=== PATIENT | male | born 1985 | race African-American/Black ===

== ENCOUNTER 2017-07-29 12:14 | Emergency (ER) | payer MEDICAID, SELFPAY ==
[2017-07-29 12:15] VITALS: BP 160/108; PULSE 73; RESP 16; TEMP 36.7; O2SAT 100; BMI 34.2
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
[2017-07-29] MEDS: Ondansetron 4 MG/2 ML Vial IV (13:17)
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
== END 2017-07-29 15:58 | disposition home or self-care (01) ==
PROVIDERS: Emergency Provider Emergency Medicine; Family Provider Student in an Organized Health Care Education/Training Program; PCP Student in an Organized Health Care Education/Training Program
DX: M25.562 Pain in left knee (principal); M25.572 Pain in left ankle and joints of left foot; M25.571 Pain in right ankle and joints of right foot; M54.9 Dorsalgia, unspecified; V13.4XXA Pedal cycle driver injured in collision with car, pick-up truck or van in traffic accident, initial encounter; Y93.9 Activity, unspecified; Y92.9 Unspecified place or not applicable
CPT/HCPCS: 70450; 72072; 72100; 72125; 73564; 73610; 96374; 96375; 99285; A4216; J2405

== ENCOUNTER 2017-07-30 16:57 | Emergency (ER) | payer MEDICAID, SELFPAY ==
[2017-07-30 16:58] VITALS: BP 157/84; PULSE 75; RESP 16; TEMP 36.2; O2SAT 100; BMI 34.2
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
[2017-07-30 18:11] VITALS: PULSE 102; RESP 18; O2SAT 99
== END 2017-07-30 18:12 | disposition home or self-care (01) ==
PROVIDERS: Emergency Provider Emergency Medicine; Family Provider Student in an Organized Health Care Education/Training Program; PCP Student in an Organized Health Care Education/Training Program
DX: R51 Headache (principal); M21.42 Flat foot [pes planus] (acquired), left foot; V13.4XXA Pedal cycle driver injured in collision with car, pick-up truck or van in traffic accident, initial encounter; Y93.9 Activity, unspecified; Y92.9 Unspecified place or not applicable
CPT/HCPCS: 99282

== ENCOUNTER 2017-08-11 08:48 | Outpatient (RCR) | payer MEDICAID, SELFPAY ==
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
== END 2017-08-11 19:00 | disposition home or self-care (01) ==
LOC: OT 08:48
PROVIDERS: Family Provider Student in an Organized Health Care Education/Training Program; PCP Student in an Organized Health Care Education/Training Program; Visit Provider Student in an Organized Health Care Education/Training Program
DX: M54.41 Lumbago with sciatica, right side (principal); M54.42 Lumbago with sciatica, left side; G89.29 Other chronic pain; M79.1 Myalgia
CPT/HCPCS: 97750

== ENCOUNTER 2017-09-04 12:04 | Emergency (ER) | payer MEDICAID, SELFPAY ==
[2017-09-04 12:05] VITALS: BP 157/95; PULSE 70; RESP 28; TEMP 36.6; O2SAT 100; BMI 34.7
[2017-09-04 12:15] LABS: Bedside Glucose 62 mg/dL (70-110)
[2017-09-04 13:15] VITALS: BP 131/76; PULSE 60; RESP 20
[2017-09-04 13:46] LABS: Bedside Glucose 115 mg/dL (70-110)
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
--- NOTE | 2017-09-04 13:55 | ED.DEP ---
ED Disposition - Plan for ED Patient: Chief Complaint: Hypoglycemia Instructions: ED Diabetes Hypoglycemia Insulin React Referrals: Ranjit Azar DO [Primary Care Provider] - 3-5 Days
[2017-09-04 14:04] VITALS: BP 131/85; PULSE 71; RESP 18
== END 2017-09-04 14:08 | disposition home or self-care (01) ==
PROVIDERS: Emergency Provider Emergency Medicine; Family Provider Student in an Organized Health Care Education/Training Program; PCP Student in an Organized Health Care Education/Training Program
DX: E11.649 Type 2 diabetes mellitus with hypoglycemia without coma (principal); T38.3X5A Adverse effect of insulin and oral hypoglycemic [antidiabetic] drugs, initial encounter; Y92.9 Unspecified place or not applicable; G40.909 Epilepsy, unspecified, not intractable, without status epilepticus; Z79.84 Long term (current) use of oral hypoglycemic drugs; Z79.4 Long term (current) use of insulin; Z79.899 Other long term (current) drug therapy
CPT/HCPCS: 82962; 99283

== ENCOUNTER 2017-09-09 20:04 | Emergency (ER) | payer MEDICAID, SELFPAY ==
[2017-09-09 20:05] VITALS: BP 162/99; PULSE 89; RESP 18; TEMP 36.4; O2SAT 99; BMI 34.0
--- NOTE | 2017-09-09 20:32 | EKG12_ITS ---
Test Reason : MENTAL CLEARANCE Blood Pressure : / mmHG Vent. Rate : 076 BPM Atrial Rate : 076 BPM P-R Int : 150 ms QRS Dur : 088 ms QT Int : 362 ms P-R-T Axes : 061 040 032 degrees QTc Int : 407 ms Normal sinus rhythm Normal ECG Confirmed by AVTAR JOSEPH, TRINIDAD ([id number]), general expeditor [employer] ([id number]) on 09/12/2017 8:47:34 AM Referred By: WARD Confirmed By:TRINIDAD NOVA MD
--- NOTE | 2017-09-09 20:56 | ED.VISSUMM ---
- ER Visit Summary Date of Service: 09/09/17 Chief Complaint: Suicidal/homicidal History of Present Illness: The patient is a 32 M who states that he is feeling homicidal towards his and now having thoughts that he can no longer handle his life. The patient states that his is heavily involved in drug use he himself does not do drugs. He feels he is at his breaking point. He states that he has been trying to get her help but she is not willing to help her self. He has been working with a counselor. He states he was hospitalized years ago following a mental breakdown. He states that he feels close to that. He called the police who brought him to the hospital. Physical Examination: Afebrile vital signs are stable Gen: Well-nourished well-developed Head: Normocephalic atraumatic Eyes: Perrl EOMI ENT: TMs clear no rhinorrhea moist mucous membranes Neck: Supple no lymphadenopathy no JVD nontender CVS: Regular rate rhythm no murmurs normal S1-S2 Respiratory: No distress clear to auscultation bilaterally chest nontender Abdomen: Soft nontender nondistended normal bowel sounds no masses Back: Nontender Extremity: Nontender no edema Skin: Normal color no rash Neuro: alert orientated ?3 CN II-XII intact normal strength sensation reflexes gait cerebellar Psych: Patient appears depressed. The patient expresses suicidal and homicidal ideation Test Results: CBC CMP TSH tox negative EKG sinus rhythm. Emergency Department Course and Treatment: Patient was cleared for crisis evaluation. They are here to assess the patient Impression: 1. Suicidal ideation 2. Homicidal ideation 3. Depression This note was generated with [employer] dictation software. It may contain incorrect words, spelling, and punctuation that were not noted in review of the chart prior to signing <Todd Taylor - Last Filed: 09/10/17 00:15> - ER Visit Summary Date of Service: 09/10/17 Chief Complaint: [] History of Present Illness: The patient is a 32 M [] Physical Examination: [] Test Results: [] Emergency Department Course and Treatment: Patient signed out to me [place] [facility] [place] [facility] patient is safe to go home. Safety contract was made. He does have an appointment with his counselor on , in addition he will follow-up with [facility]. He will return if any worsening symptoms. All questions were answered. Treatment Plan: [] Disposition: [] Impression: [] This note was generated with [employer] dictation software. It may contain incorrect words, spelling, and punctuation that were not noted in review of the chart prior to signing <Russ Frances - Last Filed: 09/10/17 03:42> ED Disposition <Todd Taylor - Last Filed: 09/10/17 00:15> <Russ Frances - Last Filed: 09/10/17 03:42> - Plan for ED Patient: Disposition: Home or Assisted Living Chief Complaint: Suicidal Diagnosis: Mental health evaluation Instructions: ED Contract, No Harm Referrals: Ranjit Azar DO [Primary Care Provider] - Additional Instructions: Follow-up as discussed with mental health counselor. Return if any worsening symptoms.
[2017-09-09 21:04] VITALS: RESP 16
[2017-09-09 21:06] LABS: Bedside Glucose 76 mg/dL (70-110)
[2017-09-09 21:30] LABS: AST(SGOT) 36 U/L (15-37); Alanine Aminotransfer ALT/SGPT 22 U/L (16-61); Albumin, Serum 3.8 g/dL (3.2-5.0); Alkaline Phosphatase 60 U/L (45-117); Anion Gap 9 (5-15); BUN 16 mg/dL (7-18); BUN/Creat Ratio 18.1 RATIO (10-20); Bilirubin, Direct 0.11 mg/dL (0.00-0.30); Calcium,Total 8.9 mg/dL (8.5-10.1); Chloride 111 mmol/L (98-107); Creatinine, Serum 0.88 mg/dL (0.70-1.30); EST Glomerular Filtration Rate 105 mL/min (>60); Est Glom Filt Rate - Afr Amer 127 mL/min (>60); Estimated Creatinine Clearance 102.89 ml/min; Globulin 4.4 g/dL (2.2-4.2); Glucose 76 mg/dL (74-106); Potassium 3.7 mmol/L (3.5-5.1); Protein, Total 8.2 g/dL (6.4-8.2); Sodium Level 146 mmol/L (136-145); Thyroid Stim Hormone (TSH) 0.86 uIU/mL (0.358-3.74)
[2017-09-09 21:33] LABS: Absolute Lymphocyte Count 1.79 X10^3/ul (0.83-4.51); Absolute Neutrophil Count 4.9 X10^3/uL (2.0-7.7); Basophil# 0.02 X10^3/uL; Basophil% 0.3 % (0-1); Eosinophil# 0.04 X10^3/uL; Eosinophils% 0.6 % (0-5); Hematocrit 40.9 % (40-54); Lymphocyte # 1.79 X10^3/ul (4.0); Lymphocyte % 25.4 % (19-41); Mean Corp Hgb Conc 31.8 g/gl (32-36); Mean Corpuscular Hgb 26.3 pg (27.0-32.0); Mean Corpuscular Volume 82.8 fL (80-94); Mean Platelet Vol. 9.9 fl (6.2-12.0); Monocyte# 0.31 X10^3/uL; Monocyte% 4.4 % (0-10); Neutrophil # 4.88 X10^3/uL (2.7-7.7); Neutrophil % 69.2 % (47-70); Platelet Count 232 K/mm3 (150-450); RBC Distribution Width CV 13.5 % (11.6-14.6); RBC Distribution Width SD 40.8 fl (35.1-43.9); Red Blood Count 4.94 M/mm3 (4.6-6.2); White Blood Count 7.1 K/mm3 (4.4-11.0)
[2017-09-09 21:35] LABS: POSITIVE COUNT NO; POSITIVE DIFFERENTIAL NO; POSITIVE MORPHOLOGY NO
[2017-09-09 22:00] VITALS: RESP 18
[2017-09-09 23:00] VITALS: RESP 16
[2017-09-10] VITALS: RESP 16
[2017-09-10 00:14] LABS: Amphetamine Urine VISTA NEGATIVE (<1000 ng/mL); Barbiturate Urine VISTA NEGATIVE (< 200 ng/mL); Benzodiazepine Urine VISTA NEGATIVE (< 200 ng/mL); Cocaine Urine VISTA NEGATIVE (< 300 ng/mL); Ecstacy Urine VISTA NEGATIVE (< 500 ng/mL); Methadone Urine VISTA NEGATIVE (< 300 ng/mL); PCP Urine VISTA NEGATIVE (< 25 ng/mL); THC Urine VISTA NEGATIVE (< 50 ng/mL); Vista UDS pH Range 6
[2017-09-10 01:00] VITALS: RESP 14
[2017-09-10 02:00] VITALS: RESP 14
[2017-09-10 02:41] VITALS: BP 147/104; PULSE 71; RESP 14; O2SAT 98
[2017-09-10 03:52] VITALS: RESP 18
== END 2017-09-10 03:53 | disposition home or self-care (01) ==
PROVIDERS: Emergency Provider Emergency Medicine; Family Provider Student in an Organized Health Care Education/Training Program; PCP Student in an Organized Health Care Education/Training Program
DX: R45.851 Suicidal ideations (principal); R45.850 Homicidal ideations; F32.9 Major depressive disorder, single episode, unspecified; J45.909 Unspecified asthma, uncomplicated; E11.9 Type 2 diabetes mellitus without complications; G43.909 Migraine, unspecified, not intractable, without status migrainosus; Z79.4 Long term (current) use of insulin; Z79.84 Long term (current) use of oral hypoglycemic drugs; Z79.899 Other long term (current) drug therapy
CPT/HCPCS: 36415; 80048; 80076; 80307; 80320; 82962; 84443; 85025; 93005; 99283; G0480

== ENCOUNTER 2017-09-26 08:54 | Emergency (ER) | payer MEDICAID, SELFPAY ==
[2017-09-26 08:55] VITALS: BP 137/108; PULSE 75; RESP 16; TEMP 36.4; O2SAT 100; BMI 31.7
[2017-09-26] MEDS: DiphenhydrAMINE 50 MG/ML Syringe 25 MG IV (09:40)
[2017-09-26] MEDS: proCHLORPERazine 10 MG/2 ML Vial IV (09:41)
--- NOTE | 2017-09-26 10:01 | ED.DCSUM_ITS ---
- ER Visit Summary Date of Service: 09/26/17 Chief Complaint: Headache History of Present Illness: The patient is a 32 M presenting with headache which started gradually yesterday. Patient has history of migraine headaches and states this feels similar. He has nausea and vomiting. Denies fever. He has photophobia. Denies recent injury. He is also concerned about possibility of STDs. He states his recently cheated on him. He has no symptoms of penile discharge, rash, or other complaints. Physical Examination: Vitals are stable. Patient is afebrile. Alert no acute distress. HEENT exam is unremarkable. Neck is supple, no meningismus Lungs are clear and equal bilaterally. Heart is regular rate and rhythm. Abdomen is soft nontender nondistended. Extremities are unremarkable. Skin is warm and dry. No focal neurologic deficit. Remainder of exam is unremarkable. Emergency Department Course and Treatment: Patient was given Compazine, Benadryl with improvement. Gonorrhea and chlamydia are negative. HIV is pending. These results will not return until tomorrow. On reevaluation, patient is resting comfortably. Advised to follow-up with primary care physician. Advised return to ED for worsening complaints. Disposition: Discharge home Impression: Headache This note was generated with [employer] dictation software. It may contain incorrect words, spelling, and punctuation that were not noted in review of the chart prior to signing ED Disposition - Plan for ED Patient: Chief Complaint: Headache Referrals: Ranjit Azar DO [Primary Care Provider] -
[2017-09-26 11:42] LABS: Chlamydia Trachomatis by PCR Negative (Negative); Neisserai gonorrhoeae by PCR Negative (Negative); Probe Check PASS; Sample Adequacy Control PASS; Specimen Processing Control PASS
[2017-09-26 11:52] VITALS: BP 127/107; PULSE 75; RESP 12; O2SAT 99
[2017-09-26 12:02] VITALS: BP 127/107; PULSE 75; RESP 12; O2SAT 99
--- NOTE | 2017-09-26 12:05 | ED.DEP ---
ED Disposition - Plan for ED Patient: Chief Complaint: Headache Instructions: ED Headache Migraine Referrals: Ranjit Azar DO [Primary Care Provider] -
[2017-09-27 10:25] LABS: HIV - WCH Non-Reactive (Nonreactive)
== END 2017-09-26 12:11 | disposition home or self-care (01) ==
PROVIDERS: Emergency Provider Emergency Medicine; Family Provider Student in an Organized Health Care Education/Training Program; PCP Student in an Organized Health Care Education/Training Program
DX: R51 Headache (principal); R11.2 Nausea with vomiting, unspecified; H53.149 Visual discomfort, unspecified; J45.909 Unspecified asthma, uncomplicated; E11.9 Type 2 diabetes mellitus without complications; G43.909 Migraine, unspecified, not intractable, without status migrainosus; G47.30 Sleep apnea, unspecified; G40.909 Epilepsy, unspecified, not intractable, without status epilepticus; Z79.84 Long term (current) use of oral hypoglycemic drugs; Z79.4 Long term (current) use of insulin; Z79.899 Other long term (current) drug therapy
CPT/HCPCS: 86703; 87491; 87591; 96374; 96375; 99285; J7030

== ENCOUNTER 2017-10-07 01:32 | Emergency (ER) | payer MEDICAID, SELFPAY ==
[2017-10-07] VITALS (7 sets, daily range): BP systolic 127–150; BP diastolic 59–106; PULSE 66–83; RESP 15–20; TEMP 36.7; O2SAT 98–99; BMI 35.6
--- NOTE | 2017-10-07 01:55 | ED.RN ---
THIS NURSE ALLOWED PT TO KEEP HIS LEFT SHOE WITH HIS BRACE AND CELL PHONE. ALL OTHER BELONGINGS REMOVED FROM ROOM
--- NOTE | 2017-10-07 02:05 | ED.RN ---
CALLED [facility]SEL[facility]. NASCAR DRIVER SAID SHE WILL NOTIFY
--- NOTE | 2017-10-07 02:24 | ED.RN ---
ELIZABETH FROM CRISIS CALLED. SHE STATED SHE JUST GOT TO [facility] TO START ON ANOTHER PATIENT. SHE WILL CALL WHEN SHE IS LEAVING THERE IF SHE CAN MAKE IT BEFORE HER SHIFT IS OVER TODAY.
--- NOTE | 2017-10-07 02:30 | ED.VIS.GEN ---
History of Present Illness Chief Complaint: Suicidal Informant: Patient Onset: Today Associated Symptoms: vomiting off and on when stressed and pissed off Narrative: Patient states he called crisis because he was having suicidal thoughts, but he will not elaborate on anything else. He states he was not happy with the conversation that he had with general house worker over the phone, and tells me I do not like talking to people who talk in circles. So he tells me that he hung up on her. She apparently called the police, who [place] slipped him to the ER. He denies any physical illness recently. - Past Medical History (1) Depression Status: Chronic (2) Seizure Status: Chronic (3) Asthma Status: Chronic Comment: With severe insulin resistance (4) HTN (hypertension) Status: Chronic Past Medical History - Allergies and Home Meds Allergies/Adverse Reactions: Allergies hydrocodone bitartrate [From Vicodin] Allergy (Verified 10/07/17 01:33) Hives strawberry Allergy (Verified 10/07/17 01:33) Hives acetaminophen Adverse Reaction (Verified 10/07/17 01:33) Nausea/hives baclofen Adverse Reaction (Verified 10/07/17 01:33) IT MAKES HIM LIGHTHEADED AND SICK lactose Adverse Reaction (Verified 10/07/17 01:33) Nausea Penicillins Adverse Reaction (Verified 10/07/17 01:33) Nausea COCONUT Allergy (Uncoded 10/07/17 01:33) Hives Home Medications: Home Medications Medication Instructions Recorded Albuterol IH (ProAir) [Proair Hfa] 2 puff INHALATION Q6H PRN PRN 10/22/14 Cholecalciferol (VIT D3) [Vitamin 50,000 unit PO QWEEK 10/22/14 D3] Divalproex Sodium [Depakote] 500 mg PO TID 10/22/14 Metformin HCl [Glucophage] 1,000 mg PO BIDCM 10/22/14 Lisinopril [Zestril] 20 mg PO DAILY 03/06/15 Insulin Aspart [Novolog Flexpen] 50 units SC TIDCM 11/12/15 Duloxetine Hcl [Cymbalta] 30 mg PO DAILY 02/29/16 Omeprazole [Prilosec] 20 mg PO BID 02/29/16 Pregabalin [Lyrica] 75 mg PO BID 02/29/16 Triamcinolone 0.025% Cream 1 applic TOPICAL TID 02/29/16 [Kenalog] Indomethacin [Indocin] 25 mg PO TIDCM 09/10/17 Insulin Degludec [Tresiba 150 unit SQ DAILY 09/10/17 Flextouch U-200] Liraglutide [Victoza 2-Zhao] 0.6 mg SQ DAILY 09/10/17 Nadolol 40 mg PO DAILY 09/10/17 Verapamil [Calan] 40 mg PO TID 09/10/17 Primary Care Physician: Ranjit Azar DO [Primary Care Provider] - Surgical History: tonsillectomy, - Smoking Status: Unknown if ever smoked Drugs: None - Family History Paternal Family History: Reports: Unknown Maternal Family History: Reports: Unknown Review of Systems All systems negative except as indicated Gastrointestinal: Reports: Vomiting Psych: Reports: Depression, Suicidal thoughts Physical Exam Vital Signs/Narrative: Vital Signs Temp Pulse Resp BP Pulse Ox 10/07/17 01:34 98.1 F 83 17 150/106 H 98 Inital Vital Signs reviewed: Yes General: Well nourished, Well developed, Obese - mildly Head: Normocephalic, Atraumatic Eyes: Perrl, EOMI ENT: Moist mucous membranes, No rhinorrhea Neck: Supple, Nontender Cardiovascular: Regular rate, Regular rhythm, No murmurs Respiratory: No distress, CTA bilaterally, Chest nontender Abdomen: Soft, Nontender, Nondistended, Normal bowel sounds Back: Nontender, Normal Inspection Extremities: Nontender, No edema Skin: Normal color, No rash. Negative for: Trauma Neurological: Alert, Oriented x3, Cranial nerves II-XII grossly intact, Normal Strength, Normal Sensation Psychological: - - flat affect. poor eye contact. paucity of speech. Diagnostic/Tx/Re-eval Laboratory Results 10/07/17 10/07/17 10/07/17 Range/Units 02:20 02:20 02:20 WBC 7.6 (4.4-11.0) K/mm3 RBC 4.96 (4.6-6.2) M/mm3 Hgb 13.3 (13.0-16.5) g/dl Hct 40.5 (40-54) % MCV 81.7 (80-94) fL MCH 26.8 L (27.0-32.0) pg MCHC 32.8 (32-36) g/gl RDW 13.2 (11.6-14.6) % RDW Differential 39.4 (35.1-43.9) fl Plt Count 227 (150-450) K/mm3 MPV 10.5 (6.2-12.0) fl Immature Gran % (Auto) 0.100 (0.0-0.9) % Neut % (Auto) 68.4 (47-70) % Lymph % (Auto) 23.6 (19-41) % Mcmullen % (Auto) 7.1 (0-10) % Eos % (Auto) 0.4 (0-5) % Baso % (Auto) 0.4 (0-1) % Absolute Neuts (auto) 5.2 (2.0-7.7) X10^3/uL Absolute Lymphs (auto) 1.79 (0.83-4.51) X10^3/ul Total Counted Not Reportable Sodium Cancelled Potassium Cancelled Chloride Cancelled Carbon Dioxide Cancelled Anion Gap Cancelled BUN Cancelled Creatinine Cancelled Estim Creat Clear Calc Cancelled Est GFR (MDRD) Af Amer Cancelled Est GFR (MDRD) Non-Af Cancelled BUN/Creatinine Ratio Cancelled Glucose Cancelled Calcium Cancelled Total Bilirubin Cancelled AST Cancelled ALT Cancelled Alkaline Phosphatase Cancelled Total Protein Cancelled Albumin Cancelled Globulin Cancelled Albumin/Globulin Ratio Cancelled Urine Opiates Screen (< 300 ng/mL) Urine Methadone Screen (< 300 ng/mL) Ur Barbiturates Screen (< 200 ng/mL) Ur Phencyclidine Scrn (< 25 ng/mL) Ur Amphetamines Screen (<1000 ng/mL) U Methamphetamin-MDMA (< 500 ng/mL) U Benzodiazepines Scrn (< 200 ng/mL) Urine Cocaine Screen (< 300 ng/mL) U Cannabinoids Screen (< 50 ng/mL) Ur Drug Screen Comment Ethyl Alcohol Cancelled 10/07/17 10/07/17 10/07/17 Range/Units 02:40 02:40 04:07 WBC (4.4-11.0) K/mm3 RBC (4.6-6.2) M/mm3 Hgb (13.0-16.5) g/dl Hct (40-54) % MCV (80-94) fL MCH (27.0-32.0) pg MCHC (32-36) g/gl RDW (11.6-14.6) % RDW Differential (35.1-43.9) fl Plt Count (150-450) K/mm3 MPV (6.2-12.0) fl Immature Gran % (Auto) (0.0-0.9) % Neut % (Auto) (47-70) % Lymph % (Auto) (19-41) % Mcmullen % (Auto) (0-10) % Eos % (Auto) (0-5) % Baso % (Auto) (0-1) % Absolute Neuts (auto) (2.0-7.7) X10^3/uL Absolute Lymphs (auto) (0.83-4.51) X10^3/ul Total Counted Sodium 140 Potassium 3.6 Chloride 106 Carbon Dioxide 27.0 Anion Gap 7 BUN 11 Creatinine 0.83 Estim Creat Clear Calc 109.09 Est GFR (MDRD) Af Amer 137 Est GFR (MDRD) Non-Af 113 BUN/Creatinine Ratio 13.3 Glucose 94 Calcium 8.6 Total Bilirubin 0.20 AST 45 H ALT 22 Alkaline Phosphatase 67 Total Protein 8.4 H Albumin 3.6 Globulin 4.8 H Albumin/Globulin Ratio 0.8 L Urine Opiates Screen NEGATIVE (< 300 ng/mL) Urine Methadone Screen NEGATIVE (< 300 ng/mL) Ur Barbiturates Screen NEGATIVE (< 200 ng/mL) Ur Phencyclidine Scrn NEGATIVE (< 25 ng/mL) Ur Amphetamines Screen NEGATIVE (<1000 ng/mL) U Methamphetamin-MDMA NEGATIVE (< 500 ng/mL) U Benzodiazepines Scrn NEGATIVE (< 200 ng/mL) Urine Cocaine Screen NEGATIVE (< 300 ng/mL) U Cannabinoids Screen NEGATIVE (< 50 ng/mL) Ur Drug Screen Comment Ethyl Alcohol 7.0 - Medical Decision Making Patient become somewhat agitated because he wanted to leave and was not allowed to. He was redirectable and did not require physical or chemical intervention. He is medically cleared for crisis evaluation. Crisis evaluated him and determine that given his threats of suicide and wanting to that he told both general house worker over the phone in the police, he is denying this now, however he is not reacting healthfully to the situation he is in, which is that his is a drug addict and brings other drug addicts into the house, and he does not want to leave her. She thinks that he needs to be pink slip to a psychiatric hospital, which is against the patient wishes because he does not think that is going to help the situation. I agree that this will help him, although it may not help his social situation. He is accepted to [place] by Dr. Pimentel, however under the pretense that we get a medically unnecessary acute valproic acid level. ED Disposition - Plan for ED Patient: Disposition: [facility] Chief Complaint: Suicidal Diagnosis: Suicidal ideation Referrals: Ranjit Azar DO [Primary Care Provider] -
[2017-10-07 02:31] LABS: Absolute Lymphocyte Count 1.79 X10^3/ul (0.83-4.51); Absolute Neutrophil Count 5.2 X10^3/uL (2.0-7.7); Basophil# 0.03 X10^3/uL; Basophil% 0.4 % (0-1); Eosinophil# 0.03 X10^3/uL; Eosinophils% 0.4 % (0-5); Hematocrit 40.5 % (40-54); Hemoglobin 13.3 g/dl (13.0-16.5); Lymphocyte # 1.79 X10^3/ul (4.0); Lymphocyte % 23.6 % (19-41); Mean Corp Hgb Conc 32.8 g/gl (32-36); Mean Corpuscular Hgb 26.8 pg (27.0-32.0); Mean Corpuscular Volume 81.7 fL (80-94); Mean Platelet Vol. 10.5 fl (6.2-12.0); Monocyte# 0.54 X10^3/uL; Monocyte% 7.1 % (0-10); Neutrophil # 5.18 X10^3/uL (2.7-7.7); Neutrophil % 68.4 % (47-70); Platelet Count 227 K/mm3 (150-450); RBC Distribution Width CV 13.2 % (11.6-14.6); RBC Distribution Width SD 39.4 fl (35.1-43.9); Red Blood Count 4.96 M/mm3 (4.6-6.2); White Blood Count 7.6 K/mm3 (4.4-11.0)
[2017-10-07 02:32] LABS: POSITIVE COUNT NO; POSITIVE DIFFERENTIAL NO; POSITIVE MORPHOLOGY NO
[2017-10-07 03:56] LABS: ALB/GLOB Ratio 0.8 RATIO (0.9-2.4); AST(SGOT) 45 U/L (15-37); Alanine Aminotransfer ALT/SGPT 22 U/L (16-61); Albumin, Serum 3.6 g/dL (3.2-5.0); Alkaline Phosphatase 67 U/L (45-117); Anion Gap 7 (5-15); BUN 11 mg/dL (7-18); BUN/Creat Ratio 13.3 RATIO (10-20); Calcium,Total 8.6 mg/dL (8.5-10.1); Chloride 106 mmol/L (98-107); Creatinine, Serum 0.83 mg/dL (0.70-1.30); EST Glomerular Filtration Rate 113 mL/min (>60); Est Glom Filt Rate - Afr Amer 137 mL/min (>60); Estimated Creatinine Clearance 109.09 ml/min; Globulin 4.8 g/dL (2.2-4.2); Glucose 94 mg/dL (74-106); Potassium 3.6 mmol/L (3.5-5.1); Protein, Total 8.4 g/dL (6.4-8.2); Sodium Level 140 mmol/L (136-145)
--- NOTE | 2017-10-07 04:29 | ED.RN ---
ELIZABETH FROM CRISIS CALLED. SHE STATED SHE IS LEAVING [facility] NOW TO COME SEE PT.
[2017-10-07 04:35] LABS: Amphetamine Urine VISTA NEGATIVE (<1000 ng/mL); Barbiturate Urine VISTA NEGATIVE (< 200 ng/mL); Benzodiazepine Urine VISTA NEGATIVE (< 200 ng/mL); Cocaine Urine VISTA NEGATIVE (< 300 ng/mL); Ecstacy Urine VISTA NEGATIVE (< 500 ng/mL); Methadone Urine VISTA NEGATIVE (< 300 ng/mL); PCP Urine VISTA NEGATIVE (< 25 ng/mL); THC Urine VISTA NEGATIVE (< 50 ng/mL); Vista UDS pH Range 7
--- NOTE | 2017-10-07 05:05 | ED.RN ---
ELIZABETH IS HERE TO SEE PTSabino
[2017-10-07 07:38] LABS: Valproic Acid (Depakene) Level 9 ug/mL (50-100)
--- NOTE | 2017-10-07 08:14 | ED.DEP ---
ED Disposition - Plan for ED Patient: Disposition: Home or Assisted Living Chief Complaint: Suicidal Diagnosis: Suicidal thoughts, Reaction, situational, acute, to stress Instructions: ED Contract, No Harm, ED Depression Referrals: Counseling,Center [GROUP OF PHYSICIANS] - As soon as possible
== END 2017-10-07 08:36 | disposition home or self-care (01) ==
PROVIDERS: Emergency Provider Emergency Medicine; Family Provider Student in an Organized Health Care Education/Training Program; PCP Student in an Organized Health Care Education/Training Program
DX: R45.851 Suicidal ideations (principal); R11.10 Vomiting, unspecified; F32.9 Major depressive disorder, single episode, unspecified; G40.909 Epilepsy, unspecified, not intractable, without status epilepticus; J45.909 Unspecified asthma, uncomplicated; I10 Essential (primary) hypertension; E66.9 Obesity, unspecified; Z79.84 Long term (current) use of oral hypoglycemic drugs; Z79.4 Long term (current) use of insulin; Z79.899 Other long term (current) drug therapy
CPT/HCPCS: 36415; 80053; 80164; 80307; 80320; 85025; 99285; G0480

== ENCOUNTER 2017-11-20 17:50 | Emergency (ER) | payer MEDICAID, SELFPAY ==
[2017-11-20 17:51] VITALS: BP 148/95; PULSE 111; RESP 16; TEMP 36.3; O2SAT 97; BMI 34.9
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
[2017-11-20 21:44] VITALS: BP 167/78; PULSE 74; RESP 16; O2SAT 97
== END 2017-11-20 21:47 | disposition home or self-care (01) ==
PROVIDERS: Emergency Provider Emergency Medicine; Family Provider Student in an Organized Health Care Education/Training Program; PCP Student in an Organized Health Care Education/Training Program
DX: S00.03XA Contusion of scalp, initial encounter (principal); R11.0 Nausea; R42 Dizziness and giddiness; R40.2410 Glasgow coma scale score 13-15, unspecified time; W22.8XXA Striking against or struck by other objects, initial encounter; Y93.9 Activity, unspecified; Y92.009 Unspecified place in unspecified non-institutional (private) residence as the place of occurrence of the external cause; J45.909 Unspecified asthma, uncomplicated; G40.909 Epilepsy, unspecified, not intractable, without status epilepticus; G43.909 Migraine, unspecified, not intractable, without status migrainosus; G47.33 Obstructive sleep apnea (adult) (pediatric); Z79.4 Long term (current) use of insulin; Z79.84 Long term (current) use of oral hypoglycemic drugs; Z79.899 Other long term (current) drug therapy
CPT/HCPCS: 70450; 99283

== ENCOUNTER 2017-12-03 18:11 | Emergency (ER) | payer MEDICAID, SELFPAY ==
[2017-12-03 18:13] VITALS: BP 158/103; PULSE 95; RESP 16; TEMP 36.8; O2SAT 100; BMI 34.2
[2017-12-03 18:26] LABS: Bedside Glucose 115 mg/dL (70-110)
--- NOTE | 2017-12-03 18:43 | ED.DCSUM_ITS ---
- ER Visit Summary Date of Service: 12/03/17 Chief Complaint: Wants blood sugar checks. History of Present Illness: The patient is a 32 M presenting wanting his blood sugar checked. Patient states he woke up this morning feeling dizzy, like his blood sugar was low. He was unable to find his glucometer. He went back to sleep. When he woke up he was still feeling dizzy. He took his metformin but did not take his insulin. He states he did not have a chance to eat today. Denies other complaints. Physical Examination: Vitals are stable. Patient is afebrile. Alert no acute distress. HEENT exam is unremarkable. Neck is supple. Lungs are clear and equal bilaterally. Heart is regular rate and rhythm. Abdomen is soft nontender nondistended. Extremities are unremarkable. Skin is warm and dry. No focal neurologic deficit. Remainder of exam is unremarkable. Emergency Department Course and Treatment: BGT 115. Patient is given IV fluids. He was given food in the emergency department. His repeat blood sugar was 122. He is feeling improved and is requesting to go home. Advised to follow-up with his primary care physician. Advised return to ED if worsening complaints. Disposition: Discharge home Impression: Dizziness, improved This note was generated with [employer] dictation software. It may contain incorrect words, spelling, and punctuation that were not noted in review of the chart prior to signing ED Disposition - Plan for ED Patient: Chief Complaint: General Illness Instructions: Hypoglycemia (Low Blood Sugar) Referrals: Ranjit Azar DO [Primary Care Provider] -
[2017-12-03 19:39] LABS: Anion Gap 6 (5-15); BUN 9 mg/dL (7-18); Calcium,Total 9.2 mg/dL (8.5-10.1); Chloride 106 mmol/L (98-107); EST Glomerular Filtration Rate 103 mL/min (>60); Est Glom Filt Rate - Afr Amer 124 mL/min (>60); Glucose 107 mg/dL (74-106); Potassium 3.7 mmol/L (3.5-5.1); Sodium Level 137 mmol/L (136-145)
--- NOTE | 2017-12-03 19:41 | ED.RN ---
pt reports intermittent dizziness at home, and reports falling at home from standing position. denies loc. reports intermittent dizziness. i think it is my blood sugar.
--- NOTE | 2017-12-03 19:55 | ED.DEP ---
ED Disposition - Plan for ED Patient: Chief Complaint: General Illness Instructions: Hypoglycemia (Low Blood Sugar) Referrals: Ranjit Azar DO [Primary Care Provider] -
[2017-12-03 20:29] VITALS: BP 147/99; PULSE 80; RESP 14; O2SAT 99
[2017-12-03 20:36] LABS: Bedside Glucose 122 mg/dL (70-110)
[2017-12-03 20:55] VITALS: BP 147/99; PULSE 78; RESP 17; O2SAT 99
== END 2017-12-03 20:56 | disposition home or self-care (01) ==
PROVIDERS: Emergency Provider Emergency Medicine; Family Provider Student in an Organized Health Care Education/Training Program; PCP Student in an Organized Health Care Education/Training Program
DX: R42 Dizziness and giddiness (principal); J45.909 Unspecified asthma, uncomplicated; K21.9 Gastro-esophageal reflux disease without esophagitis; E11.9 Type 2 diabetes mellitus without complications; I10 Essential (primary) hypertension; F32.9 Major depressive disorder, single episode, unspecified; G40.909 Epilepsy, unspecified, not intractable, without status epilepticus; Z79.84 Long term (current) use of oral hypoglycemic drugs; Z79.4 Long term (current) use of insulin; Z79.899 Other long term (current) drug therapy
CPT/HCPCS: 80048; 82962; 99283; J7030; J7040; A4216

== ENCOUNTER 2017-12-25 10:14 | Emergency (ER) | payer MEDICAID, SELFPAY ==
[2017-12-25 10:15] VITALS: BP 136/93; PULSE 105; RESP 18; TEMP 36.8; O2SAT 99; BMI 34.5
[2017-12-25] MEDS: Ketorolac 60 MG/2 ML Vial IM (11:13)
[2017-12-25 11:15] LABS: Bedside Glucose 110 mg/dL (70-110)
[2017-12-25 11:26] LABS: Anion Gap 6 (5-15); BUN 10 mg/dL (7-18); BUN/Creat Ratio 11.2 RATIO (10-20); Calcium,Total 9.6 mg/dL (8.5-10.1); Chloride 108 mmol/L (98-107); Creatinine, Serum 0.89 mg/dL (0.70-1.30); EST Glomerular Filtration Rate 104 mL/min (>60); Est Glom Filt Rate - Afr Amer 125 mL/min (>60); Estimated Creatinine Clearance 101.73 ml/min; Glucose 109 mg/dL (74-106); Sodium Level 138 mmol/L (136-145)
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
[2017-12-25 13:00] LABS: Valproic Acid (Depakene) Level 7 ug/mL (50-100)
--- NOTE | 2017-12-25 13:41 | CM.ED ---
Social Work Note Referral from physician and RN for concern with living situation. Introduced self and role to pt. Pt report to live in a privately owned home with his , and then two of their friends. Actively listened to pt vent for over an hour regarding his marriage, work, and health. Engaged pt in Strengths Perspective to identify positive attributes for confidence building. Pt is established with a counselor at the counseling center and has an appointment this afternoon at 1730 with Libia Rodriguez. Pt reports that he used to have a correctional counselor/case manager, but does not any longer. Expresses concern with transportation needs and educate to correctional counselor/case managermanager drug through [facility] as well as the voucher program at [place]. Pt denies SI or HI or any active plan. Support provided. No further needs. Placed call to [facility] and requested that case management be established for assistance. Jennifer Batres, BIOMEDICAL SPECIALIST, [employer]ER
[2017-12-25 14:01] VITALS: BP 147/94
== END 2017-12-25 14:02 | disposition home or self-care (01) ==
PROVIDERS: Emergency Provider Emergency Medicine; Family Provider Student in an Organized Health Care Education/Training Program; PCP Student in an Organized Health Care Education/Training Program
DX: R51 Headache (principal); F32.9 Major depressive disorder, single episode, unspecified; F41.9 Anxiety disorder, unspecified; E11.9 Type 2 diabetes mellitus without complications; I10 Essential (primary) hypertension; G40.909 Epilepsy, unspecified, not intractable, without status epilepticus; Z79.4 Long term (current) use of insulin; Z79.84 Long term (current) use of oral hypoglycemic drugs; Z79.899 Other long term (current) drug therapy; Z72.0 Tobacco use
CPT/HCPCS: 36415; 80048; 80164; 82962; 96372; 99283

== ENCOUNTER 2018-01-03 09:12 | Emergency (ER) | payer MEDICAID, SELFPAY ==
[2018-01-03 09:13] VITALS: BP 157/94; PULSE 101; RESP 15; TEMP 36.6; O2SAT 100; BMI 37.0
--- NOTE | 2018-01-03 09:50 | RAD_ITS ---
STUDY: X-RAY CHEST REASON FOR EXAM: Male, 32 years old. Syncopal episode. TECHNIQUE: AP and lateral views of the chest. COMPARISON: Comparison is made with prior study dated February 23, 2016. FINDINGS: EKG electrodes are seen. The lungs are clear and expanded. There is no demonstrated pleural abnormality. Normal size heart. Normal mediastinum and alanis. Normal visualized pulmonary arteries. Normal visualized aortic arch and descending thoracic aorta. There are mild degenerative changes of the visualized thoracic spine. Normal visualized ribs, clavicles, and shoulders. There is no demonstrated abnormality of the visualized soft tissue structures of the upper abdomen. RAD/Chest PA and Lateral IMPRESSION: Normal x-ray examination of the chest. Electronically Signed: Florentin Quan MD at 11:22 EDT Tel [phone], Service support ,
--- NOTE | 2018-01-03 09:50 | EKG12_ITS ---
Test Reason : GEN ILLNESS Blood Pressure : / mmHG Vent. Rate : 077 BPM Atrial Rate : 077 BPM P-R Int : 148 ms QRS Dur : 096 ms QT Int : 374 ms P-R-T Axes : 051 039 032 degrees QTc Int : 423 ms Sinus rhythm with marked sinus arrhythmia Otherwise normal ECG Confirmed by SHUBHAM JOSEPH, DAO ([id number]), greeting card editor [employer] ([id number]) on 01/08/2018 1:42:44 PM Referred By: KEVEN Confirmed By:DAO JALLOH MD
[2018-01-03 10:41] LABS: Bacteria 0 SEEN /hpf (None Seen); Mucous, Urine 0 SEEN /hpf (<or=2+); Red Blood Cells-Urine 0 SEEN /hpf (0-5); Squamous Epithelial Cells - UA 0 SEEN /hpf (0-5); White Blood Cells 0 SEEN /hpf (0-5)
[2018-01-03 10:44] LABS: Color, Urine Yellow (Yellow); Glucose, Dipstick 1000 mg/dl (Normal); Ketone-Dipstick 15 mg/dl (Negative); Leukocyte Esterase-Dipstick Negative /ul (Negative); Nitrite-Dipstick Negative (Negative); Occult Blood-Urine Negative /ul (Negative); Protein-Dipstick 30 mg/dl (Negative); Urine Bilirubin Dipstick Negative (Negative); Urine Clarity Clear (Clear); Urine Urobilinogen Normal (Normal)
[2018-01-03] MEDS: Ondansetron 4 MG/2 ML Vial IV (10:52)
[2018-01-03] MEDS: 0.9% Normal Saline 1,000 ML 1000 ML IV (10:52)
[2018-01-03 10:57] LABS: Absolute Lymphocyte Count 1.39 X10^3/ul (0.83-4.51); Absolute Neutrophil Count 6.9 X10^3/uL (2.0-7.7); Basophil# 0.02 X10^3/uL; Basophil% 0.2 % (0-1); Hemoglobin 12.2 g/dl (13.0-16.5); Lymphocyte # 1.39 X10^3/ul (4.0); Lymphocyte % 16.3 % (19-41); Mean Corp Hgb Conc 32.1 g/gl (32-36); Mean Corpuscular Hgb 26.9 pg (27.0-32.0); Mean Corpuscular Volume 83.9 fL (80-94); Monocyte# 0.29 X10^3/uL; Monocyte% 3.4 % (0-10); Neutrophil # 6.85 X10^3/uL (2.7-7.7); Neutrophil % 80.1 % (47-70); POSITIVE COUNT NO; POSITIVE DIFFERENTIAL NO; POSITIVE MORPHOLOGY NO; Platelet Count 201 K/mm3 (150-450); RBC Distribution Width SD 39.6 fl (35.1-43.9); Red Blood Count 4.53 M/mm3 (4.6-6.2); White Blood Count 8.6 K/mm3 (4.4-11.0)
[2018-01-03 11:16] LABS: Anion Gap 8 (5-15); BUN 10 mg/dL (7-18); BUN/Creat Ratio 10.5 RATIO (10-20); Chloride 105 mmol/L (98-107); Creatinine, Serum 0.95 mg/dL (0.70-1.30); EST Glomerular Filtration Rate 96 mL/min (>60); Est Glom Filt Rate - Afr Amer 116 mL/min (>60); Estimated Creatinine Clearance 95.31 ml/min; Glucose 151 mg/dL (74-106); Potassium 4.1 mmol/L (3.5-5.1); Sodium Level 142 mmol/L (136-145)
[2018-01-03 11:22] VITALS: BP 137/86; PULSE 75; RESP 30; O2SAT 98
--- NOTE | 2018-01-03 11:28 | ED.VISSUMM ---
- ER Visit Summary Date of Service: 01/03/18 Chief Complaint: Multiple complaints History of Present Illness: The patient is a 32 M who presents with chief complaint of I am falling apart. It is difficult to ascertain what exactly brought him in today. He complains of chronic back pain. He complains of bilateral feet tingling for many months. He states he did feel short of breath earlier this morning but that this improved with an inhaler. He had some nausea and vomiting this morning as well. He denies fevers or chest pain. He denies recent illness. He was at work today and states that he just could not continue to work so they advised him to go get checked out. Physical Examination: Afebrile initial heart rate 1 1 vitals otherwise normal Heart regular slightly tachycardic Lungs are clear Abdomen soft Alert Test Results: EKG shows sinus rhythm at a rate of 77. Chest x-ray normal. Labs notable for hemoglobin 12.2, glucose 151, anion gap is normal. Urinalysis shows glucose otherwise normal. Emergency Department Course and Treatment: Patient was treated with IV fluids. On reevaluation he is resting comfortably. He presents with multiple chronic problems. His larger concern is the tingling in his feet. I advised that given that this been going on for many months and he is diabetic I suspect it is related to peripheral neuropathy. He states he has not seen his primary care physician for this. I advised that he follow-up with his primary care physician as soon as possible. He understands return for new or worsening symptoms. He was discharged. Treatment Plan: [] Disposition: Discharge Impression: Peripheral neuropathy Vomiting Shortness of breath This note was generated with [employer] dictation software. It may contain incorrect words, spelling, and punctuation that were not noted in review of the chart prior to signing ED Disposition - Plan for ED Patient: Chief Complaint: General Illness Referrals: Ranjit Azar DO [Primary Care Provider] -
--- NOTE | 2018-01-03 11:30 | ED.DEP ---
ED Disposition - Plan for ED Patient: Chief Complaint: General Illness Instructions: ED Neuropathy Peripheral, ED Nausea Vomiting Referrals: Ranjit Azar DO [Primary Care Provider] -
[2018-01-03 11:41] VITALS: BP 137/86; PULSE 64; RESP 18; O2SAT 99
== END 2018-01-03 11:41 | disposition home or self-care (01) ==
PROVIDERS: Emergency Provider Emergency Medicine; Family Provider Student in an Organized Health Care Education/Training Program; PCP Student in an Organized Health Care Education/Training Program
DX: E11.42 Type 2 diabetes mellitus with diabetic polyneuropathy (principal); R11.2 Nausea with vomiting, unspecified; R06.00 Dyspnea, unspecified; M54.9 Dorsalgia, unspecified; G89.29 Other chronic pain; I10 Essential (primary) hypertension; G40.909 Epilepsy, unspecified, not intractable, without status epilepticus; Z79.4 Long term (current) use of insulin; Z79.84 Long term (current) use of oral hypoglycemic drugs; Z79.899 Other long term (current) drug therapy
CPT/HCPCS: 71046; 80048; 81001; 85025; 93005; 96361; 96374; 99285; J7030; J2405

== ENCOUNTER 2018-01-11 11:15 | Emergency (ER) | payer MEDICAID, SELFPAY ==
[2018-01-11 11:16] VITALS: BP 143/101; PULSE 85; RESP 16; TEMP 36.6; O2SAT 100; BMI 34.2
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
[2018-01-11 12:02] LABS: Absolute Lymphocyte Count 1.73 X10^3/ul (0.83-4.51); Absolute Neutrophil Count 3.1 X10^3/uL (2.0-7.7); Basophil# 0.02 X10^3/uL; Basophil% 0.4 % (0-1); Eosinophil# 0.02 X10^3/uL; Eosinophils% 0.4 % (0-5); Hematocrit 36.5 % (40-54); Hemoglobin 11.8 g/dl (13.0-16.5); Lymphocyte # 1.73 X10^3/ul (4.0); Lymphocyte % 33.5 % (19-41); Mean Corp Hgb Conc 32.3 g/gl (32-36); Mean Corpuscular Hgb 26.9 pg (27.0-32.0); Mean Corpuscular Volume 83.1 fL (80-94); Mean Platelet Vol. 10.7 fl (6.2-12.0); Monocyte# 0.27 X10^3/uL; Monocyte% 5.2 % (0-10); Neutrophil # 3.13 X10^3/uL (2.7-7.7); Neutrophil % 60.5 % (47-70); Platelet Count 225 K/mm3 (150-450); RBC Distribution Width CV 13.1 % (11.6-14.6); Red Blood Count 4.39 M/mm3 (4.6-6.2); White Blood Count 5.2 K/mm3 (4.4-11.0)
[2018-01-11 12:08] LABS: POSITIVE COUNT NO; POSITIVE DIFFERENTIAL NO; POSITIVE MORPHOLOGY NO
[2018-01-11 12:13] LABS: Anion Gap 11 (5-15); BUN 10 mg/dL (7-18); BUN/Creat Ratio 11.2 RATIO (10-20); Calcium,Total 8.8 mg/dL (8.5-10.1); Chloride 107 mmol/L (98-107); Creatinine, Serum 0.89 mg/dL (0.70-1.30); EST Glomerular Filtration Rate 104 mL/min (>60); Est Glom Filt Rate - Afr Amer 126 mL/min (>60); Estimated Creatinine Clearance 101.73 ml/min; Glucose 101 mg/dL (74-106); Potassium 3.5 mmol/L (3.5-5.1); Sodium Level 142 mmol/L (136-145)
[2018-01-11 12:28] LABS: Alcohol, Blood (Medical)-Serum < 3.0 mg/dL
[2018-01-11 12:29] LABS: Amphetamine Urine VISTA NEGATIVE (<1000 ng/mL); Barbiturate Urine VISTA NEGATIVE (< 200 ng/mL); Benzodiazepine Urine VISTA NEGATIVE (< 200 ng/mL); Cocaine Urine VISTA NEGATIVE (< 300 ng/mL); Ecstacy Urine VISTA NEGATIVE (< 500 ng/mL); Methadone Urine VISTA NEGATIVE (< 300 ng/mL); PCP Urine VISTA NEGATIVE (< 25 ng/mL); THC Urine VISTA NEGATIVE (< 50 ng/mL); Vista UDS pH Range 7
[2018-01-11 14:17] VITALS: BP 166/97; PULSE 62; RESP 16; O2SAT 100
[2018-01-11 17:26] VITALS: BP 148/95; PULSE 65; RESP 18; O2SAT 100
== END 2018-01-11 20:05 ==
PROVIDERS: Emergency Provider Emergency Medicine; Family Provider Student in an Organized Health Care Education/Training Program; PCP Student in an Organized Health Care Education/Training Program
DX: R45.851 Suicidal ideations (principal); G40.909 Epilepsy, unspecified, not intractable, without status epilepticus; F41.9 Anxiety disorder, unspecified; F32.9 Major depressive disorder, single episode, unspecified; S80.811A Abrasion, right lower leg, initial encounter; X58.XXXA Exposure to other specified factors, initial encounter; Y93.9 Activity, unspecified; Y92.9 Unspecified place or not applicable; Z79.899 Other long term (current) drug therapy
CPT/HCPCS: 36415; 80048; 80307; 80320; 85025; 99283; G0480

== ENCOUNTER 2018-01-25 23:59 | Emergency (ER) | payer MEDICAID, SELFPAY ==
[2018-01-26 00:01] VITALS: BP 158/114; PULSE 100; RESP 16; TEMP 36.3; O2SAT 100; BMI 36.7
[2018-01-26] MEDS: 0.9% Normal Saline 1,000 ML 150 ML IV (01:08)
[2018-01-26] MEDS: Ondansetron 4 MG/2 ML Vial IV (01:08)
[2018-01-26] MEDS: Cefazolin 1 GM/50 ML BAG IV (01:10)
[2018-01-26] MEDS: Morphine 4 MG/ML Syringe IV (01:11)
[2018-01-26 01:12] LABS: Absolute Lymphocyte Count 1.93 X10^3/ul (0.83-4.51); Absolute Neutrophil Count 5.7 X10^3/uL (2.0-7.7); Basophil# 0.05 X10^3/uL; Basophil% 0.6 % (0-1); Eosinophil# 0.08 X10^3/uL; Hematocrit 39.3 % (40-54); Hemoglobin 13.2 g/dl (13.0-16.5); Lymphocyte # 1.93 X10^3/ul (4.0); Lymphocyte % 23.1 % (19-41); Mean Corp Hgb Conc 33.6 g/gl (32-36); Mean Corpuscular Hgb 27.7 pg (27.0-32.0); Mean Corpuscular Volume 82.6 fL (80-94); Mean Platelet Vol. 10.6 fl (6.2-12.0); Monocyte# 0.65 X10^3/uL; Monocyte% 7.8 % (0-10); Neutrophil # 5.65 X10^3/uL (2.7-7.7); Neutrophil % 67.4 % (47-70); Platelet Count 238 K/mm3 (150-450); RBC Distribution Width CV 12.6 % (11.6-14.6); RBC Distribution Width SD 37.9 fl (35.1-43.9); Red Blood Count 4.76 M/mm3 (4.6-6.2); White Blood Count 8.4 K/mm3 (4.4-11.0)
[2018-01-26 01:13] LABS: POSITIVE COUNT NO; POSITIVE DIFFERENTIAL NO; POSITIVE MORPHOLOGY NO
[2018-01-26 01:22] LABS: Anion Gap 9 (5-15); BUN 13 mg/dL (7-18); BUN/Creat Ratio 12.4 RATIO (10-20); Calcium,Total 9.1 mg/dL (8.5-10.1); Chloride 107 mmol/L (98-107); Creatinine, Serum 1.05 mg/dL (0.70-1.30); EST Glomerular Filtration Rate 86 mL/min (>60); Est Glom Filt Rate - Afr Amer 104 mL/min (>60); Estimated Creatinine Clearance 86.23 ml/min; Glucose 129 mg/dL (74-106); Sodium Level 141 mmol/L (136-145)
[2018-01-26 02:02] VITALS: BP 171/108; PULSE 88; RESP 16; TEMP 36.3; O2SAT 98
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
[2018-01-26 02:19] VITALS: RESP 16
== END 2018-01-26 03:02 | disposition short-term general hospital (02) ==
LOC: ED 01-26 00:41
PROVIDERS: Emergency Provider Emergency Medicine; Family Provider Student in an Organized Health Care Education/Training Program; PCP Student in an Organized Health Care Education/Training Program
DX: S02.609A Fracture of mandible, unspecified, initial encounter for closed fracture (principal); S02.5XXA Fracture of tooth (traumatic), initial encounter for closed fracture; Y04.2XXA Assault by strike against or bumped into by another person, initial encounter; Y93.9 Activity, unspecified; Y92.9 Unspecified place or not applicable; E11.9 Type 2 diabetes mellitus without complications; I10 Essential (primary) hypertension; Z79.4 Long term (current) use of insulin; Z79.84 Long term (current) use of oral hypoglycemic drugs; Z79.899 Other long term (current) drug therapy
CPT/HCPCS: 70486; 80048; 85025; 96361; 96365; 96375; 99285; J7030; J2405

== ENCOUNTER 2018-02-05 15:08 | Emergency (ER) | payer MEDICAID, SELFPAY ==
[2018-02-05 15:10] VITALS: BP 150/91; PULSE 100; RESP 18; TEMP 36.6; O2SAT 97; BMI 33.7
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
--- NOTE | 2018-02-05 15:59 | ED.DEP ---
ED Disposition - Plan for ED Patient: Disposition: Home or Assisted Living Chief Complaint: Dental Instructions: ED Fx Mandible Prescriptions: Oxycodone Soln [Oxyfast] 5 mg PO Q6H PRN PRN #5 ml PRN Reason: Pain Referrals: Ranjit Azar DO [Primary Care Provider] -
== END 2018-02-05 16:24 | disposition home or self-care (01) ==
PROVIDERS: Emergency Provider Emergency Medicine; Family Provider Student in an Organized Health Care Education/Training Program; PCP Student in an Organized Health Care Education/Training Program
DX: K13.79 Other lesions of oral mucosa (principal); Z98.890 Other specified postprocedural states; J45.909 Unspecified asthma, uncomplicated; G43.909 Migraine, unspecified, not intractable, without status migrainosus; G47.33 Obstructive sleep apnea (adult) (pediatric); G40.909 Epilepsy, unspecified, not intractable, without status epilepticus; Z86.2 Personal history of diseases of the blood and blood-forming organs and certain disorders involving the immune mechanism; Z79.899 Other long term (current) drug therapy
CPT/HCPCS: 99282

== ENCOUNTER 2018-02-17 16:26 | Emergency (ER) | payer MEDICAID, SELFPAY ==
[2018-02-17 16:26] VITALS: BP 160/96; PULSE 99; RESP 14; TEMP 37.2; O2SAT 98; BMI 34.9
--- NOTE | 2018-02-17 17:15 | CT_ITS ---
STUDY: CT SOFT TISSUE NECK WITH CONTRAST REASON FOR EXAM: Male, 32 years old. Right jaw abscess status post surgery. RADIATION DOSAGE (If Supplied By Facility): CTDIvol = ( 18.95 ) mGy, DLP = ( 548.92 ) mGycm TECHNIQUE: The patient was scanned in a multi-detector CT scanner. High resolution transaxial imaging was performed following intravenous administration of 100 ml of Isovue 300 contrast material. Sagittal and coronal images were reconstructed. Individualized dose optimization techniques were used for this CT. COMPARISON: None. FINDINGS: There is moderate subcutaneous edema about the mandible bilaterally and in the submandibular region. Findings are consistent with recent surgery and/or cellulitis. There is no organized collection. The patient is status post internal fixation of the mandible. Fracture lines are identified. Alignment is anatomic. Normal bilateral parotid glands. Normal bilateral parapharyngeal spaces. Normal bilateral carotid spaces. Normal visualized nasopharynx. Normal retropharyngeal space. Normal perivertebral space. Normal visualized bilateral faucial tonsils. The visualized tongue, tongue base and oropharynx are normal. The visualized cervical lymph nodes (levels I-) are within normal size limits, and maintain normal morphology. There is no demonstrated solid or cystic mass lesion. There is no abnormal contrast enhancement. Normal epiglottis, bilateral vallecula and hypopharynx. The pre-epiglottic and paraglottic adipose spaces are normal. Normal visualized bilateral piriform sinuses, aryepiglottic folds, vocal cords, and arytenoid-cricoid articulations. Normal subglottic trachea. Normal bilateral lobes of the thyroid gland. Normal visualized pulmonary apices. Normal visualized paranasal sinuses. Normal visualized cervical spine. CT/Soft Tissue Neck WITH Contrast IMPRESSION: 1. Moderate subcutaneous soft tissue swelling about the mandible and in the submandibular region consistent with recent surgery. No drainable abscess. Electronically Signed: Mariam Rowe MD at 19:44 EDT Tel , Service support ,
[2018-02-17 17:35] LABS: Absolute Lymphocyte Count 1.94 X10^3/ul (0.83-4.51); Absolute Neutrophil Count 3.8 X10^3/uL (2.0-7.7); Basophil# 0.04 X10^3/uL; Basophil% 0.6 % (0-1); Eosinophil# 0.08 X10^3/uL; Eosinophils% 1.3 % (0-5); Hematocrit 34.6 % (40-54); Hemoglobin 11.2 g/dl (13.0-16.5); Lymphocyte # 1.94 X10^3/ul (4.0); Lymphocyte % 30.8 % (19-41); Mean Corp Hgb Conc 32.4 g/gl (32-36); Mean Corpuscular Hgb 26.6 pg (27.0-32.0); Mean Corpuscular Volume 82.2 fL (80-94); Monocyte# 0.46 X10^3/uL; Monocyte% 7.3 % (0-10); Neutrophil # 3.78 X10^3/uL (2.7-7.7); Platelet Count 248 K/mm3 (150-450); RBC Distribution Width CV 13.2 % (11.6-14.6); RBC Distribution Width SD 40.1 fl (35.1-43.9); Red Blood Count 4.21 M/mm3 (4.6-6.2); White Blood Count 6.3 K/mm3 (4.4-11.0)
[2018-02-17 17:38] LABS: Differential Indicated SCAN CRITERIA MET; POSITIVE COUNT NO; POSITIVE DIFFERENTIAL NO; POSITIVE MORPHOLOGY YES
[2018-02-17 17:44] LABS: Anion Gap 8 (5-15); BUN 8 mg/dL (7-18); BUN/Creat Ratio 9.5 RATIO (10-20); Calcium,Total 8.8 mg/dL (8.5-10.1); Chloride 104 mmol/L (98-107); Creatinine, Serum 0.84 mg/dL (0.70-1.30); EST Glomerular Filtration Rate 110 mL/min (>60); Est Glom Filt Rate - Afr Amer 134 mL/min (>60); Estimated Creatinine Clearance 107.79 ml/min; Glucose 110 mg/dL (74-106); Potassium 3.7 mmol/L (3.5-5.1); Sodium Level 139 mmol/L (136-145)
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
[2018-02-17 18:00] LABS: Differential Comment SCANNED
[2018-02-17 21:19] VITALS: BP 166/108; PULSE 73; RESP 17; O2SAT 100
[2018-02-17 21:26] LABS: Valproic Acid (Depakene) Level 74 ug/mL (50-100)
--- NOTE | 2018-02-17 23:14 | ED.DEP ---
ED Disposition - Plan for ED Patient: Chief Complaint: Dental Instructions: ED Cellulitis Facial Prescriptions: Clindamycin [Cleocin] 300 mg PO 4X/DAY #80 capsule Referrals: Ranjit Azar DO [Primary Care Provider] - Gama Ludwig MD [NON-STAFF] -
--- NOTE | 2018-02-17 23:30 | ED.RN ---
DC INSTRUCTIONS NOW AVAILABLE.
== END 2018-02-17 23:42 | disposition home or self-care (01) ==
LOC: ED 16:56
PROVIDERS: Emergency Provider Emergency Medicine; Family Provider Student in an Organized Health Care Education/Training Program; PCP Student in an Organized Health Care Education/Training Program
DX: L03.211 Cellulitis of face (principal); Z98.890 Other specified postprocedural states; J45.909 Unspecified asthma, uncomplicated; G40.909 Epilepsy, unspecified, not intractable, without status epilepticus; Z79.4 Long term (current) use of insulin; Z79.84 Long term (current) use of oral hypoglycemic drugs; Z79.899 Other long term (current) drug therapy
CPT/HCPCS: 70491; 80048; 80164; 85025; 96365; 99284; J7030; Q9967; A4216

== ENCOUNTER 2018-02-23 13:31 | Emergency (ER) | payer MEDICAID, SELFPAY ==
[2018-02-23 13:32] VITALS: BP 158/94; PULSE 127; RESP 15; TEMP 37; BMI 34.9
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
[2018-02-23] MEDS: oxyCODONE 5 MG Tablet PO (14:15)
[2018-02-23 14:17] VITALS: BP 136/91; PULSE 99; RESP 18; O2SAT 96
== END 2018-02-23 14:19 | disposition home or self-care (01) ==
LOC: ED 14:01
PROVIDERS: Emergency Provider Emergency Medicine; Family Provider Student in an Organized Health Care Education/Training Program; PCP Student in an Organized Health Care Education/Training Program
DX: R51 Headache (principal); Z98.890 Other specified postprocedural states; J45.909 Unspecified asthma, uncomplicated; G40.909 Epilepsy, unspecified, not intractable, without status epilepticus; G43.909 Migraine, unspecified, not intractable, without status migrainosus; Z79.899 Other long term (current) drug therapy; Z72.0 Tobacco use
CPT/HCPCS: 99282

== ENCOUNTER 2018-02-24 11:41 | Emergency (ER) | payer MEDICAID, SELFPAY ==
[2018-02-24 11:43] VITALS: BP 128/109; PULSE 101; RESP 18; TEMP 36.6; O2SAT 98; BMI 34.2
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
--- NOTE | 2018-02-24 15:23 | NURSING ---
FAXED FACESHEET TO [id number]
--- NOTE | 2018-02-24 15:23 | NURSING ---
CALLED [facility], THEY HAVE PAGED SURGEON
[2018-02-24 15:33] VITALS: BP 128/89; PULSE 79; RESP 18; O2SAT 97
--- NOTE | 2018-02-24 16:01 | ED.VISSUMM ---
- ER Visit Summary Date of Service: 02/24/18 Chief Complaint: Facial swelling History of Present Illness: The patient is a 32 M who presents with facial swelling. He had surgery for jaw fracture at [facility] on January 28. He has had multiple recent ER visits. He was diagnosed with facial cellulitis. He saw his surgeon on February 22. He was scheduled to have the wires removed but had no one to pick him up so the surgery was delayed. He states that his swelling markedly worsened today. He states it is difficult to talk. Physical Examination: Afebrile vitals are stable Patient does have some trismus and left submandibular and submental swelling and induration he has purulent drainage from a wound on the right side of the neck. Heart is regular rate and rhythm Lungs are clear Abdomen soft Alert Test Results: CT of the soft tissue the neck shows moderate swelling no discrete abscess Emergency Department Course and Treatment: Multiple attempts were made at IV access and we were unsuccessful. I myself attempted ultrasound-guided IV placement but could not even see any vessels that I could attempt. I also attempted a single radial stick just for blood draw but this was unsuccessful. At this time given that the patient is hemodynamically stable and protecting his airway I do not believe he needs a central line. Patient was discussed with the [facility] transfer line who is able to speak to plastics sanitation worker hosing machinery who asked that the patient be admitted under the hospitalist service. Treatment Plan: [] Disposition: Transfer Impression: Facial cellulitis Postoperative wound infection This note was generated with [employer] dictation software. It may contain incorrect words, spelling, and punctuation that were not noted in review of the chart prior to signing ED Disposition - Plan for ED Patient: Chief Complaint: Wound Check Referrals: Ranjit Azar DO [Primary Care Provider] -
--- NOTE | 2018-02-24 16:05 | ED.DCSUM_ITS ---
- ER Visit Summary Date of Service: 02/24/18 Chief Complaint: Facial swelling History of Present Illness: The patient is a 32 M who presents with facial swelling. He had surgery for jaw fracture at [facility] on January 28. He has had multiple recent ER visits. He was diagnosed with facial cellulitis. He saw his surgeon on February 22. He was scheduled to have the wires removed but had no one to pick him up so the surgery was delayed. He states that his swelling markedly worsened today. He states it is difficult to talk. Physical Examination: Afebrile vitals are stable Patient does have some trismus and left submandibular and submental swelling and induration he has purulent drainage from a wound on the right side of the neck. Heart is regular rate and rhythm Lungs are clear Abdomen soft Alert Test Results: CT of the soft tissue the neck shows moderate swelling no discrete abscess Emergency Department Course and Treatment: Multiple attempts were made at IV access and we were unsuccessful. I myself attempted ultrasound-guided IV placement but could not even see any vessels that I could attempt. I also attempted a single radial stick just for blood draw but this was unsuccessful. At this time given that the patient is hemodynamically stable and protecting his airway I do not believe he needs a central line. Patient was discussed with the [facility] transfer line who is able to speak to plastics oncology registrar who asked that the patient be admitted under the hospitalist service. Treatment Plan: [] Disposition: Transfer Impression: Facial cellulitis Postoperative wound infection This note was generated with [employer] dictation software. It may contain incorrect words, spelling, and punctuation that were not noted in review of the chart prior to signing ED Disposition - Plan for ED Patient: Chief Complaint: Wound Check Referrals: Ranjit Azar DO [Primary Care Provider] -
[2018-02-24 16:06] VITALS: BP 169/106; PULSE 80; RESP 18; TEMP 36.9; O2SAT 98
--- NOTE | 2018-02-24 16:35 | NURSING ---
[id number] NURSE TO NURSE [phone]
== END 2018-02-24 17:00 | disposition short-term general hospital (02) ==
PROVIDERS: Emergency Provider Emergency Medicine; Family Provider Student in an Organized Health Care Education/Training Program; PCP Student in an Organized Health Care Education/Training Program
DX: T81.4XXA Infection following a procedure, initial encounter (principal); L03.211 Cellulitis of face; E11.9 Type 2 diabetes mellitus without complications; I10 Essential (primary) hypertension; F32.9 Major depressive disorder, single episode, unspecified; Z79.4 Long term (current) use of insulin; Z79.84 Long term (current) use of oral hypoglycemic drugs; Z79.899 Other long term (current) drug therapy
CPT/HCPCS: 70490; 99283; J2185

== ENCOUNTER 2018-05-14 22:30 | Emergency (ER) | payer MEDICAID, SELFPAY ==
[2018-05-14 22:32] VITALS: BP 157/88; PULSE 101; RESP 20; TEMP 36.4; O2SAT 100; BMI 34.0
--- NOTE | 2018-05-14 22:41 | EKG12_ITS ---
Test Reason : PAIN Blood Pressure : / mmHG Vent. Rate : 084 BPM Atrial Rate : 084 BPM P-R Int : 144 ms QRS Dur : 090 ms QT Int : 360 ms P-R-T Axes : 060 047 041 degrees QTc Int : 425 ms Normal sinus rhythm Nonspecific ST and T wave abnormality Abnormal ECG Confirmed by AVTAR JOSEPH, TRINIDAD ([id number]), content editor [employer] ([id number]) on 05/18/2018 10:45:12 AM Referred By: Confirmed By:TRINIDAD NOVA MD
--- NOTE | 2018-05-14 22:45 | RAD_ITS ---
STUDY: X-RAY CHEST REASON FOR EXAM: Male, 32 years old. Aches and pains TECHNIQUE: AP portable COMPARISON: January 03, 2018 FINDINGS: Diminished inspiratory effort is seen however the lungs are clear. There is no demonstrated pleural abnormality. Normal size heart. Normal mediastinum and alanis. Normal visualized pulmonary arteries. Normal visualized aortic arch and descending thoracic aorta. Dorsal spine demonstrates spondylosis.. Normal visualized ribs, clavicles, and shoulders. There is no demonstrated abnormality of the visualized soft tissue structures of the upper abdomen. RAD/Chest 1 View (Portable) IMPRESSION: Diminished inspiratory effort. No acute disease Electronically Signed: Chavez Quinones MD at 23:10 EST , Service support ,
--- NOTE | 2018-05-14 22:50 | ED.VISSUMM ---
- ER Visit Summary Date of Service: 05/14/18 Chief Complaint: Body aches History of Present Illness: The patient is a 32 M presenting with body aches. Patient states this has been constant for the past week. He states he has pain all over. He complains of chest pain. He states this has been constant for the past week. He has had vomiting for the past several days. He denies fever. He did not receive a flu shot this year. He has a history of diabetes and seizure disorder. He had a jaw fracture with repair in February. He had his hardware removed at the beginning of May. Denies other complaints. Physical Examination: Vitals are stable. Patient is afebrile. Alert no acute distress. HEENT exam is unremarkable. No jaw swelling. No sublingual edema. No intraoral fluctuance. Neck is supple. Lungs are clear and equal bilaterally. Heart is regular and tachycardic Abdomen is soft nontender nondistended. Extremities are unremarkable. Skin is warm and dry. No focal neurologic deficit. Remainder of exam is unremarkable. Emergency Department Course and Treatment: Patient given IV fluids, Zofran. EKG is sinus rate of 84 with no acute ischemic changes. CBC normal except hemoglobin 11.9. Chemistries show potassium 3.2, glucose 156. Influenza negative. Troponin is negative. D-dimer is 0.78. CTA chest was obtained and is negative. No PE or acute disease identified. Valproic acid level 32. Patient is resting comfortably on reevaluation. Patient is advised to follow-up with his primary care physician. Advised return to ED for worsening complaints. Disposition: Discharge home Impression: Myalgias This note was generated with [employer] dictation software. It may contain incorrect words, spelling, and punctuation that were not noted in review of the chart prior to signing ED Disposition - Plan for ED Patient: Chief Complaint: General Illness Instructions: ED Nausea Vomiting Prescriptions: Ondansetron [Zofran Odt] 4 mg PO Q8H PRN PRN #10 tablet PRN Reason: Nausea Referrals: Ranjit Azar DO [Primary Care Provider] -
[2018-05-14] MEDS: 0.9% Normal Saline 1,000 ML 1000 ML IV ×2 (23:01→23:16)
[2018-05-14] MEDS: Ondansetron 4 MG/2 ML Vial IV (23:02)
[2018-05-14 23:19] LABS: Absolute Lymphocyte Count 2.18 X10^3/ul (0.83-4.51); Absolute Neutrophil Count 4.7 X10^3/uL (2.0-7.7); Basophil# 0.05 X10^3/uL; Basophil% 0.7 % (0-1); Eosinophil# 0.07 X10^3/uL; Eosinophils% 0.9 % (0-5); Hematocrit 36.2 % (40-54); Hemoglobin 11.9 g/dl (13.0-16.5); Lymphocyte # 2.18 X10^3/ul (4.0); Lymphocyte % 29.2 % (19-41); Mean Corp Hgb Conc 32.9 g/gl (32-36); Mean Corpuscular Hgb 26.9 pg (27.0-32.0); Mean Corpuscular Volume 81.7 fL (80-94); Mean Platelet Vol. 10.4 fl (6.2-12.0); Monocyte# 0.49 X10^3/uL; Monocyte% 6.6 % (0-10); Neutrophil # 4.68 X10^3/uL (2.7-7.7); Neutrophil % 62.6 % (47-70); POSITIVE COUNT NO; POSITIVE DIFFERENTIAL NO; POSITIVE MORPHOLOGY NO; Platelet Count 236 K/mm3 (150-450); RBC Distribution Width CV 13.4 % (11.6-14.6); RBC Distribution Width SD 40.3 fl (35.1-43.9); Red Blood Count 4.43 M/mm3 (4.6-6.2); White Blood Count 7.5 K/mm3 (4.4-11.0)
[2018-05-14 23:37] LABS: D-Dimer Quantitative (DVT/PE) 0.78 FEU/ug/m (0.27-0.49)
--- NOTE | 2018-05-14 23:38 | ED.RN ---
lab called with critical lab results. D dimer 0.78. Dr. Goff made aware. orders to be placed
[2018-05-14 23:39] LABS: Valproic Acid (Depakene) Level 32 ug/mL (50-100)
[2018-05-14 23:40] LABS: Anion Gap 7 (5-15); BUN 8 mg/dL (7-18); BUN/Creat Ratio 8.6 RATIO (10-20); Calcium,Total 9.2 mg/dL (8.5-10.1); Chloride 107 mmol/L (98-107); Creatinine, Serum 0.93 mg/dL (0.70-1.30); EST Glomerular Filtration Rate 99 mL/min (>60); Est Glom Filt Rate - Afr Amer 120 mL/min (>60); Estimated Creatinine Clearance 97.36 ml/min; Glucose 156 mg/dL (74-106); Potassium 3.2 mmol/L (3.5-5.1); Sodium Level 141 mmol/L (136-145)
--- NOTE | 2018-05-14 23:44 | CT_ITS ---
HISTORY: ELEVATED DDIMER TECHNIQUE: Helically acquired images were obtained of the chest following IV contrast as per pulmonary angiogram protocol with 3D reconstructions. A radiation dose optimization technique was used for this scan. IV Contrast dosage and agent: 100 cc Isovue 370 contrast COMPARISON: None FINDINGS: UPPER ABDOMEN: Unremarkable. PULMONARY ARTERIES: High density contrast within his peer vena cava with secondary element of reconstruction artifact. No central or major PE. No PE identified. AORTA AND GREAT VESSELS: Normal in caliber. No evidence of dissection. HEART AND PERICARDIUM: Heart size is normal. There is no pericardial effusion. No signs of right heart strain. MEDIASTINUM AND NATALEE: There is no mediastinal or hilar adenopathy. Esophagus is unremarkable. There is no hiatal hernia. SOFT TISSUES: Included thyroid gland is unremarkable. There is no axillary, supraclavicular or lower cervical adenopathy. LUNGS AND LARGE AIRWAYS: Mild elevation of the right hemidiaphragm compatible with chronic change. No pulmonary infiltrate. PLEURA: Unremarkable. No pleural effusion or thickening. BONES: No suspicious lytic or blastic abnormality observed. CT/CTA Chest W/WO Contrast IMPRESSION: 1. Negative CTA Chest. No PE or acute disease identified. Individualized dose optimization techniques were used for this CT. at 0110 Reported and signed by: Ray Alston MD Electronically Signed: Ray Alston, at 1:08 EST Tel , Service support ,
[2018-05-15 00:53] VITALS: PULSE 86; RESP 16; O2SAT 96
--- NOTE | 2018-05-15 01:20 | ED.DEP ---
ED Disposition - Plan for ED Patient: Chief Complaint: General Illness Instructions: ED Nausea Vomiting Prescriptions: Ondansetron [Zofran Odt] 4 mg PO Q8H PRN PRN #10 tablet PRN Reason: Nausea Referrals: Ranjit Azar DO [Primary Care Provider] -
[2018-05-15 01:46] VITALS: BP 152/93; PULSE 87; RESP 17; O2SAT 97
--- OUTSIDE RECORDS SUMMARY | 2018-07-01 03:46 | XMS RPT_ITS ---
:1985 Author Organization [employer] Address [address] [place] [address] Phone Care Team Providers Name Role Phone Gama Ludwig MD Unavailable Reason for Visit Reason For Visit Description Start Date Postop - 1st visit Preliminary reason for visit data, not yet signed by the author as of . post 1. Removal of arch bars. 2. Drain bilateral jaw abscesses. on 03/15/2018 Preliminary reason for visit data, not yet signed by the author as of Chief Complaint Chief Complaint Description Start Date . post 1. Removal of arch bars. 2. Drain bilateral jaw abscesses. on 03/15/2018 Preliminary chief complaint data, not yet signed by the author as of Instructions Instruction Description Start Date CompletedPlease follow-up with Primary Care Physician or Boom Man for treatment or adjustment of medication regarding elevated blood pressure.Patient advised to follow-up with Primary Care Physician for BMI management. Plan of Care Type Date Detail Appointment 09:15 AM Gama Ludwig MD, [address] [facility], [place], [address], Patient education \cps-[email or web address]\CPS_PtEducation\htn. pdf Medications No information available. Conditions or Problems Problem Problem Onset Status Entry Provider Comment Standard Annotate Name Code Date Date Description Bilateral [id number] Active Gama Cain Fracture of fracture of (SNOMED CT) / Oziel mandible mandible Allergies, Adverse Reactions, Alerts Allergy Name Reaction Start Date Severity Status Provider Description COCONUT Critical Active Gama Ludwig MD LACTOSE Critical Active Gama Ludwig MD STRAWBERRY Critical Active Gama Ludwig MD VICODIN Critical Active Gama Cain (HYDROCODONE-KEVIN Oziel JOSEPH TAMINOPHEN TABS) BACLOFEN Critical Active Gama Ludwig MD PENICILLIN Critical Active Gama Ludwig MD Social History No information available. Vital Signs Date Name Value Unit Description BMI (Body Mass 35.07 kg/m2 Body Mass Index Index) [Ratio] Preliminary vital sign data, not yet signed by the author as of BP Diastolic 116 mm[Hg] blood pressure, diastolic Preliminary vital sign data, not yet signed by the author as of BP Diastolic 116 mm[Hg] blood pressure, diastolic, second observation Preliminary vital sign data, not yet signed by the author as of BP Systolic 155 mm[Hg] blood pressure, systolic Preliminary vital sign data, not yet signed by the author as of BP Systolic 152 mm[Hg] blood pressure, systolic, second observation Preliminary vital sign data, not yet signed by the author as of Heart Rate 89 /min pulse rate E&M Preliminary vital sign data, not yet signed by the author as of Height 65 [in_us] height E&M Preliminary vital sign data, not yet signed by the author as of Height 165 cm height in centimeters E&M Preliminary vital sign data, not yet signed by the author as of Weight Measured 210 [lb_av] weight E&M Preliminary vital sign data, not yet signed by the author as of Weight Measured 95 kg weight in kilograms E&M Preliminary vital sign data, not yet signed by the author as of Results Date Name Value Unit Range Flag Description Office Visit: Postop - 1st visit, Rm: 2 MEDS REVIEW Done Documentation of current medications (procedure) Preliminary observation data, not yet signed by the author as of Preliminary observation data, not yet signed by the author as of Clinical Summary: HMSPatientID POP account number Procedures Code Procedure Name Date Entry Date CPT-85313 XR MANDIBLE 4+ VWS G8731 Pain assessment documented as negative - follow-up not required G8427 Current medications documented 1036F Tobacco screening was negative - non user G8417 BMI documented as above normal parameters - follow-up documented G8950 Blood pressure outside of normal parameters - follow-up documented [facility]-[id number] Patient Encounter Medications Administered No information available. Immunizations No information available. Advance Directives There may be information available, but it has not been provided by the sender. Assessments There may be information available, but it has not been provided by the sender. Review of Systems There may be information available, but it has not been provided by the sender. Family History There may be information available, but it has not been provided by the sender. History of Past Illness There may be information available, but it has not been provided by the sender. History of Present Illness There may be information available, but it has not been provided by the sender.
--- OUTSIDE RECORDS SUMMARY | 2018-07-01 03:46 | XMS RPT_ITS ---
:1985 Author Organization [employer] Address [address] [place] [address] Phone Care Team Providers Name Role Phone Gama Ludwig MD Reason for Visit Reason For Visit Description Start Date Postop - subsequent visit Preliminary reason for visit data, not yet signed by the author as of ; post 1. Removal of arch bars. 2. Drain bilateral jaw abscesses. on 03/15/2018 Preliminary reason for visit data, not yet signed by the author as of Chief Complaint Chief Complaint Description Start Date ; post 1. Removal of arch bars. 2. Drain bilateral jaw abscesses. on 03/15/2018 Preliminary chief complaint data, not yet signed by the author as of Instructions Instruction Description Start Date CompletedPatient advised to follow-up with Primary Care Physician for BMI management. Plan of Care Type Date Detail Appointment 11:15 AM Gama Ludwig MD, [address] [facility], [facility], [place], [address], Medications No information available. Conditions or Problems Problem Problem Onset Status Entry Provider Comment Standard Annotate Name Code Date Date Description Bilateral S02.609A Active Gama Cain Fracture of fracture of (ICD-10-C / Oziel mandible, mandible M) unspecified, initial encounter for closed fracture Allergies, Adverse Reactions, Alerts Allergy Name Reaction [...] by the author as of BP Diastolic 85 mm[Hg] blood pressure, diastolic Preliminary vital sign data, not yet signed by the author as of BP Systolic 119 mm[Hg] blood pressure, systolic Preliminary vital sign data, not yet signed by the author as of Heart Rate 59 /min pulse rate E&M Preliminary vital sign [...] Range Flag Description Office Visit: Postop - subsequent visit, Rm: 2 MEDS REVIEW Done Documentation of current medications (procedure) Preliminary observation data, not yet signed by the author as of Preliminary observation data, not yet signed by the author as of Clinical Summary: HMSPatientID POP account number Procedures Code Procedure Name Date Entry Date G8731 Pain assessment documented as negative - follow-up not required G8427 Current medications documented 1036F Tobacco screening was negative - non user G8417 BMI documented as above normal parameters - follow-up documented G8783 Blood pressure within normal parameters - no follow-up required [facility]-[id number] Patient Encounter Medications Administered No information available. [...]
--- OUTSIDE RECORDS SUMMARY | 2018-07-01 03:46 | XMS RPT_ITS ---
:1985 Author Organization [employer] Address [address] [place] [address] Phone Care Team Providers Name Role Phone Gama Ludwig MD Unavailable Reason for Visit Reason For Visit Description Start Date Postop - subsequent visit Preliminary reason for visit data, not yet signed by the author as of ; post removal of wires and arch bars on 05/10/2018 Preliminary reason for visit data, not yet signed by the author as of Chief Complaint Chief Complaint Description Start Date ; post removal of wires and arch bars on 05/10/2018 Preliminary chief complaint data, not yet signed by the author as of Instructions Instruction Description Start Date CompletedPlease follow-up with Primary Care Physician or Acid Dumper for treatment or adjustment of medication regarding elevated blood pressure.Patient advised to follow-up with Primary Care Physician for BMI management. Plan of Care Type Date Detail Appointment 09:00 AM Gama Ludwig MD, [address] [facility], [facility], [place], [address], Patient education \cps-[email or web address]\CPS_PtEducation\htn. pdf Medications No information [...] by the author as of BP Diastolic 95 mm[Hg] blood pressure, diastolic Preliminary vital sign data, not yet signed by the author as of BP Diastolic 97 mm[Hg] blood pressure, diastolic, second observation Preliminary vital sign data, not yet signed by the author as of BP Systolic 151 mm[Hg] blood pressure, systolic Preliminary vital sign data, not yet signed by the author as of BP Systolic 151 mm[Hg] blood pressure, systolic, second observation Preliminary vital sign data, not yet signed by the author as of Heart Rate 62 /min pulse rate E&M Preliminary vital sign [...] outside of normal parameters - follow-up documented [facility]-[id number] Patient Encounter Medications Administered No information available. [...]
--- OUTSIDE RECORDS SUMMARY | 2018-07-01 03:48 | XMS RPT_ITS ---
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 diet 2. Liquid/crushed capsules for home medications. Prescription for seizure med elixir given.medications 3. Peridex mouthwash QID 4. Discharge instructions provided 5. Follow-up instructions provided. Advised to follow-up with Dr. Ludwig. Call office to schedule Plan of care discussed w/ patient and family who understood and agreed with the plan. At this time they have no additional questions. We discussed that if the patient develops any increased pain, redness, swelling, fevers or any other symptoms that are concerning to the patient or family they should immediately return to the emergency department or contact the office of Dr. Ludwig. Levon Morris MD 04/03/18 6:15 PM GLUCOSE,BEDSIDE Collected: 04/03/2018 Status: F Source: App in the Air 11:30 AM SYSTEM REPOSITORY TYPE CODE TESTS RESULT OUT OF RANGE REFERENCE UNITS LAB BGLU 70-100 mg/dL High 113 Glucose,Beds kyle Result Comment: Test performed by glucose meter. Results may be 10%-15% lower than serum/plasma values. (CLIA ID [id number]) Performed By: #### BGLU #### [facility] [address] [place] [phone] GLUCOSE,BEDSIDE Collected: 04/03/2018 Status: F Source: App in the Air 8:34 AM SYSTEM REPOSITORY TYPE CODE TESTS RESULT OUT OF RANGE REFERENCE UNITS LAB BGLU 70-100 mg/dL Normal 95 Glucose,Beds kyle Result Comment: Test performed by glucose meter. Results may be 10%-15% lower than serum/plasma values. (CLIA ID [id number]) Performed By: #### BGLU #### [facility] [address] [place] [phone] GLUCOSE,BEDSIDE Collected: 04/02/2018 Status: F Source: App in the Air 8:10 PM SYSTEM REPOSITORY TYPE CODE TESTS RESULT OUT OF RANGE REFERENCE UNITS LAB BGLU 70-100 mg/dL High 132 Glucose,Beds kyle Result Comment: Test performed by glucose meter. Results may be 10%-15% lower than serum/plasma values. (CLIA ID [id number]) Performed By: #### BGLU #### [facility] [address] [place] [address] GLUCOSE,BEDSIDE Collected: 04/02/2018 Status: F Source: App in the Air 6:31 PM SYSTEM REPOSITORY TYPE CODE TESTS RESULT OUT OF RANGE REFERENCE UNITS LAB BGLU 70-100 mg/dL High 148 Glucose,Beds kyle Result Comment: Test performed by glucose meter. Results may be 10%-15% lower than serum/plasma values. (CLIA ID [id number]) Performed By: #### BGLU #### [facility] [place] [address] GLUCOSE,BEDSIDE Collected: 04/02/2018 Status: F Source: App in the Air 1:07 PM SYSTEM REPOSITORY TYPE CODE TESTS RESULT OUT OF RANGE REFERENCE UNITS LAB BGLU 70-100 mg/dL High 126 Glucose,Beds kyle Result Comment: Test performed by glucose meter. Results may be 10%-15% lower than serum/plasma values. (CLIA ID [id number]) Performed By: #### BGLU #### [facility] [place] [address] GLUCOSE,BEDSIDE Collected: 04/02/2018 Status: F Source: App in the Air 12:48 PM SYSTEM REPOSITORY TYPE CODE TESTS RESULT OUT OF RANGE REFERENCE UNITS LAB BGLU 70-100 mg/dL Low 62 Glucose,Beds kyle Result Comment: Test performed by glucose meter. Results may be 10%-15% lower than serum/plasma values. (CLIA ID [id number]) Performed By: #### BGLU #### [facility] [place] [address] URINALYSIS,MACRO Collected: 04/02/2018 Status: F Source: App in the Air 8:12 AM SYSTEM REPOSITORY TYPE CODE TESTS RESULT OUT OF REFERENCE UNITS RANGE LAB APPUR Clear NA Appearance Clear LAB COLUR Lt. Yellow NA Color Yellow LAB USG 1.005-1.030 NA Low Specific [place],Urine 1.000 LAB UPH 5.0-8.0 NA pH,Urine Normal 7.0 LAB ULUK Negative NA Leukocytes NEG LAB UNIT Negative NA Nitrites NEG LAB UPRO Negative mg/dL Total Protein,Urine NEG LAB UGLU Negative mg/dL Glucose,Urine NORM LAB UKET Negative mg/dL Ketone,Urine NEG LAB UURO 0-1 mg/dL Urobilinogen NORM LAB UBIL Negative NA Bilirubin,Ur NEG LAB UBLD Negative {RBC}/uL Occult Blood,Ur NEG Performed By: #### UAMAC, DRGA4 #### [facility] [address] [place] [phone] DRUGS OF ABUSE Collected: 04/02/2018 Status: F Source: App in the Air 8:12 AM SYSTEM REPOSITORY TYPE CODE TESTS RESULT OUT OF REFERENCE UNITS RANGE LAB AMP3 NA Amphetamines, Ur Negative LAB BARB3 NA Barbiturates, Ur Negative LAB BENZ3 NA Benzodiazepines, Negative Ur LAB COC3 NA Cocaine, Ur Negative LAB METH3 NA Methadone, Ur Negative LAB OPI3 NA Opiates, Ur Negative LAB OXY3 NA Oxycodone/Oxymorph Positive ine,Ur LAB PCP3 NA Phencyclidine (PCP), Ur Negative Result Comment: The expected value for all of the drugs listed above is Negative. The following drugs or drug groups have been screened for by Immunoassay at the following thresholds: Amphetamine class (1000 ng/mL), Barbiturates (200 ng/mL), Benzodiazepines (200 ng/mL), Cocaine (300 ng/mL), Methadone (300 ng/mL), Opiates (300 ng/mL), Oxycodone (100 ng/mL), and PCP (25 ng/mL). NOTE: These results are for medical treatment only. Analysis performed using non-forensic procedures. POSITIVE results are NOT confirmed by a more specific alternative method unless requested. If confirmation is needed, request confirmation under separate order. Performed By: #### MELISSAMAC, DRGA4 #### [facility] [address] [address] HEMOGRAM W/ AUTODIFF Collected: 04/02/2018 Status: F Source: App in the Air 8:11 AM SYSTEM REPOSITORY TYPE CODE TESTS RESULT OUT OF REFERENCE UNITS RANGE LAB IWBC 3.6-10.7 10*3/uL WBC Normal 5.4 LAB RBC 4.40-5.90 10*6/uL Low RBC 3.89 LAB HGB 13.0-18.0 g/dL Low Hemoglobin 10.5 LAB HCT 40.0-52.0 % Low Hematocrit 32.3 LAB MCV 80.0-98.0 fL MCV Normal 83.0 LAB MCH 26.0-34.0 pg MCH Normal 27.0 LAB MCHC 32.0-36.0 % MCHC Normal 32.5 LAB RDW 11.5-14.5 % RDW High 14.8 LAB PLT 140-440 10*3/uL Platelet Normal 256 LAB MPV 7.4-10.4 fL MPV Normal 8.2 LAB GRAN% 40.0-80.0 % Granulocytes Normal 62.9 LAB LYMP% 20.0-40.0 % Lymphocytes Normal 23.1 LAB MONO% 2.0-10.0 % Monocytes High 10.6 LAB EOS% 1.0-6.0 % Eosinophils Normal 2.7 LAB BAS% 0.0-2.0 % Basophils Normal 0.7 LAB ANC 1.8-7.0 10*3/uL Abs Normal Neutrophile Cnt 3.4 LAB ALC 1.0-4.3 10*3/uL Abs Lymph Cnt Normal 1.2 LAB AMC 0.0-0.8 10*3/uL Abs Monocyte Normal Cnt 0.6 LAB AEC 0.0-0.5 10*3/uL Abs Eosin Cnt Normal 0.1 LAB ABC 0.0-0.2 10*3/uL Abs Baso Cnt Normal 0.0 Performed By: #### HEMDF, LACT3, CMP3M #### [facility] [address] [place] [phone] LACTIC ACID Collected: 04/02/2018 Status: F Source: App in the Air 8:11 AM SYSTEM REPOSITORY TYPE CODE TESTS RESULT OUT OF RANGE REFERENCE UNITS LAB LACT3 0.7-2.0 mmol/L Normal Lactic Acid 1.9 Performed By: #### HEMDF, LACT3, CMP3M #### [facility] [address] [phone] COMP PANEL WITH MG Collected: 04/02/2018 Status: F Source: App in the Air REFLEX 8:11 AM SYSTEM REPOSITORY TYPE CODE TESTS RESULT OUT OF RANGE REFERENCE UNITS LAB NA3 137-145 mmol/L Sodium Normal 139 LAB K3 3.5-5.1 mmol/L Normal Potassium 4.3 LAB CL3 98-107 mmol/L Chloride Normal 104 LAB CO23 22-30 mmol/L Carbon Normal Dioxide 29 LAB ANIN3 NA Anion Gap 6 LAB GLUC3 70-100 mg/dL High Glucose 110 LAB BUN3 7-20 mg/dL Low Urea Nitrogen 2 LAB CRET3 0.52-1.25 mg/dL Normal Creatinine 0.74 LAB GF3BR >60 mL/min eGFR > 60.0 LAB GF3WR >60 mL/min eGFR OTHER > 60.0 Result Comment: Source- MDRD equation with creatinine calibration to IDMS(NKDEP) eGFR not recommended for drug dose adjustment LAB CA3 8.4-10.4 mg/dL Calcium Normal 9.0 LAB ALB3 3.5-5.0 g/dL Low Albumin, Serum 3.4 LAB TP3 6.3-8.2 g/dL Total Protein Normal 6.6 LAB BILT3 0.2-1.3 mg/dL Normal Bilirubin,Total 0.4 LAB ALKP3 38-126 U/L Alkaline Normal Phosphatase 55 LAB ALT3 13-69 U/L ALT (SGPT) Normal 18 LAB AST3 15-46 U/L AST (SGOT) Normal 25 Performed By: #### HEMDF, LACT3, CMP3M #### [facility] [address] [place] [address] GLUCOSE,BEDSIDE Collected: 04/02/2018 Status: F Source: App in the Air 8:00 AM SYSTEM REPOSITORY TYPE CODE TESTS RESULT OUT OF RANGE REFERENCE UNITS LAB BGLU 70-100 mg/dL High 105 Glucose,Beds kyle Result Comment: Test performed by glucose meter. Results may be 10%-15% lower than serum/plasma values. (CLIA ID [id number]) Performed By: #### BGLU #### [facility] [address] [place] [address] GLUCOSE,BEDSIDE Collected: 04/02/2018 Status: F Source: App in the Air 5:47 AM SYSTEM REPOSITORY TYPE CODE TESTS RESULT OUT OF RANGE REFERENCE UNITS LAB BGLU 70-100 mg/dL Normal 92 Glucose,Beds kyle Result Comment: Test performed by glucose meter. Results may be 10%-15% lower than serum/plasma values. (CLIA ID [id number]) Performed By: #### BGLU #### [facility] [address] [place] [phone] ED PROVIDER NOTE Observed: 04/02/2018 Status: F Source: App in the Air 1:24 AM SYSTEM REPOSITORY I independently performed a history and physical on Victor Hugo Asif. All diagnostic, treatment, and disposition decisions were made by myself in conjunction with the advanced practice provider/resident. Brief History of Present Illness: Patient presents after being found by security wandering the hospital. The patient had been discharged upstairs to have a ride at 10:30 in the evening. Apparently the had dropped the patient off in the lobby but did not actually wait for him to get into a car. Patient states that he has been waiting for ride. Indicated that he was trying to call a [employer] company. Nursing converter supervisor stated that they thought he was waiting for family members. Patient states that he is very tired and just wants to go to sleep. He denies adamantly that he did no drugs or alcohol. He states that he is just been waiting. Patient was admitted to the hospital for a jaw fracture and infection. He has a PICC line in his RIGHT arm. Focused Physical Examination: Triage vitals signs indicate no hypotension, tachycardia, tachypnea, hypoxia, or fever. Regular rate and rythm without murmur. Lungs clear to auscultation bilaterally without increased work of breathing. bilateral jaws swollen. It required shunt. Patient is sleepy appearing but arousable to voice. Able to answer his name, place, and year. PICC line RIGHT arm. Emergency Department Course and Medical Decision Making: The patient ended up in the emergency department after being discharged upstairs without ensuring that he had an actual ride back to his place of residence in [place]. The patient was thought to be altered initially and metabolic workup and CT scan was ordered. However after further evaluation the patient stated that he is just sleepy and refused all testing. He was adamant that he did not do any drugs or illicit materials. The patient if he did have a ride to obtain drugs or illicit materials he would not have stayed in the hospital. It is unlikely that a drug dealer came to the lobby and gave him drugs. I do not suspect that he is intoxicated at this time. Therefore I asked nursing converter supervisor to arrange that the patient be placed in his previous bed as this is a failure in discharge planning. For further details of Victor Hugo Asif's emergency department encounter, please see documentation by advanced practice provider/resident Bell Soni CNP Comment: Please note this report has been produced using speech recognition software and may contain errors related to that system including errors in grammar, punctuation, and spelling, as well as words and phrases that may be inappropriate. If there are any questions or concerns please feel free to contact the dictating provider for clarification. Armando Crawley MD 04/02/18357 Armando Crawley MD 04/02/18357 ED PROVIDER NOTE Observed: 04/02/2018 Status: F Source: App in the Air 1:24 AM SYSTEM [facility] Patient: Victor Hugo Asif : 1985 Date of Evaluation: 04/02/2018 ED YOUSIF Provider: CHEL VIERA CNP EDcare was supervised by Dr. Crawley who independently examined and evaluated the patient. Please see their attestation note for further details. Chief Complaint Chief Complaint Patient presents with ? Other pt was found in ED RM 18 and states had left [facility] and [facility] Transportation brought him here. no one @ bedside to give report. pt was PICC line RUE. pt has mouth wired shut [place] Victor Hugo Asif is a 32 y.o. male whopresents to the emergency department Because he was brought in by security. Patient states he was discharged from the hospital earlier and did not have a ride home. States he called for a ride in transportation told him they could not take him. He was found wandering in the halls of the hospital so they brought him to the ED. Patient does not think there is anything wrong with him and does not want any blood work or testing today. He is alert and oriented. States he was trying to get a ride home and was unable to do so so he was just waiting around in the hospital. He has a PICC line in place and is supposed to get home infusions of antibiotics. ROS: Review of Systems Constitutional: Negative. HENT: Negative. Eyes: Negative. Respiratory: Negative. Cardiovascular: Negative. Gastrointestinal: Negative. Genitourinary: Negative. Musculoskeletal: Negative. Skin: Negative. Neurological: Negative. Hematological: Negative. Psychiatric/Behavioral: Negative. Past History Past Medical History: Diagnosis Date ? Asthma ? Diabetes mellitus (HCC) type 2 ? 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 ? PILAR (obstructive sleep apnea) ? Seizures (HCC) last seizure 2008 Past Surgical History: Procedure Laterality Date ? CIRCUMCISION ? DEBRIDEMENT Left 03/29/2018 Mandible ? MOUTH SURGERY Social History Social History ? Marital status: Spouse name: N/A ? Number of children: N/A ? Years of education: N/A Social History Main Topics ? Smoking status: Former Smoker Packs/day: 0.50 Years: 0.50 Types: Cigarettes Quit date: 2006 ? Smokeless tobacco: Never Used ? Alcohol use No ? Drug use: No ? Sexual activity: Not on file Other Topics Concern ? Not on file Social History Narrative ? No narrative on file Medications/Allergies Previous Medications CHLORHEXIDINE (PERIDEX) 0.12 % SOLUTION Take 15 mLs by mouth 4 times daily (after meals and at bedtime) for 14 days CHOLECALCIFEROL (VITAMIN D3) 65664 UNITS CAPS Take 1 capsule by mouth daily DICLOFENAC SODIUM 1 % GEL Apply 2 g topically 2 times daily DOXEPIN (SINEQUAN) 25 MG CAPSULE Take 25 mg by mouth nightly DULOXETINE (CYMBALTA) 30 MG EXTENDED RELEASE CAPSULE Take 30 mg by mouth daily FLUOXETINE (PROZAC) 40 MG CAPSULE Take 40 mg by mouth daily INDOMETHACIN (INDOCIN) 25 MG CAPSULE Take 25 mg by mouth 3 times daily (with meals) INSULIN ASPART (NOVOLOG) 100 UNIT/ML INJECTION VIAL Inject 6 Units into the skin 3 times daily (before meals) INSULIN DEGLUDEC 200 UNIT/ML SOPN Inject 25 Units into the skin every morning (before breakfast) LISINOPRIL (PRINIVIL;ZESTRIL) 20 MG TABLET Take 20 mg by mouth daily METFORMIN (GLUCOPHAGE) 500 MG TABLET Take 0.5 tablets by mouth 2 times daily (with meals) MOMETASONE-FORMOTEROL (DULERA) 200-5 MCG/ACT INHALER Inhale 2 puffs into the lungs every 12 hours NADOLOL (CORGARD) 20 MG TABLET Take 20 mg by mouth daily OMEPRAZOLE (PRILOSEC) 20 MG DELAYED RELEASE CAPSULE Take 20 mg by mouth daily OXYCODONE-ACETAMINOPHEN (PERCOCET) 5-325 MG PER TABLET Take 1 tablet by mouth every 6 hours as needed for Pain for up to 7 days.. Earliest Fill Date: 03/30/18 PREGABALIN (LYRICA) 75 MG CAPSULE Take 75 mg by mouth 2 times daily.. PROCHLORPERAZINE (COMPAZINE) 10 MG TABLET Take 10 mg by mouth every 8 hours as needed RISPERIDONE (RISPERDAL) 1 MG TABLET Take 1 mg by mouth 2 times daily SUMATRIPTAN (IMITREX) 100 MG TABLET Take 100 mg by mouth once as needed for Migraine TIZANIDINE (ZANAFLEX) 4 MG TABLET Take 4 mg by mouth 2 times daily as needed TRIAMCINOLONE (KENALOG) 0.025 % LOTN LOTION Apply 1 applicator topically 2 times daily VALPROATE (DEPAKENE) 250 MG/5ML SOLUTION Take 10 mLs by mouth every 12 hours VERAPAMIL (CALAN) 40 MG TABLET Take 40 mg by mouth 3 times daily Allergies Allergen Reactions ? Baclofen Hives ? Pcn [Penicillins] Hives ? Tylenol [Acetaminophen] Hives ? Vicodin [Hydrocodone-Acetaminophen] Hives Physical Exam ED Triage Vitals [04/02/18 0244] BP Temp Temp Source Pulse Resp SpO2 Height Weight 109/69 97.7 ?F (36.5 ?C) Axillary 78 20 97 % 5' 5 (1.651 m) 210 lb (95.3 kg) Physical Exam Constitutional: He is oriented to person, place, and time. He appears well-developed and well-nourished. HENT: Mouth wired shut Slight facial edema- no facial erythema or cellulitis Eyes: Pupils are equal, round, and reactive to light. Conjunctivae and EOM are normal. Neck: Normal range of motion. Neck supple. Cardiovascular: Normal rate, regular rhythm, normal heart sounds and intact distal pulses. Pulmonary/Chest: Effort normal and breath sounds normal. Musculoskeletal: Normal range of motion. PICC line in right arm Neurological: He is alert and oriented to person, place, and time. He has normal strength. He displays a negative Romberg sign. GCS eye subscore is 4. GCS verbal subscore is 5. GCS motor subscore is 6. Patient is sleeping on initial assessment but is arousable to voice. Answers questions appropriately Skin: Skin is warm and dry. Capillary refill takes less than 2 seconds. Psychiatric: He has a normal mood and affect. Diagnostics Labs: No results found for this visit on 04/02/18. Radiographs: No results found. EKG: All EKG's areinterpreted by the Emergency Department Physician in the absence of a chip mixer.?Please see their note for interpretation of EKG. ED Course and MDM In brief, Victor Hugo Asif elmer 32 y.o. male who presented to the emergency department By security because he was wandering the halls of the hospital. Patient states he was unable to get a ride home and was discharged from the hospital at 10:30 last night. Patient has no acute neuro deficits. Patient does not want any testing done today. Nursing converter supervisor involved and plan to cancel discharge and place patient in his old room until appropriate ride can be found for hospital discharge. ED Medication Orders None Final Impression 1. Fatigue, unspecified type DISPOSITION (Please note that portions of this note may have been completed with a voice recognition program. Efforts were made to edit the dictations but occasionally words aremis-transcribed.) BELL SONI APRN - CHR[facility] [employer] Bell Soni APRN - CHRIS 04/02/18 0402 GLUCOSE,BEDSIDE Collected: 04/01/2018 Status: F Source: App in the Air 8:36 PM SYSTEM REPOSITORY TYPE CODE TESTS RESULT OUT OF RANGE REFERENCE UNITS LAB BGLU 70-100 mg/dL High 182 Glucose,Beds kyle Result Comment: Test performed by glucose meter. Results may be 10%-15% lower than serum/plasma values. (CLIA ID [id number]) Performed By: #### BGLU #### [facility] [address] [place] [phone] GLUCOSE,BEDSIDE Collected: 04/01/2018 Status: F Source: App in the Air 4:13 PM SYSTEM REPOSITORY TYPE CODE TESTS RESULT OUT OF RANGE REFERENCE UNITS LAB BGLU 70-100 mg/dL High 184 Glucose,Beds kyle Result Comment: Test performed by glucose meter. Results may be 10%-15% lower than serum/plasma values. (CLIA ID [id number]) Performed By: #### BGLU #### [facility] [address] [place] [address] GLUCOSE,BEDSIDE Collected: 04/01/2018 Status: F Source: App in the Air 11:50 AM SYSTEM REPOSITORY TYPE CODE TESTS RESULT OUT OF RANGE REFERENCE UNITS LAB BGLU 70-100 mg/dL High 170 Glucose,Beds kyle Result Comment: Test performed by glucose meter. Results may be 10%-15% lower than serum/plasma values. (CLIA ID [id number]) Performed By: #### BGLU #### [facility] [address] [place] [address] GLUCOSE,BEDSIDE Collected: 04/01/2018 Status: F Source: App in the Air 8:02 AM SYSTEM REPOSITORY TYPE CODE TESTS RESULT OUT OF RANGE REFERENCE UNITS LAB BGLU 70-100 mg/dL High 101 Glucose,Beds kyle Result Comment: Test performed by glucose meter. Results may be 10%-15% lower than serum/plasma values. (CLIA ID [id number]) Performed By: #### BGLU #### [facility] [address] [place] [address] GLUCOSE,BEDSIDE Collected: 03/31/2018 Status: F Source: App in the Air 8:11 PM SYSTEM REPOSITORY TYPE CODE TESTS RESULT OUT OF RANGE REFERENCE UNITS LAB BGLU 70-100 mg/dL High 126 Glucose,Beds kyle Result Comment: Test performed by glucose meter. Results may be 10%-15% lower than serum/plasma values. (CLIA ID [id number]) Performed By: #### BGLU #### [facility] [address] [place] [address] GLUCOSE,BEDSIDE Collected: 03/31/2018 Status: F Source: App in the Air 4:18 PM SYSTEM REPOSITORY TYPE CODE TESTS RESULT OUT OF RANGE REFERENCE UNITS LAB BGLU 70-100 mg/dL Normal 91 Glucose,Beds kyle Result Comment: Test performed by glucose meter. Results may be 10%-15% lower than serum/plasma values. (CLIA ID [id number]) Performed By: #### BGLU #### [facility] [address] [place] [address] GLUCOSE,BEDSIDE Collected: 03/31/2018 Status: F Source: App in the Air 12:50 PM SYSTEM REPOSITORY TYPE CODE TESTS RESULT OUT OF RANGE REFERENCE UNITS LAB BGLU 70-100 mg/dL High 222 Glucose,Beds kyle Result Comment: Test performed by glucose meter. Results may be 10%-15% lower than serum/plasma values. (CLIA ID [id number]) Performed By: #### BGLU #### [facility] [address] [place] [address] GLUCOSE,BEDSIDE Collected: 03/31/2018 Status: F Source: App in the Air 9:01 AM SYSTEM REPOSITORY TYPE CODE TESTS RESULT OUT OF RANGE REFERENCE UNITS LAB BGLU 70-100 mg/dL Normal 100 Glucose,Beds kyle Result Comment: Test performed by glucose meter. Results may be 10%-15% lower than serum/plasma values. (CLIA ID [id number]) Performed By: #### BGLU #### [facility] [address] [place] [address] GLUCOSE,BEDSIDE Collected: 03/30/2018 Status: F Source: App in the Air 9:48 PM SYSTEM REPOSITORY TYPE CODE TESTS RESULT OUT OF RANGE REFERENCE UNITS LAB BGLU 70-100 mg/dL Normal 92 Glucose,Beds kyle Result Comment: Test performed by glucose meter. Results may be 10%-15% lower than serum/plasma values. (CLIA ID [id number]) Performed By: #### BGLU #### [facility] [address] [place] [address] GLUCOSE,BEDSIDE Collected: 03/30/2018 Status: F Source: App in the Air 5:08 PM SYSTEM REPOSITORY TYPE CODE TESTS RESULT OUT OF RANGE REFERENCE UNITS LAB BGLU 70-100 mg/dL High 111 Glucose,Beds kyle Result Comment: Test performed by glucose meter. Results may be 10%-15% lower than serum/plasma values. (CLIA ID [id number]) Performed By: #### BGLU #### [facility] [address] [place] [address] CR CHEST PORTABLE Observed: 03/30/2018 Status: F Source: App in the Air 4:07 PM SYSTEM REPOSITORY Patient Name: VICTOR HUGO ASIF Diagnostic Radiology Exam Date/Time 03/30/2018 15:44:18 EDT Exam CR Chest Portable Ordering Physician DO FREEDMAN KATHRYN C Accession Number [id number] CPT4 Codes 46214 () Reason For Exam line placement Report CLINICAL INFORMATION: Line placement. Obesity. Portable view of the chest at 1520 hours is provided. There are no comparison studies. FINDINGS: A PICC line is noted via the right arm. The distal tip is in the superior vena cava. The cardiac silhouette and mediastinum are otherwise unremarkable. The lungs are clear. IMPRESSION: 1. Right-sided PICC line as described. The distal tip is in the SVC. 2. No focal infiltrates. Report Dictated on Final Dictated: 03/30/2018 4:07 pm Dictating Physician: MD LOCKETT JEFFREY Signed Date and Time: 03/30/2018 4:08 pm Signed by: MD LOCKETT JEFFREY Transcribed Date and Time: 03/30/2018 4:07 GLUCOSE,BEDSIDE Collected: 03/30/2018 Status: F Source: [facility] 12:41 PM SYSTEM REPOSITORY TYPE CODE TESTS RESULT OUT OF RANGE REFERENCE UNITS LAB BGLU 70-100 mg/dL Normal 98 Glucose,Beds kyle Result Comment: Test performed by glucose meter. Results may be 10%-15% lower than serum/plasma values. (CLIA ID [id number]) Performed By: #### BGLU #### [facility] [address] [place] [id number] GLUCOSE,BEDSIDE Collected: 03/30/2018 Status: F Source: [facility] [employer] [facility] 8:38 AM SYSTEM REPOSITORY TYPE CODE TESTS RESULT OUT OF RANGE REFERENCE UNITS LAB BGLU 70-100 mg/dL High 236 Glucose,Beds kyle Result Comment: Test performed by glucose meter. Results may be 10%-15% lower than serum/plasma values. (CLIA ID [id number]) Performed By: #### BGLU #### [facility] [address] [place] [address] HEMOGLOBIN A1C Collected: 03/30/2018 Status: F Source: [facility] [employer] [facility] 5:52 AM SYSTEM REPOSITORY TYPE CODE TESTS RESULT OUT OF REFERENCE UNITS RANGE LAB A1C2 4.0-5.7 % High Hemoglobin A1C 6.8 Result Comment: --HgbA1C levels may not be accurate in patients who have renal disease, received recent blood transfusions, are anemic, or who have dyshemoglobinemia. LAB EAG2 mg/dL Estimated Avg Glucose 148 Performed By: #### HA1C2 #### [facility] [address] [place] [address] GLUCOSE,BEDSIDE Collected: 03/29/2018 Status: F Source: [facility] [employer] 7:27 PM SYSTEM REPOSITORY TYPE CODE TESTS RESULT OUT OF RANGE REFERENCE UNITS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 current use of insulin ([facility]) !! blood sugar diagnostic (FREESTYLE LITE STRIPS) test strip Test blood sugar(s) 4-6 times daily. Dx: E11.65. Insulin: Yes Qty: 600 Strip Refills: 3 insulin needles (DISPOSABLE) 1 Each 1 Each as directed. TO BE USED DIRECTED. USE ONE NEEDLE FOR EACH DOSE Qty: 500 Each Refills: 3 mometasone-formoterol (DULERA) 2 Puffs Inhale 2 Puffs as instructed twice daily. Qty: 3 Inhaler Refills: 3 Comments: Med-sync patient. omeprazole (PriLOSEC) 20 mg Take 20 mg by mouth twice daily. Qty: 180 capsule Refills: 3 Comments: Med-sync patient. nystatin (MYCOSTATIN) 1 application Apply 1 application to affected area four times daily. Qty: 1 Bottle Refills: 0 Associated Diagnoses:Intertrigo doxepin capsule 25 mg take 1 to 2 capsules as needed for sleep Refills: 2 FLUoxetine HCl (PROzac) 40 mg Take 40 mg by mouth every morning. Refills: 2 risperiDONE (RISPERDAL) 1 mg tablet take 1 tablet every morning and 2 tablets at bedtime Refills: 2 !! COMPOUNDED PRESCRIPTION Medical Bracelet Dx: E11.65 Qty: 1 Each Refills: 0 !! Lancing Device (LANCING DEVICE WITH LANCETS) misc Use 4x daily Qty: 100 Each Refills: 3 Associated Diagnoses:Uncontrolled type 2 diabetes mellitus without complication, without long-term current use of insulin ([facility]) !! Blood-Glucose Meter (FREESTYLE LITE METER) monitoring kit Freestyle LITE Meter Kit - Dx: Type 2 DM - Uncontrolled E11.65 Insulin: yes Use 4-6 times daily as instructed Qty: 1 Each Refills: 0 !! Lancing Device misc use as directed for checking blood sugars - dx e11.9 Qty: 1 Each Refills: 0 CPAP Mask (per patient preference) optional chin strap (if indicated) , filters, tubing, humidifier and lifetime supplies. Qty: 1 Device Refills: 0 TENS unit and electrodes cmpk Use as instructed. He is intolerant to many meds due to Lactose intolerance. Based on muscle spasm and deconditiong, TENS is a good option Qty: 1 Device Refills: 0 pregabalin (LYRICA) 75 mg Take 75 mg by mouth twice daily. Qty: 60 capsule Refills: 0 Associated Diagnoses:Chronic left-sided low back pain with left-sided sciatica !! COMPOUNDED PRESCRIPTION BLOOD PRESSURE CUFF FOR HOME USE. DX: LABILE BLOOD PRESSURE Qty: 1 Device Refills: 0 Associated Diagnoses:Essential hypertension !! - Potential duplicate medications found. Please discuss with provider. At the day of discharge, patient was seen and examined. Vitals were reviewed and were stable. Swelling and pain significantly improved. No other complaints. Plastic surgery has been seeing pt daily and said to follow up with [facility] (no notes in chart for unclear reason). I talked to one yesterday and Dr Sorenson saw pt again today and talked to RN. Discharge planning discussed with patient and RN. Discussed with Dr Mcclelland about insulin regimen. Physical examination showed Gen: Alert, oriented, no distress, cooperative HENT: mild swelling of L face (almost resolved) Eyes: non-icteric CV: RRR, normal S1,S2, no murmur Resp: non-labored GI: soft, ND, NT Neuo: no focal deficit MS: no LE edema, no deformity The patient's risk for 30-day readmission is determined using the following contributing factors: Pt variables contributing to increased readmission risk: 35 Active Medication Orders 11 Most Recent BUN Result 9.2 First Resulted Calcium During Admission 1 Previous ED Visit (6 mos.)? 1 Number of Previous ED Visits (6 mos.) 1 Insurance - Medicaid 1 Discharge Disposition - Home 1 History of Anemia 1 Active Anticoagulant 1 Number of Hospitalizations (12 mos.) TIME OF CARE: Discharge Management: I personally spent greater than 30 minutes involved in the discharge management of this patient. SIGNATURE: Shante Byrnes MD PAGER/CONTACT #: DATE: February 27, 2018 TIME: 1:47 PM NURSING PROG Observed: 02/27/2018 Status: COMPLETED Source: [facility] 1:34 PM CLINIC OTHER CAMPUS REPOSITORY [facility] ID: [id number] Author: Christelle (Rn) ALISA Omalley Service: Nursing Author Type: Registered Nurse Type: Nursing Progress Note Filed: 02/27/2018 1:36 PM Note Text: RN spoke with Dr. Dinh Sorenson of plastic surgery. MD saw pt. today. stated they will not due surgery on pt. while he is here in the hospital d/t infection. Pt. is to go home with PO antibiotics and follow up with Dr. Hi. PLAN OF CARE Observed: 02/27/2018 Status: COMPLETED Source: [facility] 1:11 PM CLINIC OTHER CAMPUS REPOSITORY [facility] ID: [id number] Author: Ella Trotter (Cooler Deliverer) Service: (none) Author Type: (none) Type: Plan of Care Filed: 02/27/2018 1:41 PM Note Text: Attestation signed by Thom Lemus (Labor Economics Teacher) at 02/27/2018 1:55 PM Agree with student note below. Working with Endocrinology team to revise patient's insulin requirements. THOM LEMUS, COMPUTER GRAPHIC ARTIST MEDICATION HISTORY Patient Name:Sandhya Asif : 1985 Source of history:Pharmacy records: [facility] Medication Nonadherence Identified: FILLED FOR 30 DAY SUPPLY ON 12/30/2017. The above information represents the best possible medication history: Yes Additional comments: VERIFIED INSULIN DOSES WITH [facility] AT [facility]. MENTIONED THAT PATIENT IS ON HIGH DOSES OF INSULIN POSSIBLY DUE TO NON-COMPLIANCE AND A HIGH HbA1c (12.7%). HbA1c DROPPED FROM 12.7% IN APR 2017 TO 5.5% IN FEB 2018 POSSIBLY DUE TO PATIENT BECOMING COMPLIANT WITH MEDICATIONS. PATIENT REPORTS ADMINISTERING INSULIN ASPART THREE TIMES A DAY WITH MEALS AND TRESIBA 150 UNITS ONLY WHEN THE BLOOD GLUCOSE IS >130MG/DL. [facility] IS NOT ABLE TO REACH PATIENT TO SET UP APPOINTMENT. Allergies: ALLERGIES Allergen Reactions - [place] Anaphylaxis - Baclofen Other: See Comments Migraines and lightheadedness - Lactose Diarrhea - Penicillins GI Upset, Shortness of Breath - [place] Hives - Vicodin [Hydrocodon* Hives Preferred Pharmacy: [facility] Current [facility]IN[facility] Medications: Prior to Admission medications as of 02/27/18 1310 Medication Sig Last Dose Taking alcohol swabs (BD SINGLE USE SWABS REGULAR) padm Apply 1 application to affected area as needed. Yes DULoxetine (CYMBALTA) 30 mg capsule TAKE 1 CAPSULE EVERY DAY tiZANidine (ZANAFLEX) 4 mg tablet TAKE 1 TABLET TWICE DAILY NEEDED verapamil (CALAN, ISOPTIN) 40 mg tablet TAKE 1 TABLET BY MOUTH THREE TIMES DAILY TRESIBA FLEXTOUCH U-200 200 unit/mL (3 mL) injection Inject 150 Units subcutaneously every morning. SUMAtriptan (IMITREX) 100 mg tablet TAKE 1 TABLET at time of FOR MIGRAINE. Repeat once in 2 (TWO) hours if needed. Do not use on more than 2 (TWO) days per given week. cholecalciferol, Vitamin D3, (VITAMIN D3) 50,000 unit cap capsule Take 1 capsule by mouth once each week. diclofenac sodium (VOLTAREN) 1 % topical gel Apply 2 g to affected area four times daily. Blood-Glucose Meter monitoring kit Glucose Meter of Choice - Kit - Dx: Type 2 DM - Uncontrolled E11.65 blood sugar diagnostic (BLOOD GLUCOSE TEST) test strip Test blood sugar(s) 4-6 times daily. Dx: Type 2 DM - Uncontrolled E11.65 Insulin: Yes insulin aspart U-100 (NOVOLOG FLEXPEN U-100 INSULIN) 100 unit/mL inpn Inject 50 Units subcutaneously three times daily. metFORMIN ER (GLUCOPHAGE XR) 500 mg 24 hr tablet Take 2 tablets by mouth in the morning and 2 tablets in the evening. LACTOSE FREE MAPAP 325 mg tablet TAKE 2 TABLETS BY MOUTH EVERY 6 HOURS NEEDED FOR HEADACHE albuterol HFA (PROAIR HFA) 90 mcg/actuation inhaler Inhale 2 Puffs as instructed every 6 hours as needed. triamcinolone (KENALOG) 0.025 % lotn Apply 1 application to affected area three times daily. indomethacin (INDOCIN) 25 mg capsule Take 1 capsule by mouth three times daily with meals. divalproex DR (DEPAKOTE) 500 mg EC tablet Take 1 tablet by mouth three times daily. nadolol (CORGARD) 20 mg tablet Take 2 tablets by mouth once daily. nortriptyline (PAMELOR) 10 mg capsule Take 1 capsule by mouth daily at bedtime. prochlorperazine (COMPAZINE) 10 mg tablet Take 1 tablet by mouth every 8 hours as needed. lancets (FREESTYLE LANCETS) 28 gauge misc Test blood sugar(s) 4-6 x times daily. Dx: 250.02. Insulin: Yes lisinopril (PRINIVIL) 20 mg tablet Take 1 tablet by mouth once daily. LACTOSE FREE ONLY blood sugar diagnostic (FREESTYLE LITE STRIPS) test strip Test blood sugar(s) 4-6 times daily. Dx: E11.65. Insulin: Yes insulin needles, DISPOSABLE, (BD INSULIN PEN NEEDLE UF) 31 gauge x 5/16 ndle 1 Each as directed. TO BE USED DIRECTED. USE ONE NEEDLE FOR EACH DOSE mometasone-formoterol (DULERA) 200-5 mcg/actuation inhaler Inhale 2 Puffs as instructed twice daily. omeprazole (PRILOSEC) 20 mg capsule Take 1 capsule by mouth twice daily. nystatin (MYCOSTATIN) powder Apply 1 application to affected area four times daily. doxepin capsule 25 mg take 1 to 2 capsules as needed for sleep FLUoxetine HCl (PROZAC) 40 mg capsule Take 40 mg by mouth every morning. risperiDONE (RISPERDAL) 1 mg tablet take 1 tablet every morning and 2 tablets at bedtime COMPOUNDED PRESCRIPTION Medical Bracelet Dx: E11.65 Lancing Device (LANCING DEVICE WITH LANCETS) [facility] Use 4x daily Blood-Glucose Meter (FREESTYLE LITE METER) monitoring kit Freestyle LITE Meter Kit - Dx: Type 2 DM - Uncontrolled E11.65 Insulin: yes Use 4-6 times daily as instructed Lancing Device [facility] use as directed for checking blood sugars - dx e11.9 CPAP Mask (per patient preference) optional chin strap (if indicated) , filters, tubing, humidifier and lifetime supplies. TENS unit and electrodes [facility] Use as instructed. He is intolerant to many meds due to Lactose intolerance. Based on muscle spasm and deconditiong, TENS is a good option pregabalin (LYRICA) 75 mg capsule Take 1 capsule by mouth twice daily. COMPOUNDED PRESCRIPTION BLOOD PRESSURE CUFF FOR HOME USE. DX: LABILE BLOOD PRESSURE Elal Trotter (Cooler Deliverer) February 27, 2018 1:13 PM CONSULT PROG Observed: 02/27/2018 Status: COMPLETED Source: [facility] 11:45 AM CLINIC OTHER CAMPUS REPOSITORY [facility] ID: [id number] Author: Shelbi Mcclelland Service: Endocrinology Author Type: Physician Type: Consult Progress Note Filed: 02/27/2018 2:02 PM Note Text: ENDOCRINOLOGY CONSULT PROGRESS NOTE SERVICE DATE: 02/27/2018 SERVICE TIME: 11:45am Subjective INTERVAL HPI: pt followed for diabetes mellitus, insulin requiring; doing well on glargine 25 units daily, humalog for correction and metformin; better po intake; will need prandial insulin especially while on steroids; DIET FOOD CONSISTENCY CONTROLLED Recent Labs 02/27/18 1129 02/27/18 0654 02/27/18 0508 02/26/18 2200 02/26/18 0700 02/24/182019 GLUC -- -- 194* -- -- 146* -- 77 GLUCOSEMETER 202* 196* -- 273* < > -- < > -- < > = values in this interval not displayed. Current hospital medications: levoFLOXacin 750 mg in D5W 150 mL (LEVAQUIN) 750 mg INTRAVENOUS DAILY metroNIDAZOLE 500 mg PREMIX piggyback (FLAGYL) 500 mg INTRAVENOUS q 8 H insulin lispro 6 Units pen (rapid acting) (HumaLOG KWIKPEN) 6 Units SUBCUTANEOUS w MEALS insulin glargine 25 Units pen (long acting) (LANTUS SOLOSTAR, BASAGLAR KWIKPEN) 25 Units SUBCUTANEOUS DAILY (8 AM) metFORMIN 1,000 mg tab(s) (GLUCOPHAGE) 1,000 mg ORAL BID w MEALS dexamethasone 4 mg tab(s) (DECADRON) 4 mg ORAL TID w MEALS [START ON 02/28/2018] dexamethasone 4 mg tab(s) (DECADRON) 4 mg ORAL BID w MEALS insulin lispro pen (rapid acting) (HumaLOG KWIKPEN) SUBCUTANEOUS w MEALS albuterol HFA 90 mcg/actuation 2 Puff (PROVENTIL HFA, VENTOLIN HFA) 2 Puff INHALATION q 6 H PRN ergocalciferol (vitamin D2) 50,000 Units cap(s) (DRISDOL) 50,000 Units ORAL q [address] 500 mg tab(s) (DEPAKOTE) 500 mg ORAL TID doxepin 25 mg cap(s) (SINEquan) 25 mg ORAL HS PRN DULoxetine 30 mg cap(s) (CYMBALTA) 30 mg ORAL DAILY lisinopril 20 mg tab(s) (ZESTRIL, PRINIVIL) 20 mg ORAL DAILY nadolol 40 mg tab(s) (CORGARD) 40 mg ORAL DAILY acetaminophen 325 mg tab(s) (TYLENOL) 325 mg ORAL q 4 H PRN nortriptyline 10 mg cap(s) (PAMELOR) 10 mg ORAL AT BEDTIME prochlorperazine 10 mg tab(s) (COMPAZINE) 10 mg ORAL q 8 H PRN risperiDONE 1 mg tab(s) (RisperDAL) 1 mg ORAL DAILY verapamil 40 mg tab(s) (CALAN, ISOPTIN) 40 mg ORAL TID triamcinolone 0.025 % 1 application (KENALOG) 1 application TOPICAL TID heparin 5,000 Units injection 5,000 Units SUBCUTANEOUS q 12 H ondansetron 4 mg tab(s) (ZOFRAN) 4 mg ORAL q 6 H PRN ondansetron (PF) 4 mg injection (ZOFRAN) 4 mg INTRAVENOUS q 6 H PRN magnesium hydroxide 400 mg/5 mL 30 mL (MOM) 30 mL ORAL DAILY PRN docusate sodium 100 mg cap(s) (COLACE) 100 mg ORAL BID PRN bisacodyl 10 mg suppository (DULCOLAX) 10 mg RECTAL DAILY PRN acetaminophen 650 mg tab(s) (TYLENOL) 650 mg ORAL q 6 H PRN morphine 1-2 mg injection 1-2 mg INTRAVENOUS q 4 H PRN dextrose 40 % 15 g 15 g ORAL PRN glucagon 1 mg injection (GLUCAGEN) 1 mg INTRAMUSCULAR PRN dextrose 50% in water 25 mL syringe 12.5 g INTRAVENOUS PRN risperiDONE 2 mg tab(s) (RisperDAL) 2 mg ORAL AT BEDTIME fluticasone-vilanterol 200-25 mcg/dose 1 Inhalation (BREO ELLIPTA) 1 Inhalation INHALATION DAILY pantoprazole DR 40 mg tab(s) (PROTONIX) 40 mg ORAL DAILY (6 AM) Objective PHYSICAL EXAM: BP 136/79 Pulse 67 Temp (Src) 97.7 (Oral) Resp 18 Ht 5' 5 (1.65m) Wt 215 lb 3.2 oz (97.6kg) SpO2 100% BMI 35.81 kg/(m2). General: Well appearing, alert, in no acute distress, well- hydrated, well nourished. and Obese Skin: skin color, texture, turgor normal, no rashes or lesions. Head: normocephalic, no masses, lesions, tenderness or abnormalities. Eyes: PATRICIA Oropharynx: moist Neck: Supple, no adenopathy; thyroid symmetric, normal size, no bruits Heart: RRR without murmur, gallop, or rubs. No ectopy Abdomen: soft, non-tender, positive bowel sounds Extremities: no edema, no calluses or ulcers present. Peripheral Pulses: posterior tibial and doralis pedis pulses 2+ and symmetrical DATA: Diagnostic tests reviewed for today's visit: Most recent labs and imaging results. Assessment/Plan Diabetes mellitus, insulin requiring, currently on decadron; at home on high doses of insulin however questionable compliance; BS 200's,currently on lantus at 25 units qam, metformin and humalog for correction only; would program humalog 6 units qac tid; For home regimen would recommend Tresiba (U200) to take 25 units daily (instead of lantus); continue Novolog 6 units qac tid (instead of Humalog), metformin. ? Facial cellulitis on antibiotics per ID. ? SIGNATURE: Shelbi Mcclelland MD PATIENT NAME: Victor Hugo Asif DATE: February 27, 2018 TIME: 2:02 PM PAGER: [phone] GLUCOSE METER Collected: 02/27/2018 Status: F Source: [facility] 11:29 AM HEALTH SYSTEM REPOSITORY TYPE CODE TESTS RESULT OUT OF REFERENCE UNITS RANGE LAB GLUBL(LOINC 70-99 mg/dL ) High Glucose Meter 202 Result Comment: RN NOTIFIED Performed By: #### GLMET #### [place] [address] CASE MANAGEM Observed: 02/27/2018 Status: COMPLETED Source: [facility] 9:48 AM CLINIC OTHER CAMPUS REPOSITORY [facility] ID: [id number] Author: Edilberto Morgan (Sw) Service: Care Management Author Type: Swatch Folder Type: Care Mgt Progress Note Filed: 02/27/2018 9:53 AM Note Text: Reason for Admission: Facial cellulitis [L03.211] Infection [B99.9] Reason for Social Work Contact: Advance Directives Time Spent (minutes): 60 Information Obtained From: Patient Patient Granted Permission to Speak to Others in the Room: Not Applicable SOCIAL HISTORY Marital Status: In a Relationship. Relationship described as amicable Children (Including Quality of Relationship): Unknown Sexual Orientation: Heterosexual Gender Identity: Male Abuse History: Unknown Education History: Unknown Support System: Family: Status (Including History of Combat Experience): Unknown Legal History:Unknown Scientologist/Spirituality: Unknown Do Special Considerations/Accommodations Need to be Made? No Are There Practices or Beliefs That May Affect or Influence Care? No, Patient/Machined Parts Quality Inspector Denies Patient Strengths/Protective Factors: Able to Communicate Needs PSYCHIATRIC HISTORY: Family Psychiatric History Unknown Homicide/Suicide Risk None Substance Use and Treatment History: Unknown Offered Patient Resources: No DISCHARGE RECOMMENDATIONS: Food resruces Patient/Machined Parts Quality Inspector Agreeable With Discharge Recommendations At This Time? Yes OBSTACLES TO TREATMENT/POST-DISCHARGECHALLENGES: Food insecurity SW was consulted to assist pt with food resources, and to complete a HCPOA. Pt reported that he would like to complete a HCPOA naming his sister as his primary agent, and hi as his first alterate. JALEN provided pt with a copy of the documents and the original, placed a copy in pts chart, and had another sent to admitting. Pt reported that he may get food assistance but reported he often struggles to pay for his food. JALEN provided pt with a list of food pantries in [place]. Pt reported having no other needs at this time PROGRESS Observed: 02/27/2018 Status: COMPLETED Source: [facility] 9:14 AM CLINIC OTHER CAMPUS REPOSITORY O ID: [id number] Author: Jose Luis Becker Service: Infectious Disease Author Type: Physician Type: Progress Notes Filed: 02/27/2018 9:20 AM Note Text: INFECTIOUS DISEASE CONSULT PROGRESS NOTE SERVICE DATE: 02/27/2018 SERVICE TIME: 9:15 AM Subjective INTERVAL HISTORY: Sitting up in chair, says pain in L face is 8 out of 10. PERTINENT ROS: Denies fever or chills. Current Facility-Administered Medications: insulin glargine 25 Units pen (long acting) (LANTUS SOLOSTAR, BASAGLAR KWIKPEN) 25 Units SUBCUTANEOUS DAILY (8 AM) metFORMIN 1,000 mg tab(s) (GLUCOPHAGE) 1,000 mg ORAL BID w MEALS dexamethasone 4 mg tab(s) (DECADRON) 4 mg ORAL TID w MEALS cefepime 2 g in D5W 100 mL MB+ (MAXIPIME) 2 g INTRAVENOUS q 12 HR vancomycin 1.5 g in D5W 250 mL (VANCOCIN) 0.015 g/kg/dose INTRAVENOUS q 12 HR insulin lispro pen (rapid acting) (HumaLOG KWIKPEN) SUBCUTANEOUS w MEALS metroNIDAZOLE 500 mg PREMIX piggyback (FLAGYL) 500 mg INTRAVENOUS q 8 H albuterol HFA 90 mcg/actuation 2 Puff (PROVENTIL HFA, VENTOLIN HFA) 2 Puff INHALATION q 6 H PRN ergocalciferol (vitamin D2) 50,000 Units cap(s) (DRISDOL) 50,000 Units ORAL q [address] 500 mg tab(s) (DEPAKOTE) 500 mg ORAL TID doxepin 25 mg cap(s) (SINEquan) 25 mg ORAL HS PRN DULoxetine 30 mg cap(s) (CYMBALTA) 30 mg ORAL DAILY lisinopril 20 mg tab(s) (ZESTRIL, PRINIVIL) 20 mg ORAL DAILY nadolol 40 mg tab(s) (CORGARD) 40 mg ORAL DAILY acetaminophen 325 mg tab(s) (TYLENOL) 325 mg ORAL q 4 H PRN nortriptyline 10 mg cap(s) (PAMELOR) 10 mg ORAL AT BEDTIME prochlorperazine 10 mg tab(s) (COMPAZINE) 10 mg ORAL q 8 H PRN risperiDONE 1 mg tab(s) (RisperDAL) 1 mg ORAL DAILY tiZANidine 4 mg tab(s) (ZANAFLEX) 4 mg ORAL BID PRN verapamil 40 mg tab(s) (CALAN, ISOPTIN) 40 mg ORAL TID triamcinolone 0.025 % 1 application (KENALOG) 1 application TOPICAL TID heparin 5,000 Units injection 5,000 Units SUBCUTANEOUS q 12 H ondansetron 4 mg tab(s) (ZOFRAN) 4 mg ORAL q 6 H PRN Or ondansetron (PF) 4 mg injection (ZOFRAN) 4 mg INTRAVENOUS q 6 H PRN magnesium hydroxide 400 mg/5 mL 30 mL (MOM) 30 mL ORAL DAILY PRN docusate sodium 100 mg cap(s) (COLACE) 100 mg ORAL BID PRN bisacodyl 10 mg suppository (DULCOLAX) 10 mg RECTAL DAILY PRN acetaminophen 650 mg tab(s) (TYLENOL) 650 mg ORAL q 6 H PRN morphine 1-2 mg injection 1-2 mg INTRAVENOUS q 4 H PRN dextrose 40 % 15 g 15 g ORAL PRN Or glucagon 1 mg injection (GLUCAGEN) 1 mg INTRAMUSCULAR PRN Or dextrose 50% in water 25 mL syringe 12.5 g INTRAVENOUS PRN risperiDONE 2 mg tab(s) (RisperDAL) 2 mg ORAL AT BEDTIME fluticasone-vilanterol 200-25 mcg/dose 1 Inhalation (BREO ELLIPTA) 1 Inhalation INHALATION DAILY pantoprazole DR 40 mg tab(s) (PROTONIX) 40 mg ORAL DAILY (6 AM) Objective PHYSICAL EXAM: Vital Signs: BP 136/79 Pulse 67 Temp 36.5 ?C (97.7 ?F) (Oral) Resp 18 Ht 165.1 cm (5' 5) Wt 97.6 kg (215 lb 3.2 oz) SpO2 100% BMI 35.81 kg/m? HEENT tenderness, induration and edema over L face/jaw Lungs CTA anteriorly Heart RRR Abdomen soft, NT Extremities no C/C/E DATA: Diagnostic Tests Reviewed for Today's Visit: 02/25 culture with mixed skin olga lidia, creatinine 0.8, WBC 15, vanco trough 11 Impression/Recommendations Active Problems: Facial cellulitis POA: Yes Assessment AND Plan: No MRSA isolated so DC vancomycin. Failed clindamycin as outpatient and pencillin allergic so limited PO options. CT from 02/17 did not show any abscess or evidence of osteomyelitis. Change to levaquin and flagyl now. When ready for DC send out with avelox 400 mg PO x2 weeks and follow up in my office then. ID sign off. SIGNATURE: Jose Luis Becker MD, MS, FACP, FIDSA PATIENT NAME: Victor Hugo Asif DATE: February 27, 2018 TIME: 9:14 AM PAGER/CONTACT #: [phone] [id number] Collected: 02/27/2018 Status: F Source: [facility] 5:08 AM HEALTH SYSTEM REPOSITORY TYPE CODE TESTS RESULT OUT OF RANGE REFERENCE UNITS LAB GFRFN(LOINC >60mL/min/1.73m ) 2 eGFR >60 Result Comment: If the patient is , multiply the result by 1.210. Performed By: #### GFR #### [facility] [address] [place] [address] HEMOGRAM/DIFF Collected: 02/27/2018 Status: F Source: [facility] 5:08 AM HEALTH SYSTEM REPOSITORY TYPE CODE TESTS RESULT OUT OF REFERENCE UNITS RANGE LAB WBC(LOINC) 4.23-9.07 thou/cmm WBC High 15.70 LAB RBC(LOINC) 4.63-6.08 mil/cmm Low RBC 4.24 LAB HGB(LOINC) 13.7-17.5 g/dL Low Hgb 11.3 LAB HCT(LOINC) 40.1-51.0 % Low Hct 34.8 LAB MCV(LOINC) 83.2-95.6 fl Low MCV 82.1 LAB MCH(LOINC) 25.7-32.2 pg MCH 26.7 LAB MCHC(LOINC 32.3-36.5 % ) MCHC 32.5 LAB RDW(LOINC) 11.6-14.4 % RDW 13.1 LAB RDWSD(LOIN 36.1-45.8 fl C) RDW SD 39.1 LAB PLT(LOINC) 141-365 thou/cmm Platelet 269 LAB MPV(LOINC) 8.7-12.0 fl MPV 10.8 LAB SEG(LOINC) % Seg Neutrophil 92.2 LAB IGRE(LOINC % ) Immature Grans 0.90 LAB LYMPH(LOIN % C) Lymphocyte 4.8 LAB MNO(LOINC) % Monocyte 2.0 LAB EOSIN(LOIN % C) Eosinophil 0.0 LAB BASO(LOINC % ) Basophil 0.1 LAB SEGN(LOINC 1.78-5.38 thou/cmm ) Abs. High Neut (ANC) 14.48 LAB IGAB(LOINC 0.00-0.05 thou/cmm ) Abs High Immature Grans 0.14 LAB LYMN(LOINC 0.84-2.85 thou/cmm ) Low Abs. Lymph 0.75 LAB MONON(LOIN 0.30-0.82 thou/cmm C) Abs. Crane 0.31 LAB EOSN(LOINC 0.04-0.54 thou/cmm ) Low Abs. Eosin 0.00 LAB BASON(LOIN 0.01-0.08 thou/cmm C) Abs. Baso 0.02 Result Comment: Smear scanned; tech agrees with automated differential Performed By: #### CBCD1 #### [place] [address] BASIC PANEL Collected: 02/27/2018 Status: F Source: [facility] 5:08 AM HEALTH SYSTEM REPOSITORY TYPE CODE TESTS RESULT OUT OF REFERENCE UNITS RANGE LAB NA(LOINC) 136-145 mEq/L Sodium Blood 136 LAB K(LOINC) 3.5-5.1 mEq/L Potassium Blood 4.5 LAB CL(LOINC) 98-107 mEq/L Chloride Blood 101 LAB CO2(LOINC) 21-32 mEq/L CO2 Blood 27 LAB GLU(LOINC) 70-99 mg/dL Glucose High Blood 194 LAB BUN(LOINC) 7-18 mg/dL BUN Blood 11 LAB CREA(LOINC 0.67-1.17 mg/dL ) Creatinine Blood 0.81 LAB CA(LOINC) 8.5-10.1 mg/dL Calcium Blood 9.3 LAB ANGAP(LOIN 8-16 C) Anion Gap 13 Performed By: #### P8 #### [place] [address] VANCOMYCIN,TROUGH Collected: Status: F Source: [facility] 02/26/2018 9:45 PM [facility] REPOSITORY TYPE CODE TESTS RESULT OUT OF RANGE REFERENCE UNITS LAB VANCT(LOINC 10.0-20.0 mg/L ) 11.0 Vancomycin,T rough Performed By: #### VANCT #### [place] [address] CASE MANAGEM Observed: 02/26/2018 Status: COMPLETED Source: [facility] 3:19 PM CLINIC OTHER CAMPUS REPOSITORY HNO ID: [id number] Author: Rhona WadeRn) ALISA Massey Service: Care Management Author Type: Registered Nurse Type: Care Mgt Progress Note Filed: 02/26/2018 3:21 PM Note Text: CARE MANAGEMENT PROGRESS NOTE SERVICE DATE: 02/26/2018 SERVICE TIME: 3:20 PM LOS: 2 days Disposition plan: Home with FREEDOM OF CHOICE EXPLAINED: N/A POTENTIAL TRANSITION PLANS Transportation home at discharge Functional Status: Resides with in two story house. Fall within last 3 mth, fell down stair 2/2 feet gave out DME: Glucometer, BS check TID. Cane, walker, CPAP, bialt hearing aid, AFO left Transportation: [employer] Food: Difficulty maintaining food throughout month, run out of food towards end of the month. Pt gets food stamps AD: Ref SW to complete ER Contact: Taina Asif spouse [phone]. [id number] Charla Mcgarry [phone] Referral to SW to complete AD, assist with food dasilva, transportation home Goal for this visit: Get better and be able to successfully eat all foods Barriers to med adherence: Limited support system (foster mother lives in [place]), financial, difficulty maintaining food in house throughout the month Met with pt at bedside. Plan to return home with at discharge. SIGNATURE: Rhona Massey RN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 evaluation by mental health services Impression: [] Reported suicidal ideation, reported some type of threat to injure and her male friend This note was generated with TOPSEC dictation software. It may contain incorrect words, spelling, and punctuation that were not noted in review of the chart prior to signing ED Disposition - Plan for ED Patient: Chief Complaint: Mental Status Change Referrals: Ranjit Azar DO [Primary Care Provider] - What to do if you have Problems For any increased pain, shortness of breath, bleeding, nausea or vomiting, chest pain, or any unexpected problems, contact your Primary Care Provider. Call [facility] ([phone]) or report to the closest Emergency Room. Call 911 if necessary. 01/11/18 1534 <Electronically signed by Steph Mc MD> Date Steph Mc MD Cosigner Signature (If Indicated): Date CC: Ranjit Anguiano DO URINE DRUG SCREEN Collected: 01/11/2018 Status: F Source: PARMJIT (VISTA) 11:55 AM [facility] REPOSITORY TYPE CODE TESTS RESULT OUT OF RANGE REFERENCE UNITS LAB L505.0075 TO BE Normal CONFIRMED Result Comment: CONFIRMATORY TESTING FOR ALL POSITIVE URINE DRUG SCREEN RESULTS WILL ONLY BE SENT OUT UPON PHYSICIAN ORDER. VISTA Urine Drug Screen methods provide only preliminary analytical test results. A more specific alternate chemical method must be used in order to obtain a confirmed analytical result. Gas chromatography/mass spectrometery (GC/MS) is the preferred confirmatory method. Clinical consideration and professional judgement should be applied to any drug of abuse test result, particularly when preliminary positive results are used. URINE TCA TESTING MUST BE ORDERED SEPARATELY. USE TEST MNEMONIC: [facility] LAB L505.5005 VISTA UDS PH 7 Normal LAB L505.5015 <1000 ng/mL AMPHETAMINES Normal NEGATIVE LAB L505.5025 < 200 ng/mL BARBITIURATES Normal NEGATIVE LAB L505.5035 < 200 ng/mL BENZODIAZIPINE Normal NEGATIVE LAB L505.5045 < 300 ng/mL COCAINE Normal NEGATIVE LAB L505.5055 < 500 ng/mL ECSTACY Normal NEGATIVE LAB L505.5065 < 300 ng/mL METHADONE Normal NEGATIVE LAB L505.5075 < 300 ng/mL OPIATES Normal NEGATIVE LAB L505.5085 < 25 ng/mL PCP Normal NEGATIVE LAB L505.5095 < 50 ng/mL THC Normal NEGATIVE Performed By: #### L505.5000 #### [facility] [address] [place], [place], [address] CBC W/DIFF, AUTOMATED Collected: 01/11/2018 Status: F Source: [place] 11:47 AM [facility] REPOSITORY TYPE CODE TESTS RESULT OUT OF RANGE REFERENCE UNITS LAB L100.1000 4.4-11.0 K/mm3 Normal WBC 5.2 LAB L100.1200 4.6-6.2 M/mm3 Low RBC 4.39 LAB L100.1300 13.0-16.5 g/dl Low HGB 11.8 LAB L100.1400 40-54 % Low HCT 36.5 LAB L100.1500 80-94 fL Normal MCV 83.1 LAB L100.1600 27.0-32.0 pg Low MCH 26.9 LAB L100.1700 32-36 g/gl Normal MCHC 32.3 LAB L100.1810 11.6-14.6 % Normal RDW CV 13.1 LAB L100.1820 35.1-43.9 fl Normal RDW SD 40.0 LAB L100.1900 150-450 K/mm3 Normal PLT 225 LAB L100.2000 6.2-12.0 fl Normal MPV 10.7 LAB L100.2100 47-70 % Normal NEUT% 60.5 LAB L100.2200 19-41 % Normal LY% 33.5 LAB L100.2300 0-10 % Normal MONO% 5.2 LAB L100.2400 0-5 % Normal EO% 0.4 LAB L100.2500 0-1 % Normal BASO% 0.4 LAB L100.2550 0.0-0.9 % Normal IM GRAN % 0.000 Result Comment: IG% - Immature Granulocytes (promyelocytes, myelocytes and metamyelocytes) > 1% indicates that a LEFT SHIFT is Present. LAB L100.2620 2.0-7.7 X10 3/uL Normal Absolute Neut 3.1 LAB L100.2720 0.83-4.51 X10 3/ul Normal Absolute Lymph 1.73 Performed By: #### L100.0100 #### [facility] [address] [facility] [place], [place], [address] BASIC METABOLIC Collected: 01/11/2018 Status: F Source: [place] PROFILE (BMP) 11:47 AM [facility] REPOSITORY TYPE CODE TESTS RESULT OUT OF RANGE REFERENCE UNITS LAB L501.0100 74-106 mg/dL Normal GLU 101 Result Comment: Fasting Glucose result from 100 to 125 mg/dL suggests IMPAIRED HOMEOSTASIS per A.D.A. criteria. Please note revised GLUCOSE reference range effective 2017. LAB L501.1000 7-18 mg/dL Normal BUN 10 LAB L501.1100 0.70-1.30 mg/dL Normal CREAT,SERUM 0.89 Result Comment: The validity of the calculated GFR AND GFRAA in patients over 70 years has not been determined. Clinical correlation is essential. LAB L501.1110 >60 mL/min Normal EST GFR 104 Result Comment: Non- GFR Calc LAB L501.1115 >60 mL/min Normal EST GFR - AA 126 Result Comment: GFR Calc LAB L501.1255 ml/min Normal Estimated CRCL 101.73 LAB L501.1300 10-20 RATIO BUN/CRE Normal 11.2 LAB L501.2200 8.5-10 mg/dL .1 CA Normal 8.8 LAB L501.5300 136-14 mmol/L 5 NA Normal 142 LAB L501.5600 3.5-5. mmol/L 1 K Normal 3.5 LAB L501.5900 98-107 mmol/L CL Normal 107 LAB L501.6100 21.0-3 mmol/L 2.0 CO2 Normal 24.0 LAB L501.6200 5-15 GAP Normal 11 Performed By: #### L500.2500 #### [facility] [address] [facility] [place], [place], [address] ALCOHOL, BLOOD Collected: 01/11/2018 Status: F Source: PARMJIT (MEDICAL)-SERUM 11:47 AM [facility] REPOSITORY TYPE CODE TESTS RESULT OUT OF RANGE REFERENCE UNITS LAB L501.9100 mg/dL Normal SERUM < 3.0 ETOH Result Comment: The serum:whole blood ethanol ratio is approximately 1.14 and varies slightly with hematocrit. Medical Alcohol reference interval and critical value in non-tolerant individuals; 50 - 100 Impairment 100 Intoxication 100 - 250 Severe Poisoning 250 - 400 Deep/possible fatal coma Performed By: #### L501.9100 #### [facility] [address] [facility] [place], [address] 12 LEAD ELECTROCARDIOGRAM Observed: 01/08/2018 Status: F Source: [place] 1:43 PM [facility] REPOSITORY [facility] Cardiovascular Services [address] [place] [id number] 12 Lead EKG 01/03/18 0954 MR#: [id number] Acct: [id number] Name: VICTOR HUGO ASIF Rep #: [id number] : 1985 32 From: Shakir Ochoa MD Attending Dr: Status: DEP ER Ordering Dr: Reggie Lay MD Date: 01/03/18 Location: ED Sex: M AA Admitted: Test Reason : GEN ILLNESS Blood Pressure : / mmHG Vent. Rate : 077 BPM Atrial Rate : 077 BPM P-R Int : 148 ms QRS Dur : 096 ms QT Int : 374 ms P-R-T Axes : 051 039 032 degrees QTc Int : 423 ms Sinus rhythm with marked sinus arrhythmia Otherwise normal ECG Confirmed by SHUBHAM JOSEPH, HSAKIR ([id number]), electronic news gathering editor CHARLA CLEANING ([id number]) on 01/08/2018 1:42:44 PM Referred By: KEVEN Confirmed By:SHAKIR OCHOA MD 01/08/18 1342 Date Shakir Ochoa MD CC: Ranjit Anguiano DO; Reggie Lay MD Signed DISCHARGE INSTRUCTION Observed: 01/03/2018 Status: F Source: PARMJIT 11:31 AM [facility] Medical Records Department [address] [place] [address] Discharge Instruction 01/03/18 1130 MR#: [id number] Acct: [id number] Name: VICTOR HUGO ASIF Aydee Rep #: [id number] : 1985 32 From: Reggie Lay MD PCP: Ranjit Anguiano DO Status: REG ER ED Disposition - Plan for ED Patient: Chief Complaint: General Illness Instructions: ED Neuropathy Peripheral, ED Nausea Vomiting Referrals: Ranjit Azar DO [Primary Care Provider] - What to do if you have Problems For any increased pain, shortness of breath, bleeding, nausea or vomiting, chest pain, or any unexpected problems, contact your Primary Care Provider. Call [facility] ([phone]) or report to the closest Emergency Room. Call 911 if necessary. 01/03/18 1131 <Electronically signed by Reggie Lay MD> Date Reggie Lay MD Cosigner Signature (If Indicated): Date CC: Ranjit Anguiano DO EMERGENCY DEPARTMENT Observed: 01/03/2018 Status: F Source: [place] SUMMARY 11:30 AM [facility] Medical Records Department [address] [place] [address] Emergency Department Summary 01/03/18 1128 MR#: [id number] Acct: [id number] Name: VICTOR HUGO ASIF Aydee Rep #: [id number] : 1985 32 From: Reggie Lay MD PCP: Ranjit Anguiano DO Status: REG ER - ER Visit Summary Date of Service: 01/03/18 Chief Complaint: Multiple complaints History of Present Illness: The patient is a 32 M who presents with chief complaint of I am falling apart. It is difficult to ascertain what exactly brought him in today. He complains of chronic back pain. He complains of bilateral feet tingling for many months. He states he did feel short of breath earlier this morning but that this improved with an inhaler. He had some nausea and vomiting this morning as well. He denies fevers or chest pain. He denies recent illness. He was at work today and states that he just could not continue to work so they advised him to go get checked out. Physical Examination: Afebrile initial heart rate 1 1 vitals otherwise normal Heart regular slightly tachycardic Lungs are clear Abdomen soft Alert Test Results: EKG shows sinus rhythm at a rate of 77. Chest x-ray normal. Labs notable for hemoglobin 12.2, glucose 151, anion gap is normal. Urinalysis shows glucose otherwise normal. Emergency Department Course and Treatment: Patient was treated with IV fluids. On reevaluation he is resting comfortably. He presents with multiple chronic problems. His larger concern is the tingling in his feet. I advised that given that this been going on for many months and he is diabetic I suspect it is related to peripheral neuropathy. He states he has not seen his primary care physician for this. I advised that he follow- up with his primary care physician as soon as possible. He understands return for new or worsening symptoms. He was discharged. Treatment Plan: [] Disposition: Discharge Impression: Peripheral neuropathy Vomiting Shortness of breath This note was generated with TOPSEC dictation software. It may contain incorrect words, spelling, and punctuation that were not noted in review of the chart prior to signing ED Disposition - Plan for ED Patient: Chief Complaint: General Illness Referrals: Ranjit Azar, DO [Primary Care Provider] - What to do if you have Problems For any increased pain, shortness of breath, bleeding, nausea or vomiting, chest pain, or any unexpected problems, contact your Primary Care Provider. Call [facility] ([phone]) or report to the closest Emergency Room. Call 911 if necessary. 01/03/18 1130 <Electronically signed by Reggie Lay MD> Date Reggie Lay MD Cosigner Signature (If Indicated): Date CC: Ranjit Anguiano DO CBC W/DIFF, AUTOMATED Collected: 01/03/2018 Status: F Source: [place] 10:47 AM [facility] REPOSITORY TYPE CODE TESTS RESULT OUT OF RANGE REFERENCE UNITS LAB L100.1000 4.4-11.0 K/mm3 Normal WBC 8.6 LAB L100.1200 4.6-6.2 M/mm3 Low RBC 4.53 LAB L100.1300 13.0-16.5 g/dl Low HGB 12.2 LAB L100.1400 40-54 % Low HCT 38.0 LAB L100.1500 80-94 fL Normal MCV 83.9 LAB L100.1600 27.0-32.0 pg Low MCH 26.9 LAB L100.1700 32-36 g/gl Normal MCHC 32.1 LAB L100.1810 11.6-14.6 % Normal RDW CV 13.0 LAB L100.1820 35.1-43.9 fl Normal RDW SD 39.6 LAB L100.1900 150-450 K/mm3 Normal PLT 201 LAB L100.2000 6.2-12.0 fl Normal MPV 10.0 LAB L100.2100 47-70 % High NEUT% 80.1 LAB L100.2200 19-41 % Low LY% 16.3 LAB L100.2300 0-10 % Normal MONO% 3.4 LAB L100.2400 0-5 % Normal EO% 0.0 LAB L100.2500 0-1 % Normal BASO% 0.2 LAB L100.2550 0.0-0.9 % Normal IM GRAN % 0.000 Result Comment: IG% - Immature Granulocytes (promyelocytes, myelocytes and metamyelocytes) > 1% indicates that a LEFT SHIFT is Present. LAB L100.2620 2.0-7.7 X10 3/uL Normal Absolute Neut 6.9 LAB L100.2720 0.83-4.51 X10 3/ul Normal Absolute Lymph 1.39 Performed By: #### L100.0100 #### [facility] [address] [place], [address] BASIC METABOLIC Collected: 01/03/2018 Status: F Source: [place]IT PROFILE ([facility]) 10:47 AM [facility] REPOSITORY TYPE CODE TESTS RESULT OUT OF RANGE REFERENCE UNITS LAB L501.0100 74-106 mg/dL High GLU 151 Result Comment: Fasting Glucose result greater than or equal to 126 mg/dL suggests DIABETES MELLITUS per A.D.A. criteria. Please note revised GLUCOSE reference range effective 2017. LAB L501.1000 7-18 mg/dL Normal BUN 10 LAB L501.1100 0.70-1.30 mg/dL Normal CREAT,SERUM 0.95 Result Comment: The validity of the calculated GFR AND GFRAA in patients over 70 years has not been determined. Clinical correlation is essential. LAB L501.1110 >60 mL/min Normal EST GFR 96 Result Comment: Non- GFR Calc LAB L501.1115 >60 mL/min Normal EST GFR - AA 116 Result Comment: GFR Calc LAB L501.1255 ml/min Normal Estimated CRCL 95.31 LAB L501.1300 10-20 RATIO Normal BUN/CRE 10.5 LAB L501.2200 8.5-10 mg/dL Normal .1 CA 9.0 LAB L501.5300 136-14 mmol/L Normal 5 NA 142 LAB L501.5600 3.5-5. mmol/L Normal 1 K 4.1 LAB L501.5900 98-107 mmol/L Normal CL 105 LAB L501.6100 21.0-3 mmol/L Normal 2.0 CO2 29.0 LAB L501.6200 5-15 Normal GAP 8 Performed By: #### L500.2500 #### [facility] [address] [place], [address] URINALYSIS, COMPLETE Collected: 01/03/2018 Status: F Source: [place]IT 10:36 AM [facility] REPOSITORY Order Comment: How was Urine Obtained? CLEAN CATCH TYPE CODE TESTS RESULT OUT OF RANGE REFERENCE UNITS LAB L400.3000 Yellow COLOR Normal Yellow LAB L400.3050 Clear Normal CLARITY Clear LAB L400.3200 Normal mg/dl High GLUCOSE, UR 1000 LAB L400.3300 Negative mg/dL Normal BILIRUBIN URINE Negative LAB L400.3400 Negative mg/dl High 15 KETONE UR LAB L400.3465 1.002-1.030 Normal SP.GR. DIPSTX 1.010 LAB L400.3550 5.0 - 8.0 pH UR Normal 5.0 LAB L400.3600 Negative mg/dl High PROT 30 DIPSTX LAB L400.3700 Normal mg/dl Normal UROBILI Normal LAB L400.3750 Negative Normal NITRITE UR Negative LAB L400.3780 Negative /ul Normal OCCULT BLOOD-UR Negative LAB L400.3800 Negative /ul LEUK Normal ESTERASE Negative LAB L400.4050 0-5 /hpf WBC 0 Normal SEEN LAB L400.4100 0-5 /hpf 0 Normal RBC-UA SEEN LAB L400.4150 0-5 /hpf SQUAM 0 Normal EPI SEEN LAB L400.4300 None Seen /hpf 0 Normal BACTERIA SEEN LAB L400.4350 <or=2+ /hpf 0 Normal MUCUS, URINE SEEN Performed By: #### L400.0001 #### [facility] [address] [facility] [place], [address] CHEST PA AND LATERAL Observed: 01/03/2018 Status: F Source: [place] 9:51 AM [facility] REPOSITORY [facility] Imaging Services [address] [place] [address] Chest PA and Lateral MR#: [id number] Acct: [id number] Name: VICTOR HUGO ASIF Rep #: [id number] : 1985 M 32 From: Florentin Quan MD PCP: Ranjit Anguiano DO Status: REG ER Study: Chest PA and Lateral Date of Exam: 01/03/18 Exam# [id number] Ordering Dr: Reggie Lay MD STUDY: X-RAY CHEST REASON FOR EXAM: Male, 32 years old. Syncopal episode. TECHNIQUE: AP and lateral views of the chest. COMPARISON: Comparison is made with prior study dated February 23, 2016. FINDINGS: EKG electrodes are seen. The lungs are clear and expanded. There is no demonstrated pleural abnormality. Normal size heart. Normal mediastinum and alanis. Normal visualized pulmonary arteries. Normal visualized aortic arch and descending thoracic aorta. There are mild degenerative changes of the visualized thoracic spine. Normal visualized ribs, clavicles, and shoulders. There is no demonstrated abnormality of the visualized soft tissue structures of the upper abdomen. RAD/Chest PA and Lateral IMPRESSION: Normal x-ray examination of the chest. Electronically Signed: Florentin Quan MD at 11:22 EDT Tel [phone], Service support , CC: Ranjit Anguiano DO; Reggie Lay MD Small Order Cutter: Signed EMERGENCY DEPARTMENT Observed: 01/01/2018 Status: F Source: [place] SUMMARY 12:25 AM [facility] Medical Records Department [address] [place] [address] Emergency Department Summary 12/25/17 1150 MR#: [id number] Acct: [id number] Name: VICTOR HUGO ASIF Rep #: [id number] : 1985 32 From: Todd Taylor DO PCP: Ranjit Anguiano DO Status: DEP ER - ER Visit Summary Date of Service: 12/25/17 Chief Complaint: Multiple complaints History of Present Illness: The patient is a 32 M who is well- known to the emergency department for his frequent use. Patient has a history of diabetes hypertension seizures anxiety depression. Patient states I am going through issues last night and today. He states that he tried to go to work but between his tingling in his legs (which is not new) and his migraine today he is not sure he can work. He states that he called the nurses line and they highly recommend he come to the emergency department because he states that he took a razor blade to his leg and he just could not feel it. Patient also states that he was trying to check his reflexes at home and he does not have any reflexes. Patient states that when I blink I do not feel like I am in the place where I am. I do not think I can work like this. I am taking 2 medications and I feel like a zombie and I want to stop taking some of my medicines but do not know who to talk to. Headache is generalized. There is no photophobia. It is throbbing in nature. Physical Examination: Afebrile vital signs stable Gen: Well-nourished well-developed Head: Normocephalic atraumatic Eyes: Perrl EOMI ENT: TMs clear no rhinorrhea moist mucous membranes Neck: Supple no lymphadenopathy no JVD nontender CVS: Regular rate rhythm no murmurs normal S1-S2 Respiratory: No distress clear to auscultation bilaterally chest nontender Abdomen: Soft nontender nondistended normal bowel sounds no masses Back: Nontender Extremity: Nontender no edema Skin: Normal color no rash Neuro: alert orientated 3 CN II-XII intact normal strength gait cerebellar Psych: Tearful at times suicidal Test Results: BMP and Depakote levels were obtained. Emergency Department Course and Treatment: I think that the patient most likely has a diabetic neuropathy. I think because of his mental illness he is exacerbating many of his symptoms and this is compounded by the stress he is experiencing last night today. I think counseling would do him good as well as visiting with his primary care doctor. I gave him a dose of Toradol here in the department. Patient has an appointment today with the counseling center. I believe most of the patient's issues here today are related to his coping skills. Headache is improved Impression: 1. Headache 2. Depression and anxiety This note was generated with TOPSEC dictation software. It may contain incorrect words, spelling, and punctuation that were not noted in review of the chart prior to signing ED Disposition - Plan for ED Patient: Disposition: Home or Assisted Living Chief Complaint: Headache Instructions: ED Cephalgia Unspecified Referrals: Ranjit Azar DO [Primary Care Provider] - 3-5 Days Counseling,Center [GROUP OF PHYSICIANS] - Keep William appointment What to do if you have Problems For any increased pain, shortness of breath, bleeding, nausea or vomiting, chest pain, or any unexpected problems, contact your Primary Care Provider. Call [facility] ([phone]) or report to the closest Emergency Room. Call 911 if necessary. 01/01/18 0025 <Electronically signed by Todd Taylor DO> Date Todd Taylor DO Timothyigndennis Signature (If Indicated): Date CC: Ranjit Anguiano, DO VALPROIC ACID Collected: 12/25/2017 Status: F Source: PARMJIT (DEPAKENE) LEVEL 12:29 PM [facility] REPOSITORY TYPE CODE TESTS RESULT OUT OF REFERENCE UNITS RANGE LAB L501.8100 50-100 ug/mL Low VALPROIC ACID 7 Performed By: #### L501.8100 #### [facility] [address] [place], [place], [address] BEDSIDE GLUCOSE Collected: 12/25/2017 Status: F Source: PARMJIT 11:10 AM [facility] REPOSITORY TYPE CODE TESTS RESULT OUT OF RANGE REFERENCE UNITS LAB L501.080 70-110 mg/dL Normal BEDSIDE GLU 110 Result Comment: MANAGEMENT OF PATIENT CARE PER NURSING PROTOCOL Performed By: #### L501.080 #### [facility] Point of Care [address] [place] [address]. [place], [place] [id number] BASIC METABOLIC Collected: 12/25/2017 Status: F Source: PARMJIT PROFILE (BMP) 11:07 AM [facility] REPOSITORY TYPE CODE TESTS RESULT OUT OF RANGE REFERENCE UNITS LAB L501.0100 74-106 mg/dL High GLU 109 Result Comment: Fasting Glucose result from 100 to 125 mg/dL suggests IMPAIRED HOMEOSTASIS per A.D.A. criteria. Please note revised GLUCOSE reference range effective 2017. LAB L501.1000 7-18 mg/dL Normal BUN 10 LAB L501.1100 0.70-1.30 mg/dL Normal CREAT,SERUM 0.89 Result Comment: The validity of the calculated GFR AND GFRAA in patients over 70 years has not been determined. Clinical correlation is essential. LAB L501.1110 >60 mL/min Normal EST GFR 104 Result Comment: Non- GFR Calc LAB L501.1115 >60 mL/min Normal EST GFR - AA 125 Result Comment: GFR Calc LAB L501.1255 ml/min Normal Estimated CRCL 101.73 LAB L501.1300 10-20 RATIO BUN/CRE Normal 11.2 LAB L501.2200 8.5-10 mg/dL .1 CA Normal 9.6 LAB L501.5300 136-14 mmol/L 5 NA Normal 138 LAB L501.5600 3.5-5. mmol/L 1 K Normal 4.0 LAB L501.5900 98-107 mmol/L High CL 108 LAB L501.6100 21.0-3 mmol/L 2.0 CO2 Normal 24.0 LAB L501.6200 5-15 GAP Normal 6 Performed By: #### L500.2500 #### [facility] [address] [place], [address] PROGRESS Observed: 12/19/2017 Status: COMPLETED Source: [place]ALLACE 3:[address] [facility] REPOSITORY HNO ID: [id number] Author: Annika Romero (Contracting Manager) Jennifer Service: (none) Author Type: Nurse Practitioner Type: Progress Notes Filed: 12/19/2017 3:16 PM Note Text: HPI/CC: Victor Hugo Asif is a 32 year old male who presents for F/U 3 Month (form for social security). Overall doing well. Checking BG levels 3-4 times a day. States AM fasting is high but has had low blood glucoses. Patient uses candy to increase his blood glucose levels. Requesting Disability forms completed. ROS as above, otherwise non-contributory. Reviewed PMHx, PSHx, social Hx, medications and allergies. PHYSICAL EXAMINATION: BP 139/88 (BP Site: Left Arm, BP Position: Sitting, BP Cuff Size: Large Adult) Pulse 79 Temp 36.6 ?C (97.8 ?F) (Temporal Artery) Resp 16 Wt 96.6 kg (213 lb 0.6 oz) SpO2 100% BMI 35.45 kg/m? General appearance: Well appearing, alert, in no acute distress, well-hydrated, well nourished. Skin: Skin color, texture, turgor normal, no suspicious rashes or lesions ASSESSMENT/PLAN: 1. Uncontrolled type 2 diabetes mellitus without complication, without long-term current use of insulin (HCC) - ICD9: 250.02, ICD10: E11.65 Controlled. improved control - Continue current medications - Follow up with PharmD as prescribed Recommend patient complete the required paperwork for disability and request MR as indicated on the form. Annika Dash APRN.CNP CNOV Observed: 12/19/2017 Status: COMPLETED Source: [place] 2:[address] [facility] REPOSITORY Office Visit (FAMPWS) VICTOR HUGO ASIF ([id number]) 1985 M Date Time Provider Department 12/19/17 2:20 PM ANNIKA DASH (CHRIS) FAMWS During your visit today, we recorded the following information about you: Temperature Pulse Respiration Blood pressure 97.8 degrees 79/minute 16/minute 139/88 Weight 96.6 kg Annika Dash APRN.CNP 12/19/2017 3:16 PM Signed HPI/CC: Victor Hugoaidan Asif is a 32 year old male who presents for F/U 3 Month (form for social security). Overall doing well. Checking BG levels 3-4 times a day. States AM fasting is high but has had low blood glucoses. Patient uses candy to increase his blood glucose levels. Requesting Disability forms completed. ROS as above, otherwise non-contributory. Reviewed PMHx, PSHx, social Hx, medications and allergies. PHYSICAL EXAMINATION: BP 139/88 (BP Site: Left Arm, BP Position: Sitting, BP Cuff Size: Large Adult) Pulse 79 Temp 36.6 ?C (97.8 ?F) (Temporal Artery) Resp 16 Wt 96.6 kg (213 lb 0.6 oz) SpO2 100% BMI 35.45 kg/m? General appearance: Well appearing, alert, in no acute distress, well-hydrated, well nourished. Skin: Skin color, texture, turgor normal, no suspicious rashes or lesions ASSESSMENT/PLAN: 1. Uncontrolled type 2 diabetes mellitus without complication, without long-term current use of insulin ([facility]) - ICD9: 250.02, ICD10: E11.65 Controlled. improved control - Continue current medications - Follow up with PharmD as prescribed Recommend patient complete the required paperwork for disability and request MR as indicated on the form. MAX Kenney Cma 12/21/2017 3:30 PM Signed Addended by: LESLIE SALGADO CMA on: 12/21/2017 03:30 PM Modules accepted: Orders Annika Dash APRN.CNP 12/22/2017 8:34 AM Signed Addended by: ANNIKA DASH CNP on: 12/22/2017 08:34 AM Modules accepted: Orders Referring Provider: RANJIT AZAR [[id number]] Allergies As of Date: 12/19/2017 Noted Allergy Reaction COCONUT 12/23/2009 10 - Anaphylaxis BACLOFEN 11/25/2015 14 - Other: See Comments Comments: Migraines and lightheadedness LACTOSE 12/23/2009 Comments: Diarrhea PENICILLINS 08/06/2008 8 - GI Upset 12 - Shortness of Breath STRAWBERRY 12/23/2009 Comments: Hives VICODIN (HYDROCODONE-ACETAMINOPHE*06/17/2014 4 - Hives Date Reviewed: 12/19/2017 Reviewed by: Leslie Salgado Cma - Fully Assessed Reason for Visit: F/U 3 Month [443] Cmt: form for social security Reason For Visit History Recorded Primary Visit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 weeks of PT per insurance 5) RTC 6 months The above plan and management options were discussed at length with patient. Patient is in agreement with the above and verbalized understanding. Teresa Olivares APRN, LABOR RELATIONS CONSULTANT November 01, 2017 Referring Provider: SELF [200] Allergies As of Date: 11/01/2017 Noted Allergy Reaction COCONUT 12/23/2009 10 - Anaphylaxis BACLOFEN 11/25/2015 14 - Other: See Comments Comments: Migraines and lightheadedness LACTOSE 12/23/2009 Comments: Diarrhea PENICILLINS 08/06/2008 8 - GI Upset 12 - Shortness of Breath STRAWBERRY 12/23/2009 Comments: Hives VICODIN (HYDROCODONE-ACETAMINOPHE*06/17/2014 4 - Hives Date Reviewed: 11/01/2017 Reviewed by: Nesha Senior Ma - Fully Assessed Reason for Visit: Low Back Pain [126] Neck Pain [135] Right Leg Pain [Other] Primary Visit Diagnosis:Displacement of lumbar intervertebral disc without myelopathy [M51.26] Other Visit Diagnosis:Muscle spasm of back [M62.830] Order(s):diclofenac sodium (VOLTAREN) 1 % topical gelApply 2 g to affected area four times daily.Disp: 1 TubeRfl: 3 XR LUMBAR PARS DEFECT 4V AP/LAT/BOTH OBL [[id number]] Order #: [id number] FUTURE tiZANidine (ZANAFLEX) 4 mg tabletTake 1 tablet by mouth twice daily as needed.Disp: 60 tabletRfl: 1 Prescriptions as of 11/01/2017 Sig: DICLOFENAC 1 % TOPICAL GEL Apply 2 g to affected area fo* BLOOD-GLUCOSE METER KIT Glucose Meter of Choice - Kit* BLOOD SUGAR DIAGNOSTIC STRIPS Test blood sugar(s) 4- 6 times* VERAPAMIL 40 MG TABLET Take 1 tablet by mouth three * DULOXETINE 30 MG CAPSULE,PAUL* TAKE 1 CAPSULE EVERY DAY INSULIN DEGLUDEC (U-200) 200 * Inject 150 Units subcutaneous* INSULIN ASPART U-100 100 UNI* Inject 50 Units subcutaneousl* METFORMIN ER 500 MG TABLET,EX* Take 2 tablets by mouth in * MAPAP (ACETAMINOPHEN) 325 MG * TAKE 2 TABLETS BY MOUTH EVERY* OXYCODONE-ACETAMINOPHEN 5 MG-* ALBUTEROL SULFATE HFA 90 MCG/* Inhale 2 Puffs as instructed * TRIAMCINOLONE ACETONIDE 0.025* Apply 1 application to affect* INDOMETHACIN 25 MG CAPSULE Take 1 capsule by mouth three* DIVALPROEX 500 MG TABLET,PAUL* Take 1 tablet by mouth three * SUMATRIPTAN 100 MG TABLET Take 1 po at time of migraine* NADOLOL 20 MG TABLET Take 2 tablets by mouth once * NORTRIPTYLINE 10 MG CAPSULE Take 1 capsule by mouth daily* PROCHLORPERAZINE MALEATE 10 M* Take 1 tablet by mouth every * LANCETS 28 GAUGE Test blood sugar(s) 4- 6 x zarina* LISINOPRIL 20 MG TABLET Take 1 tablet by mouth once d* BLOOD SUGAR DIAGNOSTIC STRIPS Test blood sugar(s) 4- 6 times* CHOLECALCIFEROL (VITAMIN D3) * Take 1 capsule by mouth once * PEN NEEDLE, DIABETIC 31 GAUGE* 1 Each as directed. TO BE USE* MOMETASONE-FORMOTEROL HFA 200* Inhale 2 Puffs as instructed * OMEPRAZOLE 20 MG CAPSULE,PAUL* Take 1 capsule by mouth twice* NYSTATIN 100,000 UNIT/GRAM TO* Apply 1 application to affect* ALCOHOL SWABS Apply 1 application to affect* DOXEPIN 25 MG CAPSULE take 1 to 2 capsules as neede* FLUOXETINE 40 MG CAPSULE Take 40 mg by mouth every mor* RISPERIDONE 1 MG TABLET take 1 tablet every morning a* COMPOUNDED PRESCRIPTION Medical Bracelet Dx: E11.65 LANCING DEVICE Use 4x daily BLOOD-GLUCOSE METER KIT Freestyle LITE Meter Kit - Dx* LANCING DEVICE use as directed for checking * CPAP Mask (per patient preference)* TENS UNIT AND ELECTRODES COMB* Use as instructed. 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 Tendon tear [T14.8XXA] INVALID FOR* Candidal balanitis [B37.42] INVALID FOR* Phimosis [N47.1] INVALID FOR* IDDM (insulin dependent diabetes mellitus) (HCC*INVALID FOR*04/14/2016 PILAR (obstructive sleep apnea) [G47.33] INVALID FOR* HTN (hypertension) [I10] INVALID FOR*04/14/2016 Schizophrenia (HCC) [F20.9] INVALID FOR* Seizure disorder (HCC) [G40.909] INVALID FOR* Essential hypertension [I10] INVALID FOR* Unspecified vitamin D deficiency [E55.9] INVALID FOR* Midline low back pain without sciatica [M54.5] INVALID FOR*04/14/2016 Thoracic or lumbosacral neuritis or radiculitis*INVALID FOR*04/14/2016 Displacement of lumbar intervertebral disc with*INVALID FOR* Diffuse myofascial pain syndrome [M79.1] INVALID FOR* Chronic back pain greater than 3 months duratio*INVALID FOR*04/14/2016 Muscle spasm of back [M62.830] INVALID FOR* Chronic midline low back pain with sciatica [M5*INVALID FOR* Uncontrolled type 2 diabetes mellitus without c*INVALID FOR* Mixed hyperlipidemia [E78.2] INVALID FOR* Microalbuminuria [R80.9] INVALID FOR* Headache [R51] INVALID FOR* Falls frequently [R29.6] INVALID FOR* Bilateral chronic knee pain [M25.561, M25.562, *INVALID FOR* Chronic midline low back pain without sciatica *INVALID FOR* Prescriptions ordered this encounter Disp Refills Start End DICLOFENAC 1 % TOPICAL GEL 1 Tu* 3 11/01/2017 12/01/2017 Route: TOPICAL Sig: Apply 2 g to affected area four times daily. TIZANIDINE 4 MG TABLET 60 t* 1 11/01/2017 12/01/2017 Route: ORAL Sig: Take 1 tablet by mouth twice daily as needed. Medications Discontinued During This Encounter diclofenac sodium (VOLTAREN) 1 % top* 1 * 3 04/24/2017 11/01/2017 Route: TOPICAL Sig: Apply 2 g to affected area four times daily. Disc: Reason for discontinue is not on file. Encounter Status:Closed by TERESA OLIVARES on 11/01/17 PROGRESS Observed: 10/31/2017 Status: COMPLETED Source: [place] 2:[address] [facility] REPOSITORY HNO ID: [id number] Author: Annika Romero (Contracting Manager) [facility] Service: (none) Author Type: Nurse Practitioner Type: Progress Notes Filed: 10/31/2017 2:33 PM Note Text: HPI/CC: Victor Hugo Asif is a 32 year old male who presents for Headache becoming more frequent; medication not working. Reports having at least 10 headaches a day, lasting approximately 10 minutes, headaches move around his head ( no single loaction) Associated lightheadedness and photophobia. Symptoms increase while at work. Denies N/V, New numbness or tingling, syncope Taking MAPAP several times a day without resolve. Not taking Imitrex as prescribed. No recent visit with headache clinic or neurology. Hx of sz ROS as above, otherwise non-contributory. Reviewed PMHx, PSHx, social Hx, medications and allergies. PHYSICAL EXAMINATION: BP 132/92 Pulse 88 Resp 16 Wt 96.2 kg (212 lb) BMI 36.11 kg/m? General appearance: Well appearing, alert, in no acute distress, well-hydrated, well nourished. Skin: Skin color, texture, turgor normal, no suspicious rashes or lesions Head: Normocephalic, no masses, lesions, tenderness or abnormalities Eyes: Anicteric sclera. Pupils are equally round and reactive to light. Extraocular movements are intact. Oropharynx: Lips, mucosa, and tongue normal, teeth and gums normal, oropharynx normal Neck: Supple, no adenopathy; thyroid symmetric, normal size, no bruits Lungs: Lungs clear to auscultation. No wheezing, rhonchi, rales Heart: RRR without murmur, gallop, or rubs. No ectopy Musculoskeletal: No joint swelling Neuro: Gait normal. Reflexes normal and symmetric. Sensation grossly intact. ASSESSMENT/PLAN: 1. Chronic daily headache - ICD9: 784.0, ICD10: R51 - continue current regimen- patient currently on BB, nortriptyline, - f/u with [facility] - CONSULT TO HEADACHE CLINIC MAX [place] Observed: 10/31/2017 Status: COMPLETED Source: [place] 2:[address] [facility] REPOSITORY Office Visit (FAMPWS) VICTOR HUGO ASIF ([id number]) 1985 M Date Time Provider Department 10/31/17 2:00 PM ANNIKA DASH ([facility]) FAMPWS During your visit today, we recorded the following information about you: Pulse Respiration Blood pressure Weight 88/minute 16/minute 132/92 96.2 kg Annika Dash APRN.CHRIS 10/31/2017 2:33 PM Signed HPI/CC: Victor Hugo Asif is a 32 year old male who presents for Headache becoming more frequent; medication not working. Reports having at least 10 headaches a day, lasting approximately 10 minutes, headaches move around his head ( no single loaction) Associated lightheadedness and photophobia. Symptoms increase while at work. Denies N/V, New numbness or tingling, syncope Taking MAPAP several times a day without resolve. Not taking Imitrex as prescribed. No recent visit with headache clinic or neurology. Hx of sz ROS as above, otherwise non-contributory. Reviewed PMHx, PSHx, social Hx, medications and allergies. PHYSICAL EXAMINATION: BP 132/92 Pulse 88 Resp 16 Wt 96.2 kg (212 lb) BMI 36.11 kg/m? General appearance: Well appearing, alert, in no acute distress, well-hydrated, well nourished. Skin: Skin color, texture, turgor normal, no suspicious rashes or lesions Head: Normocephalic, no masses, lesions, tenderness or abnormalities Eyes: Anicteric sclera. Pupils are equally round and reactive to light. Extraocular movements are intact. Oropharynx: Lips, mucosa, and tongue normal, teeth and gums normal, oropharynx normal Neck: Supple, no adenopathy; thyroid symmetric, normal size, no bruits Lungs: Lungs clear to auscultation. No wheezing, rhonchi, rales Heart: RRR without murmur, gallop, or rubs. No ectopy Musculoskeletal: No joint swelling Neuro: Gait normal. Reflexes normal and symmetric. Sensation grossly intact. ASSESSMENT/PLAN: 1. Chronic daily headache - ICD9: 784.0, ICD10: R51 - continue current regimen- patient currently on BB, nortriptyline, - f/u with [facility] - CONSULT TO [facility]ACHE CLINIC Annika Dash APRN.LABOR RELATIONS CONSULTANT Referring Provider: SELF [200] Allergies As of Date: 10/31/2017 Noted Allergy Reaction COCONUT 12/23/2009 10 - Anaphylaxis BACLOFEN 11/25/2015 14 - Other: See Comments Comments: Migraines and lightheadedness LACTOSE 12/23/2009 Comments: Diarrhea PENICILLINS 08/06/2008 8 - GI Upset 12 - Shortness of Breath STRAWBERRY 12/23/2009 Comments: Hives VICODIN (HYDROCODONE-ACETAMINOPHE*06/17/2014 4 - Hives Date Reviewed: 10/31/2017 Reviewed by: Jarret Hogue LPN - Fully Assessed Reason for Visit: Headache [52] Cmt: becoming more frequent; medication not working; lightheaded Primary Visit Diagnosis:Chronic daily headache [R51] Order(s):CONSULT TO HEADACHE CLINIC [[id number]] Order #: [id number]: 1 Prescriptions as of 10/31/2017 Sig: BLOOD-GLUCOSE METER KIT Glucose Meter of Choice - Kit* BLOOD SUGAR DIAGNOSTIC STRIPS Test blood sugar(s) 4- 6 times* VERAPAMIL 40 MG TABLET Take 1 tablet by mouth three * DULOXETINE 30 MG CAPSULE,PAUL* TAKE 1 CAPSULE EVERY DAY INSULIN DEGLUDEC (U-200) 200 * Inject 150 Units subcutaneous* INSULIN ASPART U-100 100 UNI* Inject 50 Units subcutaneousl* METFORMIN ER 500 MG TABLET,EX* Take 2 tablets by mouth in * MAPAP (ACETAMINOPHEN) 325 MG * TAKE 2 TABLETS BY MOUTH EVERY* OXYCODONE-ACETAMINOPHEN 5 MG-* ALBUTEROL SULFATE HFA 90 MCG/* Inhale 2 Puffs as instructed * TRIAMCINOLONE ACETONIDE 0.025* Apply 1 application to affect* INDOMETHACIN 25 MG CAPSULE Take 1 capsule by mouth three* DIVALPROEX 500 MG TABLET,PAUL* Take 1 tablet by mouth three * DICLOFENAC 1 % TOPICAL GEL Apply 2 g to affected area fo* SUMATRIPTAN 100 MG TABLET Take 1 po at time of migraine* NADOLOL 20 MG TABLET Take 2 tablets by mouth once * NORTRIPTYLINE 10 MG CAPSULE Take 1 capsule by mouth daily* PROCHLORPERAZINE MALEATE 10 M* Take 1 tablet by mouth every * LANCETS 28 GAUGE Test blood sugar(s) 4- 6 x zarina* LISINOPRIL 20 MG TABLET Take 1 tablet by mouth once d* BLOOD SUGAR DIAGNOSTIC STRIPS Test blood sugar(s) 4- 6 times* CHOLECALCIFEROL (VITAMIN D3) * Take 1 capsule by mouth once * PEN NEEDLE, DIABETIC 31 GAUGE* 1 Each as directed. TO BE USE* MOMETASONE-FORMOTEROL HFA 200* Inhale 2 Puffs as instructed * OMEPRAZOLE 20 MG CAPSULE,PAUL* Take 1 capsule by mouth twice* NYSTATIN 100,000 UNIT/GRAM TO* Apply 1 application to affect* ALCOHOL SWABS Apply 1 application to affect* DOXEPIN 25 MG CAPSULE take 1 to 2 capsules as neede* FLUOXETINE 40 MG CAPSULE Take 40 mg by mouth every mor* RISPERIDONE 1 MG TABLET take 1 tablet every morning a* COMPOUNDED PRESCRIPTION Medical Bracelet Dx: E11.65 LANCING DEVICE Use 4x daily BLOOD-GLUCOSE METER KIT Freestyle LITE Meter Kit - Dx* LANCING DEVICE use as directed for checking * CPAP Mask (per patient preference)* TENS UNIT AND ELECTRODES COMB* Use as instructed. 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 Tendon tear [T14.8XXA] INVALID FOR* Candidal balanitis [B37.42] INVALID FOR* Phimosis [N47.1] INVALID FOR* IDDM (insulin dependent diabetes mellitus) (HCC*INVALID FOR*04/14/2016 PILAR (obstructive sleep apnea) [G47.33] INVALID FOR* HTN (hypertension) [I10] INVALID FOR*04/14/2016 Schizophrenia (HCC) [F20.9] INVALID FOR* Seizure disorder (HCC) [G40.909] INVALID FOR* Essential hypertension [I10] INVALID FOR* Unspecified vitamin D deficiency [E55.9] INVALID FOR* Midline low back pain without sciatica [M54.5] INVALID FOR*04/14/2016 Thoracic or lumbosacral neuritis or radiculitis*INVALID FOR*04/14/2016 Displacement of lumbar intervertebral disc with*INVALID FOR* Diffuse myofascial pain syndrome [M79.1] INVALID FOR* Chronic back pain greater than 3 months duratio*INVALID FOR*04/14/2016 Muscle spasm of back [M62.830] INVALID FOR* Chronic midline low back pain with sciatica [M5*INVALID FOR* Uncontrolled type 2 diabetes mellitus without c*INVALID FOR* Mixed hyperlipidemia [E78.2] INVALID FOR* Microalbuminuria [R80.9] INVALID FOR* Headache [R51] INVALID FOR* Falls frequently [R29.6] INVALID FOR* Bilateral chronic knee pain [M25.561, M25.562, *INVALID FOR* Chronic midline low back pain without sciatica *INVALID FOR* Encounter Status:Closed by ANNIKA DASH CNP on 10/31/17 PROGRESS Observed: 10/27/2017 Status: COMPLETED Source: [place] 2:[address] [facility] REPOSITORY HNO ID: [id number] Author: Marco Kuo Service: (none) Author Type: Physical Therapist Type: Progress Notes Filed: 10/27/2017 2:10 PM Note Text: [facility] PHYSICAL THERAPY DISCONTINUANCE OF CARE Plan of Care Period: Start of Care Date: 08/14/17 Last Visit Date: 09/04/2017 Therapy Program: The following is a summary of the interventions provided for this episode of care; Therapeutic exercise, Neuromuscular re-education, Manual therapy, Self-senior living management and Patient/Family/Caregiver Education Assessment: Based on most recent visit, patient was progressing slower than expected toward functional goals based on pain levels. Unable to formally assess goal achievement due to non-compliance with therapy plan of care. Reason for Discontinuation of Care: Patient has not returned to therapy or scheduled additional follow-up appointments. AMAYA Hurt Observed: 10/12/2017 Status: COMPLETED Source: [place] 12:[address] [facility] REPOSITORY Telephone (FAMPWS) VICTOR HUGO ASIF ([id number]) 1985 M Date Time Provider Department 10/12/17 RANJIT AZARWS During your visit today, we recorded the following information about you: Chloe Gardiner MORRO 10/12/2017 12:57 PM Signed Patient calling has just gotten off work and having back and leg pain can not hardly do his 4 hours that he has to work. Having transportation issues can not get to [place] appt to see pain management has appt next week, sending note to family service worker Lana to see what she can do for him, has [employer] insurance. Advised patient needs to contact his insurance to see what other pain management could see in [place]. Patient also complaining of migraine, advised to use his sumatriptan rx or may need to go to ER, urgent care will not see him. Patient said transportation issue again would have to walk home from ER. Can not do with back and leg pain. Advised PCP is out of office and front end architect Dr would not give any pain medication rx. Ranjit Azar DO 10/16/2017 6:55 AM Signed He needs to see pain mgmt DO Ines Arambula LPN 10/16/2017 9:16 AM Signed Pt's phone rings fast busy. Message sent via [employer] with provider response below. ZAY Darby 10/17/2017 3:51 PM Signed Sw spoke with patient and will mail out community transportation assistance listing of agencies of services they offer. Jalen will also mail out [employer] service resource listing. Allergies As of Date: 10/12/2017 Noted Allergy Reaction COCONUT 12/23/2009 10 - Anaphylaxis BACLOFEN 11/25/2015 14 - Other: See Comments Comments: Migraines and lightheadedness LACTOSE 12/23/2009 Comments: Diarrhea PENICILLINS 08/06/2008 8 - GI Upset 12 - Shortness of Breath STRAWBERRY 12/23/2009 Comments: Hives VICODIN (HYDROCODONE-ACETAMINOPHE*06/17/2014 4 - Hives Date Reviewed: 08/04/2017 Reviewed by: Darlin Domingo LPN - Fully Assessed Reason for Visit: Pain [78] Prescriptions as of 10/12/2017 Sig: BLOOD-GLUCOSE METER KIT Glucose Meter of Choice - Kit* BLOOD SUGAR DIAGNOSTIC STRIPS Test blood sugar(s) 4- 6 times* VERAPAMIL 40 MG TABLET Take 1 tablet by mouth three * DULOXETINE 30 MG CAPSULE,PAUL* TAKE 1 CAPSULE EVERY DAY INSULIN DEGLUDEC (U-200) 200 * Inject 150 Units subcutaneous* INSULIN ASPART U-100 100 UNI* Inject 50 Units subcutaneousl* METFORMIN ER 500 MG TABLET,EX* Take 2 tablets by mouth in th* MAPAP (ACETAMINOPHEN) 325 MG * TAKE 2 TABLETS BY MOUTH EVERY* OXYCODONE-ACETAMINOPHEN 5 MG-* ALBUTEROL SULFATE HFA 90 MCG/* Inhale 2 Puffs as instructed * TRIAMCINOLONE ACETONIDE 0.025* Apply 1 application to affect* INDOMETHACIN 25 MG CAPSULE Take 1 capsule by mouth three* DIVALPROEX 500 MG TABLET,PAUL* Take 1 tablet by mouth three * DICLOFENAC 1 % TOPICAL GEL Apply 2 g to affected area fo* SUMATRIPTAN 100 MG TABLET Take 1 po at time of migraine* NADOLOL 20 MG TABLET Take 2 tablets by mouth once * NORTRIPTYLINE 10 MG CAPSULE Take 1 capsule by mouth daily* PROCHLORPERAZINE MALEATE 10 M* Take 1 tablet by mouth every * LANCETS 28 GAUGE Test blood sugar(s) 4- 6 x zarina* LISINOPRIL 20 MG TABLET Take 1 tablet by mouth once d* BLOOD SUGAR DIAGNOSTIC STRIPS Test blood sugar(s) 4- 6 times* CHOLECALCIFEROL (VITAMIN D3) * Take 1 capsule by mouth once * PEN NEEDLE, DIABETIC 31 GAUGE* 1 Each as directed. TO BE USE* MOMETASONE-FORMOTEROL HFA 200* Inhale 2 Puffs as instructed * OMEPRAZOLE 20 MG CAPSULE,PAUL* Take 1 capsule by mouth twice* NYSTATIN 100,000 UNIT/GRAM TO* Apply 1 application to affect* ALCOHOL SWABS Apply 1 application to affect* DOXEPIN 25 MG CAPSULE take 1 to 2 capsules as neede* FLUOXETINE 40 MG CAPSULE Take 40 mg by mouth every mor* RISPERIDONE 1 MG TABLET take 1 tablet every morning a* COMPOUNDED PRESCRIPTION Medical Bracelet Dx: E11.65 LANCING DEVICE Use 4x daily BLOOD-GLUCOSE METER KIT Freestyle LITE Meter Kit - Dx* LANCING DEVICE use as directed for checking * CPAP Mask (per patient preference)* TENS UNIT AND ELECTRODES COMB* Use as instructed. 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 Tendon tear [T14.8XXA] INVALID FOR* Candidal balanitis [B37.42] INVALID FOR* Phimosis [N47.1] INVALID FOR* IDDM (insulin dependent diabetes mellitus) (HCC*INVALID FOR*04/14/2016 PILAR (obstructive sleep apnea) [G47.33] INVALID FOR* HTN (hypertension) [I10] INVALID FOR*04/14/2016 Schizophrenia (HCC) [F20.9] INVALID FOR* Seizure disorder (HCC) [G40.909] INVALID FOR* Essential hypertension [I10] INVALID FOR* Unspecified vitamin D deficiency [E55.9] INVALID FOR* Midline low back pain without sciatica [M54.5] INVALID FOR*04/14/2016 Thoracic or lumbosacral neuritis or radiculitis*INVALID FOR*04/14/2016 Displacement of lumbar intervertebral disc with*INVALID FOR* Diffuse myofascial pain syndrome [M79.1] INVALID FOR* Chronic back pain greater than 3 months duratio*INVALID FOR*04/14/2016 Muscle spasm of back [M62.830] INVALID FOR* Chronic midline low back pain with sciatica [M5*INVALID FOR* Uncontrolled type 2 diabetes mellitus without c*INVALID FOR* Mixed hyperlipidemia [E78.2] INVALID FOR* Microalbuminuria [R80.9] INVALID FOR* Headache [R51] INVALID FOR* Falls frequently [R29.6] INVALID FOR* Bilateral chronic knee pain [M25.561, M25.562, *INVALID FOR* Chronic midline low back pain without sciatica *INVALID FOR* Encounter Status:Closed by INES BARNEY LPN on 10/16/17 DISCHARGE INSTRUCTION Observed: 10/07/2017 Status: F Source: PARMJIT 8:15 AM [facility] REPOSITORY [facility] Medical Records Department [address] [place] [address] Discharge Instruction 10/07/17 0814 MR#: [id number] Acct: [id number] Name: VICTOR HUGO ASIF Rep #: [id number] : 1985 32 From: Francisco Minor MD PCP: Ranjit Anguiano DO Status: REG ER ED Disposition - Plan for ED Patient: Disposition: Home or Assisted Living Chief Complaint: Suicidal Diagnosis: Suicidal thoughts, Reaction, situational, acute, to stress Instructions: ED Contract, No Harm, ED Depression Referrals: Counseling,Center [GROUP OF PHYSICIANS] - As soon as possible What to do if you have Problems For any increased pain, shortness of breath, bleeding, nausea or vomiting, chest pain, or any unexpected problems, contact your Primary Care Provider. Call [facility] ([phone]) or report to the closest Emergency Room. Call 911 if necessary. 10/07/17814 <Electronically signed by Francisco Minor MD> Date Francisco Minor MD Cosigner Signature (If Indicated): Date CC: Ranjit Anguiano DO EMERGENCY DEPARTMENT Observed: 10/07/2017 Status: F Source: PARMJIT SUMMARY 8:09 AM [facility] REPOSITORY [facility] Medical Records Department [address] [place] [address] Emergency Department Summary 10/07/17 0230 MR#: [id number] Acct: [id number] Name: VICTOR HUGO ASIF Rep #: [id number] : 1985 32 From: Francisco Minor MD PCP: Ranjit Anguiano DO Status: REG ER ADDENDUM by FRANCISCO MINOR MD on 10/07/17 at 0809 Correction: Patient discharged home. Impression: Suicidal thoughts without intent; situational reaction spool worker was leaning toward having him involuntarily admitted. Patient states he does not feel he needs that, he was having thoughts of dying but not of harming himself and he has no intent on doing that. He has a counseling appointment in 4 days, and states that at the end of the weekend, he plans to touch base with the counseling center every day, he has other friends that he has been in contact with who have been helping him, as he has been waiting here in the ER. On my reevaluation he is much more reasonable. He has had no plan for self-harm, he contracts for safety, he agrees to discuss with nursing home social worker today when they will call him and recheck on him, and to attempt to have a new counseling appointment on Monday, in addition to his already established appointment on Monday, although he admits that he may have transportation issues on Monday. If he can work that out, he certainly would be happy to go. He is acting very reasonable, and I will decline the pink slip at this time. Date Francisco Minor MD cc: Ranjit Anguiano DO * Signed History of Present Illness Chief Complaint: Suicidal Informant: Patient Onset: Today Associated Symptoms: vomiting off and on when stressed and pissed off Narrative: Patient states he called crisis because he was having suicidal thoughts, but he will not elaborate on anything else. He states he was not happy with the conversation that he had with nursing home social worker over the phone, and tells me I do not like talking to people who talk in circles. So he tells me that he hung up on her. She apparently called the police, who [place] slipped him to the ER. He denies any physical illness recently. - Past Medical History (1) Depression Status: Chronic (2) Seizure Status: Chronic (3) Asthma Status: Chronic Comment: With severe insulin resistance (4) HTN (hypertension) Status: Chronic Past Medical History - Allergies and Home Meds Allergies/Adverse Reactions: Allergies hydrocodone bitartrate [From Vicodin] Allergy (Verified 10/07/17 01:33) Hives strawberry Allergy (Verified 10/07/17 01:33) Hives acetaminophen Adverse Reaction (Verified 10/07/17 01:33) Nausea/hives baclofen Adverse Reaction (Verified 10/07/17 01:33) IT MAKES HIM LIGHTHEADED AND SICK lactose Adverse Reaction (Verified 10/07/17 01:33) Nausea Penicillins Adverse Reaction (Verified 10/07/17 01:33) Nausea COCONUT Allergy (Uncoded 10/07/17 01:33) Hives Home Medications: Home Medications Medication Instructions Recorded Albuterol IH (ProAir) [Proair Hfa] 2 puff INHALATION Q6H PRN PRN 10/22/14 Primary Care Physician: Ranjit Azar DO [Primary Care Provider] - Surgical History: tonsillectomy, - Smoking Status: Unknown if ever smoked Drugs: None - Family History Paternal Family History: Reports: Unknown Maternal Family History: Reports: Unknown Review of Systems All systems negative except as indicated Gastrointestinal: Reports: Vomiting Psych: Reports: Depression, Suicidal thoughts Physical Exam Vital Signs/Narrative: Vital Signs 10/07/17 01:34 98.1 F 83 17 150/106 H 98 Inital Vital Signs reviewed: Yes General: Well nourished, Well developed, Obese - mildly Head: Normocephalic, Atraumatic Eyes: Perrl, EOMI ENT: Moist mucous membranes, No rhinorrhea Neck: Supple, Nontender Cardiovascular: Regular rate, Regular rhythm, No murmurs Respiratory: No distress, CTA bilaterally, Chest nontender Abdomen: Soft, Nontender, Nondistended, Normal bowel sounds Back: Nontender, Normal Inspection Extremities: Nontender, No edema Skin: Normal color, No rash. Negative for: Trauma Neurological: Alert, Oriented x3, Cranial nerves II-XII grossly intact, Normal Strength, Normal Sensation Psychological: - - flat affect. poor eye contact. paucity of speech. Diagnostic/Tx/Re-eval Laboratory Results WBC 7.6 (4.4-11.0) K/mm3 WBC (4.4-11.0) K/mm3 RBC (4.6-6.2) M/mm3 - Medical Decision Making Patient become somewhat agitated because he wanted to leave and was not allowed to. He was redirectable and did not require physical or chemical intervention. He is medically cleared for crisis evaluation. Crisis evaluated him and determine that given his threats of suicide and wanting to that he told both nursing home social worker over the phone in the police, he is denying this now, however he is not reacting healthfully to the situation he is in, which is that his is a drug addict and brings other drug addicts into the house, and he does not want to leave her. She thinks that he needs to be pink slip to a psychiatric hospital, which is against the patient wishes because he does not think that is going to help the situation. I agree that this will help him, although it may not help his social situation. He is accepted to [facility] by Dr. Pimentel, however under the pretense that we get a medically unnecessary acute valproic acid level. ED Disposition - Plan for ED Patient: Disposition: [facility] Chief Complaint: Suicidal Diagnosis: Suicidal ideation Referrals: Ranjit Azar DO [Primary Care Provider] - What to do if you have Problems For any increased pain, shortness of breath, bleeding, nausea or vomiting, chest pain, or any unexpected problems, contact your Primary Care Provider. Call [facility] ([phone]) or report to the closest Emergency Room. Call 911 if necessary. 10/07/17 0703 <Electronically signed by Francisco Minor MD> Date Francisco Minor MD Cosigner Signature (If Indicated): Date CC: Ranjit Anguiano DO URINE DRUG SCREEN Collected: 10/07/2017 Status: F Source: PARMJIT (VISTA) 4:07 AM [facility] REPOSITORY TYPE CODE TESTS RESULT OUT OF RANGE REFERENCE UNITS LAB L505.0075 TO BE Normal CONFIRMED Result Comment: CONFIRMATORY TESTING FOR ALL POSITIVE URINE DRUG SCREEN RESULTS WILL ONLY BE SENT OUT UPON PHYSICIAN ORDER. VISTA Urine Drug Screen methods provide only preliminary analytical test results. A more specific alternate chemical method must be used in order to obtain a confirmed analytical result. Gas chromatography/mass spectrometery (GC/MS) is the preferred confirmatory method. Clinical consideration and professional judgement should be applied to any drug of abuse test result, particularly when preliminary positive results are used. URINE TCA TESTING MUST BE ORDERED SEPARATELY. USE TEST MNEMONIC: [facility] LAB L505.5005 VISTA UDS PH 7 Normal LAB L505.5015 <1000 ng/mL AMPHETAMINES Normal NEGATIVE LAB L505.5025 < 200 ng/mL BARBITIURATES Normal NEGATIVE LAB L505.5035 < 200 ng/mL BENZODIAZIPINE Normal NEGATIVE LAB L505.5045 < 300 ng/mL COCAINE Normal NEGATIVE LAB L505.5055 < 500 ng/mL ECSTACY Normal NEGATIVE LAB L505.5065 < 300 ng/mL METHADONE Normal NEGATIVE LAB L505.5075 < 300 ng/mL OPIATES Normal NEGATIVE LAB L505.5085 < 25 ng/mL PCP Normal NEGATIVE LAB L505.5095 < 50 ng/mL THC Normal NEGATIVE Performed By: #### L505.5000 #### [facility] [address] [place], [place], [address] ALCOHOL, BLOOD Collected: 10/07/2017 Status: F Source: WELDON (MEDICAL)-SERUM 2:40 AM [facility] REPOSITORY TYPE CODE TESTS RESULT OUT OF RANGE REFERENCE UNITS LAB L501.9100 mg/dL Normal SERUM 7.0 ETOH Result Comment: The serum:whole blood ethanol ratio is approximately 1.14 and varies slightly with hematocrit. Medical Alcohol reference interval and critical value in non-tolerant individuals; 50 - 100 Impairment 100 Intoxication 100 - 250 Severe Poisoning 250 - 400 Deep/possible fatal coma Performed By: #### L501.9100 #### [facility] [address] [place], [address] COMPREHENSIVE METABOLIC Collected: 10/07/2017 Status: F Source: [place] PROFIL 2:40 AM [facility] REPOSITORY TYPE CODE TESTS RESULT OUT OF RANGE REFERENCE UNITS LAB L501.0100 74-106 mg/dL Normal GLU 94 Result Comment: Please note revised GLUCOSE reference range effective 2017. LAB L501.1000 7-18 mg/dL Normal BUN 11 LAB L501.1100 0.70-1.30 mg/dL Normal CREAT,SERUM 0.83 Result Comment: The validity of the calculated GFR AND GFRAA in patients over 70 years has not been determined. Clinical correlation is essential. LAB L501.1110 >60 mL/min Normal EST GFR 113 Result Comment: Non- GFR Calc LAB L501.1115 >60 mL/min Normal EST GFR - AA 137 Result Comment: GFR Calc LAB L501.1255 ml/min Normal Estimated CRCL 109.09 LAB L501.1300 10-20 RATIO BUN/CRE Normal 13.3 LAB L501.1500 6.4-8. g/dL High 2 T PROT 8.4 LAB L501.1800 3.2-5. g/dL 0 ALB Normal 3.6 LAB L501.1950 2.2-4. g/dL High 2 GLOB 4.8 LAB L501.2000 0.9-2. RATIO Low 4 A/G 0.8 LAB L501.2200 8.5-10 mg/dL .1 CA Normal 8.6 LAB L501.4100 15-37 U/L High AST 45 LAB L501.4305 45-117 U/L ALK P Normal 67 LAB L501.4405 16-61 U/L ALT Normal 22 LAB L501.4600 0.20-1 mg/dL .00 T BILI Normal 0.20 LAB L501.5300 136-14 mmol/L 5 NA Normal 140 LAB L501.5600 3.5-5. mmol/L 1 K Normal 3.6 LAB L501.5900 98-107 mmol/L CL Normal 106 LAB L501.6100 21.0-3 mmol/L 2.0 CO2 Normal 27.0 LAB L501.6200 5-15 GAP Normal 7 Performed By: #### L500.4050 #### [facility] [address] [place], [place], [address] VALPROIC ACID Collected: 10/07/2017 Status: F Source: WELDON (DEPAKENE) LEVEL 2:40 AM [facility] REPOSITORY TYPE CODE TESTS RESULT OUT OF REFERENCE UNITS RANGE LAB L501.8100 50-100 ug/mL Low VALPROIC ACID 9 Performed By: #### L501.8100 #### [facility] [address] [place], [place], [address] CBC W/DIFF, AUTOMATED Collected: 10/07/2017 Status: F Source: PARMJIT 2:20 AM [facility] REPOSITORY TYPE CODE TESTS RESULT OUT OF RANGE REFERENCE UNITS LAB L100.1000 4.4-11.0 K/mm3 Normal WBC 7.6 LAB L100.1200 4.6-6.2 M/mm3 Normal RBC 4.96 LAB L100.1300 13.0-16.5 g/dl Normal HGB 13.3 LAB L100.1400 40-54 % Normal HCT 40.5 LAB L100.1500 80-94 fL Normal MCV 81.7 LAB L100.1600 27.0-32.0 pg Low MCH 26.8 LAB L100.1700 32-36 g/gl Normal MCHC 32.8 LAB L100.1810 11.6-14.6 % Normal RDW CV 13.2 LAB L100.1820 35.1-43.9 fl Normal RDW SD 39.4 LAB L100.1900 150-450 K/mm3 Normal PLT 227 LAB L100.2000 6.2-12.0 fl Normal MPV 10.5 LAB L100.2100 47-70 % Normal NEUT% 68.4 LAB L100.2200 19-41 % Normal LY% 23.6 LAB L100.2300 0-10 % Normal MONO% 7.1 LAB L100.2400 0-5 % Normal EO% 0.4 LAB L100.2500 0-1 % Normal BASO% 0.4 LAB L100.2550 0.0-0.9 % Normal IM GRAN % 0.100 Result Comment: IG% - Immature Granulocytes (promyelocytes, myelocytes and metamyelocytes) > 1% indicates that a LEFT SHIFT is Present. LAB L100.2620 2.0-7.7 X10 3/uL Normal Absolute Neut 5.2 LAB L100.2720 0.83-4.51 X10 3/ul Normal Absolute Lymph 1.79 Performed By: #### L100.0100 #### [facility] [address], [address] DISCHARGE INSTRUCTION Observed: 09/26/2017 Status: F Source: PARJMIT 12:06 PM [facility] REPOSITORY [facility] Medical Records Department [address] [place] [place] [address] Discharge Instruction 09/26/17 1205 MR#: [id number] Acct: [id number] Name: VICTOR HUGO ASIF Rep #: [id number] : 1985 32 From: Barbara Goff MD PCP: Ranjit Anguiano DO Status: REG ER ED Disposition - Plan for ED Patient: Chief Complaint: Headache Instructions: ED Headache Migraine Referrals: Ranjit Azar DO [Primary Care Provider] - What to do if you have Problems For any increased pain, shortness of breath, bleeding, nausea or vomiting, chest pain, or any unexpected problems, contact your Primary Care Provider. Call [facility] ([phone]) or report to the closest Emergency Room. Call 911 if necessary. 09/26/17 1206 <Electronically signed by Barbara Goff MD> Date Barbara Goff MD Cosigner Signature (If Indicated): Date CC: Ranjit Anguiano DO EMERGENCY DEPARTMENT Observed: 09/26/2017 Status: F Source: [place] SUMMARY 12:05 PM [facility] REPOSITORY [facility] Medical Records Department [address] [place] [address] Emergency Department Summary 09/26/17 1000 MR#: [id number] Acct: [id number] Name: VICTOR HUGO ASIF Rep #: [id number] : 1985 32 From: Barbara Goff MD PCP: Ranjit Anguiano DO Status: REG ER - ER Visit Summary Date of Service: 09/26/17 Chief Complaint: Headache History of Present Illness: The patient is a 32 M presenting with headache which started gradually yesterday. Patient has history of migraine headaches and states this feels similar. He has nausea and vomiting. Denies fever. He has photophobia. Denies recent injury. He is also concerned about possibility of STDs. He states his recently cheated on him. He has no symptoms of penile discharge, rash, or other complaints. Physical Examination: Vitals are stable. Patient is afebrile. Alert no acute distress. HEENT exam is unremarkable. Neck is supple, no meningismus Lungs are clear and equal bilaterally. Heart is regular rate and rhythm. Abdomen is soft nontender nondistended. Extremities are unremarkable. Skin is warm and dry. No focal neurologic deficit. Remainder of exam is unremarkable. Emergency Department Course and Treatment: Patient was given Compazine, Benadryl with improvement. Gonorrhea and chlamydia are negative. HIV is pending. These results will not return until tomorrow. On reevaluation, patient is resting comfortably. Advised to follow-up with primary care physician. Advised return to ED for worsening complaints. Disposition: Discharge home Impression: Headache This note was generated with [employer] dictation software. It may contain incorrect words, spelling, and punctuation that were not noted in review of the chart prior to signing ED Disposition - Plan for ED Patient: Chief Complaint: Headache Referrals: Ranjit Azar DO [Primary Care Provider] - What to do if you have Problems For any increased pain, shortness of breath, bleeding, nausea or vomiting, chest pain, or any unexpected problems, contact your Primary Care Provider. Call [facility] ([phone]) or report to the closest Emergency Room. Call 911 if necessary. 09/26/17 1205 <Electronically signed by Barbara Goff MD> Date Barbara Goff MD Cosigner Signature (If Indicated): Date CC: Ranjit Anguiano DO CHLAMYDIA PCR ([facility]) Collected: 09/26/2017 Status: F Source: PARMJIT 9:46 AM [facility] REPOSITORY Order Comment: Order Date: 09/26/17 TYPE CODE TESTS RESULT OUT OF RANGE REFERENCE UNITS LAB L8200.2100 Negative Normal Chlam Negative Trac PCR Performed By: #### L8200 #### [facility] [address] [place], [address] N GONORRHOEAE PCR ([facility]) Collected: 09/26/2017 Status: F Source: WELDON 9:46 AM [facility] REPOSITORY Order Comment: Order Date: 09/26/17 TYPE CODE TESTS RESULT OUT OF RANGE REFERENCE UNITS LAB L8200.2200 Negative Normal NG by Negative PCR Performed By: #### L8200.2030 #### [facility] [address], [address] HIV - [facility] Collected: 09/26/2017 Status: F Source: WELDON 9:46 AM [facility] REPOSITORY Order Comment: PER ESPRINGER IN ER PATIENT IS NOT AN EXPOSURE. WILL NOT BE RUN UNTIL 09/27. TYPE CODE TESTS RESULT OUT OF RANGE REFERENCE UNITS LAB L3890.6005 Nonreactive Normal HIV - [facility] Non-Reactive Performed By: #### L3890.6005 #### [facility] [address] [facility], [address] 12 LEAD ELECTROCARDIOGRAM Observed: 09/12/2017 Status: F Source: WELDON 8:47 AM [facility] REPOSITORY [facility] Cardiovascular Services [address] [place] [address] 12 Lead EKG 09/09/172052 MR#: [id number] Acct: [id number] Name: VICTOR HUGO ASIF Rep #: [id number] : 1985 32 From: Emanuel Capps MD Attending Dr: Status: DEP ER Ordering Dr: Todd Taylor DO Date: 09/09/17 Location: ED Sex: M AA Admitted: Test Reason : MENTAL CLEARANCE Blood Pressure : / mmHG Vent. Rate : 076 BPM Atrial Rate : 076 BPM P-R Int : 150 ms QRS Dur : 088 ms QT Int : 362 ms P-R-T Axes : 061 040 032 degrees QTc Int : 407 ms Normal sinus rhythm Normal ECG Confirmed by EMANUEL CAPPS MD ([id number]), electronic news gathering editor CHARLA CLEANING ([id number]) on 09/12/2017 8:47:34 AM Referred By: WARD Confirmed By:EMANUEL CAPPS MD 09/12/17 0847 Date Emanuel Capps MD CC: Todd Taylor DO; Ranjit Anguiano DO Signed EMERGENCY DEPARTMENT Observed: 09/10/2017 Status: F Source: WELDON SUMMARY 3:38 PM [facility] REPOSITORY [facility] Medical Records Department [address] [place] [address] Emergency Department Summary 09/09/172055 MR#: [id number] Acct: [id number] Name: VICTOR HUGO ASIF Rep #: [id number] : 1985 32 From: Todd Taylor DO PCP: Ranjit Anguiano DO Status: DEP ER - ER Visit Summary Date of Service: 09/09/17 Chief Complaint: Suicidal/homicidal History of Present Illness: The patient is a 32 M who states that he is feeling homicidal towards his and now having thoughts that he can no longer handle his life. The patient states that his is heavily involved in drug use he himself does not do drugs. He feels he is at his breaking point. He states that he has been trying to get her help but she is not willing to help her self. He has been working with a counselor. He states he was hospitalized years ago following a mental breakdown. He states that he feels close to that. He called the police who brought him to the hospital. Physical Examination: Afebrile vital signs are stable Gen: Well-nourished well-developed Head: Normocephalic atraumatic Eyes: Perrl EOMI ENT: TMs clear no rhinorrhea moist mucous membranes Neck: Supple no lymphadenopathy no JVD nontender CVS: Regular rate rhythm no murmurs normal S1-S2 Respiratory: No distress clear to auscultation bilaterally chest nontender Abdomen: Soft nontender nondistended normal bowel sounds no masses Back: Nontender Extremity: Nontender no edema Skin: Normal color no rash Neuro: alert orientated 3 CN II-XII intact normal strength sensation reflexes gait cerebellar Psych: Patient appears depressed. The patient expresses suicidal and homicidal ideation Test Results: CBC CMP TSH tox negative EKG sinus rhythm. Emergency Department Course and Treatment: Patient was cleared for crisis evaluation. They are here to assess the patient Impression: 1. Suicidal ideation 2. Homicidal ideation 3. Depression This note was generated with [employer] software. It may contain incorrect words, spelling, and punctuation that were not noted in review of the chart prior to signing <WardTodd - Last Filed: 09/10/17 00:15> - ER Visit Summary Date of Service: 09/10/17 Chief Complaint: [] History of Present Illness: The patient is a 32 M [] Physical Examination: [] Test Results: [] Emergency Department Course and Treatment: Patient signed out to [place] [facility] evaluation. Per [facility], patient is safe to go home. Safety contract was made. He does have an appointment with his counselor on , in addition he will follow- up with [facility]. He will return if any worsening symptoms. All questions were answered. Treatment Plan: [] Disposition: [] Impression: [] This note was generated with [employer] dictation software. It may contain incorrect words, spelling, and punctuation that were not noted in review of the chart prior to signing <Russ Frances - Last Filed: 09/10/17 03:42> ED Disposition <Todd Taylor - Last Filed: 09/10/17 00:15> <Russ Frances - Last Filed: 09/10/17 03:42> - Plan for ED Patient: Disposition: Home or Assisted Living Chief Complaint: Suicidal Diagnosis: Mental health evaluation Instructions: ED Contract, No Harm Referrals: Ranjit Azar DO [Primary Care Provider] - Additional Instructions: Follow-up as discussed with mental health counselor. Return if any worsening symptoms. What to do if you have Problems For any increased pain, shortness of breath, bleeding, nausea or vomiting, chest pain, or any unexpected problems, contact your Primary Care Provider. Call [facility] ([phone]) or report to the closest Emergency Room. Call 911 if necessary. 09/10/17 1538 <Electronically signed by Todd Taylor DO> Date Todd Taylor DO 09/10/17 0342<Electronically signed by Russ Orr> Cosigner Signature (If Indicated): Date Russ Frances DO CC: Ranjit Anguiano DO URINE DRUG SCREEN Collected: 09/09/2017 Status: F Source: [place] (VISTA) 11:30 PM [facility] REPOSITORY TYPE CODE TESTS RESULT OUT OF RANGE REFERENCE UNITS LAB L505.0075 TO BE Normal CONFIRMED Result Comment: CONFIRMATORY TESTING FOR ALL POSITIVE URINE DRUG SCREEN RESULTS WILL ONLY BE SENT OUT UPON PHYSICIAN ORDER. VISTA Urine Drug Screen methods provide only preliminary analytical test results. A more specific alternate chemical method must be used in order to obtain a confirmed analytical result. Gas chromatography/mass spectrometery (GC/MS) is the preferred confirmatory method. Clinical consideration and professional judgement should be applied to any drug of abuse test result, particularly when preliminary positive results are used. URINE TCA TESTING MUST BE ORDERED SEPARATELY. USE TEST MNEMONIC: [facility] LAB L505.5005 VISTA UDS PH 6 Normal LAB L505.5015 <1000 ng/mL AMPHETAMINES Normal NEGATIVE LAB L505.5025 < 200 ng/mL BARBITIURATES Normal NEGATIVE LAB L505.5035 < 200 ng/mL BENZODIAZIPINE Normal NEGATIVE LAB L505.5045 < 300 ng/mL COCAINE Normal NEGATIVE LAB L505.5055 < 500 ng/mL ECSTACY Normal NEGATIVE LAB L505.5065 < 300 ng/mL METHADONE Normal NEGATIVE LAB L505.5075 < 300 ng/mL OPIATES Normal NEGATIVE LAB L505.5085 < 25 ng/mL PCP Normal NEGATIVE LAB L505.5095 < 50 ng/mL THC Normal NEGATIVE Performed By: #### L505.5000 #### [facility] [place], [address] CBC W/DIFF, AUTOMATED Collected: 09/09/2017 Status: F Source: PARMJIT 9:22 PM [facility] REPOSITORY TYPE CODE TESTS RESULT OUT OF RANGE REFERENCE UNITS LAB L100.1000 4.4-11.0 K/mm3 Normal WBC 7.1 LAB L100.1200 4.6-6.2 M/mm3 Normal RBC 4.94 LAB L100.1300 13.0-16.5 g/dl Normal HGB 13.0 LAB L100.1400 40-54 % Normal HCT 40.9 LAB L100.1500 80-94 fL Normal MCV 82.8 LAB L100.1600 27.0-32.0 pg Low MCH 26.3 LAB L100.1700 32-36 g/gl Low MCHC 31.8 LAB L100.1810 11.6-14.6 % Normal RDW CV 13.5 LAB L100.1820 35.1-43.9 fl Normal RDW SD 40.8 LAB L100.1900 150-450 K/mm3 Normal PLT 232 LAB L100.2000 6.2-12.0 fl Normal MPV 9.9 LAB L100.2100 47-70 % Normal NEUT% 69.2 LAB L100.2200 19-41 % Normal LY% 25.4 LAB L100.2300 0-10 % Normal MONO% 4.4 LAB L100.2400 0-5 % Normal EO% 0.6 LAB L100.2500 0-1 % Normal BASO% 0.3 LAB L100.2550 0.0-0.9 % Normal IM GRAN % 0.100 Result Comment: IG% - Immature Granulocytes (promyelocytes, myelocytes and metamyelocytes) > 1% indicates that a LEFT SHIFT is Present. LAB L100.2620 2.0-7.7 X10 3/uL Normal Absolute Neut 4.9 LAB L100.2720 0.83-4.51 X10 3/ul Normal Absolute Lymph 1.79 Performed By: #### L100.0100 #### [facility] [address] [facility] [place], [place], [address] BEDSIDE GLUCOSE Collected: 09/09/2017 Status: F Source: [place] 9:00 PM [facility] REPOSITORY TYPE CODE TESTS RESULT OUT OF RANGE REFERENCE UNITS LAB L501.080 70-110 mg/dL Normal BEDSIDE GLU 76 Result Comment: MANAGEMENT OF PATIENT CARE PER NURSING PROTOCOL Performed By: #### L501.080 #### [facility] Point of Care [address] [facility] [place], [place] [address] BASIC METABOLIC Collected: 09/09/2017 Status: F Source: PARMJIT PROFILE (BMP) 8:55 PM [facility] REPOSITORY TYPE CODE TESTS RESULT OUT OF RANGE REFERENCE UNITS LAB L501.0100 74-106 mg/dL Normal GLU 76 Result Comment: Please note revised GLUCOSE reference range effective 2017. LAB L501.1000 7-18 mg/dL Normal BUN 16 LAB L501.1100 0.70-1.30 mg/dL Normal CREAT,SERUM 0.88 Result Comment: The validity of the calculated GFR AND GFRAA in patients over 70 years has not been determined. Clinical correlation is essential. LAB L501.1110 >60 mL/min Normal EST GFR 105 Result Comment: Non- GFR Calc LAB L501.1115 >60 mL/min Normal EST GFR - AA 127 Result Comment: GFR Calc LAB L501.1255 ml/min Normal Estimated CRCL 102.89 LAB L501.1300 10-20 RATIO BUN/CRE Normal 18.1 LAB L501.2200 8.5-10 mg/dL .1 CA Normal 8.9 LAB L501.5300 136-14 mmol/L High 5 NA 146 LAB L501.5600 3.5-5. mmol/L 1 K Normal 3.7 LAB L501.5900 98-107 mmol/L High CL 111 LAB L501.6100 21.0-3 mmol/L 2.0 CO2 Normal 26.0 LAB L501.6200 5-15 GAP Normal 9 Performed By: #### L500.2500, L500.3400, L501.9520 #### [facility] [address] [place], [place], [address] LIVER PROFILE Collected: 09/09/2017 Status: F Source: PARMJIT 8:55 PM [facility] REPOSITORY TYPE CODE TESTS RESULT OUT OF RANGE REFERENCE UNITS LAB L501.1500 6.4-8.2 g/dL Normal T PROT 8.2 LAB L501.1800 3.2-5.0 g/dL Normal ALB 3.8 LAB L501.1950 2.2-4.2 g/dL High GLOB 4.4 LAB L501.4100 15-37 U/L Normal AST 36 LAB L501.4305 45-117 U/L Normal ALK P 60 LAB L501.4405 16-61 U/L Normal ALT 22 Result Comment: Please note revised ALT reference range effective 2017. LAB L501.4600 0.20-1.00 mg/dL Normal T BILI 0.40 LAB L501.4700 0.00-0.30 mg/dL Normal D BILI 0.11 Performed By: #### L500.2500, L500.3400, L501.9520 #### [facility] [address] [place], [address] THYROID STIM HORMONE Collected: 09/09/2017 Status: F Source: [place] (TSH) 8:55 PM [facility] REPOSITORY TYPE CODE TESTS RESULT OUT OF RANGE REFERENCE UNITS LAB L501.9520 0.358-3.74 uIU/mL Normal TSH 0.86 Performed By: #### L500.2500, L500.3400, L501.9520 #### [facility] [address] [place], [place], [address] ALCOHOL, BLOOD Collected: 09/09/2017 Status: F Source: WELDON (MEDICAL)-SERUM 8:55 PM [facility] REPOSITORY TYPE CODE TESTS RESULT OUT OF RANGE REFERENCE UNITS LAB L501.9100 mg/dL Normal SERUM 5.0 ETOH Result Comment: The serum:whole blood ethanol ratio is approximately 1.14 and varies slightly with hematocrit. Medical Alcohol reference interval and critical value in non-tolerant individuals; 50 - 100 Impairment 100 Intoxication 100 - 250 Severe Poisoning 250 - 400 Deep/possible fatal coma Performed By: #### L501.9100 #### [facility] [address] [place], [place], [address] COMP METABOLIC PANEL Collected: 09/07/2017 Status: F Source: [place] 11:[address] [facility] REPOSITORY TYPE CODE TESTS RESULT OUT OF REFERENCE UNITS RANGE LAB TP 6.3-8.0 g/dL Protein, High Total 8.2 LAB ALB 3.9-4.9 g/dL Albumin 4.4 LAB CA 8.5-10.2 mg/dL Calcium, Total 9.5 LAB TBIL 0.2-1.3 mg/dL Bilirubin, Total 0.4 LAB ALKP 36-108 U/L Alkaline Phosphatase 54 LAB AST 14-40 U/L AST 36 LAB GLU 74-99 mg/dL Glucose 90 Result Comment: The [place] Diabetes Association (ADA) provides guidance for cutoff values for fasting glucose and random glucose. The ADA defines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 check (12.7% on 04/08/17). However most recent BGs significantly lower than last A1c. Due for repeat A1c today. Patient compliant with and tolerating current regimen. Concern for hypoglycemic events. Will transition patient from detemir to a once daily basal insulin and reduce the dose, will also reduce dose of prandial insulin; in hopes of avoiding hypoglycemia. Metformin is not at goal, will increase that dose today. Will follow with patient closely to ensure changes are having positive effect. Potential candidate for GLP-1 to reduce insulin requirements, but will follow-up at future visits. Will send glucose tablets next visit if still having hypoglycemic episodes. Renal fxn and LFTs WNL and appropriate for continued therapy ? START insulin degludec 150 units QAM ? INCREASE metformin ER to 500mg - take 2 tablets QAM and 2 tablets QPM ? DECREASE insulin aspart to 50 units TID meals ? STOP insulin detemir ? Instructed patient to continue checking BGs and bring glucometer to next PharmD visit ? A1c, CMP today 2. Essential hypertension - ICD9: 401.9, ICD10: I10 BP goal ANDlt; 140/90, pt is at goal on current therapy. Patient compliant with and tolerating current regimen. Will continue. Rrenal fxn, K+ WNL and appropriate for continued therapy. ? CONTINUE lisinopril 20mg, nadolol 20mg take 2 tablets once daily, verapamil 40mg TID 3. Mixed hyperlipidemia - ICD9: 272.2, ICD10: E78.2 Pt is not currently prescribed statin therapy. Not indicated d/t age ANDlt; 40 and LDL ANDlt; 190. Will continue to monitor lipids. Health Maintenance issues addressed: DILATED RETINAL EXAM due on 10/12/2016 URINE ALBUMIN CREATININE RATIO due on 09/29/2017 HBA1C due on 10/06/2017 Patient is scheduled to see PCP 11/07/17. Patient to return to clinic for PharmD f/u on 09/26. Patient verbalized understanding of instructions. Priscila Mancilla, PharmD, BCPS PRISCILA MANCILLA, PHARMACIST 09/07/2017 11:01 AM Signed Bloodwork today Referring Provider: RANJIT AZAR [[id number]] Allergies As of Date: 09/07/2017 Noted Allergy Reaction COCONUT 12/23/2009 10 - Anaphylaxis BACLOFEN 11/25/2015 14 - Other: See Comments Comments: Migraines and lightheadedness LACTOSE 12/23/2009 Comments: Diarrhea PENICILLINS 08/06/2008 8 - GI Upset 12 - Shortness of Breath STRAWBERRY 12/23/2009 Comments: Hives VICODIN (HYDROCODONE-ACETAMINOPHE*06/17/2014 4 - Hives Date Reviewed: 08/04/2017 Reviewed by: Darlin Domingo LPN - Fully Assessed Reason for Visit: Allied Health Visit [5] Cmt: DM initial Primary Visit Diagnosis:Uncontrolled type 2 diabetes mellitus without complication, without long-term current use of insulin (HCC) [E11.65] Other Visit Diagnoses:Essential hypertension [I10] Mixed hyperlipidemia [E78.2] Order(s):insulin degludec (TRESIBA) 200 unit/mL (3 mL) injectionInject 150 Units subcutaneously every morning.Disp: 9 PenRfl: 3 insulin aspart U-100 (NOVOLOG FLEXPEN U-100 INSULIN) 100 unit/mL inpnInject 50 Units subcutaneously three times daily.Disp: 15 PenRfl: 11 metFORMIN ER (GLUCOPHAGE XR) 500 mg 24 hr tabletTake 2 tablets by mouth in the morning and 2 tablets in the evening. LACTOSE FREEDisp: 120 tabletRfl: 5 Prescriptions as of 09/07/2017 Sig: INSULIN ASPART U-100 100 UNI* Inject 50 Units subcutaneousl* METFORMIN ER 500 MG TABLET,EX* Take 2 tablets by mouth in th* VERAPAMIL 40 MG TABLET Take 1 tablet by mouth three * DULOXETINE 30 MG CAPSULE,PAUL* Take 1 capsule by mouth once * DIVALPROEX 500 MG TABLET,PAUL* Take 1 tablet by mouth three * SUMATRIPTAN 100 MG TABLET Take 1 po at time of migraine* NADOLOL 20 MG TABLET Take 2 tablets by mouth once * NORTRIPTYLINE 10 MG CAPSULE Take 1 capsule by mouth daily* PROCHLORPERAZINE MALEATE 10 M* Take 1 tablet by mouth every * LISINOPRIL 20 MG TABLET Take 1 tablet by mouth once d* CHOLECALCIFEROL (VITAMIN D3) * Take 1 capsule by mouth once * MOMETASONE-FORMOTEROL HFA 200* Inhale 2 Puffs as instructed * OMEPRAZOLE 20 MG CAPSULE,PAUL* Take 1 capsule by mouth twice* DOXEPIN 25 MG CAPSULE take 1 to 2 capsules as neede* FLUOXETINE 40 MG CAPSULE Take 40 mg by mouth every mor* RISPERIDONE 1 MG TABLET take 1 tablet every morning a* PREGABALIN 75 MG CAPSULE Take 1 capsule by mouth twice* INSULIN DEGLUDEC (U-200) 200 * Inject 150 Units subcutaneous* MAPAP (ACETAMINOPHEN) 325 MG * TAKE 2 TABLETS BY MOUTH EVERY* OXYCODONE-ACETAMINOPHEN 5 MG-* ALBUTEROL SULFATE HFA 90 MCG/* Inhale 2 Puffs as instructed * TRIAMCINOLONE ACETONIDE 0.025* Apply 1 application to affect* INDOMETHACIN 25 MG CAPSULE Take 1 capsule by mouth three* DICLOFENAC 1 % TOPICAL GEL Apply 2 g to affected area fo* LANCETS 28 GAUGE Test blood sugar(s) 4- 6 x zarina* BLOOD SUGAR DIAGNOSTIC STRIPS Test blood sugar(s) 4- 6 times* PEN NEEDLE, DIABETIC 31 GAUGE* 1 Each as directed. TO BE USE* NYSTATIN 100,000 UNIT/GRAM TO* Apply 1 application to affect* ALCOHOL SWABS Apply 1 application to affect* COMPOUNDED PRESCRIPTION Medical Bracelet Dx: E11.65 LANCING DEVICE Use 4x daily BLOOD-GLUCOSE METER KIT Freestyle LITE Meter Kit - Dx* LANCING DEVICE use as directed for checking * CPAP Mask (per patient preference)* TENS UNIT AND ELECTRODES COMB* Use as instructed. He is int* COMPOUNDED PRESCRIPTION BLOOD PRESSURE CUFF FOR HOME * Medication notes this encounter MAPAP (ACETAMINOPHEN) 325 MG TABLET >> ZA CHONG 09/07/2017 2:14 PM >> CHARO (PHARMACIST)PRISCILA Mary Jo Sep 07, 2017 2:14 PM Received from: External Pharmacy OXYCODONE-ACETAMINOPHEN 5 MG-325 MG TABLET >> ZA CHONG 09/07/2017 2:14 PM >> CHARO (PHARMACIST)PRISCILA Mary Jo Sep 07, 2017 2:14 PM Received from: External Pharmacy Problem List As Of Date 09/07/2017 Noted Resolved Lumbago [M54.5] INVALID FOR*04/14/2016 Anemia [D64.9] INVALID FOR* Vitamin D deficiency [E55.9] INVALID FOR* Ankle pain, chronic [M25.579, G89.29] INVALID FOR* Obesity [E66.9] INVALID FOR* Asthma [J45.909] INVALID FOR* Diabetes mellitus type 2, uncontrolled, without*INVALID FOR*04/14/2016 Pes planus [M21.40] INVALID FOR* 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 Tendon tear [T14.8XXA] INVALID FOR* Candidal balanitis [B37.42] INVALID FOR* Phimosis [N47.1] INVALID FOR* IDDM (insulin dependent diabetes mellitus) (HCC*INVALID FOR*04/14/2016 PILAR (obstructive sleep apnea) [G47.33] INVALID FOR* HTN (hypertension) [I10] INVALID FOR*04/14/2016 Schizophrenia (HCC) [F20.9] INVALID FOR* Seizure disorder (HCC) [G40.909] INVALID FOR* Essential hypertension [I10] INVALID FOR* Unspecified vitamin D deficiency [E55.9] INVALID FOR* Midline low back pain without sciatica [M54.5] INVALID FOR*04/14/2016 Thoracic or lumbosacral neuritis or radiculitis*INVALID FOR*04/14/2016 Displacement of lumbar intervertebral disc with*INVALID FOR* Diffuse myofascial pain syndrome [M79.1] INVALID FOR* Chronic back pain greater than 3 months duratio*INVALID FOR*04/14/2016 Muscle spasm of back [M62.830] INVALID FOR* Chronic midline low back pain with sciatica [M5*INVALID FOR* Uncontrolled type 2 diabetes mellitus without c*INVALID FOR* Mixed hyperlipidemia [E78.2] INVALID FOR* Microalbuminuria [R80.9] INVALID FOR* Headache [R51] INVALID FOR* Falls frequently [R29.6] INVALID FOR* Bilateral chronic knee pain [M25.561, M25.562, *INVALID FOR* Chronic midline low back pain without sciatica *INVALID FOR* Other instructions from your clinician: Bloodwork today Prescriptions ordered this encounter Disp Refills Start End INSULIN DEGLUDEC (U-200) 200 UNIT/ML* 9 Pen 3 09/07/2017 Cmt: This replaces the Levemir Route: SUBCUTANEOUS Sig: Inject 150 Units subcutaneously every morning. INSULIN ASPART U-100 100 UNIT/ML WOODS* 15 P* 11 09/07/2017 Route: SUBCUTANEOUS Sig: Inject 50 Units subcutaneously three times daily. METFORMIN ER 500 MG TABLET,EXTENDED * 120 * 5 09/07/2017 Sig: Take 2 tablets by mouth in the morning and 2 tablets in the evening. LACTOSE FREE Medications Discontinued During This Encounter insulin detemir (LEVEMIR FLEXTOUCH) * 55 P* 0 04/24/2017 09/07/2017 Cmt: 55 syringes = 11 packages = 90 day supply Sig: Inject 85 units subcutaneously in the morning and 90 units in the evening Disc: Reason for discontinue is not on file. insulin aspart (NOVOLOG FLEXPEN) 100* 45 mL 5 10/06/2016 09/07/2017 Class: Med Update Route: SUBCUTANEOUS Sig: Inject 60 Units subcutaneously three times daily. Adding dosage from sliding scale. Disc: Reason for discontinue is not on file. insulin aspart (NOVOLOG FLEXPEN) 100* 60 mL 11 04/24/2017 09/07/2017 Cmt: Med-sync patient. Route: SUBCUTANEOUS Sig: Inject 60 Units subcutaneously three times daily. Adding dosage from sliding scale. Disc: Reason for discontinue is not on file. metFORMIN ER (GLUCOPHAGE XR) 500 mg * 360 * 3 10/19/2016 09/07/2017 Cmt: Med-syn patient. Route: ORAL Sig: Take 2 tablets by mouth twice daily with meals. LACTOSE FREE Disc: Reason for discontinue is not on file. Encounter Status:Closed by CHARO (PHARMACIST)PRISCILA on 09/07/17 PROGRESS Observed: 09/05/2017 Status: COMPLETED Source: [place] 6:[address] [facility] REPOSITORY [facility] ID: [id number] Author: Marco Kuo Service: (none) Author Type: Physical Therapist Type: Progress Notes Filed: 09/05/2017 8:51 AM Note Text: Episode Visit Count: 3 Therapist That Will Oversee The Plan Of Care: Marco Kuo Start of Care Date: 08/14/17 Onset Date: 07/29/17 Plan of Care Certification Date: 08/14/17 [facility] PHYSICAL THERAPY TREATMENT NOTE ASSESSMENT: Victor Hugo Asif demonstrated no improvements so far with treatment. Patient remains very focussed on pain. Education on Neuroscience of pain today and patient listened closely to this education. Trial of IASTM which was poorly tolerated initially. The patient will continue to benefit from continued skilled physical therapy for plan of care update and continuation of Neuroscience of pain. PLAN FOR NEXT VISIT: Monitor response to manual treatment. POC update next visit. Possibly add additional education on neuroscience of pain. SUBJECTIVE: Patient reports very temporary relief with therapy. Patient reports pain returns soon after doing ex.Patient reports he checked his blood sugar this morning and it was low ,38 and he took Algoodrachelle jaimes for this. He reports he has not rechecked his sugar since. Pain Score: 9/10 Pain Location: Ankle - Right;Ankle - Left Description: Aching;Pulsating;Sharp;Throbbing Frequency: Continuous Post Treatment Pain Score: 7/10 OBJECTIVE MEASURES WITH LEVEL OF FUNCTION: Patient very sensitive to touch B calf region. TREATMENT: Manual Therapy: 1: IASTM using [employer] mix mill tender tools B calf and achilles region x 10 minutes total with gentle push to patient tolerance with patient expressing sensistivity to touch with this treatment. Skilled Intervention: Manual skills to improve joint mobility, ROM, and decrease pain. Utilized anatomy knowledge of the therapist, and assessment of patient's response to intervention. Neuromuscular Re-Education: 1: Neuroscience of pain cards. Pain Intro: Patient introduced to the topic of pain neuroscience education and that improving knowledge of how pain works promotes improved recovery and rehabilitation. Current knowledge and understanding of patient on pain related topics was explored to create baseline. Sensitive Nerves: Patient educated on the concept of the nervous system as the bodies alarm system, and the role of nociception to warn the body of danger. Peripheral nerve sensitization, hyperalgesia and allodynia were explained using metaphors to promote deep learning. Billing: [facility]: Manual Therapy (62486): 1:1 time: 10 minutes (1 unit: 8-22 mins) Neuromuscular Re-education (62666): 1:1 time:30 minutes (2 units: 23-37 mins) Total time: 40 minutes CHIOMA Flores PT EMERGENCY DEPARTMENT Observed: 09/04/2017 Status: F Source: [place] SUMMARY 1:55 PM [facility] REPOSITORY [facility] Medical Records Department [address] [place] [address] Emergency Department Summary 09/04/17 1353 MR#: [id number] Acct: [id number] Name: VICTOR HUGO ASIF Rep #: [id number] : 1985 32 From: Meryl Dasilva DO PCP: Ranjit Anguiano DO Status: REG ER - ER Visit Summary Date of Service: 09/04/17 Chief Complaint: [Hypoglycemia] History of Present Illness: The patient is a 32 M [presents to the emergency department with a low blood sugar episode today. Patient states that this morning he woke up and checked his blood sugar and it was 48 but could not find a whole lot to eat so he just ate a Algood rancher and gave himself 60 units of Levemir. Patient then had to go to physical rehab and did not feel well so he sat down started feeling shaky and breathing fast. EMS was called for the patient who then brought him to the ER. Patient denies any recent illness. Patient states normally his blood sugar is very high.] Physical Examination: [HEENT-PERRLA, EOMI. Cranial nerves II through XII grossly intact. TMs clear. Mucous membranes moist. No adenopathy. Cardiovascular-regular rate and rhythm without murmur or ectopy Lungs-clear to auscultation, chest wall stable without crepitus or subcu emphysema Abdomen-normoactive bowel sounds, soft, nontender, no rebound or rigidity, no peritoneal signs. Extremities-intact 4, normal range of motion, normal pulses, atraumatic] Test Results: [Initial blood sugar on arrival was 62.] Emergency Department Course and Treatment: [Patient was given a meal tray and patient was observed in the emergency department for approximately 2 hours. An hour after eating patient's blood sugar was repeated and was 115.] Treatment Plan: [Patient advised to monitor his blood sugars carefully. 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 It may contain incorrect words, spelling, and punctuation that were not noted in review of the chart prior to signing ED Disposition - Plan for ED Patient: Chief Complaint: Hypoglycemia Referrals: Ranjit Azar DO [Primary Care Provider] - What to do if you have Problems For any increased pain, shortness of breath, bleeding, nausea or vomiting, chest pain, or any unexpected problems, contact your Primary Care Provider. Call [facility] ([phone]) or report to the closest Emergency Room. Call 911 if necessary. 09/04/17 9097 <Electronically signed by Meryl Dasilva DO> Date Meryl Dasilva DO Cosigner Signature (If Indicated): Date CC: Ranjit Anguiano DO DISCHARGE INSTRUCTION Observed: 09/04/2017 Status: F Source: [place] 1:55 PM [facility] REPOSITORY [facility] Medical Records Department [address] [place] [address] Discharge Instruction 09/04/17 1355 MR#: [id number] Acct: [id number] Name: VICTOR HUGO ASIF Aydee Rep #: [id number] : 1985 32 From: Meryl Dasilva DO PCP: Ranjit Anguiano DO Status: REG ER ED Disposition - Plan for ED Patient: Chief Complaint: Hypoglycemia Instructions: ED Diabetes Hypoglycemia Insulin React Referrals: Ranjit Azar DO [Primary Care Provider] - 3-5 Days What to do if you have Problems For any increased pain, shortness of breath, bleeding, nausea or vomiting, chest pain, or any unexpected problems, contact your Primary Care Provider. Call [facility] ([phone]) or report to the closest Emergency Room. Call 911 if necessary. 09/04/17 1355 <Electronically signed by Meryl Dasilva DO> Date Meryl Dasilva DO Cosigner Signature (If Indicated): Date CC: Ranjit Anguiano DO BEDSIDE GLUCOSE Collected: 09/04/2017 Status: F Source: [place] 1:39 PM [facility] REPOSITORY TYPE CODE TESTS RESULT OUT OF REFERENCE UNITS RANGE LAB L501.080 70-110 mg/dL High BEDSIDE GLU 115 Result Comment: MANAGEMENT OF PATIENT CARE PER NURSING PROTOCOL Performed By: #### L501.080 #### [facility] Laboratory Point of Care [address] [place] [address] BEDSIDE GLUCOSE Collected: 09/04/2017 Status: F Source: [place] 12:08 PM [facility] REPOSITORY TYPE CODE TESTS RESULT OUT OF REFERENCE UNITS RANGE LAB L501.080 70-110 mg/dL Low BEDSIDE GLU 62 Result Comment: MANAGEMENT OF PATIENT CARE PER NURSING PROTOCOL Performed By: #### L501.080 #### [facility] Point of Care [address] [place] [address] CNTHERAPY Observed: 09/04/2017 Status: COMPLETED Source: [place] 10:[address] [facility] REPOSITORY OT/PT/Speech Visit (PTWS) VICTOR HUGO ASIF ([id number]) 1985 M Date Time Provider Department 09/04/17 10:00 AM GAB ANDRES (TRAINMAN) PTWS Date Time Provider Department Center 09/04/2017 10:00 AM [id number], NANCY (TRAINMAN) PTWS [facility] Reason for Visit: Physical Therapy [503] PT Discharge [752] Reason For Visit History Recorded Primary Visit Diagnosis:Falls frequently [R29.6] Other Visit Diagnoses:Chronic midline low back pain without sciatica [M54.5, G89.29] Bilateral chronic knee pain [M25.561, M25.562, G89.29] Allergies As of Date: 09/04/2017 Noted Allergy Reaction COCONUT 12/23/2009 10 - Anaphylaxis BACLOFEN 11/25/2015 14 - Other: See Comments Comments: Migraines and lightheadedness LACTOSE 12/23/2009 Comments: Diarrhea PENICILLINS 08/06/2008 8 - GI Upset 12 - Shortness of Breath STRAWBERRY 12/23/2009 Comments: Hives VICODIN (HYDROCODONE-ACETAMINOPHE*06/17/2014 4 - Hives Date Reviewed: 08/04/2017 Reviewed by: Darlin Domingo LPN - Fully Assessed Prescriptions as of 09/04/2017 Sig: ALBUTEROL SULFATE HFA 90 MCG/* Inhale 2 Puffs as instructed * TRIAMCINOLONE ACETONIDE 0.025* Apply 1 application to affect* X VERAPAMIL 40 MG TABLET Take 1 tablet by mouth three * X DULOXETINE 30 MG CAPSULE,PAUL* Take 1 capsule by mouth once * INDOMETHACIN 25 MG CAPSULE Take 1 capsule by mouth three* DIVALPROEX 500 MG TABLET,PAUL* Take 1 tablet by mouth three * DICLOFENAC 1 % TOPICAL GEL Apply 2 g to affected area fo* SUMATRIPTAN 100 MG TABLET Take 1 po at time of migraine* NADOLOL 20 MG TABLET Take 2 tablets by mouth once * NORTRIPTYLINE 10 MG CAPSULE Take 1 capsule by mouth daily* PROCHLORPERAZINE MALEATE 10 M* Take 1 tablet by mouth every * LANCETS 28 GAUGE Test blood sugar(s) 4- 6 x zarina* LISINOPRIL 20 MG TABLET Take 1 tablet by mouth once d* BLOOD SUGAR DIAGNOSTIC STRIPS Test blood sugar(s) 4- 6 times* CHOLECALCIFEROL (VITAMIN D3) * Take 1 capsule by mouth once * PEN NEEDLE, DIABETIC 31 GAUGE* 1 Each as directed. TO BE USE* MOMETASONE-FORMOTEROL HFA 200* Inhale 2 Puffs as instructed * OMEPRAZOLE 20 MG CAPSULE,PAUL* Take 1 capsule by mouth twice* NYSTATIN 100,000 UNIT/GRAM TO* Apply 1 application to affect* ALCOHOL SWABS Apply 1 application to affect* X INSULIN DETEMIR (U-100) 100 U* Inject 85 units subcutaneousl* X INSULIN ASPART U-100 100 UNI* Inject 60 Units subcutaneousl* DOXEPIN 25 MG CAPSULE take 1 to 2 capsules as neede* FLUOXETINE 40 MG CAPSULE Take 40 mg by mouth every mor* RISPERIDONE 1 MG TABLET take 1 tablet every morning a* X METFORMIN ER 500 MG TABLET,EX* Take 2 tablets by mouth twice* COMPOUNDED PRESCRIPTION Medical Bracelet Dx: E11.65 X INSULIN ASPART U-100 100 UNI* Inject 60 Units subcutaneousl* LANCING DEVICE Use 4x daily BLOOD-GLUCOSE METER KIT Freestyle LITE Meter Kit - Dx* LANCING DEVICE use as directed for checking * CPAP Mask (per patient preference)* TENS UNIT AND ELECTRODES COMB* Use as instructed. He is int* PREGABALIN 75 MG CAPSULE Take 1 capsule by mouth twice* COMPOUNDED PRESCRIPTION BLOOD PRESSURE CUFF FOR HOME * Progress Notes: Marco Kuo, PT 09/05/2017 8:51 AM Signed Episode Visit Count: 3 Therapist That Will Oversee The Plan Of Care: Marco Kuo Start of Care Date: 08/14/17 Onset Date: 07/29/17 Plan of Care Certification Date: 08/14/17 REHABILITATION AND SPORTS THERAPY PHYSICAL THERAPY TREATMENT NOTE ASSESSMENT: Victor Hugo Asif demonstrated no improvements so far with treatment. Patient remains very focussed on pain. Education on Neuroscience of pain today and patient listened closely to this education. Trial of IASTM which was poorly tolerated initially. The patient will continue to benefit from continued skilled physical therapy for plan of care update and continuation of Neuroscience of pain. PLAN FOR NEXT VISIT: Monitor response to manual treatment. POC update next visit. Possibly add additional education on neuroscience of pain. SUBJECTIVE: Patient reports very temporary relief with therapy. Patient reports pain returns soon after doing ex.Patient reports he checked his blood sugar this morning and it was low ,38 and he took [employer] for this. He reports he has not rechecked his sugar since. Pain Score: 9/10 Pain Location: Ankle - Right;Ankle - Left Description: Aching;Pulsating;Sharp;Throbbing Frequency: Continuous Post Treatment Pain Score: 7/10 OBJECTIVE MEASURES WITH LEVEL OF FUNCTION: Patient very sensitive to touch B calf region. TREATMENT: Manual Therapy: 1: IASTM using [employer] mill tender tools B calf and achilles region x 10 minutes total with gentle push to patient tolerance with patient expressing sensistivity to touch with this treatment. Skilled Intervention: Manual skills to improve joint mobility, ROM, and decrease pain. Utilized anatomy knowledge of the therapist, and assessment of patient's response to intervention. Neuromuscular Re-Education: 1: Neuroscience of pain cards. Pain Intro: Patient introduced to the topic of pain neuroscience education and that improving knowledge of how pain works promotes improved recovery and rehabilitation. Current knowledge and understanding of patient on pain related topics was explored to create baseline. Sensitive Nerves: Patient educated on the concept of the nervous system as the bodies alarm system, and the role of nociception to warn the body of danger. Peripheral nerve sensitization, hyperalgesia and allodynia were explained using metaphors to promote deep learning. Billing: [facility]: Manual Therapy (98829): 1:1 time: 10 minutes (1 unit: 8-22 mins) Neuromuscular Re-education (20082): 1:1 time:30 minutes (2 units: 23-37 mins) Total time: 40 minutes CHIOMA Flores PT Previous Version Marco Kuo PT 10/27/2017 2:10 PM Signed [facility] REHABILITATION AND SPORTS THERAPY PHYSICAL THERAPY DISCONTINUANCE OF CARE Plan of Care Period: Start of Care Date: 08/14/17 Last Visit Date: 09/04/2017 Therapy Program: The following is a summary of the interventions provided for this episode of care; Therapeutic exercise, Neuromuscular re-education, Manual therapy, Self-senior living management and Patient/Family/Caregiver Education Assessment: Based on most recent visit, patient was progressing slower than expected toward functional goals based on pain levels. Unable to formally assess goal achievement due to non-compliance with therapy plan of care. Reason for Discontinuation of Care: Patient has not returned to therapy or scheduled additional follow-up appointments. Marco Kuo PT Follow-up and Disposition History Recorded Letter Text Rehabilitation and Sports Therapy Physical Therapy Date: 09/04/2017 To Whom It May Concern: Victor Hugo Aydee Asif was seen for Physical Therapy today from 10:00AM to 10:45AM. Please excuse him from work. Thank you, Gab Andres, PT-A [facility] - [address] [place] [address] Rd. - [phone] PROGRESS Observed: 08/29/2017 Status: COMPLETED Source: [place] 11:[address] [facility] [place] REPOSITORY HNO ID: [id number] Author: Marco Kuo Service: (none) Author Type: Physical Therapist Type: Progress Notes Filed: 08/29/2017 1:05 PM Note Text: Episode Visit Count: 2 Therapist That Will Oversee The Plan Of Care: Marco Kuo Start of Care Date: 08/14/17 Onset Date: 07/29/17 Plan of Care Certification Date: 08/14/17 Patient Identified by Name and Date of : Yes REHABILITATION AND SPORTS THERAPY PHYSICAL THERAPY TREATMENT NOTE ASSESSMENT: Victor Hugo Asif demonstrated difficulty with all ankle exercise and was unable to do BAPS at all with either leg in seated PWB position. 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 Patient with increase pain B ankles after exercise today. The patient will continue to benefit from continued skilled physical therapy for trial of manual techniques for pain control and exercise per patient tolerance. PLAN FOR NEXT VISIT: Add manual techniques for pain control with IASTM .Possibly education on neuroscience of pain cards next visit. SUBJECTIVE: Patient reports in the past month he feels like he is getting weaker. Pain Score: 8/10 Pain Location: Ankle - Right;Ankle -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 PAYERS ENCOUNTER GUARANTOR PAYER SUBSCRIBER SOURCE 05/14/2018 VICTOR HUGO LANDEROS Primary VICTOR HUGO FOSTER Insurance:[facility] SMITHDOB: [place] Number: [id number] Hospital [address]Xip: [phone] [id number] Repository [phone] (HP) Date:2018-05-14[address]ATTN: [place] [address]PW: 05/14/2018 Secondary NOT GIVENUNK [place] Insurance:SELF PAY [facility] Number: Effective Repository Date:2018-05-14 04/02/2018 Victor Hugo AsifDOB: Primary Victor Hugo SmithDOB: [facility] [id number] Number: [place] Effective Date: [address]Aeq: (HP) 03/29/2018 Victor Hugo AsifDOB: Primary Victor Hugoaidan AsifDOB: [facility] Insurance:[facility] [id number] [facility] Number: [place]ository [place] Effective Date: [address]Bhn: (HP) 03/27/2018 Victor Hugo SmithDOB: Primary Victor Hugo AsifDOB: [facility] Insurance:[facility] [id number] Regional Medical Center Number: [facility] [place] Effective Date: [address]Jcx: (HP) 02/24/2018 VICTOR HUGO Bajwa Primary VICTOR HUGO [facility] SMITHDOB: Insurance:CARESOURCE SMITHDOB: [facility] W MEDICAIDPolicy [id number], Number[facility] [place] [address]Gyo: [id number] Date: (HP) 02/24/2018 VICTOR HUGO LANDEROS Primary VICTOR HUGO [place] [facility] Insurance:CARESOURCEP SM[facility]DOB[facility] Number: [id number] Hospital [address]Qrr: [phone] [id number] Repository [phone] (HP) Date:2018-02-24 [address]ATTN: CLAIMS [facility] [place] [address]CA: 02/24/2018 Secondary NOT GIVENUNK [facility] Insurance:SELF PAY [facility] Number: Effective Repository Date:2018-02-24 02/23/2018 Victor Hugo Landeros Primary Victor Hugo [address] [place] Insurance:CARESOURCEP SmithDOB: [facility] Number: [id number] Hospital [address]Qtn: [phone] [id number] Repository [phone] () Date:2018-02-23 [address]ATTN: [place] [address]BC: 02/23/2018 Secondary NOT GIVENUNK [place] Insurance:SELF PAY [facility] Number: Effective Repository Date:2018-02-23 02/17/2018 Victor Hugo Landeros Primary Victor Hugo Bajwa Parmjit [address] [place] Insurance:CARESOURCEP SmithDOB: [facility] Number: [id number] Hospital [address]Ptn: [phone] [id number] Repository [phone] () Date:2018-02-17 [address]ATTN: [place] [address]LX: 02/17/2018 Secondary NOT GIVENUNK [place] Insurance:SELF PAY [facility] Number: Effective Repository Date:2018-02-17 02/05/2018 Victor Hugo Landeros Primary Victor Hugo Bajwa [place] [address] [place] Insurance:CARESOURCEP SmithDOB: [facility] Number: [id number] Hospital [address]Ucl: [phone] [id number] Repository [phone] () Date:2018-02-05[address]ATTN: [place] [address]FN: 02/05/2018 Secondary NOT GIVENUNK [place] Insurance:SELF PAY [facility] Number: Effective Repository Date:2018-02-05 01/26/2018 VICTOR HUGO Bajwa Primary VICTOR HUGO ASIFDOB: Insurance:[employer]OURCE SMITHDOB: [facility] W MEDICAIDPolicy [id number] Repository [facility], Number: [place] [address]Quv: [id number] Date: () 01/25/2018 Victor Hugo Landeros Primary Victor Hugo [address] [place] Insurance:CARESOURCEP SmithDOB: [facility] Number: [id number] Hospital [address]Kdq: [phone] [id number] Repository [phone] (HP) Date:2018-01-25[address]ATTN: [place] [address]GQ: 01/25/2018 Secondary NOT GIVENUNK Parmjit Insurance:SELF PAY [facility] Number: Effective Repository Date:2018-01-25 01/11/2018 Victor Hugo Landeros Primary Victor Hugo [address] [place] Insurance:CARESOURCEP SmithDOB: [facility] Number: [id number] Hospital [address]Lka: [phone] [id number] Repository [phone] (HP) Date:2018-01-11[address]ATTN: [place] [address]DU: 01/11/2018 Secondary NOT GIVENUNK Parmjit Insurance:SELF PAY [facility] Number: Effective Repository Date:2018-01-11 01/03/2018 Victor Hugo Landeros Primary Victor Hugo [address] [place] Insurance:CARESOURCEP SmithDOB: [facility] Number: [id number] Hospital [address]Txc: [phone] [id number] Repository [phone] (HP) Date:2018-01-03[address]ATTN: [place] [address]UN: 01/03/2018 Secondary NOT GIVENUNK [place] Insurance:SELF PAY [facility] Number: Effective Repository Date:2018-01-03 12/25/2017 Victor Hugo Landeros Primary Victor Hugo Bajwa [place] [address] [place] Insurance:CARESOURCEP SmithDOB: [facility] Number: [id number] Hospital [address]Isy: [phone] [id number] Repository [phone] () Date:2017-12-25[address]ATTN: [place] [address]KA: 12/25/2017 Secondary NOT GIVENUNK [place] Insurance:SELF PAY [facility] Number: Effective Repository Date:2017-12-25 12/03/2017 Victor Hugo Landeros Primary Victor Hugo Bajwa [place] [address] Insurance:CARESOURCEP SmithDOB: [facility] Number: [id number] Hospital [address]Drn: [phone] [id number] Repository [phone] (HP) Date:2017-12-03[address]ATTN: [place] [address]OL: 12/03/2017 Secondary NOT GIVENUNK [place] Insurance:SELF PAY [facility] Number: Effective Repository Date:2017-12-03 11/20/2017 Victor Hugo Landeros Primary Victor Hugo [address] [place] Insurance:CARESOURCEP SmithDOB: [facility] Number: [id number] Hospital [address]Vxv: [phone] [id number] Repository [phone] (HP) Date:2017-11-20[address]ATTN: [place] [address]LT: 11/20/2017 Secondary NOT GIVENUNK Parmjit Insurance:SELF PAY [facility] Number: Effective Repository Date:2017-11-20 10/07/2017 Victor Hugo Landeros Primary Victor Hugo [address] [place] Insurance:CARESOURCEP SmithDOB: [facility] Number: [id number] Hospital [address]Jde: [phone] [id number] Repository [phone] (HP) Date:2017-10-07[address]ATTN: [place] [address]LN: 10/07/2017 Secondary NOT GIVENUNK [place] Insurance:SELF PAY [facility] Number: Effective Repository Date:2017-10-07 09/26/2017 Victor Hugo Asif151 Primary Victor Hugo FOSTER Insurance:CARESOURCEP SmithDOB: [facility] Number: [id number] Hospital [address]Zqo: [phone] [id number] Repository [phone] (HP) Date:2017-09-26[address]ATTN: [place] [address]VR: 09/26/2017 Secondary NOT GIVENUNK [place] Insurance:SELF PAY [facility] Number: Effective Repository Date:2017-09-26 09/09/2017 Victor Hugo Lanedros Primary Victor Hugo [address] [place] Insurance:CARESOURCEP SmithDOB: [facility] Number: [id number] Hospital [address]Psk: [phone] [id number] Repository [phone] (HP) Date:2017-09-09[address]ATTN: [place] [address]PW: 09/09/2017 Secondary NOT GIVENUNK [place] Insurance:SELF PAY [facility] Number: Effective Repository Date:2017-09-09 09/04/2017 Victor Hugo Landeros Primary Victor Hugo [address] [place] Insurance:CARESOURCEP SmithDOB: [facility] Number: [id number] Hospital [address]Wdb: [phone] [id number] Repository [phone] (HP) Date:2017-09-04[address]ATTN: [place] [address]UV: 09/04/2017 Secondary NOT GIVENUNK Parmjit Insurance:SELF PAY [facility] Number: Effective Repository Date:2017-09-04 08/11/2017 Victor Hugo Landeros Primary Victor Hugo Bajwa [place] [address] Insurance:CARESOURCEP SmithDOB: [facility] Number: [id number] Hospital [address]Eav: [phone] [id number] Repository [phone] () Date:2016-10-03[address]ATTN: [place] [address]PM: 08/11/2017 Secondary NOT GIVENUNK [place] Insurance:SELF PAY [facility] Number: Effective Repository Date:2017-08-04 07/30/2017 Victor Hugo Landeros Primary Victor Hugo Bajwa [place] [address] Insurance:CARESOURCEP SmithDOB: [facility] Number: [id number] Hospital [address]Hik: [phone] [id number] Repository [phone] () Date:2017-07-30[address]ATTN: [place] [address]PX: 07/30/2017 Secondary NOT GIVENUNK Parmjit Insurance:SELF PAY [facility] Number: Effective Repository Date:2017-07-30 07/29/2017 Victor Hugo Landeros Primary Victor Hugo [address] [place] Insurance:CARESOURCEP YefriDOB: [facility] Number: [id number] Hospital [address]Txb: [phone] [id number] Repository [phone] () Date:2017-07-29[address]ATTN: [place] [address]VB: 07/29/2017 Secondary NOT GIVENUNK [place] Insurance:SELF PAY [facility] Number: Effective Repository Date:2017-07-29
== END 2018-05-15 01:49 | disposition home or self-care (01) ==
PROVIDERS: Emergency Provider Emergency Medicine; Family Provider Student in an Organized Health Care Education/Training Program; PCP Student in an Organized Health Care Education/Training Program
DX: M79.10 Myalgia, unspecified site (principal); R11.2 Nausea with vomiting, unspecified; R07.9 Chest pain, unspecified; R06.00 Dyspnea, unspecified; E11.9 Type 2 diabetes mellitus without complications; G40.909 Epilepsy, unspecified, not intractable, without status epilepticus; Z79.4 Long term (current) use of insulin; Z79.84 Long term (current) use of oral hypoglycemic drugs; Z79.899 Other long term (current) drug therapy
CPT/HCPCS: 71045; 71275; 80048; 80164; 84484; 85025; 85379; 87804; 93005; 96361; 96374; 99285; J7030; Q9967; A4216; J2405

== ENCOUNTER 2018-07-17 19:42 | Emergency (ER) | payer MEDICAID, SELFPAY ==
[2018-07-17 19:46] VITALS: BP 124/77; PULSE 72; RESP 14; TEMP 36.6; O2SAT 98; BMI 36.4
[2018-07-17 19:51] VITALS: BP 115/74; PULSE 70; RESP 20; O2SAT 97
--- NOTE | 2018-07-17 20:02 | CT_ITS ---
STUDY: CT BRAIN WITHOUT CONTRAST REASON FOR EXAM: Male, 32 years old. Slow to respond. Arousable to voice commands. Dizzy. History of epilepsy asthma and hypertension. RADIATION DOSAGE (If Supplied By Facility): CTDIvol = ( 44.99 ) mGy, DLP = ( 779.24 ) mGycm TECHNIQUE: Transaxial CT imaging of the brain was performed without administration of intravenous contrast material. Individualized dose optimization techniques were used for this CT. COMPARISON: November 20, 2017 and April 28, 2015. FINDINGS: Normal soft tissue structures. Normal calvarium. There is dilatation of the lateral ventricles, particularly the occipital horns greater than expected for the patient's age. This is been a stable finding since April 28, 2015. Normal white matter tracts of the cerebral hemispheres. Normal basal ganglia and thalami. Normal brainstem. Normal cerebellum. There is no intracranial hemorrhage. There are no findings of an acute ischemic infarction. Normal visualized paranasal sinuses. CT/Brain/Head without Contrast IMPRESSION: Stable dilatation of the lateral ventricles. There is no acute intracranial or calvarial abnormality or interval change. Electronically Signed: Devin Christensen DO at 20:47 EST Tel [phone], Service support ,
[2018-07-17] MEDS: 0.9% Normal Saline 1,000 ML 150 ML IV (20:17)
[2018-07-17 20:31] LABS: Anion Gap 8 (5-15); BUN 10 mg/dL (7-18); BUN/Creat Ratio 9.9 RATIO (10-20); Calcium,Total 8.6 mg/dL (8.5-10.1); Chloride 105 mmol/L (98-107); Creatinine, Serum 1.01 mg/dL (0.70-1.30); EST Glomerular Filtration Rate 89 mL/min (>60); Est Glom Filt Rate - Afr Amer 108 mL/min (>60); Estimated Creatinine Clearance 89.65 ml/min; Glucose 167 mg/dL (74-106); Sodium Level 139 mmol/L (136-145)
[2018-07-17 20:36] LABS: Absolute Lymphocyte Count 2.07 X10^3/ul (0.83-4.51); Absolute Neutrophil Count 3.8 X10^3/uL (2.0-7.7); Basophil# 0.03 X10^3/uL; Basophil% 0.4 % (0-1); Eosinophil# 0.05 X10^3/uL; Eosinophils% 0.7 % (0-5); Hematocrit 38.6 % (40-54); Hemoglobin 12.1 g/dl (13.0-16.5); Lymphocyte # 2.07 X10^3/ul (4.0); Lymphocyte % 30.5 % (19-41); Mean Corp Hgb Conc 31.3 g/gl (32-36); Mean Corpuscular Hgb 25.9 pg (27.0-32.0); Mean Corpuscular Volume 82.5 fL (80-94); Mean Platelet Vol. 10.9 fl (6.2-12.0); Monocyte# 0.84 X10^3/uL; Monocyte% 12.4 % (0-10); Neutrophil # 3.78 X10^3/uL (2.7-7.7); Neutrophil % 55.9 % (47-70); Platelet Count 201 K/mm3 (150-450); RBC Distribution Width CV 13.8 % (11.6-14.6); RBC Distribution Width SD 41.9 fl (35.1-43.9); Red Blood Count 4.68 M/mm3 (4.6-6.2); White Blood Count 6.8 K/mm3 (4.4-11.0)
[2018-07-17 20:41] LABS: POSITIVE COUNT NO; POSITIVE DIFFERENTIAL NO; POSITIVE MORPHOLOGY NO
[2018-07-17 20:48] VITALS: BP 116/68; PULSE 70; RESP 22; O2SAT 94
[2018-07-17 20:51] LABS: Valproic Acid (Depakene) Level 136 ug/mL (50-100)
[2018-07-17 21:08] VITALS: BP 104/72; BP 117/72; BP 121/77; PULSE 70; PULSE 74; PULSE 81; RESP 20; O2SAT 98
[2018-07-17 21:22] LABS: Amphetamine Urine VISTA NEGATIVE (<1000 ng/mL); Barbiturate Urine VISTA NEGATIVE (< 200 ng/mL); Benzodiazepine Urine VISTA NEGATIVE (< 200 ng/mL); Cocaine Urine VISTA NEGATIVE (< 300 ng/mL); Ecstacy Urine VISTA NEGATIVE (< 500 ng/mL); Methadone Urine VISTA NEGATIVE (< 300 ng/mL); PCP Urine VISTA NEGATIVE (< 25 ng/mL); THC Urine VISTA NEGATIVE (< 50 ng/mL); Vista UDS pH Range 7
--- NOTE | 2018-07-17 21:36 | ED.VISSUMM ---
- ER Visit Summary Date of Service: 07/17/18 Chief Complaint: [Dizziness and mental status change] History of Present Illness: The patient is a 32 M [presents to the emergency department complaint of dizziness. Per EMS they were initially called to an unresponsive male however when they arrived there he was able to jump right up and walk to the cot. Patient states that he has been feeling dizzy throughout the day. Patient feeling increased stress to the fact that his is currently in rehab and has been worried about her. Patient complains of a headache and seeing the color purple in his vision. He denies any falls or head injuries. Patient does have a history of diabetes as well as seizure disorder and history of migraines. Patient has been compliant with his medications and does currently take Depakote more as a psychiatric medication. Patient denies feeling suicidal or homicidal. Patient denies taking too much medication.] Physical Examination: [HEENT-PERRLA, EOMI. Cranial nerves II through XII grossly intact. TMs clear. Mucous membranes moist. No adenopathy. Patient somewhat somnolent and does open eyes easily however falls asleep easily. Cardiovascular-regular rate and rhythm without murmur or ectopy Lungs-clear to auscultation, chest wall stable without crepitus or subcu emphysema Abdomen-normoactive bowel sounds, soft, nontender, no rebound or rigidity, no peritoneal signs. Neuro xnmz-noanso-mrnx and heel rod testing within normal limits, negative Romberg, negative pronator drift, fundi benign Extremities-intact ?4, normal range of motion, normal pulses, atraumatic] Test Results: [CBC with differential is normal. Chemistries were normal. Glucose was 167. Alcohol was negative. Toxicology screen was negative. Depakote level was 136.] Emergency Department Course and Treatment: Patient received normal saline in the department. I recommended admitting the patient due to his Depakote toxicity. Patient is absolutely refusing admission and states that he just wants to go home and sleep. I did advise him not to take anymore Depakote until he follows up with his primary care physician in a obtain another level. Patient understands this. Patient is awake alert and oriented at this time and understands my concerns regarding potentially continued dizziness and risk of falls and potential for encephalopathy as well as possibly . [] Treatment Plan: [Follow-up with primary care physician within next 1-2 days.] Disposition: [Discharged AGAINST MEDICAL ADVICE] Impression: [Apical toxicity Dizziness Patient signed out AGAINST MEDICAL ADVICE] This note was generated with [employer] dictation software. It may contain incorrect words, spelling, and punctuation that were not noted in review of the chart prior to signing ED Disposition - Plan for ED Patient: Referrals: Ranjit Azar DO [Primary Care Provider] -
--- NOTE | 2018-07-17 21:44 | ED.DEP ---
ED Disposition - Plan for ED Patient: Instructions: ED Confusion Referrals: Ranjit Azar DO [Primary Care Provider] - 1-2 Days if not improving Additional Instructions: Do not take Depakote until you have another level checked
[2018-07-17 22:12] VITALS: BP 108/66; PULSE 68; RESP 15; O2SAT 100
== END 2018-07-17 22:13 | disposition home or self-care (01) ==
LOC: ED 20:13
PROVIDERS: Emergency Provider Emergency Medicine; Family Provider Student in an Organized Health Care Education/Training Program; PCP Student in an Organized Health Care Education/Training Program
DX: R42 Dizziness and giddiness (principal); T42.6X5A Adverse effect of other antiepileptic and sedative-hypnotic drugs, initial encounter; Y92.9 Unspecified place or not applicable; Z53.21 Procedure and treatment not carried out due to patient leaving prior to being seen by health care provider; E11.9 Type 2 diabetes mellitus without complications; G40.909 Epilepsy, unspecified, not intractable, without status epilepticus; G43.909 Migraine, unspecified, not intractable, without status migrainosus; Z79.4 Long term (current) use of insulin; Z79.84 Long term (current) use of oral hypoglycemic drugs; Z79.899 Other long term (current) drug therapy
CPT/HCPCS: 70450; 80048; 80164; 80307; 80320; 85025; 96360; 96361; 99285; J7030; A4216; G0480

== ENCOUNTER 2018-08-03 07:03 | Emergency (ER) | payer MEDICAID, SELFPAY ==
[2018-08-03 07:05] VITALS: BP 145/97; PULSE 95; RESP 14; TEMP 37.2; O2SAT 99; BMI 33.9
--- NOTE | 2018-08-03 07:19 | ED.VISSUMM ---
- ER Visit Summary Date of Service: 08/03/18 Chief Complaint: Weakness History of Present Illness: Patient is well-known to the emergency department staff and EMS. The patient is a 32 M who states that 2 days ago he had some diarrhea. That resolved yesterday he had some vomiting no on further. He states that last night his blood sugar was 12 at midnight. He states that this morning it was elevated. He went to work but was concerned he might fall out. He continues to feel weak and slow. He notes some blurry vision. Physical Examination: Afebrile vital signs are stable Gen: Well-nourished well-developed Head: Normocephalic atraumatic Eyes: Perrl EOMI ENT: TMs clear no rhinorrhea moist mucous membranes Neck: Supple no lymphadenopathy no JVD nontender CVS: Regular rate rhythm no murmurs normal S1-S2 Respiratory: No distress clear to auscultation bilaterally chest nontender Abdomen: Soft nontender nondistended normal bowel sounds no masses Back: Nontender Extremity: Nontender no edema Skin: Normal color no rash Neuro: alert orientated ?3 CN II-XII intact normal strength sensation reflexes gait cerebellar Psych: Normal affect normal mood Test Results: Depakote was slightly elevated at 103. CBC BMP showed a glucose of 159. Emergency Department Course and Treatment: Patient received IV fluids. He has been watched on the monitor is a normal sinus rhythm. He has had no diarrhea. He appears stable. He will be discharged home. Impression: 1. Gastroenteritis 2. Near syncope This note was generated with [employer] dictation software. It may contain incorrect words, spelling, and punctuation that were not noted in review of the chart prior to signing ED Disposition - Plan for ED Patient: Disposition: Home or Assisted Living Instructions: ED Near Syncope Unkn Referrals: Ranjit Azar DO [Primary Care Provider] - As Needed
[2018-08-03 07:21] LABS: Bedside Glucose 163 mg/dL (70-110)
[2018-08-03] MEDS: 0.9% Normal Saline 1,000 ML 1000 ML IV (07:34)
[2018-08-03 07:55] LABS: Anion Gap 7 (5-15); BUN 10 mg/dL (7-18); BUN/Creat Ratio 10.6 RATIO (10-20); Calcium,Total 8.4 mg/dL (8.5-10.1); Chloride 110 mmol/L (98-107); Creatinine, Serum 0.94 mg/dL (0.70-1.30); EST Glomerular Filtration Rate 97 mL/min (>60); Est Glom Filt Rate - Afr Amer 117 mL/min (>60); Estimated Creatinine Clearance 96.32 ml/min; Glucose 159 mg/dL (74-106); Sodium Level 143 mmol/L (136-145)
[2018-08-03 07:59] LABS: Absolute Neutrophil Count 4.6 X10^3/uL (2.0-7.7); Basophil# 0.03 X10^3/uL; Basophil% 0.4 % (0-1); Eosinophil# 0.03 X10^3/uL; Eosinophils% 0.4 % (0-5); Hematocrit 37.9 % (40-54); Hemoglobin 11.8 g/dl (13.0-16.5); Lymphocyte % 26.9 % (19-41); Mean Corp Hgb Conc 31.1 g/gl (32-36); Mean Corpuscular Hgb 26.3 pg (27.0-32.0); Mean Corpuscular Volume 84.4 fL (80-94); Mean Platelet Vol. 10.9 fl (6.2-12.0); Monocyte# 0.48 X10^3/uL; Monocyte% 6.8 % (0-10); Neutrophil # 4.61 X10^3/uL (2.7-7.7); Neutrophil % 65.4 % (47-70); Platelet Count 209 K/mm3 (150-450); RBC Distribution Width CV 13.9 % (11.6-14.6); RBC Distribution Width SD 42.9 fl (35.1-43.9); Red Blood Count 4.49 M/mm3 (4.6-6.2); White Blood Count 7.1 K/mm3 (4.4-11.0)
[2018-08-03 08:00] LABS: Differential Indicated SCAN CRITERIA MET; POSITIVE COUNT NO; POSITIVE DIFFERENTIAL NO; POSITIVE MORPHOLOGY YES
[2018-08-03 08:34] LABS: Valproic Acid (Depakene) Level 103 ug/mL (50-100)
[2018-08-03 09:08] LABS: Atypical Lymphocyte 1+ %; Reactive Lymphocyte 1+
[2018-08-03 09:16] VITALS: BP 168/84; PULSE 80; RESP 16; O2SAT 100
[2018-08-03 13:21] LABS: Pathologist Review Reviewed
== END 2018-08-03 09:17 | disposition home or self-care (01) ==
PROVIDERS: Emergency Provider Emergency Medicine; Family Provider Student in an Organized Health Care Education/Training Program; PCP Student in an Organized Health Care Education/Training Program
DX: K52.9 Noninfective gastroenteritis and colitis, unspecified (principal); R55 Syncope and collapse; H53.8 Other visual disturbances; E11.9 Type 2 diabetes mellitus without complications; I10 Essential (primary) hypertension; Z79.899 Other long term (current) drug therapy; Z79.4 Long term (current) use of insulin
CPT/HCPCS: 80048; 80164; 82962; 85025; 96360; 99285; J7030

== ENCOUNTER 2018-10-30 19:14 | Emergency (ER) | payer MEDICAID, SELFPAY ==
[2018-10-30 19:16] VITALS: BP 136/93; PULSE 88; RESP 17; TEMP 36.8; O2SAT 98; O2SAT 99; BMI 36.1
[2018-10-30 19:59] VITALS: O2SAT 99
--- NOTE | 2018-10-30 20:55 | EKG12_ITS ---
Test Reason : Blood Pressure : / mmHG Vent. Rate : 058 BPM Atrial Rate : 058 BPM P-R Int : 152 ms QRS Dur : 096 ms QT Int : 412 ms P-R-T Axes : 064 072 060 degrees QTc Int : 404 ms Sinus bradycardia Early repolarization Otherwise normal ECG Confirmed by NAS KUMAR ([id number]), index editor COLT LEY ([id number]) on 11/01/2018 8:33:18 AM Referred By: Confirmed By:NAS KUMAR
--- NOTE | 2018-10-30 21:00 | ED.DCSUM_ITS ---
- ER Visit Summary Date of Service: 10/30/18 Chief Complaint: Lightheaded. History of Present Illness: The patient is a 33 M history of insulin-dependent diabetes, hypertension, asthma and anemia. Also history of seizures. Patient states that he had nausea vomiting earlier today and felt lightheaded around 4 PM. He still did go to work. He denies any headache, chest pain or abdominal pain. He denies any diarrhea or melena. Denies any fever. Physical Examination: Well-appearing young male. Vital signs are stable afebrile. Pulse ox 9 9% room air no signs of hypoxia. No distress. He does not look septic or toxic. He does not look significantly dehydrated. H EENT exam pupils round reactive light extra motions are intact. No facial droop. Normal speech. His left lower jaw at the molar there is irregularity along the gumline he has had a prior jaw fracture. Neck nontender no lymphadenopathy. Lungs clear to auscultation bilaterally. Heart regular rhythm no murmur. Rate about 90. Abdomen soft nontender normal bowel sounds no peritoneal signs. Patient moving all 4 extremities. He has a left ankle and foot brace. That is chronic. Otherwise his extremities are neurovascular intact with normal motor strength and sensation. Back nontender. Neurologically is awake and alert. Moving all 4 extremities. Test Results: CBC White count of 5. Hemoglobin 12.8. No bands. Chemistries normal creatinine 0.9 gap of 5 glucose of 90. EKG sinus bradycardia rate of 58 with no acute change from prior EKG from last year. Chest x-ray one-view portable no acute abnormality normal cardiac silhouette mediastinum read both by myself and the radiologist. Patient was Emergency Department Course and Treatment: Treated with 1 L normal saline. IV Zofran. Multiple repeat exams patient is doing well. Last exam was 2357 is doing well. With normal vital signs. He is comfortable being discharged home. I went over all test results with him. Treatment Plan: Follow-up with his primary care physician. Disposition: Discharge Impression: Acute nausea and vomiting secondary to viral syndrome Dyspnea uncertain etiology resolved History of diabetes This note was generated with [employer] dictation software. It may contain incorrect words, spelling, and punctuation that were not noted in review of the chart prior to signing ED Disposition - Plan for ED Patient: Referrals: Ranjit Azar DO [Primary Care Provider] -
[2018-10-30] MEDS: Ondansetron 4 MG/2 ML Vial IV (21:11)
[2018-10-30] MEDS: 0.9% Normal Saline 1,000 ML 1000 ML IV (21:11)
[2018-10-30 21:20] LABS: Absolute Lymphocyte Count 2.31 X10^3/ul (0.83-4.51); Absolute Neutrophil Count 2.9 X10^3/uL (2.0-7.7); Basophil# 0.05 X10^3/uL; Basophil% 0.9 % (0-1); Eosinophil# 0.15 X10^3/uL; Eosinophils% 2.6 % (0-5); Hemoglobin 12.8 g/dl (13.0-16.5); Lymphocyte # 2.31 X10^3/ul (4.0); Mean Corp Hgb Conc 33.7 g/gl (32-36); Mean Corpuscular Hgb 27.1 pg (27.0-32.0); Mean Corpuscular Volume 80.5 fL (80-94); Mean Platelet Vol. 10.3 fl (6.2-12.0); Monocyte# 0.39 X10^3/uL; Monocyte% 6.8 % (0-10); Neutrophil # 2.87 X10^3/uL (2.7-7.7); Neutrophil % 49.7 % (47-70); Platelet Count 243 K/mm3 (150-450); RBC Distribution Width CV 13.2 % (11.6-14.6); RBC Distribution Width SD 38.8 fl (35.1-43.9); Red Blood Count 4.72 M/mm3 (4.6-6.2); White Blood Count 5.8 K/mm3 (4.4-11.0)
[2018-10-30 21:26] LABS: POSITIVE COUNT NO; POSITIVE DIFFERENTIAL NO; POSITIVE MORPHOLOGY NO
[2018-10-30 21:36] LABS: Anion Gap 5 (5-15); BUN 8 mg/dL (7-18); BUN/Creat Ratio 8.9 RATIO (10-20); Chloride 107 mmol/L (98-107); EST Glomerular Filtration Rate 103 mL/min (>60); Est Glom Filt Rate - Afr Amer 124 mL/min (>60); Estimated Creatinine Clearance 99.65 ml/min; Glucose 90 mg/dL (74-106); Potassium 3.8 mmol/L (3.5-5.1); Sodium Level 141 mmol/L (136-145)
--- NOTE | 2018-10-30 21:49 | RAD_ITS ---
STUDY: X-RAY CHEST REASON FOR EXAM: Male, 33 years old. Dizziness. TECHNIQUE: Single frontal view of the chest. COMPARISON: February 12, 2018 FINDINGS: The lungs are clear and expanded. There is no demonstrated pleural abnormality. Normal size heart. Normal mediastinum and alanis. Normal visualized pulmonary arteries. Normal visualized aortic arch and descending thoracic aorta. Normal visualized thoracic spine. Normal visualized ribs, clavicles, and shoulders. There is no demonstrated abnormality of the visualized soft tissue structures of the upper abdomen. RAD/Chest 1 View (Portable) IMPRESSION: No acute cardiopulmonary process. Electronically Signed: Shantelle Tian MD at 22:29 EDT Tel , Service support ,
[2018-10-30 21:50] VITALS: BP 146/99; PULSE 59; RESP 16; O2SAT 100
[2018-10-30 23:57] VITALS: BP 142/102; PULSE 63; RESP 16; O2SAT 100
--- NOTE | 2018-10-30 23:59 | ED.DEP ---
ED Disposition - Plan for ED Patient: Disposition: Home or Assisted Living Instructions: ED Viral Syndrome, ED Dyspnea Shortness of Breath Referrals: Ranjit Azar DO [Primary Care Provider] - 3-5 Days if not improving Additional Instructions: Zofran as needed for nausea. Plenty of fluids and rest. Watch her blood sugars closely. Your labs are unremarkable tonight follow-up with your doctor in the next several days to make sure you are improving.
[2018-10-31] MEDS: Ondansetron ODT 4 MG Tablet 16 MG PO (00:07)
[2018-10-31 00:08] VITALS: BP 142/102; PULSE 63; RESP 16; O2SAT 100
== END 2018-10-31 00:13 | disposition home or self-care (01) ==
PROVIDERS: Emergency Provider Emergency Medicine; Family Provider Student in an Organized Health Care Education/Training Program; PCP Student in an Organized Health Care Education/Training Program
DX: R11.2 Nausea with vomiting, unspecified (principal); B34.9 Viral infection, unspecified; R06.00 Dyspnea, unspecified; E11.9 Type 2 diabetes mellitus without complications; J45.909 Unspecified asthma, uncomplicated; I10 Essential (primary) hypertension; D64.9 Anemia, unspecified; G40.909 Epilepsy, unspecified, not intractable, without status epilepticus; Z79.84 Long term (current) use of oral hypoglycemic drugs; Z79.4 Long term (current) use of insulin; Z79.899 Other long term (current) drug therapy
CPT/HCPCS: 71045; 80048; 85025; 93005; 96361; 96374; 99283; J7030; A4216; J2405

== ENCOUNTER 2018-11-27 19:45 | Emergency (ER) | payer MEDICAID, SELFPAY ==
[2018-11-27 19:49] VITALS: BP 147/91; PULSE 84; RESP 18; TEMP 36.7; O2SAT 97; BMI 36.8
--- NOTE | 2018-11-27 20:20 | US_ITS ---
STUDY: VENOUS DOPPLER ULTRASOUND - BILATERAL LOWER EXTREMITIES REASON FOR EXAM: Male, 33 years old. Pain both legs TECHNIQUE: Ultrasound evaluation of the deep vein system to include martinez-scale imaging and compression was performed. Martinez-scale imaging and Doppler sonographic evaluation, including duplex spectral analysis and qualitative color flow sonography, was performed. COMPARISON: None. FINDINGS: RIGHT LEG Common Femoral Vein: Normal compression, spontaneity and augmentation. Normal color Doppler. Common Femoral Vein/Greater Saphenous Junction: Normal compression. Present color Doppler. Femoral Proximal: Normal compression. Present color Doppler. Femoral Middle: Normal compression. Present color Doppler. Femoral Distal: Normal compression, spontaneity and augmentation. Normal color Doppler. Popliteal Vein: Normal compression. Present color Doppler. Posterior Tibial Vein: Normal spontaneity and augmentation. Normal color Doppler. LEFT LEG Common Femoral Vein: Normal compression, spontaneity and augmentation. Normal color Doppler. Common Femoral Vein/Greater Saphenous Junction: Normal compression. Present color Doppler. Femoral Proximal: Normal compression. Present color Doppler. Femoral Middle: Normal compression. Present color Doppler. Femoral Distal: Normal compression, spontaneity and augmentation. Normal color Doppler. Popliteal Vein: Normal compression. Present color Doppler. Posterior Tibial Vein: Normal spontaneity and augmentation. Normal color Doppler. US/Venous Duplex Imag/Pito Extrem IMPRESSION: Normal venous Doppler ultrasound of the bilateral lower extremities on submitted images. Electronically Signed: Lou Goss MD at 23:28 EDT , Service support ,
--- NOTE | 2018-11-27 20:50 | ED.VISSUMM ---
- ER Visit Summary Date of Service: 11/27/18 Chief Complaint: Bilateral lower extremity tingling History of Present Illness: The patient is a 33 M presenting with bilateral lower extremity tingling. He states this has been ongoing for the past several years. He states he has never mentioned this to his primary care physician. He states it was previously intermittent and has been more constant over the past 2 weeks. He states he was at work tonight. He felt a pinch in his left calf. He then had trouble walking on his leg secondary to a cramp in his left calf. He has been able to ambulate since. He denies fever. Denies chest pain or shortness of breath. Denies other complaints. Physical Examination: Vitals are stable. Patient is afebrile. Alert no acute distress. HEENT exam is unremarkable. Neck is supple. Lungs are clear and equal bilaterally. Heart is regular rate and rhythm. Abdomen is soft nontender nondistended. Extremities are unremarkable. Bilateral lower extremity paresthesia. Normal strength. Normal distal pulses. No erythema or warmth. Skin is warm and dry. No focal neurologic deficit. Remainder of exam is unremarkable. Emergency Department Course and Treatment: Basic metabolic panel normal except for glucose 132. Venous Doppler bilateral lower extremity shows no evidence of DVT. Patient states his symptoms have been ongoing for several months/years. He is given a prescription for Neurontin and advised to follow-up with his primary care physician. Advised this will likely need to be increased. Advised to return to the ED for worsening complaints. Disposition: Discharge home Impression: Peripheral neuropathy This note was generated with [employer] dictation software. It may contain incorrect words, spelling, and punctuation that were not noted in review of the chart prior to signing ED Disposition - Plan for ED Patient: Instructions: NEUROPATHY, Peripheral Prescriptions: Gabapentin [Neurontin] 100 mg PO TID #42 cap Prescription Printed Referrals: Ranjit Azar DO [Primary Care Provider] -
[2018-11-27 20:53] LABS: Anion Gap 4 (5-15); BUN 14 mg/dL (7-18); BUN/Creat Ratio 16.4 RATIO (10-20); Calcium,Total 8.9 mg/dL (8.5-10.1); Chloride 107 mmol/L (98-107); Creatinine, Serum 0.86 mg/dL (0.70-1.30); EST Glomerular Filtration Rate 108 mL/min (>60); Est Glom Filt Rate - Afr Amer 131 mL/min (>60); Estimated Creatinine Clearance 104.29 ml/min; Glucose 132 mg/dL (74-106); Potassium 3.9 mmol/L (3.5-5.1); Sodium Level 140 mmol/L (136-145)
[2018-11-27 21:45] VITALS: BP 130/111; PULSE 74; RESP 16; O2SAT 100
--- NOTE | 2018-11-27 22:11 | ED.DEP ---
ED Disposition - Plan for ED Patient: Instructions: NEUROPATHY, Peripheral Prescriptions: Gabapentin [Neurontin] 100 mg PO TID #42 capsule Referrals: Ranjit Azar DO [Primary Care Provider] -
[2018-11-27 22:26] VITALS: BP 141/92; PULSE 68; RESP 16; O2SAT 100
== END 2018-11-27 23:11 | disposition home or self-care (01) ==
PROVIDERS: Emergency Provider Emergency Medicine; Family Provider Student in an Organized Health Care Education/Training Program; PCP Student in an Organized Health Care Education/Training Program
DX: E11.42 Type 2 diabetes mellitus with diabetic polyneuropathy (principal); Z79.4 Long term (current) use of insulin; Z79.84 Long term (current) use of oral hypoglycemic drugs; Z79.899 Other long term (current) drug therapy
CPT/HCPCS: 80048; 93970; 99283

== ENCOUNTER 2019-03-11 08:27 | Emergency (ER) | payer MEDICAID, SELFPAY ==
[2019-03-11 08:28] VITALS: BP 178/103; PULSE 96; RESP 16; TEMP 36.2; O2SAT 98; BMI 33.9
--- NOTE | 2019-03-11 08:39 | ED.DCSUM_ITS ---
- ER Visit Summary Date of Service: 03/11/19 Chief Complaint: Cough and vomiting History of Present Illness: The patient is a 33 M who presents the emergency department with 2 days of vomiting as well as cough. He has a history of asthma and states he is been wheezing. No fevers. He notes runny nose. No diarrhea. Patient states he is missing work so he does not expose other people to this illness. He denies posttussive emesis. Physical Examination: Afebrile vital signs are stable Gen: Well-nourished well-developed Head: Normocephalic atraumatic Eyes: Perrl EOMI ENT: TMs clear + rhinorrhea moist mucous membranes Neck: Supple no lymphadenopathy no JVD nontender CVS: Regular rate rhythm no murmurs normal S1-S2 Respiratory: No distress diminished breath sounds bilaterally with expiratory wheeze chest nontender Abdomen: Soft nontender nondistended normal bowel sounds no masses Back: Nontender Extremity: Nontender no edema Skin: Normal color no rash Neuro: alert orientated ?3 CN II-XII intact normal strength Psych: Normal affect normal mood Emergency Department Course and Treatment: Accu-Chek was 143. Patient received breathing treatments. Repeat auscultation shows his lungs to be clear. I am going to write for burst prednisone as well as Zofran. I will write him a work note. Follow-up with his primary care physician Impression: 1. Acute asthma exacerbation 2. Vomiting This note was generated with [employer] dictation software. It may contain incorrect words, spelling, and punctuation that were not noted in review of the chart prior to signing ED Disposition - Plan for ED Patient: Disposition: Home or Assisted Living Instructions: VOMITING (6y-Adult), ASTHMA, Acute (Adult) Prescriptions: RX: Prednisone [Deltasone] 40 mg PO DAILY #10 tab Prescription Printed Ondansetron [Zofran Odt] 4 mg PO Q6H PRN PRN #10 tab PRN Reason: Nausea Prescription Printed Referrals: Ranjit Azar DO [Primary Care Provider] - 3-5 Days if not improving
[2019-03-11] MEDS: predniSONE 20 MG Tablet 40 MG PO (09:14)
[2019-03-11 09:23] VITALS: PULSE 85; RESP 16
[2019-03-11] MEDS: Ipratropium/Albuterol Sulfate 3 ML AMPUL.NEB INHALATION (09:23)
[2019-03-11] MEDS: Albuterol 2.5 MG/3 ML VIAL.NEB. INHALATION (09:23)
[2019-03-11 09:26] LABS: Bedside Glucose 143 mg/dL (70-110)
== END 2019-03-11 10:03 | disposition home or self-care (01) ==
PROVIDERS: Emergency Provider Emergency Medicine; Family Provider Student in an Organized Health Care Education/Training Program; PCP Student in an Organized Health Care Education/Training Program
DX: J45.901 Unspecified asthma with (acute) exacerbation (principal); R11.2 Nausea with vomiting, unspecified; E11.9 Type 2 diabetes mellitus without complications; I10 Essential (primary) hypertension; G40.909 Epilepsy, unspecified, not intractable, without status epilepticus; F32.9 Major depressive disorder, single episode, unspecified; Z79.4 Long term (current) use of insulin; Z79.84 Long term (current) use of oral hypoglycemic drugs; Z79.899 Other long term (current) drug therapy; Z87.891 Personal history of nicotine dependence
CPT/HCPCS: 82962; 94640; 99282

== ENCOUNTER 2019-04-18 03:43 | Emergency (ER) | payer MEDICAID, SELFPAY ==
[2019-04-18 03:44] VITALS: BP 165/93; PULSE 84; RESP 16; TEMP 36.1; O2SAT 99; BMI 38.2
--- NOTE | 2019-04-18 03:55 | ED.VIS.GEN ---
History of Present Illness Chief Complaint: Nausea/Vomiting Informant: Patient Narrative: Stated evening he developed acute onset of vomiting 3 times. Does not think is related to food. No sick contacts. Denies any diarrhea. He has diffuse abdominal cramping. No home treatment. No fevers or chills. He felt fine before the vomiting started. - Past Medical History (1) SOB (shortness of breath) Status: Acute (2) Asthma Status: Chronic Comment: With severe insulin resistance (3) Depression Status: Chronic (4) HTN (hypertension) Status: Chronic (5) Seizure Status: Chronic (6) Super-super obese Status: Chronic Past Medical History - Allergies and Home Meds Allergies/Adverse Reactions: Allergies hydrocodone bitartrate [From Vicodin] Allergy (Verified 04/18/19 03:50) Hives strawberry Allergy (Verified 04/18/19 03:50) Hives acetaminophen Adverse Reaction (Verified 04/18/19 03:50) Nausea/hives baclofen Adverse Reaction (Verified 04/18/19 03:50) IT MAKES HIM LIGHTHEADED AND SICK lactose Adverse Reaction (Verified 04/18/19 03:50) Nausea Penicillins Adverse Reaction (Verified 04/18/19 03:50) Nausea COCONUT Allergy (Uncoded 04/18/19 03:50) Hives Primary Care Physician: Ranjit Azar DO [Primary Care Provider] - Prior records reviewed: Yes Past Medical History: - - See problem list Surgical History: tonsillectomy, - Lives: With Family Smoking Status: Never smoker Alcohol: None Drugs: None - Family History Paternal Family History: Reports: Unknown Maternal Family History: Reports: Unknown Review of Systems General: Denies: Chills, Fever, Sweats Eyes: Denies: Visual changes - bilaterally, Diplopia ENT: Denies: Rhinorrhea, Sore throat Cardiovascular: Denies: Chest pain, Palpitations Respiratory: Denies: Dyspnea, Cough, Dyspnea on exertion Gastrointestinal: Reports: Abdominal pain, Nausea, Vomiting. Denies: Diarrhea, Melena, Hematochezia Genitourinary: Denies: Dysuria, Hematuria, Frequency Musculoskeletal: Denies: Back pain, Extremity Pain Skin: Denies: Rash, Wounds Neurological: Denies: Headache, Weakness, Numbness Physical Exam Vital Signs/Narrative: Vital Signs Temp Pulse Resp BP Pulse Ox 04/18/19 03:44 96.9 F L 84 16 165/93 H 99 General: Well nourished, Well developed, No Acute Distress Head: Normocephalic, Atraumatic Eyes: Perrl, EOMI ENT: Moist mucous membranes, No rhinorrhea Neck: Supple, Nontender Cardiovascular: Regular rate, Regular rhythm, No murmurs Respiratory: No distress, CTA bilaterally, Chest nontender Abdomen: Soft, Nondistended, Normal bowel sounds, Tender - Mild diffuse tenderness. Negative for: Nontender, Guarding, Rebound tenderness Back: Nontender, Normal Inspection Extremities: Nontender, No edema Skin: Normal color, No rash Neurological: Alert, Oriented x3, Cranial nerves II-XII grossly intact, Normal Strength, Normal Sensation Psychological: Normal affect, Normal Mood Diagnostic/Tx/Re-eval Laboratory Results 04/18/19 04/18/19 04:05 04:05 WBC 6.6 RBC 4.50 L Hgb 11.8 L Hct 36.6 L MCV 81.3 MCH 26.2 L MCHC 32.2 RDW Std Deviation 38.5 RDW Coeff of Ferny 13.1 Plt Count 248 MPV 10.5 Immature Gran % (Auto) 0.200 Neut % (Auto) 59.2 Lymph % (Auto) 27.9 Petroleum % (Auto) 10.7 H Eos % (Auto) 1.2 Baso % (Auto) 0.8 Absolute Neuts (auto) 3.9 Absolute Lymphs (auto) 1.83 Nucleated RBC % 0 Sodium 138 Potassium 3.2 L Chloride 104 Carbon Dioxide 25.0 Anion Gap 9 BUN 9 Creatinine 1.03 Estim Creat Clear Calc 87.08 Est GFR (MDRD) Af Amer 105 Est GFR (MDRD) Non-Af 87 BUN/Creatinine Ratio 8.7 L Glucose 212 H Calcium 8.7 Total Bilirubin 0.30 AST 40 H ALT 24 Alkaline Phosphatase 77 Total Protein 7.8 Albumin 3.4 Globulin 4.4 H Albumin/Globulin Ratio 0.8 L Lipase 280 - Medical Decision Making IV fluids Toradol Zofran. Lab work obtained. Lab work shows a mildly low hemoglobin 11. This is unchanged from prior. Electrolytes show a mildly low potassium at 3.2. Patient's BUN and creatinine are normal. Patient's liver function tests show slightly elevated AST which is down from previous. Lipase negative. Patient felt better after treatment with fluids Toradol and Zofran. At this time I feel he has an uncomplicated nausea and vomiting with abdominal cramping. He will be discharged with Zofran and Phenergan. ED Disposition - Plan for ED Patient: Disposition: Home or Assisted Living Diagnosis: Nausea and vomiting Instructions: VOMITING (6y-Adult) Prescriptions: Dicyclomine HCl [Bentyl] 20 mg PO TIDAC #20 cap Prescription Printed proMETHazine tablet [Phenergan] 25 mg PO Q6H PRN PRN #10 tab PRN Reason: Nausea Prescription Printed Ondansetron [Zofran Odt] 4 mg PO Q8H PRN PRN #10 tab PRN Reason: Nausea Prescription Printed Referrals: Ranjit Azar DO [Primary Care Provider] -
[2019-04-18] MEDS: Ketorolac 30 MG/ML Syringe IV (04:00)
[2019-04-18] MEDS: 0.9% Normal Saline 1,000 ML 1000 ML IV (04:00)
[2019-04-18] MEDS: Ondansetron 4 MG/2 ML Vial IV ×2 (04:00→05:11)
[2019-04-18 04:16] LABS: Absolute Lymphocyte Count 1.83 X10^3/uL (0.83-4.51); Absolute Neutrophil Count 3.9 X10^3/uL (2.0-7.7); Basophil# 0.05 X10^3/uL; Basophil% 0.8 % (0-1); Eosinophil# 0.08 X10^3/uL; Eosinophils% 1.2 % (0-5); Hematocrit 36.6 % (40-54); Hemoglobin 11.8 g/dL (13.0-16.5); Lymphocyte # 1.83 X10^3/ul (4.0); Lymphocyte % 27.9 % (19-41); Mean Corp Hgb Conc 32.2 g/dL (32-36); Mean Corpuscular Hgb 26.2 pg (27.0-32.0); Mean Corpuscular Volume 81.3 fL (80-94); Mean Platelet Vol. 10.5 fl (6.2-12.0); Monocyte% 10.7 % (0-10); NRBC Flagged by Analyzer 0 % (0-5); Neutrophil # 3.88 X10^3/uL (2.7-7.7); Neutrophil % 59.2 % (47-70); Platelet Count 248 K/mm3 (150-450); RBC Distribution Width CV 13.1 % (11.6-14.6); RBC Distribution Width SD 38.5 fl (35.1-43.9); White Blood Count 6.6 K/mm3 (4.4-11.0)
[2019-04-18 04:29] LABS: ALB/GLOB Ratio 0.8 RATIO (0.9-2.4); AST(SGOT) 40 U/L (15-37); Alanine Aminotransfer ALT/SGPT 24 U/L (16-61); Albumin, Serum 3.4 g/dL (3.2-5.0); Alkaline Phosphatase 77 U/L (45-117); Anion Gap 9 (5-15); BUN 9 mg/dL (7-18); BUN/Creat Ratio 8.7 RATIO (10-20); Calcium,Total 8.7 mg/dL (8.5-10.1); Chloride 104 mmol/L (98-107); Creatinine, Serum 1.03 mg/dL (0.70-1.30); EST Glomerular Filtration Rate 87 mL/min (>60); Est Glom Filt Rate - Afr Amer 105 mL/min (>60); Estimated Creatinine Clearance 87.08 ml/min; Globulin 4.4 g/dL (2.2-4.2); Glucose 212 mg/dL (74-106); Lipase 280 U/L (73-393); Potassium 3.2 mmol/L (3.5-5.1); Protein, Total 7.8 g/dL (6.4-8.2); Sodium Level 138 mmol/L (136-145)
[2019-04-18 05:47] VITALS: RESP 18
[2019-04-23 09:46] LABS: Bedside Glucose 153 mg/dL (70-110)
== END 2019-04-18 05:47 | disposition home or self-care (01) ==
PROVIDERS: Emergency Provider Emergency Medicine; Family Provider Student in an Organized Health Care Education/Training Program; PCP Student in an Organized Health Care Education/Training Program
DX: R11.2 Nausea with vomiting, unspecified (principal); D64.9 Anemia, unspecified; R10.84 Generalized abdominal pain; J45.909 Unspecified asthma, uncomplicated; F32.9 Major depressive disorder, single episode, unspecified; I10 Essential (primary) hypertension; G40.909 Epilepsy, unspecified, not intractable, without status epilepticus; E66.9 Obesity, unspecified; Z79.899 Other long term (current) drug therapy
CPT/HCPCS: 36415; 80053; 82962; 83690; 85025; 96361; 96374; 96375; 96376; 99285; J7030; J2405

== ENCOUNTER 2019-04-19 17:06 | Inpatient (IN) | payer MEDICAID, SELFPAY ==
[2019-04-18 03:44] VITALS: BMI 38.2
[2019-04-19 17:07] VITALS: BP 162/92; PULSE 90; RESP 15; TEMP 36; O2SAT 100; BMI 36.6
--- NOTE | 2019-04-19 17:37 | CT_ITS ---
STUDY: CT ABDOMEN AND PELVIS WITHOUT CONTRAST REASON FOR EXAM: Male, 33 years old. DIFFUSE ABD PAIN AND NAUSEA X 2 DAYS, ELEVATED WBC RADIATION DOSAGE (If Supplied By Facility): CTDIvol = ( 20.4 ) mGy, DLP = ( 1310.07 ) mGycm TECHNIQUE: Transaxial images were obtained from the dome of the diaphragm to the symphysis pubis without oral contrast, and without intravenous contrast. Sagittal and coronal images were reconstructed. Individualized dose optimization techniques were used for this CT. COMPARISON: CT of abdomen and pelvis dated May 15, 2018 FINDINGS: The gallbladder wall is moderately thickened and edematous and mild to moderate pericholecystic inflammatory stranding is present compatible with acute cystitis. No visualized radiopaque stones of the gallbladder or the CBD on this study. Minor linear atelectasis is present in the right lung base. Normal liver. No intrahepatic biliary duct dilatation or liver mass. Normal spleen. Normal pancreas. Normal bilateral adrenal glands. Normal right kidney. Normal left kidney. No hydronephrosis or renal masses. No large stones. Normal visualized stomach. Normal small intestine. A few diverticula of the descending colon are present. The remaining colonic loops are unremarkable. No bowel dilatation or obstruction. No free air or free fluid. The appendix is visualized and appears normal. Normal abdominal aorta. Normal inferior vena cava. Normal retroperitoneum. Normal urinary bladder. Normal abdominal wall. Normal osseous structures. CT/Abdomen/Pelvis W IV Cont ONLY IMPRESSION: 1. Acute cholecystitis. The patient is currently being evaluated in the emergency room. 2. Colonic diverticulosis. Electronically Signed: Torito Matute MD at 19:09 EST , Service support ,
[2019-04-19] MEDS: 0.9% Normal Saline 1,000 ML 1000 ML IV (17:57)
[2019-04-19] MEDS: Ondansetron 4 MG/2 ML Vial IV (17:57)
[2019-04-19] MEDS: Morphine 4 MG/ML Syringe IV ×2 (17:57→19:33)
[2019-04-19 18:21] LABS: Bacteria 0 SEEN /hpf (None Seen); Color, Urine Amber (Yellow); Glucose, Dipstick 50 mg/dl (Normal); Ketone-Dipstick 5 mg/dl (Negative); Leukocyte Esterase-Dipstick 25 /ul (Negative); Nitrite-Dipstick Negative (Negative); Occult Blood-Urine Negative /ul (Negative); Protein-Dipstick 100 mg/dl (Negative); Red Blood Cells-Urine 0 SEEN /hpf (0-5); Specific Gravity, Urine 1.025 (1.002-1.030); Urine Clarity Clear (Clear); Urine Urobilinogen 4 mg/dl (Normal)
[2019-04-19 18:24] LABS: Urine Bilirubin Dipstick 1 mg/dL (Negative)
[2019-04-19 18:28] LABS: Absolute Lymphocyte Count 0.81 X10^3/uL (0.83-4.51); Absolute Neutrophil Count 18.8 X10^3/uL (2.0-7.7); Basophil# 0.03 X10^3/uL; Basophil% 0.1 % (0-1); Eosinophil# 0.01 X10^3/uL; Hematocrit 43.9 % (40-54); Hemoglobin 14.1 g/dL (13.0-16.5); Lymphocyte # 0.81 X10^3/ul (4.0); Lymphocyte % 3.8 % (19-41); Mean Corp Hgb Conc 32.1 g/dL (32-36); Mean Corpuscular Hgb 26.3 pg (27.0-32.0); Mean Corpuscular Volume 81.9 fL (80-94); Mean Platelet Vol. 10.9 fl (6.2-12.0); Monocyte# 1.42 X10^3/uL; Monocyte% 6.7 % (0-10); NRBC Flagged by Analyzer 0 % (0-5); Neutrophil # 18.76 X10^3/uL (2.7-7.7); Neutrophil % 88.6 % (47-70); POSITIVE MORPHOLOGY YES; Platelet Count 257 K/mm3 (150-450); RBC Distribution Width CV 13.6 % (11.6-14.6); RBC Distribution Width SD 40.1 fl (35.1-43.9); Red Blood Count 5.36 M/mm3 (4.6-6.2); White Blood Count 21.2 K/mm3 (4.4-11.0)
[2019-04-19 18:29] LABS: ALB/GLOB Ratio 0.6 RATIO (0.9-2.4); AST(SGOT) 31 U/L (15-37); Alanine Aminotransfer ALT/SGPT 21 U/L (16-61); Albumin, Serum 3.4 g/dL (3.2-5.0); Alkaline Phosphatase 87 U/L (45-117); Anion Gap 6 (5-15); BUN 10 mg/dL (7-18); BUN/Creat Ratio 10.6 RATIO (10-20); Calcium,Total 9.4 mg/dL (8.5-10.1); Chloride 101 mmol/L (98-107); Creatinine, Serum 0.94 mg/dL (0.70-1.30); EST Glomerular Filtration Rate 96 mL/min (>60); Est Glom Filt Rate - Afr Amer 117 mL/min (>60); Estimated Creatinine Clearance 95.41 ml/min; Globulin 5.3 g/dL (2.2-4.2); Glucose 156 mg/dL (74-106); Lipase 90 U/L (73-393); Potassium 3.7 mmol/L (3.5-5.1); Protein, Total 8.7 g/dL (6.4-8.2); Sodium Level 133 mmol/L (136-145)
[2019-04-19 18:33] LABS: Mucous, Urine 2+ /hpf (<or=2+); White Blood Cells 0-5 SEEN /hpf (0-5)
[2019-04-19 18:34] LABS: Hyaline Cast 0-5 SEEN /lpf (0-5); Squamous Epithelial Cells - UA 0-5 SEEN /hpf (0-5)
[2019-04-19 18:37] LABS: Differential Indicated SCAN CRITERIA MET
[2019-04-19 18:59] VITALS: BP 189/104; PULSE 89; RESP 18; TEMP 37.2; O2SAT 100
[2019-04-19 19:04] LABS: Anisocytosis RARE; Platelet Estimate ADEQUATE (ADEQ); Red Cell Morphology N CHROM NORMAL (NORM C&C)
[2019-04-19] MEDS: Ciprofloxacin 400 MG/200 ML BAG 200 MG IV (19:33)
--- NOTE | 2019-04-19 19:43 | ED.DCSUM_ITS ---
- ER Visit Summary Date of Service: 04/19/19 Chief Complaint: Abdominal pain History of Present Illness: The patient is a 33 M with upper abdominal pain for 2 days. Associate with nausea vomiting. He never had this before. Patient has a history of schizophrenia. His history is limited as he speaks in short sentences, so much of his history was obtained from prior records and from his PCP. He was seen in the ED yesterday. Diagnosed with nausea and vomiting. He was treated with antiemetics and Bentyl. His pain was worse. He saw his PCP today and was referred to the ED for continued symptoms. He denies fevers, jaundice. Denies any history of abdominal surgery. He has a history of coronary disease, but cannot provide any further details. His records indicate a history of asthma, hypertension, diabetes, chronic kidney disease, sleep apnea, schizophrenia, seizures. He had history of dental surgery and jaw surgery. He does not take blood thinners. Physical Examination: Afebrile and vital signs are unremarkable. Alert and oriented. No acute distress. Abdomen is diffusely tender to palpation. No guarding or rebound. Skin is unremarkable. Test Results: White count 21.2, elevated since yesterday. CMP and lipase unremarkable. Urinalysis unremarkable. CT shows changes associated with acute cholecystitis. I reviewed the imaging independently and agree with the radiologist. Emergency Department Course and Treatment: Patient was treated with fluids, morphine, and Zofran. He has an allergy to hydrocodone, but says that morphine is okay. His lab work indicated a leukocytosis, but he does not meet sepsis criteria. CT showed cholecystitis. He was treated with Cipro and Flagyl as he has an allergy to penicillin. He does not have a general surgeon, so I discussed him with Dr. Hubbard who is on-call. He will evaluate the patient in the ED. The patient has multiple medical issues and he asked for medicine admission. I paged the hospitalist for further care. Treatment Plan: As above Disposition: Admission Impression: 1. Acute cholecystitis This note was generated with [employer] dictation software. It may contain incorrect words, spelling, and punctuation that were not noted in review of the chart prior to signing ED Disposition - Plan for ED Patient: Referrals: Ranjit Azar DO [Primary Care Provider] -
--- NOTE | 2019-04-19 19:49 | EKG12_ITS ---
Test Reason : PRE-OP Blood Pressure : / mmHG Vent. Rate : 095 BPM Atrial Rate : 095 BPM P-R Int : 138 ms QRS Dur : 080 ms QT Int : 340 ms P-R-T Axes : 059 046 033 degrees QTc Int : 427 ms Normal sinus rhythm Normal ECG Confirmed by AVTAR JOSEPH, TRINIDAD ([id number]), senior editor [employer] ([id number]) on 04/23/2019 11:14:19 AM Referred By: Tito Degroot Confirmed By:TRINIDAD NOVA MD
--- NOTE | 2019-04-19 19:55 | RAD_ITS ---
STUDY: X-RAY CHEST REASON FOR EXAM: Male, 33 years old. abdominal pain, preoperative evaluation TECHNIQUE: Single AP portable view of the chest. COMPARISON: October 30, 2018 FINDINGS: The lungs are clear and expanded. There is no demonstrated pleural abnormality. Normal size heart. Normal mediastinum and alanis. Normal visualized pulmonary arteries. Stable visualized osseous structures. RAD/Chest 1 View (Portable) IMPRESSION: Normal x-ray examination of the chest. Electronically Signed: Torito Matute MD at 20:11 EST , Service support ,
--- NOTE | 2019-04-19 19:56 | ED.RN ---
CALLED PHARMACY ABOUT FLAGYL ORDER NOT RECEIVED.
[2019-04-19] MEDS: metroNIDAZOLE 500 MG/100 ML BAG 100 MG IV (20:07)
--- NOTE | 2019-04-19 20:21 | HP.PCM_ITS ---
Problem List (1) Cholecystitis Status: Acute History of Present Illness Date of Admission: 04/19/19 Chief Complaint: abdominal pain The patient is a 33 year old M who was in his normal state of health up until a few days ago where he started experiencing diffuse abdominal pain. Presented to the emergency room on the and was sent home Bentyl Phenergan and Zofran. Patient got worse and presented back to the emergency room. Underwent a CT of his abdomen that showed acute cholecystitis. Dr. Hubbard, general surgery was contacted and given the patient's medical and psychiatric history deferred admission to the hospital service to which we were involved. Patient is never had a known history of a cholecystitis. His report of a coronary artery disease on paperwork but patient denies ever having a heart cath or open heart surgery. Patient states that he is active does chores around his house but also works out every morning with doing push-ups and sit ups. He does his workouts and housework and chores without any chest pain or shortness of breath. [] Past Medical History Past Medical History (Chronic Problems): Chronic Problems Depression (Chronic) Asthma (Chronic) With severe insulin resistance HTN (hypertension) (Chronic) Super-super obese (Chronic) Seizure (Chronic) Medical History: Medical History (Last Updated 04/19/19 @ 20:24 by Tito Degroot DO) DM2 (diabetes mellitus, type 2) E11.9 Schizoaffective disorder F25.9 HTN (hypertension) I10 Allergies hydrocodone bitartrate [From Vicodin] Allergy (Verified 04/19/19 17:06) Hives strawberry Allergy (Verified 04/19/19 17:06) Hives acetaminophen Adverse Reaction (Verified 04/19/19 17:06) Nausea/hives baclofen Adverse Reaction (Verified 04/19/19 17:06) IT MAKES HIM LIGHTHEADED AND SICK lactose Adverse Reaction (Verified 04/19/19 17:06) Nausea Penicillins Adverse Reaction (Verified 04/19/19 17:06) Nausea COCONUT Allergy (Uncoded 04/19/19 17:06) Hives Home Medications: Ambulatory Orders Medication Instructions Recorded Albuterol IH (ProAir) [Proair Hfa] 2 puff INHALATION Q6H PRN PRN 10/22/14 Cholecalciferol (VIT D3) [Vitamin 50,000 unit PO WE 10/22/14 D3] Divalproex Sodium [Depakote] 500 mg PO QHS 10/22/14 metFORMIN HCl [Glucophage] 1,000 mg PO BIDCM 10/22/14 Lisinopril [Zestril] 20 mg PO DAILY 03/06/15 Insulin Aspart [Novolog Flexpen] 50 units SC TIDCM 11/12/15 Duloxetine Hcl [Cymbalta] 30 mg PO DAILY 02/29/16 Triamcinolone 0.025% Cream 1 applic TOPICAL TID 02/29/16 [Kenalog] Insulin Degludec [Tresiba 150 unit SQ DAILY 09/10/17 Flextouch U-200] Nadolol 40 mg PO DAILY 09/10/17 Diclofenac Sodium [Voltaren] 1 applic TP 4X/DAY 01/11/18 Doxepin HCl [Sinequan] 25 - 50 mg PO PRN PRN 01/11/18 Fluoxetine [Prozac] 40 mg PO DAILY 01/11/18 Nortriptyline HCl 10 mg PO QHS 01/11/18 Nystatin [Mycostatin] 1 applic TOPICAL 4X/DAY 01/11/18 Prochlorperazine Maleate 10 mg PO Q8H PRN PRN 01/11/18 [Compazine] Risperidone [Risperdal] 1 mg PO BREAKFAST 01/11/18 Risperidone [Risperdal] 2 mg PO QHS 01/11/18 Tizanidine HCl [Zanaflex] 4 mg PO 4X/DAY 01/11/18 Mometasone/Formoterol [Dulera 200 2 puff IH BID 02/17/18 Mcg/5 Mcg Inhaler] Verapamil HCl 40 mg PO DAILY 02/24/18 Gabapentin [Neurontin] 100 mg PO TID #42 cap 11/27/18 Ondansetron [Zofran Odt] 4 mg PO Q6H PRN PRN #10 tab 03/11/19 Prednisone [Deltasone] 40 mg PO DAILY #10 tab 03/11/19 Dicyclomine HCl [Bentyl] 20 mg PO TIDAC #20 cap 04/18/19 proMETHazine tablet [Phenergan] 25 mg PO Q6H PRN PRN #10 tab 04/18/19 Surgical History: tonsillectomy, - Smoking Status: Former smoker Alcohol: None - *Family History Paternal History Items: Unknown Maternal History Items: Unknown Review of Systems Constitutional: Reports: Malaise. Denies: Anorexia, Chills, Fever Eyes: Denies: Blurred vision, Double vision HEENT: Denies: Head Aches, Sinus Congestion, Sinus Drainage Cardiovascular: Denies: Chest Pain, Palpitations Respiratory: Denies: Cough, Shortness of breath at rest, Sputum production Gastrointestinal: Reports: Abdominal Pain. Denies: Diarrhea, Vomiting Genitourinary: Denies: Dysuria Musculoskeletal: Reports: - - diffuse myalgias. Denies: Joint Pain, Joint Tenderness Skin: Denies: Dryness, Jaundice Neurological: Denies: Numbness, Tingling, Focal weakness Hematologic/ Lymphatic: Denies: Easy Bruising, Easy Bleeding, Hx of blood clot Comment: All review systems are otherwise negative except for as mentioned above and in the HPI. VTE Information - Inpt Only VTE Present on Admission: No VTE Mechan Device Prophylaxis: None VTE Pharm Prophylaxis ordered?: Yes Patient Problems: Active and Suspected Problems Cholecystitis (Acute) - Physical Exam Vitals/I&O's: Vital Signs Temp Pulse Resp BP Pulse Ox 37.2 C 89 18 189/104 H 100 04/19/19 18:59 04/19/19 18:59 04/19/19 18:59 04/19/19 18:59 04/19/19 18:59 Oxygen Delivery Method Room Air Weight: 99.79 kg Body Mass Index (BMI) 36.6 Finger Stick Blood Glucose 143 Intake and Output for Last 24 Hours 04/17/19 04/18/19 04/19/19 23:59 23:59 23:59 Intake Total 1000 / 1000 Balance 1000 / 1000 General: Alert, - - Uncomfortable. Afebrile. HEENT: Atraumatic, Normocephalic Oral: Moist Mucosa, No Gingival or Mucosal Lesions/ Ulcerations Neck: No Nodes, Trachea Midline Lungs: Clear to auscultation, Normal air movement, No rhonchi, No wheeze Cardiovascular: Regular rate, Regular Rhythm, Normal S1, Normal S2, No murmurs Abdomen: Bowel Sounds Present, Soft, Guarding, Tender - Used to tender especially in the right upper quadrant Extremities: No edema, No Calf Tenderness Skin: No rashes, No breakdown Musculoskeletal: No Tenderness to Palpation of Joints or Extremities, No Muscle Wasting Neurological: Deep Tendon Reflexes 2+/4 and Symmetrical, - - No clonus Psych/Mental Status: Appropriate, Anxious Laboratory Results 04/19/19 17:51: Sodium 133 L, Potassium 3.7, Chloride 101, Carbon Dioxide 26.0, Anion Gap 6, BUN 10, Creatinine 0.94, Estim Creat Clear Calc 95.41, Est GFR (MDRD) Af Amer 117, Est GFR (MDRD) Non-Af 96, BUN/Creatinine Ratio 10.6, Glucose 156 H, Calcium 9.4, Total Bilirubin 1.00, AST 31, ALT 21, Alkaline Phosphatase 87, Total Protein 8.7 H, Albumin 3.4, Globulin 5.3 H, Albumin/Globulin Ratio 0.6 L, Lipase 90 04/19/19 17:59: Urine Color [place], Urine Clarity Clear, Urine pH 5.0, Ur Specific [place] 1.025, Urine Protein 100 H, Urine Glucose (UA) 50 H, Urine Ketones 5 H, Urine Occult Blood Negative, Urine Nitrite Negative, Urine Bilirubin 1 H, Urine Urobilinogen 4 H, Ur Leukocyte Esterase 25 H, Urine RBC 0 SEEN, Urine WBC 0-5 SEEN, Ur Squamous Epith Cells 0-5 SEEN, Urine Bacteria 0 SEEN, Hyaline Casts 0-5 SEEN, Urine Mucus 2+ 04/19/19 18:15: WBC 21.2 H, RBC 5.36, Hgb 14.1, Hct 43.9, MCV 81.9, MCH 26.3 L, MCHC 32.1, RDW Std Deviation 40.1, RDW Coeff of Ferny 13.6, Plt Count 257, MPV 10.9, Immature Gran % (Auto) 0.800, Neut % (Auto) 88.6 H, Lymph % (Auto) 3.8 L, [place] % (Auto) 6.7, Eos % (Auto) 0.0, Baso % (Auto) 0.1, Absolute Neuts (auto) 18.8 H, Absolute Lymphs (auto) 0.81 L, Nucleated RBC % 0, Platelet Estimate ADEQUATE, RBC Morphology N CHROM, Anisocytosis RARE Clinical Impression(s) from Imaging Studies Abdomen/Pelvis CT 04/19/19 17:37 IMPRESSION: 1. Acute cholecystitis. The patient is currently being evaluated in the emergency room. 2. Colonic diverticulosis. Electronically Signed: Torito Matute MD at 19:09 EST , Service support , Chest X-Ray 04/19/19 19:55 IMPRESSION: Normal x-ray examination of the chest. Electronically Signed: Torito Matute MD at 20:11 EST , Service support , Assessment/Plan All Active Problems Cholecystitis (Acute) SOB (shortness of breath) (Acute) 1. Acute cholecystitis * Patient able to engage in greater than 4 METS of activity. Patient is medically cleared to proceed with surgery. * Will continue with analgesia as well as antiemetics. * Will be n.p.o. * Continue with ciprofloxacin and metronidazole for now. Consider discontinuation after surgery unless other indications to continue the antibiotics. * Dr. Hubbard aware and currently evaluating the patient. 2. Diabetes mellitus type 2 * Large doses of basal and prandial insulin * Since he is going to be n.p.o., will hold off on his prandial insulin and cut back his basal from 1 50-50. His blood sugars not terribly elevated at this time number concern for hypoglycemia if we give him just even a half dose of what he normally takes. * He will be on a sliding scale for now 3. Schizoaffective disorder * Patient is on numerous psychiatric medications. Plan is to continue with all those. * Currently, the patient is not manic and is very appropriate at this time. 4. 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 * Accelerated currently likely component of his abdominal pain and distress * Continue with his home medications and monitor. 5. VTE prophylaxis: Moderate risk. We will initiate enoxaparin on the , if patient is still here. Code Visit Inpatient E&M: 68952 Init Hosp L3
--- NOTE | 2019-04-19 20:25 | CON.PCM_ITS ---
Reason for Consult Date of Consultation: 04/19/19 History of Present Illness: he patient is a 33 M with upper abdominal pain for 2 days. Associate with nausea vomiting. He never had this before. Patient has a history of schizophrenia. His history is limited as he speaks in short sentences, so much of his history was obtained from prior records and from his PCP. He was seen in the ED yesterday. Diagnosed with nausea and vomiting. He was treated with antiemetics and Bentyl. His pain was worse. He saw his PCP today and was referred to the ED for continued symptoms. He denies fevers, jaundice. Denies any history of abdominal surgery. He has a history of coronary disease, but cannot provide any further details. His records indicate a history of asthma, hypertension, diabetes, chronic kidney disease, sleep apnea, schizophrenia, seizures. He had history of dental surgery and jaw surgery. He does not take blood thinners. CT scan of the abdomen was read as: The gallbladder wall is moderately thickened and edematous and mild to moderate pericholecystic inflammatory stranding is present compatible with acute cystitis. No visualized radiopaque stones of the gallbladder or the CBD on this study. Past Medical History Past Medical History (Chronic Problems): Chronic Problems (Last Updated 04/19/19 @ 20:24 by Tito Degroot DO) Super-super obese (Chronic) HTN (hypertension) (Chronic) Asthma (Chronic) With severe insulin resistance Seizure (Chronic) Depression (Chronic) Medical History: Medical History (Last Reviewed 04/19/19 @ 20:27 by Todd Hubbard MD) DM2 (diabetes mellitus, type 2) E11.9 Schizoaffective disorder F25.9 HTN (hypertension) I10 Allergies hydrocodone bitartrate [From Vicodin] Allergy (Verified 04/19/19 17:06) Hives strawberry Allergy (Verified 04/19/19 17:06) Hives acetaminophen Adverse Reaction (Verified 04/19/19 17:06) Nausea/hives baclofen Adverse Reaction (Verified 04/19/19 17:06) IT MAKES HIM LIGHTHEADED AND SICK lactose Adverse Reaction (Verified 04/19/19 17:06) Nausea Penicillins Adverse Reaction (Verified 04/19/19 17:06) Nausea COCONUT Allergy (Uncoded 04/19/19 17:06) Hives Home Medications: Ambulatory Orders Medication Instructions Recorded Albuterol IH (ProAir) [Proair Hfa] 2 puff INHALATION Q6H PRN PRN 10/22/14 Cholecalciferol (VIT D3) [Vitamin 50,000 unit PO WE 10/22/14 D3] Divalproex Sodium [Depakote] 500 mg PO QHS 10/22/14 metFORMIN HCl [Glucophage] 1,000 mg PO BIDCM 10/22/14 Lisinopril [Zestril] 20 mg PO DAILY 03/06/15 Insulin Aspart [Novolog Flexpen] 50 units SC TIDCM 11/12/15 Duloxetine Hcl [Cymbalta] 30 mg PO DAILY 02/29/16 Triamcinolone 0.025% Cream 1 applic TOPICAL TID 02/29/16 [Kenalog] Insulin Degludec [Tresiba 150 unit SQ DAILY 09/10/17 Flextouch U-200] Nadolol 40 mg PO DAILY 09/10/17 Diclofenac Sodium [Voltaren] 1 applic TP 4X/DAY 01/11/18 Doxepin HCl [Sinequan] 25 - 50 mg PO PRN PRN 01/11/18 Fluoxetine [Prozac] 40 mg PO DAILY 01/11/18 Nortriptyline HCl 10 mg PO QHS 01/11/18 Nystatin [Mycostatin] 1 applic TOPICAL 4X/DAY 01/11/18 Prochlorperazine Maleate 10 mg PO Q8H PRN PRN 01/11/18 [Compazine] Risperidone [Risperdal] 1 mg PO BREAKFAST 01/11/18 Risperidone [Risperdal] 2 mg PO QHS 01/11/18 Tizanidine HCl [Zanaflex] 4 mg PO 4X/DAY 01/11/18 Mometasone/Formoterol [Dulera 200 2 puff IH BID 02/17/18 Mcg/5 Mcg Inhaler] Verapamil HCl 40 mg PO DAILY 02/24/18 Gabapentin [Neurontin] 100 mg PO TID #42 cap 11/27/18 Ondansetron [Zofran Odt] 4 mg PO Q6H PRN PRN #10 tab 03/11/19 Prednisone [Deltasone] 40 mg PO DAILY #10 tab 03/11/19 Dicyclomine HCl [Bentyl] 20 mg PO TIDAC #20 cap 04/18/19 proMETHazine tablet [Phenergan] 25 mg PO Q6H PRN PRN #10 tab 04/18/19 Surgical History: tonsillectomy, - Smoking Status: Former smoker Alcohol: None - *Family History Paternal History Items: Unknown Maternal History Items: Unknown Review of Systems Constitutional: Reports: Anorexia. Denies: Chills, Fever Cardiovascular: Denies: Chest Pain, Chest Pressure, Chest Tightness, Palpitations Respiratory: Denies: Cough, Hemoptysis, Shortness of breath at rest, Shortness of breath upon exertion, Wheezing Gastrointestinal: Reports: Abdominal Pain, Nausea, Vomiting. Denies: Constipation, Diarrhea, Melena Genitourinary: Denies: Dysuria, Frequency, Hematuria, Urgency Musculoskeletal: Denies: Joint Pain Patient Problems: Active and Suspected Problems (Last Updated 04/19/19 @ 20:24 by Tito Degroot DO) Cholecystitis (Acute) - Physical Exam Vitals/I&O's: Vital Signs Temp Pulse Resp BP Pulse Ox 99.0 F 89 18 189/104 H 100 04/19/19 18:59 04/19/19 18:59 04/19/19 18:59 04/19/19 18:59 04/19/19 18:59 Oxygen Delivery Method Room Air Weight: 220 lb Body Mass Index (BMI) 36.6 Finger Stick Blood Glucose 143 Intake and Output for Last 24 Hours 04/17/19 04/18/19 04/19/19 23:59 23:59 23:59 Intake Total 1000 / 1000 Balance 1000 / 1000 General: Alert, Oriented x3, Cooperative HEENT: Atraumatic, PERRLA, EOMI, Normocephalic Oral: Moist Mucosa Neck: Supple, No JVD Lungs: Clear to auscultation Cardiovascular: Regular rate, Regular Rhythm, No murmurs Abdomen: Soft, Obese, Guarding, Tender - His tenderness is most severe in the right upper quadrant. Extremities: No clubbing, No cyanosis, No edema Laboratory Results 04/19/19 17:51: Sodium 133 L, Potassium 3.7, Chloride 101, Carbon Dioxide 26.0, Anion Gap 6, BUN 10, Creatinine 0.94, Estim Creat Clear Calc 95.41, Est GFR (MDRD) Af Amer 117, Est GFR (MDRD) Non-Af 96, BUN/Creatinine Ratio 10.6, Glucose 156 H, Calcium 9.4, Total Bilirubin 1.00, AST 31, ALT 21, Alkaline Phosphatase 87, Total Protein 8.7 H, Albumin 3.4, Globulin 5.3 H, Albumin/Globulin Ratio 0.6 L, Lipase 90 04/19/19 17:59: Urine Color Michelle, Urine Clarity Clear, Urine pH 5.0, Ur Specific [place] 1.025, Urine Protein 100 H, Urine Glucose (UA) 50 H, Urine Ketones 5 H, Urine Occult Blood Negative, Urine Nitrite Negative, Urine Bilirubin 1 H, Urine Urobilinogen 4 H, Ur Leukocyte Esterase 25 H, Urine RBC 0 SEEN, Urine WBC 0-5 SEEN, Ur Squamous Epith Cells 0-5 SEEN, Urine Bacteria 0 SEEN, Hyaline Casts 0-5 SEEN, Urine Mucus 2+ 04/19/19 18:15: WBC 21.2 H, RBC 5.36, Hgb 14.1, Hct 43.9, MCV 81.9, MCH 26.3 L, MCHC 32.1, RDW Std Deviation 40.1, RDW Coeff of Ferny 13.6, Plt Count 257, MPV 10.9, Immature Gran % (Auto) 0.800, Neut % (Auto) 88.6 H, Lymph % (Auto) 3.8 L, [place] % (Auto) 6.7, Eos % (Auto) 0.0, Baso % (Auto) 0.1, Absolute Neuts (auto) 18.8 H, Absolute Lymphs (auto) 0.81 L, Nucleated RBC % 0, Platelet Estimate ADEQUATE, RBC Morphology N CHROM, Anisocytosis RARE Assessment/Plan All Active Problems (Last Updated 04/19/19 @ 20:24 by Tito Degroot DO) SOB (shortness of breath) (Acute) Cholecystitis (Acute) My plan is to take him to surgery tomorrow perform a laparoscopic cholecystectomy on him. He has been evaluated by medicine who has cleared him for surgery. He had a reported history of [place] but nothing is ever been documented in our chart here and he really does not have any history himself of having an [place] nevertheless medicine will make sure that this is good for his surgery. Risk benefits to include bleeding infection and possible need to do this case in an open fashion. He also understands that there might be a drain placed he understands injury to surrounding structures possibly the common bile duct or other structures in the area is a possibility. I explained the surgery to him in very simple terms all of his questions asked were answered and he is willing to proceed.
[2019-04-19 20:30] VITALS: BMI 36.7
[2019-04-19 20:40] VITALS: BMI 36.8
[2019-04-19 21:05] VITALS: BP 170/99; PULSE 102; RESP 16; TEMP 37.9; O2SAT 96
[2019-04-19] MEDS: 0.9% Normal Saline 1,000 ML 125 ML IV (21:34)
[2019-04-19] MEDS: Lisinopril 20 MG Tablet PO (22:43)
[2019-04-19] MEDS: Nortriptyline 10 MG Capsule PO (22:46)
[2019-04-19] MEDS: Divalproex Sodium 250 MG Tablet 500 MG PO (22:47)
[2019-04-19] MEDS: Gabapentin 100 MG Capsule PO (22:47)
[2019-04-19] MEDS: RisperiDONE 2 MG Tablet PO (22:48)
[2019-04-19] MEDS: tiZANidine HCl 2 MG Tablet 4 MG PO (22:57)
[2019-04-20] VITALS (17 sets, daily range): BP systolic 105–163; BP diastolic 61–88; PULSE 73–116; RESP 12–35; TEMP 36.8–38.1; O2SAT 92–116; BMI 36.7
--- NOTE | 2019-04-20 | GALL_PTH ---
PATIENT: CHRISTINE HART LOC: MS3 U#:[id number] AGE/SX: 33/M ROOM: MS313 RE04/19/[address]: Dr. Magan Oviedo MD : [id number] BED: 1 DIS: 04/22/2019 SPEC #: [id number] RECD: 04/22/19 07:45 STATUS: KANA REQ #: [id number] BENJAMÍN: 04/20/19 00:[address]: Todd Hubbard DEPT: SURGICAL PATHOLOGY RECD BY: Rufino Daley ENTERED: 04/22/19 10:02 SP TYPE: SUBHA SPAIN DR: MD Dr. Tito Amaya, DO Dr. Ranjit Azar, Tissues: Gallbladder, NOS Procedures: Surgery Specimen Level III HEADER OPERATION: Laparoscopic, cholecystectomy PRE-OP DIAGNOSIS: Acute cholecystitis TISSUE SUBMITTED: Gallbladder MICROSCOPIC DIAGNOSIS Gallbladder, cholecystectomy: Acute and chronic cholecystitis with denudation of mucosa. Cholelithiasis. AM:denice 04/23/19 MICROSCOPIC DESCRIPTION Slides are reviewed. GROSS DESCRIPTION Received is one container labeled with the patient's name and designated gallbladder. The specimen consists of a gallbladder measuring 9 cm in length and 4 cm in diameter. The external surface is pink-canales, smooth and glistening for the most part. Focally it is granular, hemorrhagic and contains cautery artifact. The gallbladder contains green-yellow mucoid bile and multiple black and brown stones measuring in aggregate 2.5 x 2 x 1 cm and 0.1 in greatest dimension. The mucosa is bile-stained and without any mass lesions. The gallbladder wall measures up to 0.3 cm in thickness. Physician Non Invasive Cardiologist sections from the gallbladder and the cystic duct are submitted in one cassette. / SJ:denice 04/22/19 TC:2 CPT: 88526
[2019-04-20 00:06] LABS: Bedside Glucose 128 mg/dL (70-110)
[2019-04-20] MEDS: 0.9% Normal Saline 1,000 ML 125 ML IV (04:18)
[2019-04-20] MEDS: metroNIDAZOLE 500 MG/100 ML BAG 100 MG IV ×2 (06:03→14:24)
[2019-04-20] MEDS: Gabapentin 100 MG Capsule PO ×2 (06:10→22:09)
[2019-04-20 06:20] LABS: Bedside Glucose 125 mg/dL (70-110)
[2019-04-20 06:55] LABS: Absolute Lymphocyte Count 1.24 X10^3/uL (0.83-4.51); Absolute Neutrophil Count 15.2 X10^3/uL (2.0-7.7); Basophil# 0.02 X10^3/uL; Basophil% 0.1 % (0-1); Hematocrit 35.5 % (40-54); Hemoglobin 11.3 g/dL (13.0-16.5); Lymphocyte # 1.24 X10^3/ul (4.0); Lymphocyte % 6.9 % (19-41); Mean Corp Hgb Conc 31.8 g/dL (32-36); Mean Corpuscular Volume 81.8 fL (80-94); Mean Platelet Vol. 11.2 fl (6.2-12.0); Monocyte% 7.8 % (0-10); NRBC Flagged by Analyzer 0 % (0-5); Neutrophil # 15.15 X10^3/uL (2.7-7.7); Neutrophil % 84.5 % (47-70); POSITIVE MORPHOLOGY YES; Platelet Count 211 K/mm3 (150-450); RBC Distribution Width CV 13.5 % (11.6-14.6); RBC Distribution Width SD 40.1 fl (35.1-43.9); Red Blood Count 4.34 M/mm3 (4.6-6.2); White Blood Count 17.9 K/mm3 (4.4-11.0)
[2019-04-20 07:03] LABS: Differential Indicated SCAN CRITERIA MET
[2019-04-20 07:20] LABS: ALB/GLOB Ratio 0.6 RATIO (0.9-2.4); AST(SGOT) 91 U/L (15-37); Alanine Aminotransfer ALT/SGPT 77 U/L (16-61); Albumin, Serum 2.7 g/dL (3.2-5.0); Alkaline Phosphatase 109 U/L (45-117); Anion Gap 7 (5-15); BUN 10 mg/dL (7-18); BUN/Creat Ratio 10.3 RATIO (10-20); Calcium,Total 8.8 mg/dL (8.5-10.1); Chloride 107 mmol/L (98-107); Creatinine, Serum 0.97 mg/dL (0.70-1.30); EST Glomerular Filtration Rate 94 mL/min (>60); Est Glom Filt Rate - Afr Amer 113 mL/min (>60); Estimated Creatinine Clearance 92.46 ml/min; Globulin 4.7 g/dL (2.2-4.2); Glucose 116 mg/dL (74-106); Potassium 4.3 mmol/L (3.5-5.1); Protein, Total 7.4 g/dL (6.4-8.2); Sodium Level 138 mmol/L (136-145)
[2019-04-20] MEDS: RisperiDONE 1 MG Tablet PO (09:11)
--- NOTE | 2019-04-20 09:25 | PCM.PN.HOSP ---
Patient Problems: Active and Suspected Problems (Last Reviewed 04/19/19 @ 20:27 by Todd Hubbard MD) Cholecystitis (Acute) Subjective: Still with pain, plan for surgery this morning. Vitals/I&O's: Vital Signs Temp Pulse Resp BP Pulse Ox 99.9 F H 100 18 126/72 H 98 04/20/19 09:21 04/20/19 09:21 04/20/19 09:21 04/20/19 09:21 04/20/19 09:21 Oxygen Delivery Method Room Air Weight: 220 lb 14.4 oz Body Mass Index (BMI) 36.7 Finger Stick Blood Glucose 143 Intake and Output for Last 24 Hours 04/18/19 04/19/19 04/20/19 23:59 23:59 23:59 Intake Total 1300 / 1300 1162.50 / 1162.50 Output Total 150 / 150 375 / 375 Balance 1150 / 1150 787.50 / 787.50 General: Alert, Cooperative, - - Uncomfortable HEENT: Atraumatic, PERRLA, EOMI, Normocephalic Oral: Moist Mucosa Neck: Supple, No JVD Lungs: Clear to auscultation, Normal air movement, No rhonchi, No wheeze, No rales Cardiovascular: Regular rate, Regular Rhythm, Normal S1, Normal S2, No murmurs Abdomen: Soft, Non-Distended, No Hepato-splenomegaly, Tender - Right upper quadrant Extremities: No edema, Capillary Refill Less than 3 Seconds Skin: No rashes, No breakdown Neurological: Neuro grossly intact, Sensory exam intact to light touch and pain Psych/Mental Status: Flat Affect Laboratory Results 04/19/19 17:51: Sodium 133 L, Potassium 3.7, Chloride 101, Carbon Dioxide 26.0, Anion Gap 6, BUN 10, Creatinine 0.94, Estim Creat Clear Calc 95.41, Est GFR (MDRD) Af Amer 117, Est GFR (MDRD) Non-Af 96, BUN/Creatinine Ratio 10.6, Glucose 156 H, Calcium 9.4, Total Bilirubin 1.00, AST 31, ALT 21, Alkaline Phosphatase 87, Total Protein 8.7 H, Albumin 3.4, Globulin 5.3 H, Albumin/Globulin Ratio 0.6 L, Lipase 90 04/19/19 17:59: Urine Color Michelle, Urine Clarity Clear, Urine pH 5.0, Ur Specific [place] 1.025, Urine Protein 100 H, Urine Glucose (UA) 50 H, Urine Ketones 5 H, Urine Occult Blood Negative, Urine Nitrite Negative, Urine Bilirubin 1 H, Urine Urobilinogen 4 H, Ur Leukocyte Esterase 25 H, Urine RBC 0 SEEN, Urine WBC 0-5 SEEN, Ur Squamous Epith Cells 0-5 SEEN, Urine Bacteria 0 SEEN, Hyaline Casts 0-5 SEEN, Urine Mucus 2+ 04/19/19 18:15: WBC 21.2 H, RBC 5.36, Hgb 14.1, Hct 43.9, MCV 81.9, MCH 26.3 L, MCHC 32.1, RDW Std Deviation 40.1, RDW Coeff of Ferny 13.6, Plt Count 257, MPV 10.9, Immature Gran % (Auto) 0.800, Neut % (Auto) 88.6 H, Lymph % (Auto) 3.8 L, [place] % (Auto) 6.7, Eos % (Auto) 0.0, Baso % (Auto) 0.1, Absolute Neuts (auto) 18.8 H, Absolute Lymphs (auto) 0.81 L, Nucleated RBC % 0, Platelet Estimate ADEQUATE, RBC Morphology N CHROM, Anisocytosis RARE 04/19/19 23:59: POC Glucose 128 H 04/20/19 05:00: WBC 17.9 H, RBC 4.34 L, Hgb 11.3 L, Hct 35.5 L, MCV 81.8, MCH 26.0 L, MCHC 31.8 L, RDW Std Deviation 40.1, RDW Coeff of Ferny 13.5, Plt Count 211, MPV 11.2, Immature Gran % (Auto) 0.700, Neut % (Auto) 84.5 H, Lymph % (Auto) 6.9 L, [place] % (Auto) 7.8, Eos % (Auto) 0.0, Baso % (Auto) 0.1, Absolute Neuts (auto) 15.2 H, Absolute Lymphs (auto) 1.24, Nucleated RBC % 0 04/20/19 05:00: Sodium 138, Potassium 4.3, Chloride 107, Carbon Dioxide 24.0, Anion Gap 7, BUN 10, Creatinine 0.97, Estim Creat Clear Calc 92.46, Est GFR (MDRD) Af Amer 113, Est GFR (MDRD) Non-Af 94, BUN/Creatinine Ratio 10.3, Glucose 116 H, Calcium 8.8, Total Bilirubin 1.30 H, AST 91 H, ALT 77 H, Alkaline Phosphatase 109, Total Protein 7.4, Albumin 2.7 L, Globulin 4.7 H, Albumin/Globulin Ratio 0.6 L 04/20/19 05:00: Hemoglobin A1c 6.0 04/20/19 05:00: APTT 32.0 04/20/19 06:09: POC Glucose 125 H Current Medications Albuterol Sulfate (Ventolin Aerosols) 2.5 mg INHALATION Q4H PRN PRN PRN Reason: SOB &/OR WHEEZING Albuterol Sulfate (Ventolin Aerosols) 2.5 mg INHALATION Q6HWA.RT VAN Budesonide (Pulmicort Aerosol) 0.5 mg INHALATION Q12H.RT VAN Dextrose (D50w Syringe) 0 gm IV X1 PRN; Protocol PRN Reason: Hypoglycemia Diclofenac Sodium (Voltaren) 1 applic TP 4X/DAY PRN PRN Divalproex Sodium (Depakote) 500 mg PO QHS [facility] Last Admin: 04/19/19 22:47 Dose: 500 mg Documented by: Doxepin HCl (Sinequan) 25 mg PO QHS PRN PRN PRN Reason: INSOMNIA Duloxetine HCl (Cymbalta) 30 mg PO DAILY VAN Enoxaparin Sodium (Lovenox) 40 mg SC DAILY@1000 VAN Fluoxetine HCl (Prozac) 40 mg PO DAILY [facility] Gabapentin (Neurontin) 100 mg PO TID [facility] Last Admin: 04/20/19 06:10 Dose: 100 mg Documented by: Glucagon () 1 mg IM .X1 PRN PRN Reason: Hypoglycemia Sodium Chloride () 250 mls @ 15 mls/hr IV .[id number] PRN PRN Reason: Saline Flush Sodium Chloride () 1,000 mls @ 125 mls/hr IV .Q8H [facility] Last Infusion: 04/20/19 07:03 Dose: 125 mls/hr Documented by: Ciprofloxacin (Cipro) 400 mg in 200 mls @ 200 mls/hr IV Q12 VAN Metronidazole (Flagyl) 500 mg in 100 mls @ 100 mls/hr IV Q8 [facility] Last Infusion: 04/20/19 07:03 Dose: Infused Documented by: Insulin Glargine (Lantus (Bkc)) 50 units SC DAILY [facility] Insulin Human Lispro (Humalog Kwikpen (Bkc)) 0 unit SC TIDAC [facility]; Protocol Last Admin: 04/20/19 06:11 Dose: Not Given Documented by: Lisinopril (Zestril) 20 mg PO DAILY [facility] Last Admin: 04/19/19 22:43 Dose: 20 mg Documented by: Melatonin (Melatonin) 3 mg PO QHS PRN PRN PRN Reason: INSOMNIA Morphine Sulfate () 4 mg IV Q3H PRN PRN PRN Reason: Pain Score 6-10/10 Nadolol (Corgard) 40 mg PO DAILY [facility] Nortriptyline HCl (Pamelor) 10 mg PO QHS [facility] Last Admin: 04/19/19 22:46 Dose: 10 mg Documented by: Ondansetron HCl (Zofran) 4 mg IV Q8H PRN PRN PRN Reason: NAUSEA/VOMITING Prochlorperazine Edisylate (Compazine Iv) 5 mg IV Q4H PRN PRN PRN Reason: Breakthrough nausea/vomiting Risperidone (Risperdal) 1 mg PO BREAKFAST [facility] Last Admin: 04/20/19 09:11 Dose: 1 mg Documented by: Risperidone (Risperdal) 2 mg PO QHS [facility] Last Admin: 04/19/19 22:48 Dose: 2 mg Documented by: Sodium Chloride () 10 - 40 ml IV UD PRN PRN Reason: SALINE FLUSH Tizanidine HCl (Zanaflex) 4 mg PO 4X/DAY [facility] Last Admin: 04/19/19 22:57 Dose: 4 mg Documented by: Verapamil HCl (Calan) 40 mg PO DAILY [facility] STROKE Vital Signs/Narrative: Vital Signs Temp Pulse Resp BP Pulse Ox 04/20/19 09:21 99.9 F H 100 18 126/72 H 98 04/20/19 09:14 99.9 F H 100 18 126/72 H 98 Medical Necessity - Tobacco Use Smoking Status: Former smoker Assessment/Plan All Active Problems (Last Reviewed 04/19/19 @ 20:27 by Todd Hubbard MD) SOB (shortness of breath) (Acute) Cholecystitis (Acute) 1. Acute cholecystitis -Continue with IV fluids as well as antibiotics, can likely discontinue after surgery -Plan for lap kenn this morning -N.p.o. 2. DM 2 -Once he starts eating again will resume his home insulin regimen otherwise we will continue with Accu-Cheks -Continue with sliding scale insulin, he is on Tresiba 150 units daily will decrease him to Lantus 50 3. HTN -We will continue with his home medications and monitor -His elevated blood pressures here are likely secondary to abdominal pain 4. Schizoaffective disorder -Appears to be stable -We will continue with his home psych meds DVT: Lovenox Code Visit Inpatient E&M: 86937 Subs Hosp L2
[2019-04-20] MEDS: Ciprofloxacin 400 MG/200 ML BAG 200 MG IV (09:38)
[2019-04-20] MEDS: 0.9% Saline Lock 10 ML Syringe IV ×2 (10:03→10:31)
--- NOTE | 2019-04-20 10:31 | NURSING ---
THIS NURSE ATTEMPTED TO RE-START IV, ATTEMPTED X2 AND UNSUCCESSFUL. SAHIL BATRESPRODUCT SAFETY TECHNICAL ASSISTANT MADE AWARE.
--- NOTE | 2019-04-20 10:49 | CM.UR ---
ALISA LÓPEZ assessment: Face to Face with patient and for initial transition planning/care coordination assessment. ALISA LÓPEZ introduced self and role at [facility], pt voices understanding and consents to assessment at this time. Pt is lying in bed and RN is trying to place IV so answers most of questions. Care providers, pharmacy, and demographics verified at this time. PCP: Doe Specialists: None Preferred Pharmacy: [facility] Insurance: [employer] Prescription Benefit: [employer]. No copays for medications. Living Will/HPOA: States has one but haven't brought it in. States Taina Asif, is HPOA. Instructed to bring in copy. LNOK: , Taina. Living Arrangements: 2 story home with and daughter. ADLs: Independent with all ADLs. Transportation: Pt states drives self and states no transportation concerns at this time. DME: Walker and CPAP. Prefers [facility] HHC: Had in past when had PICC line at home. Thinks they came from [facility]. SNF: None. Patient Goal: Home Plan: Home, no needs identified. Yvette Jordan RN, CCM.
[2019-04-20] MEDS: Albuterol 2.5 MG/3 ML VIAL.NEB. INHALATION ×2 (11:47→19:05)
[2019-04-20 11:50] LABS: Bedside Glucose 127 mg/dL (70-110)
[2019-04-20] MEDS: Nadolol 40 MG Tablet PO (12:42)
--- NOTE | 2019-04-20 12:59 | NURSING ---
report called to surgery
--- NOTE | 2019-04-20 14:18 | OP.PCM_ITS ---
Problem List (1) Acute cholecystitis Status: Acute (2) Acute gangrenous cholecystitis Status: Acute Report of Operation Date of Procedure: 04/20/19 Pre-Operative Diagnosis: Acute cholecystitis with cholelithiasis Post-Operative Diagnosis: Acute gangrenous cholecystitis Surgery/Procedure Performed:: Laparoscopic cholecystectomy Type of Anesthesia:: General Anesthesiologist: Shamir Bella Specimen's removed: Gallbladder Drains: #15 Round Ayaan-Mcdaniels Estimated Blood Loss (mL): <25 cc Fluids Replaced: 1 L lr Description of Procedure: Patient was brought into the operating room placed in the supine position under excellent general trach intubation the abdomen was sterilely prepped and draped in the usual fashion. Local was injected supraumbilically curvilinear incision was made dissection was carried down to the fascia the fascia grasped with [place] varies needle was placed inside the abdomen the abdomen was insufflated to 15 torr. A 10/12 trocar was placed without difficulty. Patient was placed in the head up and rotated to the left. Subxiphoid #5 trochars placed inferior to this another #5 trocar was placed laterally a #5 trocar was placed. All these were placed under direct visualization without injury to underlying structures. Patient was placed in the head up and rotated to the left position. I aspirated out the gallbladder I sent the fluid for culture and sensitivity. Grabbed the fundus of the gallbladder and retracted in a cephalad direction and took a significant amount of adhesions off of the gallbladder wall. I was able to dissect down to the cystic duct and cystic artery but at this point I made a decision that it was best that I do a dome down approach to identify both the cystic duct and cystic artery. The gallbladder was so that there was very little bleeding from the liver bed at all. As it came down to the cystic artery placed hemoclips proximally distally and ligated the artery. Identified the cystic duct placed hemoclips proximally distally and ligated the duct. Gallbladder was placed in a specimen bag delivered through the umbilical port without difficulty. I reinspected the liver bed good hemostasis was noted I irrigated and placed a 15 round Ayaan-Mcdaniels drain through the lateral 5 trocar site. I sutured the drain in with a 3-0 nylon. I remove the trochars under direct visualization good hemostasis was noted to close the fascia the umbilical port with a [id number] stitch of 0 Vicryl skin incisions were closed with some particular stitches of 4-0 Monocryl Steri-Strips were applied sterile dressings were applied the patient tolerated the procedure well - Admit VTE Documentation VTE Present on Admission: No VTE Mechan Device Prophylaxis: SCD's VTE Pharm Prophylaxis ordered?: No Reason prophylaxis not ordered:: Treatment Not Indicated
[2019-04-20] MEDS: Lactated Ringers 1,000 ML 100 ML IV (15:20)
[2019-04-20] MEDS: Bupivacaine Mpf 0.5% 30 ML VIAL (15:25)
[2019-04-20 16:06] LABS: Bedside Glucose 120 mg/dL (70-110)
--- NOTE | 2019-04-20 16:28 | NURSING ---
Back from OR. Sleepy. Continous spo2 applied at this time.
--- NOTE | 2019-04-20 16:40 | NURSING ---
two IVF orders and this nurse called Dr. Hubbard. Dr. Hubbard wanted LR at 100ml/hr.
[2019-04-20] MEDS: 0.9% Normal Saline 1,000 ML 100 ML IV (17:57)
[2019-04-20] MEDS: Budesonide Respules 0.5 MG/2 ML AMPUL.NEB. INHALATION (19:05)
[2019-04-20 21:15] LABS: Bedside Glucose 112 mg/dL (70-110)
--- NOTE | 2019-04-20 21:45 | CPS ---
pt unable to tolerate BiPAP, pt placed on 2 lpm O2 via nasal cannula.
[2019-04-20] MEDS: Nortriptyline 10 MG Capsule PO (22:08)
[2019-04-20] MEDS: Divalproex Sodium 250 MG Tablet 500 MG PO (22:09)
[2019-04-20] MEDS: RisperiDONE 2 MG Tablet PO (22:09)
[2019-04-21] VITALS (10 sets, daily range): BP systolic 131–168; BP diastolic 79–99; PULSE 61–88; RESP 15–20; TEMP 36.6–37; O2SAT 2–99
[2019-04-21] MEDS: 0.9% Normal Saline 1,000 ML 100 ML IV ×3 (03:07→23:01)
[2019-04-21] MEDS: Gabapentin 100 MG Capsule PO ×3 (06:23→21:50)
[2019-04-21 06:31] LABS: Absolute Lymphocyte Count 1.34 X10^3/uL (0.83-4.51); Absolute Neutrophil Count 10.4 X10^3/uL (2.0-7.7); Basophil# 0.02 X10^3/uL; Basophil% 0.2 % (0-1); Hematocrit 34.2 % (40-54); Hemoglobin 10.8 g/dL (13.0-16.5); Lymphocyte # 1.34 X10^3/ul (4.0); Lymphocyte % 10.4 % (19-41); Mean Corp Hgb Conc 31.6 g/dL (32-36); Mean Corpuscular Volume 82.4 fL (80-94); Monocyte# 1.04 X10^3/uL; Monocyte% 8.1 % (0-10); NRBC Flagged by Analyzer 0 % (0-5); Neutrophil # 10.43 X10^3/uL (2.7-7.7); Neutrophil % 80.9 % (47-70); Platelet Count 202 K/mm3 (150-450); RBC Distribution Width CV 13.5 % (11.6-14.6); RBC Distribution Width SD 40.5 fl (35.1-43.9); Red Blood Count 4.15 M/mm3 (4.6-6.2); White Blood Count 12.9 K/mm3 (4.4-11.0)
[2019-04-21] MEDS: Budesonide Respules 0.5 MG/2 ML AMPUL.NEB. INHALATION ×2 (06:40→18:56)
[2019-04-21] MEDS: Albuterol 2.5 MG/3 ML VIAL.NEB. INHALATION ×3 (06:40→18:56)
[2019-04-21 06:55] LABS: Bedside Glucose 107 mg/dL (70-110)
[2019-04-21 06:57] LABS: ALB/GLOB Ratio 0.5 RATIO (0.9-2.4); AST(SGOT) 48 U/L (15-37); Alanine Aminotransfer ALT/SGPT 52 U/L (16-61); Albumin, Serum 2.3 g/dL (3.2-5.0); Alkaline Phosphatase 98 U/L (45-117); Anion Gap 6 (5-15); BUN 10 mg/dL (7-18); BUN/Creat Ratio 13.8 RATIO (10-20); Calcium,Total 8.1 mg/dL (8.5-10.1); Chloride 109 mmol/L (98-107); Creatinine, Serum 0.73 mg/dL (0.70-1.30); EST Glomerular Filtration Rate 130 mL/min (>60); Est Glom Filt Rate - Afr Amer 158 mL/min (>60); Estimated Creatinine Clearance 122.86 ml/min; Globulin 4.5 g/dL (2.2-4.2); Glucose 109 mg/dL (74-106); Potassium 3.5 mmol/L (3.5-5.1); Protein, Total 6.8 g/dL (6.4-8.2); Sodium Level 141 mmol/L (136-145)
[2019-04-21] MEDS: RisperiDONE 1 MG Tablet PO (08:39)
[2019-04-21] MEDS: Nadolol 40 MG Tablet PO (08:52)
[2019-04-21] MEDS: Lisinopril 20 MG Tablet PO (08:52)
[2019-04-21] MEDS: DULoxetine Hcl 30 MG Capsule PO (08:57)
--- NOTE | 2019-04-21 10:03 | PN_ITS ---
Patient Problems: Active and Suspected Problems (Last Reviewed 04/19/19 @ 20:27 by Todd Hubbard MD) Cholecystitis (Acute) Acute cholecystitis (Acute) Acute gangrenous cholecystitis (Acute) Subjective: Feeling better after surgery though he still has some abdominal pain around surgical sites. No flatus Vitals/I&O's: Vital Signs Temp Pulse Resp BP Pulse Ox 98.1 F 88 18 168/99 H 99 04/21/19 08:47 04/21/19 08:47 04/21/19 08:47 04/21/19 08:47 04/21/19 08:47 Oxygen Flow Rate (L/min) 2 Oxygen Delivery Method Room Air Weight: 220 lb 14.4 oz Body Mass Index (BMI) 36.7 Finger Stick Blood Glucose 120 Intake and Output for Last 24 Hours 04/19/19 04/20/19 04/21/19 23:59 23:59 23:59 Intake Total 1300 / 1300 2810.00 / 3010.00 1466.67 / 1466.67 Output Total 150 / 150 555 / 855 640 / 640 Balance 1150 / 1150 2255.00 / 2155.00 826.67 / 826.67 General: Alert, Cooperative, - - Uncomfortable HEENT: Atraumatic, PERRLA, EOMI, Normocephalic Oral: Moist Mucosa Neck: Supple, No JVD Lungs: Clear to auscultation, Normal air movement, No rhonchi, No wheeze, No rales Cardiovascular: Regular rate, Regular Rhythm, Normal S1, Normal S2, No murmurs Abdomen: Soft, Non-Distended, No Hepato-splenomegaly, Tender - Right upper quadrant Extremities: No edema, Capillary Refill Less than 3 Seconds Skin: No rashes, No breakdown, incisions are clean dry and intact Neurological: Neuro grossly intact, Sensory exam intact to light touch and pain Psych/Mental Status: Flat Affect Microbiology Past 72 Hours 04/20/19 15:37 Aspirate - Other Wound Culture - Preliminary No growth-Final to follow Laboratory Results 04/20/19 11:37: POC Glucose 127 H 04/20/19 16:00: POC Glucose 120 H 04/20/19 21:05: POC Glucose 112 H 04/21/19 05:40: WBC 12.9 H, RBC 4.15 L, Hgb 10.8 L, Hct 34.2 L, MCV 82.4, MCH 26.0 L, MCHC 31.6 L, RDW Std Deviation 40.5, RDW Coeff of Ferny 13.5, Plt Count 202, MPV 11.0, Immature Gran % (Auto) 0.400, Neut % (Auto) 80.9 H, Lymph % (Auto) 10.4 L, [place] % (Auto) 8.1, Eos % (Auto) 0.0, Baso % (Auto) 0.2, Absolute Neuts (auto) 10.4 H, Absolute Lymphs (auto) 1.34, Nucleated RBC % 0 04/21/19 05:40: Sodium 141, Potassium 3.5, Chloride 109 H, Carbon Dioxide 26.0, Anion Gap 6, BUN 10, Creatinine 0.73, Estim Creat Clear Calc 122.86, Est GFR (MDRD) Af Amer 158, Est GFR (MDRD) Non-Af 130, BUN/Creatinine Ratio 13.8, Glucose 109 H, Calcium 8.1 L, Total Bilirubin 0.90, AST 48 H, ALT 52, Alkaline Phosphatase 98, Total Protein 6.8, Albumin 2.3 L, Globulin 4.5 H, Albumin/Globu rubin Ratio 0.5 L 04/21/19 06:26: POC Glucose 107 Current Medications Albuterol Sulfate (Ventolin Aerosols) 2.5 mg INHALATION Q4H PRN PRN PRN Reason: SOB &/OR WHEEZING Albuterol Sulfate (Ventolin Aerosols) 2.5 mg INHALATION Q6HWA.RT [facility] Last Admin: 04/21/19 06:40 Dose: 2.5 mg Documented by: Budesonide (Pulmicort Aerosol) 0.5 mg INHALATION Q12H.RT [facility] Last Admin: 04/21/19 06:40 Dose: 0.5 mg Documented by: Dextrose (D50w Syringe) 0 gm IV X1 PRN; Protocol PRN Reason: Hypoglycemia Diclofenac Sodium (Voltaren) 1 applic TP 4X/DAY PRN PRN Divalproex Sodium (Depakote) 500 mg PO QHS [facility] Last Admin: 04/20/19 22:09 Dose: 500 mg Documented by: Doxepin HCl (Sinequan) 25 mg PO QHS PRN PRN PRN Reason: INSOMNIA Duloxetine HCl (Cymbalta) 30 mg PO DAILY [facility] Last Admin: 04/21/19 08:57 Dose: 30 mg Documented by: Enoxaparin Sodium (Lovenox) 40 mg SC DAILY@1000 VAN Fluoxetine HCl (Prozac) 40 mg PO DAILY [facility] Last Admin: 04/20/19 11:38 Dose: Not Given Documented by: Gabapentin (Neurontin) 100 mg PO TID [facility] Last Admin: 04/21/19 06:23 Dose: 100 mg Documented by: Glucagon () 1 mg IM .X1 PRN PRN Reason: Hypoglycemia Sodium Chloride () 250 mls @ 15 mls/hr IV .[id number] PRN PRN Reason: Saline Flush Meropenem 1 gm/ Sodium (Chloride) 120 mls @ 33 mls/hr IV Q8 [facility] Last Admin: 04/21/19 06:21 Dose: 33 mls/hr Documented by: Sodium Chloride () 1,000 mls @ 100 mls/hr IV .Q10H [facility] Last Admin: 04/21/19 03:07 Dose: 100 mls/hr Documented by: Insulin Glargine (Lantus (Bkc)) 50 units SC DAILY [facility] Last Admin: 04/20/19 10:43 Dose: Not Given Documented by: Insulin Human Lispro (Humalog Kwikpen (Bk)) 0 unit SC TIDAC [facility]; Protocol Last Admin: 04/21/19 06:28 Dose: Not Given Documented by: Lisinopril (Zestril) 20 mg PO DAILY [facility] Last Admin: 04/21/19 08:52 Dose: 20 mg Documented by: Melatonin (Melatonin) 3 mg PO QHS PRN PRN PRN Reason: INSOMNIA Morphine Sulfate () 4 mg IV Q3H PRN PRN PRN Reason: Pain Score 6-10/10 Nadolol (Corgard) 40 mg PO DAILY [facility] Last Admin: 04/21/19 08:52 Dose: 40 mg Documented by: Nortriptyline HCl (Pamelor) 10 mg PO QHS [facility] Last Admin: 04/20/19 22:08 Dose: 10 mg Documented by: Ondansetron HCl (Zofran) 4 mg IV Q8H PRN PRN PRN Reason: NAUSEA/VOMITING Prochlorperazine Edisylate (Compazine Iv) 5 mg IV Q4H PRN PRN PRN Reason: Breakthrough nausea/vomiting Risperidone (Risperdal) 1 mg PO BREAKFAST [facility] Last Admin: 04/21/19 08:39 Dose: 1 mg Documented by: Risperidone (Risperdal) 2 mg PO QHS [facility] Last Admin: 04/20/19 22:09 Dose: 2 mg Documented by: Sodium Chloride () 10 - 40 ml IV UD PRN PRN Reason: SALINE FLUSH Last Admin: 04/20/19 10:31 Dose: 10 ml Documented by: Tizanidine HCl (Zanaflex) 4 mg PO 4X/DAY [facility] Last Admin: 04/20/19 22:11 Dose: Not Given Documented by: Verapamil HCl (Calan) 40 mg PO DAILY [facility] Last Admin: 04/20/19 09:43 Dose: 40 mg Documented by: STROKE Vital Signs/Narrative: Vital Signs Temp Pulse Resp BP Pulse Ox 04/21/19 08:47 98.1 F 88 18 168/99 H 99 04/21/19 06:40 80 16 98 Medical Necessity - Tobacco Use Smoking Status: Former smoker Assessment/Plan All Active Problems (Last Reviewed 04/19/19 @ 20:27 by Todd Hubbard MD) SOB (shortness of breath) (Acute) Cholecystitis (Acute) Acute cholecystitis (Acute) Acute gangrenous cholecystitis (Acute) 1. Acute cholecystitis -Continue with IV fluids as well as antibiotics, can likely discontinue after surgery -Lap kenn 04/20/2019, extremely gangrenous and necrotic -Continue with meropenem, can likely DC tomorrow -Continue with clears 2. DM 2 -Once he starts eating again will resume his home insulin regimen otherwise we will continue with Accu-Cheks -Continue with sliding scale insulin, he is on Tresiba 150 units daily will decrease him to Lantus 50 3. HTN -We will continue with his home medications and monitor -His elevated blood pressures here are likely secondary to abdominal pain 4. Schizoaffective disorder -Appears to be stable -We will continue with his home psych meds DVT: Lovenox Code Visit Inpatient E&M: 77958 Subs Hosp L2
[2019-04-21] MEDS: tiZANidine HCl 2 MG Tablet 4 MG PO ×3 (10:24→21:49)
[2019-04-21] MEDS: Enoxaparin 40 MG/0.4 ML Syringe SC (10:24)
[2019-04-21] MEDS: FLUoxetine 20 MG Capsule 40 MG PO (10:25)
--- NOTE | 2019-04-21 10:49 | PCM.PN.SRG ---
Patient Problems: Active and Suspected Problems (Last Reviewed 04/19/19 @ 20:27 by Todd Hubbard MD) Cholecystitis (Acute) Acute cholecystitis (Acute) Acute gangrenous cholecystitis (Acute) Subjective: Patient does feel much better today. Incisional pain abdominal pain has improved Objective: Abdomen is soft dressings are dry - Physical Exam Vitals/I&O's: Vital Signs Temp Pulse Resp BP Pulse Ox 98.1 F 86 20 H 158/87 H 95 04/21/19 08:47 04/21/19 10:31 04/21/19 10:31 04/21/19 10:31 04/21/19 10:31 Oxygen Flow Rate (L/min) 2 Oxygen Delivery Method Room Air Weight: 220 lb 14.4 oz Body Mass Index (BMI) 36.7 Finger Stick Blood Glucose 120 Intake and Output for Last 24 Hours 04/19/19 04/20/19 04/21/19 23:59 23:59 23:59 Intake Total 1300 / 1300 2810.00 / 3010.00 1466.67 / 1466.67 Output Total 150 / 150 555 / 855 640 / 640 Balance 1150 / 1150 2255.00 / 2155.00 826.67 / 826.67 Microbiology Past 72 Hours 04/20/19 15:37 Aspirate - Other Gram Stain - Final 04/20/19 15:37 Aspirate - Other Wound Culture - Preliminary No growth-Final to follow Laboratory Results 04/20/19 11:37: POC Glucose 127 H 04/20/19 16:00: POC Glucose 120 H 04/20/19 21:05: POC Glucose 112 H 04/21/19 05:40: WBC 12.9 H, RBC 4.15 L, Hgb 10.8 L, Hct 34.2 L, MCV 82.4, MCH 26.0 L, MCHC 31.6 L, RDW Std Deviation 40.5, RDW Coeff of Ferny 13.5, Plt Count 202, MPV 11.0, Immature Gran % (Auto) 0.400, Neut % (Auto) 80.9 H, Lymph % (Auto) 10.4 L, [place] % (Auto) 8.1, Eos % (Auto) 0.0, Baso % (Auto) 0.2, Absolute Neuts (auto) 10.4 H, Absolute Lymphs (auto) 1.34, Nucleated RBC % 0 04/21/19 05:40: Sodium 141, Potassium 3.5, Chloride 109 H, Carbon Dioxide 26.0, Anion Gap 6, BUN 10, Creatinine 0.73, Estim Creat Clear Calc 122.86, Est GFR (MDRD) Af Amer 158, Est GFR (MDRD) Non-Af 130, BUN/Creatinine Ratio 13.8, Glucose 109 H, Calcium 8.1 L, Total Bilirubin 0.90, AST 48 H, ALT 52, Alkaline Phosphatase 98, Total Protein 6.8, Albumin 2.3 L, Globulin 4.5 H, Albumin/Globulin Ratio 0.5 L 04/21/19 06:26: POC Glucose 107 Current Medications Albuterol Sulfate (Ventolin Aerosols) 2.5 mg INHALATION Q4H PRN PRN PRN Reason: SOB &/OR WHEEZING Albuterol Sulfate (Ventolin Aerosols) 2.5 mg INHALATION Q6HWA.RT [facility] Last Admin: 04/21/19 06:40 Dose: 2.5 mg Documented by: Budesonide (Pulmicort Aerosol) 0.5 mg INHALATION Q12H.RT [facility] Last Admin: 04/21/19 06:40 Dose: 0.5 mg Documented by: Dextrose (D50w Syringe) 0 gm IV X1 PRN; Protocol PRN Reason: Hypoglycemia Diclofenac Sodium (Voltaren) 1 applic TP 4X/DAY PRN PRN Divalproex Sodium (Depakote) 500 mg PO QHS [facility] Last Admin: 04/20/19 22:09 Dose: 500 mg Documented by: Doxepin HCl (Sinequan) 25 mg PO QHS PRN PRN PRN Reason: INSOMNIA Duloxetine HCl (Cymbalta) 30 mg PO DAILY [facility] Last Admin: 04/21/19 08:57 Dose: 30 mg Documented by: Enoxaparin Sodium (Lovenox) 40 mg SC DAILY@1000 [facility] Last Admin: 04/21/19 10:24 Dose: 40 mg Documented by: Fluoxetine HCl (Prozac) 40 mg PO DAILY [facility] Last Admin: 04/21/19 10:25 Dose: 40 mg Documented by: Gabapentin (Neurontin) 100 mg PO TID [facility] Last Admin: 04/21/19 06:23 Dose: 100 mg Documented by: Glucagon () 1 mg IM .X1 PRN PRN Reason: Hypoglycemia Sodium Chloride () 250 mls @ 15 mls/hr IV .[id number] PRN PRN Reason: Saline Flush Meropenem 1 gm/ Sodium (Chloride) 120 mls @ 33 mls/hr IV Q8 [facility] Last Admin: 04/21/19 06:21 Dose: 33 mls/hr Documented by: Sodium Chloride () 1,000 mls @ 100 mls/hr IV .Q10H [facility] Last Admin: 04/21/19 03:07 Dose: 100 mls/hr Documented by: Insulin Glargine (Lantus ([facility])) 50 units SC DAILY [facility] Last Admin: 04/21/19 10:23 Dose: Not Given Documented by: Insulin Human Lispro (Humalog Kwikpen ([facility])) 0 unit SC TIDAC [facility]; Protocol Last Admin: 04/21/19 06:28 Dose: Not Given Documented by: Lisinopril (Zestril) 20 mg PO DAILY [facility] Last Admin: 04/21/19 08:52 Dose: 20 mg Documented by: Melatonin (Melatonin) 3 mg PO QHS PRN PRN PRN Reason: INSOMNIA Morphine Sulfate () 4 mg IV Q3H PRN PRN PRN Reason: Pain Score 6-10/10 Nadolol (Corgard) 40 mg PO DAILY [facility] Last Admin: 04/21/19 08:52 Dose: 40 mg Documented by: Nortriptyline HCl (Pamelor) 10 mg PO QHS [facility] Last Admin: 04/20/19 22:08 Dose: 10 mg Documented by: Ondansetron HCl (Zofran) 4 mg IV Q8H PRN PRN PRN Reason: NAUSEA/VOMITING Prochlorperazine Edisylate (Compazine Iv) 5 mg IV Q4H PRN PRN PRN Reason: Breakthrough nausea/vomiting Risperidone (Risperdal) 1 mg PO BREAKFAST [facility] Last Admin: 04/21/19 08:39 Dose: 1 mg Documented by: Risperidone (Risperdal) 2 mg PO QHS [facility] Last Admin: 04/20/19 22:09 Dose: 2 mg Documented by: Sodium Chloride () 10 - 40 ml IV UD PRN PRN Reason: SALINE FLUSH Last Admin: 04/20/19 10:31 Dose: 10 ml Documented by: Tizanidine HCl (Zanaflex) 4 mg PO 4X/DAY [facility] Last Admin: 04/21/19 10:24 Dose: 4 mg Documented by: Verapamil HCl (Calan) 40 mg PO DAILY [facility] Last Admin: 04/21/19 10:22 Dose: 40 mg Documented by: Medical Necessity - Tobacco Use Smoking Status: Former smoker Assessment/Plan All Active Problems (Last Reviewed 04/19/19 @ 20:27 by Todd Hubbard MD) SOB (shortness of breath) (Acute) Cholecystitis (Acute) Acute cholecystitis (Acute) Acute gangrenous cholecystitis (Acute) Postoperative day 1. Anticipate that he should be ready to be discharged tomorrow hopefully will noticed a precipitous drop in his white count today.
[2019-04-21 12:26] LABS: Bedside Glucose 102 mg/dL (70-110)
[2019-04-21 17:00] LABS: Bedside Glucose 128 mg/dL (70-110)
[2019-04-21] MEDS: RisperiDONE 2 MG Tablet PO (21:49)
[2019-04-21] MEDS: Nortriptyline 10 MG Capsule PO (21:50)
[2019-04-21] MEDS: Divalproex Sodium 250 MG Tablet 500 MG PO (21:50)
[2019-04-21] MEDS: Morphine 4 MG/ML Syringe 2 MG IV (23:11)
[2019-04-21] MEDS: 0.9% Saline Lock 10 ML Syringe IV (23:11)
[2019-04-21 23:41] LABS: Bedside Glucose 146 mg/dL (70-110)
[2019-04-22 05:45] VITALS: BP 154/108; PULSE 77; RESP 20; TEMP 36.7; O2SAT 100
[2019-04-22] MEDS: Gabapentin 100 MG Capsule PO ×2 (05:54→14:36)
[2019-04-22 06:10] LABS: Bedside Glucose 120 mg/dL (70-110)
[2019-04-22 06:44] VITALS: PULSE 79; RESP 18; O2SAT 96
[2019-04-22] MEDS: Albuterol 2.5 MG/3 ML VIAL.NEB. INHALATION (06:44)
[2019-04-22] MEDS: Budesonide Respules 0.5 MG/2 ML AMPUL.NEB. INHALATION (06:44)
--- NOTE | 2019-04-22 08:47 | DCINST_ITS ---
- Discharge Diagnoses Current Active Problems: Current Active and Chronic Problems (Last Reviewed 04/19/19 @ 20:27 by Todd Hubbard MD) Cholecystitis (Acute) Acute cholecystitis (Acute) Acute gangrenous cholecystitis (Acute) You will use the following diet at home:: Regular, Calorie/Carbohydrate Controlled (specify 1200, 1400, etc) - 1800 Your food should be the consistency of: Regular Your liquids should be the consistency of: Regular/Thin Discharge Activity: Return to Normal Activity Call your doctor if you observe: Fever of 101 or Higher, Uncontrolled pain Allergies/Adverse Reactions: Allergies hydrocodone bitartrate [From Vicodin] Allergy (Verified 04/19/19 17:06) Hives strawberry Allergy (Verified 04/19/19 17:06) Hives acetaminophen Adverse Reaction (Verified 04/19/19 17:06) Nausea/hives baclofen Adverse Reaction (Verified 04/19/19 17:06) IT MAKES HIM LIGHTHEADED AND SICK lactose Adverse Reaction (Verified 04/19/19 17:06) Nausea Penicillins Adverse Reaction (Verified 04/19/19 17:06) Nausea COCONUT Allergy (Uncoded 04/19/19 17:06) Hives Medications to take at Discharge Albuterol IH (ProAir) [Proair Hfa] 2 puff INHALATION Q6H PRN PRN 10/22/14 Cholecalciferol (VIT D3) [Vitamin D3] 50,000 unit PO WEFR 10/22/14 Divalproex Sodium [Depakote] 500 mg PO QHS 10/22/14 metFORMIN HCl [Glucophage] 1,000 mg PO BIDCM 10/22/14 Lisinopril [Zestril] 20 mg PO DAILY 03/06/15 Insulin Aspart [Novolog Flexpen] 50 units SC TIDCM 11/12/15 Duloxetine Hcl [Cymbalta] 30 mg PO DAILY 02/29/16 Triamcinolone 0.025% Cream [Kenalog] 1 applic TOPICAL TID PRN PRN 02/29/16 Insulin Degludec [Tresiba Flextouch U-200] 150 unit SQ DAILY 09/10/17 Nadolol 40 mg PO DAILY 09/10/17 Diclofenac Sodium [Voltaren] 1 applic TP 4X/DAY PRN 01/11/18 Doxepin HCl [Sinequan] 25 - 50 mg PO QHS PRN PRN 01/11/18 Fluoxetine [Prozac] 40 mg PO DAILY 01/11/18 Nortriptyline HCl 10 mg PO QHS 01/11/18 Nystatin [Mycostatin] 1 applic TOPICAL 4X/DAY PRN 01/11/18 Prochlorperazine Maleate [Compazine] 10 mg PO Q8H PRN PRN 01/11/18 Risperidone [Risperdal] 1 mg PO BREAKFAST 01/11/18 Risperidone [Risperdal] 2 mg PO QHS 01/11/18 Mometasone/Formoterol [Dulera 200 Mcg/5 Mcg Inhaler] 2 puff IH BID 02/17/18 Verapamil HCl 40 mg PO DAILY 02/24/18 Gabapentin [Neurontin] 100 mg PO TID #42 cap 11/27/18 Ondansetron [Zofran Odt] 4 mg PO Q6H PRN PRN #10 tab 03/11/19 Dicyclomine HCl [Bentyl] 20 mg PO TIDAC #20 cap 04/18/19 proMETHazine tablet [Phenergan tablet] 25 mg PO Q6H PRN PRN #10 tab 04/18/19 Tizanidine HCl [Zanaflex] 4 mg PO BID PRN PRN 04/19/19 Primary Care Physician: Ranjit Azar DO [Primary Care Provider] - Please follow up with your Primary Care Physician in: in 5-7 days Test Results: Test results from this visit will be discussed in further detail at your follow- up appointment, if applicable. Please Follow Up With: Todd Hubbard MD When: in 3-5 days
--- NOTE | 2019-04-22 08:52 | PCM.DC.SUM ---
Discharge Date and Diagnosis - Problem List Patient Problems: Active and Suspected Problems (Last Reviewed 04/19/19 @ 20:27 by Todd Hubbard MD) Cholecystitis (Acute) Acute cholecystitis (Acute) Acute gangrenous cholecystitis (Acute) Date of Admission: 04/19/19 Date of Discharge: 04/22/19 - Primary Discharge Diagnosis Active and Suspected Problems (Last Reviewed 04/19/19 @ 20:27 by Todd Hubbard MD) Cholecystitis (Acute) Acute cholecystitis (Acute) Acute gangrenous cholecystitis (Acute) - Secondary Discharge Diagnosis Chronic Problems (Last Reviewed 04/19/19 @ 20:27 by Todd Hubbard MD) Super-super obese (Chronic) HTN (hypertension) (Chronic) Asthma (Chronic) With severe insulin resistance Seizure (Chronic) Depression (Chronic) Hospital Course and Treatment Imaging Results: Clinical Impression(s) from Imaging Studies Abdomen/Pelvis CT 04/19/19 17:37 IMPRESSION: 1. Acute cholecystitis. The patient is currently being evaluated in the emergency room. 2. Colonic diverticulosis. Electronically Signed: Torito Matute MD at 19:09 EST , Service support , Chest X-Ray 04/19/19 19:55 IMPRESSION: Normal x-ray examination of the chest. Electronically Signed: Torito Matute MD at 20:11 EST , Service support , Operations: None Summary of Care Provided: The patient is a 33 year old M with abdominal pain and assessment of acute cholecystitis was made 1. Acute cholecystitis patient underwent laparoscopic cholecystectomy on 04/20/2019 with the finding of an extremely gangrenous and necrotic gallbladder. Patient was subsequently managed with meropenem. Was initiated on clear liquids which was advanced as tolerated following the procedure 2. Diabetes mellitus type 2; did continue patient home regimen following his surgery 3. Morbid obesity with BMI of 36.8 weight loss advised 4. 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 ~ blood pressure controlled, home medications continued with dose adjustment as needed 5. Schizoaffective disorder did continue patient psych meds 6. DVT prophylaxis SC Lovenox Patient Problems: Active and Suspected Problems (Last Reviewed 04/19/19 @ 20:27 by Todd Hubbard MD) Cholecystitis (Acute) Acute cholecystitis (Acute) Acute gangrenous cholecystitis (Acute) - Physical Exam Vitals/I&O's: Vital Signs Temp Pulse Resp BP Pulse Ox 98.1 F 79 18 154/108 H 96 04/22/19 05:45 04/22/19 06:44 04/22/19 06:44 04/22/19 05:45 04/22/19 06:44 Oxygen Flow Rate (L/min) 2 Oxygen Delivery Method Room Air Weight: 100.199 kg Body Mass Index (BMI) 36.7 Finger Stick Blood Glucose 120 Intake and Output for Last 24 Hours 04/20/19 04/21/19 04/22/19 23:59 23:59 23:59 Intake Total 2810.00 / 3010.00 5346.67 / 5446.67 536.75 / 536.75 Output Total 555 / 855 1979 / 2029 475 / 475 Balance 2255.00 / 2155.00 3366.67 / 3416.67 61.75 / 61.75 General: Alert HEENT: Atraumatic Lungs: Diminished Cardiovascular: Regular rate, Regular Rhythm Neurological: Neuro grossly intact Psych/Mental Status: Normal Affect Microbiology Past 72 Hours 04/20/19 15:37 Aspirate - Other Gram Stain - Final 04/20/19 15:37 Aspirate - Other Wound Culture - Preliminary No growth-Final to follow Laboratory Results 04/21/19 12:04: POC Glucose 102 04/21/19 16:50: POC Glucose 128 H 04/21/19 23:37: POC Glucose 146 H 04/22/19 06:07: POC Glucose 120 H Current Medications Albuterol Sulfate (Ventolin Aerosols) 2.5 mg INHALATION Q4H PRN PRN PRN Reason: SOB &/OR WHEEZING Albuterol Sulfate (Ventolin Aerosols) 2.5 mg INHALATION Q6HWA.RT [facility] Last Admin: 04/22/19 06:44 Dose: 2.5 mg Documented by: Budesonide (Pulmicort Aerosol) 0.5 mg INHALATION Q12H.RT [facility] Last Admin: 04/22/19 06:44 Dose: 0.5 mg Documented by: Dextrose (D50w Syringe) 0 gm IV X1 PRN; Protocol PRN Reason: Hypoglycemia Diclofenac Sodium (Voltaren) 1 applic TP 4X/DAY PRN PRN Divalproex Sodium (Depakote) 500 mg PO QHS [facility] Last Admin: 04/21/19 21:50 Dose: 500 mg Documented by: Doxepin HCl (Sinequan) 25 mg PO QHS PRN PRN PRN Reason: INSOMNIA Duloxetine HCl (Cymbalta) 30 mg PO DAILY [facility] Last Admin: 04/21/19 08:57 Dose: 30 mg Documented by: Enoxaparin Sodium (Lovenox) 40 mg SC DAILY@1000 [facility] Last Admin: 04/21/19 10:24 Dose: 40 mg Documented by: Fluoxetine HCl (Prozac) 40 mg PO DAILY [facility] Last Admin: 04/21/19 10:25 Dose: 40 mg Documented by: Gabapentin (Neurontin) 100 mg PO TID [facility] Last Admin: 04/22/19 05:54 Dose: 100 mg Documented by: Glucagon () 1 mg IM .X1 PRN PRN Reason: Hypoglycemia Sodium Chloride () 250 mls @ 15 mls/hr IV .[id number] PRN PRN Reason: Saline Flush Last Infusion: 04/22/19 05:56 Dose: 0 mls/hr Documented by: Meropenem 1 gm/ Sodium (Chloride) 120 mls @ 33 mls/hr IV Q8 [facility] Last Admin: 04/22/19 05:51 Dose: 33 mls/hr Documented by: Sodium Chloride () 1,000 mls @ 100 mls/hr IV .Q10H [facility] Last Admin: 04/21/19 23:01 Dose: 100 mls/hr Documented by: Insulin Glargine (Lantus ([facility])) 50 units SC DAILY [facility] Last Admin: 04/21/19 10:23 Dose: Not Given Documented by: Insulin Human Lispro (Humalog Kwikpen ([facility])) 0 unit SC TIDAC [facility]; Protocol Last Admin: 04/22/19 06:07 Dose: Not Given Documented by: Lisinopril (Zestril) 20 mg PO DAILY [facility] Last Admin: 04/21/19 08:52 Dose: 20 mg Documented by: Melatonin (Melatonin) 3 mg PO QHS PRN PRN PRN Reason: INSOMNIA Morphine Sulfate () 2 mg IV Q3H PRN PRN PRN Reason: Pain Score 6-10/10 Last Admin: 04/21/19 23:11 Dose: 2 mg Documented by: Nadolol (Corgard) 40 mg PO DAILY [facility] Last Admin: 04/21/19 08:52 Dose: 40 mg Documented by: Nortriptyline HCl (Pamelor) 10 mg PO QHS [facility] Last Admin: 04/21/19 21:50 Dose: 10 mg Documented by: Ondansetron HCl (Zofran) 4 mg IV Q8H PRN PRN PRN Reason: NAUSEA/VOMITING Prochlorperazine Edisylate (Compazine Iv) 5 mg IV Q4H PRN PRN PRN Reason: Breakthrough nausea/vomiting Risperidone (Risperdal) 1 mg PO BREAKFAST [facility] Last Admin: 04/21/19 08:39 Dose: 1 mg Documented by: Risperidone (Risperdal) 2 mg PO QHS [facility] Last Admin: 04/21/19 21:49 Dose: 2 mg Documented by: Sodium Chloride () 10 - 40 ml IV UD PRN PRN Reason: SALINE FLUSH Last Admin: 04/21/19 23:11 Dose: 10 ml Documented by: Tizanidine HCl (Zanaflex) 4 mg PO 4X/DAY [facility] Last Admin: 04/21/19 21:49 Dose: 4 mg Documented by: Verapamil HCl (Calan) 40 mg PO DAILY [facility] Last Admin: 04/21/19 10:22 Dose: 40 mg Documented by: Discharge Diet: No Restrictions, 1800 Calorie Control Diet Discharge Activity: Return to Normal Activity Call your doctor if you observe: Fever of 101 or Higher, Uncontrolled pain Home Medications: Medications to take at Discharge Albuterol IH (ProAir) [Proair Hfa] 2 puff INHALATION Q6H PRN PRN 10/22/14 Cholecalciferol (VIT D3) [Vitamin D3] 50,000 unit PO WEFR 10/22/14 Divalproex Sodium [Depakote] 500 mg PO QHS 10/22/14 metFORMIN HCl [Glucophage] 1,000 mg PO BIDCM 10/22/14 Lisinopril [Zestril] 20 mg PO DAILY 03/06/15 Insulin Aspart [Novolog Flexpen] 50 units SC TIDCM 11/12/15 Duloxetine Hcl [Cymbalta] 30 mg PO DAILY 02/29/16 Triamcinolone 0.025% Cream [Kenalog] 1 applic TOPICAL TID PRN PRN 02/29/16 Insulin Degludec [Tresiba Flextouch U-200] 150 unit SQ DAILY 09/10/17 Nadolol 40 mg PO DAILY 09/10/17 Diclofenac Sodium [Voltaren] 1 applic TP 4X/DAY PRN 01/11/18 Doxepin HCl [Sinequan] 25 - 50 mg PO QHS PRN PRN 01/11/18 Fluoxetine [Prozac] 40 mg PO DAILY 01/11/18 Nortriptyline HCl 10 mg PO QHS 01/11/18 Nystatin [Mycostatin] 1 applic TOPICAL 4X/DAY PRN 01/11/18 Prochlorperazine Maleate [Compazine] 10 mg PO Q8H PRN PRN 01/11/18 Risperidone [Risperdal] 1 mg PO BREAKFAST 01/11/18 Risperidone [Risperdal] 2 mg PO QHS 01/11/18 Mometasone/Formoterol [Dulera 200 Mcg/5 Mcg Inhaler] 2 puff IH BID 02/17/18 Verapamil HCl 40 mg PO DAILY 02/24/18 Gabapentin [Neurontin] 100 mg PO TID #42 cap 11/27/18 Ondansetron [Zofran Odt] 4 mg PO Q6H PRN PRN #10 tab 03/11/19 Dicyclomine HCl [Bentyl] 20 mg PO TIDAC #20 cap 04/18/19 proMETHazine tablet [Phenergan tablet] 25 mg PO Q6H PRN PRN #10 tab 04/18/19 Tizanidine HCl [Zanaflex] 4 mg PO BID PRN PRN 04/19/19 Primary Care Physician: Ranjit Azar DO [Primary Care Provider] - Please follow up with your Primary Care Physician in: in 5-7 days Please Follow Up With: Todd Hubbard MD When: in 3-5 days Disposition: Home Minutes spent on discharge:: 35 Patient Condition:: Stable Medical Necessity - Tobacco Use Smoking Status: Former smoker Meaningful Use Info Meaningful Use Diagnoses (Choose all that apply): None applicable Code Visit Inpatient E&M: 34353 Disch Hosp
[2019-04-22 09:00] VITALS: BP 163/96; PULSE 79; RESP 18; TEMP 36.9; O2SAT 97
[2019-04-22] MEDS: FLUoxetine 20 MG Capsule 40 MG PO (09:01)
[2019-04-22 09:02] LABS: Absolute Lymphocyte Count 1.38 X10^3/uL (0.83-4.51); Absolute Neutrophil Count 3.9 X10^3/uL (2.0-7.7); Basophil# 0.03 X10^3/uL; Basophil% 0.5 % (0-1); Eosinophil# 0.09 X10^3/uL; Eosinophils% 1.5 % (0-5); Hematocrit 33.5 % (40-54); Hemoglobin 10.6 g/dL (13.0-16.5); Lymphocyte # 1.38 X10^3/ul (4.0); Lymphocyte % 23.8 % (19-41); Mean Corp Hgb Conc 31.6 g/dL (32-36); Mean Corpuscular Hgb 25.9 pg (27.0-32.0); Mean Corpuscular Volume 81.9 fL (80-94); Mean Platelet Vol. 10.9 fl (6.2-12.0); Monocyte% 6.9 % (0-10); NRBC Flagged by Analyzer 0 % (0-5); Neutrophil # 3.89 X10^3/uL (2.7-7.7); Platelet Count 228 K/mm3 (150-450); RBC Distribution Width CV 13.5 % (11.6-14.6); RBC Distribution Width SD 40.5 fl (35.1-43.9); Red Blood Count 4.09 M/mm3 (4.6-6.2); White Blood Count 5.8 K/mm3 (4.4-11.0)
[2019-04-22] MEDS: Nadolol 40 MG Tablet PO (09:02)
[2019-04-22] MEDS: tiZANidine HCl 2 MG Tablet 4 MG PO ×2 (09:02→14:35)
[2019-04-22] MEDS: Lisinopril 20 MG Tablet PO (09:03)
[2019-04-22] MEDS: DULoxetine Hcl 30 MG Capsule PO (09:03)
[2019-04-22] MEDS: RisperiDONE 1 MG Tablet PO (09:04)
[2019-04-22 09:28] LABS: Anion Gap 5 (5-15); BUN 5 mg/dL (7-18); BUN/Creat Ratio 7.8 RATIO (10-20); Calcium,Total 8.6 mg/dL (8.5-10.1); Chloride 108 mmol/L (98-107); Creatinine, Serum 0.64 mg/dL (0.70-1.30); EST Glomerular Filtration Rate 150 mL/min (>60); Est Glom Filt Rate - Afr Amer 182 mL/min (>60); Estimated Creatinine Clearance 140.14 ml/min; Glucose 108 mg/dL (74-106); Magnesium 1.7 mg/dL (1.6-2.6); Potassium 3.4 mmol/L (3.5-5.1); Sodium Level 140 mmol/L (136-145)
[2019-04-22] MEDS: oxyCODONE 5 MG Tablet PO (10:56)
--- NOTE | 2019-04-22 10:57 | PCM.PN.SRG ---
Patient Problems: Active and Suspected Problems (Last Reviewed 04/19/19 @ 20:27 by Todd Hubbard MD) Cholecystitis (Acute) Acute cholecystitis (Acute) Acute gangrenous cholecystitis (Acute) Subjective: Patient evaluated resting comfortably in bed. He denies nausea, vomiting. he is tolerating current diet well. He notes minimal amount of abdominal discomfort. - Physical Exam Vitals/I&O's: Vital Signs Temp Pulse Resp BP Pulse Ox 98.5 F 79 18 163/96 H 97 04/22/19 09:00 04/22/19 09:00 04/22/19 09:00 04/22/19 09:00 04/22/19 09:00 Oxygen Flow Rate (L/min) 2 Oxygen Delivery Method Room Air Weight: 220 lb 14.4 oz Body Mass Index (BMI) 36.7 Finger Stick Blood Glucose 120 Intake and Output for Last 24 Hours 04/20/19 04/21/19 04/22/19 23:59 23:59 23:59 Intake Total 2810.00 / 3010.00 5346.67 / 5446.67 1536.75 / 1536.75 Output Total 555 / 855 1979 / 2029 475 / 475 Balance 2255.00 / 2155.00 3366.67 / 3416.67 1061.75 / 1061.75 General: Alert, Oriented x3, Cooperative Abdomen: Hypoactive Bowel Sounds, Distended, Tender - generalized, - - Incisions c/d/i. No erythema or infection noted. GUSTABO drain was removed entirely with tip intact and no complications. Dressing was applied. Microbiology Past 72 Hours 04/20/19 15:37 Aspirate - Other Gram Stain - Final 04/20/19 15:37 Aspirate - Other Wound Culture - Preliminary No growth-Final to follow 04/20/19 15:37 Aspirate - Other Anaerobic Culture - Preliminary No growth in 48 hours. Laboratory Results 04/21/19 12:04: POC Glucose 102 04/21/19 16:50: POC Glucose 128 H 04/21/19 23:37: POC Glucose 146 H 04/22/19 06:07: POC Glucose 120 H 04/22/19 08:52: WBC 5.8, RBC 4.09 L, Hgb 10.6 L, Hct 33.5 L, MCV 81.9, MCH 25.9 L, MCHC 31.6 L, RDW Std Deviation 40.5, RDW Coeff of Ferny 13.5, Plt Count 228, MPV 10.9, Immature Gran % (Auto) 0.300, Neut % (Auto) 67.0, Lymph % (Auto) 23.8, [place] % (Auto) 6.9, Eos % (Auto) 1.5, Baso % (Auto) 0.5, Absolute Neuts (auto) 3.9, Absolute Lymphs (auto) 1.38, Nucleated RBC % 0 04/22/19 08:52: Sodium 140, Potassium 3.4 L, Chloride 108 H, Carbon Dioxide 27.0, Anion Gap 5, BUN 5 L, Creatinine 0.64 L, Estim Creat Clear Calc 140.14, Est GFR (MDRD) Af Amer 182, Est GFR (MDRD) Non-Af 150, BUN/Creatinine Ratio 7.8 L, Glucose 108 H, Calcium 8.6, Magnesium 1.7 Current Medications Albuterol Sulfate (Ventolin Aerosols) 2.5 mg INHALATION Q4H PRN PRN PRN Reason: SOB &/OR WHEEZING Albuterol Sulfate (Ventolin Aerosols) 2.5 mg INHALATION Q6HWA.RT [facility] Last Admin: 04/22/19 06:44 Dose: 2.5 mg Documented by: Budesonide (Pulmicort Aerosol) 0.5 mg INHALATION Q12H.RT [facility] Last Admin: 04/22/19 06:44 Dose: 0.5 mg Documented by: Dextrose (D50w Syringe) 0 gm IV X1 PRN; Protocol PRN Reason: Hypoglycemia Diclofenac Sodium (Voltaren) 1 applic TP 4X/DAY PRN PRN Divalproex Sodium (Depakote) 500 mg PO QHS [facility] Last Admin: 04/21/19 21:50 Dose: 500 mg Documented by: Doxepin HCl (Sinequan) 25 mg PO QHS PRN PRN PRN Reason: INSOMNIA Duloxetine HCl (Cymbalta) 30 mg PO DAILY [facility] Last Admin: 04/22/19 09:03 Dose: 30 mg Documented by: Enoxaparin Sodium (Lovenox) 40 mg SC DAILY@1000 [facility] Last Admin: 04/22/19 09:20 Dose: Not Given Documented by: Fluoxetine HCl (Prozac) 40 mg PO DAILY [facility] Last Admin: 04/22/19 09:01 Dose: 40 mg Documented by: Gabapentin (Neurontin) 100 mg PO TID [facility] Last Admin: 04/22/19 05:54 Dose: 100 mg Documented by: Glucagon () 1 mg IM .X1 PRN PRN Reason: Hypoglycemia Sodium Chloride () 250 mls @ 15 mls/hr IV .[id number] PRN PRN Reason: Saline Flush Last Infusion: 04/22/19 05:56 Dose: 0 mls/hr Documented by: Meropenem 1 gm/ Sodium (Chloride) 120 mls @ 33 mls/hr IV Q8 [facility] Last Admin: 04/22/19 05:51 Dose: 33 mls/hr Documented by: Sodium Chloride () 1,000 mls @ 100 mls/hr IV .Q10H [facility] Last Infusion: 04/22/19 09:04 Dose: Infused Documented by: Insulin Glargine (Lantus ([facility])) 50 units SC DAILY [facility] Last Admin: 04/22/19 09:16 Dose: Not Given Documented by: Insulin Human Lispro (Humalog Kwikpen ([facility])) 0 unit SC TIDAC [facility]; Protocol Last Admin: 04/22/19 06:07 Dose: Not Given Documented by: Lisinopril (Zestril) 20 mg PO DAILY [facility] Last Admin: 04/22/19 09:03 Dose: 20 mg Documented by: Melatonin (Melatonin) 3 mg PO QHS PRN PRN PRN Reason: INSOMNIA Morphine Sulfate () 2 mg IV Q3H PRN PRN PRN Reason: Pain Score 6-10/10 Nadolol (Corgard) 40 mg PO DAILY [facility] Last Admin: 04/22/19 09:02 Dose: 40 mg Documented by: Nortriptyline HCl (Pamelor) 10 mg PO QHS [facility] Last Admin: 04/21/19 21:50 Dose: 10 mg Documented by: Ondansetron HCl (Zofran) 4 mg IV Q8H PRN PRN PRN Reason: NAUSEA/VOMITING Oxycodone HCl (Oxyir) 5 mg PO Q6H PRN PRN PRN Reason: Pain Score 6-10/10 Last Admin: 04/22/19 10:56 Dose: 5 mg Documented by: Prochlorperazine Edisylate (Compazine Iv) 5 mg IV Q4H PRN PRN PRN Reason: Breakthrough nausea/vomiting Risperidone (Risperdal) 1 mg PO BREAKFAST [facility] Last Admin: 04/22/19 09:04 Dose: 1 mg Documented by: Risperidone (Risperdal) 2 mg PO QHS [facility] Last Admin: 04/21/19 21:49 Dose: 2 mg Documented by: Sodium Chloride () 10 - 40 ml IV UD PRN PRN Reason: SALINE FLUSH Last Admin: 04/21/19 23:11 Dose: 10 ml Documented by: Tizanidine HCl (Zanaflex) 4 mg PO 4X/DAY [facility] Last Admin: 04/22/19 09:02 Dose: 4 mg Documented by: Verapamil HCl (Calan) 40 mg PO DAILY [facility] Last Admin: 04/22/19 09:04 Dose: 40 mg Documented by: Medical Necessity - Tobacco Use Smoking Status: Former smoker Assessment/Plan All Active Problems (Last Reviewed 04/19/19 @ 20:27 by Todd Hubbard MD) SOB (shortness of breath) (Acute) Cholecystitis (Acute) Acute cholecystitis (Acute) Acute gangrenous cholecystitis (Acute) I am following this patient in conjunction with Dr. Hubbard. S/p laparoscopic cholecystectomy Ready for discharge Follow-up with our office in 7-10 days Code Visit Inpatient E&M: 72005 [facility] L1 - No charge
[2019-04-22 11:41] LABS: Bedside Glucose 116 mg/dL (70-110)
[2019-04-22 14:42] VITALS: BP 153/88; PULSE 74; RESP 16; TEMP 37.3; O2SAT 97
--- NOTE | 2019-04-23 12:57 | CASEMGMT ---
ALISA CM Discharge Follow-up Phone Call: ALIZA: Jamarcus Strata: 4 Call Date: 04/23/19 Discharge Date: 04/22/19 Time of Call: 1115, 1145, 125 ? Admitting Diagnosis: acute gangrenous cholecystitis Discharge follow-up call attempted to patient x3. Immediate busy signal obtained on all attempts. Tony John RN
== END 2019-04-22 13:00 | disposition home or self-care (01) | DRG 263 ==
LOC: ED 17:34 → MS3 20:23
PROVIDERS: Anesthesiology; Family Medicine; Surgery; Emergency Provider Emergency Medicine; Family Provider Student in an Organized Health Care Education/Training Program; PCP Student in an Organized Health Care Education/Training Program; Visit Provider Internal Medicine
PROC: 0FT44ZZ Resection of Gallbladder, Percutaneous Endoscopic Approach (ICD-10-PCS; principal; 2019-04-20 14:00)
DX: K81.0 Acute cholecystitis (principal); K82.A1 Gangrene of gallbladder in cholecystitis; F25.9 Schizoaffective disorder, unspecified; E11.9 Type 2 diabetes mellitus without complications; I10 Essential (primary) hypertension; E66.01 Morbid (severe) obesity due to excess calories; Z68.36 Body mass index [BMI] 36.0-36.9, adult; Z87.891 Personal history of nicotine dependence; Z79.4 Long term (current) use of insulin; J45.909 Unspecified asthma, uncomplicated; R56.9 Unspecified convulsions; F32.9 Major depressive disorder, single episode, unspecified; E88.81 Metabolic syndrome and other insulin resistance; D64.9 Anemia, unspecified; Z79.899 Other long term (current) drug therapy
CPT/HCPCS: 36415; 71045; 74177; 80048; 80053; 81001; 82962; 83036; 83690; 83735; 85025; 85730; 87070; 87075; 87205; 88304; 93005; 94002; 94640; 96361; 96374; 96375; 96376; 99251; 99285; J2185; J7030; J7040; J7050; J7120; Q9967; A4216; G0463; J0744; J1610; J2405

== ENCOUNTER → 2019-06-24 14:18 | Outpatient (CLI) | payer MEDICAID, SELFPAY ==
[2019-04-22 14:19] VITALS: BMI 36.7
--- NOTE | 2019-06-24 14:33 | CT_ITS ---
We are attempting to reach an attending provider to discuss findings. An addendum with communication details will be sent when the communication is complete. STUDY: CT FACIAL BONES WITHOUT CONTRAST REASON FOR EXAM: Male, 33 years old. F/U MANDIBLE FX X 1 YEAR AGO RADIATION DOSAGE (If Supplied By Facility): CTDIvol = ( 29.38 ) mGy, DLP = ( 562.15 ) mGycm TECHNIQUE: The patient was scanned in a multi detector CT scanner. Sagittal and coronal images were reconstructed. Individualized dose optimization techniques were used for this CT. COMPARISON: January 26, 2018 CT scan facial bones FINDINGS: Since prior study there is been reduction of the fracture of the left mandible. There is postoperative change of the right mandible. There is a large cystic space below the left side mandibular molars may represent periodontal cyst or potentially infection. There is a wide opening leads to a side plate and cortical screws within the left mandible. There is fragmentation peripheral to this area of bony resorption and possible loosening. There is a right parasymphyseal sideplate. On the right side there is a large dental erosion in the third molar of the mandible. There is a right side mandibular premolar. Dental abscess. Normal orbital de león and orbital contents. Normal nasal bones and anterior nasal spine. Normal facial bones. There is improved sinusitis when compared to prior study. There is visualized enlargement of the ventricles greater than expected for age. CT/Sinus/Facial Bone IMPRESSION: Since prior study January 26, 2018, there is been a open reduction internal fixation of the left mandible. Now, The left side mandibular plate is likely loose. There is an adjacent large gap periodontal abscess through into the soft tissues underlying the 2 remaining posterior molars of the left mandible which are likely loose. Periodontal infection is likely. Osteomyelitis is suspected. Postoperative change of the right-sided parasymphyseal region. There is a right side third molar dental cavity. There is poor dentition. Electronically Signed: Ami Amaya MD at 17:51 EST Tel , Service support ,
== END ==
PROVIDERS: Family Provider Student in an Organized Health Care Education/Training Program; PCP Student in an Organized Health Care Education/Training Program; Referring Provider Orthopaedic Surgery Hand Surgery; Visit Provider Orthopaedic Surgery Hand Surgery
DX: S02.609A Fracture of mandible, unspecified, initial encounter for closed fracture (principal); S02.602K Fracture of unspecified part of body of left mandible, subsequent encounter for fracture with nonunion; X58.XXXA Exposure to other specified factors, initial encounter; Y93.9 Activity, unspecified; Y92.9 Unspecified place or not applicable; Y99.9 Unspecified external cause status
CPT/HCPCS: 70486

== ENCOUNTER → 2019-06-27 12:54 | Outpatient (CLI) | payer MEDICAID, SELFPAY ==
[2019-04-22 14:19] VITALS: BMI 36.7
[2019-06-27 14:01] LABS: Erythrocyte Sedimentation Rate 49 mm/hr (0-15)
== END ==
PROVIDERS: PCP Student in an Organized Health Care Education/Training Program; Referring Provider Registered Nurse; Visit Provider Registered Nurse
DX: K04.7 Periapical abscess without sinus (principal)
CPT/HCPCS: 85652

== ENCOUNTER 2019-06-28 19:01 | Emergency (ER) | payer MEDICAID, SELFPAY ==
[2019-04-22 14:19] VITALS: BMI 36.7
[2019-06-28 19:02] VITALS: BP 143/89; PULSE 130; RESP 18; TEMP 37.2; O2SAT 99; BMI 36.3
[2019-06-28 20:04] VITALS: BP 144/98; PULSE 96; RESP 20; TEMP 37.1; O2SAT 99
--- NOTE | 2019-06-28 20:19 | EKG12_ITS ---
Test Reason : DYSRHYTHMIA Blood Pressure : / mmHG Vent. Rate : 096 BPM Atrial Rate : 096 BPM P-R Int : 142 ms QRS Dur : 086 ms QT Int : 338 ms P-R-T Axes : 063 050 039 degrees QTc Int : 427 ms Normal sinus rhythm Normal ECG Confirmed by AVTAR JOSEPH, TRINIDAD ([id number]), editor magazine KARLO MCKEON ([id number]) on 07/01/2019 12:17:11 PM Referred By: TINO Confirmed By:TRINIDAD NOVA MD
--- NOTE | 2019-06-28 20:21 | ED.DCSUM_ITS ---
History of Present Illness Chief Complaint: Dental Informant: Patient Onset: Month(s) Context: Gradual Onset Timing: Continuous Narrative: Patient is a 33-year-old male with history of mandibular fracture in 2018 with subsequent ORIF presenting with concern for osteomyelitis of the left mandible. Patient had an outpatient CT performed 4 days ago because of persistent mandibular pain. The CT results left side mandibular plate that is loose as well as a periodontal abscess and suspected osteomyelitis. Patient states since he had the surgery with Dr. Ludwig at the [facility] he has had issues. He denies associated fever. He has had intermittent nausea and vomiting. He states he last vomited 2 days ago. He is had normal bowel movements. He notes he is continually had a bad taste in his mouth since the surgery. Patient also has a history of diabetes mellitus type 2, seizure disorder and asthma. Patient states his blood sugars been high in the lowest they have been is 174. Patient denies any other complaints at this time. He notes his doctors been try to get him to come to the hospital for the last week but patient has been busy working. Patient works at [employer]. Past Medical History - Allergies and Home Meds Allergies/Adverse Reactions: Allergies hydrocodone bitartrate [From Vicodin] Allergy (Verified 06/28/19 19:04) Hives strawberry Allergy (Verified 06/28/19 19:04) Hives acetaminophen Adverse Reaction (Verified 06/28/19 19:04) Nausea/hives baclofen Adverse Reaction (Verified 06/28/19 19:04) IT MAKES HIM LIGHTHEADED AND SICK lactose Adverse Reaction (Verified 06/28/19 19:04) Nausea Penicillins Adverse Reaction (Verified 06/28/19 19:04) Nausea COCONUT Allergy (Uncoded 06/28/19 19:04) Hives Primary Care Physician: Ranjit Azar DO [Primary Care Provider] - Past Medical History: - - Diabetes mellitus type 2, asthma, seizure disorder Surgical History: tonsillectomy, - Smoking Status: Former smoker - Family History Paternal Family History: Reports: Unknown Maternal Family History: Reports: Unknown Review of Systems General: Denies: Chills, Fever, Sweats Eyes: Denies: Visual changes - bilaterally, Diplopia ENT: Reports: - - Left lower jaw pain. Denies: Rhinorrhea, Sore throat Cardiovascular: Denies: Chest pain, Palpitations Respiratory: Denies: Dyspnea, Cough, Dyspnea on exertion Gastrointestinal: Reports: Nausea, Vomiting. Denies: Abdominal pain, Diarrhea, Melena, Hematochezia Genitourinary: Denies: Dysuria, Hematuria, Frequency Musculoskeletal: Denies: Back pain, Extremity Pain Skin: Denies: Rash, Wounds Neurological: Denies: Headache, Weakness, Numbness Physical Exam Vital Signs/Narrative: Vital Signs Temp Pulse Resp BP Pulse Ox 06/28/19 19:02 99.0 F 130 H 18 143/89 H 99 Inital Vital Signs reviewed: Yes General: Well nourished, Well developed, No Acute Distress Head: Normocephalic, Atraumatic Eyes: Perrl, EOMI ENT: Moist mucous membranes, No rhinorrhea, TM's clear, - - Slight deformity of the left mandible consistent with prior jaw fracture, tenderness to palpation and looseness of the left lower molars. No obvious abscess appreciated. Widespread dental decay. Sublingual mucosa is soft. Normal phonation. Patient is handling secretions easily. Neck: Supple, Nontender Cardiovascular: Regular rhythm, No murmurs, Tachycardia Respiratory: No distress, CTA bilaterally, Chest nontender Abdomen: Soft, Nontender, Nondistended, Normal bowel sounds Back: Nontender, Normal Inspection Extremities: Nontender, No edema Skin: Normal color, No rash Neurological: Alert, Oriented x3, Cranial nerves II-XII grossly intact, Normal Strength, Normal Sensation Psychological: Normal affect, Normal Mood Diagnostic/Tx/Re-eval Laboratory Data 06/28/19 06/28/19 06/28/19 21:02 21:02 21:02 WBC 7.2 RBC 5.24 Hgb 13.7 Hct 42.6 MCV 81.3 MCH 26.1 L MCHC 32.2 RDW Std Deviation 38.7 RDW Coeff of Ferny 13.2 Plt Count 241 MPV 11.0 ESR 23 H Sodium 139 Potassium 4.1 Chloride 106 Carbon Dioxide 28.0 Anion Gap 5 BUN 20 H Creatinine 1.27 Estim Creat Clear Calc 70.62 Est GFR (MDRD) Af Amer 83 Est GFR (MDRD) Non-Af 68 BUN/Creatinine Ratio 15.7 Glucose 116 H Lactic Acid 1.5 Calcium 9.4 C-React Prot Ext Range 4.81 H - Rhythm Strip Rhythm Strip: Sinus Rhythm Rate: 96 Ectopy: None - EKG Initial EKG Interpretation: Sinus Rhythm, - - Sinus rhythm at a rate of 96 Normal intervals Normal axis Normal ST segments - Medical Decision Making Is evaluated for abnormal outpatient CT. CT showed findings concerning for loosening of mandibular hardware as well as osteomyelitis of the left mandible. Patient is afebrile does not have any acute change in his symptoms. CBC is normal. Patient does have mildly elevated inflammatory markers including ESR and CRP. Case discussed with Dr. Joshi, on-call physician for patient's surgeon. He states that this is an ongoing issue he does not require emergent admission or antibiotics. He would like to defer antibiotics at this time as patient does not have a fever, leukocytosis or other systemic symptoms. He recommends follow-up in the office this week for further management and plan calos. Patient states he actually has an appointment on Monday. He states he has transportation already arranged. He is encouraged to keep this appointment. Patient is given IV fluids in the emergency room. He is given 1 dose of morphine for pain control. Patient's glucose is relatively normal at 116. Patient is counseled on the importance of tight glucose control for healing. Patient is counseled on signs and symptoms requiring return to the emergency room. Patient verbalizes agreement and understand this plan. Patient discharged home in stable and improved condition. ED Disposition - Plan for ED Patient: Disposition: Home or Assisted Living Diagnosis: Osteomyelitis of mandible Referrals: Ranjit Azar DO [Primary Care Provider] - Additional Instructions: Your CT shows signs concerning for infection of the jawbone. This is likely been there for quite some time. After discussion with [facility], they would like to see you for follow-up. He will be given a copy of your CT read. At this time you will not be started on antibiotics. Please make sure you keep your appointment for the . Return the emergency room if you develop fever or more severe symptoms.
[2019-06-28 21:00] VITALS: BP 126/96; PULSE 96; RESP 20; TEMP 37; O2SAT 99
[2019-06-28] MEDS: 0.9% Normal Saline 1,000 ML 1000 ML IV (21:12)
[2019-06-28 21:21] LABS: Hematocrit 42.6 % (40-54); Hemoglobin 13.7 g/dL (13.0-16.5); Mean Corp Hgb Conc 32.2 g/dL (32-36); Mean Corpuscular Hgb 26.1 pg (27.0-32.0); Mean Corpuscular Volume 81.3 fL (80-94); Platelet Count 241 K/mm3 (150-450); RBC Distribution Width CV 13.2 % (11.6-14.6); RBC Distribution Width SD 38.7 fl (35.1-43.9); Red Blood Count 5.24 M/mm3 (4.6-6.2); White Blood Count 7.2 K/mm3 (4.4-11.0)
[2019-06-28 21:29] LABS: Erythrocyte Sedimentation Rate 23 mm/hr (0-15)
[2019-06-28] MEDS: Morphine 4 MG/ML Syringe IV (21:38)
[2019-06-28 21:54] LABS: Lactic Acid 1.5 mmol/L (0.4-1.9)
[2019-06-28 21:59] LABS: Anion Gap 5 (5-15); BUN 20 mg/dL (7-18); BUN/Creat Ratio 15.7 RATIO (10-20); CRP 4.81 mg/L (0.0-3.0); Calcium,Total 9.4 mg/dL (8.5-10.1); Chloride 106 mmol/L (98-107); Creatinine, Serum 1.27 mg/dL (0.70-1.30); EST Glomerular Filtration Rate 68 mL/min (>60); Est Glom Filt Rate - Afr Amer 83 mL/min (>60); Estimated Creatinine Clearance 70.62 ml/min; Glucose 116 mg/dL (74-106); Potassium 4.1 mmol/L (3.5-5.1); Sodium Level 139 mmol/L (136-145)
[2019-06-28 22:00] VITALS: BP 137/94; PULSE 96; RESP 17; TEMP 36.8; O2SAT 99
[2019-06-28 23:33] VITALS: BP 133/93; PULSE 93; RESP 16; O2SAT 100
== END 2019-06-28 23:34 | disposition home or self-care (01) ==
PROVIDERS: Emergency Provider Emergency Medicine; PCP Student in an Organized Health Care Education/Training Program
DX: M27.2 Inflammatory conditions of jaws (principal); R11.2 Nausea with vomiting, unspecified; E11.9 Type 2 diabetes mellitus without complications; G40.909 Epilepsy, unspecified, not intractable, without status epilepticus; J45.909 Unspecified asthma, uncomplicated; Z88.5 Allergy status to narcotic agent; Z88.0 Allergy status to penicillin; Z87.891 Personal history of nicotine dependence; Z79.899 Other long term (current) drug therapy
CPT/HCPCS: 80048; 83605; 85027; 85652; 86140; 87040; 93005; 96361; 96374; 99285; J7030; A4216

== ENCOUNTER 2020-03-09 12:45 | Emergency (ER) | payer MEDICAID, SELFPAY ==
[2020-03-09 12:46] VITALS: BP 177/110; PULSE 107; RESP 18; TEMP 36.3; O2SAT 100; BMI 40.1
--- NOTE | 2020-03-09 13:38 | EKG12_ITS ---
Test Reason : NAUSEA Blood Pressure : / mmHG Vent. Rate : 084 BPM Atrial Rate : 084 BPM P-R Int : 142 ms QRS Dur : 094 ms QT Int : 354 ms P-R-T Axes : 055 049 032 degrees QTc Int : 418 ms Normal sinus rhythm Normal ECG Confirmed by AVTAR JOSEPH, TRINIDAD ([id number]), non linear editor COLT LEY ([id number]) on 03/11/2020 10:12:08 AM Referred By: MR Confirmed By:TRINIDAD NOVA MD
[2020-03-09 14:01] LABS: Absolute Lymphocyte Count 1.65 X10^3/uL (0.83-4.51); Absolute Neutrophil Count 3.1 X10^3/uL (2.0-7.7); Basophil# 0.03 X10^3/uL; Basophil% 0.6 % (0-1); Eosinophil# 0.06 X10^3/uL; Eosinophils% 1.2 % (0-5); Hematocrit 38.2 % (40-54); Hemoglobin 12.7 g/dL (13.0-16.5); Lymphocyte # 1.65 X10^3/ul (4.0); Lymphocyte % 31.9 % (19-41); Mean Corp Hgb Conc 33.2 g/dL (32-36); Mean Corpuscular Hgb 28.6 pg (27.0-32.0); Mean Platelet Vol. 10.7 fl (6.2-12.0); Monocyte# 0.33 X10^3/uL; Monocyte% 6.4 % (0-10); NRBC Flagged by Analyzer 0 % (0-5); Neutrophil # 3.09 X10^3/uL (2.7-7.7); Neutrophil % 59.5 % (47-70); Platelet Count 209 K/mm3 (150-450); RBC Distribution Width CV 14.6 % (11.6-14.6); RBC Distribution Width SD 41.3 fl (35.1-43.9); Red Blood Count 4.44 M/mm3 (4.6-6.2); White Blood Count 5.2 K/mm3 (4.4-11.0)
[2020-03-09] MEDS: Ondansetron 4 MG/2 ML Vial IV (14:32)
--- NOTE | 2020-03-09 14:32 | ED.VIS.GEN ---
History of Present Illness Chief Complaint: Nausea/Vomiting Narrative: Patient presenting secondary to nausea vomiting, near syncopal episode. Patient has an underlying history of hypertension diabetes and obesity. Patient reports that he was at work he had a sudden onset of nausea and vomiting. He then reports that his boss told him that he was falling asleep. Patient denies any preceding chest pain. No shortness of breath. No diarrhea. He does have some crampy abdominal pain associated with this. No headaches. No visual changes numbness or weakness. Review of systems otherwise negative. Past Medical History - Allergies and Home Meds Allergies/Adverse Reactions: Allergies hydrocodone bitartrate [From Vicodin] Allergy (Verified 03/09/20 12:48) Hives strawberry Allergy (Verified 03/09/20 12:48) Hives acetaminophen Adverse Reaction (Verified 03/09/20 12:48) Nausea/hives baclofen Adverse Reaction (Verified 03/09/20 12:48) IT MAKES HIM LIGHTHEADED AND SICK lactose Adverse Reaction (Verified 03/09/20 12:48) Nausea Penicillins Adverse Reaction (Verified 03/09/20 12:48) Nausea COCONUT Allergy (Uncoded 03/09/20 12:48) Hives Primary Care Physician: Ranjit Azar DO [Primary Care Provider] - Prior records reviewed: Yes Past Medical History: - - Diabetes hypertension Surgical History: tonsillectomy, - Smoking Status: Former smoker Alcohol: None Drugs: None - Family History Paternal Family History: Reports: Unknown Maternal Family History: Reports: Unknown Review of Systems All systems negative except as indicated General: Denies: Chills, Fever, Sweats Eyes: Denies: Visual changes - bilaterally, Diplopia ENT: Denies: Rhinorrhea, Sore throat Cardiovascular: Denies: Chest pain, Palpitations Respiratory: Denies: Dyspnea, Cough, Dyspnea on exertion Gastrointestinal: Reports: Nausea, Vomiting Genitourinary: Denies: Dysuria, Hematuria, Frequency Musculoskeletal: Denies: Back pain, Extremity Pain Skin: Denies: Rash, Wounds Neurological: Denies: Headache, Weakness, Numbness Physical Exam Vital Signs/Narrative: Vital Signs Temp Pulse Resp BP Pulse Ox 03/09/20 12:46 97.4 F L 107 H 18 177/110 H 100 Inital Vital Signs reviewed: Yes General: Well nourished, Well developed, No Acute Distress Head: Normocephalic, Atraumatic Eyes: Perrl, EOMI ENT: Moist mucous membranes, No rhinorrhea Neck: Supple, Nontender Cardiovascular: Regular rhythm, No murmurs, Tachycardia Respiratory: No distress, CTA bilaterally, Chest nontender Abdomen: Soft, Nontender, Nondistended, Normal bowel sounds Back: Nontender, Normal Inspection Extremities: Nontender, No edema Skin: Normal color, No rash Neurological: Alert, Oriented x3, Cranial nerves II-XII grossly intact, Normal Strength, Normal Sensation Psychological: Normal affect, Normal Mood Diagnostic/Tx/Re-eval Laboratory Data 03/09/20 03/09/20 03/09/20 13:55 13:55 14:20 WBC 5.2 RBC 4.44 L Hgb 12.7 L Hct 38.2 L MCV 86.0 MCH 28.6 MCHC 33.2 RDW Std Deviation 41.3 RDW Coeff of Ferny 14.6 Plt Count 209 MPV 10.7 Immature Gran % (Auto) 0.400 Neut % (Auto) 59.5 Lymph % (Auto) 31.9 [place] % (Auto) 6.4 Eos % (Auto) 1.2 Baso % (Auto) 0.6 Absolute Neuts (auto) 3.1 Absolute Lymphs (auto) 1.65 Nucleated RBC % 0 Sodium Cancelled Cancelled Potassium Cancelled Cancelled Chloride Cancelled Cancelled Carbon Dioxide Cancelled Cancelled Anion Gap Cancelled Cancelled BUN Cancelled Cancelled Creatinine Cancelled Cancelled Estim Creat Clear Calc Cancelled Cancelled Est GFR (MDRD) Af Amer Cancelled Cancelled Est GFR (MDRD) Non-Af Cancelled Cancelled BUN/Creatinine Ratio Cancelled Cancelled Glucose Cancelled Cancelled Calcium Cancelled Cancelled 03/09/20 14:49 WBC RBC Hgb Hct MCV MCH MCHC RDW Std Deviation RDW Coeff of Ferny Plt Count MPV Immature Gran % (Auto) Neut % (Auto) Lymph % (Auto) [place] % (Auto) Eos % (Auto) Baso % (Auto) Absolute Neuts (auto) Absolute Lymphs (auto) Nucleated RBC % Sodium 141 Potassium 3.9 Chloride 109 H Carbon Dioxide 30.0 Anion Gap 2 L BUN 8 Creatinine 0.87 Estim Creat Clear Calc 102.11 Est GFR (MDRD) Af Amer 128 Est GFR (MDRD) Non-Af 106 BUN/Creatinine Ratio 9.2 L Glucose 103 Calcium 8.9 - EKG Initial EKG Interpretation: - - Sinus rhythm [address] segments normal T waves normal MN and QTc intervals no evidence of acute ischemia or arrhythmia - Medical Decision Making Patient presented with nausea vomiting and near syncopal episode. EKG was found to be unremarkable. CBC and chemistry found to be unremarkable. Patient was given fluids and Zofran and had symptomatic improvement. At this point I do not feel the patient requires admission or further observation. He has negative per the [place] syncope rule. Patient was given reassurance, will be discharged with a course of Zofran, he was discharged in stable condition. ED Disposition - Plan for ED Patient: Disposition: Home or Assisted Living Diagnosis: Nausea and vomiting, Near syncope Instructions: ED Nausea Vomiting Adult Prescriptions: Ondansetron [Zofran Odt] 4 mg PO Q8H PRN PRN #10 tab PRN Reason: Nausea Prescription Printed Referrals: Ranjit Azar DO [Primary Care Provider] -
--- NOTE | 2020-03-09 14:34 | NURSING ---
SPECIMEN HEMOLIZED AGAIN
[2020-03-09] MEDS: 0.9% Normal Saline 1,000 ML 1000 ML IV (14:35)
[2020-03-09 15:11] LABS: Anion Gap 2 (5-15); BUN 8 mg/dL (7-18); BUN/Creat Ratio 9.2 RATIO (10-20); Calcium,Total 8.9 mg/dL (8.5-10.1); Chloride 109 mmol/L (98-107); Creatinine, Serum 0.87 mg/dL (0.70-1.30); EST Glomerular Filtration Rate 106 mL/min (>60); Est Glom Filt Rate - Afr Amer 128 mL/min (>60); Estimated Creatinine Clearance 102.11 ml/min; Glucose 103 mg/dL (74-106); Potassium 3.9 mmol/L (3.5-5.1); Sodium Level 141 mmol/L (136-145)
--- NOTE | 2020-03-09 15:20 | ED.DEP ---
ED Disposition - Plan for ED Patient: Disposition: Home or Assisted Living Diagnosis: Nausea and vomiting, Near syncope Instructions: ED Nausea Vomiting Adult Prescriptions: Ondansetron [Zofran Odt] 4 mg PO Q8H PRN PRN #10 tab PRN Reason: Nausea Prescription Printed Referrals: Ranjit Azar DO [Primary Care Provider] -
[2020-03-09 16:09] VITALS: PULSE 78; RESP 19; RESP 20
== END 2020-03-09 16:34 | disposition home or self-care (01) ==
PROVIDERS: Emergency Provider Emergency Medicine; PCP Student in an Organized Health Care Education/Training Program
DX: R11.2 Nausea with vomiting, unspecified (principal); R55 Syncope and collapse; R10.9 Unspecified abdominal pain; E11.9 Type 2 diabetes mellitus without complications; I10 Essential (primary) hypertension; E66.9 Obesity, unspecified; Z79.4 Long term (current) use of insulin; Z79.899 Other long term (current) drug therapy; Z87.891 Personal history of nicotine dependence
CPT/HCPCS: 36415; 80048; 85025; 93005; 96361; 96374; 99285; J7030; J2405

== ENCOUNTER 2020-04-22 09:57 | Emergency (ER) | payer MEDICAID, SELFPAY ==
[2020-04-22 09:58] VITALS: BP 179/126; PULSE 94; RESP 22; TEMP 36.9; O2SAT 98; BMI 41.1
--- NOTE | 2020-04-22 10:23 | CT_ITS ---
STUDY: CT BRAIN WITHOUT CONTRAST REASON FOR EXAM: Male, 34 years old. LT CP, NUMBNESS RADIATION DOSAGE (If Supplied By Facility): CTDIvol = ( 44.99 ) mGy, DLP = ( 779.24 ) mGycm TECHNIQUE: Transaxial CT imaging of the brain was performed without administration of intravenous contrast material. Individualized dose optimization techniques were used for this CT. COMPARISON: Comparison is made with prior study dated 07/17/2018. FINDINGS: Normal soft tissue structures. Normal calvarium. Once again, there is symmetrical dilatation of the lateral ventricles especially the occipital horns. This is a stable finding. Normal white matter tracts of the cerebral hemispheres. Tiny stable lacunae in the left thalamus. Normal brainstem. Normal cerebellum. There is no intracranial hemorrhage. There are no findings of an acute ischemic infarction. Normal visualized paranasal sinuses. CT/Brain/Head without Contrast IMPRESSION: Stable dilatation of the lateral ventricles more pronounced in the occipital horns. Electronically Signed: Florentin Quan, at 10:48 EST , Service support ,
--- NOTE | 2020-04-22 10:23 | EKG12_ITS ---
Test Reason : CP Blood Pressure : / mmHG Vent. Rate : 080 BPM Atrial Rate : 080 BPM P-R Int : 148 ms QRS Dur : 088 ms QT Int : 354 ms P-R-T Axes : 057 039 024 degrees QTc Int : 408 ms Normal sinus rhythm with sinus arrhythmia ST elevation, consider early repolarization Borderline ECG Confirmed by CHANEL JOSEPH, MILADYS ([id number]), editor greeting card COLT LEY ([id number]) on 04/27/2020 9:31:42 A M Referred By: JACINTA Confirmed By:KEVIN BUCHANAN MD
--- NOTE | 2020-04-22 10:27 | ED.VIS.GEN ---
History of Present Illness Chief Complaint: Chest Pain Informant: Patient Narrative: Patient is a 34-year-old male with a past medical history of diabetes, seizures who presents to the emergency department for left-sided chest pain that started just prior to arrival. After the chest pain started he felt like he was getting numb on the left side of his body. He states he has had a similar episode a few years back that resolved on its own. He denies any history of heart attacks, strokes. No history of DVT/PE. At this time he currently rates the left-sided chest pain is a 6 out of 10. Has not tried taking anything for it. No known aggravating or relieving factors. No shortness of breath. No nausea or vomiting. Denies any headache or vision changes. He denies any leg swelling or calf pain. No recent illnesses including any coughing or fever/chills. Past Medical History - Allergies and Home Meds Allergies/Adverse Reactions: Allergies hydrocodone bitartrate [From Vicodin] Allergy (Verified 04/22/20 10:07) Hives strawberry Allergy (Verified 04/22/20 10:07) Hives acetaminophen Adverse Reaction (Verified 04/22/20 10:07) Nausea/hives baclofen Adverse Reaction (Verified 04/22/20 10:07) IT MAKES HIM LIGHTHEADED AND SICK lactose Adverse Reaction (Verified 04/22/20 10:07) Nausea Penicillins Adverse Reaction (Verified 04/22/20 10:07) Nausea COCONUT Allergy (Uncoded 04/22/20 10:07) Hives Primary Care Physician: Ranjit Azar DO [Primary Care Provider] - 2 Days Prior records reviewed: Yes Surgical History: tonsillectomy, - Smoking Status: Former smoker - Family History Paternal Family History: Reports: Unknown Maternal Family History: Reports: Unknown Review of Systems All systems negative except as indicated General: Denies: Chills, Fever, Sweats Eyes: Denies: Visual changes - bilaterally, Diplopia ENT: Denies: Rhinorrhea, Sore throat Cardiovascular: Reports: Chest pain. Denies: Palpitations Respiratory: Denies: Dyspnea, Cough, Dyspnea on exertion Gastrointestinal: Denies: Abdominal pain, Nausea, Vomiting, Diarrhea, Melena, Hematochezia Genitourinary: Denies: Dysuria, Hematuria, Frequency Musculoskeletal: Denies: Back pain, Extremity Pain Skin: Denies: Rash, Wounds Neurological: Reports: Numbness. Denies: Headache, Weakness Physical Exam Vital Signs/Narrative: Vital Signs Temp Pulse Resp BP Pulse Ox 04/22/20 09:58 98.5 F 94 22 H 179/126 H 98 Inital Vital Signs reviewed: Yes General: Well nourished, Well developed, No Acute Distress Head: Normocephalic, Atraumatic Eyes: Perrl, EOMI ENT: Moist mucous membranes, No rhinorrhea Neck: Supple, Nontender Cardiovascular: Regular rate, Regular rhythm, No murmurs Respiratory: No distress, CTA bilaterally, Chest nontender Abdomen: Soft, Nontender, Nondistended, Normal bowel sounds Back: Nontender, Normal Inspection Extremities: Nontender, No edema Skin: Normal color, No rash Neurological: Alert, Oriented x3, Cranial nerves II-XII grossly intact, Normal Strength, Normal Sensation - Patient able to feel me touch his arms and legs bilaterally. He feels that it is mildly dull compared to the right side. Normal sensation on face.. Negative for: Left side facial droop, Right side facial droop Psychological: Normal affect, Normal Mood Diagnostic/Tx/Re-eval - EKG Initial EKG Interpretation: - - Rate of 80 bpm and normal sinus rhythm normal intervals. Normal axis. There is mild ST elevation diffusely consistent with early repolarization. No T wave abnormalities. - Medical Decision Making Patient presents to the emergency department for left-sided chest pain. After the chest pain started he is developed some numbness on the left side of his body. He has a NIH score of 0. I have low suspicion of stroke symptoms given the pain associated with his symptoms. We will do a chest pain work-up with EKG, chest x-ray basic lab work. We will perform a head CT to evaluate for intracranial hemorrhage. CT scan of his head showed mildly enlarged ventricles but these are stable. Patient stating his whole body feels numb compared to just the unilateral side. His initial troponin is negative. Given the fact that this just occurred I did recommend we do the repeat troponin. Low concern for PE with no risk factors, negative Homans' sign. He is not tachycardic and he is satting well on room air. He otherwise has been stable throughout ED stay. He has a low heart score. I do not feel patient is having a stroke given the fact he is feeling numbness overall just unilateral. Do not have any explanation for this at this time. We will have him follow-up with his PCP as an outpatient. Warning signs and symptoms for which to return to the emergency department are reviewed. He understands and is agreeable this plan. He is discharged home in stable condition. All questions answered. ED Disposition - Plan for ED Patient: Disposition: Home or Assisted Living Diagnosis: Chest pain, Paresthesia Instructions: ED Chest Pain NonCardiac Referrals: Ranjit Azar DO [Primary Care Provider] - 2 Days
--- NOTE | 2020-04-22 10:36 | RAD_ITS ---
STUDY: X-RAY CHEST REASON FOR EXAM: Male, 34 years old. PT C/O LEFT CHEST / SHOULDER PAIN AND UNABLE TO MOVE LEFT ARM TECHNIQUE: Single AP portable view of the chest. COMPARISON: Comparison is made with prior study dated 04/19/2019. FINDINGS: EKG electrodes are seen. The lungs are clear and expanded. There is no demonstrated pleural abnormality. Normal size heart. Normal mediastinum and alanis. Normal visualized pulmonary arteries. Normal visualized aortic arch and descending thoracic aorta. Normal visualized thoracic spine. Normal visualized ribs, clavicles, and shoulders. There is no demonstrated abnormality of the visualized soft tissue structures of the upper abdomen. RAD/Chest 1 View (Portable) IMPRESSION: Normal x-ray examination of the chest. Electronically Signed: Florentin Quan, at 10:53 EST , Service support ,
[2020-04-22 10:50] LABS: Absolute Lymphocyte Count 2.02 X10^3/uL (0.83-4.51); Absolute Neutrophil Count 3.2 X10^3/uL (2.0-7.7); Basophil# 0.03 X10^3/uL; Basophil% 0.5 % (0-1); Eosinophil# 0.08 X10^3/uL; Eosinophils% 1.4 % (0-5); Hematocrit 41.9 % (40-54); Hemoglobin 13.3 g/dL (13.0-16.5); Lymphocyte # 2.02 X10^3/ul (4.0); Lymphocyte % 34.9 % (19-41); Mean Corp Hgb Conc 31.7 g/dL (32-36); Mean Corpuscular Hgb 26.1 pg (27.0-32.0); Mean Corpuscular Volume 82.2 fL (80-94); Mean Platelet Vol. 10.9 fl (6.2-12.0); Monocyte# 0.44 X10^3/uL; Monocyte% 7.6 % (0-10); NRBC Flagged by Analyzer 0 % (0-5); Neutrophil # 3.19 X10^3/uL (2.7-7.7); Neutrophil % 55.3 % (47-70); Platelet Count 234 K/mm3 (150-450); White Blood Count 5.8 K/mm3 (4.4-11.0)
[2020-04-22 11:03] LABS: Anion Gap 5 (5-15); BUN 8 mg/dL (7-18); BUN/Creat Ratio 7.8 RATIO (10-20); Calcium,Total 9.1 mg/dL (8.5-10.1); Chloride 106 mmol/L (98-107); Creatinine, Serum 1.02 mg/dL (0.70-1.30); EST Glomerular Filtration Rate 88 mL/min (>60); Est Glom Filt Rate - Afr Amer 106 mL/min (>60); Estimated Creatinine Clearance 87.09 ml/min; Glucose 223 mg/dL (74-106); Potassium 3.8 mmol/L (3.5-5.1); Sodium Level 138 mmol/L (136-145)
[2020-04-22 12:42] VITALS: BP 159/103; PULSE 79; RESP 21; O2SAT 97
[2020-04-22 15:21] VITALS: BP 168/91; PULSE 78; RESP 16; O2SAT 97
== END 2020-04-22 15:21 | disposition home or self-care (01) ==
PROVIDERS: Emergency Provider Emergency Medicine; PCP Student in an Organized Health Care Education/Training Program
DX: R07.9 Chest pain, unspecified (principal); R20.0 Anesthesia of skin; R20.2 Paresthesia of skin; E11.9 Type 2 diabetes mellitus without complications; R56.9 Unspecified convulsions; R94.31 Abnormal electrocardiogram [ECG] [EKG]; Z79.4 Long term (current) use of insulin; Z79.899 Other long term (current) drug therapy; Z87.891 Personal history of nicotine dependence
CPT/HCPCS: 70450; 71045; 80048; 84484; 85025; 93005; 99285; J7030; A4216

== ENCOUNTER 2021-02-02 10:23 | Emergency (ER) | payer MEDICAID, SELFPAY ==
[2021-02-02 10:23] VITALS: BP 152/116; PULSE 120; RESP 12; TEMP 36.2; O2SAT 100; BMI 36.3
--- NOTE | 2021-02-02 10:37 | EX.ED.DYSGE1 ---
HPI History of Present Illness Chief Complaint: Hyperglycemia Detail of Chief Complaint: Elevated blood sugar this morning Informant: patient Narrative Narrative: Patient is the emergency department complaint of elevated blood sugar this morning. Patient states that he checked his blood sugar and it was 300 and he had not eaten or drank anything today. Patient went to work and was feeling shaky and numb and tingly and presents for evaluation. Patient is a type II diabetic. Patient has been compliant with his medications. Denies recent illness. Prior similar symptoms: Yes PFSH [facility] Medical History (Updated 02/02/21 @ 12:[address] Meryl Dasilva, DO) Acute cholecystitis Acute gangrenous cholecystitis Asthma Cholecystitis Depression DM2 (diabetes mellitus, type 2) HTN (hypertension) HTN (hypertension) Schizoaffective disorder Seizure SOB (shortness of breath) Super-super obese Home Medications albuterol sulfate 2 puff INHALATION Q6H PRN PRN 10/22/14 [History Last Taken 04/19/19 08:00] cholecalciferol (vitamin D3) 50,000 unit PO QWEEK 10/22/14 [History Last Taken 04/19/19] divalproex 1,500 mg PO QHS 10/22/14 [History Last Taken 04/18/19 22:30] metformin 1,000 mg PO BIDCM 10/22/14 [History Last Taken 04/19/19 08:00] lisinopril 30 mg PO DAILY 03/06/15 [History Last Taken 04/18/19] insulin aspart U-100 6 units SUBCUT TIDCM 11/12/15 [History Last Taken 04/19/19 08:00] duloxetine 30 mg PO DAILY 02/29/16 [History Last Taken 04/19/19 08:00] triamcinolone acetonide 1 applic TOPICAL TID PRN PRN 02/29/16 [History Last Taken 02/23/18] insulin degludec 25 unit SQ BREAKFAST 09/10/17 [History Last Taken 04/19/19 08:00] nadolol 40 mg PO DAILY 09/10/17 [History Last Taken 04/19/19 08:00] diclofenac sodium 1 applic TP 4X/DAY PRN 01/11/18 [History Last Taken 04/08/19] doxepin 25 - 50 mg PO QHS PRN PRN 01/11/18 [History Last Taken 04/18/19 22:30] fluoxetine 40 mg PO DAILY 01/11/18 [History Last Taken 04/19/19 08:00] nortriptyline 10 mg PO QHS 01/11/18 [History Last Taken 04/18/19] nystatin 1 applic TOPICAL 4X/DAY PRN 01/11/18 [History Last Taken 02/23/18] prochlorperazine maleate 10 mg PO Q8H PRN PRN 01/11/18 [History Last Taken 02/23/18] risperidone 1 mg PO BREAKFAST 01/11/18 [History Last Taken 04/19/19] risperidone 2 mg PO QHS 01/11/18 [History Last Taken 02/23/18] mometasone-formoterol 2 puff IH BID 02/17/18 [History Last Taken 04/19/19 08:00] verapamil 40 mg PO TID 02/24/18 [History Last Taken 04/19/19] gabapentin 100 mg PO TID #42 cap 11/27/18 [Rx Last Taken 04/19/19 08:00] ondansetron 4 mg PO Q6H PRN PRN #10 tab 03/11/19 [Rx Last Taken 04/19/19 08:00] promethazine 25 mg PO Q6H PRN PRN #10 tab 04/18/19 [Rx Last Taken Unknown] tizanidine 4 mg PO BID PRN PRN 04/19/19 [History Last Taken Unknown] acetaminophen 325 mg PO Q6H PRN PRN 06/28/19 [History Last Taken Unknown] cetirizine 10 mg PO DAILY 06/28/19 [History Last Taken Unknown] dicyclomine 10 mg PO TIDAC 06/28/19 [History Last Taken Unknown] food supplemt, lactose-reduced 237 ml PO BID 06/28/19 [History Last Taken Unknown] indomethacin 25 mg PO TIDCM 06/28/19 [History Last Taken Unknown] meloxicam 15 mg PO DAILY 06/28/19 [History Last Taken Unknown] omeprazole 20 mg PO BID 06/28/19 [History Last Taken Unknown] sumatriptan succinate 100 mg PO BID PRN 06/28/19 [History Last Taken Unknown] ondansetron 4 mg PO Q8H PRN PRN #10 tab 03/09/20 [Rx Last Taken Unknown] Allergy/AdvReac Type Severity Reaction Status Date / Time hydrocodone bitartrate Allergy Hives Verified 02/02/21 10:26 [From Vicodin] strawberry Allergy Hives Verified 02/02/21 10:26 acetaminophen AdvReac Nausea/hive Verified 02/02/21 10:26 s baclofen AdvReac IT MAKES Verified 02/02/21 10:26 HIM LIGHTHEADED AND SICK lactose AdvReac Nausea Verified 02/02/21 10:26 Penicillins AdvReac Nausea Verified 02/02/21 10:26 COCONUT Allergy Hives Uncoded 02/02/21 10:26 Surgical History History of laparoscopic cholecystectomy (~04/20/19) Social History (Updated 05/06/19 @ 14:56 by Annika GONZALEZ, PA-C) Smoking Status: Former smoker ROS ROS ED ROS Narrative Lightheadedness Constitutional Constitutional ED: Reports systems reviewed and no addt'l complaints, except as documented; Denies body ache(s), change in weight or chills Eyes Eyes: Denies acute decrease in peripheral vision, change in vision, double vision or loss of vision ENT ENT ED: Reports none; Denies ear pain, lip swelling, loss taste/smell, neck pain, otalgia or sore throat Cardiovascular Cardiovascular: Reports none; Denies abdominal pain, chest pain with activity, leg edema, lightheadedness, palpitations, rapid heart rate or syncope Respiratory/Chest Respiratory/Chest: Reports none; Denies change in mental status, dry cough, dyspnea, hemoptysis, shortness of breath at rest or shortness of breath with exertion Gastrointestinal Gastrointestinal: Reports none; Denies abdominal pain, change in stool character, diarrhea, hematemesis, hematochezia, melena, rectal bleeding or vomiting Genitourinary Genitourinary ED: Reports none; Denies abdominal discomfort, anuria, dysuria, genital pain or polyuria Musculoskeletal Musculoskeletal: Reports none; Denies arthralgias, back pain, difficulty walking, extremity pain, muscle weakness or myalgias Integumentary Reports none; Denies abscess or rash Neurologic Neurologic: Reports none and paresthesias; Denies abnormal gait, confusion, focal weakness, frequent falls, headache(s), loss of vision, numbness, radicular pain, vertigo or weakness Psychiatric Psychiatric: Reports systems reviewed and no addt'l complaints, except as documented and none; Denies behavioral changes, confusion, difficulty concentrating, hallucinations, suicidal ideation, tactile hallucinations or visual hallucinations Endocrine Endocrinology: Denies none, cold intolerance, excessive sweating, fatigue or heat intolerance Hematologic/Lymphatic Hematologic/Lymphatic: Reports none; Denies anemia, easy bleeding or easy bruising Allergic/Immunologic Allergic/Immunologic ED: Denies as per HPI, none, lip swelling, mouth swelling, throat swelling, tongue swelling or hives EXAM Physical Exam Const Vital Signs: 02/02/21 10:23 Temperature 97.2 F L Temperature Source Temporal Pulse Rate 120 H Respiratory Rate 12 Blood Pressure 152/116 H Blood Pressure Mean 128 Pulse Ox 100 Oxygen Delivery Method Room Air Positive well nourished and well developed General Appearance ED: well developed and NAD HEENT Reports TM's clear and moist mucous membranes normocephalic and atraumatic; Negative for trauma or tenderness Tympanic Membrane ED: Yes TM's clear Eyes PERRL and EOMs intact bilaterally General Eye ED: Negative for pale conjunctiva or scleral icterus Neck no lymphadenopathy, supple and no JVD General: Negative for tenderness Chest Wall inspection of chest normal and palpation of chest normal Chest: Negative for tenderness Resp normal respiratory effort and clear to auscultation bilaterally Effort and Inspection: Negative for respiratory distress or pain with movement Auscultation: Negative for rhonchi, wheezes or diminished lung sounds Cardio regular rate, regular rhythm, S1 normal heart sound, S2 normal heart sound and no murmurs Peripheral Pulses: pulses 2+ throughout GI normal to inspection, nondistended, normoactive bowel sounds, soft to palpation, non-tender, non-distended and no masses Back/Spine no CVA tenderness and no thoracic nor lumbar tenderness Extremity normal to inspection General Extremety ED: Negative for edema General Extremity: Negative for edema Neuro oriented x3, CN's II-XII intact bilaterally, no sensory deficits noted and gait normal Sensorium / Orientation: awake, alert, oriented to person, oriented to place and oriented to time Motor Exam: strength 5/5 throughout and strength abnormal Psych mental status grossly normal Skin no rashes or lesions noted and no wounds MDM MDM MDM Narrative Medical decision making narrative: Patient's hyperglycemia is mild and at this point no evidence of DKA or HH NK. Patient otherwise looks well. I advised that he monitor his blood sugars closely and take his medications regularly. Patient advised to follow-up with his primary care physician 3 to 5 days. Lab Data Attestation: I reviewed the patient's lab results. Labs: Laboratory Results - last 24 hr 02/02/21 02/02/21 02/02/21 10:34 10:54 10:54 WBC 6.6 RBC 5.54 Hgb 14.4 Hct 44.9 MCV 81.0 MCH 26.0 L MCHC 32.1 RDW Std Deviation 39.4 RDW Coeff of Ferny 13.3 Plt Count 267 MPV 10.8 Immature Gran % (Auto) 0.300 Neut % (Auto) 57.9 Lymph % (Auto) 34.6 [place] % (Auto) 6.0 Eos % (Auto) 0.6 Baso % (Auto) 0.6 Absolute Neuts (auto) 3.8 Absolute Lymphs (auto) 2.29 Nucleated RBC % 0 Sodium 134 L Potassium 3.7 Chloride 104 Carbon Dioxide 25.0 Anion Gap 5 BUN 11 Creatinine 0.98 Estim Creat Clear Calc 93.13 Est GFR (MDRD) Af Amer 110 Est GFR (MDRD) Non-Af 91 BUN/Creatinine Ratio 11.2 Glucose 188 H Calcium 9.5 Acetone Level POC Glucose 201 H 02/02/21 10:54 WBC RBC Hgb Hct MCV MCH MCHC RDW Std Deviation RDW Coeff of Ferny Plt Count MPV Immature Gran % (Auto) Neut % (Auto) Lymph % (Auto) [place] % (Auto) Eos % (Auto) Baso % (Auto) Absolute Neuts (auto) Absolute Lymphs (auto) Nucleated RBC % Sodium Potassium Chloride Carbon Dioxide Anion Gap BUN Creatinine Estim Creat Clear Calc Est GFR (MDRD) Af Amer Est GFR (MDRD) Non-Af BUN/Creatinine Ratio Glucose Calcium Acetone Level NEGATIVE POC Glucose Discharge Plan Triage Chief Complaint: Hyperglycemia ED Provider: Meryl Dasilva Dx/Rx/DC Orders Clinical Impression: Acute hyperglycemia Instructions: High Blood Sugar (Hyperglycemia) Prescriptions: No Action divalproex 500 MG tablet,delayed release (DR/EC) 1,500 mg PO QHS RF: 0 metformin 1,000 MG tablet 1,000 mg PO BIDCM RF: 0 albuterol sulfate 1 PUFF inhaler 2 puff inhalation Q6H PRN PRN (Reason: Sob &/Or Wheezing) RF: 0 cholecalciferol (vitamin D3) 1,000 UNIT tablet 50,000 unit PO QWEEK RF: 0 lisinopril 10 MG tablet 30 mg PO DAILY RF: 0 insulin aspart U-100 100 UNITS/ML insulin pen 6 units subcut TIDCM RF: 0 triamcinolone acetonide 1 APPLIC cream 1 applic topical TID PRN PRN (Reason: YEAST INFECTION) RF: 0 duloxetine 30 MG capsule 30 mg PO DAILY RF: 0 nadolol 20 MG tablet 40 mg PO DAILY RF: 0 insulin degludec 200 UNIT/ML insulin pen 25 unit SQ BREAKFAST RF: 0 nystatin 1 APPLIC ointment 1 applic topical 4X/DAY PRN (Reason: GROIN) RF: 0 doxepin 25 MG capsule 25 - 50 mg PO QHS PRN PRN (Reason: Insomnia) RF: 0 prochlorperazine maleate 10 MG tablet 10 mg PO Q8H PRN PRN (Reason: Migraine Symptoms) RF: 0 risperidone 2 MG tablet 2 mg PO QHS RF: 0 nortriptyline 10 MG capsule 10 mg PO QHS RF: 0 fluoxetine 20 MG capsule 40 mg PO DAILY RF: 0 risperidone 1 MG tablet 1 mg PO BREAKFAST RF: 0 diclofenac sodium 100 GM gel 1 applic TP 4X/DAY PRN (Reason: BACK PAIN) RF: 0 mometasone-formoterol 8.8 GM HFA aerosol inhaler 2 puff IH BID RF: 0 verapamil 80 MG tablet 40 mg PO TID RF: 0 gabapentin 100 MG capsule 100 mg PO TID Qty: 42 RF: 0 ondansetron 4 MG tablet 4 mg PO Q6H PRN PRN (Reason: Nausea) Qty: 10 RF: 0 promethazine 25 MG tablet 25 mg PO Q6H PRN PRN (Reason: Nausea) Qty: 10 RF: 0 tizanidine 4 MG tablet 4 mg PO BID PRN PRN (Reason: Spasms) RF: 0 acetaminophen 325 MG tablet 325 mg PO Q6H PRN PRN (Reason: Headache) RF: 0 sumatriptan succinate 100 MG tablet 100 mg PO BID PRN (Reason: Migraine Symptoms) RF: 0 meloxicam 15 MG tablet 15 mg PO DAILY RF: 0 indomethacin 25 MG capsule 25 mg PO TIDCM RF: 0 omeprazole 20 MG capsule,delayed release(DR/EC) 20 mg PO BID RF: 0 cetirizine 10 MG capsule 10 mg PO DAILY RF: 0 food supplemt, lactose-reduced 237 ML liquid 237 ml PO BID RF: 0 dicyclomine 10 MG capsule 10 mg PO TIDAC RF: 0 ondansetron 4 MG tablet 4 mg PO Q8H PRN PRN (Reason: Nausea) Qty: 10 RF: 0 Primary Care Provider: Ranjit Azar Referrals: Ranjit Azar DO [Primary Care Provider] - 3-5 Days Disposition Disposition: Home, Self Care
[2021-02-02 10:41] LABS: Bedside Glucose 201 mg/dL (70-110)
[2021-02-02] MEDS: 0.9% Normal Saline 1,000 ML 1000 ML IV (10:57)
[2021-02-02 11:02] LABS: Absolute Lymphocyte Count 2.29 X10^3/uL (0.83-4.51); Absolute Neutrophil Count 3.8 X10^3/uL (2.0-7.7); Basophil# 0.04 X10^3/uL; Basophil% 0.6 % (0-1); Eosinophil# 0.04 X10^3/uL; Eosinophils% 0.6 % (0-5); Hematocrit 44.9 % (40-54); Hemoglobin 14.4 g/dL (13.0-16.5); Lymphocyte # 2.29 X10^3/ul (0.83-4.51); Lymphocyte % 34.6 % (19-41); Mean Corp Hgb Conc 32.1 g/dL (32-36); Mean Platelet Vol. 10.8 fl (6.2-12.0); NRBC Flagged by Analyzer 0 % (0-5); Neutrophil # 3.83 X10^3/uL (2.7-7.7); Neutrophil % 57.9 % (47-70); Platelet Count 267 K/mm3 (150-450); RBC Distribution Width CV 13.3 % (11.6-14.6); RBC Distribution Width SD 39.4 fl (35.1-43.9); Red Blood Count 5.54 M/mm3 (4.6-6.2); White Blood Count 6.6 K/mm3 (4.4-11.0)
[2021-02-02 11:16] LABS: Anion Gap 5 (5-15); BUN 11 mg/dL (7-18); BUN/Creat Ratio 11.2 RATIO (10-20); Calcium,Total 9.5 mg/dL (8.5-10.1); Chloride 104 mmol/L (98-107); Creatinine, Serum 0.98 mg/dL (0.70-1.30); EST Glomerular Filtration Rate 91 mL/min (>60); Est Glom Filt Rate - Afr Amer 110 mL/min (>60); Estimated Creatinine Clearance 93.13 ml/min; Glucose 188 mg/dL (74-106); Potassium 3.7 mmol/L (3.5-5.1); Sodium Level 134 mmol/L (136-145)
[2021-02-02 12:25] VITALS: PULSE 81; RESP 16; O2SAT 96
== END 2021-02-02 12:26 | disposition home or self-care (01) ==
PROVIDERS: Emergency Provider Emergency Medicine; PCP Student in an Organized Health Care Education/Training Program
DX: E11.65 Type 2 diabetes mellitus with hyperglycemia (principal); Z87.891 Personal history of nicotine dependence
CPT/HCPCS: 80048; 82009; 82962; 85025; 99284; J7030; A4216

== ENCOUNTER 2021-03-10 09:21 | Emergency (ER) | payer MEDICAID, SELFPAY ==
[2021-03-10 09:22] VITALS: BP 166/114; PULSE 101; RESP 18; TEMP 36.3; O2SAT 100; BMI 36.8
--- NOTE | 2021-03-10 09:47 | EKG12_ITS ---
Test Reason : GEN ILLNESS Blood Pressure : / mmHG Vent. Rate : 087 BPM Atrial Rate : 087 BPM P-R Int : 140 ms QRS Dur : 084 ms QT Int : 352 ms P-R-T Axes : 056 032 019 degrees QTc Int : 423 ms Normal sinus rhythm Normal ECG Confirmed by CHANEL JOSEPH, MILADYS ([id number]), frame nailer COLT LEY ([id number]) on 03/15/2021 10:44:52 AM Referred By: CHARLENE Confirmed By:KEVIN BUCHANAN MD
--- NOTE | 2021-03-10 09:47 | EDS_ITS ---
HPI History of Present Illness Chief Complaint: General Illness Informant: patient Onset/Context/Timing Onset: Weeks Context: Gradual Onset Timing: Waxes and wanes Current Severity: Mild Maximum Severity: Moderate Narrative Narrative: Patient presents with a 2-week history of having episodes of lightheadedness and dizziness. He states overall he feels very weak and has intermittent chest pain with racing heart. He states his episodes happen when he goes to work. He does not feel like he is anxious or under a lot of stress at work. He states when he sits down to take a break symptoms seem to improve. He states that his heart rate will go up to 160. He does have intermittent chest pain with this. [facility] Medical History (Updated 03/10/21 @ 12:[address] Shanelle Lennon MD) Acute cholecystitis Acute gangrenous cholecystitis Asthma Cholecystitis Depression DM2 (diabetes mellitus, type 2) HTN (hypertension) Schizoaffective disorder Seizure SOB (shortness of breath) Home Medications albuterol sulfate 2 puff INHALATION Q6H PRN PRN 10/22/14 [History Last Taken 04/19/19 08:00] cholecalciferol (vitamin D3) 50,000 unit PO QWEEK 10/22/14 [History Last Taken 04/19/19] divalproex 1,500 mg PO QHS 10/22/14 [History Last Taken 04/18/19 22:30] metformin 1,000 mg PO BIDCM 10/22/14 [History Last Taken 04/19/19 08:00] lisinopril 30 mg PO DAILY 03/06/15 [History Last Taken 04/18/19] insulin aspart U-100 6 units SUBCUT TIDCM 11/12/15 [History Last Taken 04/19/19 08:00] duloxetine 30 mg PO DAILY 02/29/16 [History Last Taken 04/19/19 08:00] triamcinolone acetonide 1 applic TOPICAL TID PRN PRN 02/29/16 [History Last Taken 02/23/18] insulin degludec 25 unit SQ BREAKFAST 09/10/17 [History Last Taken 04/19/19 08:00] nadolol 40 mg PO DAILY 09/10/17 [History Last Taken 04/19/19 08:00] diclofenac sodium 1 applic TP 4X/DAY PRN 01/11/18 [History Last Taken 04/08/19] doxepin 25 - 50 mg PO QHS PRN PRN 01/11/18 [History Last Taken 04/18/19 22:30] fluoxetine 40 mg PO DAILY 01/11/18 [History Last Taken 04/19/19 08:00] nortriptyline 10 mg PO QHS 01/11/18 [History Last Taken 04/18/19] nystatin 1 applic TOPICAL 4X/DAY PRN 01/11/18 [History Last Taken 02/23/18] prochlorperazine maleate 10 mg PO Q8H PRN PRN 01/11/18 [History Last Taken 02/23/18] risperidone 1 mg PO BREAKFAST 01/11/18 [History Last Taken 04/19/19] risperidone 2 mg PO QHS 01/11/18 [History Last Taken 02/23/18] mometasone-formoterol 2 puff IH BID 02/17/18 [History Last Taken 04/19/19 08:00] verapamil 40 mg PO TID 02/24/18 [History Last Taken 04/19/19] gabapentin 100 mg PO TID #42 cap 11/27/18 [Rx Last Taken 04/19/19 08:00] ondansetron 4 mg PO Q6H PRN PRN #10 tab 03/11/19 [Rx Last Taken 04/19/19 08:00] promethazine 25 mg PO Q6H PRN PRN #10 tab 04/18/19 [Rx Last Taken Unknown] tizanidine 4 mg PO BID PRN PRN 04/19/19 [History Last Taken Unknown] acetaminophen 325 mg PO Q6H PRN PRN 06/28/19 [History Last Taken Unknown] cetirizine 10 mg PO DAILY 06/28/19 [History Last Taken Unknown] dicyclomine 10 mg PO TIDAC 06/28/19 [History Last Taken Unknown] food supplemt, lactose-reduced 237 ml PO BID 06/28/19 [History Last Taken Unknown] indomethacin 25 mg PO TIDCM 06/28/19 [History Last Taken Unknown] meloxicam 15 mg PO DAILY 06/28/19 [History Last Taken Unknown] omeprazole 20 mg PO BID 06/28/19 [History Last Taken Unknown] sumatriptan succinate 100 mg PO BID PRN 06/28/19 [History Last Taken Unknown] ondansetron 4 mg PO Q8H PRN PRN #10 tab 03/09/20 [Rx Last Taken Unknown] Allergy/AdvReac Type Severity Reaction Status Date / Time hydrocodone bitartrate Allergy Hives Verified 03/10/21 09:24 [From Vicodin] strawberry Allergy Hives Verified 03/10/21 09:24 acetaminophen AdvReac Nausea/hive Verified 03/10/21 09:24 s baclofen AdvReac IT MAKES Verified 03/10/21 09:24 HIM LIGHTHEADED AND SICK lactose AdvReac Nausea Verified 03/10/21 09:24 Penicillins AdvReac Nausea Verified 03/10/21 09:24 COCONUT Allergy Hives Uncoded 03/10/21 09:24 Surgical History History of laparoscopic cholecystectomy (~04/20/19) Social History Smoking Status: Former smoker ROS ROS ED Constitutional Constitutional ED: Denies chills or fever(s) Eyes Eyes: Denies change in vision ENT ENT ED: Denies sore throat Cardiovascular Cardiovascular: Reports chest pain, palpitations and racing heartbeat Respiratory/Chest Respiratory/Chest: Denies cough or dyspnea Gastrointestinal Gastrointestinal: Denies abdominal pain, diarrhea, nausea or vomiting Genitourinary Genitourinary ED: Denies dysuria Musculoskeletal Musculoskeletal: Denies back pain Integumentary Denies rash Neurologic Neurologic: Reports other Details: Lightheaded and dizzy ; Denies headache(s) or weakness Psychiatric Psychiatric: Denies anxiety or depression Allergic/Immunologic Allergic/Immunologic ED: Denies urticaria EXAM Physical Exam Const Vital Signs: 03/10/21 09:22 03/10/21 10:11 Temperature 97.3 F L Temperature Source Temporal Pulse Rate 101 H Respiratory Rate 18 Respiratory Effort Normal Blood Pressure 166/114 H Blood Pressure Mean 131 Pulse Ox 100 Oxygen Delivery Method Room Air Positive well nourished and well developed General Appearance ED: well developed HEENT Reports normocephalic and head/scalp atraumatic Eyes PERRL and EOMs intact bilaterally Neck supple Chest Wall inspection of chest normal and palpation of chest normal Resp normal respiratory effort and clear to auscultation bilaterally Cardio regular rate and regular rhythm GI normal to inspection, nondistended, normoactive bowel sounds and non-tender Palpation: soft Extremity normal to inspection Neuro oriented x3 and no sensory deficits noted Sensorium / Orientation: alert Motor Exam: strength 5/5 throughout Psych mental status grossly normal Skin no rashes or lesions noted MDM MDM MDM Narrative Medical decision making narrative: EKG, lab work, chest x-ray obtained. Lab Data Attestation: I reviewed the patient's lab results. Labs: Laboratory Results - last 24 hr 03/10/21 03/10/21 03/10/21 10:20 10:20 10:20 WBC 6.1 RBC 5.35 Hgb 14.1 Hct 44.1 MCV 82.4 MCH 26.4 L MCHC 32.0 RDW Std Deviation 39.0 RDW Coeff of Ferny 13.1 Plt Count 281 MPV 10.5 Immature Gran % (Auto) 0.500 Neut % (Auto) 56.6 Lymph % (Auto) 33.8 [place] % (Auto) 7.0 Eos % (Auto) 1.3 Baso % (Auto) 0.8 Absolute Neuts (auto) 3.5 Absolute Lymphs (auto) 2.07 Nucleated RBC % 0 D-Dimer Quant (PE/DVT) 0.38 Sodium 139 Potassium 4.0 Chloride 105 Carbon Dioxide 28.0 Anion Gap 6 BUN 10 Creatinine 0.95 Estim Creat Clear Calc 96.07 Est GFR (MDRD) Af Amer 115 Est GFR (MDRD) Non-Af 95 BUN/Creatinine Ratio 10.5 Glucose 167 H Calcium 9.5 Troponin I High Sens 7 TSH 1.06 Radiography Diagnostic Testing: Radiology Impression Chest X-Ray 03/10/21 10:34 IMPRESSION: Bibasilar atelectasis versus early infiltrates. Electronically Signed: Gama Penn MD ([place]) at 11:07 EDT , Service support , EKG Initial EKG: Attestation: I personally reviewed and interpreted this EKG as follows: Interpretation: Sinus Rhythm (Sinus 87 with no acute ischemia.) Treatment and Re-Evaluation Comments:: Patient has had no arrhythmias on cardiac catheterization technologist while here. EKG is unremarkable. Portable chest x-ray per my interpretation was chronic changes only. Radiologist interpretation is reviewed. Lab work is unremarkable. I did discuss with the patient the possibility of setting him up for a Holter monitor. He states he believes he just turned something like that in. I spoke with his primary care doctor and she states that they actually did just get a report back from a Holter monitor today. His maximum heart rate was 164 with no arrhy thmias. She advised to ensure the patient is hydrating well and she will make a note to have him follow-up. Patient is discharged with supportive care instructions. Discharge Plan Triage Chief Complaint: General Illness ED Provider: Shanelle Lennon Dx/Rx/DC Orders Clinical Impression: Dizziness Instructions: ED Dizziness, Uncertain Cause Prescriptions: No Action divalproex 500 MG tablet,delayed release (DR/EC) 1,500 mg PO QHS RF: 0 metformin 1,000 MG tablet 1,000 mg PO BIDCM RF: 0 albuterol sulfate 1 PUFF inhaler 2 puff inhalation Q6H PRN PRN (Reason: Sob &/Or Wheezing) RF: 0 cholecalciferol (vitamin D3) 1,000 UNIT tablet 50,000 unit PO QWEEK RF: 0 lisinopril 10 MG tablet 30 mg PO DAILY RF: 0 insulin aspart U-100 100 UNITS/ML insulin pen 6 units subcut TIDCM RF: 0 triamcinolone acetonide 1 APPLIC cream 1 applic topical TID PRN PRN (Reason: YEAST INFECTION) RF: 0 duloxetine 30 MG capsule 30 mg PO DAILY RF: 0 nadolol 20 MG tablet 40 mg PO DAILY RF: 0 insulin degludec 200 UNIT/ML insulin pen 25 unit SQ BREAKFAST RF: 0 nystatin 1 APPLIC ointment 1 applic topical 4X/DAY PRN (Reason: GROIN) RF: 0 doxepin 25 MG capsule 25 - 50 mg PO QHS PRN PRN (Reason: Insomnia) RF: 0 prochlorperazine maleate 10 MG tablet 10 mg PO Q8H PRN PRN (Reason: Migraine Symptoms) RF: 0 risperidone 2 MG tablet 2 mg PO QHS RF: 0 nortriptyline 10 MG capsule 10 mg PO QHS RF: 0 fluoxetine 20 MG capsule 40 mg PO DAILY RF: 0 risperidone 1 MG tablet 1 mg PO BREAKFAST RF: 0 diclofenac sodium 100 GM gel 1 applic TP 4X/DAY PRN (Reason: BACK PAIN) RF: 0 mometasone-formoterol 8.8 GM HFA aerosol inhaler 2 puff IH BID RF: 0 verapamil 80 MG tablet 40 mg PO TID RF: 0 gabapentin 100 MG capsule 100 mg PO TID Qty: 42 RF: 0 ondansetron 4 MG tablet 4 mg PO Q6H PRN PRN (Reason: Nausea) Qty: 10 RF: 0 promethazine 25 MG tablet 25 mg PO Q6H PRN PRN (Reason: Nausea) Qty: 10 RF: 0 tizanidine 4 MG tablet 4 mg PO BID PRN PRN (Reason: Spasms) RF: 0 acetaminophen 325 MG tablet 325 mg PO Q6H PRN PRN (Reason: Headache) RF: 0 sumatriptan succinate 100 MG tablet 100 mg PO BID PRN (Reason: Migraine Symptoms) RF: 0 meloxicam 15 MG tablet 15 mg PO DAILY RF: 0 indomethacin 25 MG capsule 25 mg PO TIDCM RF: 0 omeprazole 20 MG capsule,delayed release(DR/EC) 20 mg PO BID RF: 0 cetirizine 10 MG capsule 10 mg PO DAILY RF: 0 food supplemt, lactose-reduced 237 ML liquid 237 ml PO BID RF: 0 dicyclomine 10 MG capsule 10 mg PO TIDAC RF: 0 ondansetron 4 MG tablet 4 mg PO Q8H PRN PRN (Reason: Nausea) Qty: 10 RF: 0 Primary Care Provider: Ranjit Azar Referrals: Ranjit Azar DO [Primary Care Provider] - 1-2 Weeks Disposition Disposition: Home, Self Care
--- NOTE | 2021-03-10 10:34 | RAD_ITS ---
STUDY: X-RAY CHEST REASON FOR EXAM: Male, 35 years old. cp TECHNIQUE: AP COMPARISON: Prior comparison studies are not available for review at this time. FINDINGS: EKG leads project over the chest. Lungs are underexpanded with mild bronchovascular attenuation in the lung bases, right more than left. There is no demonstrated pleural abnormality. Normal size heart. Normal mediastinum and alanis. Normal visualized pulmonary arteries. Normal visualized aortic arch and descending thoracic aorta. Normal visualized thoracic spine. Normal visualized ribs, clavicles, and shoulders. There is no demonstrated abnormality of the visualized soft tissue structures of the upper abdomen. RAD/Chest 1 View (Portable) IMPRESSION: Bibasilar atelectasis versus early infiltrates. Electronically Signed: Gama Penn MD ([place]) at 11:07 EDT , Service support ,
[2021-03-10 10:41] LABS: Absolute Lymphocyte Count 2.07 X10^3/uL (0.83-4.51); Absolute Neutrophil Count 3.5 X10^3/uL (2.0-7.7); Basophil# 0.05 X10^3/uL; Basophil% 0.8 % (0-1); Eosinophil# 0.08 X10^3/uL; Eosinophils% 1.3 % (0-5); Hematocrit 44.1 % (40-54); Hemoglobin 14.1 g/dL (13.0-16.5); Lymphocyte # 2.07 X10^3/ul (0.83-4.51); Lymphocyte % 33.8 % (19-41); Mean Corpuscular Hgb 26.4 pg (27.0-32.0); Mean Corpuscular Volume 82.4 fL (80-94); Mean Platelet Vol. 10.5 fl (6.2-12.0); Monocyte# 0.43 X10^3/uL; NRBC Flagged by Analyzer 0 % (0-5); Neutrophil # 3.46 X10^3/uL (2.7-7.7); Neutrophil % 56.6 % (47-70); Platelet Count 281 K/mm3 (150-450); RBC Distribution Width CV 13.1 % (11.6-14.6); Red Blood Count 5.35 M/mm3 (4.6-6.2); White Blood Count 6.1 K/mm3 (4.4-11.0)
[2021-03-10 11:00] VITALS: BP 149/105; PULSE 83; RESP 16; O2SAT 100
[2021-03-10 11:07] LABS: Anion Gap 6 (5-15); BUN 10 mg/dL (7-18); BUN/Creat Ratio 10.5 RATIO (10-20); Calcium,Total 9.5 mg/dL (8.5-10.1); Chloride 105 mmol/L (98-107); Creatinine, Serum 0.95 mg/dL (0.70-1.30); EST Glomerular Filtration Rate 95 mL/min (>60); Est Glom Filt Rate - Afr Amer 115 mL/min (>60); Estimated Creatinine Clearance 96.07 ml/min; Glucose 167 mg/dL (74-106); Sodium Level 139 mmol/L (136-145); Thyroid Stim Hormone (TSH) 1.06 uIU/mL (0.358-3.74); Troponin-I HS 7 pg/mL (3.0-78.0)
[2021-03-10 11:14] LABS: D-Dimer Quantitative (DVT/PE) 0.38 FEU/ug/m (0.27-0.49)
--- NOTE | 2021-03-10 11:55 | NURSING ---
DR PARRA ON PAGE THROUGH HER OFFICE
== END 2021-03-10 13:08 | disposition home or self-care (01) ==
PROVIDERS: Emergency Provider Emergency Medicine; PCP Student in an Organized Health Care Education/Training Program
DX: R42 Dizziness and giddiness (principal); R07.9 Chest pain, unspecified; E11.9 Type 2 diabetes mellitus without complications; I10 Essential (primary) hypertension; R56.9 Unspecified convulsions; J45.909 Unspecified asthma, uncomplicated; F25.9 Schizoaffective disorder, unspecified; F32.A Depression, unspecified; Z79.4 Long term (current) use of insulin; Z79.1 Long term (current) use of non-steroidal anti-inflammatories (NSAID); Z79.51 Long term (current) use of inhaled steroids; Z79.899 Other long term (current) drug therapy; Z87.891 Personal history of nicotine dependence
CPT/HCPCS: 71045; 80048; 84443; 84484; 85025; 85379; 93005; 99285; A4216

== ENCOUNTER 2021-04-22 14:39 | Emergency (ER) | payer MEDICAID, SELFPAY ==
[2021-04-22 14:40] VITALS: BP 157/104; PULSE 110; RESP 14; TEMP 36.7; O2SAT 97; BMI 38.6
[2021-04-22 14:50] VITALS: BP 168/109; PULSE 113; RESP 18; O2SAT 100
--- NOTE | 2021-04-22 14:53 | EX.ED.GENINJ ---
HPI History of Present Illness Chief Complaint: Back Detail of Chief Complaint: Fall with injury to back and left ankle Informant: patient Onset/Context/Timing Onset: Today Narrative Narrative: Patient presents to the emergency department after sustaining a fall this morning. Patient states that he fell down the steps in his home. Patient went down about 10 wooden steps. Patient states he fell onto his left side. Patient try to go to work but then was told to come in and get checked out. He has been ambulatory. He denies direct in his head. No loss of consciousness. He denies neck pain, chest pain, or abdomen pain. Most of the pain is located in his low back and states that he already has back issues. [facility] Medical History (Updated 04/22/21 @ 15:[address] Meryl Dasilva DO) Acute cholecystitis Acute gangrenous cholecystitis Asthma Cholecystitis Depression DM2 (diabetes mellitus, type 2) HTN (hypertension) Schizoaffective disorder Seizure SOB (shortness of breath) Home Medications albuterol sulfate 2 puff INHALATION Q6H PRN PRN 10/22/14 [History Last Taken 04/19/19 08:00] cholecalciferol (vitamin D3) 50,000 unit PO QWEEK 10/22/14 [History Last Taken 04/19/19] divalproex 1,500 mg PO QHS 10/22/14 [History Last Taken 04/18/19 22:30] metformin 1,000 mg PO BIDCM 10/22/14 [History Last Taken 04/19/19 08:00] lisinopril 30 mg PO DAILY 03/06/15 [History Last Taken 04/18/19] insulin aspart U-100 6 units SUBCUT TIDCM 11/12/15 [History Last Taken 04/19/19 08:00] duloxetine 30 mg PO DAILY 02/29/16 [History Last Taken 04/19/19 08:00] triamcinolone acetonide 1 applic TOPICAL TID PRN PRN 02/29/16 [History Last Taken 02/23/18] insulin degludec 25 unit SQ BREAKFAST 09/10/17 [History Last Taken 04/19/19 08:00] nadolol 40 mg PO DAILY 09/10/17 [History Last Taken 04/19/19 08:00] diclofenac sodium 1 applic TP 4X/DAY PRN 01/11/18 [History Last Taken 04/08/19] doxepin 25 - 50 mg PO QHS PRN PRN 01/11/18 [History Last Taken 04/18/19 22:30] fluoxetine 40 mg PO DAILY 01/11/18 [History Last Taken 04/19/19 08:00] nortriptyline 10 mg PO QHS 01/11/18 [History Last Taken 04/18/19] nystatin 1 applic TOPICAL 4X/DAY PRN 01/11/18 [History Last Taken 02/23/18] prochlorperazine maleate 10 mg PO Q8H PRN PRN 01/11/18 [History Last Taken 02/23/18] risperidone 1 mg PO BREAKFAST 01/11/18 [History Last Taken 04/19/19] risperidone 2 mg PO QHS 01/11/18 [History Last Taken 02/23/18] mometasone-formoterol 2 puff IH BID 02/17/18 [History Last Taken 04/19/19 08:00] verapamil 40 mg PO TID 02/24/18 [History Last Taken 04/19/19] gabapentin 100 mg PO TID #42 cap 11/27/18 [Rx Last Taken 04/19/19 08:00] ondansetron 4 mg PO Q6H PRN PRN #10 tab 03/11/19 [Rx Last Taken 04/19/19 08:00] promethazine 25 mg PO Q6H PRN PRN #10 tab 04/18/19 [Rx Last Taken Unknown] tizanidine 4 mg PO BID PRN PRN 04/19/19 [History Last Taken Unknown] acetaminophen 325 mg PO Q6H PRN PRN 06/28/19 [History Last Taken Unknown] cetirizine 10 mg PO DAILY 06/28/19 [History Last Taken Unknown] dicyclomine 10 mg PO TIDAC 06/28/19 [History Last Taken Unknown] food supplemt, lactose-reduced 237 ml PO BID 06/28/19 [History Last Taken Unknown] indomethacin 25 mg PO TIDCM 06/28/19 [History Last Taken Unknown] meloxicam 15 mg PO DAILY 06/28/19 [History Last Taken Unknown] omeprazole 20 mg PO BID 06/28/19 [History Last Taken Unknown] sumatriptan succinate 100 mg PO BID PRN 06/28/19 [History Last Taken Unknown] ondansetron 4 mg PO Q8H PRN PRN #10 tab 03/09/20 [Rx Last Taken Unknown] naproxen 500 mg PO BID #14 tab 04/22/21 [Rx Last Taken Unknown] Allergy/AdvReac Type Severity Reaction Status Date / Time hydrocodone bitartrate Allergy Hives Verified 04/22/21 14:40 [From Vicodin] strawberry Allergy Hives Verified 04/22/21 14:40 acetaminophen AdvReac Nausea/hive Verified 04/22/21 14:40 s baclofen AdvReac IT MAKES Verified 04/22/21 14:40 HIM LIGHTHEADED AND SICK lactose AdvReac Nausea Verified 04/22/21 14:40 Penicillins AdvReac Nausea Verified 04/22/21 14:40 COCONUT Allergy Hives Uncoded 04/22/21 14:40 Surgical History History of laparoscopic cholecystectomy (~04/20/19) Social History Smoking Status: Former smoker ROS ROS ED Constitutional Constitutional ED: Reports systems reviewed and no addt'l complaints, except as documented; Denies body ache(s), change in weight or chills Eyes Eyes: Denies acute decrease in peripheral vision, change in vision, double vision or loss of vision ENT ENT ED: Reports none; Denies ear pain, lip swelling, loss taste/smell, neck pain, otalgia or sore throat Cardiovascular Cardiovascular: Reports none; Denies abdominal pain, chest pain with activity, leg edema, lightheadedness, palpitations, rapid heart rate or syncope Respiratory/Chest Respiratory/Chest: Reports none; Denies change in mental status, dry cough, dyspnea, hemoptysis, shortness of breath at rest or shortness of breath with exertion Gastrointestinal Gastrointestinal: Reports none; Denies abdominal pain, change in stool character, diarrhea, hematemesis, hematochezia, melena, rectal bleeding or vomiting Genitourinary Genitourinary ED: Reports none; Denies abdominal discomfort, anuria, dysuria, genital pain or polyuria Musculoskeletal Musculoskeletal: Reports none, back pain and other Details: Ankle pain ; Denies arthralgias, difficulty walking, extremity pain, muscle weakness or myalgias Integumentary Reports none; Denies abscess or rash Neurologic Neurologic: Reports none; Denies abnormal gait, confusion, focal weakness, frequent falls, headache(s), loss of vision, numbness, paresthesias, radicular pain, vertigo or weakness Psychiatric Psychiatric: Reports systems reviewed and no addt'l complaints, except as documented and none; Denies behavioral changes, confusion, difficulty concentrating, hallucinations, suicidal ideation, tactile hallucinations or visual hallucinations Endocrine Endocrinology: Denies none, cold intolerance, excessive sweating, fatigue or heat intolerance Hematologic/Lymphatic Hematologic/Lymphatic: Reports none; Denies anemia, easy bleeding or easy bruising Allergic/Immunologic Allergic/Immunologic ED: Denies as per HPI, none, lip swelling, mouth swelling, throat swelling, tongue swelling or hives EXAM Physical Exam Const Vital Signs: 04/22/21 14:40 04/22/21 14:50 Temperature 98.1 F Temperature Source Temporal Pulse Rate 110 H 113 H Respiratory Rate 14 18 Blood Pressure 157/104 H 168/109 H Blood Pressure Mean 121 128 Pulse Ox 97 100 Oxygen Delivery Method Room Air Room Air Positive well nourished and well developed General Appearance ED: well developed and NAD HEENT Reports TM's clear and moist mucous membranes normocephalic and atraumatic; Negative for trauma or tenderness Tympanic Membrane ED: Yes TM's clear Eyes PERRL and EOMs intact bilaterally General Eye ED: Negative for pale conjunctiva or scleral icterus Neck no lymphadenopathy, supple and no JVD General: Negative for tenderness Chest Wall inspection of chest normal and palpation of chest normal Chest: Negative for tenderness Resp normal respiratory effort and clear to auscultation bilaterally Effort and Inspection: Negative for respiratory distress or pain with movement Auscultation: Negative for rhonchi, wheezes or diminished lung sounds Cardio regular rate, regular rhythm, S1 normal heart sound, S2 normal heart sound and no murmurs Peripheral Pulses: pulses 2+ throughout GI normal to inspection, nondistended, normoactive bowel sounds, soft to palpation, non-tender, non-distended and no masses Back/Spine no CVA tenderness and no thoracic nor lumbar tenderness Back/Spine Narrative: Tenderness palpation over the lumbar spine diffusely. There is no ecchymosis or bruising noted. No external evidence of trauma to the skin. No bony step-offs noted. He has negative straight leg raises. Deep tendon reflexes are plus 2 out of 4 bilaterally at the patella and Achilles. Patient has normal 5 extension to light touch bilaterally. Extremity Extremity Narrative: Evaluation of left ankle reveals some tenderness palpation over the medial malleolus. There is no ecchymosis or bruising. There is no soft tissue swelling noted. He is neurovascular intact. No obvious deformity. Evaluation of the right ankle reveals no significant tenderness on exam. There is no external evidence of trauma. No deformity. General Extremety ED: Negative for edema General Extremity: Negative for edema Neuro oriented x3, CN's II-XII intact bilaterally, no sensory deficits noted and gait normal Sensorium / Orientation: awake, alert, oriented to person, oriented to place and oriented to time Motor Exam: strength 5/5 throughout and strength abnormal Psych mental status grossly normal Skin no rashes or lesions noted and no wounds MDM MDM MDM Narrative Medical decision making narrative: Patient was given an air splint. He will be given a prescription for Naprosyn. Patient is to follow-up with his primary care physician in 5 to 7 days. Patient to return to ER if pain radiating down legs or weakness to the extremities or change in bowel or bladder function or condition should worsen anyway. Radiography Diagnostic Testing: Three-view x-rays left ankle obtained interpreted by myself as no acute fractures or dislocations. Radiology report pending. Three-view x-rays of lumbar spine obtained interpreted by myself as no acute fractures or dislocations. Official report from radiology pending. Discharge Plan Triage Chief Complaint: Back ED Provider: Meryl Dasilva Dx/Rx/DC Orders Clinical Impression: Contusion of back, Left ankle sprain, Fall Prescriptions: New naproxen 500 MG tablet 500 mg PO BID Qty: 14 RF: 0 No Action divalproex 500 MG tablet,delayed release (DR/EC) 1,500 mg PO QHS RF: 0 metformin 1,000 MG tablet 1,000 mg PO BIDCM RF: 0 albuterol sulfate 1 PUFF inhaler 2 puff inhalation Q6H PRN PRN (Reason: Sob &/Or Wheezing) RF: 0 cholecalciferol (vitamin D3) 1,000 UNIT tablet 50,000 unit PO QWEEK RF: 0 lisinopril 10 MG tablet 30 mg PO DAILY RF: 0 insulin aspart U-100 100 UNITS/ML insulin pen 6 units subcut TIDCM RF: 0 triamcinolone acetonide 1 APPLIC cream 1 applic topical TID PRN PRN (Reason: YEAST INFECTION) RF: 0 duloxetine 30 MG capsule 30 mg PO DAILY RF: 0 nadolol 20 MG tablet 40 mg PO DAILY RF: 0 insulin degludec 200 UNIT/ML insulin pen 25 unit SQ BREAKFAST RF: 0 nystatin 1 APPLIC ointment 1 applic topical 4X/DAY PRN (Reason: GROIN) RF: 0 doxepin 25 MG capsule 25 - 50 mg PO QHS PRN PRN (Reason: Insomnia) RF: 0 prochlorperazine maleate 10 MG tablet 10 mg PO Q8H PRN PRN (Reason: Migraine Symptoms) RF: 0 risperidone 2 MG tablet 2 mg PO QHS RF: 0 nortriptyline 10 MG capsule 10 mg PO QHS RF: 0 fluoxetine 20 MG capsule 40 mg PO DAILY RF: 0 risperidone 1 MG tablet 1 mg PO BREAKFAST RF: 0 diclofenac sodium 100 GM gel 1 applic TP 4X/DAY PRN (Reason: BACK PAIN) RF: 0 mometasone-formoterol 8.8 GM HFA aerosol inhaler 2 puff IH BID RF: 0 verapamil 80 MG tablet 40 mg PO TID RF: 0 gabapentin 100 MG capsule 100 mg PO TID Qty: 42 RF: 0 ondansetron 4 MG tablet 4 mg PO Q6H PRN PRN (Reason: Nausea) Qty: 10 RF: 0 promethazine 25 MG tablet 25 mg PO Q6H PRN PRN (Reason: Nausea) Qty: 10 RF: 0 tizanidine 4 MG tablet 4 mg PO BID PRN PRN (Reason: Spasms) RF: 0 acetaminophen 325 MG tablet 325 mg PO Q6H PRN PRN (Reason: Headache) RF: 0 sumatriptan succinate 100 MG tablet 100 mg PO BID PRN (Reason: Migraine Symptoms) RF: 0 meloxicam 15 MG tablet 15 mg PO DAILY RF: 0 indomethacin 25 MG capsule 25 mg PO TIDCM RF: 0 omeprazole 20 MG capsule,delayed release(DR/EC) 20 mg PO BID RF: 0 cetirizine 10 MG capsule 10 mg PO DAILY RF: 0 food supplemt, lactose-reduced 237 ML liquid 237 ml PO BID RF: 0 dicyclomine 10 MG capsule 10 mg PO TIDAC RF: 0 ondansetron 4 MG tablet 4 mg PO Q8H PRN PRN (Reason: Nausea) Qty: 10 RF: 0 Primary Care Provider: Ranjit Azar Referrals: Ranjit Azar DO [Primary Care Provider] - 5-7 Days Disposition Disposition: Home, Self Care
--- NOTE | 2021-04-22 15:15 | RAD_ITS ---
STUDY: X-RAY - LUMBAR SPINE REASON FOR EXAM: Male, 35 years old. injury TECHNIQUE: 3 view(s) of the lumbar spine were obtained. COMPARISON: 07/29/2017 FINDINGS: Normal lumbar lordosis. There is no substantial scoliosis. There is a normal alignment of the vertebrae. Normal vertebral bodies and endplates. Normal disc space heights. The soft tissue structures are unremarkable. RAD/Lumbar Spine 2 or 3 Views IMPRESSION: Normal x-ray examination of the lumbar spine. Electronically Signed: Jose Luis Joiner MD at 15:38 EST Tel , Service support ,
--- NOTE | 2021-04-22 15:15 | RAD_ITS ---
STUDY: X-RAY - LEFT ANKLE REASON FOR EXAM: Male, 35 years old. injury TECHNIQUE: 3 view(s) of the ankle. COMPARISON: None. FINDINGS: Normal visualized distal tibia and fibula. Normal medial and lateral malleoli. Normal tibiotalar articulation and ankle mortise. Normal visualized talus and calcaneus. The visualized subtalar, talonavicular, calcaneocuboid and tarsal articulations are normal. The soft tissue structures are unremarkable. RAD/Ankle min 3 Views IMPRESSION: Normal x-ray examination of the ankle. Electronically Signed: Jose Luis Joiner MD at 15:38 EST Tel , Service support ,
[2021-04-22 15:41] VITALS: BP 147/87; PULSE 88; RESP 18; O2SAT 99
== END 2021-04-22 15:53 | disposition home or self-care (01) ==
PROVIDERS: Emergency Provider Emergency Medicine; PCP Student in an Organized Health Care Education/Training Program
DX: S93.402A Sprain of unspecified ligament of left ankle, initial encounter (principal); S30.0XXA Contusion of lower back and pelvis, initial encounter; W10.9XXA Fall (on) (from) unspecified stairs and steps, initial encounter; Y93.9 Activity, unspecified; Y92.009 Unspecified place in unspecified non-institutional (private) residence as the place of occurrence of the external cause; Y99.9 Unspecified external cause status; J45.909 Unspecified asthma, uncomplicated; E11.9 Type 2 diabetes mellitus without complications; I10 Essential (primary) hypertension; F25.9 Schizoaffective disorder, unspecified; F32.A Depression, unspecified; Z79.4 Long term (current) use of insulin; Z79.51 Long term (current) use of inhaled steroids; Z79.1 Long term (current) use of non-steroidal anti-inflammatories (NSAID); Z79.899 Other long term (current) drug therapy; Z87.891 Personal history of nicotine dependence; Z90.49 Acquired absence of other specified parts of digestive tract
CPT/HCPCS: 72100; 73610; 99283

== ENCOUNTER 2021-07-14 11:20 | Emergency (ER) | payer MEDICAID, SELFPAY ==
[2021-07-14 11:21] VITALS: BP 147/106; PULSE 108; RESP 18; TEMP 36.4; O2SAT 100; BMI 38.2
--- NOTE | 2021-07-14 12:09 | EX.ED.DYSGE1 ---
HPI History of Present Illness Chief Complaint: Back Informant: patient Narrative Narrative: Patient came in for multiple complaints. Triage note mentions back pain at work. But he states he gets that about 3 times a week. The his back will spasm and hurt. He has chronic pain in his back. He has chronic pain in lower extremities. He has chronic numbness in the right foot. He has a chronic foot drop on the left and uses an ankle-foot orthotic. He did not do anything today. But he did get spasm of his back. It is a little bit better now but it still bad. However, patient states because he had multiple of his medical conditions all act up at the same time today is why he came in. He commonly has a couple of them act up but once but not more of them. He had an episode at work where he got short of breath and he had to think his way through it and it is now resolved. He states this was his asthma acting up. He also had a migraine at work although it is getting better now. This was his 2nd medical problem that acted up. He also noted that his blood sugar went from about 240 down to 107 for no reason. This was his diabetes acting up. He then got back spasm and leg pain and it was concerning because this was his 4th medical system that was acting up in a short period of time. All of them are doing a bit better now. He was just concerned because he normally only gets a couple medical systems acting up. He was feeling fine prior to this. He is feeling better now although he still has some of the back spasm. [facility] Medical History Acute cholecystitis Acute gangrenous cholecystitis Asthma Cholecystitis Depression DM2 (diabetes mellitus, type 2) HTN (hypertension) Schizoaffective disorder Seizure SOB (shortness of breath) Home Medications albuterol sulfate 2 puff INHALATION Q6H PRN PRN 10/22/14 [History Last Taken 04/19/19 08:00] cholecalciferol (vitamin D3) 50,000 unit PO QWEEK 10/22/14 [History Last Taken 04/19/19] divalproex 1,500 mg PO QHS 10/22/14 [History Last Taken 04/18/19 22:30] metformin 1,000 mg PO BIDCM 10/22/14 [History Last Taken 04/19/19 08:00] lisinopril 30 mg PO DAILY 03/06/15 [History Last Taken 04/18/19] insulin aspart U-100 6 units SUBCUT TIDCM 11/12/15 [History Last Taken 04/19/19 08:00] duloxetine 30 mg PO DAILY 02/29/16 [History Last Taken 04/19/19 08:00] triamcinolone acetonide 1 applic TOPICAL TID PRN PRN 02/29/16 [History Last Taken 02/23/18] insulin degludec 25 unit SQ BREAKFAST 09/10/17 [History Last Taken 04/19/19 08:00] nadolol 40 mg PO DAILY 09/10/17 [History Last Taken 04/19/19 08:00] diclofenac sodium 1 applic TP 4X/DAY PRN 01/11/18 [History Last Taken 04/08/19] doxepin 25 - 50 mg PO QHS PRN PRN 01/11/18 [History Last Taken 04/18/19 22:30] fluoxetine 40 mg PO DAILY 01/11/18 [History Last Taken 04/19/19 08:00] nortriptyline 10 mg PO QHS 01/11/18 [History Last Taken 04/18/19] nystatin 1 applic TOPICAL 4X/DAY PRN 01/11/18 [History Last Taken 02/23/18] prochlorperazine maleate 10 mg PO Q8H PRN PRN 01/11/18 [History Last Taken 02/23/18] risperidone 1 mg PO BREAKFAST 01/11/18 [History Last Taken 04/19/19] risperidone 2 mg PO QHS 01/11/18 [History Last Taken 02/23/18] mometasone-formoterol 2 puff IH BID 02/17/18 [History Last Taken 04/19/19 08:00] verapamil 40 mg PO TID 02/24/18 [History Last Taken 04/19/19] gabapentin 100 mg PO TID #42 cap 11/27/18 [Rx Last Taken 04/19/19 08:00] ondansetron 4 mg PO Q6H PRN PRN #10 tab 03/11/19 [Rx Last Taken 04/19/19 08:00] promethazine 25 mg PO Q6H PRN PRN #10 tab 04/18/19 [Rx Last Taken Unknown] tizanidine 4 mg PO BID PRN PRN 04/19/19 [History Last Taken Unknown] acetaminophen 325 mg PO Q6H PRN PRN 06/28/19 [History Last Taken Unknown] cetirizine 10 mg PO DAILY 06/28/19 [History Last Taken Unknown] dicyclomine 10 mg PO TIDAC 06/28/19 [History Last Taken Unknown] food supplemt, lactose-reduced 237 ml PO BID 06/28/19 [History Last Taken Unknown] indomethacin 25 mg PO TIDCM 06/28/19 [History Last Taken Unknown] meloxicam 15 mg PO DAILY 06/28/19 [History Last Taken Unknown] omeprazole 20 mg PO BID 06/28/19 [History Last Taken Unknown] sumatriptan succinate 100 mg PO BID PRN 06/28/19 [History Last Taken Unknown] ondansetron 4 mg PO Q8H PRN PRN #10 tab 03/09/20 [Rx Last Taken Unknown] naproxen 500 mg PO BID #14 tab 04/22/21 [Rx Last Taken Unknown] orphenadrine citrate 100 mg PO BID PRN #7 tab 07/14/21 [Rx Last Taken Unknown] Allergy/AdvReac Type Severity Reaction Status Date / Time hydrocodone bitartrate Allergy Hives Verified 07/14/21 11:24 [From Vicodin] strawberry Allergy Hives Verified 07/14/21 11:24 acetaminophen AdvReac Nausea/hive Verified 07/14/21 11:24 s baclofen AdvReac IT MAKES Verified 07/14/21 11:24 HIM LIGHTHEADED AND SICK lactose AdvReac Nausea Verified 07/14/21 11:24 Penicillins AdvReac Nausea Verified 07/14/21 11:24 COCONUT Allergy Hives Uncoded 07/14/21 11:24 Surgical History History of laparoscopic cholecystectomy (~04/20/19) Social History Smoking Status: Former smoker ROS ROS ED Constitutional Constitutional ED: Denies chills or fever(s) Eyes Eyes: Denies blurry vision, change in vision or diplopia ENT ENT ED: Denies rhinorrhea or sore throat Cardiovascular Cardiovascular: Denies chest pain Respiratory/Chest Respiratory/Chest: Reports dyspnea and other Details: Transient asthma/wheezing now resolved. ; Denies cough or sputum Gastrointestinal Gastrointestinal: Denies abdominal pain, diarrhea, nausea or vomiting Genitourinary Genitourinary ED: Denies dysuria Musculoskeletal Musculoskeletal: Reports back pain and other Details: See history of present illness. ; Denies myalgias Integumentary Denies rash Neurologic Neurologic: Reports headache(s) and other Details: Transient migraine now better. ; Denies paresthesias or weakness Endocrine Endocrinology: Denies polydipsia Allergic/Immunologic Allergic/Immunologic ED: Denies mouth swelling or urticaria EXAM Physical Exam Const Vital Signs: 07/14/21 11:21 Temperature 97.5 F L Temperature Source Temporal Pulse Rate 108 H Respiratory Rate 18 Blood Pressure 147/106 H Blood Pressure Mean 119 Pulse Ox 100 Oxygen Delivery Method Room Air Positive well nourished, well developed and obese Constitutional Narrative: Patient looks comfortable in bed. He is very talkative. He is very mobile. When I went in the room he was accidentally holding his left leg up in the air off the bed. He was able to continue holding his left leg and lean his entire back up off the bed so he was essentially pivoting on his buttock with his right leg down. He was able to do this without difficulty. General Appearance ED: well developed and NAD; Negative for cyanotic or diaphoretic Nutritional Appearance: obese HEENT Reports moist mucous membranes HEENT Narrative: No temporal artery tenderness. Negative for trauma or tenderness Eyes PERRL and EOMs intact bilaterally General Eye ED: Negative for pale conjunctiva or scleral icterus Neck supple and no JVD Chest Wall inspection of chest normal Resp normal respiratory effort and clear to auscultation bilaterally Resp Narrative: Patient takes good deep breaths without difficulty. His lungs are clear. There is no wheezing on exam. Effort and Inspection: Negative for pain with movement Auscultation: Negative for rales, rhonchi or wheezes Cardio regular rate, regular rhythm and no murmurs GI normal to inspection, nondistended, normoactive bowel sounds and non-tender Palpation: soft Back/Spine no CVA tenderness Back/Spine Narrative: Patient has no significant tenderness in the back. His range of motion is surprisingly good. Extremity Extremity Narrative: Patient has ankle for orthotic on the left. He has excellent distal pulses. Sensation is still intact. His strength is good. Reflexes are about +1 Achilles and patellar but equal. Neuro oriented x3 Sensorium / Orientation: alert and orientation impaired; Negative for lethargic or stuporous Psych mental status grossly normal Skin no rashes or lesions noted MDM MDM MDM Narrative Medical decision making narrative: Patient looks well now. His symptoms are all better. His back spasm and pain is not completely gone though. I will get him a dose of medicine here. I will write for some Norflex in case he needs this to see if it helps. I recommend he follow-up with his primary physician. His headache and wheezing/dyspnea are gone. He still has some of the back pain and his leg pain is chronic. His back pain is chronic but intermittent. We did discuss reasons to return. He has a continuous glucose monitor on and is doing well. He is comfortable managing this. Note that his creatinine was also normal back in March. Discharge Plan Triage Chief Complaint: Back ED Provider: Papi Pandya Dx/Rx/DC Orders Clinical Impression: Lumbar paraspinal muscle spasm, History of asthma, Chronic leg pain, History of type 2 diabetes mellitus Instructions: ED Muscle Spasm Prescriptions: New orphenadrine citrate 100 mg tablet extended release 100 mg PO BID PRN (Reason: spasm) Qty: 7 RF: 0 No Action divalproex 500 MG tablet,delayed release (DR/EC) 1,500 mg PO QHS RF: 0 metformin 1,000 MG tablet 1,000 mg PO BIDCM RF: 0 albuterol sulfate 1 PUFF inhaler 2 puff inhalation Q6H PRN PRN (Reason: Sob &/Or Wheezing) RF: 0 cholecalciferol (vitamin D3) 1,000 UNIT tablet 50,000 unit PO QWEEK RF: 0 lisinopril 10 MG tablet 30 mg PO DAILY RF: 0 insulin aspart U-100 100 UNITS/ML insulin pen 6 units subcut TIDCM RF: 0 triamcinolone acetonide 1 APPLIC cream 1 applic topical TID PRN PRN (Reason: YEAST INFECTION) RF: 0 duloxetine 30 MG capsule 30 mg PO DAILY RF: 0 nadolol 20 MG tablet 40 mg PO DAILY RF: 0 insulin degludec 200 UNIT/ML insulin pen 25 unit SQ BREAKFAST RF: 0 nystatin 1 APPLIC ointment 1 applic topical 4X/DAY PRN (Reason: GROIN) RF: 0 doxepin 25 MG capsule 25 - 50 mg PO QHS PRN PRN (Reason: Insomnia) RF: 0 prochlorperazine maleate 10 MG tablet 10 mg PO Q8H PRN PRN (Reason: Migraine Symptoms) RF: 0 risperidone 2 MG tablet 2 mg PO QHS RF: 0 nortriptyline 10 MG capsule 10 mg PO QHS RF: 0 fluoxetine 20 MG capsule 40 mg PO DAILY RF: 0 risperidone 1 MG tablet 1 mg PO BREAKFAST RF: 0 diclofenac sodium 100 GM gel 1 applic TP 4X/DAY PRN (Reason: BACK PAIN) RF: 0 mometasone-formoterol 8.8 GM HFA aerosol inhaler 2 puff IH BID RF: 0 verapamil 80 MG tablet 40 mg PO TID RF: 0 gabapentin 100 MG capsule 100 mg PO TID Qty: 42 RF: 0 ondansetron 4 MG tablet 4 mg PO Q6H PRN PRN (Reason: Nausea) Qty: 10 RF: 0 promethazine 25 MG tablet 25 mg PO Q6H PRN PRN (Reason: Nausea) Qty: 10 RF: 0 tizanidine 4 MG tablet 4 mg PO BID PRN PRN (Reason: Spasms) RF: 0 acetaminophen 325 MG tablet 325 mg PO Q6H PRN PRN (Reason: Headache) RF: 0 sumatriptan succinate 100 MG tablet 100 mg PO BID PRN (Reason: Migraine Symptoms) RF: 0 meloxicam 15 MG tablet 15 mg PO DAILY RF: 0 indomethacin 25 MG capsule 25 mg PO TIDCM RF: 0 omeprazole 20 MG capsule,delayed release(DR/EC) 20 mg PO BID RF: 0 cetirizine 10 MG capsule 10 mg PO DAILY RF: 0 food supplemt, lactose-reduced 237 ML liquid 237 ml PO BID RF: 0 dicyclomine 10 MG capsule 10 mg PO TIDAC RF: 0 ondansetron 4 MG tablet 4 mg PO Q8H PRN PRN (Reason: Nausea) Qty: 10 RF: 0 naproxen 500 MG tablet 500 mg PO BID Qty: 14 RF: 0 Primary Care Provider: Ranjit Azar Referrals: Ranjit Azar DO [Primary Care Provider] - 3-5 Days Disposition Disposition: Home, Self Care
[2021-07-14] MEDS: Orphenadrine 60 MG/2 ML Ampul IM (12:32)
[2021-07-14] MEDS: Ketorolac 15 MG/ML Vial IM (12:32)
[2021-07-14 12:38] VITALS: BP 142/77; PULSE 83; RESP 14; O2SAT 99
== END 2021-07-14 12:39 | disposition home or self-care (01) ==
PROVIDERS: Emergency Provider Emergency Medicine; PCP Student in an Organized Health Care Education/Training Program; Visit Provider Emergency Medicine
DX: M62.830 Muscle spasm of back (principal); F25.9 Schizoaffective disorder, unspecified; E11.9 Type 2 diabetes mellitus without complications; Z79.4 Long term (current) use of insulin; M54.9 Dorsalgia, unspecified; Z87.891 Personal history of nicotine dependence; M79.605 Pain in left leg; G89.29 Other chronic pain; M79.604 Pain in right leg; G43.909 Migraine, unspecified, not intractable, without status migrainosus; I10 Essential (primary) hypertension; J45.909 Unspecified asthma, uncomplicated; F32.A Depression, unspecified; Z79.1 Long term (current) use of non-steroidal anti-inflammatories (NSAID); Z79.899 Other long term (current) drug therapy
CPT/HCPCS: 96372; 99284

== ENCOUNTER 2021-12-18 11:32 | Emergency (ER) | payer MEDICAID, SELFPAY ==
[2021-12-18 11:34] VITALS: BP 123/92; PULSE 116; RESP 16; TEMP 36.6; O2SAT 100; BMI 34.6
--- NOTE | 2021-12-18 12:08 | US_ITS ---
STUDY: SCROTUM ULTRASOUND REASON FOR EXAM: Male, 36 years old. Scrotal pain, left testicular pulling sensation TECHNIQUE: Ultrasound evaluation of the scrotum was performed with color Doppler and static riggs-scale imaging. COMPARISON: CT abdomen and pelvis 04/19/2019 FINDINGS: RIGHT TESTICLE INTRATESTICULAR: There is a normal size of the right testicle. The right testicle measures 2.33 x 2.84 x 1.88 cm. There is a homogenous echotexture. There is normal arterial and normal venous vascularity. There is no demonstrated right testicular mass or cyst. EXTRATESTICULAR: The epididymis is normal in size. The epididymis head measures 0.36 x 0.64 x 0.85 cm. There is normal vascularity of the epididymis. There is no demonstrated epididymal cystic structure. There is no demonstrated hydrocele. There is no demonstrated varicocele. There is soft tissue density containing moderate vascularity suggesting mesentery within an inguinal hernia extending into the upper right scrotum. The anterior scrotal wall thickness is 3.5 mm. LEFT TESTICLE INTRATESTICULAR: There is a normal size of the left testicle. The left testicle measures 2.45 x 2.92 x 1.87 cm. There is a homogenous echotexture. There is normal arterial and normal venous vascularity. There is no demonstrated left testicular mass or cyst. EXTRATESTICULAR: The epididymis is normal in size. The epididymis head measures 2.65 x 0.66 x 1.35 cm. There is normal vascularity of the epididymis. There is no demonstrated epididymal cystic structure. There is no demonstrated hydrocele. There is no demonstrated varicocele. The technologist questions a inguinal hernia on the left with Valsalva maneuver, but this is not as clearly demonstrated as on the right. The anterior right scrotal wall thickness is 4.5 mm. US/Testicular with Arterial Flow IMPRESSION: 1. Normal bilateral testicles and epididymides. 2. Right inguinal hernia containing mesentery suggested. This was not evident on CT April 2019, however. Technologist also questions an inguinal hernia on the left, also not present on the 2019 CT, and this is not well demonstrated in the images provided. Electronically Signed: Carroll Palumbo MD at 14:59 EDT Reading Location ID and State: [facility] / [place] , Service support ,
--- NOTE | 2021-12-18 12:19 | EX.ED.GUMALE ---
HPI <CARLOS Davila - Last Filed: 12/18/21 15:21> History of Present Illness Chief Complaint: Male Pain/Injury Narrative Narrative: Patient had mild left scrotal pain yesterday that worsened today and lower back. Scrotum feels like it is being squeezed. He has no frequency, dysuria or hematuria. Denies penile discharge. He is sexually active but has no new partners and denies concern for STI. He has no fever chills, nausea vomiting, abdominal pain. Normal daily bowel movements without pain. PFSH <CARLOS Davila - Last Filed: 12/18/21 15:21> [facility] Medical History Acute cholecystitis Acute gangrenous cholecystitis Asthma Cholecystitis Depression DM2 (diabetes mellitus, type 2) HTN (hypertension) Schizoaffective disorder Seizure SOB (shortness of breath) Home Medications albuterol sulfate 90 mcg/actuation aerosol inhaler 2 puff inhalation Q6H PRN PRN Sob &/Or Wheezing 10/22/14 [History Last Taken 04/19/19 08:00] cholecalciferol (vitamin D3) 25 mcg (1,000 unit) tablet 50,000 unit PO QWEEK replacement 10/22/14 [History Last Taken 04/19/19] divalproex 500 mg tablet,delayed release 1,500 mg PO QHS SEIZURES 10/22/14 [History Last Taken 04/18/19 22:30] metformin 1,000 mg tablet 1,000 mg PO BIDCM DIABETES 10/22/14 [History Last Taken 04/19/19 08:00] lisinopril 10 mg tablet 30 mg PO DAILY BLOOD PRESSURE 03/06/15 [History Last Taken 04/18/19] insulin aspart U-100 100 unit/mL (3 mL) subcutaneous pen 6 units subcut TIDCM DIABETES 11/12/15 [History Last Taken 04/19/19 08:00] duloxetine 30 mg capsule,delayed release 30 mg PO DAILY DEPRESSION 02/29/16 [History Last Taken 04/19/19 08:00] triamcinolone acetonide 0.025 % topical cream 1 applic topical TID PRN PRN YEAST INFECTION 02/29/16 [History Last Taken 02/23/18] insulin degludec 200 unit/mL (3 mL) subcutaneous pen 25 unit SQ BREAKFAST DIABETES 09/10/17 [History Last Taken 04/19/19 08:00] nadolol 20 mg tablet 40 mg PO DAILY BLOOD PRESSURE 09/10/17 [History Last Taken 04/19/19 08:00] diclofenac sodium 1 % topical gel 1 applic TP 4X/DAY PRN BACK PAIN 01/11/18 [History Last Taken 04/08/19] doxepin 25 mg capsule 25 - 50 mg PO QHS PRN PRN Insomnia 01/11/18 [History Last Taken 04/18/19 22:30] fluoxetine 20 mg capsule 40 mg PO DAILY DEPRESSION 01/11/18 [History Last Taken 04/19/19 08:00] nortriptyline 10 mg capsule 10 mg PO QHS SLEEP 01/11/18 [History Last Taken 04/18/19] nystatin 100,000 unit/gram topical ointment 1 applic topical 4X/DAY PRN GROIN 01/11/18 [History Last Taken 02/23/18] prochlorperazine maleate 10 mg tablet 10 mg PO Q8H PRN PRN Migraine Symptoms 01/11/18 [History Last Taken 02/23/18] risperidone 1 mg tablet 1 mg PO BREAKFAST SCHIZOPHRENIA 01/11/18 [History Last Taken 04/19/19] risperidone 2 mg tablet 2 mg PO QHS SHIZOPHRENIA 01/11/18 [History Last Taken 02/23/18] mometasone-formoterol HFA 200 mcg-5 mcg/actuation aerosol inhaler 2 puff IH BID BREATHING 02/17/18 [History Last Taken 04/19/19 08:00] verapamil 80 mg tablet 40 mg PO TID BLOOD PRESSURE 02/24/18 [History Last Taken 04/19/19] gabapentin 100 mg capsule 100 mg PO TID #42 caps 11/27/18 [Rx Last Taken 04/19/19 08:00] ondansetron 4 mg disintegrating tablet 4 mg PO Q6H PRN PRN Nausea #10 tabs 03/11/19 [Rx Last Taken 04/19/19 08:00] promethazine 25 mg tablet 25 mg PO Q6H PRN PRN Nausea #10 tabs 04/18/19 [Rx Last Taken Unknown] tizanidine 4 mg tablet 4 mg PO BID PRN PRN Spasms 04/19/19 [History Last Taken Unknown] acetaminophen 325 mg tablet 325 mg PO Q6H PRN PRN Headache 06/28/19 [History Last Taken Unknown] cetirizine 10 mg capsule 10 mg PO DAILY 06/28/19 [History Last Taken Unknown] dicyclomine 10 mg capsule 10 mg PO TIDAC 06/28/19 [History Last Taken Unknown] food supplemt, lactose-reduced 0.05 gram-1.5 kcal/mL oral liquid 237 ml PO BID 06/28/19 [History Last Taken Unknown] indomethacin 25 mg capsule 25 mg PO TIDCM 06/28/19 [History Last Taken Unknown] meloxicam 15 mg tablet 15 mg PO DAILY 06/28/19 [History Last Taken Unknown] omeprazole 20 mg capsule,delayed release 20 mg PO BID 06/28/19 [History Last Taken Unknown] sumatriptan succinate 100 mg tablet 100 mg PO BID PRN Migraine Symptoms 06/28/19 [History Last Taken Unknown] ondansetron 4 mg disintegrating tablet 4 mg PO Q8H PRN PRN Nausea #10 tabs 03/09/20 [Rx Last Taken Unknown] naproxen 500 mg tablet 500 mg PO BID #14 tabs 04/22/21 [Rx Last Taken Unknown] orphenadrine citrate 100 mg tablet,extended release 100 mg PO BID PRN spasm #7 tabs 07/14/21 [Rx Last Taken Unknown] doxycycline hyclate 100 mg tablet 100 mg PO BID #14 tabs 12/18/21 [Rx Last Taken Unknown] naproxen 500 mg tablet 500 mg PO BID #14 tabs 12/18/21 [Rx Last Taken Unknown] ondansetron 4 mg disintegrating tablet 4 mg PO Q6H PRN nausea and vomiting #14 tabs 12/18/21 [Rx Last Taken Unknown] Allergy/AdvReac Type Severity Reaction Status Date / Time hydrocodone bitartrate Allergy Hives Verified 12/18/21 11:33 [From Vicodin] strawberry Allergy Hives Verified 12/18/21 11:33 acetaminophen AdvReac Nausea/hive Verified 12/18/21 11:33 s baclofen AdvReac IT MAKES Verified 12/18/21 11:33 HIM LIGHTHEADED AND SICK lactose AdvReac Nausea Verified 12/18/21 11:33 Penicillins AdvReac Nausea Verified 12/18/21 11:33 COCONUT Allergy Hives Uncoded 12/18/21 11:33 Surgical History History of laparoscopic cholecystectomy (~04/20/19) Social History Smoking Status: Former smoker ROS <CARLOS Davila - Last Filed: 12/18/21 15:21> ROS ED ROS Narrative Constitutional: Negative for fever, chills, malaise. Eyes: Negative for visual change. ENT: Negative for sore throat, ear pain, rhinorrhea. CVS: Negative for palpitations, chest pain, syncope. Respiratory: Negative for shortness of breath, cough, orthopnea. GI: Negative for abdominal pain, nausea, vomiting, diarrhea, constipation, melena, hematochezia. : Positive for scrotal pain. Negative for dysuria, hematuria or frequency. Neuro: Negative for headache, motor/sensory dysfunction. Skin: Negative for rash, abscess, or wound. Musc: Negative for joint pain, swelling, trauma. Heme: Negative for easy bruising, bleeding, lymphadenopathy. EXAM <CARLOS Davila - Last Filed: 12/18/21 15:21> Physical Exam Narrative Exam Narrative: CONST: Patient sitting in no acute distress. EYES: Normal inspection. NECK: Normal inspection. RESP: No respiratory distress, CTAB. CVS: Regular rate and rhythm, no murmur, no gallop. ABD: Soft and nontender, no guarding or rebound, nondistended : Normal-appearing uncircumcised penis with no discharge, testicles appear symmetric, some tenderness over the left superior pole/epididymis, no swelling or palpable masses. SKIN: Color normal, no rash, warm, dry, intact. EXTREMITIES: Normal appearance, no pedal edema. NEURO: Oriented x4. PSYCH: Normal affect. Const Vital Signs: 12/18/21 11:34 Temperature 97.9 F Temperature Source Temporal Pulse Rate 116 H Respiratory Rate 16 Blood Pressure 123/92 H Blood Pressure Mean 102 Pulse Ox 100 Oxygen Delivery Method Room Air <Dr. Papi Pandya MD - Last Filed: 12/18/21 12:48> Physical Exam Const Vital Signs: 12/18/21 11:34 Temperature 97.9 F Temperature Source Temporal Pulse Rate 116 H Respiratory Rate 16 Blood Pressure 123/92 H Blood Pressure Mean 102 Pulse Ox 100 Oxygen Delivery Method Room Air [facility] <CARLOS Davila - Last Filed: 12/18/21 15:21> [facility] Narrative Medical decision making narrative: Patient presents with 2 days of left scrotal pain. He appears well nontoxic. Heart rate was 116, otherwise normal vital signs. Abdomen is soft and nontender. No palpable hernias. exam only remarkable for some tenderness over the left superior pole of the testicle but no swelling, erythema, or palpable masses. Nothing to suggest [place]'s gangrene. No penile discharge. UA is negative and ultrasound shows normal bilateral testicles and no torsion. Does question bilateral inguinal hernias but its not well demonstrated. Clinically he has no hernia. Examination is most consistent with epididymitis so we will be treated with Rocephin, doxycycline x1 week, and naproxen. He should follow-up with his primary care was discharged in stable condition. 1. Testicular pain 2. Epididymitis Lab Data Attestation: I reviewed the patient's lab results. Labs: Laboratory Results - last 24 hr 12/18/21 12:30 Urine Color Yellow Urine Clarity Sl. Cloudy Urine pH 5.0 Ur Specific Driscoll 1.020 Urine Protein 100 H Urine Glucose (UA) 250 H Urine Ketones 5 H Urine Occult Blood Negative Urine Nitrite Negative Urine Bilirubin Negative Urine Urobilinogen 4 H Ur Leukocyte Esterase 25 H Urine RBC 0 SEEN Urine WBC 0-5 SEEN Ur Squamous Epith Cells 0 SEEN Urine Bacteria 0 SEEN Urine Mucus 0 SEEN Radiography Diagnostic Testing: Clinical Impression(s) from Imaging Studies Testicular Ultrasound 12/18/21 12:08 IMPRESSION: 1. Normal bilateral testicles and epididymides. 2. Right inguinal hernia containing mesentery suggested. This was not evident on CT April 2019, however. Technologist also questions an inguinal hernia on the left, also not present on the [address] CT, and this is not well demonstrated in the images provided. Electronically Signed: Carroll Palumbo MD at 14:59 EDT Reading Location ID and State: [facility] [place] / [place] , Service support , <Dr. Papi Pandya MD - Last Filed: 12/18/21 12:48> [facility] Lab Data Labs: Laboratory Results - last 24 hr 12/18/21 12:30 Urine Color Yellow Urine Clarity Sl. Cloudy Urine pH 5.0 Ur Specific Driscoll 1.020 Urine Protein 100 H Urine Glucose (UA) 250 H Urine Ketones 5 H Urine Occult Blood Negative Urine Nitrite Negative Urine Bilirubin Negative Urine Urobilinogen 4 H Ur Leukocyte Esterase 25 H Urine RBC 0 SEEN Urine WBC 0-5 SEEN Ur Squamous Epith Cells 0 SEEN Urine Bacteria 0 SEEN Urine Mucus 0 SEEN Radiography Diagnostic Testing: Clinical Impression(s) from Imaging Studies Testicular Ultrasound 12/18/21 12:08 IMPRESSION: 1. Normal bilateral testicles and epididymides. 2. Right inguinal hernia containing mesentery suggested. This was not evident on CT April 2019, however. Technologist also questions an inguinal hernia on the left, also not present on the [address] CT, and this is not well demonstrated in the images provided. Electronically Signed: Carroll Palumbo MD at 14:59 EDT Reading Location ID and State: [facility] [place] / [place] , Service support , Treatment and Re-Evaluation Narrative: I have personally performed a face to face assessment of the patient and have reviewed the YOUSIF Note. I performed a substantive portion of the visit including all aspects of the following. My shukla findings include: History is consistent with a left scrotal discomfort. He states he feels like it is being pulled or squeezed. He has no dysuria frequency urgency or discharge. No known contact with sexually transmitted diseases. Single partner. No fevers chills sweats. He has no abdominal pain nausea vomiting or change in bowel habits. Exam is no inguinal hernia. Mild fullness around the superior left scrotum but testicle has a normal lie and position. Medical Decison Making patient will have UA and ultrasound done. These are pending at this moment. Discharge Plan Triage Chief Complaint: Male Pain/Injury ED Midlevel Provider: Deb Jimenez ED Provider: Papi Pandya Dx/Rx/DC Orders Clinical Impression: Epididymitis Instructions: ED Epididymitis Prescriptions: New doxycycline hyclate 100 mg tablet 100 mg PO BID Qty: 14 0RF ondansetron 4 mg tablet,disintegrating 4 mg PO Q6H PRN (Reason: nausea and vomiting) Qty: 14 0RF Rx Instructions: to take as needed if doxy causes nausea which was listed. naproxen 500 mg tablet 500 mg PO BID Qty: 14 0RF No Action divalproex 500 MG tablet,delayed release (DR/EC) 1,500 mg PO QHS Label Comments: seizure metformin 1,000 MG tablet 1,000 mg PO BIDCM Label Comments: diabetic albuterol sulfate 1 PUFF inhaler 2 puff inhalation Q6H PRN PRN (Reason: Sob &/Or Wheezing) Label Comments: breathing cholecalciferol (vitamin D3) 1,000 UNIT tablet 50,000 unit PO QWEEK Label Comments: supplement lisinopril 10 MG tablet 30 mg PO DAILY Label Comments: blood pressure insulin aspart U-100 100 UNITS/ML insulin pen 6 units subcut TIDCM Label Comments: diabetic triamcinolone acetonide 1 APPLIC cream 1 applic topical TID PRN PRN (Reason: YEAST INFECTION) duloxetine 30 MG capsule 30 mg PO DAILY nadolol 20 MG tablet 40 mg PO DAILY insulin degludec 200 UNIT/ML insulin pen 25 unit SQ BREAKFAST nystatin 1 APPLIC ointment 1 applic topical 4X/DAY PRN (Reason: GROIN) doxepin 25 MG capsule 25 - 50 mg PO QHS PRN PRN (Reason: Insomnia) prochlorperazine maleate 10 MG tablet 10 mg PO Q8H PRN PRN (Reason: Migraine Symptoms) risperidone 2 MG tablet 2 mg PO QHS nortriptyline 10 MG capsule 10 mg PO QHS fluoxetine 20 MG capsule 40 mg PO DAILY risperidone 1 MG tablet 1 mg PO BREAKFAST diclofenac sodium 100 GM gel 1 applic TP 4X/DAY PRN (Reason: BACK PAIN) mometasone-formoterol 8.8 GM HFA aerosol inhaler 2 puff IH BID verapamil 80 MG tablet 40 mg PO TID gabapentin 100 MG capsule 100 mg PO TID Qty: 42 0RF Label Comments: NEUROPATHIC PAIN ondansetron 4 MG tablet 4 mg PO Q6H PRN PRN (Reason: Nausea) Qty: 10 0RF promethazine 25 MG tablet 25 mg PO Q6H PRN PRN (Reason: Nausea) Qty: 10 0RF tizanidine 4 MG tablet 4 mg PO BID PRN PRN (Reason: Spasms) acetaminophen 325 MG tablet 325 mg PO Q6H PRN PRN (Reason: Headache) sumatriptan succinate 100 MG tablet 100 mg PO BID PRN (Reason: Migraine Symptoms) meloxicam 15 MG tablet 15 mg PO DAILY indomethacin 25 MG capsule 25 mg PO TIDCM omeprazole 20 MG capsule,delayed release(DR/EC) 20 mg PO BID cetirizine 10 MG capsule 10 mg PO DAILY food supplemt, lactose-reduced 237 ML liquid 237 ml PO BID dicyclomine 10 MG capsule 10 mg PO TIDAC Label Comments: BELLY DISCOMFORT ondansetron 4 MG tablet 4 mg PO Q8H PRN PRN (Reason: Nausea) Qty: 10 0RF naproxen 500 MG tablet 500 mg PO BID Qty: 14 0RF orphenadrine citrate 100 mg tablet extended release 100 mg PO BID PRN (Reason: spasm) Qty: 7 0RF Primary Care Provider: Ranjit Azar Referrals: Ranjit Azar DO [Primary Care Provider] - Activity Restrictions/Additional Instructions: You were given an antibiotic shot here and a prescription for doxycycline to take at home for the next week. I also prescribed naproxen for pain. Please follow-up with your primary care doctor. Disposition Disposition: Home, Self Care
[2021-12-18 12:34] LABS: Bacteria 0 SEEN /hpf (None Seen); Mucous, Urine 0 SEEN /hpf (<or=2+); Red Blood Cells-Urine 0 SEEN /hpf (0-5); Squamous Epithelial Cells - UA 0 SEEN /hpf (0-5)
[2021-12-18 12:38] LABS: Color, Urine Yellow (Yellow); Glucose, Dipstick 250 mg/dl (Normal); Ketone-Dipstick 5 mg/dl (Negative); Leukocyte Esterase-Dipstick 25 /ul (Negative); Nitrite-Dipstick Negative (Negative); Occult Blood-Urine Negative /ul (Negative); Protein-Dipstick 100 mg/dl (Negative); Urine Bilirubin Dipstick Negative (Negative); Urine Clarity Sl. Cloudy (Clear); Urine Urobilinogen 4 mg/dl (Normal)
[2021-12-18] MEDS: Ketorolac 30 MG/ML Syringe IM (12:41)
[2021-12-18 12:44] LABS: White Blood Cells 0-5 SEEN /hpf (0-5)
[2021-12-18] MEDS: Ceftriaxone 500 MG Vial IM (15:32)
== END 2021-12-18 15:42 | disposition home or self-care (01) ==
PROVIDERS: Physician Assistant; Emergency Provider Emergency Medicine; PCP Student in an Organized Health Care Education/Training Program; Visit Provider Emergency Medicine
DX: N45.1 Epididymitis (principal); N50.819 Testicular pain, unspecified; E11.9 Type 2 diabetes mellitus without complications; F25.9 Schizoaffective disorder, unspecified; I10 Essential (primary) hypertension; J45.909 Unspecified asthma, uncomplicated; Z79.4 Long term (current) use of insulin; Z79.1 Long term (current) use of non-steroidal anti-inflammatories (NSAID); Z79.899 Other long term (current) drug therapy; Z87.891 Personal history of nicotine dependence
CPT/HCPCS: 76870; 81001; 93976; 96372; 99283

== ENCOUNTER 2022-01-08 21:04 | Emergency (ER) | payer MEDICAID, SELFPAY ==
[2022-01-08 21:05] VITALS: BP 167/112; PULSE 108; RESP 18; TEMP 37.1; O2SAT 100; BMI 35.9
--- NOTE | 2022-01-08 22:46 | RAD_ITS ---
STUDY: X-RAY - LEFT SHOULDER REASON FOR EXAM: Male, 36 years old. pain TECHNIQUE: 4 view(s) of the shoulder. COMPARISON: None. FINDINGS: Normal glenohumeral articulation. Normal acromioclavicular joint. Normal acromion. Normal humeral head and visualized proximal humerus. The soft tissue structures are unremarkable. Normal visualized pulmonary apex. RAD/Shoulder min 2 Views IMPRESSION: Normal x-ray examination of the shoulder. Electronically Signed: Will Gonzalez DO at 23:29 EDT ,
--- NOTE | 2022-01-08 22:46 | RAD_ITS ---
STUDY: X-RAY - RIGHT WRIST REASON FOR EXAM: Male, 36 years old. pain TECHNIQUE: 3 view(s) of the wrist were obtained. COMPARISON: None. FINDINGS: Normal visualized distal radius and ulna. Normal radiocarpal articulation. Normal distal radioulnar articulation. Normal carpal bones. Normal carpal articulations. Normal carpometacarpal articulation of the thumb. Normal second through fifth carpometacarpal articulations. Normal visualized metacarpal bones. The soft tissue structures are unremarkable. RAD/Wrist min 3 Views IMPRESSION: Normal x-ray examination of the wrist. Electronically Signed: Will Gonzalez DO at 23:30 EDT ,
--- NOTE | 2022-01-08 22:47 | EDS_ITS ---
HPI HPI - Fall History of Present Illness Chief Complaint: Fall Narrative Narrative: 36-year-old male presenting for evaluation of right wrist pain, left shoulder pain, left hip pain. Patient states that he was coming up the stairs from the basement and his cat jumped at him. He thought it was going to go for his face so he blocked it with his hand and his cat scratched and called his right wrist. Patient states that he lost his footing and rolled sideways down the stairs. He did not hit his head or lose consciousness. Patient states that he was able to stand and walk with assistance although he states that his left gluteal region was giving him difficulty walking. His significant other was able to help him ambulate. He has not fallen again. PFSH [facility] Medical History Acute cholecystitis Acute gangrenous cholecystitis Asthma Cholecystitis Depression DM2 (diabetes mellitus, type 2) HTN (hypertension) Schizoaffective disorder Seizure SOB (shortness of breath) Home Medications albuterol sulfate 90 mcg/actuation aerosol inhaler 2 puff inhalation Q6H PRN PRN Sob &/Or Wheezing 10/22/14 [History Last Taken 04/19/19 08:00] cholecalciferol (vitamin D3) 25 mcg (1,000 unit) tablet 50,000 unit PO QWEEK replacement 10/22/14 [History Last Taken 04/19/19] divalproex 500 mg tablet,delayed release 1,500 mg PO QHS SEIZURES 10/22/14 [History Last Taken 04/18/19 22:30] metformin 1,000 mg tablet 1,000 mg PO BIDCM DIABETES 10/22/14 [History Last Taken 04/19/19 08:00] lisinopril 10 mg tablet 30 mg PO DAILY BLOOD PRESSURE 03/06/15 [History Last Taken 04/18/19] insulin aspart U-100 100 unit/mL (3 mL) subcutaneous pen 6 units subcut TIDCM DIABETES 11/12/15 [History Last Taken 04/19/19 08:00] duloxetine 30 mg capsule,delayed release 30 mg PO DAILY DEPRESSION 02/29/16 [History Last Taken 04/19/19 08:00] triamcinolone acetonide 0.025 % topical cream 1 applic topical TID PRN PRN YEAST INFECTION 02/29/16 [History Last Taken 02/23/18] insulin degludec 200 unit/mL (3 mL) subcutaneous pen 25 unit SQ BREAKFAST DIABETES 09/10/17 [History Last Taken 04/19/19 08:00] nadolol 20 mg tablet 40 mg PO DAILY BLOOD PRESSURE 09/10/17 [History Last Taken 04/19/19 08:00] diclofenac sodium 1 % topical gel 1 applic TP 4X/DAY PRN BACK PAIN 01/11/18 [History Last Taken 04/08/19] doxepin 25 mg capsule 25 - 50 mg PO QHS PRN PRN Insomnia 01/11/18 [History Last Taken 04/18/19 22:30] fluoxetine 20 mg capsule 40 mg PO DAILY DEPRESSION 01/11/18 [History Last Taken 04/19/19 08:00] nortriptyline 10 mg capsule 10 mg PO QHS SLEEP 01/11/18 [History Last Taken 04/18/19] nystatin 100,000 unit/gram topical ointment 1 applic topical 4X/DAY PRN GROIN 01/11/18 [History Last Taken 02/23/18] prochlorperazine maleate 10 mg tablet 10 mg PO Q8H PRN PRN Migraine Symptoms 01/11/18 [History Last Taken 02/23/18] risperidone 1 mg tablet 1 mg PO BREAKFAST SCHIZOPHRENIA 01/11/18 [History Last Taken 04/19/19] risperidone 2 mg tablet 2 mg PO QHS SHIZOPHRENIA 01/11/18 [History Last Taken 02/23/18] mometasone-formoterol HFA 200 mcg-5 mcg/actuation aerosol inhaler 2 puff IH BID BREATHING 02/17/18 [History Last Taken 04/19/19 08:00] verapamil 80 mg tablet 40 mg PO TID BLOOD PRESSURE 02/24/18 [History Last Taken 04/19/19] gabapentin 100 mg capsule 100 mg PO TID #42 caps 11/27/18 [Rx Last Taken 9 08:00] ondansetron 4 mg disintegrating tablet 4 mg PO Q6H PRN PRN Nausea #10 tabs 03/11/19 [Rx Last Taken 04/19/19 08:00] promethazine 25 mg tablet 25 mg PO Q6H PRN PRN Nausea #10 tabs 04/18/19 [Rx Last Taken Unknown] tizanidine 4 mg tablet 4 mg PO BID PRN PRN Spasms 04/19/19 [History Last Taken Unknown] acetaminophen 325 mg tablet 325 mg PO Q6H PRN PRN Headache 06/28/19 [History Last Taken Unknown] cetirizine 10 mg capsule 10 mg PO DAILY 06/28/19 [History Last Taken Unknown] dicyclomine 10 mg capsule 10 mg PO TIDAC 06/28/19 [History Last Taken Unknown] food supplemt, lactose-reduced 0.05 gram-1.5 kcal/mL oral liquid 237 ml PO BID 06/28/19 [History Last Taken Unknown] indomethacin 25 mg capsule 25 mg PO TIDCM 06/28/19 [History Last Taken Unknown] meloxicam 15 mg tablet 15 mg PO DAILY 06/28/19 [History Last Taken Unknown] omeprazole 20 mg capsule,delayed release 20 mg PO BID 06/28/19 [History Last Taken Unknown] sumatriptan succinate 100 mg tablet 100 mg PO BID PRN Migraine Symptoms 06/28/19 [History Last Taken Unknown] ondansetron 4 mg disintegrating tablet 4 mg PO Q8H PRN PRN Nausea #10 tabs 03/09/20 [Rx Last Taken Unknown] naproxen 500 mg tablet 500 mg PO BID #14 tabs 04/22/21 [Rx Last Taken Unknown] orphenadrine citrate 100 mg tablet,extended release 100 mg PO BID PRN spasm #7 tabs 07/14/21 [Rx Last Taken Unknown] doxycycline hyclate 100 mg tablet 100 mg PO BID #14 tabs 12/18/21 [Rx Last Taken Unknown] naproxen 500 mg tablet 500 mg PO BID #14 tabs 12/18/21 [Rx Last Taken Unknown] ondansetron 4 mg disintegrating tablet 4 mg PO Q6H PRN nausea and vomiting #14 tabs 12/18/21 [Rx Last Taken Unknown] doxycycline hyclate 100 mg tablet 100 mg PO BID #20 tabs 01/08/22 [Rx Last Taken Unknown] Allergy/AdvReac Type Severity Reaction Status Date / Time hydrocodone bitartrate Allergy Hives Verified 01/08/22 21:07 [From Vicodin] strawberry Allergy Hives Verified 01/08/22 21:07 acetaminophen AdvReac Nausea/hive Verified 01/08/22 21:07 s baclofen AdvReac IT MAKES Verified 01/08/22 21:07 HIM LIGHTHEADED AND SICK lactose AdvReac Nausea Verified 01/08/22 21:07 Penicillins AdvReac Nausea Verified 01/08/22 21:07 COCONUT Allergy Hives Uncoded 01/08/22 21:07 Surgical History History of laparoscopic cholecystectomy (~04/20/19) Social History Smoking Status: Former smoker EXAM Physical Exam Const Vital Signs: 01/08/22 21:05 01/08/22 21:45 Temperature 98.7 F Temperature Source Temporal Pulse Rate 108 H Respiratory Rate 18 Respiratory Effort Normal Non-Labored Respiratory Depth Normal Respiratory Pattern Normal Blood Pressure 167/112 H Blood Pressure Mean 130 Pulse Ox 100 Oxygen Delivery Method Room Air Room Air Positive well nourished General Appearance ED: NAD HEENT Reports normocephalic atraumatic Eyes PERRL and EOMs intact bilaterally Neck full ROM Chest Wall inspection of chest normal Resp normal respiratory effort and no retractions Auscultation: Negative for rales, rhonchi or wheezes Cardio regular rate and regular rhythm GI non-tender Back/Spine Cervical Spine: Negative for cervical spine tenderness Lumbar Spine / Lower Back: Negative for lumbar spinal tenderness Extremity Extremity Narrative: Tenderness palpation in the left posterior thigh. Left hip nontender to palpation. Negative logroll. Left leg is not shortened or externally rotated. Left shoulder tender to palpation over the posterior aspect of the shoulder girdle. He maintains full range of motion of the left shoulder. No bruising or deformity. He is neurovascular intact. Right wrist has multiple scratches and small bites which are superficial on the dorsum and the volar side of the wrist. There is no obvious deformity. Patient able to flex and extend the wrist. No crepitance. Right radial pulses 2+. Right hand neurovascular intact brisk cap refill to all 5 fingers. Neuro oriented x3 and CN's II-XII intact bilaterally Psych mental status grossly normal Skin Skin Narrative: As described above MDM MDM MDM Narrative Medical decision making narrative: Patient with cat scratches and bites to the right wrist. There is no obvious deformity. He does state that he fell on the wrist when he went down the stairs. X-rays of the right wrist Bowie interpretation negative for acute fracture or subluxation. I did obtain imaging of the left hip and left shoulder as well and these are both negative for fractures or other acute findings. Patient declined analgesia in the ER. Patient will be started on doxycycline for his cat bite/scratches as he is penicillin allergic. He is given wound care instructions. Instructed to use ice, Tylenol, ibuprofen. Return precaution discussed. Impression: 1. Fall 2. Right wrist contusion 3. Left shoulder contusion 4. Left hip contusion 5. Cat bite 6. Cat scratch Lab Data Attestation: I reviewed the patient's lab results. Radiography Diagnostic Testing: Clinical Impression(s) from Imaging Studies Shoulder X-Ray 01/08/22 22:46 IMPRESSION: Normal x-ray examination of the shoulder. Electronically Signed: Will Gonzalez DO at 23:29 EDT Reading Location ID and State: [facility] / [place] Tel , Service support , Wrist X-Ray 01/08/22 22:46 IMPRESSION: Normal x-ray examination of the wrist. Electronically Signed: Will Gonzalez DO at 23:30 EDT Reading Location ID and State: [facility] / [place] Tel , Service support , Hip/Pelvis X-Ray 01/08/22 23:04 IMPRESSION: Normal x-ray examination of the pelvis and hip. Electronically Signed: Will Gonzalez DO at 23:30 EDT , Discharge Plan Triage Chief Complaint: Fall ED Provider: Elvin Allen Dx/Rx/DC Orders Instructions: ED Cat Bite, ED Contusion, Upper Extremity, ED Hip Contusion, ED Shoulder Contusion Prescriptions: New doxycycline hyclate 100 mg tablet 100 mg PO BID Qty: 20 0RF No Action divalproex 500 MG tablet,delayed release (DR/EC) 1,500 mg PO QHS Label Comments: seizure metformin 1,000 MG tablet 1,000 mg PO BIDCM Label Comments: diabetic albuterol sulfate 1 PUFF inhaler 2 puff inhalation Q6H PRN PRN (Reason: Sob &/Or Wheezing) Label Comments: breathing cholecalciferol (vitamin D3) 1,000 UNIT tablet 50,000 unit PO QWEEK Label Comments: supplement lisinopril 10 MG tablet 30 mg PO DAILY Label Comments: blood pressure insulin aspart U-100 100 UNITS/ML insulin pen 6 units subcut TIDCM Label Comments: diabetic triamcinolone acetonide 1 APPLIC cream 1 applic topical TID PRN PRN (Reason: YEAST INFECTION) duloxetine 30 MG capsule 30 mg PO DAILY nadolol 20 MG tablet 40 mg PO DAILY insulin degludec 200 UNIT/ML insulin pen 25 unit SQ BREAKFAST nystatin 1 APPLIC ointment 1 applic topical 4X/DAY PRN (Reason: GROIN) doxepin 25 MG capsule 25 - 50 mg PO QHS PRN PRN (Reason: Insomnia) prochlorperazine maleate 10 MG tablet 10 mg PO Q8H PRN PRN (Reason: Migraine Symptoms) risperidone 2 MG tablet 2 mg PO QHS nortriptyline 10 MG capsule 10 mg PO QHS fluoxetine 20 MG capsule 40 mg PO DAILY risperidone 1 MG tablet 1 mg PO BREAKFAST diclofenac sodium 100 GM gel 1 applic TP 4X/DAY PRN (Reason: BACK PAIN) mometasone-formoterol 8.8 GM HFA aerosol inhaler 2 puff IH BID verapamil 80 MG tablet 40 mg PO TID gabapentin 100 MG capsule 100 mg PO TID Qty: 42 0RF Label Comments: NEUROPATHIC PAIN ondansetron 4 MG tablet 4 mg PO Q6H PRN PRN (Reason: Nausea) Qty: 10 0RF promethazine 25 MG tablet 25 mg PO Q6H PRN PRN (Reason: Nausea) Qty: 10 0RF tizanidine 4 MG tablet 4 mg PO BID PRN PRN (Reason: Spasms) acetaminophen 325 MG tablet 325 mg PO Q6H PRN PRN (Reason: Headache) sumatriptan succinate 100 MG tablet 100 mg PO BID PRN (Reason: Migraine Symptoms) meloxicam 15 MG tablet 15 mg PO DAILY indomethacin 25 MG capsule 25 mg PO TIDCM omeprazole 20 MG capsule,delayed release(DR/EC) 20 mg PO BID cetirizine 10 MG capsule 10 mg PO DAILY food supplemt, lactose-reduced 237 ML liquid 237 ml PO BID dicyclomine 10 MG capsule 10 mg PO TIDAC Label Comments: BELLY DISCOMFORT ondansetron 4 MG tablet 4 mg PO Q8H PRN PRN (Reason: Nausea) Qty: 10 0RF naproxen 500 MG tablet 500 mg PO BID Qty: 14 0RF orphenadrine citrate 100 mg tablet extended release 100 mg PO BID PRN (Reason: spasm) Qty: 7 0RF doxycycline hyclate 100 mg tablet 100 mg PO BID Qty: 14 0RF ondansetron 4 mg tablet,disintegrating 4 mg PO Q6H PRN (Reason: nausea and vomiting) Qty: 14 0RF Rx Instructions: to take as needed if doxy causes nausea which was listed. naproxen 500 mg tablet 500 mg PO BID Qty: 14 0RF Primary Care Provider: Ranjit Azar Referrals: Ranjit Azar, [Primary Care Provider] - Disposition Disposition: Home, Self Care
--- NOTE | 2022-01-08 23:04 | RAD_ITS ---
STUDY: X-RAY - PELVIS AND LEFT HIP REASON FOR EXAM: Male, 36 years old. pain TECHNIQUE: 3 views of the pelvis and hip. COMPARISON: None. FINDINGS: There is a non-specific bowel gas pattern. Normal visualized soft tissue structures. Normal bilateral iliac wings, sacroiliac joints and visualized sacrum. Normal bilateral superior and inferior pubic rami. Normal pubic symphysis. Normal bilateral ischial tuberosities. Normal visualized femoral head. Normal acetabulum. Normal hip joint. RAD/HIP, UNI W/ Pelvis 2-3 Views IMPRESSION: Normal x-ray examination of the pelvis and hip. Electronically Signed: Will Gonzalez DO at 23:30 EDT ,
[2022-01-08] MEDS: Doxycycline 100 MG CAPSULE PO (23:19)
== END 2022-01-08 23:45 | disposition home or self-care (01) ==
PROVIDERS: Emergency Provider Student in an Organized Health Care Education/Training Program; PCP Student in an Organized Health Care Education/Training Program; Visit Provider Student in an Organized Health Care Education/Training Program
DX: S60.211A Contusion of right wrist, initial encounter (principal); S40.012A Contusion of left shoulder, initial encounter; S70.02XA Contusion of left hip, initial encounter; W10.9XXA Fall (on) (from) unspecified stairs and steps, initial encounter; E11.9 Type 2 diabetes mellitus without complications; I10 Essential (primary) hypertension; J45.909 Unspecified asthma, uncomplicated; F25.9 Schizoaffective disorder, unspecified; Z79.4 Long term (current) use of insulin; Z79.1 Long term (current) use of non-steroidal anti-inflammatories (NSAID); Z79.899 Other long term (current) drug therapy; Z87.891 Personal history of nicotine dependence; S60.811A Abrasion of right wrist, initial encounter; S61.551A Open bite of right wrist, initial encounter; Z88.0 Allergy status to penicillin
CPT/HCPCS: 73030; 73110; 73502; 99283

== ENCOUNTER 2022-08-16 09:33 | Emergency (ER) | payer MEDICAID, SELFPAY ==
[2022-08-16 09:35] VITALS: BP 128/78; PULSE 76; RESP 16; TEMP 36.6; O2SAT 100; BMI 36.0
--- NOTE | 2022-08-16 09:47 | EDS_ITS ---
HPI History of Present Illness Chief Complaint: Cough Narrative Narrative: Presents with cough congestion, cough is sometimes productive, its been ongoing for the past 2 weeks. No fevers or chills. He has been using his albuterol inhaler more often. He has no back pain or chest pain. No current dyspnea. [facility] Medical History Acute cholecystitis Acute gangrenous cholecystitis Asthma Cholecystitis Depression DM2 (diabetes mellitus, type 2) HTN (hypertension) Schizoaffective disorder Seizure SOB (shortness of breath) Home Medications albuterol sulfate 90 mcg/actuation aerosol inhaler 2 puff inhalation Q6H PRN PRN Sob &/Or Wheezing 10/22/14 [History Last Taken 04/19/19 08:00] cholecalciferol (vitamin D3) 25 mcg (1,000 unit) tablet 50,000 unit PO QWEEK replacement 10/22/14 [History Last Taken 04/19/19] divalproex 500 mg tablet,delayed release 1,500 mg PO QHS SEIZURES 10/22/14 [History Last Taken 04/18/19 22:30] metformin 1,000 mg tablet 1,000 mg PO BIDCM DIABETES 10/22/14 [History Last Taken 04/19/19 08:00] lisinopril 10 mg tablet 30 mg PO DAILY BLOOD PRESSURE 03/06/15 [History Last Ta deyanira 04/18/19] insulin aspart U-100 100 unit/mL (3 mL) subcutaneous pen 6 units subcut TIDCM DIABETES 11/12/15 [History Last Taken 04/19/19 08:00] duloxetine 30 mg capsule,delayed release 30 mg PO DAILY DEPRESSION 02/29/16 [History Last Taken 04/19/19 08:00] triamcinolone acetonide 0.025 % topical cream 1 applic topical TID PRN PRN YEAST INFECTION 02/29/16 [History Last Taken 02/23/18] insulin degludec 200 unit/mL (3 mL) subcutaneous pen 25 unit SQ BREAKFAST DIABETES 09/10/17 [History Last Taken 04/19/19 08:00] nadolol 20 mg tablet 40 mg PO DAILY BLOOD PRESSURE 09/10/17 [History Last Taken 04/19/19 08:00] diclofenac sodium 1 % topical gel 1 applic TP 4X/DAY PRN BACK PAIN 01/11/18 [History Last Taken 04/08/19] doxepin 25 mg capsule 25 - 50 mg PO QHS PRN PRN Insomnia 01/11/18 [History Last Taken 04/18/19 22:30] fluoxetine 20 mg capsule 40 mg PO DAILY DEPRESSION 01/11/18 [History Last Taken 04/19/19 08:00] nortriptyline 10 mg capsule 10 mg PO QHS SLEEP 01/11/18 [History Last Taken 04/18/19] nystatin 100,000 unit/gram topical ointment 1 applic topical 4X/DAY PRN GROIN 01/11/18 [History Last Taken 02/23/18] prochlorperazine maleate 10 mg tablet 10 mg PO Q8H PRN PRN Migraine Symptoms 01/11/18 [History Last Taken 02/23/18] risperidone 1 mg tablet 1 mg PO BREAKFAST SCHIZOPHRENIA 01/11/18 [History Last Taken 04/19/19] risperidone 2 mg tablet 2 mg PO QHS SHIZOPHRENIA 01/11/18 [History Last Taken 02/23/18] mometasone-formoterol HFA 200 mcg-5 mcg/actuation aerosol inhaler 2 puff IH BID BREATHING 02/17/18 [History Last Taken 04/19/19 08:00] verapamil 80 mg tablet 40 mg PO TID BLOOD PRESSURE 02/24/18 [History Last Taken 04/19/19] gabapentin 100 mg capsule 100 mg PO TID #42 caps 11/27/18 [Rx Last Taken 04/19/19 08:00] ondansetron 4 mg disintegrating tablet 4 mg PO Q6H PRN PRN Nausea #10 tabs 03/11/19 [Rx Last Taken 04/19/19 08:00] promethazine 25 mg tablet 25 mg PO Q6H PRN PRN Nausea #10 tabs 04/18/19 [Rx Last Taken Unknown] tizanidine 4 mg tablet 4 mg PO BID PRN PRN Spasms 04/19/19 [History Last Taken Unknown] acetaminophen 325 mg tablet 325 mg PO Q6H PRN PRN Headache 06/28/19 [History Last Taken Unknown] cetirizine 10 mg capsule 10 mg PO DAILY 06/28/19 [History Last Taken Unknown] dicyclomine 10 mg capsule 10 mg PO TIDAC 06/28/19 [History Last Taken Unknown] food supplemt, lactose-reduced 0.05 gram-1.5 kcal/mL oral liquid 237 ml PO BID 06/28/19 [History Last Taken Unknown] indomethacin 25 mg capsule 25 mg PO TIDCM 06/28/19 [History Last Taken Unknown] meloxicam 15 mg tablet 15 mg PO DAILY 06/28/19 [History Last Taken Unknown] omeprazole 20 mg capsule,delayed release 20 mg PO BID 06/28/19 [History Last Taken Unknown] sumatriptan succinate 100 mg tablet 100 mg PO BID PRN Migraine Symptoms 06/28/19 [History Last Taken Unknown] ondansetron 4 mg disintegrating tablet 4 mg PO Q8H PRN PRN Nausea #10 tabs 03/09/20 [Rx Last Taken Unknown] naproxen 500 mg tablet 500 mg PO BID #14 tabs 04/22/21 [Rx Last Taken Unknown] orphenadrine citrate 100 mg tablet,extended release 100 mg PO BID PRN spasm #7 tabs 07/14/21 [Rx Last Taken Unknown] doxycycline hyclate 100 mg tablet 100 mg PO BID #14 tabs 12/18/21 [Rx Last Taken Unknown] naproxen 500 mg tablet 500 mg PO BID #14 tabs 12/18/21 [Rx Last Taken Unknown] ondansetron 4 mg disintegrating tablet 4 mg PO Q6H PRN nausea and vomiting #14 tabs 12/18/21 [Rx Last Taken Unknown] doxycycline hyclate 100 mg tablet 100 mg PO BID #20 tabs 01/08/22 [Rx Last Taken Unknown] doxycycline hyclate 100 mg capsule 100 mg PO BID #20 caps 08/16/22 [Rx Last Taken Unknown] Allergy/AdvReac Type Severity Reaction Status Date / Time coconut Allergy Hives Verified 08/16/22 09:34 hydrocodone bitartrate Allergy Hives Verified 08/16/22 09:34 [From Vicodin] strawberry Allergy Hives Verified 08/16/22 09:34 acetaminophen AdvReac Nausea/hive Verified 08/16/22 09:34 s baclofen AdvReac IT MAKES Verified 08/16/22 09:34 HIM LIGHTHEADED AND SICK lactose AdvReac Nausea Verified 08/16/22 09:34 Penicillins AdvReac Nausea Verified 08/16/22 09:34 Surgical History History of laparoscopic cholecystectomy (~04/20/19) Social History Smoking Status: Former smoker ROS ROS ED ROS Narrative Past medical history: Reviewed Medications: Reviewed Social history: Noncontributory Review of systems: All systems negative except as indicated General: No fever Eyes: No visual changes ENT: No upper airway congestion, normal voice Neck: No neck pain Cardiovascular: No chest pain Respiratory: As in HPI Gastrointestinal: No abdominal pain, nausea vomiting or diarrhea Genitourinary: No dysuria Musculoskeletal: Denies myalgias no difficulty with ambulation Skin: No rash Neurological: No memory loss, confusion or any focal weakness EXAM Physical Exam Narrative Exam Narrative: Physical exam General: Well nourished, Well developed, No Acute Distress Head: Normocephalic, Atraumatic Eyes: Conjunctiva not pale ENT: Moist mucous membranes, no pharyngitis. Neck: Supple, Nontender, No lymphadenopathy Cardiovascular: Regular rate, Regular rhythm Respiratory: No distress, some bronchial breath sounds and some coarse breath sounds. No obvious wheezing. Abdomen: Soft, Nontender, Nondistended Back: Nontender, Normal Inspection. Negative for: CVA tenderness Extremities: Nontender, No edema Skin: Normal color, No rash Const Vital Signs: 08/16/22 09:35 Temperature 97.8 F Temperature Source Temporal Pulse Rate 76 Respiratory Rate 16 Blood Pressure 128/78 H Blood Pressure Mean 94 Pulse Ox 100 Oxygen Delivery Method Room Air MDM MDM MDM Narrative Medical decision making narrative: Patient has bronchitis however at times his cough is productive its been ongoing for 2 weeks, I thought about an x-ray, but his lungs are just coarse and I would likely treat him with antibiotics regardless of whether he has a pneumonia or not. Therefore I believe the x-ray can be deferred for now. He is a diabetic I thought about checking his blood sugars however he seems to have a good handle on his blood sugars in talking to him and I do not believe CBC or PGT is warranted at this time. He appears well and I will discharge in stable condition. Discharge Plan Triage Chief Complaint: Cough ED Provider: hSakir Yates Dx/Rx/DC Orders Clinical Impression: Bronchitis, Cough Instructions: ED Upper Resp Infec Abx Tx Prescriptions: New doxycycline hyclate 100 mg capsule 100 mg PO BID Qty: 20 0RF No Action divalproex 500 MG tablet,delayed release (DR/EC) 1,500 mg PO QHS Label Comments: seizure metformin 1,000 MG tablet 1,000 mg PO BIDCM Label Comments: diabetic albuterol sulfate 1 PUFF inhaler 2 puff inhalation Q6H PRN PRN (Reason: Sob &/Or Wheezing) Label Comments: breathing cholecalciferol (vitamin D3) 1,000 UNIT tablet 50,000 unit PO QWEEK Label Comments: supplement lisinopril 10 MG tablet 30 mg PO DAILY Label Comments: blood pressure insulin aspart U-100 100 UNITS/ML insulin pen 6 units subcut TIDCM Label Comments: diabetic triamcinolone acetonide 1 APPLIC cream 1 applic topical TID PRN PRN (Reason: YEAST INFECTION) duloxetine 30 MG capsule 30 mg PO DAILY nadolol 20 MG tablet 40 mg PO DAILY insulin degludec 200 UNIT/ML insulin pen 25 unit SQ BREAKFAST nystatin 1 APPLIC ointment 1 applic topical 4X/DAY PRN (Reason: GROIN) doxepin 25 MG capsule 25 - 50 mg PO QHS PRN PRN (Reason: Insomnia) prochlorperazine maleate 10 MG tablet 10 mg PO Q8H PRN PRN (Reason: Migraine Symptoms) risperidone 2 MG tablet 2 mg PO QHS nortriptyline 10 MG capsule 10 mg PO QHS fluoxetine 20 MG capsule 40 mg PO DAILY risperidone 1 MG tablet 1 mg PO BREAKFAST diclofenac sodium 100 GM gel 1 applic TP 4X/DAY PRN (Reason: BACK PAIN) mometasone-formoterol 8.8 GM HFA aerosol inhaler 2 puff IH BID verapamil 80 MG tablet 40 mg PO TID gabapentin 100 MG capsule 100 mg PO TID Qty: 42 0RF Label Comments: NEUROPATHIC PAIN ondansetron 4 MG tablet 4 mg PO Q6H PRN PRN (Reason: Nausea) Qty: 10 0RF promethazine 25 MG tablet 25 mg PO Q6H PRN PRN (Reason: Nausea) Qty: 10 0RF tizanidine 4 MG tablet 4 mg PO BID PRN PRN (Reason: Spasms) acetaminophen 325 MG tablet 325 mg PO Q6H PRN PRN (Reason: Headache) sumatriptan succinate 100 MG tablet 100 mg PO BID PRN (Reason: Migraine Symptoms) meloxicam 15 MG tablet 15 mg PO DAILY indomethacin 25 MG capsule 25 mg PO TIDCM omeprazole 20 MG capsule,delayed release(DR/EC) 20 mg PO BID cetirizine 10 MG capsule 10 mg PO DAILY food supplemt, lactose-reduced 237 ML liquid 237 ml PO BID dicyclomine 10 MG capsule 10 mg PO TIDAC Label Comments: BELLY DISCOMFORT ondansetron 4 MG tablet 4 mg PO Q8H PRN PRN (Reason: Nausea) Qty: 10 0RF naproxen 500 MG tablet 500 mg PO BID Qty: 14 0RF orphenadrine citrate 100 mg tablet extended release 100 mg PO BID PRN (Reason: spasm) Qty: 7 0RF doxycycline hyclate 100 mg tablet 100 mg PO BID Qty: 14 0RF ondansetron 4 mg tablet,disintegrating 4 mg PO Q6H PRN (Reason: nausea and vomiting) Qty: 14 0RF Rx Instructions: to take as needed if doxy causes nausea which was listed. naproxen 500 mg tablet 500 mg PO BID Qty: 14 0RF doxycycline hyclate 100 mg tablet 100 mg PO BID Qty: 20 0RF Primary Care Provider: Ranjit Azar Referrals: Ranjit Azar DO [Primary Care Provider] - 3-5 Days Disposition Disposition: Home, Self Care
== END 2022-08-16 10:04 | disposition home or self-care (01) ==
LOC: ED 09:54
PROVIDERS: Emergency Provider Emergency Medicine; PCP Student in an Organized Health Care Education/Training Program; Visit Provider Emergency Medicine
DX: J40 Bronchitis, not specified as acute or chronic (principal); E11.9 Type 2 diabetes mellitus without complications; I10 Essential (primary) hypertension; Z87.891 Personal history of nicotine dependence
CPT/HCPCS: 99282

== ENCOUNTER 2022-12-24 09:58 | Emergency (ER) | payer MEDICAID, SELFPAY ==
[2022-12-24 09:59] VITALS: BP 177/110; PULSE 98; RESP 16; TEMP 36.6; O2SAT 99; BMI 38.1
--- NOTE | 2022-12-24 10:33 | EX.ED.DYSGE1 ---
HPI History of Present Illness Chief Complaint: Abscess Informant: patient Narrative Narrative: 37-year-old type II diabetic presenting with 2 days worth of pain to the radial aspect of the right thumbnail. Does not bite his nails. States he has had these before and needed to get them drained so he came in early this time. Upon arrival it started draining and he states now he is relieved, that is the main reason he came. Denies any fevers or systemic symptoms. [facility] Medical History Acute cholecystitis Acute gangrenous cholecystitis Asthma Cholecystitis Depression DM2 (diabetes mellitus, type 2) HTN (hypertension) Schizoaffective disorder Seizure SOB (shortness of breath) Home Medications albuterol sulfate 90 mcg/actuation aerosol inhaler 2 puff inhalation Q6H PRN PRN Sob &/Or Wheezing 10/22/14 [History Last Taken 04/19/19 08:00] cholecalciferol (vitamin D3) 25 mcg (1,000 unit) tablet 50,000 unit PO QWEEK replacement 10/22/14 [History Last Taken 04/19/19] divalproex 500 mg tablet,delayed release 1,500 mg PO QHS SEIZURES 10/22/14 [History Last Taken 04/18/19 22:30] metformin 1,000 mg tablet 1,000 mg PO BIDCM DIABETES 10/22/14 [History Last Taken 04/19/19 08:00] lisinopril 10 mg tablet 30 mg PO DAILY BLOOD PRESSURE 03/06/15 [History Last Taken 04/18/19] insulin aspart U-100 100 unit/mL (3 mL) subcutaneous pen 6 units subcut TIDCM DIABETES 11/12/15 [History Last Taken 04/19/19 08:00] duloxetine 30 mg capsule,delayed release 30 mg PO DAILY DEPRESSION 02/29/16 [History Last Taken 04/19/19 08:00] triamcinolone acetonide 0.025 % topical cream 1 applic topical TID PRN PRN YEAST INFECTION 02/29/16 [History Last Taken 02/23/18] insulin degludec 200 unit/mL (3 mL) subcutaneous pen 25 unit SQ BREAKFAST DIABETES 09/10/17 [History Last Taken 04/19/19 08:00] nadolol 20 mg tablet 40 mg PO DAILY BLOOD PRESSURE 09/10/17 [History Last Taken 04/19/19 08:00] diclofenac sodium 1 % topical gel 1 applic TP 4X/DAY PRN BACK PAIN 01/11/18 [History Last Taken 04/08/19] doxepin 25 mg capsule 25 - 50 mg PO QHS PRN PRN Insomnia 01/11/18 [History Last Taken 04/18/19 22:30] fluoxetine 20 mg capsule 40 mg PO DAILY DEPRESSION 01/11/18 [History Last Taken 04/19/19 08:00] nortriptyline 10 mg capsule 10 mg PO QHS SLEEP 01/11/18 [History Last Taken 04/18/19] nystatin 100,000 unit/gram topical ointment 1 applic topical 4X/DAY PRN GROIN 01/11/18 [History Last Taken 02/23/18] prochlorperazine maleate 10 mg tablet 10 mg PO Q8H PRN PRN Migraine Symptoms 01/11/18 [History Last Taken 02/23/18] risperidone 1 mg tablet 1 mg PO BREAKFAST SCHIZOPHRENIA 01/11/18 [History Last Taken 04/19/19] risperidone 2 mg tablet 2 mg PO QHS SHIZOPHRENIA 01/11/18 [History Last Taken 02/23/18] mometasone-formoterol HFA 200 mcg-5 mcg/actuation aerosol inhaler 2 puff IH BID BREATHING 02/17/18 [History Last Taken 04/19/19 08:00] verapamil 80 mg tablet 40 mg PO TID BLOOD PRESSURE 02/24/18 [History Last Taken 04/19/19] gabapentin 100 mg capsule 100 mg PO TID #42 caps 11/27/18 [Rx Last Taken 04/19/19 08:00] ondansetron 4 mg disintegrating tablet 4 mg PO Q6H PRN PRN Nausea #10 tabs 03/11/19 [Rx Last Taken 04/19/19 08:00] promethazine 25 mg tablet 25 mg PO Q6H PRN PRN Nausea #10 tabs 04/18/19 [Rx Last Taken Unknown] tizanidine 4 mg tablet 4 mg PO BID PRN PRN Spasms 04/19/19 [History Last Taken Unknown] acetaminophen 325 mg tablet 325 mg PO Q6H PRN PRN Headache 06/28/19 [History Last Taken Unknown] cetirizine 10 mg capsule 10 mg PO DAILY 06/28/19 [History Last Taken Unknown] dicyclomine 10 mg capsule 10 mg PO TIDAC 06/28/19 [History Last Taken Unknown] food supplemt, lactose-reduced 0.05 gram-1.5 kcal/mL oral liquid 237 ml PO BID 06/28/19 [History Last Taken Unknown] indomethacin 25 mg capsule 25 mg PO TIDCM 06/28/19 [History Last Taken Unknown] meloxicam 15 mg tablet 15 mg PO DAILY 06/28/19 [History Last Taken Unknown] omeprazole 20 mg capsule,delayed release 20 mg PO BID 06/28/19 [History Last Taken Unknown] sumatriptan succinate 100 mg tablet 100 mg PO BID PRN Migraine Symptoms 06/28/19 [History Last Taken Unknown] ondansetron 4 mg disintegrating tablet 4 mg PO Q8H PRN PRN Nausea #10 tabs 03/09/20 [Rx Last Taken Unknown] naproxen 500 mg tablet 500 mg PO BID #14 tabs 04/22/21 [Rx Last Taken Unknown] orphenadrine citrate 100 mg tablet,extended release 100 mg PO BID PRN spasm #7 tabs 07/14/21 [Rx Last Taken Unknown] doxycycline hyclate 100 mg tablet 100 mg PO BID #14 tabs 12/18/21 [Rx Last Taken Unknown] naproxen 500 mg tablet 500 mg PO BID #14 tabs 12/18/21 [Rx Last Taken Unknown] ondansetron 4 mg disintegrating tablet 4 mg PO Q6H PRN nausea and vomiting #14 tabs 12/18/21 [Rx Last Taken Unknown] doxycycline hyclate 100 mg tablet 100 mg PO BID #20 tabs 01/08/22 [Rx Last Taken Unknown] doxycycline hyclate 100 mg capsule 100 mg PO BID #20 caps 08/16/22 [Rx Last Taken Unknown] Allergy/AdvReac Type Severity Reaction Status Date / Time hydrocodone bitartrate Allergy Hives Verified 12/24/22 10:02 [From Vicodin] acetaminophen AdvReac Nausea/hive Verified 12/24/22 10:02 s baclofen AdvReac IT MAKES Verified 12/24/22 10:02 HIM LIGHTHEADED AND SICK lactose AdvReac Nausea Verified 12/24/22 10:02 Penicillins AdvReac Nausea Verified 12/24/22 10:02 Surgical History History of laparoscopic cholecystectomy (~04/20/19) Social History Smoking Status: Former smoker ROS ROS ED Constitutional Constitutional ED: Denies chills or fever(s) Musculoskeletal Musculoskeletal: Reports extremity pain; Denies neck pain Integumentary Reports wounds; Denies Abrasions or rash Neurologic Neurologic: Denies paresthesias or weakness EXAM Physical Exam Const Vital Signs: 12/24/22 09:59 Temperature 98 F Temperature Source Temporal Pulse Rate 98 Respiratory Rate 16 Blood Pressure 177/110 H Blood Pressure Mean 132 Pulse Ox 99 Oxygen Delivery Method Room Air Positive well nourished and well developed General Appearance ED: well developed and NAD Neck full ROM and supple Back/Spine normal ROM and normal to inspection Extremity Extremity Narrative: Tenderness to the radial aspect of the nail of the right thumb, slight amount of erythema here not a lot of swelling, small amount of purulent discharge expressible, does not progress to the base of the nail or to the pad of the thumb. Full range of motion. No lymphangitis. Neuro oriented x3, no focal motor deficits and no sensory deficits noted Sensorium / Orientation: alert Psych mental status grossly normal and thought process normal Skin Skin Narrative: Small paronychia radial aspect right thumb expressing small amount of pus. Rashes: no rashes MDM MDM MDM Narrative Medical decision making narrative: Consistent with a mild paronychia that is currently draining. I expressed pus from it and cleaned it. Nurses soaked him in saline and chlorhexidine, followed by bacitracin dressing, I advised him to continue doing this at home I do not think he needs systemic antibiotics right now. Also advised to follow-up for blood pressure recheck. We discussed reasons to return especially if worsening. He is comfortable with that plan. Discharge Plan Triage Chief Complaint: Abscess ED Provider: Francisco Tan Dx/Rx/DC Orders Clinical Impression: Episode of hypertension, Acute paronychia of right thumb Instructions: Controlling High Blood Pressure, ED Paronychia of the Finger or Toe Prescriptions: No Action divalproex 500 MG tablet,delayed release (DR/EC) 1,500 mg PO QHS Patient Comments: seizure metformin 1,000 MG tablet 1,000 mg PO BIDCM Patient Comments: diabetic albuterol sulfate 1 PUFF inhaler 2 puff inhalation Q6H PRN PRN (Reason: Sob &/Or Wheezing) Patient Comments: breathing cholecalciferol (vitamin D3) 1,000 UNIT tablet 50,000 unit PO QWEEK Patient Comments: supplement lisinopril 10 MG tablet 30 mg PO DAILY Patient Comments: blood pressure insulin aspart U-100 100 UNITS/ML insulin pen 6 units subcut TIDCM Patient Comments: diabetic triamcinolone acetonide 1 APPLIC cream 1 applic topical TID PRN PRN (Reason: YEAST INFECTION) duloxetine 30 MG capsule 30 mg PO DAILY nadolol 20 MG tablet 40 mg PO DAILY insulin degludec 200 UNIT/ML insulin pen 25 unit SQ BREAKFAST nystatin 1 APPLIC ointment 1 applic topical 4X/DAY PRN (Reason: GROIN) doxepin 25 MG capsule 25 - 50 mg PO QHS PRN PRN (Reason: Insomnia) prochlorperazine maleate 10 MG tablet 10 mg PO Q8H PRN PRN (Reason: Migraine Symptoms) risperidone 2 MG tablet 2 mg PO QHS nortriptyline 10 MG capsule 10 mg PO QHS fluoxetine 20 MG capsule 40 mg PO DAILY risperidone 1 MG tablet 1 mg PO BREAKFAST diclofenac sodium 100 GM gel 1 applic TP 4X/DAY PRN (Reason: BACK PAIN) mometasone-formoterol 8.8 GM HFA aerosol inhaler 2 puff IH BID verapamil 80 MG tablet 40 mg PO TID gabapentin 100 MG capsule 100 mg PO TID Qty: 42 0RF Patient Comments: NEUROPATHIC PAIN ondansetron 4 MG tablet 4 mg PO Q6H PRN PRN (Reason: Nausea) Qty: 10 0RF promethazine 25 MG tablet 25 mg PO Q6H PRN PRN (Reason: Nausea) Qty: 10 0RF tizanidine 4 MG tablet 4 mg PO BID PRN PRN (Reason: Spasms) acetaminophen 325 MG tablet 325 mg PO Q6H PRN PRN (Reason: Headache) sumatriptan succinate 100 MG tablet 100 mg PO BID PRN (Reason: Migraine Symptoms) meloxicam 15 MG tablet 15 mg PO DAILY indomethacin 25 MG capsule 25 mg PO TIDCM omeprazole 20 MG capsule,delayed release(DR/EC) 20 mg PO BID cetirizine 10 MG capsule 10 mg PO DAILY food supplemt, lactose-reduced 237 ML liquid 237 ml PO BID dicyclomine 10 MG capsule 10 mg PO TIDAC Patient Comments: BE[employer] ondansetron 4 MG tablet 4 mg PO Q8H PRN PRN (Reason: Nausea) Qty: 10 0RF naproxen 500 MG tablet 500 mg PO BID Qty: 14 0RF orphenadrine citrate 100 mg tablet extended release 100 mg PO BID PRN (Reason: spasm) Qty: 7 0RF doxycycline hyclate 100 mg tablet 100 mg PO BID Qty: 14 0RF ondansetron 4 mg tablet,disintegrating 4 mg PO Q6H PRN (Reason: nausea and vomiting) Qty: 14 0RF Rx Instructions: to take as needed if doxy causes nausea which was listed. naproxen 500 mg tablet 500 mg PO BID Qty: 14 0RF doxycycline hyclate 100 mg tablet 100 mg PO BID Qty: 20 0RF doxycycline hyclate 100 mg capsule 100 mg PO BID Qty: 20 0RF Primary Care Provider: Ranjit Azar Referrals: Ranjit Azar DO [Primary Care Provider] - (Follow-up in the office for blood pressure and wound recheck within the next week or 2. If wound infection getting worse despite advised treatment return to the ER.) Activity Restrictions/Additional Instructions: Soak your thumb in warm-hot soapy water twice daily for the next couple days, 15 minutes at a time, followed by applying a new dressing with antibiotic ointment. Disposition Disposition: Home, Self Care
== END 2022-12-24 11:16 | disposition home or self-care (01) ==
LOC: ED 10:46
PROVIDERS: Emergency Provider Emergency Medicine; PCP Student in an Organized Health Care Education/Training Program; Visit Provider Emergency Medicine
DX: L03.011 Cellulitis of right finger (principal); E11.9 Type 2 diabetes mellitus without complications; Z79.4 Long term (current) use of insulin; I10 Essential (primary) hypertension; J45.909 Unspecified asthma, uncomplicated; Z79.84 Long term (current) use of oral hypoglycemic drugs; Z79.899 Other long term (current) drug therapy; Z87.891 Personal history of nicotine dependence
CPT/HCPCS: 99282

== ENCOUNTER 2023-02-08 12:14 | Inpatient (IN) | payer MEDICAID, SELFPAY ==
[2023-02-08] VITALS (8 sets, daily range): BP systolic 131–182; BP diastolic 70–119; PULSE 80–118; RESP 15–32; TEMP 36.4–36.8; O2SAT 94–99; BMI 38.2; BMI 36.6
--- NOTE | 2023-02-08 12:23 | CT_ITS ---
STUDY: CT BRAIN WITHOUT CONTRAST REASON FOR EXAM: Male, 37 years old. Generalized tonic-clonic seizure, pinpoint pupils RADIATION DOSAGE (If Supplied By Facility): CTDIvol = ( 44.99 ) mGy, DLP = ( 796.11 ) mGycm TECHNIQUE: Transaxial CT imaging of the brain was performed without administration of intravenous contrast material. Individualized dose optimization techniques were used for this CT. COMPARISON: Comparison is made with prior study April 22, 2020. FINDINGS: Normal soft tissue structures. Normal calvarium. Stable prominence of the occipital horns of the lateral ventricles. 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 Normal white matter tracts of the cerebral hemispheres. Normal basal ganglia and thalami. Normal brainstem. Normal cerebellum. There is no intracranial hemorrhage. There are no findings of an acute ischemic infarction. Normal visualized paranasal sinuses. CT/Brain/Head without Contrast IMPRESSION: Stable prominence of the occipital horns of the lateral ventricles bilaterally. 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 Electronically Signed: Florentin Quan MD at 13:09 EDT ,
--- NOTE | 2023-02-08 12:25 | EX.ED.DYSGE1 ---
HPI History of Present Illness Chief Complaint: Seizure Detail of Chief Complaint: Generalized tonic-clonic seizure Informant: spouse/S.O. and EMS Onset/Context/Timing Onset: Today (Duration 5 to 10 minutes, patient received 10 mg of Versed) Context: Sudden Onset Timing: Intermittent Quality: Generalized tonic-clonic Location: Patient was at work Current Severity: Patient presently has a GCS of 3 Maximum Severity: Unknown Worsened by: Unable to determine Relieved by: Versed Associated Symptoms Associated Symptoms: Unknown Narrative Narrative: Patient is a 37-year-old male with history of type 2 diabetes supplemented with insulin, seizure disorder and GERD who presents after seizure at work. He received 10 mg of Versed IM. Upon arrival he has a GCS of 3. He has pinpoint pupils. He does not respond to painful or noxious stimuli. Prior similar symptoms: Yes (According to his significant other/ he has not had a seizure in 2 years) Recent Illness/Hospitalization: Yes (For minor complaint) [facility] Medical History Acute cholecystitis Acute gangrenous cholecystitis Asthma Cholecystitis Depression DM2 (diabetes mellitus, type 2) HTN (hypertension) Schizoaffective disorder Seizure SOB (shortness of breath) Home Medications albuterol sulfate 90 mcg/actuation aerosol inhaler 2 puff inhalation Q6H PRN PRN Sob &/Or Wheezing 10/22/14 [History Last Taken 04/19/19 08:00] cholecalciferol (vitamin D3) 25 mcg (1,000 unit) tablet 50,000 unit PO QWEEK replacement 10/22/14 [History Last Taken 04/19/19] divalproex 500 mg tablet,delayed release 1,500 mg PO QHS SEIZURES 10/22/14 [History Last Taken 04/18/19 22:30] metformin 1,000 mg tablet 1,000 mg PO BIDCM DIABETES 10/22/14 [History Last Taken 04/19/19 08:00] lisinopril 10 mg tablet 30 mg PO DAILY BLOOD PRESSURE 03/06/15 [History Last Taken 04/18/19] insulin aspart U-100 100 unit/mL (3 mL) subcutaneous pen 6 units subcut TIDCM DIABETES 11/12/15 [History Last Taken 04/19/19 08:00] duloxetine 30 mg capsule,delayed release 30 mg PO DAILY DEPRESSION 02/29/16 [History Last Taken 04/19/19 08:00] triamcinolone acetonide 0.025 % topical cream 1 applic topical TID PRN PRN YEAST INFECTION 02/29/16 [History Last Taken 02/23/18] insulin degludec 200 unit/mL (3 mL) subcutaneous pen 25 unit SQ BREAKFAST DIABETES 09/10/17 [History Last Taken 04/19/19 08:00] nadolol 20 mg tablet 40 mg PO DAILY BLOOD PRESSURE 09/10/17 [History Last Taken 04/19/19 08:00] diclofenac sodium 1 % topical gel 1 applic TP 4X/DAY PRN BACK PAIN 01/11/18 [History Last Taken 04/08/19] doxepin 25 mg capsule 25 - 50 mg PO QHS PRN PRN Insomnia 01/11/18 [History Last Taken 04/18/19 22:30] fluoxetine 20 mg capsule 40 mg PO DAILY DEPRESSION 01/11/18 [History Last Taken 04/19/19 08:00] nortriptyline 10 mg capsule 10 mg PO QHS SLEEP 01/11/18 [History Last Taken 04/18/19] nystatin 100,000 unit/gram topical ointment 1 applic topical 4X/DAY PRN GROIN 01/11/18 [History Last Taken 02/23/18] prochlorperazine maleate 10 mg tablet 10 mg PO Q8H PRN PRN Migraine Symptoms 01/11/18 [History Last Taken 02/23/18] risperidone 1 mg tablet 1 mg PO BREAKFAST SCHIZOPHRENIA 01/11/18 [History Last Taken 04/19/19] risperidone 2 mg tablet 2 mg PO QHS SHIZOPHRENIA 01/11/18 [History Last Taken 02/23/18] mometasone-formoterol HFA 200 mcg-5 mcg/actuation aerosol inhaler 2 puff IH BID BREATHING 02/17/18 [History Last Taken 04/19/19 08:00] verapamil 80 mg tablet 40 mg PO TID BLOOD PRESSURE 02/24/18 [History Last Taken 04/19/19] gabapentin 100 mg capsule 100 mg PO TID #42 caps 11/27/18 [Rx Last Taken 04/19/19 08:00] ondansetron 4 mg disintegrating tablet 4 mg PO Q6H PRN PRN Nausea #10 tabs 03/11/19 [Rx Last Taken 04/19/19 08:00] promethazine 25 mg tablet 25 mg PO Q6H PRN PRN Nausea #10 tabs 04/18/19 [Rx Last Taken Unknown] tizanidine 4 mg tablet 4 mg PO BID PRN PRN Spasms 04/19/19 [History Last Taken Unknown] acetaminophen 325 mg tablet 325 mg PO Q6H PRN PRN Headache 06/28/19 [History Last Taken Unknown] cetirizine 10 mg capsule 10 mg PO DAILY 06/28/19 [History Last Taken Unknown] dicyclomine 10 mg capsule 10 mg PO TIDAC 06/28/19 [History Last Taken Unknown] food supplemt, lactose-reduced 0.05 gram-1.5 kcal/mL oral liquid 237 ml PO BID 06/28/19 [History Last Taken Unknown] indomethacin 25 mg capsule 25 mg PO TIDCM 06/28/19 [History Last Taken Unknown] meloxicam 15 mg tablet 15 mg PO DAILY 06/28/19 [History Last Taken Unknown] omeprazole 20 mg capsule,delayed release 20 mg PO BID 06/28/19 [History Last Taken Unknown] sumatriptan succinate 100 mg tablet 100 mg PO BID PRN Migraine Symptoms 06/28/19 [History Last Taken Unknown] ondansetron 4 mg disintegrating tablet 4 mg PO Q8H PRN PRN Nausea #10 tabs 03/09/20 [Rx Last Taken Unknown] naproxen 500 mg tablet 500 mg PO BID #14 tabs 04/22/21 [Rx Last Taken Unknown] orphenadrine citrate 100 mg tablet,extended release 100 mg PO BID PRN spasm #7 tabs 07/14/21 [Rx Last Taken Unknown] naproxen 500 mg tablet 500 mg PO BID #14 tabs 12/18/21 [Rx Last Taken Unknown] ondansetron 4 mg disintegrating tablet 4 mg PO Q6H PRN nausea and vomiting #14 tabs 12/18/21 [Rx Last Taken Unknown] Allergy/AdvReac Type Severity Reaction Status Date / Time hydrocodone bitartrate Allergy Hives Verified 12/24/22 10:02 [From Vicodin] acetaminophen AdvReac Nausea/hive Verified 12/24/22 10:02 s baclofen AdvReac IT MAKES Verified 12/24/22 10:02 HIM LIGHTHEADED AND SICK lactose AdvReac Nausea Verified 12/24/22 10:02 Penicillins AdvReac Nausea Verified 12/24/22 10:02 Surgical History History of laparoscopic cholecystectomy (~04/20/19) Social History household members: spouse and family current occupational status: employed Smoking Status: Never smoker ROS ROS ED Review of Systems ROS Unobtainable: due to mental status EXAM Physical Exam Const Vital Signs: 02/08/23 12:16 02/08/23 12:47 Temperature 97.8 F Temperature Source Temporal Pulse Rate 118 H 116 H Respiratory Rate 32 H 24 H Blood Pressure 162/115 H 131/70 H Blood Pressure Mean 130 90 Pulse Ox 94 98 Oxygen Delivery Method Nasal Cannula Nasal Cannula Oxygen Flow Rate (L/min) 2 2 Positive well nourished, well developed and obese Constitutional Narrative: Socks was 82% on room air. Nurse placed him on oxygen. This may be due to the Versed. General Appearance ED: well developed and NAD; Negative for cyanotic or diaphoretic Nutritional Appearance: obese HEENT Reports dry mucous membranes HEENT Narrative: Head is atraumatic normocephalic. Ears normal. TMs normal. Nares patent. Mucosa is dry. Difficult to see posterior pharynx. Mouth ED: Yes dry mucous membranes Mouth: dry mucous membranes Eyes Eyes Narrative: Pupils are pinpoint. Sclera is anicteric. Conjunctive is normal. General Eye ED: Negative for pale conjunctiva or scleral icterus Neck no lymphadenopathy, supple and no JVD Chest Wall inspection of chest normal and palpation of chest normal Resp normal respiratory effort and clear to auscultation bilaterally Cardio regular rhythm, S1 normal heart sound, S2 normal heart sound and no murmurs Rate: tachycardic GI non-tender, non-distended and no masses; Negative for hepatosplenomegaly Auscultation: hypoactive bowel sounds Neuro Neuro Narrative: GCS 3 Psych Psych Narrative: Unable to assess MDM MDM MDM Narrative Medical decision making narrative: Patient presents with seizure. According to spouse he has not had 1 2 years. This either represents a breakthrough seizure or there is something more significant. Patient's present status may be due to the fact that he received 10 mg of Versed. However with him having pinpoint pupils will obtain CT to rule out intracranial process. Appropriate blood work was ordered. Depakote level was obtained. Patient was made NPO. He was placed on the monitor. Monitor reveals a sinus tachycardia rate of 122. History & Record Review Additional record(s) reviewed:: Prior ED visit (There is been no visit for seizures in the past 3 years.) and Prior labs Lab Data Attestation: I reviewed the patient's lab results. Lab results narrative: CBC is unremarkable and unchanged from prior. Basic metabolic panel is marked for an elevated creatinine of 1.49. This is not normal for patient. Glucose is elevated 197 with normal CO2 anion gap. Valproic acid level is therapeutic at 89. Labs: Laboratory Results - last 24 hr 02/08/23 12:05 WBC 6.8 RBC 5.40 Hgb 14.2 Hct 43.8 MCV 81.1 MCH 26.3 L MCHC 32.4 RDW Std Deviation 36.8 RDW Coeff of Ferny 12.4 Plt Count 283 MPV 11.6 Immature Gran % (Auto) 0.400 Neut % (Auto) 54.5 Lymph % (Auto) 38.5 [place] % (Auto) 5.2 Eos % (Auto) 0.7 Baso % (Auto) 0.7 Absolute Neuts (auto) 3.7 Absolute Lymphs (auto) 2.60 Nucleated RBC % 0 Sodium 136 Potassium 3.7 Chloride 104 Carbon Dioxide 23.0 Anion Gap 9 BUN 15 Creatinine 1.49 H Estim Creat Clear Calc 57.90 Est GFR (MDRD) Af Amer 67 Est GFR (MDRD) Non-Af 56 L BUN/Creatinine Ratio 10.1 Glucose 197 H Calcium 9.9 Valproic Acid 89 Radiography Diagnostic Testing: Clinical Impression(s) from Imaging Studies Brain CT 02/08/23 12:23 IMPRESSION: Stable prominence of the occipital horns of the lateral ventricles bilaterally. 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 Electronically Signed: Florentin Quan MD at 13:09 EDT , Rhythm Strip Rhythm Strip: Sinus Tach Rate: 122 Ectopy: None Management Discussion w/another healthcare provider: Hospitalist (Hospitalist made aware of patient's history, physical and work-up. Plan is observation.) Treatment and Re-Evaluation :: Patient was reevaluated at 1350. Patient is still unresponsive. Suspect this is due to Versed since there is no acute abnormality noted on the CAT scan. Discharge Plan Dx/Rx/DC Orders Clinical Impression: Generalized tonic-clonic seizure, HTN (hypertension), Joya coma scale score 3-8, at arrival to emergency department, Breakthrough seizure, Elevated serum creatinine, Sinus tachycardia seen on residential monitor Disposition Disposition: Acute Care Hospital [facility]
[2023-02-08 12:34] LABS: Absolute Neutrophil Count 3.7 X10^3/uL (2.0-7.7); Basophil# 0.05 X10^3/uL; Basophil% 0.7 % (0-1); Eosinophil# 0.05 X10^3/uL; Eosinophils% 0.7 % (0-5); Hematocrit 43.8 % (40-54); Hemoglobin 14.2 g/dL (13.0-16.5); Lymphocyte % 38.5 % (19-41); Mean Corp Hgb Conc 32.4 g/dL (32-36); Mean Corpuscular Hgb 26.3 pg (27.0-32.0); Mean Corpuscular Volume 81.1 fL (80-94); Mean Platelet Vol. 11.6 fl (6.2-12.0); Monocyte# 0.35 X10^3/uL; Monocyte% 5.2 % (0-10); NRBC Flagged by Analyzer 0 % (0-5); Neutrophil # 3.67 X10^3/uL (2.7-7.7); Neutrophil % 54.5 % (47-70); Platelet Count 283 K/mm3 (150-450); RBC Distribution Width CV 12.4 % (11.6-14.6); RBC Distribution Width SD 36.8 fl (35.1-43.9); White Blood Count 6.8 K/mm3 (4.4-11.0)
[2023-02-08 12:48] LABS: Anion Gap 9 (5-15); BUN 15 mg/dL (7-18); BUN/Creat Ratio 10.1 RATIO (10-20); Calcium,Total 9.9 mg/dL (8.5-10.1); Chloride 104 mmol/L (98-107); Creatinine, Serum 1.49 mg/dL (0.70-1.30); EST Glomerular Filtration Rate 56 mL/min (>60); Est Glom Filt Rate - Afr Amer 67 mL/min (>60); Glucose 197 mg/dL (74-106); Potassium 3.7 mmol/L (3.5-5.1); Sodium Level 136 mmol/L (136-145)
[2023-02-08 12:49] LABS: Valproic Acid (Depakene) Level 89 ug/mL (50-100)
--- NOTE | 2023-02-08 13:52 | HP.PCM_ITS ---
HPI - General General Date of Admission: 02/08/23 Date of Service: 02/08/23 Chief Complaint: seizure HPI Narrative CHRISTINE HART, is a 37 M with a PMH as outlined who presents via the ED on 02/08/2023 with a complaint of seizure. He has a PMH of seizure disorder but hasnt had a seizure in about 3 years. He has been compliant with his Keppra. He had a seizure today which lasted about 5-10 mins whilst at work. He was given versed by the EMS, and when he arrived he had pinpoint pupils, and GCS was 3. He was unresponsive. Unable to do review of systems as he was unresponsive. Vitals in the ED were BP of 131/70, TX of 116, RR of 24 and oxygen sats of 98% on 2L of oxygen. CBC showed hb of 14.2, wbc of 6.8 and platelets of 283. Chemistry showed sodium of 136, bicarb of 23, Cr of 1.49. Valproic acid level was 89. 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 He is being admitted to be managed for seizure, likely breakthrough seizure in a patient with known seizure disorder. [facility] Medical History Acute cholecystitis Acute gangrenous cholecystitis Asthma Cholecystitis Depression DM2 (diabetes mellitus, type 2) HTN (hypertension) Schizoaffective disorder Seizure SOB (shortness of breath) Home Medications albuterol sulfate 90 mcg/actuation aerosol inhaler 2 puff inhalation Q6H PRN PRN Sob &/Or Wheezing 10/22/14 [History Last Taken 04/19/19 08:00] cholecalciferol (vitamin D3) 25 mcg (1,000 unit) tablet 50,000 unit PO QWEEK replacement 10/22/14 [History Last Taken 04/19/19] divalproex 500 mg tablet,delayed release 1,500 mg PO QHS SEIZURES 10/22/14 [History Last Taken 04/18/19 22:30] metformin 1,000 mg tablet 1,000 mg PO BIDCM DIABETES 10/22/14 [History Last Taken 04/19/19 08:00] lisinopril 10 mg tablet 30 mg PO DAILY BLOOD PRESSURE 03/06/15 [History Last Taken 04/18/19] insulin aspart U-100 100 unit/mL (3 mL) subcutaneous pen 6 units subcut TIDCM DIABETES 11/12/15 [History Last Taken 04/19/19 08:00] duloxetine 30 mg capsule,delayed release 30 mg PO DAILY DEPRESSION 02/29/16 [History Last Taken 04/19/19 08:00] triamcinolone acetonide 0.025 % topical cream 1 applic topical TID PRN PRN YEAST INFECTION 02/29/16 [History Last Taken 02/23/18] insulin degludec 200 unit/mL (3 mL) subcutaneous pen 39 unit SQ BREAKFAST DIABETES 09/10/17 [History Last Taken 04/19/19 08:00] nadolol 20 mg tablet 40 mg PO DAILY BLOOD PRESSURE 09/10/17 [History Last Taken 04/19/19 08:00] diclofenac sodium 1 % topical gel 1 applic TP 4X/DAY PRN BACK PAIN 01/11/18 [History Last Taken 04/08/19] doxepin 25 mg capsule 25 - 50 mg PO QHS PRN PRN Insomnia 01/11/18 [History Last Taken 04/18/19 22:30] fluoxetine 20 mg capsule 40 mg PO QHS DEPRESSION 01/11/18 [History Last Taken 04/19/19 08:00] nortriptyline 10 mg capsule 10 mg PO QHS SLEEP 01/11/18 [History Last Taken 04/18/19] nystatin 100,000 unit/gram topical ointment 1 applic topical 4X/DAY PRN GROIN 01/11/18 [History Last Taken 02/23/18] prochlorperazine maleate 10 mg tablet 10 mg PO Q8H PRN PRN Migraine Symptoms 01/11/18 [History Last Taken 02/23/18] risperidone 1 mg tablet 1 mg PO BREAKFAST SCHIZOPHRENIA 01/11/18 [History Last Taken 04/19/19] risperidone 2 mg tablet 2 mg PO QHS SHIZOPHRENIA 01/11/18 [History Last Taken 02/23/18] mometasone-formoterol HFA 200 mcg-5 mcg/actuation aerosol inhaler 2 puff IH BID BREATHING 02/17/18 [History Last Taken 04/19/19 08:00] verapamil 80 mg tablet 40 mg PO TID BLOOD PRESSURE 02/24/18 [History Last Taken 04/19/19] gabapentin 100 mg capsule 100 mg PO TID #42 caps 11/27/18 [Rx Last Taken 04/19/19 08:00] tizanidine 4 mg tablet 4 mg PO BID PRN PRN Spasms 04/19/19 [History Last Taken Unknown] acetaminophen 325 mg tablet 325 mg PO Q6H PRN PRN Headache 06/28/19 [History Last Taken Unknown] cetirizine 10 mg capsule 10 mg PO DAILY 06/28/19 [History Last Taken Unknown] dicyclomine 10 mg capsule 10 mg PO TIDAC 06/28/19 [History Last Taken Unknown] indomethacin 25 mg capsule 25 mg PO TIDCM 06/28/19 [History Last Taken Unknown] meloxicam 15 mg tablet 15 mg PO DAILY 06/28/19 [History Last Taken Unknown] omeprazole 20 mg capsule,delayed release 20 mg PO BID 06/28/19 [History Last Taken Unknown] sumatriptan succinate 100 mg tablet 100 mg PO BID PRN Migraine Symptoms 06/28/19 [History Last Taken Unknown] ondansetron 4 mg disintegrating tablet 4 mg PO Q8H PRN PRN Nausea #10 tabs 03/09/20 [Rx Last Taken Unknown] orphenadrine citrate 100 mg tablet,extended release 100 mg PO BID PRN spasm #7 tabs 07/14/21 [Rx Last Taken Unknown] ondansetron 4 mg disintegrating tablet 4 mg PO Q6H PRN nausea and vomiting #14 tabs 12/18/21 [Rx Last Taken Unknown] galcanezumab-gnlm 120 mg/mL subcutaneous syringe (Emgality) 120 mg subcut QMONTH migraines 02/08/23 [History Last Taken Unknown] semaglutide 0.25 mg or 0.5 mg (2 mg/3 mL) subcutaneous pen injector (Ozempic) 0.25 mg subcut QWEEK diabetes 02/08/23 [History Last Taken Unknown] Allergy/AdvReac Type Severity Reaction Status Date / Time hydrocodone bitartrate Allergy Hives Verified 12/24/22 10:02 [From Vicodin] acetaminophen AdvReac Nausea/hive Verified 12/24/22 10:02 s baclofen AdvReac IT MAKES Verified 12/24/22 10:02 HIM LIGHTHEADED AND SICK lactose AdvReac Nausea Verified 12/24/22 10:02 Penicillins AdvReac Nausea Verified 12/24/22 10:02 Family History no significant family his Surgical History History of laparoscopic cholecystectomy (~04/20/19) Social History household members: spouse and family current occupational status: employed Smoking Status: Never smoker ROS ROS Narrative unable to do review of systems due to encephalopathy Review of Systems ROS Unobtainable: due to encephalopathy Vital Signs Vital Signs Vital Signs: 02/08/23 12:16 02/08/23 12:47 Temperature 97.8 F Temperature Source Temporal Pulse Rate 118 H 116 H Respiratory Rate 32 H 24 H Blood Pressure 162/115 H 131/70 H Blood Pressure Mean 130 90 Pulse Ox 94 98 Oxygen Delivery Method Nasal Cannula Nasal Cannula Oxygen Flow Rate (L/min) 2 2 Weight Weight: 230 lb 2.601 oz Body Mass Index (BMI) 38.2 Physical Exam Const Constitutional Narrative: lethargic, obtunded Orientation / Consciousness: lethargic HEENT normocephalic and moist oral mucous membranes Eyes PERRL and EOMs intact bilaterally Neck no lymphadenopathy, supple and no JVD Lymph Lymphatic: no lymphadenopathy noted Resp Resp Narrative: diminished breath sounds bibasally, no wheezes or crackles. On room air. Cardio regular rate, regular rhythm, S1 normal heart sound, S2 normal heart sound and no murmurs GI normal to inspection, nondistended, normoactive bowel sounds, soft to palpation, non-tender and non-distended Extremity normal capillary refill, no clubbing, cyanosis or edema and no calf tenderness Skin General Skin Exam: no breakdown Neuro Neuro Narrative: lethargic, obtunded Results Lab / Micro Data 02/08/23 12:05 02/08/23 12:05 Labs: Laboratory Results - last 24 hr 02/08/23 12:05: WBC 6.8, RBC 5.40, Hgb 14.2, Hct 43.8, MCV 81.1, MCH 26.3 L, MCHC 32.4, RDW Std Deviation 36.8, RDW Coeff of Ferny 12.4, Plt Count 283, MPV 11.6, Immature Gran % (Auto) 0.400, Neut % (Auto) 54.5, Lymph % (Auto) 38.5, [place] % (Auto) 5.2, Eos % (Auto) 0.7, Baso % (Auto) 0.7, Absolute Neuts (auto) 3.7, Absolute Lymphs (auto) 2.60, Nucleated RBC % 0, Sodium 136, Potassium 3.7, Chloride 104, Carbon Dioxide 23.0, Anion Gap 9, BUN 15, Creatinine 1.49 H, Estim Creat Clear Calc 57.90, Est GFR (MDRD) Af Amer 67, Est GFR (MDRD) Non-Af 56 L, BUN/Creatinine Ratio 10.1, Glucose 197 H, Calcium 9.9, Valproic Acid 89 Rhythm Strip Rhythm Strip: Sinus Tach Rate: 122 Ectopy: None Radiology Impression Brain CT 02/08/23 12:23 IMPRESSION: Stable prominence of the occipital horns of the lateral ventricles bilaterally. 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 * * #Type 2 diabetes mellitus * on insulin degludec 25 units qam * ISS. Accuchecks ACHS. * also on metformin. Resume once patient's mentation has improved. * #History of migraines: on sumatriptan prn #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: on nadolol and verapamil DVT prophylaxis: lovenox Charges/Coding Visit Charges Inpatient E&M: 20408 Init Hosp L3
[2023-02-08] MEDS: 0.9% Normal Saline 1,000 ML 125 ML IV (18:18)
[2023-02-08] MEDS: 0.9% Saline Lock 10 ML Syringe IV ×2 (18:18→22:33)
[2023-02-08] MEDS: Insulin Lispro 100 UNIT/ML INSULN.PEN 6 UNIT SC (18:19)
[2023-02-08] MEDS: Albuterol 2.5 MG/3 ML VIAL.NEB. INHALATION (18:45)
[2023-02-08] MEDS: Budesonide Respules 0.5 MG/2 ML AMPUL.NEB. INHALATION (18:45)
[2023-02-08 18:47] LABS: Bedside Glucose 243 mg/dL (74-106)
[2023-02-08 19:31] LABS: AST(SGOT) 32 U/L (15-37); Alanine Aminotransfer ALT/SGPT 27 U/L (16-61); Albumin, Serum 3.7 g/dL (3.2-5.0); Alkaline Phosphatase 73 U/L (45-117); Bilirubin, Direct 0.17 mg/dL (0.00-0.30); Globulin 4.8 g/dL (2.2-4.2); Protein, Total 8.5 g/dL (6.4-8.2)
[2023-02-08 20:01] LABS: Ammonia < 10.0 umol/L (11-32)
[2023-02-08 21:02] LABS: Amphetamine Urine VISTA NEGATIVE (<1000 ng/mL); Barbiturate Urine VISTA NEGATIVE (< 200 ng/mL); Benzodiazepine Urine VISTA POSITIVE (< 200 ng/mL); Cocaine Urine VISTA NEGATIVE (< 300 ng/mL); Ecstacy Urine VISTA NEGATIVE (< 500 ng/mL); Methadone Urine VISTA NEGATIVE (< 300 ng/mL); PCP Urine VISTA NEGATIVE (< 25 ng/mL); THC Urine VISTA NEGATIVE (< 50 ng/mL); Vista UDS pH Range 5
--- NOTE | 2023-02-08 21:22 | NURSING ---
pt's blood sugar is 297 via pt's freestyle
[2023-02-08] MEDS: hydrALAZINE 20 MG/ML Vial 10 MG IV (22:34)
[2023-02-08] MEDS: Insulin Lispro 100 UNIT/ML INSULN.PEN SC (22:38)
--- NOTE | 2023-02-08 22:40 | NURSING ---
pt's blood sugar is 261 via pt's freestyle
[2023-02-08] MEDS: RisperiDONE 2 MG Tablet PO (22:47)
[2023-02-08] MEDS: Divalproex (ER) 500 MG Tablet 1500 MG PO (22:47)
[2023-02-08] MEDS: Pantoprazole Sodium 20 MG Tablet PO (22:47)
[2023-02-09] MEDS: 0.9% Normal Saline 1,000 ML 125 ML IV (01:59)
[2023-02-09 02:01] VITALS: BP 140/93; PULSE 85
[2023-02-09 04:50] VITALS: BP 138/80; PULSE 76; RESP 16; TEMP 36.5; O2SAT 99
[2023-02-09 06:19] LABS: Absolute Lymphocyte Count 2.23 X10^3/uL (0.83-4.51); Absolute Neutrophil Count 2.8 X10^3/uL (2.0-7.7); Basophil# 0.05 X10^3/uL; Basophil% 0.9 % (0-1); Eosinophil# 0.13 X10^3/uL; Eosinophils% 2.3 % (0-5); Hematocrit 40.3 % (40-54); Hemoglobin 12.8 g/dL (13.0-16.5); Lymphocyte # 2.23 X10^3/ul (0.83-4.51); Mean Corp Hgb Conc 31.8 g/dL (32-36); Mean Corpuscular Hgb 26.4 pg (27.0-32.0); Mean Corpuscular Volume 83.3 fL (80-94); Mean Platelet Vol. 11.2 fl (6.2-12.0); Monocyte# 0.45 X10^3/uL; Monocyte% 7.9 % (0-10); NRBC Flagged by Analyzer 0 % (0-5); Neutrophil # 2.84 X10^3/uL (2.7-7.7); Neutrophil % 49.6 % (47-70); Platelet Count 230 K/mm3 (150-450); RBC Distribution Width CV 12.2 % (11.6-14.6); RBC Distribution Width SD 37.2 fl (35.1-43.9); Red Blood Count 4.84 M/mm3 (4.6-6.2); White Blood Count 5.7 K/mm3 (4.4-11.0)
[2023-02-09] MEDS: Dicyclomine 10 MG Capsule PO ×3 (06:26→17:44)
[2023-02-09 06:44] LABS: Anion Gap 4 (5-15); BUN 12 mg/dL (7-18); BUN/Creat Ratio 14.3 RATIO (10-20); Calcium,Total 8.8 mg/dL (8.5-10.1); Chloride 106 mmol/L (98-107); Creatinine, Serum 0.84 mg/dL (0.70-1.30); EST Glomerular Filtration Rate 108 mL/min (>60); Est Glom Filt Rate - Afr Amer 131 mL/min (>60); Glucose 174 mg/dL (74-106); Potassium 3.4 mmol/L (3.5-5.1); Sodium Level 137 mmol/L (136-145)
[2023-02-09 07:15] VITALS: PULSE 73; RESP 16
[2023-02-09] MEDS: Budesonide Respules 0.5 MG/2 ML AMPUL.NEB. INHALATION (07:16)
[2023-02-09] MEDS: Albuterol 2.5 MG/3 ML VIAL.NEB. INHALATION ×2 (07:16→13:43)
--- NOTE | 2023-02-09 08:42 | PCM.PN.HOSP ---
Objective Data Objective Data Vital Signs: Vital Signs Temp Pulse Resp BP Pulse Ox O2 Del Method O2 Flow Rate 97.7 F L 76 16 138/80 H 99 Room Air 2 02/09/23 04:50 02/09/23 04:50 02/09/23 04:50 02/09/23 04:50 02/09/23 04:50 02/09/23 05:45 02/08/23 12:47 Oxygen Flow Rate (L/min) 2 Oxygen Delivery Method Room Air Weight: 220 lb Body Mass Index (BMI) 36.6 Intake & Output: Intake and Output for Last 24 Hours 02/07/23 02/08/23 02/09/23 23:59 23:59 23:59 Intake Total 800 / 800 1160.42 / 1160.42 Output Total 1000 / 1000 450 / 450 Balance -200 / -200 710.42 / 710.42 Lab / Micro Data 02/09/23 05:27 02/09/23 05:27 Labs: Laboratory Results - last 24 hr 02/08/23 12:05: WBC 6.8, RBC 5.40, Hgb 14.2, Hct 43.8, MCV 81.1, MCH 26.3 L, MCHC 32.4, RDW Std Deviation 36.8, RDW Coeff of Ferny 12.4, Plt Count 283, MPV 11.6, Immature Gran % (Auto) 0.400, Neut % (Auto) 54.5, Lymph % (Auto) 38.5, [place] % (Auto) 5.2, Eos % (Auto) 0.7, Baso % (Auto) 0.7, Absolute Neuts (auto) 3.7, Absolute Lymphs (auto) 2.60, Nucleated RBC % 0, Sodium 136, Potassium 3.7, Chloride 104, Carbon Dioxide 23.0, Anion Gap 9, BUN 15, Creatinine 1.49 H, Estim Creat Clear Calc 57.90, Est GFR (MDRD) Af Amer 67, Est GFR (MDRD) Non-Af 56 L, BUN/Creatinine Ratio 10.1, Glucose 197 H, Calcium 9.9, Total Bilirubin 0.60, Direct Bilirubin 0.17, AST 32, ALT 27, Alkaline Phosphatase 73, Total Protein 8.5 H, Albumin 3.7, Globulin 4.8 H, Valproic Acid 89 02/08/23 18:23: POC Glucose 243 H 02/08/23 19:23: Ammonia < 10.0 L 02/08/23 20:15: Urine Opiates Screen NEGATIVE, Urine Methadone Screen NEGATIVE, Ur Barbiturates Screen NEGATIVE, Ur Phencyclidine Scrn NEGATIVE, Ur Amphetamines Screen NEGATIVE, MDMA (Ecstasy) Screen NEGATIVE, U Benzodiazepines Scrn POSITIVE H, Urine Cocaine Screen NEGATIVE, U Cannabinoids Screen NEGATIVE, Ur Drug Screen Comment 02/09/23 05:27: WBC 5.7, RBC 4.84, Hgb 12.8 L, Hct 40.3, MCV 83.3, MCH 26.4 L, MCHC 31.8 L, RDW Std Deviation 37.2, RDW Coeff of Ferny 12.2, Plt Count 230, MPV 11.2, Immature Gran % (Auto) 0.300, Neut % (Auto) 49.6, Lymph % (Auto) 39.0, [place] % (Auto) 7.9, Eos % (Auto) 2.3, Baso % (Auto) 0.9, Absolute Neuts (auto) 2.8, Absolute Lymphs (auto) 2.23, Nucleated RBC % 0, Sodium 137, Potassium 3.4 L, Chloride 106, Carbon Dioxide 27.0, Anion Gap 4 L, BUN 12, Creatinine 0.84, Estim Creat Clear Calc 102.70, Est GFR (MDRD) Af Amer 131, Est GFR (MDRD) Non-Af 108, BUN/Creatinine Ratio 14.3, Glucose 174 H, Calcium 8.8 Radiography Diagnostic Testing: Radiology Impression Brain CT 02/08/23 12:23 IMPRESSION: Stable prominence of the occipital horns of the lateral ventricles bilaterally. 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 Heart rate 150. Glucose 209 pulse ox 98%. He had 10 mg of Versed IM and on arrival to ED he had pinpoint pupil with no response to painful noxious stimulus. GCS 3. Patient did not had seizure in the last 3 years. 1. 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 I reviewed the MAR and do not see administration of Keppra. [facility] neurologist was consulted and patient is Depakote ER 50 mg nightly. IV Ativan as needed for breakthrough seizure. 02/09: Serum potassium 3.4. Ammonia less than 10. Liver chemistry normal range except total protein 8.5. Tox screen positive of benzodiazepines. EEG ordered. Depakote ER 1500 mg nightly. Lorazepam 2 mg IV/IM for seizure more than 2 minutes or [id number] seizures without return to normal. Seizure precaution. Oxygen and suction as needed. No driving as per state law or operating machinery or any activity that puts additional harm to the patient or others. Is done but not reported. #Type 2 diabetes mellitus on insulin degludec 25 units qam ISS. Accuchecks ACHS. also on metformin. Resume once patient's mentation has improved. Humalog insulin dose increased to 10 mg 3 times daily. 02/09: Glucose is elevated about 250. #History of migraines: on sumatriptan prn #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: on nadolol and verapamil Verapamil also migraine prophylactic medications. DVT prophylaxis: lovenox Charges/Coding Visit Charges Inpatient E&M: 02650 Subs Hosp L2
[2023-02-09] MEDS: Insulin Lispro 100 UNIT/ML INSULN.PEN 6 UNIT SC ×2 (08:54→12:03)
[2023-02-09] MEDS: Insulin Lispro 100 UNIT/ML INSULN.PEN SC ×2 (08:54→12:01)
[2023-02-09] MEDS: RisperiDONE 1 MG Tablet PO (08:55)
[2023-02-09] MEDS: Insulin Glargine-YFGN 100 UNIT/ML Pen 25 UNIT SC (08:55)
[2023-02-09] MEDS: metFORMIN HCl 1,000 MG Tablet 1000 MG PO ×2 (08:56→17:45)
[2023-02-09] MEDS: Naproxen 500 MG Tablet PO ×2 (08:56→17:46)
[2023-02-09] MEDS: Ergocalciferol 1.25 MG (50, 000 UNIT) Capsule PO (08:56)
[2023-02-09] MEDS: DULoxetine Hcl 30 MG Capsule PO (08:56)
[2023-02-09] MEDS: Gabapentin 100 MG Capsule PO ×3 (08:56→17:51)
[2023-02-09] MEDS: Pantoprazole Sodium 20 MG Tablet PO (08:56)
[2023-02-09] MEDS: Lisinopril 10 MG Tablet 30 MG PO (08:56)
[2023-02-09] MEDS: Loratadine 10 MG Tablet PO (08:57)
[2023-02-09] MEDS: Nadolol 20 MG Tablet 40 MG PO (08:57)
[2023-02-09 10:05] VITALS: BP 141/82; PULSE 82; RESP 16; TEMP 37; O2SAT 100
--- NOTE | 2023-02-09 10:40 | PCM.DC ---
Discharge Instructions Diet Discharge Diet: 1800 Calorie Control Diet and 2000 mg Sodium Diet Activity Discharge Activity: Return to Normal Activity Weight Bearing Status: Weight bearing as tolerated Dressing / Incision Call your doctor if you observe: Fever of 101 or Higher, Coldness, Increased Pain, Numbness or Tingling, Change in Color, Inability to urinate, Inability to have a bowel movement, Shortness of breath, Dizziness, Fainting spells, Swelling in the ankles, Chest pain, Prolonged hiccupping, Increased palpitations (irregular heartbeat) and Calf discomfort Follow Up Care When: IN 2 WEEKS Test Results: Test results from this visit will be discussed in further detail at your follow-up appointment, if applicable. Discharge Plan Admission Admit Date/Time: 02/08/23 14:15 Primary Reason for Your Visit: SEIZURE Breakthrough Attending Provider: Tyler Faulkner Primary Care Provider: Ranjit Azar Consulting Providers: Hoa Haskins Instructions Additional Instructions / Restrictions: Patient follows [facility] neurologist Dr. Yvette Owens. Patient encouraged to follow-up with neurologist in 1 week. EEG report pending but is not going to make change in the management. Patient wants to go home. Discharge Orders/Prescriptions Prescriptions: Continued divalproex 500 MG tablet,delayed release (DR/EC) 1,500 mg PO QHS Patient Comments: seizure metformin 1,000 MG tablet 1,000 mg PO BIDCM Patient Comments: diabetic albuterol sulfate 1 PUFF inhaler 2 puff inhalation Q6H PRN PRN (Reason: Sob &/Or Wheezing) Patient Comments: breathing cholecalciferol (vitamin D3) 1,000 UNIT tablet 50,000 unit PO QWEEK Patient Comments: supplement, takes on lisinopril 10 MG tablet 30 mg PO DAILY Patient Comments: blood pressure triamcinolone acetonide 1 APPLIC cream 1 applic topical TID PRN PRN (Reason: YEAST INFECTION) duloxetine 30 MG capsule 30 mg PO DAILY nadolol 20 MG tablet 40 mg PO DAILY insulin degludec 200 UNIT/ML insulin pen 39 unit SQ BREAKFAST nystatin 1 APPLIC ointment 1 applic topical 4X/DAY PRN (Reason: GROIN) doxepin 25 MG capsule 25 - 50 mg PO QHS PRN PRN (Reason: Insomnia) prochlorperazine maleate 10 MG tablet 10 mg PO Q8H PRN PRN (Reason: Migraine Symptoms) risperidone 2 MG tablet 2 mg PO QHS nortriptyline 10 MG capsule 10 mg PO QHS fluoxetine 20 MG capsule 40 mg PO QHS risperidone 1 MG tablet 1 mg PO BREAKFAST diclofenac sodium 100 GM gel 1 applic TP 4X/DAY PRN (Reason: BACK PAIN) mometasone-formoterol 8.8 GM HFA aerosol inhaler 2 puff IH BID verapamil 80 MG tablet 40 mg PO TID gabapentin 100 MG capsule 100 mg PO TID Qty: 42 0RF Patient Comments: NEUROPATHIC PAIN tizanidine 4 MG tablet 4 mg PO BID PRN PRN (Reason: Spasms) acetaminophen 325 MG tablet 325 mg PO Q6H PRN PRN (Reason: Headache) sumatriptan succinate 100 MG tablet 100 mg PO BID PRN (Reason: Migraine Symptoms) meloxicam 15 MG tablet 15 mg PO DAILY omeprazole 20 MG capsule,delayed release(DR/EC) 20 mg PO BID dicyclomine 10 MG capsule 10 mg PO TIDAC Patient Comments: BELLY DISCOMFORT ondansetron 4 MG tablet 4 mg PO Q8H PRN PRN (Reason: Nausea) Qty: 10 0RF orphenadrine citrate 100 mg tablet extended release 100 mg PO BID PRN (Reason: spasm) Qty: 7 0RF ondansetron 4 mg tablet,disintegrating 4 mg PO Q6H PRN (Reason: nausea and vomiting) Qty: 14 0RF Rx Instructions: to take as needed if doxy causes nausea which was listed. Ozempic 0.25 mg or 0.5 mg (2 mg/3 mL) pen injector 0.25 mg subcut QWEEK Rx Instructions: for 4 weeks Emgality Syringe 120 mg/mL syringe 120 mg SUBCUT QMONTH Changed insulin aspart U-100 100 UNITS/ML insulin pen 10 unit subcut TIDCM Qty: 15 2RF Patient Comments: diabetic Rx Instructions: Hold if glucose less than 130 mg/dl cetirizine 10 MG capsule 10 mg PO DAILY PRN (Reason: allergy) 30 Days Qty: 0 0RF Held indomethacin 25 MG capsule 25 mg PO TIDCM Hold Instructions: Check with PCP as patient is on 2 NSAIDS Referrals / Follow Up: Ranjit Azar, [Primary Care Provider] - Disposition Disposition (needs filled in before D/C Order can be placed): Home, Self Care
--- NOTE | 2023-02-09 11:13 | CASEMGMT ---
ALISA LÓPEZ Face to Face with patient for initial transition planning/care coordination assessment. RN RENE introduced self and role at [facility]. Patient sitting up in chair at bedside, alert and oriented. Patient willing to participate in assessment and is able to answer all questions appropriately.? Care providers, pharmacy, and demographics verified. Patient wishes to discharge home, denies need for home health at this time.? Patient states he has no further needs or concerns at this time. CM to follow for discharge planning needs that may arise. PCP:Doe Specialists:Renata (Podiatry), Roman (Neurologist, [facility]), Preferred Pharmacy: [facility] in [place] for this admission (normally uses [facility]) Insurance:[employer] Prescription Benefit:?Yes Living Will/HPOA:No, No (informed patient he can talk with a SW here if he would like to establish these) LNOK:, Taina Asif Living Arrangements:Patient lives in two jenna home with his , Taina, and a best friend. 4 steps w/railing to enter, 18 steps w/railing to second floor, 7 steps w/railing to attic, and 9 steps w/railing to basement. Patient reports he leans on the de león to use the steps, but ambulates them at baseline. FFSU except for bedrooms, which are on the second floor. Patient is independent in all ADLs and IADLs. Transportation: Cab company or a friend ( does not drive) DME:Shower chair, cane, walker, CPAP, Glucometer/supplies (Patient has a continuous glucose monitor in [facility]). Patient states he would like to have grab bars in his shower and has been trying to get these through [facility]. [facility] stated he needs a script, and patient was informed he will need to follow-up with his PCP for this. Patient prefers [facility] if needed for DME. HHC: Denies previous SNF. Reports previously that a nurse from [place] came to do home visits. Disposition Plan: Patient to discharge home with family support and follow-up plans in place. Will follow therapy. Ani ROMERO, RN, CM
[2023-02-09] MEDS: Potassium Chloride Oral Tablet 20 MEQ 40 MEQ PO (12:01)
--- NOTE | 2023-02-09 16:59 | DS.PCM_ITS ---
Providers Date of Admission: 02/08/23 Date of Discharge: 02/09/23 Primary Care Physician: Dr. 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 Heart rate 150. Glucose 209 pulse ox 98%. He had 10 mg of Versed IM and on arrival to ED he had pinpoint pupil with no response to painful noxious stimulus. GCS 3. Patient did not had seizure in the last 3 years. 1. 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 I reviewed the MAR and do not see administration of Keppra. SOC neurologist was consulted and patient is Depakote ER 50 mg nightly. IV Ativan as needed for breakthrough seizure. 02/09: Serum potassium 3.4. Ammonia less than 10. Liver chemistry normal range except total protein 8.5. Tox screen positive of benzodiazepines. EEG ordered. Depakote ER 1500 mg nightly. Lorazepam 2 mg IV/IM for seizure more than 2 minutes or upug-is-nlei seizures without return to normal. Seizure precaution. Oxygen and suction as needed. No driving as per state law or operating machinery or any activity that puts additional harm to the patient or others. EEG is done but not reported as per rule it might take 24 hours for it to come out I do not think is going to change the dose of medication or change in management plan. Patient already seen by neurologist and want the patient on continued Depakote ER 1500 mg nightly and follow-up with the neurologist. Patient follows Dr. Pramod Owens in [facility] and advised to follow in 1 week. #Type 2 diabetes mellitus * on insulin degludec 25 units qam * ISS. Accuchecks ACHS. * also on metformin. Resume once patient's mentation has improved. * Humalog insulin dose increased to 10 mg 3 times daily. 02/09: Glucose is elevated about 250. #History of migraines: on sumatriptan prn #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: on nadolol and verapamil Verapamil also migraine prophylactic medications. 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 He wears braces on lower extremities. Patient on 2 NSAID medication, meloxicam and indomethacin. Advised to discontinue indomethacin. Patient also on o rphenadrine for muscle spasm as needed. Follow with PCP in 1 week for meds reconciliation. DVT prophylaxis: lovenox Discharge medication reconciliation done. Discharge follow-up instructions comp leted. Discharge process discussed with the patient and all questions were answered to patient's satisfaction. Total time spent, exact 35 minutes on discharge meds reconciliation, examination, coordination of care with nurses and ancillary staff, review of imaging and blood test and discussion with the patient on follow-up instructions. Medications at Discharge Home Medications albuterol sulfate 90 mcg/actuation aerosol inhaler 2 puff inhalation Q6H PRN PRN Sob &/Or Wheezing 10/22/14 cholecalciferol (vitamin D3) 25 mcg (1,000 unit) tablet 50,000 unit PO QWEEK replacement 10/22/14 divalproex 500 mg tablet,delayed release 1,500 mg PO QHS SEIZURES 10/22/14 metformin 1,000 mg tablet 1,000 mg PO BIDCM DIABETES 10/22/14 lisinopril 10 mg tablet 30 mg PO DAILY BLOOD PRESSURE 03/06/15 duloxetine 30 mg capsule,delayed release 30 mg PO DAILY DEPRESSION 02/29/16 triamcinolone acetonide 0.025 % topical cream 1 applic topical TID PRN PRN YEAST INFECTION 02/29/16 insulin degludec 200 unit/mL (3 mL) subcutaneous pen 39 unit SQ BREAKFAST DIABETES 09/10/17 nadolol 20 mg tablet 40 mg PO DAILY BLOOD PRESSURE 09/10/17 diclofenac sodium 1 % topical gel 1 applic TP 4X/DAY PRN BACK PAIN 01/11/18 doxepin 25 mg capsule 25 - 50 mg PO QHS PRN PRN Insomnia 01/11/18 fluoxetine 20 mg capsule 40 mg PO QHS DEPRESSION 01/11/18 nortriptyline 10 mg capsule 10 mg PO QHS SLEEP 01/11/18 nystatin 100,000 unit/gram topical ointment 1 applic topical 4X/DAY PRN GROIN 01/11/18 prochlorperazine maleate 10 mg tablet 10 mg PO Q8H PRN PRN Migraine Symptoms 01/11/18 risperidone 1 mg tablet 1 mg PO BREAKFAST SCHIZOPHRENIA 01/11/18 risperidone 2 mg tablet 2 mg PO QHS SHIZOPHRENIA 01/11/18 mometasone-formoterol HFA 200 mcg-5 mcg/actuation aerosol inhaler 2 puff IH BID BREATHING 02/17/18 verapamil 80 mg tablet 40 mg PO TID BLOOD PRESSURE 02/24/18 gabapentin 100 mg capsule 100 mg PO TID #42 caps 11/27/18 tizanidine 4 mg tablet 4 mg PO BID PRN PRN Spasms 04/19/19 acetaminophen 325 mg tablet 325 mg PO Q6H PRN PRN Headache 06/28/19 dicyclomine 10 mg capsule 10 mg PO TIDAC 06/28/19 indomethacin 25 mg capsule 25 mg PO TIDCM 06/28/19 meloxicam 15 mg tablet 15 mg PO DAILY 06/28/19 omeprazole 20 mg capsule,delayed release 20 mg PO BID 06/28/19 sumatriptan succinate 100 mg tablet 100 mg PO BID PRN Migraine Symptoms 06/28/19 ondansetron 4 mg disintegrating tablet 4 mg PO Q8H PRN PRN Nausea #10 tabs 03/09/20 orphenadrine citrate 100 mg tablet,extended release 100 mg PO BID PRN spasm #7 tabs 07/14/21 ondansetron 4 mg disintegrating tablet 4 mg PO Q6H PRN nausea and vomiting #14 tabs 12/18/21 galcanezumab-gnlm 120 mg/mL subcutaneous syringe (Emgality) 120 mg subcut QMONTH migraines 02/08/23 semaglutide 0.25 mg or 0.5 mg (2 mg/3 mL) subcutaneous pen injector (Ozempic) 0.25 mg subcut QWEEK diabetes 02/08/23 cetirizine 10 mg capsule 10 mg PO DAILY PRN allergy 30 days #0 caps 02/09/23 insulin aspart U-100 100 unit/mL (3 mL) subcutaneous pen 10 unit (0.1 mL) subcut TIDCM DIABETES #15 mL 02/09/23 Physical Exam Narrative Please see exam finding that was done earlier today. Weight / BMI Weight Weight: 220 lb Body Mass Index (BMI) 36.6 ABG / Lab / Microbiology Data 02/09/23 05:27 02/09/23 05:27 Laboratory: Laboratory Results - last 24 hr 02/08/23 12:05: Total Bilirubin 0.60, Direct Bilirubin 0.17, AST 32, ALT 27, Alkaline Phosphatase 73, Total Protein 8.5 H, Albumin 3.7, Globulin 4.8 H 02/08/23 18:23: POC Glucose 243 H 02/08/23 19:23: Ammonia < 10.0 L 02/08/23 20:15: Urine Opiates Screen NEGATIVE, Urine Methadone Screen NEGATIVE, Ur Barbiturates Screen NEGATIVE, Ur Phencyclidine Scrn NEGATIVE, Ur Amphetamines Screen NEGATIVE, MDMA (Ecstasy) Screen NEGATIVE, U Benzodiazepines Scrn POSITIVE H, Urine Cocaine Screen NEGATIVE, U Cannabinoids Screen NEGATIVE, Ur Drug Screen Comment 02/09/23 05:27: WBC 5.7, RBC 4.84, Hgb 12.8 L, Hct 40.3, MCV 83.3, MCH 26.4 L, MCHC 31.8 L, RDW Std Deviation 37.2, RDW Coeff of Ferny 12.2, Plt Count 230, MPV 11.2, Immature Gran % (Auto) 0.300, Neut % (Auto) 49.6, Lymph % (Auto) 39.0, [place] % (Auto) 7.9, Eos % (Auto) 2.3, Baso % (Auto) 0.9, Absolute Neuts (auto) 2.8, Absolute Lymphs (auto) 2.23, Nucleated RBC % 0, Sodium 137, Potassium 3.4 L , Chloride 106, Carbon Dioxide 27.0, Anion Gap 4 L, BUN 12, Creatinine 0.84, Estim Creat Clear Calc 102.70, Est GFR (MDRD) Af Amer 131, Est GFR (MDRD) Non-Af 108, BUN/Creatinine Ratio 14.3, Glucose 174 H, Calcium 8.8 D/C Instructions Discharge Diet: 1800 Calorie Control Diet and 2000 mg Sodium Diet Weight Bearing Status: Weight bearing as tolerated Call your doctor if you observe: Fever of 101 or Higher, Coldness, Increased Pa in, Numbness or Tingling, Change in Color, Inability to urinate, Inability to have a bowel movement, Shortness of breath, Dizziness, Fainting spells, Swelling in the ankles, Chest pain, Prolonged hiccupping, Increased palpitations (irregular heartbeat) and Calf discomfort When: IN 2 WEEKS Meaningful Use Info Meaningful Use Diagnoses (Choose all that apply): None applicable Discharge Plan Admission Admit Date/Time: 02/08/23 14:15 Primary Reason for Your Visit: SEIZURE Breakthrough Attending Provider: Tyler Faulkner Primary Care Provider: Ranjit Azar Consulting Providers: Hoa Haskins Instructions Additional Instructions / Restrictions: Patient follows [facility] neurologist Dr. Yvette Owens. Patient encouraged to follow-up with neurologist in 1 week. EEG report pending but is not going to make change in the management. Patient wants to go home. Discharge Orders/Prescriptions Prescriptions: Continued divalproex 500 MG tablet,delayed release (DR/EC) 1,500 mg PO QHS Patient Comments: seizure metformin 1,000 MG tablet 1,000 mg PO BIDCM Patient Comments: diabetic albuterol sulfate 1 PUFF inhaler 2 puff inhalation Q6H PRN PRN (Reason: Sob &/Or Wheezing) Patient Comments: breathing cholecalciferol (vitamin D3) 1,000 UNIT tablet 50,000 unit PO QWEEK Patient Comments: supplement, takes on lisinopril 10 MG tablet 30 mg PO DAILY Patient Comments: blood pressure triamcinolone acetonide 1 APPLIC cream 1 applic topical TID PRN PRN (Reason: YEAST INFECTION) duloxetine 30 MG capsule 30 mg PO DAILY nadolol 20 MG tablet 40 mg PO DAILY insulin degludec 200 UNIT/ML insulin pen 39 unit SQ BREAKFAST nystatin 1 APPLIC ointment 1 applic topical 4X/DAY PRN (Reason: GROIN) doxepin 25 MG capsule 25 - 50 mg PO QHS PRN PRN (Reason: Insomnia) prochlorperazine maleate 10 MG tablet 10 mg PO Q8H PRN PRN (Reason: Migraine Symptoms) risperidone 2 MG tablet 2 mg PO QHS nortriptyline 10 MG capsule 10 mg PO QHS fluoxetine 20 MG capsule 40 mg PO QHS risperidone 1 MG tablet 1 mg PO BREAKFAST diclofenac sodium 100 GM gel 1 applic TP 4X/DAY PRN (Reason: BACK PAIN) mometasone-formoterol 8.8 GM HFA aerosol inhaler 2 puff IH BID verapamil 80 MG tablet 40 mg PO TID gabapentin 100 MG capsule 100 mg PO TID Qty: 42 0RF Patient Comments: NEUROPATHIC PAIN tizanidine 4 MG tablet 4 mg PO BID PRN PRN (Reason: Spasms) acetaminophen 325 MG tablet 325 mg PO Q6H PRN PRN (Reason: Headache) sumatriptan succinate 100 MG tablet 100 mg PO BID PRN (Reason: Migraine Symptoms) meloxicam 15 MG tablet 15 mg PO DAILY omeprazole 20 MG capsule,delayed release(DR/EC) 20 mg PO BID dicyclomine 10 MG capsule 10 mg PO TIDAC Patient Comments: BELLY DISCOMFORT ondansetron 4 MG tablet 4 mg PO Q8H PRN PRN (Reason: Nausea) Qty: 10 0RF orphenadrine citrate 100 mg tablet extended release 100 mg PO BID PRN (Reason: spasm) Qty: 7 0RF ondansetron 4 mg tablet,disintegrating 4 mg PO Q6H PRN (Reason: nausea and vomiting) Qty: 14 0RF Rx Instructions: to take as needed if doxy causes nausea which was listed. Ozempic 0.25 mg or 0.5 mg (2 mg/3 mL) pen injector 0.25 mg subcut QWEEK Rx Instructions: for 4 weeks Emgality Syringe 120 mg/mL syringe 120 mg SUBCUT QMONTH Changed insulin aspart U-100 100 UNITS/ML insulin pen 10 unit subcut TIDCM Qty: 15 2RF Patient Comments: diabetic Rx Instructions: Hold if glucose less than 130 mg/dl cetirizine 10 MG capsule 10 mg PO DAILY PRN (Reason: allergy) 30 Days Qty: 0 0RF Held indomethacin 25 MG capsule 25 mg PO TIDCM Hold Instructions: Check with PCP as patient is on 2 NSAIDS Referrals / Follow Up: Ranjit Azar DO [Primary Care Provider] - Disposition Disposition (needs filled in before D/C Order can be placed): Home, Self Care Charges/Coding Visit Charges Inpatient E&M: 06489 Disch Hosp >30min
[2023-02-09] MEDS: Insulin Lispro 100 UNIT/ML INSULN.PEN 10 UNIT SC (17:46)
[2023-02-09 18:00] VITALS: BP 135/76; PULSE 76; RESP 18; TEMP 36.9; O2SAT 100
== END 2023-02-09 19:10 | disposition home or self-care (01) | DRG 53 ==
LOC: ED 13:52 → PCU 14:51
PROVIDERS: Admitting Provider Student in an Organized Health Care Education/Training Program; Emergency Provider Emergency Medicine; PCP Student in an Organized Health Care Education/Training Program; Visit Provider Internal Medicine
DX: G40.409 Other generalized epilepsy and epileptic syndromes, not intractable, without status epilepticus (principal); F25.9 Schizoaffective disorder, unspecified; E11.65 Type 2 diabetes mellitus with hyperglycemia; Z79.4 Long term (current) use of insulin; I10 Essential (primary) hypertension; K21.9 Gastro-esophageal reflux disease without esophagitis; R00.0 Tachycardia, unspecified; Z79.84 Long term (current) use of oral hypoglycemic drugs; Z79.899 Other long term (current) drug therapy; R79.89 Other specified abnormal findings of blood chemistry
CPT/HCPCS: 36415; 70450; 80048; 80076; 80164; 80307; 82140; 82962; 85025; 94640; 95819; 97162; 97165; 99285; J7030; A4216

== ENCOUNTER 2023-05-31 08:47 | Emergency (ER) | payer SELFPAY ==
[2023-05-31 08:48] VITALS: BP 143/93; PULSE 117; RESP 18; TEMP 36.2; O2SAT 97
--- NOTE | 2023-05-31 09:25 | EX.ED.DYSGE1 ---
HPI History of Present Illness Chief Complaint: Lower Extremity Injury Narrative Narrative: Patient is a 37-year-old male Who is presenting to the ER today with chief complaint of left leg cramping. 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 Patient said that he went to work today, and he is having pain and cramping to his left leg. This apparently was severe enough that patient needed to call the ambulance to come into the ER for evaluation. Patient is diabetic. Patient is uncertain if these have low sodium, potassium and calcium levels in the past. Patient has no fever, chills, chest pain, shortness of breath, or any acute complaints. [facility] Medical History Acute cholecystitis Acute gangrenous cholecystitis Asthma Cholecystitis Depression DM2 (diabetes mellitus, type 2) HTN (hypertension) Schizoaffective disorder Seizure SOB (shortness of breath) Home Medications albuterol sulfate 90 mcg/actuation aerosol inhaler 2 puff inhalation Q6H PRN PRN Sob &/Or Wheezing 10/22/14 [History Last Taken 04/19/19 08:00] cholecalciferol (vitamin D3) 25 mcg (1,000 unit) tablet 50,000 unit PO QWEEK replacement 10/22/14 [History Last Taken 04/19/19] divalproex 500 mg tablet,delayed release 1,500 mg PO QHS SEIZURES 10/22/14 [History Last Taken 04/18/19 22:30] metformin 1,000 mg tablet 1,000 mg PO BIDCM DIABETES 10/22/14 [History Last Taken 04/19/19 08:00] lisinopril 10 mg tablet 30 mg PO DAILY BLOOD PRESSURE 03/06/15 [History Last Taken 04/18/19] duloxetine 30 mg capsule,delayed release 30 mg PO DAILY DEPRESSION 02/29/16 [History Last Taken 04/19/19 08:00] triamcinolone acetonide 0.025 % topical cream 1 applic topical TID PRN PRN YEAST INFECTION 02/29/16 [History Last Taken 02/23/18] insulin degludec 200 unit/mL (3 mL) subcutaneous pen 39 unit SQ BREAKFAST DIABETES 09/10/17 [History Last Taken 04/19/19 08:00] nadolol 20 mg tablet 40 mg PO DAILY BLOOD PRESSURE 09/10/17 [History Last Taken 04/19/19 08:00] diclofenac sodium 1 % topical gel 1 applic TP 4X/DAY PRN BACK PAIN 01/11/18 [History Last Taken 04/08/19] doxepin 25 mg capsule 25 - 50 mg PO QHS PRN PRN Insomnia 01/11/18 [History Last Taken 04/18/19 22:30] fluoxetine 20 mg capsule 40 mg PO QHS DEPRESSION 01/11/18 [History Last Taken 04/19/19 08:00] nortriptyline 10 mg capsule 10 mg PO QHS SLEEP 01/11/18 [History Last Taken 04/18/19] nystatin 100,000 unit/gram topical ointment 1 applic topical 4X/DAY PRN GROIN 01/11/18 [History Last Taken 02/23/18] prochlorperazine maleate 10 mg tablet 10 mg PO Q8H PRN PRN Migraine Symptoms 01/11/18 [History Last Taken 02/23/18] risperidone 1 mg tablet 1 mg PO BREAKFAST SCHIZOPHRENIA 01/11/18 [History Last Taken 04/19/19] risperidone 2 mg tablet 2 mg PO QHS SHIZOPHRENIA 01/11/18 [History Last Taken 02/23/18] mometasone-formoterol HFA 200 mcg-5 mcg/actuation aerosol inhaler 2 puff IH BID BREATHING 02/17/18 [History Last Taken 04/19/19 08:00] verapamil 80 mg tablet 40 mg PO TID BLOOD PRESSURE 02/24/18 [History Last Taken 04/19/19] gabapentin 100 mg capsule 100 mg PO TID #42 caps 11/27/18 [Rx Last Taken 04/19/19 08:00] tizanidine 4 mg tablet 4 mg PO BID PRN PRN Spasms 04/19/19 [History Last Taken Unknown] acetaminophen 325 mg tablet 325 mg PO Q6H PRN PRN Headache 06/28/19 [History Last Taken Unknown] dicyclomine 10 mg capsule 10 mg PO TIDAC 06/28/19 [History Last Taken Unknown] indomethacin 25 mg capsule 25 mg PO TIDCM 06/28/19 [History Last Taken Unknown] meloxicam 15 mg tablet 15 mg PO DAILY 06/28/19 [History Last Taken Unknown] omeprazole 20 mg capsule,delayed release 20 mg PO BID 06/28/19 [History Last Taken Unknown] sumatriptan succinate 100 mg tablet 100 mg PO BID PRN Migraine Symptoms 06/28/19 [History Last Taken Unknown] ondansetron 4 mg disintegrating tablet 4 mg PO Q8H PRN PRN Nausea #10 tabs 03/09/20 [Rx Last Taken Unknown] orphenadrine citrate 100 mg tablet,extended release 100 mg PO BID PRN spasm #7 tabs 07/14/21 [Rx Last Taken Unknown] ondansetron 4 mg disintegrating tablet 4 mg PO Q6H PRN nausea and vomiting #14 tabs 12/18/21 [Rx Last Taken Unknown] galcanezumab-gnlm 120 mg/mL subcutaneous syringe (Emgality) 120 mg subcut QMONTH migraines 02/08/23 [History Last Taken Unknown] semaglutide 0.25 mg or 0.5 mg (2 mg/3 mL) subcutaneous pen injector (Ozempic) 0.25 mg subcut QWEEK diabetes 02/08/23 [History Last Taken Unknown] cetirizine 10 mg capsule 10 mg PO DAILY PRN allergy 30 days #0 caps 02/09/23 [Rx Last Taken Unknown] insulin aspart U-100 100 unit/mL (3 mL) subcutaneous pen 10 unit (0.1 mL) subcut TIDCM DIABETES #15 mL 02/09/23 [Rx Last Taken 04/19/19 08:00] Allergy/AdvReac Type Severity Reaction Status Date / Time hydrocodone bitartrate Allergy Hives Verified 05/31/23 08:47 [From Vicodin] acetaminophen AdvReac Nausea/hive Verified 05/31/23 08:47 s baclofen AdvReac IT MAKES Verified 05/31/23 08:47 HIM LIGHTHEADED AND SICK lactose AdvReac Nausea Verified 05/31/23 08:47 Penicillins AdvReac Nausea Verified 05/31/23 08:47 Surgical History History of laparoscopic cholecystectomy (~04/20/19) Social History household members: spouse and family current occupational status: employed Smoking Status: Never smoker ROS ROS ED ROS Narrative REVIEW OF SYSTEMS: Unless otherwise stated in this report the patient's positive and negative responses for review of systems for constitutional, eyes, ENT, cardiovascular, respiratory, gastrointestinal, neurological, , musculoskeletal, and integument systems and related systems to the presenting problem are either stated in the history of present illness or were not pertinent or were negative for the symptoms and/or complaints related to the presenting medical problem. EXAM Physical Exam Narrative Exam Narrative: Vital signs reviewed and patient is not hypoxic. General: The patient appears well and in no apparent distress. Patient is resting comfortably on cart. Not toxic, lethargic, or listless. Skin: Warm, dry, no pallor noted. There is no rash noted. Head: Normocephalic, atraumatic Eye: Normal conjunctiva, no drainage, EOMI. PERRL. Ears, Nose, Mouth, and Throat: oral mucosa is moist. Cardiovascular: Regular Rate and Rhythm, no murmurs, gallops, or rubs Respiratory: Patient is in no distress, no accessory muscle use, lungs are clear to auscultation, no wheezing, rales or rhonchi Back: No left paralumbar soft tissue tenderness palpation, no tenderness palpation to left piriformis muscle. Otherwise Non-tender, no CVA tenderness bilaterally to percussion. NO CTLS midline or paraspinal tenderness to palpation. Negative straight leg raising test bilateral. GI: Soft, no tenderness to palpation, no masses appreciated. No rebound, guarding, or rigidity noted. Musculoskeletal: The patient has full range of motion of all extremities and joints with no difficulty with moderate pain to flexion and extension of the left knee, minimal. No pain with varus or valgus stress. No signs of compartment syndrome. Patient has no motor, no sensory deficits. Patient has no pain to the posterior aspect of bilateral lower extremities to bilateral posterior thighs, popliteal fossa, and calves. Neurological: A&O x4, normal speech, no focal neurological deficits. Psychiatric: Cooperative Const Vital Signs: 05/31/23 08:48 Temperature 97.2 F L Temperature Source Temporal Pulse Rate 117 H Respiratory Rate 18 Blood Pressure 143/93 H Blood Pressure Mean 109 Pulse Ox 97 Oxygen Delivery Method Room Air MDM MDM MDM Narrative Medical decision making narrative: Patient has slight elevation of his CK, in the 700s. Patient's electrolytes are within normal limits. Patient was given 2 L of IV fluid. Patient blood sugar is elevated, he is diabetic. Patient's venous gas shows alkalosis, and CO2 levels are low as well. Uncertain the patient was hyperventilating prior to arrival. Patient will follow up with PCP. Work restrictions aaron. Nvo questions at discharge. Radiography Diagnostic Testing: Clinical Impression(s) from Imaging Studies Knee X-Ray 05/31/23 10:28 IMPRESSION: No acute abnormality. Mild DJD. Electronically Signed: Antonio Singleton MD at 10:48 EST , Discharge Plan Triage Chief Complaint: Lower Extremity Injury ED Provider: Chavez Cameron Dx/Rx/DC Orders Clinical Impression: Acute leg pain, Acute pain of left knee, Rhabdomyolysis, Dehydration, mild Instructions: Knee Pain, ED Myalgias, ED Rhabdomyolysis, ED RICE Prescriptions: No Action divalproex 500 MG tablet,delayed release (DR/EC) 1,500 mg PO QHS Patient Comments: seizure metformin 1,000 MG tablet 1,000 mg PO BIDCM Patient Comments: diabetic albuterol sulfate 1 PUFF inhaler 2 puff inhalation Q6H PRN PRN (Reason: Sob &/Or Wheezing) Patient Comments: breathing cholecalciferol (vitamin D3) 1,000 UNIT tablet 50,000 unit PO QWEEK Patient Comments: supplement, takes on lisinopril 10 MG tablet 30 mg PO DAILY Patient Comments: blood pressure triamcinolone acetonide 1 APPLIC cream 1 applic topical TID PRN PRN (Reason: YEAST INFECTION) duloxetine 30 MG capsule 30 mg PO DAILY nadolol 20 MG tablet 40 mg PO DAILY insulin degludec 200 UNIT/ML insulin pen 39 unit SQ BREAKFAST nystatin 1 APPLIC ointment 1 applic topical 4X/DAY PRN (Reason: GROIN) doxepin 25 MG capsule 25 - 50 mg PO QHS PRN PRN (Reason: Insomnia) prochlorperazine maleate 10 MG tablet 10 mg PO Q8H PRN PRN (Reason: Migraine Symptoms) risperidone 2 MG tablet 2 mg PO QHS nortriptyline 10 MG capsule 10 mg PO QHS fluoxetine 20 MG capsule 40 mg PO QHS risperidone 1 MG tablet 1 mg PO BREAKFAST diclofenac sodium 100 GM gel 1 applic TP 4X/DAY PRN (Reason: BACK PAIN) mometasone-formoterol 8.8 GM HFA aerosol inhaler 2 puff IH BID verapamil 80 MG tablet 40 mg PO TID gabapentin 100 MG capsule 100 mg PO TID Qty: 42 0RF Patient Comments: NEUROPATHIC PAIN tizanidine 4 MG tablet 4 mg PO BID PRN PRN (Reason: Spasms) acetaminophen 325 MG tablet 325 mg PO Q6H PRN PRN (Reason: Headache) sumatriptan succinate 100 MG tablet 100 mg PO BID PRN (Reason: Migraine Symptoms) meloxicam 15 MG tablet 15 mg PO DAILY indomethacin 25 MG capsule 25 mg PO TIDCM Hold Instructions: Check with PCP as patient is on 2 NSAIDS omeprazole 20 MG capsule,delayed release(DR/EC) 20 mg PO BID dicyclomine 10 MG capsule 10 mg PO TIDAC Patient Comments: BELLY DISCOMFORT ondansetron 4 MG tablet 4 mg PO Q8H PRN PRN (Reason: Nausea) Qty: 10 0RF orphenadrine citrate 100 mg tablet extended release 100 mg PO BID PRN (Reason: spasm) Qty: 7 0RF ondansetron 4 mg tablet,disintegrating 4 mg PO Q6H PRN (Reason: nausea and vomiting) Qty: 14 0RF Rx Instructions: to take as needed if doxy causes nausea which was listed. Ozempic 0.25 mg or 0.5 mg (2 mg/3 mL) pen injector 0.25 mg subcut QWEEK Rx Instructions: for 4 weeks Emgality Syringe 120 mg/mL syringe 120 mg SUBCUT QMONTH insulin aspart U-100 100 UNITS/ML insulin pen 10 unit subcut TIDCM Qty: 15 2RF Patient Comments: diabetic Rx Instructions: Hold if glucose less than 130 mg/dl cetirizine 10 MG capsule 10 mg PO DAILY PRN (Reason: allergy) 30 Days Qty: 0 0RF Stand Alone Forms: ED Work / School Excuse, Work / School Excuse Primary Care Provider: Ranjit Azar Referrals: Ranjit Azar, [Primary Care Provider] - Activity Restrictions/Additional Instructions: Continue to increase fluids at home. Increase water or Gatorade 0 Follow-up with PCP as well. Work restrictions given Disposition Disposition: Home, Self Care Discharge Date/Time: 05/31/23 13:47
[2023-05-31] MEDS: 0.9% Normal Saline (500mL Bag) 500 ML 999 ML IV ×2 (10:27→13:12)
--- NOTE | 2023-05-31 10:28 | RAD_ITS ---
EXAM: XR LEFT KNEE, 3 VIEWS CLINICAL INDICATION: Left knee pain TECHNIQUE: Three views of the left knee. COMPARISON: No relevant prior studies available. FINDINGS: BONES/JOINTS: No acute fracture, subluxation or joint effusion. Mild to moderate osteophytosis noted mild narrowing of the medial knee joint compartment. SOFT TISSUES: Normal. No soft tissue swelling or gas. No radiopaque foreign body. RAD/Knee 3 Views IMPRESSION: No acute abnormality. Mild DJD. Electronically Signed: Antonio Singleton MD at 10:48 EST ,
[2023-05-31 10:33] LABS: Blood Gas Specimen Type VEN; O2 Delivery Device Not entered; SITE Not entered; VBG BASE EXCESS 2 mmol/L (-1.0-3.5); VBG Bicarbonate 25 mmol/L (22-26); VBG PO2 34 mmHg (25-40); VBG SO2 72 % (50-70); VBG TCO2 26 mmol/L (23-33); VBG pCO2 32.3 mmHg (41-51)
[2023-05-31 10:51] LABS: Anion Gap 4 (5-15); BUN 15 mg/dL (7-18); BUN/Creat Ratio 10.4 RATIO (10-20); CPK Total, Creatine Kinase 516 U/L (39-308); Calcium,Total 10.6 mg/dL (8.5-10.1); Chloride 102 mmol/L (98-107); Creatinine, Serum 1.44 mg/dL (0.70-1.30); EST Glomerular Filtration Rate 58 mL/min (>60); Est Glom Filt Rate - Afr Amer 70 mL/min (>60); Glucose 213 mg/dL (74-106); Magnesium 2.5 mg/dL (1.6-2.6); Potassium 3.7 mmol/L (3.5-5.1); Sodium Level 135 mmol/L (136-145)
[2023-05-31 12:00] VITALS: BP 130/94; PULSE 70; RESP 16; O2SAT 97
[2023-05-31 13:47] VITALS: BP 158/99; PULSE 54
== END 2023-05-31 13:47 | disposition home or self-care (01) ==
PROVIDERS: Emergency Provider Emergency Medicine; PCP Student in an Organized Health Care Education/Training Program; Visit Provider Emergency Medicine
DX: M25.562 Pain in left knee (principal); E11.65 Type 2 diabetes mellitus with hyperglycemia; Z79.4 Long term (current) use of insulin; M62.82 Rhabdomyolysis; E86.0 Dehydration; I10 Essential (primary) hypertension; Z79.84 Long term (current) use of oral hypoglycemic drugs; Z79.899 Other long term (current) drug therapy
CPT/HCPCS: 73562; 80048; 82550; 82803; 83735; 96360; 96361; 99282; J7030; J7040; A4216

== ENCOUNTER 2023-10-21 09:22 | Emergency (ER) | payer MEDICAID, SELFPAY ==
[2023-10-21 09:23] VITALS: BP 171/110; PULSE 88; RESP 16; TEMP 36.8; O2SAT 99; BMI 35.0
[2023-10-21 09:50] VITALS: BP 177/65; PULSE 84; RESP 16; TEMP 36.7; O2SAT 99
--- NOTE | 2023-10-21 09:51 | EX.ED.DYSGE1 ---
HPI History of Present Illness Chief Complaint: Abscess Detail of Chief Complaint: Pain and swelling to the right middle finger Informant: patient Narrative Narrative: Patient with pain and swelling to the right middle finger that started 2 days ago. Patient states that he has applied warm compresses to it and at 1 point attempted to incise what he thought was an abscess and had some drainage from the wound. Now comes in for continued pain and swelling. Patient is left-hand dominant. 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 He is a type II diabetic. Denies fevers or chills or sweats. He has had similar problems in the past that required incision and drainage. [facility] Medical History Acute cholecystitis Acute gangrenous cholecystitis Asthma Cholecystitis Depression DM2 (diabetes mellitus, type 2) HTN (hypertension) Schizoaffective disorder Seizure SOB (shortness of breath) Home Medications ?Medication ?Instructions ?Recorded ?Last Taken ?Type albuterol sulfate 90 mcg/actuation 2 puff inhalation Q6H PRN PRN Sob 10/22/14 04/19/19 08:00 History aerosol inhaler &/Or Wheezing cholecalciferol (vitamin D3) 25 50,000 unit PO QWEEK replacement 10/22/14 04/19/19 History mcg (1,000 unit) tablet divalproex 500 mg tablet,delayed 1,500 mg PO QHS SEIZURES 10/22/14 04/18/19 22:30 History release metformin 1,000 mg tablet 1,000 mg PO BIDCM DIABETES 10/22/14 04/19/19 08:00 History lisinopril 10 mg tablet 30 mg PO DAILY BLOOD PRESSURE 03/06/15 04/18/19 History duloxetine 30 mg capsule,delayed 30 mg PO DAILY DEPRESSION 02/29/16 04/19/19 08:00 History release triamcinolone acetonide 0.025 % 1 applic topical TID PRN PRN YEAST 02/29/16 02/23/18 History topical cream INFECTION insulin degludec 200 unit/mL (3 39 unit SQ BREAKFAST DIABETES 09/10/17 04/19/19 08:00 History mL) subcutaneous pen nadolol 20 mg tablet 40 mg PO DAILY BLOOD PRESSURE 09/10/17 04/19/19 08:00 History diclofenac sodium 1 % topical gel 1 applic TP 4X/DAY PRN BACK PAIN 01/11/18 04/08/19 History doxepin 25 mg capsule 25 - 50 mg PO QHS PRN PRN Insomnia 01/11/18 04/18/19 22:30 History fluoxetine 20 mg capsule 40 mg PO QHS DEPRESSION 01/11/18 04/19/19 08:00 History nortriptyline 10 mg capsule 10 mg PO QHS SLEEP 01/11/18 04/18/19 History nystatin 100,000 unit/gram topical 1 applic topical 4X/DAY PRN GROIN 01/11/18 02/23/18 History ointment prochlorperazine maleate 10 mg 10 mg PO Q8H PRN PRN Migraine 01/11/18 02/23/18 History tablet Symptoms risperidone 1 mg tablet 1 mg PO BREAKFAST SCHIZOPHRENIA 01/11/18 04/19/19 History risperidone 2 mg tablet 2 mg PO QHS SHIZOPHRENIA 01/11/18 02/23/18 History mometasone-formoterol HFA 200 2 puff IH BID BREATHING 02/17/18 04/19/19 08:00 History mcg-5 mcg/actuation aerosol inhaler verapamil 80 mg tablet 40 mg PO TID BLOOD PRESSURE 02/24/18 04/19/19 History gabapentin 100 mg capsule 100 mg PO TID #42 caps 11/27/18 04/19/19 08:00 Rx tizanidine 4 mg tablet 4 mg PO BID PRN PRN Spasms 04/19/19 Unknown History acetaminophen 325 mg tablet 325 mg PO Q6H PRN PRN Headache 06/28/19 Unknown History dicyclomine 10 mg capsule 10 mg PO TIDAC 06/28/19 Unknown History indomethacin 25 mg capsule 25 mg PO TIDCM 06/28/19 Unknown History meloxicam 15 mg tablet 15 mg PO DAILY 06/28/19 Unknown History omeprazole 20 mg capsule,delayed 20 mg PO BID 06/28/19 Unknown History release sumatriptan succinate 100 mg tablet 100 mg PO BID PRN Migraine Symptoms 06/28/19 Unknown History ondansetron 4 mg disintegrating 4 mg PO Q8H PRN PRN Nausea #10 tabs 03/09/20 Unknown Rx tablet orphenadrine citrate 100 mg 100 mg PO BID PRN spasm #7 tabs 07/14/21 Unknown Rx tablet,extended release ondansetron 4 mg disintegrating 4 mg PO Q6H PRN nausea and 12/18/21 Unknown Rx tablet vomiting #14 tabs galcanezumab-gnlm 120 mg/mL 120 mg subcut QMONTH migraines 02/08/23 Unknown History subcutaneous syringe (Emgality) semaglutide 0.25 mg or 0.5 mg (2 0.25 mg subcut QWEEK diabetes 02/08/23 Unknown History mg/3 mL) subcutaneous pen injector (Ozempic) cetirizine 10 mg capsule 10 mg PO DAILY PRN allergy 30 days 02/09/23 Unknown Rx #0 caps insulin aspart U-100 100 unit/mL 10 unit (0.1 mL) subcut TIDCM 02/09/23 04/19/19 08:00 Rx (3 mL) subcutaneous pen DIABETES #15 mL cephalexin 500 mg capsule 500 mg PO Q6 #40 CAPSULES 10/21/23 Unknown Rx Allergy/AdvReac Type Severity Reaction Status Date / Time hydrocodone bitartrate (From Allergy Hives Verified 10/21/23 09:27 Vicodin) acetaminophen AdvReac Nausea/hive Verified 10/21/23 09:27 s baclofen AdvReac IT MAKES Verified 10/21/23 09:27 HIM LIGHTHEADED AND SICK lactose AdvReac Nausea Verified 10/21/23 09:27 Penicillins AdvReac Nausea Verified 10/21/23 09:27 Surgical History History of laparoscopic cholecystectomy (~04/20/19) Social History household members: spouse and family current occupational status: employed Smoking Status: Former smoker ROS ROS ED Review of Systems ROS Unobtainable: other Constitutional Constitutional ED: Reports lethargy; Denies chills, fever(s), sweats or weight loss Eyes Eyes: Denies blurry vision, change in vision or diplopia ENT ENT ED: Denies rhinorrhea or sore throat Cardiovascular Cardiovascular: Reports chest pain and racing heartbeat; Denies orthopnea Respiratory/Chest Respiratory/Chest: Reports dyspnea and dyspnea on exertion; Denies cough, orthopnea or sputum Gastrointestinal Gastrointestinal: Denies abdominal pain, diarrhea, nausea or vomiting Genitourinary Genitourinary ED: Denies dysuria, hematuria or urinary frequency Musculoskeletal Musculoskeletal: Reports other Details: Pain and swelling to right middle finger ; Denies arthralgias, back pain, myalgias or neck pain Integumentary Denies abscess, Abrasions or rash Neurologic Neurologic: Denies headache(s) or weakness Psychiatric Psychiatric: Denies anxiety, depression or suicidal thoughts Endocrine Endocrinology: Denies polydipsia, polyphagia or polyuria Hematologic/Lymphatic Hematologic/Lymphatic: Denies easy bleeding, easy bruising or lymphadenopathy Allergic/Immunologic Allergic/Immunologic ED: Denies mouth swelling, tongue swelling or urticaria EXAM Physical Exam Const Vital Signs: 10/21/23 09:23 Temperature 98.3 F Temperature Source Oral Pulse Rate 88 Respiratory Rate 16 Blood Pressure 171/110 H Blood Pressure Mean 130 Pulse Ox 99 Oxygen Delivery Method Room Air Positive well nourished and well developed General Appearance ED: well developed and NAD HEENT Reports TM's clear and moist mucous membranes normocephalic and atraumatic; Negative for trauma or tenderness Tympanic Membrane ED: Yes TM's clear Eyes PERRL and EOMs intact bilaterally General Eye ED: Negative for pale conjunctiva or scleral icterus Neck no lymphadenopathy, supple and no JVD General: Negative for tenderness Chest Wall inspection of chest normal and palpation of chest normal Chest: Negative for tenderness Resp normal respiratory effort and clear to auscultation bilaterally Effort and Inspection: Negative for respiratory distress or pain with movement Auscultation: Negative for rhonchi, wheezes or diminished lung sounds Cardio regular rate, regular rhythm, S1 normal heart sound, S2 normal heart sound and no murmurs Peripheral Pulses: pulses 2+ throughout GI normal to inspection, nondistended, normoactive bowel sounds, soft to palpation, non-tender, non-distended and no masses Back/Spine no CVA tenderness and no thoracic nor lumbar tenderness Extremity Extremity Narrative: Right middle finger-patient has pain and swelling medial to the nail of the distal phalanx with slight fluctuance noted. Exam consistent with paronychia. General Extremety ED: Negative for edema General Extremity: Negative for edema Neuro oriented x3, CN's II-XII intact bilaterally, no sensory deficits noted and gait normal Sensorium / Orientation: awake, alert, oriented to person, oriented to place and oriented to time Motor Exam: strength 5/5 throughout and strength abnormal Psych mental status grossly normal Skin no rashes or lesions noted and no wounds MDM MDM MDM Narrative Medical decision making narrative: Patient presents with paronychia to the right middle finger. Finger tender to palpation. Recommended incision and drainage. Patient in agreement. Skin was cleansed with alcohol swab. Using an 18-gauge needle I made a stab incision into the most fluctuant part of the paronychia. Immediately obtained thick whitish-yellow discharge with small amount of blood. I milked to the area until no more purulent debris was expressed. Clean dressing was applied. Patient was given a dose of Keflex. Advised to use warm soaks. Will start on Keflex. Will refer to primary care physician for follow-up within next 3 to 5 days. Advised to return if increasing pain, redness, swelling, purulent drainage, or condition should worsen anyway. Discharge Plan Triage Chief Complaint: Abscess ED Provider: Meryl Dasilva Dx/Rx/DC Orders Clinical Impression: Paronychia, Encounter for incision and drainage procedure Instructions: ED Paronychia of the Finger or Toe Prescriptions: New cephalexin 500 mg capsule 500 mg PO Q6 Qty: 40 0RF No Action divalproex 500 MG tablet,delayed release (DR/EC) 1,500 mg PO QHS Patient Comments: seizure metformin 1,000 MG tablet 1,000 mg PO BIDCM Patient Comments: diabetic albuterol sulfate 1 PUFF inhaler 2 puff inhalation Q6H PRN PRN (Reason: Sob &/Or Wheezing) Patient Comments: breathing cholecalciferol (vitamin D3) 1,000 UNIT tablet 50,000 unit PO QWEEK Patient Comments: supplement, takes on lisinopril 10 MG tablet 30 mg PO DAILY Patient Comments: blood pressure triamcinolone acetonide 1 APPLIC cream 1 applic topical TID PRN PRN (Reason: YEAST INFECTION) duloxetine 30 MG capsule 30 mg PO DAILY nadolol 20 MG tablet 40 mg PO DAILY insulin degludec 200 UNIT/ML insulin pen 39 unit SQ BREAKFAST nystatin 1 APPLIC ointment 1 applic topical 4X/DAY PRN (Reason: GROIN) doxepin 25 MG capsule 25 - 50 mg PO QHS PRN PRN (Reason: Insomnia) prochlorperazine maleate 10 MG tablet 10 mg PO Q8H PRN PRN (Reason: Migraine Symptoms) risperidone 2 MG tablet 2 mg PO QHS nortriptyline 10 MG capsule 10 mg PO QHS fluoxetine 20 MG capsule 40 mg PO QHS risperidone 1 MG tablet 1 mg PO BREAKFAST diclofenac sodium 100 GM gel 1 applic TP 4X/DAY PRN (Reason: BACK PAIN) mometasone-formoterol 8.8 GM HFA aerosol inhaler 2 puff IH BID verapamil 80 MG tablet 40 mg PO TID gabapentin 100 MG capsule 100 mg PO TID Qty: 42 0RF Patient Comments: NEUROPATHIC PAIN tizanidine 4 MG tablet 4 mg PO BID PRN PRN (Reason: Spasms) acetaminophen 325 MG tablet 325 mg PO Q6H PRN PRN (Reason: Headache) sumatriptan succinate 100 MG tablet 100 mg PO BID PRN (Reason: Migraine Symptoms) meloxicam 15 MG tablet 15 mg PO DAILY indomethacin 25 MG capsule 25 mg PO TIDCM omeprazole 20 MG capsule,delayed release(DR/EC) 20 mg PO BID dicyclomine 10 MG capsule 10 mg PO TIDAC Patient Comments: BELLY DISCOMFORT ondansetron 4 MG tablet 4 mg PO Q8H PRN PRN (Reason: Nausea) Qty: 10 0RF orphenadrine citrate 100 mg tablet extended release 100 mg PO BID PRN (Reason: spasm) Qty: 7 0RF ondansetron 4 mg tablet,disintegrating 4 mg PO Q6H PRN (Reason: nausea and vomiting) Qty: 14 0RF Rx Instructions: to take as needed if doxy causes nausea which was listed. Ozempic 0.25 mg or 0.5 mg (2 mg/3 mL) pen injector 0.25 mg subcut QWEEK Rx Instructions: for 4 weeks Emgality Syringe 120 mg/mL syringe 120 mg SUBCUT QMONTH insulin aspart U-100 100 UNITS/ML insulin pen 10 unit subcut TIDCM Qty: 15 2RF Patient Comments: diabetic Rx Instructions: Hold if glucose less than 130 mg/dl cetirizine 10 MG capsule 10 mg PO DAILY PRN (Reason: allergy) 30 Days Qty: 0 0RF Primary Care Provider: Ranjit Azar Referrals: Tito Asif MD [Med Staff - Training And Development Professional] - 3-5 Days Ranjit Azar DO [Primary Care Provider] - Print Language: Sudanese Disposition Disposition: Home, Self Care
[2023-10-21] MEDS: Cephalexin 250 MG Capsule 500 MG PO (09:56)
== END 2023-10-21 10:14 | disposition home or self-care (01) ==
LOC: ED 10:10
PROVIDERS: Emergency Provider Emergency Medicine; Visit Provider Emergency Medicine
DX: L03.011 Cellulitis of right finger (principal); F25.9 Schizoaffective disorder, unspecified; E11.9 Type 2 diabetes mellitus without complications; Z79.4 Long term (current) use of insulin; I10 Essential (primary) hypertension; J45.909 Unspecified asthma, uncomplicated; F32.A Depression, unspecified; Z79.85 Long-term (current) use of injectable non-insulin antidiabetic drugs; Z79.899 Other long term (current) drug therapy; Z87.891 Personal history of nicotine dependence
CPT/HCPCS: 10060; 99282

== ENCOUNTER 2023-10-22 17:00 | Emergency (ER) | payer MEDICAID, SELFPAY ==
[2023-10-22 17:02] VITALS: BP 185/123; PULSE 91; RESP 18; TEMP 36.4; O2SAT 100; BMI 34.3
[2023-10-22] MEDS: Lidocaine/Epi/Tetracaine 50 ML 1 APPLIC TOPICAL (17:19)
--- NOTE | 2023-10-22 17:20 | EX.ED.UPPERE ---
HPI History of Present Illness Chief Complaint: Upper Extremity Injury Informant: patient Narrative Narrative: 38-year-old diabetic male presenting to the emergency room with reported paronychia of the right middle finger. Patient states he was seen yesterday had an incision made to drain pus but it sealed back over. He is taken 2 or 3 doses of Keflex. Patient has had these paronychia in the past. No reported fevers. [facility] Medical History Acute gangrenous cholecystitis Acute cholecystitis DM2 (diabetes mellitus, type 2) Schizoaffective disorder Cholecystitis Depression Seizure SOB (shortness of breath) Asthma HTN (hypertension) Home Medications ?Medication ?Instructions ?Recorded ?Last Taken ?Type albuterol sulfate 90 mcg/actuation 2 puff inhalation Q6H PRN PRN Sob 10/22/14 04/19/19 08:00 History aerosol inhaler &/Or Wheezing cholecalciferol (vitamin D3) 25 50,000 unit PO QWEEK replacement 10/22/14 04/19/19 History mcg (1,000 unit) tablet divalproex 500 mg tablet,delayed 1,500 mg PO QHS SEIZURES 10/22/14 04/18/19 22:30 History release metformin 1,000 mg tablet 1,000 mg PO BIDCM DIABETES 10/22/14 04/19/19 08:00 History lisinopril 10 mg tablet 30 mg PO DAILY BLOOD PRESSURE 03/06/15 04/18/19 History duloxetine 30 mg capsule,delayed 30 mg PO DAILY DEPRESSION 02/29/16 04/19/19 08:00 History release triamcinolone acetonide 0.025 % 1 applic topical TID PRN PRN YEAST 02/29/16 02/23/18 History topical cream INFECTION insulin degludec 200 unit/mL (3 39 unit SQ BREAKFAST DIABETES 09/10/17 04/19/19 08:00 History mL) subcutaneous pen nadolol 20 mg tablet 40 mg PO DAILY BLOOD PRESSURE 09/10/17 04/19/19 08:00 History diclofenac sodium 1 % topical gel 1 applic TP 4X/DAY PRN BACK PAIN 01/11/18 04/08/19 History doxepin 25 mg capsule 25 - 50 mg PO QHS PRN PRN Insomnia 01/11/18 04/18/19 22:30 History fluoxetine 20 mg capsule 40 mg PO QHS DEPRESSION 01/11/18 04/19/19 08:00 History nortriptyline 10 mg capsule 10 mg PO QHS SLEEP 01/11/18 04/18/19 History nystatin 100,000 unit/gram topical 1 applic topical 4X/DAY PRN GROIN 01/11/18 02/23/18 History ointment prochlorperazine maleate 10 mg 10 mg PO Q8H PRN PRN Migraine 01/11/18 02/23/18 History tablet Symptoms risperidone 1 mg tablet 1 mg PO BREAKFAST SCHIZOPHRENIA 01/11/18 04/19/19 History risperidone 2 mg tablet 2 mg PO QHS SHIZOPHRENIA 01/11/18 02/23/18 History mometasone-formoterol HFA 200 2 puff IH BID BREATHING 02/17/18 04/19/19 08:00 History mcg-5 mcg/actuation aerosol inhaler verapamil 80 mg tablet 40 mg PO TID BLOOD PRESSURE 02/24/18 04/19/19 History gabapentin 100 mg capsule 100 mg PO TID #42 caps 11/27/18 04/19/19 08:00 Rx tizanidine 4 mg tablet 4 mg PO BID PRN PRN Spasms 04/19/19 Unknown History acetaminophen 325 mg tablet 325 mg PO Q6H PRN PRN Headache 06/28/19 Unknown History dicyclomine 10 mg capsule 10 mg PO TIDAC 06/28/19 Unknown History indomethacin 25 mg capsule 25 mg PO TIDCM 06/28/19 Unknown History meloxicam 15 mg tablet 15 mg PO DAILY 06/28/19 Unknown History omeprazole 20 mg capsule,delayed 20 mg PO BID 06/28/19 Unknown History release sumatriptan succinate 100 mg tablet 100 mg PO BID PRN Migraine Symptoms 06/28/19 Unknown History ondansetron 4 mg disintegrating 4 mg PO Q8H PRN PRN Nausea #10 tabs 03/09/20 Unknown Rx tablet orphenadrine citrate 100 mg 100 mg PO BID PRN spasm #7 tabs 07/14/21 Unknown Rx tablet,extended release ondansetron 4 mg disintegrating 4 mg PO Q6H PRN nausea and 12/18/21 Unknown Rx tablet vomiting #14 tabs galcanezumab-gnlm 120 mg/mL 120 mg subcut QMONTH migraines 02/08/23 Unknown History subcutaneous syringe (Emgality) semaglutide 0.25 mg or 0.5 mg (2 0.25 mg subcut QWEEK diabetes 02/08/23 Unknown History mg/3 mL) subcutaneous pen injector (Ozempic) cetirizine 10 mg capsule 10 mg PO DAILY PRN allergy 30 days 02/09/23 Unknown Rx #0 caps insulin aspart U-100 100 unit/mL 10 unit (0.1 mL) subcut TIDCM 02/09/23 04/19/19 08:00 Rx (3 mL) subcutaneous pen DIABETES #15 mL cephalexin 500 mg capsule 500 mg PO Q6 #40 CAPSULES 10/21/23 Unknown Rx Allergy/AdvReac Type Severity Reaction Status Date / Time hydrocodone bitartrate (From Allergy Hives Verified 10/22/23 17:01 Vicodin) acetaminophen AdvReac Nausea/hive Verified 10/22/23 17:01 s baclofen AdvReac IT MAKES Verified 10/22/23 17:01 HIM LIGHTHEADED AND SICK lactose AdvReac Nausea Verified 10/22/23 17:01 Penicillins AdvReac Nausea Verified 10/22/23 17:01 Surgical History History of laparoscopic cholecystectomy (~04/20/19) Social History household members: spouse and family current occupational status: employed Smoking Status: Former smoker ROS ROS ED Constitutional Constitutional ED: Denies chills, fever(s) or weight loss Eyes Eyes: Denies change in vision or diplopia ENT ENT ED: Denies ear pain, rhinorrhea or sore throat Cardiovascular Cardiovascular: Denies chest pain, orthopnea, palpitations or racing heartbeat Respiratory/Chest Respiratory/Chest: Denies cough, dyspnea or orthopnea Gastrointestinal Gastrointestinal: Denies abdominal pain, diarrhea, nausea or vomiting Genitourinary Genitourinary ED: Denies dysuria, hematuria or urinary frequency Musculoskeletal Musculoskeletal: Denies arthralgias or myalgias Integumentary Reports other Details: Swollen cuticle with bruising of the right middle finger ; Denies abscess or rash Neurologic Neurologic: Denies headache(s) or weakness Psychiatric Psychiatric: Denies anxiety, depression, suicidal ideation or suicidal thoughts Endocrine Endocrinology: Denies polydipsia, polyphagia or polyuria Allergic/Immunologic Allergic/Immunologic ED: Denies mouth swelling, tongue swelling or urticaria EXAM Physical Exam Const Vital Signs: 10/22/23 17:02 Temperature 97.6 F L Temperature Source Temporal Pulse Rate 91 Respiratory Rate 18 Blood Pressure 185/123 H Blood Pressure Mean 143 Pulse Ox 100 Oxygen Delivery Method Room Air Positive well nourished and well developed General Appearance ED: well developed HEENT Reports normocephalic, head/scalp atraumatic and moist mucous membranes Eyes PERRL and EOMs intact bilaterally Neck no lymphadenopathy, supple and no JVD Resp normal respiratory effort and clear to auscultation bilaterally Cardio regular rate, regular rhythm and no murmurs GI normal to inspection, nondistended, normoactive bowel sounds and non-tender Palpation: soft Back/Spine no CVA tenderness and normal ROM Extremity Extremity Narrative: There is swelling around the cuticle of the right middle finger. There appears to be some ecchymosis/purple discoloration of the skin in the midline. The fat pad of the finger is soft. There is no lymphangitic streaking. General Extremety ED: Negative for edema General Extremity: Negative for edema Neuro oriented x3 and CN's II-XII intact bilaterally Sensorium / Orientation: alert Motor Exam: strength 5/5 throughout Psych mental status grossly normal Mood & Affect: Negative for depressed or tearful Skin no rashes or lesions noted and no wounds MDM MDM MDM Narrative Medical decision making narrative: I do not see evidence of felon. This appears to be a paronychia I. I do not see any lymphangitic streaking to suggest potential systemic or more localized spread of cellulitis. Let was applied to the wound. After adequate time the wound was assessed. Patient asked if he could have his finger numbed. I informed him I certainly could do a digital block explained how I would be performing the digital block. After explaining the technique the patient declined stating lets just get it done. Using an 18-gauge beveled needle I was able to lift the cuticle up off the nailbed starting in the midline extending laterally. This allowed drainage of purulence. I then turned the bevel upwards causing a slit in the cuticle itself. I made a second slit approximately 2 mm lateral to the first. I then used a pair of pickups to lift up that cuticle and snip that section away to allow it not to close over tonight. We talked about continued soaks tonight and continued antibiotics. He notes understanding the plan. Discharge Plan Triage Chief Complaint: Upper Extremity Injury ED Provider: Todd Taylor Dx/Rx/DC Orders Prescriptions: No Action divalproex 500 MG tablet,delayed release (DR/EC) 1,500 mg PO QHS Patient Comments: seizure metformin 1,000 MG tablet 1,000 mg PO BIDCM Patient Comments: diabetic albuterol sulfate 1 PUFF inhaler 2 puff inhalation Q6H PRN PRN (Reason: Sob &/Or Wheezing) Patient Comments: breathing cholecalciferol (vitamin D3) 1,000 UNIT tablet 50,000 unit PO QWEEK Patient Comments: supplement, takes on lisinopril 10 MG tablet 30 mg PO DAILY Patient Comments: blood pressure triamcinolone acetonide 1 APPLIC cream 1 applic topical TID PRN PRN (Reason: YEAST INFECTION) duloxetine 30 MG capsule 30 mg PO DAILY nadolol 20 MG tablet 40 mg PO DAILY insulin degludec 200 UNIT/ML insulin pen 39 unit SQ BREAKFAST nystatin 1 APPLIC ointment 1 applic topical 4X/DAY PRN (Reason: GROIN) doxepin 25 MG capsule 25 - 50 mg PO QHS PRN PRN (Reason: Insomnia) prochlorperazine maleate 10 MG tablet 10 mg PO Q8H PRN PRN (Reason: Migraine Symptoms) risperidone 2 MG tablet 2 mg PO QHS nortriptyline 10 MG capsule 10 mg PO QHS fluoxetine 20 MG capsule 40 mg PO QHS risperidone 1 MG tablet 1 mg PO BREAKFAST diclofenac sodium 100 GM gel 1 applic TP 4X/DAY PRN (Reason: BACK PAIN) mometasone-formoterol 8.8 GM HFA aerosol inhaler 2 puff IH BID verapamil 80 MG tablet 40 mg PO TID gabapentin 100 MG capsule 100 mg PO TID Qty: 42 0RF Patient Comments: NEUROPATHIC PAIN tizanidine 4 MG tablet 4 mg PO BID PRN PRN (Reason: Spasms) acetaminophen 325 MG tablet 325 mg PO Q6H PRN PRN (Reason: Headache) sumatriptan succinate 100 MG tablet 100 mg PO BID PRN (Reason: Migraine Symptoms) meloxicam 15 MG tablet 15 mg PO DAILY indomethacin 25 MG capsule 25 mg PO TIDCM omeprazole 20 MG capsule,delayed release(DR/EC) 20 mg PO BID dicyclomine 10 MG capsule 10 mg PO TIDAC Patient Comments: BELLY DISCOMFORT ondansetron 4 MG tablet 4 mg PO Q8H PRN PRN (Reason: Nausea) Qty: 10 0RF orphenadrine citrate 100 mg tablet extended release 100 mg PO BID PRN (Reason: spasm) Qty: 7 0RF ondansetron 4 mg tablet,disintegrating 4 mg PO Q6H PRN (Reason: nausea and vomiting) Qty: 14 0RF Rx Instructions: to take as needed if doxy causes nausea which was listed. Ozempic 0.25 mg or 0.5 mg (2 mg/3 mL) pen injector 0.25 mg subcut QWEEK Rx Instructions: for 4 weeks Emgality Syringe 120 mg/mL syringe 120 mg SUBCUT QMONTH insulin aspart U-100 100 UNITS/ML insulin pen 10 unit subcut TIDCM Qty: 15 2RF Patient Comments: diabetic Rx Instructions: Hold if glucose less than 130 mg/dl cetirizine 10 MG capsule 10 mg PO DAILY PRN (Reason: allergy) 30 Days Qty: 0 0RF cephalexin 500 mg capsule 500 mg PO Q6 Qty: 40 0RF Primary Care Provider: Care Physician,No Primary Referrals: Care Physician,No Primary [Primary Care Provider] - Print Language: Kazakh Disposition Disposition: Home, Self Care Discharge Date/Time: 10/22/23 18:08
== END 2023-10-22 18:08 | disposition home or self-care (01) ==
LOC: ED 17:10
PROVIDERS: Emergency Provider Emergency Medicine; Visit Provider Emergency Medicine
DX: L03.011 Cellulitis of right finger (principal); E11.9 Type 2 diabetes mellitus without complications; Z79.4 Long term (current) use of insulin; I10 Essential (primary) hypertension; J45.909 Unspecified asthma, uncomplicated; Z79.84 Long term (current) use of oral hypoglycemic drugs; Z87.891 Personal history of nicotine dependence
CPT/HCPCS: 10060; 99282

== ENCOUNTER 2024-03-01 09:16 | Emergency (ER) | payer MEDICAID, SELFPAY ==
[2024-03-01 09:17] VITALS: BP 157/109; PULSE 103; RESP 18; O2SAT 98
[2024-03-01 09:18] VITALS: BP 161/103; PULSE 96; RESP 18; TEMP 36.6; O2SAT 100; BMI 33.7
--- NOTE | 2024-03-01 09:52 | EKG12_ITS ---
Test Reason : CP Blood Pressure : / mmHG Vent. Rate : 087 BPM Atrial Rate : 087 BPM P-R Int : 148 ms QRS Dur : 080 ms QT Int : 348 ms P-R-T Axes : 057 044 039 degrees QTc Int : 418 ms Normal sinus rhythm Normal ECG Confirmed by AVTAR JOSEPH, TRINIDAD ([id number]), editor city [place]INE MAYFIELD ([id number]) on 03/05/2024 2:15:25 PM Referred By: BB Confirmed By:TRINIDAD NOVA MD
--- NOTE | 2024-03-01 09:54 | EDS_ITS ---
HPI History of Present Illness Chief Complaint: Chest Pain Informant: patient Narrative Narrative: 38-year-old male day #3 of continuous chest discomfort that is worse when he moves his torso and his arms and better when he is remaining still. He states he has the pain in between his shoulder blades as well, it also hurts to move. He has noticed activities makes the pain worse, but not necessarily just walking/exertion. He denies any dyspnea or cough or fevers. 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 He felt like this was muscular, but his boss told him to come and have his chest discomfort evaluated. He states it is more on the left. No leg pain or swelling recently. He uses foot braces because of flat feet. [facility] Medical History Acute gangrenous cholecystitis Acute cholecystitis DM2 (diabetes mellitus, type 2) Schizoaffective disorder Cholecystitis Depression Seizure SOB (shortness of breath) Asthma HTN (hypertension) Home Medications ?Medication ?Instructions ?Recorded ?Last Taken ?Type albuterol sulfate 90 mcg/actuation 2 puff inhalation Q6H PRN PRN Sob 10/22/14 04/19/19 08:00 History aerosol inhaler &/Or Wheezing cholecalciferol (vitamin D3) 25 50,000 unit PO QWEEK replacement 10/22/14 04/19/19 History mcg (1,000 unit) tablet divalproex 500 mg tablet,delayed 1,500 mg PO QHS SEIZURES 10/22/14 04/18/19 22: 30 History release metformin 1,000 mg tablet 1,000 mg PO BIDCM DIABETES 10/22/14 04/19/19 08:00 History lisinopril 10 mg tablet 30 mg PO DAILY BLOOD PRESSURE 03/06/15 04/18/19 History duloxetine 30 mg capsule,delayed 30 mg PO DAILY DEPRESSION 02/29/16 04/19/19 08:00 History release triamcinolone acetonide 0.025 % 1 applic topical TID PRN PRN YEAST 02/29/16 02/23/18 History topical cream INFECTION insulin degludec 200 unit/mL (3 39 unit SQ BREAKFAST DIABETES 09/10/17 04/19/19 08:00 History mL) subcutaneous pen nadolol 20 mg tablet 40 mg PO DAILY BLOOD PRESSURE 09/10/17 04/19/19 08:00 History diclofenac sodium 1 % topical gel 1 applic TP 4X/DAY PRN BACK PAIN 01/11/18 04/08/19 History doxepin 25 mg capsule 25 - 50 mg PO QHS PRN PRN Insomnia 01/11/18 04/18/19 22:30 History fluoxetine 20 mg capsule 40 mg PO QHS DEPRESSION 01/11/18 04/19/19 08:00 History nortriptyline 10 mg capsule 10 mg PO QHS SLEEP 01/11/18 04/18/19 History nystatin 100,000 unit/gram topical 1 applic topical 4X/DAY PRN GROIN 01/11/18 02/23/18 History ointment prochlorperazine maleate 10 mg 10 mg PO Q8H PRN PRN Migraine 01/11/18 02/23/18 History tablet Symptoms risperidone 1 mg tablet 1 mg PO BREAKFAST SCHIZOPHRENIA 01/11/18 04/19/19 History risperidone 2 mg tablet 2 mg PO QHS SHIZOPHRENIA 01/11/18 02/23/18 History mometasone-formoterol HFA 200 2 puff IH BID BREATHING 02/17/18 04/19/19 08:00 History mcg-5 mcg/actuation aerosol inhaler verapamil 80 mg tablet 40 mg PO TID BLOOD PRESSURE 02/24/18 04/19/19 History gabapentin 100 mg capsule 100 mg PO TID #42 caps 11/27/18 04/19/19 08:00 Rx tizanidine 4 mg tablet 4 mg PO BID PRN PRN Spasms 04/19/19 Unknown History acetaminophen 325 mg tablet 325 mg PO Q6H PRN PRN Headache 06/28/19 Unknown History dicyclomine 10 mg capsule 10 mg PO TIDAC 06/28/19 Unknown History indomethacin 25 mg capsule 25 mg PO TIDCM 06/28/19 Unknown History meloxicam 15 mg tablet 15 mg PO DAILY 06/28/19 Unknown History omeprazole 20 mg capsule,delayed 20 mg PO BID 06/28/19 Unknown History release sumatriptan succinate 100 mg tablet 100 mg PO BID PRN Migraine Symptoms 06/28/19 Unknown History ondansetron 4 mg disintegrating 4 mg PO Q8H PRN PRN Nausea #10 tabs 03/09/20 Unknown Rx tablet orphenadrine citrate 100 mg 100 mg PO BID PRN spasm #7 tabs 07/14/21 Unknown Rx tablet,extended release ondansetron 4 mg disintegrating 4 mg PO Q6H PRN nausea and 12/18/21 Unknown Rx tablet vomiting #14 tabs galcanezumab-gnlm 120 mg/mL 120 mg subcut QMONTH migraines 02/08/23 Unknown History subcutaneous syringe (Emgality) semaglutide 0.25 mg or 0.5 mg (2 0.25 mg subcut QWEEK diabetes 02/08/23 Unknown History mg/3 mL) subcutaneous pen injector (Ozempic) cetirizine 10 mg capsule 10 mg PO DAILY PRN allergy 30 days 02/09/23 Unknown Rx #0 caps insulin aspart U-100 100 unit/mL 10 unit (0.1 mL) subcut TIDCM 02/09/23 04/19/19 08:00 Rx (3 mL) subcutaneous pen DIABETES #15 mL cephalexin 500 mg capsule 500 mg PO Q6 #40 CAPSULES 10/21/23 Unknown Rx Allergy/AdvReac Type Severity Reaction Status Date / Time hydrocodone bitartrate (From Allergy Hives Verified 03/01/24 09:17 Vicodin) acetaminophen AdvReac Nausea/hive Verified 03/01/24 09:17 s baclofen AdvReac IT MAKES Verified 03/01/24 09:17 HIM LIGHTHEADED AND SICK lactose AdvReac Nausea Verified 03/01/24 09:17 Penicillins AdvReac Nausea Verified 03/01/24 09:17 Surgical History History of laparoscopic cholecystectomy (~04/20/19) Social History household members: spouse and family current occupational status: employed Smoking Status: Former smoker ROS ROS ED Constitutional Constitutional ED: Denies chills or fever(s) Eyes Eyes: Denies change in vision or diplopia ENT ENT ED: Denies rhinorrhea or sore throat Cardiovascular Cardiovascular: Reports as per HPI and chest pain; Denies palpitations Respiratory/Chest Respiratory/Chest: Denies cough or dyspnea Gastrointestinal Gastrointestinal: Denies abdominal pain, diarrhea, nausea or vomiting Genitourinary Genitourinary ED: Denies dysuria or hematuria Musculoskeletal Musculoskeletal: Reports back pain; Denies neck pain Integumentary Denies abscess or rash Neurologic Neurologic: Denies headache(s), paresthesias or weakness Psychiatric Psychiatric: Denies anxiety or suicidal thoughts EXAM Physical Exam Const Vital Signs: 03/01/24 09:17 03/01/24 09:18 03/01/24 09:36 Temperature 98 F Temperature Source Temporal Pulse Rate 103 H 96 Respiratory Rate 18 18 Respiratory Effort Normal Blood Pressure 157/109 H 161/103 H Blood Pressure Mean 125 122 Pulse Ox 98 100 Oxygen Delivery Method Room Air Positive well nourished and well developed General Appearance ED: well developed and NAD HEENT Reports moist mucous membranes normocephalic and atraumatic Eyes PERRL and EOMs intact bilaterally Neck full ROM and supple Chest Wall Chest Narrative: Parasternal chest is tender without crepitance or subcutaneous emphysema. Especially in the upper chest where the patient states that reproduces his pain. Resp normal respiratory effort and clear to auscultation bilaterally Cardio regular rate, regular rhythm and no murmurs GI non-tender and non-distended Auscultation: normoactive bowel sounds Palpation: soft Back/Spine no CVA tenderness Back/Spine Narrative: Pain in the area of the rhomboids bilateral paraspinal thoracic, no bony tenderness or signs of rash. No scapular bony tenderness. General Back: other FROM Extremity normal to inspection General Extremety ED: Negative for edema, pulses abnormal or tenderness General Extremity: Negative for edema or pulses abnormal Neuro oriented x3, CN's II-XII intact bilaterally and no sensory deficits noted Sensorium / Orientation: awake and alert Motor Exam: strength 5/5 throughout Skin no rashes or lesions noted and no wounds Heart Score History: Slightly/Non-Suspicious ECG: Normal Age: </= 45 years Risk Factors: 1 or 2 Risk Factors Troponin: </= Normal Limit Score: 1 MDM MDM MDM Narrative Medical decision making narrative: Exam is consistent with his be musculoskeletal in etiology, but given the location of the discomfort and cardiac workup is reasonable. His EKG is normal. His troponin is in the single digits after having this discomfort for over 48 hours constantly, ruling out acute coronary syndrome. His PERC score is 0 ruling out pulmonary embolus, his blood counts look good no anemia, and his renal function is normal, some giving him a small dose of Toradol to help with the discomfort prior to discharge. 2 view chest x-ray on my interpretation is normal radiology was in agreement. I think reasonable to assume this could be musculoskeletal in etiology, supportive care advised and I am okay with him going back to work which is what he is wanting. Lab Data Attestation: I reviewed the patient's lab results. Labs: Laboratory Results - last 24 hr 03/01/24 09:35 WBC 5.7 RBC 5.04 Hgb 13.2 Hct 41.0 MCV 81.3 MCH 26.2 L MCHC 32.2 RDW Std Deviation 37.9 RDW Coeff of Ferny 12.8 Plt Count 288 MPV 11.4 Immature Gran % (Auto) 0.400 Neut % (Auto) 57.7 Lymph % (Auto) 31.6 [place] % (Auto) 7.4 Eos % (Auto) 1.8 Baso % (Auto) 1.1 H Absolute Neuts (auto) 3.3 Absolute Lymphs (auto) 1.80 Nucleated RBC % 0 Sodium 132 L Potassium 3.8 Chloride 99 Carbon Dioxide 28.0 Anion Gap 5 BUN 13 Creatinine 1.11 Estim Creat Clear Calc 95.35 Est GFR (MDRD) Af Amer 94 Est GFR (MDRD) Non-Af 78 BUN/Creatinine Ratio 11.7 Glucose 369 H Calcium 9.8 Troponin I High Sens 7 Radiography Diagnostic Testing: Clinical Impression(s) from Imaging Studies Chest X-Ray 03/01/24 10:25 IMPRESSION: Normal x-ray examination of the chest. Electronically Signed: Florentin Quan MD at 11:09 EDT , Rhythm Strip Rhythm Strip: Sinus Rhythm Rate: 87 Ectopy: None EKG Initial EKG: Attestation: I personally reviewed and interpreted this EKG as follows: Interpretation: Sinus Rhythm and No Acute Injury Pattern Comments: Normal EKG normal intervals Discharge Plan Triage Chief Complaint: Chest Pain ED Provider: Francisco Tan Dx/Rx/DC Orders Clinical Impression: Musculoskeletal chest pain, Acute thoracic myofascial strain Instructions: ED Strain Chest Wall, ED Thoracic Spine Strain Prescriptions: No Action divalproex 500 MG tablet,delayed release (DR/EC) 1,500 mg PO QHS Patient Comments: seizure metformin 1,000 MG tablet 1,000 mg PO BIDCM Patient Comments: diabetic albuterol sulfate 1 PUFF inhaler 2 puff inhalation Q6H PRN PRN (Reason: Sob &/Or Wheezing) Patient Comments: breathing cholecalciferol (vitamin D3) 1,000 UNIT tablet 50,000 unit PO QWEEK Patient Comments: supplement, takes on lisinopril 10 MG tablet 30 mg PO DAILY Patient Comments: blood pressure triamcinolone acetonide 1 APPLIC cream 1 applic topical TID PRN PRN (Reason: YEAST INFECTION) duloxetine 30 MG capsule 30 mg PO DAILY nadolol 20 MG tablet 40 mg PO DAILY insulin degludec 200 UNIT/ML insulin pen 39 unit SQ BREAKFAST nystatin 1 APPLIC ointment 1 applic topical 4X/DAY PRN (Reason: GROIN) doxepin 25 MG capsule 25 - 50 mg PO QHS PRN PRN (Reason: Insomnia) prochlorperazine maleate 10 MG tablet 10 mg PO Q8H PRN PRN (Reason: Migraine Symptoms) risperidone 2 MG tablet 2 mg PO QHS nortriptyline 10 MG capsule 10 mg PO QHS fluoxetine 20 MG capsule 40 mg PO QHS risperidone 1 MG tablet 1 mg PO BREAKFAST diclofenac sodium 100 GM gel 1 applic TP 4X/DAY PRN (Reason: BACK PAIN) mometasone-formoterol 8.8 GM HFA aerosol inhaler 2 puff IH BID verapamil 80 MG tablet 40 mg PO TID gabapentin 100 MG capsule 100 mg PO TID Qty: 42 0RF Patient Comments: NEUROPATHIC PAIN tizanidine 4 MG tablet 4 mg PO BID PRN PRN (Reason: Spasms) acetaminophen 325 MG tablet 325 mg PO Q6H PRN PRN (Reason: Headache) sumatriptan succinate 100 MG tablet 100 mg PO BID PRN (Reason: Migraine Symptoms) meloxicam 15 MG tablet 15 mg PO DAILY indomethacin 25 MG capsule 25 mg PO TIDCM omeprazole 20 MG capsule,delayed release(DR/EC) 20 mg PO BID dicyclomine 10 MG capsule 10 mg PO TIDAC Patient Comments: BELLY [employer] ondansetron 4 MG tablet 4 mg PO Q8H PRN PRN (Reason: Nausea) Qty: 10 0RF orphenadrine citrate 100 mg tablet extended release 100 mg PO BID PRN (Reason: spasm) Qty: 7 0RF ondansetron 4 mg tablet,disintegrating 4 mg PO Q6H PRN (Reason: nausea and vomiting) Qty: 14 0RF Rx Instructions: to take as needed if doxy causes nausea which was listed. Ozempic 0.25 mg or 0.5 mg (2 mg/3 mL) pen injector 0.25 mg subcut QWEEK Rx Instructions: for 4 weeks Emgality Syringe 120 mg/mL syringe 120 mg SUBCUT QMONTH insulin aspart U-100 100 UNITS/ML insulin pen 10 unit subcut TIDCM Qty: 15 2RF Patient Comments: diabetic Rx Instructions: Hold if glucose less than 130 mg/dl cetirizine 10 MG capsule 10 mg PO DAILY PRN (Reason: allergy) 30 Days Qty: 0 0RF cephalexin 500 mg capsule 500 mg PO Q6 Qty: 40 0RF Stand Alone Forms: Work / School Excuse Primary Care Provider: Care Physician,No Primary Referrals: Doctor,Your [Non-Staff] - 1 Week if not improving Print Language: Salvadorean Disposition Disposition: Home, Self Care
--- NOTE | 2024-03-01 10:25 | RAD_ITS ---
STUDY: X-RAY CHEST REASON FOR EXAM: Male, 38 years old. Chest pain TECHNIQUE: PA and lateral views of the chest. COMPARISON: Comparison is made with prior study March 10, 2021. FINDINGS: EKG electrodes are seen. The lungs are clear and expanded. There is no demonstrated pleural abnormality. Normal size heart. Normal mediastinum and alanis. Normal visualized pulmonary arteries. Normal visualized aortic arch and descending thoracic aorta. Normal visualized thoracic spine. Normal visualized ribs, clavicles, and shoulders. There is no demonstrated abnormality of the visualized soft tissue structures of the upper abdomen. RAD/Chest PA and Lateral IMPRESSION: Normal x-ray examination of the chest. Electronically Signed: Florentin Quan MD at 11:09 EDT ,
[2024-03-01 10:27] LABS: Absolute Neutrophil Count 3.3 X10^3/uL (2.0-7.7); Basophil# 0.06 X10^3/uL; Basophil% 1.1 % (0-1); Eosinophils% 1.8 % (0-5); Hemoglobin 13.2 g/dL (13.0-16.5); Lymphocyte % 31.6 % (19-41); Mean Corp Hgb Conc 32.2 g/dL (32-36); Mean Corpuscular Hgb 26.2 pg (27.0-32.0); Mean Corpuscular Volume 81.3 fL (80-94); Mean Platelet Vol. 11.4 fl (6.2-12.0); Monocyte# 0.42 X10^3/uL; Monocyte% 7.4 % (0-10); NRBC Flagged by Analyzer 0 % (0-5); Neutrophil # 3.29 X10^3/uL (2.7-7.7); Neutrophil % 57.7 % (47-70); Platelet Count 288 K/mm3 (150-450); RBC Distribution Width CV 12.8 % (11.6-14.6); RBC Distribution Width SD 37.9 fl (35.1-43.9); Red Blood Count 5.04 M/mm3 (4.6-6.2); White Blood Count 5.7 K/mm3 (4.4-11.0)
[2024-03-01 10:45] LABS: Anion Gap 5 (5-15); BUN 13 mg/dL (7-18); BUN/Creat Ratio 11.7 RATIO (10-20); Calcium,Total 9.8 mg/dL (8.5-10.1); Chloride 99 mmol/L (98-107); Creatinine, Serum 1.11 mg/dL (0.70-1.30); EST Glomerular Filtration Rate 78 mL/min (>60); Est Glom Filt Rate - Afr Amer 94 mL/min (>60); Estimated Creatinine Clearance 95.35 ml/min; Glucose 369 mg/dL (74-106); Potassium 3.8 mmol/L (3.5-5.1); Sodium Level 132 mmol/L (136-145); Troponin-I HS 7 pg/mL (3.0-78.0)
[2024-03-01 11:21] VITALS: BP 149/85; PULSE 63; RESP 12; TEMP 36.2; O2SAT 97
[2024-03-01] MEDS: Ketorolac 15 MG/ML Vial IV (11:30)
== END 2024-03-01 11:34 | disposition home or self-care (01) ==
PROVIDERS: Emergency Provider Emergency Medicine; Visit Provider Emergency Medicine
DX: S29.011A Strain of muscle and tendon of front wall of thorax, initial encounter (principal); E11.9 Type 2 diabetes mellitus without complications; Z79.4 Long term (current) use of insulin; X50.0XXA Overexertion from strenuous movement or load, initial encounter; Y99.0 Civilian activity done for income or pay; I10 Essential (primary) hypertension; Z87.891 Personal history of nicotine dependence; Z79.84 Long term (current) use of oral hypoglycemic drugs; Z79.85 Long-term (current) use of injectable non-insulin antidiabetic drugs; Z79.899 Other long term (current) drug therapy
CPT/HCPCS: 71046; 80048; 84484; 85025; 93005; 96374; 99283; A4216

== ENCOUNTER 2025-01-21 11:43 | Emergency (ER) | payer BC, SELFPAY ==
[2025-01-21 11:46] VITALS: BP 147/103; PULSE 124; RESP 16; TEMP 37; O2SAT 98; BMI 32.0
--- NOTE | 2025-01-21 12:02 | ED.RN ---
pt. states symptoms for 2 days
--- NOTE | 2025-01-21 12:15 | CT_ITS ---
EXAM: NONCONTRAST CT SCAN OF THE HEAD CLINICAL HISTORY: Numbness COMPARISON: February 08, 2023, April 22, 2020 TECHNIQUE: Serial axial series through the head were obtained without contrast. 2-D coronal and sagittal reformats were then obtained. FINDINGS: Brain: There is a patent cavum, unchanged. There is dilation of the occipital horns of the right and left lateral ventricle, measuring 2.1 cm on the right, and 2.9 cm in the left, unchanged. There is no acute large territorial infarct, intracranial hemorrhage, midline shift or mass effect. The sella and pineal gland regions appear unremarkable. There is no evidence of cerebellar tonsillar herniation. Ventricles: Basilar cisterns are patent. Paranasal sinuses: Well-aerated Mastoid air cells: Well-aerated. Calvarium: The bony calvarium is intact. Orbits: The bilateral globes are symmetric, without retrobulbar compressive mass lesion or hemorrhage. CT/Brain/Head without Contrast IMPRESSION: There is a patent cavum, unchanged. There is dilation of the occipital horns of the right and left lateral ventricl e, measuring 2.1 cm on the right, and 2.9 cm in the left, unchanged. No acute intracranial pathology. Reading Location: [facility]
--- NOTE | 2025-01-21 12:16 | EDS_ITS ---
HPI History of Present Illness Chief Complaint: Numb/Ting Narrative Narrative: 39-year-old male with past medical history of type 2 diabetes but not on medication, presents with numbness and tingling of his hands bilaterally as well as his feet bilaterally that has had for 2 to 3 days. He denies any headache, no exacerbating or alleviating factors. He states he does see a neurologist because of his type 2 diabetes, but has been without medication for at least a year. He states that his paresthesias and numbness of his hands and feet have been constant over the last few days, but worsened today when he was at work. No recent nausea or vomiting, no other symptoms. [facility] Medical History Acute gangrenous cholecystitis Acute cholecystitis DM2 (diabetes mellitus, type 2) Schizoaffective disorder Cholecystitis Depression Seizure SOB (shortness of breath) Asthma HTN (hypertension) Allergy/AdvReac Type Severity Reaction Status Date / Time hydrocodone bitartrate (From Allergy Hives Verified 03/01/24 09:17 Vicodin) acetaminophen AdvReac Nausea/hive Verified 03/01/24 09:17 s baclofen AdvReac IT MAKES Verified 03/01/24 09:17 HIM LIGHTHEADED AND SICK lactose AdvReac Nausea Verified 03/01/24 09:17 Penicillins AdvReac Nausea Verified 03/01/24 09:17 Surgical History History of laparoscopic cholecystectomy (~04/20/19) Social History household members: spouse and family current occupational status: employed Smoking Status: Former smoker ROS ROS ED ROS Narrative Review of systems positive for numbness and tingling of bilateral hands and bilateral feet for the last 3 days. No headache or neck pain. No fevers or chills, no nausea or vomiting. No exacerbating or alleviating factors. EXAM Physical Exam Narrative Exam Narrative: Afebrile. Vital signs noted. Nontoxic-appearing. Cardiovascular examination reveals mild tachycardia. Lungs are clear to auscultation bilaterally. Abdomen is soft and nontender with without guarding or rebound. Positive bowel sounds. Neurological examination is nonfocal, nonlateralizing. Moves all extremities. Awake, alert, interactive. Const Vital Signs: 01/21/25 11:46 01/21/25 12:46 01/21/25 13:00 Temperature 98.6 F Temperature Source Oral Pulse Rate 124 H 98 97 Respiratory Rate 16 24 H 24 H Blood Pressure 147/103 H 144/102 H 137/88 H Blood Pressure Mean 117 116 104 Pulse Ox 98 97 98 Oxygen Delivery Method Room Air Room Air MDM MDM MDM Narrative Medical decision making narrative: The differential diagnosis includes but not limited to dehydration versus other electrolyte imbalance versus paresthesias versus hyperventilation. I doubt TIA or stroke and I do not feel stroke team is indicated because his symptoms are bilateral. CT of the brain radiology report was reviewed and there are chronic changes but no acute intracranial pathology. I reviewed his laboratory work and he has a normal white count of 6.1 with hemoglobin 13.7, hematocrit 40.6, platelet count 270. Electrolyte panel shows normal sodium of 134 with potassium 4.5, CO2 of 23.7, BUN 13 and creatinine slightly elevated at 1.42 but when compared to prior labs, he has had elevation in his creatinine previously intermittently. While glucose is elevated at 440, he has a normal anion gap of 11 so I doubt diabetic ketoacidosis. His magnesium level is normal at 2.0. He was told that he may need to be started on medications for his hyperglycemia. After half a liter of IV fluids, his heart rate is currently in the 90s. Repeat examination shows him resting comfortably. He may be having more of a diabetic neuropathy. At this point in time, I do feel he can be discharged to follow-up with his primary care provider and his neurologist. I do not feel he requires admission. Return instructions to the emergency department were reviewed. Disposition is discharged home in stable condition. History & Record Review Discussion w/independent historian: Patient Additional record(s) reviewed:: Prior labs Lab Data Attestation: I reviewed the patient's lab results. Labs: Laboratory Results - last 24 hr 01/21/25 12:25 WBC 6.1 RBC 5.12 Hgb 13.7 Hct 40.6 MCV 79.3 L MCH 26.8 L MCHC 33.7 RDW Std Deviation 33.7 L RDW Coeff of Ferny 11.7 Plt Count 270 MPV 11.1 Immature Gran % (Auto) 0.300 Neut % (Auto) 62.8 Lymph % (Auto) 28.4 [place] % (Auto) 7.4 Eos % (Auto) 0.3 Baso % (Auto) 0.8 Absolute Neuts (auto) 3.8 Absolute Lymphs (auto) 1.72 Nucleated RBC % 0 Sodium 134 Potassium 4.5 Chloride 99 Carbon Dioxide 23.7 Anion Gap 11 BUN 13 Creatinine 1.42 H Estim Creat Clear Calc 71.96 Est GFR (MDRD) Non-Af 64 BUN/Creatinine Ratio 9.2 L Glucose 440 H Calcium 9.8 Magnesium 2.0 Radiography Diagnostic Testing: Clinical Impression(s) from Imaging Studies Brain CT 01/21/25 12:15 IMPRESSION: There is a patent cavum, unchanged. There is dilation of the occipital horns of the right and left lateral ventricle, measuring 2.1 cm on the right, and 2.9 cm in the left, unchanged. No acute intracranial pathology. Reading [facility] Discharge Plan Triage Chief Complaint: Numb/Ting ED Provider: Javid Winter Dx/Rx/DC Orders Clinical Impression: Paresthesias, Numbness and tingling in both hands, Numbness and tingling of both feet Instructions: ED Neuropathy, Peripheral, ED Paresthesia Primary Care Provider: Ranjit Azar Referrals: Care Physician,No Primary [Non-Staff] - Activity Restrictions/Additional Instructions: Follow-up with your primary care provider. You had elevated sugars today and may need to be started on medication again if your glucose/sugars are not controlled with diet and exercise. Return to the emergency department with new or worsening symptoms. Follow-up with your neurologist as well. Print Language: Tajik Disposition Disposition: Home, Self Care
[2025-01-21] MEDS: 0.9% Normal Saline (1000mL) 1,000 ML 1000 ML IV (12:20)
[2025-01-21 12:37] LABS: Hematocrit 40.6 % (40-54); Hemoglobin 13.7 g/dL (13.0-16.5); Immature Granulocytes Count 0.020 X10^3/uL (0.0-0.0); Mean Corp Hgb Conc 33.7 g/dL (32-36); Mean Corpuscular Volume 79.3 fL (80-94); Mean Platelet Vol. 11.1 fl (6.2-12.0); NRBC Flagged by Analyzer 0 % (0-5); Platelet Count 270 K/mm3 (150-450); RBC Distribution Width CV 11.7 % (11.6-14.6); RBC Distribution Width SD 33.7 fl (35.1-43.9); Red Blood Count 5.12 M/mm3 (4.6-6.2); White Blood Count 6.1 K/mm3 (4.4-11.0)
[2025-01-21 12:46] VITALS: BP 144/102; PULSE 98; RESP 24; O2SAT 97
[2025-01-21 13:00] VITALS: BP 137/88; PULSE 97; RESP 24; O2SAT 98
[2025-01-21 13:04] LABS: Anion Gap 11 (5-15); BUN 13 mg/dL (4-19); BUN/Creat Ratio 9.2 RATIO (10-20); Calcium,Total 9.8 mg/dL (7.6-11.0); Carbon Dioxide 23.7 mmol/L (21.0-32.0); Chloride 99 mmol/L (98-108); Estimated Creatinine Clearance 71.96 ml/min (50-250); Glucose 440 mg/dL (70-99); Magnesium 2.0 mg/dL (1.5-2.2); Potassium 4.5 mmol/L (3.3-5.1)
[2025-01-21 13:45] VITALS: BP 130/78; PULSE 96; RESP 14; TEMP 36.8; O2SAT 100
== END 2025-01-21 13:46 | disposition home or self-care (01) ==
PROVIDERS: Emergency Provider Emergency Medicine; PCP Student in an Organized Health Care Education/Training Program; Visit Provider Emergency Medicine
DX: R20.2 Paresthesia of skin (principal); E11.65 Type 2 diabetes mellitus with hyperglycemia; R20.0 Anesthesia of skin; J45.909 Unspecified asthma, uncomplicated; I10 Essential (primary) hypertension; Z87.891 Personal history of nicotine dependence
CPT/HCPCS: 70450; 80048; 83735; 85025; 96360; 99284; A4216

== ENCOUNTER 2025-03-04 11:15 | Observation (INO) | payer OTHER, SELFPAY ==
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
[2025-03-04 11:16] VITALS: BP 152/104; PULSE 107; RESP 18; TEMP 36.6; O2SAT 100; BMI 32.3
--- NOTE | 2025-03-04 11:59 | RAD_ITS ---
PROCEDURE: CHEST PA AND LATERAL 03/04/2025 REASON FOR EXAM: CHEST PAIN TECHNIQUE: Procedure Code: RADCXR Modality: DX Procedure: CHEST PA AND LATERAL COMPARISON: March 01, 2024 FINDINGS: Hardware: None Heart: Normal Mediastinum: Normal Lungs: Clear Bones: The bones are unremarkable. RAD/Chest PA and Lateral IMPRESSION: No acute cardiopulmonary process Reading Location: [id number]
--- NOTE | 2025-03-04 11:59 | EKG12_ITS ---
Test Reason : CP FOR 3 DAYS Blood Pressure : */* mmHG Vent. Rate : 98 BPM Atrial Rate : 98 BPM P-R Int : 148 ms QRS Dur : 82 ms QT Int : 334 ms P-R-T Axes : 66 57 45 degrees QTcB Int : 426 ms Normal sinus rhythm Nonspecific ST and T wave abnormality Abnormal ECG Confirmed by AVTAR JOSEPH, TRINIDAD ([id number]), metropolitan editor JOÃO WALTON ([id number]) on 03/05/2025 9:10:14 AM Referred By: JEAN/EPIFANIO Confirmed By: TRINIDAD NOVA MD
--- NOTE | 2025-03-04 12:02 | ED.VIS.CHEST ---
HPI History of Present Illness Chief Complaint: Chest Pain Narrative Narrative: Chief complaint and HPI: 39-year-old male with past medical history of DM2, seizures, asthma, HTN presents for evaluation of midsternal chest pain. Describes the pain as pressure. Worse with exertion. Has not taken any OTC medication for the pain. Denies any injury or lifting anything heavy. Denies any recent travel or lower extremity swelling or pain. Denies tobacco abuse. Denies any fever, chills, shortness of breath, abdominal pain, nausea, vomiting. Review of systems: See HPI Medications: As listed on the chart Allergies: As listed on the chart PFSH: Per chart Vital signs: As listed on the chart. Reviewed. Physical exam: Gen: A&O x3, NAD Head: Normocephalic, atraumatic Eyes: No sclera icterus, conjunctiva clear ENT: Moist mucous membranes Neck: Trachea midline, No JVD CV: RRR, no murmurs, chest pain nonreproducible, no peripheral edema Resp: Lungs CTA BL, no w/r/c GI: Abd soft, non-distended, non-tender, no r/r/g Musc: Full ROM, no deformity, bilateral ankle/feet braces Skin: Warm, dry Neuro: Alert, oriented, grossly intact, sensation intact Psych: Cooperative, appropriate mood and affect [facility] Medical History Acute gangrenous cholecystitis Acute cholecystitis DM2 (diabetes mellitus, type 2) Schizoaffective disorder Cholecystitis Depression Seizure SOB (shortness of breath) Asthma HTN (hypertension) Home Medications ?Medication ?Instructions ?Recorded ?Last Taken ?Type lisinopril 10 mg tablet 10 mg PO DAILY 03/04/25 Unknown History Allergy/AdvReac Type Severity Reaction Status Date / Time hydrocodone bitartrate (From Allergy Hives Verified 03/04/25 11:16 Vicodin) acetaminophen AdvReac Nausea/hive Verified 03/04/25 11:16 s baclofen AdvReac IT MAKES Verified 03/04/25 11:16 HIM LIGHTHEADED AND SICK lactose AdvReac Nausea Verified 03/04/25 11:16 Penicillins AdvReac Nausea Verified 03/04/25 11:16 Surgical History History of laparoscopic cholecystectomy (~04/20/19) Social History household members: spouse and family current occupational status: employed Smoking Status: Former smoker EXAM Physical Exam Const Vital Signs: 03/04/25 11:16 03/04/25 13:16 03/04/25 14:50 Temperature 98 F Temperature Source Temporal Pulse Rate 107 H 78 77 Respiratory Rate 18 16 Blood Pressure 152/104 H 156/114 H 158/108 H Blood Pressure Mean 120 128 124 Pulse Ox 100 100 Oxygen Delivery Method Room Air MDM MDM MDM Narrative Medical decision making narrative: 39-year-old male with past medical history of DM2, seizures, asthma, HTN presents for evaluation of midsternal chest pain. Describes the pain as pressure. Worse with exertion. Has not taken any OTC medication for the pain. Differential diagnosis includes but is not limited to ACS, hypertension urgency, electrolyte abnormality, DVT, myofascial spasm. Aspirin ordered for pain. Cardiac workup ordered. CBC with leukopenia 4.2 and anemia of 12.4. On chart review patient has anemia in the past and this is similar. Platelets unremarkable. Coagulation panel unremarkable. BMP unremarkable. BNP unremarkable. Troponin x 2 unremarkable. On reevaluation patient states his chest pain is intermittent and still present. His heart score is a 4 which places him in a moderate category. Given that his chest pain worsens with exertion will speak with hospitalist about admission for ACS workup. Hospitalist accepted admission. Patient was updated on the results and further understand the plan. EKG: Interpreted by me/EM physician: EKG shows normal sinus rhythm with nonspecific ST changes. Heart rate 98. Diagnostic: Interpreted by me/EM physician: Chest x-ray pneumonia, effusion, cardiomegaly, pneumothorax. Radiology in agreement. Impression: 1. Chest pain, with ACS rule out 2. 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 with history of hypertension 3. Anemia with history of anemia Lab Data Labs: Laboratory Results - last 24 hr 03/04/25 03/04/25 11:38 14:06 WBC 4.2 L RBC 4.50 L Hgb 12.4 L Hct 37.5 L MCV 83.3 MCH 27.6 MCHC 33.1 RDW Std Deviation 36.6 RDW Coeff of Ferny 12.0 Plt Count 254 MPV 11.3 Immature Gran % (Auto) 0.500 Neut % (Auto) 60.9 Lymph % (Auto) 29.7 [place] % (Auto) 7.2 Eos % (Auto) 0.7 Baso % (Auto) 1.0 Absolute Neuts (auto) 2.5 Absolute Lymphs (auto) 1.24 Nucleated RBC % 0 PT 12.7 INR 0.9 APTT 25.8 D-Dimer Quant (PE/DVT) 0.43 Sodium 139 Potassium 4.0 Chloride 103 Carbon Dioxide 24.4 Anion Gap 11 BUN 12 Creatinine 0.97 Estim Creat Clear Calc 105.86 Est GFR (MDRD) Non-Af 101 BUN/Creatinine Ratio 12.6 Glucose 167 H Calcium 9.4 Troponin T High Sens 15 Troponin T Hi Sens 2 Hr 10 NT pro BNP II 62 Radiography Diagnostic Testing: Clinical Impression(s) from Imaging Studies Chest X-Ray 03/04/25 11:59 IMPRESSION: No acute cardiopulmonary process Reading Location: [facility] Discharge Plan Triage Chief Complaint: Chest Pain ED Provider: Timothy Chao Dx/Rx/DC Orders Prescriptions: No Action lisinopril 10 mg tablet 10 mg PO DAILY Primary Care Provider: Ranjit Azar Referrals: Ranjit Azar, [Primary Care Provider, Medical] Print Language: Italian
[2025-03-04 12:12] LABS: Hematocrit 37.5 % (40-54); Hemoglobin 12.4 g/dL (13.0-16.5); Immature Granulocytes Count 0.020 X10^3/uL (0.0-0.0); Mean Corp Hgb Conc 33.1 g/dL (32-36); Mean Corpuscular Volume 83.3 fL (80-94); Mean Platelet Vol. 11.3 fl (6.2-12.0); NRBC Flagged by Analyzer 0 % (0-5); Platelet Count 254 K/mm3 (150-450); RBC Distribution Width CV 12.0 % (11.6-14.6); RBC Distribution Width SD 36.6 fl (35.1-43.9); Red Blood Count 4.50 M/mm3 (4.6-6.2); White Blood Count 4.2 K/mm3 (4.4-11.0)
[2025-03-04 12:22] LABS: Prothrombin Time (Protime)PT. 12.7 SECONDS (11.7-14.9)
[2025-03-04 12:23] LABS: Partial Thromboplast Time 25.8 Seconds (24.1-36.2)
[2025-03-04 12:30] LABS: Anion Gap 11 (5-15); BUN 12 mg/dL (4-19); BUN/Creat Ratio 12.6 RATIO (10-20); Calcium,Total 9.4 mg/dL (7.6-11.0); Carbon Dioxide 24.4 mmol/L (21.0-32.0); Chloride 103 mmol/L (98-108); Estimated Creatinine Clearance 105.86 ml/min (50-250); Glucose 167 mg/dL (70-99); Potassium 4.0 mmol/L (3.3-5.1); Pro- Brain NATRIURETIC PEPTIDE 62 pg/mL (<=450); Troponin T High Sensitivity 15 ng/L (<=22)
[2025-03-04 12:34] LABS: D-Dimer Quantitative (DVT/PE) 0.43 FEU/ug/m (0.27-0.49)
[2025-03-04 13:16] VITALS: BP 156/114; PULSE 78
[2025-03-04 14:37] LABS: Troponin T High Sens 2 HR 10 ng/L (<=22)
[2025-03-04 14:50] VITALS: BP 158/108; PULSE 77; RESP 16; O2SAT 100
--- NOTE | 2025-03-04 14:58 | HP.PCM.HOS_ITS ---
HPI - General General Date of Admission: 03/04/25 Date of Service: 03/04/25 Chief Complaint: Chest pain HPI Narrative CHRISTINE HART, is a 39 M who presented to [facility] ED on 03/04/2025 with chest pain. Medical history significant for hypertension, type 2 diabetes mellitus and class I obesity. Patient lives at home with his . 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 He reports ongoing chest pain/heaviness in the center part of his chest for the past 3 days. He has had chest discomfort in that area before but never this severe. Denies any radiation of the pain into his arms or into his neck. Notes that the pain seems to worsen slightly with exertion but does not improve significantly with rest. Denies any acid reflux symptoms. Denies any recent falls or trauma. Denies any tobacco, alcohol or recreational drug use. Denies any significant family history of cardiac disease that he is aware of. In the ED he was hypertensive to the 150s to 160s systolic but otherwise in normal sinus rhythm and stable on room air at rest. CBC and BMP were benign. Glucose 167. Troponins negative x 2. BNP normal. Chest x-ray nonacute. EKG with normal sinus rhythm and no ST changes noted. Has never had an echo or stress test done. Given his age, heart score 4 and ongoing chest pain, hospitalist was contacted for admission. I saw the patient at bedside in the ED. Patient was sitting back fairly comfortably in bed, in no acute distress. He was conversing normally and was somewhat long- winded with conversation. He was given a dose of aspirin 325 mg in the ED. Notes that his chest pain is slightly improved from earlier today. Denies any shortness of breath. Patient notes that he has currently on only lisinopril and Trulicity at home, though he apparently was previously on several other medications as of about a year ago. However, he lost his insurance coverage and is seeing a new PCP who he notes took him off most of these medications because they were not needed. He denies any other acute concerns currently. [facility] Medical History Acute gangrenous cholecystitis Acute cholecystitis DM2 (diabetes mellitus, type 2) Schizoaffective disorder Cholecystitis Depression Seizure SOB (shortness of breath) Asthma HTN (hypertension) Home Medications ?Medication ?Instructions ?Recorded ?Last Taken ?Type lisinopril 10 mg tablet 10 mg PO DAILY 03/04/25 Unkn own History Allergy/AdvReac Type Severity Reaction Status Date / Time hydrocodone bitartrate (From Allergy Hives Verified 03/04/25 11:16 Vicodin) acetaminophen AdvReac Nausea/hive Verified 03/04/25 11:16 s baclofen AdvReac IT MAKES Verified 03/04/25 11:16 HIM LIGHTHEADED AND SICK lactose AdvReac Nausea Verified 03/04/25 11:16 Penicillins AdvReac Nausea Verified 03/04/25 11:16 Surgical History History of laparoscopic cholecystectomy (~04/20/19) Social History household members: spouse and family current occupational status: employed Smoking Status: Former smoker ROS Constitutional Constitutional: Denies chills, fatigue, fever(s) or weakness Cardiovascular Cardiovascular: Reports chest pain; Denies dyspnea on exertion, edema, lightheadedness or palpitations Respiratory/Chest Respiratory/Chest: Denies cough, shortness of breath at rest or shortness of breath with exertion Gastrointestinal Gastrointestinal: Denies abdominal pain Musculoskeletal Musculoskeletal: Denies arthralgias or myalgias Neurologic Neurologic: Denies dizziness, focal weakness or headache(s) Vital Signs Vital Signs Vital Signs: 03/04/25 11:16 03/04/25 13:16 03/04/25 14:50 Temperature 98 F Temperature Source Temporal Pulse Rate 107 H 78 77 Respiratory Rate 18 16 Blood Pressure 152/104 H 156/114 H 158/108 H Blood Pressure Mean 120 128 124 Pulse Ox 100 100 Oxygen Delivery Method Room Air Weight Weight: 91 kg Body Mass Index (BMI) 32.3 Physical Exam Const alert, oriented x3, no apparent distress and average body habitus Constitutional Narrative: Middle-age male, class I obesity, mildly fatigued appearing, otherwise sitting back fairly comfortably in bed, conversing normally, in no acute distress. General Appearance: cooperative and comfortable HEENT normocephalic, head/scalp atraumatic, hearing grossly normal bilaterally, nasal mucous membranes and turbinates normal and moist oral mucous membranes Eyes PERRL, EOMs intact bilaterally and conjunctivae normal Neck full ROM Chest inspection of chest normal Resp normal respiratory effort, normal air movement, no use of accessory muscles and clear to auscultation bilaterally Cardio regular rate, regular rhythm, no murmurs and peripheral pulses 2+ throughout GI normal to inspection, nondistended, normoactive bowel sounds, soft to palpation, non-tender and non-distended Back/Spine normal ROM Extremity normal to inspection, full ROM and no pedal edema Skin no rashes or lesions noted Psych mental status grossly normal Results Lab / Micro Data 03/04/25 11:38 03/04/25 11:38 Labs: Laboratory Results - last 24 hr 03/04/25 11:38: WBC 4.2 L, RBC 4.50 L, Hgb 12.4 L, Hct 37.5 L, MCV 83.3, MCH 27.6, MCHC 33.1, RDW Std Deviation 36.6, RDW Coeff of Ferny 12.0, Plt Count 254, MPV 11.3, Immature Gran % (Auto) 0.500, Neut % (Auto) 60.9, Lymph % (Auto) 29.7, [place] % (Auto) 7.2, Eos % (Auto) 0.7, Baso % (Auto) 1.0, Absolute Neuts (auto) 2.5, Absolute Lymphs (auto) 1.24, Nucleated RBC % 0, PT 12.7, INR 0.9, APTT 25.8, D-Dimer Quant (PE/DVT) 0.43, Sodium 139, Potassium 4.0, Chloride 103, Carbon Dioxide 24.4, Anion Gap 11, BUN 12, Creatinine 0.97, Estim Creat Clear Calc 105.86, Est GFR (MDRD) Non-Af 101, BUN/Creatinine Ratio 12.6, Glucose 167 H , Calcium 9.4, Troponin T High Sens 15, NT pro BNP II 62 03/04/25 14:06: Troponin T Hi Sens 2 Hr 10 Imaging Radiology Impression Chest X-Ray 03/04/25 11:59 IMPRESSION: No acute cardiopulmonary process Reading Location: [facility] Assessment & Plan Assessment/Plan (1) Chest pain: PLAN: Plan Patient is a 39-year-old male who presented to [facility] ED on 03/04/2025 with chest pain. 1. Chest pain, ACS rule out ? Admit under observation status to PCU. Troponins negative x 2, EKG with normal sinus rhythm and no ST changes, chest x-ray negative and BNP normal. However, given history of hypertension, diabetes and obesity as below and heart score 4, cannot rule out cardiac etiology. Nuclear stress test and echocardiogram ordered. A.m. fasting lipid profile ordered. Monitor cardiac telemetry. 2. 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 ? Patient hypertensive to the 150s to 160s systolic and 100s diastolic in the ED. Noted that he had not taken his home lisinopril 10 mg yet today. Does not check his blood pressures at home. Suspect patient may have poorly controlled hypertension and may need additional antihypertensive therapy for this. For now will continue home lisinopril and add IV hydralazine as needed for SBP greater than 170. 3. Type 2 diabetes mellitus ? Glucose 167 on admit. A1c 8.5%. Last A1c in our system was from 2018; was 6.0% then but was up at 9.5% back in 2014. Patient reports being on only weekly Trulicity at this time. Will treat with sliding scale insulin with meals while inpatient. Could consider initiation of metformin on discharge or defer to PCP for medication changes. 4. Class I obesity ? BMI 32 on admit. Discussed lifestyle modifications. Complicates hospital course and care. DVT prophylaxis: Lovenox CODE STATUS: Full code, verified Expected disposition: Home, 1 to 2 days Total clinical time spent by myself addressing the patient's medical issues, reviewing all the data, and collaborating with patient's care team: 76 minutes. Charges/Coding Visit Charges Inpatient E&M: 32371 Init Hosp L3
--- NOTE | 2025-03-04 15:02 | ECHOD_ITS ---
Reason For Study Reason For Study: Chest Pain Procedure This was a 2D Doppler, Color Flow transthoracic echocardiogram. Myocardial strain analysis was performed in this exam to aid in the assessment of cardiac function. Exam performed in department. Left Ventricle Normal left ventricle. The left ventricular ejection fraction is 60 %. Left ventricular systolic function is normal. Stage 1 diastolic dysfunction. No regional wall motion abnormalities noted. Right Ventricle Normal RV size. Normal systolic function. Atria Normal left atrium. Mitral Valve Normal mitral valve. Tricuspid Valve Normal tricuspid valve. Trivial tricuspid valve insufficiency. Pulmonary artery systolic pressure is 20 mmHg. Pulmonic Valve Normal pulmonic valve. Great Vessels Normal aortic root. The pulmonary artery is normal size. Inferior vena cava collapse with respiration. Pericardium/Pleural No pericardial effusion. MMode/2D Measurements & Calculations LVIDd: 4.6 cm IVSd: 1.4 cm Ao root diam: 3.3 cm LVIDs: 2.8 cm LVPWd: 0.94 cm RVDd: 4.0 cm FS: 38.5 % LAV(MOD-bp): 35.8 ml LVAd ap4: 29.4 cm2 SV(MOD-sp4): 44.8 ml LAV(MOD-bp) Indexed: 17.9 ml/m2 LVLd ap4: 8.2 cm SI(MOD-sp4): 22.3 ml/m2 LAV(MOD-sp2): 29.3 ml EDV(MOD-sp4): 85.6 ml LAV(MOD-sp4): 39.1 ml EDV(sp4-el): 89.3 ml LVAs ap4: 18.4 cm2 LVLs ap4: 7.5 cm ESV(MOD-sp4): 40.8 ml ESV(sp4-el): 38.3 ml EF(MOD-sp4): 52.3 % EF(sp4-el): 57.1 % SV(sp4-el): 51.0 ml LA dimension(2D): 3.8 cm LA A4 area: 15.2 cm2 TAPSE: 1.4 cm Time Measurements MV dec time: 0.25 sec Doppler Measurements & Calculations MV E max jc: 51.2 cm/sec Lat Peak E' Jc: 9.0 cm/sec Med Peak E' Jc: 6.6 cm/sec MV A max jc: 66.8 cm/sec E/E' lat: 5.7 E/E' med: 7.7 MV E/A: 0.77 MV V2 max: 75.7 cm/sec MV P1/2t max jc: 63.1 cm/sec Ao V2 max: 87.8 cm/sec MV max P.3 mmHg MV P1/2t: 84.7 msec Ao max P.1 mmHg MV V2 mean: 40.3 cm/sec MV dec slope: 218.3 cm/sec2 Ao V2 mean: 65.3 cm/sec MV mean P.77 mmHg Ao mean P.9 mmHg MV V2 VTI: 19.3 cm MVA(P1/2t): 2.6 cm2 Ao V2 VTI: 19.1 cm AV (velocity ratio): 1.0 LV V1 max: 84.1 cm/sec PA V2 max: 90.0 cm/sec TR max jc: 196.5 cm/sec LV V1 max P.8 mmHg PA V2 mean: 58.5 cm/sec TR max P.4 mmHg LV V1 mean P.5 mmHg LV V1 mean: 58.1 cm/sec LV V1 VTI: 19.7 cm
[2025-03-04 15:52] VITALS: BP 164/93; PULSE 78; RESP 16; TEMP 36.3; O2SAT 100
[2025-03-04 17:05] VITALS: BP 145/89; PULSE 84; RESP 18; TEMP 36.8; O2SAT 100
[2025-03-04 17:11] VITALS: BMI 32.5
--- NOTE | 2025-03-04 18:25 | EKG12_ITS ---
Test Reason : ADMISSION EKG Blood Pressure : */* mmHG Vent. Rate : 73 BPM Atrial Rate : 73 BPM P-R Int : 154 ms QRS Dur : 92 ms QT Int : 384 ms P-R-T Axes : 54 48 43 degrees QTcB Int : 423 ms Normal sinus rhythm Nonspecific ST and T wave abnormality Abnormal ECG When compared with ECG of 04-Mar-2025 11:23, MANUAL COMPARISON REQUIRED DATA IS UNCONFIRMED Confirmed by AVTAR JOSEPH, TRINIDAD ([id number]), primer expeditor and drier JOÃO WALTON ([id number]) on 03/06/2025 7:19:25 AM Referred By: Confirmed By: TRINIDAD NOVA MD
[2025-03-04 21:30] VITALS: BP 164/106; PULSE 66; RESP 12; TEMP 36.4; O2SAT 100
[2025-03-05 03:15] VITALS: BP 154/93; PULSE 77; RESP 16; TEMP 36.3; O2SAT 99
[2025-03-05 04:25] LABS: Hematocrit 37.2 % (40-54); Hemoglobin 12.0 g/dL (13.0-16.5); Mean Corp Hgb Conc 32.3 g/dL (32-36); Mean Corpuscular Volume 83.8 fL (80-94); Mean Platelet Vol. 10.4 fl (6.2-12.0); Platelet Count 278 K/mm3 (150-450); RBC Distribution Width CV 12.0 % (11.6-14.6); RBC Distribution Width SD 36.4 fl (35.1-43.9); Red Blood Count 4.44 M/mm3 (4.6-6.2); White Blood Count 5.9 K/mm3 (4.4-11.0)
[2025-03-05 04:36] LABS: Anion Gap 10 (5-15); BUN 11 mg/dL (4-19); BUN/Creat Ratio 13.1 RATIO (10-20); Calcium,Total 9.2 mg/dL (7.6-11.0); Carbon Dioxide 23.0 mmol/L (21.0-32.0); Chloride 104 mmol/L (98-108); Cholesterol 149 mg/dL (<=200); Estimated Creatinine Clearance 118.40 ml/min (50-250); Glucose 135 mg/dL (70-99); Low Density Lipoprotein Calc. 68 mg/dL; Potassium 3.8 mmol/L (3.3-5.1); Triglycerides 111 mg/dL; Very Low Density Lipoprotein 22 mg/dL (5-40); cholesterol:hdl ratio screen 2.55
--- NOTE | 2025-03-05 05:55 | EKG12_ITS ---
Test Reason : AM EKG Blood Pressure : */* mmHG Vent. Rate : 81 BPM Atrial Rate : 81 BPM P-R Int : 148 ms QRS Dur : 86 ms QT Int : 372 ms P-R-T Axes : 54 38 38 degrees QTcB Int : 432 ms Normal sinus rhythm Normal ECG When compared with ECG of 04-Mar-2025 23:21, MANUAL COMPARISON REQUIRED DATA IS UNCONFIRMED Confirmed by AVTAR JOSEPH, TRINIDAD ([id number]), research editor JOÃO WALTON ([id number]) on 03/06/2025 7:19:07 AM Referred By: Confirmed By: TRINIDAD NOVA MD
[2025-03-05 06:50] VITALS: O2SAT 94
[2025-03-05 07:48] VITALS: BP 161/101; PULSE 76; RESP 16; TEMP 36.1; O2SAT 100
[2025-03-05] MEDS: 0.9% Saline Lock 10 ML Syringe IV (07:53)
[2025-03-05 11:32] VITALS: BP 164/102; PULSE 84; RESP 16; TEMP 36.3; O2SAT 100
--- NOTE | 2025-03-05 17:13 | PCM.DC ---
Discharge Instructions DC O2, CPAP, BIPAP needs Home O2 Discharge instructions: No Dressing / Incision Discharge Activity: Return to Normal Activity Weight Bearing Status: Weight bearing as tolerated Dressing / Incision Call your doctor if you observe: Fever of 101 or Higher, Shortness of breath, Dizziness and Chest pain Follow Up Care Test Results: Test results from this visit will be discussed in further detail at your follow-up appointment, if applicable. Discharge Plan Admission Admit Date/Time: 03/04/25 14:58 Primary Reason for Your Visit: chest pain Attending Provider: Hoa Haskins Primary Care Provider: Ranjit Azar Consulting Providers: Giovani Membreno Instructions Patient Instructions: ED Chest Pain, Noncardiac Discharge Orders/Prescriptions Prescriptions: New lisinopril 20 mg tablet 20 mg PO DAILY Qty: 30 2RF Discontinued lisinopril 10 mg tablet 10 mg PO DAILY Referrals / Follow Up: Ranjit Azar DO [Primary Care Provider, Medical] - Within 1 Week Disposition Disposition (needs filled in before D/C Order can be placed): Home, Self Care
--- NOTE | 2025-03-05 17:16 | PCM.DC.SUM ---
Providers Date of Admission: 03/04/25 Date of Discharge: 03/05/25 Primary Care Physician: Dr. Ranjit Azar DO Reason For Visit: CHEST PAIN Diagnosis Discharge Diagnosis (1) Chest pain: Status: Inactive Code(s): R07.9 - Chest pain, unspecified Medications at Discharge Home Medications lisinopril 20 mg tablet 20 mg PO DAILY #30 tabs 03/05/25 Hospital Course Operations None Procedures 2-D Echocardiogram and Stress test Summary of Care Provided Minutes Spent on Discharge: 37 Hospital Course: Patient is a 39-year-old male with past medical history as outlined was admitted through the ED on 03/04/2025 with complaint of chest pain. Patient said he had been having ongoing chest pain and heaviness in the center of his chest for the past 3 days. 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 The pain did not improve with rest though it worsened slightly with exertion. He denied any other complaints. He denied any nicotine dependence. He also denied any family history of heart disease. Labs were essentially unremarkable and troponins x 2 were negative. EKG showed no acute ST changes and chest x-ray showed no acute cardiopulmonary pathology. He was admitted to be managed for chest pain to rule out ACS. He had a stress test on 03/05/2025 which was negative. 2D echo also showed EF of 60% with normal left ventricular systolic function and stage I diastolic dysfunction and structurally normal valves. He remained stable and was discharged home on 03/13/2025. Since his blood pressure was still elevated his home dose of lisinopril 10 mg daily was increased to 20 mg daily. He is to follow-up with his PCP within 1 to 2 weeks. Patient seen and examined prior to discharge. He had no complaints and had an uneventful night. Review of systems otherwise negative. Labs and vitals reviewed. Home medication reviewed and reconciled. Physical Exam Const alert, oriented x3 and no apparent distress General Appearance: cooperative and comfortable Orientation / Consciousness: awake Exam Limitations: no limitations HEENT normocephalic, head/scalp atraumatic, hearing grossly normal bilaterally and moist oral mucous membranes Mouth: oral and palatal mucosa normal Eyes EOMs intact bilaterally and conjunctivae normal Neck supple and no JVD Resp normal respiratory effort, no use of accessory muscles and clear to auscultation bilaterally Cardio regular rate, regular rhythm, S1 normal heart sound, S2 normal heart sound and no murmurs GI normal to inspection, nondistended, normoactive bowel sounds, soft to palpation, non-tender and non-distended Extremity normal to inspection and full ROM Skin no rashes or lesions noted Neuro oriented x3, CN's II-XII intact bilaterally, moves all extremities and no focal motor deficits Sensorium / Orientation: awake and alert Motor Exam: strength 5/5 throughout Psych affect normal Weight / BMI Weight Weight: 201 lb 14.4 oz Body Mass Index (BMI) 32.5 ABG / Lab / Microbiology Data 03/05/25 03:45 03/05/25 03:45 Laboratory: Laboratory Results - last 24 hr 03/04/25 17:07: POC Glucose 113 H 03/04/25 21:35: POC Glucose 124 H 03/05/25 03:45: WBC 5.9, RBC 4.44 L, Hgb 12.0 L, Hct 37.2 L, MCV 83.8, MCH 27.0, MCHC 32.3, RDW Std Deviation 36.4, RDW Coeff of Ferny 12.0, Plt Count 278, MPV 10.4, Sodium 138, Potassium 3.8, Chloride 104, Carbon Dioxide 23.0, Anion Gap 10, BUN 11, Creatinine 0.87, Estim Creat Clear Calc 118.40, Est GFR (MDRD) Non-Af 111, BUN/Creatinine Ratio 13.1, Glucose 135 H, Calcium 9.2, Triglycerides 111, Cholesterol 149, LDL Cholesterol, Calc 68, VLDL Cholesterol 22, HDL Cholesterol 58, Cholesterol/HDL Ratio 2.55 03/05/25 06:37: POC Glucose 135 H 03/05/25 11:35: POC Glucose 192 H Radiography Diagnostic Testing: Radiology Impression Echocardiogram 03/04/25 15:02 Interpretation Summary The left ventricular ejection fraction is 60 %. Normal left ventricle. Left ventricular systolic function is normal. Stage 1 diastolic dysfunction. Structurally normal valves. Ordering Physician: Giovani Membreno Performed By: Timothy Leija RCS D/C Instructions Discharge Activity: Return to Normal Activity Weight Bearing Status: Weight bearing as tolerated Call your doctor if you observe: Fever of 101 or Higher, Shortness of breath, Dizziness and Chest pain DC O2, CPAP, BIPAP Needs Home O2 Discharge instructions: No Meaningful Use Info Meaningful Use Meaningful Use Diagnoses (Choose all that apply): None applicable Discharge Plan Admission Admit Date/Time: 03/04/25 14:58 Primary Reason for Your Visit: chest pain Attending Provider: Hoa Haskins Primary Care Provider: Ranjit Azar Consulting Providers: Giovani Membreno Instructions Patient Instructions: ED Chest Pain, Noncardiac Discharge Orders/Prescriptions Prescriptions: New lisinopril 20 mg tablet 20 mg PO DAILY Qty: 30 2RF Discontinued lisinopril 10 mg tablet 10 mg PO DAILY Referrals / Follow Up: Ranjit Azar DO [Primary Care Provider, Medical] - Within 1 Week Disposition Disposition (needs filled in before D/C Order can be placed): Home, Self Care Charges/Coding Visit Charges Inpatient E&M: 66802 Disch Hosp >30min
--- NOTE | 2025-03-05 18:09 | STRESSREP ---
Stress Test Report Pharmacologic myocardial perfusion stress test. 39-year-old man with a history of chest pain. Resting EKG demonstrates normal sinus rhythm with a rate of 80 bpm. Resting blood pressure is 136/98 mmHg. 0.4 mg of regadenoson was infused per usual protocol followed by rapid intravenous saline flush injection. Continuous EKG monitoring was performed. The maximum heart rate was 104 bpm which was 58% of max impacted heart rate the maximum workload was 1 metabolic equivalent. At rest there were no ST or T wave changes noted to suggest ischemia and at peak infusion nonspecific ST changes were noted which did not meet the criteria for ischemia. No clinical angina is noted. The final blood pressure was 146/94 mmHg. Myocardial perfusion protocol. 14.8 mCi of technetium 99m sestamibi was injected at rest. 0.4 mg of regadenoson was infused per usual protocol. At peak infusion 43.9 mCi of technetium 99m sestamibi was injected stress images were obtained stress and rest images were reconstructed and compared in the short axis vertical long and horizontal long axis. Gated images were also obtained. Perfusion SPECT analysis: Review of the stress images demonstrate normal uptake of tracer noted in all areas of the myocardium. The resting images similar demonstrated normal uptake of tracer noted in all areas of the myocardium. No areas of reversibility are noted to suggest ischemia and no previous infarct is noted. Gated SPECT analysis: The gated ejection fraction is 56%. Conclusion: Normal pharmacologic myocardial perfusion stress test. Preserved ejection fraction.
== END 2025-03-05 17:16 | disposition home or self-care (01) ==
LOC: ED 12:01 → PCU 15:07
PROVIDERS: Admitting Provider Hospitalist; Emergency Provider Surgery; PCP Student in an Organized Health Care Education/Training Program; Visit Provider Student in an Organized Health Care Education/Training Program
DX: R07.89 Other chest pain (principal); E11.9 Type 2 diabetes mellitus without complications; Z87.891 Personal history of nicotine dependence; D72.819 Decreased white blood cell count, unspecified; I10 Essential (primary) hypertension; Z68.32 Body mass index [BMI] 32.0-32.9, adult; D64.9 Anemia, unspecified; E66.811 Obesity, class 1; J45.909 Unspecified asthma, uncomplicated; Z79.899 Other long term (current) drug therapy; R94.31 Abnormal electrocardiogram [ECG] [EKG]
CPT/HCPCS: 36415; 71046; 78452; 80048; 80061; 82962; 83036; 83880; 84484; 85025; 85027; 85379; 85610; 85730; 93005; 93017; 93306; 99221; 99285; A9500; A4216; G0378; J2785

== ENCOUNTER 2025-05-09 17:17 | Emergency (ER) | payer OTHER, SELFPAY ==
[2025-05-09 17:18] VITALS: BP 151/87; PULSE 111; RESP 18; TEMP 36; O2SAT 98
--- NOTE | 2025-05-09 17:34 | CT_ITS ---
PROCEDURE: BRAIN/HEAD WITHOUT CONTRAST 05/09/2025 REASON FOR EXAM: ALTERED MENTAL STATUS TECHNIQUE: Procedure Code: CTBR Modality: CT Procedure: BRAIN/HEAD WITHOUT CONTRAST Coronal and Sagittal reconstruction series were provided. One or more dose reduction techniques were used (e.g., Automated exposure control, adjustment of the mA and/or kV according to patient size, use of iterative reconstruction technique. RADIATION DOSE SUMMARY: CTDlvol: 44.99 mGy DLP: 813 mGycm COMPARISON: 01/21/2025 FINDINGS: BRAIN: No acute intraparenchymal hemorrhage. No mass lesion. No CT evidence for acute territorial infarct. No midline shift or extra-axial collection. A cavum septum pellucidum is present. No evidence of cerebellar tonsillar herniation. VENTRICLES: The occipital horns of the right and left lateral ventricles remain enlarged without interval change. ORBITS: The orbits are unremarkable. SINUSES AND MASTOIDS: The paranasal sinuses and mastoid air cells are clear. SOFT TISSUES: No acute abnormality seen. BONES: No acute osseous abnormality seen. CT/Brain/Head without Contrast IMPRESSION: 1. No acute intracranial abnormality. 2. Stable bilateral ventricular enlargement. Reading Location: [id number]
--- NOTE | 2025-05-09 17:35 | EKG12_ITS ---
Test Reason : DYSRHYTHMIA Blood Pressure : */* mmHG Vent. Rate : 100 BPM Atrial Rate : 100 BPM P-R Int : 160 ms QRS Dur : 86 ms QT Int : 348 ms P-R-T Axes : 60 35 19 degrees QTcB Int : 448 ms Normal sinus rhythm Minimal voltage criteria for LVH, may be normal variant ( Sokolow-Ma ) Borderline ECG Confirmed by AVTAR JOSEPH, TRINIDAD ([id number]), editor city COLT LEY ([id number]) on 05/12/2025 6:08:46 AM Referred By: Confirmed By: TRINIDAD NOVA MD
--- NOTE | 2025-05-09 17:37 | EDS_ITS ---
HPI History of Present Illness Chief Complaint: Alt LOC Informant: spouse/S.O. Limited: other (Patient is nonverbal) Onset/Context/Timing Onset: Today Context: Sudden Onset Timing: Continuous Quality: Unresponsive Location: Generalized Worsened by: Nothing Relieved by: Nothing Narrative Narrative: Patient presents with altered mental status that was noticed today. states that she went to work this morning and he was fine. states that when she got home she was unable to wake him up. states patient is diabetic. states his blood sugars have been running normally. states his hemoglobin A1c has been improving. denies any fevers or chills. states patient has not had any pain in his chest or trouble breathing. states patient has been abdominal pain recently. BGT here was 246. [facility] Medical History Mcclellan coma scale score 3-8, at arrival to emergency department Generalized tonic-clonic seizure Acute hyperglycemia Super-super obese Acute gangrenous cholecystitis Acute cholecystitis DM2 (diabetes mellitus, type 2) Schizoaffective disorder Cholecystitis Depression Seizure SOB (shortness of breath) Asthma HTN (hypertension) Home Medications ?Medication ?Instructions ?Recorded ?Last Taken ?Type lisinopril 20 mg tablet 20 mg PO DAILY #30 tabs 10/0 06/2905/08/25 Rx dulaglutide 1.5 mg/0.5 mL 1.5 mg subcut QWEEK 05/09/25 Unknown History subcutaneous pen injector (Trulicity) Allergy/AdvReac Type Severity Reaction Status Date / Time hydrocodone bitartrate (From Allergy Hives Verified 05/09/25 17:19 Vicodin) acetaminophen AdvReac Nausea/hive Verified 05/09/25 17:19 s baclofen AdvReac IT MAKES Verified 05/09/25 17:19 HIM LIGHTHEADED AND SICK lactose AdvReac Nausea Verified 05/09/25 17:19 Penicillins AdvReac Nausea Verified 05/09/25 17:19 Surgical History History of laparoscopic cholecystectomy (~04/20/19) Social History household members: spouse and family current occupational status: employed Smoking Status: Former smoker ROS ROS ED Review of Systems ROS Unobtainable: due to mental condition and due to mental status EXAM Physical Exam Const Vital Signs: 05/09/25 17:18 05/09/25 18:46 05/09/25 20:00 Temperature 96.8 F L Temperature Source Axillary Pulse Rate 111 H 102 H 101 H Respiratory Rate 18 20 H 17 Blood Pressure 151/87 H 172/113 H 180/119 H Blood Pressure Mean 108 132 139 Pulse Ox 98 98 97 Oxygen Delivery Method Room Air Room Air Room Air 05/09/25 21:00 05/09/25 22:00 05/09/25 22:51 Temperature Temperature Source Pulse Rate 107 H 94 88 Respiratory Rate 19 H 18 18 Blood Pressure 161/110 H 155/108 H 161/117 H Blood Pressure Mean 127 123 131 Pulse Ox 95 98 96 Oxygen Delivery Method Room Air Room Air Room Air Positive well nourished and well developed General Appearance ED: well developed and NAD HEENT Reports moist mucous membranes Eyes PERRL Neck supple and no JVD Resp normal respiratory effort and clear to auscultation bilaterally Cardio regular rhythm Rate: tachycardic GI non-distended Palpation: soft Extremity normal to inspection General Extremety ED: Negative for edema or tenderness General Extremity: Negative for edema Neuro Neuro Narrative: Patient does not respond to verbal stimuli. Patient does move his head spontaneously. Patient does not follow commands. MDM MDM MDM Narrative Medical decision making narrative: Differential diagnosis includes intracranial bleeding, stroke, electrolyte abnormality, dehydration, diabetic ketoacidosis, hyperosmolar hyperglycemic nonketotic state, sepsis, pneumonia, and seizure. CT scan of the brain will be obtained to assess for intracranial bleeding and stroke. Chest x-ray will be obtained to assess for pneumonia and bronchitis. CBC will be obtained to assess for leukocytosis and anemia. Basic metabolic profile will be obtained to assess for electrolyte abnormality and renal function. Serum lactate will be obtained to assess for sepsis. PT with INR and PTT will be obtained to assess for coagulopathy. EKG will be obtained to assess for cardiac dysrhythmia and cardiac ischemia. Lab Data Attestation: I reviewed the patient's lab results. Lab results narrative: CBC was reviewed and was within normal limits. Basic metabolic profile was reviewed and was within normal limits. PT with INR and PTT were reviewed and were within normal limits. Serum lactate was reviewed and was elevated at 3.0. Initial high-sensitivity troponin was reviewed and was normal at 7. 2-hour repeat high-sensitivity troponin was reviewed and was normal at 10. Labs: Laboratory Results - last 24 hr 05/09/25 05/09/25 05/09/25 17:24 17:42 20:35 WBC 10.7 RBC 4.99 Hgb 13.7 Hct 40.8 MCV 81.8 MCH 27.5 MCHC 33.6 RDW Std Deviation 35.2 RDW Coeff of Ferny 11.8 Plt Count 267 MPV 10.3 Immature Gran % (Auto) 0.500 Neut % (Auto) 81.4 H Lymph % (Auto) 12.6 L Lea % (Auto) 4.6 Eos % (Auto) 0.4 Baso % (Auto) 0.5 Absolute Neuts (auto) 8.7 H Absolute Lymphs (auto) 1.34 Nucleated RBC % 0 PT 13.0 INR 1.0 APTT 23.6 L Sodium 135 Potassium 3.8 Chloride 98 Carbon Dioxide 24.0 Anion Gap 13 BUN 12 Creatinine 1.04 Estim Creat Clear Calc 103.23 Est GFR (MDRD) Non-Af 93 BUN/Creatinine Ratio 11.5 Glucose 257 H Lactic Acid 3.0 H* Calcium 9.8 Troponin T High Sens 7 D Troponin T Hi Sens 2 Hr 10 POC Glucose 246 H ABG Data Attestation: I personally reviewed and interpreted this ABG as follows: Interpretation: Arterial blood gas was reviewed. pH was 7.39. pCO2 was 45.3, pO2 was 61, bicarb was 27.4, and oxygen saturation of 90% on room air. ABG results: ABG 05/09/25 18:36 Specimen Type ART Sample Site R Radial pH 7.39 Bicarbonate Actual 27.4 H Total CO2 29 Base Excess 3 H O2 Saturation 90 L ABG pCO2 45.3 H ABG pO2 61 L Nima Test Positive O2 Delivery Device Room Air Vent Mode Not entered Radiography Chest X-Ray - ED: 1 View, Read by ED Physician, Read by Radiologist and No Acute Disease Diagnostic Testing: Clinical Impression(s) from Imaging Studies Brain CT 05/09/25 17:34 IMPRESSION: 1. No acute intracranial abnormality. 2. Stable bilateral ventricular enlargement. Reading Location: [id number] Chest X-Ray 05/09/25 18:00 IMPRESSION: Shallow inspiration. No evidence of acute cardiopulmonary disease. Reading Location: [id number] CT scan of the brain was obtained. There is no acute intracranial abnormality. This was interpreted by the radiologist. I also independently reviewed the images and did not see any acute intracranial bleeding or mass. Portable 1 view chest x-ray was obtained. On my independent interpretation, lung hudson are clear. There is normal cardiac silhouette. Bony thorax is normal. There is no acute process noted. Radiologist also interpreted the x- ray and agrees. EKG Initial EKG: Attestation: I personally reviewed and interpreted this EKG as follows: Interpretation: Sinus Rhythm (100) and No Acute Injury Pattern Comments: EKG was obtained. On my independent interpretation, it showed a normal sinus rhythm with a rate of 100. SD interval, QRS interval, and QTc intervals were all normal. [place] was normal. There are no acute ST or T wave changes. Prior EKG tracings: available for review Prior: Unchanged (03/05/2025) Treatment and Re-Evaluation :: Patient was given IV fluids. Patient was given a dose of Ativan because he appeared to be having shaking of his head that was uncontrollable. Patient had a second episode of shaking of his head. Because of this, possibility of recurrent seizure was discussed. Patient was given a dose of Keppra here. Patient was also given a dose of Narcan. On reevaluation, patient is maintaining his airway and is resting comfortably. Vitals are stable. remembered that patient told her that he took a whole gummy today when he normally only takes part of a gummy. Patient was given a repeat bolus of normal saline. Patient was observed in the emergency department. Patient is starting to wake up and become more alert. Patient was advised that this is most likely from his gummy that he took today. Patient will be observed in the emergency department till he is more awake. At that time, I feel patient could be discharged home. Discharge Plan Triage Chief Complaint: Alt LOC ED Provider: Tito Mota Dx/Rx/DC Orders Clinical Impression: Altered mental status, Substance use, 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 Instructions: ED ALOC Prescriptions: No Action Trulicity 1.5 mg/0.5 mL pen injector 1.5 mg subcut QWEEK lisinopril 20 mg tablet 20 mg PO DAILY Qty: 30 2RF Primary Care Provider: Ranjit Azar Referrals: Ranjit Azar DO [Primary Care Provider, Medical] - 5-7 Days Print Language: Prydeinig Disposition Disposition: Home, Self Care
[2025-05-09] MEDS: 0.9% Normal Saline (1000mL) 1,000 ML 1000 ML IV ×2 (17:50→22:51)
[2025-05-09 17:52] LABS: Hematocrit 40.8 % (40-54); Hemoglobin 13.7 g/dL (13.0-16.5); Immature Granulocytes Count 0.050 X10^3/uL (0.0-0.0); Mean Corp Hgb Conc 33.6 g/dL (32-36); Mean Corpuscular Volume 81.8 fL (80-94); Mean Platelet Vol. 10.3 fl (6.2-12.0); NRBC Flagged by Analyzer 0 % (0-5); Platelet Count 267 K/mm3 (150-450); RBC Distribution Width CV 11.8 % (11.6-14.6); RBC Distribution Width SD 35.2 fl (35.1-43.9); Red Blood Count 4.99 M/mm3 (4.6-6.2); White Blood Count 10.7 K/mm3 (4.4-11.0)
[2025-05-09 17:56] VITALS: BMI 35.2
--- NOTE | 2025-05-09 18:00 | RAD_ITS ---
PROCEDURE: CHEST 1 VIEW (PORTABLE) 05/09/2025 REASON FOR EXAM: ALTERED MENTAL STATUS TECHNIQUE: Frontal view of the chest. COMPARISON: 03/04/2025 FINDINGS: Suboptimal inspiration. No appreciable focal consolidation, pneumothorax or sizable pleural effusion. Cardiac silhouette is likely normal in size given technique. Minimal degenerative changes of the spine. RAD/Chest 1 View (Portable) IMPRESSION: Shallow inspiration. No evidence of acute cardiopulmonary disease. Reading Location: [id number]
[2025-05-09 18:10] LABS: Prothrombin Time (Protime)PT. 13.0 SECONDS (11.7-14.9)
[2025-05-09 18:11] LABS: Partial Thromboplast Time 23.6 Seconds (24.1-36.2)
--- OUTSIDE RECORDS SUMMARY | 2025-05-09 18:18 | XMS RPT_ITS | CCD ---
Author Organization [facility] Care Team Providers Care Outside Sales Account Executive Name Role Phone RANJIT AZAR Unavailable Unavailable MUAKKASSA, FARID F Unavailable Unavailable MUAKKASSA, FARID F Unavailable Unavailable CERVINO, A L Unavailable Unavailable ADURY, WALTER S Unavailable Unavailable FADY COVARRUBIAS Unavailable Unavailable MCKENZIE ZAMARRIPA Unavailable Unavailable RANJIT AZAR Unavailable Unavailable LUDWIG, GAMA A Unavailable Unavailable HAYDOUR, QUSAY Unavailable Unavailable BOLLIN, GAMA E Unavailable Unavailable CILTEA, SHELBI Unavailable Unavailable MUAKKASSA, FARID PALMER Unavailable Unavailabl e MUAKKASSA, FARID PALMER Unavailable Unavailabl e FADY COVARRUBIAS Unavailable Unavailable OLEIOANAEMCKENZIE Unavailable Unavaila ble HAYDOUR, QUSAY Unavailable Unavailable CILTEA, SHELBI Unavailable Unavailable Ranjit Azar Primary Care Provider Unavailable Primary Care Provider UnavailRanjit Aburto DO Primary Care Provider [facility], Keti Unavailable [facility], Ani Unavailable Jessica RN, Nancy Unavailable Unavailtaty Lopez RN, Nancy Unavailable UnavailRanjit Aburto DO Primary Care Provider [facility], Keti Unavailable [facility], Ani Unavailable Ranjit Azar DO Primary Care Provider [facility], Keti Unavailable [facility], Ani Unavailable Jessica RN, Nancy Unavailable Unavailabl e Ranjit Azar DO Primary Care Provider [facility], Keti Unavailable [facility], Ani Unavailable Dr. Ranjit Azar Primary Care Provider Dr. Jah Santiago Emergency Provider Korciara, Dr. Hoa Martell Admit Provider Korciara, Dr. Hoa Martell Other Provider Kaushik, Dr. Scott Attending Provider Kaushik, Dr. Scott Other Provider [facility], Keti Unavailable Dr. Ranjit Azar Primary Care Provider Dr. Jah Santiago Emergency Provider Korciara, Dr. Hoa Martell Admit Provider Korciara, Dr. Hoa Martell Other Provider Kaushik, Dr. Scott Attending Provider Kaushik, Dr. Scott Other Provider Ranjit Azar DO Primary Care Provider [facility], Ani Unavailable Kali ROOF DESIGNER.WARRANTY CLERK, Nicole Alberto Unavailable Patrick ROOF DESIGNER.WARRANTY CLERK, Love Unavailable Marcial ROOF DESIGNER.CHRIS, Lance Gallego Unavailable Javid Winter MD Emergency Provider Dr. Ranjit Azar DO Primary Care Provider Javid Winter MD Attending Physician Javid Winter MD Emergency Department Physician Dr. Ranjit Azar DO Primary Care Physician Dr. Timothy Chao DO Emergency Departmen t Physician Haseeb BANKS, Dr. Matute Admitting Physician Haseeb BANKS, Dr. Matute Nurse Practitioner Divine JOSEPH, Dr. Hoa Martell Attending Physician Génesis JOSEPH, Dr. Castellanos Attending Physician Divine JOSEPH, Dr. Hoa Martell Nurse Practitioner Giovani Membreno Admitting Unavailable Giovani Membreno Consulting Unavailable Giovani Membreno Attending Unavailable Azar, Ranjit Primary Care Unavailable Azar, Ranjit Primary Care Unavailable Javid Winter Attending Unavailable Giovani Membreno Admitting Unavailable Giovani Membreno Consulting Unavailable Koram, Hoa Jayshree Attending Unavailable Azar, Ranjit Primary Care Unavailable Emanuel Capps Attending Unavailable Azar, Ranjit Primary Care Unavailable Koram, Hoa Martell Attending Unavailable Koram, Hoa Jayshree Consulting Unavailable AZAR, RANJIT L Primary Care Unavailable LANCE PULIDO Attending Unavailable AZAR, RANJIT L Referring Unavailable AZAR, RANJIT L Primary Care Unavailable PATRICKLOVE Attending Unavailable AZAR, RANJIT L Referring Unavailable AZAR, RANJIT L Primary Care Unavailable PATRICK, LOVE Referring Unavailable AZRA, RANJIT L Primary Care Unavailable SELF Referring Unavailable LEANNA OWENS Attending Unavailable Allergies Allergy Classification Reported Allergen(s) Allergy Type Date of Onset Reaction(s) Facility (20 sources) acetaminophen / HYDROcodone; Translations: [HYDROCODONE-ACET AMINOPHEN] Drug Allergy 5 Hives [facility] Repository (20 sources) baclofen; Translations: [BACLOFEN] Drug Allergy 6 Hives, Other: See Comments [facility] Repository (5 sources) coconut extract; Translations: [COCONUT] Drug Allergy 0 AOF, Hives [facility] Repository (14 sources) lactose; Translations: [LACTOSE] Drug Allergy 0 Diarrhea [facility] Repository (16 sources) Penicillins; Translations: [PENICILLINS] Propensity to adverse reactions (disorder) 9 [facility] Repository (5 sources) strawberry allergenic extract; Translations: [STRAWBERRY] Drug Allergy 0 [facility] Repository (13 sources) Acetaminophen Drug Allergy 8 [facility] [employer] Work Phone: (2 sources) Other Propensity to adverse reactions 0 [facility] Work Phone: (2 sources) coconut allergenic extract Drug Allergy 0 Anaphylaxis [place], [place] (2 sources) Lactose (non-medical use) Propensity to adverse reactions to drug 0 Diarrhea [place], [place] (2 sources) [place] [facility] Propensity to adverse reactions to drug 0 [place], [place] (10 sources) HYDROcodone; Translations: [hydrocodone bitartrate] Drug Allergy 2 [facility] (12 sources) Penicillin; Translations: [PENICILLIN] Drug Allergy 4 [facility] (1 source) Acetaminophen Drug Allergy 5 [facility] Repository Medications Current Medications Medication Drug Class(es) Dates Sig (Normalized) Sig (Original) [id number] 200 actuat albuterol 0.09 mg/actuat metered dose inhaler (20 sources) beta2-Adrenergic Agonist Start: 04-15-2022 End: 03-13-2023 take 2 puff(s) by inhalation every six hours as needed albuterol HFA (PROAIR HFA) 90 mcg/actuation inhaler Inhale 2 Puffs as instructed every 6 hours as needed. 18 g 5 03/13/2023 Active Start: 10-01-2021 take 2 puff(s) by in halation every six hours as needed albuterol HFA (PROAIR HFA) 90 mcg/actuation inhaler Inhale 2 Puffs as instructed every 6 hours as needed. 1 Inhaler 5 10/01/2021 Active Start: 02-21-2020 End: 09-30-2021 take 2 puff(s) by inhalation every six hours as needed albuterol HFA (PROVENTIL HFA, VENTOLIN HFA) 90 mcg/actuation inhaler Inhale 2 Puffs as instructed every 6 hours as needed. 18 g 5 02/21/2020 09/30/2021 Discontinued Start: 10-22-2014 End: 01-21-2025 Albuterol Sulfate 1 PUFF inh aler Discontinued 2 NMA inhalation EVERY 6 HOURS NEEDED as needed for Sob &/Or Wheezing October 22, 2014 12:00am January 21, 2025 12:04pm Start: 10-22-2014 take 1 puff(s) by in halation every six hours as needed Albuterol Sulfate Active 2 PUFF inhalation EVERY 6 HOURS NEEDED October 21, 2014 11:00pm Start: 10-22-2014 take 1 puff(s) by in halation every six hours as needed Albuterol Sulfate Active 2 PUFF inhalation EVERY 6 HOURS NEEDED October 22, 2014 12:00am Comment on above: Inhale 2 Puffs as in structed every 6 hours as needed. albuterol sulfate HFA 108 (90 Base) MCG/ACT inhaler (4 sources) take 2 puff(s) by inhalation every six hours as needed for wheezing albuterol sulfate HFA 108 (90 Base) MCG/ACT inhaler Inhale 2 puffs into the lungs every 6 hours as needed for Wheezing 0 Active amoxicillin 875 mg / clavulanate 125 mg oral tablet (2 sources) Penicillin-class Antibacterial Start: 01-01-20 amoxicillin-clavu lanate (AUGMENTIN) 875-125 MG per tablet 1 tablet Start: 01-01-2020 End: 01-29-2020 take 17.5 mL by mouth twice daily amoxicillin-clavulanate (AUGMENTIN) 250-62.5 MG/5ML suspension Take 17.5 mLs by mouth 2 times daily for 28 days 980 mL 0 01/01/2020 01/29/2020 Active Blood-Glucose Meter,Continuo us (FREESTYLE LICO 3 READER) misc (9 sources) Start: 01-27-2025 Blood-Glucose Meter,Continuous (FREESTYLE LICO 3 READER) misc Indications: Type 2 diabetes mellitus with diabetic neuropathy, with long-term current use of insulin (HCC) , Noncompliance 1 each continuous. 1 each 01/27/2025 Active Start: 06-19-2024 End: 01-27-2025 Blood-Glucose Meter,Continuo us (FREESTYLE LICO 3 READER) [facility] [place]: Type 2 diabetes mellitus with diabetic neuropathy, with long-term current use of insulin (HCC) 1 Each continuous. 1 Each 06/19/2024 01/27/2025 Discontinued Start: 06-19-2024 Blood-Glucose Meter,Continuous (FREESTYLE LICO 3 READER) [facility] [place]: Type 2 diabetes mellitus with diabetic neuropathy, with long-term current use of insulin (HCC) 1 Each continuous. 1 Each 06/19/2024 Active Blood-Glucose Sensor (FREEST YLE LICO 3 SENSOR) [facility] (20 sources) Start: 01-27-2025 Blood-Glucose Sensor (FREESTYLE LICO 3 SENSOR) [facility] Indications: Type 2 diabetes mellitus with diabetic neuropathy, with long-term current use of insulin (HCC) , Noncompliance Apply new sensor every fourteen (14) days to upper arm. 6 each 01/27/2025 Active Start: 06-19-2024 End: 01-27-2025 Blood-Glucose Sensor (FREEST YLE LICO 3 SENSOR) [facility] Indications: Type 2 diabetes mellitus with diabetic neuropathy, with long-term current use of insulin (HCC) Apply new sensor every fourteen (14) days to upper arm. 6 Each 06/19/2024 01/27/2025 Discontinued Start: 06-19-2024 Blood-Glucose Sensor (FREESTYLE LICO 3 SENSOR) [facility] Indications: Type 2 diabetes mellitus with diabetic neuropathy, with long-term current use of insulin (HCC) Apply new sensor every fourteen (14) days to upper arm. 6 Each 06/19/2024 Active Start: 10-30-2023 End: 06-19-2024 Blood-Glucose Sensor (FREEST YLE LICO 3 SENSOR) [facility] Indications: Type 2 diabetes mellitus with diabetic neuropathy, with long-term current use of insulin (HCC) Apply new sensor every fourteen (14) days to upper arm. 6 Each 10/30/2023 06/19/2024 Discontinued Start: 10-30-2023 Blood-Glucose Sensor (FREESTYLE LICO 3 SENSOR) [facility] Indications: Type 2 diabetes mellitus with diabetic neuropathy, with long-term current use of insulin (HCC) Apply new sensor every fourteen (14) days to upper arm. 6 Each 10/30/2023 Active Start: 02-10-2023 End: 10-30-2023 Blood-Glucose Sensor (FREEST YLE LICO 3 SENSOR) [facility] Indications: Type 2 diabetes mellitus with diabetic neuropathy, with long-term current use of insulin (HCC) Apply new sensor every fourteen (14) days to upper arm. 6 Each 4 02/10/2023 10/30/2023 Discontinued Start: 02-10-2023 Blood-Glucose Sensor (FREESTYLE LICO 3 SENSOR) [place] Indications: Type 2 diabetes mellitus with diabetic neuropathy, with long-term current use of insulin (HCC) Apply new sensor every fourteen (14) days to upper arm. 6 Each 4 02/10/2023 Active Comment on above: Apply new sensor [place] fourteen (14) days to upper arm. cholecalciferol 1.25 mg oral capsule (20 sources) Vitamin D Start: 07-01-19 End: 04-27-20 take 1 capsule by mouth every week cholecalciferol, Vitamin D3, (VITAMIN D3) 1,250 mcg (50,000 unit) cap capsule Indications: Vitamin D deficiency , Noncompliance Take 1 capsule by mouth one time a week. 4 capsule 2 01/27/2025 04/27/2025 Active Start: 10-22-2021 End: 06-19-2024 take 1 capsule by mouth every week cholecalciferol, Vitamin D3, (VITAMIN D3) 1,250 mcg (50,000 unit) cap capsule Indications: Arthritis of foot , Polyarthralgia , Chronic pain of both ankles , History of vitamin D deficiency Take 1 capsule by mouth one time a week. 10/22/2021 06/19/2024 Discontinued Start: 09-04-2018 End: 09-30-2021 take 1 capsule by mouth every week cholecalciferol, Vitamin D3, (VITAMIN D3) 1,250 mcg (50,000 unit) cap capsule Take 1 capsule by mouth one time a week. 09/04/2018 09/30/2021 Discontinued Start: 10-22-2014 End: 01-21-2025 Cholecalciferol (Vitamin D3) 1,000 UNIT tablet Discontinued 81313 U PO EVERY WEEK October 22, 2014 12:00am January 21, 2025 12:04pm replacement Start: 10-22-2014 take 96918 [IU] by m outh every week Cholecalciferol (Vitamin D3) Active 64186 UNIT PO EVERY WEEK October 21, 2014 11:00pm Start: 12-31-2013 End: 09-12-2014 take 1 tablet by mouth once daily Cholecalciferol (Vitamin D3) (Vitamin D3) 2,000 UNIT tablet Discontinued 2000 U PO DAILY December 31, 2013 12:00am September 12, 2014 11:40am take 1 capsule by mo uth once daily Cholecalciferol (VITAMIN D3) 57911 units CAPS Take 1 capsule by mouth daily 0 Active Comment on above: Take 1 capsule by mo [facility] one time a week. doxepin hydrochloride 25 mg oral capsule (14 sources) Tricyclic Antidepressant Start: 01-01-2020 take 25 mg by mouth once daily 25 mg, Oral, NIGHTLY, First dose on Mon01/01/20 at 2100 Start: 01-11-2018 End: 01-21-2025 take 25-50 mg by mouth at bedtime as needed Doxepin 25 MG capsule Discontinued 25 - 50 mg PO AT BEDTIME NEEDED as needed for Insomnia January 11, 2018 12:00am January 21, 2025 12:04pm 0.5 ml dulaglutide 3 mg/ml auto-injector (20 sources) GLP-1 Receptor Agonist Start: 07-01-2024 End: 04-27-2025 dulaglutide (TRULICITY) 1.5 mg/0.5 mL pen injector Indications: Type 2 diabetes mellitus with diabetic neuropathy, with long-term current use of insulin ([facility]) , Noncompliance , Obesity, Class I, BMI 30-34.9 Inject 1.5 mg subcutaneously one time a week. 6 mL 01/27/2025 04/27/2025 Active Start: 02-10-2023 End: 09-17-2024 inject 0.75 mg by subcutaneous injection every week dulaglutide (TRULICITY) 0.75 mg/0.5 mL pen injector Indications: Type 2 diabetes mellitus with diabetic neuropathy, with long-term current use of insulin ([facility]) Inject 0.75 mg subcutaneously one time a week. 2 mL 2 06/19/2024 07/01/2024 Discontinued Start: 12-24-2021 End: 10-28-2022 dulaglutide (TRULICITY) 1.5 mg/0.5 mL pen injector Inject 1.5 mg subcutaneously one time a week. Inject once per week. Discard Pen After 6 mL 1 06/03/2022 10/28/2022 Discontinued (Course of therapy completed) Start: 02-01-2021 End: 12-24-2021 inject 0.75 mg by subcutaneous injection every week dulaglutide (TRULICITY) 0.75 mg/0.5 mL pen injector Indications: Type 2 diabetes mellitus with diabetic neuropathy, with long-term current use of insulin (HCC) Inject 0.75 mg subcutaneously one time a week. 2 mL 02/01/2021 09/30/2021 Discontinued Comment on above: Inject 0.75 mg subcu taneously one time a week. Inject 1.5 mg subcut aneously one time a week. Inject once per week. Discard Pen After fluticasone / salmeterol (20 sources) Corticosteroid, beta2-Adrenergic Agonist Start: take 1 dose by mouth twice daily fluticasone-salmete rol (ADVAIR DISKUS) 500-50 mcg/dose dsdv One inhalation twice a day. Rinse mouth out after use. 1 Each 09/28/2022 Active Start: 09-30-2021 End: 09-26-2022 take 1 dose by mouth twice daily fluticasone-salmeterol (ADVAIR DISKUS) 500-50 mcg/dose dsdv One inhalation twice a day. Rinse mouth out after use. 1 Each 09/30/2021 09/26/2022 Discontinued Start: 09-30-2021 take 1 dose by mouth twice daily fluticasone-salmeterol (ADVAIR DISKUS) 500-50 mcg/dose dsdv One inhalation twice a day. Rinse mouth out after use. 1 Each 09/30/2021 Active Start: 09-30-2021 take 1 dose by mouth twice daily fluticasone-salmeterol (ADVAIR DISKUS) 500-50 mcg/dose dsdv One inhalation twice a day. Rinse mouth out after use. 1 Each 09/30/2021 Active Start: 06-22-2021 End: 09-30-2021 take 1 puff(s) by inhalation twice daily fluticasone-salmeterol (ADVAIR) 500-50 mcg/dose dsdv Inhale 1 Puff as instructed twice daily. 1 Each 06/22/2021 09/30/2021 Discontinued Start: 06-22-2021 take 1 puff(s) by in halation twice daily fluticasone-salmeterol (ADVAIR) 500-50 mcg/dose dsdv Inhale 1 Puff as instructed twice daily. 1 Each 06/22/2021 Active Start: 12-31-2020 End: 09-30-2021 take 1 dose by mouth twice daily fluticasone-salmeterol (ADVAIR DISKUS) 500-50 mcg/dose dsdv One inhalation twice a day. Rinse mouth out after use. 1 Each 12/31/2020 09/30/2021 Discontinued Start: 12-31-2020 take 1 dose by mouth twice daily fluticasone-salmeterol (ADVAIR DISKUS) 500-50 mcg/dose dsdv One inhalation twice a day. Rinse mouth out after use. 1 Each 12/31/2020 Active End: 08-03-2021 take 2 puff(s) by inhalation twice daily fluticasone-salmeterol (ADVAIR DISKUS) 250-50 mcg/dose inhaler Inhale 2 Puffs as instructed twice daily. 08/03/2021 Discontinued Comment on above: One inhalation twice a day. Rinse mouth out after use. Inhale 1 Puff as ins tructed twice daily. glucagon (rdna) 1 mg injection (1 source) Antihypoglycemic Agent Start: 01-01-2020 glucagon (rDNA) injection 1 mg 150 ml glucose 50 mg/ml injection (3 sources) Start: 01-01-2020 glucose (GLUTOSE) 40 % oral gel 15 g Start: 01-01-2020 dextrose 50 % IV solution Start: 01-01-2020 dextrose 5 % s olution ibuprofen 200 mg oral tablet (1 source) Nonsteroidal Anti-inflammatory Drug Start: 12-30-2019 take 800 mg by mouth every six hours as needed for pain 800 mg, Oral, EVERY 6 HOURS PRN, Pain Mild (1-3), Starting 12/30/19 at 1822 Do not crush or chew. insulin glargine 100 unt/ml injectable solution (10 sources) Insulin Analog Start: 01-01-2020 insulin glargine (LANTUS) injection vial 28 Units Start: 09-09-2014 End: 09-12-2014 Insulin Glargine (Lantus Ana Rosa ostar Pen) 100 UNITS/ML Pen Discontinued 10 U AT BEDTIME September 09, 2014 12:00am September 12, 2014 11:40am insulin lispro 100 unt/ml injectable solution (1 source) Insulin Analog Start: 01-01-2020 inject 6 [IU] by subcutaneous injection three times daily before mealtime 6 Units, Subcutaneous, 3 TIMES DAILY BEFORE MEALS, First dose on Mon01/01/20 at 1100 lisinopril 20 mg oral tablet (20 sources) Angiotensin Converting Enzyme Inhibitor Start: 03-05-2025 take 1 tablet by mouth once daily Start: 06-19-2024 End: 07-20-2025 take 1 tablet by mouth once daily Lisinopril 10 mg tablet Discontinued 10 mg PO DAILY March 04, 2025 12:00am March 05, 2025 5:15pm Start: 11-15-2022 End: 06-19-2024 take 1 tablet by mouth once daily lisinopril (ZESTRIL) 40 mg tablet Take 1 tablet by mouth once daily. 30 tablet 2 03/13/2023 06/19/2024 Discontinued Start: 05-12-2022 End: 10-19-2022 take 1 tablet by mouth once daily lisinopril (ZESTRIL) 40 mg tablet Take 1 tablet by mouth once daily. 30 tablet 0 10/20/2022 Active Start: 11-30-2020 End: 05-09-2022 take 1 tablet by mouth once daily lisinopril (ZESTRIL, PRINIVIL) 40 mg tablet Take 1 tablet by mouth once daily. 30 tablet 5 09/30/2021 05/09/2022 Discontinued Start: 01-01-2020 take 40 mg by mouth once daily 40 mg, Oral, DAILY, First dose on Mon01/01/20 at 1015 Start: 08-22-2019 take 1 tablet by mitul th once daily lisinopril (PRINIVIL;ZESTRIL) 40 MG tablet Take 1 tablet by mouth daily 90 tablet 1 08/22/2019 Active Start: 03-06-2018 lisinopril (MA INIVIL;ZESTRIL) 20 MG tablet Take 30 mg by mouth daily 0 03/06/2018 Active Start: 03-06-2015 End: 01-21-2025 take 3 tablets by mouth once daily Lisinopril 10 MG tablet Discontinued 30 mg PO DAILY March 06, 2015 12:00am January 21, 2025 12:05pm BLOOD PRESSURE Start: 03-06-2015 take 30 mg by mouth once daily Lisinopril Active 30 MG PO DAILY March 05, 2015 11:00pm Comment on above: Take 1 tablet by [facility] once daily. Mometasone-Formote rol (3 sources) Start: 02-17-2018 take 1 puff(s) by inhalation twice daily Mometasone-Formoter ol Active 2 PUFF IH TWICE A DAY February 16, 2018 11:00pm Start: 02-17-2018 take 1 puff(s) by in halation twice daily Mometasone-Formoterol Active 2 PUFF IH TWICE A DAY February 17, 2018 12:00am nadolol 40 mg oral tablet (20 sources) beta-Adrenergic Deb Start: 01-01-2020 take 40 mg by mouth once daily 40 mg, Oral, DAILY, First dose on Mon01/01/20 at 1015 Start: 09-10-2017 End: 01-21-2025 take 1 tablet by mouth once daily Nadolol 20 MG tablet Discontinued 40 mg PO DAILY September 10, 2017 12:00am January 21, 2025 12:05pm BLOOD PRESSURE Start: 09-10-2017 take 40 mg by mouth once daily Nadolol Active 40 MG PO DAILY September 09, 2017 11:00pm Start: 04-24-2017 End: 09-30-2021 take 2 tablets by mouth once daily nadolol (CORGARD) 20 mg tablet Take 2 tablets by mouth once daily. 180 tablet 1 04/24/2017 09/30/2021 Discontinued take 2 tablets by [facility] twice daily, then take 2 tablets by mouth twice daily nadolol (CORGARD) 20 MG tablet Take 40 mg by mouth 2 times daily Pt takes two 20 mg tabs BID for total of 40 mg BID 0 Active Comment on above: Take 2 tablets by mo [facility] once daily. nortriptyline 10 mg oral capsule (20 sources) Tricyclic Antidepressant Start: 01-01-2020 take 10 mg by mouth once daily 10 mg, Oral, NIGHTLY, First dose on Mon01/01/20 at 2100 Start: 01-11-2018 End: 01-21-2025 take 1 capsule by mouth at bedtime Nortriptyline 10 MG capsule Discontinued 10 mg PO AT BEDTIME January 11, 2018 12:00am January 21, 2025 12:05pm SLEEP Comment on above: Take 10 mg by mouth daily at bedtime. Nutritional Supplements (PROMOTE PO) (4 sources) take 237 mL by mouth twice daily Nutritional Supplements (PROMOTE PO) Take 237 mLs by mouth 2 times daily 0 Active oxyCODONE hydrochloride 5 mg oral tablet (11 sources) Opioid Agonist Start: 0 End: 0 take 1 tablet by mouth every six hours as needed for pain oxyCODONE (ROXICODONE) 5 MG immediate release tablet Indications: Osteomyelitis of mandible Take 1 tablet by mouth every 6 hours as needed for Pain for up to 3 days. 20 tablet 0 01/01/2020 01/04/2020 Active Start: 12-30-2019 take 5 mg by mouth e very four hours as needed for pain 5 mg, Oral, EVERY 4 HOURS PRN, Pain Severe (7-10), Starting 12/30/19 at 1822, Post-op Start: 04-22-2019 End: 05-02-2019 take 1 tablet by mouth every six hours as needed for pain Oxycodone 5 MG tablet Discontinued 5 mg PO EVERY 6 HOURS NEEDED as needed for Pain Score 6-10/10 12 4 0 April 22, 2019 April 25, 2019 1:00am May 02, 2019 1:08am Acute gangrenous cholecystitis Acute cholecystitis pregabalin 75 mg oral capsul e (1 source) pregabalin (LYRI CA) 75 MG capsule Indications: Ok to open capsule and mix with liquids Take 75 mg by mouth 2 times daily.. 0 Active Completed/Discontinued Medications Medication Drug Class(es) Dates Sig (Normalized) Sig (Original) acetaminophen 325 mg oral tablet (9 sources) Start: 06-28-2019 End: 01-21-2025 take 1 tablet by mouth every six hours as needed for headache Acetaminophen 325 MG tablet Discontinued 325 mg PO EVERY 6 HOURS NEEDED as needed for Headache June 28, 2019 1:00am January 21, 2025 12:04pm acetaminophen 325 mg / HYDROcodone bitartrate 5 mg oral tablet (20 sources) Opioid Agonist Start: 01-07-2016 End: 01-07-2016 Hydrocodone-Acetami nophen 1 TABLET tablet Discontinued 1 - 2 {tbl} PO EVERY 4 HOURS NEEDED as needed for Pain 12 January 07, 2016 12:00am January 07, 2016 10:38pm Start: 01-07-2016 End: 01-07-2016 take 1 tablet by mouth every four hours as needed Hydrocodone-Acetaminophen Discontinued 1 - 2 TABLET PO EVERY 4 HOURS NEEDED January 06, 2016 11:00pm January 07, 2016 9:38pm Start: 10-11-2014 End: 10-11-2014 Hydrocodone-Acetaminophen 1 TABLET tablet Discontinued 1 - 2 {tbl} PO EVERY 4 HOURS NEEDED as needed for Pain 12 October 11, 2014 12:00am October 11, 2014 8:46pm Start: 10-11-2014 End: 10-11-2014 take 1 tablet by mouth every four hours as needed Hydrocodone-Acetaminophen Discontinued 1 - 2 TABLET PO EVERY 4 HOURS NEEDED October 10, 2014 11:00pm October 11, 2014 7:46pm Start: 05-30-2013 End: 06-27-2013 Hydrocodone-Acetaminophen 1 TABLET tablet Discontinued 1 - 2 {tbl} PO EVERY 4 HOURS NEEDED as needed for Pain 20 May 30, 2013 1:00am June 27, 2013 6:15pm Start: 05-30-2013 End: 06-27-2013 take 1 tablet by mouth every four hours as needed Hydrocodone-Acetaminophen Discontinued 1 - 2 TABLET PO EVERY 4 HOURS NEEDED May 30, 2013 12:00am June 27, 2013 5:15pm Albuterol Sulfate 1 PUFF inhaler (1 source) Start: 10-22-2014 End: 01-21-2025 Albuterol Sulfate 1 PUFF inhaler Discontinued 2 NMA inhalation EVERY 6 HOURS NEEDED as needed for Sob &/Or Wheezing October 22, 2014 12:00am January 21, 2025 12:04pm ALPRAZolam 0.25 mg disintegrating oral tablet (1 source) Benzodiazepine Start: 12-30-2019 End: 12-30-2019 ALPRAZolam (NIRAVAM) dissolvable tablet 0.25 mg atorvastatin 20 mg oral tablet (20 sources) HMG-CoA Reductase Inhibitor Start: 11-01-2022 End: 06-19-2024 take 1 tablet by mouth once daily at bedtime for hyperlipidemia atorvastatin (LIPITOR) 20 mg tablet Indications: Mixed hyperlipidemia Take 1 tablet by mouth daily at bedtime. For cholesterol. 90 tablet 1 11/01/2022 06/19/2024 Discontinued Comment on above: Take 1 tablet by mitul daily at bedtime. For cholesterol. calcium chloride 0.0014 meq/ml / potassium chloride 0.004 meq/ml / sodium chloride 0.103 meq/ml / sodium lactate 0.028 meq/ml injectable solution (1 source) Start: 12-30-2019 End: 12-30-2019 lactated ringers infusion ceFAZolin 2000 mg injection (2 sources) Cephalosporin Antibacterial Start: 12-30-2019 End: 12-31-2019 2 g, Intravenous, EVERY 8 HOURS, 6 doses, First dose on Mon12/30/19 at 2130, Last dose on Mon01/01/20 at 1330, Post-op Start: 12-30-2019 End: 12-30-2019 ceFAZolin (ANCEF) 2 g in dex trose 4 % 100 mL IVPB (premix) celecoxib 400 mg oral capsule (1 source) Nonsteroidal Anti-inflammatory Drug Start: 12-30-2019 End: 12-30-2019 celecoxib (CELEBREX) capsule 400 mg cephalexin 500 mg oral capsule (3 sources) Cephalosporin Antibacterial Start: 10-21-2023 End: 01-21-2025 take 1 capsule by mouth every six hours Cephalexin 500 mg capsule Discontinued 500 mg PO EVERY 6 HOURS 40 0 October 21, 2023 12:00am January 21, 2025 12:04pm cetirizine hydrochloride 10 mg oral capsule (20 sources) Histamine-1 Receptor Antagonist Start: 04-06-2021 End: 06-19-2024 take 1 tablet by mouth once daily as needed cetirizine (ZYRTEC) 10 mg tablet Take 1 tablet by mouth once daily as needed (for itching, sneezing or runny nose). 30 tablet 11 09/30/2021 06/19/2024 Discontinued Start: 01-01-2020 take 10 mg by mouth once daily 10 mg, Oral, DAILY, First dose on Mon01/01/20 at 1015 Start: 06-28-2019 End: 01-21-2025 take 1 capsule by mouth once daily as needed Cetirizine 10 MG capsule Discontinued 10 mg PO DAILY as needed for allergy 0 30 February 09, 2023 4:55pm January 21, 2025 12:04pm Comment on above: Take 1 tablet by mitul th once daily as needed (for itching, sneezing or runny nose). 50 ml clindamycin 18 mg/ml injection (1 source) Lincosamide Antibacterial Start: End: clindamycin (CLEOCIN) 900 mg in dextrose 5 % 50 mL IVPB clonazePAM 0.5 mg disintegrating oral tablet (11 sources) Benzodiazepine Start: 023 End: take 1 tablet by mouth every twenty-four hours as needed clonazePAM orally disintegrating (KLONOPIN WAFER) 0.5 mg disintegrating tablet Indications: Seizure disorder (HCC) Take one tablet as needed for seizure aura or seizure. May repeat dose one time in 24 hours if needed. 10 tablet 1 04/07/2023 06/19/2024 Discontinued Comment on above: Take one tablet as n eeded for seizure aura or seizure. May repeat dose one time in 24 hours if needed. CPAP (20 sources) Start: End: CPAP Indications: PILAR (obstructive sleep apnea) Please adjust Auto bilevel to following: IPAP max 24, EPAP min 12 and PS of 4-6 cmH2O. Also please provide mask fitting as numerous issues with current. 1 Device 09/28/2020 06/19/2024 Discontinued Start: 09-28-2020 CPAP Indicatio ns: PILAR (obstructive sleep apnea) Please adjust Auto bilevel to following: IPAP max 24, EPAP min 12 and PS of 4-6 cmH2O. Also please provide mask fitting as numerous issues with current. 1 Device 09/28/2020 Active Comment on above: Please adjust Auto b ilevel to following: IPAP max 24, EPAP min 12 and PS of 4-6 cmH2O. Also please provide mask fitting as numerous issues with current. diclofenac sodium 0.01 mg/mg topical gel (20 sources) Nonsteroidal Anti-inflammatory Drug Start: 01-11-2018 End: 01-21-2025 Diclofenac Sodium 100 GM gel Discontinued 1 NMA TP 4 TIMES DAILY as needed for BACK PAIN January 11, 2018 12:00am January 21, 2025 12:04pm Start: 11-01-2017 End: 09-30-2021 apply 2 g topically four times daily diclofenac sodium (VOLTAREN) 1 % topical gel Apply 2 g to affected area four times daily. 1 Tube 3 11/01/2017 09/30/2021 Discontinued Comment on above: Apply 2 g to affecte d area four times daily. dicyclomine hydrochloride 10 mg oral capsule (20 sources) Anticholinergic Start: 020 End: 025 take 1 capsule by mouth three times daily before mealtime Dicyclomine 10 MG capsule Discontinued 10 mg PO THREE TIMES DAILY BEFORE MEALS June 28, 2019 8:36pm January 21, 2025 12:04pm Start: 04-18-2019 End: 06-28-2019 take 2 capsules by mouth three times daily before mealtime Dicyclomine 10 MG capsule Discontinued 20 mg PO THREE TIMES DAILY BEFORE MEALS April 18, 2019 1:00am June 28, 2019 8:36pm Start: 04-18-2019 End: 06-28-2019 take 20 mg by mouth three times daily before mealtime Dicyclomine Discontinued 20 MG PO THREE TIMES DAILY BEFORE MEALS April 18, 2019 12:00am June 28, 2019 7:36pm Comment on above: Take 1 capsule by [facility] before meals and at bedtime. THREE TIMES DAILY BE FORE MEALS doxycycline hyclate 100 mg oral capsule (20 sources) Tetracycline-class Drug Start: End: take 1 capsule by mouth twice daily Doxycycline Hyclate 100 mg capsule Discontinued 100 mg PO TWICE A DAY August 16, 2022 12:00am February 08, 2023 12:25pm Start: 12-18-2021 End: 02-08-2023 take 1 tablet by mouth twice daily Doxycycline Hyclate 100 mg tablet Discontinued 100 mg PO TWICE A DAY January 08, 2022 12:00am February 08, 2023 12:25pm DULoxetine 60 mg delayed release oral capsule (20 sources) Serotonin and Norepinephrine Reuptake Inhibitor Start: 11-15-2022 End: 06-19-2024 take 1 capsule by mouth once daily DULoxetine (CYMBALTA) 60 mg capsule Indications: Chronic bilateral thoracic back pain , Spasm of thoracic back muscle Take 1 capsule by mouth once daily. 30 capsule 2 03/13/2023 06/19/2024 Discontinued Start: 05-12-2022 End: 10-19-2022 take 1 capsule by mouth once daily DULoxetine (CYMBALTA) 60 mg capsule Indications: Chronic bilateral thoracic back pain , Spasm of thoracic back muscle Take 1 capsule by mouth once daily. 30 capsule 0 10/20/2022 Active Start: 11-06-2020 End: 05-09-2022 take 1 capsule by mouth once daily DULoxetine (CYMBALTA) 60 mg capsule Indications: Chronic bilateral thoracic back pain , Spasm of thoracic back muscle Take 1 capsule by mouth once daily. 30 capsule 5 09/30/2021 05/09/2022 Discontinued Start: 02-29-2016 End: 01-21-2025 take 1 capsule by mouth once daily Duloxetine 30 MG capsule Discontinued 30 mg PO DAILY February 29, 2016 12:00am January 21, 2025 12:04pm DEPRESSION Comment on above: Take 1 capsule by mo [facility] once daily. ertapenem (INVANZ) 1,000 mg in sodium chloride 0.9 % 50 mL IVPB (add-vantage) (1 source) Start: 12-31-2019 End: 01-01-2020 ertapenem (INVANZ) 1,000 mg in sodium chloride 0.9 % 50 mL IVPB (add-vantage) famotidine 20 mg oral tablet (1 source) Histamine-2 Receptor Antagonist Start: 12-30-2019 End: 12-30-2019 famotidine (PEPCID) tablet 20 mg 2 ml fentaNYL 0.05 mg/ml injection (1 source) Opioid Agonist Start: 12-30-2019 End: 12-30-2019 fentaNYL (SUBLIMAZE) injection 50 mcg flash glucose scanning reader (FREESTYLE LICO 14 DAY READER) (20 sources) Start: 06-19-2024 End: 01-27-2025 flash glucose scanning reader (FREESTYLE LICO 14 DAY READER) Use to check blood sugar 4 times daily. 1 Each 06/19/2024 01/27/2025 Discontinued Start: 06-19-2024 flash glucose scanning reader (FREESTYLE LICO 14 DAY READER) Use to check blood sugar 4 times daily. 1 Each 06/19/2024 Active Start: 09-24-2022 End: 06-19-2024 flash glucose scanning reade r (FREESTYLE LICO 14 DAY READER) Indications: Type 2 diabetes mellitus without complication, with long-term current use of insulin (HCC) Use to check blood sugar 4 times daily. 1 Each 09/24/2022 06/19/2024 Discontinued Start: 09-24-2022 flash glucose scanning reader (FREESTYLE LICO 14 DAY READER) Indications: Type 2 diabetes mellitus without complication, with long-term current use of insulin (HCC) Use to check blood sugar 4 times daily. 1 Each 09/24/2022 Active Start: 09-24-2022 flash glucose scanning reader (FREESTYLE LICO 14 DAY READER) Indications: Type 2 diabetes mellitus without complication, with long-term current use of insulin (HCC) Use to check blood sugar 4 times daily. 1 Each 0 09/24/2022 Active Comment on above: Use to check blood s ugar 4 times daily. flash glucose scanning reader (FREESTYLE LICO 14 DAY READER) [facility]) Start: 09-26-2019 End: 09-23-2022 flash glucose scanning reader (FREESTYLE LICO 14 DAY READER) [facility] [place]ications: Type 2 diabetes mellitus without complication, with long-term current use of insulin (HCC) Use to check blood sugar 4 times daily. 1 Each 09/26/2019 09/23/2022 Discontinued Start: 09-26-2019 End: 09-23-2022 flash glucose scanning reade r (FREESTYLE LICO 14 DAY READER) [facility] [place]ications: Type 2 diabetes mellitus without complication, with long-term current use of insulin (HCC) Use to check blood sugar 4 times daily. 1 Each 0 09/26/2019 09/23/2022 Discontinued Start: 09-26-2019 flash glucose scanning reader (FREESTYLE LICO 14 DAY READER) [facility] [place]ications: Type 2 diabetes mellitus without complication, with long-term current use of insulin (HCC) Use to check blood sugar 4 times daily. 1 Each 0 09/26/2019 Active Comment on above: Use to check blood s ugar 4 times daily. flash glucose sensor (FREESTYLE LICO 14 DAY SENSOR) kit (20 sources) Start: 09-28-2022 End: 06-19-2024 flash glucose sensor (FREESTYLE LICO 14 DAY SENSOR) kit Indications: Type 2 diabetes mellitus without complication, with long-term current use of insulin (HCC) Use to scan blood sugars as directed. Replace every 2 weeks. 2 Kit 5 09/28/2022 06/19/2024 Discontinued Start: 09-28-2022 flash glucose sensor (FREESTYLE LICO 14 DAY SENSOR) kit Indications: Type 2 diabetes mellitus without complication, with long-term current use of insulin (HCC) Use to scan blood sugars as directed. Replace every 2 weeks. 2 Kit 5 09/28/2022 Active Start: 04-08-2022 End: 09-26-2022 flash glucose sensor (FREEST YLE LICO 14 DAY SENSOR) kit Indications: Type 2 diabetes mellitus without complication, with long-term current use of insulin (HCC) Use to scan blood sugars as directed. Replace every 2 weeks. 2 Kit 5 04/08/2022 09/26/2022 Discontinued Start: 04-08-2022 flash glucose sensor (FREESTYLE LICO 14 DAY SENSOR) kit Indications: Type 2 diabetes mellitus without complication, with long-term current use of insulin (HCC) Use to scan blood sugars as directed. Replace every 2 weeks. 2 Kit 5 04/08/2022 Active Start: 09-30-2021 End: 04-08-2022 flash glucose sensor (FREEST YLE LICO 14 DAY SENSOR) kit Indications: Type 2 diabetes mellitus without complication, with long-term current use of insulin (HCC) Use to scan blood sugars as directed. Replace every 2 weeks. 2 Kit 5 09/30/2021 04/08/2022 Discontinued Start: 09-30-2021 flash glucose sensor (FREESTYLE LICO 14 DAY SENSOR) kit Indications: Type 2 diabetes mellitus without complication, with long-term current use of insulin (HCC) Use to scan blood sugars as directed. Replace every 2 weeks. 2 Kit 5 09/30/2021 Active Start: 09-17-2021 End: 09-30-2021 flash glucose sensor (FREEST YLE LICO 14 DAY SENSOR) kit Indications: Type 2 diabetes mellitus without complication, with long-term current use of insulin (HCC) Use to scan blood sugars as directed. Replace every 2 weeks. 2 Kit 5 09/17/2021 09/30/2021 Discontinued Start: 09-17-2021 flash glucose sensor (FREESTYLE LICO 14 DAY SENSOR) kit Indications: Type 2 diabetes mellitus without complication, with long-term current use of insulin (HCC) Use to scan blood sugars as directed. Replace every 2 weeks. 2 Kit 5 09/17/2021 Active Start: 03-16-2021 End: 09-17-2021 flash glucose sensor (FREEST YLE LICO 14 DAY SENSOR) kit Indications: Type 2 diabetes mellitus without complication, with long-term current use of insulin (HCC) Use to scan blood sugars as directed. Replace every 2 weeks. 2 Kit 5 03/16/2021 09/17/2021 Discontinued Start: 03-16-2021 flash glucose sensor (FREESTYLE LICO 14 DAY SENSOR) kit Indications: Type 2 diabetes mellitus without complication, with long-term current use of insulin (HCC) Use to scan blood sugars as directed. Replace every 2 weeks. 2 Kit 5 03/16/2021 Active Comment on above: Use to scan blood richard gars as directed. Replace every 2 weeks. FLUoxetine 20 mg oral capsule (13 sources) Serotonin Reuptake Inhibitor Start: 8 End: take 2 capsules by mouth at bedtime Fluoxetine 20 MG capsule Discontinued 40 mg PO AT BEDTIME January 11, 2018 12:00am January 21, 2025 12:04pm DEPRESSION Start: 01-11-2018 take 40 mg by mouth at bedtime Fluoxetine Active 40 MG PO AT BEDTIME January 10, 2018 11:00pm Start: 10-10-2016 take 1 capsule by [facility] once daily FLUoxetine (PROZAC) 40 MG capsule Take 40 mg by mouth daily 0 10/10/2016 Active Food Supplemt, Lactose-Reduced (6 sources) Start: 06-28-2019 End: 02-08-2023 take 1 mL by mouth twice daily Food Supplemt, Lactose-Reduced Discontinued 237 ML PO TWICE A DAY June 28, 2019 12:00am February 08, 2023 4:05pm Start: 06-28-2019 End: 02-08-2023 take 1 mL by mouth twice daily Food Supplemt, Lactose-Reduced Discontinued 237 ML PO TWICE A DAY June 28, 2019 1:00am February 08, 2023 5:05pm Start: 06-28-2019 take 1 mL by mouth t wice daily Food Supplemt, Lactose-Reduced Active 237 ML PO TWICE A DAY June 28, 2019 1:00am Food Supplemt, Lactose-Reduced 237 ML liquid (3 sources) Start: 06-28-2019 End: 02-08-2023 take 1 mL by mouth twice daily Food Supplemt, Lactose-Reduced 237 ML liquid Discontinued 237 mL PO TWICE A DAY June 28, 2019 1:00am February 08, 2023 5:05pm 120 actuat formoterol fumarate 0.005 mg/actuat / mometasone furoate 0.2 mg/actuat metered dose inhaler (9 sources) Corticosteroid , beta2-Adrenerg ic Agonist Start: 02-17-2018 End: 01-21-2025 Mometasone-Formoterol 8.8 GM HFA aerosol inhaler Discontinued 2 NMA IH TWICE A DAY February 17, 2018 12:00am January 21, 2025 12:05pm BREATHING Start: 02-17-2018 take 1 puff(s) by in halation twice daily Mometasone-Formoterol Active 2 PUFF IH TWICE A DAY February 17, 2018 12:00am take 2 puff(s) by in halation every twelve hours mometasone-formoterol (DULERA) 200-5 MCG/ACT inhaler Inhale 2 puffs into the lungs every 12 hours 0 Active gabapentin 100 mg oral capsule (20 sources) Anti-epileptic Agent Start: 02-10-2023 End: 06-19-2024 take 1 capsule by mouth twice daily gabapentin (NEURONTIN) 100 mg capsule Indications: Fibromyalgia , Seizure disorder (HCC) TAKE 1 CAPSULE BY MOUTH TWICE A DAY 60 capsule 5 02/10/2023 06/19/2024 Discontinued Start: 10-22-2021 End: 10-22-2021 take 3 capsules by mouth every 30 days at bedtime as needed gabapentin (NEURONTIN) 100 mg capsule Indications: Fibromyalgia , Seizure disorder (HCC) Take 3 capsules by mouth at bedtime as needed for up to 30 days. 0 10/22/2021 10/22/2021 Discontinued Start: 10-07-2021 End: 10-28-2022 take 1 capsule by mouth twice daily gabapentin (NEURONTIN) 100 mg capsule Indications: Fibromyalgia , Seizure disorder (HCC) TAKE 1 CAPSULE BY MOUTH TWICE A DAY 60 capsule 5 07/28/2022 10/28/2022 Discontinued (Course of therapy completed) Start: 05-26-2021 End: 09-30-2021 take 1 capsule by mouth twice daily gabapentin (NEURONTIN) 100 mg capsule Take 1 capsule by mouth twice daily for 30 days. 60 capsule 1 05/26/2021 09/30/2021 Discontinued Start: 02-10-2021 End: 04-26-2021 take 1 capsule by mouth twice daily gabapentin (NEURONTIN) 100 mg capsule Take 1 capsule by mouth twice daily for 30 days. 60 capsule 1 02/10/2021 04/26/2021 Discontinued Start: 01-01-2020 take 100 mg by mouth once brant y 100 mg, Oral, DAILY, First dose on Mon01/01/20 at 1015 Start: 12-30-2019 End: 12-30-2019 gabapentin (NEURONTIN) capsu le 300 mg Start: 11-27-2018 End: 01-21-2025 take 1 capsule by mouth three times daily Gabapentin 100 MG capsule Discontinued 100 mg PO THREE TIMES A DAY 42 0 November 27, 2018 12:00am January 21, 2025 12:04pm Comment on above: Take 1 capsule by mo [facility] twice daily for 30 days. Take 1 capsule by mo [facility] twice daily. 100 mg morning , 200 mg at bedtime Take 3 capsules by [facility] at bedtime as needed for up to 30 days. TAKE 1 CAPSULE BY MO [facility] TWICE A DAY Take 1 capsule by mo [facility] twice daily for 90 days. TAKE 1 CAPSULE BY MOUTH TWICE A DAY 1 ml galcanezumab-gnlm 120 mg/ml prefilled syringe (20 sources) Start: 02-08-2023 End: 01-21-2025 Galcanezumab-Gnlm (Emgality Syringe) 120 mg/mL syringe Discontinued 120 mg SC EVERY MONTH February 08, 2023 12:00am January 21, 2025 12:04pm migraines Start: 05-12-2022 End: 06-27-2023 inject 1 mL by subcutaneous injection every month galcanezumab-gnlm (EMGALITY PEN) 120 mg/mL pen Inject 1 mL subcutaneously once every month. Do not shake. 1 mL 2 03/29/2023 06/27/2023 Active Start: 08-10-2020 End: 05-09-2022 inject 1 mL by subcutaneous injection every month galcanezumab-gnlm (EMGALITY PEN) 120 mg/mL pen Indications: Other migraine without status migrainosus, not intractable Inject 1 mL subcutaneously once every month. Do not shake. 1 Pen 11 08/24/2020 05/25/2021 Discontinued Comment on above: Inject 1 mL subcutan eously once every month. Do not shake. glipiZIDE 5 mg oral tablet (9 sources) Sulfonylurea Start: End: take 1 tablet by mouth once daily Glipizide 5 MG tablet Discontinued 5 mg PO DAILY@0730 December 31, 2013 12:00am September 12, 2014 11:40am 500 ml glucose 50 mg/ml / potassium chloride 0.02 meq/ml / sodium chloride 4.5 mg/ml injection (1 source) Start: End: Intravenous, at 75 mL/hr, CONTINUOUS, Starting Mon12/30/19 at 1845, Post-op 1 ml hydrALAZINE hydrochloride 20 mg/ml injection (1 source) Arteriolar Vasodilator Start: End: hydrALAZINE (APRESOLINE) injection 5 mg hydrocortisone 25 mg/ml topical cream (20 sources) Corticosteroid End: hydrocortisone 2.5 % cream Apply to affected area. 09/30/2021 Discontinued Comment on above: Apply to affected ar ea. 1 ml HYDROmorphone hydrochloride 1 mg/ml cartridge (1 source) Opioid Agonist Start: End: HYDROmorphone (DILAUDID) injection 0.5 mg indomethacin 25 mg oral capsule (14 sources) Nonsteroidal Anti-inflammatory Drug Start: End: take 2 capsules by mouth three times daily at mealtime Indomethacin 25 MG capsule Discontinued 25 mg PO 3 TIMES DAILY WITH MEALS June 28, 2019 1:00am January 21, 2025 12:04pm On Hold: Check with PCP as patient is on 2 NSAIDS Start: 04-24-2017 take 25 mg by mouth three times daily at mealtime Indomethacin Active 25 MG PO 3 TIMES DAILY WITH MEALS June 28, 2019 12:00am 3 ml insulin degludec 200 unt/ml pen injector (20 sources) Insulin Analog Start: 04-03-2023 End: 06-19-2024 insulin degludec (TRESIBA FLEXTOUCH U-200) 200 unit/mL (3 mL) injection Indications: Type 2 diabetes mellitus with diabetic neuropathy, with long-term current use of insulin (HCC) Inject 40 Units subcutaneously every morning. 9 mL 5 04/03/2023 06/19/2024 Discontinued Start: 03-10-2023 End: 04-03-2023 insulin degludec (TRESIBA FLEXTOUCH U-200) 200 unit/mL (3 mL) injection Indications: Type 2 diabetes mellitus with diabetic neuropathy, with long-term current use of insulin (HCC) Inject 35 Units subcutaneously every morning. 15 mL 1 03/10/2023 04/03/2023 Discontinued Start: 01-30-2023 insulin deglud ec (TRESIBA FLEXTOUCH U-200) 200 unit/mL (3 mL) injection Indications: Type 2 diabetes mellitus with diabetic neuropathy, with long-term current use of insulin (HCC) Inject 39 Units subcutaneously every morning. 0 01/30/2023 Active Start: 10-28-2022 End: 01-30-2023 insulin degludec (TRESIBA FLEXTOUCH U-200) 200 unit/mL (3 mL) injection Inject 37 Units subcutaneously every morning. 7 Each 3 10/28/2022 01/30/2023 Discontinued Start: 02-01-2021 End: 10-28-2022 insulin degludec (TRESIBA FLEXTOUCH U-200) 200 unit/mL (3 mL) injection Inject 34 Units subcutaneously every morning. 7 Pen 3 02/01/2021 09/30/2021 Discontinued Start: 02-27-2018 Insulin Deglud ec 200 UNIT/ML SOPN Inject 28 Units into the skin every morning (before breakfast) 0 02/27/2018 Active Start: 02-27-2018 Insulin Deglud ec 200 UNIT/ML SOPN Inject 25 Units into the skin every morning (before breakfast) 0 02/27/2018 Active Start: 09-10-2017 End: 01-21-2025 Insulin Degludec 200 UNIT/ML insulin pen Discontinued 39 U SQ WITH BREAKFAST September 10, 2017 12:00am January 21, 2025 12:05pm DIABETES Start: 09-10-2017 inject 39 [IU] by richard bcutaneous injection at breakfast Insulin Degludec Active 39 UNIT SQ WITH BREAKFAST September 09, 2017 11:00pm Start: 09-10-2017 inject 39 [IU] by richard bcutaneous injection at breakfast Insulin Degludec Active 39 UNIT SQ WITH BREAKFAST September 10, 2017 12:00am Start: 09-10-2017 inject 25 [IU] by richard bcutaneous injection at breakfast Insulin Degludec Active 25 UNIT SQ WITH BREAKFAST September 10, 2017 12:00am Start: 09-10-2017 inject 25 [IU] by richard bcutaneous injection at breakfast Insulin Degludec Active 25 UNIT SQ WITH BREAKFAST September 10, 2017 12:00am Comment on above: Inject 34 Units subc utaneously every morning. Inject 37 Units subc utaneously every morning. Inject 39 Units subc utaneously every morning. Inject 35 Units subc utaneously every morning. Inject 40 Units subc utaneously every morning. Insulin Degludec 200 UNIT/ML insulin pen (1 source) Start: 09-10-2017 End: 01-21-2025 Insulin Degludec 200 UNIT/ML insulin pen Discontinued 39 U SQ WITH BREAKFAST September 10, 2017 12:00am January 21, 2025 12:05pm DIABETES 3 ml insulin detemir 100 unt/ml pen injector (9 sources) Insulin Analog Start: 09-12-2014 End: 10-11-2014 Insulin Detemir U-100 (Levemir Flextouch U100 Insulin) 100 UNITS/ML Insuln.Pen Discontinued 200 U SC EVERY MORNING 30 6 September 12, 2014 12:00am October 11, 2014 7:32pm Administer 100 units in each of 2 different sites to a total of 200 units every morning Start: 09-12-2014 End: 10-11-2014 Insulin Detemir U-100 (Levem ir Flextouch U-100 Insuln) 100 UNITS/ML Insuln.Pen Discontinued 200 UNITS SC EVERY MORNING September 12, 2014 12:00am October 11, 2014 7:32pm Administer 100 units in each of 2 different sites to a total of 200 units every morning 3 ml insulin aspart, human 100 unt/ml pen injector (20 sources) Insulin Analog Start: 02-09-2023 End: 01-21-2025 Insulin Aspart U-100 100 UNITS/ML insulin pen Discontinued 10 U SC 3 TIMES DAILY WITH MEALS 15 2 February 09, 2023 4:55pm January 21, 2025 12:05pm DIABETES Hold if glucose less than 130 mg/dl Start: 02-09-2023 Insulin Aspart U-100 Active 10 UNIT SC 3 TIMES DAILY WITH MEALS February 09, 2023 3:55pm Hold if glucose less than 130 mg/dl Start: 10-28-2022 End: 06-19-2024 inject 8 [IU] by subcutaneous injection three times daily insulin aspart U-100 (NOVOLOG FLEXPEN U-100 INSULIN) 100 unit/mL (3 mL) Indications: Type 2 diabetes mellitus with diabetic neuropathy, with long-term current use of insulin (HCC) Inject 8 Units subcutaneously three times a day. 15 mL 1 03/10/2023 06/19/2024 Discontinued Start: 11-12-2015 End: 02-09-2023 inject 6 [IU] by subcutaneous injection three times daily at mealtime Insulin Aspart U-100 100 UNITS/ML insulin pen Discontinued 6 U subcut 3 TIMES DAILY WITH MEALS November 12, 2015 12:00am February 09, 2023 4:55pm DIABETES Start: 11-12-2015 End: 02-09-2023 inject 6 [IU] by subcutaneous injection three times daily insulin aspart U-100 (NOVOLOG FLEXPEN U-100 INSULIN) 100 unit/mL (3 mL) Indications: Type 2 diabetes mellitus with diabetic neuropathy, with long-term current use of insulin (HCC) Inject 6 Units subcutaneously three times daily. Hold as of 04/13/2020. 5 Pen 3 11/09/2020 05/25/2021 Discontinued insulin aspart ( NOVOLOG) 100 UNIT/ML injection vial Inject 6 Units into the skin 3 times daily (before meals) 0 Active Comment on above: Inject 6 Units subcu taneously three times daily. Hold as of 04/13/2020. Inject 6 Units subcu taneously three times daily. Inject 8 Units subcu taneously three times daily. Inject 8 Units subcu taneously three times a day. 4 ml labetalol hydrochloride 5 mg/ml cartridge (1 source) beta-Adrenergic Deb Start: 12-30-19 End: 12-30-19 labetalol (NORMODYNE;TRANDATE ) injection 5 mg meloxicam 15 mg oral tablet (13 sources) Nonsteroidal Anti-inflammatory Drug Start: 06-28-19 End: 01-22-20 take 1 tablet by mouth once daily Meloxicam 15 MG tablet Discontinued 15 mg PO DAILY June 28, 2019 1:00am January 21, 2025 12:05pm metFORMIN hydrochloride 1000 mg oral tablet (20 sources) Biguanide Start: 11-16-19 End: 06-19-19 take 2 tablets by mouth every twenty-four hours in the morning metFORMIN ER (GLUCOPHAGE XR) 500 mg 24 hr tablet Take 2 tablets by mouth in the morning and 2 tablets in the evening. LACTOSE FREE 120 tablet 2 03/13/2023 06/19/2024 Discontinued Start: 05-12-2022 End: 10-19-2022 take 2 tablets by mouth every twenty-four hours in the morning metFORMIN ER (GLUCOPHAGE XR) 500 mg 24 hr tablet Take 2 tablets by mouth in the morning and 2 tablets in the evening. LACTOSE FREE 120 tablet 0 10/20/2022 Active Start: 02-17-2021 End: 05-09-2022 take 2 tablets by mouth every twenty-four hours in the morning metFORMIN ER (GLUCOPHAGE XR) 500 mg 24 hr tablet Take 2 tablets by mouth in the morning and 2 tablets in the evening. LACTOSE FREE 120 tablet 5 09/30/2021 05/09/2022 Discontinued Start: 01-01-2020 take 1000 mg by mout h twice daily at mealtime 1,000 mg, Oral, 2 TIMES DAILY WITH MEALS, First dose on Mon01/01/20 at 1015 Start: 04-03-2018 take 0.5 tablet by m outh twice daily at mealtime metFORMIN (GLUCOPHAGE) 500 MG tablet Take 0.5 tablets by mouth 2 times daily (with meals) 60 tablet 3 04/03/2018 Active Start: 10-22-2014 End: 01-27-2025 take 1 tablet by mouth twice daily at mealtime Metformin 1,000 MG tablet Discontinued 1000 mg PO TWICE DAILY WITH MEALS October 22, 2014 12:00am January 21, 2025 12:05pm DIABETES Start: 12-31-2013 End: 09-12-2014 take 1 tablet by mouth twice daily Metformin 1,000 MG tablet Discontinued 1000 mg PO TWICE A DAY December 31, 2013 12:00am September 12, 2014 11:40am Comment on above: Take 2 tablets by mo uth in the morning and 2 tablets in the evening. LACTOSE FREE Mometasone-Formote rol 8.8 GM HFA aerosol inhaler (1 source) Start: 8 End: 5 Mometasone-Formoterol 8.8 GM HFA aerosol inhaler Discontinued 2 NMA IH TWICE A DAY February 17, 2018 12:00am January 21, 2025 12:05pm BREATHING naproxen 500 mg oral tablet (20 sources) Nonsteroidal Anti-inflammatory Drug Start: 1 End: 3 take 1 tablet by mouth twice daily Naproxen 500 mg tablet Discontinued 500 mg PO TWICE A DAY 14 0 December 18, 2021 12:00am February 08, 2023 5:09pm take 2 tablets by mo [facility] twice daily as needed Naproxen Sodium (ALEVE PO) Take 2 tablet s by mouth 2 times daily as needed 0 Active Comment on above: Take 1 tablet by mitul twice daily as needed (for pain/inflammation). Take with food. nystatin 100 unt/mg topical powder (20 sources) Polyene Antifungal Start: 02-10-2021 End: 09-30-2021 nystatin (MYCOSTATIN) powder Indications: Intertrigo Apply 1 application to affected area four times daily. 60 g 3 06/16/2021 09/30/2021 Discontinued Start: 01-11-2018 End: 01-21-2025 Nystatin 1 APPLIC ointment D iscontinued 1 NMA topical 4 TIMES DAILY as needed for GROIN January 11, 2018 12:00am January 21, 2025 12:05pm nystatin (MYCOST ATIN) [id number] UNIT/GM powder Apply topically 4 times daily Apply topically 4 times daily. 0 Active Comment on above: Apply 1 application to affected area four times daily. Nystatin POWD (2 sources) End: 12-25-2019 Nystatin POWD Apply 1 Dose topically 2 times daily as needed 0 12/25/2019 Discontinued (DUPLICATE) Nystatin POWD Ta ke by mouth 0 Active omeprazole 20 mg delayed release oral capsule (20 sources) Proton Pump Inhibitor Start: 06-28-2019 End: 01-21-2025 take 1 capsule by mouth twice daily Omeprazole 20 MG capsule,delayed release(DR/EC) Discontinued 20 mg PO TWICE A DAY June 28, 2019 1:00am January 21, 2025 12:05pm Start: 02-29-2016 End: 09-30-2021 take 1 capsule by mouth once daily omeprazole (PRILOSEC) 20 mg capsule Take 20 mg by mouth once daily. 02/29/2016 09/30/2021 Discontinued Comment on above: Take 20 mg by mouth once daily. ondansetron 4 mg disintegrating oral tablet (20 sources) Serotonin-3 Receptor Antagonist Start: 12-19-19 End: 01-22-20 take 1 tablet by mouth every six hours as needed for nausea and vomiting Ondansetron 4 mg tablet,disintegratin g Discontinued 4 mg PO EVERY 6 HOURS as needed for nausea and vomiting 14 0 December 18, 2021 12:00am January 21, 2025 12:05pm to take as needed if doxy causes nausea which was listed. Start: 03-09-2020 End: 01-21-2025 take 1 tablet by mouth every eight hours as needed for nausea Ondansetron 4 MG tablet Discontinued 4 mg PO EVERY 8 HOURS NEEDED as needed for Nausea March 09, 2020 12:00am January 21, 2025 12:05pm Start: 03-11-2019 End: 09-30-2021 take 1 tablet by mouth every six hours as needed ondansetron orally disintegrating (ZOFRAN ODT) 4 mg disintegrating tablet Take 1 tablet by mouth every 6 hours as needed for nausea/vomiting. 20 tablet 02/10/2021 06/05/2021 Discontinued take 1 tablet by mitul th every eight hours as needed for nausea ondansetron (ZOFRAN) 4 MG tablet Take 4 mg by mouth every 8 hours as needed for Nausea or Vomiting 0 Active Comment on above: Take 1 tablet by mitul th every 6 hours as needed for nausea/vomiting. 12 hr orphenadrine citrate 100 mg extended release oral tablet (9 sources) Muscle Relaxant Start: 07-14-19 End: 01-22-20 take 1 tablet by mouth twice daily as needed for muscle spasms Orphenadrine Citrate 100 mg tablet extended release Discontinued 100 mg PO TWICE A DAY as needed for spasm 7 July 14, 2021 1:19pm January 21, 2025 12:05pm perflutren lipid microspheres 1.3 mL in NaCl (PF) 0.9% 10 mL injection (DEFINITY) (6 sources) Start: 12-24-19 End: 01-26-20 perflutren lipid microspheres 1.3 mL in NaCl (PF) 0.9% 10 mL injection (DEFINITY) Start: 12-23-2021 End: 03-24-2023 perflutren lipid microsphere s 1.3 mL in NaCl (PF) 0.9% 10 mL injection (DEFINITY) predniSONE 20 mg oral tablet (9 sources) Start: 03-11-2019 End: 04-22-2019 take 2 tablets by mouth once daily at mealtime Prednisone 20 MG tablet Discontinued 40 mg PO DAILY March 11, 2019 12:00am April 22, 2019 9:46am With food Start: 03-11-2019 End: 04-22-2019 take 40 mg by mouth once daily at mealtime Prednisone Discontinued 40 MG PO DAILY March 10, 2019 11:00pm April 22, 2019 8:46am With food prochlorperazine 10 mg oral tablet (13 sources) Phenothiazine Start: 01-11-2018 End: 01-21-2025 take 1 tablet by mouth every eight hours as needed Prochlorperazine Maleate 10 MG tablet Discontinued 10 mg PO EVERY 8 HOURS NEEDED as needed for Migraine Symptoms January 11, 2018 12:00am January 21, 2025 12:05pm promethazine hydrochloride 25 mg oral tablet (20 sources) Phenothiazine Start: 12-30-2019 promethazine (PHENERGAN) tablet 12.5 mg Start: 04-18-2019 End: 02-08-2023 take 1 tablet by mouth every six hours as needed for nausea Promethazine 25 MG tablet Discontinued 25 mg PO EVERY 6 HOURS NEEDED as needed for Nausea 10 0 April 18, 2019 1:00am February 08, 2023 5:17pm Comment on above: Take 1 tablet by mitul every 6 hours as needed. regadenoson (LEXISCAN) injection 0.4 mg (1 source) Start: 08-02-2019 End: 08-02-2019 regadenoson (LEXISCAN) injection 0.4 mg riboflavin 100 mg oral tablet (20 sources) Start: 03-23-2021 End: 09-30-2021 take 4 tablets by mouth once daily riboflavin, vitamin B2, (VITAMIN B-2) 100 mg tab Take 4 tablets by mouth once daily. 120 tablet 11 03/23/2021 09/30/2021 Discontinued Start: 03-19-2021 End: 09-30-2021 take 1 tablet by mouth once daily riboflavin, vitamin B2, 400 mg tab Indications: Other migraine without status migrainosus, not intractable Take 1 tablet by mouth once daily. 30 tablet 3 03/19/2021 09/30/2021 Discontinued Comment on above: Take 1 tablet by mitul th once daily. Take 4 tablets by mo uth once daily. risperiDONE 2 mg oral tablet (20 sources) Atypical Antipsychotic Start: 01-12-20 End: 01-22-20 take 1 tablet by mouth at breakfast Risperidone 1 MG tablet Discontinued 1 mg PO WITH BREAKFAST January 11, 2018 12:00am January 21, 2025 12:05pm SCHIZOPHRENIA Start: 01-11-2018 End: 01-21-2025 take 1 tablet by mouth at bedtime Risperidone 2 MG tablet Discontinued 2 mg PO AT BEDTIME January 11, 2018 12:00am January 21, 2025 12:05pm SHIZOPHRENIA Start: 10-10-2016 End: 09-30-2021 risperiDONE (RISPERDAL) 1 mg tablet take 1 tablet every morning and 2 tablets at bedtime 2 10/10/2016 09/30/2021 Discontinued Comment on above: take 1 tablet every morning and 2 tablets at bedtime Semaglutide (5 sources) Start: 02-08-2023 End: 01-21-2025 Semaglutide (Ozempic) 0.25 mg or 0.5 mg (2 mg/3 mL) pen injector Discontinued 0.25 mg SC EVERY WEEK February 08, 2023 12:00am January 21, 2025 12:05pm diabetes for 4 weeks Start: 02-08-2023 Semaglutide (O zempic) 0.25 mg or 0.5 mg (2 mg/3 mL) pen injector Active 0.25 MG SC EVERY WEEK February 07, 2023 11:00pm for 4 weeks Start: 02-08-2023 Semaglutide (O zempic) 0.25 mg or 0.5 mg (2 mg/3 mL) pen injector Active 0.25 MG SC EVERY WEEK February 08, 2023 12:00am for 4 weeks semaglutide (OZEMPIC) 0.25 mg or 0.5 mg (2 mg/3 mL) pen (10 sources) Start: 02-27-2023 End: 02-10-2023 inject 0.5 mg by subcutaneous injection every week semaglutide (OZEMPIC) 0.25 mg or 0.5 mg (2 mg/3 mL) pen Indications: Type 2 diabetes mellitus with diabetic neuropathy, with long-term current use of insulin (HCC) Inject 0.5 mg subcutaneously one time a week. 3 mL 1 02/27/2023 02/10/2023 Discontinued (Cost of medication) Start: 02-27-2023 End: 04-28-2023 inject 0.5 mg by subcutaneous injection every week semaglutide (OZEMPIC) 0.25 mg or 0.5 mg (2 mg/3 mL) pen Indications: Type 2 diabetes mellitus with diabetic neuropathy, with long-term current use of insulin (HCC) Inject 0.5 mg subcutaneously one time a week. 3 mL 1 02/27/2023 04/28/2023 Active Start: 01-30-2023 End: 02-10-2023 semaglutide (OZEMPIC) 0.25 m g or 0.5 mg (2 mg/3 mL) pen Indications: Type 2 diabetes mellitus with diabetic neuropathy, with long-term current use of insulin (HCC) Inject 0.25 mg subcutaneously one time a week. 3 mL 0 01/30/2023 02/10/2023 Discontinued (Cost of medication) Start: 01-30-2023 End: 03-01-2023 semaglutide (OZEMPIC) 0.25 m g or 0.5 mg (2 mg/3 mL) pen Indications: Type 2 diabetes mellitus with diabetic neuropathy, with long-term current use of insulin (HCC) Inject 0.25 mg subcutaneously one time a week. 3 mL 0 01/30/2023 03/01/2023 Active Comment on above: Inject 0.25 mg subcu taneously one time a week. Inject 0.5 mg subcut aneously one time a week. 125 ml sodium chloride 9 mg/ml prefilled syringe (8 sources) Start: 12-23-2021 End: 03-24-2023 sodium chloride 0.9 % (flush) 10 mL (BD POSIFLUSH) Start: 12-30-2019 10 mL, Intrave nous, EVERY 12 HOURS SCHEDULED (2 times per day), First dose on Mon12/30/19 at 2100, Post-op Start: 12-30-2019 take 10 mL intravenous route o nce 10 mL, Intravenous, PRN, Line Care, Starting Mon12/30/19 at 1822 After every IV line use Post-op SUMAtriptan 100 mg oral tablet (20 sources) Serotonin-1b and Serotonin-1d Receptor Agonist Start: 01-11-2018 End: 01-21-2025 take 1 tablet by mouth twice daily as needed Sumatriptan Succinate 100 MG tablet Discontinued 100 mg PO TWICE A DAY as needed for Migraine Symptoms June 28, 2019 1:00am January 21, 2025 12:05pm take 1 tablet by mouth once as n eeded SUMAtriptan (IMITREX) 100 MG tablet Take 100 mg by mouth once as needed for Migraine 0 Active Comment on above: Take by mouth as nee ded. TENS unit and electrodes cmpk (20 sources) Start: 01-25-2023 End: 06-19-2024 TENS unit and electrodes cmpk Indications: Chronic bilateral thoracic back pain , Spasm of muscle of lower back Use as instructed. He is intolerant to many meds due to Lactose intolerance. Based on muscle spasm and deconditiong, TENS is a good option 1 Each 01/25/2023 06/19/2024 Discontinued Start: 01-25-2023 TENS unit and electrodes cmpk Indications: Chronic bilateral thoracic back pain , Spasm of muscle of lower back Use as instructed. He is intolerant to many meds due to Lactose intolerance. Based on muscle spasm and deconditiong, TENS is a good option 1 Each 01/25/2023 Active Start: 01-25-2023 TENS unit and electrodes cmpk Indications: Chronic bilateral thoracic back pain , Spasm of muscle of lower back Use as instructed. He is intolerant to many meds due to Lactose intolerance. Based on muscle spasm and deconditiong, TENS is a good option 1 Each 0 01/25/2023 Active Start: 01-24-2023 End: 01-25-2023 TENS unit and electrodes cmp k Indications: Chronic bilateral thoracic back pain , Spasm of muscle of lower back Use as instructed. He is intolerant to many meds due to Lactose intolerance. Based on muscle spasm and deconditiong, TENS is a good option 1 Each 0 01/24/2023 01/25/2023 Discontinued Start: 01-24-2023 TENS unit and electrodes cmpk Indications: Chronic bilateral thoracic back pain , Spasm of muscle of lower back Use as instructed. He is intolerant to many meds due to Lactose intolerance. Based on muscle spasm and deconditiong, TENS is a good option 1 Each 0 01/24/2023 Active Start: 08-05-2022 End: 01-23-2023 TENS unit and electrodes cmp k Indications: Chronic bilateral thoracic back pain , Spasm of muscle of lower back Use as instructed. He is intolerant to many meds due to Lactose intolerance. Based on muscle spasm and deconditiong, TENS is a good option 1 Each 0 08/05/2022 01/23/2023 Discontinued Start: 08-05-2022 TENS unit and electrodes cmpk Indications: Chronic bilateral thoracic back pain , Spasm of muscle of lower back Use as instructed. He is intolerant to many meds due to Lactose intolerance. Based on muscle spasm and deconditiong, TENS is a good option 1 Each 0 08/05/2022 Active Start: 08-05-2022 End: 08-05-2022 TENS unit and electrodes cmp k Indications: Chronic bilateral thoracic back pain , Spasm of muscle of lower back Use as instructed. He is intolerant to many meds due to Lactose intolerance. Based on muscle spasm and deconditiong, TENS is a good option 1 Each 0 08/05/2022 08/05/2022 Discontinued Start: 02-10-2021 End: 08-05-2022 TENS unit and electrodes cmp k Indications: Chronic bilateral thoracic back pain , Spasm of muscle of lower back Use as instructed. He is intolerant to many meds due to Lactose intolerance. Based on muscle spasm and deconditiong, TENS is a good option 1 Each 02/10/2021 08/05/2022 Discontinued Start: 02-10-2021 End: 08-05-2022 TENS unit and electrodes cmp k Indications: Chronic bilateral thoracic back pain , Spasm of muscle of lower back Use as instructed. He is intolerant to many meds due to Lactose intolerance. Based on muscle spasm and deconditiong, TENS is a good option 1 Each 0 02/10/2021 08/05/2022 Discontinued Start: 02-10-2021 TENS unit and electrodes cmpk Indications: Chronic bilateral thoracic back pain , Spasm of muscle of lower back Use as instructed. He is intolerant to many meds due to Lactose intolerance. Based on muscle spasm and deconditiong, TENS is a good option 1 Each 0 02/10/2021 Active Comment on above: Use as instructed. Desire saul is intolerant to many meds due to Lactose intolerance. Based on muscle spasm and deconditiong, TENS is a good option tiZANidine 4 mg oral tablet (14 sources) Central alpha-2 Adrenergic Agonist Start: 04-19-20 End: 01-22-20 take 1 tablet by mouth twice daily as needed for muscle spasms Tizanidine 4 MG tablet Discontinued 4 mg PO TWICE DAILY NEEDED as needed for Spasms April 19, 2019 1:00am January 21, 2025 12:05pm triamcinolone acetonide 0.25 mg/ml topical lotion (20 sources) Corticosteroid Start: 11-15-19 End: 10-01-19 triamcinolone (KENALOG) 0.025 % lotn Indications: Rash and nonspecific skin eruption Apply 1 application to affected area three times daily. 1 Bottle 11/14/2018 09/30/2021 Discontinued Start: 02-29-2016 End: 01-21-2025 Triamcinolone Acetonide 1 AP PLIC cream Discontinued 1 NMA topical 3 TIMES DAILY NEEDED as needed for YEAST INFECTION February 29, 2016 12:00am January 21, 2025 12:05pm triamcinolone (K ENALOG) 0.025 % LOTN lotion Apply 1 applicator topically 2 times daily 0 Active Comment on above: Apply 1 application to affected area three times daily. urea 400 mg/ml topical cream (16 sources) Start: 1 End: 2 urea (CARMOL) 40 % Apply to affected area twice daily. 198 g 11 05/26/2021 09/30/2021 Discontinued Comment on above: Apply to affected ar ea twice daily. 24 hr divalproex sodium 500 mg extended release oral tablet (20 sources) Mood Stabilizer, Anti-epileptic Agent Start: 2 End: 5 take 4 tablets by mouth once daily at bedtime divalproex ER (DEPAKOTE ER) 500 mg 24 hr tablet Indications: Nonintractable epilepsy without status epilepticus, unspecified epilepsy type (HCC) Take 4 tablets by mouth daily at bedtime. 360 tablet 3 01/06/2023 06/19/2024 Discontinued Start: 06-22-2020 End: 06-16-2021 take 3 tablets by mouth once daily at bedtime divalproex ER (DEPAKOTE ER) 500 mg 24 hr tablet Indications: Seizure disorder (HCC) Take 3 tablets by mouth daily at bedtime. 270 tablet 3 06/22/2020 06/16/2021 Discontinued Start: 01-01-2020 take 1500 mg by mout h once daily 1,500 mg, Oral, NIGHTLY, First dose on Mon01/01/20 at 2100 Start: 04-03-2018 take 10 mL by mouth every twelve hours valproate (DEPAKENE) 250 MG/5ML solution Take 10 mLs by mouth every 12 hours 1 Bottle 2 04/03/2018 Active Start: 10-22-2014 End: 01-21-2025 take 3 tablets by mouth at bedtime Divalproex 500 MG tablet,delayed release (DR/EC) Discontinued 1500 mg PO AT BEDTIME October 22, 2014 12:00am January 21, 2025 12:04pm SEIZURES Start: 10-22-2014 take 1500 mg by mout h at bedtime Divalproex Active 1500 MG PO AT BEDTIME October 21, 2014 11:00pm Divalproex Sodiu m (DEPAKOTE PO) Indications: pt takes three 500mg tabs for a total of 1500mg q HS Take 1,500 mg by mouth nightly Indications: pt takes three 500mg tabs for a total of 1500mg q HS 0 Active Comment on above: Take 4 tablets by mo uth daily at bedtime. verapamil hydrochloride 40 mg oral tablet (20 sources) Calcium Channel Deb Start: End: 2 take 1 tablet by mouth once daily verapamil (CALAN, ISOPTIN) 40 mg tablet Take 1 tablet by mouth once daily. 06/22/2020 09/30/2021 Discontinued Start: 02-24-2018 End: 01-21-2025 Verapamil 80 MG tablet Disco ntinued 40 mg PO THREE TIMES A DAY February 24, 2018 12:00am January 21, 2025 12:05pm BLOOD PRESSURE Start: 02-24-2018 take 40 mg by mouth three times daily Verapamil Active 40 MG PO THREE TIMES A DAY February 23, 2018 11:00pm take 1 tablet by mitul th three times daily verapamil (CALAN) 40 MG tablet Take 40 mg by mouth 3 times daily 0 Active Comment on above: Take 1 tablet by mitul th once daily. Problems Active Problems Problem Classification Problem Date Documented Date Episodic/Chronic Anxiety disorders (9 sources) Acute stress disorder; Translations: [Acute stress reaction] 10-08-2017 Chronic Asthma (20 sources) Reactive airway disease; Translations: [Asthma] Onset: 07-02-2013 07-20-2019 Chronic Comment on above: With severe insulin resistance Biliary tract disease (20 sources) Cholecystitis; Translations: [Cholecystitis, unspecified] 06-28-2019 Episodic Cardiac dysrhythmias (9 sources) ECG: sinus tachycardia; Translations: [Tachycardia, unspecified] 02-08-2023 Episodic Chronic obstructive pulmonary disease and bronchiectasis (7 sources) Bronchitis; Translations: [Bronchitis, not specified as acute or chronic] 08-16-2022 Episodic Coma; stupor; and brain damage (9 sources) [place] coma scale finding; Translations: [[place] coma scale score 3-8, at arrival to emergency department] 02-08-2023 Episodic Conditions associated with dizziness or vertigo (10 sources) Dizziness; Translations: [Dizziness and giddiness] Episodic Diabetes mellitus with complications (20 sources) Type 2 diabetes mellitus; Translations: [Type 2 diabetes mellitus with diabetic neuropathy, unspecified] Onset: 03-22-2016 Chronic Diabetes mellitus without complication (20 sources) Type 2 diabetes mellitus without complication; Translations: [Type 2 diabetes mellitus without complications] Onset: 08-25-2014 Resolved: 04-14-2016 Chronic Diabetes mellitus without complication (18 sources) Hyperglycemia; Translations: [Acute hyperglycemia] 04-18-2019 Episodic Disorders of lipid metabolism (20 sources) Mixed hyperlipidemia; Translations: [Mixed hyperlipidemia] Onset: 03-22-2016 03-22-2016 Chronic Disorders of teeth and jaw (4 sources) Osteomyelitis of mandible; Translations: [Acute osteomyelitis of mandible] Onset: 12-30-2019 12-30-2019 Chronic Disorders of teeth and jaw (13 sources) Abscess of mandible; Translations: [Osteomyelitis of mandible] 03-30-2018 Episodic E Codes: Fall (10 sources) Fall; Translations: [Unspecified fall, initial encounter] Episodic Epilepsy; convulsions (20 sources) Seizure disorder; Translations: [Epilepsy, unspecified, not intractable, without status epilepticus] Onset: 09-25-2014 07-20-2019 Chronic Essential hypertension (20 sources) Essential hypertension; Translations: [Essential (primary) hypertension] Onset: 08-25-2014 Resolved: 04-14-2016 Chronic Fluid and electrolyte disorders (4 sources) Mild dehydration; Translations: [Dehydration] 05-31-2023 Episodic Headache; including migraine (13 sources) Migraine; Translations: [Other migraine, not intractable, without status migrainosus] Onset: 06-19-2024 Chronic Infective arthritis and osteomyelitis (except that caused by tuberculosis or sexually transmitted disease) (2 sources) Osteomyelitis; Translations: [Osteomyelitis (HCC)] Onset: 12-31-2019 12-31-2019 Chronic Inflammatory conditions of male genital organs (9 sources) Balanitis; Translations: [Balanitis] 04-18-2019 Chronic Inflammatory conditions of male genital organs (9 sources) Epididymitis; Translations: [Epididymitis] 12-26-2021 Episodic Lymphadenitis (1 source) Lymphadenopathy; Translations: [Generalized enlarged lymph nodes] 04-14-2021 Episodic Miscellaneous mental health disorders (1 source) Psychophysiologic insomnia; Translations: [Psychophysiologic insomnia] 01-06-2023 Chronic Mood disorders (9 sources) Depressive disorder; Translations: [Depression] 05-06-2019 Chronic Nausea and vomiting (18 sources) Nausea and vomiting; Translations: [Nausea with vomiting, unspecified] 04-19-2019 Episodic Nonspecific chest pain (20 sources) Chest pain; Translations: [Other chest pain] Onset: 07-20-2019 07-20-2019 Episodic Nutritional deficiencies (20 sources) Vitamin D deficiency; Translations: [Vitamin D deficiency, unspecified] Onset: 11-29-2012 11-29-2012 Chronic Osteoarthritis (20 sources) Disorder of ankle joint; Translations: [Primary osteoarthritis, unspecified ankle and foot] Onset: 08-31-2021 Chronic Other congenital anomalies (20 sources) Tarsal coalitions; 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] Onset: 06-17-2014 05-31-2021 Chronic Other connective tissue disease (1 source) Weakness of left leg; Translations: [Other symptoms and signs involving the musculoskeletal system] Episodic Other connective tissue disease (9 sources) Cramp in lower limb; Translations: [Cramp and spasm] 04-18-2019 Episodic Other connective tissue disease (13 sources) Pain in lower limb; Translations: [Pain in leg, unspecified] 07-22-2021 Episodic Other connective tissue disease (4 sources) Rhabdomyolysis; Translations: [Rhabdomyolysis] 05-31-2023 Episodic Other connective tissue disease (3 sources) Pain in finger; Translations: [Pain in unspecified finger(s)] 10-30-2023 Episodic Other infections (1 source) Unspecified infectious disease; Translations: [Unspecified infectious disease] Onset: 02-24-2018 Episodic Other injuries and conditions due to external causes (1 source) Scratch gonzalez; Translations: [Other injury of unspecified body region, initial encounter] Episodic Other lower respiratory disease (9 sources) Dyspnea; Translations: [Shortness of breath] 05-06-2019 Episodic Other lower respiratory disease (9 sources) H/O: asthma; Translations: [Personal history of other diseases of the respiratory system] 07-22-2021 Episodic Other lower respiratory disease (7 sources) Cough; Translations: [Cough] 08-16-2022 Episodic Other nervous system disorders (12 sources) Paresthesia; Translations: [Paresthesia of skin] 04-23-2020 Episodic Other nervous system disorders (3 sources) Paresthesia of hand ; Translations: [Anesthesia of skin] 01-21-2025 Episodic Other nervous system disorders (3 sources) Paresthesia of foot ; Translations: [Anesthesia of skin] 01-21-2025 Episodic Other nervous system disorders (1 source) Paresthesia of skin; Translations: [Paresthesia of skin] Onset: 01-26-2025 Episodic Other non-traumatic joint disorders (20 sources) Pain in right knee; Translations: [Pain in joint, lower leg] Onset: 06-14-2016 06-14-2016 Episodic Other non-traumatic joint disorders (2 sources) Ankle pain; Translations: [Pain in right ankle and joints of right foot] Episodic Other nutritional; endocrine; and metabolic disorders (20 sources) Obesity; Translations: [Other obesity due to excess calories] Onset: 07-02-2013 Chronic Other nutritional; endocrine; and metabolic disorders (20 sources) Obese class II; Translations: [Obesity, unspecified] Onset: 09-04-2021 2 Chronic Other nutritional; endocrine; and metabolic disorders (20 sources) Body mass index 30+ - obesity; Translations: [Body mass index (BMI) 36.0-36.9, adult] Onset: 10-22-2021 Chronic Other nutritional; endocrine; and metabolic disorders (9 sources) Severe obesity; Translations: [Morbid (severe) obesity due to excess calories] 03-10-2021 Chronic Other nutritional; endocrine; and metabolic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 499.0042 #### [facility] [address] [place], [address] Cholesterol in HDL [Mass/Vol] 58 mg/dL Normal [facility] Comment on above: Result Comment: [place] onal Cholesterol Education Program (NCEP) guidelines: <40 mg/dL: Low HDL-cholesterol (major risk factor for CHD) >= 60 mg/dL: High HDL-cholesterol (negative risk factor for CHD) HDL-cholesterol is affected by a number of factors, e.g. smoking, exercise, hormones, sex and age. Performed By: #### L 499.0042 #### [facility] [address] [place], [address] Cholesterol in LDL [Mass/Vol] 68 mg/dL Normal [facility] Comment on above: Result Comment: Bord nsqndh=737-716 mg/dL Higher Weeu=423 mg/dL or greater Friedwald Equation for LDL-C Performed By: #### L 499.0042 #### [facility] [address] [place], [place], [id number] Cholesterol in VLDL [Mass/Vol] 22 mg/dL Normal 5-40 [facility] Comment on above: Performed By: #### L 499.0042 #### [facility] [address] [place], [place], [id number] Triglyceride [Mass/Vol] 111 mg/dL Normal [facility] Comment on above: Result Comment: The drugs N-Acetylcysteine and Metamizole may falsely depress this assay. Normal range: <150 mg/dL Borderline High: 150-199 mg/dL High: 200-499 mg/dL Very High: >500 mg/dL Performed By: #### L 499.0042 #### [facility] [address] [place], [place], [id number] MCV (mean corpuscular volume ) determinationOrdered By: Giovani Membreno on 03-05-2025 MCV (RBC) [Entitic vol] 83.8 fL 80-94 [facility] Mean corpuscular hemoglobin (MCH) determinationOrdered By: Giovani Membreno on 03-05-2025 MCH (RBC) [Entitic mass] 27.0 pg 27.0-32.0 [facility] Mean corpuscular hemoglobin concentration (MCHC) determinationOrdered By: Giovani Membreno on 03-05-2025 MCHC (RBC) [Mass/Vol] 32.3 g/dL 32-36 [facility] Mean platelet volume determi nationOrdered By: Giovani Membreno on 03-05-2025 Platelet mean volume (Bld) [Entitic vol] 10.4 fL 6.2-12.0 [facility] Platelet countOrdered By: Bob Membreno on 03-05-2025 Platelets (Bld) [#/Vol] 278 10*3/uL 150-450 [facility] Potassium measurement (mass/ volume)Ordered By: Giovani Membreno on 03-05-2025 Potassium (Unsp spec) [Mass/Vol] 3.8 mmol/L 3.3-5.1 [facility] RBC Auto (Bld) [#/Vol]Ordere d By: Giovani Membreno on 03-05-2025 RBC (Bld) [#/Vol] 4.44 10*6/uL Low 4.6-6.2 [facility] Screening total cholesterol/ high density lipoprotein (HDL) cholesterol ratioOrdered By: Giovani Membreno on 03-05-2025 Cholesterol.total/Cho lesterol in HDL [Mass ratio] 2.55 {ratio} [facility] Serum creatinine measurement (mass/volume)Ordered By: Giovani Membreno on 03-05-2025 Creatinine [Mass/Vol] 0.87 mg/dL 0.70-1.20 [facility] Serum glucose measurement (m ass/volume)Ordered By: Giovani Membreno on 03-05-2025 Glucose [Mass/Vol] 135 mg/dL High 70-99 [facility] Serum or plasma calcium yanelis urement (mass/volume)Ordered By: Giovani Membreno on 03-05-2025 Calcium [Mass/Vol] 9.2 mg/dL 7.6-11.0 [facility] Serum or plasma cholesterol in HDL measurement (mass/volume)Ordered By: Giovani Membreno on 03-05-2025 Cholesterol in HDL [Mass/Vol] 58 mg/dL >40 [facility] Comment on above: National Cholesterol Education Program (NCEP) guidelines:<40 mg/dL: Low HDL-cholesterol (major risk factor for CHD)>= 60 mg/dL: High HDL-cholesterol (negative risk factor for CHD)HDL-cholesterol is affected by a number of factors, e.g. smoking, exercise, hormones, sex and age. Serum or plasma cholesterol measurement (mass/volume)Ordered By: Giovani Membreno on 03-05-2025 Cholesterol [Mass/Vol] 149 mg/dL <201 [facility] Comment on above: Cholesterol level, D esirable <200 mg/dLBorderline high cholesterol 200-239 mg/dLHigh cholesterol >=240 mg/dLRecommendations of the NCEP Adult Treatment Panel for the following risk-cutoff thresholds for the [place] population. Serum or plasma urea nitroge n measurement (mass/volume)Ordered By: Giovani Membreno on 03-05-2025 Urea nitrogen [Mass/Vol] 11 mg/dL 4-19 [facility] Sodium levelOrdered By: Javid dgdennis Fitzgeraldshreya on 03-05-2025 Sodium [Moles/Vol] 138 mmol/L 133-145 [facility] Stress Reporton 03-05-2025 Stress Report [facility] [address] [place] [address] MR#: [id number] Acct: [id number] Name: VICTOR HUGO ASIF Rep #: [id number] : 1985 39 From: Emanuel Capps MD Primary Care: Dr. Ranjit Azar, DO Status: DIS TERESA Referring Dr: Sex: M DEBBI Stress Test Report Pharmacologic myocardial perfusion stress test. 39-year-old man with a history of chest pain. Resting EKG demonstrates normal sinus rhythm with a rate of 80 bpm. Resting blood pressure is 136/98 mmHg. 0.4 mg of regadenoson was infused per usual protocol followed by rapid intravenous saline flush injection. Continuous EKG monitoring was performed. The maximum heart rate was 104 bpm which was 58% of max impacted heart rate the maximum workload was 1 metabolic equivalent. At rest there were no ST or T wave changes noted to suggest ischemia and at peak infusion nonspecific ST changes were noted which did not meet the criteria for ischemia. No clinical angina is noted. The final blood pressure was 146/94 mmHg. Myocardial perfusion protocol. 14.8 mCi of technetium 99m sestamibi was injected at rest. 0.4 mg of regadenoson was infused per usual protocol. At peak infusion 43.9 mCi of technetium 99m sestamibi was injected stress images were obtained stress and rest images were reconstructed and compared in the short axis vertical long and horizontal long axis. Gated images were also obtained. Perfusion SPECT analysis: Review of the stress images demonstrate normal uptake of tracer noted in all areas of the myocardium. The resting images similar demonstrated normal uptake of tracer noted in all areas of the myocardium. No areas of reversibility are noted to suggest ischemia and no previous infarct is noted. Gated SPECT analysis: The gated ejection fraction is 56%. Conclusion: Normal pharmacologic myocardial perfusion stress test. Preserved ejection fraction. 03/05/251809 Date Emanuel Capps MD CC: Dr. Giovani Membreno DO; Dr. Timothy Chao DO; Dr. Ranjit Azar DO; Dr. Hoa Haskins MD Date Dictated: 03/05/251808 Date Transcribed: 03/05/251808 Professional Skater: CO Signed Normal [facility] Triglycerides measurementOrd ered By: Giovani Membreno on 03-05-2025 Triglyceride [Mass/Vol] 111 mg/dL <199 [facility] Comment on above: The drugs N-Acetylcy steine and Metamizole may falsely depress this assay. Normal range: <150 mg/dLBorderline High: 150-199 mg/dLHigh: 200-499 mg/dLVery High: >500 mg/dL White blood cell (WBC) count Ordered By: Giovani Membreno on 03-05-2025 WBC (Bld) [#/Vol] 5.9 10*3/uL 4.4-11.0 [facility] 12 Lead EKGon 03-04-2025 12 Lead EKG [facility] [address] [place] [address] 12 Lead EKG 03/04/25 2321 MR#: [id number] Acct: [id number] Name: VICTOR HUGO ASIF Rep #: [id number] : 1985 39 From: Emanuel Capps MD Attending Dr: Dr. Hoa Haskins MD Status: DI S TERESA Ordering Dr: Giovani Membreno DO Date: 03/04/25 Location: U Sex: M AA Admitted: 03/04/25 Test Reason : ADMISSION EKG Blood Pressure : */* mmHG Vent. Rate : 73 BPM Atrial Rate : 73 BPM P-R Int : 154 ms QRS Dur : 92 ms QT Int : 384 ms P-R-T Axes : 54 48 43 degrees QTcB Int : 423 ms Normal sinus rhythm Nonspecific ST and T wave abnormality Abnormal ECG When compared with ECG of 04-Mar-2025 11:23, MANUAL COMPARISON REQUIRED DATA IS UNCONFIRMED Confirmed by EMANUEL CAPPS MD ([id number]), managing editor LAURY WALTON ([id number]) on 03/06/2025 7:19:25 AM Referred By: Confirmed By: EMANUEL CAPPS MD 03/06/25 0719 Date Emanuel Capps MD CC: Dr. Giovani Membreno DO; Dr. Ranjit Azar DO; Dr. Hoa Haskins MD Signed [facility] 12 Lead EKG [facility] [address] [place] [address] 12 Lead EKG 03/04/25 1123 MR#: [id number] Acct: [id number] Name: VICTOR HUGO ASIF Rep #: [id number] : 1985 39 From: Emanuel Capps MD Attending Dr: Dr. Hoa Haskins MD Status: JOYCE MOORE Ordering Dr: Timothy Chao DO Date: 5 Location: [facility] Sex: M AA Admitted: 03/04/25 Test Reason : CP FOR 3 DAYS Blood Pressure : */* mmHG Vent. Rate : 98 BPM Atrial Rate : 98 BPM P-R Int : 148 ms QRS Dur : 82 ms QT Int : 334 ms P-R-T Axes : 66 57 45 degrees QTcB Int : 426 ms Normal sinus rhythm Nonspecific ST and T wave abnormality Abnormal ECG Confirmed by EMANUEL CAPPS MD ([id number]), managing editor LAURY WLATON ([id number]) on 03/05/2025 9:10:14 AM Referred By: AK/EPIFANIO Confirmed By: EMANUEL CAPPS MD 03/05/25 0910 Date Emanuel Capps MD CC: Dr. Timothy Chao DO; Dr. Ranjit Azar DO; Dr. Hoa Haskins MD Signed Normal [facility] Absolute lymphocyte countOrd ered By: Timothy Chao on 03-04-2025 Lymphocytes Auto (Unsp spec) [#/Vol] 1.24 10*3/uL 0.83-4.51 [facility] Absolute neutrophil countOrd ered By: Timothy Chao on 03-04-2025 Neutrophils (Bld) [#/Vol] 2.5 10*3/uL 2.0-7.7 [facility] Activated partial thrombopla stin time (aPTT) in platelet poor plasma by coagulation aOrdered By: Timothy Chao on 03-04-2025 aPTT Coag (PPP) [Time] 25.8 s 24.1-36.2 [facility] Automated lymphocyte count a s percentage of total leukocytesOrdered By: Timothyely Chao on 03-04-2025 Lymphocytes/100 WBC Auto (Unsp spec) 29.7 % 19-41 [facility] Basic Metabolic Profile (BMP )on 03-04-2025 BUN/CRE 12.6 RATIO Normal 10-20 [facility] Comment on above: Performed By: #### L 300.3900, L503.7505, L100.0100, L500.2500, L501.4021, L300.4310, L300.8000 #### [facility] [address] [place], [address] Calcium [Mass/Vol] 9.4 mg/dL Normal 7.6-11.0 [facility] Comment on above: Performed By: #### L 300.3900, L503.7505, L100.0100, L500.2500, L501.4021, L300.4310, L300.8000 #### [facility] [address] [place], [address] Chloride [Moles/Vol] 103 mmol/L Normal 98-108 [facility] Comment on above: Performed By: #### L 300.3900, L503.7505, L100.0100, L500.2500, L501.4021, L300.4310, L300.8000 #### [facility] [address] [place], [address] CO2 [Moles/Vol] 24.4 mmol/L Normal 21.0-32.0 [facility] Comment on above: Performed By: #### L 300.3900, L503.7505, L100.0100, L500.2500, L501.4021, L300.4310, L300.8000 #### [facility] [address] [place], [address] Creatinine [Mass/Vol] 0.97 mg/dL Normal 0.70-1.20 [facility] Comment on above: Performed By: #### L 300.3900, L503.7505, L100.0100, L500.2500, L501.4021, L300.4310, L300.8000 #### [facility] [address] [place], [address] ECRCL 105.86 ml/min Normal 50-250 [facility] Comment on above: Performed By: #### L 300.3900, L503.7505, L100.0100, L500.2500, L501.4021, L300.4310, L300.8000 #### [facility] [address] [place], [address] GAP 11 Normal 5-15 [facility] Comment on above: Performed By: #### L 300.3900, L503.7505, L100.0100, L500.2500, L501.4021, L300.4310, L300.8000 #### [facility] [address] [place], [address] GFR/1.73 sq M.predicted among non-blacks MDRD (S/P/Bld) [Vol rate/Area] 101 mL/min/{1.73_m2} Normal >60 [facility] Comment on above: Result Comment: mL/m in/1.73m2 CKD-EPI Creatinine Equation (2020) Performed By: #### L 300.3900, L503.7505, L100.0100, L500.2500, L501.4021, L300.4310, L300.8000 #### [facility] [address] [place], [address] Glucose [Mass/Vol] 167 mg/dL High 70-99 [facility] Comment on above: Performed By: #### L 300.3900, L503.7505, L100.0100, L500.2500, L501.4021, L300.4310, L300.8000 #### [facility] [address] [place], [address] Potassium [Moles/Vol] 4.0 mmol/L Normal 3.3-5.1 [facility] Comment on above: Performed By: #### L 300.3900, L503.7505, L100.0100, L500.2500, L501.4021, L300.4310, L300.8000 #### [facility] [address] [place], [address] Sodium [Moles/Vol] 139 mmol/L Normal 133-145 [facility] Comment on above: Performed By: #### L 300.3900, L503.7505, L100.0100, L500.2500, L501.4021, L300.4310, L300.8000 #### [facility] [address] [place], [address] Urea nitrogen [Mass/Vol] 12 mg/dL Normal 4-19 [facility] Comment on above: Performed By: #### L 300.3900, L503.7505, L100.0100, L500.2500, L501.4021, L300.4310, L300.8000 #### [facility] [address] [place], [address] Basophil percentageOrdered B y: Timothy Chao on 03-04-2025 Basophils/100 WBC (Bld) 1.0 % 0-1 [facility] Bedside Glucoseon 03-04-2025 FINGERSTICK GLU 124 mg/dL High 74-106 [facility] Comment on above: Result Comment: CYNTHIA GEMENT OF PATIENT CARE PER NURSING PROTOCOL Performed By: #### L 501.080 #### [facility] [address] [place], [address] FINGERSTICK GLU 113 mg/dL High 74-106 [facility] Comment on above: Result Comment: CYNTHIA GEMENT OF PATIENT CARE PER NURSING PROTOCOL Performed By: #### L 501.080 #### [facility] [address] [place], [address] CBC W/Diff, Automatedon 02-05 Absolute Lymph 1.24 X10 3/uL Normal 0.83-4.51 [facility] Comment on above: Performed By: #### L 300.3900, L503.7505, L100.0100, L500.2500, L501.4021, L300.4310, L300.8000 #### [facility] [address] [place], [address] Absolute Neut 2.5 X10 3/uL Normal 2.0-7.7 [facility] Comment on above: Performed By: #### L 300.3900, L503.7505, L100.0100, L500.2500, L501.4021, L300.4310, L300.8000 #### [facility] [address] [place], [address] Basophils/100 WBC (Bld) 1.0 % Normal 0-1 [facility] Comment on above: Performed By: #### L 300.3900, L503.7505, L100.0100, L500.2500, L501.4021, L300.4310, L300.8000 #### [facility] [address] [place], [address] Eosinophils/100 WBC (Bld) 0.7 % Normal 0-5 [facility] Comment on above: Performed By: #### L 300.3900, L503.7505, L100.0100, L500.2500, L501.4021, L300.4310, L300.8000 #### [facility] [address] [place], [address] Erythrocyte distribution width (RBC) [Ratio] 12.0 % Normal 11.6-14.6 [facility] Comment on above: Performed By: #### L 300.3900, L503.7505, L100.0100, L500.2500, L501.4021, L300.4310, L300.8000 #### [facility] [address] [place], [address] Hematocrit (Bld) [Volume fraction] 37.5 % Low 40-54 [facility] Comment on above: Performed By: #### L 300.3900, L503.7505, L100.0100, L500.2500, L501.4021, L300.4310, L300.8000 #### [facility] [address] [place], [address] Hemoglobin (Bld) [Mass/Vol] 12.4 g/dL Low 13.0-16.5 [facility] Comment on above: Performed By: #### L 300.3900, L503.7505, L100.0100, L500.2500, L501.4021, L300.4310, L300.8000 #### [facility] [address] [place], [address] IG% 0.500 Normal 0.0-0.9 [facility] Comment on above: Result Comment: IG% - Immature Granulocytes (promyelocytes, myelocytes and metamyelocytes) > 1% indicates that a LEFT SHIFT is Present. Performed By: #### L 300.3900, L503.7505, L100.0100, L500.2500, L501.4021, L300.4310, L300.8000 #### [facility] [address] [place], [address] Lymphocytes/100 WBC (Bld) 29.7 % Normal 19-41 [facility] Comment on above: Performed By: #### L 300.3900, L503.7505, L100.0100, L500.2500, L501.4021, L300.4310, L300.8000 #### [facility] [address] [place], [address] MCH (RBC) [Entitic mass] 27.6 pg Normal 27.0-32.0 [facility] Comment on above: Performed By: #### L 300.3900, L503.7505, L100.0100, L500.2500, L501.4021, L300.4310, L300.8000 #### [facility] [address] [place], [address] MCHC (RBC) [Mass/Vol] 33.1 g/dL Normal 32-36 [facility] Comment on above: Performed By: #### L 300.3900, L503.7505, L100.0100, L500.2500, L501.4021, L300.4310, L300.8000 #### [facility] [address] [place], [address] MCV (RBC) [Entitic vol] 83.3 fL Normal 80-94 [facility] Comment on above: Performed By: #### L 300.3900, L503.7505, L100.0100, L500.2500, L501.4021, L300.4310, L300.8000 #### [facility] [address] [place], [address] Monocytes/100 WBC (Bld) 7.2 % Normal 0-10 [facility] Comment on above: Performed By: #### L 300.3900, L503.7505, L100.0100, L500.2500, L501.4021, L300.4310, L300.8000 #### [facility] [address] [place], [address] Neutrophils/100 WBC (Bld) 60.9 % Normal 47-70 [facility] Comment on above: Performed By: #### L 300.3900, L503.7505, L100.0100, L500.2500, L501.4021, L300.4310, L300.8000 #### [facility] [address] [place], [address] Nucleated RBC (Bld) [#/Vol] 0 10*3/uL Normal 0-5 [facility] Comment on above: Performed By: #### L 300.3900, L503.7505, L100.0100, L500.2500, L501.4021, L300.4310, L300.8000 #### [facility] [address] [place], [address] Platelet mean volume (Bld) [Entitic vol] 11.3 fL Normal 6.2-12.0 [facility] Comment on above: Performed By: #### L 300.3900, L503.7505, L100.0100, L500.2500, L501.4021, L300.4310, L300.8000 #### [facility] [address] [place], [address] Platelets (Bld) [#/Vol] 254 10*3/uL Normal 150-450 [facility] Comment on above: Performed By: #### L 300.3900, L503.7505, L100.0100, L500.2500, L501.4021, L300.4310, L300.8000 #### [facility] [address] [place], [address] RBC (Bld) [#/Vol] 4.50 10*6/uL Low 4.6-6.2 [facility] Comment on above: Performed By: #### L 300.3900, L503.7505, L100.0100, L500.2500, L501.4021, L300.4310, L300.8000 #### [facility] [address] [place], [address] RDW SD 36.6 fl Normal 35.1-43.9 [facility] Comment on above: Performed By: #### L 300.3900, L503.7505, L100.0100, L500.2500, L501.4021, L300.4310, L300.8000 #### [facility] [address] [place], [address] WBC (Bld) [#/Vol] 4.2 10*3/uL Low 4.4-11.0 [facility] Comment on above: Performed By: #### L 300.3900, L503.7505, L100.0100, L500.2500, L501.4021, L300.4310, L300.8000 #### [facility] [address] [place], [address] Chest PA and Lateralon 03-04 Chest PA and Lateral [facility] Imaging Services [address] [place] [address] Chest PA and Lateral MR#: [id number] Acct: [id number] Name: VICTOR HUGO ASIF Rep #: [id number] : 1985 M 39 From: Felipe Hawk MD PCP: Dr. Ranjit Azar, DO Status: [facility] ER Study: Chest PA and Lateral Date of Exam: 03/04/25 Exam# [id number] Ordering Dr: Timothy Chao DO PROCEDURE: CHEST PA AND LATERAL 03/04/2025 REASON FOR EXAM: CHEST PAIN TECHNIQUE: Procedure Code: RADCXR Modality: DX Procedure: CHEST PA AND LATERAL COMPARISON: March 01, 2024 FINDINGS: Hardware: None Heart: Normal Mediastinum: Normal Lungs: Clear Bones: The bones are unremarkable. RAD/Chest PA and Lateral IMPRESSION: No acute cardiopulmonary process Reading Location: [id number] CC: Dr. Timothy Chao, DO; Dr. Ranjit Azar, DO Professional Skater: Signed Normal [facility] D-Dimer Quantitative (DVT/PE )on 03-04-2025 D-DIMER QUANT 0.43 FEU/ug/m Normal 0.27-0.49 [facility] Comment on above: Result Comment: NORM AL D-Dimer level (<0.50) indicates no DVT or PE. Performed By: #### L 300.3900, L503.7505, L100.0100, L500.2500, L501.4021, L300.4310, L300.8000 ####[facility] [address] [place], [address] Echo Completeon 03-04-2025 Echo Complete [facility] [address] [place] [address] Echo Complete 03/05/25 1036 MR#: [id number] Acct: [id number] Name: VICTOR HUGO ASIF Rep #: [id number] : 1985 39 From: Emanuel Capps MD Attending Dr: Dr. Hoa Haskins MD Status: AD M TERESA Ordering Dr: Giovani Membreno DO Date: 03/04/25 Location: U Sex: M AA Admitted: 03/04/25 Reason For Study Reason For Study: Chest Pain Procedure This was a 2D Doppler, Color Flow transthoracic echocardiogram. Myocardial strain analysis was performed in this exam to aid in the assessment of cardiac function. Exam performed in department. Left Ventricle Normal left ventricle. The left ventricular ejection fraction is 60 %. Left ventricular systolic function is normal. Stage 1 diastolic dysfunction. No regional wall motion abnormalities noted. Right Ventricle Normal RV size. Normal systolic function. Atria Normal left atrium. Mitral Valve Normal mitral valve. Tricuspid Valve Normal tricuspid valve. Trivial tricuspid valve insufficiency. Pulmonary artery systolic pressure is 20 mmHg. Pulmonic Valve Normal pulmonic valve. Great Vessels Normal aortic root. The pulmonary artery is normal size. Inferior vena cava collapse with respiration. Pericardium/Pleural No pericardial effusion. MMode/2D Measurements Calculations LVIDd: 4.6 cm IVSd: 1.4 cm Ao root diam: 3.3 cm LVIDs: 2.8 cm LVPWd: 0.94 cm RVDd: 4.0 cm FS: 38.5 % LAV(MOD-bp): 35.8 ml LVAd ap4: 29.4 cm2 SV(MOD-sp4): 44.8 ml LAV(MOD-bp) Indexed: 17.9 ml/m2 LVLd ap4: 8.2 cm SI(MOD-sp4): 22.3 ml/m2 LAV(MOD-sp2): 29.3 ml EDV(MOD-sp4): 85.6 ml LAV(MOD-sp4): 39.1 ml EDV(sp4-el): 89.3 ml LVAs ap4: 18.4 cm2 LVLs ap4: 7.5 cm ESV(MOD-sp4): 40.8 ml ESV(sp4-el): 38.3 ml EF(MOD-sp4): 52.3 % EF(sp4-el): 57.1 % SV(sp4-el): 51.0 ml LA dimension(2D): 3.8 cm LA A4 area: 15.2 cm2 TAPSE: 1.4 cm Time Measurements MV dec time: 0.25 sec Doppler Measurements Calculations MV E max rome: 51.2 cm/sec Lat Peak E' Rome: 9.0 cm/sec Med Peak E' Rome: 6.6 cm/sec MV A max rome: 66.8 cm/sec E/E' lat: 5.7 E/E' med: 7.7 MV E/A: 0.77 MV V2 max: 75.7 cm/sec MV P1/2t max rome: 63.1 cm/sec Ao V2 max: 87.8 cm/sec MV max P.3 mmHg MV P1/2t: 84.7 msec Ao max P.1 mmHg MV V2 mean: 40.3 cm/sec MV dec slope: 218.3 cm/sec2 Ao V2 mean: 65.3 cm/sec MV mean P.77 mmHg Ao mean P.9 mmHg MV V2 VTI: 19.3 cm MVA(P1/2t): 2.6 cm2 Ao V2 VTI: 19.1 cm AV (velocity ratio): 1.0 LV V1 max: 84.1 cm/sec PA V2 max: 90.0 cm/sec TR max rome: 196.5 cm/sec LV V1 max P.8 mmHg PA V2 mean: 58.5 cm/sec TR max P.4 mmHg LV V1 mean P.5 mmHg LV V1 mean: 58.1 cm/sec LV V1 VTI: 19.7 cm ECHO/Echo Complete Interpretation Summary The left ventricular ejection fraction is 60 %. Normal left ventricle. Left ventricular systolic function is normal. Stage 1 diastolic dysfunction. Structurally normal valves. Ordering Physician: Giovani Membreno Performed By: Timothy Leija RCS 03/05/251653 Date Emanuel Capps MD CC: Dr. Giovani Membreno DO; Dr. Ranjit Azar DO; Dr. Hoa Haskins MD Date Dictated: 03/05/251035 Date Transcribed: 03/05/251653 Professional Skater: Signed Normal [facility] Emergency Department Summary on 03-04-2025 Emergency Department Summary [facility] Medical Records Department [address] [place] [address] Emergency Department Summary 03/04/25 MR#: [id number] Acct: [id number] Name: VICTOR HUGO ASIF Rep #: [id number] : 1985 39 From: Timothy Chao DO PCP: Dr. Ranjit Azar, DO Status:REG ER Location: ED HPI History of Present Illness Chief Complaint: Chest Pain Narrative Narrative: Chief complaint and HPI: 39-year-old male with past medical history of DM2, seizures, asthma, HTN presents for evaluation of midsternal chest pain. Describes the pain as pressure. Worse with exertion. Has not taken any OTC medication for the pain. Denies any injury or lifting anything heavy. Denies any recent travel or lower extremity swelling or pain. Denies tobacco abuse. Denies any fever, chills, shortness of breath, abdominal pain, nausea, vomiting. Review of systems: See HPI Medications: As listed on the chart Allergies: As listed on the chart PFSH: Per chart Vital signs: As listed on the chart. Reviewed. Physical exam: Gen: A O x3, NAD Head: Normocephalic, atraumatic Eyes: No sclera icterus, conjunctiva clear ENT: Moist mucous membranes Neck: Trachea midline, No JVD CV: RRR, no murmurs, chest pain nonreproducible, no peripheral edema Resp: Lungs CTA BL, no w/r/c GI: Abd soft, non-distended, non-tender, no r/r/g Musc: Full ROM, no deformity, bilateral ankle/feet braces Skin: Warm, dry Neuro: Alert, oriented, grossly intact, sensation intact Psych: Cooperative, appropriate mood and affect [facility] Medical History Acute gangrenous cholecystitis Acute cholecystitis DM2 (diabetes mellitus, type 2) Schizoaffective disorder Cholecystitis Depression Seizure SOB (shortness of breath) Asthma HTN (hypertension) Home Medications ???Medication ???Instructions ???Recorded ???Last Taken ???Type lisinopril 10 mg tablet 10 mg PO DAILY 03/04/25 Unknown Hi story Allergy/AdvReac Type Severity Reaction Status Date / Time hydrocodone bitartrate (From Allergy Hives Verified 03/04/25 11:16 Vicodin) acetaminophen AdvReac Nausea/hive Verified 03/04/25 11:16 s baclofen AdvReac IT MAKES Verified 03/04/25 11:16 HIM LIGHTHEADED AND SICK lactose AdvReac Nausea Verified 03/04/25 11:16 Penicillins AdvReac Nausea Verified 03/04/25 11:16 Surgical History History of laparoscopic cholecystectomy ( 04/20/19) Social History household members: spouse and family current occupational status: employed Smoking Status: Former smoker EXAM Physical Exam Const Vital Signs: 03/04/25 11:16 03/04/25 13:16 03/04/25 14:50 Temperature 98 F Temperature Source Temporal Pulse Rate 107 H 78 77 Respiratory Rate 18 16 Blood Pressure 152/104 H 156/114 H 158/108 H Blood Pressure Mean 120 128 124 Pulse Ox 100 100 Oxygen Delivery Method Room Air MDM MDM MDM Narrative Medical decision making narrative: 39-year-old male with past medical history of DM2, seizures, asthma, HTN presents for evaluation of midsternal chest pain. Describes the pain as pressure. Worse with exertion. Has not taken any OTC medication for the pain. Differential diagnosis includes but is not limited to ACS, hypertension urgency, electrolyte abnormality, DVT, myofascial spasm. Aspirin ordered for pain. Cardiac workup ordered. CBC with leukopenia 4.2 and anemia of 12.4. On chart review patient has anemia in the past and this is similar. Platelets unremarkable. Coagulation panel unremarkable. BMP unremarkable. BNP unremarkable. Troponin x 2 unremarkable. On reevaluation patient states his chest pain is intermittent and still present. His heart score is a 4 which places him in a moderate category. Given that his chest pain worsens with exertion will speak with hospitalist about admission for ACS workup. Hospitalist accepted admission. Patient was updated on the results and further understand the plan. EKG: Interpreted by me/EM physician: EKG shows normal sinus rhythm with nonspecific ST changes. Heart rate 98. Diagnostic: Interpreted by me/EM physician: Chest x-ray pneumonia, effusion, cardiomegaly, pneumothorax. Radiology in agreement. Impression: 1. Chest pain, with ACS rule out 2. 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 with history of hypertension 3. Anemia with history of anemia Lab Data Labs: Laboratory Results - last 24 hr 03/04/25 03/04/25 11:38 14:06 WBC 4.2 L RBC 4.50 L Hgb 12.4 L Hct 37.5 L MCV 83.3 MCH 27.6 MCHC 33.1 RDW Std Deviation 36.6 RDW Coeff of Ferny 12.0 Plt Count 254 MPV 11.3 Immature Gran % (Auto) 0.500 Neut % (Auto) 60.9 Lymph % (Auto) (more content not included)... Normal [facility] Eosinophil percentageOrdered By: Timothy Chao on 03-04-2025 Eosinophils/100 WBC (Bld) 0.7 % 0-5 [facility] H AND P Exam - Hospital[place] 03-04-2025 H&P Exam - Hospitalist [facility] Medical Records Department [address] [place] [address] H P Exam - Hospitalist 03/04/25 1458 MR#: [id number] Acct: [id number] Name: VICTOR HUGO ASIF Rep #: [id number] : 1985 39 From: Giovani Membreno DO PCP: Dr. Ranjit Azar, DO Status:ADM TERESA Location: [place] [address] HPI - General General Date of Admission: 03/04/25 Date of Service: 03/04/25 Chief Complaint: Chest pain HPI Narrative VICTOR HUGO ASIF, is a 39 M who presented to [facility] ED on 03/04/2025 with chest pain. Medical history significant for hypertension, type 2 diabetes mellitus and class I obesity. Patient lives at home with his . 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 He reports ongoing chest pain/heaviness in the center part of his chest for the past 3 days. He has had chest discomfort in that area before but never this severe. Denies any radiation of the pain into his arms or into his neck. Notes that the pain seems to worsen slightly with exertion but does not improve significantly with rest. Denies any acid reflux symptoms. Denies any recent falls or trauma. Denies any tobacco, alcohol or recreational drug use. Denies any significant family history of cardiac disease that he is aware of. In the ED he was hypertensive to the 150s to 160s systolic but otherwise in normal sinus rhythm and stable on room air at rest. CBC and BMP were benign. Glucose 167. Troponins negative x 2. BNP normal. Chest x-ray nonacute. EKG with normal sinus rhythm and no ST changes noted. Has never had an echo or stress test done. Given his age, heart score 4 and ongoing chest pain, hospitalist was contacted for admission. I saw the patient at bedside in the ED. Patient was sitting back fairly comfortably in bed, in no acute distress. He was conversing normally and was somewhat long-winded with conversation. He was given a dose of aspirin 325 mg in the ED. Notes that his chest pain is slightly improved from earlier today. Denies any shortness of breath. Patient notes that he has currently on only lisinopril and Trulicity at home, though he apparently was previously on several other medications as of about a year ago. However, he lost his insurance coverage and is seeing a new PCP who he notes took him off most of these medications because they were not needed. He denies any other acute concerns currently. [facility] Medical History Acute gangrenous cholecystitis Acute cholecystitis DM2 (diabetes mellitus, type 2) Schizoaffective disorder Cholecystitis Depression Seizure SOB (shortness of breath) Asthma HTN (hypertension) Home Medications ???Medication ???Instructions ???Recorded ???Last Taken ???Type lisinopril 10 mg tablet 10 mg PO DAILY 03/04/25 Unknown Hi story Allergy/AdvReac Type Severity Reaction Status Date / Time hydrocodone bitartrate (From Allergy Hives Verified 03/04/25 11:16 Vicodin) acetaminophen AdvReac Nausea/hive Verified 03/04/25 11:16 s baclofen AdvReac IT MAKES Verified 03/04/25 11:16 HIM LIGHTHEADED AND SICK lactose AdvReac Nausea Verified 03/04/25 11:16 Penicillins AdvReac Nausea Verified 03/04/25 11:16 Surgical History History of laparoscopic cholecystectomy ( 04/20/19) Social History household members: spouse and family current occupational status: employed Smoking Status: Former smoker ROS Constitutional Constitutional: Denies chills, fatigue, fever(s) or weakness Cardiovascular Cardiovascular: Reports chest pain; Denies dyspnea on exertion, edema, lightheadedness or palpitations Respiratory/Chest Respiratory/Chest: Denies cough, shortness of breath at rest or shortness of breath with exertion Gastrointestinal Gastrointestinal: Denies abdominal pain Musculoskeletal Musculoskeletal: Denies arthralgias or myalgias Neurologic Neurologic: Denies dizziness, focal weakness or headache(s) Vital Signs Vital Signs Vital Signs: 03/04/25 11:16 03/04/25 13:16 03/04/25 14:50 Temperature 98 F Temperature Source Temporal Pulse Rate 107 H 78 77 Respiratory Rate 18 16 Blood Pressure 152/104 H 156/114 H 158/108 H Blood Pressure Mean 120 128 124 Pulse Ox 100 100 Oxygen Delivery Method Room Air Weight Weight: 91 kg Body Mass Index (BMI) 32.3 Physical Exam Const alert, oriented x3, no apparent distress and average body habitus Constitutional Narrative: Middle-age male, class I obesity, mildly fatigued appearing, otherwise sitting back fairly comfortably in bed, conversing normally, in no acute distress. General Appearance: cooperative and comfortable HEENT normocephalic, head/scalp atraumatic, hearing grossly (more content not included)... Normal [facility] Hemoglobin A1con 03-04-2025 HbA1c (Bld) [Mass fraction] 8.5 % High <=5.6 [facility] Comment on above: Result Comment: Norm al < 5.7 % Prediabetic 5.7 - 6.4 % Diabetic >or= 6.5 % Please note range changes. Performed By: #### L 501.7514 #### [facility] [place], [address] Hemoglobin A1c percentageOrd ered By: Giovani Membreno on 03-04-2025 HbA1c (Bld) [Mass fraction] 8.5 % High <5.7 [facility] Comment on above: Normal < 5.7 % Predi abetic 5.7 - 6.4 % Diabetic >or= 6.5 % Please note range changes. Immature granulocytes/100 WB C Auto (Bld)Ordered By: Timothy Chao on 03-04-2025 Immature granulocytes/100 WBC (Bld) 0.500 % 0.0-0.9 [facility] Comment on above: IG% - Immature Granu locytes (promyelocytes, myelocytes and metamyelocytes) > 1% indicates that a LEFT SHIFT is Present. International normalized rat io (INR) calculationOrdered By: Timothy Chao on 03-04-2025 INR Coag (Bld) [Relative time] 0.9 {INR} [facility] L501.4021on 03-04-2025 Trop T High Sen 15 ng/L Normal <=22 [facility] Comment on above: Performed By: #### L 300.3900, L503.7505, L100.0100, L500.2500, L501.4021, L300.4310, L300.8000 #### [facility] [address] [place], [address] Monocyte percentageOrdered B y: Timothy Chao on 03-04-2025 Monocytes/100 WBC (Bld) 7.2 % 0-10 [facility] Natriuretic peptide.B prohor delphine N-Terminal [Mass/volume] in Serum or PlasmaOrdered By: Timothy Chao on 03-04-2025 Natriuretic peptide.B prohormone N-Terminal [Mass/Vol] 62 pg/mL <450 [facility] Comment on above: Heart Failure Unlike ly: < 300 pg/mLHeart Failure Likely< 50 Years: > 450 pg/mL50-75 Years: > 900 pg/mL>75 Years: > 1800 pg/mL Neutrophil percentageOrdered By: Timothy Chao on 03-04-2025 Neutrophils/100 WBC (Bld) 60.9 % 47-70 [facility] Nucleated red blood cell per centageOrdered By: Timothyely Chao on 03-04-2025 Nucleated RBC/100 WBC (Bld) [Ratio] 0 % 0-5 [facility] Partial Thromboplast Timeon 03-04-2025 aPTT Coag (Bld) [Time] 25.8 s Normal 24.1-36.2 [facility] Comment on above: Performed By: #### L 300.3900, L503.7505, L100.0100, L500.2500, L501.4021, L300.4310, L300.8000 ####[facility] [address] [place], [place], [id number] Pro- Brain NATRIURETIC PEPTI Carlos 03-04-2025 Natriuretic peptide B (Bld) [Mass/Vol] 62 pg/mL Normal <=450 [facility] Comment on above: Result Comment: Hear t Failure Unlikely: < 300 pg/mL Heart Failure Likely < 50 Years: > 450 pg/mL 50-75 Years: > 900 pg/mL >75 Years: > 1800 pg/mL Performed By: #### L 300.3900, L503.7505, L100.0100, L500.2500, L501.4021, L300.4310, L300.8000 ####[facility] [address] [place], [address] Prothrombin Time w/INRon INR Coag (PPP) [Relative time] 0.9 {INR} Normal [facility] Comment on above: Performed By: #### L 300.3900, L503.7505, L100.0100, L500.2500, L501.4021, L300.4310, L300.8000 ####[facility] [address], [address] PT Coag (PPP) [Time] 12.7 s Normal 11.7-14.9 [facility] Comment on above: Performed By: #### L 300.3900, L503.7505, L100.0100, L500.2500, L501.4021, L300.4310, L300.8000 ####[facility] [address] [place], [address] Prothrombin timeOrdered By: Timothy Chao on 03-04-2025 PT Coag (PPP) [Time] 12.7 s 11.7-14.9 [facility] Troponin T HS 2 HRon 025 Trop T High Sen 10 ng/L Normal <=22 [facility] Comment on above: Performed By: #### L 499.0042 #### [facility] [address] [place], [address] Troponin T.cardiac [Mass/vol ume] in Serum or Plasma by High sensitivity methodOrdered By: Timothy Chao on 03-04-2025 Troponin T.cardiac High sensitivity method [Mass/Vol] 10 ng/L <22 [facility] Troponin T.cardiac High sensitivity method [Mass/Vol] 15 ng/L <22 [facility] CNPNon 01-28-2025 [facility] VICTOR HUGO ASIF ([id number]) 1985 Date Time Provider Department 01/28/25 RANJIT AZAR [facility] During your visit today, we recorded the following information about you: Theresa Alvarez MA 01/28/2025 11:49 AM Signed PA submitted for freestlye lico sensor MUNA Parikh Janice, LPN 02/05/2025 9:33 AM Signed This was denied noting pt is not on multiple insulins daily. Dear Lance Pulido: Recently, you or your doctor asked us [...] lightheadedness PENICILLIN 10/30/2023 4 - Hives VICODIN (HYDROCODONE-ACETAMINOPHE* 4 - Hives Date Reviewed: 01/27/2025 Reviewed by: Lance Pulido APRN.WARRANTY CLERK - Fully Assessed Reason for Visit: Insurance Authorization [[id number]] Cmt: Lico 3 sensors Prescriptions as of [...] BMI 30-34.9 [E66.811] 01/27/2025 Encounter Status:Closed by LANCE PULIDO on 02/05/25 [facility] CNOVon 01-27-2025 CNOV Office Visit ([facility] ) VICTOR HUGO ASIF ([id number]) 1985 M Date Time Provider Department 01/27/25 10:20 AM LANCE PULIDO [facility] During your visit today, we recorded the following information about you: Pulse Respiration Blood pressure Weight 93/minute 16/minute 133/80 91.9 kg Lance Pulido APRN.WARRANTY CLERK 01/27/2025 12:30 PM Addendum This is a 39 year old male who presents today with: Victor Hugo Asif is a 39-year-old male with a history of type 2 diabetes mellitus, HTN, and migraines, presenting for follow-up. HISTORY OF PRESENT ILLNESS: Type 2 Diabetes Mellitus: - Diagnosed in [id number] - Previously on Trulicity and Tresiba; discontinued [...] horns. - no recent seizures reported, follows [facility] neurology Dr Owens last seen 12/20 Vitamin D Deficiency: - Previously on vitamin D3; discontinued. - Last level was 9.1 ng/mL, 7 months ago. Vision: - Wears glasses; last eye exam within the past year at [facility] per patient - Diagnosed with something he can't recall that they said surgery would be indicated possibly - Interested in LASIK surgery. Lifestyle: - Walks frequently due to not having a carry all driver's license. - Cooks meals from scratch, avoids cooking oil. 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 Normal [facility] HEMOGLOBIN A1C (POC)on 01-27 HbA1c (Bld) [Mass fraction] 12.7 % Abnormal 4.3 - 5.6 % [facility] Comment on above: Location:[address], [place], [address] Point of care (POC) Hemoglobin A1c (HGBA1C) testing is intended to assess glucose control and provide a management tool for patients known to have diabetes and their healthcare providers. Target HGBA1C levels may depend on specific clinical circumstances. POC HGBA1C is not intended for use as a diagnostic or screening test; laboratory-based testing should be used for diagnostic purposes. The following information is supplemental and may not be applicable to specific diabetes management situations: The POC device mapper provides a normal range of 4.2% to 6.5% for the HGBA1C POC test. However, the [place] [employer] guidelines indicate that patients with HGBA1C in the range of 5.7% to 6.4% are at increased risk for development of diabetes and that intervention by lifestyle modification may be beneficial. A HGBA1C level greater than or equal to 6.5% is considered diagnostic of diabetes, pending confirmatory testing. Use of HGBA1C testing to evaluate glucose control may not be appropriate for patients with hemoglobin variants or other conditions (e.g. anemia) that alter red blood cell lifespan. Interpretation and review of laboratory results Abnormal [facility] Absolute lymphocyte countOrd ered By: Javid Winter on 01-21-2025 Lymphocytes Auto (Unsp spec) [#/Vol] 1.72 10*3/uL 0.83-4.51 [facility] Absolute neutrophil countOrd ered By: Javid Winter on 01-21-2025 Neutrophils (Bld) [#/Vol] 3.8 10*3/uL 2.0-7.7 [facility] Anion gap in Serum or Plasma Ordered By: Javid Winter on 01-21-2025 Anion gap [Moles/Vol] 11 mmol/L - [facility] Automated lymphocyte count a s percentage of total leukocytesOrdered By: Javid Winter on 01-21-2025 Lymphocytes/100 WBC Auto (Unsp spec) 28.4 % [facility] BUN/creatinine ratioOrdered By: Javid Winter on 01-21-2025 Urea nitrogen/Creatinine [Mass ratio] 9.2 mg/mg Low 10- [facility] Basic Metabolic Profile (BMP )on 01-21-2025 BUN/CRE 9.2 RATIO Low - [facility] Comment on above: Performed By: #### L 100.0100, L500.2500, L501.5200 ####[facility] [address] [place], [address] Calcium [Mass/Vol] 9.8 mg/dL Normal 7.6-11.0 [facility] Comment on above: Performed By: #### L 100.0100, L500.2500, L501.5200 ####[facility] [address] [place], [address] Chloride [Moles/Vol] 99 mmol/L Normal 98-108 [facility] Comment on above: Performed By: #### L 100.0100, L500.2500, L501.5200 ####[facility] [address] [place], [address] CO2 [Moles/Vol] 23.7 mmol/L Normal 21.0-32.0 [facility] Comment on above: Performed By: #### L 100.0100, L500.2500, L501.5200 ####[facility] [address] [place], [address] Creatinine [Mass/Vol] 1.42 mg/dL High 0.70-1.20 [facility] Comment on above: Performed By: #### L 100.0100, L500.2500, L501.5200 ####[facility] [address] [place], [address] ECRCL 71.96 ml/min Normal 50-250 [facility] Comment on above: Performed By: #### L 100.0100, L500.2500, L501.5200 ####[facility] [address] [place], [address] GAP 11 Normal 5-15 [facility] Comment on above: Performed By: #### L 100.0100, L500.2500, L501.5200 ####[facility] [address] [place], [address] GFR/1.73 sq M.predicted among non-blacks MDRD (S/P/Bld) [Vol rate/Area] 64 mL/min/{1.73_m2} Normal >60 [facility] Comment on above: Result Comment: mL/m in/1.73m2 CKD-EPI Creatinine Equation (2020) Performed By: #### L 100.0100, L500.2500, L501.5200 ####[facility] [address] [place], [address] Glucose [Mass/Vol] 440 mg/dL High 70-99 [facility] Comment on above: Performed By: #### L 100.0100, L500.2500, L501.5200 ####[facility] [address] [place], [address] Potassium [Moles/Vol] 4.5 mmol/L Normal 3.3-5.1 [facility] Comment on above: Performed By: #### L 100.0100, L500.2500, L501.5200 ####[facility] [address] [place], [address] Sodium [Moles/Vol] 134 mmol/L Normal 133-145 [facility] Comment on above: Performed By: #### L 100.0100, L500.2500, L501.5200 ####[facility] [address] [place], [address] Urea nitrogen [Mass/Vol] 13 mg/dL Normal 4-19 [facility] Comment on above: Performed By: #### L 100.0100, L500.2500, L501.5200 ####[facility] [address] [place], [address] Basophil percentageOrdered B y: Javid Winter on 01-21-2025 Basophils/100 WBC (Bld) 0.8 % 0-1 [facility] Brain/Head without Contrasto n 01-21-2025 Brain/Head without Contrast [facility] [address] [place], [place] [address] Brain/Head without Contrast MR#: [id number] Acct: [id number] Name: VICTOR HUGO ASIF Rep #: [id number] : 1985 M 39 From: Jasen Palacios MD PCP: Dr. Ranjit Azar DO Status: REG ER Study: Brain/Head without Contrast Date of Exam: 01/03 02/27 Exam# [id number] Ordering Dr: Javid Winter MD EXAM: NONCONTRAST CT SCAN OF THE HEAD CLINICAL HISTORY: Numbness COMPARISON: February 08, 2023, April 22, 2020 TECHNIQUE: Serial axial series through the head were obtained without contrast. 2-D coronal and sagittal reformats were then obtained. FINDINGS: Brain: There is a patent cavum, unchanged. There is dilation of the occipital horns of the right and left lateral ventricle, measuring 2.1 cm on the right, and 2.9 cm in the left, unchanged. There is no acute large territorial infarct, intracranial hemorrhage, midline shift or mass effect. The sella and pineal gland regions appear unremarkable. There is no evidence of cerebellar tonsillar herniation. Ventricles: Basilar cisterns are patent. Paranasal sinuses: Well-aerated Mastoid air cells: Well-aerated. Calvarium: The bony calvarium is intact. Orbits: The bilateral globes are symmetric, without retrobulbar compressive mass lesion or hemorrhage. CT/Brain/Head without Contrast IMPRESSION: There is a patent cavum, unchanged. There is dilation of the occipital horns of the right and left lateral ventricle, measuring 2.1 cm on the right, and 2.9 cm in the left, unchanged. No acute intracranial pathology. Reading Location: [facility] CC: Dr. Javid Winter MD; Dr. Ranjit Azar DO Professional Skater: Signed Normal [facility] CBC W/Diff, Automatedon 01-03 Absolute Lymph 1.72 X10 3/uL Normal 0.83-4.51 [facility] Comment on above: Performed By: #### L 100.0100, L500.2500, L501.5200 ####[facility] [address] [place], [address] Absolute Neut 3.8 X10 3/uL Normal 2.0-7.7 [facility] Comment on above: Performed By: #### L 100.0100, L500.2500, L501.5200 ####[facility] [address] [place], [address] Basophils/100 WBC (Bld) 0.8 % Normal 0-1 [facility] Comment on above: Performed By: #### L 100.0100, L500.2500, L501.5200 ####[facility] [address] [place], [address] Eosinophils/100 WBC (Bld) 0.3 % Normal 0-5 [facility] Comment on above: Performed By: #### L 100.0100, L500.2500, L501.5200 ####[facility] [address] [place], [address] Erythrocyte distribution width (RBC) [Ratio] 11.7 % Normal 11.6-14.6 [facility] Comment on above: Performed By: #### L 100.0100, L500.2500, L501.5200 ####[facility] [address] [place], [address] Hematocrit (Bld) [Volume fraction] 40.6 % Normal 40-54 [facility] Comment on above: Performed By: #### L 100.0100, L500.2500, L501.5200 ####[facility] [address] [place], [address] Hemoglobin (Bld) [Mass/Vol] 13.7 g/dL Normal 13.0-16.5 [facility] Comment on above: Performed By: #### L 100.0100, L500.2500, L501.5200 ####[facility] [address] [place], [address] IG% 0.300 Normal 0.0-0.9 [facility] Comment on above: Result Comment: IG% - Immature Granulocytes (promyelocytes, myelocytes and metamyelocytes) > 1% indicates that a LEFT SHIFT is Present. Performed By: #### L 100.0100, L500.2500, L501.5200 ####[facility] [address] [place], [address] Lymphocytes/100 WBC (Bld) 28.4 % Normal 19-41 [facility] Comment on above: Performed By: #### L 100.0100, L500.2500, L501.5200 ####[facility] [address] [place], [address] MCH (RBC) [Entitic mass] 26.8 pg Low 27.0-32.0 [facility] Comment on above: Performed By: #### L 100.0100, L500.2500, L501.5200 ####[facility] [address] [place], [address] MCHC (RBC) [Mass/Vol] 33.7 g/dL Normal 32-36 [facility] Comment on above: Performed By: #### L 100.0100, L500.2500, L501.5200 ####[facility] [address] [place], [address] MCV (RBC) [Entitic vol] 79.3 fL Low 80-94 [facility] Comment on above: Performed By: #### L 100.0100, L500.2500, L501.5200 ####[facility] [address] [place], [address] Monocytes/100 WBC (Bld) 7.4 % Normal 0-10 [facility] Comment on above: Performed By: #### L 100.0100, L500.2500, L501.5200 ####[facility] [address] [place], [address] Neutrophils/100 WBC (Bld) 62.8 % Normal 47-70 [facility] Comment on above: Performed By: #### L 100.0100, L500.2500, L501.5200 ####[facility] [address] [place], [address] Nucleated RBC (Bld) [#/Vol] 0 10*3/uL Normal 0-5 [facility] Comment on above: Performed By: #### L 100.0100, L500.2500, L501.5200 ####[facility] [address] [place], [address] Platelet mean volume (Bld) [Entitic vol] 11.1 fL Normal 6.2-12.0 [facility] Comment on above: Performed By: #### L 100.0100, L500.2500, L501.5200 ####[facility] [address] [place], [address] Platelets (Bld) [#/Vol] 270 10*3/uL Normal 150-450 [facility] Comment on above: Performed By: #### L 100.0100, L500.2500, L501.5200 ####[facility] [address] [place], [address] RBC (Bld) [#/Vol] 5.12 10*6/uL Normal 4.6-6.2 [facility] Comment on above: Performed By: #### L 100.0100, L500.2500, L501.5200 ####[facility] [address] [place], [address] RDW SD 33.7 fl Low 35.1-43.9 [facility] Comment on above: Performed By: #### L 100.0100, L500.2500, L501.5200 ####[facility] [address] [place], [address] WBC (Bld) [#/Vol] 6.1 10*3/uL Normal 4.4-11.0 [facility] Comment on above: Performed By: #### L 100.0100, L500.2500, L501.5200 ####[facility] [address] [place], [address] Carbon dioxide, total [Moles /volume] in Central venous bloodOrdered By: Javid Winter on 01-21-2025 CO2 [Moles/Vol] 23.7 mmol/L 21.0-32.0 [facility] Chloride assayOrdered By: Bob Winter on 01-21-2025 Chloride [Moles/Vol] 99 mmol/L 98-108 [facility] Emergency Department Summary on 01-21-[address] [facility] Medical Records Department [address] [place] [address] Emergency Department Summary 01/21/25 MR#: [id number] Acct: [id number] Name: VICTOR HUGO ASIF Rep #: [id number] : 1985 39 From: Javid Winter MD PCP: Dr. Ranjit Azar, DO Status:[facility] ER Location: ED HPI History of Present Illness Chief Complaint: Numb/Ting Narrative Narrative: 39-year-old male with past medical history of type 2 diabetes but not on medication, presents with numbness and tingling of his hands bilaterally as well as his feet bilaterally that has had for 2 to 3 days. He denies any headache, no exacerbating or alleviating factors. He states he does see a neurologist because of his type 2 diabetes, but has been without medication for at least a year. He states that his paresthesias and numbness of his hands and feet have been constant over the last few days, but worsened today when he was at work. No recent nausea or vomiting, no other symptoms. [facility] Medical History Acute gangrenous cholecystitis Acute cholecystitis DM2 (diabetes mellitus, type 2) Schizoaffective disorder Cholecystitis Depression Seizure SOB (shortness of breath) Asthma HTN (hypertension) Allergy/AdvReac Type Severity Reaction Status Date / Time hydrocodone bitartrate (From Allergy Hives Verified 03/01/24 09:17 Vicodin) acetaminophen AdvReac Nausea/hive Verified 03/01/24 09:17 s baclofen AdvReac IT MAKES Verified 03/01/24 09:17 HIM LIGHTHEADED AND SICK lactose AdvReac Nausea Verified 03/01/24 09:17 Penicillins AdvReac Nausea Verified 03/01/24 09:17 Surgical History History of laparoscopic cholecystectomy ( 04/20/19) Social History household members: spouse and family current occupational status: employed Smoking Status: Former smoker ROS ROS ED ROS Narrative Review of systems positive for numbness and tingling of bilateral hands and bilateral feet for the last 3 days. No headache or neck pain. No fevers or chills, no nausea or vomiting. No exacerbating or alleviating factors. EXAM Physical Exam Narrative Exam Narrative: Afebrile. Vital signs noted. Nontoxic-appearing. Cardiovascular examination reveals mild tachycardia. Lungs are clear to auscultation bilaterally. Abdomen is soft and nontender with without guarding or rebound. Positive bowel sounds. Neurological examination is nonfocal, nonlateralizing. Moves all extremities. Awake, alert, interactive. Const Vital Signs: 01/21/25 11:46 01/21/25 12:46 01/21/25 13:00 Temperature 98.6 F Temperature Source Oral Pulse Rate 124 H 98 97 Respiratory Rate 16 24 H 24 H Blood Pressure 147/103 H 144/102 H 137/88 H Blood Pressure Mean 117 116 104 Pulse Ox 98 97 98 Oxygen Delivery Method Room Air Room Air MDM MDM MDM Narrative Medical decision making narrative: The differential diagnosis includes but not limited to dehydration versus other electrolyte imbalance versus paresthesias versus hyperventilation. I doubt TIA or stroke and I do not feel stroke team is indicated because his symptoms are bilateral. CT of the brain radiology report was reviewed and there are chronic changes but no acute intracranial pathology. I reviewed his laboratory work and he has a normal white count of 6.1 with hemoglobin 13.7, hematocrit 40.6, platelet count 270. Electrolyte panel shows normal sodium of 134 with potassium 4.5, CO2 of 23.7, BUN 13 and creatinine slightly elevated at 1.42 but when compared to prior labs, he has had elevation in his creatinine previously intermittently. While glucose is elevated at 440, he has a normal anion gap of 11 so I doubt diabetic ketoacidosis. His magnesium level is normal at 2.0. He was told that he may need to be started on medications for his hyperglycemia. After half a liter of IV fluids, his heart rate is currently in the 90s. Repeat examination shows him resting comfortably. He may be having more of a diabetic neuropathy. At this point in time, I do feel he can be discharged to follow-up with his primary care provider and his neurologist. I do not feel he requires admission. Return instructions to the emergency department were reviewed. Disposition is discharged home in stable condition. History Record Review Discussion w/independent historian: Patient Additional record(s) reviewed:: Prior labs Lab Data Attestation: I reviewed the patient's lab results. Labs: Laboratory Results - last 24 hr 01/21/25 12:25 WBC 6.1 RBC 5.12 Hgb 13.7 Hct 40.6 MCV 79.3 L MCH 26.8 L MCHC 33.7 RDW Std Deviation 33.7 L RDW Coeff of Ferny 11.7 Plt Count 270 MPV 11.1 (more content not included)... Normal [facility] Eosinophil percentageOrdered By: Javid Winter on 01-21-2025 Eosinophils/100 WBC (Bld) 0.3 % 0-5 [facility] Erythrocyte distribution wid th ratioOrdered By: Javid Winter on 01-21-2025 Erythrocyte distribution width (RBC) [Ratio] 11.7 % 11.6-14.6 [facility] Erythrocyte distribution wid th standard deviationOrdered By: Javid Winter on 01-21-2025 Erythrocyte distribution width (RBC) [Ratio] 33.7 fl Low 35.1-43.9 [facility] Glomerular filtration rate ( GFR) estimation/1.73 sq m using serum, plasma, or whole bOrdered By: Javid Winter on 01-21-2025 GFR/1.73 sq M.predicted among non-blacks MDRD (S/P/Bld) [Vol rate/Area] 64 mL/min/{1.73_m2} >60 [facility] Comment on above: mL/min/1.73m2 CKD-EP I Creatinine Equation (2020) Hematocrit Auto (Bld) [Volum e fraction]Ordered By: Javid Winter on 01-21-2025 Hematocrit (Bld) [Volume fraction] 40.6 % 40-54 [facility] Hemoglobin measurementOrdere d By: Javid Winter on 01-21-2025 Hemoglobin (Bld) [Mass/Vol] 13.7 g/dL 13.0-16.5 [facility] Immature granulocytes/100 WB C Auto (Bld)Ordered By: Javid Winter on 01-21-2025 Immature granulocytes/100 WBC (Bld) 0.300 % 0.0-0.9 [facility] Comment on above: IG% - Immature Granu locytes (promyelocytes, myelocytes and metamyelocytes) > 1% indicates that a LEFT SHIFT is Present. MCV (mean corpuscular volume ) determinationOrdered By: Javid Winter on 01-21-2025 MCV (RBC) [Entitic vol] 79.3 fL Low 80-94 [facility] Magnesiumon 01-21-2025 Magnesium [Mass/Vol] 2.0 mg/dL Normal 1.5-2.2 [facility] Comment on above: Performed By: #### L 100.0100, L500.2500, L501.5200 ####[facility] [address] [place], [address] Magnesium measurement (mass/ volume)Ordered By: Javid Winter on 01-21-2025 Magnesium (Unsp spec) [Mass/Vol] 2.0 mg/dL 1.5-2.2 [facility] Mean corpuscular hemoglobin (MCH) determinationOrdered By: Javid Winter on 01-21-2025 MCH (RBC) [Entitic mass] 26.8 pg Low 27.0-32.0 [facility] Mean corpuscular hemoglobin concentration (MCHC) determinationOrdered By: Javid Winter on 01-21-2025 MCHC (RBC) [Mass/Vol] 33.7 g/dL 32-36 [facility] Mean platelet volume determi nationOrdered By: Javid Winter on 01-21-2025 Platelet mean volume (Bld) [Entitic vol] 11.1 fL 6.2-12.0 [facility] Monocyte percentageOrdered B y: Javid Winter on 01-21-2025 Monocytes/100 WBC (Bld) 7.4 % 0-10 [facility] Neutrophil percentageOrdered By: Javid Winter on 01-21-2025 Neutrophils/100 WBC (Bld) 62.8 % 47-70 [facility] Nucleated red blood cell per centageOrdered By: Javid Winter on 01-21-2025 Nucleated RBC/100 WBC (Bld) [Ratio] 0 % 0-5 [facility] Platelet countOrdered By: Bob Winter on 01-21-2025 Platelets (Bld) [#/Vol] 270 10*3/uL 150-450 [facility] Potassium measurement (mass/ volume)Ordered By: Javid Winter on 01-21-2025 Potassium (Unsp spec) [Mass/Vol] 4.5 mmol/L 3.3-5.1 [facility] RBC Auto (Bld) [#/Vol]Ordere d By: Javid Winter on 01-21-2025 RBC (Bld) [#/Vol] 5.12 10*6/uL 4.6-6.2 [facility] Serum creatinine measurement (mass/volume)Ordered By: Javid Winter on 01-21-2025 Creatinine [Mass/Vol] 1.42 mg/dL High 0.70-1.20 [facility] Serum glucose measurement (m ass/volume)Ordered By: Javid Winter on 01-21-2025 Glucose [Mass/Vol] 440 mg/dL High 70-99 [facility] Serum or plasma calcium yanelis urement (mass/volume)Ordered By: Javid Winter on 01-21-2025 Calcium [Mass/Vol] 9.8 mg/dL 7.6-11.0 [facility] Serum or plasma urea nitroge n measurement (mass/volume)Ordered By: Javid Winter on 01-21-2025 Urea nitrogen [Mass/Vol] 13 mg/dL 4-19 [facility] Sodium levelOrdered By: Javid Winter on 01-21-2025 Sodium [Moles/Vol] 134 mmol/L 133-145 [facility] White blood cell (WBC) count Ordered By: Javid Winter on 01-21-2025 WBC (Bld) [#/Vol] 6.1 10*3/uL 4.4-11.0 [facility] CNPNon 01-06-2025 CNPN Telephone (NE50MN) VICTOR HUGO ASIF ([id number]) 1985 M Date Time Provider Department 01/06/25 LEANNA OWENS NE50MN During your visit today, we recorded the following information about you: Leila Lee 01/06/2025 7:34 AM Signed Form received: From (agency / facility): [employer] 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 Owens Forwarded to nurse. Laury Caballero RN 01/06/2025 8:51 AM Signed ALESSIA [...] Message was left requesting a return call. Laury Sutherland RN, RN 01/07/2025 12:52 PM Signed Call was made to the patient, no answer. Message was left requesting a return call. Laury Sutherland RN, RN 01/07/2025 4:27 PM Signed I spoke with Victor Hugo, stated last seizure was February 2023 or 2023 could not remember. ALISA Larios Tanya, RN 01/08/2025 9:41 AM Signed Received notice via DocuSign that form/letter was signed by provider. Laury Caballero RN Allergies As of Date: 01/06/2025 Noted Allergy Reaction BACLOFEN 11/25/2015 14 - Other: See Comments Comments: Migraines and lightheadedness PENICILLIN 10/30/2023 4 - Hives VICODIN (HYDROCODONE-ACETAMINOPHE* 4 - Hives Date Reviewed: 12/20/2024 Reviewed [...] Fibromyalgia [M79.7] 10/22/2021 Limited joint range of (more content not included)... Normal [facility] CNOVon 12-20-2024 CNOV Office Visit (NE50MN ) VICTOR HUGO ASIF ([id number]) 1985 M Date Time Provider Department 12/20/24 9:30 AM LEANNA OWENS NE50MN During your visit today, we recorded the following information about you: Pulse Blood pressure Weight Height 91/minute 149/88 87.5 kg 1.676 m Leanna Owens MD 12/20/2024 12:47 PM Signed [facility] EPILEPSY CLINIC NOTE - RETURN [...] BID for neuropathy. At 10/07/2021 visit with [facility] he reported continued episodes of little seizures [...] UI or TB. He was taken to [facility] where he received 10mg IM versed. Denies triggers (missed doses, sleep deprivation illness). Level of VPA was 89 at [facility]. Seizure Types: 1) little ones [left or bilateral hand/chest/body somatosensory aura] -sometimes with warning (tingling in chest that spreads to the rest of his body), has to stop what he's doing, sit down; may have tingling in left hand prior to chest. With 02/08/2023 seizure he had tingling in both hands prior to chest tingling; seizure th (more content not included)... Normal [facility] CNPNon 07-01-2024 CNPN Telephone (FAMPWS) VICTOR HUGO ASIF ([id number]) 1985 M Date Time Provider Department 07/01/24 [facility] During your visit today, we recorded the following information about you: Nicole Bass APRN.WARRANTY CLERK 07/01/2024 3:36 PM Signed Please call patient [...] 1 month to monitor blood sugars from [facility]. Also, vitamin D level is extremely low. He needs to be taking 50,000 units of vitamin D3 weekly. Rx sent to pharmacy. Thank you, Nicole Bass APRN.WARRANTY CLERK The following approved medication requests have been transmitted electronically. Requested Prescriptions Signed Prescriptions Disp Refills dulaglutide (TRULICITY) 1.5 mg/0.5 mL pen injector 6 mL 0 Sig: Inject 1.5 mg subcutaneously one time a week. Authorizing Provider: NICOLE BASS cholecalciferol, Vitamin D3, (VITAMIN D3) 1,250 mcg (50,000 unit) cap capsule 4 capsule 2 Sig: Take 1 capsule by mouth one time a week. Authorizing Provider: NICOLE BASS APRN.Beverly Olivas LPN 07/01/2024 4:36 PM Signed Left message to return call. Jaimie Egan MA 07/11/2024 10:05 AM Signed [employer] message sent to pt, asking them to [...] lightheadedness PENICILLIN 10/30/2023 4 - Hives VICODIN (HYDROCODONE-ACETAMINOPHE* 4 - Hives Date Reviewed: 06/19/2024 Reviewed by: Love Nguyen APRN.WARRANTY CLERK - Fully Assessed Reason for Visit: Results [95] Primary Visit Diagnosis:Type 2 diabetes mellitus with diabetic neuropathy, with long-term current use of insulin ([facility]) [E11.40, Z79.4] Other Visit Diagnosis:Vitamin D deficiency [E55.9] Order(s):dulaglutide (TRULICITY) 1.5 mg/0.5 mL pen injectorInject 1.5 mg subcutaneously one time a week.Disp: 6 mLRfl: 0 cholecalciferol, Vitamin D3, (VITAMIN D3) 1,250 mcg (50,000 unit) cap capsuleTake 1 capsule by mouth one time a week.Disp: 4 capsuleRfl: 2 VITAMIN D 25 HYDROXY [SQVITD] Order #: [id number] FUTURE Prescriptions as of 07/11/2024 - dulaglutide [...] neuritis or radiculitis*01/29/2015 04/14/2016 Displacement of lumbar inter (more content not included)... Normal [facility] 25(OH)D3 SerPl-mCncon 2024 25-hydroxyvitamin D3 [Mass/Vol] 9.1 ng/mL Low 31.0-80.0 [facility] Comment on above: Order Comment: Speci men Type: BLOOD SPECIMENOrdering Facility: [facility] Address: [address] [place] [address] Result Comment: Clas sification of 25 [place] Vitamin D status: Deficiency/Insufficiency: < or = 30 ng/ml. Sufficiency/Optimal Levels: 31-80 ng/mL Toxicity: > 100 ng/mL. Test performed by chemiluminescent immunoassay. Performed By: #### 1 989-3 ####[facility] LABIA [id number] [place] [address] [place] ALBUMIN/CREATININE RATIO, UR INEon 06-29-2024 Albumin DL <= 20 mg/L (U) [Mass/Vol] 295.3 mg/L Normal [facility] Comment on above: Order Comment: Speci men Type: URINE SPECIMENOrdering Facility: [facility] Address: [address] [place] [address] Performed By: #### U ACR ####[facility] [id number] [address] [place] Albumin/Creatinine (U) [Mass ratio] 255 mg/g High <30 [facility] Comment on above: Order Comment: Speci men Type: URINE SPECIMENOrdering Facility: [facility] Address: [address] [place] [address] Result Comment: Adul t Male and Female Nephrotic Criteria: <30 mg/g is considered normal to mildly increased 30-300 mg/g is considered moderately increased >300 mg/g is considered severely increased KDIGO. (2013). KDIGO 2012 Clinical Practice Guideline for the Evaluation and Management of Chronic Kidney Disease. Official Journal of the International Society of Nephrology, 3(1), 1-150. Performed By: #### U ACR ####[facility]IA [id number] [place] [address] [place] Creatinine (U) [Mass/Vol] 116.0 mg/dL Normal 20.0-300.0 [facility] Comment on above: Order Comment: Speci men Type: URINE SPECIMENOrdering Facility: [facility] Address: [address] [place] [address] Performed By: #### U ACR ####[facility] LABCLIA [id number] [place] [address] [place] CBC panel Auto (Bld)on 06-29 Erythrocyte distribution width (RBC) [Ratio] 12.2 % Normal 11.5-15.0 [facility] Comment on above: Order Comment: Speci men Type: BLOOD SPECIMEN Ordering Facility: [facility] Address: [address] [place] [address] Performed By: #### 5 8410-2 #### [facility] CLIA [id number] [address] [place] [address] [place] Hematocrit (Bld) [Volume fraction] 42.8 % Normal 39.0-51.0 [facility] Comment on above: Order Comment: Speci men Type: BLOOD SPECIMEN Ordering Facility: [facility] Address: [address] [place] [address] Performed By: #### 5 8410-2 #### [facility] CLIA [id number] [address] [place] [address] [place] Hemoglobin (Bld) [Mass/Vol] 13.7 g/dL Normal 13.0-17.0 [facility] Comment on above: Order Comment: Speci men Type: BLOOD SPECIMEN Ordering Facility: [facility] Address: [address] [place] [address] Performed By: #### 5 8410-2 #### [facility] CLIA [id number] [address] [place] [address] [place] MCH (RBC) [Entitic mass] 26.1 pg Normal 26.0-34.0 [facility] Comment on above: Order Comment: Speci men Type: BLOOD SPECIMEN Ordering Facility: [facility] Address: [address] [place] [address] Performed By: #### 5 8410-2 #### [facility] CLIA [id number] [address] [place] [address] [place] MCHC (RBC) [Mass/Vol] 32.0 g/dL Normal 30.5-36.0 [facility] Comment on above: Order Comment: Speci men Type: BLOOD SPECIMEN Ordering Facility: [facility] Address: [address] [place] [address] Performed By: #### 5 8410-2 #### [facility] CLIA [id number] [address] [place] [address] [place] MCV (RBC) [Entitic vol] 81.7 fL Normal 80.0-100.0 [facility] Comment on above: Order Comment: Speci men Type: BLOOD SPECIMEN Ordering Facility: [facility] Address: [address] [place] [address] Performed By: #### 5 8410-2 #### [facility] CLIA [id number] [address] [place] [address] [place] Nucleated RBC (Bld) [#/Vol] 10*3/uL Normal <0.01 [facility] Comment on above: Order Comment: Speci men Type: BLOOD SPECIMEN Ordering Facility: [facility] Address: [address] [place] [address] Performed By: #### 5 8410-2 #### [facility] CLIA [id number] [address] [place] [address] [place] Platelet mean volume (Bld) [Entitic vol] 11.1 fL Normal 9.0-12.7 [facility] Comment on above: Order Comment: Speci men Type: BLOOD SPECIMEN Ordering Facility: [facility] Address: [address] [place] [address] Performed By: #### 5 8410-2 #### [facility] CLIA [id number] [address] [place] [address] [place] Platelets (Bld) [#/Vol] 269 10*3/uL Normal 150-400 [facility] Comment on above: Order Comment: Speci men Type: BLOOD SPECIMEN Ordering Facility: [facility] Address: [address] [place] [address] Performed By: #### 5 8410-2 #### [facility] CLIA [id number] [address] [place] [address] [place] RBC (Bld) [#/Vol] 5.24 10*6/uL Normal 4.20-6.00 [facility] Comment on above: Order Comment: Speci men Type: BLOOD SPECIMEN Ordering Facility: [facility] Address: [address] [place] [address] Performed By: #### 5 8410-2 #### [facility] CLIA [id number] [address] [place] [address] [place] WBC (Bld) [#/Vol] 5.01 10*3/uL Normal 3.70-11.00 [facility] Comment on above: Order Comment: Speci men Type: BLOOD SPECIMEN Ordering Facility: [facility] Address: [address] [place] [address] Performed By: #### 5 8410-2 #### [facility] CLIA [id number] [address] [place] [address] [place] Comprehensive metabolic 2000 panelon 06-29-2024 Albumin [Mass/Vol] 4.3 g/dL Normal 3.9-4.9 [facility] Comment on above: Order Comment: Speci men Type: BLOOD SPECIMENOrdering Facility: [facility] Address: [address] [place] [address] Performed By: #### 2 4323-8, 3016-3, 39158-0 ####[facility] [id number] [address] [address] [place] ALP [Catalytic activity/Vol] 74 U/L Normal 38-113 [facility] Comment on above: Order Comment: Speci men Type: BLOOD SPECIMENOrdering Facility: [facility] Address: [address] [place] [address] Performed By: #### 2 4323-8, 6-3, 36230-0 ####[facility] [id number] [place] [id number] [place] ALT [Catalytic activity/Vol] 21 U/L Normal 10-54 [facility] Comment on above: Order Comment: Speci men Type: BLOOD SPECIMENOrdering Facility: [facility] Address: [address] [place] [address] Performed By: #### 2 4323-8, 3015-3, 25824-0 ####[facility] [id number] [place] [address] [place] Anion gap [Moles/Vol] 9 mmol/L Normal 8-15 [facility] Comment on above: Order Comment: Speci men Type: BLOOD SPECIMENOrdering Facility: [facility] Address: [address] [place] [address] Performed By: #### 2 4323-8, 6-3, 44591-3 ####[facility] [id number] [place] [id number] [place] AST [Catalytic activity/Vol] 31 U/L Normal 14-40 [facility] Comment on above: Order Comment: Speci men Type: BLOOD SPECIMENOrdering Facility: [facility] Address: [address] [place] [address] Performed By: #### 2 4323-8, 6-3, 53218-9 ####[facility] [id number] [place] [address] [place] Bilirubin [Mass/Vol] 0.6 mg/dL Normal 0.2-1.3 [facility] Comment on above: Order Comment: Speci men Type: BLOOD SPECIMENOrdering Facility: [facility] Address: [address] [place] [address] Performed By: #### 2 4323-8, 3016-3, 68672-3 ####[facility] [id number] [place] [address] [place] Calcium [Mass/Vol] 9.5 mg/dL Normal 8.5-10.2 [facility] Comment on above: Order Comment: Speci men Type: BLOOD SPECIMENOrdering Facility: [facility] Address: [address] [place] [address] Performed By: #### 2 4323-8, 6-3, 77423-6 ####[facility] [id number] [place] [address] [place] Chloride [Moles/Vol] 99 mmol/L Normal 98-107 [facility] Comment on above: Order Comment: Speci men Type: BLOOD SPECIMENOrdering Facility: [facility] Address: [address] [place] [address] Performed By: #### 2 4323-8, 6-3, 06495-6 ####[facility] [id number] [place] [address] [place] CO2 [Moles/Vol] 27 mmol/L Normal 22-30 [facility] Comment on above: Order Comment: Speci men Type: BLOOD SPECIMENOrdering Facility: [facility] Address: [address] [place] [address] Performed By: #### 2 4323-8, 6-3, 05285-1 ####[facility] [id number] [place] [place] [address] [place] Creatinine [Mass/Vol] 0.84 mg/dL Normal 0.73-1.22 [facility] Comment on above: Order Comment: Izzy gonzalez Type: BLOOD SPECIMENOrdering Facility: [facility] Address: [address] [place] [address] Performed By: #### 2 4323-8, 3016-3, 96671-0 ####[facility] [id number] [place] [address] [place] Creatinine and Glomerular filtration rate.predicted panel (S/P/Bld) 113 mL/min/1.73m??? Normal >=60 [facility] Comment on above: Order Comment: Izzy gonzalez Type: BLOOD SPECIMENOrdering Facility: [facility] Address: [address] [place] [address] Result Comment: Noemy mated Glomerular Filtration Rate (eGFR) is calculated using the 2020 CKD-EPI creatinine equation. This equation utilizes serum creatinine, sex, and age as parameters. The creatinine assay has traceable calibration to isotope dilution-mass spectrometry. Refer to KDIGO guidelines for clinical interpretation. In patients with unstable renal function, e.g. those with acute kidney injury, the eGFR may not accurately reflect actual GFR. Performed By: #### 2 4323-8, 3016-3, 58551-9 ####[facility] [id number] [place] [address] [place] Glucose [Mass/Vol] 278 mg/dL High 74-99 [facility] Comment on above: Order Comment: Izzy gonzalez Type: BLOOD SPECIMENOrdering Facility: [facility] Address: [address] [place] [address] Result Comment: The [place] Diabetes Association (ADA) provides guidance for cutoff [...] Standards of Medical Care in Diabetes 2016, [place] [employer] Association. Diabetes Care. 2016.39(Suppl 1). Performed By: #### 2 4323-8, 6-3, 32787-3 ####[facility] [id number] [address] [address] [place] Potassium [Moles/Vol] 3.9 mmol/L Normal 3.7-5.1 [facility] Comment on above: Order Comment: Speci men Type: BLOOD SPECIMENOrdering Facility: [facility] Address: [address] [place] [address] Performed By: #### 2 4323-8, 3, 71296-4 ####[facility] [id number] [place] [id number] [place] Protein [Mass/Vol] 7.6 g/dL Normal 6.3-8.0 [facility] Comment on above: Order Comment: Speci men Type: BLOOD SPECIMENOrdering Facility: [facility] Address: [address] [place] [address] Performed By: #### 2 4323-8, 3, ####[facility] [id number] [place] [id number] [place] Sodium [Moles/Vol] 135 mmol/L Low 136-144 [facility] Comment on above: Order Comment: Speci men Type: BLOOD SPECIMENOrdering Facility: [facility] Address: [address] [place] [address] Performed By: #### 2 4323-8, 3, ####[facility] [id number] [address] [address] [place] Urea nitrogen [Mass/Vol] 7 mg/dL Low 9-24 [facility] Comment on above: Order Comment: Speci men Type: BLOOD SPECIMENOrdering Facility: [facility] Address: [address] [place] [address] Performed By: #### 2 4323-8, 3016-3, 51069-6 ####[facility] [id number] [address] [address] [place] Lipid 1996 panelon 5 Cholesterol [Mass/Vol] 178 mg/dL Normal <200 [facility] Comment on above: Order Comment: Speci men Type: BLOOD SPECIMENOrdering Facility: [facility] Address: [address] [place] [address] Result Comment: <200 mg/dL, Desirable 200-239 mg/dL, Borderline high >239 mg/dL, High Performed By: #### 2 4323-8, 3015-3, 69750-3 ####[facility] [id number] [place] [address] [place] Cholesterol in HDL [Mass/Vol] 61 mg/dL Normal >39 [facility] Comment on above: Order Comment: Speci men Type: BLOOD SPECIMENOrdering Facility: [facility] Address: [address] [place] [address] Result Comment: 40-5 9 mg/dL, Acceptable >59 mg/dL, High: Negative risk factor for coronary heart disease <40 mg/dL, Low: Positive risk factor for coronary heart disease Performed By: #### 2 4323-8, 6-3, 70476-0 ####[facility] [id number] [place] [address] [place] Cholesterol in LDL [Mass/Vol] 102 mg/dL High <100 [facility] Comment on above: Order Comment: Speci men Type: BLOOD SPECIMENOrdering Facility: [facility] Address: [address] [place] [address] Result Comment: <100 mg/dL, Optimal 100-129 mg/dL, Near optimal/above optimal 130-159 mg/dL, Borderline high 160-189 mg/dL, High >189 mg/dL, Very high Secondary prevention optimal LDL Cholesterol levels are recommended to be < 70 mg/dL Performed By: #### 2 4323-8, 6-3, 61149-5 ####[facility] [id number] [place] [address] [place] Cholesterol in LDL/Cholesterol in HDL [Mass ratio] 1.67 {ratio} Normal <2.54 [facility] Comment on above: Order Comment: Speci men Type: BLOOD SPECIMENOrdering Facility: [facility] Address: [address] [place] [address] Result Comment: Refe rence: 1. National Cholesterol Education Program ATP III Guideline At-A-Glance Quick Desk Reference: National Heart, Lung, and Blood [place]. National Institutes of Health. 2001: NIH Publication No. 01-3305. 2. An International Atherosclerosis Society position paper: global recommendations for the management of dyslipidemia: executive summary, Atherosclerosis. 2014: 232(2):410-413. Performed By: #### 2 4323-8, 6-3, 61800-0 ####[facility] [id number] [place] [address] [place] Cholesterol in VLDL [Mass/Vol] 15 mg/dL Normal <30 [facility] Comment on above: Order Comment: Davidi men Type: BLOOD SPECIMENOrdering Facility: [facility] Address: [address] [place] [address] Performed By: #### 2 4323-8, 6-3, 71280-7 ####[facility] [id number] [place] [id number] [place] Cholesterol non HDL [Mass/Vol] 117 mg/dL Normal <130 [facility] Comment on above: Order Comment: Speci men Type: BLOOD SPECIMENOrdering Facility: [facility] Address: [address] [place] [address] Result Comment: <130 mg/dL, Optimal 130-159 mg/dL, Near optimal/above optimal 160-189 mg/dL, Borderline high 190-219 mg/dL, High >219 mg/dL, Very high Secondary prevention optimal non HDL Cholesterol levels are recommended to be <100 mg/dL Performed By: #### 2 4323-8, 3016-3, 36239-6 ####[facility] [id number] [place] [address] [place] Cholesterol.total/Cho lesterol in HDL [Mass ratio] 2.92 {ratio} Normal <5.10 [facility] Comment on above: Order Comment: Speci men Type: BLOOD SPECIMENOrdering Facility: [facility] Address: [address] [place] [address] Performed By: #### 2 4323-8, 6-3, 09280-3 ####[facility] [id number] [address] [place] FASTING TIME 12 hrs Normal [facility] Comment on above: Order Comment: Speci men Type: BLOOD SPECIMENOrdering Facility: [facility] Address: [address] [place] [address] Performed By: #### 2 4323-8, 6-3, 10418-0 ####[facility] [id number] [place] [address] [place] Triglyceride [Mass/Vol] 73 mg/dL Normal <150 [facility] Comment on above: Order Comment: Speci men Type: BLOOD SPECIMENOrdering Facility: [facility] Address: [address] [place] [address] Result Comment: <150 mg/dL, Normal 150-199 mg/dL, Borderline high 200-499 mg/dL, High >499 mg/dL, Very high Performed By: #### 2 4323-8, 6-3, 48564-4 ####[facility] [id number] [place] [address] [place] TSH SerPl-aCncon 06-29-2024 TSH Qn 1.510 m[IU]/L Normal 0.270-4.20 0 [facility] Comment on above: Order Comment: Speci men Type: BLOOD SPECIMENOrdering Facility: [facility] Address: [address] [place] [address] Performed By: #### 2 4323-8, 3016-3, 58232-5 ####[facility] [id number] [id number] [id number] [facility] CNOVon 06-19-2024 CNOV Office Visit (FAMPWS ) VICTOR HUGO ASIF ([id number]) 1985 [facility] Date Time Provider Department 06/19/24 8:20 AM [facility] During your visit today, we recorded the following information about you: Pulse Respiration Blood pressure Weight 78/minute 16/minute 138/86 92.4 kg Height 1.645 m Love Nguyen APRN.WARRANTY CLERK 06/19/2024 10:10 AM Signed Chief Complaint Patient [...] his medications because he just doesn't care. 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 cholecal (more content not included)... Normal [facility] 06-19-2024 [facility]IF [facility][id number][facility] 1985 [facility] Date Time Provider Department 06/19/24 RANJIT AZAR [facility] During your visit today, we recorded the following information about you: Young Carson, RN 06/19/2024 2:02 PM Signed [facility] reports: 1) Rec'vd Rx for Freestyle [...] just do the 1 ml dose. Love Nguyen APRN.CHRIS 06/19/2024 6:01 PM Signed Marlene, I [...] Each 0 Si Each continuous. Authorizing Provider: RANJIT AZAR Ordering User: LOVE NGUYEN APRN.Elise Castro MA 06/20/2024 10:52 AM Signed Pharmacy reports 240mg not covered by insurance. Need to complete PA. Will forward to PA nurse. MUNA Doshi Rebekah, APRN.CHRIS 06/20/2024 10:59 AM Signed Noted, thank you. Love Nguyen APRN.Lary Barriga LPN 06/20/2024 11:02 AM Signed [employer] PA completed for first dose of 120mg 2ml. Then 120mg 1ml monthly(this was already approved) Lary Mora LPN 06/20/2024 11:36 AM Signed Prior authorization approved Payer: Kwesi Note from payer: CARLOS Case: [id number], Status: Approved, Coverage Starts on: 06/20/2024 12:00:00 AM, Coverage Ends on: 07/18/2024 12:00:00 AM. Approval Details Authorization number: [id number] Authorized from June 20, 2024 to July [...] to its destination. To be filled at: [facility] - [address] [place] [address] - [address] [phone] Pharmacy notified. Allergies As of Date: 06/19/2024 Noted Allergy Reaction BACLOFEN 11/25/2015 14 - Other: See Comments Comments: Migraines and lightheadedness PENICILLIN 10/30/2023 4 - Hives VICODIN (HYDROCODONE-ACETAMINOPHE* 4 - Hives Date Reviewed: 06/19/2024 Reviewed by: Love Nguyen APRN.WARRANTY CLERK - Fully Assessed Reason for Visit: Medication [...] 06/17/2014 Candidal balanitis [B37.42] 08/25/2014 Phimosis [N47.1] (more content not included)... Normal [facility] HEMOGLOBIN A1C (POC)on 06-19 HbA1c (Bld) [Mass fraction] 12.4 % Abnormal 4.3 - 5.6 % [facility] Comment on above: Location:[facility], [address] [place] [address], [place], [address] Point of care (POC) Hemoglobin A1c (HGBA1C) testing is intended to assess glucose control and provide a management tool for patients known to have diabetes and their healthcare providers. Target HGBA1C levels may depend on specific clinical circumstances. POC HGBA1C is not intended for use as a diagnostic or screening test; laboratory-based testing should be used for diagnostic purposes. The following information is supplemental and may not be applicable to specific diabetes management situations: The POC device mapper provides a normal range of 4.2% to 6.5% for the HGBA1C POC test. However, the [place] Diabetes Association guidelines indicate that patients with HGBA1C in the range of 5.7% to 6.4% are at increased risk for development of diabetes and that intervention by lifestyle modification may be beneficial. A HGBA1C level greater than or equal to 6.5% is considered diagnostic of diabetes, pending confirmatory testing. Use of HGBA1C testing to evaluate glucose control may not be appropriate for patients with hemoglobin variants or other conditions (e.g. anemia) that alter red blood cell lifespan. Interpretation and review of laboratory results Abnormal [facility] Basophil percentageOrdered B y: Chavez Cameron on 05-31-2023 Chloride [Moles/Vol] 102 mmol/L 98-107 [facility] Glucose [Mass/Vol] 213 mg/dL 74-106 [facility] Comment on above: Glucose result great er than or equal to 200 mg/dLsuggests DIABETES MELLITUS per A.D.A. criteria. Potassium [Moles/Vol] 3.7 mmol/L 3.5-5.1 [facility] Sodium [Moles/Vol] 135 mmol/L 136-145 [facility] HCO3 (BldA) [Moles/Vol]Order ed By: Chavez Cameron on 05-31-2023 HCO3 (Bld) [Moles/Vol] 25 mmol/L 22-26 [facility] - Chemistry and C hemistry - challengeOrdered By: Chavez Cameron on 05-31-2023 CO2 [Moles/Vol] 26 mmol/L 23-33 [facility] CK [Catalytic activity/Vol] 516 U/L 39-308 [facility] CO2 [Moles/Vol] 29.0 mmol/L 21.0-32.0 [facility] Magnesium [Mass/Vol] 2.5 mg/dL 1.6-2.6 [facility] Urea nitrogen/Creatinine [Mass ratio] 10.4 mg/mg 10-20 [facility] No Panel InformationOrdered By: Chavez Cameron on 05-31-2023 Bed Mix Venous Bld PCO2 at Pat Temp 32.3 mmHg 41-51 [facility] Blood Gas Sample Site Not entered [facility] Blood Gas Specimen Type CHAGO [facility] Oxygen Delivery Device Not entered [facility] Venous Blood Base Excess 2 mmol/L -1.0-3.5 [facility] Estimated GFR (MDRD) Amer 70 mL/min >60 [facility] Comment on above: GFR Calc Estimated GFR (MDRD) Non-Af Amer 58 mL/min >60 [facility] Comment on above: Non- GFR Calc PO2 venousOrdered By: Lucille Cameron on 05-31-2023 Oxygen (BldV) [Partial pressure] 34 mm[Hg] 25-40 [facility] Serum or plasma calcium yanelis urement (mass/volume)Ordered By: Chavez Cameron on 05-31-2023 Calcium [Mass/Vol] 10.6 mg/dL 8.5-10.1 [facility] Serum or plasma creatinine m easurement (mass/volume)Ordered By: Chavez Cameron on 05-31-2023 Creatinine [Mass/Vol] 1.44 mg/dL 0.70-1.30 [facility] Comment on above: The validity of the calculated GFR & GFRAA in patients over 70 years has not been determined. Clinical correlation is essential. Serum or plasma urea nitroge n measurement (mass/volume)Ordered By: Chavez Cameron on 05-31-2023 Urea nitrogen [Mass/Vol] 15 mg/dL 7-18 [facility] Thin prep Papanicolaou smear with manual screeningOrdered By: Chavez Cameron on 05-31-2023 Thin prep Papanicolaou smear with manual screening 4 5-15 [facility] Vital signsOrdered By: Lauri Cameron on 05-31-2023 Oxygen saturation in Blood 72 % 50-70 [facility] pH measurementOrdered By: Christopher Cameron on 05-31-2023 pH (Unsp spec) 7.50 [pH] 7.32-7.42 [facility] Absolute lymphocyte countOrd ered By: Hoa Haskins on 02-09-2023 Lymphocytes Auto (Unsp spec) [#/Vol] 2.23 10*3/uL 0.83-4.51 [facility] Basophil percentageOrdered B y: Hoa Haskins on 02-09-2023 Basophils/100 WBC (Bld) 0.9 % 0-1 [facility] Chloride [Moles/Vol] 106 mmol/L 98-107 [facility] Eosinophils/100 WBC (Bld) 2.3 % 0-5 [facility] Glucose [Mass/Vol] 174 mg/dL 74-106 [facility] Comment on above: Fasting Glucose resu lt greater than or equal to 126 mg/dL suggests DIABETES MELLITUS per A.D.A. criteria. Neutrophils (Bld) [#/Vol] 2.8 10*3/uL 2.0-7.7 [facility] Neutrophils/100 WBC (Bld) 49.6 % 47-70 [facility] Potassium [Moles/Vol] 3.4 mmol/L 3.5-5.1 [facility] Sodium [Moles/Vol] 137 mmol/L 136-145 [facility] WBC (Bld) [#/Vol] 5.7 10*3/uL 4.4-11.0 [facility] Blood erythrocytes count (nu mber/volume)Ordered By: Hoa Haskins on 02-09-2023 RBC (Bld) [#/Vol] 4.84 10*6/uL 4.6-6.2 [facility] Blood hemoglobin measurement (mass/volume)Ordered By: Hoa Haskins on 02-09-2023 Hemoglobin (Bld) [Mass/Vol] 12.8 g/dL 13.0-16.5 [facility] Blood lymphocytes/100 leukoc ytesOrdered By: Hoa Haskins on 02-09-2023 Lymphocytes/100 WBC (Bld) 39.0 % 19-41 [facility] Blood monocytes/100 leukocyt esOrdered By: Hoa Haskins on 02-09-2023 Monocytes/100 WBC (Bld) 7.9 % 0-10 [facility] Blood platelet mean volumeOr dered By: Hoa Haskins on 02-09-2023 Platelet mean volume (Bld) [Entitic vol] 11.2 fL 6.2-12.0 [facility] Determination of erythrocyte mean corpuscular volume (MCV)Ordered By: Hoa Haskins on 02-09-2023 MCV (RBC) [Entitic vol] 83.3 fL 80-94 [facility] Hematocrit Auto (Bld) [Volum e fraction]Ordered By: Hoa Haskins on 02-09-2023 Hematocrit (Bld) [Volume fraction] 40.3 % 40-54 [facility] - Chemistry and C hemistry - challengeOrdered By: Hoa Haskins on 02-09-2023 CO2 [Moles/Vol] 27.0 mmol/L 21.0-32.0 [facility] Urea nitrogen/Creatinine [Mass ratio] 14.3 mg/mg 10-20 [facility] - Hematology and Cell countsOrdered By: Hoa Haskins on 02-09-2023 Erythrocyte distribution width (RBC) [Entitic vol] 37.2 fL 35.1-43.9 [facility] Erythrocyte distribution width (RBC) [Ratio] 12.2 % 11.6-14.6 [facility] Immature granulocytes/100 WBC (Bld) 0.300 % 0.0-0.9 [facility] Comment on above: IG% - Immature Granu locytes (promyelocytes, myelocytes and metamyelocytes) > 1% indicates that a LEFT SHIFT is Present. MCH (RBC) [Entitic mass] 26.4 pg 27.0-32.0 [facility] Nucleated RBC/100 WBC (Bld) [Ratio] 0 % 0-5 [facility] MCHC Auto (RBC) [Mass/Vol]Or dered By: Hoa Haskins on 02-09-2023 MCHC (RBC) [Mass/Vol] 31.8 g/dL 32-36 [facility] No Panel InformationOrdered By: Hoa Haskins on 02-09-2023 Estimated Creatinine Clearance Calc 102.70 ml/min [facility] Estimated GFR (MDRD) Amer 131 mL/min >60 [facility] Comment on above: GFR Calc Estimated GFR (MDRD) Non-Af Amer 108 mL/min >60 [facility] Comment on above: Non- GFR Calc Platelets bldOrdered By: Batsheva Haskins on 02-09-2023 Platelets (Bld) [#/Vol] 230 10*3/uL 150-450 [facility] Serum or plasma calcium yanelis urement (mass/volume)Ordered By: Hoa Haskins on 02-09-2023 Calcium [Mass/Vol] 8.8 mg/dL 8.5-10.1 [facility] Serum or plasma creatinine m easurement (mass/volume)Ordered By: Hoa Haskins on 02-09-2023 Creatinine [Mass/Vol] 0.84 mg/dL 0.70-1.30 [facility] Comment on above: The validity of the calculated GFR & GFRAA in patients over 70 years has not been determined. Clinical correlation is essential. Serum or plasma urea nitroge n measurement (mass/volume)Ordered By: Hoa Haskins on 02-09-2023 Urea nitrogen [Mass/Vol] 12 mg/dL 7-18 [facility] Thin prep Papanicolaou smear with manual screeningOrdered By: Hoa Edgardociara on 02-09-2023 Thin prep Papanicolaou smear with manual screening 4 5-15 [facility] Absolute lymphocyte countOrd ered By: Jah Santiago on 02-08-2023 Lymphocytes Auto (Unsp spec) [#/Vol] 2.60 10*3/uL 0.83-4.51 [facility] Basophil percentageOrdered B y: Hoa Haskins on 02-08-2023 Basophil percentage < 10.0 umol/L 11-32 [facility] Bilirubin [Mass/Vol] 0.60 mg/dL 0.20-1.00 [facility] Comment on above: For patients on eltr ombopag therapy, use of Dimension [place] TBIL is not recommended. Protein [Mass/Vol] 8.5 g/dL 6.4-8.2 [facility] Basophil percentageOrdered B y: Jah Santiago on 02-08-2023 Basophils/100 WBC (Bld) 0.7 % 0-1 [facility] Chloride [Moles/Vol] 104 mmol/L 98-107 [facility] Eosinophils/100 WBC (Bld) 0.7 % 0-5 [facility] Glucose [Mass/Vol] 197 mg/dL 74-106 [facility] Comment on above: Fasting Glucose resu lt greater than or equal to 126 mg/dL suggests DIABETES MELLITUS per A.D.A. criteria. Neutrophils (Bld) [#/Vol] 3.7 10*3/uL 2.0-7.7 [facility] Neutrophils/100 WBC (Bld) 54.5 % 47-70 [facility] Potassium [Moles/Vol] 3.7 mmol/L 3.5-5.1 [facility] Sodium [Moles/Vol] 136 mmol/L 136-145 [facility] WBC (Bld) [#/Vol] 6.8 10*3/uL 4.4-11.0 [facility] Blood erythrocytes count (nu mber/volume)Ordered By: Jah Santiago on 02-08-2023 RBC (Bld) [#/Vol] 5.40 10*6/uL 4.6-6.2 [facility] Blood hemoglobin measurement (mass/volume)Ordered By: Jah Santiago on 02-08-2023 Hemoglobin (Bld) [Mass/Vol] 14.2 g/dL 13.0-16.5 [facility] Blood lymphocytes/100 leukoc ytesOrdered By: Jah Santiago on 02-08-2023 Lymphocytes/100 WBC (Bld) 38.5 % 19-41 [facility] Blood monocytes/100 leukocyt esOrdered By: Jah Santiago on 02-08-2023 Monocytes/100 WBC (Bld) 5.2 % 0-10 [facility] Blood platelet mean volumeOr dered By: Jah Santiago on 02-08-2023 Platelet mean volume (Bld) [Entitic vol] 11.6 fL 6.2-12.0 [facility] Determination of erythrocyte mean corpuscular volume (MCV)Ordered By: Jah Santiago on 02-08-2023 MCV (RBC) [Entitic vol] 81.1 fL 80-94 [facility] Direct bilirubinOrdered By: Hoa Haskins on 02-08-2023 Bilirubin.direct [Mass/Vol] 0.17 mg/dL 0.00-0.30 [facility] Glucose Glucometer (dC) [M ass/Vol]Ordered By: Hoa Haskins on 02-08-2023 Glucose [Mass/Vol] 243 mg/dL 74-106 [facility] Comment on above: MANAGEMENT OF PATIEN T CARE PER NURSING PROTOCOL Hematocrit Auto (Bld) [Volum e fraction]Ordered By: Jah Santiago on 02-08-2023 Hematocrit (Bld) [Volume fraction] 43.8 % 40-54 [facility] - Chemistry and C hemistry - challengeOrdered By: Hoa Haskins on 02-08-2023 ALP [Catalytic activity/Vol] 73 U/L 45-117 [facility] ALT [Catalytic activity/Vol] 27 U/L 16-61 [facility] Globulin (S) [Mass/Vol] 4.8 g/dL 2.2-4.2 [facility] - Chemistry and C hemistry - challengeOrdered By: Jah Santiago on 02-08-2023 CO2 [Moles/Vol] 23.0 mmol/L 21.0-32.0 [facility] Urea nitrogen/Creatinine [Mass ratio] 10.1 mg/mg 10-20 [facility] - Drug toxicology Ordered By: Hoa Haskins on 02-08-2023 Amphetamines Ql (U) Negative <1000 ng/mL [facility] Benzodiazepines Ql (U) Positive < 200 ng/mL [facility] Cannabinoids Screen Ql (U) Negative < 50 ng/mL [facility] Cocaine Ql (U) Negative < 300 ng/mL [facility] Opiates Ql (U) Negative < 300 ng/mL [facility] - Hematology and Cell countsOrdered By: Jah Santiago on 02-08-2023 Erythrocyte distribution width (RBC) [Entitic vol] 36.8 fL 35.1-43.9 [facility] Erythrocyte distribution width (RBC) [Ratio] 12.4 % 11.6-14.6 [facility] Immature granulocytes/100 WBC (Bld) 0.400 % 0.0-0.9 [facility] Comment on above: IG% - Immature Granu locytes (promyelocytes, myelocytes and metamyelocytes) > 1% indicates that a LEFT SHIFT is Present. MCH (RBC) [Entitic mass] 26.3 pg 27.0-32.0 [facility] Nucleated RBC/100 WBC (Bld) [Ratio] 0 % 0-5 [facility] MCHC Auto (RBC) [Mass/Vol]Or dered By: Jah Santiago on 02-08-2023 MCHC (RBC) [Mass/Vol] 32.4 g/dL 32-36 [facility] No Panel InformationOrdered By: Hoa Haskins on 02-08-2023 MDMA (Ecstasy) Screen Negative < 500 ng/mL [facility] Urine Barbiturates Screen Negative < 200 ng/mL [facility] Urine Drug Screen Comment [facility] Comment on above: CONFIRMATORY TESTING FOR ALL POSITIVE URINE DRUG SCREENRESULTS WILL ONLY BE SENT OUT UPON PHYSICIAN ORDER. VISTA Urine Drug Screen methods provide only preliminaryanalytical test results. A more specific alternate chemicalmethod must be used in order to obtain a confirmedanalytical result. Gas chromatography/mass spectrometery(GC/MS) is the preferred confirmatory method. Clinicalconsideration and professional judgement should be appliedto any drug of abuse test result, particularly whenpreliminary positive results are used. URINE TCA TESTING MUST BE ORDERED SEPARATELY. USE TESTMNEMONIC: [facility] Urine Methadone Screen Negative < 300 ng/mL [facility] No Panel InformationOrdered By: Jah Santiago on 02-08-2023 Estimated Creatinine Clearance Calc 57.90 ml/min [facility] Estimated GFR (MDRD) Amer 67 mL/min >60 [facility] Comment on above: GFR Calc Estimated GFR (MDRD) Non-Af Amer 56 mL/min >60 [facility] Comment on above: Non- GFR Calc Valproic Acid (Depakene) Level 89 ug/mL 50-100 [facility] Platelets bldOrdered By: Jah Santiago on 02-08-2023 Platelets (Bld) [#/Vol] 283 10*3/uL 150-450 [facility] Serum or plasma albumin yanelis urement (mass/volume)Ordered By: Hoa Haskins on 02-08-2023 Albumin [Mass/Vol] 3.7 g/dL 3.2-5.0 [facility] Serum or plasma calcium yanelis urement (mass/volume)Ordered By: Jah Santiago on 02-08-2023 Calcium [Mass/Vol] 9.9 mg/dL 8.5-10.1 [facility] Serum or plasma creatinine m easurement (mass/volume)Ordered By: Jah Santiago on 02-08-2023 Creatinine [Mass/Vol] 1.49 mg/dL 0.70-1.30 [facility] Comment on above: The validity of the calculated GFR & GFRAA in patients over 70 years has not been determined. Clinical correlation is essential. Serum or plasma urea nitroge n measurement (mass/volume)Ordered By: Jah Santiago on 02-08-2023 Urea nitrogen [Mass/Vol] 15 mg/dL 7-18 [facility] Thin prep Papanicolaou smear with manual screeningOrdered By: Jah Santiago on 02-08-2023 Thin prep Papanicolaou smear with manual screening 9 5-15 [facility] Thin prep Papanicolaou smear with manual screeningOrdered By: Hoa Haskins on 02-08-2023 Thin prep Papanicolaou smear with manual screening 32 U/L 15-37 [facility] Urine phencyclidine (PCP) de tectionOrdered By: Hoapayton Haskins on 02-08-2023 Phencyclidine Ql (U) Negative < 25 ng/mL [facility] HEMOGLOBIN A1C (POC)on 01-30 HbA1c (Bld) [Mass fraction] 10.9 % Abnormal 4.2 - 5.6 % [facility] MRI BRAIN WO IVCONon 023 [facility] XR ANKLE GENERAL 3V AP/LAT/O BL BILATERALon 08-01-2022 [facility] NITRIC OXIDE, EXHALEDon 01-04 [facility] Basophil percentageon 2021 Basophil percentage 0-5 SEEN /hpf 0-5 [facility] Work Phone: Bilirubin Test strip Ql (U)o n 12-18-2021 Bilirubin Ql (U) Negative Negative [facility] Work Phone: Ketones Test strip Ql (U)on 12-18-2021 Ketones Ql (U) 5 mg/dl Negative [facility] Work Phone: Mucus LM Ql (Urine sed)on Mucus Ql (Urine sed) 0 SEEN /hpf [facility] Work Phone: Nitrite Test strip Ql (U)on 12-18-2021 Nitrite Ql (U) Negative Negative [facility] Work Phone: Protein Test strip Ql (U)on 12-18-2021 Protein Ql (U) 100 mg/dl Negative [facility] Work Phone: Squamous epithelial cells de tection in urine sediment by light microscopyon 12-18-2021 Epithelial cells.squamous LM Ql (Urine sed) 0 SEEN /hpf 0-5 [facility] Work Phone: Urine blood detectionon 12-03 RBC Ql (U) Negative Negative [facility] Work Phone: RBC Ql (U) 0 SEEN /hpf 0-5 [facility] Work Phone: Urine clarityon 12-18-2021 Clarity (U) Sl. Cloudy Clear [facility] Work Phone: Urine color determinationon 12-18-2021 Color (U) Yellow Yellow [facility] Work Phone: Urine glucose detectionon Glucose Ql (U) 250 mg/dl Normal [facility] Work Phone: Urine leukocyte esterase det ection by dipstickon 12-18-2021 Leukocyte esterase Test strip Ql (U) 25 /ul Negative [facility] Work Phone: Urine pHon 12-18-2021 pH (U) 5.0 [pH] 5.0 - 8.0 [facility] Work Phone: Urine sediment bacteria coun t by microscopy (number/high power field)on 12-18-2021 Bacteria LM.HPF (Urine sed) [#/Area] 0 /[HPF] None Seen [facility] Work Phone: Urine specific gravity measu rementon 12-18-2021 Specific gravity (U) [Rel density] 1.020 1.002-1.03 0 [facility] Work Phone: Urobilinogen Auto test strip Ql (U)on 12-18-2021 Urobilinogen Ql (U) 4 mg/dl Normal [facility] Work Phone: ESR Westergren method (Bld) [Velocity]on 10-22-2021 ESR (Bld) [Velocity] 27 mm/h High 0 - 15 mm/hr [facility] ANES POSTPROC EVALon 022 ANES POSTPROC EVAL HNO ID: [id number] Author: Shanelle Olivares MD Service: ? Author Type: Anesthesiologist Type: Anesthesia Postprocedure Evaluation Filed: 09/20/2021 9:11 AM Note Text: POST ANESTHESIA EVALUATION NOTE : 1985 Procedure Summary Date: 09/20/21 Room / Location: [facility] OR03 / [facility] OR Anesthesia Start: 728 Anesthesia Stop: 810 Procedure: INJECT ANKLE (Bilateral Ankle) Diagnosis: Ankle arthritis Surgeons: Ray Yanez Responsible Provider: Shanelle Olivares MD Anesthesia Type: MAC ASA Status: 3 Anesthesia Type: MAC Last Vitals Vitals Value Taken Time BP 138/83 09/20/21 0900 Temp 36.2 ?C (97.2 ?F) 09/20/21 0809 HR SpO2 96 09/20/21 0809 Resp 16 09/20/21 0809 SpO2 99 % 09/20/21 0903 Vitals shown include unvalidated device data. Post Anesthesia Patient Status Patient Evaluation: PACU. PACU/ICU Patient Condition: stable. Anticipated Disposition: phase 2 then home. Neurological Status: aware and responsive. Pulmonary Status: breathing comfortably on room air Airway Control: returned to baseline unsupported. Cardiovascular Status: stable. Pain Management: clinically adequate - multimodal analgesia pain management approach Postoperative Hydration: acceptable. Intraoperative Events: no significant anesthesia events Post Operative Nausea/Vomiting Status: no significant post operative nausea or vomiting Anesthetic Observations: Recommendation: continue current plan of care. Anesthesia Observations No Documentation SIGNATURE: Shanelle Olivares MD PATIENT NAME: Victor Hugo Asif DATE: September 20, 2021 TIME: 9:10 AM CSN: [id number] [facility] ANES PRE-OPon 09-20-2021 ANES PRE-OP HNO ID: [id number] Author: Shanelle Olivares MD Service: ? Author Type: Anesthesiologist Type: Anesthesia Preprocedure Evaluation Filed: 09/20/2021 6:49 AM Note Text: ANESTHESIOLOGY DAY OF SURGERY NOTE : 1985 Procedure Information Date/Time: 09/20/21729 Procedure: INJECT ANKLE (Bilateral Ankle) Location: [facility]03 [facility] Surgeons: Ray Yanez Estimated body mass index is 39.61 kg/m? as calculated from the following: Height as of this encounter: 165.1 cm (5' 5). Weight as of this encounter: 108 kg (238 lb). Most recent hematocrit and potassium results: Hematocrit 40.8 09/03/2021 Potassium 3.7 09/03/2021 Relevant Problems ANESTHESIA (+) PILAR (obstructive sleep apnea) CARDIO (+) Essential hypertension ENDO (+) Type 2 diabetes mellitus with diabetic neuropathy, with long-term current use of insulin (HCC) NEURO-PSYCH (+) Headache (+) Seizure disorder (HCC) PULMONARY (+) Asthma (+) PILAR (obstructive sleep apnea) I - PHYSICAL EVALUATION AIRWAY Patient intubated: No. Tracheostomy tube not present Mallampati: II. TM distance: >3 FB. Neck ROM: full ROM without neurological symptoms. Mouth opening: adequate. Short neck: no. Thick neck: no DENTAL Dental findings: missing tooth/teeth. Additional exam findings: yes. CARDIOVASCULAR Rhythm: regular Rate: normal PULMONARY Breath sounds clear to auscultation. ABDOMINAL Obese: obesity present. II - ANESTHESIA PLAN ASA Score: 3 Anesthetic Plan: MAC The patient is not a current smoker. NPO Status: adequate Monitoring plan: standard ASA. Postoperative analgesic plan: multimodal analgesia. Informed Consent Anesthetic risks, benefits, alternatives, personnel and consent discussed: yes. Patient / Responsible Alliance Party agrees to proceed: yes Patient / Surrogate agrees to blood products: blood products not planned DNR status not reviewed with patient and/or family prior to surgery. Significant changes in the patient condition since the History and Physical, not otherwise documented in primary service progress note: no. Potential Anesthesia issues that may suggest increased risk of complications or contraindication to planned procedure: none. Vitals Value Taken Time BP 178/109 09/20/21 0635 Pulse 76 09/20/21 0635 Resp 16 09/20/21 0635 Temp 36.5 ?C (97.7 ?F) 09/20/21 0635 SpO2 100 % 09/20/21 0635 Facility-Administered Medications as of 09/20/2021 Medication Dose Route Frequency - lidocaine 10 mg/mL (1 %) 1-2 mg injection (XYLOCAINE) 0.1-0.2 mL INTRADERMAL PRN - lactated ringers iv infusion 5-30 mL/hr INTRAVENOUS CONTINUOUS - acetaminophen 1,000 mg tab(s) (TYLENOL) 1,000 mg ORAL Pre-Op Once Outpatient Medications as of 09/20/2021 Medication Sig - metFORMIN ER (GLUCOPHAGE XR) 500 mg 24 hr tablet Take 2 tablets by mouth in the morning and 2 tablets in the evening. LACTOSE FREE - divalproex ER (DEPAKOTE ER) 500 mg 24 hr tablet Take 4 tablets by mouth daily at bedtime. - lisinopril (ZESTRIL, PRINIVIL) 40 mg tablet Take 1 tablet by mouth once daily. - DULoxetine (CYMBALTA) 60 mg capsule Take 1 capsule by mouth once daily. - insulin aspart U-100 (NOVOLOG FLEXPEN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 creatinine, or treatment with medications that affect renal tubular creatinine secretion. GFR/1.73 sq M predicted among blacks MDRD (S/P/Bld) [Vol rate/Area] mL/min/{1.73_m2} >60 mL/min [place] Glucose [Mass/Vol] 309 mg/dL High 70 - 100 mg/dL [place] Interpretation and review of laboratory results Abnormal [place] Potassium [Moles/Vol] 4.6 mmol/L 3.5 - 5.1 mmol/L [place] Sodium [Moles/Vol] 131 mmol/L Low 135 - 145 mmol/L [place] Urea nitrogen [Mass/Vol] 11 mg/dL 7 - 20 mg/dL [place] Test Performed by [address] [address] [place], [place] CBCon 12-31-2019 Erythrocyte distribution width (RBC) [Ratio] 14.1 % 11.5 - 14.5 % [place] Hematocrit (Bld) [Volume fraction] 39.8 % Low 40 - 52 % [place] Hemoglobin (Bld) [Mass/Vol] 12.8 g/dL Low 13 - 18 g/dL [place] Interpretation and review of laboratory results Abnormal [place] MCH (RBC) [Entitic mass] 26.5 pg 26 - 34 pg [place] MCHC (RBC) [Mass/Vol] 32.1 % 32 - 36 % [place] MCV (RBC) [Entitic vol] 82.6 fL 80 - 98 fL [place] Platelet mean volume (Bld) [Entitic vol] 9.0 fL 7.4 - 10.4 fL [place] Platelets (Bld) [#/Vol] 210 10*3/uL 140 - 440 10*3/uL [place] RBC (Bld) [#/Vol] 4.83 10*6/uL 4.4 - 5.9 10*6/uL [place] WBC (Bld) [#/Vol] 12.4 10*3/uL High 3.6 - 10.7 10*3/uL [place] Test Performed by [facility], [address] [place] [id number] [place] [address] Hemogramon 12-31-2019 Erythrocyte distribution width (RBC) [Ratio] 14.1 % Normal 11.5-14.5 [facility] Comment on above: Performed By: #### H EMOKenna BMP3 #### [address] [address] [place], [place] Hematocrit (Bld) [Volume fraction] 39.8 % Low 40.0-52.0 [facility] Comment on above: Performed By: #### H EMOG, BMP3 #### [facility] [address] [place], [place] Hemoglobin (Bld) [Mass/Vol] 12.8 g/dL Low 13.0-18.0 [facility] Comment on above: Performed By: #### H EMOG, BMP3 #### [address] [address] [place], [place] MCH (RBC) [Entitic mass] 26.5 pg Normal 26.0-34.0 [facility] Comment on above: Performed By: #### H EMOG, BMP3 #### [address] [address] [place], [place] MCHC (RBC) [Mass/Vol] 32.1 % Normal 32.0-36.0 [facility] Comment on above: Performed By: #### H MARILY BMP3 #### [address] [address] [address] [place], [place] MCV (RBC) [Entitic vol] 82.6 fL Normal 80.0-98.0 [facility] Comment on above: Performed By: #### H MARILY BMP3 #### [address] [address] [address] [place], [place] Platelet mean volume (Bld) [Entitic vol] 9.0 fL Normal 7.4-10.4 [facility] Comment on above: Performed By: #### H MARILY BMP3 #### [address] [address] [place], [place] Platelets (Bld) [#/Vol] 210 10*3/uL Normal 140-440 [facility] Comment on above: Performed By: #### H MARILY BMP3 #### [address] [address] [address] [place], [place] RBC (Bld) [#/Vol] 4.83 10*6/uL Normal 4.40-5.90 [facility] Comment on above: Performed By: #### H MARILY BMP3 #### [address] WBC (Bld) [#/Vol] 12.4 10*3/uL High 3.6-10.7 [facility] Comment on above: Performed By: #### H MARILY BMP3 #### [address] [address] [address] [place], [place] Basic Metabolic Panelon 07-2 -2019 Calcium [Mass/Vol] 8.9 mg/dL Normal 8.4-10.4 [facility] Comment on above: Performed By: #### H ROHIT BMP3M #### [address] Glucose [Mass/Vol] 160 mg/dL High 70-100 [facility] Comment on above: Performed By: #### H ROHIT BMP3M #### [address] [address] [address] [place], [place] Urea nitrogen [Mass/Vol] 8 mg/dL Normal 7-20 [facility] Comment on above: Performed By: #### H GHCT, BMP3M #### [facility] [address] [place], [place] Anion gap [Moles/Vol] 7 Normal [facility] Comment on above: Performed By: #### H GHCT, BMP3M #### [facility] [address] [place], [place] CO2 [Moles/Vol] 24 mmol/L Normal 22-30 [facility] Comment on above: Performed By: #### H GHCT, BMP3M #### [address] [address] [address] [place], [place] Creatinine [Mass/Vol] 0.59 mg/dL Normal 0.52-1.25 [facility] Comment on above: Performed By: #### H GHCT, BMP3M #### [address] [address] [address] [place], [place] GFR/1.73 sq M predicted among blacks MDRD (S/P/Bld) [Vol rate/Area] mL/min/{1.73_m2} Normal >60 [facility] Comment on above: Performed By: #### H GHCT, BMP3M #### [address] [address] [address] [place], [place] GFR/1.73 sq M predicted among non-blacks MDRD (S/P/Bld) [Vol rate/Area] mL/min/{1.73_m2} Normal >60 [facility] Comment on above: Result Comment: KDIG O guidelines provide the following GFR categories: Stage GFR(ml/min/1.73 m2) Terms G1 >=90 Normal or high G2 60-89 Mildly decreased* G3a 45-59 Mildly to moderately decreased G3b 30-44 Moderately to severely decreased G4 15-29 Severely decreased G5 <15 Kidney failure *Relative to young adult level. In the absence of evidence of kidney damage, neither GFR category G1 nor G2 fulfill the criteria for CKD. The CKD-EPI equation is validated in individuals 18 years of age and older. Currently the best equation for estimating glomerular filtration rate (GFR) from serum creatinine in children is the Bedside Floyd equation. It is less accurate in patients with extremes of muscle mass, restriction of dietary protein, ingestion of creatine, extra-renal metabolism of creatinine, or treatment with medications that affect renal tubular creatinine secretion. Performed By: #### H GHCT BMP3M #### [facility] [address] [place] [address] Chloride [Moles/Vol] 101 mmol/L Normal 98-107 [facility] Comment on above: Performed By: #### H GHCT, BMP3M #### [facility] [address] [place] [address] Potassium [Moles/Vol] 4.0 mmol/L Normal 3.5-5.1 [facility] Comment on above: Performed By: #### H GHCT, BMP3M #### [facility] [address] [place] [address] Sodium [Moles/Vol] 133 mmol/L Low 135-145 [facility] Comment on above: Performed By: #### H GHCT, BMP3M #### [facility] [address] [place] [address] Basic Metabolic Panel w/ Ref lala to MGon 12-30-2019 Anion gap [Moles/Vol] 7 mmol/L [facility], [place] Calcium [Mass/Vol] 8.9 mg/dL 8.4 - 10. 4 mg/dL [place] Chloride [Moles/Vol] 101 mmol/L 98 - 10 7 mmol/L [facility], [place] CO2 [Moles/Vol] 24 mmol/L 22 - 30 mmol/L [place] Creatinine [Mass/Vol] 0.59 mg/dL 0.52 - 1.25 mg/dL [place] EGFR IF NonAfrican Haitian >90.0 >60 mL/min [place] Comment on above: KDIGO guidelines pro vide the following GFR categories: Stage GFR(ml/min/1.73 m2) Terms G1 >=90 Normal or high G2 60-89 Mildly decreased* G3a 45-59 Mildly to moderately decreased G3b 30-44 Moderately to severely decreased G4 15-29 Severely decreased G5 <15 Kidney failure *Relative to young adult level. In the absence of evidence of kidney damage, neither GFR category G1 nor G2 fulfill the criteria for CKD. The CKD-EPI equation is validated in individuals 18 years of age and older. Currently the best equation for estimating glomerular filtration rate (GFR) from serum creatinine in children is the Bedside Floyd equation. It is less accurate in patients with extremes of muscle mass, restriction of dietary protein, ingestion of creatine, extra-renal metabolism of creatinine, or treatment with medications that affect renal tubular creatinine secretion. GFR/1.73 sq M predicted among blacks MDRD (S/P/Bld) [Vol rate/Area] mL/min/{1.73_m2} >60 mL/min [place] Glucose [Mass/Vol] 160 mg/dL High 70 - 100 mg/dL [place] Interpretation and review of laboratory results Abnormal [place] Potassium [Moles/Vol] 4.0 mmol/L 3.5 - 5.1 mmol/L [place] Sodium [Moles/Vol] 133 mmol/L Low 135 - 145 mmol/L [place] Urea nitrogen [Mass/Vol] 8 mg/dL 7 - 20 mg/dL [place] Test Performed by [facility], [address] [place] [id number] [place] [address] CULT./ST. BACTERIAon 020 CULT./ST. BACTERIA CULT./ST. BACTERIA - -> Status: F Mixed oral olga lidia present. STAIN GRAM --> Status: F No polymorphonuclear cells/lpf. Rare gram negative bacilli. Rare gram negative bacilli. Normal [facility] Comment on above: Order Comment: Speci men collected in O.R. Performed By: #### C S/BA C/GARCÍA #### [address] [address] Glucose,Bedsideon 12-30-2019 Glucose [Mass/Vol] 161 mg/dL High 70-100 [facility] Comment on above: Result Comment: Test performed by glucose meter. Results may be 10%-15% lower than serum/plasma values. (CLIA ID [id number]) Performed By: #### B GLU #### [address] [address] [place] [address] Glucose [Mass/Vol] 166 mg/dL High 70-100 [facility] Comment on above: Result Comment: Test performed by glucose meter. Results may be 10%-15% lower than serum/plasma values. (CLIA ID [id number]) Performed By: #### B GLU #### [address] [address] Hemoglobin AND Hematocriton 12-30-2019 Hematocrit (Bld) [Volume fraction] 37.6 % Low 40.0-52.0 [facility] Comment on above: Performed By: #### H GUILLERMINA BEE3M #### [address] Hemoglobin (Bld) [Mass/Vol] 12.3 g/dL Low 13.0-18.0 [facility] Comment on above: Performed By: #### H ROHIT [id number] #### [address] [id number] Hemoglobin and Hematocrit, B loodon 12-30-2019 Hematocrit (Bld) [Volume fraction] 37.6 % Low 40 - 52 % [place], [place] Hemoglobin (Bld) [Mass/Vol] 12.3 g/dL Low 13 - 18 g/dL [place] Interpretation and review of laboratory results Abnormal [place], [place] Test Performed by [address] [address] [place], [place] Op Noteon 12-30-2019 Op Note PATIENT: YARIEL ASIF ADMISSION DATE: 12/30/2019 SURGERY DATE: 12/30/2019 DATE OF : 1985 AGE: 34 ADMITTING PHYSICIAN: Gama Ludwig MD ATTENDING PHYSICIAN: Gama Ludwig MD DICTATING PHYSICIAN: Gama Ludwig MD OPERATIVE RECORD Procedure: 1. REMOVAL OF LEFT INFERIOR AND POSTERIOR MOLARS X2. 2. DEBRIDEMENT OF BONE.Excisional 3. EXPLORATION OF HARDWARE. 4. REMOVAL OF 2 SCREWS WITH OVERDRILLING AND REPLACEMENT OF 2 SCREWS. Preoperative Diagnoses: Infected left mandible, poor quality dentition with retained plate.Osteomyelitis of mandible Postoperative Diagnoses: Infected left mandible, poor quality dentition with retained plate.Osteomyelitis of mandible Anesthesia: General. Development Trainer: Adeline. Clinical History: This is a 34-year-old male who over a year ago had a mandible fracture. In his immediate postoperative period, he broke his intermaxillary fixation, broke his plate, pulled out screws and his mandible became infected. He was debrided and put into a large plate. This has been nearly a year ago and we had him repaired to do him earlier this year; however, due to the COVID virus, we were unable to re-operate on him. He had had some drainage originally after that second case, for which he was placed on antibiotics and it calmed down except that he kept having some drainage around his posterior molar. CAT scan and a Panorex had been done which showed those 2 posterior molars on the left to be loose with some probable eaten away bone around them. So, he is for removal of those molars today, debridement of bone, exploration of the plate. The risks, benefits, and alternatives were explained. It was also noted in his risks of damage to the marginal mandibular nerve. His mandibular nerve was out prior to the original surgery after his fracture. DESCRIPTION OF PROCEDURE: The patient was brought to the operating room and placed in supine position on the operating table. Adequate nasotracheal anesthesia was obtained. After that we sterilely prepped and draped in routine fashion. We injected on his upper neck incision with 1% Xylocaine with epinephrine. We went inside the mouth using elevator to work around the 2 teeth. We then used the dental extraction instruments to take out both of the teeth. The most posterior one was very loose while the one front of it was also loose, but not quite as loose as the posterior one. Once this came out, then we used a rongeur and curette to curette any soft bone. There was a small area of soft bone and mostly with the bone in between the 2 teeth which actually came out with one of the tooth roots and some of the bone that was in between tooth roots came out with that. Once we curetted and rongeured out until we had all hard bone that was bleeding, we irrigated out the wound. We then packed it and then opened our incision, went down straight to the platysma, cut underneath the platysma, worked our way up to the edge of the mandible and freed up. The plate was in entirely encased in scar tissue. There was no pus to be noted and no loose areas except for 2 of the posterior screws. The bone appeared to be solid above the plate. The bone appeared to be intact throughout its entire length. Those 2 screws were easily removed. We then over drilled those holes. The posterior cortexes were intact on each of these where the had backed out healed. We then placed two 7 emergency screws, threaded into the plate, 8 mm in length into each of these, which gave us an entirely stable plate. Anteriorly, there was actually bone covering part of the plate. This was a solid plate with bone intact above it, so I think we should be good. We irrigated this out and then closed with interrupted 3-0 Monocryl in 2 layers and a running 6-0 Prolene. I then went back up into the mouth, removed our pack, curetted out. We we curetted this out originally and rongeured out, we sent that for cultures. We irrigated again, ensured adequate hemostasis and closed the mucosa with interrupted 4-0 chromic. He was then cleaned. Bacitracin was applied on his wound. He was awakened on the table and taken to the recovery room in stable condition. Diskriter Job ID: [id number] Gama Ludwig MD DOD:12/30/2019 03:16 P GAP/dsk DOT:12/30/2019 04:32 P Job Number: [id number] Document Number: [id number] cc: Gama Ludwig MD [facility] [address] [facility] [address] [facility] [address] Normal [facility] POCT Glucoseon 12-30-2019 Glucose [Mass/Vol] 161 mg/dL High 70 - 100 mg/dL [facility] Comment on above: Test performed by ucose meter. Results may be 10%-15% lower than serum/plasma values. (CLIA ID [id number]) Interpretation and review of laboratory results Abnormal [facility] Test Performed by [facility], [address] [place] [id number] [place] [address], [place] Glucose [Mass/Vol] 166 mg/dL High 70 - 100 mg[facility] Comment on above: Test performed by ucose meter. Results may be 10%-15% lower than serum/plasma values. (CLIA ID [id number]) Interpretation and review of laboratory results [facility] Test Performed by [facility], [facility] [place] [address] [place], [place] Echo 2D Doppler Coloron 07-07 TRANSTHORACIC ECHOCA RDIOGRAM PATIENT: Victor Hugo Asif STUDY DATE: 08/02/2019 : 1985 AGE: 33 HT/WT: 165.1 cm (65 105.2 kg in) (231.5 lb) GENDER: M BP: 200 / 120 LOCATION: [facility] PATIENT Outpatient [facility] STATUS: *ORDERING PHYSICIAN: * Preethi Brush MD *READING PHYSICIAN: * Malissa Saucedo *HEALTH INSURANCE SPECIALIST: * Allison BENTLEY INDICATIONS: PILAR. Chest Pain, Unspecified (R079). CONCLUSIONS SUMMARY: 1. Procedure narrative: Image quality was fair. The study was technically limited due to body habitus. Intravenous imaging enhancement (Definity) was administered. Definity lot #: [id number]. 2. Left ventricle: Systolic function is normal by the biplane method of disks. The estimated ejection fraction is 68%. Although no diagnostic regional wall motion abnormality is identified, this possibility cannot be completely excluded on the basis of this study. Left ventricular diastolic function parameters are normal for the patient's age. 3. Right ventricle: Poorly visualized. Systolic function is mildly decreased by visual assessment. 4. No significant valve disease. STUDY DATA: Complete transthoracic echocardiogram. Procedure: Image quality was fair. The study was technically limited due to body habitus. Intravenous imaging enhancement (Definity) was administered. Definity lot #: [id number]. M-mode, complete 2D, complete spectral Doppler, and color flow Doppler images were acquired and archived for permanent storage and are available for subsequent review. Study status: Routine. Patient status: Outpatient. FINDINGS LEFT VENTRICLE: E/e' average 9.00 The cavity size is normal. Wall thickness is mildly increased. Systolic function is normal by the biplane method of disks. The estimated ejection fraction is 68%. Although no diagnostic regional wall motion abnormality is identified, this possibility cannot be completely excluded on the basis of this study. Left ventricular diastolic function parameters are normal for the patient's age. RIGHT VENTRICLE: Poorly visualized. The cavity size is normal. Systolic function is mildly decreased by visual assessment. Right ventricular systolic pressure is within the normal range. VENTRICULAR SEPTUM: The septum is normal. LEFT ATRIUM: The atrium is normal in size. RIGHT ATRIUM: The atrium is normal in size. ATRIAL SEPTUM: The interatrial septum is normal. Doppler shows no shunt. MITRAL VALVE: Structurally normal valve. Doppler: There is trivial, less than 1+ regurgitation. The peak diastolic gradient is 2 mm Hg. AORTIC VALVE: Structurally normal valve. Probably trileaflet. Doppler: There is no significant regurgitation. The peak systolic gradient is 5 mm Hg. The peak systolic velocity is 1.1 m/sec. TRICUSPID VALVE: Structurally normal valve. Doppler: There is trivial, less than 1+ regurgitation. PULMONIC VALVE: Structurally normal valve. Doppler: There is no significant regurgitation. AORTA: The aorta is normal. PERICARDIUM: There is no pericardial effusion. SYSTEMIC VEINS: Inferior vena cava: Poorly visualized. Measurements Value Reference Ascending aorta ID, A-P, S 2.6 cm Ascending aorta ID/bsa, A-P, S 1.2 cm/m^2 Left ventricle Value Reference LV ID, ED 4.4 cm 4.2 - 5.8 LV ID, ES 3.0 cm 2.5 - 4.0 LV ID/bsa, ED (L) 2.0 cm/m^2 2.2 - 3.0 LV ID/bsa, ES 1.3 cm/m^2 1.3 - 2.1 LV PW thickness, ED (H) 1.2 cm 0.6 - 1.0 LV PW/LV ID ratio, ED 0.28 LV wall mass (H) 202 g 96 - 200 LV wall mass/bsa 90 g/m^2 50 - 102 Stroke volume/bsa, 1-p A2C 40 ml/m^2 LV end-diastolic volume, 1-p A4C 152 ml 69 - 185 LV end-systolic volume, 1-p A4C 46 ml 22 - 78 LV end-diastolic volume, 2-p 150 ml 62 - 150 LV end-systolic volume, 2-p 48 ml 21 - 61 LV ejection fraction, 2-p 68 % 52 - 72 LV E/e', lateral 9.9 LV E/e', medial 10 LV E/e', average 9.9 Ventricular septum Value Reference IVS thickness, ED (H) 1.2 cm 0.6 - 1.0 LVOT Value Reference LVOT ID, A-P 2.1 cm LVOT mean velocity, S 0.7 m/sec LVOT peak gradient, S 4 mm Hg Stroke volume (SV), LVOT DP 72 ml Stroke index (SV/bsa), LVOT DP 32 ml/m^2 Aortic valve Value Reference Aortic valve peak velocity, S 1.1 m/sec Aortic peak gradient, S 5 mm Hg Left atrium Value Reference LA volume/bsa, ES, 2-p 32 ml/m^2 16 - 34 Mitral valve Value Reference Mitral E-wave peak velocity 0.7 m/sec Mitral A-wave peak velocity 0.6 m/sec Mitral deceleration time 201 ms Mitral peak gradient, D 2 mm Hg Mitral E/A ratio, peak 1.1 Pulmonary arteries Value Reference PA pressure, S, DP 24 mm Hg Tricuspid valve Value Reference Tricuspid regurg peak velocity 2 m/sec <=2.8 Tricuspid peak RV-RA gradient 16 mm Hg Right atrium Value Reference RA area, ES, A4C 17 cm^2 10 - 18 Systemic veins Value Reference Estimated RAP 8 mm Hg Right ventricle Value Reference TAPSE, 2D 1.8 cm 1.7 - 3.1 RV pressure, S, DP 24 mm Hg RV s', lateral 11.6 cm/sec 6.0 - 13.4 Legend: (L) and (H) nat values outside specified reference range. Electronically signed by Malissa Saucedo 08/02/2019 16:01 Prior Signatures: [facility] [place], JENNIFER Barba, Karo [facility] 08/02/2019 4:01 PM EST TRANSTHORACIC ECHOCARDIOGRAM PATIENT: Victor Hugo Asif STUDY DATE: 08/02/2019 : 1985 AGE: 33 HT/WT: 165.1 cm (65 105.2 kg in) (231.5 lb) GENDER: M BP: 200 / 120 LOCATION: [facility] PATIENT Outpatient [facility] STATUS: *ORDERING PHYSICIAN: * Preethi Brush MD *READING PHYSICIAN: * Malissa Saucedo *HEALTH INSURANCE SPECIALIST: Yusra BENTLEY INDICATIONS: PILAR. Chest Pain, Unspecified (R079). CONCLUSIONS SUMMARY: 1. Procedure narrative: Image quality was fair. The study was technically limited due to body habitus. Intravenous imaging enhancement (Definity) was administered. Definity lot #: [id number]. 2. Left ventricle: Systolic function is normal by the biplane method of disks. The estimated ejection fraction is 68%. Although no diagnostic regional wall motion abnormality is identified, this possibility cannot be completely excluded on the basis of this study. Left ventricular diastolic function parameters are normal for the patient's age. 3. Right ventricle: Poorly visualized. Systolic function is mildly decreased by visual assessment. 4. No significant valve disease. STUDY DATA: Complete transthoracic echocardiogram. Procedure: Image quality was fair. The study was technically limited due to body habitus. Intravenous imaging enhancement (Definity) was administered. Definity lot #: [id number]. M-mode, complete 2D, complete spectral Doppler, and color flow Doppler images were acquired and archived for permanent storage and are available for subsequent review. Study status: Routine. Patient status: Outpatient. FINDINGS LEFT VENTRICLE: E/e' average 9.00 The cavity size is normal. Wall thickness is mildly increased. Systolic function is normal by the biplane method of disks. The estimated ejection fraction is 68%. Although no diagnostic regional wall motion abnormality is identified, this possibility cannot be completely excluded on the basis of this study. Left ventricular diastolic function parameters are normal for the patient's age. RIGHT VENTRICLE: Poorly visualized. The cavity size is normal. Systolic function is mildly decreased by visual assessment. Right ventricular systolic pressure is within the normal range. VENTRICULAR SEPTUM: The septum is normal. LEFT ATRIUM: The atrium is normal in size. RIGHT ATRIUM: The atrium is normal in size. ATRIAL SEPTUM: The interatrial septum is normal. Doppler shows no shunt. MITRAL VALVE: Structurally normal valve. Doppler: There is trivial, less than 1+ regurgitation. The peak diastolic gradient is 2 mm Hg. AORTIC VALVE: Structurally normal valve. Probably trileaflet. Doppler: There is no significant regurgitation. The peak systolic gradient is 5 mm Hg. The peak systolic velocity is 1.1 m/sec. TRICUSPID VALVE: Structurally normal valve. Doppler: There is trivial, less than 1+ regurgitation. PULMONIC VALVE: Structurally normal valve. Doppler: There is no significant regurgitation. AORTA: The aorta is normal. PERICARDIUM: There is no pericardial effusion. SYSTEMIC VEINS: Inferior vena cava: Poorly visualized. Measurements Value Reference Ascending aorta ID, A-P, S 2.6 cm Ascending aorta ID/bsa, A-P, S 1.2 cm/m^2 Left ventricle Value Reference LV ID, ED 4.4 cm 4.2 - 5.8 LV ID, ES 3.0 cm 2.5 - 4.0 LV ID/bsa, ED (L) 2.0 cm/m^2 2.2 - 3.0 LV ID/bsa, ES 1.3 cm/m^2 1.3 - 2.1 LV PW thickness, ED (H) 1.2 cm 0.6 - 1.0 LV PW/LV ID ratio, ED 0.28 LV wall mass (H) 202 g 96 - 200 LV wall mass/bsa 90 g/m^2 50 - 102 Stroke volume/bsa, 1-p A2C 40 ml/m^2 LV end-diastolic volume, 1-p A4C 152 ml 69 - 185 LV end-systolic volume, 1-p A4C 46 ml 22 - 78 LV end-diastolic volume, 2-p 150 ml 62 - 150 LV end-systolic volume, 2-p 48 ml 21 - 61 LV ejection fraction, 2-p 68 % 52 - 72 LV E/e', lateral 9.9 LV E/e', medial 10 LV E/e', average 9.9 Ventricular septum Value Reference IVS thickness, ED (H) 1.2 cm 0.6 - 1.0 LVOT Value Reference LVOT ID, A-P 2.1 cm LVOT mean velocity, S 0.7 m/sec LVOT peak gradient, S 4 mm Hg Stroke volume (SV), LVOT DP 72 ml Stroke index (SV/bsa), LVOT DP 32 ml/m^2 Aortic valve Value Reference Aortic valve peak velocity, S 1.1 m/sec Aortic peak gradient, S 5 mm Hg Left atrium Value Reference LA volume/bsa, ES, 2-p 32 ml/m^2 16 - 34 Mitral valve Value Reference Mitral E-wave peak velocity 0.7 m/sec Mitral A-wave peak velocity 0.6 m/sec Mitral deceleration time 201 ms Mitral peak gradient, D 2 mm Hg Mitral E/A ratio, peak 1.1 Pulmonary arteries Value Reference PA pressure, S, DP 24 mm Hg Tricuspid valve Value Reference Tricuspid regurg peak velocity 2 m/sec <=2.8 Tricuspid peak RV-RA gradient 16 mm Hg Right atrium Value Reference RA area, ES, A4C 17 cm^2 10 - 18 Systemic veins Value Reference Estimated RAP 8 mm Hg Right ventricle Value Reference TAPSE, 2D 1.8 cm 1.7 - 3.1 RV pressure, S, DP 24 mm Hg RV s', lateral 11.6 cm/sec 6.0 - 13.4 Legend: (L) and (H) nat values outside specified reference range. Electronically signed by Malissa Saucedo 08/02/2019 16:01 Prior Signatures: [facility], [place] Echo Complete w/wo Contrasto n 08-02-2019 Echo Complete w/wo Contrast Patient Name: VICTOR HUGO ASIF Ultrasound Exam Date/Time 08/02/2019 11:40:27 EST Exam Echo Complete w/wo Contrast Ordering Physician MD BRUSH LORETTA Accession Number [id number] Reason For Exam chest pain; PILAR Report TRANSTHORACIC ECHOCARDIOGRAM PATIENT: Victor Hugo Asif STUDY DATE: 08/02/2019 : 1985 AGE: 33 HT/WT: 165.1 cm (65 105.2 kg in) (231.5 lb) GENDER: M BP: 200 / 120 LOCATION: [facility] PATIENT Outpatient [facility] STATUS: *ORDERING PHYSICIAN: * Preethi Brush MD *READING PHYSICIAN: * Malissa Saucedo *HEALTH INSURANCE SPECIALIST: * Allison Sky RCS INDICATIONS: PILAR. Chest Pain, Unspecified (R079). CONCLUSIONS SUMMARY: 1. Procedure narrative: Image quality was fair. The study was technically limited due to body habitus. Intravenous imaging enhancement (Definity) was administered. Definity lot #: [id number]. 2. Left ventricle: Systolic function is normal by the biplane method of disks. The estimated ejection fraction is 68%. Although no diagnostic regional wall motion abnormality is identified, this possibility cannot be completely excluded on the basis of this study. Left ventricular diastolic function parameters are normal for the patient's age. 3. Right ventricle: Poorly visualized. Systolic function is mildly decreased by visual assessment. 4. No significant valve disease. STUDY DATA: Complete transthoracic echocardiogram. Procedure: Image quality was fair. The study was technically limited due to body habitus. Intravenous imaging enhancement (Definity) was administered. Definity lot #: [id number]. M-mode, complete 2D, complete spectral Doppler, and color flow Doppler images were acquired and archived for permanent storage and are available for subsequent review. Study status: Routine. Patient status: Outpatient. FINDINGS LEFT VENTRICLE: E/e' average 9.00 The cavity size is normal. Wall thickness is mildly increased. Systolic function is normal by the biplane method of disks. The estimated ejection fraction is 68%. Although no diagnostic regional wall motion abnormality is identified, this possibility cannot be completely excluded on the basis of this study. Left ventricular diastolic function parameters are normal for the patient's age. RIGHT VENTRICLE: Poorly visualized. The cavity size is normal. Systolic function is mildly decreased by visual assessment. Right ventricular systolic pressure is within the normal range. VENTRICULAR SEPTUM: The septum is normal. LEFT ATRIUM: The atrium is normal in size. RIGHT ATRIUM: The atrium is normal in size. ATRIAL SEPTUM: The interatrial septum is normal. Doppler shows no shunt. MITRAL VALVE: Structurally normal valve. Doppler: There is trivial, less than 1+ regurgitation. The peak diastolic gradient is 2 mm Hg. AORTIC VALVE: Structurally normal valve. Probably trileaflet. Doppler: There is no significant regurgitation. The peak systolic gradient is 5 mm Hg. The peak systolic velocity is 1.1 m/sec. TRICUSPID VALVE: Structurally normal valve. Doppler: There is trivial, less than 1+ regurgitation. PULMONIC VALVE: Structurally normal valve. Doppler: There is no significant regurgitation. AORTA: The aorta is normal. PERICARDIUM: There is no pericardial effusion. SYSTEMIC VEINS: Inferior vena cava: Poorly visualized. Measurements Value Reference Ascending aorta ID, A-P, S 2.6 cm Ascending aorta ID/bsa, A-P, S 1.2 cm/m^2 Left ventricle Value Reference LV ID, ED 4.4 cm 4.2 - 5.8 LV ID, ES 3.0 cm 2.5 - 4.0 LV ID/bsa, ED (L) 2.0 cm/m^2 2.2 - 3.0 LV ID/bsa, ES 1.3 cm/m^2 1.3 - 2.1 LV PW thickness, ED (H) 1.2 cm 0.6 - 1.0 LV PW/LV ID ratio, ED 0.28 LV wall mass (H) 202 g 96 - 200 LV wall mass/bsa 90 g/m^2 50 - 102 Stroke volume/bsa, 1-p A2C 40 ml/m^2 LV end-diastolic volume, 1-p A4C 152 ml 69 - 185 LV end-systolic volume, 1-p A4C 46 ml 22 - 78 LV end-diastolic volume, 2-p 150 ml 62 - 150 LV end-systolic volume, 2-p 48 ml 21 - 61 LV ejection fraction, 2-p 68 % 52 - 72 LV E/e', lateral 9.9 LV E/e', medial 10 LV E/e', average 9.9 Ventricular septum Value Reference IVS thickness, ED (H) 1.2 cm 0.6 - 1.0 LVOT Value Reference LVOT ID, A-P 2.1 cm LVOT mean velocity, S 0.7 m/sec LVOT peak gradient, S 4 mm Hg Stroke volume (SV), LVOT DP 72 ml Stroke index (SV/bsa), LVOT DP 32 ml/m^2 Aortic valve Value Reference Aortic valve peak velocity, S 1.1 m/sec Aortic peak gradient, S 5 mm Hg Left atrium Value Reference LA volume/bsa, ES, 2-p 32 ml/m^2 16 - 34 Mitral valve Value Reference Mitral E-wave peak velocity 0.7 m/sec Mitral A-wave peak velocity 0.6 m/sec Mitral deceleration time 201 ms Mitral peak gradient, D 2 mm Hg Mitral E/A ratio, peak 1.1 Pulmonary arteries Value Reference PA pressure, S, DP 24 mm Hg Tricuspid valve Value Reference Tricuspid regurg peak velocity 2 m/sec <=2.8 Tricuspid peak RV-RA gradient 16 mm Hg Right atrium Value Reference RA area, ES, A4C 17 cm^2 10 - 18 Systemic veins Value Reference Estimated RAP 8 mm Hg Right ventricle Value Reference TAPSE, 2D 1.8 cm 1.7 - 3.1 RV pressure, S, DP 24 mm Hg RV s', lateral 11.6 cm/sec 6.0 - 13.4 Legend: (L) and (H) nat values outside specified reference range. Electronically signed by Malissa Saucedo 08/02/2019 16:01 Prior Signatures: Final Dictated: 08/02/2019 4:01 pm Dictating Physician: MD SAUCEDO GABRIELA Signed Date and Time: 08/02/2019 4:01 pm Signed by: MD SAUCEDO GABRIELA [facility] [place] Cardiac Stress Test Nucle ar Imagingon 08-02-2019 Nuclear Stress Myoca rdial Perfusion Study Regadenoson Protocol Gated SPECT Patient: Victor Hugo Asif Height: (65 in) Weight: (231.9 lb) : 1985 Age: 33 Gender: M Study Date: 08/02/2019 Accession#: Patient Room #: *ORDERING PHYSICIAN: * Preethi Brush MD *SUPERVISING PHYSICIAN: * Shonda Edmondson *RADIOLOGIST: * Edilberto Walters MD *READING PHYSICIAN: * Malissa Saucedo Indications: Pre op clearance (R07.9). Summary: 1. Gated SPECT: The left ventricular end-diastolic volume is 115 ml. The left ventricular end-systolic volume is 35 ml. The calculated left ventricular ejection fraction during stress is70 %. Left ventricular function appears visually normal. 2. Normal vasodilator stress myocardial perfusion imaging. No evidence for scar or ischemia. 3. Left ventricular ejection fraction and wall motion appear normal on gated SPECT images. Radiologist Confirmation: The SPECT perfusion imaging portion of the study was interpreted and reported by Edilberto Walters MD on 08/02/2019 01:40 PM. History: 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 treated. Diabetic non insulin dependent. PILAR, SEIZURES. Medications: Verapamil (Isoptin, Calan, Covera). Nadolol (Corgard). Lisinopril (Zestril). Allergies: Baclofen allergy. Penicillin allergy. Tylenol allergy. Vicodin allergy. Asthma. Family history of cardiovascular disease. Patient is NPO per policy. No caffeine per policy. Study data: Pre pain assessment is 0 out of 10. Post pain assessment is 0 out of 10. Patient status: Outpatient. Gated SPECT; rest/stress. One-day Sestamibi. Consent: The procedure was reviewed with the patient and the patient voices understanding. Study completion: The patient tolerated the procedure well. There were no complications. Administered medications: Regadenoson. Procedure data: Initial setup. The patient was brought to the laboratory. A baseline ECG was recorded. Surface ECG leads and blood pressure measurements were monitored. IV access obtained 22g RAC. 1 attempts for IV access. IV access per nt. IV patent, site benign. IV discontinued, site benign. Regadenoson stress test. Stress testing was performed, with regadenoson by intravenous bolus at one minute into the protocol, for a total dose of 0.4mgover 10.00 sec, followed by a 5 ml saline flush. Exercise for 4 minutes completed by hand saloon keeper. The infusion was terminated due to end of protocol. Baseline ECG: Isolated ventricular ectopy. Normal sinus rhythm. Stress protocol: + +--+ --+ + +Stage +HR+BP +Symptoms + + +--+ --+ + +Rest +68+156/105 (122)+No symptoms.+ + +--+ --+ + +Peak stress +77+163/106 (125)+No symptoms.+ + +--+ --+ + +Recovery +71+152/96 (115) +No symptoms.+ + +--+ --+ + +Late recovery+74+152/96 (115) +No symptoms.+ + +--+ --+ + Stress results: Peak heart rate during stress was 77 bpm. (42% of maximal predicted heart rate). The maximal predicted heart rate was 185 bpm.The heart rate response to stress is normal. There is an appropriate response to stress. The rate-pressure product for the peak heart rate and blood pressure was 39497 mm Hg/min. Stress testing did not produce any symptoms suggestive of coronary artery disease. Stress ECG: There are no stress arrhythmias or conduction abnormalities. Isolated ventricular ectopy. No stress induced ECG changes suggestive of ischemia. Isotope administration: + + ---+ + +Stage +Rest +Stress + + + ---+ + +Agent +Tc-99m sestamibi+Tc-99m sestamibi + + + ---+ + +Injected dose +8.5 mCi +32.5 mCi + + + ---+ + +Date +08/02/201908/02/2019 + + + ---+ + +Injection time+07:50 AM +08:45 AM + + + ---+ + +Injection at + +Peak pharmacologic stress+ + + ---+ + +Route +IV +IV + + + ---+ + +Injected by +Pramod HERCULES QUALITATIVE EXECUTIVE RESEARCHER +Pramod HERCULES QUALITATIVE EXECUTIVE RESEARCHER + + + ---+ + Image properties: Imaging information: The study was gated. The patient was imaged in the supine position.The image quality was good. Myocardial perfusion imaging: The TID ratio is 1. Rest: Left ventricular myocardial perfusion is normal in all segments. Perfusion score: 0. Stress: Left ventricular myocardial perfusion is normal in all segments. Perfusion score: 0. Gated SPECT: The left ventricular end-diastolic volume is 115 ml. The left ventricular end-systolic volume is 35 ml. The calculated left ventricular ejection fraction during stress is70 %. Left ventricular function appears visually normal. Electronically signed by Malissa Saucedo 08/02/2019 16:59 [facility], [place], [facility] Incoming Cardiology Results From [facility] - 08/02/2019 5:00 PM EST Nuclear Stress Myocardial Perfusion Study Regadenoson Protocol Gated SPECT Patient: Victor Hugo Asif Height: (65 in) Weight: (231.9 lb) : 1985 Age: 33 Gender: M Study Date: 08/02/2019 Accession#: Patient Room #: *ORDERING PHYSICIAN: * Preethi Brush MD *SUPERVISING PHYSICIAN: * Shonda Edmondson *RADIOLOGIST: * Edilberto Walters MD *READING PHYSICIAN: * Malissa Saucedo Indications: Pre op clearance (R07.9). Summary: 1. Gated SPECT: The left ventricular end-diastolic volume is 115 ml. The left ventricular end-systolic volume is 35 ml. The calculated left ventricular ejection fraction during stress is70 %. Left ventricular function appears visually normal. 2. Normal vasodilator stress myocardial perfusion imaging. No evidence for scar or ischemia. 3. Left ventricular ejection fraction and wall motion appear normal on gated SPECT images. Radiologist Confirmation: The SPECT perfusion imaging portion of the study was interpreted and reported by Edilberto Walters MD on 08/02/2019 01:40 PM. History: 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 treated. Diabetic non insulin dependent. PILAR, SEIZURES. Medications: Verapamil (Isoptin, Calan, Covera). Nadolol (Corgard). Lisinopril (Zestril). Allergies: Baclofen allergy. Penicillin allergy. Tylenol allergy. Vicodin allergy. Asthma. Family history of cardiovascular disease. Patient is NPO per policy. No caffeine per policy. Study data: Pre pain assessment is 0 out of 10. Post pain assessment is 0 out of 10. Patient status: Outpatient. Gated SPECT; rest/stress. One-day Sestamibi. Consent: The procedure was reviewed with the patient and the patient voices understanding. Study completion: The patient tolerated the procedure well. There were no complications. Administered medications: Regadenoson. Procedure data: Initial setup. The patient was brought to the laboratory. A baseline ECG was recorded. Surface ECG leads and blood pressure measurements were monitored. IV access obtained 22g RAC. 1 attempts for IV access. IV access per nt. IV patent, site benign. IV discontinued, site benign. Regadenoson stress test. Stress testing was performed, with regadenoson by intravenous bolus at one minute into the protocol, for a total dose of 0.4mgover 10.00 sec, followed by a 5 ml saline flush. Exercise for 4 minutes completed by hand saloon keeper. The infusion was terminated due to end of protocol. Baseline ECG: Isolated ventricular ectopy. Normal sinus rhythm. Stress protocol: + +--+ --+ + +Stage +HR+BP +Symptoms + + +--+ --+ + +Rest +68+156/105 (122)+No symptoms.+ + +--+ --+ + +Peak stress +77+163/106 (125)+No symptoms.+ + +--+ --+ + +Recovery +71+152/96 (115) +No symptoms.+ + +--+ --+ + +Late recovery+74+152/96 (115) +No symptoms.+ + +--+ --+ + Stress results: Peak heart rate during stress was 77 bpm. (42% of maximal predicted heart rate). The maximal predicted heart rate was 185 bpm.The heart rate response to stress is normal. There is an appropriate response to stress. The rate-pressure product for the peak heart rate and blood pressure was 78735 mm Hg/min. Stress testing did not produce any symptoms suggestive of coronary artery disease. Stress ECG: There are no stress arrhythmias or conduction abnormalities. Isolated ventricular ectopy. No stress induced ECG changes suggestive of ischemia. Isotope administration: + + ---+ + +Stage +Rest +Stress + + + ---+ + +Agent +Tc-99m sestamibi+Tc-99m sestamibi + + + ---+ + +Injected dose +8.5 mCi +32.5 mCi + + + ---+ + +08/02/201908/02/2019 + + + ---+ + +Injection time+07:50 AM +08:45 AM + + + ---+ + +Injection at + +Peak pharmacologic stress+ + + ---+ + +Route +IV +IV + + + ---+ + +Injected by +J HERCULES QUALITATIVE EXECUTIVE RESEARCHER +J HERCULES QUALITATIVE EXECUTIVE RESEARCHER + + + ---+ + Image properties: Imaging information: The study was gated. The patient was imaged in the supine position.The image quality was good. Myocardial perfusion imaging: The TID ratio is 1. Rest: Left ventricular myocardial perfusion is normal in all segments. Perfusion score: 0. Stress: Left ventricular myocardial perfusion is normal in all segments. Perfusion score: 0. Gated SPECT: The left ventricular end-diastolic volume is 115 ml. The left ventricular end-systolic volume is 35 ml. The calculated left ventricular ejection fraction during stress is70 %. Left ventricular function appears visually normal. Electronically signed by Malissa Saucedo 08/02/2019 16:59 [place], [place] NM Myocardial Perf Imaging amarilis Olmos 08-02-2019 NM Myocardial Perf Imaging Multi Spect Patient Name: VICTOR HUGO ASIF Nuc Med Exam Date/Time 08/02/2019 10:12:18 EST Exam NM Myocardial Perf Imaging Multi Spect Ordering Physician MD BRUSH LORETTA Accession Number [id number] CPT4 Codes 23074 (), 31191 (NM EKG TREADMILL - NUCLEAR) Reason For Exam Pre op clearance Report Nuclear Stress Myocardial Perfusion Study Regadenoson Protocol Gated SPECT Patient: Victor Hugo Asif Height: (65 in) Weight: (231.9 lb) : 1985 Age: 33 Gender: M Study Date: 08/02/2019 Accession#: Patient Room #: *ORDERING PHYSICIAN: * Preethi Brush MD *SUPERVISING PHYSICIAN: * Shonda Edmondson *RADIOLOGIST: * Edilberto Walters MD *READING PHYSICIAN: * Malissa Saucedo Indications: Pre op clearance (R07.9). Summary: 1. Gated SPECT: The left ventricular end-diastolic volume is 115 ml. The left ventricular end-systolic volume is 35 ml. The calculated left ventricular ejection fraction during stress is70 %. Left ventricular function appears visually normal. 2. Normal vasodilator stress myocardial perfusion imaging. No evidence for scar or ischemia. 3. Left ventricular ejection fraction and wall motion appear normal on gated SPECT images. Radiologist Confirmation: The SPECT perfusion imaging portion of the study was interpreted and reported by Edilberto Walters MD on 08/02/2019 01:40 PM. History: 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 treated. Diabetic non insulin dependent. PILAR, SEIZURES. Medications: Verapamil (Isoptin, Calan, Covera). Nadolol (Corgard). Lisinopril (Zestril). Allergies: Baclofen allergy. Penicillin allergy. Tylenol allergy. Vicodin allergy. Asthma. Family history of cardiovascular disease. Patient is NPO per policy. No caffeine per policy. Study data: Pre pain assessment is 0 out of 10. Post pain assessment is 0 out of 10. Patient status: Outpatient. Gated SPECT; rest/stress. One-day Sestamibi. Consent: The procedure was reviewed with the patient and the patient voices understanding. Study completion: The patient tolerated the procedure well. There were no complications. Administered medications: Regadenoson. Procedure data: Initial setup. The patient was brought to the laboratory. A baseline ECG was recorded. Surface ECG leads and blood pressure measurements were monitored. IV access obtained 22g RAC. 1 attempts for IV access. IV access per nt. IV patent, site benign. IV discontinued, site benign. Regadenoson stress test. Stress testing was performed, with regadenoson by intravenous bolus at one minute into the protocol, for a total dose of 0.4mgover 10.00 sec, followed by a 5 ml saline flush. Exercise for 4 minutes completed by hand saloon keeper. The infusion was terminated due to end of protocol. Baseline ECG: Isolated ventricular ectopy. Normal sinus rhythm. Stress protocol: + +--+ --+ + +Stage +HR+BP +Symptoms + + +--+ --+ + +Rest +68+156/105 (122)+No symptoms.+ + +--+ --+ + +Peak stress +77+163/106 (125)+No symptoms.+ + +--+ --+ + +Recovery +71+152/96 (115) +No symptoms.+ + +--+ --+ + +Late recovery+74+152/96 (115) +No symptoms.+ + +--+ --+ + Stress results: Peak heart rate during stress was 77 bpm. (42% of maximal predicted heart rate). The maximal predicted heart rate was 185 bpm.The heart rate response to stress is normal. There is an appropriate response to stress. The rate-pressure product for the peak heart rate and blood pressure was 55827 mm Hg/min. Stress testing did not produce any symptoms suggestive of coronary artery disease. Stress ECG: There are no stress arrhythmias or conduction abnormalities. Isolated ventricular ectopy. No stress induced ECG changes suggestive of ischemia. Isotope administration: + + ---+ + +Stage +Rest +Stress + + + ---+ + +Agent +Tc-99m sestamibi+Tc-99m sestamibi + + + ---+ + +Injected dose +8.5 mCi +32.5 mCi + + + ---+ + +Date +08/02/2019 +08/02/2019 + + + ---+ + +Injection time+07:50 AM +08:45 AM + + + ---+ + +Injection at + +Peak pharmacologic stress+ + + ---+ + +Route +IV +IV + + + ---+ + +Injected by +Pramod MARIE +J DELISA QUALITATIVE EXECUTIVE RESEARCHER + + + ---+ + Image properties: Imaging information: The study was gated. The patient was imaged in the supine position.The image quality was good. Myocardial perfusion imaging: The TID ratio is 1. Rest: Left ventricular myocardial perfusion is normal in all segments. Perfusion score: 0. Stress: Left ventricular myocardial perfusion is normal in all segments. Perfusion score: 0. Gated SPECT: The left ventricular end-diastolic volume is 115 ml. The left ventricular end-systolic volume is 35 ml. The calculated left ventricular ejection fraction during stress is70 %. Left ventricular function appears visually normal. Electronically signed by Malissa Saucedo 08/02/2019 16:59 Final Dictated: 08/02/2019 5:00 pm Dictating Physician: MD SAUCEDO GABRIELA Signed Date and Time: 08/02/2019 4:59 pm Signed by: MD SAUCEDO GABRIELA Normal [facility] Basic Metabolic Panelon 07-06 Calcium [Mass/Vol] 9.4 mg/dL Normal 8.4-10.4 [facility] Comment on above: Performed By: #### H GUILLERMINA ECHEVARRIA3Young #### [facility] [address], [place] Anion gap [Moles/Vol] 6 Normal [facility] Comment on above: Performed By: #### H SWATHI BMP3M #### [facility] [address], [place] CO2 [Moles/Vol] 29 mmol/L Normal 22-30 [facility] Comment on above: Performed By: #### H GUILLERMINA ECHEVARRIA3M #### [facility] [address], [place] Glucose [Mass/Vol] 200 mg/dL High 70-100 [facility] Comment on above: Result Comment: Mode rately hemolysed, interpret with caution. Performed By: #### H EMDF, BMP3M #### [facility] [address] [place] [address] Urea nitrogen [Mass/Vol] 12 mg/dL Normal 7-20 [facility] Comment on above: Performed By: #### H SWATHI BMP3M #### [facility] [address] [place] [address] Creatinine [Mass/Vol] 0.71 mg/dL Normal 0.52-1.25 [facility] Comment on above: Performed By: #### H SWATHI BMP3M #### [place] [address] [place] [address] GFR/1.73 sq M predicted among blacks MDRD (S/P/Bld) [Vol rate/Area] mL/min/{1.73_m2} Normal >60 [facility] Comment on above: Performed By: #### H SWATHI BMP3M #### [place] [address] [place] [address] GFR/1.73 sq M predicted among non-blacks MDRD (S/P/Bld) [Vol rate/Area] mL/min/{1.73_m2} Normal >60 [facility] Comment on above: Result Comment: Sour ce- MDRD equation with creatinine calibration to IDMS(NKDEP) eGFR not recommended for drug dose adjustment Performed By: #### H SWATHI BMP3M #### [place] [address] [place] [address] Chloride [Moles/Vol] 102 mmol/L Normal 98-107 [facility] Comment on above: Performed By: #### H SWATHI BMP3M #### [place] [address] [place] [address] Potassium [Moles/Vol] 5.0 mmol/L Normal 3.5-5.1 [facility] Comment on above: Result Comment: Mode rately hemolysed, interpret with caution. Performed By: #### H SWATHI BMP3M #### [place] [address] [place] [address] Sodium [Moles/Vol] 136 mmol/L Normal 135-145 [facility] Comment on above: Performed By: #### H EMDF, BMP3M #### [facility] [employer] [address] [place] [address] Basic Metabolic Panel w/ Ref lala to MGon 07-18-2019 Anion gap [Moles/Vol] 6 mmol/L [facility] Work Phone: Calcium [Mass/Vol] 9.4 mg/dL 8.4 - 10. 4 mg/dL [facility] Work Phone: [phone] Chloride [Moles/Vol] 102 mmol/L 98 - 10 7 mmol/L [facility] Work Phone: CO2 [Moles/Vol] 29 mmol/L 22 - 30 mmol/L [facility] Work Phone: Creatinine [Mass/Vol] 0.71 mg/dL 0.52 - 1.25 mg/dL [facility] Work Phone: EGFR IF NonAfrican Haitian >60.0 >60 mL/min [facility] Work Phone: Comment on above: Source- MDRD equatio n with creatinine calibration to IDMS(NKDEP) eGFR not recommended for drug dose adjustment GFR/1.73 sq M predicted among blacks MDRD (S/P/Bld) [Vol rate/Area] mL/min/{1.73_m2} >60 mL/min [facility] Work Phone: Glucose [Mass/Vol] 200 mg/dL High 70 - 100 mg/dL [facility] Work Phone: Comment on above: Moderately hemolysed , interpret with caution. Interpretation and review of laboratory results Abnormal [facility] Work Phone: Potassium [Moles/Vol] 5.0 mmol/L 3.5 - 5.1 mmol/L [facility] Work Phone: Comment on above: Moderately hemolysed , interpret with caution. Sodium [Moles/Vol] 136 mmol/L 135 - 145 mmol/L [facility] Work Phone: Urea nitrogen [Mass/Vol] 12 mg/dL 7 - 20 mg/dL [facility] Work Phone: Test Performed by [facility], [address] [place] [address] [facility] Work Phone: [phone] CBC auto differentialon 07-06 Absolute Baso # 0.1 10*3/uL 0 - 0.2 10*3/uL [facility] Work Phone: [phone] Absolute Neut # 2.8 10*3/uL 1.8 - 7 10*3/uL [facility] Work Phone: [phone] Basophils/100 WBC (Bld) 1.2 % 0 - 2 % [facility] Work Phone: [phone] Eosinophils (Bld) [#/Vol] 0.2 10*3/uL 0 - 0.5 10*3/uL [facility] Work Phone: [phone] Eosinophils/100 WBC (Bld) 3.5 % 1 - 6 % [facility] Work Phone: [phone] Erythrocyte distribution width (RBC) [Ratio] 14.4 % 11.5 - 14.5 % [facility] Work Phone: [phone] Granulocytes/100 WBC (Bld) 50.8 % 40 - 80 % [facility] Work Phone: [phone] Hematocrit (Bld) [Volume fraction] 39.6 % Low 40 - 52 % [facility] Work Phone: [phone] Hemoglobin (Bld) [Mass/Vol] 12.8 g/dL Low 13 - 18 g/dL [facility] Work Phone: [phone] Interpretation and review of laboratory results Abnormal [facility] Work Phone: [phone] Lymphocytes (Bld) [#/Vol] 1.9 10*3/uL 1 - 4.3 10*3/uL [facility] Work Phone: [phone] Lymphocytes/100 WBC (Bld) 34.7 % 20 - 40 % [facility] Work Phone: [phone] MCH (RBC) [Entitic mass] 27.0 pg 26 - 34 pg [facility] Work Phone: [phone] MCHC (RBC) [Mass/Vol] 32.4 % 32 - 36 % [facility] Work Phone: [phone] MCV (RBC) [Entitic vol] 83.4 fL 80 - 98 fL [facility] Work Phone: Monocytes (Bld) [#/Vol] 0.5 10*3/uL 0 - 0.8 10*3/uL [facility] Work Phone: Monocytes/100 WBC (Bld) 9.8 % 2 - 10 % [facility] Work Phone: Platelet mean volume (Bld) [Entitic vol] 9.7 fL 7.4 - 10.4 fL [facility] Work Phone: Platelets (Bld) [#/Vol] 203 10*3/uL 140 - 440 10*3/uL [facility] Work Phone: RBC (Bld) [#/Vol] 4.75 10*6/uL 4.4 - 5.9 10*6/uL [facility] Work Phone: WBC (Bld) [#/Vol] 5.6 10*3/uL 3.6 - 10.7 10*3/uL [facility] Work Phone: Test Performed by [facility], [address] [place] [address] [facility] Work Phone: Hemogram w/ Autodiffon 07-18 Abs Baso Cnt 0.1 10*3/uL Normal 0.0-0.2 [facility] Comment on above: Performed By: #### H EMDF, BMP3M #### [facility] [employer] [facility] [address] [place] [address] Abs Neutrophile Cnt 2.8 10*3/uL Normal 1.8-7.0 [facility] Comment on above: Performed By: #### H EMDF, BMP3M #### [facility] [employer] [facility] [address] [place] [address] Basophils/100 WBC (Bld) 1.2 % Normal 0.0-2.0 [facility] Comment on above: Performed By: #### H EMDF, BMP3M #### [facility] [employer] [facility] [address] [place] [address] Eosinophils (Bld) [#/Vol] 0.2 10*3/uL Normal 0.0-0.5 [facility] Comment on above: Performed By: #### H SWATHI BMP3M #### [address] Eosinophils/100 WBC (Bld) 3.5 % Normal 1.0-6.0 [facility] Comment on above: Performed By: #### H SWATHI BMP3M #### [address] Erythrocyte distribution width (RBC) [Ratio] 14.4 % Normal 11.5-14.5 [facility] Comment on above: Performed By: #### H SWATHI BMP3M #### [address] Granulocytes/100 WBC (Bld) 50.8 % Normal 40.0-80.0 [facility] Comment on above: Performed By: #### H SWATHI BMP3M #### [address] Hematocrit (Bld) [Volume fraction] 39.6 % Low 40.0-52.0 [facility] Comment on above: Performed By: #### H SWATHI BMP3M #### [address] Hemoglobin (Bld) [Mass/Vol] 12.8 g/dL Low 13.0-18.0 [facility] Comment on above: Performed By: #### H SWATHI BMP3M #### [address] Lymphocytes (Bld) [#/Vol] 1.9 10*3/uL Normal 1.0-4.3 [facility] Comment on above: Performed By: #### H SWATHI BMP3M #### [address] Lymphocytes/100 WBC (Bld) 34.7 % Normal 20.0-40.0 [facility] Comment on above: Performed By: #### H SWATHI BMP3M #### [facility] [address] [place], [place] MCH (RBC) [Entitic mass] 27.0 pg Normal 26.0-34.0 [facility] Comment on above: Performed By: #### H EMDAndria BMP3M #### [facility] [address] [place], [place] MCHC (RBC) [Mass/Vol] 32.4 % Normal 32.0-36.0 [facility] Comment on above: Performed By: #### H EMDF BMP3M #### [facility] [address] [place], [place] MCV (RBC) [Entitic vol] 83.4 fL Normal 80.0-98.0 [facility] Comment on above: Performed By: #### H EMDF BMP3M #### [place] [address] [place], [place] Monocytes (Bld) [#/Vol] 0.5 10*3/uL Normal 0.0-0.8 [facility] Comment on above: Performed By: #### H EMDF BMP3M #### [place] [address] [place], [place] Monocytes/100 WBC (Bld) 9.8 % Normal 2.0-10.0 [facility] Comment on above: Performed By: #### H EMDF, BMP3M #### [place] [address] [place], [place] Platelet mean volume (Bld) [Entitic vol] 9.7 fL Normal 7.4-10.4 [facility] Comment on above: Performed By: #### H EMDF, BMP3M #### [place] [address] [place], [place] Platelets (Bld) [#/Vol] 203 10*3/uL Normal 140-440 [facility] Comment on above: Performed By: #### H EMDF, BMP3M #### [facility] [address] [place], [place] RBC (Bld) [#/Vol] 4.75 10*6/uL Normal 4.40-5.90 [facility] Comment on above: Performed By: #### H GUILLERMINA ECHEVARRIA3M #### [facility] [employer] [facility] [address] [place] [address] WBC (Bld) [#/Vol] 5.6 10*3/uL Normal 3.6-10.7 [facility] Comment on above: Performed By: #### H GUILLERMINA ECHEVARRIA3M #### [facility] [employer] [facility] [address] [place] [address] Basic Panelon 02-27-2018 Creatinine mass conc 0.81 mg/dL Normal 0.67-1.17 [facility] Comment on above: Performed By: #### G LMET ####[address] [address] Anion gap 3 molar conc 13 mmol/L Normal 8-16 [facility] Comment on above: Performed By: #### G LMET ####[address] [address] CO2 molar conc 27 mmol/L Normal 21-32 [facility] Comment on above: Performed By: #### G LMET ####[address] [address] Glucose mass conc 194 mg/dL High 70-99 [facility] Comment on above: Performed By: #### G LMET ####[address] [address] Calcium mass conc 9.3 mg/dL Normal 8.5-10.1 [facility] Comment on above: Performed By: #### G LMET ####[address] [address] Urea nitrogen mass conc 11 mg/dL Normal 7-18 [facility] Comment on above: Performed By: #### G LMET ####[address] [address] Chloride molar conc 101 mmol/L Normal 98-107 [facility] Comment on above: Performed By: #### G LMET ####[address] [address] Potassium molar conc 4.5 mmol/L Normal 3.5-5.1 [facility] Comment on above: Performed By: #### G LMET ####[facility] [place] [id number] Sodium molar conc 136 mmol/L Normal 136-145 [facility] Comment on above: Performed By: #### G LMET ####[address] [address] CASE MANAGEMon 02-27-2018 CASE MANAGEM HNO ID: [id number] thor: Edilberto Elizabeth (Sw)e: Care ManagementAuthor Type: Social WorkerType: Care Mgt Progress NoteFiled: 02/27/2018 9:53 AMNote Text:Reason for Admission: Facial cellulitis [L03.211]Infection [B99.9]Reason for Social Work Contact:Advance DirectivesTime Spent (minutes): 60Information Obtained From: PatientPatient Granted Permission to Speak to Others in the Room: Not ApplicableSOCIAL HISTORYMarital Status: In a Relationship. Relationship described as amicableChildren (Including Quality of Relationship): UnknownSexual Orientation: HeterosexualGender Identity: MaleAbuse History: UnknownEducation History: UnknownSupport System: Family: WifeMilitary Status (Including History of Combat Experience): UnknownLegal History:UnknownReligion/Spiri tuality: UnknownDo Special Considerations/Accommodations Need to be Made?NoAre There Practices or Beliefs That May Affect or Influence Care?No, Patient/Title Search Manager DeniesPatient Strengths/Protective Factors:Able to Communicate NeedsPSYCHIATRIC HISTORY:Family Psychiatric HistoryUnknownHomicide/Suicid e RiskNoneSubstance Use and Treatment History:UnknownOffered Patient Resources: NoDISCHARGE RECOMMENDATIONS:Food resrucesPatient/Representativ e Agreeable With Discharge Recommendations At ThisTime? YesOBSTACLES TO TREATMENT/POST-DISCHARGECHALL ENGES:Food insecuritySW was consulted to assist pt with food resources, and to complete aHCPOA. Pt reported that he would like to complete a HCPOA naming hissister as his primary agent, and hi as his first alterate. SWprovided pt with a copy of the documents and the original, placed a copyin pts chart, and had another sent to admitting.Pt reported that he may get food assistance but reported he oftenstruggles to pay for his food. SW provided pt with a list of food pantriesin [place].Pt reported having no other needs at this time Normal [facility] CNDSon 02-27-2018 CNDS HNO ID: [id number] thor: Carolyn Nevesrvice: [facility] MedicineAuthor Type: PhysicianType: Discharge SummariesFiled: 02/27/2018 2:05 PMNote Text: DISCHARGE SUMMARYPATIENT NAME: Victor Hugo Asif Code Status: Not on fileMRN: [id number] Readmission Risk Score: 38 The 30 day readmissions risk score is derived from an internallyvalidated risk model which evaluates patient level characteristics,utilization history, medication orders and lab results up until the day ofdischarge. Patients with a score of 40 or above are considered highestrisk for readmission. Specific patient level drivers will be listed at thebottom of the summary.Admission Information Admission Information ADMIT DATE: 02/24/2018DISCHARGE DATE: 02/27/18[facility] Doctor: Carolyn Mary Care Provider: Vinayak Arambula Medical Team Members: Treatment Team:Attending Provider: Carolyn Gabrileing: Gama Howe Service: [facility] RedConsulting: Gama Saul BollinConsulting: Shelbi Be CONDITION AT DISCHARGE: StableREASON I WAS IN THE HOSPITAL:SUMMARY OF WHAT HAPPENED WHILE I WAS IN THE HOSPITAL:Patient was admitted for facial cellulitis. He had recent ORIF ofbilateral mandible fracture and placement intermaxillary fixation on01/27/18. CT of neck showed swelling but no evidence of abscess. Patientwas treated with antibiotics IV and will be discharged on oral avelox for2 weeks. Follow up with ID clinic. Consulted plastic surgery andrecommended no intervention now and follow up in [facility]. Swellingimproved significantly during hospital. Patient was seen by endocrinefor his diabetes and his insulin regime was adjusted.OTHER PROBLEMS/DIAGNOSIS:Active Problems: Facial cellulitisResolved Problems: * No resolved hospital problems. *OPERATIONS PERFORMED WHILE IN THE HOSPITAL: NoneIMPORTANT TEST/PROCEDURES:No procedures performedTEST RESULTS NOT AVAILABLE AT THIS TIME:No pending results Discharge Disposition Discharge Disposition: Home With Self CareActivity When You Leave the Hospital Resume pre-hospital activityDiet Instructions Resume your pre-hospital dietFollow Up Appointments Follow-Up Appointment [facility] as instructed When: In 1 week Gama [phone] [address] [address] PCP Requested Referral Follow-Up Appointment When: In 1 week Jose Luis [phone] [address] [address] PCP Requested Referral Follow-Up Appointment When: In 2 weeks Shelbi [phone] [address] PCP Requested Referral Follow-Up Appointment - Your PCP With: Your PCP When: In 1 week Patient/Parents to call for appointment?: YesAdditional Provider to Provider Information:Transitions of Care Critical Issues:LABS AND PROCEDURES PENDING AT DISCHARGE:FOLLOW-UP APPOINTMENTS ALREADY SCHEDULED WITH A [facility] PROVIDER:No future appointments.ALLERGIESAllerge n Reactions- Coconut Anaphylaxis- Baclofen Other: See Comments Migraines and lightheadedness- Lactose Diarrhea- Penicillins GI Upset, Shortness of Breath- [place] Hives- Vicodin [Hydrocodon* HivesDISCHARGE MEDICATION: Current Discharge Medication ListSTART taking these medicationsdexamethasone (DECADRON) 4 mgTake 4 mg by mouth twice daily with meals.Qty: 4 tablet Refills: 0moxifloxacin (AVELOX) 400 mgTake 400 mg by mouth once daily.Qty: 14 tablet Refills: 0CONTINUE these medications which have CHANGEDinsulin aspart U-100 (NovoLOG) 6 UnitsInject 6 Units subcutaneously three times daily.Qty: 15 Pen Refills: 11insulin degludec (TRESIBA) 25 UnitsInject 25 Units subcutaneously every morning.Qty: 27 mL Refills: 0CONTINUE these medications which have NOT CHANGEDalcohol swabs 1 applicationApply 1 application to affected area as needed.Qty: 400 Each Refills: 3Comments: Med-sync patient. If too soon, we will put new RX on hold fornext cycle.DULoxetine (CYMBALTA) 30 mg capsuleTAKE 1 CAPSULE EVERY DAYQty: 30 capsule Refills: 0Comments: Med-sync patient. If too soon, we will put new RX on hold fornext cycle.tiZANidine (ZANAFLEX) 4 mg tabletTAKE 1 TABLET TWICE DAILY NEEDEDQty: 60 tablet Refills: 0Comments: Med-sync patient. If too soon, we will put new RX on hold fornext cycle.verapamil (CALAN, ISOPTIN) 40 mg tabletTAKE 1 TABLET BY MOUTH THREE TIMES DAILYQty: 90 tablet Refills: 0Comments: Med-sync patient. If too soon, we will put new RX on hold fornext cycle.Associated Diagnoses:Chronic migraine without aura without statusmigrainosus, not intractableSUMAtriptan (IMITREX) 100 mg tabletTAKE 1 TABLET at time of FOR MIGRAINE. Repeat once in 2 (TWO) hours ifneeded. Do not use on more than 2 (TWO) days per given week.Qty: 27 tablet Refills: 0cholecalciferol (Vitamin D3) (VITAMIN D3) 50,000 UnitsTake 50,000 Units by mouth once each week.Qty: 12 capsule Refills: 0diclofenac sodium (VOLTAREN) 2 gApply 2 g to affected area four times daily.Qty: 1 Tube Refills: 3!! Blood-Glucose Meter monitoring kitGlucose Meter of Choice - Kit - Dx: Type 2 DM - Uncontrolled E11.65Qty: 1 Each Refills: 0!! blood sugar diagnostic (BLOOD GLUCOSE TEST) test stripTest blood sugar(s) 4-6 times daily. Dx: Type 2 DM - Uncontrolled E11.65Insulin: YesQty: 100 Strip Refills: 3metFORMIN ER (GLUCOPHAGE XR) 500 mg 24 hr tabletTake 2 tablets by mouth in the morning and 2 tablets in the evening.LACTOSE FREEQty: 120 tablet Refills: 5MAPAP 325 mg tabletTAKE 2 TABLETS BY MOUTH EVERY 6 HOURS NEEDED FOR HEADACHERefills: 0albuterol HFA (PROVENTIL HFA, VENTOLIN HFA) 2 PuffsInhale 2 Puffs as instructed every 6 hours as needed.Qty: 1 Inhaler Refills: 5triamcinolone (KENALOG) 1 applicationApply 1 application to affected area three times daily.Qty: 1 Bottle Refills: 0Associated Diagnoses:Rash and nonspecific skin eruptionindomethacin (INDOCIN) 25 mgTake 25 mg by mouth three times daily with meals.Qty: 45 capsule Refills: 0divalproex DR (DEPAKOTE) 500 mgTake 500 mg by mouth three times daily.Qty: 270 tablet Refills: 3nadolol (CORGARD) 40 mgTake 40 mg by mouth once daily.Qty: 180 tablet Refills: 1nortriptyline (PAMELOR) 10 mgTake 10 mg by mouth daily at bedtime.Qty: 90 capsule Refills: 1prochlorperazine (COMPAZINE) 10 mgTake 10 mg by mouth every 8 hours as needed.Qty: 60 tablet Refills: 1lancets (FREESTYLE LANCETS) 28 gauge miscTest blood sugar(s) 4-6 x times daily. Dx: 250.02. Insulin: YesQty: 200 Each Refills: 11lisinopril (ZESTRIL, PRINIVIL) 20 mgTake 20 mg by mouth once daily. LACTOSE FREE ONLYQty: 90 tablet Refills: 1Associated Diagnoses:Uncontrolled type 2 diabetes mellitus withoutcomplication, without long-term current use of insulin (HCC)!! blood sugar diagnostic (FREESTYLE LITE STRIPS) test stripTest blood sugar(s) 4-6 times daily. Dx: E11.65. Insulin: YesQty: 600 Strip Refills: 3insulin needles (DISPOSABLE) 1 Each1 Each as directed. TO BE USED DIRECTED. USE ONE NEEDLE FOR EACH DOSEQty: 500 Each Refills: 3mometasone-formoterol (DULERA) 2 PuffsInhale 2 Puffs as instructed twice daily.Qty: 3 Inhaler Refills: 3Comments: Med-sync patient.omeprazole (PriLOSEC) 20 mgTake 20 mg by mouth twice daily.Qty: 180 capsule Refills: 3Comments: Med-sync patient.nystatin (MYCOSTATIN) 1 applicationApply 1 application to affected area four times daily.Qty: 1 Bottle Refills: 0Associated Diagnoses:Intertrigodoxepin capsule 25 mgtake 1 to 2 capsules as needed for sleepRefills: 2FLUoxetine HCl (PROzac) 40 mgTake 40 mg by mouth every morning.Refills: 2risperiDONE (RISPERDAL) 1 mg tablettake 1 tablet every morning and 2 tablets at bedtimeRefills: 2!! COMPOUNDED PRESCRIPTIONMedical Bracelet Dx: E11.65Qty: 1 Each Refills: 0!! Lancing Device (LANCING DEVICE WITH LANCETS) miscUse 4x dailyQty: 100 Each Refills: 3Associated Diagnoses:Uncontrolled type 2 diabetes mellitus withoutcomplication, without long-term current use of insulin (HCC)!! Blood-Glucose Meter (FREESTYLE LITE METER) monitoring kitFreestyle LITE Meter Kit - Dx: Type 2 DM - Uncontrolled E11.65 Insulin:yes Use 4-6 times daily as instructedQty: 1 Each Refills: 0!! Lancing Device miscuse as directed for checking blood sugars - dx e11.9Qty: 1 Each Refills: 0CPAPMask (per patient preference) optional chin strap (if indicated) ,filters, tubing, humidifier and lifetime supplies.Qty: 1 Device Refills: 0TENS unit and electrodes cmpkUse as instructed. He is intolerant to many meds due to Lactoseintolerance. Based on muscle spasm and deconditiong, TENS is a goodoptionQty: 1 Device Refills: 0pregabalin (LYRICA) 75 mgTake 75 mg by mouth twice daily.Qty: 60 capsule Refills: 0Associated Diagnoses:Chronic left-sided low back pain with left-sidedsciatica!! COMPOUNDED PRESCRIPTIONBLOOD PRESSURE CUFF FOR HOME USE. DX: LABILE BLOOD PRESSUREQty: 1 Device Refills: 0Associated Diagnoses:Essential hypertension!! - Potential duplicate medications found. Please discuss with provider.At the day of discharge, patient was seen and examined. Vitals werereviewed and were stable. Swelling and pain significantly improved. Noother complaints. Plastic surgery has been seeing pt daily and [facility]no [facility] in [facility] for unclear reason). Italked to one yesterday and Dr Sorenson saw pt again today and talked to RN. Discharge planning discussed with patient and RN. Discussed with Marnie about insulin regimen. Physical examination showedGen: Alert, oriented, no distress, cooperativeHENT: mild swelling of L face (almost resolved)Eyes: non-ictericCV: RRR, normal S1,S2, no murmurResp: non-laboredGI: soft, ND, NTNeuo: no focal deficitMS: no LE edema, no deformityThe patient's risk for 30-day readmission is determined using thefollowing contributing factors:Pt variables contributing to increased readmission risk: 35 Active Medication Orders 11 Most Recent BUN Result 9.2 First Resulted Calcium During Admission 1 Previous ED Visit (6 mos.)? 1 Number of Previous ED Visits (6 mos.) 1 Insurance - Medicaid 1 Discharge Disposition - Home 1 History of Anemia 1 Active Anticoagulant 1 Number of Hospitalizations (12 mos.)TIME OF CARE: Discharge Management: I personally spent greater than 30minutes involved in the discharge management of this patient.SIGNATURE: Carolyn Byrnes MD PAGER/CONTACT #:DATE: February 27, 2018TIME: 1:47 PM [facility] CONSULT PROGon 02-27-2018 Protein mass conc HNO ID: [id number] thor: Shelbi Maye: EndocrinologyAuthor Type: PhysicianType: Consult Progress NoteFiled: 02/27/2018 2:02 PMNote Text:ENDOCRINOLOGY CONSULT PROGRESS NOTESERVICE DATE: 02/27/2018SERVICE TIME: 11:45amSubjectiveINTERVAL HPI: pt followed for diabetes mellitus, insulin requiring; doingwell on glargine 25 units daily, humalog for correction and metformin;better po intake; will need prandial insulin especially while on steroids;DIET FOOD CONSISTENCY CONTROLLEDRecent Labs [id number] -- -- 194* -- -- 146* -- 77GLUCOSEMETER 202* 196* -- 273* < > -- < > --< > = values in this interval not displayed.Current hospital medications:levoFLOXacin 750 mg in D5W 150 mL (LEVAQUIN) 750 mg INTRAVENOUS DAILYmetroNIDAZOLE 500 mg PREMIX piggyback (FLAGYL) 500 mg INTRAVENOUS q 8 Hinsulin lispro 6 Units pen (rapid acting) (HumaLOG KWIKPEN) 6 UnitsSUBCUTANEOUS w MEALSinsulin glargine 25 Units pen (long acting) (LANTUS SOLOSTAR, BASAGLARKWIKPEN) 25 Units SUBCUTANEOUS DAILY (8 AM)metFORMIN 1,000 mg tab(s) (GLUCOPHAGE) 1,000 mg ORAL BID w MEALSdexamethasone 4 mg tab(s) (DECADRON) 4 mg ORAL TID w MEALS[START ON 02/28/2018] dexamethasone 4 mg tab(s) (DECADRON) 4 mg ORAL BID wMEALSinsulin lispro pen (rapid acting) (HumaLOG KWIKPEN) SUBCUTANEOUS w MEALSalbuterol HFA 90 mcg/actuation 2 Puff (PROVENTIL HFA, VENTOLIN HFA) 2 PuffINHALATION q 6 H PRNergocalciferol (vitamin D2) 50,000 Units cap(s) (DRISDOL) 50,000 UnitsORAL q [address] mg tab(s) (DEPAKOTE) 500 mg ORAL TIDdoxepin 25 mg cap(s) (SINEquan) 25 mg ORAL HS PRNDULoxetine 30 mg cap(s) (CYMBALTA) 30 mg ORAL DAILYlisinopril 20 mg tab(s) (ZESTRIL, PRINIVIL) 20 mg ORAL DAILYnadolol 40 mg tab(s) (CORGARD) 40 mg ORAL DAILYacetaminophen 325 mg tab(s) (TYLENOL) 325 mg ORAL q 4 H PRNnortriptyline 10 mg cap(s) (PAMELOR) 10 mg ORAL AT BEDTIMEprochlorperazine 10 mg tab(s) (COMPAZINE) 10 mg ORAL q 8 H PRNrisperiDONE 1 mg tab(s) (RisperDAL) 1 mg ORAL DAILYverapamil 40 mg tab(s) (CALAN, ISOPTIN) 40 mg ORAL TIDtriamcinolone 0.025 % 1 application (KENALOG) 1 application TOPICAL TIDheparin 5,000 Units injection 5,000 Units SUBCUTANEOUS q 12 Hondansetron 4 mg tab(s) (ZOFRAN) 4 mg ORAL q 6 H PRNondansetron (PF) 4 mg injection (ZOFRAN) 4 mg INTRAVENOUS q 6 H PRNmagnesium hydroxide 400 mg/5 mL 30 mL (MOM) 30 mL ORAL DAILY PRNdocusate sodium 100 mg cap(s) (COLACE) 100 mg ORAL BID PRNbisacodyl 10 mg suppository (DULCOLAX) 10 mg RECTAL DAILY PRNacetaminophen 650 mg tab(s) (TYLENOL) 650 mg ORAL q 6 H PRNmorphine 1-2 mg injection 1-2 mg INTRAVENOUS q 4 H PRNdextrose 40 % 15 g 15 g ORAL PRNglucagon 1 mg injection (GLUCAGEN) 1 mg INTRAMUSCULAR PRNdextrose 50% in water 25 mL syringe 12.5 g INTRAVENOUS PRNrisperiDONE 2 mg tab(s) (RisperDAL) 2 mg ORAL AT BEDTIMEfluticasone-vilanterol 200-25 mcg/dose 1 Inhalation (BREO ELLIPTA) 1Inhalation INHALATION DAILYpantoprazole DR 40 mg tab(s) (PROTONIX) 40 mg ORAL DAILY (6 AM)ObjectivePHYSICAL EXAM:BP 136/79 Pulse 67 Temp (Src) 97.7 (Oral) Resp 18 Ht 5' 5 (1.65m) Wt 215 lb 3.2 oz (97.6kg) SpO2 100% BMI 35.81 kg/(m2).General: Well appearing, alert, in no acute distress, well-hydrated, wellnourished. and ObeseSkin: skin color, texture, turgor normal, no rashes or lesions.Head: normocephalic, no masses, lesions, tenderness or abnormalities.Eyes: PERLAOropharynx: moistNeck: Supple, no adenopathy; thyroid symmetric, normal size, no bruitsHeart: RRR without murmur, gallop, or rubs. No ectopyAbdomen: soft, non-tender, positive bowel soundsExtremities: no edema, no calluses or ulcers present.Peripheral Pulses: posterior tibial and doralis pedis pulses 2+ andsymmetricalDATA:Diagnostic tests reviewed for today's visit:Most recent labs and imaging results.Assessment/PlanDiabet es mellitus, insulin requiring, currently on decadron; at home onhigh doses of insulin however questionable compliance;BS 200's,currently on lantus at 25 units qam, metformin and humalog forcorrection only; would program humalog 6 units qac tid;For home regimen would recommend Tresiba (U200) to take 25 units daily(instead of lantus); continue Novolog 6 units qac tid (instead ofHumalog), metformin.?Facial cellulitis on antibiotics per ID.?SIGNATURE: Shelbi Weston MD PATIENT NAME: Victor Hugo AsifDATE: February 27, 2018 : 2:02 PM PAGER: [phone] [facility] Glucose Meteron 02-27-2018 Glucose mass conc 202 mg/dL High 70-99 [facility] Comment on above: Result Comment: ALISA IRIZARRY Performed By: #### G LMET ####[place] [address] Hemogram/Diffon 02-27-2018 Abs Immature Grans 0.14 thou/cmm High 0.00-0.05 [facility] Comment on above: Performed By: #### G LMET ####[place] [address] Abs. Baso 0.02 thou/cmm Normal 0.01-0.08 [facility] Comment on above: Result Comment: Smea r scanned; tech agrees with automated differential Performed By: #### G LMET ####[place] [address] Abs. Davison 0.31 thou/cmm Normal 0.30-0.82 [facility] Comment on above: Performed By: #### G LMET ####[place] [address] Abs. Neut (ANC) 14.48 thou/cmm High 1.78-5.38 [facility] Comment on above: Performed By: #### G LMET ####[place] [address] Basophils/100 WBC Auto (Bld) 0.1 % Normal [facility] Comment on above: Performed By: #### G LMET ####[place] [address] Eosinophils Auto #/vol (Bld) 0.00 thou/cmm Low 0.04-0.54 [facility] Comment on above: Performed By: #### G LMET ####[place] [address] Eosinophils/100 WBC Auto (Bld) 0.0 % Normal [facility] Comment on above: Performed By: #### G LMET ####[facility] [place], [place] [address] Immature Grans 0.90 % Normal [facility] Comment on above: Performed By: #### G LMET ####[address] [address] Lymphocytes Auto #/vol (Bld) 0.75 thou/cmm Low 0.84-2.85 [facility] Comment on above: Performed By: #### G LMET ####[address] [address] Lymphocytes/100 WBC Auto (Bld) 4.8 % Normal [facility] Comment on above: Performed By: #### G LMET ####[address] [address] Monocytes/100 WBC Auto (Bld) 2.0 % Normal [facility] Comment on above: Performed By: #### G LMET ####[place] [address] Seg Neutrophil 92.2 % Normal [facility] Comment on above: Performed By: #### G LMET ####[place] [address] Erythrocyte distribution width Auto Ratio (RBC) 13.1 % Normal 11.6-14.4 [facility] Comment on above: Performed By: #### G LMET ####[place] [address] Hematocrit Auto Volume Fraction (Bld) 34.8 % Low 40.1-51.0 [facility] Comment on above: Performed By: #### G LMET ####[address] [address] Hemoglobin mass conc (Bld) 11.3 g/dL Low 13.7-17.5 [facility] Comment on above: Performed By: #### G LMET ####[address] [address] MCH Auto Entitic mass (RBC) 26.7 pg Normal 25.7-32.2 [facility] Comment on above: Performed By: #### G LMET ####[facility] [place] [address] MCHC Auto mass conc (RBC) 32.5 % Normal 32.3-36.5 [facility] Comment on above: Performed By: #### G LMET ####[place] [address] MCV Auto Entitic volume (RBC) 82.1 fL Low 83.2-95.6 [facility] Comment on above: Performed By: #### G LMET ####[place] [address] Platelet mean volume Auto Entitic volume (Bld) 10.8 fL Normal 8.7-12.0 [facility] Comment on above: Performed By: #### G LMET ####[place] [address] Platelets Auto #/vol (Bld) 269 thou/cmm Normal 141-365 [facility] Comment on above: Performed By: #### G LMET ####[place] [address] RBC Auto #/vol (Bld) 4.24 mil/cmm Low 4.63-6.08 [facility] Comment on above: Performed By: #### G LMET ####[place] [address] RDW SD 39.1 fl Normal 36.1-45.8 [facility] Comment on above: Performed By: #### G LMET ####[place] [address] WBC Auto #/vol (Bld) 15.70 thou/cmm High 4.23-9.07 [facility] Comment on above: Performed By: #### G LMET ####[place] [address] MDRD GFRon 02-27-2018 GFR/1.73 sq M predicted among non-blacks MDRD vol rate/area (S/P/Bld) mL/min/{1.73_m2} Normal >60mL/min/ 1.73m2 [facility] Comment on above: Result Comment: If t he patient is , multiply the result by 1.210. Performed By: #### G FR ####[facility] [place] [id number] NURSING PROGon 02-27-2018 Protein mass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 DESIGNER.WARRANTY CLERK Work Phone: [facility] 01-06-2023 08:51-0400 Diastolic blood pressure 99 mm[Hg] Leanna Owens MD Work Phone: [facility] 01-06-2023 08:51-0400 Heart rate 85 /min Leanna Owens MD Work Phone: [facility] 01-06-2023 08:51-0400 Systolic blood pressure 157 mm[Hg] Leanna Owens MD Work Phone: [facility] 01-06-2023 08:48-0400 Body height 168.9 cm Leanna Owens MD Work Phone: [facility] 01-06-2023 08:48-0400 Body weight 99.07 kg Leanna Owens MD Work Phone: [facility] 01-06-2023 08:48-0400 Respiratory rate 18 /min Leanna Owens MD Work Phone: [facility] 12-24-2022 09:59-0400 Body mass index (BMI) [Ratio] 38.1 kg/m2 [facility] 12-24-2022 09:59-0400 Body temperature 98 [degF] [facility] 12-24-2022 09:59-0400 Body weight 103.87 kg [facility] 12-24-2022 09:59-0400 Diastolic blood pressure 110 mm[Hg] [facility] 12-24-2022 09:59-0400 Heart rate 98 /min [facility] 12-24-2022 09:59-0400 Respiratory rate 16 /min [facility] 12-24-2022 09:59-0400 SaO2% (BldA) [Mass fraction] 99 % [facility] 12-24-2022 09:59-0400 Systolic blood pressure 177 mm[Hg] [facility] 08-16-2022 09:35-0400 Body height 165.1 cm [facility] 08-16-2022 09:35-0400 Body mass index (BMI) [Ratio] 36 kg/m2 [facility] 08-16-2022 09:35-0400 Body temperature 97.8 [degF] [facility] 08-16-2022 09:35-0400 Body weight 98.15 kg [facility] 08-16-2022 09:35-0400 Diastolic blood pressure 78 mm[Hg] [facility] 08-16-2022 09:35-0400 Heart rate 76 /min [facility] 08-16-2022 09:35-0400 Respiratory rate 16 /min [facility] 08-16-2022 09:35-0400 SaO2% (BldA) [Mass fraction] 100 % [facility] 08-16-2022 09:35-0400 Systolic blood pressure 128 mm[Hg] [facility] 01-14-2022 14:26-0400 Body temperature 99.61 [degF] Nicole Zurawick ROOF DESIGNER.WARRANTY CLERK Work Phone: [facility] 01-14-2022 14:26-0400 Body weight 99.79 kg Nicole Zurawick ROOF DESIGNER.WARRANTY CLERK Work Phone: [facility] 01-14-2022 14:26-0400 Diastolic blood pressure 100 mm[Hg] Nicole Zurawick ROOF DESIGNER.WARRANTY CLERK Work Phone: [facility] 01-14-2022 14:26-0400 Heart rate 80 /min Nicole Zurawick ROOF DESIGNER.WARRANTY CLERK Work Phone: [facility] 01-14-2022 14:26-0400 Respiratory rate 20 /min Nicole Zurawick ROOF DESIGNER.WARRANTY CLERK Work Phone: [facility] 01-14-2022 14:26-0400 Systolic blood pressure 146 mm[Hg] Nicole Zurawick ROOF DESIGNER.WARRANTY CLERK Work Phone: [facility] 01-08-2022 21:05-0400 Body height 165.1 cm [facility] Work Phone: 01-08-2022 21:05-0400 Body mass index (BMI) [Ratio] 35.9 kg/m2 [facility] Work Phone: 01-08-2022 21:05-0400 Body temperature 98.7 [degF] [facility] Work Phone: 01-08-2022 21:05-0400 Body weight 97.97 kg [facility] Work Phone: 01-08-2022 21:05-0400 Diastolic blood pressure 112 mm[Hg] [facility] Work Phone: 01-08-2022 21:05-0400 Heart rate 108 /min [facility] Work Phone: 01-08-2022 21:05-0400 Respiratory rate 18 /min [facility] Work Phone: 01-08-2022 21:05-0400 SaO2% (BldA) [Mass fraction] 100 % [facility] Work Phone: 01-08-2022 21:05-0400 Systolic blood pressure 167 mm[Hg] [facility] Work Phone: 12-23-2021 10:53-0400 Body weight 99.16 kg Nicole [facility] ROOF DESIGNER.WARRANTY CLERK Work Phone: [facility] 12-23-2021 10:53-0400 Respiratory rate 14 /min [employer] ROOF DESIGNER.[facility] Work Phone: [facility] 12-18-2021 11:34-0400 Body height 165.1 cm [facility] Work Phone: 12-18-2021 11:34-0400 Body mass index (BMI) [Ratio] 34.6 kg/m2 [facility] Work Phone: 12-18-2021 11:34-0400 Body temperature 97.9 [degF] [facility] Work Phone: 12-18-2021 11:34-0400 Body weight 94.34 kg [facility] Work Phone: 12-18-2021 11:34-0400 Diastolic blood pressure 92 mm[Hg] [facility] Work Phone: 12-18-2021 11:34-0400 Heart rate 116 /min [facility] Work Phone: 12-18-2021 11:34-0400 Respiratory rate 16 /min [facility] Work Phone: 12-18-2021 11:34-0400 SaO2% (BldA) [Mass fraction] 100 % [facility] Work Phone: 12-18-2021 11:34-0400 Systolic blood pressure 123 mm[Hg] [facility] Work Phone: 10-22-2021 10:46-0400 Body height 164 cm Li Sun PA-C Work Phone: [facility] 10-22-2021 10:46-0400 Body temperature 98.29 [degF] Li Sun PA-C Work Phone: [facility] 10-22-2021 10:46-0400 Body weight 97.98 kg Li Sun PA-C Work Phone: [facility] 10-22-2021 10:46-0400 Diastolic blood pressure 98 mm[Hg] Li Sun PA-C Work Phone: [facility] 10-22-2021 10:46-0400 Heart rate 73 /min Li Sun PA-C Work Phone: [facility] 10-22-2021 10:46-0400 Systolic blood pressure 157 mm[Hg] Li Sun PA-C Work Phone: [facility] 10-07-2021 09:43-0400 Body height 165.1 cm Kinga Ash PA-C Work Phone: [facility] 10-07-2021 09:43-0400 Body weight 104.33 kg Kinga Ash PA-C Work Phone: [facility] 10-07-2021 09:43-0400 Diastolic blood pressure 116 mm[Hg] Kinga Ash PA-C Work Phone: [facility] 10-07-2021 09:43-0400 Heart rate 90 /min Kinga Ash PA-C Work Phone: [facility] 10-07-2021 09:43-0400 Respiratory rate 18 /min Kinga Ash PA-C Work Phone: [facility] 10-07-2021 09:43-0400 SaO2% (BldA) [Mass fraction] 100 % Kinga Ash PA-C Work Phone: [facility] 10-07-2021 09:43-0400 Systolic blood pressure 156 mm[Hg] Kinga Aleman PA-C Work Phone: [facility] 08-31-2021 08:06-0400 Body height 165.1 cm [facility] 08-31-2021 08:06-0400 Body weight 104.33 kg [facility] 08-31-2021 08:06-0400 Heart rate 54 /min [facility] 01-01-2020 13:34-0400 Body Temperature 97.81 [degF] [facility] [place] 01-01-2020 13:34-0400 BP Diastolic 88 mm[Hg] [facility] [place] 01-01-2020 13:34-0400 BP Systolic 133 mm[Hg] [place] 01-01-2020 13:34-0400 Pulse (Heart Rate) 69 /min [facility] [place] 01-01-2020 13:34-0400 Pulse Oximetry 98 % [facility] [place] 01-01-2020 13:34-0400 Respiratory Rate 18 /min [facility] [place] 12-30-2019 11:42-0400 BMI (Body Mass Index) 38.94 kg/m2 [facility] [place] 12-30-2019 11:42-0400 Body weight 106.14 kg [place] 12-30-2019 11:42-0400 Height 165.1 cm [place] 12-25-2019 15:00-0400 BP Diastolic 104 mm[Hg] [facility] [place] 12-25-2019 15:00-0400 BP Systolic 154 mm[Hg] [facility] [place] 12-25-2019 15:00-0400 Pulse (Heart Rate) 70 /min [place], [place] 12-25-2019 14:16-0400 BMI (Body Mass Index) 38.94 kg/m2 Gama Cisneros [facility], [place] 12-25-2019 14:16-0400 Body Temperature 97.3 [degF] [facility] [place] 12-25-2019 14:16-0400 Body weight 106.14 [facility] [place] 12-25-2019 14:16-0400 Height 165.1 cm [facility] [place] 12-25-2019 14:16-0400 Pulse Oximetry 100 % [facility] [place] 12-25-2019 14:16-0400 Respiratory Rate 20 /min [facility] [place] 07-18-2019 15:10-0500 BMI (Body Mass Index) 39.44 kg/m2 Gama PRITCHARD Work Phone: 07-18-2019 15:10-0500 Body Temperature 98.49 [degF] Gama PRITCHARD Work Phone: 07-18-2019 15:10-0500 Body weight 107.5 kg Gama PRITCHARD Work Phone: 07-18-2019 15:10-0500 BP Diastolic 108 mm[Hg] Gama PRITCHARD Work Phone: 07-18-2019 15:10-0500 BP Systolic 157 mm[Hg] Gama PRITCHARD Work Phone: 07-18-2019 15:10-0500 Height 165.1 cm Gama PRITCHARD Work Phone: 07-18-2019 15:10-0500 Pulse (Heart Rate) 89 /min Gama PRITCHARD Work Phone: 07-18-2019 15:10-0500 Pulse Oximetry 98 % Gama PRITCHARD Work Phone: 07-18-2019 15:10-0500 Respiratory Rate 16 /min Gama PRITCHARD Work Phone: Encounters Encounter Date Encounter Type Care Provider Facility Start: 03-05-2025 Non-patient / Non-visit Dr. Hoa Haskins MD -[facility] Work Phone: Start: 03-05-2025 ambulatory Emanuel Capps Facility:[facility] Start: 03-05-2025 Non-patient / Non-visit Dr. Antonio JOSEPH -[facility] Start: 03-04-2025 End: 03-05-2025 ambulatory Giovani [facility] Facility:[facility] Start: 03-04-2025 End: 03-05-2025 Evaluation and management of inpatient Dr. Hoa Haskins MD -[facility] Work Phone: Start: 03-04-2025 End: 03-05-2025 observation encounter Javid Winter MD Work Phone: -[facility] Care [facility] Start: 01-28-2025 End: 02-05-2025 Telephone encounter Ranjit Azar DO Work Phone: [facility] [place] Comment on above: Insurance Authorizat ion (Lico 3 sensors) Start: 01-27-2025 End: 01-27-2025 Office outpatient visit 40 minutes Lance Pulido APRN.WARRANTY CLERK Work Phone: [facility] [place] Comment on above: Type 2 diabetes mark itus with diabetic neuropathy, with long- term current use of insulin (HCC) (Primary Dx); Vitamin D deficiency; Noncompliance; Obesity, Class I, BMI 30-34.9 Start: 01-27-2025 End: 01-27-2025 ambulatory RANJIT AZAR Facility:[facility] Start: 01-21-2025 End: 01-21-2025 Refill Ranjit Azar DO Work Phone: [facility] [place] Comment on above: Refill Request Start: 01-21-2025 End: 01-21-2025 Emergency department patient visit Javid Winter MD Work Phone: -Emergency Department Work Phone: Start: 12-30-2024 End: 01-02-2025 ambulatory Leanna Owens MD Work Phone: Neurology Comment on above: LICENSE FORM Start: 12-20-2024 End: 12-20-2024 Patient encounter procedure Leanna Owens MD Work Phone: Neurology Comment on above: Seizure-like activit y (HCC) (Primary Dx) Start: 12-20-2024 End: 12-20-2024 ambulatory Leanna Owens MD Work Phone: Neurology Comment on above: LICENSE Start: 07-01-2024 End: 07-11-2024 Telephone encounter Nicole Alberto Bass ROOF DESIGNER.WARRANTY CLERK Work Phone: [facility] [place] Comment on above: Results Start: 06-29-2024 End: 06-29-2024 ambulatory RANJIT L AZAR Facility:[facility] Start: 06-19-2024 End: 06-20-2024 Telephone encounter Ranjit Raion DO Work Phone: [facility] [place] Comment on above: Medication Problem Start: 06-19-2024 End: 06-19-2024 Office outpatient visit 40 minutes Love Nguyen APRN.WARRANTY CLERK Work Phone: [facility] [place] Comment on above: Well adult exam ([facility] harriet Dx); Type 2 diabetes mellitus with diabetic neuropathy, with long-term current use of insulin (HCC); Other migraine without status migrainosus, not intractable; Seizure disorder (HCC); Mixed hyperlipidemia; Essential hypertension; Screening for thyroid disorder; Vitamin D deficiency; Screening for depression; Encounter for screening examination for other mental health and behavioral disorders Start: 06-19-2024 End: 06-19-2024 Patient encounter status Love Nguyen APRN.WARRANTY CLERK Work Phone: [facility] Work Phone: Start: 06-19-2024 End: 06-19-2024 ambulatory RANJIT L AZAR Facility:[facility] Start: 06-19-2024 Encounter for genera l adult medical examination without abnormal findings LOVE NGUYEN [facility] Start: 02-03-2024 End: 02-06-2024 Refill Ranjit L Azar DO Work Phone: [facility] Comment on above: Refill Request Start: 10-30-2023 Nurse Triage Ida Wilkes LPN NURSE FORM MAKER PLASTER Comment on above: Refill Request Start: 08-10-2023 ambulatory Ranjit claudio DO Work Phone: [facility] Comment on above: SENSORS Start: 08-07-2023 ambulatory Ranjit claudio DO Work Phone: [facility] Comment on above: MEDICAL INSURANCE IS SUES Start: 07-23-2023 ambulatory Ranjit Medeiros son DO Work Phone: [facility] Comment on above: Sensor freestyle lico 3 Start: 07-21-2023 ambulatory Anna smith APRN.WARRANTY CLERK Work Phone: Neurology Comment on above: Question Start: 07-20-2023 E-mail encounter fro m caregiver Ani Carson [facility] Work Phone: [facility] Start: 07-20-2023 Patient encounter procedure Ani aCrson [facility] Work Phone: [facility] Comment on above: Diabetes appointment with pharmacist Start: 07-13-2023 End: 07-13-2023 [facility] Leanna Owens MD Work Phone: Neurology Comment on above: Seizure disorder (HC C) (Primary Dx) Start: 05-31-2023 End: 05-31-2023 Emergency department patient visit Dr. Ranjit Azar Work Phone: [facility]-Emergency Department Work Phone: Start: 04-17-2023 Telephone encounter Ani tabares [facility] Work Phone: [facility] Comment on above: Missed Appointment Start: 04-07-2023 Refill Ranjit claudio DO Work Phone: [facility] Comment on above: Refill Request Start: 04-03-2023 End: 04-03-2023 ambulatory Ani Carson [facility] Work Phone: [facility] Comment on above: Type 2 diabetes mark itus with diabetic neuropathy, with long- term current use of insulin (HCC) (Primary Dx) Start: 04-03-2023 End: 04-03-2023 Telemedicine consultation with patient Ani Carson [facility] Work Phone: [facility] Start: 03-21-2023 ambulatory Ranjit Medeiros son DO Work Phone: [facility] Comment on above: AUTO EJECT EMGALITY Start: 03-21-2023 Telephone encounter Ranjit apblo DO Work Phone: [facility] Comment on above: Medication Problem Start: 03-14-2023 Telephone encounter Ranjit pablo DO Work Phone: [facility] [place] Comment on above: Insurance Authorizat ion ([employer] ) Start: 03-13-2023 Refill Ranjit claudio DO Work Phone: [facility] [place] Comment on above: Refill Request Start: 03-10-2023 Telephone encounter Patricia Tran [facility] Work Phone: [facility] Comment on above: Medication Follow-up Start: 02-13-2023 Telephone encounter Ranjit pablo DO Work Phone: [facility] Comment on above: Medication Question Start: 02-11-2023 ambulatory Ranjit Medeiros son DO Work Phone: [facility] Comment on above: Auto-EJECT Start: 02-10-2023 Refill Marko Cian PRN.CNP Work Phone: Neurology Comment on above: Refill Request Start: 02-09-2023 Non-patient / Non-visit Dr. Lillian Azar Work Phone: [facility] Work Phone: Start: 02-08-2023 End: 02-09-2023 Evaluation and management of inpatient [facility] Work Phone: Start: 02-02-2023 Telephone encounter Ranjit pablo DO Work Phone: [facility] [place] Comment on above: Insurance Authorizat ion Start: 01-31-2023 ambulatory Ranjit claudio DO Work Phone: [facility] [place] Comment on above: MEDICINE COLLECTION AT THIS POINT Start: 01-31-2023 Telephone encounter Zaria Guillermo [facility] Comment on above: New Primary Care Pha rmacy Appt. Start: 01-30-2023 End: 01-30-2023 Patient encounter procedure Love Nguyen APRN.WARRANTY CLERK Work Phone: [facility] [place] Comment on above: Type 2 diabetes mark itus with diabetic neuropathy, with long- term current use of insulin (HCC) (Primary Dx) Start: 01-25-2023 Telephone encounter Ranjit Heather pablo DO Work Phone: [facility] [place] Comment on above: Tens Unit Start: 01-23-2023 Refill [facility] Start: 01-18-2023 Telephone encounter Leanna chaudhry MD Work Phone: Neurology Start: 01-17-2023 End: 01-17-2023 Subsequent hospital visit by physician Yoel Romero (I-Stat/3t) Work Phone: Radiology Comment on above: 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, unspecified epilepsy type (HCC) [G40.909] Start: 01-06-2023 End: 01-06-2023 Patient encounter procedure Leanna Owens MD Work Phone: Neurology Comment on above: 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, unspecified epilepsy type (HCC) (Primary Dx); Vitamin D deficiency; Psychophysiologic insomnia Start: 12-24-2022 End: 12-24-2022 Emergency department patient visit [facility] Work Phone: Start: 12-08-2022 Refill Ranjit claudio DO Work Phone: [facility] Comment on above: Refill Request Start: 11-01-2022 Telephone encounter Danilo may APRN.WARRANTY CLERK Work Phone: [facility] Comment on above: Results Start: 09-26-2022 Refill Ranjit Medeiros son DO Work Phone: [facility] Comment on above: Refill Request Start: 09-23-2022 Refill Ranjit Medeiros son DO Work Phone: [facility] Comment on above: Refill Request Start: 09-16-2022 Telephone encounter Anna Joya ROOF DESIGNER.WARRANTY CLERK Work Phone: Neurology Comment on above: Rejected CMN Start: 08-16-2022 End: 08-16-2022 [facility] Start: 08-05-[address] h[address] ROOF DESIGNER.WARRANTY CLERK Work Phone: [facility] Comment on above: Results Start: 08-01-2022 End: 08-01-2022 Subsequent hospital visit by physician Xr [facility] Work Phone: Radiology Comment on above: Ankle arthritis [M19 .079] Start: 08-01-2022 End: 08-01-2022 Patient encounter procedure Ray Renata Work Phone: Podiatry Comment on above: Ankle arthritis (Divina harriet Dx); Arthritis of subtalar joint; Bilateral foot-drop Start: 07-28-2022 Refill Marko Venedocia A PRN.WARRANTY CLERK Work Phone: Neurology Comment on above: Refill Request Start: 06-03-2022 Refill Ranjit Medeiros son DO Work Phone: [facility] Comment on above: Refill Request Start: 05-09-2022 Refill Ranjit Medeiros son DO Work Phone: [facility] Comment on above: Refill Request Start: 05-06-2022 Refill Marko Venedocia A PRN.WARRANTY CLERK Work Phone: Neurology Comment on above: Refill Request Start: 04-08-2022 Refill Ranjit Medeiros son DO Work Phone: [facility] [place] Comment on above: Refill Request Start: 04-05-2022 Refill Ranjit claudio DO Work Phone: [facility] [place] Comment on above: Refill Request Start: 03-25-2022 ambulatory Ranjit claudio DO Work Phone: [facility] [place] Comment on above: TRANSPORTATION Start: 02-14-2022 End: 02-14-2022 Distance Health Leanna Owens MD Work Phone: Neurology Comment on above: Seizure disorder (HC C) (Primary Dx) Start: 02-11-2022 Refill Kinga Aleman PA-C Work Phone: Neurology Comment on above: Refill Request Start: 02-03-2022 ambulatory Ranjit claudio DO Work Phone: [facility] Comment on above: Novolog Start: 02-01-2022 Telephone encounter Ranjit pablo DO Work Phone: [facility] Comment on above: medication clarifica tion Start: 01-25-2022 End: 01-25-2022 [facility] [place] [facility] Comment on above: Spirometry Start: 01-25-2022 End: 01-25-2022 Patient encounter procedure Pulm [facility] Work Phone: [facility] Start: 01-19-2022 ambulatory Love boyd ROOF DESIGNER.WARRANTY CLERK Work Phone: [facility] Comment on above: Question regarding L VEF TRANSTHORACIC ECHO Start: 01-14-2022 End: 01-14-2022 Patient encounter procedure Nicole Roberts ROOF DESIGNER.WARRANTY CLERK Work Phone: [facility] Comment on above: Fall, subsequent enc ounter (Primary Dx); Scratches Start: 01-08-2022 End: 01-08-2022 [facility] Start: 12-24-2021 Telephone encounter Nicole shelton ROOF DESIGNER.WARRANTY CLERK Work Phone: [facility] [place] Comment on above: Results Start: 12-23-2021 End: 12-23-2021 Patient encounter procedure Nicole Roberts WARRANTY CLERK Work Phone: [facility] [place] Comment on above: Syncope, unspecified syncope type (Primary Dx); Type 2 diabetes mellitus without complication, with long-term current use of insulin (HCC); Seizure disorder (HCC); Obesity, Class II, BMI 35-39.9; Dizziness Start: 12-18-2021 End: 12-18-2021 [facility] Start: 12-16-2021 End: 12-16-2021 Patient encounter procedure Leanna Owens MD Work Phone: Neurology Comment on above: APPOINTMENT CANCELLE D Start: 12-16-2021 End: 12-16-2021 Telemedicine consultation with patient Leanna Owens MD Work Phone: [facility] Start: 11-08-2021 End: 11-08-2021 ambulatory Deb Azar PT Work Phone: [facility] Comment on above: Arthritis of foot; Polyarthralgia; Chronic pain of both ankles; Limited joint range of motion (ROM) Start: 10-24-2021 Telephone encounter Lenora Bajwa Work Phone: Rheumatology Comment on above: Results Start: 10-22-2021 End: 10-22-2021 Patient encounter procedure Lenora Caldwell PA-C Work Phone: Rheumatology Comment on above: Polyarthralgia (Prim paige Dx); Arthritis of foot; Chronic pain of both ankles; History of vitamin D deficiency; Positive GARCÍA (antinuclear antibody); Limited joint range of motion (ROM); Fibromyalgia; Seizure disorder (HCC); Asthma, unspecified asthma severity, unspecified whether complicated, unspecified whether persistent; PILAR (obstructive sleep apnea); BMI 36.0-36.9,adult; Type 2 diabetes mellitus with diabetic neuropathy, with long-term current use of insulin (HCC); Falls frequently Start: 10-21-2021 End: 10-21-2021 Patient encounter procedure Ray Yanez Work Phone: Podiatry Comment on above: Ankle arthritis (Divina harriet Dx); Arthritis of subtalar joint; Weakness of left leg Start: 10-13-2021 Telephone encounter Ranjit pablo DO Work Phone: [facility] [place] Comment on above: Insurance Authorizat ion Start: 10-07-2021 End: 10-07-2021 Patient encounter procedure Kinga Aleman PA-C Work Phone: Neurology Comment on above: Seizure disorder (HC C) Start: 09-30-2021 Orders Only Raygaby aguiar Work Phone: Podiatry Comment on above: Arthritis of foot (P rimary Dx) Appointment Medication Request Refill Request Start: 09-27-2021 ambulatory Ranjit claudio DO Work Phone: [facility] [place] Comment on above: NEED NEW LICO CANDELARIA SHANKAR Start: 09-23-2021 End: 09-23-2021 Telemedicine consultation with patient Love Nguyen MAX Work Phone: [facility] Start: 09-23-2021 End: 09-23-2021 ambulatory Ranjit Azar DO Work Phone: [facility] [place] Comment on above: Hiccups Type 2 diabetes mark itus with diabetic neuropathy, with long-term current use of insulin (HCC) (Primary Dx); 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, essential; Obesity, Class II, BMI 35-39.9; Ankle arthritis Start: 09-23-2021 Telephone encounter Ray Garber Work Phone: Podiatry Comment on above: Patient Update Start: 09-20-2021 ambulatory Nancy Lopez RN Am bulatory Care Management Start: 09-20-2021 Telephone encounter Ray Garber Work Phone: Podiatry Comment on above: Patient Update Start: 09-15-2021 ambulatory Ranjit Heather claudio DO Work Phone: [facility] [place] Comment on above: Sugar levels Sensors Start: 09-08-2021 Patient Outreach Nancy Cid Cut [employer] Machine Helper Management Comment on above: Transition Of Care ( ([facility] D/C, 09-07-2021, TCM INITIAL OUTREACH, 1st ATTEMPT,, LVM) Start: 09-06-2021 Chart abstracting Manuelito boyd [facility] Comment on above: Informed Consent (IR B 12-1000) Start: 08-31-2021 End: 08-31-2021 [facility] Virtual Pre Anesthesia Comment on above: Pre-op evaluation (P rimary Dx); Ankle arthritis; Seizure disorder (HCC); Type 2 diabetes mellitus with diabetic neuropathy, with long-term current use of insulin (HCC); Essential hypertension; PILAR (obstructive sleep apnea); Asthma, unspecified asthma severity, unspecified whether complicated, unspecified whether persistent; Undifferentiated schizophrenia ([facility]); Class 2 obesity due to excess calories with body mass index (BMI) of 38.0 to 38.9 in adult, unspecified whether serious comorbidity present Sugar Levels Start: 08-31-2021 End: 08-31-2021 Preprocedural examination done Pacc Virtual Pre Anesthesia Start: 08-27-2021 Telephone encounter Ray Garber Work Phone: Podiatry Comment on above: Schedule Surgery Start: 04-14-2021 End: 04-14-2021 Subsequent hospital visit by physician Levon [facility] [place] Work Phone: Radiology Comment on above: Lymphadenopathy [R59 .1] Start: 12-30-2019 End: 01-01-2020 Evaluation and management of inpatient Gama Ludwig Work Phone: [facility] Comment on above: Osteomyelitis of man dible (Primary Dx) Start: 12-25-2019 End: 12-25-2019 Subsequent hospital visit by physician Gama Ludwig Work Phone: [facility] Pre-Admit Testing Comment on above: Arrived Start: 08-02-2019 End: 08-02-2019 Subsequent hospital visit by physician Preethi Brush Work Phone: [facility] Comment on above: Chest pain, unspecif ied type; PILAR (obstructive sleep apnea); Non-adherence to medical treatment; Encounter for pre-operative cardiovascular clearance Start: 07-18-2019 End: 07-18-2019 Subsequent hospital visit by physician Gama Ludwig Work Phone: [facility]mit [facility] Comment on above: Arrived Start: 02-24-2018 End: 02-27-2018 Evaluation and management of inpatient MCKENZIE ZAMARRIPA Facility:[facility] Start: 01-26-2018 End: 01-29-2018 Evaluation and management of inpatient RANJIT AZAR Facility:[facility] Procedures Date Procedure Procedure Detail Performing Clinician Start: 03-05-2025 Estimated creatinine clearance Javid Winter MD Work Phone: Start: 03-04-2025 Cardiovascular stres s test using pharmacologic stress agent Javid Winter MD Work Phone: Start: 03-04-2025 Radiologic exam ches t 2 views Javid Winter MD Work Phone: Start: 03-04-2025 D-dimer assay, quantitative Javid Winter MD Work Phone: Comment on above: NORMAL D-Dimer level (<0.50) indicates no DVT or PE. Start: 01-27-2025 Hemoglobin A1c/Hemoglobin.total in Blood [facility] Provider Start: 01-21-2025 Estimated creatinine clearance Javid Winter MD Work Phone: Start: 01-21-2025 CT of head without contrast Javid Wniter MD Work Phone: Start: 06-19-2024 Hemoglobin A1c/Hemoglobin.total in Blood Love Nguyen ROOF DESIGNER.WARRANTY CLERK Work Phone: Start: 06-19-2024 Adult depression scr eening assessment Loveeverardo Nguyen ROOF DESIGNER.WARRANTY CLERK Work Phone: Start: 05-31-2023 Radiologic examinati on of knee Dr. Ranjit Azar Work Phone: Start: 02-08-2023 CT of head without contrast Start: 01-30-2023 Hemoglobin A1c/Hemoglobin.total in Blood Love Nguyen ROOF DESIGNER.WARRANTY CLERK Work Phone: Start: 01-17-2023 Mri brain brain stem w/o contrast material Leanna Owens MD Work Phone: Start: 08-01-2022 Radex ankle complete minimum 3 views Ray Yanez Work Phone: Start: 02-12-2022 Adult depression scr eening assessment Leanna Owens MD Work Phone: Start: 01-25-2022 Nitric oxide gas determination Erika Gallagher MD Work Phone: Start: 01-25-2022 Brncdilat rspse spmt ry pre&post-brncdilat admn Erika Gallagher MD Work Phone: Start: 01-14-2022 Adult depression scr eening assessment Nicole Zacherycat ROOF DESIGNER.WARRANTY CLERK Work Phone: Start: 01-08-2022 Plain x-ray of pelvi s and lower extremity Start: 01-08-2022 Plain X-ray of shoulder Start: 01-08-2022 Plain x-ray of wrist Start: 12-23-2021 Ecg routine ecg w/le ast 12 lds w/i&r [facility] Provider Start: 12-18-2021 Echography of scrotu m and contents Start: 12-09-2021 Adult depression scr eening assessment Leanna Owens MD Work Phone: Start: 10-20-2021 Adult depression scr eening assessment Ray Yanez Work Phone: Start: 09-21-2021 Adult depression scr eening assessment Ranjit Azar DO Work Phone: Start: 07-21-2021 Adult depression scr eening assessment [facility] Start: 04-14-2021 Radiologic exam ches t 2 views Love Nguyen ROOF DESIGNER.WARRANTY CLERK Work Phone: Start: 01-01-2020 Gluc bld gluc mntr d ev cleared fda spec home use Gama Ludwig Work Phone: Start: 12-31-2019 Radiologic examinati on mandiple prtl <4 views Wolfgang Cheng Work Phone: Start: 12-31-2019 Basic metabolic pane l calcium total Gama Ludwig Work Phone: Start: 12-31-2019 Blood count complete automated Gama Cain MTailor Work Phone: Start: 12-30-2019 OPERATIVE REPORT 3m Sca nning Start: 12-30-2019 Gluc bld gluc mntr d ev cleared fda spec home use Gama Cain MTailor Work Phone: Start: 12-30-2019 Culture bacterial an y source anaerobic iso&id Gama Cain MTailor Work Phone: Start: 12-30-2019 Culture bacterial bl ood aerobic w/id isolates Gama Cain MTailor Work Phone: Start: 12-30-2019 BASIC METABOLIC PANE L W/ REFLEX TO MG FOR LOW K Orly Vidal Dmitri Work Phone: Start: 12-30-2019 Blood count hemoglobin Orly Vidal Dmitri Work Phone: Start: 12-30-2019 Gluc bld gluc mntr d ev cleared fda spec home use Gama Cain MTailor Work Phone: Start: 08-02-2019 Echo tthrc r-t 2d w/wom-mode compl spec&colr d Preethi Brush Work Phone: Start: 08-02-2019 Myocardial spect mul tiple studies Preethi Brush Work Phone: Start: 07-18-2019 BASIC METABOLIC PANE L W/ REFLEX TO MG FOR LOW K Gama Cain MTailor Work Phone: Start: 07-18-2019 Blood count complete auto&auto difrntl wbc Gama Cain MTailor Work Phone: Start: 07-18-2019 Ecg routine ecg w/le ast 12 lds w/i&r Orly Rizvi Work Phone: Plan of Treatment Date Care Activity Detail Author Start: 08-20-2033 Shingles Vaccine (1 of 2) Shingles Vaccine (1 of 2) [facility] Work Phone: Start: 08-25-2026 Annual PCP Team Chronic Disease Visit Annual PCP Team Chronic Disease Visit [facility] Start: 01-27-2026 HPV Vaccine (1 - 3-dose SCDM series) HPV Vaccine (1 - 3-dose SCDM series) [facility] Comment on above: Postponed from 08/20/2010 (Declined at t his time) Start: 06-29-2025 Glaucoma screening Dilated Retinal Exam [facility] Start: 06-29-2025 Hepatitis B screening Urine Albumin:Creatinine Ratio [facility] Start: 06-29-2025 Hepatitis B surface antibody level LDL Cholesterol [facility] Start: 06-19-2025 Annual PCP Team Chronic Disease Visit Annual PCP Team Chronic Disease Visit [facility] Start: 06-19-2025 Anxiety Screening Anxiety Screening [facility] Start: 06-19-2025 Depression Screening Depression Screening [facility] Start: 06-19-2025 Urine microalbumin profile DTaP,Tdap,Td Vaccine (1 - Tdap) [facility] Comment on above: Postponed from 08/20/2002 (Declined at t his time) Start: 05-05-2025 End: 05-05-2025 Patient encounter procedure 05/05/2025 1:20 PM EST Office Visit [facility] [address] [place] [address] Ranjit Azar, [address] [place] [address] follow up [facility] Comment on above: follow up Start: 04-29-2025 Hemoglobin A1c measurement HbA1C [facility] Start: 03-05-2025 Patient discharge [facility] Start: 03-05-2025 [facility] Start: 03-04-2025 Following clinical pathway protocol [facility] Start: 03-04-2025 Ambulation without limitation [facility] Start: 03-04-2025 Assessment of risk of venous thromboembolism [facility] Start: 03-04-2025 Care regimes management [facility] Start: 03-04-2025 Insertion of catheter into peripheral vein [facility] Start: 03-04-2025 Notification of physician [facility] Start: 03-04-2025 Oxygen therapy [facility] Start: 03-04-2025 Providing care according to standard [facility] Start: 03-04-2025 End: 03-04-2025 [facility] Start: 03-04-2025 Verification routine [facility] Start: 03-04-2025 Admission procedure [facility] Start: 03-04-2025 [facility] Start: 02-03-2025 Influenza vaccination Influenza Vaccine (#1) [facility] Start: 01-27-2025 End: 01-27-2025 Patient encounter procedure 01/27/2025 10:20 AM EDT Office Visit Family [facility] [address] [place], [place] [id number] Lance Pulido APRN.WARRANTY CLERK [address] [place], [place] [id number] 6 mo med review [facility] Comment on above: 6 mo med review Start: 01-21-2025 [facility] Start: 12-02-2024 Influenza vaccination Influenza Vaccine (#1) [facility] Comment on above: Postponed from 02/04/2024 (Declined at t his time) Start: 09-29-2024 End: 12-29-2024 25-hydroxyvitamin D3 [Mass/volume] in Serum or Plasma VITAMIN D 25 HYDROXY Lab Routine Vitamin D deficiency Expected: 09/29/2024, Expires: 12/29/2024 [facility] Work Phone: Comment on above: Expected: 09/29/2024, Expires: Start: 09-17-2024 Hemoglobin A1c measurement HbA1C [facility] Start: 08-02-2024 End: 08-02-2024 Patient encounter procedure 08/02/2024 9:00 AM EST Office Visit Neurology [address] [place] [address] Leanna Owens MD [address] [facility] [address] [place] [address] Seizure disorder (HCC) [G40.909] Neurology Comment on above: Seizure disorder (HCC) [G40.909] Start: 07-22-2024 End: 07-22-2024 Patient encounter procedure 07/22/2024 10:00 AM EST Office Visit [facility] [address] [place] [address] Nicole Bass APRN.WARRANTY CLERK [address] [place] [address] dm follow up [facility] Comment on above: dm follow up Start: 06-19-2024 End: 09-18-2024 25-hydroxyvitamin D3 [Mass/volume] in Serum or Plasma VITAMIN D 25 HYDROXY Lab Routine Well adult exam Vitamin D deficiency Expected: 06/19/2024, Expires: 09/18/2024 [facility] Comment on above: Expected: 06/19/2024, Expires: Start: 06-19-2024 End: 09-18-2024 CBC panel - Blood by Automated count COMPLETE BLOOD COUNT Lab Routine Essential hypertension Well adult exam Expected: 06/19/2024, Expires: 09/18/2024 [facility] Comment on above: Expected: 06/19/2024, Expires: Start: 06-19-2024 End: 09-18-2024 Comprehensive metabolic 2000 panel - Serum or Plasma COMPREHENSIVE METABOLIC PANEL Lab Routine Essential hypertension Well adult exam Expected: 06/19/2024, Expires: 09/18/2024 [facility] Comment on above: Expected: 06/19/2024, Expires: Start: 06-19-2024 End: 09-18-2024 Lipid 1996 panel - Serum or Plasma LIPID PANEL BASIC Lab Routine Mixed hyperlipidemia Well adult exam Expected: 06/19/2024, Expires: 09/18/2024 [facility] Comment on above: Expected: 06/19/2024, Expires: Start: 06-19-2024 End: 09-18-2024 Microalbumin/Creatinine [Mass Ratio] in Urine ALBUMIN/CREATININE RATIO, URINE Lab Routine Type 2 diabetes mellitus with diabetic neuropathy, with long-term current use of insulin (HCC) Well adult exam Expected: 06/19/2024, Expires: 09/18/2024 [facility] Work Phone: Comment on above: Expected: 06/19/2024, Expires: 5 Start: 06-19-2024 End: 09-18-2024 Thyrotropin [Units/volume] in Serum or Plasma THYROID STIMULATING HORMONE Lab Routine Well adult exam Screening for thyroid disorder Expected: 06/19/2024, Expires: 09/18/2024 [facility] Comment on above: Expected: 06/19/2024, Expires: 5 Start: 02-04-2024 Influenza vaccination [facility] Start: 01-31-2024 ANNUAL PCP TEAM CHRONIC DISEASE VISIT ANNUAL PCP TEAM CHRONIC DISEASE VISIT [facility] Start: 10-29-2023 ANNUAL PCP TEAM CHRONIC DISEASE VISIT ANNUAL PCP TEAM CHRONIC DISEASE VISIT [facility] Start: 10-29-2023 Hepatitis B screening URINE ALBUMIN:CREATININE RATIO [facility] Start: 10-29-2023 Hepatitis B surface antibody level LDL CHOLESTEROL [facility] Start: 06-05-2023 Depression Assessment Depression Assessment [facility] Start: 05-02-2023 End: 07-02-2023 Hemoglobin A1c in Blood HGB A1C Lab Routine Type 2 diabetes mellitus with diabetic neuropathy, with long-term current use of insulin (HCC) Expected: 05/02/2023, Expires: 07/02/2023 [facility] Work Phone: Comment on above: Expected: 05/02/2023, Expires: 4 Start: 05-02-2023 Hemoglobin A1c measurement HbA1C [facility] Start: 05-02-2023 Hemoglobin A1c/Hemoglobin.total in Blood HBA1C [facility] Start: 02-12-2023 Adult depression screening assessment DEPRESSION SCREENING [facility] Start: 02-11-2023 Blood chemistry [facility] Start: 02-10-2023 Blood chemistry [facility] Start: 02-09-2023 Patient discharge [facility] Start: 02-09-2023 [facility] Start: 02-09-2023 Inhalation therapy procedure [facility] Start: 02-08-2023 Care regimes management [facility] Start: 02-08-2023 Notification of physician [facility] Start: 02-08-2023 End: 02-08-2023 [facility] Start: 02-08-2023 Assessment of risk of venous thromboembolism [facility] Start: 02-08-2023 Insertion of catheter into peripheral vein [facility] Start: 02-08-2023 Measuring intake and output [facility] Start: 02-08-2023 Providing care according to standard [facility] Start: 02-08-2023 Provision of activity privileges [facility] Start: 02-08-2023 Referral to occupational therapist [facility] Start: 02-08-2023 Referral to service [facility] Start: 02-08-2023 Telepractice consultation [facility] Start: 02-08-2023 [facility] Start: 02-08-2023 Following clinical pathway protocol [facility] Start: 02-08-2023 Verification routine [facility] Start: 02-08-2023 Admission procedure [facility] Start: 02-03-2023 Influenza vaccination [facility] Start: 01-28-2023 Hemoglobin A1c/Hemoglobin.total in Blood HBA1C [facility] Start: 01-14-2023 Adult depression screening assessment DEPRESSION SCREENING [facility] Start: 01-14-2023 ANNUAL PCP TEAM CHRONIC DISEASE VISIT ANNUAL PCP TEAM CHRONIC DISEASE VISIT [facility] Start: 01-06-2023 End: 03-08-2023 25-hydroxyvitamin D3 [Mass/volume] in Serum or Plasma VITAMIN D 25 HYDROXY Lab Routine Nonintractable epilepsy without status epilepticus, unspecified epilepsy type (HCC) Vitamin D deficiency Expected: 01/06/2023, Expires: 03/08/2023 [facility] Work Phone: Comment on above: Expected: 01/06/2023, Expires: 3 Start: 01-06-2023 End: 03-08-2023 Comprehensive metabolic 2000 panel - Serum or Plasma COMP METABOLIC PANEL Lab Routine Nonintractable epilepsy without status epilepticus, unspecified epilepsy type (HCC) Expected: 01/06/2023, Expires: 03/08/2023 [facility] Work Phone: Comment on above: Expected: 01/06/2023, Expires: 3 Start: 01-06-2023 End: 03-08-2023 Valproate [Mass/volume] in Serum or Plasma VALPROIC A/DEPAKENE Lab Routine Nonintractable epilepsy without status epilepticus, unspecified epilepsy type (HCC) Expected: 01/06/2023, Expires: 03/08/2023 [facility] Work Phone: Comment on above: Expected: 01/06/2023, Expires: 3 Start: 12-23-2022 ANNUAL PCP TEAM CHRONIC DISEASE VISIT ANNUAL PCP TEAM CHRONIC DISEASE VISIT [facility] Start: 12-23-2022 BP CONTROLLED (<130/80) BP CONTROLLED (<130/80) [facility] Start: 12-23-2022 Hepatitis B surface antibody level LDL CHOLESTEROL [facility] Start: 12-23-2022 Urine microalbumin profile DTAP,TDAP,TD (1 - Tdap) [facility] Comment on above: Postponed from 08/20/2002 (Declined at t his time) Start: 12-09-2022 Adult depression screening assessment DEPRESSION SCREENING [facility] Start: 10-20-2022 Adult depression screening assessment DEPRESSION SCREENING [facility] Start: 09-23-2022 ANNUAL PCP TEAM CHRONIC DISEASE VISIT ANNUAL PCP TEAM CHRONIC DISEASE VISIT [facility] Start: 09-21-2022 Adult depression screening assessment DEPRESSION SCREENING [facility] Start: 07-24-2022 Hepatitis B screening URINE ALBUMIN:CREATININE RATIO [facility] Start: 07-24-2022 Hepatitis B surface antibody level LDL CHOLESTEROL [facility] Start: 07-21-2022 Adult depression screening assessment DEPRESSION SCREENING [facility] Start: 07-21-2022 ANNUAL PCP TEAM CHRONIC DISEASE VISIT ANNUAL PCP TEAM CHRONIC DISEASE VISIT [facility] Start: 06-05-2022 DEPRESSION ASSESSMENT DEPRESSION ASSESSMENT [facility] Start: 03-25-2022 Hemoglobin A1c/Hemoglobin.total in Blood HBA1C [facility] Start: 02-10-2022 3 comp foot exam completed DIABETIC FOOT EXAM [facility] Start: 02-10-2022 COVID-19 VACCINE (#1) COVID-19 VACCINE (#1) [facility] Comment on above: Postponed from 08/20/1988 (Declined at t his time) Postponed from 02/20 (Declined at this time) Start: 02-10-2022 COVID-19 VACCINE (1) COVID-19 VACCINE (1) [facility] Comment on above: Postponed from 08/20/1988 (Declined at t his time) Start: 02-10-2022 Diabetic foot examination Diabetic Foot Exam [facility] Start: 02-03-2022 Influenza vaccination [facility] Start: 01-21-2022 Hemoglobin A1c/Hemoglobin.total in Blood HBA1C [facility] Start: 12-23-2021 End: 02-22-2022 CBC panel - Blood by Automated count [facility] Work Phone: Comment on above: Expected: 12/23/2021, Expires: 2 Start: 12-23-2021 End: 02-22-2022 Comprehensive metabolic 2000 panel - Serum or Plasma [facility] Work Phone: Comment on above: Expected: 12/23/2021, Expires: 2 Start: 12-23-2021 End: 02-22-2022 Hemoglobin A1c in Blood [facility] Work Phone: Comment on above: Expected: 12/23/2021, Expires: 2 Start: 12-23-2021 End: 02-22-2022 Lipid 1996 panel - Serum or Plasma [facility] Work Phone: Comment on above: Expected: 12/23/2021, Expires: 2 Start: 12-23-2021 End: 02-22-2022 Magnesium [Mass/volume] in Serum or Plasma [facility] Work Phone: Comment on above: Expected: 12/23/2021, Expires: 2 Start: 12-23-2021 End: 02-22-2022 Thyrotropin [Units/volume] in Serum or Plasma [facility] Work Phone: Comment on above: Expected: 12/23/2021, Expires: 2 Start: 12-02-2021 Influenza vaccination INFLUENZA (#1) [facility] Comment on above: Postponed from 02/03/2021 (Declined at t his time) Start: 10-22-2021 End: 12-22-2021 GARCÍA BY IFA WITH REFLEX [facility] Work Phone: Comment on above: Expected: 10/22/2021, Expires: 2 Start: 10-22-2021 End: 12-22-2021 C reactive protein [Mass/volume] in Serum or Plasma [facility] Work Phone: Comment on above: Expected: 10/22/2021, Expires: 2 Start: 10-22-2021 End: 12-22-2021 Cyclic citrullinated peptide IgG Ab [Units/volume] in Serum or Plasma [facility] Work Phone: Comment on above: Expected: 10/22/2021, Expires: 2 Start: 10-22-2021 End: 12-22-2021 RHEUMATOID FACTOR BL [facility] Work Phone: Comment on above: Expected: 10/22/2021, Expires: 2 Start: 10-22-2021 End: 12-22-2021 Urate [Mass/volume] in Serum or Plasma [facility] Work Phone: Comment on above: Expected: 10/22/2021, Expires: 2 Start: 10-22-2021 End: 12-22-2021 VITAMIN D 25 HYDROXY [facility] Work Phone: Comment on above: Expected: 10/22/2021, Expires: 2 Start: 08-07-2021 BP CONTROLLED (<130/80) BP CONTROLLED (<130/80) [facility] Start: 06-05-2021 DEPRESSION ASSESSMENT DEPRESSION ASSESSMENT [facility] Start: 12-30-2020 Creatinine measurement Creatinine monitoring [facility] [place] [place] Start: 12-30-2020 Potassium monitoring Potassium monitoring [facility] [place] [place] Start: 07-18-2020 Creatinine measurement Creatinine monitoring [facility] [place] [place] Start: 07-18-2020 Creatinine monitoring Creatinine monitoring [facility] [place] [facility] [place] Start: 07-18-2020 Potassium monitoring Potassium monitoring [facility] [place] Start: 02-04-2020 Influenza vaccination Flu vaccine (#1) [facility] [place] [place] Start: 12-30-2019 End: 12-30-2019 Appointment 12/30/2019 Appointment General Surgery Gama Ludwig MD [address] [place], [place] [id number] [facility] General Surgery Start: 08-22-2019 End: 08-22-2019 Office Visit 08/22/2019 Office Visit Cardiology Preethi Brush MD [address] [place], [place] [id number] [facility] Start: 07-25-2019 End: 07-25-2019 Appointment 07/25/2019 Appointment General Surgery Gama Ludwig MD [address] [place] [address] [facility] General Surgery Start: 05-21-2019 Glaucoma screening Dilated Retinal Exam [facility] Start: 05-21-2019 Hepatitis C antibody, confirmatory test DILATED RETINAL EXAM [facility] Start: 04-02-2019 Creatinine monitoring Creatinine monitoring [facility] Work Phone: Start: 04-02-2019 Potassium monitoring Potassium monitoring [facility] Work Phone: Start: 03-30-2019 A1C test (Diabetic or Prediabetic) A1C test (Diabetic or Prediabetic) [facility] Work Phone: Start: 03-30-2019 HbA1c (Bld) [Mass fraction] A1C test (Diabetic or Prediabetic) [place], [place] Start: 02-03-2019 Influenza vaccination Flu vaccine (#1) [facility] Work Phone: Start: 08-20-2010 HPV Vaccine (1 - 3-dose SCDM series) HPV Vaccine (1 - 3-dose SCDM series) [facility] Start: 08-20-2002 DTaP/Tdap/Td vaccine (1 - Tdap) DTaP/Tdap/Td vaccine (1 - Tdap) [place], [place] Start: 08-20-2002 HEPATITIS B (1 of 3 - Risk 3-dose series) HEPATITIS B (1 of 3 - Risk 3-dose series) [facility] Start: 08-20-2002 Urine microalbumin profile [facility] Start: 08-20-2001 Anxiety Screening Anxiety Screening [facility] Start: 08-20-2001 Depression Screening Depression Screening [facility] Start: 08-20-2001 Diabetic microalbuminuria test Diabetic microalbuminuria test [facility] Work Phone: Start: 1999 ONE PNEUMOVAX PRIOR TO AGE 65 ONE PNEUMOVAX PRIOR TO AGE 65 [facility] Start: 08-20-1998 HIV screen HIV screen [facility] Work Phone: Start: 08-20-1998 HIV screening HIV screen [place], [place] Start: 08-20-1994 DTaP/Tdap/Td vaccine (1 - Tdap) DTaP/Tdap/Td vaccine (1 - Tdap) [facility] Work Phone: Start: 08-20-1993 [object Object] Diabetic foot exam [facility] Work Phone: Start: 08-20-1993 Diabetic foot examination Diabetic foot exam [place], [place] Start: 08-20-1993 Diabetic retinal exam Diabetic retinal exam [facility] Work Phone: Start: 08-20-1993 Lipid panel Lipid screen [place], [place] Start: 08-20-1993 Lipid screen Lipid screen [facility] Work Phone: Start: 08-20-1989 PNEUMOCOCCAL (1 - PCV) PNEUMOCOCCAL (1 - PCV) [facility] Start: 08-20-1984 Varicella vaccine (1 of 2 - 2-dose childhood series) Varicella vaccine (1 of 2 - 2-dose childhood series) [facility] Work Phone: Start: 02-21-1984 COVID-19 VACCINE (#1) COVID-19 VACCINE (#1) [facility] Start: 1983 HEPATITIS B (1 of 3 - 3-dose series) HEPATITIS B (1 of 3 - 3-dose series) [facility] End: 12-25-2019 Basic Metabolic Panel w/ Reflex to MG Basic Metabolic Panel w/ Reflex to MG Lab Routine One Time for 1 Occurrences starting 12/25/2019 until 12/25/2019 [place] Comment on above: One Time for 1 Occurrences starting 12/04 until 12/25/2019 End: 08-02-2019 Cardiac Stress Test- W Pharm Cardiac Stress Test- W Pharm Cardiac Services Routine One Time for 1 Occurrences starting 08/02/2019 [facility] 08[facility]02[facility] on above: One Time for 1 Occurrences starting 07/07 until 08/02/2019 End: 12-31-2019 CRP [Mass/Vol] C-Reactive Protein Lab Routine One Time for 1 Occurrences starting 12/31/2019 until 12/31/2019 [facility] Comment on above: One Time for 1 Occurrences starting 12/04 until 12/31/2019 Culture, Aerobic Loida teria with Gram Stain Culture, Aerobic Bacteria with Gram Stain Microbiology Routine 12/30/2019 2:25 PM EDT [facility] Culture, Anaerobic Culture, Anae robic Microbiology Routine 12/30/2019 2:25 PM EDT [facility] End: 12-23-2022 ECG COMPLETE ECG COMPLETE ECG Routine Syncope, unspecified syncope type 1 Occurrences starting 12/23/2021 until 12/23/2022 [facility] Work Phone: Comment on above: 1 Occurrences starting 12/23/2021 until 12/23/2022 ECG COMPLETE ECG COMPLETE ECG 12/23/2021 11:21 AM EDT [facility] End: 12-23-2022 Echocardiography ECHO Cardiology Routine Syncope, unspecified syncope type 1 Occurrences starting 12/23/2021 until 12/23/2022 [facility] Work Phone: Comment on above: 1 Occurrences starting 12/23/2021 until 12/23/2022 EKG 12 Lead EKG 12 Lead ECG Routine 07/18/2019 3:59 PM EST [facility] Work Phone: Hemoglobin A1c in Blood HGB A1C Lab Routine Type 2 diabetes mellitus with diabetic neuropathy, with long-term current use of insulin ([facility]) 01/30/2023 9:00 AM EDT [facility] Work Phone: End: 12-25-2019 Hemoglobin and Hematocrit, Blood Hemoglobin and Hematocrit, Blood Lab Routine One Time for 1 Occurrences starting 12/25/2019 until 12/25/2019 [facility] Comment on above: One Time for 1 Occurrences starting 12/04 until 12/25/2019 End: 03-16-2023 Mri brain brain stem w/o contrast material MRI BRAIN WO IVCON Radiology Routine Seizure disorder (HCC) 1 Occurrences starting 02/14/2022 until 03/16/2023 [facility] Work Phone: Comment on above: 1 Occurrences starting 02/14/2022 until 03/16/2023 End: 02-05-2024 Mri brain brain stem w/o contrast material MRI BRAIN WO IVCON Radiology Routine Nonintractable epilepsy without status epilepticus, unspecified epilepsy type (HCC) 1 Occurrences starting 01/06/2023 until 02/05/2024 [facility] Work Phone: Comment on above: 1 Occurrences starting 01/06/2023 until 02/05/2024 End: 08-02-2019 Nasal Cannula Oxygen Nasal Cannula Oxygen Respiratory Care Routine As Needed until discontinued starting 08/02/2019 [facility] Comment on above: As Needed until discontinued starting Oxygen therapy Initiate Oxygen Therapy Protocol Respiratory Care Routine Daily until discontinued starting 12/30/2019 [facility] Comment on above: Daily until discontinued starting 2019 Patient Education [facility] Work Phone: Patient referral [facility] Work Phone: POCT glucose [facility] Comment on above: 4X Daily (AC & HS) until discontinued st arting 01/01/2020 As Needed until disc ontinued starting 01/01/2020 PT PLAN OF CARE CERTIFICATION PT PLAN OF CARE CERTIFICATION Procedures Routine Arthritis of foot Polyarthralgia Chronic pain of both ankles Limited joint range of motion (ROM) Ordered: 11/08/2021 [facility] Work Phone: Comment on above: Ordered: 11/08/2021 End: 12-31-2019 Sedimentation Rate Sedimentation Rate Lab Routine One Time for 1 Occurrences starting 12/31/2019 until 12[facility]31[facility] on above: One Time for 1 Occurrences starting 12/04 until 12/31/2019 SPIROMETRY - BASELIN E AND POST DILATOR SPIROMETRY - BASELINE AND POST DILATOR PFT Routine Severe persistent asthma without complication 01/25/2022 10:12 AM EDT [facility] Work Phone: End: 12-25-2019 Valproic acid level, total Valproic acid level, total Lab Routine One Time for 1 Occurrences starting 12/25/2019 until 12/25/2019 [place] Comment on above: One Time for 1 Occurrences starting 12/04 until 12/25/2019 End: 08-31-2023 XR ANKLE GENERAL 3V AP/LAT/OBL BILATERAL XR ANKLE GENERAL 3V AP/LAT/OBL BILATERAL Radiology Routine Ankle arthritis Arthritis of subtalar joint 1 Occurrences starting 08/01/2022 until 08/31/2023 [facility] Work Phone: Comment on above: 1 Occurrences starting 08/01/2022 until 08/31/2023 XR ANKLE GENERAL 3V AP/LAT/OBL BILATERAL XR ANKLE GENERAL 3V AP/LAT/OBL BILATERAL Radiology Routine Ankle arthritis Arthritis of subtalar joint 08/01/2022 9:45 AM EST [facility] Work Phone: [facility] Immunizations Immunization Date Immunization Notes Care Provider Kai alvarado 05-01-2019 influenza virus vaccine, unspecified formulation Patricia Tran [facility] Work Phone: [facility] 02-11-2019 Influenza virus vaccine [facility] 02-11-2019 influenza, injectabl e, quadrivalent, preservative free Danilo King ROOF DESIGNER.WARRANTY CLERK Work Phone: [facility] Work Phone: 02-11-2019 influenza, seasonal, injectable, preservative free Danilo King ROOF DESIGNER.WARRANTY CLERK Work Phone: [facility] Work Phone: 09-17-1997 TD(adult) unspecifie d formulation Javid Winter MD Work Phone: [facility] 03-21-1997 hepatitis B vaccine, pediatric or pediatric/adolescent dosage Javid Winter MD Work Phone: [facility] 10-18-1996 hepatitis B vaccine, pediatric or pediatric/adolescent dosage Javid Winter MD Work Phone: [facility] 09-18-1996 hepatitis B vaccine, pediatric or pediatric/adolescent dosage Javid Winter MD Work Phone: [facility] 09-18-1996 measles, mumps and rubella virus vaccine Javid Winter MD Work Phone: [facility] 10-12-1987 diphtheria, tetanus toxoids and acellular pertussis vaccine Javid Winter MD Work Phone: [facility] 02-10-1986 diphtheria, tetanus toxoids and acellular pertussis vaccine Javid Winter MD Work Phone: [facility] 02-10-1986 trivalent poliovirus vaccine, live, oral Javid Winter MD Work Phone: [facility] 09-10-1985 haemophilus influenz ae type b vaccine, PRP-T conjugate Javid Winter MD Work Phone: [facility] 04-22-1985 diphtheria, tetanus toxoids and acellular pertussis vaccine Javid Winter MD Work Phone: [facility] 04-22-1985 trivalent poliovirus vaccine, live, oral Javid Winter MD Work Phone: [facility] 02-28-1985 diphtheria, tetanus toxoids and acellular pertussis vaccine Javid Winter MD Work Phone: [facility] 02-28-1985 trivalent poliovirus vaccine, live, oral Javid Winter MD Work Phone: [facility] 01-28-1985 measles, mumps and rubella virus vaccine Jaivd Winter MD Work Phone: [facility] 01-01-1985 diphtheria, tetanus toxoids and acellular pertussis vaccine Javid Winter MD Work Phone: [facility] 01-01-1985 trivalent poliovirus vaccine, live, oral Javid Winter MD Work Phone: [facility] Payers Date Payer Category Payer Self-pay [id number] 2024 [facility] ETTA [id number] 2024 Unknown [id number] 2023 Unknown [id number] 2016 Medicaid [id number] 2016 [facility] xxxxxxxxxxx 2016-Present [phone] CLAIMS DEPARTMENT [address] [place] [address] xxxxxxxxxxx [id number] 2016 Unknown [id number] 2015 Medicaid [id number] 2015 Unknown [id number] Unknown [id number] Unknown [id number] Unknown [id number] Unknown [id number] Unknown [id number] Unknown [id number] Social History Date Type Detail Facility Start: 07-18-2019 End: 03-04-2025 Tobacco smoking status NHIS Former smoker [facility] Start: 06-05-2004 End: 06-05-2006 History of tobacco use Current smoker [facility] Phone: Start: 06-05-2004 End: 06-05-2006 History of tobacco use Cigarette Smoker [facility] Phone: Start: 07-18-2019 End: 10-21-2022 Cigarettes smoked current (pack per day) - Reported [facility] Start: 07-18-2019 End: 01-27-2025 Alcohol intake Current non-drinker of alcohol (finding) [facility] Phone: Sex Assigned At Not on file [facility] Phone: Start: 12-25-2019 End: 06-19-2024 Tobacco use and exposure Never used [facility] [place] Start: 03-15-2021 End: 01-14-2022 Exposure to SARS-CoV-2 (event) Not sure [facility] [place], [place] Start: 06-13-2019 End: 10-21-2022 History SDOH Alcohol Frequency 1 [facility] Start: 06-13-2019 History SDOH Alcohol Std Drinks 98 [facility] Start: 04-17-2019 End: 10-21-2022 History SDOH Social Connections Phone 5 [facility] Start: 04-27-2020 History SDOH Social Connections Get Together 4 [facility] Start: 09-27-2019 End: 10-21-2022 History SDOH Social Connections Meetings 2 [facility] Start: 04-17-2019 End: 10-21-2022 History SDOH Social Connections Living 3 [facility] Start: 04-27-2020 History SDOH Physical Activity DPW 7 [facility] Start: 04-26-2020 Education 15 [facility] Start: 1985 Sex Assigned At Male [facility] Start: 12-18-2021 End: 05-31-2023 Tobacco smoking status NHIS Unknown if ever smoked [facility] Start: 03-09-2020 None [facility] Start: 04-18-2019 With Family [facility] Start: 06-28-2019 Non-smoker [facility] Start: 08-01-2022 Alcohol Comment 20 years clean - 08/01/2022 [facility] Start: 10-21-2022 History SDOH Alcohol Std Drinks 0 [facility] Start: 10-21-2022 End: 06-19-2024 Social connection and isolation panel [facility] Do you belong to any clubs or organizations such as yazidism groups, unions, [employer] or athletic groups, or school groups? Yes [facility] Are you now , , , , never or living with a partner? [facility] How often to you hav e a drink containing alcohol? Never [facility] Start: 05-06-2012 How many standard drinks containing alcohol do you have on a typical day? Patient does not drink [facility] Do you feel stress - tense, restless, nervous, or anxious, or unable to sleep at night because your mind is troubled all the time - these days [OSQ] To some extent [facility] (I/We) worried caterina er (my/our) food would run out before (I/we) got money to buy more. Never true [facility] In the past 12 month s, was there a time when you were not able to pay the mortgage or rent on time? No [facility] Start: 02-21-2019 Gender identity Identifies as male gender (finding) [facility] Start: 02-21-2019 Sexual orientation Heterosexual (finding) [facility] Do you feel stress - tense, restless, nervous, or anxious, or unable to sleep at night because your mind is troubled all the time - these days [OSQ] Very much [facility] Medical Equipment Procedure Code Equipment Code Equipment Original Text Equipment Identifier Dates Irs-[id number]-[id number] Im plant - [id number] Start: 01-27-2018 Plate Smartlock Small Bone Hybrid Maxillofacial - [id number] Start: 01-27-2018 Plate Titanium B one 6 Hole Locking 2 Mm Screw Mandible - [id number] Start: 01-27-2018 Screw Smartlock 2mm Titanium 8mm Bone Lock Self Drill Maxillomandibular - [id number] Start: 01-27-2018 Screw 2mm Titani um 6mm Bone Cross Pin Self Tap Nonsterile Mandibular - [id number] Start: 01-27-2018 Screw Titanium 4 mm Bone Self Tapping Cross Pin 2.3mm Maxillofacial - [id number] Start: 01-27-2018 Screw 2mm Titani um 8mm Bone Cross Pin Maxillofacial - [id number] Start: 01-27-2018 [id number], [id number] Start: 2019 End: 06-19-2024 Comment on above: Use as instructed testing 3 times a day 1 Each as directed. TO BE USED DIRECTED. USE ONE NEEDLE FOR EACH DOSE Test blood sugar(s) 3 times daily. Dx: Type 2 DM - Uncontrolled E11.65 Insulin: Yes Goals Date Patient Goal Desired Activity /State Functional Status Date Assessment Result Facility 03-05-2025 Functional status Ambulates [facility] Work Phone: 02-09-2023 Functional status Ambulates;Beds kyle [employer] [facility] Work Phone: 09-07-2021 Are you deaf, or do you have serious difficulty hearing No 09/07/2021 1:01 PM Lana Barksdale RN No [facility] 09-07-2021 Are you blind, or do you have serious difficulty seeing, even when wearing glasses No 09/07/2021 1:01 PM Lana Barksdale RN No [facility] 09-07-2021 Do you have serious difficulty walking or climbing stairs No 09/07/2021 1:01 PM EDT Lana Charlton RN No [facility] 09-07-2021 Do you have difficul ty dressing or bathing No 09/07/2021 1:01 PM EDT Lana Charlton RN No [facility] 09-07-2021 Because of a physica l, mental, or emotional condition, do you have difficulty doing errands alone such as visiting a physician's office or shopping No 09/07/2021 1:01 PM EDT Lana Charlton RN No [facility] Mental Status Date Assessment Result Facility 03-05-2025 Cognitive function Voice/Name [facility] Work Phone: 01-21-2025 Cognitive function Voice/Name [facility] Work Phone: 02-09-2023 Cognitive function Voice/Name [facility] Work Phone: 02-08-2023 Cognitive function Sedated [facility] Work Phone: 09-07-2021 Because of a physica l, mental, or emotional condition, do you have serious difficulty concentrating, remembering, or making decisions No 09/07/2021 1:01 PM EDT Lana Charlton RN No [facility] Clinical Notes 01-26-2018 to 03-05-2025 Note Date & Type Note Facility 03-05-2025 Discharge summary [facility] 03-05-2025 Discharge summary [facility] 03-05-2025 Note [facility] Medical Records Department [address] [place] [id number] Discharge Summary 03/05/25 1716 MR#: [id number] Acct: [id number] Name: VICTOR HUGO ASIF Rep #: [id number] : 1985 39 From: Hoa Haskins MD PCP: Dr. Ranjit Azar DO Status:ADM TERESA Location: [place] [address] Providers Date of Admission: 03/04/25 Date of Discharge: 03/05/25 Primary Care Physician: Dr. Ranjit Azar DO Reason For Visit: CHEST PAIN Diagnosis Discharge Diagnosis (1) Chest pain: Status: Inactive Code(s): R07.9 - Chest pain, unspecified Medications at Discharge Home Medications lisinopril 20 mg tablet 20 mg PO DAILY #30 tabs 03/05/25 Hospital Course Operations None Procedures 2-D Echocardiogram and Stress test Summary of Care Provided Minutes Spent on Discharge: 37 Hospital Course: Patient is a 39-year-old male with past medical history as outlined was admitted through the ED on 03/04/2025 with complaint of chest pain. Patient said he had been having ongoing chest pain and heaviness in the center of his chest for the past 3 days. 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 The pain did not improve with rest though it worsened slightly with exertion. He denied any other complaints. He denied any nicotine dependence. He also denied any family history of heart disease. Labs were essentially unremarkable and troponins x 2 were negative. EKG showed no acute ST changes and chest x-ray showed no acute cardiopulmonary pathology. He was admitted to be managed for chest pain to rule out ACS. He had a stress test on 03/05/2025 which was negative. 2D echo also showed EF of 60% with normal left ventricular systolic function and stage I diastolic dysfunction and structurally normal valves. He remained stable and was discharged home on 03/13/2025. Since his blood pressure was still elevated his home dose of lisinopril 10 mg daily was increased to 20 mg daily. He is to follow-up with his PCP within 1 to 2 weeks. Patient seen and examined prior to discharge. He had no complaints and had an uneventful night. Review of systems otherwise negative. Labs and vitals reviewed. Home medication reviewed and reconciled. Physical Exam Const alert, oriented x3 and no apparent distress General Appearance: cooperative and comfortable Orientation / Consciousness: awake Exam Limitations: no limitations HEENT normocephalic, head/scalp atraumatic, hearing grossly normal bilaterally and moist oral mucous membranes Mouth: oral and palatal mucosa normal Eyes EOMs intact bilaterally and conjunctivae normal Neck supple and no JVD Resp normal respiratory effort, no use of accessory muscles and clear to auscultation bilaterally Cardio regular rate, regular rhythm, S1 normal heart sound, S2 normal heart sound and no murmurs GI normal to inspection, nondistended, normoactive bowel sounds, soft to palpation, non-tender and non- distended Extremity normal to inspection and full ROM Skin no rashes or lesions noted Neuro oriented x3, CN's II-XII intact bilaterally, moves all extremities and no focal motor deficits Sensorium / Orientation: awake and alert Motor Exam: strength 5/5 throughout Psych affect normal Weight / BMI Weight Weight: 201 lb 14.4 oz Body Mass Index (BMI) 32.5 ABG / Lab / Microbiology Data 03/05/25 03:45 03/05/25 03:45 Laboratory: Laboratory Results - last 24 hr 03/04/25 17:07: POC Glucose 113 H 03/04/25 21:35: POC Glucose 124 H 03/05/25 03:45: WBC 5.9, RBC 4.44 L, Hgb 12.0 L, Hct 37.2 L, MCV 83.8, MCH 27.0, MCHC 32.3, RDW Std Deviation 36.4, RDW Coeff of Ferny 12.0, Plt Count 278, MPV 10.4, Sodium 138, Potassium 3.8, Chloride 104, Carbon Dioxide 23.0, Anion Gap 10, BUN 11, Creatinine 0.87, Estim Creat Clear Calc 118.40, Est GFR (MDRD) Non-Af 111, BUN/Creatinine Ratio 13.1, Glucose 135 H, Calcium 9.2, Triglycerides 111, Cholesterol 149, LDL Cholesterol, Calc 68, VLDL Cholesterol 22, HDL Cholesterol 58, Cholesterol/HDL Ratio 2.55 03/05/25 06:37: POC Glucose 135 H 03/05/25 11:35: POC Glucose 192 H Radiography Diagnostic Testing: Radiology Impression Echocardiogram 03/04/25 15:02 Interpretation Summary The left ventricular ejection fraction is 60 %. Normal left ventricle. Left ventricular systolic function is normal. Stage 1 diastolic dysfunction. Structurally normal valves. Ordering Physician: Giovani Membreno Performed By: Timothy Leija RCS D/C Instructions Discharge Activity: Return to Normal Activity Weight Bearing Status: Weight bearing as tolerated Call your doctor if you observe: Fever of 101 or Higher, Shortness of breath, Dizziness and Chest (more content not included)... [facility] 03-05-2025 Hospital Discharge instruction s Additional Instructions Date of Discharge: 03/05/25 [facility] Work Phone: 03-04-2025 History and physi valencia note Note Date/Time March 04, 2025 8:02pm [facility] Medical Records Department [address] [place] [address] H&P Exam - Hospitalist 03/04/25 1458 MR#: [id number] Acct: [id number] Name: VICTOR HUGO ASIF Rep #:[id number] : 1985 39 From: Giovani ness DO PCP: Dr. Ranjit Azar, DO Status:AD M [facility] Location: [place] [address] HPI - General General Date of Admission: 03/04/25 Date of Service: 03/04/25 Chief Complaint: Chest pain HPI Narrative VICTOR HUGO ASIF, is a 39 M who presented to [facility] ED on 03/04/2025 with chest pain. Medical history significant for hypertension, type 2diabetes mellitus and class I obesity. Patient lives at home with his . 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 He reports ongoing chest pain/heaviness in the center part of his chest for the past 3 days. He has had chest discomfort in that area before but never this severe. Denies any radiation of the pain into his arms or into his neck. Notes that the pain seems to worsen slightly with exertion but does not improve significantly with rest. Denies anyacid reflux symptoms. Denies any recent falls or trauma. Denies any tobacco, alcohol or recreational drug use. Denies any significant family history of cardiac disease that he is aware of. In the ED he was hypertensive to the 150s to 160s systolic but otherwise in normal sinus rhythm and stable on room air at rest. CBC and BMP were benign. Glucose 167. Troponins negative x 2. BNP normal. Chest x-ray nonacute. EKG with normal sinus rhythm and no ST changes noted. Has never had an echo or stress test done. Given his age, heart score 4and ongoing chest pain, hospitalist was contacted for admission. I saw the patient at bedside in the ED. Patient was sitting back fairly comfortably in bed, in no acute distress. He was conversing normally and was somewhat long-winded with conversation. He was given a dose of aspirin 325 mg in the ED. Notes that his chest pain is slightly improved from earlier today. Denies any shortness of breath. Patient notes that he has currently on only lisinopril andTrulicity at home, though he apparently was previously on several other medications as of about a year ago. However, he lost his insurance coverage andis seeing a new PCP who he notes took him off most of these medications because they were not needed. He denies any other acute concerns currently. [facility] Medical History Acute gangrenous cholecystitis Acute cholecystitis DM2 (diabetes mellitus, type 2) Schizoaffective disorder Cholecystitis Depression Seizure SOB (shortness of breath) Asthma HTN (hypertension) Home Medications ?Medication ?Instructions ?Recorded ?Last Taken ?Type lisinopril 10 mg tablet 10 mg PO DAILY 03/04/25 Unkn own History Allergy/AdvReac Type Severity Reaction Status Date / Time hydrocodone bitartrate (From Allergy Hives Verified 03/04/25 11:16 Vicodin) acetaminophen AdvReac Nausea/hive Verified 03/04/25 11:16 s baclofen AdvReac IT MAKES Verified 03/04/25 11:16 HIM LIGHTHEADED AND SICK lactose AdvReac Nausea Verified 03/04/25 11:16 Penicillins AdvReac Nausea Verified 03/04/25 11:16 Surgical History History of laparoscopic cholecystectomy (~04/20/19) Social History household members: spouse and family current occupational status: employed Smoking Status: Former smoker ROS Constitutional Constitutional: Denies chills, fatigue, fever(s) or weakness Cardiovascular Cardiovascular: Reports chest pain; Denies dyspnea on exertion, edema, lightheadedness or palpitations Respiratory/Chest Respiratory/Chest: Denies cough, shortness of breath at rest or shortness of breath with exertion Gastrointestinal Gastrointestinal: Denies abdominal pain Musculoskeletal Musculoskeletal: Denies arthralgias or myalgias Neurologic Neurologic: Denies dizziness, focal weakness or headache(s) Vital Signs Vital Signs Vital Signs: 03/04/25 11:16 03/04/25 13:16 03/04/25 14:50 Temperature 98 F Temperature Source Temporal Pulse Rate 107 H 78 77 Respiratory Rate 18 16 Blood Pressure 152/104 H 156/114 H 158/108 H Blood Pressure Mean 120 128 124 Pulse Ox 100 100 Oxygen Delivery Method Room Air Weight Weight: 91 kg Body Mass Index (BMI) 32.3 Physical Exam Const alert, oriented x3, no apparent distress and average body habitus Constitutional Narrative: Middle-age male, class I obesity, mildly fatigued appearing, otherwise sitting back fairly comfortably in bed, conversing normally, in no acute distress. General Appearance: cooperative and comfortable HEENT normocephalic, head/scalp atraumatic, hearing grossly normal bilaterally, nasal mucous membranes and turbinates normal and moist oral mucous membranes Eyes PERRL, EOMs intact bilaterally and conjunctivae normal Neck full ROM Chest inspection of chest normal Resp normal respiratory effort, normal air movement, no use of accessory muscles and clear to auscultation bilaterally Cardio regular rate, regular rhythm, no murmurs and peripheral pulses 2+ throughout GI normal to inspection, nondistended, normoactive bowel sounds, soft to palpation,non-tender and non-distended Back/Spine normal ROM Extremity normal to inspection, full ROM and no pedal edema Skin no rashes or lesions noted Psych mental status grossly normal Results Lab / Micro Data 03/04/25 11:38 03/04/25 11:38 Labs: Laboratory Results - last 24 hr 03/04/25 11:38: WBC 4.2 L, RBC 4.50 L, Hgb 12.4 L, Hct 37.5 L, MCV 83.3, MCH 27.6, MCHC 33.1, RDW Std Deviation 36.6, RDW Coeff of Ferny 12.0, Plt Count 254, MPV 11.3, Immature Gran % (Auto) 0.500, Neut % (Auto) 60.9, Lymph % (Auto) 29.7,Davison % (Auto) 7.2, Eos % (Auto) 0.7, Baso % (Auto) 1.0, Absolute Neuts (auto) 2.5, Absolute Lymphs (auto) 1.24, Nucleated RBC % 0, PT 12.7, INR 0.9, APTT 25.8, D-Dimer Quant (PE/DVT) 0.43, Sodium 139, Potassium 4.0, Chloride 103, Carbon Dioxide 24.4, Anion Gap 11, BUN 12, Creatinine 0.97, Estim Creat Clear Calc 105.86, Est GFR (MDRD) Non-Af 101, BUN/Creatinine Ratio 12.6, Glucose 167 H, Calcium 9.4, Troponin T High Sens 15, NT pro BNP II 62 03/04/25 14:06: Troponin T Hi Sens 2 Hr 10 Imaging Radiology Impression Chest X-Ray 03/04/25 11:59 IMPRESSION: No acute cardiopulmonary process Reading Location: [id number] Assessment & Plan Assessment/Plan (1) Chest pain: PLAN: Plan Patient is a 39-year-old male who presented to [facility] ED on 03/04/2025 with chest pain. 1. Chest pain, ACS rule out ? Admit under observation status to PCU. Troponins negative x 2, EKG with normal sinus rhythm and no ST changes, chest x-ray negative and BNP normal. However, given history of hypertension, diabetes and obesity as below and heart score 4, cannot rule out cardiac etiology. Nuclear stress test and echocardiogram ordered. A.m. fasting lipid profile ordered. Monitor cardiac telemetry. 2. 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 ? Patient hypertensive to the 150s to 160s systolic and 100s diastolic in the ED. Noted that he had not taken his home lisinopril 10 mg yet today. Does not check his blood pressures at home. Suspect patient may have poorly controlled hypertension and may need additional antihypertensive therapy for this. For shira continue home lisinopril and add IV hydralazine as needed for SBP greater than 170. 3. Type 2 diabetes mellitus ? Glucose 167 on admit. A1c 8.5%. Last A1c in our system was from 2018; was 6.0% then but was up at 9.5% back in 2015. Patient reports being on only weeklyTrulicity at this time. Will treat with sliding scale insulin with meals while inpatient. Could consider initiation of metformin on discharge or defer to PCP for medication changes. 4. Class I obesity ? BMI 32 on admit. Discussed lifestyle modifications. Complicates hospital course and care. DVT prophylaxis: Lovenox CODE STATUS: Full code, verified Expected disposition: Home, 1 to 2 days Total clinical time spent by myself addressing the patient's medical issues, reviewing all the data, and collaborating with patient's care team: 76 minutes. Charges/Coding Visit Charges Inpatient E&M: 32587 Init Hosp L3 03/04/252001 <Electronically signed by Giovani Membreno DO> Cosigner Signature (if applicable): CC: Dr. Giovani Membreno DO; Dr. Ranjit Azar DO~ Signed [facility] Work Phone: [phone] 464-461509-30-2025 History and physical note [facility] Medical Records Department [address] [place] [address] H&P Exam - Hospitalist 03/04/25 1458 MR#: [id number] Acct: [id number] Name: VICTOR HUGO ASIF Rep #:[id number] : 1985 39 From: Giovani ness DO PCP: Dr. Ranjit Azar DO Status:AD M TERESA [facility] HPI - General General Date of Admission: 03/04/25 Date of Service: 03/04/25 Chief Complaint: Chest pain HPI Narrative VICTOR HUGO ASIF, is a 39 M who presented to [facility] ED on 03/04/2025 with chest pain.Medical history significant for hypertension, type 2diabetes mellitus and class I obesity. Patient lives at home with his . 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 He reports ongoing chest pain/heaviness in the center part of his chest for the past 3 days. He has had chest discomfort in that area before but never this severe. Denies any radiation of the pain into his arms or into his neck. Notes that the pain seems to worsen slightly with exertion but does not improve significantly with rest. Denies anyacid reflux symptoms. Denies any recent falls or trauma. Denies any tobacco, alcohol orrecreational drug use. Denies any significant family history of cardiac disease that he is aware of. In the ED he was hypertensive to the 150s to 160s systolic but otherwise in normal sinus rhythm and stable on room air at rest. CBC and BMP were benign. Glucose 167. Troponins negative x 2. BNP normal. Chest x-ray nonacute. EKG with normal sinus rhythm and no ST changes noted. Has never had an echo or stress test done. Given his age, heart score 4and ongoing chest pain, hospitalist was contactedfor admission. I saw the patient at bedside in the ED. Patient was sitting back fairly comfortably in bed, in no acute distress. He was conversing normally and was somewhat long-winded with conversation. He was given a dose of aspirin 325 mg in the ED. Notes that his chest pain is slightly improvedfrom earlier today. Denies any shortness of breath. Patient notes that he has currently on only lisinopril andTrulicity at home, though he apparently was previously on several other medications as of about a year ago. However, he lost his insurance coverage andis seeing a new PCP who he notes took him off most of these medications because they were not needed. He denies any other acute concerns currently. [facility] Medical History Acute gangrenous cholecystitis Acute cholecystitis DM2 (diabetes mellitus, type 2) Schizoaffective disorder Cholecystitis Depression Seizure SOB (shortness of breath) Asthma HTN (hypertension) Home Medications ?Medication ?Instructions ?Recorded ?Last Taken ?Type lisinopril 10 mg tablet 10 mg PO DAILY 03/04/25 Unkn own History Allergy/AdvReac Type Severity Reaction Status Date / Time hydrocodone bitartrate (From Allergy Hives Verified 03/04/25 11:16 Vicodin) acetaminophen AdvReac Nausea/hive Verified 03/04/25 11:16 s baclofen AdvReac IT MAKES Verified 03/04/25 11:16 HIM LIGHTHEADED AND SICK lactose AdvReac Nausea Verified 03/04/25 11:16 Penicillins AdvReac Nausea Verified 03/04/25 11:16 Surgical History History of laparoscopic cholecystectomy (~04/20/19) Social History household members: spouse and family current occupational status: employed Smoking Status: Former smoker ROS Constitutional Constitutional: Denies chills, fatigue, fever(s) or weakness Cardiovascular Cardiovascular: Reports chest pain; Denies dyspnea on exertion, edema, lightheadedness or palpitations Respiratory/Chest Respiratory/Chest: Denies cough, shortness of breath at rest or shortness of breath with exertion Gastrointestinal Gastrointestinal: Denies abdominal pain Musculoskeletal Musculoskeletal: Denies arthralgias or myalgias Neurologic Neurologic: Denies dizziness, focal weakness or headache(s) Vital Signs Vital Signs Vital Signs: 03/04/25 11:16 03/04/25 13:16 03/04/25 14:50 Temperature 98 F Temperature Source Temporal Pulse Rate 107 H 78 77 Respiratory Rate 18 16 Blood Pressure 152/104 H 156/114 H 158/108 H Blood Pressure Mean 120 128 124 Pulse Ox 100 100 Oxygen Delivery Method Room Air Weight Weight: 91 kg Body Mass Index (BMI) 32.3 Physical Exam Const alert, oriented x3, no apparent distress and average body habitus Constitutional Narrative: Middle-age male, class I obesity, mildly fatigued appearing, otherwise sitting back fairly comfortably in bed, conversing normally, in no acute distress. General Appearance: cooperative and comfortable HEENT normocephalic, head/scalp atraumatic, hearing grossly normal bilaterally, nasal mucous membranes and turbinates normal and moist oral mucous membranes Eyes PERRL, EOMs intact bilaterally and conjunctivae normal Neck full ROM Chest inspection of chest normal Resp normal respiratory effort, normal air movement, no use of accessory muscles and clear to auscultation bilaterally Cardio regular rate, regular rhythm, no murmurs and peripheral pulses 2+ throughout GI normal to inspection, nondistended, normoactive bowel sounds, soft to palpation,non-tender and non-distended Back/Spine normal ROM Extremity normal to inspection, full ROM and no pedal edema Skin no rashes or lesions noted Psych mental status grossly normal Results Lab / Micro Data 03/04/25 11:38 03/04/25 11:38 Labs: Laboratory Results - last 24 hr 03/04/25 11:38: WBC 4.2 L, RBC 4.50 L, Hgb 12.4 L, Hct 37.5 L, MCV 83.3, MCH 27.6, MCHC 33.1, RDW Std Deviation 36.6, RDW Coeff of Ferny 12.0, Plt Count 254, MPV 11.3, Immature Gran % (Auto) 0.500, Neut % (Auto) 60.9, Lymph % (Auto) 29.7,Davison % (Auto) 7.2, Eos % (Auto) 0.7, Baso % (Auto) 1.0, Absolute Neuts (auto) 2.5, Absolute Lymphs (auto) 1.24, Nucleated RBC % 0, PT 12.7, INR 0.9, APTT 25.8, D-Dimer Quant (PE/DVT) 0.43, Sodium 139, Potassium 4.0, Chloride 103, Carbon Dioxide 24.4, Anion Gap 11, BUN 12, Creatinine 0.97, Estim Creat Clear Calc 105.86, Est GFR (MDRD) Non-Af 101, BUN/Creatinine Ratio 12.6, Glucose 167 H, Calcium 9.4, Troponin T High Sens 15, NT pro BNP II 62 03/04/25 14:06: Troponin T Hi Sens 2 Hr 10 Imaging Radiology Impression Chest X-Ray 03/04/25 11:59 IMPRESSION: No acute cardiopulmonary process Reading Location: [id number] Assessment & Plan Assessment/Plan (1) Chest pain: PLAN: Plan Patient is a 39-year-old male who presented to [facility] ED on 03/04/2025 with chest pain. 1. Chest pain, ACS rule out ? Admit under observation status to PCU. Troponins negative x 2, EKG with normal sinus rhythm and no ST changes, chest x-ray negative and BNP normal. However, given history of hypertension, diabetes and obesity as below and heart score 4, cannot rule out cardiac etiology. Nuclear stress test and echocardiogram ordered. A.m. fasting lipid profile ordered. Monitor cardiac telemetry. 2. 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 ? Patient hypertensive to the 150s to 160s systolic and 100s diastolic in the ED. Noted that he hadnot taken his home lisinopril 10 mg yet today. Does not check his blood pressures at home. Suspect patient may have poorly controlled hypertension and may need additional antihypertensive therapy forthis. For nowmary continue home lisinopril and add IV hydralazine as needed for SBP greater than 170. 3. Type 2 diabetes mellitus ? Glucose 167 on admit. A1c 8.5%. Last A1c in our system was from 2018; was 6.0% then but was up at9.5% back in 2014. Patient reports being on only weeklyTrulicity at this time. Will treat with sliding scale insulin with meals while inpatient. Could consider initiation of metformin on discharge ordefer to PCP for medication changes. 4. Class I obesity ? BMI 32 on admit. Discussed lifestyle modifications. Complicates hospital course and care. DVT prophylaxis: Lovenox CODE STATUS: Full code, verified Expected disposition: Home, 1 to 2 days Total clinical time spent by myself addressing the patient's medical issues, reviewing all the data, and collaborating with patient's care team: 76 minutes. Charges/Coding Visit Charges Inpatient E&M: 26747 Init Hosp L3 03/04/252001 Cosigner Signature (if applicable): CC: Dr. Giovani Membreno, ; Dr. Ranjit Azar DO~ Signed [facility]09-30-2025 Discharge summary Author Timothy Chao [facility] Note Date/Time March 04, 2025 3:02pm [facility] Medical Records Department [address] [place] [address] Emergency Department Summary 03/04/25 MR#: [id number] Acct: [id number] Name: VICTOR HUGO ASIF Rep #:[id number] : 1985 39 From: Timothy rowe DO PCP: Dr. Ranjit Azar DO Status:RE G ER Location: ED HPI History of Present Illness Chief Complaint: Chest Pain Narrative Narrative: Chief complaint and HPI: 39-year-old male with past medical history of DM2, seizures, asthma, HTN presents for evaluation of midsternal chest pain. Describes the pain as pressure. Worse with exertion. Has not taken any OTC medication for the pain. Denies any injury or lifting anything heavy. Denies any recent travel or lower extremity swelling or pain. Denies tobacco abuse. Denies any fever, chills, shortness of breath, abdominal pain, nausea, vomiting. Review of systems: See HPI Medications: As listed on the chart Allergies: As listed on the chart PFSH: Per chart Vital signs: As listed on the chart. Reviewed. Physical exam: Gen: A&O x3, NAD Head: Normocephalic, atraumatic Eyes: No sclera icterus, conjunctiva clear ENT: Moist mucous membranes Neck: Trachea midline, No JVD CV: RRR, no murmurs, chest pain nonreproducible, no peripheral edema Resp: Lungs CTA BL, no w/r/c GI: Abd soft, non-distended, non-tender, no r/r/g Musc: Full ROM, no deformity, bilateral ankle/feet braces Skin: Warm, dry Neuro: Alert, oriented, grossly intact, sensation intact Psych: Cooperative, appropriate mood and affect [facility] Medical History Acute gangrenous cholecystitis Acute cholecystitis DM2 (diabetes mellitus, type 2) Schizoaffective disorder Cholecystitis Depression Seizure SOB (shortness of breath) Asthma HTN (hypertension) Home Medications ?Medication ?Instructions ?Recorded ?Last Taken ?Type lisinopril 10 mg tablet 10 mg PO DAILY 03/04/25 Unkn own History Allergy/AdvReac Type Severity Reaction Status Date / Time hydrocodone bitartrate (From Allergy Hives Verified 03/04/25 11:16 Vicodin) acetaminophen AdvReac Nausea/hive Verified 03/04/25 11:16 s baclofen AdvReac IT MAKES Verified 03/04/25 11:16 HIM LIGHTHEADED AND SICK lactose AdvReac Nausea Verified 03/04/25 11:16 Penicillins AdvReac Nausea Verified 03/04/25 11:16 Surgical History History of laparoscopic cholecystectomy (~04/20/19) Social History household members: spouse and family current occupational status: employed Smoking Status: Former smoker EXAM Physical Exam Const Vital Signs: 03/04/25 11:16 03/04/25 13:16 03/04/25 14:50 Temperature 98 F Temperature Source Temporal Pulse Rate 107 H 78 77 Respiratory Rate 18 16 Blood Pressure 152/104 H 156/114 H 158/108 H Blood Pressure Mean 120 128 124 Pulse Ox 100 100 Oxygen Delivery Method Room Air MDM MDM MDM Narrative Medical decision making narrative: 39-year-old male with past medical history of DM2, seizures, asthma, HTN presents for evaluation of midsternal chest pain. Describes the pain as pressure. Worse with exertion. Has not taken any OTC medication for the pain. Differential diagnosis includes but is not limited to ACS, hypertension urgency,electrolyte abnormality, DVT, myofascial spasm. Aspirin ordered for pain. Cardiac workup ordered. CBC with leukopenia 4.2 and anemia of 12.4. On chart review patient has anemia in the past and this is similar. Platelets unremarkable. Coagulation panel unremarkable. BMP unremarkable. BNP unremarkable. Troponin x 2 unremarkable. On reevaluation patient states his chest pain is intermittent and still present. His heart score is a 4 which places him in a moderate category. Given that his chest pain worsens with exertion will speak with hospitalist about admission for ACS workup. Hospitalist accepted admission. Patient was updated on the results and further understand the plan. EKG: Interpreted by me/EM physician: EKG shows normal sinus rhythm with nonspecific ST changes. Heart rate 98. Diagnostic: Interpreted by me/EM physician: Chest x-ray pneumonia, effusion, cardiomegaly, pneumothorax. Radiology in agreement. Impression: 1. Chest pain, with ACS rule out 2. 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 with history of hypertension 3. Anemia with history of anemia Lab Data Labs: Laboratory Results - last 24 hr 03/04/25 03/04/25 11:38 14:06 WBC 4.2 L RBC 4.50 L Hgb 12.4 L Hct 37.5 L MCV 83.3 MCH 27.6 MCHC 33.1 RDW Std Deviation 36.6 RDW Coeff of Ferny 12.0 Plt Count 254 MPV 11.3 Immature Gran % (Auto) 0.500 Neut % (Auto) 60.9 Lymph % (Auto) 29.7 Davison % (Auto) 7.2 Eos % (Auto) 0.7 Baso % (Auto) 1.0 Absolute Neuts (auto) 2.5 Absolute Lymphs (auto) 1.24 Nucleated RBC % 0 PT 12.7 INR 0.9 APTT 25.8 D-Dimer Quant (PE/DVT) 0.43 Sodium 139 Potassium 4.0 Chloride 103 Carbon Dioxide 24.4 Anion Gap 11 BUN 12 Creatinine 0.97 Estim Creat Clear Calc 105.86 Est GFR (MDRD) Non-Af 101 BUN/Creatinine Ratio 12.6 Glucose 167 H Calcium 9.4 Troponin T High Sens 15 Troponin T Hi Sens 2 Hr 10 NT pro BNP II 62 Radiography Diagnostic Testing: Clinical Impression(s) from Imaging Studies Chest X-Ray 03/04/25 11:59 IMPRESSION: No acute cardiopulmonary process Reading Location: [facility] Discharge Plan Triage Chief Complaint: Chest Pain ED Provider: Timothy Chao Dx/Rx/DC Orders Prescriptions: No Action lisinopril 10 mg tablet 10 mg PO DAILY Primary Care Provider: Ranjit Azar Referrals: Ranjit Azar DO [Primary Care Provider, Medical] Print Language: Northern Irish What to do if you have Problems For any increased pain, shortness of breath, bleeding, nausea or vomiting, chestpain, or any unexpected problems, contact your Primary Care Provider. Call [facility] ([phone]) or report to the closest Emergency Room. Call 911 if necessary. 03/04/25 1502 <Electronically signed by Timothy Chao DO> Cosigner Signature (if applicable): CC: Dr. Ranjit Azar DO ~ Signed [facility] Work Phone: [phone]) 108-457609-30-2025 Evaluation note* Diagnosis Onset Date Resolution Status Admit Date Chest pain inactive February 2:58pm [facility] Work Phone: 1(350) 315-698509-30-2025 Discharge summary [facility] Medical Records Department [address] [place] [address] Emergency Department Summary 03/04/25 MR#: [id number] Acct: [id number] Name: VICTOR HUGO ASIF Rep #:[id number] : 1985 39 From: Timothy rowe DO PCP: Dr. Ranjit Azar DO Status:RE G ER Location: ED HPI History of Present Illness Chief Complaint: Chest Pain Narrative Narrative: Chief complaint and HPI: 39-year-old male with past medical history of DM2, seizures, asthma, HTN presents for evaluation of midsternal chest pain. Describes the pain as pressure. Worse with exertion. Has not taken any OTC medication for the pain. Denies any injury or lifting anything heavy. Deniesany recent travel or lower extremity swelling or pain. Denies tobacco abuse. Denies any fever, chills, shortness of breath, abdominal pain, nausea, vomiting. Review of systems: See HPI Medications: As listed on the chart Allergies: As listed on the chart PFSH: Per chart Vital signs: As listed on the chart. Reviewed. Physical exam: Gen: A&O x3, NAD Head: Normocephalic, atraumatic Eyes: No sclera icterus, conjunctiva clear ENT: Moist mucous membranes Neck: Trachea midline, No JVD CV: RRR, no murmurs, chest pain nonreproducible, no peripheral edema Resp: Lungs CTA BL, no w/r/c GI: Abd soft, non-distended, non-tender, no r/r/g Musc: Full ROM, no deformity, bilateral ankle/feet braces Skin: Warm, dry Neuro: Alert, oriented, grossly intact, sensation intact Psych: Cooperative, appropriate mood and affect [facility] Medical History Acute gangrenous cholecystitis Acute cholecystitis DM2 (diabetes mellitus, type 2) Schizoaffective disorder Cholecystitis Depression Seizure SOB (shortness of breath) Asthma HTN (hypertension) Home Medications ?Medication ?Instructions ?Recorded ?Last Taken ?Type lisinopril 10 mg tablet 10 mg PO DAILY 03/04/25 Unkn own History Allergy/AdvReac Type Severity Reaction Status Date / Time hydrocodone bitartrate (From Allergy Hives Verified 03/04/25 11:16 Vicodin) acetaminophen AdvReac Nausea/hive Verified 03/04/25 11:16 s baclofen AdvReac IT MAKES Verified 03/04/25 11:16 HIM LIGHTHEADED AND SICK lactose AdvReac Nausea Verified 03/04/25 11:16 Penicillins AdvReac Nausea Verified 03/04/25 11:16 Surgical History History of laparoscopic cholecystectomy (~04/20/19) Social History household members: spouse and family current occupational status: employed Smoking Status: Former smoker EXAM Physical Exam Const Vital Signs: 03/04/25 11:16 03/04/25 13:16 03/04/25 14:50 Temperature 98 F Temperature Source Temporal Pulse Rate 107 H 78 77 Respiratory Rate 18 16 Blood Pressure 152/104 H 156/114 H 158/108 H Blood Pressure Mean 120 128 124 Pulse Ox 100 100 Oxygen Delivery Method Room Air MDM MDM MDM Narrative Medical decision making narrative: 39-year-old male with past medical history of DM2, seizures, asthma, HTN presents for evaluation ofmidsternal chest pain. Describes the pain as pressure. Worse with exertion. Has not taken any OTC medication for the pain. Differential diagnosis includes but is not limited to ACS, hypertension urgency,electrolyte abnormality, DVT, myofascial spasm. Aspirin ordered for pain. Cardiac workup ordered. CBC with leukopenia 4.2 and anemia of 12.4. On chart review patient has anemia in the past and this is similar. Platelets unremarkable. Coagulation panel unremarkable. BMP unremarkable. BNP unremarkable. Troponin x 2 unremarkable. On reevaluation patient states his chest pain is intermittent and still present. His heart score is a 4 which places him in a moderate category. Given that his chest pain worsens with exertion will speak with hospitalist about admission for ACS workup. Hospitalist accepted admission. Patient was updated on the results and further understand the plan. EKG: Interpreted by me/EM physician: EKG shows normal sinus rhythm with nonspecific ST changes. Heart rate 98. Diagnostic: Interpreted by me/EM physician: Chest x-ray pneumonia, effusion, cardiomegaly, pneumothorax. Radiology in agreement. Impression: 1. Chest pain, with ACS rule out 2. 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 with history of hypertension 3. Anemia with history of anemia Lab Data Labs: Laboratory Results - last 24 hr 03/04/25 03/04/25 11:38 14:06 WBC 4.2 L RBC 4.50 L Hgb 12.4 L Hct 37.5 L MCV 83.3 MCH 27.6 MCHC 33.1 RDW Std Deviation 36.6 RDW Coeff of Ferny 12.0 Plt Count 254 MPV 11.3 Immature Gran % (Auto) 0.500 Neut % (Auto) 60.9 Lymph % (Auto) 29.7 Davison % (Auto) 7.2 Eos % (Auto) 0.7 Baso % (Auto) 1.0 Absolute Neuts (auto) 2.5 Absolute Lymphs (auto) 1.24 Nucleated RBC % 0 PT 12.7 INR 0.9 APTT 25.8 D-Dimer Quant (PE/DVT) 0.43 Sodium 139 Potassium 4.0 Chloride 103 Carbon Dioxide 24.4 Anion Gap 11 BUN 12 Creatinine 0.97 Estim Creat Clear Calc 105.86 Est GFR (MDRD) Non-Af 101 BUN/Creatinine Ratio 12.6 Glucose 167 H Calcium 9.4 Troponin T High Sens 15 Troponin T Hi Sens 2 Hr 10 NT pro BNP II 62 Radiography Diagnostic Testing: Clinical Impression(s) from Imaging Studies Chest X-Ray 03/04/25 11:59 IMPRESSION: No acute cardiopulmonary process Reading Location: [facility] Discharge Plan Triage Chief Complaint: Chest Pain ED Provider: Timothy Chao Dx/Rx/DC Orders Prescriptions: No Action lisinopril 10 mg tablet 10 mg PO DAILY Primary Care Provider: Ranjit Azar Referrals: Ranjit Azar DO [Primary Care Provider, Medical] Print Language: Northern Irish What to do if you have Problems For any increased pain, shortness of breath, bleeding, nausea or vomiting, chestpain, or any unexpected problems, contact your Primary Care Provider. Call [facility] ([phone]) or report tothe closest Emergency Room. Call 911 if necessary. 03/04/25 1502 Cosigner Signature (if applicable): CC: Dr. Ranjit Azar DO ~ Signed [facility]09-30-2025 Radiology Diagnostic study note [facility] Imaging Services [address] [place] [address] [id number] Chest PA and Lateral MR#: [id number] Acct: [id number] Name: VICTOR HUGO ASIF Rep #: [id number] : 1985 M 39 From: Edw nikita Hawk MD PCP: Dr. Ranjit Azar DO Status: RE G ER Study:Chest PA and Lateral Date of Exam: 03/04/25 Exam# [id number] Ordering Dr: Timothy Velez DO PROCEDURE: CHEST PA AND LATERAL 03/04/2025 REASON FOR EXAM: CHEST PAIN TECHNIQUE: Procedure Code: RADCXR Modality: DX Procedure: CHEST PA AND LATERAL COMPARISON: March 01, 2024 FINDINGS: Hardware: None Heart: Normal Mediastinum: Normal Lungs: Clear Bones: The bones are unremarkable. RAD/Chest PA and Lateral IMPRESSION: No acute cardiopulmonary process Reading Location: [id number] CC: Dr. Timothy Chao, DO; Dr. Ranjit zAar, DO ~ Professional Skater: Signed [facility]09-03-2025 Telephone encounter Note* Telephone Encounter - Lary Mora LPN - 02/05/2025 9:30 AM EDT This was denied noting pt is not on multiple insulins daily. Dear Lance Pulido: Recently, you or your doctor asked us to review a request for medication. We reviewed the request and it is not approved. We d like to explain why. We denied your request because we did not see what we need to approve the device you asked for, (Freestyle Lico 3 sensor). Wemay be able to approve this device in a certain situation (when you need insulin more than once a day or you need a certain device [insulin pump] to control your blood sugar). We do not see that thisapplies to you. [facility]09-03-2025 Miscellaneous Notes* Telephone Encounter - Lary Mora LPN - 02/05/2025 9:30 AM EDT This was denied noting pt is not on multiple insulins daily. Dear Lance Pulido: Recently, you or your doctor asked us to review a request for medication. We reviewed the request and it is not approved. We d like to explain why. We denied your request because we did not see what we need to approve the device you asked for, (Freestyle Lico 3 sensor). Wemay be able to approve this device in a certain situation (when you need insulin more than once a day or you need a certain device [insulin pump] to control your blood sugar). We do not see that thisapplies to you. 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 If the trulicity or sensors aren't affordable reach out to me Follow up as scheduled documented in this encounterProm[facility]08-[facility] History of Present illness Narrative* Lance Pulido APRN.CNP - 01/27/2025 10:20 AM EDT This is a 39 year old male who presents today with: Victor Hugo Asif is a 39-year-old male with a history of type 2 diabetes mellitus, HTN, and migraines,presenting for follow-up. HISTORY OF PRESENT ILLNESS: Type 2 Diabetes Mellitus: - Diagnosed in [id number] - Previously on Trulicity and Tresiba; discontinued [...] horns. - no recent seizures reported, follows [facility] neurology Dr Owens last seen 12/20 Vitamin D Deficiency: - Previously on vitamin D3; discontinued. - Last level was 9.1 ng/mL, 7 months ago. Vision: - Wears glasses; last eye exam within the past year at [facility] per patient - Diagnosed with something he can't recall that they said surgery would be indicated possibly - Interested in LASIK surgery. Lifestyle: - Walks frequently due to not having a carry all driver's license. - Cooks meals from scratch, avoids cooking oil. 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 Rinse mouthout after use. dulaglutide (TRULICITY) 1.5 mg/0.5 mL [...] kg (202 lb 9.6 oz) BMI 32.70 kg/m PHYSICAL EXAM: General Appearance: Well appearing, alert, [...] neuropathy, with long-term current use of insulin ([facility]) -ICD9: 250.60, 357.2, V58.67, ICD10: E11.40, Z79.4 (primary [...] medications that make him tired as they didbefore. Educated on significance of his A1C and that these numbers indicate daily insulin injections and even if he didn't have symptoms are still causing damage to his body. Compromised and willing to start one medication. Encouraged him that if it's not affordable to send [employer] message to me soumya we can develop a new plan - [...] to monitor his blood sugars. Bring phone edna in at next visit to have provider [...] scheduled or as needed for worsening/no improvement. Lance Pulido APRN.CHRIS I spent a total of 50 minutes on the date of the service which included preparing to see the patient, [id number] patient care, completing clinical documentation, obtaining and/or reviewing separately obtained history, performing a medically appropriate examination, counseling and educating the pat ient/family/caregiver, and ordering medications, tests, or procedures At least 50% of the time spent in room with patient listening, educating, and developing a plan forhis diabetes regimen and compliance Recording using Quintic software for draft documentation of the visit was discussed with the patient/authorized safety representative; all questions welcomed and answered. 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 Author Type: Nurse Practitioner Type: Progress Notes Filed: 01/27/2025 12:30 Note Text: This is a 39 year old male who presents today with: Victor Hugo Bajwa Yefri is a 39-year-old male with a history of type 2 diabetes mellitus, HTN, and migraines, presenting for follow-up. HISTORY OF PRESENT ILLNESS: Type 2 Diabetes Mellitus: - Diagnosed in [id number] - Previously on Trulicity and Tresiba; discontinued [...] having his finger pricked today for A1C Gricelda labs Alb/creat ratio 225 Fast glucose 278 [...] horns. - no recent seizures reported, follows hi8 neurology Dr Owens last seen 12/20 Vitamin D Deficiency: - Previously on vitamin D3; discontinued. - Last level was 9.1 ng/mL, 7 months ago. Vision: - Wears glasses; last eye exam within the past year at [facility] per patient - Diagnosed with something he can't recall that they said surgery would be indicated possibly - Interested in LASIK surgery. Lifestyle: - Walks frequently due to not having a carry all driver's license. - Cooks meals from scratch, avoids cooking oil. 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 Blood-Glucose Sensor (FREESTYLE LICO 3 (more content not included)...[facility]08-19-2025 Telephone encounter Note* Telephone Encounter - Chloe Gardiner LPN - 01/21/2025 1:54 PM EDT The patient has been identified by name and date of : Yes Caregiver verified no other encounters exist for this prescription request: Yes Caregiver confirmed with patient/requestor that no other refills are due, in the near future, with this provider at this time: Yes The last office visit in the department: 06/19/2024 Does the patient have a future office visit with this provider/department: No transferring to sleeping room cleaner to get appt set up, insurance issues Requested Prescriptions Pending Prescriptions Disp Refills lisinopril (ZESTRIL) 10 mg tablet 90 tablet 1 Sig: Take 1 tablet by mouth once daily. Patient said he has not been taking his Metformin rx for long time. 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 Patient said he has not been taking his Metformin rx for long time. Chloe Gardiner LPN January 21, 2025 1:55 PM documented in this encounterPromedica Toledo Hospital08-19-2025 Discharge summary [facility] Medical Records Department [address] [place] [address] Emergency Department Summary 01/21/25 MR#: [id number] Acct: [id number] Name: VICTOR HUGO ASIF Rep #:[id number] : 1985 39 From: Javid Winter MD PCP: Dr. Rajnit Azar, DO Status:RE G ER Location: ED HPI History of Present Illness Chief Complaint: Numb/Ting Narrative Narrative: 39-year-old male with past medical history of type 2 diabetes but not on medication, presents with numbness and tingling of his hands bilaterally as wellas his feet bilaterally that has had for 2 to 3 days. He denies any headache, no exacerbating or alleviating factors. He states he does see a neuro logist because of his type 2 diabetes, but has been without medication for at least a year. He states that his paresthesias and numbness of his hands and feet have been constant over the last few days, but worsened today when he was at work. No recent nausea or vomiting, no other symptoms. [facility] Medical History Acute gangrenous cholecystitis Acute cholecystitis DM2 (diabetes mellitus, type 2) Schizoaffective disorder Cholecystitis Depression Seizure SOB (shortness of breath) Asthma HTN (hypertension) Allergy/AdvReac Type Severity Reaction Status Date / Time hydrocodone bitartrate (From Allergy Hives Verified 03/01/24 09:17 Vicodin) acetaminophen AdvReac Nausea/hive Verified 03/01/24 09:17 s baclofen AdvReac IT MAKES Verified 03/01/24 09:17 HIM LIGHTHEADED AND SICK lactose AdvReac Nausea Verified 03/01/24 09:17 Penicillins AdvReac Nausea Verified 03/01/24 09:17 Surgical History History of laparoscopic cholecystectomy (~04/20/19) Social History household members: spouse and family current occupational status: employed Smoking Status: Former smoker ROS ROS ED ROS Narrative Review of systems positive for numbness and tingling of bilateral hands and bilateral feet for the last 3 days. No headache or neck pain. No fevers or chills, no nausea or vomiting. No exacerbating or alleviating factors. EXAM Physical Exam Narrative Exam Narrative: Afebrile. Vital signs noted. Nontoxic-appearing. Cardiovascular examination reveals mild tachycardia. Lungs are clear to auscultation bilaterally. Abdomenis soft and nontender with without guarding or rebound. Positive bowel sounds. Neurological examination is nonfocal, nonlateralizing. Moves all extremities. Awake, alert, interactive. Const Vital Signs: 01/21/25 11:46 01/21/25 12:46 01/21/25 13:00 Temperature 98.6 F Temperature Source Oral Pulse Rate 124 H 98 97 Respiratory Rate 16 24 H 24 H Blood Pressure 147/103 H 144/102 H 137/88 H Blood Pressure Mean 117 116 104 Pulse Ox 98 97 98 Oxygen Delivery Method Room Air Room Air MDM MDM MDM Narrative Medical decision making narrative: The differential diagnosis includes but not limited to dehydration versus other electrolyte imbalance versus paresthesias versus hyperventilation. I doubt TIA or stroke and I do not feel stroke team is indicated because his symptoms are bilateral. CT of the brain radiology report was reviewed and there are chronic changes but no acute intracranial pathology. I reviewed his laboratory work and he has a normal white count of 6.1 with hemoglobin 13.7, hematocrit 40.6, platelet count 270. Electrolyte panel shows normal sodium of 134 with potassium 4.5, CO2 of 23.7, BUN 13 and creatinine slightly elevated at 1.42 but when compared to priorlabs,he has had elevation in his creatinine previously intermittently. While glucose is elevated at 440,he has a normal anion gap of 11 so I doubt diabetic ketoacidosis. His magnesium level is normal at 2.0. He was told that he may need to be started on medications for his hyperglycemia. After half a liter of IV fluids, his heart rate is currently in the 90s. Repeat examination shows himresting comfortably. He may be having more of a diabetic neuropathy. At this point in time, I do feel he can be discharged to follow-up with his primary careprovider and his neurologist. I do not feel he requires admission. Return instructions to the emergency department were reviewed. Disposition is discharged home in stable condition. History & Record Review Discussion w/independent historian: Patient Additional record(s) reviewed:: Prior labs Lab Data Attestation: I reviewed the patient's lab results. Labs: Laboratory Results - last 24 hr 01/21/25 12:25 WBC 6.1 RBC 5.12 Hgb 13.7 Hct 40.6 MCV 79.3 L MCH 26.8 L MCHC 33.7 RDW Std Deviation 33.7 L RDW Coeff of Ferny 11.7 Plt Count 270 MPV 11.1 Immature Gran % (Auto) 0.300 Neut % (Auto) 62.8 Lymph % (Auto) 28.4 Davison % (Auto) 7.4 Eos % (Auto) 0.3 Baso % (Auto) 0.8 Absolute Neuts (auto) 3.8 Absolute Lymphs (auto) 1.72 Nucleated RBC % 0 Sodium 134 Potassium 4.5 Chloride 99 Carbon Dioxide 23.7 Anion Gap 11 BUN 13 Creatinine 1.42 H Estim Creat Clear Calc 71.96 Est GFR (MDRD) Non-Af 64 BUN/Creatinine Ratio 9.2 L Glucose 440 H Calcium 9.8 Magnesium 2.0 Radiography Diagnostic Testing: Clinical Impression(s) from Imaging Studies Brain CT 01/21/25 12:15 IMPRESSION: There is a patent cavum, unchanged. There is dilation of the occipital horns of the right and left lateral ventricle, measuring 2.1 cm on the right, and 2.9 cm in the left, unchanged. No acute intracranial pathology. Reading Location: [facility] Discharge Plan Triage Chief Complaint: Numb/Ting ED Provider: Javid Winter Dx/Rx/DC Orders Clinical Impression: Paresthesias, Numbness and tingling in both hands, Numbness and tingling of both feet Instructions: ED Neuropathy, Peripheral, ED Paresthesia Primary Care Provider: Ranjit Azar Referrals: Care Physician,No Primary [Non-Staff] - Activity Restrictions/Additional Instructions: Follow-up with your primary care provider. You had elevated sugars today and may need to be startedon medication again if your glucose/sugars are not controlled with diet and exercise. Return to theemergency department with new or worsening symptoms. Follow-up with your neurologist as well. Print Language: Northern Irish Disposition Disposition: Home, Self Care What to do if you have Problems For any increased pain, shortness of breath, bleeding, nausea or vomiting, chestpain, or any unexpected problems, contact your Primary Care Provider. Call [facility] ([phone]) or report tothe closest Emergency Room. Call 911 if necessary. 01/21/25 1334 Cosigner Signature (if applicable): CC: Dr. Ranjit Azar, ~ Signed [facility]08-19-2025 Radiology Diagnostic study note [facility] Imaging Services [address] [place] [address] Brain/Head without Contrast MR#: [id number] Acct: [id number] Name: VICTOR HUGO ASIF Rep #: [id number] : 1985 M 39 From: Ibrahima Palacios MD PCP: Dr. Ranjit Azar DO Status: RE G ER Study:Brain/Head without Contrast Date of Exa m: 01/21/25 Exam# [id number] Ordering Dr: Javid Winter MD EXAM: NONCONTRAST CT SCAN OF THE HEAD CLINICAL HISTORY: Numbness COMPARISON: February 08, 2023, April 22, 2020 TECHNIQUE: Serial axial series through the head were obtained without contrast. 2-D coronaland sagittal reformats were then obtained. FINDINGS: Brain: There is a patent cavum, unchanged. There is dilation of the occipital horns of the right and left lateral ventricle, measuring 2.1 cm on the right, and 2.9 cm in the left, unchanged. There is no acute large territorial infarct, intracranial hemorrhage, midline shift or mass effect. The sella and pineal gland regions appear unremarkable. There is no evidence of cerebellar tonsillar herniation. Ventricles: Basilar cisterns are patent. Paranasal sinuses: Well-aerated Mastoid air cells: Well-aerated. Calvarium: The bony calvarium is intact. Orbits: The bilateral globes are symmetric, without retrobulbar compressive masslesion or hemorrhage. CT/Brain/Head without Contrast IMPRESSION: There is a patent cavum, unchanged. There is dilation of the occipital horns of the right and left lateral ventricle, measuring 2.1 cm on the right, and 2.9 cm in the left, unchanged. No acute intracranial pathology. Reading Location: [facility] CC: Dr. Javid Winter MD; Dr. Ranjit Azar DO ~ Professional Skater: Signed [facility]07-18-2025 History of Present illness Narrative* Leanna Owens MD - 12/20/2024 9:30 AM EDT [facility]rological [facility] EPILEPSY CLINIC NOTE - RETURN [...] inpatient video-EEG to confirm diagnosis. He was admitted09/03 - 09/07/2021; VPA was held but he did not have any typical events. He was discharged on VPA 2000 mg qhs and GBP 100 BID for neuropathy. At 10/07/2021 visit with [facility] he reported continued episodes of little seizures [...] UI or TB. He was taken to [facility] where he received 10mg IM versed. Denies triggers (missed doses, sleep deprivation illness). Level of VPA was 89 at [facility]. Seizure Types: 1) little ones [left or [...] a change in temperature in his whole body,which can be hot or cold, lasting about 5-25 minutes. Sometimes he feels weak in entire body (about70% of seizures), which could last 15-20 minutes. [...] and was discharged the same day). 2. INTERNAL REVIEW AND AUDIT COMPLIANCE Infections (no) 3. Family History of Seizures (yes, biological mother has seizures) 4. Developmental Delay (Learning disability class) 5. Febrile Seizures (no) 6. INTERNAL REVIEW AND AUDIT COMPLIANCE Tumors (no) 7. 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 DATA: [facility] Chronic change: Colpocephaly pattern consistent with [...] Valproic Acid VPA, Free Latest Ref Rng & Units 50.0 - 100.0 ug/mL 4.0 - [...] with some improvement with the increase in VPAto 2000 mg QHS. He reported less stress, [...] which included preparing to see the patient, [id number] patient care, completing clinical documentation, counseling and educating the patient/family/caregiver, and ordering medications, tests, or procedures. Leanna Owens MD documented in this encounterPromedica [facility]07-18-2025 NoteHNO ID: [id number] Author: LEANNA OWENS MD Service: ? Author Type: Physician Type: Progress Notes Filed: 12/20/2024 12:47 Note Text: [facility] EPILEPSY CLINIC NOTE - RETURN [...] BID for neuropathy. At 10/07/2021 visit with [facility] he reported continued episodes of little seizures [...] UI or TB. He was taken to [facility] where he received 10mg IM versed. Denies triggers (missed doses, sleep deprivation illness). Level of VPA was 89 at [facility]. Seizure Types: 1) little ones [left or [...] body, which can be hot or cold, (more content not included)... [facility]02-06-[facility] Telephone encounter Note* Telephone Encounter - Beverly Wade LPN - 07/11/2024 3:04 PM EST Spoke with pt gave information provided . Pt voices understanding. Tried to set up appointment it denyed letting me to ok to psr to get appointment made. [facility]02-06-[facility] Miscellaneous Notes* Telephone Encounter - Beverly Wade LPN - 07/11/2024 3:04 PM EST Spoke with pt gave information provided . Pt voices understanding. Tried to set up appointment it denyed letting me to ok to psr to get appointment made. * Telephone Encounter - Jaimie Egan MA - 07/11/2024 10:05 AM EST [employer] message sent to pt, asking them to call back for results. Jaimie Egan MA * Telephone Encounter - Beverly Wade LPN - 07/01/2024 4:35 PM EST Left message to return call. * Telephone Encounter - Nicole Bass APRN.WARRANTY CLERK - 07/01/2024 3:32 PM EST Please call patient and let her know [...] 1 month to monitor blood sugars from [facility]. Also, vitamin D level is extremely low. He needs to be taking 50,000 units of vitamin D3 weekly. Rxsent to pharmacy. Thank you, Nicole Bass APRN.WARRANTY CLERK The following approved medication requests have been transmitted electronically. Requested Prescriptions Signed Prescriptions Disp Refills dulaglutide (TRULICITY) 1.5 mg/0.5 mL pen injector 6 mL 0 Sig: Inject 1.5 mg subcutaneously one time a week. Authorizing Provider: NICOLE BASS cholecalciferol, Vitamin D3, (VITAMIN D3) 1,250 mcg (50,000 unit) cap capsule 4 capsule 2 Sig: Take 1 capsule by mouth one time a week. Authorizing Provider: NICOLE BASS APRN.WARRANTY CLERK documented in this encounterPromedica Toledo Hospital02-06-2025 Telephone encounter Note * Telephone Encounter - Jaimie Egan MA - 07/11/2024 10:05 AM EST [employer] message sent to pt, asking them to call back for results. Jaimie Egan MA [facility]01-27-2025 Telephone encounter Note* Telephone Encounter - Beverly Wade LPN - 07/01/2024 4:35 PM EST Left message to return call. [facility]01-27-2025 Telephone encounter Note* Telephone Encounter - Nicole Bass APRN.CHRIS - 07/01/2024 3:32 PM EST Please call patient and let her know [...] taking 50,000 units of vitamin D3 weekly. Rxsent to pharmacy. Thank you, Nicole Bass APRN.WARRANTY CLERK The following approved medication requests have been transmitted electronically. Requested Prescriptions Signed Prescriptions Disp Refills dulaglutide (TRULICITY) 1.5 mg/0.5 mL pen injector 6 mL 0 Sig: Inject 1.5 mg subcutaneously one time a week. Authorizing Provider: NICOLE BASS cholecalciferol, Vitamin D3, (VITAMIN D3) 1,250 mcg (50,000 unit) cap capsule 4 capsule 2 Sig: Take 1 capsule by mouth one time a week. Authorizing Provider: NICOLE BASS APRN.WARRANTY CLERK [facility]01-16-2025 Telephone encounter Note* Telephone Encounter - Lary Mora LPN - 06/20/2024 11:34 AM EST Images from the original note were not included. Prior authorization approved Payer: Kwesi Note from payer: CARLOS Case: [id number], Status: Approved, Coverage Starts on: 06/20/2024 12:00:00 AM, Coverage Ends on: 07/18/2024 12:00:00 AM. Approval Details Authorization number: [id number] Authorized from June 20, 2024 to July [...] to its destination. To be filled at: [facility] [place] - [address] [place] [address] - [address] [phone] Pharmacy notified. [facility]01-16-[facility]25 Miscellaneous Notes* Telephone Encounter - Lary Mora LPN - 06/20/2024 11:34 AM EST Images from the original note were not included. Prior authorization approved Payer: Kwesi Note from payer: CARLOS Case: [id number], Status: Approved, Coverage Starts on: 06/20/2024 12:00:00 AM, Coverage Ends on: 07/18/2024 12:00:00 AM. Approval Details Authorization number: [id number] Authorized from June 20, 2024 to July [...] to its destination. To be filled at: [facility] [place] - [id number] [address] [place] [address] - [address] [phone] Pharmacy notified. * Telephone Encounter - Lary Mora LPN - 06/20/2024 11:02 AM EST [employer] PA completed for first dose of 120mg 2ml. Then 120mg 1ml monthly(this was already approved) * Telephone Encounter - Love Nguyen APRN.CHRIS - 06/20/2024 10:59 AM EST Noted, thank you. Love Nguyen APRN.CHRIS * Telephone Encounter - Elise Alexandre MA - 06/20/2024 10:52 AM EST Pharmacy reports 240mg not covered by insurance. Need to complete PA. Will forward to PA nurse. Elise Alexandre MA * Telephone Encounter - Love Nguyen APRN.CHRIS - 06/19/2024 5:59 PM EST Sorry, I wanted the Lico 3. 2. The first dose of Emgality should be 240mg for the first month and then 120mg each month after. Not sure how else I'm supposed to order it? The following approved medication requests have been transmitted electronically. Requested Prescriptions Signed Prescriptions Disp Refills Blood-Glucose Meter,Continuous (FREESTYLE LICO 3 READER) misc 1 Each 0 Si Each continuous. Authorizing Provider: RANJIT ZAAR Ordering User: LOVE NGUYEN APRN.CNP * Telephone Encounter - Young Carson RN - 06/19/2024 1:57 PM EST [facility] reports: 1) Rec'vd Rx for Freestyle [...] or just do the 1 ml dose. documented in this encounterPromedica Toledo Hospital01-16-2025 Telephone encounter Note * Telephone Encounter - Lary Mora LPN - 06/20/2024 11:02 AM EST Electornic PA completed for first dose of 120mg 2ml. Then 120mg 1ml monthly(this was already approved) [facility]01-16-2025 Telephone encounter Note* Telephone Encounter - Love Nguyen APRN.CNP - 06/20/2024 10:59 AM EST Noted, thank you. Love Nguyen APRN.CHRIS [facility]01-16-[facility] Telephone encounter Note* Telephone Encounter - Elise Alexandre MA - 06/20/2024 10:52 AM EST Pharmacy reports 240mg not covered by insurance. Need to complete PA. Will forward to PA nurse. Elise Alexandre MA [facility]01-15-2025 Telephone encounter Note* Telephone Encounter - Love Nguyen APRN.CNP - 06/19/2024 5:59 PM EST Sorry, I wanted the Lico 3. 2. The first dose of Emgality should be 240mg for the first month and then 120mg each month after. Not sure how else I'm supposed to order it? The following approved medication requests have been transmitted electronically. Requested Prescriptions Signed Prescriptions Disp Refills Blood-Glucose Meter,Continuous (FREESTYLE LICO 3 READER) misc 1 Each 0 Si Each continuous. Authorizing Provider: RANJIT AZAR Ordering User: LOVE NGUYEN APRN.CNP [facility]01-15-2025 Telephone encounter Note* Telephone Encounter - Young Carson RN - 06/19/2024 1:57 PM EST [facility] reports: 1) Rec'vd Rx for Freestyle [...] or just do the 1 ml dose. [facility]01-15-2025 Instructions* Patient Instructions* Love Nguyen APRN.CNP - 06/19/2024 9:27 AM EST Have your labs drawn when you've been fasting for 10 hours-you can have water and black coffee Schedule with the eye doctor Schedule with neurology Begin metformin twice daily with meals Start the Trulicity shot once weekly Start the lisinopril once daily documented in this encounterPromedica Toledo Hospital01-15-2025 NoteHNO ID: [id number] Author: LOVE NGUYEN APRN.CNP Service: ? Author Type: Nurse Practitioner Type: [...] his medications because he just doesn't care. 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 For cholesterol. flash glucose sensor (HuixiaoerYLE LICO 14 DAY SENSOR) kit Use to scan blood sugars as directed. Replace every 2 weeks. fluticasone-salmeterol (ADVAIR DISKUS) 500-50 mcg/dose dsdv One inhalation twice a day. Rinse mouth out after use. flash glucose scanning reader ([employer] LICO 14 DAY READER) Use to check blood sugar 4 times daily. cholecalciferol, Vitamin D3, (VITAMIN D3) 1,250 mcg (50,000 unit) cap capsule Take 1 capsule by mouth one time a week. cetirizine (ZYRTEC) 10 mg tablet Take 1 tablet by mouth once daily as needed (for itching, sneezing or runny nose). blood sugar diagnostic (FREESTYLE TEST) test strip Use (more content not included)...[facility]01-15-2025 History of Present illness Narrative* PatrickChristaahCHEL.CHRIS - 06/19/2024 9:09 AM EST Chief Complaint Patient presents with: Physical: Follow up DM, pt reports he's not taking any medications on his med list for over a year,reports he needs consult to neuro for his seizure disorder HPI Victor Hugo Asif is a 38 year old male who presents here today for Above Complaints.. Lost his insurance for a while. Does have insurance now but he is not taking any of his medicationsbecause he just doesn't care. 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 Rinse mouthout after use. flash glucose scanning reader (FREESTYLE LICO 14 DAY READER) Use to check blood sugar 4 times daily. cholecalciferol, Vitamin D3, (VITAMIN D3) 1,250 mcg (50,000 unit) cap capsule Take 1 capsule by mouth one time a week. cetirizine (ZYRTEC) 10 mg tablet Take 1 tablet by mouth once daily as needed (for itching, sneezingor runny nose). blood sugar diagnostic (FREESTYLE TEST) [...] lb 11.3 oz) SpO2 99% BMI 34.15 kg/m General Appearance: Well appearing, alert, in no [...] with long-term current use of insulin (HCC) -ICD9: 250.60, 357.2, V58.67, ICD10: E11.40, Z79.4 - [...] V79.8, ICD10: Z13.39 - ANXIETY SCREENING Love Nguyen APRN.WARRANTY CLERK Greater than 50% of 40-minute visit spent face to face with patient in counseling and education. documented in this encounterPromedica [facility]09-03-2024 Telephone encounter Note * Telephone Encounter - Darlin Domingo LPN - 02/06/2024 1:02 PM EDT Appointment reminder sent. [facility]09-03-2024 Miscellaneous Notes* Telephone Encounter - Darlin Quinteros LPN - 02/06/2024 1:02 PM EDT Appointment reminder sent. documented in this encounterPromedica Toledo Hospital05-27-2024 Telephone encounter Note * Telephone Encounter - Ida Wilkes LPN - 10/30/2023 6:52 PM EDT Allergies reviewed: Yes ALLERGIES Allergen Reactions Baclofen Other: See Comments Migraines and lightheadedness Penicillin Hives Vicodin [Hydrocodon* Hives The following medications were verbally ordered and sent to [facility] [phone] Fraga on 10/30/2023 at 6:51 PM Requested Prescriptions Signed Prescriptions Disp Refills Blood-Glucose Sensor (FREESTYLE LICO 3 SENSOR) guillermo 6 Each 4 Sig: Apply new sensor every fourteen (14) days to upper arm. Patient/Family notified: Yes Ida Wilkes LPN [facility]05-27-2024 Miscellaneous Notes* Telephone Encounter - Ida Wilkes LPN - 10/30/2023 6:52 PM EDT Allergies reviewed: Yes ALLERGIES Allergen Reactions Baclofen Other: See Comments Migraines and lightheadedness Penicillin Hives Vicodin [Hydrocodon* Hives The following medications were verbally ordered and sent to [facility] [phone] Fraga on 10/30/2023 at 6:51 PM Requested Prescriptions Signed Prescriptions Disp Refills Blood-Glucose Sensor (FREESTYLE LICO 3 SENSOR) guillermo 6 Each 4 Sig: Apply new sensor every fourteen (14) days to upper arm. Patient/Family notified: Yes Ida Wilkes LPN * Telephone Encounter - Dianna Fraga MD - 10/30/2023 6:51 PM EDT The following approved medication requests have been transmitted electronically. Requested Prescriptions Signed Prescriptions Disp Refills Blood-Glucose Sensor (FREESTYLE LICO 3 SENSOR) guillermo 6 Each 4 Sig: Apply new sensor every fourteen (14) days to upper arm. Dianna Fraga MD * Telephone Encounter - Ida Wilkes LPN - 10/30/2023 6:36 PM EDT Patient calling with medication/refill: Patient/caregiver requesting refill of Freestyle Librea [address] [facility] pharmacy at [phone]. and Do you have enough medication to last until the office reopens? No. . Patient denies any new or worsening symptoms of which a provider is not aware:Yes . Allergies reviewed. 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 Ida Wilkes LPN documented in this encounterPromedica Toledo Hospital05-27-2024 Telephone encounter Note * Telephone Encounter - Dianna Fraga MD - 10/30/2023 6:51 PM EDT The following approved medication requests have been transmitted electronically. Requested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 Heart rate 150. Glucose 209 pulse ox 98%. He had 10 mg of Versed IM and on arrival to ED he had pinpoint pupil with no response to painful noxious stimulus. GCS 3. Patient did not had seizure in the last 3 years. 1. 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 I reviewed the MAR and do not see administration of Keppra. SOC neurologist was consulted and patient is Depakote ER 50 mg nightly. IV Ativan as needed for breakthrough seizure. 02/09: Serum potassium 3.4. Ammonia less than 10. Liver chemistry normal range except total protein 8.5. Tox screen positive of benzodiazepines. EEG ordered. Depakote ER 1500 mg nightly. Lorazepam 2 mg IV/IM for seizure more than 2 minutes or faeb-gr-zyny seizures without return to normal. Seizure precaution. Oxygen and suction as needed. No driving as per state law or operating machinery or any activity that puts additional harm to the patient or others. EEG is done but not reported as per rule it might take 24 hours for it to come out I do not think is going to change the dose of medication or change in management plan. Patient already seen by neurologist and want the patient on continued Depakote ER 1500 mg nightly and follow-up with the neurologist. Patient follows Dr. Pramod Owens in [facility] and advised to follow in 1 week. #Type 2 diabetes mellitus * on insulin degludec 25 units qam * ISS. Accuchecks ACHS. * also on metformin. Resume once patient's mentation has improved. * Humalog insulin dose increased to 10 mg 3 times daily. 02/09: Glucose is elevated about 250. #History of migraines: on sumatriptan prn #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: on nadolol and verapamil Verapamil also migraine prophylactic medications. 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 He wears braces on lower extremities. Patient on 2 NSAID medication, meloxicam andindomethacin. Advised to discontinue indomethacin. Patient also on orphenadrine for muscle spasm as needed. Follow with PCP in 1 week for meds reconciliation. DVT prophylaxis: lovenox Discharge medication reconciliation done. Discharge follow-up instructions completed. Discharge process discussed with the patient and all questions wereanswered to patient's satisfaction. Total time spent, exact 35 minutes on discharge meds reconciliation, examination, coordination of care with nurses and ancillary staff, review of imaging and blood test and discussion with the patient on follow-up instructions. Medications at Discharge Home Medications albuterol sulfate 90 mcg/actuation aerosol inhaler 2 puff inhalation Q6H PRN PRNSob &/Or Wheezing 10/22/14 cholecalciferol (vitamin D3) 25 mcg (1,000 unit) tablet 50,000 unit PO QWEEK replacement 10/22/14 divalproex 500 mg tablet,delayed release 1,500 mg PO QHS SEIZURES 10/22/14 metformin 1,000 mg tablet 1,000 mg PO BIDCM DIABETES 10/22/14 lisinopril 10 mg tablet 30 mg PO DAILY BLOOD PRESSURE 03/06/15 duloxetine 30 mg capsule,delayed release 30 mg PO DAILY DEPRESSION 02/29/16 triamcinolone acetonide 0.025 % topical cream 1 applic topical TID PRN PRN YEASTINFECTION 02/29/16 insulin degludec 200 unit/mL (3 mL) subcutaneous pen 39 unit SQ BREAKFAST DIABETES 09/10/17 nadolol 20 mg tablet 40 mg PO DAILY BLOOD PRESSURE 09/10/17 diclofenac sodium 1 % topical gel 1 applic TP 4X/DAY PRN BACK PAIN 01/11/18 doxepin 25 mg capsule 25 - 50 mg PO QHS PRN PRN Insomnia 01/11/18 fluoxetine 20 mg capsule 40 mg PO QHS DEPRESSION 01/11/18 nortriptyline 10 mg capsule 10 mg PO QHS SLEEP 01/11/18 nystatin 100,000 unit/gram topical ointment 1 applic topical 4X/DAY PRN GROIN 01/11/18 prochlorperazine maleate 10 mg tablet 10 mg PO Q8H PRN PRN Migraine Symptoms 01/11/18 risperidone 1 mg tablet 1 mg PO BREAKFAST SCHIZOPHRENIA 01/11/18 risperidone 2 mg tablet 2 mg PO QHS SHIZOPHRENIA 01/11/18 mometasone-formoterol HFA 200 mcg-5 mcg/actuation aerosol inhaler 2 puff IH BID BREATHING 02/17/18 verapamil 80 mg tablet 40 mg PO TID BLOOD PRESSURE 02/24/18 gabapentin 100 mg capsule 100 mg PO TID #42 caps 11/27/18 tizanidine 4 mg tablet 4 mg PO BID PRN PRN Spasms 04/19/19 acetaminophen 325 mg tablet 325 mg PO Q6H PRN PRN Headache 06/28/19 dicyclomine 10 mg capsule 10 mg PO TIDAC 06/28/19 indomethacin 25 mg capsule 25 mg PO TIDCM 06/28/19 meloxicam 15 mg tablet 15 mg PO DAILY 06/28/19 omeprazole 20 mg capsule,delayed release 20 mg PO BID 06/28/19 sumatriptan succinate 100 mg tablet 100 mg PO BID PRN Migraine Symptoms 06/28/19 ondansetron 4 mg disintegrating tablet 4 mg PO Q8H PRN PRN Nausea #10 tabs 03/09/20 orphenadrine citrate 100 mg tablet,extended release 100 mg PO BID PRN spasm #7 tabs 07/14/21 ondansetron 4 mg disintegrating tablet 4 mg PO Q6H PRN nausea and vomiting #14 tabs 12/18/21 galcanezumab-gnlm 120 mg/mL subcutaneous syringe (Emgality) 120 mg subcut QMONTHmigraines 02/08/23 semaglutide 0.25 mg or 0.5 mg (2 mg/3 mL) subcutaneous pen injector (Ozempic) 0.25 mg subcut QWEEK diabetes 02/08/23 cetirizine 10 mg capsule 10 mg PO DAILY PRN allergy 30 days #0 caps 02/09/23 insulin aspart U-100 100 unit/mL (3 mL) subcutaneous pen 10 unit (0.1 mL) subcutTIDCM DIABETES #15 mL 02/09/23 Physical Exam Narrative Please see exam finding that was done earlier today. Weight / BMI Weight Weight: 220 lb Body Mass Index (BMI) 36.6 ABG / Lab / Microbiology Data 02/09/23 05:27 02/09/23 05:27 Laboratory: Laboratory Results - last 24 hr 02/08/23 12:05: Total Bilirubin 0.60, Direct Bilirubin 0.17, AST 32, ALT 27, Alkaline Phosphatase 73, Total Protein 8.5 H, Albumin 3.7, Globulin 4.8 H 02/08/23 18:23: POC Glucose 243 H 02/08/23 19:23: Ammonia < 10.0 L 02/08/23 20:15: Urine Opiates Screen NEGATIVE, Urine Methadone Screen NEGATIVE, Ur Barbiturates Screen NEGATIVE, Ur Phencyclidine Scrn NEGATIVE, Ur AmphetaminesScreen NEGATIVE, MDMA (Ecstasy) Screen NEGATIVE, U Benzodiazepines Scrn POSITIVEH, Urine Cocaine Screen NEGATIVE, U Cannabinoids Screen NEGATIVE, Ur Drug ScreenComment 02/09/23 05:27: WBC 5.7, RBC 4.84, Hgb 12.8 L, Hct 40.3, MCV 83.3, MCH 26.4 L, MCHC 31.8 L, RDW Std Deviation 37.2, RDW Coeff of Ferny 12.2, Plt Count 230, MPV 11.2, Immature Gran % (Auto) 0.300, Neut % (Auto) 49.6, Lymph % (Auto) 39.0, Davison % (Auto) 7.9, Eos % (Auto) 2.3, Baso % (Auto) 0.9, Absolute Neuts (auto) 2.8, Absolute Lymphs (auto) 2.23, Nucleated RBC % 0, Sodium 137, Potassium 3.4 L, Chloride 106, Carbon Dioxide 27.0, Anion Gap 4 L, BUN 12, Creatinine 0.84, Estim Creat Clear Calc 102.70, Est GFR (MDRD) Af Amer 131, Est GFR (MDRD) Non-Af108, BUN/Creatinine Ratio 14.3, Glucose 174 H, Calcium 8.8 D/C Instructions Discharge Diet: 1800 Calorie Control Diet and 2000 mg Sodium Diet Weight Bearing Status: Weight bearing as tolerated Call your doctor if you observe: Fever of 101 or Higher, Coldness, Increased Pain, Numbness or Tingling, Change in Color, Inability to urinate, Inability to have a bowel movement, Shortness of breath, Dizziness, Fainting spells, Swellingin the ankles, Chest pain, Prolonged hiccupping, Increased palpitations (irregular heartbeat) and Calf discomfort When: IN 2 WEEKS Meaningful Use Info Meaningful Use Diagnoses (Choose all that apply): None applicable Discharge Plan Admission Admit Date/Time: 02/08/23 14:15 Primary Reason for Your Visit: SEIZURE Breakthrough Attending Provider: Tyler Faulkner Primary Care Provider: Ranjit Azar Consulting Providers: Hoa Haskins Instructions Additional Instructions / Restrictions: Patient follows [facility] neurologist Dr. Yvette Owens. Patient encouraged to follow-up with neurologist in 1 week. EEG report pending but is not going to make change in the management. Patient wants to go home. Discharge Orders/Prescriptions Prescriptions: Continued divalproex 500 MG tablet,delayed release (DR/EC) 1,500 mg PO QHS Patient Comments: seizure metformin 1,000 MG tablet 1,000 mg PO BIDCM Patient Comments: diabetic albuterol sulfate 1 PUFF inhaler 2 puff inhalation Q6H PRN PRN (Reason: Sob &/Or Wheezing) Patient Comments: breathing cholecalciferol (vitamin D3) 1,000 UNIT tablet 50,000 unit PO QWEEK Patient Comments: supplement, takes on lisinopril 10 MG tablet 30 mg PO DAILY Patient Comments: blood pressure triamcinolone acetonide 1 APPLIC cream 1 applic topical TID PRN PRN (Reason: YEAST INFECTION) duloxetine 30 MG capsule 30 mg PO DAILY nadolol 20 MG tablet 40 mg PO DAILY insulin degludec 200 UNIT/ML insulin pen 39 unit SQ BREAKFAST nystatin 1 APPLIC ointment 1 applic topical 4X/DAY PRN (Reason: GROIN) doxepin 25 MG capsule 25 - 50 mg PO QHS PRN PRN (Reason: Insomnia) prochlorperazine maleate 10 MG tablet 10 mg PO Q8H PRN PRN (Reason: Migraine Symptoms) risperidone 2 MG tablet 2 mg PO QHS nortriptyline 10 MG capsule 10 mg PO QHS fluoxetine 20 MG capsule 40 mg PO QHS risperidone 1 MG tablet 1 mg PO BREAKFAST diclofenac sodium 100 GM gel 1 applic TP 4X/DAY PRN (Reason: BACK PAIN) mometasone-formoterol 8.8 GM HFA aerosol inhaler 2 puff IH BID verapamil 80 MG tablet 40 mg PO TID gabapentin 100 MG capsule 100 mg PO TID Qty: 42 0RF Patient Comments: NEUROPATHIC PAIN tizanidine 4 MG tablet 4 mg PO BID PRN PRN (Reason: Spasms) acetaminophen 325 MG tablet 325 mg PO Q6H PRN PRN (Reason: Headache) sumatriptan succinate 100 MG tablet 100 mg PO BID PRN (Reason: Migraine Symptoms) meloxicam 15 MG tablet 15 mg PO DAILY omeprazole 20 MG capsule,delayed release(DR/EC) 20 mg PO BID dicyclomine 10 MG capsule 10 mg PO TIDAC Patient Comments: BELLY DISCOMFORT ondansetron 4 MG tablet 4 mg PO Q8H PRN PRN (Reason: Nausea) Qty: 10 0RF orphenadrine citrate 100 mg tablet extended release 100 mg PO BID PRN (Reason: spasm) Qty: 7 0RF ondansetron 4 mg tablet,disintegrating 4 mg PO Q6H PRN (Reason: nausea and vomiting) Qty: 14 0RF Rx Instructions: to take as needed if doxy causes nausea which was listed. Ozempic 0.25 mg or 0.5 mg (2 mg/3 mL) pen injector 0.25 mg subcut QWEEK Rx Instructions: for 4 weeks Emgality Syringe 120 mg/mL syringe 120 mg SUBCUT QMONTH Changed insulin aspart U-100 100 UNITS/ML insulin pen 10 unit subcut TIDCM Qty: 15 2RF Patient Comments: diabetic Rx Instructions: Hold if glucose less than 130 mg/dl cetirizine 10 MG capsule 10 mg PO DAILY PRN (Reason: allergy) 30 Days Qty: 0 0RF Held indomethacin 25 MG capsule 25 mg PO TIDCM Hold Instructions: Check with PCP as patient is on 2 NSAIDS Referrals / Follow Up: Ranjit Azar DO [Primary Care Provider] - Disposition Disposition (needs filled in before D/C Order can be placed): Home, Self Care Charges/Coding Visit Charges Inpatient E&M: 29049 Disch Hosp >30min 02/09/23 170 <Electronically signed by Tyler Faulkner MD> Cosigner Signature (if applicable): CC: Dr. Ranjit Azar DO; Dr. Tyler Faulkner MD~ Signed ADDENDUM by Dr. Tyler Faulkner MD on 02/09/23 at 1705 Addendum Please cancel the billing charge of progress note of today patient was admitted as inpatient with anticipation that he will need more than2 midnights but was discharged because of sooner recovery than expected at timeof admission. Patient family wants him to take home. Patient was seen by neurologist and did not had any further seizures during hospital course. 02/09/231704<Electronically signed by Tyler Faulkner MD> Cosigner Signature (if applicable): cc: Dr. Ranjit Azar DO; Dr. Tyler Faulkner MD ~* Signed [facility] Work Phone: 1(820) 471-187509-07-2023 Discharge summary Author Tyler Faulkner [facility] February 09, 2023 4:59pm Note Date/Time February 09, 2023 4:52pm [facility] Medical Records Department [address] [place] [address] Instructions for Home/Discharge Instructions 02/09/23 1040 MR#: [id number] Acct: [id number] Name: VICTOR HUGO ASIF Rep #:[id number] : 1985 37 From: Tyler Peterson PCP: Dr. Ranjit Azar, DO Status:AD M IN Discharge Instructions Diet Discharge Diet: 1800 Calorie Control Diet and 2000 mg Sodium Diet Activity Discharge Activity: Return to Normal Activity Weight Bearing Status: Weight bearing as tolerated Dressing / Incision Call your doctor if you observe: Fever of 101 or Higher, Coldness, Increased Pain, Numbness or Tingling, Change in Color, Inability to urinate, Inability to have a bowel movement, Shortness of breath, Dizziness, Fainting spells, Swellingin the ankles, Chest pain, Prolonged hiccupping, Increased palpitations (irregular heartbeat) and Calf discomfort Follow Up Care When: IN 2 WEEKS Test Results: Test results from this visit will be discussed in further detail at your follow- up appointment, if applicable. Discharge Plan Admission Admit Date/Time: 02/08/23 14:15 Primary Reason for Your Visit: SEIZURE Breakthrough Attending Provider: Tyler Faulkner Primary Care Provider: Ranjit Azar Consulting Providers: Hoa Haskins Instructions Additional Instructions / Restrictions: Patient follows [facility] neurologist Dr. Yvette Owens. Patient encouraged to follow-up with neurologist in 1 week. EEG report pending but is not going to make change in the management. Patient wants to go home. Discharge Orders/Prescriptions Prescriptions: Continued divalproex 500 MG tablet,delayed release (DR/EC) 1,500 mg PO QHS Patient Comments: seizure metformin 1,000 MG tablet 1,000 mg PO BIDCM Patient Comments: diabetic albuterol sulfate 1 PUFF inhaler 2 puff inhalation Q6H PRN PRN (Reason: Sob &/Or Wheezing) Patient Comments: breathing cholecalciferol (vitamin D3) 1,000 UNIT tablet 50,000 unit PO QWEEK Patient Comments: supplement, takes on lisinopril 10 MG tablet 30 mg PO DAILY Patient Comments: blood pressure triamcinolone acetonide 1 APPLIC cream 1 applic topical TID PRN PRN (Reason: YEAST INFECTION) duloxetine 30 MG capsule 30 mg PO DAILY nadolol 20 MG tablet 40 mg PO DAILY insulin degludec 200 UNIT/ML insulin pen 39 unit SQ BREAKFAST nystatin 1 APPLIC ointment 1 applic topical 4X/DAY PRN (Reason: GROIN) doxepin 25 MG capsule 25 - 50 mg PO QHS PRN PRN (Reason: Insomnia) prochlorperazine maleate 10 MG tablet 10 mg PO Q8H PRN PRN (Reason: Migraine Symptoms) risperidone 2 MG tablet 2 mg PO QHS nortriptyline 10 MG capsule 10 mg PO QHS fluoxetine 20 MG capsule 40 mg PO QHS risperidone 1 MG tablet 1 mg PO BREAKFAST diclofenac sodium 100 GM gel 1 applic TP 4X/DAY PRN (Reason: BACK PAIN) mometasone-formoterol 8.8 GM HFA aerosol inhaler 2 puff IH BID verapamil 80 MG tablet 40 mg PO TID gabapentin 100 MG capsule 100 mg PO TID Qty: 42 0RF Patient Comments: NEUROPATHIC PAIN tizanidine 4 MG tablet 4 mg PO BID PRN PRN (Reason: Spasms) acetaminophen 325 MG tablet 325 mg PO Q6H PRN PRN (Reason: Headache) sumatriptan succinate 100 MG tablet 100 mg PO BID PRN (Reason: Migraine Symptoms) meloxicam 15 MG tablet 15 mg PO DAILY omeprazole 20 MG capsule,delayed release(DR/EC) 20 mg PO BID dicyclomine 10 MG capsule 10 mg PO TIDAC Patient Comments: BELLY DISCOMFORT ondansetron 4 MG tablet 4 mg PO Q8H PRN PRN (Reason: Nausea) Qty: 10 0RF orphenadrine citrate 100 mg tablet extended release 100 mg PO BID PRN (Reason: spasm) Qty: 7 0RF ondansetron 4 mg tablet,disintegrating 4 mg PO Q6H PRN (Reason: nausea and vomiting) Qty: 14 0RF Rx Instructions: to take as needed if doxy causes nausea which was listed. Ozempic 0.25 mg or 0.5 mg (2 mg/3 mL) pen injector 0.25 mg subcut QWEEK Rx Instructions: for 4 weeks Emgality Syringe 120 mg/mL syringe 120 mg SUBCUT QMONTH Changed insulin aspart U-100 100 UNITS/ML insulin pen 10 unit subcut TIDCM Qty: 15 2RF Patient Comments: diabetic Rx Instructions: Hold if glucose less than 130 mg/dl cetirizine 10 MG capsule 10 mg PO DAILY PRN (Reason: allergy) 30 Days Qty: 0 0RF Held indomethacin 25 MG capsule 25 mg PO TIDCM Hold Instructions: Check with PCP as patient is on 2 NSAIDS Referrals / Follow Up: Ranjit Azar DO [Primary Care Provider] - Disposition Disposition (needs filled in before D/C Order can be placed): Home, Self Care 02/09/23 1659<Electronically signed by Tyler Faulkner MD>Tyler Faulkner MD CC: Dr. Ranjit Azar DO; Dr. Hoa Haskins MD ~ Signed [facility] Work Phone: [phone]) 434-908209-07-2023 Progress note Author [facility] February 09, 2023 11:58am Note Date/Time February 09, 2023 8:50am [facility] Medical Records Department [address] [place] [address] Progress Note - Hospitalist 02/09/2342 MR#: [id number] Acct: [id number] Name: VICTOR HUGO ASIF Rep #:[id number] : 1985 37 From: Tyler Peterson PCP: Dr. Ranjit Azar DO Status:AD M IN Location: [place] [address] Objective Data Objective Data Vital Signs: Vital Signs Temp Pulse Resp BP Pulse Ox O2 Del Method O2 Flow Rate 97.7 F L 76 16 138/80 H 99 Room Air 2 02/09/23 04:50 02/09/23 04:50 02/09/23 04:50 02/09/23 04:50 02/09/23 04:50 02/09/23 05:45 02/08/23 12:47 Oxygen Flow Rate (L/min) 2 Oxygen Delivery Method Room Air Weight: 220 lb Body Mass Index (BMI) 36.6 Intake & Output: Intake and Output for Last 24 Hours 02/07/23 02/08/23 02/09/23 23:59 23:59 23:59 Intake Total 800 / 800 1160.42 / 1160.42 Output Total 1000 / 1000 450 / 450 Balance -200 / -200 710.42 / 710.42 Lab / Micro Data 02/09/23 05:27 02/09/23 05:27 Labs: Laboratory Results - last 24 hr 02/08/23 12:05: WBC 6.8, RBC 5.40, Hgb 14.2, Hct 43.8, MCV 81.1, MCH 26.3 L, MCHC 32.4, RDW Std Deviation 36.8, RDW Coeff of Ferny 12.4, Plt Count 283, MPV 11.6, Immature Gran % (Auto) 0.400, Neut % (Auto) 54.5, Lymph % (Auto) 38.5, Davison % (Auto) 5.2, Eos % (Auto) 0.7, Baso % (Auto) 0.7, Absolute Neuts (auto) 3.7, Absolute Lymphs (auto) 2.60, Nucleated RBC % 0, Sodium 136, Potassium 3.7, Chloride 104, Carbon Dioxide 23.0, Anion Gap 9, BUN 15, Creatinine 1.49 H, EstimCreat Clear Calc 57.90, Est GFR (MDRD) Af Amer 67, Est GFR (MDRD) Non-Af 56 L, BUN/Creatinine Ratio 10.1, Glucose 197 H, Calcium 9.9, Total Bilirubin 0.60, Direct Bilirubin 0.17, AST 32, ALT 27, Alkaline Phosphatase 73, Total Protein 8.5 H, Albumin 3.7, Globulin 4.8 H, Valproic Acid 89 02/08/23 18:23: POC Glucose 243 H 02/08/23 19:23: Ammonia < 10.0 L 02/08/23 20:15: Urine Opiates Screen NEGATIVE, Urine Methadone Screen NEGATIVE, Ur Barbiturates Screen NEGATIVE, Ur Phencyclidine Scrn NEGATIVE, Ur AmphetaminesScreen NEGATIVE, MDMA (Ecstasy) Screen NEGATIVE, U Benzodiazepines Scrn POSITIVEH, Urine Cocaine Screen NEGATIVE, U Cannabinoids Screen NEGATIVE, Ur Drug ScreenComment 02/09/23 05:27: WBC 5.7, RBC 4.84, Hgb 12.8 L, Hct 40.3, MCV 83.3, MCH 26.4 L, MCHC 31.8 L, RDW Std Deviation 37.2, RDW Coeff of Ferny 12.2, Plt Count 230, MPV 11.2, Immature Gran % (Auto) 0.300, Neut % (Auto) 49.6, Lymph % (Auto) 39.0, Davison % (Auto) 7.9, Eos % (Auto) 2.3, Baso % (Auto) 0.9, Absolute Neuts (auto) 2.8, Absolute Lymphs (auto) 2.23, Nucleated RBC % 0, Sodium 137, Potassium 3.4 L,Chloride 106, Carbon Dioxide 27.0, Anion Gap 4 L, BUN 12, Creatinine 0.84, EstimCreat Clear Calc 102.70, Est GFR (MDRD) Af Amer 131, Est GFR (MDRD) Non-Af 108, BUN/Creatinine Ratio 14.3, Glucose 174 H, Calcium 8.8 Radiography Diagnostic Testing: Radiology Impression Brain CT 02/08/23 12:23 IMPRESSION: Stable prominence of the occipital horns of the lateral ventricles bilaterally. 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 Heart rate 150. Glucose 209 pulse ox 98%. He had 10 mg of Versed IM and on arrival to ED he had pinpoint pupil with no response to painful noxious stimulus. GCS 3. Patient did not had seizure in the last 3 years. 1. 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 I reviewed the MAR and do not see administration of Keppra. SOC neurologist was consulted and patient is Depakote ER 50 mg nightly. IV Ativan as needed for breakthrough seizure. 02/09: Serum potassium 3.4. Ammonia less than 10. Liver chemistry normal range except total protein 8.5. Tox screen positive of benzodiazepines. EEG ordered. Depakote ER 1500 mg nightly. Lorazepam 2 mg IV/IM for seizure more than 2 minutes or [id number] seizures without return to normal. Seizure precaution. Oxygen and suction as needed. No driving as per state law or operating machinery or any activity that puts additional harm to the patient or others. Is done but not reported. #Type 2 diabetes mellitus * on insulin degludec 25 units qam * ISS. Accuchecks ACHS. * also on metformin. Resume once patient's mentation has improved. * Humalog insulin dose increased to 10 mg 3 times daily. 02/09: Glucose is elevated about 250. #History of migraines: on sumatriptan prn #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: on nadolol and verapamil Verapamil also migraine prophylactic medications. DVT prophylaxis: lovenox Charges/Coding Visit Charges Inpatient E&M: 60935 [facility] [[email or web address] Hosp L2 02/09/23 1152 <Electronically signed by Tyler Faulkner MD> Cosigner Signature (if applicable): CC: ~ Signed [facility] Work Phone: [phone]) 652-304409-07-2023 Evaluation note* Diagnosis Onset Date Resolution Status Breakthrough seizure acute Elevated serum creatinine ac [place] Generalized tonic-clonic seizure acute [place] coma scale score 3-8 , at arrival to emergency department acute Sinus tachycardia seen on gambling monitor acute HTN (hypertension) chronic [facility] Work Phone: [phone]) 839-832809-06-2023 Discharge summary Author Jah Santiago [facility] February 08, 2023 1:56pm Note Date/Time February 08, 2023 12:31pm [facility] Medical Records Department [address] [place] [address] Emergency Department Summary 02/08/23 MR#: [id number] Acct: [id number] Name: VICTOR HUGO ASIF Rep #:[id number] : 1985 37 From: Jah Santiago MD PCP: Dr. Ranjit Azar, Status:RE G ER Location: ED HPI History of Present Illness Chief Complaint: Seizure Detail of Chief Complaint: Generalized tonic-clonic seizure Informant: spouse/S.O. and EMS Onset/Context/Timing Onset: Today (Duration 5 to 10 minutes, patient received 10 mg of Versed) Context: Sudden Onset Timing: Intermittent Quality: Generalized tonic-clonic Location: Patient was at work Current Severity: Patient presently has a GCS of 3 Maximum Severity: Unknown Worsened by: Unable to determine Relieved by: Versed Associated Symptoms Associated Symptoms: Unknown Narrative Narrative: Patient is a 37-year-old male with history of type 2 diabetes supplemented with insulin, seizure disorder and GERD who presents after seizure at work. He received 10 mg of Versed IM. Upon arrival he has a GCS of 3. He has pinpoint pupils. He does not respond to painful or noxious stimuli. Prior similar symptoms: Yes (According to his significant other/ he has not had a seizure in 2 years) Recent Illness/Hospitalization: Yes (For minor complaint) [facility] Medical History Acute cholecystitis Acute gangrenous cholecystitis Asthma Cholecystitis Depression DM2 (diabetes mellitus, type 2) HTN (hypertension) Schizoaffective disorder Seizure SOB (shortness of breath) Home Medications albuterol sulfate 90 mcg/actuation aerosol inhaler 2 puff inhalation Q6H PRN PRNSob &/Or Wheezing 10/22/14 [History Last Taken 04/19/19 08:00] cholecalciferol (vitamin D3) 25 mcg (1,000 unit) tablet 50,000 unit PO QWEEK replacement 10/22/14 [History Last Taken 04/19/19] divalproex 500 mg tablet,delayed release 1,500 mg PO QHS SEIZURES 10/22/14 [History Last Taken 04/18/19 22:30] metformin 1,000 mg tablet 1,000 mg PO BIDCM DIABETES 10/22/14 [History Last Taken 04/19/19 08:00] lisinopril 10 mg tablet 30 mg PO DAILY BLOOD PRESSURE 03/06/15 [History Last Taken 04/18/19] insulin aspart U-100 100 unit/mL (3 mL) subcutaneous pen 6 units subcut TIDCM DIABETES 11/12/15 [History Last Taken 04/19/19 08:00] duloxetine 30 mg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 be deferred for now. He is a diabetic Ithought about checking his blood sugars however he seems to have a good handle on his blood sugars in talking to him and I do not believe CBC or PGT is warranted at this time. He appears well and I will discharge in stable condition. Discharge Plan Triage Chief Complaint: Cough ED Provider: Shakir Yates Dx/Rx/DC Orders Clinical Impression: Bronchitis, Cough Instructions: ED Upper Resp Infec Abx Tx Prescriptions: New doxycycline hyclate 100 mg capsule 100 mg PO BID Qty: 20 0RF No Action divalproex 500 MG tablet,delayed release (DR/EC) 1,500 mg PO QHS Label Comments: seizure metformin 1,000 MG tablet 1,000 mg PO BIDCM Label Comments: diabetic albuterol sulfate 1 PUFF inhaler 2 puff inhalation Q6H PRN PRN (Reason: Sob &/Or Wheezing) Label Comments: breathing cholecalciferol (vitamin D3) 1,000 UNIT tablet 50,000 unit PO QWEEK Label Comments: supplement lisinopril 10 MG tablet 30 mg PO DAILY Label Comments: blood pressure insulin aspart U-100 100 UNITS/ML insulin pen 6 units subcut TIDCM Label Comments: diabetic triamcinolone acetonide 1 APPLIC cream 1 applic topical TID PRN PRN (Reason: YEAST INFECTION) duloxetine 30 MG capsule 30 mg PO DAILY nadolol 20 MG tablet 40 mg PO DAILY insulin degludec 200 UNIT/ML insulin pen 25 unit SQ BREAKFAST nystatin 1 APPLIC ointment 1 applic topical 4X/DAY PRN (Reason: GROIN) doxepin 25 MG capsule 25 - 50 mg PO QHS PRN PRN (Reason: Insomnia) prochlorperazine maleate 10 MG tablet 10 mg PO Q8H PRN PRN (Reason: Migraine Symptoms) risperidone 2 MG tablet 2 mg PO QHS nortriptyline 10 MG capsule 10 mg PO QHS fluoxetine 20 MG capsule 40 mg PO DAILY risperidone 1 MG tablet 1 mg PO BREAKFAST diclofenac sodium 100 GM gel 1 applic TP 4X/DAY PRN (Reason: BACK PAIN) mometasone-formoterol 8.8 GM HFA aerosol inhaler 2 puff IH BID verapamil 80 MG tablet 40 mg PO TID gabapentin 100 MG capsule 100 mg PO TID Qty: 42 0RF Label Comments: NEUROPATHIC PAIN ondansetron 4 MG tablet 4 mg PO Q6H PRN PRN (Reason: Nausea) Qty: 10 0RF promethazine 25 MG tablet 25 mg PO Q6H PRN PRN (Reason: Nausea) Qty: 10 0RF tizanidine 4 MG tablet 4 mg PO BID PRN PRN (Reason: Spasms) acetaminophen 325 MG tablet 325 mg PO Q6H PRN PRN (Reason: Headache) sumatriptan succinate 100 MG tablet 100 mg PO BID PRN (Reason: Migraine Symptoms) meloxicam 15 MG tablet 15 mg PO DAILY indomethacin 25 MG capsule 25 mg PO TIDCM omeprazole 20 MG capsule,delayed release(DR/EC) 20 mg PO BID cetirizine 10 MG capsule 10 mg PO DAILY food supplemt, lactose-reduced 237 ML liquid 237 ml PO BID dicyclomine 10 MG capsule 10 mg PO TIDAC Label Comments: BELLY DISCOMFORT ondansetron 4 MG tablet 4 mg PO Q8H PRN PRN (Reason: Nausea) Qty: 10 0RF naproxen 500 MG tablet 500 mg PO BID Qty: 14 0RF orphenadrine citrate 100 mg tablet extended release 100 mg PO BID PRN (Reason: spasm) Qty: 7 0RF doxycycline hyclate 100 mg tablet 100 mg PO BID Qty: 14 0RF ondansetron 4 mg tablet,disintegrating 4 mg PO Q6H PRN (Reason: nausea and vomiting) Qty: 14 0RF Rx Instructions: to take as needed if doxy causes nausea which was listed. naproxen 500 mg tablet 500 mg PO BID Qty: 14 0RF doxycycline hyclate 100 mg tablet 100 mg PO BID Qty: 20 0RF Primary Care Provider: Ranjit Azar Referrals: Ranjit Azar DO [Primary Care Provider] - 3-5 Days Disposition Disposition: Home, Self Care What to do if you have Problems For any increased pain, shortness of breath, bleeding, nausea or vomiting, chestpain, or any unexpected problems, contact your Primary Care Provider. Call [facility] ([phone]) or report to the closest Emergency Room. Call 911 if necessary. 08/16/22 0953 <Electronically signed by Shakir Yates MD> Cosigner Signature (if applicable): CC: Dr. Ranjit Azar DO ~ Signed [facility] Work Phone: Discharge summary Author Javid Winter [facility] Note Date/Time January 21, 2025 1: 34pm [facility] Medical Records Department [address] [place] [address] Emergency Department Summary 01/21/25 MR#: [id number] Acct: [id number] Name: VICTOR HUGO ASIF Rep #:[id number] : 1985 39 From: Javid Winter MD PCP: Dr. Ranjit Azar DO Status:RE G ER Location: ED HPI History of Present Illness Chief Complaint: Numb/Ting Narrative Narrative: 39-year-old male with past medical history of type 2 diabetes but not on medication, presents with numbness and tingling of his hands bilaterally as wellas his feet bilaterally that has had for 2 to 3 days. He denies any headache, no exacerbating or alleviating factors. He states he does see a neurologist because of his type 2 diabetes, but has been without medication for at least a year. He states that his paresthesias and numbness of his hands and feet have been constant over the last few days, but worsened today when he was at work. No recent nausea or vomiting, no other symptoms. [facility] Medical History Acute gangrenous cholecystitis Acute cholecystitis DM2 (diabetes mellitus, type 2) Schizoaffective disorder Cholecystitis Depression Seizure SOB (shortness of breath) Asthma HTN (hypertension) Allergy/AdvReac Type Severity Reaction Status Date / Time hydrocodone bitartrate (From Allergy Hives Verified 03/01/24 09:17 Vicodin) acetaminophen AdvReac Nausea/hive Verified 03/01/24 09:17 s baclofen AdvReac IT MAKES Verified 03/01/24 09:17 HIM LIGHTHEADED AND SICK lactose AdvReac Nausea Verified 03/01/24 09:17 Penicillins AdvReac Nausea Verified 03/01/24 09:17 Surgical History History of laparoscopic cholecystectomy (~04/20/19) Social History household members: spouse and family current occupational status: employed Smoking Status: Former smoker ROS ROS ED ROS Narrative Review of systems positive for numbness and tingling of bilateral hands and bilateral feet for the last 3 days. No headache or neck pain. No fevers or chills, no nausea or vomiting. No exacerbating or alleviating factors. EXAM Physical Exam Narrative Exam Narrative: Afebrile. Vital signs noted. Nontoxic-appearing. Cardiovascular examination reveals mild tachycardia. Lungs are clear to auscultation bilaterally. Abdomenis soft and nontender with without guarding or rebound. Positive bowel sounds. Neurological examination is nonfocal, nonlateralizing. Moves all extremities. Awake, alert, interactive. Const Vital Signs: 01/21/25 11:46 01/21/25 12:46 01/21/25 13:00 Temperature 98.6 F Temperature Source Oral Pulse Rate 124 H 98 97 Respiratory Rate 16 24 H 24 H Blood Pressure 147/103 H 144/102 H 137/88 H Blood Pressure Mean 117 116 104 Pulse Ox 98 97 98 Oxygen Delivery Method Room Air Room Air MDM MDM MDM Narrative Medical decision making narrative: The differential diagnosis includes but not limited to dehydration versus other electrolyte imbalance versus paresthesias versus hyperventilation. I doubt TIA or stroke and I do not feel stroke team is indicated because his symptoms are bilateral. CT of the brain radiology report was reviewed and there are chronic changes but no acute intracranial pathology. I reviewed his laboratory work and he has a normal white count of 6.1 with hemoglobin 13.7, hematocrit 40.6, platelet count 270. Electrolyte panel shows normal sodium of 134 with potassium 4.5, CO2 of 23.7, BUN 13 and creatinine slightly elevated at 1.42 but when compared to priorlabs, he has had elevation in his creatinine previously intermittently. While glucose is elevated at 440, he has a normal anion gap of 11 so I doubt diabetic ketoacidosis. His magnesium level is normal at 2.0. He was told that he may need to be started on medications for his hyperglycemia. After half a liter of IV fluids, his heart rate is currently in the 90s. Repeat examination shows himresting comfortably. He may be having more of a diabetic neuropathy. At this point in time, I do feel he can be discharged to follow-up with his primary careprovider and his neurologist. I do not feel he requires admission. Return instructions to the emergency department were reviewed. Disposition is discharged home in stable condition. History & Record Review Discussion w/independent historian: Patient Additional record(s) reviewed:: Prior labs Lab Data Attestation: I reviewed the patient's lab results. Labs: Laboratory Results - last 24 hr 01/21/25 12:25 WBC 6.1 RBC 5.12 Hgb 13.7 Hct 40.6 MCV 79.3 L MCH 26.8 L MCHC 33.7 RDW Std Deviation 33.7 L RDW Coeff of Ferny 11.7 Plt Count 270 MPV 11.1 Immature Gran % (Auto) 0.300 Neut % (Auto) 62.8 Lymph % (Auto) 28.4 Davison % (Auto) 7.4 Eos % (Auto) 0.3 Baso % (Auto) 0.8 Absolute Neuts (auto) 3.8 Absolute Lymphs (auto) 1.72 Nucleated RBC % 0 Sodium 134 Potassium 4.5 Chloride 99 Carbon Dioxide 23.7 Anion Gap 11 BUN 13 Creatinine 1.42 H Estim Creat Clear Calc 71.96 Est GFR (MDRD) Non-Af 64 BUN/Creatinine Ratio 9.2 L Glucose 440 H Calcium 9.8 Magnesium 2.0 Radiography Diagnostic Testing: Clinical Impression(s) from Imaging Studies Brain CT 01/21/25 12:15 IMPRESSION: There is a patent cavum, unchanged. There is dilation of the occipital horns of the right and left lateral ventricle, measuring 2.1 cm on the right, and 2.9 cm in the left, unchanged. No acute intracranial pathology. Reading Location: [facility] Discharge Plan Triage Chief Complaint: Numb/Ting ED Provider: Javid Winter Dx/Rx/DC Orders Clinical Impression: Paresthesias, Numbness and tingling in both hands, Numbness and tingling of both feet Instructions: ED Neuropathy, Peripheral, ED Paresthesia Primary Care Provider: Ranjit Azar Referrals: Care Physician,No Primary [Non-Staff] - Activity Restrictions/Additional Instructions: Follow-up with your primary care provider. You had elevated sugars today and may need to be started on medication again if your glucose/sugars are not controlled with diet and exercise. Return to the emergency department with new or worsening symptoms. Follow-up with your neurologist as well. Print Language: [place] Irish Disposition Disposition: Home, Self Care What to do if you have Problems For any increased pain, shortness of breath, bleeding, nausea or vomiting, chestpain, or any unexpected problems, contact your Primary Care Provider. Call [facility] ([phone]) or report to the closest Emergency Room. Call 911 if necessary. 01/21/25 1334 <Electronically signed by Javid Winter MD> Cosigner Signature (if applicable): CC: Dr. Ranjit Azar, DO ~ Signed [facility] Work Phone: Discharge summary Author Hoa [facility] Note Date/Time March 05, 2025 5: 16pm [facility] Medical Records Department [address] [place] [address] Instructions for Home/Discharge Instructions 03/05/251712 MR#: [id number] Acct: [id number] Name: VICTOR HUGO ASIF Rep #:[id number] : 1985 39 From: Hoa Haskins MD PCP: Dr. Ranjit Azar DO Status:AD M TERESA Discharge Instructions DC O2, CPAP, BIPAP needs Home O2 Discharge instructions: No Dressing / Incision Discharge Activity: Return to Normal Activity Weight Bearing Status: Weight bearing as tolerated Dressing / Incision Call your doctor if you observe: Fever of 101 or Higher, Shortness of breath, Dizziness and Chest pain Follow Up Care Test Results: Test results from this visit will be discussed in further detail at your follow- up appointment, if applicable. Discharge Plan Admission Admit Date/Time: 03/04/25 14:58 Primary Reason for Your Visit: chest pain Attending Provider: Hoa Haskins Primary Care Provider: Ranjit Azar Consulting Providers: Giovani Membreno Patient Instructions: ED Chest Pain, Noncardiac Discharge Orders/Prescriptions Prescriptions: New lisinopril 20 mg tablet 20 mg PO DAILY Qty: 30 2RF Discontinued lisinopril 10 mg tablet 10 mg PO DAILY Referrals / Follow Up: Ranjit Azar DO [Primary Care Provider, Medical] - Within 1 Week Disposition Disposition (needs filled in before D/C Order can be placed): Home, Self Care 03/05/251715<Electronically signed by Hoa Haskins MD>Hoa Haskins MD CC: Dr. Giovani Membreno DO; Dr. Ranjit Azar DO ~ Signed [facility] Work Phone: Discharge summary [facility] Note Date/Time March 05, 2025 5: 24pm [facility] Medical Records Department [address] [place] [address] Discharge Summary 03/05/251715 MR#: [id number] Acct: [id number] Name: VICTOR HUGO ASIF Rep #:[id number] : 1985 39 From: Hoa Haskins MD PCP: Dr. Ranjit Azar DO Status:AD M TERESA Location: [place] [id number] Providers Date of Admission: 03/04/25 Date of Discharge: 03/05/25 Primary Care Physician: Dr. Ranjit Azar DO Reason For Visit: CHEST PAIN Diagnosis Discharge Diagnosis (1) Chest pain: Status: Inactive Code(s): R07.9 - Chest pain, unspecified Medications at Discharge Home Medications lisinopril 20 mg tablet 20 mg PO DAILY #30 tabs 03/05/25 Hospital Course Operations None Procedures 2-D Echocardiogram and Stress test Summary of Care Provided Minutes Spent on Discharge: 37 Hospital Course: Patient is a 39-year-old male with past medical history as outlined was admittedthrough the ED on 03/04/2025 with complaint of chest pain. Patient said he had been having ongoing chest pain and heaviness in the center of his chest for the past 3 days. 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 The pain did not improve with rest though it worsened slightly with exertion. He denied any other complaints. He denied any nicotine dependence. He also denied any familyhistory of heart disease. Labs were essentially unremarkable and troponins x 2 were negative. EKG showed no acute ST changes and chest x-ray showed no acute cardiopulmonary pathology. He was admitted to be managed for chest pain to ruleout ACS. He had a stress test on 03/05/2025 which was negative. 2D echo also showed EF of 60% with normal left ventricular systolic function and stage I diastolic dysfunction and structurally normal valves. He remained stable and was discharged home on 03/13/2025. Since his blood pressure was still elevated his home dose of lisinopril 10 mg daily was increased to 20 mg daily. He is to follow-up with his PCP within 1 to 2 weeks. Patient seen and examined prior to discharge. He had no complaints and had an uneventful night. Review of systems otherwise negative. Labs and vitals reviewed. Home medication reviewed and reconciled. Physical Exam Const alert, oriented x3 and no apparent distress General Appearance: cooperative and comfortable Orientation / Consciousness: awake Exam Limitations: no limitations HEENT normocephalic, head/scalp atraumatic, hearing grossly normal bilaterally and moist oral mucous membranes Mouth: oral and palatal mucosa normal Eyes EOMs intact bilaterally and conjunctivae normal Neck supple and no JVD Resp normal respiratory effort, no use of accessory muscles and clear to auscultationbilaterally Cardio regular rate, regular rhythm, S1 normal heart sound, S2 normal heart sound and no murmurs GI normal to inspection, nondistended, normoactive bowel sounds, soft to palpation,non-tender and non-distended Extremity normal to inspection and full ROM Skin no rashes or lesions noted Neuro oriented x3, CN's II-XII intact bilaterally, moves all extremities and no focal motor deficits Sensorium / Orientation: awake and alert Motor Exam: strength 5/5 throughout Psych affect normal Weight / BMI Weight Weight: 201 lb 14.4 oz Body Mass Index (BMI) 32.5 ABG / Lab / Microbiology Data 03/05/25 03:45 03/05/25 03:45 Laboratory: Laboratory Results - last 24 hr 03/04/25 17:07: POC Glucose 113 H 03/04/25 21:35: POC Glucose 124 H 03/05/25 03:45: WBC 5.9, RBC 4.44 L, Hgb 12.0 L, Hct 37.2 L, MCV 83.8, MCH 27.0,MCHC 32.3, RDW Std Deviation 36.4, RDW Coeff of Ferny 12.0, Plt Count 278, MPV 10.4, Sodium 138, Potassium 3.8, Chloride 104, Carbon Dioxide 23.0, Anion Gap 10, BUN 11, Creatinine 0.87, Estim Creat Clear Calc 118.40, Est GFR (MDRD) Non-Af 111, BUN/Creatinine Ratio 13.1, Glucose 135 H, Calcium 9.2, Triglycerides 111, Cholesterol 149, LDL Cholesterol, Calc 68, VLDL Cholesterol 22, HDL Cholesterol 58, Cholesterol/HDL Ratio 2.55 03/05/25 06:37: POC Glucose 135 H 03/05/25 11:35: POC Glucose 192 H Radiography Diagnostic Testing: Radiology Impression Echocardiogram 03/04/25 15:02 Interpretation Summary The left ventricular ejection fraction is 60 %. Normal left ventricle. Left ventricular systolic function is normal. Stage 1 diastolic dysfunction. Structurally normal valves. Ordering Physician: Giovani Membreno Performed By: Timothy Leija RCS D/C Instructions Discharge Activity: Return to Normal Activity Weight Bearing Status: Weight bearing as tolerated Call your doctor if you observe: Fever of 101 or Higher, Shortness of breath, Dizziness and Chest pain DC O2, CPAP, BIPAP Needs Home O2 Discharge instructions: No Meaningful Use Info Meaningful Use Meaningful Use Diagnoses (Choose all that apply): None applicable Discharge Plan Admission Admit Date/Time: 03/04/25 14:58 Primary Reason for Your Visit: chest pain Attending Provider: Hoa Haskins Primary Care Provider: Ranjit Azar Consulting Providers: Giovani Membreno Instructions Patient Instructions: ED Chest Pain, Noncardiac Discharge Orders/Prescriptions Prescriptions: New lisinopril 20 mg tablet 20 mg PO DAILY Qty: 30 2RF Discontinued lisinopril 10 mg tablet 10 mg PO DAILY Referrals / Follow Up: Ranjit Aazr DO [Primary Care Provider, Medical] - Within 1 Week Disposition Disposition (needs filled in before D/C Order can be placed): Home, Self Care Charges/Coding Visit Charges Inpatient E&M: 27660 Disch Hosp >30min 03/05/25 1724 <Electronically signed by Hoa Haskins MD> Cosigner Signature (if applicable): CC: Dr. Ranjit Azar DO; Dr. Hoa Haskins MD~ Signed [facility] Work Phone: Evaluation note* Diagnosis Pre-op evaluation- Primary Preoperative examination, unspecified Ankle arthritis Unspecified arthropathy, ankle and foot Seizure disorder (HCC) Unspecified epilepsy without mention of intractable epilepsy Type 2 diabetes mellitus with diabetic neuropathy, with long-term current use of insulin (HCC) Essential hypertension Unspecified essential hypertension PILAR (obstructive sleep apnea) Obstructive sleep apnea (adult) (pediatric) Asthma, unspecified asthma severity, unspecified whether complicated, unspecified whether persistent Undifferentiated schizophrenia (HCC) Unspecified schizophrenia, unspecified condition Class 2 obesity due to excess calories with body mass index (BMI) of 38.0 to 38.9 in adult, unspecified whether serious comorbidity present Ankle arthritis Unspecified arthropathy, ankle and foot [facility] Diagnosis Type 2 diabetes mellitus without complication, with long-term current use of insulin (HCC) Ankle arthritis Unspecified arthropathy, ankle and foot [facility] Diagnosis Type 2 diabetes mellitus without complication, with long-term current use of insulin (HCC) [facility]* Diagnosis Type 2 diabetes mellitus with diabetic neuropathy, with long-term current use of insulin (HCC)- Primary 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, essential Unspecified essential hypertension Obesity, Class II, BMI 35-39.9 Obesity, unspecified Ankle arthritis Unspecified arthropathy, ankle and foot [facility] Diagnosis Arthritis of foot- Primary Unspecified arthropathy, ankle and foot [facility]* Diagnosis Type 2 diabetes mellitus without complication, with long-term current use of insulin (HCC) Seizure disorder (HCC) Unspecified epilepsy without mention of intractable epilepsy Other migraine without status migrainosus, not intractable Chronic bilateral thoracic back pain Spasm of thoracic back muscle Type 2 diabetes mellitus with diabetic neuropathy, with long-term current use of insulin (HCC) [facility]* Diagnosis Seizure disorder (HCC) Unspecified epilepsy without mention of intractable epilepsy [facility]* Diagnosis Ankle arthritis- Primary Unspecified arthropathy, ankle and foot Arthritis of subtalar joint Weakness of left leg Other musculoskeletal symptoms referable to limbs [facility] Diagnosis Polyarthralgia- Primary Pain in joint, multiple sites Arthritis of foot Unspecified arthropathy, ankle and foot Chronic pain of both ankles History of vitamin D deficiency Personal history of nutritional deficiency Positive GARCÍA (antinuclear antibody) Other and unspecified nonspecific immunological findings Limited joint range of motion (ROM) Fibromyalgia Mylagia and myositis, unspecified Seizure disorder (HCC) Unspecified epilepsy without mention of intractable epilepsy Asthma, unspecified asthma severity, unspecified whether complicated, unspecified whether persistent PILAR (obstructive sleep apnea) Obstructive sleep apnea (adult) (pediatric) BMI 36.0-36.9,adult Body Mass Index 36.0-36.9, adult Type 2 diabetes mellitus with diabetic neuropathy, with long-term current use of insulin (HCC) Falls frequently Personal history of fall [facility] Diagnosis Arthritis of foot Unspecified arthropathy, ankle and foot Polyarthralgia Pain in joint, multiple sites Chronic pain of both ankles Limited joint range of motion (ROM) [facility]* Diagnosis APPOINTMENT CANCELLED [facility] Work Phone: Evaluation note* Diagnosis Syncope, unspecified syncope type- Primary Type 2 diabetes mellitus without complication, with long-term current use of insulin (HCC) Seizure disorder (HCC) Unspecified epilepsy without mention of intractable epilepsy Obesity, Class II, BMI 35-39.9 Obesity, unspecified Dizziness Dizziness and giddiness [facility] Diagnosis Fall, subsequent encounter- Primary Scratches Other and unspecified superficial injury of other, multiple, and unspecified sites, without mention of infection [facility]* Diagnosis Severe persistent asthma without complication [facility]* Diagnosis Fibromyalgia Mylagia and myositis, unspecified Seizure disorder (HCC) Unspecified epilepsy without mention of intractable epilepsy [facility]* Diagnosis Seizure disorder (HCC)- Primary Unspecified epilepsy without mention of intractable epilepsy [facility]* Diagnosis Ankle arthritis- Primary Unspecified arthropathy, ankle and foot [facility]* Diagnosis Type 2 diabetes mellitus with diabetic neuropathy, with long-term current use of insulin (HCC) [facility]* Diagnosis Type 2 diabetes mellitus without complication, with long-term current use of insulin (HCC) [facility]* Diagnosis Fibromyalgia Mylagia and myositis, unspecified Seizure disorder (HCC) Unspecified epilepsy without mention of intractable epilepsy [facility] Diagnosis Chronic bilateral thoracic back pain Spasm of thoracic back muscle Other migraine without status migrainosus, not intractable [facility]* Diagnosis Fibromyalgia Mylagia and myositis, unspecified Seizure disorder (HCC) Unspecified epilepsy without mention of intractable epilepsy [facility]* Diagnosis Ankle arthritis- Primary Unspecified arthropathy, ankle and foot Arthritis of subtalar joint Bilateral foot-drop Other acquired deformity of ankle and foot [facility]* Diagnosis Chronic bilateral thoracic back pain Spasm of muscle of lower back [facility]* Diagnosis Type 2 diabetes mellitus without complication, with long-term current use of insulin ([facility]) [facility]* Diagnosis Mixed hyperlipidemia- Primary [facility]* Diagnosis Chronic bilateral thoracic back pain Spasm of thoracic back muscle [facility]* Diagnosis Nonintractable epilepsy without status epilepticus, unspecified epilepsy type (HCC)- Primary Vitamin D deficiency Unspecified vitamin D deficiency Psychophysiologic insomnia Persistent disorder of initiating or maintaining sleep [facility]* Diagnosis Nonintractable epilepsy without status epilepticus, unspecified epilepsy type (HCC) [facility]* Diagnosis Chronic bilateral thoracic back pain Spasm of muscle of lower back [facility]* Diagnosis Chronic bilateral thoracic back pain Spasm of muscle of lower back [facility]* Diagnosis Type 2 diabetes mellitus with diabetic neuropathy, with long-term current use of insulin (HCC)- Primary [facility]* Diagnosis Fibromyalgia Mylagia and myositis, unspecified Seizure disorder (HCC) Unspecified epilepsy without mention of intractable epilepsy [facility]* Diagnosis Type 2 diabetes mellitus with diabetic neuropathy, with long-term current use of insulin (HCC) [facility]* Diagnosis Chronic bilateral thoracic back pain Spasm of thoracic back muscle Type 2 diabetes mellitus with diabetic neuropathy, with long-term current use of insulin (HCC) [facility]* Diagnosis Type 2 diabetes mellitus with diabetic neuropathy, with long-term current use of insulin (HCC)- Primary [facility]* Diagnosis Type 2 diabetes mellitus with diabetic neuropathy, with long-term current use of insulin ([facility]) [facility]* Diagnosis Ankle arthritis Unspecified arthropathy, ankle and foot Arthritis of subtalar joint [facility]* Diagnosis Seizure disorder (HCC)- Primary Unspecified epilepsy without mention of intractable epilepsy [facility]* Diagnosis Lymphadenopathy Enlargement of lymph nodes Pre-op evaluation- Primary Preoperative examination, unspecified Ankle arthritis Unspecified arthropathy, ankle and foot Seizure disorder (HCC) Unspecified epilepsy without mention of intractable epilepsy Type 2 diabetes mellitus with diabetic neuropathy, with long-term current use of insulin (HCC) Essential hypertension Unspecified essential hypertension PILAR (obstructive sleep apnea) Obstructive sleep apnea (adult) (pediatric) Asthma, unspecified asthma severity, unspecified whether complicated, unspecified whether persistent Undifferentiated schizophrenia (HCC) Unspecified schizophrenia, unspecified condition Class 2 obesity due to excess calories with body mass index (BMI) of 38.0 to 38.9 in adult, unspecified whether serious comorbidity present [facility]* Diagnosis Pre-op evaluation- Primary Preoperative examination, unspecified Ankle arthritis Unspecified arthropathy, ankle and foot Seizure disorder (HCC) Unspecified epilepsy without mention of intractable epilepsy Type 2 diabetes mellitus with diabetic neuropathy, with long-term current use of insulin (HCC) Essential hypertension Unspecified essential hypertension PILAR (obstructive sleep apnea) Obstructive sleep apnea (adult) (pediatric) Asthma, unspecified asthma severity, unspecified whether complicated, unspecified whether persistent Undifferentiated schizophrenia (HCC) Unspecified schizophrenia, unspecified condition Class 2 obesity due to excess calories with body mass index (BMI) of 38.0 to 38.9 in adult, unspecified whether serious comorbidity present Well adult exam- Primary Routine general medical examination at a health care facility Type 2 diabetes mellitus with diabetic neuropathy, with long-term current use of insulin (HCC) Other migraine without status migrainosus, not intractable Seizure disorder (HCC) Unspecified epilepsy without mention of intractable epilepsy Mixed hyperlipidemia Essential hypertension Unspecified essential hypertension Screening for thyroid disorder Vitamin D deficiency Unspecified vitamin D deficiency Screening for depression Encounter for screening examination for other mental health and behavioral disorders [facility]* Diagnosis Pre-op evaluation- Primary Preoperative examination, unspecified Ankle arthritis Unspecified arthropathy, ankle and foot Seizure disorder (HCC) Unspecified epilepsy without mention of intractable epilepsy Type 2 diabetes mellitus with diabetic neuropathy, with long-term current use of insulin (HCC) Essential hypertension Unspecified essential hypertension PILAR (obstructive sleep apnea) Obstructive sleep apnea (adult) (pediatric) Asthma, unspecified asthma severity, unspecified whether complicated, unspecified whether persistent Undifferentiated schizophrenia (HCC) Unspecified schizophrenia, unspecified condition Class 2 obesity due to excess calories with body mass index (BMI) of 38.0 to 38.9 in adult, unspecified whether serious comorbidity present Type 2 diabetes mellitus with diabetic neuropathy, with long-term current use of insulin (HCC)- Primary documented in this encounter [facility] note* Diagnosis Pre-op evaluation- Primary Preoperative examination, unspecified Ankle arthritis Unspecified arthropathy, ankle and foot Seizure disorder (HCC) Unspecified epilepsy without mention of intractable epilepsy Type 2 diabetes mellitus with diabetic neuropathy, with long-term current use of insulin (HCC) Essential hypertension Unspecified essential hypertension PILAR (obstructive sleep apnea) Obstructive sleep apnea (adult) (pediatric) Asthma, unspecified asthma severity, unspecified whether complicated, unspecified whether persistent Undifferentiated schizophrenia (HCC) Unspecified schizophrenia, unspecified condition Class 2 obesity due to excess calories with body mass index (BMI) of 38.0 to 38.9 in adult, unspecified whether serious comorbidity present Type 2 diabetes mellitus with diabetic neuropathy, with long-term current use of insulin (HCC)- Primary Vitamin D deficiency Unspecified vitamin D deficiency documented in this encounter [facility] note* Diagnosis Pre-op evaluation- Primary Preoperative examination, unspecified Ankle arthritis Unspecified arthropathy, ankle and foot Seizure disorder (HCC) Unspecified epilepsy without mention of intractable epilepsy Type 2 diabetes mellitus with diabetic neuropathy, with long-term current use of insulin (HCC) Essential hypertension Unspecified essential hypertension PILAR (obstructive sleep apnea) Obstructive sleep apnea (adult) (pediatric) Asthma, unspecified asthma severity, unspecified whether complicated, unspecified whether persistent (HCC) Undifferentiated schizophrenia (HCC) Unspecified schizophrenia, unspecified condition Class 2 obesity due to excess calories with body mass index (BMI) of 38.0 to 38.9 in adult, unspecified whether serious comorbidity present Seizure-like activity (HCC)- Primary Other convulsions documented in this encounter [facility] note* Diagnosis Pre-op evaluation- Primary Preoperative examination, unspecified Ankle arthritis Unspecified arthropathy, ankle and foot Seizure disorder (HCC) Unspecified epilepsy without mention of intractable epilepsy Type 2 diabetes mellitus with diabetic neuropathy, with long-term current use of insulin (HCC) Essential hypertension Unspecified essential hypertension PILAR (obstructive sleep apnea) Obstructive sleep apnea (adult) (pediatric) Asthma, unspecified asthma severity, unspecified whether complicated, unspecified whether persistent (HCC) Undifferentiated schizophrenia (HCC) Unspecified schizophrenia, unspecified condition Class 2 obesity due to excess calories with body mass index (BMI) of 38.0 to 38.9 in adult, unspecified whether serious comorbidity present Essential hypertension Unspecified essential hypertension documented in this encounter [facility] note* Diagnosis Pre-op evaluation- Primary Preoperative examination, unspecified Ankle arthritis Unspecified arthropathy, ankle and foot Seizure disorder (HCC) Unspecified epilepsy without mention of intractable epilepsy Type 2 diabetes mellitus with diabetic neuropathy, with long-term current use of insulin (HCC) Essential hypertension Unspecified essential hypertension PILAR (obstructive sleep apnea) Obstructive sleep apnea (adult) (pediatric) Asthma, unspecified asthma severity, unspecified whether complicated, unspecified whether persistent (HCC) Undifferentiated schizophrenia (HCC) Unspecified schizophrenia, unspecified condition Class 2 obesity due to excess calories with body mass index (BMI) of 38.0 to 38.9 in adult, unspecified whether serious comorbidity present Type 2 diabetes mellitus with diabetic neuropathy, with long-term current use of insulin (HCC)- Primary Vitamin D deficiency Unspecified vitamin D deficiency Noncompliance Personal history of noncompliance with medical treatment, presenting hazards to health Obesity, Class I, BMI 30-34.9 Obesity, unspecified documented in this encounter [facility] note* Diagnosis Onset Date Resolution Status Admit Date Chest pain inactive February 2:58pm [facility] Work Phone: History and physical note Author [facility] Date/Time March 04, 2025 8:02pm [facility] Medical Records Department [address] [place] [address] H&P Exam - Hospitalist 03/04/25 1458 MR#: [id number] Acct: [id number] Name: VICTOR HUGO ASIF Rep #:[id number] : 1985 39 From: Giovani ness DO PCP: Dr. Ranjit Azar DO Status:[facility] Location: [place] [address] HPI - General General Date of Admission: 03/04/25 Date of Service: 03/04/25 Chief Complaint: Chest pain HPI Narrative VICTOR HUGO ASIF, is a 39 M who presented to [facility] ED on 03/04/2025 with chest pain. Medical history significant for hypertension, type 2diabetes mellitus and class I obesity. Patient lives at home with his . 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 He reports ongoing chest pain/heaviness in the center part of his chest for the past 3 days. He has had chest discomfort in that area before but never this severe. Denies any radiation of the pain into his arms or into his neck. Notes that the pain seems to worsen slightly with exertion but does not improve significantly with rest. Denies anyacid reflux symptoms. Denies any recent falls or trauma. Denies any tobacco, alcohol or recreational drug use. Denies any significant family history of cardiac disease that he is aware of. In the ED he was hypertensive to the 150s to 160s systolic but otherwise in normal sinus rhythm and stable on room air at rest. CBC and BMP were benign. Glucose 167. Troponins negative x 2. BNP normal. Chest x-ray nonacute. EKG with normal sinus rhythm and no ST changes noted. Has never had an echo or stress test done. Given his age, heart score 4and ongoing chest pain, hospitalist was contacted for admission. I saw the patient at bedside in the ED. Patient was sitting back fairly comfortably in bed, in no acute distress. He was conversing normally and was somewhat long-winded with conversation. He was given a dose of aspirin 325 mg in the ED. Notes that his chest pain is slightly improved from earlier today. Denies any shortness of breath. Patient notes that he has currently on only lisinopril andTrulicity at home, though he apparently was previously on several other medications as of about a year ago. However, he lost his insurance coverage andis seeing a new PCP who he notes took him off most of these medications because they were not needed. He denies any other acute concerns currently. [facility] Medical History Acute gangrenous cholecystitis Acute cholecystitis DM2 (diabetes mellitus, type 2) Schizoaffective disorder Cholecystitis Depression Seizure SOB (shortness of breath) Asthma HTN (hypertension) Home Medications ?Medication ?Instructions ?Recorded ?Last Taken ?Type lisinopril 10 mg tablet 10 mg PO DAILY 03/04/25 Unkn own History Allergy/AdvReac Type Severity Reaction Status Date / Time hydrocodone bitartrate (From Allergy Hives Verified 03/04/25 11:16 Vicodin) acetaminophen AdvReac Nausea/hive Verified 03/04/25 11:16 s baclofen AdvReac IT MAKES Verified 03/04/25 11:16 HIM LIGHTHEADED AND SICK lactose AdvReac Nausea Verified 03/04/25 11:16 Penicillins AdvReac Nausea Verified 03/04/25 11:16 Surgical History History of laparoscopic cholecystectomy (~04/20/19) Social History household members: spouse and family current occupational status: employed Smoking Status: Former smoker ROS Constitutional Constitutional: Denies chills, fatigue, fever(s) or weakness Cardiovascular Cardiovascular: Reports chest pain; Denies dyspnea on exertion, edema, lightheadedness or palpitations Respiratory/Chest Respiratory/Chest: Denies cough, shortness of breath at rest or shortness of breath with exertion Gastrointestinal Gastrointestinal: Denies abdominal pain Musculoskeletal Musculoskeletal: Denies arthralgias or myalgias Neurologic Neurologic: Denies dizziness, focal weakness or headache(s) Vital Signs Vital Signs Vital Signs: 03/04/25 11:16 03/04/25 13:16 03/04/25 14:50 Temperature 98 F Temperature Source Temporal Pulse Rate 107 H 78 77 Respiratory Rate 18 16 Blood Pressure 152/104 H 156/114 H 158/108 H Blood Pressure Mean 120 128 124 Pulse Ox 100 100 Oxygen Delivery Method Room Air Weight Weight: 91 kg Body Mass Index (BMI) 32.3 Physical Exam Const alert, oriented x3, no apparent distress and average body habitus Constitutional Narrative: Middle-age male, class I obesity, mildly fatigued appearing, otherwise sitting back fairly comfortably in bed, conversing normally, in no acute distress. General Appearance: cooperative and comfortable HEENT normocephalic, head/scalp atraumatic, hearing grossly normal bilaterally, nasal mucous membranes and turbinates normal and moist oral mucous membranes Eyes PERRL, EOMs intact bilaterally and conjunctivae normal Neck full ROM Chest inspection of chest normal Resp normal respiratory effort, normal air movement, no use of accessory muscles and clear to auscultation bilaterally Cardio regular rate, regular rhythm, no murmurs and peripheral pulses 2+ throughout GI normal to inspection, nondistended, normoactive bowel sounds, soft to palpation,non-tender and non-distended Back/Spine normal ROM Extremity normal to inspection, full ROM and no pedal edema Skin no rashes or lesions noted Psych mental status grossly normal Results Lab / Micro Data 03/04/25 11:38 03/04/25 11:38 Labs: Laboratory Results - last 24 hr 03/04/25 11:38: WBC 4.2 L, RBC 4.50 L, Hgb 12.4 L, Hct 37.5 L, MCV 83.3, MCH 27.6, MCHC 33.1, RDW Std Deviation 36.6, RDW Coeff of Ferny 12.0, Plt Count 254, MPV 11.3, Immature Gran % (Auto) 0.500, Neut % (Auto) 60.9, Lymph % (Auto) 29.7,Davison % (Auto) 7.2, Eos % (Auto) 0.7, Baso % (Auto) 1.0, Absolute Neuts (auto) 2.5, Absolute Lymphs (auto) 1.24, Nucleated RBC % 0, PT 12.7, INR 0.9, APTT 25.8, D-Dimer Quant (PE/DVT) 0.43, Sodium 139, Potassium 4.0, Chloride 103, Carbon Dioxide 24.4, Anion Gap 11, BUN 12, Creatinine 0.97, Estim Creat Clear Calc 105.86, Est GFR (MDRD) Non-Af 101, BUN/Creatinine Ratio 12.6, Glucose 167 H, Calcium 9.4, Troponin T High Sens 15, NT pro BNP II 62 03/04/25 14:06: Troponin T Hi Sens 2 Hr 10 Imaging Radiology Impression Chest X-Ray 03/04/25 11:59 IMPRESSION: No acute cardiopulmonary process Reading Location: [id number] Assessment & Plan Assessment/Plan (1) Chest pain: PLAN: Plan Patient is a 39-year-old male who presented to [facility] ED on 03/04/2025 with chest pain. 1. Chest pain, ACS rule out ? Admit under observation status to PCU. Troponins negative x 2, EKG with normal sinus rhythm and no ST changes, chest x-ray negative and BNP normal. However, given history of hypertension, diabetes and obesity as below and heart score 4, cannot rule out cardiac etiology. Nuclear stress test and echocardiogram ordered. A.m. fasting lipid profile ordered. Monitor cardiac telemetry. 2. 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 ? Patient hypertensive to the 150s to 160s systolic and 100s diastolic in the ED. Noted that he had not taken his home lisinopril 10 mg yet today. Does not check his blood pressures at home. Suspect patient may have poorly controlled hypertension and may need additional antihypertensive therapy for this. For shira continue home lisinopril and add IV hydralazine as needed for SBP greater than 170. 3. Type 2 diabetes mellitus ? Glucose 167 on admit. A1c 8.5%. Last A1c in our system was from 2018; was 6.0% then but was up at 9.5% back in 2014. Patient reports being on only weeklyTrulicity at this time. Will treat with sliding scale insulin with meals while inpatient. Could consider initiation of metformin on discharge or defer to PCP for medication changes. 4. Class I obesity ? BMI 32 on admit. Discussed lifestyle modifications. Complicates hospital course and care. DVT prophylaxis: Lovenox CODE STATUS: Full code, verified Expected disposition: Home, 1 to 2 days Total clinical time spent by myself addressing the patient's medical issues, reviewing all the data, and collaborating with patient's care team: 76 minutes. Charges/Coding Visit Charges Inpatient E&M: 82042 Init Hosp L3 03/04/252001 <Electronically signed by Giovani Membreno DO> Cosigner Signature (if applicable): CC: Dr. Giovani Membreno, DO; Dr. Ranjit Azar, DO~ Signed [facility] Work Phone: Hospital Discharge instructions Additional Instructions You were given an antibiotic shot here and a prescription for doxycycline to take at home for the next week. I also prescribed naproxen for pain. Please follow-up with your primary care doctor.[facility] Work Phone: [facility] Work Phone: Hospital Discharge instructions Additional Instructions Continue to increase fluids at home. Increase water or Gatorade 0 Follow-up with PCP as well. [facility] Work Phone: Hospital Discharge instructionsAdditional Instructions Follow-up with your primary care provider. You had elevated sugars today and may need to be started on medication again if your glucose/sugars are not controlled with diet and exercise. Return to the emergency department with new or worsening symptoms. Follow-up with your neurologist as well.[facility] Work Phone: Reason for referral (narrative)* Outpatient Procedure (Routine) - Additional Clinical Info Needed Specialty Diagnoses / Procedures Referred By Rolf t Referred To Contact [facility] Diagnoses Syncope, unspecified syncope type Procedures ECHO ECHO TTHRC R-T 2D W/WOM-MODE COMPL SPEC&COLR D Nicole Roberts APRN.WARRANTY CLERK [address] [place] [address] [facility] [place] [address] [place] [address] Referral ID Status Reason Start Date Expiration Date Visits Requested Visits Authorized [id number] Additional Clinical Info Needed Auto-Genera paul Referral Clearance Not Met - Admin/Chair man/Directo r Advise to Postpone/Re schedule or Not Proceed 12/23/2021 12/23/2022 1 1 * Outpatient Procedure (Routine) - Closed Specialty Diagnoses / Procedures Referred By Rolf heard Referred To Contact [facility] Diagnoses Syncope, unspecified syncope type Procedures ECG COMPLETE ECG ROUTINE ECG W/LEAST 12 LDS W/I&R Nicole Roberts APRN.WARRANTY CLERK [address] [place] [address] [facility] [address] [place] [address] Referral ID Status Reason Start Date Expiration Date V isits Requested Visits Authorized [id number] Closed Auto-Generate d Referral 12/23/2021 12/23/2022 1 1 [facility] for referral (narrative)* Diagnostic Procedure Only (Routine) - Closed Specialty Diagnoses / Procedures Referred By Contac t Referred To Contact XR IMAGING Diagnoses Ankle arthritis Arthritis of subtalar joint Procedures XR ANKLE GENERAL 3V AP/LAT/OBL BILATERAL RADEX ANKLE COMPLETE MINIMUM 3 [address] [place] [address] Xr Imaging Referral ID Status Reason Start Date Expiration Date V isits Requested Visits Authorized [id number] Closed Auto-Generate d Referral 08/01/2022 08/31/2023 1 1 [facility] for referral (narrative)* Diagnostic Procedure Only (Routine) - Closed Specialty Diagnoses / Procedures Referred By Contac t Referred To Contact XR IMAGING Diagnoses Ankle arthritis Arthritis of subtalar joint Procedures XR ANKLE GENERAL 3V AP/LAT/OBL BILATERAL RADEX ANKLE COMPLETE MINIMUM 3 [address] [place] [address] [place] [address] Referral ID Status Reason Start Date Expiration Date V isits Requested Visits Authorized [id number] Closed Auto-Generate d Referral 08/01/2022 08/31/2023 1 1 [facility] for referral (narrative)No reason for referral information availableWWilson [facility] Work Phone: [facility] Narrative* Diagnostic Procedure Only (Routine) - Closed Specialty Diagnoses / Procedures Referred By Contac t Referred To Contact XR IMAGING Diagnoses Ankle arthritis Arthritis of subtalar joint Procedures XR ANKLE GENERAL 3V AP/LAT/OBL BILATERAL RADEX ANKLE COMPLETE MINIMUM 3 [address] [place] [place] [address] [place] [address] Referral ID Status Reason Start Date Expiration Date V isits Requested Visits Authorized [id number] Closed Auto-Generate d Referral 08/01/2022 08/31/2023 1 1 [facility] Summary Purpose Family History No Family History Records Found Relationship Condition Age at Onset Recorded Date/T douglas Unknown Family History?Unknown Unknown October 072017 7:03am Family History?Unknown Unknown October 072017 7:03am Family History?Unknown Unknown Novem 2018 3:19pm Relationship Condition Age at Onset Recorded Date/T douglas Unknown Family History?Unknown Unknown October 072017 6:03am Family History?Unknown Unknown October 072017 6:03am Family History?Unknown Unknown Novem 2018 2:19pm Advance Directives No Advanced Directives Records FoundDocuments on File Type Date Recorded Patient Title Search Manager Expl anation Advance Directives and Living Will Power of Mechanical Shop Laborer Latest Code Status on File Code Status Date Activated Date Inactivated Comments Full Code 04/02/2018 5:12 AM 04/03/2018 4:13 PM Full Code 03/29/2018 7:21 PM 04/02/2018 1:26 AM Full Code 03/29/2018 12:46 PM 03/29/2018 7:16 PM Documents on File Type Date Recorded Patient Title Search Manager Expl anation Advance Directives and Living Will Power of Mechanical Shop Laborer Latest Code Status on File Code Status Date Activated Date Inactivated Comments Full Code 04/02/2018 5:12 AM 04/03/2018 4:13 PM Full Code 03/29/2018 7:21 PM 04/02/2018 1:26 AM Full Code 03/29/2018 12:46 PM 03/29/2018 7:16 PM Latest Code Status on File Code Status Date Activated Date Inactivated Comments Full Code 12/30/2019 6:23 PM Full Code 12/30/2019 11:38 AM 12/30/2019 6:08 PM Full Code 04/02/2018 5:12 AM 04/03/2018 4:13 PM Documents on File Type Date Recorded Patient Title Search Manager Expl anation Advance Directive(s) Advance Directive(s) 02/27/2018 12:14 PM Advance Directive(s) 02/24/2018 4:03 PM Advance Directive(s) 01/26/2018 4:26 AM Documents on File Type Date Recorded Patient Title Search Manager Expl anation Advance Directive(s) Advance Directive(s) 09/04/2021 11:43 AM Advance Directive(s) 02/27/2018 12:14 PM Advance Directive(s) 02/24/2018 4:03 PM Advance Directive(s) 01/26/2018 4:26 AM Documents on File Type Date Recorded Patient Title Search Manager Expl anation Advance Directive(s) Advance Directive(s) 09/20/2021 9:02 AM Advance Directive(s) 09/04/2021 11:43 AM Advance Directive(s) 02/27/2018 12:14 PM Advance Directive(s) 02/24/2018 4:03 PM Advance Directive(s) 01/26/2018 4:26 AM Documents on File Type Date Recorded Patient Title Search Manager Expl anation Advance Directive(s) Advance Directive(s) 09/20/2021 9:02 AM Advance Directive(s) 09/04/2021 11:43 AM Advance Directive(s) 02/27/2018 12:14 PM Advance Directive(s) 02/24/2018 4:03 PM Advance Directive(s) 01/26/2018 4:26 AM Advance Directive Response Recorded Date/ Time Advance Directives No April 3:19pm Living Will No December 18, 2021 12:03pm Power of Mechanical Shop Laborer No December 18 12:03pm Advance Directive Response Recorded Date/ Time Advance Directives No April 3:19pm Living Will No January 08, 2022 9:47pm Power of Mechanical Shop Laborer No January 08 9:47pm Documents on File Type Date Recorded Patient Title Search Manager Expl anation Advance Directive(s) 02/27/2018 12:14 PM Documents on File Type Date Recorded Patient Title Search Manager Expl anation Advance Directive(s) 02/27/2018 12:14 PM Advance Directive Response Recorded Date/ Time Advance Directives No April 3:19pm Living Will No August 16, 2022 9:55am Power of Mechanical Shop Laborer No August 16 9:55am Advance Directive Response Recorded Date/ Time Advance Directives No April 3:19pm Living Will No February 08, 2 023 12:22pm Power of Mechanical Shop Laborer No February 08, 2023 12:22pm Advance Directive Response Recorded Date/ Time Advance Directives No April 3:19pm Living Will No February 08, 2 023 3:31pm Power of Mechanical Shop Laborer No February 08, 2023 3:31pm Advance Directive Response Recorded Date/ Time Advance Directives No April 2:19pm Living Will No May 31 023 11:54am Power of Mechanical Shop Laborer No May 31, 2023 11:54am Advance Directive Response Recorded Date/ Time Do you have a Healthcare Power of Mechanical Shop Laborer? No January 21, 2025 12:03pm Advance Directives No April 3:19pm Advance Directive Response Recorded Date/ Time Do you have a Healthcare Power of Mechanical Shop Laborer? No January 21, 2025 12:03pm Do you have a Healthcare Power of Mechanical Shop Laborer? No March 04, 2025 5:17pm Advance Directives No April 3:19pm Discharge Instructions * Instructions* Theresa Bro, RN - 07/18/2019 Shower with an antibacterial soap before coming to the hospital You may use the free patrol agent parking at the main entrance on [address] [place] [address], or the free parking in the [facility] parking deck Please bring your [facility] Surgical Information folder on the day of surgery. Please nat the last dose taken (date and time ) on your Daily Medications List provided in your After Visit Summary. Please bring a photo ID and insurance information STOP Indocin for at least three days before surgery and stop Mobic for three days before surgery. INSULIN INSTRUCTIONS: the morning of surgery take 19 units of Tresiba insulin (degludec) , do not take any Novolog insulin that morning TAKE the following medications the morning of your surgery: Dulera inhaler, verapamil , nadolol , gabapentin, pregabalin , duloxetine, zyrtec, Bentyl, Prilosec, Risperidone and if needed you may takeImitrex, Zanaflex, Albuterol inhaler, Phenergan and Compazine and Zofran You may take your prescription pain medications. You may take Tylenol (Acetaminophen) if needed forpain. No Motrin, Ibuprofen, or Advil 24 hours prior to surgery, or longer if instructed by your surgeon. No Aleve or Naprosyn 3 days prior to surgery, or longer if instructed by your surgeon. Do not take aspirin or aspirin containing products for 5 days before surgery, or longer if instructed by your surgeon. You will receive a reminder call the day before surgery with your Same Day Surgery arrival time. If you have specific questions, please call your surgeon. No alcohol for 24 hours before surgery NO food after midnight including NO tube feed. NO jello, NO broth, NO orange juice You may have clear liquids up to 2 hours before surgery including: water, pulp free juice (apple orcranberry juice but NOT orange juice), soda, Gatorade, Powerade, clear tea or black coffee, if you have coffee or tea DO NOT USE cream, milk, powdered creamers, whiteners Before arriving to the hospital , have UP TO 16 ounces or clear fluid, preferable a high-carb drinklike Gatorade or Powerade. documented in this encounter* Instructions* Harriet Anglin RN - 12/25/2019 Follow all instructions given to you by Basal Insulin: If you are using long acting insulin in the morning, take 21 units of TRESIBA insulin the morning of surgery. Please bring your [facility] Surgical Information folder on the day of surgery. Please nat the last dose taken (date and time ) on your Daily Medications List provided in your After Visit Summary. Please bring a photo ID and insurance information TAKE the following medications the morning of your surgery DIVALPROEX, RISPERIDONE, NADOLOL, OMEPRAZOLE, INHALERS, No Motrin, Ibuprofen, or Advil 24 hours prior to surgery, or longer if instructed by your surgeon. AFTER 12/28/2019 No Aleve or Naprosyn 3 days prior to surgery, or longer if instructed by your surgeon. AFTER 12/26/2019 STOP INDOCIN AFTER 12/28/2019 If you are on BLOOD THINNERS or ASPIRIN, N/A Additional instructions SEE THE BROCHURE. PLEASE DRINK [address] CLEAR LIQUID ON [address] TO HOSPITAL 2 HOURS PRIOR TO SURGERY You will receive a reminder call the day before surgery with your Same Day Surgery arrival time. If you have specific questions, please call your surgeon. documented in this encounter History of Present Illness * Lobo Jean-Baptiset - 07/18/2019 3:30 PM EST Labs obtained on first attempt with 22 gauge needle at R AC site, patient tolerated well, site benign. documented in this encounter* Rhona Hernández DTR - 01/01/2020 2:34 PM EDT Nutrition rescreen completed. Chart reviewed. Patient to be monitored and followed by the diet configuration technician. Dietitian available upon request. * Wolfgang Cheng Ry, DO - 01/01/2020 8:38 AM EDT [facility] - Infectious Diseases Attending Progress Note Subjective: Following for mandibular osteomyelitis, s/p hardware removal and replacement, prior facial cellulitis. Reviewed interim history and available chart/notes/labs and studies. Tolerated ertapenem. Was in discussion with Plastics on DC plan, updated with TCC today. Objective: Vitals: BP (!) 141/95 Pulse 64 Temp 98 F (36.7 C) (Temporal) Resp 16 Ht 5' 5 (1.651 m) Wt 234 lb(106.1 kg) SpO2 95% BMI 38.94 kg/m Intake/Output Summary (Last 24 hours) at 01/01/2020 0838 Last data filed at 01/01/2020 0137 Gross per 24 hour Intake 2669 ml Output 2900 ml Net -231 ml Physical Exam Constitutional: Appearance: He is obese. He is not ill-appearing. HENT: Head: Normocephalic and atraumatic. Nose: Nose normal. Mouth/Throat: Mouth: Mucous membranes are dry. Pharynx: Oropharynx is clear. Eyes: Extraocular Movements: Extraocular movements intact. Conjunctiva/sclera: Conjunctivae normal. Neck: Musculoskeletal: Muscular tenderness present. No neck rigidity. Comments: Neck post-op with facial swelling, incision D/C/I Pulmonary: Effort: Pulmonary effort is normal. No respiratory distress. Skin: General: Skin is warm and dry. Neurological: General: No focal deficit present. Mental Status: He is alert and oriented to person, place, and time. Cranial Nerves: No cranial nerve deficit. Labs: Component Value Date/Time NA 131 (L) 12/31/2019 0409 K 4.6 12/31/2019 0409 CL 97 (L) 12/31/2019 0409 CO2 21 (L) 12/31/2019 0409 BUN 11 12/31/2019 0409 CREATININE 0.63 12/31/2019 0409 GLUCOSE 309 (H) 12/31/2019 0409 CALCIUM 9.1 12/31/2019 0409 PROT 6.6 04/02/2018 0811 LABALBU 3.4 (L) 04/02/2018 0811 BILITOT 0.4 04/02/2018 0811 ALKPHOS 55 04/02/2018 0811 AST 25 04/02/2018 0811 ALT 18 04/02/2018 0811 Component Value Date/Time WBC 12.4 (H) 12/31/2019 0409 HGB 12.8 (L) 12/31/2019 0409 HCT 39.8 (L) 12/31/2019 0409 PLT 210 12/31/2019 0409 GRANULOCYTES 50.8 07/18/2019 1627 LYMPHOPCT 34.7 07/18/2019 1627 MONOPCT 9.8 07/18/2019 1627 LABEOS 3.5 07/18/2019 1627 BASOPCT 1.2 07/18/2019 1627 NEUTROABS 2.8 07/18/2019 162 Micro: Blood cultures: No results found for: BC Reviewed all relevant labs and microbiology data. Lines: PIV Radiography/Echo/Other: Mandible osteomyelitis A displaced right mandibular body fracture is observed. Mandibular bodies have been secured with reconstruction plates and multiple screws. Temporomandibular joint alignment is symmetric and anatomic bilaterally. Dental caries are present. Visualized paranasal sinuses are pneumatized. Nasal bone and spine appear intact. Antimicrobials, Start/End Dates: Ertapenem Impression: 1. Mandibular osteomyelitis 2. S/P removal of hardware and replacement and teeth extraction 3. S/P extensive mandibular surgery ([facility]) 4. H/O facial cellulitis 5. Multiple medical issues Plan: 1. Plan to DC on oral amoxicillin-clavulanate for 4 weeks 2. Follow-up with Plastics Discussed with patient and TCC Pager: [phone] * Angelica Medina MD - 12/31/2019 7:36 AM EDT Plastic Surgery Progress Note PATIENT NAME: Victor Hugo Asif TODAY'S DATE: 12/31/2019 SUBJECTIVE: No issues overnight. Pain controlled OBJECTIVE: VITALS: BP (!) 151/99 Pulse 78 Temp 97.4 F (36.3 C) (Temporal) Resp 18 Ht 5' 5 (1.651 m) Wt 234 lb (106.1 kg) SpO2 96% BMI 38.94 kg/m INTAKE/OUTPUT: I/O last 3 completed shifts: In: 800 [P.O.:500; I.V.:300] Out: 2350 [Urine:2250; Blood:100] No intake/output data recorded. CONSTITUTIONAL: awake and alert INCISION: left intra-oral and external incisions clean, dry, no drainage, dehiscence or erythema Data: CBC: Recent Labs 12/30/19 1227 12/31/19 0409 WBC -- 12.4* HGB 12.3* 12.8* HCT 37.6* 39.8* PLT -- 210 BMP: Recent Labs 12/30/19 1227 12/31/19 0409 NA 133* 131* K 4.0 4.6 CL 101 97* CO2 24 21* BUN 8 11 CREATININE 0.59 0.63 GLUCOSE 160* 309* INR: No results for input(s): INR in the last 72 hours. ASSESSMENT AND PLAN: 34 y.o. male h/o osteomyelitis POD 1 s/p left mandibular tooth extraction (#30, 31), plate exposureand reinforcement -F/u bone cultures. Gram stain: gram negative bacilli -Clindamycin. ID consult for recs. Appreciate assistance -Pain control -Dental soft chew diet -OOB -Plan for d/c home tomorrow pending ID recs D/w Dr. Oziel Medina MD PGY-8 Plastic & Reconstructive Surgery Fellow Pager #[phone] documented in this encounter Reason for Referral Status Reason Specialty Diagnoses / Procedures Re ferred By Contact Referred To Contact Closed Cardiology Diagnoses Chest pain, unspecified type PILAR (obstructive sleep apnea) Non-adherence to medical treatment Encounter for pre-operative cardiovascular clearance Procedures Echo 2D Doppler Color Preethi Brush MD [address] [place] [address] [address] [place] [address] Specialty Diagnoses / Procedures Referred By Contskylar t Referred To Contact Rheumatology Diagnoses Arthritis of foot Procedures CONSULT TO RHEUM/IMMUN DISEASE OFFICE/OUTPATIENT SELECT AT [place] 60-74 MINUTES Ray Yanez [address] [place] [address] Referral ID Status Reason Start Date Expiration Date Visits Requested Visits Authorized [id number] Authorized PCP Requested Referral 09/30/2021 09/30/2022 1 1 Specialty Diagnoses / Procedures Referred By Rolf t Referred To Contact Love Nguyen APRN.WARRANTY CLERK [address] [place] [address] Referral ID Status Reason Start Date Expiration Date V isits Requested Visits Authorized [id number] Pending Review 1 1 Referral ID Status Reason Start Date Expiration Date V isits Requested Visits Authorized [id number] Pending Review 1 1 Specialty Diagnoses / Procedures Referred By Divineac t Referred To Contact Diagnoses Type 2 diabetes mellitus with diabetic neuropathy, with long-term current use of insulin ([facility]) Love Nguyen APRN.WARRANTY CLERK [address] [place] [address] Referral ID Status Reason Start Date Expiration Date Visits Re quested Visits Authorized [id number] Closed 1 1 Specialty Diagnoses / Procedures Referred By Contac t Referred To Contact Nicole Roberts APRN.WARRANTY CLERK [address] [place] [address] Referral ID Status Reason Start Date Expiration Date Visits Re quested Visits Authorized [id number] Closed 1 1 Specialty Diagnoses / Procedures Referred By Contac t Referred To Contact [facility] Diagnoses Arthritis of foot Polyarthralgia Chronic pain of both ankles Limited joint range of motion (ROM) Procedures CONSULT TO PHYSICAL THERAPY PHYSICAL THERAPY EVALUATION HIGH COMPLEX 45 MINS Lenora [place] PA-C [address] [place] [address] [facility] [place] [address] [place] [address] Referral ID Status Reason Start Date Expiration Date Visits Requested Visits Authorized [id number] Authorized Auto-Generat ed Referral 10/26/2021 01/26/2022 1 1 Specialty Diagnoses / Procedures Referred By Contac t Referred To Contact [facility] Diagnoses Arthritis of foot Polyarthralgia Chronic pain of both ankles Limited joint range of motion (ROM) Procedures PT REHAB FOLLOW UP ORDER THERAPEUTIC EXERCISES RE, EA 15 MIN. Pt [facility] [address] [place] [address] [facility] [place] [address] [place] [address] Referral ID Status Reason Start Date Expiration Date Visits Requested Visits Authorized [id number] Pending Review PCP Requested Referral Auto-Generate d Referral 11/08/2021 02/06/2022 1 1 Referral ID Status Reason Start Date Expiration Date Visits Re quested Visits Authorized [id number] Closed 1 1 Specialty Diagnoses / Procedures Referred By Divineskylar t Referred To Contact MR IMAGING Diagnoses Seizure disorder (HCC) Procedures MRI BRAIN WO IVCON MRI BRAIN BRAIN STEM W/O CONTRAST MATERIAL Leanna Owens MD [address] [facility] [place] [address] Mr Imaging Referral ID Status Reason Start Date Expiration Date Visits Requested Visits Authorized [id number] Pending Review Auto-Generat ed Referral 02/14/2022 03/16/2023 1 1 Specialty Diagnoses / Procedures Referred By Divineac t Referred To Contact Ranjit Azar DO [address] [place] [address] Referral ID Status Reason Start Date Expiration Date Visits Re quested Visits Authorized [id number] Closed 1 1 Referral ID Status Reason Start Date Expiration Date Visits Re quested Visits Authorized [id number] Closed 1 1 Specialty Diagnoses / Procedures Referred By Divineac t Referred To Contact MR IMAGING Diagnoses Nonintractable epilepsy without status epilepticus, unspecified epilepsy type (HCC) Procedures MRI BRAIN WO IVCON MRI BRAIN BRAIN STEM W/O CONTRAST MATERIAL Leanna Owens MD [address] [place] [address] Mr Imaging Referral ID Status Reason Start Date Expiration Date Visits Requested Visits Authorized [id number] Additional Clinical Info Needed Auto-Generat ed Referral 01/06/2023 02/05/2024 1 1 Specialty Diagnoses / Procedures Referred By Rolf heard Referred To Contact MR IMAGING Diagnoses Nonintractable epilepsy without status epilepticus, unspecified epilepsy type (HCC) Procedures MRI BRAIN WO IVCON MRI BRAIN BRAIN STEM W/O CONTRAST MATERIAL Leanna Owens MD [address] [place] [address] [facility] [place] [address] Referral ID Status Reason Start Date Expiration Date V isits Requested Visits Authorized [id number] Closed Auto-Generate d Referral 01/09/2023 03/10/2023 1 1 Referral ID Status Reason Start Date Expiration Date Visits Re quested Visits Authorized [id number] Closed 1 1 Referral ID Status Reason Start Date Expiration Date Visits Re quested Visits Authorized [id number] Closed 1 1 Specialty Diagnoses / Procedures Referred By Rolf heard Referred To Contact Diagnoses Type 2 diabetes mellitus with diabetic neuropathy, with long-term current use of insulin (HCC) Ranjit Azar, DO [address] [place] [address] Referral ID Status Reason Start Date Expiration Date Visits Re quested Visits Authorized [id number] Closed 1 1 Referral ID Status Reason Start Date Expiration Date Visits Re quested Visits Authorized [id number] Closed 1 1 Specialty Diagnoses / Procedures Referred By Rolf heard Referred To Contact Nutrition Diagnoses Type 2 diabetes mellitus with diabetic neuropathy, with long-term current use of insulin (HCC) Procedures CONSULT TO NUTRITION THERAPY MEDICAL NUTRITION ASSMT&IVNTJ INDIV EACH 15 [facility] MEDICAL NUTRITION ASSMT&IVNTJ INDIV EACH 15 [facility] MEDICAL NUTRITION ASSMT&IVNTJ INDIV EACH 15 [facility] NUTRITION ASSMT&IVNTJ INDIV EACH 15 [facility] Ranjit Azar, DO [address] [place] [address] Referral ID Status Reason Start Date Expiration Date Visits Requested Visits Authorized [id number] Authorized PCP Requested Referral 3 04/02/2024 1 1 Specialty Diagnoses / Procedures Referred By Rolf t Referred To Contact Diagnoses Type 2 diabetes mellitus with diabetic neuropathy, with long-term current use of insulin (HCC) Type 2 diabetes mellitus without complication, with long-term current use of insulin (HCC) Love Nguyen APRN.WARRANTY CLERK [address] [place] [address] Referral ID Status Reason Start Date Expiration Date V isits Requested Visits Authorized [id number] Authorized 06/19/2024 06/19/2025 1 1 Specialty Diagnoses / Procedures Referred By Contac t Referred To Contact [facility] Diagnoses Seizure disorder ([facility]) Procedures CONSULT TO NEUROLOGY OFFICE/OUTPATIENT [facility] [place] 60 MINUTES Love Nguyen APRN.WARRANTY CLERK [address] [place] [address] Neurological [place] [address] [place] [address] Referral ID Status Reason Start Date Expiration Date Visits Requested Visits Authorized [id number] Pending Review OON/Self Pay Override 06/19/2024 06/19/2025 1 1 Specialty Diagnoses / Procedures Referred By Contac t Referred To Contact Diagnoses Other migraine without status migrainosus, not intractable Love Nguyen APRN.WARRANTY CLERK [address] [place] [address] Referral ID Status Reason Start Date Expiration Date Visits Re quested Visits Authorized [id number] Closed 1 1 Referral ID Status Reason Start Date Expiration Date V isits Requested Visits Authorized [id number] Authorized 06/19/2024 06/19/2025 1 1 Assessments Diagnosis Chest pain, unspecified type PILAR (obstructive sleep apnea) Obstructive sleep apnea (adult) (pediatric) Non-adherence to medical treatment Encounter for pre-operative cardiovascular clearance Pre-operative cardiovascular examination Diagnosis Osteomyelitis of mandible Osteomyelitis (HCC) Unspecified osteomyelitis, site unspecified Acute osteomyelitis of mandible Acute osteomyelitis, other specified site Hospital Course Note Physician Discharge Summary Patient ID: Victor Hugo Asif [id number] y.o. 1985 Admit date: 12/30/2019 Discharge date and time: 01/01/2020 Admitting Physician: Gama Ludwig MD Discharge Physician: Oziel Admission Diagnoses: Osteomyelitis of mandible [M27.2] Osteomyelitis of mandible [M27.2] Osteomyelitis (HCC) [M86.9] Discharge Diagnoses: Manbdibular osteomyelitis Procedures: Excisional debridement of mandible, Extraction of 2 molars Left mandible Admission Condition: good Discharged Condition: good Indication for Admission: s/p tooth extraction and mandibular plate reinforcement Hospital Course: patient had an inconsequential post op course, ID was consulted to recommended abx and he was deemed stable for DC Consults: ID Significant Diagnostic Studies: microbiology: bone culture Treatments: antibiotics: ertapenem Discharge Exam: BP (!) 140/93 Pulse 97 Temp 97.9 ?F (36.6 ?C) (Temporal) Resp 20 Ht 5' 5 (1.651 m) Wt 234 lb (106.1 kg) SpO2 98% BMI 38.94 kg/m? Gener (more content not included)... Chief Complaint and Reason for Visit Chief Complaint PAIN TO GROIN Chief Complaint PAIN TO GROIN FALL Chief Complaint COUGH Chief Complaint ABSCESS Seizure Reason for Visit Breakthrough seizure Elevated serum creatinine Generalized tonic-clonic seizure [place] coma scale score 3-8, at arrival to emergency department Sinus tachycardia seen on gambling monitor HTN (hypertension) Seizure Chief Complaint ABSCESS Seizure Seizure Reason for Visit Breakthrough seizure Elevated serum creatinine Generalized tonic-clonic seizure [place] coma scale score 3-8, at arrival to emergency department Sinus tachycardia seen on gambling monitor HTN (hypertension) Chief Complaint Seizure Seizure lower extrem Reason for Visit Generalized tonic-cl onic seizure [place] coma scale score 3-8, at arrival to emergency department HTN (hypertension) Breakthrough seizure Elevated serum creatinine Sinus tachycardia seen on gambling monitor Chief Complaint Admit Date NEURO January 21, 2025 11 :43am Chief Complaint Admit Date NEURO January 21, 2025 11 :43am CHEST PAIN March 04, 2025 2:58pm Reason for Visit Admit Date Chest pain March 04, 2025 2:58pm Chief Complaint Admit Date NEURO January 21, 2025 11 :43am CHEST PAIN March 04, 2025 2:58pm CHEST PAIN March 05, 2025 5: 16pm Health Concerns Infection Onset Date Last Indicated Resolved Time COVID-19 Rule-Out 09/03/2021 09/03/2021 09/03/2021 8:21 PM EDT Additional Source Comments (unrecognized sect ion and content) No Status Records FoundNo Status Records FoundNo Status Records FoundNo Status Records FoundNo Status Records FoundNo Status Records FoundNo Status Records Found INFORMATION SOURCE (unrecogn ized section and content) DATE CREATED AUTHOR 03/28/2018 [facility] DATE CREATED AUTHOR AUTHOR'S ORGANIZ ATION 03/28/2018 [facility] DATE CREATED AUTHOR AUTHOR'S ORGANIZ ATION 08/08/2019 [facility] DATE CREATED AUTHOR AUTHOR'S ORGANIZ ATION 02/19/2020 [facility] DATE CREATED AUTHOR AUTHOR'S ORGANIZ ATION 09/23/2021 [facility] DATE CREATED AUTHOR AUTHOR'S ORGANIZ ATION 03/14/2025 [facility] DATE CREATED AUTHOR AUTHOR'S ORGANIZ ATION 03/22/2025 [facility] Source Comments (unrecognize d section and content) In the event this informatio n is protected by the Federal Confidentiality of Alcohol and Drug Abuse Patient Records regulations: The Federal rules restrict any use of the information to criminally investigate or prosecute any alcohol or drug abuse patient.[facility] the event this information is protected by the Federal Confidentiality of Alcohol and Drug Abuse Patient Records regulations: The Federal rules restrict any use of the information to criminally investigate or prosecute any alcohol or drug abuse patient.[facility]In the event this information is protected by the Federal Confidentiality of Alcohol and Drug Abuse Patient Records regulations: The Federal rules restrict any use of the information to criminally investigate or prosecute any alcohol or drug abuse patient.[facility]In the event this information is protected by the Federal Confidentiality of Alcohol and Drug Abuse Patient Records regulations: The Federal rules restrict any use of the information to criminally investigate or prosecute any alcohol or drug abuse patient.[facility] HospitalIn the event this information is protected by the Federal Confidentiality of Alcohol and Drug Abuse Patient Records regulations: The Federal rules restrict any use of the information to criminally investigate or prosecute any alcohol or drug abuse patient.[facility]In the event this information is protected by the Federal Confidentiality of Alcohol and Drug Abuse Patient Records regulations: The Federal rules restrict any use of the information to criminally investigate or prosecute any alcohol or drug abuse patient.[facility]In the event this information is protected by the Federal Confidentiality of Alcohol and Drug Abuse Patient Records regulations: The Federal rules restrict any use of the information to criminally investigate or prosecute any alcohol or drug abuse patient.[facility] HospitalIn the event this information is protected by the Federal Confidentiality of Alcohol and Drug Abuse Patient Records regulations: The Federal rules restrict any use of the information to criminally investigate or prosecute any alcohol or drug abuse patient.[facility] HospitalIn the event this information is protected by the Federal Confidentiality of Alcohol and Drug Abuse Patient Records regulations: The Federal rules restrict any use of the information to criminally investigate or prosecute any alcohol or drug abuse patient.[facility] HospitalIn the event this information is protected by the Federal Confidentiality of Alcohol and Drug Abuse Patient Records regulations: The Federal rules restrict any use of the information to criminally investigate or prosecute any alcohol or drug abuse patient.[facility] HospitalIn the event this information is protected by the Federal Confidentiality of Alcohol and Drug Abuse Patient Records regulations: The Federal rules restrict any use of the information to criminally investigate or prosecute any alcohol or drug abuse patient.[facility] HospitalIn the event this information is protected by the Federal Confidentiality of Alcohol and Drug Abuse Patient Records regulations: The Federal rules restrict any use of the information to criminally investigate or prosecute any alcohol or drug abuse patient.[facility] HospitalIn the event this information is protected by the Federal Confidentiality of Alcohol and Drug Abuse Patient Records regulations: The Federal rules restrict any use of the information to criminally investigate or prosecute any alcohol or drug abuse patient.[facility] HospitalIn the event this information is protected by the Federal Confidentiality of Alcohol and Drug Abuse Patient Records regulations: The Federal rules restrict any use of the information to criminally investigate or prosecute any alcohol or drug abuse patient.[facility] HospitalIn the event this information is protected by the Federal Confidentiality of Alcohol and Drug Abuse Patient Records regulations: The Federal rules restrict any use of the information to criminally investigate or prosecute any alcohol or drug abuse patient.[facility] HospitalIn the event this information is protected by the Federal Confidentiality of Alcohol and Drug Abuse Patient Records regulations: The Federal rules restrict any use of the information to criminally investigate or prosecute any alcohol or drug abuse patient.[facility] HospitalIn the event this information is protected by the Federal Confidentiality of Alcohol and Drug Abuse Patient Records regulations: The Federal rules restrict any use of the information to criminally investigate or prosecute any alcohol or drug abuse patient.[facility] HospitalIn the event this information is protected by the Federal Confidentiality of Alcohol and Drug Abuse Patient Records regulations: The Federal rules restrict any use of the information to criminally investigate or prosecute any alcohol or drug abuse patient.[facility] HospitalIn the event this information is protected by the Federal Confidentiality of Alcohol and Drug Abuse Patient Records regulations: The Federal rules restrict any use of the information to criminally investigate or prosecute any alcohol or drug abuse patient.[facility] HospitalIn the event this information is protected by the Federal Confidentiality of Alcohol and Drug Abuse Patient Records regulations: The Federal rules restrict any use of the information to criminally investigate or prosecute any alcohol or drug abuse patient.[facility] HospitalIn the event this information is protected by the Federal Confidentiality of Alcohol and Drug Abuse Patient Records regulations: The Federal rules restrict any use of the information to criminally investigate or prosecute any alcohol or drug abuse patient.[facility] HospitalIn the event this information is protected by the Federal Confidentiality of Alcohol and Drug Abuse Patient Records regulations: The Federal rules restrict any use of the information to criminally investigate or prosecute any alcohol or drug abuse patient.[facility] HospitalIn the event this information is protected by the Federal Confidentiality of Alcohol and Drug Abuse Patient Records regulations: The Federal rules restrict any use of the information to criminally investigate or prosecute any alcohol or drug abuse patient.[facility] HospitalIn the event this information is protected by the Federal Confidentiality of Alcohol and Drug Abuse Patient Records regulations: The Federal rules restrict any use of the information to criminally investigate or prosecute any alcohol or drug abuse patient.[facility] HospitalIn the event this information is protected by the Federal Confidentiality of Alcohol and Drug Abuse Patient Records regulations: The Federal rules restrict any use of the information to criminally investigate or prosecute any alcohol or drug abuse patient.[facility] HospitalIn the event this information is protected by the Federal Confidentiality of Alcohol and Drug Abuse Patient Records regulations: The Federal rules restrict any use of the information to criminally investigate or prosecute any alcohol or drug abuse patient.[facility] HospitalIn the event this information is protected by the Federal Confidentiality of Alcohol and Drug Abuse Patient Records regulations: The Federal rules restrict any use of the information to criminally investigate or prosecute any alcohol or drug abuse patient.[facility] HospitalIn the event this information is protected by the Federal Confidentiality of Alcohol and Drug Abuse Patient Records regulations: The Federal rules restrict any use of the information to criminally investigate or prosecute any alcohol or drug abuse patient.[facility] HospitalIn the event this information is protected by the Federal Confidentiality of Alcohol and Drug Abuse Patient Records regulations: The Federal rules restrict any use of the information to criminally investigate or prosecute any alcohol or drug abuse patient.[facility] HospitalIn the event this information is protected by the Federal Confidentiality of Alcohol and Drug Abuse Patient Records regulations: The Federal rules restrict any use of the information to criminally investigate or prosecute any alcohol or drug abuse patient.[facility] HospitalIn the event this information is protected by the Federal Confidentiality of Alcohol and Drug Abuse Patient Records regulations: The Federal rules restrict any use of the information to criminally investigate or prosecute any alcohol or drug abuse patient.[facility] HospitalIn the event this information is protected by the Federal Confidentiality of Alcohol and Drug Abuse Patient Records regulations: The Federal rules restrict any use of the information to criminally investigate or prosecute any alcohol or drug abuse patient.[facility] HospitalIn the event this information is protected by the Federal Confidentiality of Alcohol and Drug Abuse Patient Records regulations: The Federal rules restrict any use of the information to criminally investigate or prosecute any alcohol or drug abuse patient.[facility] HospitalIn the event this information is protected by the Federal Confidentiality of Alcohol and Drug Abuse Patient Records regulations: The Federal rules restrict any use of the information to criminally investigate or prosecute any alcohol or drug abuse patient.[facility] HospitalIn the event this information is protected by the Federal Confidentiality of Alcohol and Drug Abuse Patient Records regulations: The Federal rules restrict any use of the information to criminally investigate or prosecute any alcohol or drug abuse patient.[facility] HospitalIn the event this information is protected by the Federal Confidentiality of Alcohol and Drug Abuse Patient Records regulations: The Federal rules restrict any use of the information to criminally investigate or prosecute any alcohol or drug abuse patient.[facility] HospitalIn the event this information is protected by the Federal Confidentiality of Alcohol and Drug Abuse Patient Records regulations: The Federal rules restrict any use of the information to criminally investigate or prosecute any alcohol or drug abuse patient.[facility] HospitalIn the event this information is protected by the Federal Confidentiality of Alcohol and Drug Abuse Patient Records regulations: The Federal rules restrict any use of the information to criminally investigate or prosecute any alcohol or drug abuse patient.[facility] HospitalIn the event this information is protected by the Federal Confidentiality of Alcohol and Drug Abuse Patient Records regulations: The Federal rules restrict any use of the information to criminally investigate or prosecute any alcohol or drug abuse patient.[facility] HospitalIn the event this information is protected by the Federal Confidentiality of Alcohol and Drug Abuse Patient Records regulations: The Federal rules restrict any use of the information to criminally investigate or prosecute any alcohol or drug abuse patient.[facility] HospitalIn the event this information is protected by the Federal Confidentiality of Alcohol and Drug Abuse Patient Records regulations: The Federal rules restrict any use of the information to criminally investigate or prosecute any alcohol or drug abuse patient.[facility] HospitalIn the event this information is protected by the Federal Confidentiality of Alcohol and Drug Abuse Patient Records regulations: The Federal rules restrict any use of the information to criminally investigate or prosecute any alcohol or drug abuse patient.[facility] HospitalIn the event this information is protected by the Federal Confidentiality of Alcohol and Drug Abuse Patient Records regulations: The Federal rules restrict any use of the information to criminally investigate or prosecute any alcohol or drug abuse patient.[facility] HospitalIn the event this information is protected by the Federal Confidentiality of Alcohol and Drug Abuse Patient Records regulations: The Federal rules restrict any use of the information to criminally investigate or prosecute any alcohol or drug abuse patient.[facility] HospitalIn the event this information is protected by the Federal Confidentiality of Alcohol and Drug Abuse Patient Records regulations: The Federal rules restrict any use of the information to criminally investigate or prosecute any alcohol or drug abuse patient.[facility] HospitalIn the event this information is protected by the Federal Confidentiality of Alcohol and Drug Abuse Patient Records regulations: The Federal rules restrict any use of the information to criminally investigate or prosecute any alcohol or drug abuse patient.[facility] HospitalIn the event this information is protected by the Federal Confidentiality of Alcohol and Drug Abuse Patient Records regulations: The Federal rules restrict any use of the information to criminally investigate or prosecute any alcohol or drug abuse patient.[facility] HospitalIn the event this information is protected by the Federal Confidentiality of Alcohol and Drug Abuse Patient Records regulations: The Federal rules restrict any use of the information to criminally investigate or prosecute any alcohol or drug abuse patient.[facility] HospitalIn the event this information is protected by the Federal Confidentiality of Alcohol and Drug Abuse Patient Records regulations: The Federal rules restrict any use of the information to criminally investigate or prosecute any alcohol or drug abuse patient.[facility] HospitalIn the event this information is protected by the Federal Confidentiality of Alcohol and Drug Abuse Patient Records regulations: The Federal rules restrict any use of the information to criminally investigate or prosecute any alcohol or drug abuse patient.[facility] HospitalIn the event this information is protected by the Federal Confidentiality of Alcohol and Drug Abuse Patient Records regulations: The Federal rules restrict any use of the information to criminally investigate or prosecute any alcohol or drug abuse patient.[facility] HospitalIn the event this information is protected by the Federal Confidentiality of Alcohol and Drug Abuse Patient Records regulations: The Federal rules restrict any use of the information to criminally investigate or prosecute any alcohol or drug abuse patient.[facility] HospitalIn the event this information is protected by the Federal Confidentiality of Alcohol and Drug Abuse Patient Records regulations: The Federal rules restrict any use of the information to criminally investigate or prosecute any alcohol or drug abuse patient.[facility] HospitalIn the event this information is protected by the Federal Confidentiality of Alcohol and Drug Abuse Patient Records regulations: The Federal rules restrict any use of the information to criminally investigate or prosecute any alcohol or drug abuse patient.[facility] HospitalIn the event this information is protected by the Federal Confidentiality of Alcohol and Drug Abuse Patient Records regulations: The Federal rules restrict any use of the information to criminally investigate or prosecute any alcohol or drug abuse patient.[facility] HospitalIn the event this information is protected by the Federal Confidentiality of Alcohol and Drug Abuse Patient Records regulations: The Federal rules restrict any use of the information to criminally investigate or prosecute any alcohol or drug abuse patient.[facility] HospitalIn the event this information is protected by the Federal Confidentiality of Alcohol and Drug Abuse Patient Records regulations: The Federal rules restrict any use of the information to criminally investigate or prosecute any alcohol or drug abuse patient.[facility] HospitalIn the event this information is protected by the Federal Confidentiality of Alcohol and Drug Abuse Patient Records regulations: The Federal rules restrict any use of the information to criminally investigate or prosecute any alcohol or drug abuse patient.[facility] HospitalIn the event this information is protected by the Federal Confidentiality of Alcohol and Drug Abuse Patient Records regulations: The Federal rules restrict any use of the information to criminally investigate or prosecute any alcohol or drug abuse patient.[facility] HospitalIn the event this information is protected by the Federal Confidentiality of Alcohol and Drug Abuse Patient Records regulations: The Federal rules restrict any use of the information to criminally investigate or prosecute any alcohol or drug abuse patient.[facility] HospitalIn the event this information is protected by the Federal Confidentiality of Alcohol and Drug Abuse Patient Records regulations: The Federal rules restrict any use of the information to criminally investigate or prosecute any alcohol or drug abuse patient.[facility] HospitalIn the event this information is protected by the Federal Confidentiality of Alcohol and Drug Abuse Patient Records regulations: The Federal rules restrict any use of the information to criminally investigate or prosecute any alcohol or drug abuse patient.[facility] HospitalIn the event this information is protected by the Federal Confidentiality of Alcohol and Drug Abuse Patient Records regulations: The Federal rules restrict any use of the information to criminally investigate or prosecute any alcohol or drug abuse patient.[facility] HospitalIn the event this information is protected by the Federal Confidentiality of Alcohol and Drug Abuse Patient Records regulations: The Federal rules restrict any use of the information to criminally investigate or prosecute any alcohol or drug abuse patient.[facility] HospitalIn the event this information is protected by the Federal Confidentiality of Alcohol and Drug Abuse Patient Records regulations: The Federal rules restrict any use of the information to criminally investigate or prosecute any alcohol or drug abuse patient.[facility] HospitalIn the event this information is protected by the Federal Confidentiality of Alcohol and Drug Abuse Patient Records regulations: The Federal rules restrict any use of the information to criminally investigate or prosecute any alcohol or drug abuse patient.[facility] HospitalIn the event this information is protected by the Federal Confidentiality of Alcohol and Drug Abuse Patient Records regulations: The Federal rules restrict any use of the information to criminally investigate or prosecute any alcohol or drug abuse patient.[facility] HospitalIn the event this information is protected by the Federal Confidentiality of Alcohol and Drug Abuse Patient Records regulations: The Federal rules restrict any use of the information to criminally investigate or prosecute any alcohol or drug abuse patient.[facility] HospitalIn the event this information is protected by the Federal Confidentiality of Alcohol and Drug Abuse Patient Records regulations: The Federal rules restrict any use of the information to criminally investigate or prosecute any alcohol or drug abuse patient.[facility] HospitalIn the event this information is protected by the Federal Confidentiality of Alcohol and Drug Abuse Patient Records regulations: The Federal rules restrict any use of the information to criminally investigate or prosecute any alcohol or drug abuse patient.[facility] HospitalIn the event this information is protected by the Federal Confidentiality of Alcohol and Drug Abuse Patient Records regulations: The Federal rules restrict any use of the information to criminally investigate or prosecute any alcohol or drug abuse patient.[facility] HospitalIn the event this information is protected by the Federal Confidentiality of Alcohol and Drug Abuse Patient Records regulations: The Federal rules restrict any use of the information to criminally investigate or prosecute any alcohol or drug abuse patient.[facility] HospitalIn the event this information is protected by the Federal Confidentiality of Alcohol and Drug Abuse Patient Records regulations: The Federal rules restrict any use of the information to criminally investigate or prosecute any alcohol or drug abuse patient.[facility] HospitalIn the event this information is protected by the Federal Confidentiality of Alcohol and Drug Abuse Patient Records regulations: The Federal rules restrict any use of the information to criminally investigate or prosecute any alcohol or drug abuse patient.[facility] HospitalIn the event this information is protected by the Federal Confidentiality of Alcohol and Drug Abuse Patient Records regulations: The Federal rules restrict any use of the information to criminally investigate or prosecute any alcohol or drug abuse patient.[facility] HospitalIn the event this information is protected by the Federal Confidentiality of Alcohol and Drug Abuse Patient Records regulations: The Federal rules restrict any use of the information to criminally investigate or prosecute any alcohol or drug abuse patient.[facility] HospitalIn the event this information is protected by the Federal Confidentiality of Alcohol and Drug Abuse Patient Records regulations: The Federal rules restrict any use of the information to criminally investigate or prosecute any alcohol or drug abuse patient.[facility] HospitalIn the event this information is protected by the Federal Confidentiality of Alcohol and Drug Abuse Patient Records regulations: The Federal rules restrict any use of the information to criminally investigate or prosecute any alcohol or drug abuse patient.[facility] HospitalIn the event this information is protected by the Federal Confidentiality of Alcohol and Drug Abuse Patient Records regulations: The Federal rules restrict any use of the information to criminally investigate or prosecute any alcohol or drug abuse patient.[facility] HospitalIn the event this information is protected by the Federal Confidentiality of Alcohol and Drug Abuse Patient Records regulations: The Federal rules restrict any use of the information to criminally investigate or prosecute any alcohol or drug abuse patient.[facility] HospitalIn the event this information is protected by the Federal Confidentiality of Alcohol and Drug Abuse Patient Records regulations: The Federal rules restrict any use of the information to criminally investigate or prosecute any alcohol or drug abuse patient.[facility] HospitalIn the event this information is protected by the Federal Confidentiality of Alcohol and Drug Abuse Patient Records regulations: The Federal rules restrict any use of the information to criminally investigate or prosecute any alcohol or drug abuse patient.[facility] HospitalIn the event this information is protected by the Federal Confidentiality of Alcohol and Drug Abuse Patient Records regulations: The Federal rules restrict any use of the information to criminally investigate or prosecute any alcohol or drug abuse patient.[facility] HospitalIn the event this information is protected by the Federal Confidentiality of Alcohol and Drug Abuse Patient Records regulations: The Federal rules restrict any use of the information to criminally investigate or prosecute any alcohol or drug abuse patient.[facility] HospitalIn the event this information is protected by the Federal Confidentiality of Alcohol and Drug Abuse Patient Records regulations: The Federal rules restrict any use of the information to criminally investigate or prosecute any alcohol or drug abuse patient.[facility] HospitalIn the event this information is protected by the Federal Confidentiality of Alcohol and Drug Abuse Patient Records regulations: The Federal rules restrict any use of the information to criminally investigate or prosecute any alcohol or drug abuse patient.[facility] HospitalIn the event this information is protected by the Federal Confidentiality of Alcohol and Drug Abuse Patient Records regulations: The Federal rules restrict any use of the information to criminally investigate or prosecute any alcohol or drug abuse patient.[facility] HospitalIn the event this information is protected by the Federal Confidentiality of Alcohol and Drug Abuse Patient Records regulations: The Federal rules restrict any use of the information to criminally investigate or prosecute any alcohol or drug abuse patient.[facility] Reason for Visit (unrecogniz ed section and content) Reason Comments Seizures Specialty Diagnoses / Procedures Referred By Rolf t Referred To Contact Neurology / EPILEPSY Diagnoses Well adult exam Trying to go for .you license Procedures MYC SPECIALIST OFFICE VISIT Self Leanna Owens MD [address] [place] [address] Phone: tel: fax: Referral ID Status Reason Start Date Expiration Date Visits Re quested Visits Authorized [id number] Closed 12/20/2024 06/04/2025 1 1 Reason Comments Pre-Op Visit Reason Comments Informed Consent IRB [id number] Reason Onset Date Comments Transition Of Care 09/08/2021 (TCM), [facility]C, 09-07-2021, TCM INITIAL OUTREACH, 1st ATTEMPT,, LVM Reason Comments Patient Update Reason Comments Hiccups Reason Comments Hospital Follow Up Reason Comments Appointment Reason Comments Medication Request Reason Onset Date Comments Refill Request 09/30/2021 Reason Comments Follow Up Reason Comments Insurance Authorization Reason Comments Follow Up Injection Followup Reason Comments Consult Joint Pain Specialty Diagnoses / Procedures Referred By Rolf t Referred To Contact Rheumatology Diagnoses Arthritis of foot Procedures CONSULT TO RHEUM/IMMUN DISEASE OFFICE/OUTPATIENT SELECT AT [place] 60-74 MINUTES Ray Yanez [address] [place] [address] Referral ID Status Reason Start Date Expiration Date V isits Requested Visits Authorized [id number] Closed PCP Requested Referral 09/30/2021 09/30/2022 1 1 Reason Comments Results Reason Comments PT Eval Patient Education Specialty Diagnoses / Procedures Referred By Contskylar t Referred To Contact [facility] Diagnoses Arthritis of foot Polyarthralgia Chronic pain of both ankles Limited joint range of motion (ROM) Procedures CONSULT TO PHYSICAL THERAPY PHYSICAL THERAPY EVALUATION HIGH COMPLEX 45 MINS Lenora Caldwell PA-C [address] [place] [id number] [facility] [place] [id number] Referral ID Status Reason Start Date Expiration Date V isits Requested Visits Authorized [id number] Closed Auto-Generate d Referral 10/26/2021 01/26/2022 1 1 Reason Comments Appointment Cancelled Reason Comments Dizziness and lightheaded star paul 3 weeks ago, states happens alot while working has to hussle and go up and down stairs and in and out of different temp rooms Reason Comments Results Reason Comments Spirometry Specialty Diagnoses / Procedures Referred By Divineac t Referred To [facility] RESPIRATORY INTERVALE Diagnoses Severe persistent asthma without complication Procedures NITRIC OXIDE, EXHALED NITRIC OXIDE GAS DETERMINATION Erika Gallagher MD [address] [address] Referral ID Status Reason Start Date Expiration Date V isits Requested Visits Authorized [id number] Closed Auto-Generate d Referral 02/03/2022 09/02/2022 1 1 Specialty Diagnoses / Procedures Referred By Rolf t Referred To [facility] RESPIRATORY INTERVALE Diagnoses Severe persistent asthma without complication Procedures SPIROMETRY - BASELINE AND POST DILATOR BRNCDILAT RSPSE SPMTRY PRE&POST-BRNCDILAT ADMErika Canseco MD [address] [address] Referral ID Status Reason Start Date Expiration Date V isits Requested Visits Authorized [id number] Closed Auto-Generate d Referral 02/03/2022 09/02/2022 1 1 Reason Comments medication clarification Reason Comments Refill Request Reason Comments Seizures Reason Comments Schedule Surgery Reason Onset Date Comments Refill Request 04/05/2022 Reason Onset Date Comments Refill Request 04/08/2022 Reason Onset Date Comments Refill Request 05/09/2022 Reason Onset Date Comments Refill Request 06/03/2022 Reason Comments New Pain Reason Comments Rejected CMN Reason Onset Date Comments Refill Request 09/23/2022 Reason Onset Date Comments Refill Request 09/26/2022 Reason Onset Date Comments Refill Request 12/08/2022 Reason Comments Radiology MRI Specialty Diagnoses / Procedures Referred By Rolf t Referred To Contact [facility] IMAGING Diagnoses Nonintractable epilepsy without status epilepticus, unspecified epilepsy type (HCC) Procedures MRI BRAIN WO IVCON MRI BRAIN BRAIN STEM W/O CONTRAST MATERIAL Leanna Owens MD [address] [place] [id number] [facility] [place] [address] Referral ID Status Reason Start Date Expiration Date V isits Requested Visits Authorized [id number] Closed Auto-Generate d Referral 01/09/2023 03/10/2023 1 1 Reason Comments Tens Unit Reason Comments F/U 3 Month Reason Comments New Primary Care Pharmacy Appt. Reason Comments Medication Question Reason Comments Medication Follow-up Reason Onset Date Comments Refill Request 03/13/2023 Reason Comments Insurance Authorization [place] Reason Comments Medication Problem Reason Comments Diabetes Reason Onset Date Comments Refill Request 04/07/2023 Reason Comments Missed Appointment Reason Onset Date Comments Refill Request 10/30/2023 Reason Onset Date Comments Refill Request 02/03/2024 Reason Comments Physical Follow up DM, pt rep orts he's not taking any medications on his med list for over a year, reports he needs consult to neuro for his seizure disorder Specialty Diagnoses / Procedures Referred By Rolf heard Referred To Contact FAMILY MEDICINE Diagnoses physical Procedures physical Ranjit Azar DO [address] [place] [address] [facility] [address] [place] [address] Referral ID Status Reason Start Date Expiration Date Visits Requested Visits Authorized [id number] New Request OON/Self Pay Override 06/12/2024 09/20/2025 1 1 Reason Onset Date Comments Refill Request 01/21/2025 Reason Comments F/U 6 Month Specialty Diagnoses / Procedures Referred By Rolf t Referred To Contact FAMILY MEDICINE Diagnoses physical Procedures physical Ranjit Azar DO [address] [place] [address] Phone: tel: fax: [facility] [address] [facility] [place] [address] Phone: tel: Referral ID Status Reason Start Date Expiration Date Visits Requested Visits Authorized [id number] New Request OON/Self Pay Override 06/12/2024 09/20/2025 10 10 Reason Comments Insurance Authorization [facility] Care Teams (unrecognized sec tion and content) Outside Sales Account Executive Relationship Specialty Start Date End Date Ranjit Azar DO [address] [facility] [place] [address] PCP - General Family Practice 07/12/12 [facility] [address] [facility] [place] [address] Pharmacist Pharmacy 10/24/19 [facility] [address] [facility] [place] [address] Pharmacist Pharmacy 12/29/20 Outside Sales Account Executive Relationship Specialty Start Date End Date aRnjit Azar DO [address] [facility] [place] [address] PCP - General Family Practice 07/12/12 [facility] [address] [facility] [place] [address] Pharmacist Pharmacy 10/24/19 [facility] [address] [facility] [place] [address] Pharmacist Pharmacy 12/29/20 Outside Sales Account Executive Relationship Specialty Start Date End Date Ranjit Azar DO [address] [facility] [place] [address] PCP - General Family Practice 07/12/12 [facility] [address] [place] [address] Pharmacist Pharmacy 10/24/19 Ani Carson, [facility] [address] [place] [address] Pharmacist Pharmacy 12/29/20 Outside Sales Account Executive Relationship Specialty Start Date End Date Ranjit Azar, DO [address] [place] [address] PCP - General Family Practice 07/12/12 Patricia Tran, [facility] [address] [place] [address] Pharmacist Pharmacy 10/24/19 Ani Carson, [facility] [address] [place] [address] Pharmacist Pharmacy 12/29/20 Nancy Lopez, [employer] Hydro Technician 09/08/21 10/08/21 Outside Sales Account Executive Relationship Specialty Start Date End Date Ranjit Azar, DO [address] [place] [address] PCP - General Family Practice 07/12/12 Patricia Tran, [facility] [address] [place] [address] Pharmacist Pharmacy 10/24/19 Ani Carson, [facility] [address] [place] [address] Pharmacist Pharmacy 12/29/20 Nancy Lopez, kilnman Hydro Technician 09/08/21 10/08/21 Outside Sales Account Executive Relationship Specialty Start Date End Date Ranjit Azar, DO [address] [place] [address] PCP - General Family Practice 07/12/12 Patricia Tran, [facility] [address] [place] [address] Pharmacist Pharmacy 10/24/19 OrchardAni, [facility] [address] [place] [address] Pharmacist Pharmacy 12/29/20 Nancy Lopez, [employer]man Hydro Technician 09/08/21 10/08/21 Outside Sales Account Executive Relationship Specialty Start Date End Date Ranjit Azar, DO [address] [place] [address] PCP - General Family Practice 07/12/12 Jacobblake Patricia, [facility] [address] [place] [address] Pharmacist Pharmacy 10/24/19 Orchard, Ani, [facility] [address] [place] [address] Pharmacist Pharmacy 12/29/20 Nancy Lopez, kil[employer]man Hydro Technician 09/08/21 09/20/21 Outside Sales Account Executive Relationship Specialty Start Date End Date Ranjit Azar, DO [address] [place] [address] PCP - General Family Practice 07/12/12 JacobPatricia lozano, [facility] [address] [place] [address] Pharmacist Pharmacy 10/24/19 Orchard, Ani, [facility] [address] [place] [address] Pharmacist Pharmacy 12/29/20 Nancy Lopez, kil[employer]man Hydro Technician 09/08/21 09/20/21 Outside Sales Account Executive Relationship Specialty Start Date End Date Ranjit Azar, DO [address] [place] [address] PCP - General Family Practice 07/12/12 Robert Patricia, [facility] [address] [place] [address] Pharmacist Pharmacy 10/24/19 Ani Carson, [facility] [address] [place] [address] Pharmacist Pharmacy 12/29/20 Outside Sales Account Executive Relationship Specialty Start Date End Date Ranjit Azar, DO [address] [place] [address] PCP - General Family Practice 07/12/12 Robert Reneemajor, [facility] [address] [place] [address] Pharmacist Pharmacy 10/24/19 Ani Carson, [facility] [address] [place] [address] Pharmacist Pharmacy 12/29/20 Outside Sales Account Executive Relationship Specialty Start Date End Date Ranjit Azar, DO [address] [place] [address] PCP - General Family Practice 07/12/12 Patricia Tran, [facility] [address] [place] [address] Pharmacist Pharmacy 10/24/19 Ani Carson, [facility] [address] [place] [address] Pharmacist Pharmacy 12/29/20 Outside Sales Account Executive Relationship Specialty Start Date End Date Ranjit Azar, DO [address] [place] [address] PCP - General Family Practice 07/12/12 Robert Reneemajor, [facility] [address] [place] [address] Pharmacist Pharmacy 10/24/19 Ani Carson, [facility] [address] [place] [address] Pharmacist Pharmacy 12/29/20 Outside Sales Account Executive Relationship Specialty Start Date End Date Ranjit Azar, DO [address] [place] [address] PCP - General Family Practice 07/12/12 Patricia Tran, [facility] [address] [place] [address] Pharmacist Pharmacy 10/24/19 [facility] [address] [place] [address] Pharmacist Pharmacy 12/29/20 Outside Sales Account Executive Relationship Specialty Start Date End Date Ranjit Azar, DO [address] [place] [address] PCP - General Family Practice 07/12/12 Jacobblake Patricia, [facility] [address] [place] [address] Pharmacist Pharmacy 10/24/19 Ani Carson, [facility] [address] [place] [address] Pharmacist Pharmacy 12/29/20 Outside Sales Account Executive Relationship Specialty Start Date End Date Ranjit Azar, DO [address] [place] [address] PCP - General Family Practice 07/12/12 Patricia Tran, [facility] [address] [place] [address] Pharmacist Pharmacy 10/24/19 Ani Carson, [facility] [address] [place] [address] Pharmacist Pharmacy 12/29/20 Outside Sales Account Executive Relationship Specialty Start Date End Date Ranjit Azar, DO [address] [place] [address] PCP - General Family Practice 07/12/12 JacobPatricia lozano, [facility] [address] [place] [address] Pharmacist Pharmacy 10/24/19 Orchard, Ani, [facility] [address] [place] [address] Pharmacist Pharmacy 12/29/20 Outside Sales Account Executive Relationship Specialty Start Date End Date Ranjit Azar, DO [address] [place] [address] PCP - General Family Practice 07/12/12 JacobPatricia lozano, [facility] [address] [place] [address] Pharmacist Pharmacy 10/24/19 Kenya Carsonily, [facility] [address] [place] [address] Pharmacist Pharmacy 12/29/20 Outside Sales Account Executive Relationship Specialty Start Date End Date Ranjit Azar DO [address] [place] [address] PCP - General Family Practice 07/12/12 JacobPatricia lozano, [facility] [address] [place] [address] Pharmacist Pharmacy 10/24/19 Alli Ani, [facility] [address] [place] [address] Pharmacist Pharmacy 12/29/20 Outside Sales Account Executive Relationship Specialty Start Date End Date Ranjit Azar DO [address] [place] [address] PCP - General Family Practice 07/12/12 RobertPatricia, [facility] [address] [place] [address] Pharmacist Pharmacy 10/24/19 Ani Carson, [facility] [address] [place] [address] Pharmacist Pharmacy 12/29/20 Outside Sales Account Executive Relationship Specialty Start Date End Date Ranjit Azar, DO [address] [place] [address] PCP - General Family Practice 07/12/12 JacobPatricia lozano, [facility] [address] [place] [address] Pharmacist Pharmacy 10/24/19 Alli, Ani, [facility] [address] [place] [address] Pharmacist Pharmacy 12/29/20 Outside Sales Account Executive Relationship Specialty Start Date End Date Ranjit Azar, DO [address] [place] [address] PCP - General Family Practice 07/12/12 JacobPatricia lozano, [facility] [address] [place] [address] Pharmacist Pharmacy 10/24/19 Orchard, Ani, [facility] [address] [place] [address] Pharmacist Pharmacy 12/29/20 Outside Sales Account Executive Relationship Specialty Start Date End Date Ranjit Azar, DO [address] [place] [address] PCP - General Family Practice 07/12/12 JacobPatricia lozano, [facility] [address] [place] [address] Pharmacist Pharmacy 10/24/19 Alli, Ani, [facility] [address] [place] [address] Pharmacist Pharmacy 12/29/20 Outside Sales Account Executive Relationship Specialty Start Date End Date Ranjit Azar, DO [address] [place] [address] PCP - General Family Practice 07/12/12 Patricia Tran, [facility] [address] [place] [address] Pharmacist Pharmacy 10/24/19 Kenya Carsonily, [facility] [address] [place] [address] Pharmacist Pharmacy 12/29/20 Outside Sales Account Executive Relationship Specialty Start Date End Date Ranjit Azar, DO [address] [place] [address] PCP - General Family Practice 07/12/12 Jacobblake Patricia, [facility] [address] [place] [address] Pharmacist Pharmacy 10/24/19 Kenya Carsonily, [facility] [address] [place] [address] Pharmacist Pharmacy 12/29/20 Outside Sales Account Executive Relationship Specialty Start Date End Date Ranjit Azar, DO [address] [place] [address] PCP - General Family Practice 07/12/12 Patricia Tran, [facility] [address] [place] [address] Pharmacist Pharmacy 10/24/19 Ani Carson, [facility] [address] [place] [address] Pharmacist Pharmacy 12/29/20 Outside Sales Account Executive Relationship Specialty Start Date End Date Ranjit Azar, DO [address] [place] [address] PCP - General Family Practice 07/12/12 Patricia Tran, [facility] [address] [place] [address] Pharmacist Pharmacy 10/24/19 Orchard, Ani, [facility] [address] [place] [address] Pharmacist Pharmacy 12/29/20 Outside Sales Account Executive Relationship Specialty Start Date End Date Ranjit Azar, DO [address] [place] [address] PCP - General Family Medicine 07/12/12 JacobPatricia lozano, [facility] [address] [place] [address] Pharmacist Pharmacy 10/24/19 Ani Carson, [facility] [address] [place] [address] Pharmacist Pharmacy 12/29/20 Nancy Lopez, kilnman Hydro Technician 09/08/21 09/20/21 Outside Sales Account Executive Relationship Specialty Start Date End Date Ranjit Azar, DO [address] [place] [address] PCP - General Family Medicine 07/12/12 RobertPatricia, [facility] [address] [place] [address] Pharmacist Pharmacy 10/24/19 Orchard, Ani, [facility] [address] [place] [address] Pharmacist Pharmacy 12/29/20 Outside Sales Account Executive Relationship Specialty Start Date End Date Ranjit Azar, DO [address] [place] [address] PCP - General Family Medicine 07/12/12 RobertReneemajor, [facility] [address] [place] [address] Pharmacist Pharmacy 10/24/19 Ani Carson, [facility] [address] [place] [address] Pharmacist Pharmacy 12/29/20 Outside Sales Account Executive Relationship Specialty Start Date End Date Ranjit Azar, DO [address] [place] [address] PCP - General Family Medicine 07/12/12 Patricia Tran, [facility] [address] [place] [address] Pharmacist Pharmacy 10/24/19 Ani Carson, [facility] [address] [place] [address] Pharmacist Pharmacy 12/29/20 Outside Sales Account Executive Relationship Specialty Start Date End Date Ranjit Azar, DO [address] [place] [address] PCP - General Family Medicine 07/12/12 Patricia Tran, [facility] [address] [place] [address] Pharmacist Pharmacy 10/24/19 Ani Carson, [facility] [address] [place] [address] Pharmacist Pharmacy 12/29/20 Outside Sales Account Executive Relationship Specialty Start Date End Date Ranjit Azar, DO [address] [place] [address] PCP - General Family Medicine 07/12/12 Patricia Tran, [facility] [address] [place] [address] Pharmacist Pharmacy 10/24/19 Ani Carson, [facility] [address] [place] [address] Pharmacist Pharmacy 12/29/20 Outside Sales Account Executive Relationship Specialty Start Date End Date Ranjit Azar DO [address] [place] [address] PCP - General Family Medicine 07/12/12 Patricia Tran, [facility] [address] [place] [address] Pharmacist Pharmacy 10/24/19 [facility] [address] [place] [address] Pharmacist Pharmacy 12/29/20 Outside Sales Account Executive Relationship Specialty Start Date End Date Ranjit Azar DO [address] [place] [address] PCP - General Family Medicine 07/12/12 JacobPatricia lozano, [facility] [address] [place] [address] Pharmacist Pharmacy 10/24/19 Alli Ani, [facility] [address] [place] [address] Pharmacist Pharmacy 12/29/20 Outside Sales Account Executive Relationship Specialty Start Date End Date Ranjit Azar DO [address] [place] [address] PCP - General Family Medicine 07/12/12 Patricia Tran, [facility] [address] [place] [address] Pharmacist Pharmacy 10/24/19 AlliAni, [facility] [address] [place] [address] Pharmacist Pharmacy 12/29/20 Team Status: Active Member Role Status Dates Dr. Ranjit Azar , DO Family Provider Active Dr. Ranjit Azar , DO Primary Care Provider Active Team Status: Inactive Member Role Status Dates Dr. Ranjit Azar DO Primary Care Provider Active Dr. Shakir Yates MD Emergency Provider Active Outside Sales Account Executive Relationship Specialty Start Date End Date Ranjit Azar DO [address] [place] [address] PCP - General Family Medicine 07/12/12 Patricia Tran, [facility] [address] [place] [address] Pharmacist Pharmacy 10/24/19 Ani Carson, [facility] [address] [place] [address] Pharmacist Pharmacy 12/29/20 Outside Sales Account Executive Relationship Specialty Start Date End Date Ranjit Azar DO [address] [place] [address] PCP - General Family Medicine 07/12/12 Patricia Tran, [facility] [address] [place] [address] Pharmacist Pharmacy 10/24/19 AlliAni, [facility] [address] [place] [address] Pharmacist Pharmacy 12/29/20 Outside Sales Account Executive Relationship Specialty Start Date End Date Ranjit Azar DO [address] [place] [address] PCP - General Family Medicine 07/12/12 Patricia Tran, [facility] [address] [place] [address] Pharmacist Pharmacy 10/24/19 AlliAni, [facility] [address] [place] [address] Pharmacist Pharmacy 12/29/20 Outside Sales Account Executive Relationship Specialty Start Date End Date Ranjit Azar DO [address] [place] [address] PCP - General Family Medicine 07/12/12 Patricia Tran, [facility] [address] [place] [address] Pharmacist Pharmacy 10/24/19 [facility] [address] [place] [address] Pharmacist Pharmacy 12/29/20 Outside Sales Account Executive Relationship Specialty Start Date End Date Ranjit Azar, [address] [place] [address] PCP - General Family Medicine 07/12/12 Patricia Tran, [facility] [address] [place] [address] Pharmacist Pharmacy 10/24/19 Alli Ani, [facility] [address] [place] [address] Pharmacist Pharmacy 12/29/20 Outside Sales Account Executive Relationship Specialty Start Date End Date Ranjit Azar, [address] [place] [address] PCP - General Family Medicine 07/12/12 Patricia Tran, [facility] [address] [place] [address] Pharmacist Pharmacy 10/24/19 Orchard, Ani, [facility] [address] [place] [address] Pharmacist Pharmacy 12/29/20 Outside Sales Account Executive Relationship Specialty Start Date End Date Rajnit Azar, [address] [place] [address] PCP - General Family Medicine 07/12/12 Patricia Tran, [facility] [address] [place] [address] Pharmacist Pharmacy 10/24/19 Ani Carson, [facility] [address] [place] [address] Pharmacist Pharmacy 12/29/20 Outside Sales Account Executive Relationship Specialty Start Date End Date Ranjit Azar DO [address] [place] [address] PCP - General Family Medicine 07/12/12 Patricia Tran, [facility] [address] [facility] [place] [address] Pharmacist Pharmacy 10/24/19 Ani Carson, [facility] [address] [facility] [place] [address] Pharmacist Pharmacy 12/29/20 Outside Sales Account Executive Relationship Specialty Start Date End Date Ranjit Azar DO [address] [place] [address] PCP - General Family Medicine 07/12/12 Patricia Tran, [facility] [address] [place] [address] Pharmacist Pharmacy 10/24/19 Ani Carson, [facility] [address] [facility] [place] [address] Pharmacist Pharmacy 12/29/20 Team Status: Inactive Member Role Status Dates Dr. Ranjit Azar DO Primary Care Provider Active Dr. Francisco Tan MD Attending Provider, Emergency Provider Active Team Status: Active Member Role Status Dates Dr. Ranjit Azar DO Primary Care Provider Active Dr. Jah Santiago MD Emergency Provider Active Dr. Hoa Haskins MD Admit Provider, Attending Prov ider Active Team Status: Active Member Role Status Dates Dr. Ranjit Azar DO Primary Care Provider Active Dr. Jah Santiago MD Emergency Provider Active Dr. Hoa Haskins MD Admit Provider, Other Provider Active Dr. Tyler Faulkner MD Attending Provider, Other Provi genet Active Team Status: Inactive Member Role Status Dates Dr. Ranjit Azar DO Primary Care Provider Active Dr. Jah Santiago MD Emergency Provider Active Dr. Hoa Haskins MD Admit Provider, Other Provider Active Dr. Tyler Faulkner MD Attending Provider Active Outside Sales Account Executive Relationship Specialty Start Date End Date Ranjit Azar DO [address] [place] [address] PCP - General Family Medicine 07/12/12 [facility] [address] [place] [address] Pharmacist Pharmacy 10/24/19 Ani Carson, [facility] [address] [place] [address] Pharmacist Pharmacy 12/29/20 Outside Sales Account Executive Relationship Specialty Start Date End Date Ranjit Azar DO [address] [place] [address] PCP - General Family Medicine 07/12/12 [facility] [address] [place] [address] Pharmacist Pharmacy 10/24/19 Kenya Carsonily, [facility] [address] [place] [address] Pharmacist Pharmacy 12/29/20 Outside Sales Account Executive Relationship Specialty Start Date End Date Ranjit Azar DO [address] [place] [address] PCP - General Family Medicine 07/12/12 Patricia Tran, [facility] [address] [place] [address] Pharmacist Pharmacy 10/24/19 Ani Carson, [facility] [address] [place] [address] Pharmacist Pharmacy 12/29/20 Outside Sales Account Executive Relationship Specialty Start Date End Date Ranjit Azar DO [address] [place] [address] PCP - General Family Medicine 07/12/12 Patricia Tran, [facility] [address] [place] [address] Pharmacist Pharmacy 10/24/19 Ani Carson, [facility] [address] [place] [address] Pharmacist Pharmacy 12/29/20 Outside Sales Account Executive Relationship Specialty Start Date End Date Ranjit Azar DO [address] [place] [address] PCP - General Family Medicine 07/12/12 Patricia Tran, [facility] [address] [place] [address] Pharmacist Pharmacy 10/24/19 Ani Carson, [facility] [address] [place] [address] Pharmacist Pharmacy 12/29/20 Outside Sales Account Executive Relationship Specialty Start Date End Date Ranjit Azar DO [address] [place] [address] PCP - General Family Medicine 07/12/12 Patricia Tran, [facility] [address] [place] [address] Pharmacist Pharmacy 10/24/19 Ani Carson, [facility] [address] [place] [address] Pharmacist Pharmacy 12/29/20 Outside Sales Account Executive Relationship Specialty Start Date End Date Ranjit Azar DO [address] [place] [address] PCP - General Family Medicine 07/12/12 Robert Patricia, [facility] [address] [place] [address] Pharmacist Pharmacy 10/24/19 Ani Carson, [facility] [address] [place] [address] Pharmacist Pharmacy 12/29/20 Outside Sales Account Executive Relationship Specialty Start Date End Date Ranjit Azar DO [address] [place] [address] PCP - General Family Medicine 07/12/12 Ani Carson, [facility] [address] [place] [address] Pharmacist Pharmacy 12/29/20 Outside Sales Account Executive Relationship Specialty Start Date End Date Ranjit Azar DO [address] [place] [address] PCP - General Family Medicine 07/12/12 Ani Carson, [facility] [address] [place] [address] Pharmacist Pharmacy 12/29/20 Outside Sales Account Executive Relationship Specialty Start Date End Date Ranjit Azar DO [address] [place] [address] PCP - General Family Medicine 07/12/12 Patricia Tran, [facility] [address] [place] [address] Pharmacist Pharmacy 10/24/19 04/02/23 Ani Carson, [facility] [address] [place] [address] Pharmacist Pharmacy 12/29/20 Outside Sales Account Executive Relationship Specialty Start Date End Date Ranjit Azar DO [address] [place] [address] PCP - General Family Medicine 07/12/12 Ani Carson, [facility] [address] [place] [address] Pharmacist Pharmacy 12/29/20 Team Status: Inactive Member Role Status Dates Dr. Ranjit Azar , Primary Care Provider Active Dr. Chavez Cameron , Emergency Provider Active Outside Sales Account Executive Relationship Specialty Start Date End Date Ranjit Azar DO [address] [place] [address] PCP - General Family Medicine 07/12/12 Ani Carson, [facility] [address] [place] [address] Pharmacist Pharmacy 12/29/20 Outside Sales Account Executive Relationship Specialty Start Date End Date Ranjit Azar DO [address] [place] [address] PCP - General Family Medicine 07/12/12 Ani Carson, [facility] [address] [place] [address] Pharmacist Pharmacy 12/29/20 Outside Sales Account Executive Relationship Specialty Start Date End Date Ranjit Azar DO [address] [place] [address] PCP - General Family Medicine 07/12/12 Ani Carson, [facility] [address] [place] [address] Pharmacist Pharmacy 12/29/20 Outside Sales Account Executive Relationship Specialty Start Date End Date Ranjit Azar DO [address] [place] [address] PCP - General Family Medicine 07/12/12 Ani Carson, [facility] [address] [place] [address] Pharmacist Pharmacy 12/29/20 Outside Sales Account Executive Relationship Specialty Start Date End Date Ranjit Azar DO [address] [place] [address] PCP - General Family Medicine 07/12/12 Alli, Ani, [facility] [address] [place] [address] Pharmacist Pharmacy 12/29/20 Outside Sales Account Executive Relationship Specialty Start Date End Date Ranjit Azar DO [address] [place] [address] PCP - General Family Medicine 07/12/12 Outside Sales Account Executive Relationship Specialty Start Date End Date Ranjit Azar DO [address] [place] [address] PCP - General Family Medicine 07/12/12 Outside Sales Account Executive Relationship Specialty Start Date End Date Ranjit Azar DO [address] [place] [address] PCP - General Family Medicine 07/12/12 Patricia Tran, [facility] [address] [place] [address] Pharmacist Pharmacy 10/24/19 04/02/23 Ani Carson, [facility] [address] [place], [place] [address] [phone] Pharmacist Pharmacy 12/29/20 08/13/23 Outside Sales Account Executive Relationship Specialty Start Date End Date Ranjit Azar DO [address] [place] [address] PCP - General Family Medicine 07/12/12 Nicole Bass, ROOF DESIGNER.WARRANTY CLERK [address] [place] [address] Vice President Talent Management Family Medicine 05/12/24 Love Nguyen, ROOF DESIGNER.WARRANTY CLERK [address] [place] [address] Vice President Talent Management Family Medicine 05/12/24 Outside Sales Account Executive Relationship Specialty Start Date End Date Ranjit Azar DO [address] [place] [address] PCP - General Family Medicine 07/12/12 Nicole Bass, ROOF DESIGNER.WARRANTY CLERK [address] [place] [address] Vice President Talent Management Family Medicine 05/12/24 Love Nguyen, ROOF DESIGNER.WARRANTY CLERK [address] [place] [address] Vice President Talent Management Family Medicine 05/12/24 Outside Sales Account Executive Relationship Specialty Start Date End Date Ranjit Azar DO [address] [place] [address] PCP - General Family Medicine 07/12/12 Nicole Bass, ROOF DESIGNER.WARRANTY CLERK [address] [place] [address] [facility]24 [facility] ROOF DESIGNER.WARRANTY CLERK [address] [place] [address] [facility] 05/12/24 Outside Sales Account Executive Relationship Specialty Start Date End Date Ranjit Azar DO [address] [place] [address] PCP - General Family Medicine 07/12/12 [facility], ROOF DESIGNER.WARRANTY CLERK [address] [place] [address] [facility] 05/12/24 Lance Pulido, ROOF DESIGNER.WARRANTY CLERK [address] [place] [address] [facility] 11/18/24 Outside Sales Account Executive Relationship Specialty Start Date End Date Ranjit Azar DO [address] [place] [address] PCP - General Family Medicine 07/12/12 [facility], ROOF DESIGNER.WARRANTY CLERK [address] [place] [address] [facility] 05/12/24 Lance Pulido, ROOF DESIGNER.WARRANTY CLERK [address] [place] [address] [facility] 11/18/24 Outside Sales Account Executive Relationship Specialty Start Date End Date Ranjit Azar DO [address] [facility], [place] [address] PCP - General Family Medicine 07/12/12 [facility], ROOF DESIGNER.WARRANTY CLERK [address] [facility] [place] [address] Vice President [facility] 05/12/24 Lance Pulido, ROOF DESIGNER.WARRANTY CLERK [address] [facility] [place] [address] [facility] 11/18/24 Team Status: Active Member Role/Relationship Status Dates Dr. Ranjit Azra DO Primary Care Provider Active Team Status: Inactive Member Role/Relationship Status Dates Javid Winter MD Emergency Provider Active Star t: January 21, 2025 End: January 21, 2025 Dr. Ranjit Azar DO Primary Care Provider Active Start: January 21, 2025 End: January 21, 2025 Outside Sales Account Executive Relationship Specialty Start Date End Date Ranjit Azar DO [address] [place] [place] [address] PCP - General Family Medicine 07/12/12 [facility], ROOF DESIGNER.WARRANTY CLERK [address] [place] [place] [address] [facility] 05/12/24 Lance Pulido, ROOF DESIGNER.WARRANTY CLERK [address] [facility], [place] [address] [phone] [facility] 11/18/24 Outside Sales Account Executive Relationship Specialty Start Date End Date Ranjit Azar DO [address] [place] [place] [address] PCP - General Family Medicine 07/12/12 [facility], ROOF DESIGNER.WARRANTY CLERK [address] [place] [address] [facility] 05/12/24 MarcialLance, ROOF DESIGNER.WARRANTY CLERK [address] [place], [place] [address] [facility] 11/18/24 Outside Sales Account Executive Relationship Specialty Start Date End Date Ranjit Azar DO [address] [place], [place] [address] PCP - [facility] 07/12/12 [facility] Love, ROOF DESIGNER.WARRANTY CLERK [address] [place], [place] [address] [facility] 05/12/24 [facility], ROOF DESIGNER.WARRANTY CLERK [address] [place], [place] [address] [facility] 11/18/24 Team Status: Active Member Role/Relationship Status Dates Dr. Ranjit Azar , Primary care physician Active Team Status: Inactive Member Role/Relationship Status Dates Javid Winter MD Attending physician Active Sta rt: January 21, 2025 End: January 21, 2025 Javid Winter MD Emergency Department Physician Active Start: January 21, 2025 End: January 21, 2025 Dr. Ranjit Azar DO Primary care physician Active Start: January 21, 2025 End: January 21, 2025 Team Status: Active Member Role/Relationship Status Dates Dr. Ranjit Azar DO Primary care physician Active Start: March 04, 2025 Dr. Timothy Chao , Emergency Department Physician Active Start: March 04, 2025 Dr. Giovani Membreno , DO Admitting physician Active Start: February Dr. Giovani Membreno , DO Nurse Practitioner Active Start: February Dr. Hoa Haskins MD Attending physician Active Start: March 04, 2025 Team Status: Inactive Member Role/Relationship Status Dates Dr. Ranjit Azar DO Primary care physician Active Start: March 04, 2025 End: March 05, 2025 Dr. Timothy Chao DO Emergency Department Physician Active Start: March 04, 2025 End: March 05, 2025 Dr. Giovani Membreno DO Admitting physician Active Start: February End: March 05, 2025 Dr. Giovani Membreno DO Nurse Practitioner Active Start: February End: March 05, 2025 Dr. Hoa Haskins MD Attending physician Active Start: March 04, 2025 End: March 05, 2025 Team Status: Active Member Role/Relationship Status Dates Dr. Ranjit Azar DO Primary care physician Active Start: March 05, 2025 Dr. Emanuel Capps MD Attending physician Active Start: March 05, 2025 Team Status: Active Member Role/Relationship Status Dates Dr. Ranjit Azar DO Primary care physician Active Start: March 05, 2025 Dr. Timothy Chao DO Emergency Department Physician Active Start: March 05, 2025 Dr. Giovani Membreno DO Admitting physician Active Start: March 05, 2025 Dr. Giovani Membreno DO Nurse Practitioner Active Start: March 05, 2025 Dr. Hoa Haskins MD Attending physician Active Start: March 05, 2025 Dr. Hoa Haskins MD Nurse Practitioner Active Start: March 05, 2025 Goals (unrecognized section and content) Goals may be documented in a n alternate sectionGoals may be documented in an alternate sectionGoals may be documented in an alternate sectionGoals may be documented in an alternate sectionGoals may be documented in an alternate section FOR RECORDS PERTAINING TO PATIENTS WHO ARE OR HAVE BEEN ENROLLED IN A CHEMICAL DEPENDENCY/SUBSTANCEABUSE PROGRAM, SOME INFORMATION MAY BE OMITTED. This clinical summary was aggregated from multiple sources. Caution should be exercised in using it in the provision of clinical care. This summary normalizes information from multiple sources, and as a consequence, information in this document may materially change the coding, format and clinical context of patient data. In addition, data may be omitted in some cases. CLINICAL DECISIONS SHOULD BE BASED ON THE PRIMARY CLINICAL RECORDS. [facility] [employer] [facility]. provides no warranty or guarantee of the accuracy or completeness of information in this document.
[2025-05-09 18:39] LABS: Allen Test Positive; Base Excess 3 mmol/L (-2 to +2); PO2 61 mmHG (75-100); SITE R Radial; SO2 90 % (94-98)
[2025-05-09 18:46] VITALS: BP 172/113; PULSE 102; RESP 20; O2SAT 98
[2025-05-09 18:47] LABS: Troponin T High Sensitivity 7 ng/L (<=22)
[2025-05-09 18:50] LABS: Anion Gap 13 (5-15); BUN 12 mg/dL (4-19); BUN/Creat Ratio 11.5 RATIO (10-20); Calcium,Total 9.8 mg/dL (7.6-11.0); Carbon Dioxide 24.0 mmol/L (21.0-32.0); Chloride 98 mmol/L (98-108); Estimated Creatinine Clearance 103.23 ml/min (50-250); Glucose 257 mg/dL (70-99); Potassium 3.8 mmol/L (3.3-5.1)
[2025-05-09] MEDS: levETIRAcetam IV 1,000 MG/100 ML BAG 400 MG IV (19:58)
[2025-05-09 20:00] VITALS: BP 180/119; PULSE 101; RESP 17; O2SAT 97
[2025-05-09 21:00] VITALS: BP 161/110; PULSE 107; RESP 19; O2SAT 95
[2025-05-09 21:07] LABS: Troponin T High Sens 2 HR 10 ng/L (<=22)
--- NOTE | 2025-05-09 21:16 | CM.ED ---
Social work Reason for referral: support Referral source: case find SW entered patient's room, introducing self and role at [facility] to patient's , Taina, who was bedside. Patient was asleep and SW stated purpose of visit was to support Taina however Taina needed. Taina stated being okay and denied needing support from SW. Taina denied further needs at this time. Barbara Bustamante, PERSONAL LINES INSURANCE ADVISOR, LOAD MANAGER
[2025-05-09 21:46] LABS: Reflex Lactate? Y
[2025-05-09 22:00] VITALS: BP 155/108; PULSE 94; RESP 18; O2SAT 98
[2025-05-09 22:51] VITALS: BP 161/117; PULSE 88; RESP 18; O2SAT 96
[2025-05-10] VITALS (7 sets, daily range): BP systolic 145–170; BP diastolic 97–122; PULSE 80–91; RESP 16–19; TEMP 36.6; O2SAT 94–98
== END 2025-05-10 06:07 | disposition home or self-care (01) ==
PROVIDERS: Emergency Provider Emergency Medicine; PCP Student in an Organized Health Care Education/Training Program; Visit Provider Emergency Medicine
DX: R40.4 Transient alteration of awareness (principal); E11.9 Type 2 diabetes mellitus without complications; I10 Essential (primary) hypertension; F19.90 Other psychoactive substance use, unspecified, uncomplicated; Z79.85 Long-term (current) use of injectable non-insulin antidiabetic drugs; Z79.899 Other long term (current) drug therapy; Z87.891 Personal history of nicotine dependence
CPT/HCPCS: 36600; 70450; 71045; 80048; 82803; 82962; 83605; 84484; 85025; 85610; 85730; 93005; 96361; 96365; 96375; 99284; A4216

== ENCOUNTER 2025-05-23 16:26 | Emergency (ER) | payer OTHER, SELFPAY ==
[2025-05-23] VITALS (7 sets, daily range): BP systolic 140–192; BP diastolic 105–134; PULSE 94–117; RESP 16–22; TEMP 36.6–36.8; O2SAT 99–100; BMI 30.9
--- NOTE | 2025-05-23 16:53 | EKG12_ITS ---
Test Reason : Blood Pressure : */* mmHG Vent. Rate : 102 BPM Atrial Rate : 102 BPM P-R Int : 150 ms QRS Dur : 80 ms QT Int : 332 ms P-R-T Axes : 53 32 26 degrees QTcB Int : 432 ms Sinus tachycardia Otherwise normal ECG Reconfirmed by Tashi Easton ([id number]), offline editor JOÃO WALTON ([id number]) on 05/26/2025 10:22:25 AM Also confirmed by Tashi Easton ([id number]), offline editor JOÃO WALTON ([id number]) on 05/27/2025 8:30:59 AM Referred By: IVETT/EPIFANIO Confirmed By: Tashi Easton
--- NOTE | 2025-05-23 16:55 | EX.ED.DYSGE1 ---
HPI History of Present Illness Chief Complaint: Syncope Informant: patient and spouse/S.O. Onset/Context/Timing Onset: Today Context: Sudden Onset Timing: Intermittent Current Severity: Gone Maximum Severity: Moderate Narrative Narrative: 39-year-old male history of seizure disorder on no medications, diabetes schizophrenia. 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 Denies being unconscious. Said it was not a seizure. Denies any recent admission. came shortly after his initial arrival. She denies any recent illness or hospitalization. She was not at his worksite to see what exactly happened. Prior similar symptoms: Yes Recent Illness/Hospitalization: No [facility] Medical History Conway coma scale score 3-8, at arrival to emergency department Generalized tonic-clonic seizure Acute hyperglycemia Super-super obese Acute gangrenous cholecystitis Acute cholecystitis DM2 (diabetes mellitus, type 2) Schizoaffective disorder Cholecystitis Depression Seizure SOB (shortness of breath) Asthma HTN (hypertension) Home Medications ?Medication ?Instructions ?Recorded ?Last Taken ?Type lisinopril 20 mg tablet 20 mg PO DAILY #30 tabs 03/05/25 05/08/25 Rx dulaglutide 1.5 mg/0.5 mL 1.5 mg subcut QWEEK 05/09/25 Unknown History subcutaneous pen injector (Trulicity) Allergy/AdvReac Type Severity Reaction Status Date / Time hydrocodone bitartrate (From Allergy Hives Verified 05/23/25 16:33 Vicodin) acetaminophen AdvReac Nausea/hive Verified 05/23/25 16:33 s baclofen AdvReac IT MAKES Verified 05/23/25 16:33 HIM LIGHTHEADED AND SICK lactose AdvReac Nausea Verified 05/23/25 16:33 Penicillins AdvReac Nausea Verified 05/23/25 16:33 Surgical History History of laparoscopic cholecystectomy (~04/20/19) Social History household members: spouse and family current occupational status: employed Smoking Status: Former smoker ROS ROS ED ROS Narrative Denies recent illness. Constitutional Constitutional ED: Denies chills or fever(s) Eyes Eyes: Denies blurry vision ENT ENT ED: Denies ear pain Cardiovascular Cardiovascular: Denies chest pain Respiratory/Chest Respiratory/Chest: Denies cough or dyspnea Gastrointestinal Gastrointestinal: Denies abdominal pain, diarrhea, melena, nausea or vomiting Genitourinary Genitourinary ED: Denies dysuria Musculoskeletal Musculoskeletal: Denies arthralgias or back pain Integumentary Denies abscess Neurologic Neurologic: Denies headache(s) Psychiatric Psychiatric: Denies anxiety Endocrine Endocrinology: Denies cold intolerance Hematologic/Lymphatic Hematologic/Lymphatic: Reports none Allergic/Immunologic Allergic/Immunologic ED: Denies mouth swelling, tongue swelling or urticaria EXAM Physical Exam Narrative Exam Narrative: Well-appearing 39-year-old female. Vital signs stable afebrile initial blood pressure elevated 165/116 on to be rechecked. Pulse ox 99% on room air no hypoxia. Patient is sitting upright in bed no distress. is present in room. H EENT exam pupils round react light. Moist mucous membranes. No trauma. Neck nontender no lymphadenopathy. Back nontender. Lungs clear to auscultation bilaterally. Heart regular rhythm rate about 100 no murmur. Chest wall ribs nontender. Abdomen soft nontender. No peritoneal signs. No obstruction. No hernia or mass. Moving all 4 extremities. Normal ell teacher strength. Dorsi plantarflexion. Equal symmetrical radial pulses. Neurologically is awake alert. Answering questions following commands. Does not appear postictal. Const Vital Signs: 05/23/25 16:28 05/23/25 16:53 05/23/25 17:27 Temperature 98 F Temperature Source Oral Pulse Rate 107 H 100 Pulse Rate [Lying] 101 H Pulse Rate [Sitting (for 1 minute prior to obtaining)] 106 H Pulse Rate [Standing (for 1 minute prior to obtaining)] 115 H Respiratory Rate 22 H 18 Blood Pressure 165/116 H 189/122 H Blood Pressure [Lying] 170/121 H Blood Pressure [Sitting (for 1 minute prior to obtaining)] 185/133 H Blood Pressure [Standing (for 1 minute prior to obtaining)] 189/122 H Blood Pressure Mean 132 144 Blood Pressure Mean [Lying] 137 Blood Pressure Mean [Sitting (for 1 minute prior to obtaining)] 150 Blood Pressure Mean [Standing (for 1 minute prior to obtaining)] 144 Pulse Ox 99 100 Oxygen Delivery Method Room Air Room Air 05/23/25 18:00 05/23/25 19:00 05/23/25 20:00 Temperature Temperature Source Pulse Rate 94 100 117 H Pulse Rate [Lying] Pulse Rate [Sitting (for 1 minute prior to obtaining)] Pulse Rate [Standing (for 1 minute prior to obtaining)] Respiratory Rate 16 18 20 H Blood Pressure 185/133 H 192/134 H 157/109 H Blood Pressure [Lying] Blood Pressure [Sitting (for 1 minute prior to obtaining)] Blood Pressure [Standing (for 1 minute prior to obtaining)] Blood Pressure Mean 150 153 125 Blood Pressure Mean [Lying] Blood Pressure Mean [Sitting (for 1 minute prior to obtaining)] Blood Pressure Mean [Standing (for 1 minute prior to obtaining)] Pulse Ox 100 100 100 Oxygen Delivery Method Room Air MDM MDM MDM Narrative Medical decision making narrative: 39-year-old male with near syncope at work. Exam is benign. Will undergo a cardiac workup. Repeat exam at 7:06 PM patient is doing well. His blood pressure is evaded at 190/130. To be rechecked if it still running high I will be given blood pressure medication and reevaluated. If not be discharged to home. I discussed all test results with he and his significant other they are comfortable with him being discharged to home. Patient's blood pressure was elevated he was treated with hydralazine. Still was elevated was given a dose of lisinopril his most recent blood pressure is 141/105. He is resting comfortably at 8:50 PM and will be discharged to home. He did not take his blood pressure medication earlier today. He has chronic hypertension. History & Record Review Discussion w/independent historian: Patient and Family Additional record(s) reviewed:: Prior outpatient record, Prior ED visit and Prior labs Lab Data Attestation: I reviewed the patient's lab results. Lab results narrative: CBC unremarkable. White count of 5. H&H 13 and 41. Platelets 257. Electrolytes show gap of 8. Normal BUN of 10 creatinine of 1. Glucose 166. Troponin 12. Labs: Laboratory Results - last 24 hr 05/23/25 05/23/25 16:37 19:00 WBC 5.1 RBC 5.01 Hgb 13.6 Hct 41.2 MCV 82.2 MCH 27.1 MCHC 33.0 RDW Std Deviation 35.5 RDW Coeff of Ferny 11.9 Plt Count 257 MPV 10.4 Immature Gran % (Auto) 0.200 Neut % (Auto) 61.2 Lymph % (Auto) 28.8 Bulloch % (Auto) 8.0 Eos % (Auto) 1.0 Baso % (Auto) 0.8 Absolute Neuts (auto) 3.1 Absolute Lymphs (auto) 1.47 Nucleated RBC % 0 Sodium 138 Potassium 3.9 Chloride 104 Carbon Dioxide 26.4 Anion Gap 8 BUN 10 Creatinine 1.05 Estim Creat Clear Calc 95.65 Est GFR (MDRD) Non-Af 91 BUN/Creatinine Ratio 9.1 L Glucose 166 H Calcium 9.6 Troponin T High Sens 12 D Troponin T Hi Sens 2 Hr 11 Radiography Chest X-Ray - ED: 2 View, Read by ED Physician, Normal, Heart, Lungs, Mediastinum, Bony Structures, No Acute Disease and Chronic Changes Diagnostic Testing: Clinical Impression(s) from Imaging Studies Chest X-Ray 05/23/25 17:00 IMPRESSION: NO ACUTE FINDINGS. Reading Location: [facility] [place] Chest x-ray, 2 views, AP and lateral, interpreted both by myself and radiology shows no acute abnormality. Normal lung hudson. Normal mediastinum and cardiac silhouette. No acute process. Chronic changes. Rhythm Strip Rhythm Strip: Sinus Tach Rate: 102 Ectopy: None EKG Initial EKG: Attestation: I personally reviewed and interpreted this EKG as follows: Interpretation: No Acute Injury Pattern and Sinus Tachycardia Comments: Sinus tachycardia rate of 182 no acute signs of NV ischemia or dysrhythmia. No S1Q3 T3. Discharge Plan Triage Chief Complaint: Syncope ED Provider: Armando Doll Dx/Rx/DC Orders Clinical Impression: Near syncope, History of diabetes mellitus, History of hypertension, History of seizures Instructions: ED Near-Fainting, Uncertain Cause Prescriptions: No Action Trulicity 1.5 mg/0.5 mL pen injector 1.5 mg subcut QWEEK lisinopril 20 mg tablet 20 mg PO DAILY Qty: 30 2RF Primary Care Provider: Ranjit Azar Referrals: Ranjit Azar DO [Primary Care Provider, Medical] - 3-5 Days Activity Restrictions/Additional Instructions: Your labs EKG and chest x-ray look good night. Follow-up with your doctor to ensure you are doing okay. Return if feeling worse. Watch your blood pressure make sure you are taking your blood pressure medication as prescribed. Print Language: Mexican Disposition Disposition: Home, Self Care
[2025-05-23 17:00] LABS: Hematocrit 41.2 % (40-54); Hemoglobin 13.6 g/dL (13.0-16.5); Immature Granulocytes Count 0.010 X10^3/uL (0.0-0.0); Mean Corp Hgb Conc 33.0 g/dL (32-36); Mean Corpuscular Volume 82.2 fL (80-94); Mean Platelet Vol. 10.4 fl (6.2-12.0); NRBC Flagged by Analyzer 0 % (0-5); Platelet Count 257 K/mm3 (150-450); RBC Distribution Width CV 11.9 % (11.6-14.6); RBC Distribution Width SD 35.5 fl (35.1-43.9); Red Blood Count 5.01 M/mm3 (4.6-6.2); White Blood Count 5.1 K/mm3 (4.4-11.0)
--- NOTE | 2025-05-23 17:00 | RAD_ITS ---
PROCEDURE: CHEST PA AND LATERAL 05/23/2025 REASON FOR EXAM: NEAR SYNCOPE TECHNIQUE: Procedure Code: RADCXR Modality: DX Procedure: CHEST PA AND LATERAL COMPARISON: 05/09/2025 FINDINGS: LUNGS AND PLEURA: The lungs are clear. No pleural effusion or pneumothorax. HEART AND MEDIASTINUM: The heart size and mediastinal contours are normal. BONES: No acute osseous abnormality. RAD/Chest PA and Lateral IMPRESSION: NO ACUTE FINDINGS. Reading Location: [id number]
[2025-05-23 17:23] LABS: Anion Gap 8 (5-15); BUN 10 mg/dL (4-19); BUN/Creat Ratio 9.1 RATIO (10-20); Calcium,Total 9.6 mg/dL (7.6-11.0); Carbon Dioxide 26.4 mmol/L (21.0-32.0); Chloride 104 mmol/L (98-108); Estimated Creatinine Clearance 95.65 ml/min (50-250); Glucose 166 mg/dL (70-99); Potassium 3.9 mmol/L (3.3-5.1); Troponin T High Sensitivity 12 ng/L (<=22)
--- OUTSIDE RECORDS SUMMARY | 2025-05-23 17:32 | XMS RPT_ITS | CCD ---
Author Organization [facility] Care Team Providers Care Foreman [employer] Department Name Role Phone RANJIT AZAR Unavailable Unavailable [...] Provider UnavailRanjit Aburto DO Primary Care Provider [facility], Keti Unavailable [facility], Ani Unavailable Jessica RN, Nancy Unavailable Unavailtaty Lopez RN, Nancy Unavailable UnavailRanjit Aburto DO Primary Care Provider [facility], Keti Unavailable [facility], Ani Unavailable Ranjit Azar DO Primary Care Provider [facility], Keti Unavailable [facility], Ani Unavailable Jessica RN, Nancy Unavailable Unavailabl e Ranjit Azar DO Primary Care Provider [facility], Keti Unavailable [facility], Ani Unavailable Dr. Ranjit Azar Primary Care Provider Dr. Jah Santiago Emergency Provider Korciara, Dr. Hoa Martell Admit Provider Korciara, Dr. Hoa Martell Other Provider Kaushik, Dr. Scott Attending Provider Kaushik, Dr. Scott Other Provider [facility], Keti Unavailable Dr. Ranjit Azar Primary Care Provider Dr. Jah Santiago Emergency Provider Korciara, Dr. Hoa Martell Admit Provider Korciara, Dr. Hoa Martell Other Provider Kaushik, Dr. Scott Attending Provider Kaushik, Dr. Scott Other Provider Ranjit Azar DO Primary Care Provider [facility], Ani Unavailable Kali CHARGE OUT CLERK.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, Nicole Alberto Unavailable Patrick CHARGE OUT CLERK.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, Love Unavailable Marcial CHARGE OUT CLERK.CHRIS, Lance Gallego Unavailable Javid Winter MD Emergency [...] Primary Care Unavailable PATRICK, LOVE Referring Unavailable AZAR, RANJIT L Primary Care Unavailable SELF Referring Unavailable LEANNA OWENS Attending Unavailable Allergies Allergy Classification Reported Allergen(s) Allergy Type Date of Onset Reaction(s) Facility (20 sources) acetaminophen / HYDROcodone; Translations: [HYDROCODONE-ACET AMINOPHEN] Drug Allergy 5 Hives [facility] Repository (20 sources) baclofen; Translations: [BACLOFEN] Drug Allergy 6 Hives, Other: See Comments [facility] Repository (5 sources) coconut extract; Translations: [COCONUT] Drug Allergy 0 AOF, Hives [facility] Repository (14 sources) lactose; Translations: [LACTOSE] Drug Allergy 0 Diarrhea [facility] Repository (16 sources) Penicillins; Translations: [PENICILLINS] Propensity to adverse reactions (disorder) 9 [facility] Repository (5 sources) strawberry allergenic extract; Translations: [STRAWBERRY] Drug Allergy 0 [facility] Repository (13 sources) Acetaminophen Drug Allergy 8 [facility] [place] Work Phone: (2 sources) Other Propensity to adverse reactions 0 [facility] Work Phone: (2 sources) coconut allergenic extract Drug Allergy 0 Anaphylaxis [place], [place] (2 sources) Lactose (non-medical use) Propensity to adverse reactions to drug 0 Diarrhea [place] (2 sources) [place] Flavor Propensity to adverse reactions to drug 0 [place], [place] (10 sources) HYDROcodone; Translations: [hydrocodone bitartrate] Drug Allergy 2 [facility] (12 sources) Penicillin; Translations: [PENICILLIN] Drug Allergy 4 [facility] (1 source) Acetaminophen Drug Allergy 5 [facility] Repository Medications Current Medications Medication Drug Class(es) Dates Sig (Normalized) Sig (Original) [id number] 200 actuat albuterol 0.09 mg/actuat metered dose [...] Blood-Glucose Meter,Continuo us (FREESTYLE LICO 3 READER) [facility] Indications: Type 2 diabetes mellitus with diabetic neuropathy, with long-term current use of insulin (HCC) 1 Each continuous. 1 Each 06/19/2024 01/27/2025 Discontinued Start: 06-19-2024 Blood-Glucose Meter,Continuous (FREESTYLE LICO 3 READER) [facility] Indications: Type 2 diabetes mellitus with diabetic [...] Cholecalciferol (Vitamin D3) 1,000 UNIT tablet Discontinued 72016 U PO EVERY WEEK October 22, 2014 12:00am January 21, 2025 12:04pm replacement Start: 10-22-2014 take 85104 [IU] by m outh every week Cholecalciferol (Vitamin D3) Active 54412 UNIT PO EVERY WEEK October 21, 2014 11:00pm Start: 12-31-2013 End: 09-12-2014 take 1 tablet by mouth once daily Cholecalciferol (Vitamin D3) (Vitamin D3) 2,000 UNIT tablet Discontinued 2000 U PO DAILY December 31, 2013 12:00am September 12, 2014 11:40am take 1 capsule by mo uth once daily Cholecalciferol (VITAMIN D3) 24757 units CAPS Take 1 capsule by mouth daily 0 Active Comment on above: Take 1 capsule by mo [facility] one time a week. doxepin hydrochloride [...] long-term current use of insulin ([facility]) , Noncompliance , Obesity, Class I, BMI 30-34.9 Inject 1.5 mg subcutaneously one time a week. 6 mL 01/27/2025 04/27/2025 Active Start: 02-10-2023 End: 09-17-2024 inject 0.75 mg by subcutaneous injection every week dulaglutide (TRULICITY) 0.75 mg/0.5 mL pen injector Indications: Type 2 diabetes mellitus with diabetic neuropathy, with long-term current use of insulin ([facility]) Inject 0.75 mg subcutaneously one time a [...] 09-09-2014 End: 09-12-2014 Insulin Glargine (Lantus Ana Roas ostar Pen) 100 UNITS/ML Pen Discontinued 10 [...] tablet 1 08/22/2019 Active Start: 03-06-2018 lisinopril (NM INIVIL;ZESTRIL) 20 MG tablet Take 30 mg [...] Comment on above: Take 1 tablet by [facility] once daily. Mometasone-Formote rol (3 sources) [...] 04/24/2017 09/30/2021 Discontinued take 2 tablets by [facility] twice daily, then take 2 tablets by mouth twice daily nadolol (CORGARD) 20 MG tablet Take 40 mg by mouth 2 times daily Pt takes two 20 mg tabs BID for total of 40 mg BID 0 Active Comment on above: Take 2 tablets by mo [facility] once daily. nortriptyline 10 mg oral [...] Comment on above: Take 1 capsule by [facility] before meals and at bedtime. THREE TIMES [...] on above: Take 1 capsule by mo [facility] once daily. ertapenem (INVANZ) 1,000 mg [...] scanning reader (FREESTYLE LICO 14 DAY READER) [facility] (20 sources) Start: 09-26-2019 End: 09-23-2022 flash glucose scanning reader (FREESTYLE LICO 14 DAY READER) [facility] Indications: Type 2 diabetes mellitus without complication, with long-term current use of insulin (HCC) Use to check blood sugar 4 times daily. 1 Each 09/26/2019 09/23/2022 Discontinued Start: 09-26-2019 End: 09-23-2022 flash glucose scanning reade r (FREESTYLE LICO 14 DAY READER) [facility] Indications: Type 2 diabetes mellitus without complication, with long-term current use of insulin (HCC) Use to check blood sugar 4 times daily. 1 Each 0 09/26/2019 09/23/2022 Discontinued Start: 09-26-2019 flash glucose scanning reader (FREESTYLE LICO 14 DAY READER) [facility] Indications: Type 2 diabetes mellitus without complication, [...] 11:00pm Start: 10-10-2016 take 1 capsule by [facility] once daily FLUoxetine (PROZAC) 40 MG capsule [...] on above: Take 1 capsule by mo [facility] twice daily for 30 days. Take 1 capsule by mo [facility] twice daily. 100 mg morning , 200 mg at bedtime Take 3 capsules by [facility] at bedtime as needed for up to 30 days. TAKE 1 CAPSULE BY MO [facility] TWICE A DAY Take 1 capsule by mo [facility] twice daily for 90 days. 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 Currently as of March 04Mon 1 my A1c is recorded to be at a 8 instead of 12.7. My current sugar level is 164 Attachments [phone] [phone] Nicole Bass APRN.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 03/20/2025 12:12 PM Signed Great job!! Keep [...] Date Reviewed: 01/27/2025 Reviewed by: Lance Pulido APRN.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 - Fully Assessed Reason for Visit: BS readings [Other] Primary Visit Diagnosis:Type 2 diabetes mellitus with diabetic neuropathy, with long-term current use of insulin (HCC) [E11.40, Z79.4] Order(s):HEMOGLOBIN A1C [XAHCO6U] Order #: [id number] FUTURE Prescriptions as of 03/20/2025 - dulaglutide [...] Status:Closed by BEVERLY WADE on 03/20/25 Normal [facility] 12 Lead EKGon 03-05-[address] [facility] Cardiovascular Services [address] [place] [id number] 12 Lead EKG 03/05/25 0523 MR#: [id number] Acct: [id number] Name: VICTOR HUGO ASIF Rep #: [id number] : 1985 39 From: Emanuel Capps MD Attending Dr: Dr. Hoa Haskins MD Status: CHANELLE MOORE Ordering Dr: Giovani Membreno DO Date: 03/05/25 Location: [facility] Sex: M AA Admitted: 03/04/25 Test Reason [...] UNCONFIRMED Confirmed by EMANUEL CAPPS MD ([id number]), general expeditor LAURY WALTON ([id number]) on 03/06/2025 7:19:07 AM Referred By: Confirmed By: EMANUEL CAPPS MD 10/02/718 Emanuel Capps MD CC: Dr. Giovani Membreno, DO; Dr. Ranjit Azar DO; Dr. Hoa Haskins MD Signed Normal [facility] Anion gap in Serum or Plasma Ordered By: Giovani Membreno on 03-05-2025 Anion gap [Moles/Vol] 10 mmol/L 10-17 [facility] BUN/creatinine ratioOrdered By: Giovani Membreno on 03-05-2025 Urea nitrogen/Creatinine [Mass ratio] 13.1 mg/mg 03-24 [facility] Basic Metabolic Profile (BMP )on 03-05-2025 BUN/CRE 13.1 RATIO Normal 03-24 [facility] Comment on above: Performed By: #### L 499.0042 #### [facility] [address] [place], [address] Calcium [Mass/Vol] 9.2 mg/dL Normal 7.6-11.0 [facility] Comment on above: Performed By: #### L 499.0042 #### [facility] [address] [place], [address] Chloride [Moles/Vol] 104 mmol/L Normal 98-108 [facility] Comment on above: Performed By: #### L 499.0042 #### [facility] [address] [place], [address] CO2 [Moles/Vol] 23.0 mmol/L Normal 21.0-32.0 [facility] Comment on above: Performed By: #### L 499.0042 #### [facility] [address] [place], [address] Creatinine [Mass/Vol] 0.87 mg/dL Normal 0.70-1.20 [facility] Comment on above: Performed By: #### L 499.0042 #### [facility] [address] [place], [address] ECRCL 118.40 ml/min Normal 50-250 [facility] Comment on above: Performed By: #### L 499.0042 #### [facility] [address] [place], [address] GAP 10 Normal 5-15 [facility] Comment on above: Performed By: #### L 499.0042 #### [facility] [address] [place], [address] GFR/1.73 sq M.predicted among non-blacks MDRD (S/P/Bld) [Vol rate/Area] 111 mL/min/{1.73_m2} Normal >60 [facility] Comment on above: Result Comment: mL/m in/1.73m2 CKD-EPI Creatinine Equation (2020) Performed By: #### L 499.0042 #### [facility] [address] [place], [address] Glucose [Mass/Vol] 135 mg/dL High 70-99 [facility] Comment on above: Performed By: #### L 499.0042 #### [facility] [address] [place], [address] Potassium [Moles/Vol] 3.8 mmol/L Normal 3.3-5.1 [facility] Comment on above: Performed By: #### L 499.0042 #### [facility] [address] [place], [address] Sodium [Moles/Vol] 138 mmol/L Normal 133-145 [facility] Comment on above: Performed By: #### L 499.0042 #### [facility] [address] [place], [address] Urea nitrogen [Mass/Vol] 11 mg/dL Normal 4-19 [facility] Comment on above: Performed By: #### L 499.0042 #### [facility] [address] [place], [address] Bedside Glucoseon 03-05-2025 FINGERSTICK GLU 149 mg/dL High 74-106 [facility] Comment on above: Result Comment: CYNTHIA GEMENT OF PATIENT CARE PER NURSING PROTOCOL Performed By: #### L 501.080 #### [facility] [address] [place], [address] FINGERSTICK GLU 192 mg/dL High 74-106 [facility] Comment on above: Result Comment: CYNTHIA GEMENT OF PATIENT CARE PER NURSING PROTOCOL Performed By: #### L 501.080 ####[facility] [address] [place], [address] FINGERSTICK GLU 135 mg/dL High 74-106 [facility] Comment on above: Result Comment: CYNTHIA GEMENT OF PATIENT CARE PER NURSING PROTOCOL Performed By: #### L 501.080 ####[facility] [address] [place], [address] CBC-Complete Blood Cnt No Di ffon 03-05-2025 Erythrocyte distribution width (RBC) [Ratio] 12.0 % Normal 11.6-14.6 [facility] Comment on above: Performed By: #### L 499.0042 #### [facility] [address] [place], [address] Hematocrit (Bld) [Volume fraction] 37.2 % Low 40-54 [facility] Comment on above: Performed By: #### L 499.0042 #### [facility] [address] [place], [address] Hemoglobin (Bld) [Mass/Vol] 12.0 g/dL Low 13.0-16.5 [facility] Comment on above: Performed By: #### L 499.0042 #### [facility] [address] [place], [address] MCH (RBC) [Entitic mass] 27.0 pg Normal 27.0-32.0 [facility] Comment on above: Performed By: #### L 499.0042 #### [facility] [address] [place], [address] MCHC (RBC) [Mass/Vol] 32.3 g/dL Normal 32-36 [facility] Comment on above: Performed By: #### L 499.0042 #### [facility] [address] [place], [address] MCV (RBC) [Entitic vol] 83.8 fL Normal 80-94 [facility] Comment on above: Performed By: #### L 499.0042 #### [facility] [address] [place], [address] Platelet mean volume (Bld) [Entitic vol] 10.4 fL Normal 6.2-12.0 [facility] Comment on above: Performed By: #### L 499.0042 #### [facility] [address] [place], [address] Platelets (Bld) [#/Vol] 278 10*3/uL Normal 150-450 [facility] Comment on above: Performed By: #### L 499.0042 #### [facility] [address] [place], [address] RBC (Bld) [#/Vol] 4.44 10*6/uL Low 4.6-6.2 [facility] Comment on above: Performed By: #### L 499.0042 #### [facility] [address] [place], [address] RDW SD 36.4 fl Normal 35.1-43.9 [facility] Comment on above: Performed By: #### L 499.0042 #### [facility] [address] [place], [address] WBC (Bld) [#/Vol] 5.9 10*3/uL Normal 4.4-11.0 [facility] Comment on above: Performed By: #### L 499.0042 #### [facility] [address] [place], [address] Calculated very low density lipoprotein (VLDL) cholesterol measurementOrdered By: Giovani Membreno on 03-05-2025 Calculated very low density lipoprotein (VLDL) cholesterol measurement 22 mg/dL 5-40 [facility] Carbon dioxide, total [Moles /volume] in Central venous bloodOrdered By: Giovani Membreno on 03-05-2025 CO2 [Moles/Vol] 23.0 mmol/L 21.0-32.0 [facility] Cardiovascular stress test r eportOrdered By: Emanuel Capps on 03-05-2025 Study report [facility] [address] [place] [address] MR#: [id number] Acct: [id number] Name: VICTOR HUGO ASIF Rep #: [id number] ~ Date Dictated: 03/05/251808 Date Transcribed: 03/05/251808 Wheel Loader Operator: CO Signed [facility] Other Phone: Chloride assayOrdered By: Bob Membreno on 03-05-2025 Chloride [Moles/Vol] 104 mmol/L 98-108 [facility] Discharge Instructionon Discharge Instruction [facility] Medical Records Department [address] [place] [address] Instructions for Home/Discharge Instructions 03/05/25 1713 MR#: [id number] Acct: [id number] Name: VICTOR HUGO ASIF Rep #: [id number] : 1985 39 From: Hoa Haskins MD [...] DO; Dr. Ranjit Azar DO Signed Normal [facility] Echocardiogram study reportO rdered By: Emanuel Capps on 03-05-2025 Study report [facility] [address] [place] [address] Echo Complete 03/05/25 1036 MR#: [id number] Acct: [id number] Name: VICTOR HUGO ASIF Rep #:[id number] : 1985 39 From: Emanuel ePterson Attending Dr: Dr. Hoa Haskins MD Status: [...] Dr. Hoa Haskins MD ~ Date Dictated: 03/05/25 1036 Date Transcribed: 03/05/251653 Wheel Loader Operator: Signed [facility] Other Phone: Electrocardiogram reportOrde red By: Emanuel Capps on 03-05-2025 EKG study [facility] Cardiovascular Services [address] [place] [address] 12 Lead EKG 03/04/25 1123 MR#: [id number] Acct: [id number] Name: VICTOR HUGO ASIF Rep #:[id number] : 1985 39 From: Emanuel Capps MD Attending Dr: Dr. Hoa Haskins MD Status: ADM TERESA Ordering Dr: Timothy Chao ate: 03/04/25 Location: [facility] Sex: M AA Admitted: 03/04/25 Test Reason [...] Abnormal ECG Confirmed by GÉNESIS JOSEPH, EMANUEL ([id number]), general expeditor LAURY WALTON ([id number]) on 03/05/2025 9:10:14 AM Referred By: JEAN/EPIFANIO Confirmed By: EMANUEL CAPPS MD 03/05/25909 Date _ Emanuel Capps MD CC: Dr. Timothy Chao DO; Dr. Ranjit Azar DO; Dr. Hoa Haskins MD ~ Signed [facility] Other Phone: Erythrocyte distribution wid th ratioOrdered By: Giovani Membreno on 03-05-2025 Erythrocyte distribution width (RBC) [Ratio] 12.0 % 11.6-14.6 [facility] Erythrocyte distribution wid th standard deviationOrdered By: Giovani Membreno on 03-05-2025 Erythrocyte distribution width (RBC) [Ratio] 36.4 fl 35.1-43.9 [facility] Glomerular filtration rate ( GFR) estimation/1.73 sq m using serum, plasma, or whole bOrdered By: Giovani Membreno on 03-05-2025 GFR/1.73 sq M.predicted among non-blacks MDRD (S/P/Bld) [Vol rate/Area] 111 mL/min/{1.73_m2} >60 [facility] Comment on above: mL/min/1.73m2 CKD-EP I Creatinine Equation (2020) [facility] deOrdered By: Hoa Haskins on 03-05-2025 Glucose [Mass/Vol] 149 mg/dL High 74-106 [facility] Comment on above: MANAGEMENT OF PATIEN T CARE PER NURSING PROTOCOL Glucose [Mass/Vol] 192 mg/dL High 74-106 [facility] Comment on above: MANAGEMENT OF PATIEN T CARE PER NURSING PROTOCOL Hematocrit Auto (Bld) [Volum e fraction]Ordered By: Giovani Membreno on 03-05-2025 Hematocrit (Bld) [Volume fraction] 37.2 % Low 40-54 [facility] Hemoglobin measurementOrdere d By: Giovani Membreno on 03-05-2025 Hemoglobin (Bld) [Mass/Vol] 12.0 g/dL Low 13.0-16.5 [facility] LDL calc ser/plasOrdered By: Giovani Membreno on 03-05-2025 Cholesterol in LDL [Mass/Vol] 68 mg/dL [facility] Comment on above: Gapxhtyblo=698-526 m g/dL & Higher Qycc=406 mg/dL or greaterFriedwald Equation for LDL-C Lipid Profileon 03-05-2025 CHOL:HDL 2.55 Normal [facility] Comment on above: Performed By: #### L 499.0042 #### [facility] [address] [facility] [address] (793) Cholesterol [Mass/Vol] 149 mg/dL Normal <=200 [facility] Comment on above: Result Comment: Chol esterol level, Desirable <200 mg/dL Borderline high cholesterol 200-239 mg/dL High cholesterol >=240 mg/dL Recommendations of the NCEP Adult Treatment Panel for the following risk-cutoff thresholds for the [place] population. Performed By: #### L 499.0042 #### [facility] [address] [place], [address] Cholesterol in HDL [Mass/Vol] 58 mg/dL Normal [facility] Comment on above: Result Comment: [place] on[place] Cholesterol Education Program (NCEP) guidelines: <40 mg/dL: Low HDL-cholesterol (major risk factor for CHD) >= 60 mg/dL: High HDL-cholesterol (negative risk factor for CHD) HDL-cholesterol is affected by a number of factors, e.g. smoking, exercise, hormones, sex and age. Performed By: #### L 499.0042 #### [facility] [address] [place], [address] Cholesterol in LDL [Mass/Vol] 68 mg/dL Normal [facility] Comment on above: Result Comment: Bord qrlajb=163-591 mg/dL Higher Uxhd=579 mg/dL or greater Friedwald Equation for LDL-C Performed By: #### L 499.0042 #### [facility] [address] [place], [place], [address] Cholesterol in VLDL [Mass/Vol] 22 mg/dL Normal 5-40 [facility] Comment on above: Performed By: #### L 499.0042 #### [facility] [address] [place], [place], [address] Triglyceride [Mass/Vol] 111 mg/dL Normal [facility] Comment on above: Result Comment: The drugs N-Acetylcysteine and Metamizole may falsely depress this assay. Normal range: <150 mg/dL Borderline High: 150-199 mg/dL High: 200-499 mg/dL Very High: >500 mg/dL Performed By: #### L 499.0042 #### [facility] [address] [place], [place], [id number] MCV (mean corpuscular volume ) determinationOrdered By: Giovani Membreno on 03-05-2025 MCV (RBC) [Entitic vol] 83.8 fL 80-94 [facility] Mean corpuscular hemoglobin (MCH) determinationOrdered By: Giovani Membreno on 03-05-2025 MCH (RBC) [Entitic mass] 27.0 pg 27.0-32.0 [facility] Mean corpuscular hemoglobin concentration (MCHC) determinationOrdered By: Giovani Membreno on 03-05-2025 MCHC (RBC) [Mass/Vol] 32.3 g/dL 32-36 [facility] Mean platelet volume determi nationOrdered By: Giovani Membreno on 03-05-2025 Platelet mean volume (Bld) [Entitic vol] 10.4 fL 6.2-12.0 [facility] Platelet countOrdered By: Bob Membreno on 03-05-2025 Platelets (Bld) [#/Vol] 278 10*3/uL 150-450 [facility] Potassium measurement (mass/ volume)Ordered By: Giovani Membreno on 03-05-2025 Potassium (Unsp spec) [Mass/Vol] 3.8 mmol/L 3.3-5.1 [facility] RBC Auto (Bld) [#/Vol]Ordere d By: Giovani Membreno on 03-05-2025 RBC (Bld) [#/Vol] 4.44 10*6/uL Low 4.6-6.2 [facility] Screening total cholesterol/ high density lipoprotein (HDL) cholesterol ratioOrdered By: Giovani Membreno on 03-05-2025 Cholesterol.total/Cho lesterol in HDL [Mass ratio] 2.55 {ratio} [facility] Serum creatinine measurement (mass/volume)Ordered By: Giovani Membreno on 03-05-2025 Creatinine [Mass/Vol] 0.87 mg/dL 0.70-1.20 [facility] Serum glucose measurement (m ass/volume)Ordered By: Giovani Membreno on 03-05-2025 Glucose [Mass/Vol] 135 mg/dL High 70-99 [facility] Serum or plasma calcium yanelis urement (mass/volume)Ordered By: Giovani Membreno on 03-05-2025 Calcium [Mass/Vol] 9.2 mg/dL 7.6-11.0 [facility] Serum or plasma cholesterol in HDL measurement (mass/volume)Ordered By: Giovani Membreno on 03-05-2025 Cholesterol in HDL [Mass/Vol] 58 mg/dL >40 [facility] [facility] Comment on above: National Cholesterol Education Program (NCEP) guidelines:<40 mg/dL: Low HDL-cholesterol (major risk factor for CHD)>= 60 mg/dL: High HDL-cholesterol (negative risk factor for CHD)HDL-cholesterol is affected by a number of factors, e.g. smoking, exercise, hormones, sex and age. Serum or plasma cholesterol measurement (mass/volume)Ordered By: Giovani Membreno on 03-05-2025 Cholesterol [Mass/Vol] 149 mg/dL <201 [facility] Comment on above: Cholesterol level, D esirable <200 mg/dLBorderline high cholesterol 200-239 mg/dLHigh cholesterol >=240 mg/dLRecommendations of the NCEP Adult Treatment Panel for the following risk-cutoff thresholds for the [place] population. Serum or plasma urea nitroge n measurement (mass/volume)Ordered By: Giovani Membreno on 03-05-2025 Urea nitrogen [Mass/Vol] 11 mg/dL 4-19 [facility] Sodium levelOrdered By: Javid dgdennis Fitzgeraldshreya on 03-05-2025 Sodium [Moles/Vol] 138 mmol/L 133-145 [facility] Stress Reporton 03-05-2025 Stress Report [facility] Cardiovascular Services [address] [place] [address] MR#: [id number] Acct: [id number] Name: VICTOR HUGO ASIF Rep #: [id number] : 1985 39 From: Emanuel Capps MD [...] MD Date Dictated: 03/05/251808 Date Transcribed: 03/05/251808 Wheel Loader Operator: CO Signed Normal [facility] Triglycerides measurementOrd ered By: Giovani Membreno on 03-05-2025 Triglyceride [Mass/Vol] 111 mg/dL <199 [facility] Comment on above: The drugs N-Acetylcy steine and Metamizole may falsely depress this assay. Normal range: <150 mg/dLBorderline High: 150-199 mg/dLHigh: 200-499 mg/dLVery High: >500 mg/dL White blood cell (WBC) count Ordered By: Giovani Membreno on 03-05-2025 WBC (Bld) [#/Vol] 5.9 10*3/uL 4.4-11.0 [facility] 12 Lead EKGon 03-04-[address] [facility] Cardiovascular Services [address] [place] [address] 12 Lead EKG 03/04/25 2321 MR#: [id number] Acct: [id number] Name: VICTOR HUGO ASIF Rep #: [id number] : 1985 39 From: Emanuel Capps MD [...] IS UNCONFIRMED Confirmed by EMANUEL CAPPS MD ([id number]), general expeditor LAURY WALTON ([id number]) on 03/06/2025 7:19:25 AM Referred By: Confirmed By: EMANUEL CAPPS MD 03/06/25 0719 Date Emanuel Capps MD CC: Dr. Giovani Membreno DO; Dr. Ranjit Azar DO; Dr. Hoa Haskins MD Signed [facility] [address] [facility] Cardiovascular Services [address] [place] [address] 12 Lead EKG 03/04/25 1123 MR#: [id number] Acct: [id number] Name: VICTOR HUGO ASIF Rep #: [id number] : 1985 39 From: Emanuel Capps MD Attending Dr: Dr. Hoa Haskins MD Status: JOYCE MOORE Ordering Dr: Timothy Chao DO Date: 5 Location: [facility] Sex: M AA Admitted: 03/04/25 Test Reason [...] Abnormal ECG Confirmed by EMANUEL CAPPS MD ([id number]), general expeditor LAURY WALTON ([id number]) on 03/05/2025 9:10:14 AM Referred By: AK/EPIFANIO Confirmed By: EMANUEL CAPPS MD 03/05/25 0910 Date Emanuel Capps MD CC: Dr. Timothy Chao DO; Dr. Ranjit Azar DO; Dr. Hoa Haskins MD Signed Normal [facility] Absolute lymphocyte countOrd ered By: Timothy Chao on 03-04-2025 Lymphocytes Auto (Unsp spec) [#/Vol] 1.24 10*3/uL 0.83-4.51 [facility] Absolute neutrophil countOrd ered By: Timothy Chao on 03-04-2025 Neutrophils (Bld) [#/Vol] 2.5 10*3/uL 2.0-7.7 [facility] Activated partial thrombopla stin time (aPTT) in platelet poor plasma by coagulation aOrdered By: Timothy Chao on 03-04-2025 aPTT Coag (PPP) [Time] 25.8 s 24.1-36.2 [facility] Automated lymphocyte count a s percentage of total leukocytesOrdered By: Timothyely Chao on 03-04-2025 Lymphocytes/100 WBC Auto (Unsp spec) 29.7 % 19-41 [facility] Basic Metabolic Profile (BMP )on 03-04-2025 BUN/CRE 12.6 RATIO Normal 10-20 [facility] Comment on above: Performed By: #### L 300.3900, L503.7505, L100.0100, L500.2500, L501.4021, L300.4310, L300.8000 #### [facility] Laboratory [address] [place], [address] Calcium [Mass/Vol] 9.4 mg/dL Normal 7.6-11.0 [facility] Comment on above: Performed By: #### L 300.3900, L503.7505, L100.0100, L500.2500, L501.4021, L300.4310, L300.8000 #### [facility] Laboratory [address] [place], [address] Chloride [Moles/Vol] 103 mmol/L Normal 98-108 [facility] Comment on above: Performed By: #### L 300.3900, L503.7505, L100.0100, L500.2500, L501.4021, L300.4310, L300.8000 #### [facility] Laboratory [address] [place], [address] CO2 [Moles/Vol] 24.4 mmol/L Normal 21.0-32.0 [facility] Comment on above: Performed By: #### L 300.3900, L503.7505, L100.0100, L500.2500, L501.4021, L300.4310, L300.8000 #### [facility] Laboratory [address] [place], [address] Creatinine [Mass/Vol] 0.97 mg/dL Normal 0.70-1.20 [facility] Comment on above: Performed By: #### L 300.3900, L503.7505, L100.0100, L500.2500, L501.4021, L300.4310, L300.8000 #### [facility] Laboratory [address] [place], [address] ECRCL 105.86 ml/min Normal 50-250 [facility] Comment on above: Performed By: #### L 300.3900, L503.7505, L100.0100, L500.2500, L501.4021, L300.4310, L300.8000 #### [facility] Laboratory [address] [place], [address] GAP 11 Normal 5-15 [facility] Comment on above: Performed By: #### L 300.3900, L503.7505, L100.0100, L500.2500, L501.4021, L300.4310, L300.8000 #### [facility] Laboratory [address] [place], [address] GFR/1.73 sq M.predicted among non-blacks MDRD (S/P/Bld) [Vol rate/Area] 101 mL/min/{1.73_m2} Normal >60 [facility] Comment on above: Result Comment: mL/m in/1.73m2 CKD-EPI Creatinine Equation (2020) Performed By: #### L 300.3900, L503.7505, L100.0100, L500.2500, L501.4021, L300.4310, L300.8000 #### [facility] Laboratory [address] [place], [address] Glucose [Mass/Vol] 167 mg/dL High 70-99 [facility] Comment on above: Performed By: #### L 300.3900, L503.7505, L100.0100, L500.2500, L501.4021, L300.4310, L300.8000 #### [facility] Laboratory [address] [place], [address] Potassium [Moles/Vol] 4.0 mmol/L Normal 3.3-5.1 [facility] Comment on above: Performed By: #### L 300.3900, L503.7505, L100.0100, L500.2500, L501.4021, L300.4310, L300.8000 #### [facility] Laboratory [address] [place], [address] Sodium [Moles/Vol] 139 mmol/L Normal 133-145 [facility] Comment on above: Performed By: #### L 300.3900, L503.7505, L100.0100, L500.2500, L501.4021, L300.4310, L300.8000 #### [facility] Laboratory [address] [place], [address] Urea nitrogen [Mass/Vol] 12 mg/dL Normal 4-19 [facility] Comment on above: Performed By: #### L 300.3900, L503.7505, L100.0100, L500.2500, L501.4021, L300.4310, L300.8000 #### [facility] Laboratory [address] [place], [address] Basophil percentageOrdered B y: Timothy Chao on 03-04-2025 Basophils/100 WBC (Bld) 1.0 % 0-1 [facility] Bedside Glucoseon 03-04-2025 FINGERSTICK GLU 124 mg/dL High 74-106 [facility] Comment on above: Result Comment: CYNTHIA GEMENT OF PATIENT CARE PER NURSING PROTOCOL Performed By: #### L 501.080 #### [facility] Laboratory [address] [place], [address] FINGERSTICK GLU 113 mg/dL High 74-106 [facility] Comment on above: Result Comment: CYNTHIA GEMENT OF PATIENT CARE PER NURSING PROTOCOL Performed By: #### L 501.080 #### [facility] Laboratory [address] [place], [address] CBC W/Diff, Automatedon 02-05 Absolute Lymph 1.24 X10 3/uL Normal 0.83-4.51 [facility] Comment on above: Performed By: #### L 300.3900, L503.7505, L100.0100, L500.2500, L501.4021, L300.4310, L300.8000 #### [facility] Laboratory [address] [place], [address] Absolute Neut 2.5 X10 3/uL Normal 2.0-7.7 [facility] Comment on above: Performed By: #### L 300.3900, L503.7505, L100.0100, L500.2500, L501.4021, L300.4310, L300.8000 #### [facility] Laboratory [address] [place], [address] Basophils/100 WBC (Bld) 1.0 % Normal 0-1 [facility] Comment on above: Performed By: #### L 300.3900, L503.7505, L100.0100, L500.2500, L501.4021, L300.4310, L300.8000 #### [facility] Laboratory [address] [place], [address] Eosinophils/100 WBC (Bld) 0.7 % Normal 0-5 [facility] Comment on above: Performed By: #### L 300.3900, L503.7505, L100.0100, L500.2500, L501.4021, L300.4310, L300.8000 #### [facility] Laboratory [address] [place], [address] Erythrocyte distribution width (RBC) [Ratio] 12.0 % Normal 11.6-14.6 [facility] Comment on above: Performed By: #### L 300.3900, L503.7505, L100.0100, L500.2500, L501.4021, L300.4310, L300.8000 #### [facility] Laboratory [address] [facility] [place], [address] Hematocrit (Bld) [Volume fraction] 37.5 % Low 40-54 [facility] Comment on above: Performed By: #### L 300.3900, L503.7505, L100.0100, L500.2500, L501.4021, L300.4310, L300.8000 #### [facility] Laboratory [address] [facility] [place], [address] Hemoglobin (Bld) [Mass/Vol] 12.4 g/dL Low 13.0-16.5 [facility] Comment on above: Performed By: #### L 300.3900, L503.7505, L100.0100, L500.2500, L501.4021, L300.4310, L300.8000 #### [facility] Laboratory [address] [place], [address] IG% 0.500 Normal 0.0-0.9 [facility] Comment on above: Result Comment: IG% - Immature Granulocytes (promyelocytes, myelocytes and metamyelocytes) > 1% indicates that a LEFT SHIFT is Present. Performed By: #### L 300.3900, L503.7505, L100.0100, L500.2500, L501.4021, L300.4310, L300.8000 #### [facility] Laboratory [address] [place], [address] Lymphocytes/100 WBC (Bld) 29.7 % Normal 19-41 [facility] Comment on above: Performed By: #### L 300.3900, L503.7505, L100.0100, L500.2500, L501.4021, L300.4310, L300.8000 #### [facility] Laboratory [address] [place], [address] MCH (RBC) [Entitic mass] 27.6 pg Normal 27.0-32.0 [facility] Comment on above: Performed By: #### L 300.3900, L503.7505, L100.0100, L500.2500, L501.4021, L300.4310, L300.8000 #### [facility] Laboratory [address] [place], [address] MCHC (RBC) [Mass/Vol] 33.1 g/dL Normal 32-36 [facility] Comment on above: Performed By: #### L 300.3900, L503.7505, L100.0100, L500.2500, L501.4021, L300.4310, L300.8000 #### [facility] Laboratory [address] [place], [address] MCV (RBC) [Entitic vol] 83.3 fL Normal 80-94 [facility] Comment on above: Performed By: #### L 300.3900, L503.7505, L100.0100, L500.2500, L501.4021, L300.4310, L300.8000 #### [facility] Laboratory [address] [place], [address] Monocytes/100 WBC (Bld) 7.2 % Normal 0-10 [facility] Comment on above: Performed By: #### L 300.3900, L503.7505, L100.0100, L500.2500, L501.4021, L300.4310, L300.8000 #### [facility] Laboratory [address] [place], [address] Neutrophils/100 WBC (Bld) 60.9 % Normal 47-70 [facility] Comment on above: Performed By: #### L 300.3900, L503.7505, L100.0100, L500.2500, L501.4021, L300.4310, L300.8000 #### [facility] Laboratory [address] [place], [address] Nucleated RBC (Bld) [#/Vol] 0 10*3/uL Normal 0-5 [facility] Comment on above: Performed By: #### L 300.3900, L503.7505, L100.0100, L500.2500, L501.4021, L300.4310, L300.8000 #### [facility] Laboratory [address] [facility] [place], [address] Platelet mean volume (Bld) [Entitic vol] 11.3 fL Normal 6.2-12.0 [facility] Comment on above: Performed By: #### L 300.3900, L503.7505, L100.0100, L500.2500, L501.4021, L300.4310, L300.8000 #### [facility] Laboratory [address] [place], [address] Platelets (Bld) [#/Vol] 254 10*3/uL Normal 150-450 [facility] Comment on above: Performed By: #### L 300.3900, L503.7505, L100.0100, L500.2500, L501.4021, L300.4310, L300.8000 #### [facility] Laboratory [address] [place], [address] RBC (Bld) [#/Vol] 4.50 10*6/uL Low 4.6-6.2 [facility] Comment on above: Performed By: #### L 300.3900, L503.7505, L100.0100, L500.2500, L501.4021, L300.4310, L300.8000 #### [facility] Laboratory [address] [place], [address] RDW SD 36.6 fl Normal 35.1-43.9 [facility] Comment on above: Performed By: #### L 300.3900, L503.7505, L100.0100, L500.2500, L501.4021, L300.4310, L300.8000 #### [facility] Laboratory [address] [place], [address] WBC (Bld) [#/Vol] 4.2 10*3/uL Low 4.4-11.0 [facility] Comment on above: Performed By: #### L 300.3900, L503.7505, L100.0100, L500.2500, L501.4021, L300.4310, L300.8000 #### [facility] Laboratory [address] [place], [address] Chest PA and Lateralon 03-04 Chest PA and Lateral [facility] Imaging Services [address] [place] [address] Chest PA and Lateral MR#: [id number] Acct: [id number] Name: VICTOR HUGO ASIF Rep #: [id number] : 1985 M 39 From: Felipe Hawk MD PCP: Dr. Ranjit Azar, DO Status: [facility] ER Study: Chest PA and Lateral Date of Exam: 03/04/25 Exam# [id number] Ordering Dr: Timothy Chao DO PROCEDURE: CHEST PA AND LATERAL 03/04/2025 REASON FOR EXAM: CHEST PAIN TECHNIQUE: Procedure Code: RADCXR Modality: DX Procedure: CHEST PA AND LATERAL COMPARISON: March 01, 2024 FINDINGS: Hardware: None Heart: Normal Mediastinum: Normal Lungs: Clear Bones: The bones are unremarkable. RAD/Chest PA and Lateral IMPRESSION: No acute cardiopulmonary process Reading Location: [id number] CC: Dr. Timothy Chao, DO; Dr. Ranjit Azar, DO Wheel Loader Operator: Signed Normal [facility] D-Dimer Quantitative (DVT/PE )on 03-04-2025 D-DIMER QUANT 0.43 FEU/ug/m Normal 0.27-0.49 [facility] Comment on above: Result Comment: NORM AL D-Dimer level (<0.50) indicates no DVT or PE. Performed By: #### L 300.3900, L503.7505, L100.0100, L500.2500, L501.4021, L300.4310, L300.8000 ####[facility] [address] [facility] [place], [address] Echo Completeon 03-04-2025 Echo Complete [facility] Cardiovascular Services [address] [place] [address] Echo Complete 03/05/25 1036 MR#: [id number] Acct: [id number] Name: VICTOR HUGO ASIF Rep #: [id number] : 1985 39 From: Emanuel Capps MD [...] MD Date Dictated: 03/05/251035 Date Transcribed: 03/05/251653 Wheel Loader Operator: Signed Normal [facility] Emergency Department Summary on 03-04-2025 Emergency Department Summary [facility] Medical Records Department [address] [place] [address] Emergency Department Summary 03/04/25 MR#: [id number] Acct: [id number] Name: VICTOR HUGO ASIF Rep #: [id number] : 1985 39 From: Timothy Chao DO [...] intact Psych: Cooperative, appropriate mood and affect [facility] Medical History Acute gangrenous cholecystitis Acute [...] % (Auto) (more content not included)... Normal [facility] Eosinophil percentageOrdered By: Timothy Chao on 03-04-2025 Eosinophils/100 WBC (Bld) 0.7 % 0-5 [facility] H AND P Exam - Hospitaliston 03-04-2025 H&P Exam - Hospitalist [facility] Medical Records Department [address] [place] [address] H P Exam - Hospitalist 03/04/25 1458 MR#: [id number] Acct: [id number] Name: VICTOR HUGO ASIF Rep #: [id number] : 1985 39 From: Giovani Membreno DO PCP: Dr. Ranjit Azar, DO Status:[facility] Location: [place] [address] HPI - General General Date of Admission: 03/04/25 Date of Service: 03/04/25 Chief Complaint: Chest pain HPI Narrative VICTOR HUGO ASIF, is a 39 M who presented to [facility] ED on 03/04/2025 with chest pain. Medical [...] He denies any other acute concerns currently. [facility], [facility] Medical History Acute gangrenous cholecystitis Acute [...] hearing grossly (more content not included)... Normal [facility] Hemoglobin A1con 03-04-2025 HbA1c (Bld) [Mass fraction] 8.5 % High <=5.6 [facility] Comment on above: Result Comment: Norm al < 5.7 % Prediabetic 5.7 - 6.4 % Diabetic >or= 6.5 % Please note range changes. Performed By: #### L 501.9294 #### [facility] Laboratory [facility] [place], [address] Hemoglobin A1c percentageOrd ered By: Giovani Membreno on 03-04-2025 HbA1c (Bld) [Mass fraction] 8.5 % High <5.7 [facility] Comment on above: Normal < 5.7 % Predi abetic 5.7 - 6.4 % Diabetic >or= 6.5 % Please note range changes. Immature granulocytes/100 WB C Auto (Bld)Ordered By: Timothy Chao on 03-04-2025 Immature granulocytes/100 WBC (Bld) 0.500 % 0.0-0.9 [facility] Comment on above: IG% - Immature Granu locytes (promyelocytes, myelocytes and metamyelocytes) > 1% indicates that a LEFT SHIFT is Present. International normalized rat io (INR) calculationOrdered By: Timothy Chao on 03-04-2025 INR Coag (Bld) [Relative time] 0.9 {INR} [facility] L501.4021on 03-04-2025 Trop T High Sen 15 ng/L Normal <=22 [facility] Comment on above: Performed By: #### L 300.3900, L503.7505, L100.0100, L500.2500, L501.4021, L300.4310, L300.8000 #### [facility] Laboratory [address] [place], [address] Monocyte percentageOrdered B y: Timothy Chao on 03-04-2025 Monocytes/100 WBC (Bld) 7.2 % 0-10 [facility] Natriuretic peptide.B prohor delphine N-Terminal [Mass/volume] in Serum or PlasmaOrdered By: Timothy Chao on 03-04-2025 Natriuretic peptide.B prohormone N-Terminal [Mass/Vol] 62 pg/mL <450 [facility] Comment on above: Heart Failure Unlike ly: < 300 pg/mLHeart Failure Likely< 50 Years: > 450 pg/mL50-75 Years: > 900 pg/mL>75 Years: > 1800 pg/mL Neutrophil percentageOrdered By: Timothy Chao on 03-04-2025 Neutrophils/100 WBC (Bld) 60.9 % 47-70 [facility] Nucleated red blood cell per centageOrdered By: Timothyely Chao on 03-04-2025 Nucleated RBC/100 WBC (Bld) [Ratio] 0 % 0-5 [facility] Partial Thromboplast Timeon 03-04-2025 aPTT Coag (Bld) [Time] 25.8 s Normal 24.1-36.2 [facility] Comment on above: Performed By: #### L 300.3900, L503.7505, L100.0100, L500.2500, L501.4021, L300.4310, L300.8000 ####[facility] [address] [place], [place], [id number] Pro- Brain NATRIURETIC PEPTI Carlos 03-04-2025 Natriuretic peptide B (Bld) [Mass/Vol] 62 pg/mL Normal <=450 [facility] Comment on above: Result Comment: Hear t Failure Unlikely: < 300 pg/mL Heart Failure Likely < 50 Years: > 450 pg/mL 50-75 Years: > 900 pg/mL >75 Years: > 1800 pg/mL Performed By: #### L 300.3900, L503.7505, L100.0100, L500.2500, L501.4021, L300.4310, L300.8000 ####[facility] [address] [place], [address] Prothrombin Time w/INRon INR Coag (PPP) [Relative time] 0.9 {INR} Normal [facility] Comment on above: Performed By: #### L 300.3900, L503.7505, L100.0100, L500.2500, L501.4021, L300.4310, L300.8000 ####[facility] [address] [place], [address] PT Coag (PPP) [Time] 12.7 s Normal 11.7-14.9 [facility] Comment on above: Performed By: #### L 300.3900, L503.7505, L100.0100, L500.2500, L501.4021, L300.4310, L300.8000 ####[facility] [address] [place], [address] Prothrombin timeOrdered By: Timothy Chao on 03-04-2025 PT Coag (PPP) [Time] 12.7 s 11.7-14.9 [facility] Troponin T HS 2 HRon 025 Trop T High Sen 10 ng/L Normal <=22 [facility] Comment on above: Performed By: #### L 499.0042 #### [facility] Laboratory [address] [place], [address] Troponin T.cardiac [Mass/vol ume] in Serum or Plasma by High sensitivity methodOrdered By: Timothy Chao on 03-04-2025 Troponin T.cardiac High sensitivity method [Mass/Vol] 10 ng/L <22 [facility] Troponin T.cardiac High sensitivity method [Mass/Vol] 15 ng/L <22 [facility] CNPNon 01-28-2025 [facility] VICTOR HUGO ASIF ([id number]) 1985 Date Time Provider Department 01/28/25 RANJIT AZAR [facility] During your visit today, we recorded the [...] Date Reviewed: 01/27/2025 Reviewed by: Lance Pulido APRN.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 - Fully Assessed Reason for Visit: Insurance Authorization [[id number]] Cmt: Lico 3 sensors Prescriptions as of [...] Encounter Status:Closed by LANCE PULIDO on 02/05/25 [facility] CNOVon 01-27-2025 [facility]OV [facility] VICTOR HUGO ASIF ([id number]) 1985 M Date Time Provider Department 01/27/25 10:20 AM [facility] During your visit today, we recorded the following information about you: Pulse Respiration Blood pressure Weight 93/minute 16/minute 133/80 91.9 kg Lance Pulido APRN.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 01/27/2025 12:30 PM Addendum This is a 39 year old male who presents today with: Victor Hugo Asif is a 39-year-old male with a history of type 2 diabetes mellitus, HTN, and migraines, presenting for follow-up. HISTORY OF PRESENT ILLNESS: Type 2 Diabetes Mellitus: - Diagnosed in [phone] - Previously on Trulicity and Tresiba; discontinued [...] horns. - no recent seizures reported, follows [facility] neurology Dr Owens last seen 12/20 Vitamin D Deficiency: - Previously on vitamin D3; discontinued. - Last level was 9.1 ng/mL, 7 months ago. Vision: - Wears glasses; last eye exam within the past year at [facility] per patient - Diagnosed with something he can't recall that they said surgery would be indicated possibly - Interested in LASIK surgery. 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 - Cooks meals from scratch, avoids cooking oil. 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 Normal [facility] HEMOGLOBIN A1C (POC)on 01-27 HbA1c (Bld) [Mass fraction] 12.7 % Abnormal 4.3 - 5.6 % [facility] Comment on above: Location:[address], [place], [address] Point of care (POC) Hemoglobin A1c (HGBA1C) [...] specific diabetes management situations: The POC device floral manager provides a normal range of 4.2% to 6.5% for the HGBA1C POC test. However, the [place] [employer] guidelines indicate that patients with [...] review of laboratory results Abnormal [facility] Absolute lymphocyte countOrd ered By: Javid Winter on 01-21-2025 Lymphocytes Auto (Unsp spec) [#/Vol] 1.72 10*3/uL 0.83-4.51 [facility] Absolute neutrophil countOrd ered By: Javid Winter on 01-21-2025 Neutrophils (Bld) [#/Vol] 3.8 10*3/uL 2.0-7.7 [facility] Anion gap in Serum or Plasma Ordered By: Javid Winter on 01-21-2025 Anion gap [Moles/Vol] 11 mmol/L - [facility] Automated lymphocyte count a s percentage of total leukocytesOrdered By: Javid Winter on 01-21-2025 Lymphocytes/100 WBC Auto (Unsp spec) 28.4 % [facility] BUN/creatinine ratioOrdered By: Javid Winter on 01-21-2025 Urea nitrogen/Creatinine [Mass ratio] 9.2 mg/mg Low 10- [facility] Basic Metabolic Profile (BMP )on 01-21-2025 BUN/CRE 9.2 RATIO Low - [facility] Comment on above: Performed By: #### L 100.0100, L500.2500, L501.5200 ####[facility] [address] [place], [address] Calcium [Mass/Vol] 9.8 mg/dL Normal 7.6-11.0 [facility] Comment on above: Performed By: #### L 100.0100, L500.2500, L501.5200 ####[facility] [address] [place], [address] Chloride [Moles/Vol] 99 mmol/L Normal 98-108 [facility] Comment on above: Performed By: #### L 100.0100, L500.2500, L501.5200 ####[facility] [address] [place], [address] CO2 [Moles/Vol] 23.7 mmol/L Normal 21.0-32.0 [facility] Comment on above: Performed By: #### L 100.0100, L500.2500, L501.5200 ####[facility] [address] [place], [address] Creatinine [Mass/Vol] 1.42 mg/dL High 0.70-1.20 [facility] Comment on above: Performed By: #### L 100.0100, L500.2500, L501.5200 ####[facility] [address] [place], [address] ECRCL 71.96 ml/min Normal 50-250 [facility] Comment on above: Performed By: #### L 100.0100, L500.2500, L501.5200 ####[facility] [address] [place], [address] GAP 11 Normal 5-15 [facility] Comment on above: Performed By: #### L 100.0100, L500.2500, L501.5200 ####[facility] [address] [place], [address] GFR/1.73 sq M.predicted among non-blacks MDRD (S/P/Bld) [Vol rate/Area] 64 mL/min/{1.73_m2} Normal >60 [facility] Comment on above: Result Comment: mL/m in/1.73m2 CKD-EPI Creatinine Equation (2020) Performed By: #### L 100.0100, L500.2500, L501.5200 ####[facility] [address] [place], [address] Glucose [Mass/Vol] 440 mg/dL High 70-99 [facility] Comment on above: Performed By: #### L 100.0100, L500.2500, L501.5200 ####[facility] [address] [place], [address] Potassium [Moles/Vol] 4.5 mmol/L Normal 3.3-5.1 [facility] Comment on above: Performed By: #### L 100.0100, L500.2500, L501.5200 ####[facility] [address] [place], [address] Sodium [Moles/Vol] 134 mmol/L Normal 133-145 [facility] Comment on above: Performed By: #### L 100.0100, L500.2500, L501.5200 ####[facility] [address] [place], [address] Urea nitrogen [Mass/Vol] 13 mg/dL Normal 4-19 [facility] Comment on above: Performed By: #### L 100.0100, L500.2500, L501.5200 ####[facility] [address] [place], [address] Basophil percentageOrdered B y: Javid Winter on 01-21-2025 Basophils/100 WBC (Bld) 0.8 % 0-1 [facility] Brain/Head without Contrasto n 01-21-2025 Brain/Head without Contrast [facility] Imaging Services [address] [place], [place] [address] Brain/Head without Contrast MR#: [id number] Acct: [id number] Name: VICTOR HUGO ASIF Rep #: [id number] : 1985 M 39 From: Jasen Palacios MD PCP: Dr. Ranjit Azar DO Status: REG ER Study: Brain/Head without Contrast Date of Exam: 01/03 02/27 Exam# [id number] Ordering Dr: Javid Winter MD EXAM: NONCONTRAST [...] Javid Winter MD; Dr. Ranjit Azar DO Wheel Loader Operator: Signed Normal [facility] CBC W/Diff, Automatedon 01-03 Absolute Lymph 1.72 X10 3/uL Normal 0.83-4.51 [facility] Comment on above: Performed By: #### L 100.0100, L500.2500, L501.5200 ####[facility] [address] [place], [address] Absolute Neut 3.8 X10 3/uL Normal 2.0-7.7 [facility] Comment on above: Performed By: #### L 100.0100, L500.2500, L501.5200 ####[facility] [address] [place], [address] Basophils/100 WBC (Bld) 0.8 % Normal 0-1 [facility] Comment on above: Performed By: #### L 100.0100, L500.2500, L501.5200 ####[facility] [address] [place], [address] Eosinophils/100 WBC (Bld) 0.3 % Normal 0-5 [facility] Comment on above: Performed By: #### L 100.0100, L500.2500, L501.5200 ####[facility] [address] [place], [address] Erythrocyte distribution width (RBC) [Ratio] 11.7 % Normal 11.6-14.6 [facility] Comment on above: Performed By: #### L 100.0100, L500.2500, L501.5200 ####[facility] [address] [place], [address] Hematocrit (Bld) [Volume fraction] 40.6 % Normal 40-54 [facility] Comment on above: Performed By: #### L 100.0100, L500.2500, L501.5200 ####[facility] [address] [place], [address] Hemoglobin (Bld) [Mass/Vol] 13.7 g/dL Normal 13.0-16.5 [facility] Comment on above: Performed By: #### L 100.0100, L500.2500, L501.5200 ####[facility] [address] [place], [address] IG% 0.300 Normal 0.0-0.9 [facility] Comment on above: Result Comment: IG% - Immature Granulocytes (promyelocytes, myelocytes and metamyelocytes) > 1% indicates that a LEFT SHIFT is Present. Performed By: #### L 100.0100, L500.2500, L501.5200 ####[facility] [address] [place], [address] Lymphocytes/100 WBC (Bld) 28.4 % Normal 19-41 [facility] Comment on above: Performed By: #### L 100.0100, L500.2500, L501.5200 ####[facility] [address] [place], [address] MCH (RBC) [Entitic mass] 26.8 pg Low 27.0-32.0 [facility] Comment on above: Performed By: #### L 100.0100, L500.2500, L501.5200 ####[facility] [address] [place], [address] MCHC (RBC) [Mass/Vol] 33.7 g/dL Normal 32-36 [facility] Comment on above: Performed By: #### L 100.0100, L500.2500, L501.5200 ####[facility] [address] [place], [address] MCV (RBC) [Entitic vol] 79.3 fL Low 80-94 [facility] Comment on above: Performed By: #### L 100.0100, L500.2500, L501.5200 ####[facility] [address] [place], [address] Monocytes/100 WBC (Bld) 7.4 % Normal 0-10 [facility] Comment on above: Performed By: #### L 100.0100, L500.2500, L501.5200 ####[facility] [address] [place], [address] Neutrophils/100 WBC (Bld) 62.8 % Normal 47-70 [facility] Comment on above: Performed By: #### L 100.0100, L500.2500, L501.5200 ####[facility] [address] [place], [address] Nucleated RBC (Bld) [#/Vol] 0 10*3/uL Normal 0-5 [facility] Comment on above: Performed By: #### L 100.0100, L500.2500, L501.5200 ####[facility] [address] [place], [address] Platelet mean volume (Bld) [Entitic vol] 11.1 fL Normal 6.2-12.0 [facility] Comment on above: Performed By: #### L 100.0100, L500.2500, L501.5200 ####[facility] [address] [place], [address] Platelets (Bld) [#/Vol] 270 10*3/uL Normal 150-450 [facility] Comment on above: Performed By: #### L 100.0100, L500.2500, L501.5200 ####[facility] [address] [place], [address] RBC (Bld) [#/Vol] 5.12 10*6/uL Normal 4.6-6.2 [facility] Comment on above: Performed By: #### L 100.0100, L500.2500, L501.5200 ####[facility] [address] [place], [address] RDW SD 33.7 fl Low 35.1-43.9 [facility] Comment on above: Performed By: #### L 100.0100, L500.2500, L501.5200 ####[facility] [address] [place], [address] WBC (Bld) [#/Vol] 6.1 10*3/uL Normal 4.4-11.0 [facility] Comment on above: Performed By: #### L 100.0100, L500.2500, L501.5200 ####[facility] [address] [place], [address] Carbon dioxide, total [Moles /volume] in Central venous bloodOrdered By: Javid Winter on 01-21-2025 CO2 [Moles/Vol] 23.7 mmol/L 21.0-32.0 [facility] Chloride assayOrdered By: Bob Winter on 01-21-2025 Chloride [Moles/Vol] 99 mmol/L 98-108 [facility] Emergency Department Summary on 01-21-2025 Emergency Department Summary [facility] Medical Records Department [address] [place] [address] Emergency Department Summary 01/21/25 MR#: [id number] Acct: [id number] Name: VICTOR HUGO ASIF Rep #: [id number] : 1985 39 From: Javid Winter MD PCP: Dr. Ranjit Azar, DO Status:[facility] ER Location: ED HPI History of Present [...] recent nausea or vomiting, no other symptoms. [facility] Medical History Acute gangrenous cholecystitis Acute [...] MPV 11.1 (more content not included)... Normal [facility] Eosinophil percentageOrdered By: Javid Winter on 01-21-2025 Eosinophils/100 WBC (Bld) 0.3 % 0-5 [facility] Erythrocyte distribution wid th ratioOrdered By: Javid Winter on 01-21-2025 Erythrocyte distribution width (RBC) [Ratio] 11.7 % 11.6-14.6 [facility] Erythrocyte distribution wid th standard deviationOrdered By: Javid Winter on 01-21-2025 Erythrocyte distribution width (RBC) [Ratio] 33.7 fl Low 35.1-43.9 [facility] Glomerular filtration rate ( GFR) estimation/1.73 sq m using serum, plasma, or whole bOrdered By: Javid Winter on 01-21-2025 GFR/1.73 sq M.predicted among non-blacks MDRD (S/P/Bld) [Vol rate/Area] 64 mL/min/{1.73_m2} >60 [facility] Comment on above: mL/min/1.73m2 CKD-EP I Creatinine Equation (2020) Hematocrit Auto (Bld) [Volum e fraction]Ordered By: Javid Winter on 01-21-2025 Hematocrit (Bld) [Volume fraction] 40.6 % 40-54 [facility] Hemoglobin measurementOrdere d By: Javid Winter on 01-21-2025 Hemoglobin (Bld) [Mass/Vol] 13.7 g/dL 13.0-16.5 [facility] Immature granulocytes/100 WB C Auto (Bld)Ordered By: Javid Winter on 01-21-2025 Immature granulocytes/100 WBC (Bld) 0.300 % 0.0-0.9 [facility] Comment on above: IG% - Immature Granu locytes (promyelocytes, myelocytes and metamyelocytes) > 1% indicates that a LEFT SHIFT is Present. MCV (mean corpuscular volume ) determinationOrdered By: Javid Winter on 01-21-2025 MCV (RBC) [Entitic vol] 79.3 fL Low 80-94 [facility] Magnesiumon 01-21-2025 Magnesium [Mass/Vol] 2.0 mg/dL Normal 1.5-2.2 [facility] Comment on above: Performed By: #### L 100.0100, L500.2500, L501.5200 ####[facility] [address] [place], [address] Magnesium measurement (mass/ volume)Ordered By: Javid Winter on 01-21-2025 Magnesium (Unsp spec) [Mass/Vol] 2.0 mg/dL 1.5-2.2 [facility] Mean corpuscular hemoglobin (MCH) determinationOrdered By: Javid Winter on 01-21-2025 MCH (RBC) [Entitic mass] 26.8 pg Low 27.0-32.0 [facility] Mean corpuscular hemoglobin concentration (MCHC) determinationOrdered By: Javid Winter on 01-21-2025 MCHC (RBC) [Mass/Vol] 33.7 g/dL 32-36 [facility] Mean platelet volume determi nationOrdered By: Javid Winter on 01-21-2025 Platelet mean volume (Bld) [Entitic vol] 11.1 fL 6.2-12.0 [facility] Monocyte percentageOrdered B y: Javid Winter on 01-21-2025 Monocytes/100 WBC (Bld) 7.4 % 0-10 [facility] Neutrophil percentageOrdered By: Javid Winter on 01-21-2025 Neutrophils/100 WBC (Bld) 62.8 % 47-70 [facility] Nucleated red blood cell per centageOrdered By: Javid Winter on 01-21-2025 Nucleated RBC/100 WBC (Bld) [Ratio] 0 % 0-5 [facility] Platelet countOrdered By: Bob Winter on 01-21-2025 Platelets (Bld) [#/Vol] 270 10*3/uL 150-450 [facility] Potassium measurement (mass/ volume)Ordered By: Javid Winter on 01-21-2025 Potassium (Unsp spec) [Mass/Vol] 4.5 mmol/L 3.3-5.1 [facility] RBC Auto (Bld) [#/Vol]Ordere d By: Javid Winter on 01-21-2025 RBC (Bld) [#/Vol] 5.12 10*6/uL 4.6-6.2 [facility] Serum creatinine measurement (mass/volume)Ordered By: Javid Winter on 01-21-2025 Creatinine [Mass/Vol] 1.42 mg/dL High 0.70-1.20 [facility] Serum glucose measurement (m ass/volume)Ordered By: Javid Winter on 01-21-2025 Glucose [Mass/Vol] 440 mg/dL High 70-99 [facility] Serum or plasma calcium yanelis urement (mass/volume)Ordered By: Javid Winter on 01-21-2025 Calcium [Mass/Vol] 9.8 mg/dL 7.6-11.0 [facility] Serum or plasma urea nitroge n measurement (mass/volume)Ordered By: Javid Winter on 01-21-2025 Urea nitrogen [Mass/Vol] 13 mg/dL 4-19 [facility] Sodium levelOrdered By: Javid Winter on 01-21-2025 Sodium [Moles/Vol] 134 mmol/L 133-145 [facility] White blood cell (WBC) count Ordered By: Javid Winter on 01-21-2025 WBC (Bld) [#/Vol] 6.1 10*3/uL 4.4-11.0 [facility] CNPNon 01-06-2025 CNPN Telephone (NE50MN) VICTOR HUGO ASIF ([id number]) 1985 M Date Time Provider Department 01/06/25 LEANNA OWENS NE50MN During your visit today, we recorded the following information about you: Leila Lee 01/06/2025 7:34 AM Signed Form received: From (agency / facility): [employer] retail salesperson (if given): Victor Hugo Asif Phone #: [phone] (home) [phone] (work) Fax # : [phone] Information requested: Request for physician statement Patient [...] range of (more content not included)... Normal [facility] CNOVon 12-20-2024 CNOV Office Visit (NE50MN ) VICTOR HUGO ASIF ([id number]) 1985 M Date Time Provider Department 12/20/24 9:30 AM LEANNA OWENS NE50MN During your visit today, we recorded the following information about you: Pulse Blood pressure Weight Height 91/minute 149/88 87.5 kg 1.676 m Leanna Owens MD 12/20/2024 12:47 PM Signed [facility] EPILEPSY CLINIC NOTE - RETURN [...] UI or TB. He was taken to [facility] where he received 10mg IM versed. Denies triggers (missed doses, sleep deprivation illness). Level of VPA was 89 at [facility]. Seizure Types: 1) little ones [left or bilateral hand/chest/body somatosensory aura] -sometimes with warning (tingling in chest that spreads to the rest of his body), has to stop what he's doing, sit down; may have tingling in left hand prior to chest. With 02/08/2023 seizure he had tingling in both hands prior to chest tingling; seizure th (more content not included)... Normal [facility] CNPNon 07-01-2024 CNPN Telephone (FAMPWS) VICTOR HUGO ASIF ([id number]) 1985 M Date Time Provider Department [facility] your visit today, we recorded the following information about you: Nicole Bass APRN.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 07/01/2024 3:36 PM Signed Please call patient [...] 1 month to monitor blood sugars from [facility]. Also, vitamin D level is extremely low. He needs to be taking 50,000 units of vitamin D3 weekly. Rx sent to pharmacy. Thank you, Nicole Bass APRN.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 The following approved medication requests have been [...] Jaimie Egan MA 07/11/2024 10:05 AM Signed [employer] message sent to pt, asking them to [...] Date Reviewed: 06/19/2024 Reviewed by: 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 - Fully Assessed Reason for Visit: Results [95] Primary Visit Diagnosis:Type 2 diabetes mellitus with diabetic neuropathy, with long-term current use of insulin ([facility]) [E11.40, Z79.4] Other Visit Diagnosis:Vitamin D deficiency [E55.9] Order(s):dulaglutide (TRULICITY) 1.5 mg/0.5 mL pen injectorInject 1.5 mg subcutaneously one time a week.Disp: 6 mLRfl: 0 cholecalciferol, Vitamin D3, (VITAMIN D3) 1,250 mcg (50,000 unit) cap capsuleTake 1 capsule by mouth one time a week.Disp: 4 capsuleRfl: 2 VITAMIN D 25 HYDROXY [SQVITD] Order #: [id number] FUTURE Prescriptions as of 07/11/2024 - dulaglutide [...] lumbar inter (more content not included)... Normal [facility] 25(OH)D3 SerPl-mCncon 2024 25-hydroxyvitamin D3 [Mass/Vol] 9.1 ng/mL Low 31.0-80.0 [facility] Comment on above: Order Comment: Speci men Type: BLOOD SPECIMENOrdering Facility: [facility] Address: [address] [place] [address] Result Comment: Clas sification of 25 [place] Vitamin D status: Deficiency/Insufficiency: < or = 30 ng/ml. Sufficiency/Optimal Levels: 31-80 ng/mL Toxicity: > 100 ng/mL. Test performed by chemiluminescent immunoassay. Performed By: #### 1 989-3 ####[facility] [id number] [place] [address] [place] ALBUMIN/CREATININE RATIO, UR INEon 06-29-2024 Albumin DL <= 20 mg/L (U) [Mass/Vol] 295.3 mg/L Normal [facility] Comment on above: Order Comment: Speci men Type: URINE SPECIMENOrdering Facility: [facility] Address: [address] [place] [address] Performed By: #### U ACR ####[facility] [id number] [address] [place] Albumin/Creatinine (U) [Mass ratio] 255 mg/g High <30 [facility] Comment on above: Order Comment: Speci men Type: URINE SPECIMENOrdering Facility: [facility] Address: [address] [place] [address] Result Comment: Adul t Male and Female Nephrotic Criteria: <30 mg/g is considered normal to mildly increased 30-300 mg/g is considered moderately increased >300 mg/g is considered severely increased KDIGO. (2013). KDIGO 2012 Clinical Practice Guideline for the Evaluation and Management of Chronic Kidney Disease. Official Journal of the International Society of Nephrology, 3(1), 1-150. Performed By: #### U ACR ####[facility] [id number] [place] [address] [place] Creatinine (U) [Mass/Vol] 116.0 mg/dL Normal 20.0-300.0 [facility] Comment on above: Order Comment: Speci men Type: URINE SPECIMENOrdering Facility: [facility] Address: [address] [place] [address] Performed By: #### U ACR ####[facility] [id number] [place] [address] [place] CBC panel Auto (Bld)on 06-29 Erythrocyte distribution width (RBC) [Ratio] 12.2 % Normal 11.5-15.0 [facility] Comment on above: Order Comment: Speci men Type: BLOOD SPECIMEN [facility]ing Facility[facility] Address: [address] [place] [address] Performed By: #### 5 8410-2 #### [facility] CLIA [id number] [address] [place] [address] [place] Hematocrit (Bld) [Volume fraction] 42.8 % Normal 39.0-51.0 [facility] Comment on above: Order Comment: Speci men Type: BLOOD SPECIMEN [facility]: [facility] Address: [address] [place] [address] Performed By: #### 5 8410-2 #### [facility] CLIA [id number] [address] [place] [address] [place] Hemoglobin (Bld) [Mass/Vol] 13.7 g/dL Normal 13.0-17.0 [facility] Comment on above: Order Comment: Speci men Type: BLOOD SPECIMEN [facility]ing Facility: [facility] Address: [address] [place] [address] Performed By: #### 5 8410-2 #### [facility] CLIA [id number] [address] [place] [address] [place] MCH (RBC) [Entitic mass] 26.1 pg Normal 26.0-34.0 [facility] Comment on above: Order Comment: Speci men Type: BLOOD SPECIMEN [facility]: [facility] Address: [address] [place] [address] Performed By: #### 5 8410-2 #### [facility] CLIA [id number] [address] [place] [address] [place] MCHC (RBC) [Mass/Vol] 32.0 g/dL Normal 30.5-36.0 [facility] Comment on above: Order Comment: Speci men Type: BLOOD SPECIMEN [facility] Address: [address] [place] [address] Performed By: #### 5 8410-2 #### [facility] CLIA [id number] [address] [place] [address] [place] MCV (RBC) [Entitic vol] 81.7 fL Normal 80.0-100.0 [facility] Comment on above: Order Comment: Speci men Type: BLOOD SPECIMEN [facility] Address: [address] [place] [address] Performed By: #### 5 8410-2 #### [facility] CLIA [id number] [address] [place] [address] [place] Nucleated RBC (Bld) [#/Vol] 10*3/uL Normal <0.01 [facility] Comment on above: Order Comment: Speci men Type: BLOOD SPECIMEN [facility] Address: [address] [place] [address] Performed By: #### 5 8410-2 #### [facility] CLIA [id number] [address] [place] [address] [place] Platelet mean volume (Bld) [Entitic vol] 11.1 fL Normal 9.0-12.7 [facility] Comment on above: Order Comment: Speci men Type: BLOOD SPECIMEN [facility] Address: [address] [place] [address] Performed By: #### 5 8410-2 #### [facility] CLIA [id number] [address] [place] [address] [place] Platelets (Bld) [#/Vol] 269 10*3/uL Normal 150-400 [facility] Comment on above: Order Comment: Speci men Type: BLOOD SPECIMEN [facility] Address: [address] [place] [address] Performed By: #### 5 8410-2 #### [facility] CLIA [id number] [address] [place] [address] [place] RBC (Bld) [#/Vol] 5.24 10*6/uL Normal 4.20-6.00 [facility] Comment on above: Order Comment: Speci men Type: BLOOD SPECIMEN [facility] Address: [address] [place] [address] Performed By: #### 5 8410-2 #### [facility] CLIA [id number] [address] [place] [address] [place] WBC (Bld) [#/Vol] 5.01 10*3/uL Normal 3.70-11.00 [facility] Comment on above: Order Comment: Speci men Type: BLOOD SPECIMEN [facility] Address: [address] [place] [address] Performed By: #### 5 8410-2 #### [facility] CLIA [id number] [address] [place] [address] [place] Comprehensive metabolic 2000 panelon 06-29-2024 Albumin [Mass/Vol] 4.3 g/dL Normal 3.9-4.9 [facility] Comment on above: Order Comment: Speci men Type: BLOOD SPECIMENOrdering Facility: [facility] Address: [address] [place] [address] Performed By: #### 2 4323-8, 3016-3, 60399-7 ####[facility] [id number] [address] [address] [place] ALP [Catalytic activity/Vol] 74 U/L Normal 38-113 [facility] Comment on above: Order Comment: Speci men Type: BLOOD SPECIMENOrdering Facility: [facility] Address: [address] [place] [address] Performed By: #### 2 4323-8, 6-3, 64454-2 ####[facility] [id number] [place] [id number] [place] ALT [Catalytic activity/Vol] 21 U/L Normal 10-54 [facility] Comment on above: Order Comment: Speci men Type: BLOOD SPECIMENOrdering Facility: [facility] Address: [address] [place] [address] Performed By: #### 2 4323-8, 3015-3, 99703-2 ####[facility] [id number] [place] [address] [place] Anion gap [Moles/Vol] 9 mmol/L Normal 8-15 [facility] Comment on above: Order Comment: Speci men Type: BLOOD SPECIMENOrdering Facility: [facility] Address: [address] [place] [address] Performed By: #### 2 4323-8, 6-3, 25521-2 ####[facility] [id number] [place] [id number] [place] AST [Catalytic activity/Vol] 31 U/L Normal 14-40 [facility] Comment on above: Order Comment: Speci men Type: BLOOD SPECIMENOrdering Facility: [facility] Address: [address] [place] [address] Performed By: #### 2 4323-8, 6-3, 93742-7 ####[facility] LABCLIA [id number] [place] [id number] [place] Bilirubin [Mass/Vol] 0.6 mg/dL Normal 0.2-1.3 [facility] Comment on above: Order Comment: Speci men Type: BLOOD SPECIMENOrdering Facility: [facility] Address: [address] [place] [address] Performed By: #### 2 4323-8, 3016-3, 02156-7 ####[facility] LABCLIA [id number] [place] [address] [place] Calcium [Mass/Vol] 9.5 mg/dL Normal 8.5-10.2 [facility] Comment on above: Order Comment: Speci men Type: BLOOD SPECIMENOrdering Facility: [facility] Address: [address] [place] [address] Performed By: #### 2 4323-8, 6-3, 22159-0 ####[facility] LABCLIA [id number] [place] [address] [place] Chloride [Moles/Vol] 99 mmol/L Normal 98-107 [facility] Comment on above: Order Comment: Speci men Type: BLOOD SPECIMENOrdering Facility: [facility] Address: [address] [place] [address] Performed By: #### 2 4323-8, 6-3, 61559-0 ####[facility]CLIA [id number] [place] [address] [place] CO2 [Moles/Vol] 27 mmol/L Normal 22-30 [facility] Comment on above: Order Comment: Speci men Type: BLOOD SPECIMENOrdering Facility: [facility] Address: [address] [place] [address] Performed By: #### 2 4323-8, 6-3, 37853-1 ####[facility] LABCLIA [id number] [place] [address] [place] Creatinine [Mass/Vol] 0.84 mg/dL Normal 0.73-1.22 [facility] Comment on above: Order Comment: Izzy gonzalez Type: BLOOD SPECIMENOrdering Facility: [facility] Address: [address] [place] [address] Performed By: #### 2 4323-8, 3016-3, 12857-1 ####[facility]CLIA [id number] [place] [address] [place] Creatinine and Glomerular filtration rate.predicted panel (S/P/Bld) 113 mL/min/1.73m??? Normal >=60 [facility] Comment on above: Order Comment: Izzy gonzalez Type: BLOOD SPECIMENOrdering Facility: [facility] Address: [address] [place] [address] Result Comment: Noemy mated Glomerular Filtration Rate [...] GFR. Performed By: #### 2 4323-8, 3016-3, 84702-4 ####[facility]CLIA [id number] [place] [address] [place] Glucose [Mass/Vol] 278 mg/dL High 74-99 [facility] Comment on above: Order Comment: Izzy gonzalez Type: BLOOD SPECIMENOrdering Facility: [facility] Address: [address] [place] [address] Result Comment: The [place] Diabetes Association (ADA) provides guidance for cutoff [...] Standards of Medical Care in Diabetes 2016, [place] Diabetes Association. Diabetes Care. 2016.39(Suppl 1). Performed By: #### 2 4323-8, 6-3, 75254-7 ####[facility] LABCLIA [id number] [address] [address] [place] Potassium [Moles/Vol] 3.9 mmol/L Normal 3.7-5.1 [facility] Comment on above: Order Comment: Speci men Type: BLOOD SPECIMENOrdering Facility: [facility] Address: [address] [place] [address] Performed By: #### 2 4323-8, 3, 08840-4 ####[facility] LABCLIA [id number] [place] [id number] [place] Protein [Mass/Vol] 7.6 g/dL Normal 6.3-8.0 [facility] Comment on above: Order Comment: Speci men Type: BLOOD SPECIMENOrdering Facility: [facility] Address: [address] [place] [address] Performed By: #### 2 4323-8, 3, ####[facility] LABCLIA [id number] [place] [id number] [place] Sodium [Moles/Vol] 135 mmol/L Low 136-144 [facility] Comment on above: Order Comment: Speci men Type: BLOOD SPECIMENOrdering Facility: [facility] Address: [address] [place] [address] Performed By: #### 2 4323-8, 3, ####[facility] LABCLIA [id number] [address] [address] [place] Urea nitrogen [Mass/Vol] 7 mg/dL Low 9-24 [facility] Comment on above: Order Comment: Speci men Type: BLOOD SPECIMENOrdering Facility: [facility] Address: [address] [place] [address] Performed By: #### 2 4323-8, 3016-3, 27570-4 ####[facility] LABCLIA [id number] [address] [address] [place] Lipid 1996 panelon 5 Cholesterol [Mass/Vol] 178 mg/dL Normal <200 [facility] Comment on above: Order Comment: Speci men Type: BLOOD SPECIMENOrdering Facility: [facility] Address: [address] [place] [address] Result Comment: <200 mg/dL, Desirable 200-239 mg/dL, Borderline high >239 mg/dL, High Performed By: #### 2 4323-8, 3015-3, 84063-7 ####[facility] LABCLIA [id number] [place] [address] [place] Cholesterol in HDL [Mass/Vol] 61 mg/dL Normal >39 [facility] Comment on above: Order Comment: Speci men Type: BLOOD SPECIMENOrdering Facility: [facility] Address: [address] [place] [address] Result Comment: 40-5 9 mg/dL, Acceptable >59 mg/dL, High: Negative risk factor for coronary heart disease <40 mg/dL, Low: Positive risk factor for coronary heart disease Performed By: #### 2 4323-8, 6-3, 49216-2 ####[facility] LABCLIA [id number] [place] [id number] [place] Cholesterol in LDL [Mass/Vol] 102 mg/dL High <100 [facility] Comment on above: Order Comment: Speci men Type: BLOOD SPECIMENOrdering Facility: [facility] Address: [address] [place] [address] Result Comment: <100 mg/dL, Optimal 100-129 mg/dL, Near optimal/above optimal 130-159 mg/dL, Borderline high 160-189 mg/dL, High >189 mg/dL, Very high Secondary prevention optimal LDL Cholesterol levels are recommended to be < 70 mg/dL Performed By: #### 2 4323-8, 6-3, 75526-0 ####[facility] LABCLIA [id number] [place] [address] [place] Cholesterol in LDL/Cholesterol in HDL [Mass ratio] 1.67 {ratio} Normal <2.54 [facility] Comment on above: Order Comment: Speci men Type: BLOOD SPECIMENOrdering Facility: [facility] Address: [address] [place] [address] Result Comment: Refe rence: 1. National Cholesterol Education Program ATP III Guideline At-A-Glance Quick Desk Reference: National Heart, Lung, and Blood [place]. National Institutes of Health. 2001: NIH Publication No. 01-3305. 2. An International Atherosclerosis Society position paper: global recommendations for the management of dyslipidemia: executive summary, Atherosclerosis. 2014: 232(2):410-413. Performed By: #### 2 4323-8, 6-3, 52759-5 ####[facility] LABCLIA [id number] [place] [address] [place] Cholesterol in VLDL [Mass/Vol] 15 mg/dL Normal <30 [facility] Comment on above: Order Comment: Davidi men Type: BLOOD SPECIMENOrdering Facility: [facility] Address: [address] [place] [address] Performed By: #### 2 4323-8, 6-3, 00907-8 ####[facility] LABCLIA [id number] [place] [id number] [place] Cholesterol non HDL [Mass/Vol] 117 mg/dL Normal <130 [facility] Comment on above: Order Comment: Speci men Type: BLOOD SPECIMENOrdering Facility: [facility] Address: [address] [place] [address] Result Comment: <130 mg/dL, Optimal 130-159 mg/dL, Near optimal/above optimal 160-189 mg/dL, Borderline high 190-219 mg/dL, High >219 mg/dL, Very high Secondary prevention optimal non HDL Cholesterol levels are recommended to be <100 mg/dL Performed By: #### 2 4323-8, 3016-3, 46436-5 ####[facility] LABCLIA [id number] [place] [address] [place] Cholesterol.total/Cho lesterol in HDL [Mass ratio] 2.92 {ratio} Normal <5.10 [facility] Comment on above: Order Comment: Speci men Type: BLOOD SPECIMENOrdering Facility: [facility] Address: [address] [place] [address] Performed By: #### 2 4323-8, 6-3, 99038-5 ####[facility] LABCLIA [id number] [address] [place] FASTING TIME 12 hrs Normal [facility] Comment on above: Order Comment: Speci men Type: BLOOD SPECIMENOrdering Facility: [facility] Address: [address] [place] [address] Performed By: #### 2 4323-8, 6-3, 66120-4 ####[facility] LABIA [id number] [place] [address] [place] Triglyceride [Mass/Vol] 73 mg/dL Normal <150 [facility] Comment on above: Order Comment: Speci men Type: BLOOD SPECIMENOrdering Facility: [facility] Address: [address] [place] [address] Result Comment: <150 mg/dL, Normal 150-199 mg/dL, Borderline high 200-499 mg/dL, High >499 mg/dL, Very high Performed By: #### 2 4323-8, 6-3, 57130-3 ####[facility] LABCLIA [id number] [place] [address] [place] TSH SerPl-aCncon 06-29-2024 TSH Qn 1.510 m[IU]/L Normal 0.270-4.20 0 [facility] Comment on above: Order Comment: Speci men Type: BLOOD SPECIMENOrdering Facility: [facility] Address: [address] [place] [address] Performed By: #### 2 4323-8, 3016-3, 25874-7 ####[facility] LABCLIA [id number] [id number] [id number] [facility] CNOVon 06-19-2024 CNOV Office Visit (FAMPWS ) VICTOR HUGO ASIF ([id number]) 1985 M [facility] Date Time Provider Department 06/19/24 8:20 AM [facility] During your visit today, we recorded the following information about you: Pulse Respiration Blood pressure Weight 78/minute 16/minute 138/86 92.4 kg Height 1.645 m 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 06/19/2024 10:10 AM Signed Chief Complaint Patient [...] his medications because he just doesn't care. 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 cholecal (more content not included)... Normal [facility] 06-19-2024 [facility] VICTOR HUGO ASIF ([id number]) 1985 Young [facility] Date Time Provider Department 06/19/24 RANJIT AZAR [facility] During your visit today, we recorded the following information about you: Young Carson, RN 06/19/2024 2:02 PM Signed [facility] pharmacy reports: 1) Rec'vd Rx for Freestyle [...] Payer: Kwesi Note from payer: CARLOS Case: [id number], Status: Approved, Coverage Starts on: 06/20/2024 12:00:00 AM, Coverage Ends on: 07/18/2024 12:00:00 AM. Approval Details Authorization number: [id number] Authorized from June 20, 2024 to July [...] to its destination. To be filled at: [facility] - [address] [place] [address] - [address] [phone] Pharmacy notified. Allergies As of Date: 06/19/2024 Noted Allergy Reaction BACLOFEN 11/25/2015 14 - Other: See Comments Comments: Migraines and lightheadedness PENICILLIN 10/30/2023 4 - Hives VICODIN (HYDROCODONE-ACETAMINOPHE* 4 - Hives Date Reviewed: 06/19/2024 Reviewed by: 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 - Fully Assessed Reason for Visit: Medication [...] Phimosis [N47.1] (more content not included)... Normal [facility] HEMOGLOBIN A1C (POC)on 06-19 HbA1c (Bld) [Mass fraction] 12.4 % Abnormal 4.3 - 5.6 % [facility] Comment on above: Location:[facility], [address] [place] [address], [place], [address] Point of care (POC) Hemoglobin A1c (HGBA1C) [...] specific diabetes management situations: The POC device floral manager provides a normal range of 4.2% to 6.5% for the HGBA1C POC test. However, the [place] Diabetes Association guidelines indicate that patients with [...] Interpretation and review of laboratory results Abnormal [facility] Basophil percentageOrdered B y: Chavez Cameron on 05-31-2023 Chloride [Moles/Vol] 102 mmol/L 98-107 [facility] Glucose [Mass/Vol] 213 mg/dL 74-106 [facility] Comment on above: Glucose result great er than or equal to 200 mg/dLsuggests DIABETES MELLITUS per A.D.A. criteria. Potassium [Moles/Vol] 3.7 mmol/L 3.5-5.1 [facility] Sodium [Moles/Vol] 135 mmol/L 136-145 [facility] HCO3 (BldA) [Moles/Vol]Order ed By: Chavez Cameron on 05-31-2023 HCO3 (Bld) [Moles/Vol] 25 mmol/L 22-26 [facility] Laboratory - Chemistry and C hemistry - challengeOrdered By: Chavez Cameron on 05-31-2023 CO2 [Moles/Vol] 26 mmol/L 23-33 [facility] CK [Catalytic activity/Vol] 516 U/L 39-308 [facility] CO2 [Moles/Vol] 29.0 mmol/L 21.0-32.0 [facility] Magnesium [Mass/Vol] 2.5 mg/dL 1.6-2.6 [facility] Urea nitrogen/Creatinine [Mass ratio] 10.4 mg/mg 10-20 [facility] No Panel InformationOrdered By: Chavez Cameron on 05-31-2023 Bed Mix Venous Bld PCO2 at Pat Temp 32.3 mmHg 41-51 [facility] Blood Gas Sample Site Not entered [facility] Blood Gas Specimen Type CHAGO [facility] Oxygen Delivery Device Not entered [facility] Venous Blood Base Excess 2 mmol/L -1.0-3.5 [facility] Estimated GFR (MDRD) Amer 70 mL/min >60 [facility] Comment on above: GFR Calc Estimated GFR (MDRD) Non-Af Amer 58 mL/min >60 [facility] Comment on above: Non- GFR Calc PO2 venousOrdered By: Lucille Cameron on 05-31-2023 Oxygen (BldV) [Partial pressure] 34 mm[Hg] 25-40 [facility] Serum or plasma calcium yanelis urement (mass/volume)Ordered By: Chavez Cameron on 05-31-2023 Calcium [Mass/Vol] 10.6 mg/dL 8.5-10.1 [facility] Serum or plasma creatinine m easurement (mass/volume)Ordered By: Chavez Cameron on 05-31-2023 Creatinine [Mass/Vol] 1.44 mg/dL 0.70-1.30 [facility] Comment on above: The validity of the calculated GFR & GFRAA in patients over 70 years has not been determined. Clinical correlation is essential. Serum or plasma urea nitroge n measurement (mass/volume)Ordered By: Chavez Cameron on 05-31-2023 Urea nitrogen [Mass/Vol] 15 mg/dL 7-18 [facility] Thin prep Papanicolaou smear with manual screeningOrdered By: Chavez Cameron on 05-31-2023 Thin prep Papanicolaou smear with manual screening 4 5-15 [facility] Vital signsOrdered By: Lauri Cameron on 05-31-2023 Oxygen saturation in Blood 72 % 50-70 [facility] pH measurementOrdered By: Christopher Cameron on 05-31-2023 pH (Unsp spec) 7.50 [pH] 7.32-7.42 [facility] Absolute lymphocyte countOrd ered By: Hoa Haskins on 02-09-2023 Lymphocytes Auto (Unsp spec) [#/Vol] 2.23 10*3/uL 0.83-4.51 [facility] Basophil percentageOrdered B y: Hoa Haskins on 02-09-2023 Basophils/100 WBC (Bld) 0.9 % 0-1 [facility] Chloride [Moles/Vol] 106 mmol/L 98-107 [facility] Eosinophils/100 WBC (Bld) 2.3 % 0-5 [facility] Glucose [Mass/Vol] 174 mg/dL 74-106 [facility] Comment on above: Fasting Glucose resu lt greater than or equal to 126 mg/dL suggests DIABETES MELLITUS per A.D.A. criteria. Neutrophils (Bld) [#/Vol] 2.8 10*3/uL 2.0-7.7 [facility] Neutrophils/100 WBC (Bld) 49.6 % 47-70 [facility] Potassium [Moles/Vol] 3.4 mmol/L 3.5-5.1 [facility] Sodium [Moles/Vol] 137 mmol/L 136-145 [facility] WBC (Bld) [#/Vol] 5.7 10*3/uL 4.4-11.0 [facility] Blood erythrocytes count (nu mber/volume)Ordered By: Hoa Haskins on 02-09-2023 RBC (Bld) [#/Vol] 4.84 10*6/uL 4.6-6.2 [facility] Blood hemoglobin measurement (mass/volume)Ordered By: Hoa Haskins on 02-09-2023 Hemoglobin (Bld) [Mass/Vol] 12.8 g/dL 13.0-16.5 [facility] Blood lymphocytes/100 leukoc ytesOrdered By: Hoa Haskins on 02-09-2023 Lymphocytes/100 WBC (Bld) 39.0 % 19-41 [facility] Blood monocytes/100 leukocyt esOrdered By: Hoa Haskins on 02-09-2023 Monocytes/100 WBC (Bld) 7.9 % 0-10 [facility] Blood platelet mean volumeOr dered By: Hoa Haskins on 02-09-2023 Platelet mean volume (Bld) [Entitic vol] 11.2 fL 6.2-12.0 [facility] Determination of erythrocyte mean corpuscular volume (MCV)Ordered By: Hoa Haskins on 02-09-2023 MCV (RBC) [Entitic vol] 83.3 fL 80-94 [facility] Hematocrit Auto (Bld) [Volum e fraction]Ordered By: Hoa Haskins on 02-09-2023 Hematocrit (Bld) [Volume fraction] 40.3 % 40-54 [facility] Laboratory - Chemistry and C hemistry - challengeOrdered By: Hoa Haskins on 02-09-2023 CO2 [Moles/Vol] 27.0 mmol/L 21.0-32.0 [facility] Urea nitrogen/Creatinine [Mass ratio] 14.3 mg/mg 10-20 [facility] Laboratory - Hematology and Cell countsOrdered By: Hoa Haskins on 02-09-2023 Erythrocyte distribution width (RBC) [Entitic vol] 37.2 fL 35.1-43.9 [facility] Erythrocyte distribution width (RBC) [Ratio] 12.2 % 11.6-14.6 [facility] Immature granulocytes/100 WBC (Bld) 0.300 % 0.0-0.9 [facility] Comment on above: IG% - Immature Granu locytes (promyelocytes, myelocytes and metamyelocytes) > 1% indicates that a LEFT SHIFT is Present. MCH (RBC) [Entitic mass] 26.4 pg 27.0-32.0 [facility] Nucleated RBC/100 WBC (Bld) [Ratio] 0 % 0-5 [facility] MCHC Auto (RBC) [Mass/Vol]Or dered By: Hoa Haskins on 02-09-2023 MCHC (RBC) [Mass/Vol] 31.8 g/dL 32-36 [facility] No Panel InformationOrdered By: Hoa Haskins on 02-09-2023 Estimated Creatinine Clearance Calc 102.70 ml/min [facility] Estimated GFR (MDRD) Amer 131 mL/min >60 [facility] Comment on above: GFR Calc Estimated GFR (MDRD) Non-Af Amer 108 mL/min >60 [facility] Comment on above: Non- GFR Calc Platelets bldOrdered By: Batsheva Haskins on 02-09-2023 Platelets (Bld) [#/Vol] 230 10*3/uL 150-450 [facility] Serum or plasma calcium yanelis urement (mass/volume)Ordered By: Hoa Haskins on 02-09-2023 Calcium [Mass/Vol] 8.8 mg/dL 8.5-10.1 [facility] Serum or plasma creatinine m easurement (mass/volume)Ordered By: Hoa Haskins on 02-09-2023 Creatinine [Mass/Vol] 0.84 mg/dL 0.70-1.30 [facility] Comment on above: The validity of the calculated GFR & GFRAA in patients over 70 years has not been determined. Clinical correlation is essential. Serum or plasma urea nitroge n measurement (mass/volume)Ordered By: Hoa Haskins on 02-09-2023 Urea nitrogen [Mass/Vol] 12 mg/dL 7-18 [facility] Thin prep Papanicolaou smear with manual screeningOrdered By: Hoa Edgardociara on 02-09-2023 Thin prep Papanicolaou smear with manual screening 4 5-15 [facility] Absolute lymphocyte countOrd ered By: Jah Santiago on 02-08-2023 Lymphocytes Auto (Unsp spec) [#/Vol] 2.60 10*3/uL 0.83-4.51 [facility] Basophil percentageOrdered B y: Hoa Haskins on 02-08-2023 Basophil percentage < 10.0 umol/L 11-32 [facility] Bilirubin [Mass/Vol] 0.60 mg/dL 0.20-1.00 [facility] Comment on above: For patients on eltr ombopag therapy, use of Dimension [place] TBIL is not recommended. Protein [Mass/Vol] 8.5 g/dL 6.4-8.2 [facility] Basophil percentageOrdered B y: Jah Santiago on 02-08-2023 Basophils/100 WBC (Bld) 0.7 % 0-1 [facility] Chloride [Moles/Vol] 104 mmol/L 98-107 [facility] Eosinophils/100 WBC (Bld) 0.7 % 0-5 [facility] Glucose [Mass/Vol] 197 mg/dL 74-106 [facility] Comment on above: Fasting Glucose resu lt greater than or equal to 126 mg/dL suggests DIABETES MELLITUS per A.D.A. criteria. Neutrophils (Bld) [#/Vol] 3.7 10*3/uL 2.0-7.7 [facility] Neutrophils/100 WBC (Bld) 54.5 % 47-70 [facility] Potassium [Moles/Vol] 3.7 mmol/L 3.5-5.1 [facility] Sodium [Moles/Vol] 136 mmol/L 136-145 [facility] WBC (Bld) [#/Vol] 6.8 10*3/uL 4.4-11.0 [facility] Blood erythrocytes count (nu mber/volume)Ordered By: Jah Santiago on 02-08-2023 RBC (Bld) [#/Vol] 5.40 10*6/uL 4.6-6.2 [facility] Blood hemoglobin measurement (mass/volume)Ordered By: Jah Santiago on 02-08-2023 Hemoglobin (Bld) [Mass/Vol] 14.2 g/dL 13.0-16.5 [facility] Blood lymphocytes/100 leukoc ytesOrdered By: Jah Santiago on 02-08-2023 Lymphocytes/100 WBC (Bld) 38.5 % 19-41 [facility] Blood monocytes/100 leukocyt esOrdered By: Jah Santiago on 02-08-2023 Monocytes/100 WBC (Bld) 5.2 % 0-10 [facility] Blood platelet mean volumeOr dered By: Jah Santiago on 02-08-2023 Platelet mean volume (Bld) [Entitic vol] 11.6 fL 6.2-12.0 [facility] Determination of erythrocyte mean corpuscular volume (MCV)Ordered By: Jah Santiago on 02-08-2023 MCV (RBC) [Entitic vol] 81.1 fL 80-94 [facility] Direct bilirubinOrdered By: Hoa Haskins on 02-08-2023 Bilirubin.direct [Mass/Vol] 0.17 mg/dL 0.00-0.30 [facility] Glucose Glucometer (dC) [M ass/Vol]Ordered By: Hoa Haskins on 02-08-2023 Glucose [Mass/Vol] 243 mg/dL 74-106 [facility] Comment on above: MANAGEMENT OF PATIEN T CARE PER NURSING PROTOCOL Hematocrit Auto (Bld) [Volum e fraction]Ordered By: Jah Santiago on 02-08-2023 Hematocrit (Bld) [Volume fraction] 43.8 % 40-54 [facility] Laboratory - Chemistry and C hemistry - challengeOrdered By: Hoa Haskins on 02-08-2023 ALP [Catalytic activity/Vol] 73 U/L 45-117 [facility] ALT [Catalytic activity/Vol] 27 U/L 16-61 [facility] Globulin (S) [Mass/Vol] 4.8 g/dL 2.2-4.2 [facility] Laboratory - Chemistry and C hemistry - challengeOrdered By: Jah Santiago on 02-08-2023 CO2 [Moles/Vol] 23.0 mmol/L 21.0-32.0 [facility] Urea nitrogen/Creatinine [Mass ratio] 10.1 mg/mg 10-20 [facility] Laboratory - Drug toxicology Ordered By: Hoa Haskins on 02-08-2023 Amphetamines Ql (U) Negative <1000 ng/mL [facility] Benzodiazepines Ql (U) Positive < 200 ng/mL [facility] Cannabinoids Screen Ql (U) Negative < 50 ng/mL [facility] Cocaine Ql (U) Negative < 300 ng/mL [facility] Opiates Ql (U) Negative < 300 ng/mL [facility] Laboratory - Hematology and Cell countsOrdered By: Jha Santiago on 02-08-2023 Erythrocyte distribution width (RBC) [Entitic vol] 36.8 fL 35.1-43.9 [facility] Erythrocyte distribution width (RBC) [Ratio] 12.4 % 11.6-14.6 [facility] Immature granulocytes/100 WBC (Bld) 0.400 % 0.0-0.9 [facility] Comment on above: IG% - Immature Granu locytes (promyelocytes, myelocytes and metamyelocytes) > 1% indicates that a LEFT SHIFT is Present. MCH (RBC) [Entitic mass] 26.3 pg 27.0-32.0 [facility] Nucleated RBC/100 WBC (Bld) [Ratio] 0 % 0-5 [facility] MCHC Auto (RBC) [Mass/Vol]Or dered By: Jah Santiago on 02-08-2023 MCHC (RBC) [Mass/Vol] 32.4 g/dL 32-36 [facility] No Panel InformationOrdered By: Hoa Haskins on 02-08-2023 MDMA (Ecstasy) Screen Negative < 500 ng/mL [facility] Urine Barbiturates Screen Negative < 200 ng/mL [facility] Urine Drug Screen Comment [facility] Comment on above: CONFIRMATORY TESTING FOR ALL [...] Urine Methadone Screen Negative < 300 ng/mL [facility] No Panel InformationOrdered By: Jah Santiago on 02-08-2023 Estimated Creatinine Clearance Calc 57.90 ml/min [facility] Estimated GFR (MDRD) Amer 67 mL/min >60 [facility] Comment on above: GFR Calc Estimated GFR (MDRD) Non-Af Amer 56 mL/min >60 [facility] Comment on above: Non- GFR Calc Valproic Acid (Depakene) Level 89 ug/mL 50-100 [facility] Platelets bldOrdered By: Jah Santiago on 02-08-2023 Platelets (Bld) [#/Vol] 283 10*3/uL 150-450 [facility] Serum or plasma albumin yanelis urement (mass/volume)Ordered By: Hoa Haskins on 02-08-2023 Albumin [Mass/Vol] 3.7 g/dL 3.2-5.0 [facility] Serum or plasma calcium yanelis urement (mass/volume)Ordered By: Jah Santiago on 02-08-2023 Calcium [Mass/Vol] 9.9 mg/dL 8.5-10.1 [facility] Serum or plasma creatinine m easurement (mass/volume)Ordered By: Jah Santiago on 02-08-2023 Creatinine [Mass/Vol] 1.49 mg/dL 0.70-1.30 [facility] Comment on above: The validity of the calculated GFR & GFRAA in patients over 70 years has not been determined. Clinical correlation is essential. Serum or plasma urea nitroge n measurement (mass/volume)Ordered By: Jah Santiago on 02-08-2023 Urea nitrogen [Mass/Vol] 15 mg/dL 7-18 [facility] Thin prep Papanicolaou smear with manual screeningOrdered By: Jah Santiago on 02-08-2023 Thin prep Papanicolaou smear with manual screening 9 5-15 [facility] Thin prep Papanicolaou smear with manual screeningOrdered By: Hoa Haskins on 02-08-2023 Thin prep Papanicolaou smear with manual screening 32 U/L 15-37 [facility] Urine phencyclidine (PCP) de tectionOrdered By: Hoapayton Haskins on 02-08-2023 Phencyclidine Ql (U) Negative < 25 ng/mL [facility] HEMOGLOBIN A1C (POC)on 01-30 HbA1c (Bld) [Mass fraction] 10.9 % Abnormal 4.2 - 5.6 % [facility] MRI BRAIN WO IVCONon 023 [facility] XR ANKLE GENERAL 3V AP/LAT/O BL BILATERALon 08-01-2022 [facility] NITRIC OXIDE, EXHALEDon 01-04 [facility] Basophil percentageon 2021 Basophil percentage 0-5 SEEN /hpf 0-5 [facility] Work Phone: Bilirubin Test strip Ql (U)o n 12-18-2021 Bilirubin Ql (U) Negative Negative [facility] Work Phone: Ketones Test strip Ql (U)on 12-18-2021 Ketones Ql (U) 5 mg/dl Negative [facility] Work Phone: Mucus LM Ql (Urine sed)on Mucus Ql (Urine sed) 0 SEEN /hpf [facility] Work Phone: Nitrite Test strip Ql (U)on 12-18-2021 Nitrite Ql (U) Negative Negative [facility] Work Phone: Protein Test strip Ql (U)on 12-18-2021 Protein Ql (U) 100 mg/dl Negative [facility] Work Phone: Squamous epithelial cells de tection in urine sediment by light microscopyon 12-18-2021 Epithelial cells.squamous LM Ql (Urine sed) 0 SEEN /hpf 0-5 [facility] Work Phone: Urine blood detectionon 12-03 RBC Ql (U) Negative Negative [facility] Work Phone: RBC Ql (U) 0 SEEN /hpf 0-5 [facility] Work Phone: Urine clarityon 12-18-2021 Clarity (U) Sl. Cloudy Clear [facility] Work Phone: Urine color determinationon 12-18-2021 Color (U) Yellow Yellow [facility] Work Phone: Urine glucose detectionon Glucose Ql (U) 250 mg/dl Normal [facility] Work Phone: Urine leukocyte esterase det ection by dipstickon 12-18-2021 Leukocyte esterase Test strip Ql (U) 25 /ul Negative [facility] Work Phone: Urine pHon 12-18-2021 pH (U) 5.0 [pH] 5.0 - 8.0 [facility] Work Phone: Urine sediment bacteria coun t by microscopy (number/high power field)on 12-18-2021 Bacteria LM.HPF (Urine sed) [#/Area] 0 /[HPF] None Seen [facility] Work Phone: Urine specific gravity measu rementon 12-18-2021 Specific gravity (U) [Rel density] 1.020 1.002-1.03 0 [facility] Work Phone: Urobilinogen Auto test strip Ql (U)on 12-18-2021 Urobilinogen Ql (U) 4 mg/dl Normal [facility] Work Phone: ESR Westergren method (Bld) [Velocity]on 10-22-2021 ESR (Bld) [Velocity] 27 mm/h High 0 - 15 mm/hr [facility] ANES POSTPROC EVALon 022 ANES POSTPROC EVAL HNO ID: [id number] Author: Shanelle Olivares MD Service: ? Author Type: Anesthesiologist Type: Anesthesia Postprocedure Evaluation Filed: 09/20/2021 9:11 AM Note Text: POST ANESTHESIA EVALUATION NOTE : 1985 Procedure Summary Date: 09/20/21 Room / Location: [place] OR03 / [place] Anesthesia Start: 728 [...] September 20, 2021 TIME: 9:10 AM CSN: [id number] [facility] ANES PRE-OPon 09-20-2021 ANES PRE-OP HNO ID: [id number] Author: Shanelle Olivares MD Service: ? Author Type: Anesthesiologist Type: Anesthesia Preprocedure Evaluation Filed: 09/20/2021 6:49 AM Note Text: ANESTHESIOLOGY DAY OF SURGERY NOTE : 1985 Procedure Information Date/Time: 09/20/21729 Procedure: INJECT ANKLE (Bilateral Ankle) [place]03 [place] Surgeons: Ray Yanez Estimated body mass [...] and consent discussed: yes. Patient / Responsible Libertarian agrees to proceed: yes Patient / Surrogate [...] 1 application t (more content not included)... [facility] BRIEF OP NOTon 09-20-2021 BRIEF OP NOT HNO ID: [id number] Author: Ray Yanez Service: Podiatry Author Type: Physician Type: Brief Op Note Filed: 09/20/2021 8:03 AM Note Text: BRIEF OPERATIVE / PROCEDURE NOTE LOG ID: [id number] SURGERY/PROCEDURE DATE: 09/20/2021 INCISION/PROCEDURE START TIME: 7:48 AM INCISION CLOSE/PROCEDURE END TIME: SURGEON(S)/PROCEDURALIST(S) AND GRIZZLY WORKER(S): Surgeon(s) and Role: * Ray Yanez - [...] DATE: September 20, 2021 TIME: 8:02 AM [facility] HISTORY PHYSICALon HISTORY PHYSICAL HNO ID: [id number] Author: Ray Yanez Service: Podiatry Author Type: [...] He understands that this may not provide intermediate designer relief. He understands that any relief he gets may only be temporary. He understands all of this. He consents to b/l ankle joint under xray. Ray Yanez DPM SIGNATURE: Ray Yanez DPM PATIENT NAME: Victor Hugo Asif DATE: September 20, 2021 TIME: 7:02 AM [facility] NURSING PROGon 09-20-2021 NURSING PROG HNO ID: [id number] Author: Naeem Saamyoa RN Service: Nursing Author Type: Registered Nurse Type: Nursing Progress Note Filed: 09/20/2021 9:13 AM Note Text: Nursing Progress Note Patient Name: Victor Hugo Asif [place] Daily Note: Lite snack given, family at bedside This note was completed by: Naeem Samayoa [facility] OPERATIVE NOon 09-20-2021 OPERATIVE NO HNO ID: [id number] Author: Ray Yanez Service: Podiatry Author Type: Physician Type: Operative Report Filed: 09/21/2021 11:54 AM Note Text: OPERATIVE/PROCEDURE REPORT LOG ID: [id number] SURGERY/PROCEDURE DATE: 09/20/2021 INCISION/PROCEDURE START TIME: 7:48 AM INCISION CLOSE/PROCEDURE END TIME: 8:07 AM SURGEON(S)/PROCEDURALIST(S) AND GRIZZLY WORKER(S): Surgeon(s) and Role: * Ray Yanez - [...] DATE: September 20, 2021 TIME: 9:30 PM [facility] XR FLUOROSCOPYon 09-20-2021 XR FLUOROSCOPY * [...] Please refer to the performing LIP's report. Wheel Loader Operator: PSCAbigail Transcribe Date/Time: Sep 20 2021 8:17A Dictated by : BRISEIDA MABRY MD This examination was interpreted and the report reviewed and electronically signed by: BRISEIDA MABRY MD on Sep 20 2021 8:18AM EST [id number] [facility] ([facility]) VICTOR HUGO ASIF ([id number]) 1985 M Date Time Provider Department 05/03/21 HAIM CALDERON [facility] During your visit today, we recorded the [...] to call back. See full details in [employer] message from today. Haim Calderon PharmD [employer] Allergies As of Date: 05/03/2021 Noted Allergy [...] a week. - flash glucose scanning reader (OrthAlign LICO 14 DAY READER) [facility] Use to check blood sugar 4 times [...] nadolol (CORG (more content not included)... Normal [facility] XR Chest PA and Lateralon IMPRESSION: No acute radiographic abnormality. Wheel Loader Operator: YOVANNY Transcribe Date/Time: Apr 14 2021 10:44A Dictated by : MARYSE CANCINO MD This examination was interpreted and the report reviewed and electronically signed by: MARYSE CANCINO MD on Apr 14 2021 10:45AM [facility] DIVISION OF RADIOLOGY * * *Final [...] soft tissues: Unremarkable. [facility]Y [facility] * * *Final Report* [...] Unremarkable. IMPRESSION IMPRESSION: No acute radiographic abnormality. Wheel Loader Operator: PSCB Transcribe Date/Time: Apr 14 2021 10:44A Dictated by : MARYSE CANCINO MD This examination was interpreted and the report reviewed and electronically signed by: MARYSE CANCINO MD on Apr 14 2021 10:45AM EST [facility] Radiology Study observation (narrative) [facility] XR Chest PA and LateralOrder ed By: [facility] Provider on 04-14-2021 [facility] CULTURE ANAEROBEon 0 CULTURE ANAEROBE CULTURE ANAEROBE --> Status: F No growth of anaerobes at 5 days. Normal [facility] Comment on above: Order Comment: Speci men collected in O.R. Performed By: #### C S/BA C/GARCÍA #### [facility] [employer] [facility] [address] [place] [id number] CR Mandible Partial < 4 View son 01-01-2020 CR Mandible Partial < 4 Views Patient Name: VICTOR HUGO ASIF Diagnostic Radiology Exam Date/Time 12/31/2019 19:27:44 EDT Exam CR Mandible Partial < 4 Views Ordering Physician WOLFGANG CHENG Accession Number [id number] CPT4 Codes 93543 () Reason For Exam Prior mandible fracture; [...] Transcribed Date and Time: 01/01/2020 10:52 Normal [facility] Glucose,Bedsideon 01-01-2020 Glucose [Mass/Vol] 367 mg/dL High 70-100 [facility] Comment on above: Result Comment: Test performed by glucose meter. Results may be 10%-15% lower than serum/plasma values. (CLIA ID [id number]) Performed By: #### H EMD, BMP3M #### [address] [address] POCT Glucoseon 01-01-2020 Glucose [Mass/Vol] 367 mg/dL High 70 - 100 mg/dL [place], [place] Comment on above: Test performed by gl ucose meter. Results may be 10%-15% lower than serum/plasma values. (CLIA ID [id number]) Interpretation and review of laboratory results Abnormal [place], [place] Test Performed by [facility], [address] [place] [id number] [place] [address] XR MANDIBLE (<4 VIEWS)on [facility], [facility] Incoming Radiology Results From [facility] - 01/01/2020 10:59 AM EDT Patient Name: VICTOR HUGO ASIF ---Diagnostic Radiology--- Exam Date/Time 12/31/2019 19:27:44 EDT Exam CR Mandible Partial < 4 Views Ordering Physician WOLFGANG CHENG Accession Number [id number] CPT4 Codes 11618 () Reason For Exam Prior mandible fracture; [...] NELSON Transcribed Date and Time: 01/01/2020 10:52 [place], [place] Patient Name: VICTOR HUGO ASIF ---Diagnostic Radiology--- Exam Date/Time 12/31/2019 19:27:44 EDT Exam CR Mandible Partial < 4 Views Ordering Physician WOLFGANG CHENG Accession Number [id number] CPT4 Codes 72894 () Reason For Exam Prior mandible fracture; [...] NELSON Transcribed Date and Time: 01/01/2020 10:52 [place], [place] Basic Metabolic Panelon - Anion gap [Moles/Vol] 14 Normal [facility] Comment on above: Performed By: #### H MARILY, BMP3 #### [facility] [address] [place] [address] Calcium [Mass/Vol] 9.1 mg/dL Normal 8.4-10.4 [facility] Comment on above: Performed By: #### H MARILY, BMP3 #### [facility] [address] [place] [address] CO2 [Moles/Vol] 21 mmol/L Low 22-30 [facility] Comment on above: Performed By: #### H MARILY, BMP3 #### [facility] [address] [place] [address] Glucose [Mass/Vol] 309 mg/dL High 70-100 [facility] Comment on above: Performed By: #### H MARILY, BMP3 #### [facility] [address] [place] [address] Urea nitrogen [Mass/Vol] 11 mg/dL Normal 7-20 [facility] Comment on above: Performed By: #### H MARILY, BMP3 #### [facility] [address] [place] [address] Creatinine [Mass/Vol] 0.63 mg/dL Normal 0.52-1.25 [facility] Comment on above: Performed By: #### H MARILY, BMP3 #### [facility] [address] [place] [address] GFR/1.73 sq M predicted among blacks MDRD (S/P/Bld) [Vol rate/Area] mL/min/{1.73_m2} Normal >60 [facility] Comment on above: Performed By: #### H EMOKenna, BMP3 #### [facility] [address] [place] [address] GFR/1.73 sq M predicted among non-blacks MDRD (S/P/Bld) [Vol rate/Area] mL/min/{1.73_m2} Normal >60 [facility] Comment on above: Result Comment: KDIG O [...] Performed By: #### H GUILLERMINA CALIXTO3 #### [address] Potassium [Moles/Vol] 4.6 mmol/L Normal 3.5-5.1 [facility] Comment on above: Performed By: #### H GUILLERMINA CALIXTO3 #### [address] Sodium [Moles/Vol] 131 mmol/L Low 135-145 [facility] Comment on above: Performed By: #### H [facility]ORMANG[facility]MINA Pierson3 #### [address] Chloride [Moles/Vol] 97 mmol/L Low 98-107 [facility] Comment on above: Performed By: #### GUILLERMINA ATKINSON3 #### [address] [address] [place], [place] Anion gap [Moles/Vol] 14 mmol/L [place], [place] Calcium [Mass/Vol] 9.1 mg/dL 8.4 - 10. 4 mg/dL [place], [place] Chloride [Moles/Vol] 97 mmol/L Low 98 - 10 7 mmol/L [place] CO2 [Moles/Vol] 21 mmol/L Low 22 - 30 mmol/L [place] Creatinine [Mass/Vol] 0.63 mg/dL 0.52 - 1.25 mg/dL [place] EGFR IF NonAfrican Taiwanese >90.0 >60 mL/min [place] Comment on above: KDIGO guidelines pro [...] MDRD (S/P/Bld) [Vol rate/Area] mL/min/{1.73_m2} >60 mL/min [place] Glucose [Mass/Vol] 309 mg/dL High 70 - 100 mg/dL [place] Interpretation and review of laboratory results Abnormal [place] Potassium [Moles/Vol] 4.6 mmol/L 3.5 - 5.1 mmol/L [place] Sodium [Moles/Vol] 131 mmol/L Low 135 - 145 mmol/L [place] Urea nitrogen [Mass/Vol] 11 mg/dL 7 - 20 mg/dL [place] Test Performed by [address] [address] [place], [place] CBCon 12-31-2019 Erythrocyte distribution width (RBC) [Ratio] 14.1 % 11.5 - 14.5 % [place] Hematocrit (Bld) [Volume fraction] 39.8 % Low 40 - 52 % [place] Hemoglobin (Bld) [Mass/Vol] 12.8 g/dL Low 13 - 18 g/dL [place] Interpretation and review of laboratory results Abnormal [place] MCH (RBC) [Entitic mass] 26.5 pg 26 - 34 pg [place] MCHC (RBC) [Mass/Vol] 32.1 % 32 - 36 % [place], [place] MCV (RBC) [Entitic vol] 82.6 fL 80 - 98 fL [place] Platelet mean volume (Bld) [Entitic vol] 9.0 fL 7.4 - 10.4 fL [place] Platelets (Bld) [#/Vol] 210 10*3/uL 140 - 440 10*3/uL [place] RBC (Bld) [#/Vol] 4.83 10*6/uL 4.4 - 5.9 10*6/uL [place] WBC (Bld) [#/Vol] 12.4 10*3/uL High 3.6 - 10.7 10*3/uL [place] Test Performed by [facility], [address] [place] [id number] [place] [address] Hemogramon 12-31-2019 Erythrocyte distribution width (RBC) [Ratio] 14.1 % Normal 11.5-14.5 [facility] Comment on above: Performed By: #### H EMOKenna BMP3 #### [address] [address] [place], [place] Hematocrit (Bld) [Volume fraction] 39.8 % Low 40.0-52.0 [facility] Comment on above: Performed By: #### H EMOG, BMP3 #### [facility] [address] [place], [place] Hemoglobin (Bld) [Mass/Vol] 12.8 g/dL Low 13.0-18.0 [facility] Comment on above: Performed By: #### H EMOG, BMP3 #### [address] [place] [address] [place], [place] MCH (RBC) [Entitic mass] 26.5 pg Normal 26.0-34.0 [facility] Comment on above: Performed By: #### H EMOG, BMP3 #### [address] [place] [address] [place], [place] MCHC (RBC) [Mass/Vol] 32.1 % Normal 32.0-36.0 [facility] Comment on above: Performed By: #### H MARILY BMP3 #### [address] [address] [address] [place], [place] MCV (RBC) [Entitic vol] 82.6 fL Normal 80.0-98.0 [facility] Comment on above: Performed By: #### H MARILY BMP3 #### [address] [address] [address] [place], [place] Platelet mean volume (Bld) [Entitic vol] 9.0 fL Normal 7.4-10.4 [facility] Comment on above: Performed By: #### H MARILY BMP3 #### [address] [address] [place], [place] Platelets (Bld) [#/Vol] 210 10*3/uL Normal 140-440 [facility] Comment on above: Performed By: #### H MARILY BMP3 #### [address] [address] [address] [place], [place] RBC (Bld) [#/Vol] 4.83 10*6/uL Normal 4.40-5.90 [facility] Comment on above: Performed By: #### H MARILY BMP3 #### [address] WBC (Bld) [#/Vol] 12.4 10*3/uL High 3.6-10.7 [facility] Comment on above: Performed By: #### H MARILY BMP3 #### [address] [address] [address] [place], [place] Basic Metabolic Panelon 07-2 -2019 Calcium [Mass/Vol] 8.9 mg/dL Normal 8.4-10.4 [facility] Comment on above: Performed By: #### H ROHIT BMP3M #### [address] Glucose [Mass/Vol] 160 mg/dL High 70-100 [facility] Comment on above: Performed By: #### H ROHIT BMP3M #### [address] [address] [address] [place], [place] Urea nitrogen [Mass/Vol] 8 mg/dL Normal 7-20 [facility] Comment on above: Performed By: #### H GHCT, BMP3M #### [facility] [address] [place], [place] Anion gap [Moles/Vol] 7 Normal [facility] Comment on above: Performed By: #### H GHCT, BMP3M #### [facility] [address] [place], [place] CO2 [Moles/Vol] 24 mmol/L Normal 22-30 [facility] Comment on above: Performed By: #### H GHCT, BMP3M #### [address] [address] [address] [place], [place] Creatinine [Mass/Vol] 0.59 mg/dL Normal 0.52-1.25 [facility] Comment on above: Performed By: #### H GHCT, BMP3M #### [address] [address] [address] [place], [place] GFR/1.73 sq M predicted among blacks MDRD (S/P/Bld) [Vol rate/Area] mL/min/{1.73_m2} Normal >60 [facility] Comment on above: Performed By: #### H GHCT, BMP3M #### [address] [address] [address] [place], [place] GFR/1.73 sq M predicted among non-blacks MDRD (S/P/Bld) [Vol rate/Area] mL/min/{1.73_m2} Normal >60 [facility] Comment on above: Result Comment: KDIG O [...] Performed By: #### H GHCT BMP3M #### [facility] [address] [place] [address] Chloride [Moles/Vol] 101 mmol/L Normal 98-107 [facility] Comment on above: Performed By: #### H GHCT, BMP3M #### [facility] [address] [place] [address] Potassium [Moles/Vol] 4.0 mmol/L Normal 3.5-5.1 [facility] Comment on above: Performed By: #### H GHCT, BMP3M #### [facility] [address] [place] [address] Sodium [Moles/Vol] 133 mmol/L Low 135-145 [facility] Comment on above: Performed By: #### H GHCT, BMP3M #### [facility] [address] [place] [address] Basic Metabolic Panel w/ Ref lala to MGon 12-30-2019 Anion gap [Moles/Vol] 7 mmol/L [facility], [place] Calcium [Mass/Vol] 8.9 mg/dL 8.4 - 10. 4 mg/dL [place] Chloride [Moles/Vol] 101 mmol/L 98 - 10 7 mmol/L [facility], [place] CO2 [Moles/Vol] 24 mmol/L 22 - 30 mmol/L [place] Creatinine [Mass/Vol] 0.59 mg/dL 0.52 - 1.25 mg/dL [place] EGFR IF NonAfrican Taiwanese >90.0 >60 mL/min [place] Comment on above: KDIGO guidelines pro [...] MDRD (S/P/Bld) [Vol rate/Area] mL/min/{1.73_m2} >60 mL/min [place] Glucose [Mass/Vol] 160 mg/dL High 70 - 100 mg/dL [place] Interpretation and review of laboratory results Abnormal [place] Potassium [Moles/Vol] 4.0 mmol/L 3.5 - 5.1 mmol/L [place] Sodium [Moles/Vol] 133 mmol/L Low 135 - 145 mmol/L [place] Urea nitrogen [Mass/Vol] 8 mg/dL 7 - 20 mg/dL [place] Test Performed by [facility], [address] [place] [id number] [place] [address] CULT./ST. BACTERIAon 020 CULT./ST. BACTERIA CULT./ST. BACTERIA - -> Status: F Mixed oral olga lidia present. STAIN GRAM --> Status: F No polymorphonuclear cells/lpf. Rare gram negative bacilli. Rare gram negative bacilli. Normal [facility] Comment on above: Order Comment: Speci men collected in O.R. Performed By: #### C S/BA C/GARCÍA #### [address] [address] Glucose,Bedsideon 12-30-2019 Glucose [Mass/Vol] 161 mg/dL High 70-100 [facility] Comment on above: Result Comment: Test performed by glucose meter. Results may be 10%-15% lower than serum/plasma values. (CLIA ID [id number]) Performed By: #### B GLU #### [address] [address] [place] [address] Glucose [Mass/Vol] 166 mg/dL High 70-100 [facility] Comment on above: Result Comment: Test performed by glucose meter. Results may be 10%-15% lower than serum/plasma values. (CLIA ID [id number]) Performed By: #### B GLU #### [address] [address] Hemoglobin AND Hematocriton 12-30-2019 Hematocrit (Bld) [Volume fraction] 37.6 % Low 40.0-52.0 [facility] Comment on above: Performed By: #### H GUILLERMINA BEE3M #### [address] Hemoglobin (Bld) [Mass/Vol] 12.3 g/dL Low 13.0-18.0 [facility] Comment on above: Performed By: #### H ROHIT BMP3M #### [address] [address] Hemoglobin and Hematocrit, B loodon 12-30-2019 Hematocrit (Bld) [Volume fraction] 37.6 % Low 40 - 52 % [place] Hemoglobin (Bld) [Mass/Vol] 12.3 g/dL Low 13 - 18 g/dL [place] Interpretation and review of laboratory results Abnormal [place] Test Performed by [address] [address] [place], [place] Op Noteon 12-30-2019 Op Note PATIENT: YARIEL ASIF ADMISSION DATE: 12/30/2019 SURGERY DATE: 12/30/2019 DATE OF : 1985 AGE: 34 ADMITTING PHYSICIAN: Gama Ludwig MD ATTENDING PHYSICIAN: Gama Ludwig MD DICTATING PHYSICIAN: Gmaa Ludwig MD OPERATIVE RECORD Procedure: 1. REMOVAL OF LEFT INFERIOR AND POSTERIOR MOLARS X2. 2. DEBRIDEMENT OF BONE.Excisional 3. EXPLORATION OF HARDWARE. 4. REMOVAL OF 2 SCREWS WITH OVERDRILLING AND REPLACEMENT OF 2 SCREWS. Preoperative Diagnoses: Infected left mandible, poor quality dentition with retained plate.Osteomyelitis of mandible Postoperative Diagnoses: Infected left mandible, poor quality dentition with retained plate.Osteomyelitis of mandible Anesthesia: General. Dynamometer Tester Engine: Adeline. Clinical History: This is a 34-year-old [...] room in stable condition. Diskriter Job ID: [id number] Gama Ludwig MD DOD:12/30/2019 03:16 P GAP/dsk DOT:12/30/2019 04:32 P Job Number: [id number] Document Number: [id number] cc: Gama Ludwig MD [facility] [address] [facility] [address] [facility] [address] Normal [facility] POCT Glucoseon 12-30-2019 Glucose [Mass/Vol] 161 mg/dL High 70 - 100 mg/dL [facility] [place] Comment on above: Test performed by ucose meter. Results may be 10%-15% lower than serum/plasma values. (CLIA ID [id number]) Interpretation and review of laboratory results Abnormal [facility] [place] Test Performed by [facility], [address] [place] [id number] [place] [address], [place] Glucose [Mass/Vol] 166 mg/dL High 70 - 100 mg/dL [facility] [place] Comment on above: Test performed by ucose meter. Results may be 10%-15% lower than serum/plasma values. (CLIA ID [id number]) Interpretation and review of laboratory results Abnormal [facility] [place] Test Performed by [facility], [facility] [place] [address] [place], [place] Echo 2D Doppler Coloron 07-07 TRANSTHORACIC ECHOCA RDIOGRAM PATIENT: Victor Hugo Asif STUDY DATE: 08/02/2019 : 1985 AGE: 33 HT/WT: 165.1 cm (65 105.2 kg in) (231.5 lb) GENDER: M BP: 200 / 120 LOCATION: [facility] PATIENT Outpatient [facility] STATUS: *ORDERING PHYSICIAN: * Preethi Brush MD *READING PHYSICIAN: * Malissa Saucedo *BATCH UNIT TREATER: * Allison BENTLEY INDICATIONS: PILAR. Chest Pain, [...] by Malissa Saucedo 08/02/2019 16:01 Prior Signatures: [facility]- [place], JENNIFER Barba, Karo Incoming Cardiology Results From Dinnr/Papirusfuad - 08/02/2019 4:01 PM EST TRANSTHORACIC ECHOCARDIOGRAM PATIENT: Victor Hugo Asif STUDY DATE: 08/02/2019 : 1985 AGE: 33 HT/WT: 165.1 cm (65 105.2 kg in) (231.5 lb) GENDER: M BP: 200 / 120 LOCATION: [facility] PATIENT Outpatient [facility] STATUS: *ORDERING PHYSICIAN: * Preethi Brush MD *READING PHYSICIAN: * Malissa Saucedo *BATCH UNIT TREATER: Yusra BENTLEY INDICATIONS: PILAR. Chest Pain, Unspecified [...] by Malissa Saucedo 08/02/2019 16:01 Prior Signatures: [facility], [place] Echo Complete w/wo Contrasto n 08-02-2019 Echo Complete w/wo Contrast Patient Name: VICTOR HUGO ASIF Ultrasound Exam Date/Time 08/02/2019 11:40:27 EST Exam Echo Complete w/wo Contrast Ordering Physician MD BRUSH LORETTA Accession Number [id number] Reason For Exam chest pain; PILAR Report TRANSTHORACIC ECHOCARDIOGRAM PATIENT: Victor Hugo Asif STUDY DATE: 08/02/2019 : 1985 AGE: 33 HT/WT: 165.1 cm (65 105.2 kg in) (231.5 lb) GENDER: M BP: 200 / 120 LOCATION: [facility] PATIENT Outpatient [facility] STATUS: *ORDERING PHYSICIAN: * Preethi Brush MD *READING PHYSICIAN: * Malissa Saucedo *BATCH UNIT TREATER: * Allison Sky RCS INDICATIONS: PILAR. Chest [...] 4:01 pm Signed by: MD SAUCEDO GABRIELA [facility] [place] Cardiac Stress Test Nucle ar [...] Exercise for 4 minutes completed by hand business broker. The infusion was terminated due to end [...] peak heart rate and blood pressure was 32520 mm Hg/min. Stress testing did not produce [...] + ---+ + +Injected by +Pramod HERCULES BIOMEDICAL EQUIPMENT TECHNICIAN +Pramod HERCULES BIOMEDICAL EQUIPMENT TECHNICIAN + + + ---+ + Image properties: [...] Electronically signed by Malissa Saucedo 08/02/2019 16:59 [facility], [place], [facility] Incoming Cardiology Results From Dinnr/Open Home Pro - 08/02/2019 5:00 PM EST Nuclear Stress [...] Exercise for 4 minutes completed by hand business broker. The infusion was terminated due to end [...] peak heart rate [place] blood [place] [address]160 mm Hg/min. Stress testing did not produce [...] + ---+ + +Injected by +J HERCULES BIOMEDICAL EQUIPMENT TECHNICIAN +J HERCULES BIOMEDICAL EQUIPMENT TECHNICIAN + + + ---+ + Image properties: [...] Electronically signed by Malissa Saucedo 08/02/2019 16:59 [place] NM Myocardial Perf Imaging amarilis Olmos 08-02-2019 NM Myocardial Perf Imaging Multi Spect Patient Name: VICTOR HUGO ASIF Nuc Med Exam Date/Time 08/02/2019 10:12:18 EST Exam NM Myocardial Perf Imaging Multi Spect Ordering Physician MD BRUSH LORETTA Accession Number [id number] CPT4 Codes 61056 (), 37084 (NM EKG TREADMILL - NUCLEAR) Reason For [...] Exercise for 4 minutes completed by hand business broker. The infusion was terminated due to end [...] peak heart rate and blood pressure was 46735 mm Hg/min. Stress testing did not produce [...] + +Injected by +Pramod MARIE +J DELISA BIOMEDICAL EQUIPMENT TECHNICIAN + + + ---+ + Image properties: [...] pm Signed by: MD SAUCEDO GABRIELA Normal [facility] Basic Metabolic Panelon 07-06 Calcium [Mass/Vol] 9.4 mg/dL Normal 8.4-10.4 [facility] Comment on above: Performed By: #### H GUILLERMINA ECHEVARRIA3Young #### [facility] [address], [place] Anion gap [Moles/Vol] 6 Normal [facility] Comment on above: Performed By: #### H SWATHI BMP3M #### [facility] [address], [place] CO2 [Moles/Vol] 29 mmol/L Normal 22-30 [facility] Comment on above: Performed By: #### H GUILLERMINA ECHEVARRIA3M #### [facility] [address] [place], [place] Glucose [Mass/Vol] 200 mg/dL High 70-100 [facility] Comment on above: Result Comment: Mode rately hemolysed, interpret with caution. Performed By: #### H EMDF, BMP3M #### [facility] [address] [place] [address] Urea nitrogen [Mass/Vol] 12 mg/dL Normal 7-20 [facility] Comment on above: Performed By: #### H SWATHI BMP3M #### [facility] [address] [place] [address] Creatinine [Mass/Vol] 0.71 mg/dL Normal 0.52-1.25 [facility] Comment on above: Performed By: #### H SWATHI BMP3M #### [place] [address] [place] [address] GFR/1.73 sq M predicted among blacks MDRD (S/P/Bld) [Vol rate/Area] mL/min/{1.73_m2} Normal >60 [facility] Comment on above: Performed By: #### H SWATHI BMP3M #### [address] [address] [place] [address] GFR/1.73 sq M predicted among non-blacks MDRD (S/P/Bld) [Vol rate/Area] mL/min/{1.73_m2} Normal >60 [facility] Comment on above: Result Comment: Sour ce- MDRD equation with creatinine calibration to IDMS(NKDEP) eGFR not recommended for drug dose adjustment Performed By: #### H SWATHI BMP3M #### [address] [address] [place] [address] Chloride [Moles/Vol] 102 mmol/L Normal 98-107 [facility] Comment on above: Performed By: #### H SWATHI BMP3M #### [address] [address] [place] [address] Potassium [Moles/Vol] 5.0 mmol/L Normal 3.5-5.1 [facility] Comment on above: Result Comment: Mode rately hemolysed, interpret with caution. Performed By: #### H SWATHI BMP3M #### [address] [address] [place] [address] Sodium [Moles/Vol] 136 mmol/L Normal 135-145 [facility] Comment on above: Performed By: #### H EMDF, BMP3M #### [facility] [employer] [address] [place] [address] Basic Metabolic Panel w/ Ref lala to MGon 07-18-2019 Anion gap [Moles/Vol] 6 mmol/L [facility] Work Phone: Calcium [Mass/Vol] 9.4 mg/dL 8.4 - 10. 4 mg/dL [facility] Work Phone: [phone] Chloride [Moles/Vol] 102 mmol/L 98 - 10 7 mmol/L [facility] Work Phone: CO2 [Moles/Vol] 29 mmol/L 22 - 30 mmol/L [facility] Work Phone: Creatinine [Mass/Vol] 0.71 mg/dL 0.52 - 1.25 mg/dL [facility] Work Phone: EGFR IF NonAfrican Taiwanese >60.0 >60 mL/min [facility] Work Phone: Comment on above: Source- MDRD equatio n with creatinine calibration to IDMS(NKDEP) eGFR not recommended for drug dose adjustment GFR/1.73 sq M predicted among blacks MDRD (S/P/Bld) [Vol rate/Area] mL/min/{1.73_m2} >60 mL/min [facility] Work Phone: Glucose [Mass/Vol] 200 mg/dL High 70 - 100 mg/dL [facility] Work Phone: Comment on above: Moderately hemolysed , interpret with caution. Interpretation and review of laboratory results Abnormal [facility] Work Phone: Potassium [Moles/Vol] 5.0 mmol/L 3.5 - 5.1 mmol/L [facility] Work Phone: Comment on above: Moderately hemolysed , interpret with caution. Sodium [Moles/Vol] 136 mmol/L 135 - 145 mmol/L [facility] Work Phone: Urea nitrogen [Mass/Vol] 12 mg/dL 7 - 20 mg/dL [facility] Work Phone: Test Performed by [facility], [address] [place] [address] [facility] Work Phone: [phone] CBC auto [...] 13 - 18 g/dL [facility] Work Phone: [phone] Interpretation and review of laboratory results Abnormal [...] [#/Vol] 4.75 10*6/uL 4.4 - 5.9 10*6/uL [facility] Work Phone: WBC (Bld) [#/Vol] 5.6 10*3/uL 3.6 - 10.7 10*3/uL [facility] Work Phone: Test Performed by [facility], [address] [place] [address] [facility] Work Phone: Hemogram w/ Autodiffon 07-18 Abs Baso Cnt 0.1 10*3/uL Normal 0.0-0.2 [facility] Comment on above: Performed By: #### H EMDF, BMP3M #### [facility] [employer] [facility] [address] [place] [address] Abs Neutrophile Cnt 2.8 10*3/uL Normal 1.8-7.0 [facility] Comment on above: Performed By: #### H EMDF, BMP3M #### [facility] [employer] [facility] [address] [place] [address] Basophils/100 WBC (Bld) 1.2 % Normal 0.0-2.0 [facility] Comment on above: Performed By: #### H EMDF, BMP3M #### [facility] [employer] [facility] [address] [place] [address] Eosinophils (Bld) [#/Vol] 0.2 10*3/uL Normal 0.0-0.5 [facility] Comment on above: Performed By: #### H SWATHI BMP3M #### [address] Eosinophils/100 WBC (Bld) 3.5 % Normal 1.0-6.0 [facility] Comment on above: Performed By: #### H SWATHI BMP3M #### [address] Erythrocyte distribution width (RBC) [Ratio] 14.4 % Normal 11.5-14.5 [facility] Comment on above: Performed By: #### H SWATHI BMP3M #### [address] Granulocytes/100 WBC (Bld) 50.8 % Normal 40.0-80.0 [facility] Comment on above: Performed By: #### H SWATHI BMP3M #### [address] Hematocrit (Bld) [Volume fraction] 39.6 % Low 40.0-52.0 [facility] Comment on above: Performed By: #### H SWATHI BMP3M #### [address] Hemoglobin (Bld) [Mass/Vol] 12.8 g/dL Low 13.0-18.0 [facility] Comment on above: Performed By: #### H SWATHI BMP3M #### [address] Lymphocytes (Bld) [#/Vol] 1.9 10*3/uL Normal 1.0-4.3 [facility] Comment on above: Performed By: #### H SWATHI BMP3M #### [address] Lymphocytes/100 WBC (Bld) 34.7 % Normal 20.0-40.0 [facility] Comment on above: Performed By: #### H SWATHI BMP3M #### [facility] [address], [place] MCH (RBC) [Entitic mass] 27.0 pg Normal 26.0-34.0 [facility] Comment on above: Performed By: #### H EMDAndria BMP3M #### [facility] [address], [place] MCHC (RBC) [Mass/Vol] 32.4 % Normal 32.0-36.0 [facility] Comment on above: Performed By: #### H EMDF BMP3M #### [facility] [address], [place] MCV (RBC) [Entitic vol] 83.4 fL Normal 80.0-98.0 [facility] Comment on above: Performed By: #### H EMDF BMP3M #### [place] [address] [place], [place] Monocytes (Bld) [#/Vol] 0.5 10*3/uL Normal 0.0-0.8 [facility] Comment on above: Performed By: #### H EMDF BMP3M #### [place] [address] [place], [place] Monocytes/100 WBC (Bld) 9.8 % Normal 2.0-10.0 [facility] Comment on above: Performed By: #### H EMDF, BMP3M #### [address] [address] [place], [place] Platelet mean volume (Bld) [Entitic vol] 9.7 fL Normal 7.4-10.4 [facility] Comment on above: Performed By: #### H EMDF, BMP3M #### [address] [address] [place], [place] Platelets (Bld) [#/Vol] 203 10*3/uL Normal 140-440 [facility] Comment on above: Performed By: #### H EMDF, BMP3M #### [facility] [address] [place], [place] RBC (Bld) [#/Vol] 4.75 10*6/uL Normal 4.40-5.90 [facility] Comment on above: Performed By: #### H GUILLERMINA ECHEVARRIA3M #### [facility] [employer] [facility] [address] [place] [address] WBC (Bld) [#/Vol] 5.6 10*3/uL Normal 3.6-10.7 [facility] Comment on above: Performed By: #### H GUILLERMINA ECHEVARRIA3M #### [facility] [employer] [facility] [address] [place] [address] Basic Panelon 02-27-2018 Creatinine mass conc 0.81 mg/dL Normal 0.67-1.17 [facility] Comment on above: Performed By: #### G LMET ####[address] [address] Anion gap 3 molar conc 13 mmol/L Normal 8-16 [facility] Comment on above: Performed By: #### G LMET ####[address] [address] CO2 molar conc 27 mmol/L Normal 21-32 [facility] Comment on above: Performed By: #### G LMET ####[address] [address] Glucose mass conc 194 mg/dL High 70-99 [facility] Comment on above: Performed By: #### G LMET ####[address] [address] Calcium mass conc 9.3 mg/dL Normal 8.5-10.1 [facility] Comment on above: Performed By: #### G LMET ####[address] [address] Urea nitrogen mass conc 11 mg/dL Normal 7-18 [facility] Comment on above: Performed By: #### G LMET ####[address] [address] Chloride molar conc 101 mmol/L Normal 98-107 [facility] Comment on above: Performed By: #### G LMET ####[address] [address] Potassium molar conc 4.5 mmol/L Normal 3.5-5.1 [facility] Comment on above: Performed By: #### G LMET ####[facility] [place] [id number] Sodium molar conc 136 mmol/L Normal 136-145 [facility] Comment on above: Performed By: #### G LMET ####[address] [address] CASE MANAGEMon 02-27-2018 CASE MANAGEM HNO ID: [id number] thor: Edilberto Elizabeth (Sw)e: Care ManagementAuthor Type: [...] Beliefs That May Affect or Influence Care?No, Patient/Mission Commander DeniesPatient Strengths/Protective Factors:Able to Communicate NeedsPSYCHIATRIC HISTORY:Family [...] no other needs at this time Normal [facility] CNDSon 02-27-2018 CNDS HNO ID: [id number] thor: Carolyn Nevesrvice: [facility] MedicineAuthor Type: PhysicianType: Discharge SummariesFiled: 02/27/2018 2:05 PMNote Text: DISCHARGE SUMMARYPATIENT NAME: Victor Hugo Asif Code Status: Not on fileMRN: [id number] Readmission Risk Score: 38 The 30 day [...] Medical Team Members: Treatment Team:Attending Provider: Carolyn Gabrieling: Gama Howe Service: [facility] RedConsulting: Gama Saul BollinConsulting: Shelbi Be [...] your pre-hospital dietFollow Up Appointments Follow-Up Appointment [facility] as instructed When: In 1 week Gama [phone] [address] [address] PCP Requested Referral Follow-Up Appointment When: In 1 week Jose Luis [phone] [address] [address] PCP Requested Referral Follow-Up Appointment When: In 2 weeks Shelbi [phone] [place] [address] PCP Requested Referral Follow-Up Appointment - Your PCP With: Your PCP When: In 1 week Patient/Parents to call for appointment?: YesAdditional Provider to Provider Information:Transitions of Care Critical Issues:LABS AND PROCEDURES PENDING AT DISCHARGE:FOLLOW-UP APPOINTMENTS ALREADY SCHEDULED WITH A [facility] PROVIDER:No future appointments.ALLERGIESAllerge n Reactions- [place]ut Anaphylaxis- Baclofen Other: See Comments Migraines and lightheadedness- Lactose Diarrhea- Penicillins GI Upset, Shortness of Breath- [place] Hives- Vicodin [Hydrocodon* HivesDISCHARGE MEDICATION: Current Discharge [...] pt daily [facility] (no notes in chart for unclear [...] in the discharge management of this patient.SIGNATURE: Craolyn Byrnes MD PAGER/CONTACT #:DATE: February 27, 2018TIME: 1:47 PM Normal [facility] CONSULT PROGon 02-27-2018 Protein mass conc HNO ID: [id number] thor: Shelbi Maye: EndocrinologyAuthor Type: PhysicianType: Consult Progress NoteFiled: 02/27/2018 2:02 PMNote Text:ENDOCRINOLOGY CONSULT PROGRESS NOTESERVICE DATE: 02/27/2018SERVICE TIME: 11:45amSubjectiveINTERVAL HPI: pt followed for diabetes mellitus, insulin requiring; doingwell on glargine 25 units daily, humalog for correction and metformin;better po intake; will need prandial insulin especially while on steroids;DIET FOOD CONSISTENCY CONTROLLEDRecent Labs [id number] -- -- 194* -- -- 146* -- [...] 2018 : 2:02 PM PAGER: [phone] Normal [facility] Glucose Meteron 02-27-2018 Glucose mass conc 202 mg/dL High 70-99 [facility] Comment on above: Result Comment: ALISA IRIZARRY Performed By: #### G LMET ####[place] [address] Hemogram/Diffon 02-27-2018 Abs Immature Grans 0.14 thou/cmm High 0.00-0.05 [facility] Comment on above: Performed By: #### G LMET ####[place] [address] Abs. Baso 0.02 thou/cmm Normal 0.01-0.08 [facility] Comment on above: Result Comment: Smea r scanned; tech agrees with automated differential Performed By: #### G LMET ####[place] [address] Abs. [place] 0.31 thou/cmm Normal 0.30-0.82 [facility] Comment on above: Performed By: #### G LMET ####[place] [address] Abs. Neut (ANC) 14.48 thou/cmm High 1.78-5.38 [facility] Comment on above: Performed By: #### G LMET ####[place] [address] Basophils/100 WBC Auto (Bld) 0.1 % Normal [facility] Comment on above: Performed By: #### G LMET ####[place] [address] Eosinophils Auto #/vol (Bld) 0.00 thou/cmm Low 0.04-0.54 [facility] Comment on above: Performed By: #### G LMET ####[place] [address] Eosinophils/100 WBC Auto (Bld) 0.0 % Normal [facility] Comment on above: Performed By: #### G LMET ####[facility] [place], [place] [address] Immature Grans 0.90 % Normal [facility] Comment on above: Performed By: #### G LMET ####[address] [address] Lymphocytes Auto #/vol (Bld) 0.75 thou/cmm Low 0.84-2.85 [facility] Comment on above: Performed By: #### G LMET ####[address] [address] Lymphocytes/100 WBC Auto (Bld) 4.8 % Normal [facility] Comment on above: Performed By: #### G LMET ####[address] [address] Monocytes/100 WBC Auto (Bld) 2.0 % Normal [facility] Comment on above: Performed By: #### G LMET ####[place] [address] Seg Neutrophil 92.2 % Normal [facility] Comment on above: Performed By: #### G LMET ####[place] [address] Erythrocyte distribution width Auto Ratio (RBC) 13.1 % Normal 11.6-14.4 [facility] Comment on above: Performed By: #### G LMET ####[place] [address] Hematocrit Auto Volume Fraction (Bld) 34.8 % Low 40.1-51.0 [facility] Comment on above: Performed By: #### G LMET ####[address] [address] Hemoglobin mass conc (Bld) 11.3 g/dL Low 13.7-17.5 [facility] Comment on above: Performed By: #### G LMET ####[address] [address] MCH Auto Entitic mass (RBC) 26.7 pg Normal 25.7-32.2 [facility] Comment on above: Performed By: #### G LMET ####[facility] [place] [address] MCHC Auto mass conc (RBC) 32.5 % Normal 32.3-36.5 [facility] Comment on above: Performed By: #### G LMET ####[place] [address] MCV Auto Entitic volume (RBC) 82.1 fL Low 83.2-95.6 [facility] Comment on above: Performed By: #### G LMET ####[place] [address] Platelet mean volume Auto Entitic volume (Bld) 10.8 fL Normal 8.7-12.0 [facility] Comment on above: Performed By: #### G LMET ####[place] [address] Platelets Auto #/vol (Bld) 269 thou/cmm Normal 141-365 [facility] Comment on above: Performed By: #### G LMET ####[place] [address] RBC Auto #/vol (Bld) 4.24 mil/cmm Low 4.63-6.08 [facility] Comment on above: Performed By: #### G LMET ####[place] [address] RDW SD 39.1 fl Normal 36.1-45.8 [facility] Comment on above: Performed By: #### G LMET ####[place] [address] WBC Auto #/vol (Bld) 15.70 thou/cmm High 4.23-9.07 [facility] Comment on above: Performed By: #### G LMET ####[place] [address] MDRD GFRon 02-27-2018 GFR/1.73 sq M predicted among non-blacks MDRD vol rate/area (S/P/Bld) mL/min/{1.73_m2} Normal >60mL/min/ 1.73m2 [facility] Comment on above: Result Comment: If t he patient is , multiply the result by 1.210. Performed By: #### G FR ####[facility] [place] [id number] NURSING PROGon 02-27-2018 Protein mass conc HNO ID: [id number] thor: Christelle (Rn) Ecuadorean, RNService: NursingAuthor Type: Registered NurseType: Nursing Progress NoteFiled: 02/27/2018 1:36 PMNote Text:RN spoke with Dr. Dinh Sorenson of plastic surgery. MD saw pt. today. MDstated they will not due surgery on pt. while he is here in the hospitald/t infection. Pt. is to go home with PO antibiotics and follow up withDr. Hi. Normal [facility] PLAN OF CAREon 02-27-2018 PLAN OF CARE HNO ID: [id number] thor: Ella Trotter ([employer] Representative)Service: (none)Author Type: (none)Type: Plan of CareFiled: 02/27/2018 1:41 PMNote Text: At testation signed by Carl Lemus (Commercial Real Estate Broker) at 02/27/2018 1:55 PMAgree with student note below. Working with Endocrinology team to revisepatient's insulin requirements.CARL LEMUS, GREEN PRIZE PACKER -MEDICATION HISTORYPatient Name:.Victor Hugo Aydee NayakN: [id number]: 1985Source of history:Pharmacy records: [facility]Medication Nonadherence Identified: FILLED FOR 30 DAY SUPPLY ON12/30/2017.The above information represents the best possible medication history: YesAdditional comments: VERIFIED INSULIN DOSES WITH [facility].MENTIONED THAT PATIENT IS ON HIGH DOSES OF [...] Diarrhea- Penicillins GI Upset, Shortness of Breath- [place] Hives- Vicodin [Hydrocodon* HivesPreferred Pharmacy: [facility] Medications:Prior to Admission medications as of [...] FOR HOME USE. DX: LABILE BLOODPRESSUREOppong Mushtaqetia ([employer] Representative)February 27, 2018 1:13 PM Normal [facility] PROGRESSon 02-27-2018 Protein mass conc HNO ID: [id number] thor: Jose Luis Fishe: Infectious DiseaseAuthor Type: [...] olga lidia, creatinine 0.8, WBC 15, vanco [id number]/Recommenda tionsActive Problems: Facial cellulitis POA: Yes Assessment [...] off.SIGNATURE: Jose Luis Becker MD, MS, FACP, [facility] PATIENT NAME: Victor Hugo RebolledoithDATE: February 27, 2018 : 9:14 AM PAGER/CONTACT #: [phone] Normal [facility] Vancomycin,Troughon 02-28-20 18 Vancomycin,Trough 11.0 mg/L Normal 10.0-20.0 [facility] Comment on above: Performed By: #### G LMET ####[place] [id number] Basic Panelon 02-26-2018 Creatinine mass conc 0.88 mg/dL Normal 0.67-1.17 [facility] Comment on above: Performed By: #### G LMET ####[facility] [place] [address] Glucose mass conc 146 mg/dL High 70-99 [facility] Comment on above: Performed By: #### G LMET ####[facility] [place], [place] [address] Urea nitrogen mass conc 11 mg/dL Normal 7-18 [facility] Comment on above: Performed By: #### G LMET ####[facility] [place], [place] [address] Anion gap 3 molar conc 10 mmol/L Normal 8-16 [facility] Comment on above: Performed By: #### G LMET ####[place] [address] Calcium mass conc 9.5 mg/dL Normal 8.5-10.1 [facility] Comment on above: Performed By: #### G LMET ####[place] [place] [address] CO2 molar conc 26 mmol/L Normal 21-32 [facility] Comment on above: Performed By: #### G LMET ####[place] [address] Chloride molar conc 103 mmol/L Normal 98-107 [facility] Comment on above: Performed By: #### G LMET ####[place] [address] Potassium molar conc 4.5 mmol/L Normal 3.5-5.1 [facility] Comment on above: Performed By: #### G LMET ####[place] [address] Sodium molar conc 134 mmol/L Low 136-145 [facility] Comment on above: Performed By: #### G LMET ####[place] [address] CASE MANAGEMon 02-26-2018 CASE MANAGEM HNO ID: [id number] thor: Rhona (Rn) NIHARIKA Masseyervice: Care ManagementAuthor [...] SW to completeER Contact: Taina Asif spouse [phone]. Fskcaq-pb-fqv Charla [phone] to SW to complete AD, assist with food dasilva, transportation homeGoal for this visit: Get better and be able to successfully eat all foodsBarriers to med adherence: Limited support system [facility] financial, difficulty maintaining food in house throughout themonthMet with pt at bedside. Plan to return home with at discharge.SIGNATURE: Rhona Massey RN PATIENT NAME: Victor Hugo AsifDATE: February 26, 2018 : 3:19 PM PAGER/CONTACT #: [phone] [facility] CASE MGT INIT [place] 2017 CASE MGT INIT [place] HNO ID: [id number] thor: Rhona (Rn) Shilpa, NIHARIKAervice: Care ManagementAuthor Type: Registered NurseType: Care Mgt Initial AssessmentFiled: 02/26/2018 3:19 PMNote Text:CARE MANAGEMENT: ASSESSMENT AND DISCHARGE PLANSERVICE DATE: 02/26/2018SERVICE TIME: 3:03 PMPRIMARY CARE PHYSICIAN:WARREN Arambulahone: [phone] STATUS: InpatientNeeds Prior to Discharge: Discharge Prescriptions;Pharmacy BedsideDeliveryMEDICAL:James t/Mission Commander Stated Goals:Get better and be able to successfully eat all foodsHealth Insurance: [facility] MEDICAIDCaresourceHealth Issues Impacting Discharge Plan: Chronic hearing impaired and ROC5Tqqv Admission Date: Previous admit date: 01/26/2018Is this Within the Past 30 days? YesIs This a Planned Readmission? No: Recurrent symptoms of underlyingdiseaseFollowed Up with Appointment Prior to Admission: Readmit to hospitalprior to follow up apptWhere Did the Patient Come From? [facility] Taken to Avoid Future Readmission? Outpt follow upAdvance Directive:Current Advance Directive: Other Document: See CommentIn Chart: [facility]are Bariat[facility] Coordinator Attempted to Assist with AD Completion: YesAction: [...] NoSOCIAL:Living Arrangement: HomeLives With: SpouseFinancial Resources: Employed: [employer]Primary Contact: Extended Emergency Contact InformationPrimary Emergency Contact: Wally Asif Bfxshuru: SpouseSupportive: YesOther Important Patient Contacts: NoneCaregiver Assessment:Caregiver [...] - 0I feel financially burdened by my vww-df-qrnwkf expenses for myprescription medication: Disagree completely - [...] Ref to completeER Contact: Taina Asif spouse [phone]. Onygwm-dq-vww Charla [phone] to to complete AD, assist with food dasilva, transportation homeGoal for this visit: Get better and be able to successfully eat all foodsBarriers to med adherence: Limited support system (foster mother lives [facility]), financial, difficulty maintaining food in house throughout themonthMet with pt at bedside. Plan to return home with at discharge.SIGNATURE: Rhona Massey RN PATIENT NAME: Victor Hugo AsifDATE: February 26, 2018 : 2:54 PM PAGER/CONTACT #: [phone] [facility] CONSULTon 02-26-2018 CONSULT HNO ID: [id number] thor: Shelbi Batesvice: EndocrinologyAuthor Type: PhysicianType: ConsultsFiled: 02/26/2018 1:24 PMNote Text:DIABETES INITIAL CONSULTPATIENT NAME: Victor Huog AsifMRN: [id number] DATE: 02/26/2018SERVICE TIME: 12:30pmREASON FOR CONSULT: DM Type 2REQUESTING PHYSICIAN:No referring provider defined for this encounter.PRIMARY CARE PHYSICIAN: Ranjit Aazr, DOSubjectiveHISTORY OF PRESENT ILLNESS: Mr. Asif is [...] clindamycin. Hehad a CT scan done at [facility], which showed soft tissue swellingbut no [...] (HCC) 11/2013 a1c 7.6% at diagnosis- 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- group home (current) use of systemic steroids- Lumbago- MRSA [...] mL/hr at 02/26/18 1058 1.5 g at 113038qwbtapb lispro pen (rapid acting) (HumaLOG KWIKPEN) SUBCUTANEOUS [...] (PAMELOR) 10 mg ORAL AT BEDTIME Ehab Nqkndzmykd42 mg at 02/25/18 2111prochlorperazine 10 mg tab(s) [...] (COLACE) 100 mg ORAL BID PRN Ehab Ghqokpaoml853 mg at 02/25/18isacodyl 10 mg suppository (DULCOLAX) [...] lb 3.2 oz) SpO2 100% BMI 35.81 kg/j9Rhgzdjd: Well appearing, alert, in no acute distress, [...] MDDATE: February 26, 2018TIME: 1:09 PM Normal [facility] Hemogramon 02-26-2018 Erythrocyte distribution width Auto Ratio (RBC) 13.0 % Normal 11.6-14.4 [facility] Comment on above: Performed By: #### C BC1 ####[place] [address] Hematocrit Auto Volume Fraction (Bld) 39.2 % Low 40.1-51.0 [facility] Comment on above: Performed By: #### C BC1 ####[place] [address] Hemoglobin mass conc (Bld) 12.5 g/dL Low 13.7-17.5 [facility] Comment on above: Performed By: #### C BC1 ####[place] [address] MCH Auto Entitic mass (RBC) 26.3 pg Normal 25.7-32.2 [facility] Comment on above: Performed By: #### C BC1 ####[place] [address] MCHC Auto mass conc (RBC) 31.9 % Low 32.3-36.5 [facility] Comment on above: Performed By: #### C BC1 ####[place] [address] MCV Auto Entitic volume (RBC) 82.5 fL Low 83.2-95.6 [facility] Comment on above: Performed By: #### C BC1 ####[place] [address] Platelet mean volume Auto Entitic volume (Bld) 11.0 fL Normal 8.7-12.0 [facility] Comment on above: Performed By: #### C BC1 ####[place] [address] Platelets Auto #/vol (Bld) 309 thou/cmm Normal 141-365 [facility] Comment on above: Performed By: #### C BC1 ####[place] [address] RBC Auto #/vol (Bld) 4.75 mil/cmm Normal 4.63-6.08 [facility] Comment on above: Performed By: #### C BC1 ####[place] [address] RDW SD 38.9 fl Normal 36.1-45.8 [facility] Comment on above: Performed By: #### C BC1 ####[place] [address] WBC Auto #/vol (Bld) 14.91 thou/cmm High 4.23-9.07 [facility] Comment on above: Performed By: #### C BC1 ####[place] [address] Hgb A1con 02-26-2018 Hemoglobin A1c/Hemoglobin.total mass fraction (Bld) 5.5 % Normal 4.2-6.3 [facility] Comment on above: Result Comment: Meth od is National Glycohemoglobin Standardization Program (NGSP) compliant. Performed By: #### G LMET ####[place] [address] PROGRESSon 02-26-2018 Protein mass conc HNO ID: [id number] thor: Carolyn RolleurService: Hospital MedicineAuthor Type: PhysicianType: Progress NotesFiled: 02/26/2018 1:12 PMNote Text:DEPARTMENT OF HOSPITAL MEDICINEPROGRESS NOTESERVICE DATE: 02/26/2018SERVICE TIME: 1:08 PMHospital Medicine/Primary Attending: Carolyn Byrnes MDNIGHT AND WEEKEND COVERAGE:After 7pm, please call cross cover pager #[phone]/Follow up for Facial cellulitisINTERVAL HPI: no acute [...] 2018 : 1:08 PM PAGER/CONTACT #: Normal [facility] Protein mass conc HNO ID: [id number] thor: Jose Luis Sanchez: Infectious DiseaseAuthor Type: PhysicianType: Progress NotesFiled: 02/26/2018 10:26 AMNote Text:10:25 AMAfebrileCulture pending.A/P: Continue cefepime, vanco and flagyl today. Final antibiotic rec's notyet determined. Check labs in am. Normal [facility] THERAPY NTon 02-26-2018 THERAPY NT HNO ID: [id number] thor: Jinny (Veterinary Nurse) Angel, KARYN/SLPService: Speech/SwallowAuthor Type: Speech Language PathologistType: Therapy (PT/OT/Speech/Resp)Filed: 02/26/2018 12:40 PMNote Text:Speech Therapy TreatmentSERVICE DATE: 02/26/2018SERVICE TIME: 1040 to 1100ROOM: [id number] Recommendations: Reinforce use of swallowing strategiesDiet Recommendations: [...] Diagnosis: Dysphagia, oropharyngeal phaseInterventions Provided: Dysphagia Therapy (18985)$ Dysphagia Therapy (12155) Billed Units: 1 unitSkilled Interventions: Reassessed swallow [...] for this therapy evaluation/treatment.JANEL E: Jinny Ortiz CCC-HEAD FILTER PRESS TENDER PATIENT NAME: Victor Hugo AsifDATE: February 26, 2018 : 12:31 PM Normal [facility] CONSULTon 02-25-2018 CONSULT HNO ID: [id number] thor: Gama Schneidere: Infectious DiseaseAuthor Type: PhysicianType: ConsultsFiled: 02/25/2018 7:47 PMNote Text:February 25, 2018 7:28 PMInfectious Disease Consult dictated #[id number].Imp: S/P ORIF bilateral mandibular fractures 01/27/18Received 3 [...] currently or in future.Gama Crawford MD Normal [facility] CONSULT HNO ID: [id number] thor: Gama Schneidere: Infectious DiseaseAuthor Type: PhysicianType: ConsultsFiled: 02/26/2018 11:52 AMNote Text:[facility] - ConsultationPATIENT NAME: VICTOR HUGO ASIF CMRN: [id number] CSN: [id number] OF : 1985 SEX/AGE: M/32PATIENT TYPE: I HOSP SVC: INT LOCATION: [id number] OF SERVICE: 02/25/2018INFECTIOUS DISEASE CONSULTTIME OF CONSULT: [...] clindamycin. Hehad a CT scan done at [facility], which showed soft tissue swellingbut no [...] is 36.7, blood pressure 116/70, pulse 71, bfidnvbyuiak11, O2 sat 99%. He has not had [...] CBC shows a white count of 6.9, .5, platelets 247.Differential; 61 segs, 29 lymphs, 7 monos.IMPRESSION:1. Status post open reduction internal fixation, bilateral mandibularfractures, January 27, followed by 3 weeks of oral clindamycin.2. Recent increasing pain and swelling of the left mandibular andsubmandibular region consistent with cellulitis. No abscess identified on CT scanat [facility]. Expected organisms would likely be oral [...] MDInfectious DiseaseGEB:modlD: 02/25/2018 19:47:00T: 02/26/2018 05:48:05Job #: [id number] [facility] Cult and Smr GARCÍA and AERon 0 02-25-2018 Cult and Smr GARCÍA and AER Test performed at [facility] Few Mixed skin olga lidia. No further identification to follow. Plates will be held for 5 days. No organisms seen Few Mononuclear cells Few Polymorphonuclear leukocytes Normal [facility] Comment on above: Performed By: #### G LMET ####[facility] [place] [id number] PROGRESSon 02-25-2018 Protein mass conc HNO ID: [id number] thor: Carolyn Nevesrvice: [facility] MedicineAuthor Type: PhysicianType: Progress NotesFiled: 02/25/2018 10:44 AMNote Text:[facility] MEDICINEPROGRESS NOTESERVICE DATE: 02/25/2018SERVICE TIME: 10:28 AMHospital Medicine/Primary Attending: Carolyn Byrnes MDNIGHT AND WEEKEND COVERAGE:After 7pm, please call cross cover pager #[phone]/Follow up for facial swellingINTERVAL HPI: no acute [...] 2018 : 10:28 AM PAGER/CONTACT #: Wendie [facility] THERAPY NTon 02-25-2018 THERAPY NT HNO ID: [id number] thor: Jena (Ccc-Veterinary Nurse) German CCC/SLPService: Speech/SwallowAuthor Type: Speech Language PathologistType: Therapy (PT/OT/Speech/Resp)Filed: 02/25/2018 1:59 PMNote Text:Speech Therapy Clinical Swallow EvaluationSERVICE DATE: 02/25/2018SERVICE TIME: 1320 to 1340ROOM: [id number] Recommendations:See swallow guide posted in patients roomDiet [...] Dysphagia, oropharyngeal phaseInterventions Provided: Clinical Swallow Evaluation (65071)$ Clinical Swallow Evaluation (33776) Billed Units: 1 unitTotal Treatment Time (minutes): [...] he had no ride so [facility] where he had CT scan of jaw that showed Moderatesoft tissue swelling about the mandibular regions. No discrete abscess, hewas subsequently transferred to [facility] for plastic surgery evaluation of hishardware.?Reason for Speech Therapy Consult: Consult ST for swallowing evalRelevant Past Medical History: Depression, DM, HTN, Obesity, PILAR,Schizoaffective disorder, EpiplepsyPatient Report: It just hurts and feels numbHome EnvironmentPrior Functional Level: Within Functional LimitsAssistance Available: PRNPrior Swallowing Function/Diet Textures: Regular Consistency;Thin liquidsPlease see discipline specific clinical documentation flowsheet forcomplete details for this therapy evaluation/treatment.JANEL Saul: Jena Porter CCC-HEAD FILTER PRESS TENDER PATIENT NAME: Victor Hugo AsifDATE: February 25, 2018 : 1:55 PM Normal [facility] Urine Drug Screenon 02-26-20 18 Urine Amphetamine Non-detected Normal Non-Detect ed [facility] Comment on above: Performed By: #### U DRG2 ####[facility] [place], [place] [address] Urine Barbiturates Non-detected Normal Non-Detec t ed [facility] Comment on above: Performed By: #### U DRG2 ####[address] [address] Urine Benzodiazepine Non-detected Normal Non-Det ect ed [facility] Comment on above: Performed By: #### U DRG2 ####[address] [address] Urine Cocaine Metab Non-detected Normal Non-Dete ct ed [facility] Comment on above: Performed By: #### U DRG2 ####[address] [address] Urine Opiate Non-detected Normal Non-Detect ed [facility] Comment on above: Performed By: #### U DRG2 ####[address] [address] Urine PCP Non-detected Normal Non-Detect ed [facility] Comment on above: Performed By: #### U DRG2 ####[address] [address] Urine THC Non-detected Normal Non-Detect ed [facility] Comment on above: Result Comment: Urin e [...] diagnosticpurposes only. Performed By: #### U DRG2 ####[address] [address] CRPon 02-24-2018 CRP mass conc 4.07 mg/dL High 0.00-0.30 [facility] Comment on above: Performed By: #### C RP3 ####[address] [address] Comprehensive Panelon 2017 ALP enzyme act/vol 83 U/L Normal 46-116 [facility] Comment on above: Performed By: #### P 14 ####[address] [address] Bilirubin mass conc 0.7 mg/dL Normal 0.2-1.0 [facility] Comment on above: Performed By: #### P 14 ####[address] [address] Protein mass conc 8.8 g/dL High 6.4-8.2 [facility] Comment on above: Performed By: #### P 14 ####[address] [address] ALT enzyme act/vol 17 U/L Normal 12-78 [facility] Comment on above: Performed By: #### P 14 ####[address] [address] AST enzyme act/vol 32 U/L Normal 9-37 [facility] Comment on above: Performed By: #### P 14 ####[address] [address] Creatinine mass conc 0.85 mg/dL Normal 0.67-1.17 [facility] Comment on above: Performed By: #### P 14 ####[address] [address] Albumin mass conc 3.3 g/dL Low 3.4-5.0 [facility] Comment on above: Performed By: #### P 14 ####[facility] [place], [place] [address] Anion gap 3 molar conc 9 mmol/L Normal 8-16 [facility] Comment on above: Performed By: #### P 14 ####[facility] [place], [place] [address] Calcium mass conc 9.2 mg/dL Normal 8.5-10.1 [facility] Comment on above: Performed By: #### P 14 ####[facility]1 [place], [place] [address] CO2 molar conc 27 mmol/L Normal 21-32 [facility] Comment on above: Performed By: #### P 14 ####[facility] [place], [place] [address] Glucose mass conc 77 mg/dL Normal 70-99 [facility] Comment on above: Performed By: #### P 14 ####[address] [address] Urea nitrogen mass conc 8 mg/dL Normal 7-18 [facility] Comment on above: Performed By: #### P 14 ####[address] [address] Chloride molar conc 106 mmol/L Normal 98-107 [facility] Comment on above: Performed By: #### P 14 ####[address] [address] Potassium molar conc 4.1 mmol/L Normal 3.5-5.1 [facility] Comment on above: Performed By: #### P 14 ####[address] [address] Sodium molar conc 138 mmol/L Normal 136-145 [facility] Comment on above: Performed By: #### P 14 ####[address] [address] HISTORY PHYSICALon 8 HISTORY PHYSICAL HNO ID: [id number] thor: Annelise Alfaro: Hospital MedicineAuthor Type: PhysicianType: [...] he had no ride so he [facility] where he had CT scan of jaw that showed Moderatesoft tissue swelling about the mandibular regions. 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- Lumbago- MRSA [...] Diarrhea- Penicillins GI Upset, Shortness of Breath- [place] Hives- Vicodin [Hydrocodon* HivesREVIEW OF SYSTEM:All other [...] --02/24/181999 vte non-pharmacologic prophylaxis - none indicated (ri,md)02/24/181999 activity - mobilize patient ([place])VTE Prophylaxis: VTE prophylaxis appropriateDisposition: HomePlan of care discussed with: Patient and RNSIGNATURE: Annelise Duran MD PATIENT NAME: Victor Hugo AsifDATE: February 24, 2018 : 8:00 PM PAGER/CONTACT #: [phone] Normal [facility] Hemogram/Diffon 02-24-2018 Abs Immature Grans 0.02 thou/cmm Normal 0.00-0.05 [facility] Comment on above: Performed By: #### C BCD1 ####[place] [address] Abs. Baso 0.04 thou/cmm Normal 0.01-0.08 [facility] Comment on above: Performed By: #### C BCD1 ####[place] [address] Abs. [place] 0.55 thou/cmm Normal 0.30-0.82 [facility] Comment on above: Performed By: #### C BCD1 ####[address] [address] Abs. Neut (ANC) 4.24 thou/cmm Normal 1.78-5.38 [facility] Comment on above: Performed By: #### C BCD1 ####[address] [address] Basophils/100 WBC Auto (Bld) 0.6 % Normal [facility] Comment on above: Performed By: #### C BCD1 ####[address] [address] Eosinophils Auto #/vol (Bld) 0.07 thou/cmm Normal 0.04-0.54 [facility] Comment on above: Performed By: #### C BCD1 ####[address] [address] Eosinophils/100 WBC Auto (Bld) 1.0 % Normal [facility] Comment on above: Performed By: #### C BCD1 ####[address] [address] Erythrocyte distribution width Auto Ratio (RBC) 13.4 % Normal 11.6-14.4 [facility] Comment on above: Performed By: #### C BCD1 ####[address] [address] Hematocrit Auto Volume Fraction (Bld) 39.6 % Low 40.1-51.0 [facility] Comment on above: Performed By: #### C BCD1 ####[address] [address] Hemoglobin mass conc (Bld) 12.5 g/dL Low 13.7-17.5 [facility] Comment on above: Performed By: #### C BCD1 ####[place] [address] Immature Grans 0.30 % Normal [facility] Comment on above: Performed By: #### C BCD1 ####[place] [address] Lymphocytes Auto #/vol (Bld) 2.03 thou/cmm Normal 0.84-2.85 [facility] Comment on above: Performed By: #### C BCD1 ####[address] [address] Lymphocytes/100 WBC Auto (Bld) 29.2 % Normal [facility] Comment on above: Performed By: #### C BCD1 ####[address] [address] MCH Auto Entitic mass (RBC) 26.3 pg Normal 25.7-32.2 [facility] Comment on above: Performed By: #### C BCD1 ####[address] [address] MCHC Auto mass conc (RBC) 31.6 % Low 32.3-36.5 [facility] Comment on above: Performed By: #### C BCD1 ####[address] [address] MCV Auto Entitic volume (RBC) 83.2 fL Normal 83.2-95.6 [facility] Comment on above: Performed By: #### C BCD1 ####[address] [address] Monocytes/100 WBC Auto (Bld) 7.9 % Normal [facility] Comment on above: Performed By: #### C BCD1 ####[address] [address] Platelet mean volume Auto Entitic volume (Bld) 10.8 fL Normal 8.7-12.0 [facility] Comment on above: Performed By: #### C BCD1 ####[address] [address] Platelets Auto #/vol (Bld) 247 thou/cmm Normal 141-365 [facility] Comment on above: Performed By: #### C BCD1 ####[address] [address] RBC Auto #/vol (Bld) 4.76 mil/cmm Normal 4.63-6.08 [facility] Comment on above: Performed By: #### C BCD1 ####[facility]1 [place] [address] RDW SD 40.8 fl Normal 36.1-45.8 [facility] Comment on above: Performed By: #### C BCD1 ####[facility] [place] [address] Seg Neutrophil 61.0 % Normal [facility] Comment on above: Performed By: #### C BCD1 ####[place] [address] WBC Auto #/vol (Bld) 6.95 thou/cmm Normal 4.23-9.07 [facility] Comment on above: Performed By: #### C BCD1 ####[place] [address] Magnesium Bloodon 02-24-2018 Magnesium mass conc 2.0 mg/dL Normal 1.6-2.6 [facility] Comment on above: Performed By: #### M AG ####[place] [address] NURSING PROGon 02-24-2018 Protein mass conc HNO ID: [id number] thor: Araceli (Rn) Mohit, NIHARIKAervice: (none)Author Type: Registered NurseType: Nursing Progress NoteFiled: 02/24/2018 9:17 PMNote Text:Dr. Duran notified of blood glucose of 65. Pt given 4 oz of orangejuice and was able to tolerate. MD states pt can be on full liquid dietand to take PO meds if able to and to hold insulin tonight. Ordersentered. Normal [facility] Phosphorus Bloodon 8 Phosphate mass conc 3.2 mg/dL Normal 2.5-4.9 [facility] Comment on above: Performed By: #### P HOS ####[place] [address] Protimeon 02-24-2018 INR Coag RelTime (PPP) 1.05 {INR} Normal 0.90-1.30 [facility] Comment on above: Result Comment: Note : [...] 70: 252-289 Performed By: #### P T ####[place] [address] Prothrombin time (PT) Coag time (PPP) 11.2 s Normal 9.7-13.0 [facility] Comment on above: Performed By: #### P T ####[place] [address]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 Family [facility] Comment on above: Auto-EJECT Start: 02-10-2023 Refill Marko Cain PRN.CNP Work Phone: Neurology Comment on above: Refill Request Start: 02-09-2023 Non-patient / Non-visit Dr. Lillian Azar Work Phone: [facility] Work Phone: Start: 02-08-2023 End: 02-09-2023 Evaluation and management of inpatient [facility]Progressive Care Unit Work Phone: Start: 02-02-2023 Telephone encounter Ranjit pablo DO Work Phone: [facility] [place] Comment on above: Insurance Authorizat ion Start: 01-31-2023 ambulatory Ranjit claudio DO Work Phone: [facility] [place] Comment on above: MEDICINE COLLECTION AT THIS POINT Start: 01-31-2023 Telephone encounter Zaria Guillermo [facility] Comment on above: New Primary Care Pha rmacy Appt. Start: 01-30-2023 End: 01-30-2023 Patient encounter procedure 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 Work Phone: [facility] [place] Comment on above: Type 2 diabetes mark itus with diabetic neuropathy, with long- term current use of insulin (HCC) (Primary Dx) Start: 01-25-2023 Telephone encounter Ranjit Heather pablo DO Work Phone: [facility] [place] Comment on above: Tens Unit Start: 01-23-2023 Refill [facility]audio DO [facility] Start: 01-18-2023 Telephone encounter Leanna chaudhry [...] 12-24-2022 End: 12-24-2022 Emergency department patient visit [facility] Work Phone: Start: 12-08-2022 Refill Ranjit claudio DO Work Phone: [facility] Comment on above: Refill Request Start: 11-01-2022 Telephone encounter Danilo may APRN.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 Work Phone: [facility] Comment on above: Results Start: 09-26-2022 Refill Ranjit Medeiros son DO Work Phone: [facility] Comment on above: Refill Request Start: 09-23-2022 Refill Ranjit Mdeeiros son DO Work Phone: [facility] Comment on above: Refill Request Start: 09-16-2022 Telephone encounter Anna Joya CHARGE OUT CLERK.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 Work Phone: Neurology Comment on above: Rejected CMN Start: 08-16-2022 End: 08-16-2022 [facility] Start: 08-05-[address] h[address] CHARGE OUT CLERK.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 Work Phone: [facility] Comment on above: Results Start: 08-01-2022 End: 08-01-2022 Subsequent hospital visit by physician [facility] Work Phone: Radiology Comment on above: Ankle arthritis [M19 .079] Start: 08-01-2022 End: 08-01-2022 Patient encounter procedure Ray Renata Work Phone: Podiatry Comment on above: Ankle arthritis ([facility] harriet Dx); Arthritis of subtalar joint; Bilateral foot-drop Start: 07-28-2022 Refill Marko Westport A PRN.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 Work Phone: Neurology Comment on above: Refill Request Start: 06-03-2022 Refill Ranjit Medeiros son DO Work Phone: [facility] Comment on above: Refill Request Start: 05-09-2022 Refill Ranjit Medeiros son DO Work Phone: [facility] Comment on above: Refill Request Start: 05-06-2022 Refill Marko Westport A PRN.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 Work Phone: Neurology Comment on above: Refill Request Start: 04-08-2022 Refill Ranjit Medeiros son DO Work Phone: [facility] [place] Comment on above: Refill Request Start: 04-05-2022 Refill Ranjit claudio DO Work Phone: [facility] [place] Comment on above: Refill Request Start: 03-25-2022 ambulatory Ranjit claudio DO Work Phone: [facility] [place] Comment on above: TRANSPORTATION Start: 02-14-2022 End: 02-14-2022 [facility] Leanna Owens MD Work Phone: Neurology Comment on above: Seizure disorder (HC C) (Primary Dx) Start: 02-11-2022 Refill Kinga Aleman PA-C Work Phone: Neurology Comment on above: Refill Request Start: 02-03-2022 ambulatory Ranjit claudio DO Work Phone: [facility] [place] Comment on above: Novolog Start: 02-01-2022 Telephone encounter Ranjit pablo DO Work Phone: [facility] [place] Comment on above: medication clarifica tion Start: 01-25-2022 End: 01-25-2022 [facility] Work Phone: [facility] Comment on above: Spirometry Start: 01-25-2022 End: 01-25-2022 Patient encounter procedure Pulm Fct Lab [facility] Work Phone: [facility] Start: 01-19-2022 ambulatory Love boyd CHARGE OUT CLERK.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 Work Phone: [facility] [place] Comment on above: Question regarding L VEF TRANSTHORACIC ECHO Start: 01-14-2022 End: 01-14-2022 Patient encounter procedure Nicole Roberts CHARGE OUT CLERK.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 Work Phone: [facility] [place] Comment on above: Fall, subsequent enc ounter (Primary Dx); Scratches Start: 01-08-2022 End: 01-08-2022 [facility] Start: 12-24-2021 Telephone encounter Nicole shelton CHARGE OUT CLERK.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 Work Phone: [facility] [place] Comment on above: Results Start: 12-23-2021 End: 12-23-2021 Patient encounter procedure Nicole Roberts 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 Work Phone: [facility] [place] Comment on above: Syncope, unspecified syncope type (Primary Dx); Type 2 diabetes mellitus without complication, with long-term current use of insulin (HCC); Seizure disorder (HCC); Obesity, Class II, BMI 35-39.9; Dizziness Start: 12-18-2021 End: 12-18-2021 [facility] Start: 12-16-2021 End: 12-16-2021 Patient encounter procedure Leanna Owens MD Work Phone: Neurology Comment on above: APPOINTMENT CANCELLE D Start: 12-16-2021 End: 12-16-2021 Telemedicine consultation with patient Leanna Owens MD Work Phone: [facility] Start: 11-08-2021 End: 11-08-2021 ambulatory [...] Ranjit claudio DO Work Phone: [facility] [place] Comment on above: NEED NEW [place] CANDELARIA SHANKAR Start: 09-23-2021 End: 09-23-2021 Telemedicine consultation with patient Love Nguyen MAX Work Phone: [facility] Start: 09-23-2021 End: 09-23-2021 ambulatory Ranjit Azar DO Work Phone: [facility] [place] Comment on above: Hiccups Type 2 diabetes [...] Sensors Start: 09-08-2021 Patient Outreach Nancy Cid Detailer Management Comment on above: Transition Of Care ( ([facility] D/C, 09-07-2021, TCM INITIAL OUTREACH, 1st ATTEMPT,, LVM) Start: 09-06-2021 Chart abstracting Manuelito boyd [facility] Comment on above: Informed Consent (IR B [id number]) Start: 08-31-2021 End: 08-31-2021 [facility] Virtual Pre Anesthesia Comment on above: Pre-op evaluation (P rimary Dx); Ankle arthritis; Seizure disorder (HCC); Type 2 diabetes mellitus with diabetic neuropathy, with long-term current use of insulin (HCC); Essential hypertension; PILAR (obstructive sleep apnea); Asthma, unspecified asthma severity, unspecified whether complicated, unspecified whether persistent; Undifferentiated schizophrenia ([facility]); Class 2 obesity due to excess calories with body mass index (BMI) of 38.0 to 38.9 in adult, unspecified whether serious comorbidity present Sugar Levels Start: 08-31-2021 End: 08-31-2021 Preprocedural examination done Pacc Virtual Pre Anesthesia Start: 08-27-2021 Telephone encounter Ray Garber Work Phone: Podiatry Comment on above: Schedule Surgery Start: 04-14-2021 End: 04-14-2021 Subsequent hospital visit by physician Levon [facility] [place] Work Phone: Radiology Comment on above: [...] Evaluation and management of inpatient MCKENZIE ZAMARRIPA Facility:[facility] Start: 01-26-2018 End: 01-29-2018 Evaluation and management of inpatient RANJIT AZAR Facility:[facility] Procedures Date Procedure Procedure Detail Performing Clinician Start: 03-05-2025 Estimated creatinine clearance Javid Winter MD Work Phone: Start: 03-04-2025 Cardiovascular stres s test using pharmacologic stress agent Javid Winter MD Work Phone: Start: 03-04-2025 Radiologic exam ches t 2 views aJvid Winter MD Work Phone: Start: 03-04-2025 D-dimer assay, quantitative Javid Winter MD Work Phone: Comment on above: NORMAL D-Dimer level (<0.50) indicates no DVT or PE. Start: 01-27-2025 Hemoglobin A1c/Hemoglobin.total in Blood [facility] Provider Start: 01-21-2025 Estimated creatinine clearance Javid Winter MD Work Phone: Start: 01-21-2025 CT of head without contrast Javid Winter MD Work Phone: Start: 06-19-2024 Hemoglobin A1c/Hemoglobin.total in Blood Love Nguyen CHARGE OUT CLERK.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 Work Phone: Start: 06-19-2024 Adult depression scr eening assessment Loveeverardo Nguyen CHARGE OUT CLERK.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 Work Phone: Start: 05-31-2023 Radiologic examinati on of knee Dr. Ranjit Azar Work Phone: Start: 02-08-2023 CT of head without contrast Start: 01-30-2023 Hemoglobin A1c/Hemoglobin.total in Blood Love Nguyen CHARGE OUT CLERK.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 Work Phone: Start: 01-17-2023 Mri brain brain [...] Adult depression scr eening assessment Nicole Zacherycat CHARGE OUT CLERK.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 Work Phone: Start: 01-08-2022 Plain x-ray of [...] exam ches t 2 views Love Nguyen CHARGE OUT CLERK.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 Work Phone: Start: 01-01-2020 Gluc bld gluc mntr d ev cleared fda spec home use Gama Ludwig Work Phone: Start: 12-31-2019 Radiologic examinati on mandiple prtl <4 views Wolfgang Cheng Work Phone: Start: 12-31-2019 Basic metabolic pane l calcium total Gama Ludwig Work Phone: Start: 12-31-2019 Blood count complete automated Gama Cain [employer] Work Phone: Start: 12-30-2019 OPERATIVE REPORT 3m Sca nning Start: 12-30-2019 Gluc bld gluc mntr d ev cleared fda spec home use Gama Cain [employer] Work Phone: Start: 12-30-2019 Culture bacterial an y source anaerobic iso&id Gama Cain [employer] Work Phone: Start: 12-30-2019 Culture bacterial bl ood aerobic w/id isolates Gama Cain [employer] Work Phone: Start: 12-30-2019 BASIC METABOLIC PANE L W/ REFLEX TO MG FOR LOW K Orly Vidal Dmitri Work Phone: Start: 12-30-2019 Blood count hemoglobin Orly Vidal Dmitri Work Phone: Start: 12-30-2019 Gluc bld gluc mntr d ev cleared fda spec home use Gama Cain [employer] Work Phone: Start: 08-02-2019 Echo tthrc r-t 2d w/wom-mode compl spec&colr d Preethi Brush Work Phone: Start: 08-02-2019 Myocardial spect mul tiple studies Preethi Brush Work Phone: Start: 07-18-2019 BASIC METABOLIC PANE L W/ REFLEX TO MG FOR LOW K Gama Cain [employer] Work Phone: Start: 07-18-2019 Blood count complete auto&auto difrntl wbc Gama Cain [employer] Work Phone: Start: 07-18-2019 Ecg routine ecg w/le ast 12 lds w/i&r Orly Rizvi Work Phone: Plan of Treatment Date Care Activity Detail Author Start: 08-20-2033 Shingles Vaccine (1 of 2) Shingles Vaccine (1 of 2) [facility] Work Phone: Start: 08-25-2026 Annual PCP Team Chronic Disease Visit Annual PCP Team Chronic Disease Visit [facility] Start: 01-27-2026 HPV Vaccine (1 - 3-dose SCDM series) HPV Vaccine (1 - 3-dose SCDM series) [facility] Comment on above: Postponed from 08/20/2010 (Declined at t his time) Start: 06-29-2025 Glaucoma screening Dilated Retinal Exam [facility] Start: 06-29-2025 Hepatitis B screening Urine Albumin:Creatinine Ratio [facility] Start: 06-29-2025 Hepatitis B surface antibody level LDL Cholesterol [facility] Start: 06-19-2025 Annual PCP Team Chronic Disease Visit Annual PCP Team Chronic Disease Visit [facility] Start: 06-19-2025 Anxiety Screening Anxiety Screening [facility] Start: 06-19-2025 Depression Screening Depression Screening [facility] Start: 06-19-2025 Urine microalbumin profile DTaP,Tdap,Td Vaccine (1 - Tdap) [facility] Comment on above: Postponed from 08/20/2002 (Declined at t his time) Start: 05-05-2025 End: 05-05-2025 Patient encounter procedure 05/05/2025 1:20 PM EST Office Visit [facility] [place] [address] [place] [address] Ranjit Azar, [address] [place] [address] follow up [facility] [place] Comment on above: follow up Start: 04-29-2025 Hemoglobin A1c measurement HbA1C [facility] Start: 03-05-2025 Patient discharge [facility] Start: 03-05-2025 [facility] Start: 03-04-2025 Following clinical pathway protocol [facility] Start: 03-04-2025 Ambulation without limitation [facility] Start: 03-04-2025 Assessment of risk of venous thromboembolism [facility] Start: 03-04-2025 Care regimes management [facility] Start: 03-04-2025 Insertion of catheter into peripheral vein [facility] Start: 03-04-2025 Notification of physician [facility] Start: 03-04-2025 Oxygen therapy [facility] Start: 03-04-2025 Providing care according to standard [facility] Start: 03-04-2025 End: 03-04-2025 [facility] Start: 03-04-2025 Verification routine [facility] Start: 03-04-2025 Admission procedure [facility] Start: 03-04-2025 [facility] Start: 02-03-2025 Influenza vaccination Influenza Vaccine (#1) [facility] Start: 01-27-2025 End: 01-27-2025 Patient encounter procedure 01/27/2025 10:20 AM EDT Office Visit Family [facility] [address] [place], [place] [id number] Lance Pulido APRN.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 [address] [place], [place] [id number] 6 mo med review [facility] Comment on above: 6 mo med review Start: 01-21-2025 [facility] Start: 12-02-2024 Influenza vaccination Influenza Vaccine (#1) [facility] Comment on above: Postponed from 02/04/2024 (Declined at t his time) Start: 09-29-2024 End: 12-29-2024 25-hydroxyvitamin D3 [Mass/volume] in Serum or Plasma VITAMIN D 25 HYDROXY Lab Routine Vitamin D deficiency Expected: 09/29/2024, Expires: 12/29/2024 [facility] Work Phone: Comment on above: Expected: 09/29/2024, Expires: Start: 09-17-2024 Hemoglobin A1c measurement HbA1C [facility] Start: 08-02-2024 End: 08-02-2024 Patient encounter procedure 08/02/2024 9:00 AM EST Office Visit Neurology [address] [place] [address] Leanna Owens MD [address] [facility] [address] [place] [address] Seizure disorder (HCC) [G40.909] Neurology Comment on above: Seizure disorder (HCC) [G40.909] Start: 07-22-2024 End: 07-22-2024 Patient encounter procedure 07/22/2024 10:00 AM EST Office Visit [facility] [place] [address] [place] [address] Nicole Bass APRN.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 [address] [place] [address] dm follow up [facility] [place] Comment on above: dm follow up Start: 06-19-2024 End: 09-18-2024 25-hydroxyvitamin D3 [Mass/volume] in Serum or Plasma VITAMIN D 25 HYDROXY Lab Routine Well adult exam Vitamin D deficiency Expected: 06/19/2024, Expires: 09/18/2024 [facility] Comment on above: Expected: 06/19/2024, Expires: Start: 06-19-2024 End: 09-18-2024 CBC panel - Blood by Automated count COMPLETE BLOOD COUNT Lab Routine Essential hypertension Well adult exam Expected: 06/19/2024, Expires: 09/18/2024 [facility] Comment on above: Expected: 06/19/2024, Expires: Start: 06-19-2024 End: 09-18-2024 Comprehensive metabolic 2000 panel - Serum or Plasma COMPREHENSIVE METABOLIC PANEL Lab Routine Essential hypertension Well adult exam Expected: 06/19/2024, Expires: 09/18/2024 [facility] Comment on above: Expected: 06/19/2024, Expires: Start: 06-19-2024 End: 09-18-2024 Lipid 1996 panel - Serum or Plasma LIPID PANEL BASIC Lab Routine Mixed hyperlipidemia Well adult exam Expected: 06/19/2024, Expires: 09/18/2024 [facility] Comment on above: Expected: 06/19/2024, Expires: Start: 06-19-2024 End: 09-18-2024 Microalbumin/Creatinine [Mass Ratio] in Urine ALBUMIN/CREATININE RATIO, URINE Lab Routine Type 2 diabetes mellitus with diabetic neuropathy, with long-term current use of insulin (HCC) Well adult exam Expected: 06/19/2024, Expires: 09/18/2024 [facility] Work Phone: Comment on above: Expected: 06/19/2024, Expires: 5 Start: 06-19-2024 End: 09-18-2024 Thyrotropin [Units/volume] in Serum or Plasma THYROID STIMULATING HORMONE Lab Routine Well adult exam Screening for thyroid disorder Expected: 06/19/2024, Expires: 09/18/2024 [facility] Comment on above: Expected: 06/19/2024, Expires: 5 Start: 02-04-2024 Influenza vaccination [facility] Start: 01-31-2024 ANNUAL PCP TEAM CHRONIC DISEASE VISIT ANNUAL PCP TEAM CHRONIC DISEASE VISIT [facility] Start: 10-29-2023 ANNUAL PCP TEAM CHRONIC DISEASE VISIT ANNUAL PCP TEAM CHRONIC DISEASE VISIT [facility] Start: 10-29-2023 Hepatitis B screening URINE ALBUMIN:CREATININE RATIO [facility] Start: 10-29-2023 Hepatitis B surface antibody level LDL CHOLESTEROL [facility] Start: 06-05-2023 Depression Assessment Depression Assessment [facility] Start: 05-02-2023 End: 07-02-2023 Hemoglobin A1c in Blood HGB A1C Lab Routine Type 2 diabetes mellitus with diabetic neuropathy, with long-term current use of insulin (HCC) Expected: 05/02/2023, Expires: 07/02/2023 [facility] Work Phone: Comment on above: Expected: 05/02/2023, Expires: 4 Start: 05-02-2023 Hemoglobin A1c measurement HbA1C [facility] Start: 05-02-2023 Hemoglobin A1c/Hemoglobin.total in Blood HBA1C [facility] Start: 02-12-2023 Adult depression screening assessment DEPRESSION SCREENING [facility] Start: 02-11-2023 Blood chemistry [facility] Start: 02-10-2023 Blood chemistry [facility] Start: 02-09-2023 Patient discharge [facility] Start: 02-09-2023 [facility] Start: 02-09-2023 Inhalation therapy procedure [facility] Start: 02-08-2023 Care regimes management [facility] Start: 02-08-2023 Notification of physician [facility] Start: 02-08-2023 End: 02-08-2023 [facility] Start: 02-08-2023 Assessment of risk of venous thromboembolism [facility] Start: 02-08-2023 Insertion of catheter into peripheral vein [facility] Start: 02-08-2023 Measuring intake and output [facility] Start: 02-08-2023 Providing care according to standard [facility] Start: 02-08-2023 Provision of activity privileges [facility] Start: 02-08-2023 Referral to occupational therapist [facility] Start: 02-08-2023 Referral to service [facility] Start: 02-08-2023 Telepractice consultation [facility] Start: 02-08-2023 [facility] Start: 02-08-2023 Following clinical pathway protocol [facility] Start: 02-08-2023 Verification routine [facility] Start: 02-08-2023 Admission procedure [facility] Start: 02-03-2023 Influenza vaccination [facility] Start: 01-28-2023 Hemoglobin A1c/Hemoglobin.total in Blood [facility] Start: 01-14-2023 Adult depression screening assessment DEPRESSION SCREENING [facility] Start: 01-14-2023 ANNUAL PCP TEAM CHRONIC DISEASE VISIT ANNUAL PCP TEAM CHRONIC DISEASE VISIT [facility] Start: 01-06-2023 End: 03-08-2023 25-hydroxyvitamin D3 [Mass/volume] in Serum or Plasma VITAMIN D 25 HYDROXY Lab Routine Nonintractable epilepsy without status epilepticus, unspecified epilepsy type (HCC) Vitamin D deficiency Expected: 01/06/2023, Expires: 03/08/2023 [facility] Work Phone: Comment on above: Expected: 01/06/2023, Expires: 3 Start: 01-06-2023 End: 03-08-2023 Comprehensive metabolic 2000 panel - Serum or Plasma COMP METABOLIC PANEL Lab Routine Nonintractable epilepsy without status epilepticus, unspecified epilepsy type (HCC) Expected: 01/06/2023, Expires: 03/08/2023 [facility] Work Phone: Comment on above: Expected: 01/06/2023, Expires: 3 Start: 01-06-2023 End: 03-08-2023 Valproate [Mass/volume] in Serum or Plasma VALPROIC A/DEPAKENE Lab Routine Nonintractable epilepsy without status epilepticus, unspecified epilepsy type (HCC) Expected: 01/06/2023, Expires: 03/08/2023 [facility] Work Phone: Comment on above: Expected: 01/06/2023, Expires: 3 Start: 12-23-2022 ANNUAL PCP TEAM CHRONIC DISEASE VISIT ANNUAL PCP TEAM CHRONIC DISEASE VISIT [facility] Start: 12-23-2022 BP CONTROLLED (<130/80) BP CONTROLLED (<130/80) [facility] Start: 12-23-2022 Hepatitis B surface antibody level LDL CHOLESTEROL [facility] Start: 12-23-2022 Urine microalbumin profile DTAP,TDAP,TD (1 - Tdap) [facility] Comment on above: Postponed from 08/20/2002 (Declined at t his time) Start: 12-09-2022 Adult depression screening assessment DEPRESSION SCREENING [facility] Start: 10-20-2022 Adult depression screening assessment DEPRESSION SCREENING [facility] Start: 09-23-2022 ANNUAL PCP TEAM CHRONIC DISEASE VISIT ANNUAL PCP TEAM CHRONIC DISEASE VISIT [facility] Start: 09-21-2022 Adult depression screening assessment DEPRESSION SCREENING [facility] Start: 07-24-2022 Hepatitis B screening URINE ALBUMIN:CREATININE RATIO [facility] Start: 07-24-2022 Hepatitis B surface antibody level LDL CHOLESTEROL [facility] Start: 07-21-2022 Adult depression screening assessment DEPRESSION SCREENING [facility] Start: 07-21-2022 ANNUAL PCP TEAM CHRONIC DISEASE VISIT ANNUAL PCP TEAM CHRONIC DISEASE VISIT [facility] Start: 06-05-2022 DEPRESSION ASSESSMENT DEPRESSION ASSESSMENT [facility] Start: 03-25-2022 Hemoglobin A1c/Hemoglobin.total in Blood [facility] Start: 02-10-2022 3 comp foot exam completed DIABETIC FOOT EXAM [facility] Start: 02-10-2022 COVID-19 VACCINE (#1) COVID-19 VACCINE (#1) [facility] Comment on above: Postponed from 08/20/1988 (Declined at t his time) Postponed from 02/20 (Declined at this time) Start: 02-10-2022 COVID-19 VACCINE (1) COVID-19 VACCINE (1) [facility] Comment on above: Postponed from 08/20/1988 (Declined at t his time) Start: 02-10-2022 Diabetic foot examination Diabetic Foot Exam [facility] Start: 02-03-2022 Influenza vaccination [facility] Start: 01-21-2022 Hemoglobin A1c/Hemoglobin.total in Blood [facility] Start: 12-23-2021 End: 02-22-2022 CBC panel - Blood by Automated count [facility] Work Phone: Comment on above: Expected: 12/23/2021, Expires: 2 Start: 12-23-2021 End: 02-22-2022 Comprehensive metabolic 2000 panel - Serum or Plasma [facility] Work Phone: Comment on above: Expected: 12/23/2021, Expires: 2 Start: 12-23-2021 End: 02-22-2022 Hemoglobin A1c in Blood [facility] Work Phone: Comment on above: Expected: 12/23/2021, Expires: 2 Start: 12-23-2021 End: 02-22-2022 Lipid 1996 panel - Serum or Plasma [facility] Work Phone: Comment on above: Expected: 12/23/2021, Expires: 2 Start: 12-23-2021 End: 02-22-2022 Magnesium [Mass/volume] in Serum or Plasma [facility] Work Phone: Comment on above: Expected: 12/23/2021, Expires: 2 Start: 12-23-2021 End: 02-22-2022 Thyrotropin [Units/volume] in Serum or Plasma [facility] Work Phone: Comment on above: Expected: 12/23/2021, Expires: 2 Start: 12-02-2021 Influenza vaccination INFLUENZA (#1) [facility] Comment on above: Postponed from 02/03/2021 (Declined at t his time) Start: 10-22-2021 End: 12-22-2021 GARCÍA BY IFA WITH REFLEX [facility] Work Phone: Comment on above: Expected: 10/22/2021, Expires: 2 Start: 10-22-2021 End: 12-22-2021 C reactive protein [Mass/volume] in Serum or Plasma [facility] Work Phone: Comment on above: Expected: 10/22/2021, Expires: 2 Start: 10-22-2021 End: 12-22-2021 Cyclic citrullinated peptide IgG Ab [Units/volume] in Serum or Plasma [facility] Work Phone: Comment on above: Expected: 10/22/2021, Expires: 2 Start: 10-22-2021 End: 12-22-2021 RHEUMATOID FACTOR BL [facility] Work Phone: Comment on above: Expected: 10/22/2021, Expires: 2 Start: 10-22-2021 End: 12-22-2021 Urate [Mass/volume] in Serum or Plasma [facility] Work Phone: Comment on above: Expected: 10/22/2021, Expires: 2 Start: 10-22-2021 End: 12-22-2021 VITAMIN D 25 HYDROXY [facility] Work Phone: Comment on above: Expected: 10/22/2021, Expires: 2 Start: 08-07-2021 BP CONTROLLED (<130/80) BP CONTROLLED (<130/80) [facility] Start: 06-05-2021 DEPRESSION ASSESSMENT DEPRESSION ASSESSMENT [facility] Start: 12-30-2020 Creatinine measurement Creatinine monitoring [...] End: 12-30-2019 Appointment 12/30/2019 Appointment General Surgery aGma Ludwig MD [address] [place], [place] [id number] [facility] General Surgery Start: 08-22-2019 End: 08-22-2019 Office Visit 08/22/2019 Office Visit Cardiology Preethi Brush MD [address] [facility] [place], [place] [id number] [facility] Start: 07-25-2019 End: 07-25-2019 Appointment 07/25/2019 Appointment General Surgery Gama Ludwig MD [address] [place] [address] [facility] General Surgery Start: 05-21-2019 Glaucoma screening Dilated Retinal Exam [facility] Start: 05-21-2019 Hepatitis C antibody, confirmatory test DILATED RETINAL EXAM [facility] Start: 04-02-2019 Creatinine monitoring Creatinine monitoring [facility] Work Phone: Start: 04-02-2019 Potassium monitoring Potassium monitoring [facility] Work Phone: Start: 03-30-2019 A1C test (Diabetic or Prediabetic) A1C test (Diabetic or Prediabetic) [facility] Work Phone: Start: 03-30-2019 HbA1c (Bld) [Mass fraction] A1C test (Diabetic or Prediabetic) [place], [place] Start: 02-03-2019 Influenza vaccination Flu vaccine (#1) [facility] Work Phone: Start: 08-20-2010 HPV Vaccine (1 - 3-dose SCDM series) HPV Vaccine (1 - 3-dose SCDM series) [facility] Start: 08-20-2002 DTaP/Tdap/Td vaccine (1 - Tdap) DTaP/Tdap/Td vaccine (1 - Tdap) [place], [place] Start: 08-20-2002 HEPATITIS B (1 of 3 - Risk 3-dose series) HEPATITIS B (1 of 3 - Risk 3-dose series) [facility] Start: 08-20-2002 Urine microalbumin profile [facility] Start: 08-20-2001 Anxiety Screening Anxiety Screening [facility] Start: 08-20-2001 Depression Screening Depression Screening [facility] Start: 08-20-2001 Diabetic microalbuminuria test Diabetic microalbuminuria test [facility] Work Phone: Start: 1999 ONE PNEUMOVAX PRIOR TO AGE 65 ONE PNEUMOVAX PRIOR TO AGE 65 [facility] Start: 08-20-1998 HIV screen HIV screen [facility] Work Phone: Start: 08-20-1998 HIV screening HIV screen [place], [place] Start: 08-20-1994 DTaP/Tdap/Td vaccine (1 - Tdap) DTaP/Tdap/Td vaccine (1 - Tdap) [facility] Work Phone: Start: 08-20-1993 [object Object] Diabetic foot exam [facility] Work Phone: Start: 08-20-1993 Diabetic foot examination Diabetic foot exam [place], [place] Start: 08-20-1993 Diabetic retinal exam Diabetic retinal exam [facility] Work Phone: Start: 08-20-1993 Lipid panel Lipid screen [place], [place] Start: 08-20-1993 Lipid screen Lipid screen [facility] Work Phone: Start: 08-20-1989 PNEUMOCOCCAL (1 - PCV) PNEUMOCOCCAL (1 - PCV) [facility] Start: 08-20-1984 Varicella vaccine (1 of 2 - 2-dose childhood series) Varicella vaccine (1 of 2 - 2-dose childhood series) [facility] Work Phone: Start: 02-21-1984 COVID-19 VACCINE (#1) COVID-19 VACCINE (#1) [facility] Start: 1985 HEPATITIS B (1 of 3 - 3-dose series) HEPATITIS B (1 of 3 - 3-dose series) [facility] End: 12-25-2019 Basic Metabolic Panel w/ Reflex to MG Basic Metabolic Panel w/ Reflex to MG Lab Routine One Time for 1 Occurrences starting 12/25/2019 until 12/25/2019 [place] Comment on above: One Time for 1 Occurrences starting 12/04 until 12/25/2019 End: 08-02-2019 Cardiac Stress Test- W Pharm Cardiac Stress Test- W Pharm Cardiac Services Routine One Time for 1 Occurrences starting 08/02/2019 until 08/02/2019 [facility] on above: One Time for 1 Occurrences starting 07/07 until 08/02/2019 End: 12-31-2019 CRP [Mass/Vol] C-Reactive Protein Lab Routine One Time for 1 Occurrences starting 12/31/2019 until 12/31/2019 [facility] Comment on above: One Time for 1 Occurrences starting 12/04 until 12/31/2019 Culture, Aerobic Loida teria with Gram Stain Culture, Aerobic Bacteria with Gram Stain Microbiology Routine 12/30/2019 2:25 PM EDT [facility] Culture, Anaerobic Culture, Anae robic Microbiology Routine 12/30/2019 2:25 PM EDT [facility] End: 12-23-2022 ECG COMPLETE ECG COMPLETE ECG Routine Syncope, unspecified syncope type 1 Occurrences starting 12/23/2021 until 12/23/2022 [facility] Work Phone: Comment on above: 1 Occurrences starting 12/23/2021 until 12/23/2022 ECG COMPLETE ECG COMPLETE ECG 12/23/2021 11:21 AM EDT [facility] End: 12-23-2022 Echocardiography ECHO Cardiology Routine Syncope, unspecified syncope type 1 Occurrences starting 12/23/2021 until 12/23/2022 [facility] Work Phone: Comment on above: 1 Occurrences starting 12/23/2021 until 12/23/2022 EKG 12 Lead EKG 12 Lead ECG Routine 07/18/2019 3:59 PM EST [facility] Work Phone: Hemoglobin A1c in Blood HGB A1C Lab Routine Type 2 diabetes mellitus with diabetic neuropathy, with long-term current use of insulin ([facility]) 01/30/2023 9:00 AM EDT [facility] Work Phone: End: 12-25-2019 Hemoglobin and Hematocrit, Blood Hemoglobin and Hematocrit, Blood Lab Routine One Time for 1 Occurrences starting 12/25/2019 until 12/25/2019 [facility] Comment on above: One Time for 1 Occurrences starting 12/04 until 12/25/2019 End: 03-16-2023 Mri brain brain stem w/o contrast material MRI BRAIN WO IVCON Radiology Routine Seizure disorder (HCC) 1 Occurrences starting 02/14/2022 until 03/16/2023 [facility] Work Phone: Comment on above: 1 Occurrences starting 02/14/2022 until 03/16/2023 End: 02-05-2024 Mri brain brain stem w/o contrast material MRI BRAIN WO IVCON Radiology Routine Nonintractable epilepsy without status epilepticus, unspecified epilepsy type (HCC) 1 Occurrences starting 01/06/2023 until 02/05/2024 [facility] Work Phone: Comment on above: 1 Occurrences starting 01/06/2023 until 02/05/2024 End: 08-02-2019 Nasal Cannula Oxygen Nasal Cannula Oxygen Respiratory Care Routine As Needed until discontinued starting 08/02/2019 [facility] Comment on above: As Needed until discontinued starting Oxygen therapy Initiate Oxygen Therapy Protocol Respiratory Care Routine Daily until discontinued starting 12/30/2019 [facility] Comment on above: Daily until discontinued starting 2019 Patient Education [facility] Work Phone: Patient referral [facility] Work Phone: POCT glucose [facility] Phipps Comment on above: 4X Daily (AC & HS) until discontinued st arting 01/01/2020 As Needed until disc ontinued starting 01/01/2020 PT PLAN OF CARE CERTIFICATION PT PLAN OF CARE CERTIFICATION Procedures Routine Arthritis of foot Polyarthralgia Chronic pain of both ankles Limited joint range of motion (ROM) Ordered: 11/08/2021 [facility] Work Phone: Comment on above: Ordered: 11/08/2021 End: 12-31-2019 Sedimentation Rate Sedimentation Rate Lab Routine One Time for 1 Occurrences starting 12/31/2019 until 12/31/2019 [facility] Comment on above: One Time for 1 Occurrences starting 12/04 until 12/31/2019 SPIROMETRY - BASELIN E AND POST DILATOR SPIROMETRY - BASELINE AND POST DILATOR PFT Routine Severe persistent asthma without complication 01/25/2022 10:12 AM EDT [facility] Work Phone: End: 12-25-2019 Valproic acid level, total Valproic acid level, total Lab Routine One Time for 1 Occurrences starting 12/25/2019 until 12/25/2019 [place] Comment on above: One Time for 1 Occurrences starting 12/04 until 12/25/2019 End: 08-31-2023 XR ANKLE GENERAL 3V AP/LAT/OBL BILATERAL XR ANKLE GENERAL 3V AP/LAT/OBL BILATERAL Radiology Routine Ankle arthritis Arthritis of subtalar joint 1 Occurrences starting 08/01/2022 until 08/31/2023 [facility] Work Phone: Comment on above: 1 Occurrences starting 08/01/2022 until 08/31/2023 XR ANKLE GENERAL 3V AP/LAT/OBL BILATERAL XR ANKLE GENERAL 3V AP/LAT/OBL BILATERAL Radiology Routine Ankle arthritis Arthritis of subtalar joint 08/01/2022 9:45 AM EST [facility] Work Phone: [facility] Immunizations Immunization Date Immunization Notes Care Provider Kai alvarado 05-01-2019 influenza virus vaccine, unspecified formulation Patricia Tran [facility] Work Phone: [facility] 02-11-2019 Influenza virus vaccine W [facility] 02-11-2019 influenza, injectabl e, quadrivalent, preservative free Danilo King CHARGE OUT CLERK.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 Work Phone: [facility] Work Phone: 02-11-2019 influenza, seasonal, injectable, preservative free Danilo King CHARGE OUT CLERK.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 Work Phone: [facility] Work Phone: 09-17-1997 TD(adult) unspecifie d formulation Javid Winter MD Work Phone: [facility] 03-21-1997 hepatitis B vaccine, pediatric or pediatric/adolescent dosage Javid Winter MD Work Phone: [facility] 10-18-1996 hepatitis B vaccine, pediatric or pediatric/adolescent dosage Javid Winter MD Work Phone: [facility] 09-18-1996 hepatitis B vaccine, pediatric or pediatric/adolescent dosage Javid Winter MD Work Phone: [facility] 09-18-1996 measles, mumps and rubella virus vaccine Javid Winter MD Work Phone: [facility] 10-12-1987 diphtheria, tetanus toxoids and acellular pertussis vaccine Javid Winter MD Work Phone: [facility] 02-10-1986 diphtheria, tetanus toxoids and acellular pertussis vaccine Javid Winter MD Work Phone: [facility] 02-10-1986 trivalent poliovirus vaccine, live, oral Javid Winter MD Work Phone: [facility] 09-10-1985 haemophilus influenz ae type b vaccine, PRP-T conjugate Javid Winter MD Work Phone: [facility] 04-22-1985 diphtheria, tetanus toxoids and acellular pertussis vaccine Javid Winter MD Work Phone: [facility] 04-22-1985 trivalent poliovirus vaccine, live, oral Javid Winter MD Work Phone: [facility] 02-28-1985 diphtheria, tetanus toxoids and acellular pertussis vaccine Javid Winter MD Work Phone: [facility] 02-28-1985 trivalent poliovirus vaccine, live, oral Javid Winter MD Work Phone: [facility] 01-28-1985 measles, mumps and rubella virus vaccine Javid Winter MD Work Phone: [facility] 01-01-1985 diphtheria, tetanus toxoids and acellular pertussis vaccine Javid Winter MD Work Phone: [facility] 01-01-1985 trivalent poliovirus vaccine, live, oral Javid Winter MD Work Phone: [facility] Payers Date Payer Category Payer Self-pay [id number] 2024 [facility] ETT[facility] [id number] 2024 Unknown [id number] 2023 Unknown [id number] 2016 Medicaid [id number] 2016 [facility] xxxxxxxxxxx 2016-Present [phone] CLAIMS DEPARTMENT [address] [place] [address] xxxxxxxxxxx [id number] 2016 Unknown [id number] 2015 Medicaid [id number] 2015 Unknown [id number] Unknown [id number] Unknown [id number] Unknown [id number] Unknown [id number] Unknown [id number] Unknown [id number] Social History Date Type Detail Facility Start: 07-18-2019 End: 03-04-2025 Tobacco smoking status NHIS Former smoker [facility] Start: 06-05-2004 End: 06-05-2006 History of tobacco use Current smoker [employer] Phone: Start: 06-05-2004 End: 06-05-2006 History of tobacco use Cigarette Smoker [employer] Phone: Start: 07-18-2019 End: 10-21-2022 Cigarettes smoked current (pack per day) - Reported [facility] Start: 07-18-2019 End: 01-27-2025 Alcohol intake Current non-drinker of alcohol (finding) [facility] Phone: Sex Assigned At Not on file [facility] Phone: Start: 12-25-2019 End: 06-19-2024 Tobacco use and exposure Never used [facility] [place] Start: 03-15-2021 End: 01-14-2022 Exposure to SARS-CoV-2 (event) Not sure [facility] [place] Start: 06-13-2019 End: 10-21-2022 History SDOH Alcohol Frequency 1 [facility] Start: 06-13-2019 History SDOH Alcohol Std Drinks 98 [facility] Start: 04-17-2019 End: 10-21-2022 History SDOH Social Connections Phone 5 [facility] Start: 04-27-2020 History SDOH Social Connections Get Together 4 [facility] Start: 09-27-2019 End: 10-21-2022 History SDOH Social Connections Meetings 2 [facility] Start: 04-17-2019 End: 10-21-2022 History SDOH Social Connections Living 3 [facility] Start: 04-27-2020 History SDOH Physical Activity DPW 7 [facility] Start: 04-26-2020 Education 15 [facility] Start: 1985 Sex Assigned At Male [facility] Start: 12-18-2021 End: 05-31-2023 Tobacco smoking status NHIS Unknown if ever smoked [facility] Start: 03-09-2020 None [facility] Start: 04-18-2019 With Family [facility] Start: 06-28-2019 Non-smoker [facility] Start: 08-01-2022 Alcohol Comment 20 years clean - 08/01/2022 [facility] Start: 10-21-2022 History SDOH Alcohol Std Drinks 0 [facility] Start: 10-21-2022 End: 06-19-2024 Social connection and isolation panel [facility] Do you belong to any clubs or organizations such as muslim groups, unions, fraHi-Midia or athletic groups, or school groups? Yes [facility] Are you now , , , , never or living with a partner? [facility] How often to you hav e a drink containing alcohol? Never [facility] Start: 05-06-2012 How many standard drinks containing alcohol do you have on a typical day? Patient does not drink [facility] Do you feel stress - tense, restless, nervous, or anxious, or unable to sleep at night because your mind is troubled all the time - these days [OSQ] To some extent [facility] (I/We) worried caterina er (my/our) food would run out before (I/we) got money to buy more. Never true [facility] In the past 12 month s, was there a time when you were not able to pay the mortgage or rent on time? No [facility] Start: 02-21-2019 Gender identity Identifies as male gender (finding) [facility] Start: 02-21-2019 Sexual orientation Heterosexual (finding) [facility] Do you feel stress - tense, restless, nervous, or anxious, or unable to sleep at night because your mind is troubled all the time - these days [OSQ] Very much [facility] Medical Equipment Procedure Code Equipment Code Equipment Original Text Equipment Identifier Dates Nsd-Lr-D-Kind Im plant - [id number] Start: 01-27-2018 Plate Smartlock Small Bone Hybrid Maxillofacial - [id number] Start: 01-27-2018 Plate Titanium B one 6 Hole Locking 2 Mm Screw Mandible - [id number] Start: 01-27-2018 Screw Smartlock 2mm Titanium 8mm Bone Lock Self Drill Maxillomandibular - [id number] Start: 01-27-2018 Screw 2mm Titani um 6mm Bone Cross Pin Self Tap Nonsterile Mandibular - [id number] Start: 01-27-2018 Screw Titanium 4 mm Bone Self Tapping Cross Pin 2.3mm Maxillofacial - [id number] Start: 01-27-2018 Screw 2mm Titani um 8mm Bone Cross Pin Maxillofacial - [id number] Start: 01-27-2018 [id number], [id number] Start: 2019 End: 06-19-2024 Comment on above: Use as instructed testing 3 times a day 1 Each as directed. TO BE USED DIRECTED. USE ONE NEEDLE FOR EACH DOSE Test blood sugar(s) 3 times daily. Dx: Type 2 DM - Uncontrolled E11.65 Insulin: Yes Goals Date Patient Goal Desired Activity /State Functional Status Date Assessment Result Facility 03-05-2025 Functional status Ambulates [facility] Work Phone: 02-09-2023 Functional status Ambulates;Beds kyle Commode [facility] Work Phone: 09-07-2021 Are you deaf, or do you have serious difficulty hearing No 09/07/2021 1:01 PM Lana Barksdale RN No [facility] 09-07-2021 Are you blind, or do you have serious difficulty seeing, even when wearing glasses No 09/07/2021 1:01 PM Lana Barksdale RN No [facility] 09-07-2021 Do you have serious difficulty walking or climbing stairs No 09/07/2021 1:01 PM EDT Lana Charlton RN No [facility] 09-07-2021 Do you have difficul ty dressing or bathing No 09/07/2021 1:01 PM EDT Lana Charlton RN No [facility] 09-07-2021 Because of a physica l, mental, or emotional condition, do you have difficulty doing errands alone such as visiting a physician's office or shopping No 09/07/2021 1:01 PM EDT Lana Charlton RN No [facility] Mental Status Date Assessment Result Facility 03-05-2025 Cognitive function Voice/Name [facility] Work Phone: 01-21-2025 Cognitive function Voice/Name [facility] Work Phone: 02-09-2023 Cognitive function Voice/Name [facility] Work Phone: 02-08-2023 Cognitive function Sedated [facility] Work Phone: 09-07-2021 Because of a physica l, mental, or emotional condition, do you have serious difficulty concentrating, remembering, or making decisions No 09/07/2021 1:01 PM EDT Lana Charlton RN No [facility] Clinical Notes 01-26-2018 to 03-05-2025 Note Date & Type Note Facility 03-05-2025 Discharge summary [facility] 03-05-2025 Discharge summary [facility] 03-05-2025 Note [facility] Medical Records Department [address] [place] [id number] Discharge Summary 03/05/25 1716 MR#: [id number] Acct: [id number] Name: VICTOR HUGO ASIF Rep #: [id number] : [id number] 39 From: Hoa Haskins MD PCP: Dr. Ranjit Azar DO Status:ADM TERESA Location: [place] [address] Providers Date of Admission: 03/04/25 Date of [...] Dizziness and Chest (more content not included)... [facility] 03-05-2025 Hospital Discharge instruction s Additional Instructions Date of Discharge: 03/05/25 [facility] Work Phone: 03-04-2025 History and physi valencia note Note Date/Time March 04, 2025 8:02pm [facility] Medical Records Department [address] [place] [address] H&P Exam - Hospitalist 03/04/25 1458 MR#: [id number] Acct: [id number] Name: VICTOR HUGO ASIF Rep #:[id number] : 1985 39 From: Giovani ness DO PCP: Dr. Ranjit Azar, DO Status:AD M [facility] Location: [place] [address] HPI - General General Date of Admission: 03/04/25 Date of Service: 03/04/25 Chief Complaint: Chest pain HPI Narrative VICTOR HUGO ASIF, is a 39 M who presented to [facility] ED on 03/04/2025 with chest pain. Medical [...] He denies any other acute concerns currently. [facility]LY [facility], [facility] Medical History Acute gangrenous cholecystitis Acute [...] Neut % (Auto) 60.9, Lymph % (Auto) 29.7,[place] % (Auto) 7.2, Eos % (Auto) 0.7, [...] IMPRESSION: No acute cardiopulmonary process Reading Location: [id number] Assessment & Plan Assessment/Plan (1) Chest pain: PLAN: Plan Patient is a 39-year-old male who presented to [facility] ED on 03/04/2025 with chest pain. 1. [...] 76 minutes. Charges/Coding Visit Charges Inpatient E&M: 74654 Init Hosp L3 03/04/252001 <Electronically signed by Giovani Membreno DO> Cosigner Signature (if applicable): CC: Dr. Giovani Membreno DO; Dr. Ranjit Azar DO~ Signed [facility] Work Phone: 1(554) 728-230409-30-2025 History and physical note [facility] Medical Records Department [address] [place] [address] H&P Exam - Hospitalist 03/04/25 1458 MR#: [id number] Acct: [id number] Name: VICTOR HUGO ASIF Rep #:[id number] : 1985 39 From: Giovani ness DO PCP: Dr. Ranjit Azar DO Status:AD M [facility] HPI - General General Date of Admission: 03/04/25 Date of Service: 03/04/25 Chief Complaint: Chest pain HPI Narrative VICTOR HUGO ASIF, is a 39 M who presented to [facility] ED on 03/04/2025 with chest pain.Medical history [...] He denies any other acute concerns currently. [facility] Medical History Acute gangrenous cholecystitis Acute [...] Neut % (Auto) 60.9, Lymph % (Auto) 29.7,[place] % (Auto) 7.2, Eos % (Auto) 0.7, [...] IMPRESSION: No acute cardiopulmonary process Reading Location: [id number] Assessment & Plan Assessment/Plan (1) Chest pain: PLAN: Plan Patient is a 39-year-old male who presented to [facility] ED on 03/04/2025 with chest pain. 1. [...] 76 minutes. Charges/Coding Visit Charges Inpatient E&M: 41407 Init Hosp L3 03/04/252001 Cosigner Signature (if applicable): CC: Dr. Giovani Membreno, ; Dr. Ranjit Azar DO~ Signed [facility]09-30-2025 Discharge summary Author Timothy Chao [facility] Note Date/Time March 04, 2025 3:02pm [facility] Medical Records Department [address] [place] [address] Emergency Department Summary 03/04/25 MR#: [id number] Acct: [id number] Name: VICTOR HUGO ASIF Rep #:[id number] [...] intact Psych: Cooperative, appropriate mood and affect [facility] Medical History Acute gangrenous cholecystitis Acute [...] % (Auto) 60.9 Lymph % (Auto) 29.7 [place] % (Auto) 7.2 Eos % (Auto) 0.7 [...] IMPRESSION: No acute cardiopulmonary process Reading Location: [facility] Discharge Plan Triage Chief Complaint: Chest Pain ED Provider: Timothy Chao Dx/Rx/DC Orders Prescriptions: No Action lisinopril 10 mg tablet 10 mg PO DAILY Primary Care Provider: Ranjit Azar Referrals: Ranjit Azar DO [Primary Care Provider, Medical] Print Language: Ecuadorean What to do if you have Problems For any increased pain, shortness of breath, bleeding, nausea or vomiting, chestpain, or any unexpected problems, contact your Primary Care Provider. Call [facility] ([phone]) or report to the closest Emergency Room. Call 911 if necessary. 03/04/25 1502 <Electronically signed by Timothy Chao DO> Cosigner Signature (if applicable): CC: Dr. Ranjit Azar DO ~ Signed [facility] Work Phone: 1(345) 574-406809-30-2025 Evaluation note* Diagnosis Onset Date Resolution Status Admit Date Chest pain inactive February 2:58pm [facility] Work Phone: 1(143) 724-769809-30-2025 Discharge summary [facility] Medical Records Department [address] [place] [address] Emergency Department Summary 03/04/25 MR#: [id number] Acct: [id number] Name: VICTOR HUGO ASIF Rep #:[id number] [...] intact Psych: Cooperative, appropriate mood and affect [facility] Medical History Acute gangrenous cholecystitis Acute [...] % (Auto) 60.9 Lymph % (Auto) 29.7 [place] % (Auto) 7.2 Eos % (Auto) 0.7 [...] IMPRESSION: No acute cardiopulmonary process Reading Location: [facility] Discharge Plan Triage Chief Complaint: Chest Pain ED Provider: Timothy Chao Dx/Rx/DC Orders Prescriptions: No Action lisinopril 10 mg tablet 10 mg PO DAILY Primary Care Provider: Ranjit Azar Referrals: Ranjit Azar DO [Primary Care Provider, Medical] Print Language: Ecuadorean What to do if you have Problems For any increased pain, shortness of breath, bleeding, nausea or vomiting, chestpain, or any unexpected problems, contact your Primary Care Provider. Call [facility] ([phone]) or report tothe closest Emergency Room. Call 911 if necessary. 03/04/25 1502 Cosigner Signature (if applicable): CC: Dr. Ranjit Azar DO ~ Signed [facility]09-30-2025 Radiology Diagnostic study note [facility] Imaging Services [address] [place] [address] [id number] Chest PA and Lateral MR#: [id number] Acct: [id number] Name: VICTOR HUGO ASIF Rep #: [id number] : 1985 M 39 From: Edw nikita Hawk MD PCP: Dr. Ranjit Azar DO Status: RE G ER Study:Chest PA and Lateral Date of Exam: 03/04/25 Exam# [id number] Ordering Dr: Timothy Velez DO PROCEDURE: CHEST PA AND LATERAL 03/04/2025 REASON FOR EXAM: CHEST PAIN TECHNIQUE: Procedure Code: RADCXR Modality: DX Procedure: CHEST PA AND LATERAL COMPARISON: March 01, 2024 FINDINGS: Hardware: None Heart: Normal Mediastinum: Normal Lungs: Clear Bones: The bones are unremarkable. RAD/Chest PA and Lateral IMPRESSION: No acute cardiopulmonary process Reading Location: [id number] CC: Dr. Timothy Chao, DO; Dr. Ranjit Azar, DO ~ Wheel Loader Operator: Signed [facility]09-03-2025 Telephone encounter Note* Telephone Encounter - Lary [...] do not see that thisapplies to you. [facility]09-03-2025 Miscellaneous Notes* Telephone Encounter - Lary Mora LPN - 02/05/2025 9:30 AM EDT This was denied noting pt is not on multiple insulins daily. Dear Lance uPlido: Recently, you or your doctor asked us [...] sensor Theresa Alvarez MA [facility] Telephone encounter Note * Telephone Encounter - Theresa Alvarez MA - 01/28/2025 11:48 AM EDT PA submitted for freestlye lico sensor Theresa Alvarez MA [facility]08-25-2025 Instructions* Patient Instructions* Lance Pulido APRN.CNP - 01/27/2025 11:02 AM EDT Please picker operator your trulicity, vitamin D3 and sensors for your lico at [facility] Your A1C is 12.7 this is out of control diabetes level and you need to take something to lower this. If the trulicity or sensors aren't affordable reach out to me Follow up as scheduled documented in [facility]08-[facility]25 History of Present illness Narrative* Lance Pulido APRN.CNP - 01/27/2025 10:20 AM EDT This is a 39 year old male who presents today with: Victor Hugo Asif is a 39-year-old male with a history of type 2 diabetes mellitus, HTN, and migraines,presenting for follow-up. HISTORY OF PRESENT ILLNESS: Type 2 Diabetes Mellitus: - Diagnosed in 9024-3589 - Previously on Trulicity and Tresiba; discontinued [...] horns. - no recent seizures reported, follows [facility] neurology Dr Owens last seen 12/20 Vitamin D Deficiency: - Previously on vitamin D3; discontinued. - Last level was 9.1 ng/mL, 7 months ago. Vision: - Wears glasses; last eye exam within the past year at [facility] per patient - Diagnosed with something he can't recall that they said surgery would be indicated possibly - Interested in LASIK surgery. 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 - Cooks meals from scratch, avoids cooking oil. 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 Lumbago MRSA [...] long-term current use of insulin ([facility]) -ICD9: 250.60, 357.2, V58.67, ICD10: E11.40, Z79.4 [...] that if it's not affordable to send Wobeek message to me soumya we can develop [...] which included preparing to see the patient, emot-rx-smnq patient care, completing clinical documentation, obtaining and/or reviewing separately obtained history, performing a medically appropriate examination, counseling and educating the pat ient/family/caregiver, and ordering medications, tests, or procedures At least 50% of the time spent in room with patient listening, educating, and developing a plan forhis diabetes regimen and compliance Recording using Allocab software for draft documentation of the visit was discussed with the patient/authorized representative personal service; all questions welcomed and answered. 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 Javid Winter [facility] Note Date/Time January 21, 2025 1: 34pm [facility] Medical Records Department [address] [place] [address] Emergency Department Summary 01/21/25 MR#: [id number] Acct: [id number] Name: VICTOR HUGO ASIF Rep #:[id number] [...] recent nausea or vomiting, no other symptoms. [facility] Medical History Acute gangrenous cholecystitis Acute [...] % (Auto) 62.8 Lymph % (Auto) 28.4 [place] % (Auto) 7.4 Eos % (Auto) 0.3 [...] unchanged. No acute intracranial pathology. Reading Location: [facility] Discharge Plan Triage Chief Complaint: Numb/Ting ED [...] with your neurologist as well. Print Language: Ecuadorean Disposition Disposition: Home, Self Care What to do if you have Problems For any increased pain, shortness of breath, bleeding, nausea or vomiting, chestpain, or any unexpected problems, contact your Primary Care Provider. Call [facility] ([phone]) or report to the closest Emergency Room. Call 911 if necessary. 01/21/25 1334 <Electronically signed by Javid Winter MD> Cosigner Signature (if applicable): CC: Dr. Ranjit Azar, DO ~ Signed [facility] Work Phone: Discharge summary Author Hoa [facility] Note Date/Time March 05, 2025 5: 16pm [facility] Medical Records Department [address] [place] [address] Instructions for Home/Discharge Instructions 03/05/251712 MR#: [id number] Acct: [id number] Name: VICTOR HUGO ASIF Rep #:[id number] [...] DO; Dr. Ranjit Azar DO ~ Signed [facility] Work Phone: Discharge summary [facility] Note Date/Time March 05, 2025 5: 24pm [facility] Medical Records Department [address] [place] [address] Discharge Summary 03/05/251715 MR#: [id number] Acct: [id number] Name: VICTOR HUGO ASIF Rep #:[id number] : 1985 39 From: Hoa Haskins MD PCP: Dr. Ranjit Azar DO Status:AD M TERESA Location: [place] [id number] Providers Date of Admission: 03/04/25 Date [...] Self Care Charges/Coding Visit Charges Inpatient E&M: 54550 Disch Hosp >30min 03/05/25 1724 <Electronically signed by Hoa Haskins MD> Cosigner Signature (if applicable): CC: Dr. Ranjit Azar DO; Dr. Hoa Haskins MD~ Signed [facility] Work Phone: Evaluation note* Diagnosis Pre-op evaluation- [...] [facility] foot [facility] Diagnosis Type 2 diabetes mellitus without complication, with long-term current use of insulin (HCC) Ankle arthritis Unspecified arthropathy, ankle and foot [facility] Diagnosis Type 2 diabetes mellitus without complication, with long-term current use of insulin (HCC) documented [facility] this encounter [facility]* Diagnosis Type 2 diabetes mellitus with diabetic neuropathy, with long-term current use of insulin (HCC)- Primary 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, essential Unspecified essential hypertension Obesity, Class II, BMI 35-39.9 Obesity, unspecified Ankle arthritis Unspecified arthropathy, ankle and foot [facility] Diagnosis Arthritis of foot- Primary Unspecified arthropathy, ankle and foot [facility]* Diagnosis Type 2 diabetes mellitus without complication, with long-term current use of insulin (HCC) Seizure disorder (HCC) Unspecified epilepsy without mention of intractable epilepsy Other migraine without status migrainosus, not intractable Chronic bilateral thoracic back pain Spasm of thoracic back muscle Type 2 diabetes mellitus with diabetic neuropathy, with long-term current use of insulin (HCC) [facility]* Diagnosis Seizure disorder (HCC) Unspecified epilepsy without mention of intractable epilepsy [facility]* Diagnosis Ankle arthritis- Primary Unspecified arthropathy, ankle and foot Arthritis of subtalar joint Weakness of left leg Other musculoskeletal symptoms referable to limbs [facility]* Diagnosis Polyarthralgia- Primary Pain in joint, [...] history of fall [facility] Diagnosis Arthritis of foot Unspecified arthropathy, ankle and foot Polyarthralgia Pain in joint, multiple sites Chronic pain of both ankles Limited joint range of motion (ROM) [facility]* Diagnosis APPOINTMENT CANCELLED documented in this encounter [facility] noteNo assessment information availableWWVUMedicine [facility] Work Phone: Evaluation note* Diagnosis Syncope, unspecified syncope type- Primary Type 2 diabetes mellitus without complication, with long-term current use of insulin (HCC) Seizure disorder (HCC) Unspecified epilepsy without mention of intractable epilepsy Obesity, Class II, BMI 35-39.9 Obesity, unspecified Dizziness Dizziness and giddiness [facility] Diagnosis Fall, subsequent encounter- Primary Scratches Other and unspecified superficial injury of other, multiple, and unspecified sites, without mention of infection [facility] Diagnosis Severe persistent asthma without complication [facility]* Diagnosis Fibromyalgia Mylagia and myositis, unspecified Seizure disorder (HCC) Unspecified epilepsy without mention of intractable epilepsy [facility]* Diagnosis Seizure disorder (HCC)- Primary Unspecified epilepsy without mention of intractable epilepsy [facility]* Diagnosis Ankle arthritis- Primary Unspecified arthropathy, ankle and foot [facility]* Diagnosis Type 2 diabetes mellitus with diabetic neuropathy, with long-term current use of insulin (HCC) [facility] Diagnosis Type 2 diabetes mellitus without complication, with long-term current use of insulin (HCC) [facility]* Diagnosis Fibromyalgia Mylagia and myositis, unspecified Seizure disorder (HCC) Unspecified epilepsy without mention of intractable epilepsy [facility] Diagnosis Chronic bilateral thoracic back pain Spasm of thoracic back muscle Other migraine without status migrainosus, not intractable [facility]* Diagnosis Fibromyalgia Mylagia and myositis, unspecified Seizure disorder (HCC) Unspecified epilepsy without mention of intractable epilepsy documented in this encounter [facility]* Diagnosis Ankle arthritis- Primary Unspecified arthropathy, ankle and foot Arthritis of subtalar joint Bilateral foot-drop Other acquired deformity of ankle and foot documented in this encounter [facility]* Diagnosis Chronic bilateral thoracic back pain Spasm of muscle of lower back documented in this encounter [facility]* Diagnosis Type 2 diabetes mellitus without complication, with long-term current use of insulin ([facility]) documented in this encounter [facility]* Diagnosis Mixed hyperlipidemia- Primary documented in this encounter [facility]* Diagnosis Chronic bilateral thoracic back pain Spasm of thoracic back muscle documented in this [facility]* Diagnosis Nonintractable epilepsy without status epilepticus, unspecified epilepsy type (HCC)- Primary Vitamin D deficiency Unspecified vitamin D deficiency Psychophysiologic insomnia Persistent disorder of initiating or maintaining sleep documented in this encounter [facility]* Diagnosis Nonintractable epilepsy without status epilepticus, unspecified epilepsy type (HCC) documented in this encounter [facility]* Diagnosis Chronic bilateral thoracic back pain Spasm of muscle of lower back documented in this encounter [facility]* Diagnosis Chronic bilateral thoracic back pain Spasm of muscle of lower back documented [facility]* Diagnosis Type 2 diabetes mellitus with diabetic neuropathy, with long-term current use of insulin (HCC)- Primary documented in this encounter [facility]* Diagnosis Fibromyalgia Mylagia and myositis, unspecified Seizure disorder (HCC) Unspecified epilepsy without mention of intractable epilepsy documented in this encounter [facility] [facility] Diagnosis Type 2 diabetes mellitus with diabetic neuropathy, with long-term current use of insulin (HCC) [facility] Diagnosis Chronic bilateral thoracic back pain Spasm of thoracic back muscle Type 2 diabetes mellitus with diabetic neuropathy, with long-term current use of insulin (HCC) documented in this encounter [facility] Diagnosis Type 2 diabetes mellitus with diabetic neuropathy, with long-term current use of insulin (HCC)- Primary [facility] this [facility] Diagnosis Type 2 diabetes mellitus with diabetic neuropathy, with long-term current use of insulin ([facility]) documented [facility] this encounter [facility] Diagnosis Ankle arthritis Unspecified arthropathy, ankle and foot Arthritis of subtalar joint documented [facility] this encounter [facility] Diagnosis Seizure disorder (HCC)- Primary Unspecified epilepsy without mention of intractable epilepsy [facility] Diagnosis Lymphadenopathy Enlargement of lymph nodes [...] serious comorbidity present [facility] this [facility] Diagnosis Pre-op evaluation- Primary Preoperative examination, [...] and behavioral disorders documented in this encounter [facility] Diagnosis Pre-op evaluation- Primary Preoperative examination, [...] insulin (HCC)- Primary [facility] Diagnosis Pre-op evaluation- Primary Preoperative [...] vitamin D deficiency [facility]* Diagnosis Pre-op evaluation- Primary Preoperative [...] Primary Other convulsions [facility]* Diagnosis Pre-op evaluation- Primary Preoperative [...] Unspecified essential hypertension [facility]* Diagnosis Pre-op evaluation- Primary Preoperative [...] 30-34.9 Obesity, unspecified documented in [facility]* Diagnosis Onset Date Resolution Status Admit Date Chest pain inactive February 2:58pm [facility] Work Phone: History and physical note Author [facility] Date/Time March 04, 2025 8:02pm [facility] Medical Records Department [address] [place] [address] H&P Exam - Hospitalist 03/04/25 1458 MR#: [id number] Acct: [id number] Name: VICTOR HUGO ASIF Rep #:[id number] : 1985 39 From: Giovani ness DO PCP: Dr. Ranjit Azar DO Status:AD [facility] Location: [place] [address] HPI - General General Date of Admission: 03/04/25 Date of Service: 03/04/25 Chief Complaint: Chest pain HPI Narrative VICTOR HUGO ASIF, is a 39 M who presented to [facility] ED on 03/04/2025 with chest pain. Medical [...] He denies any other acute concerns currently. [facility]LY [facility], [facility] Medical History Acute gangrenous cholecystitis Acute [...] Neut % (Auto) 60.9, Lymph % (Auto) 29.7,[place] % (Auto) 7.2, Eos % (Auto) 0.7, [...] IMPRESSION: No acute cardiopulmonary process Reading Location: [id number] Assessment & Plan Assessment/Plan (1) Chest pain: PLAN: Plan Patient is a 39-year-old male who presented to [facility] ED on 03/04/2025 with chest pain. 1. [...] 76 minutes. Charges/Coding Visit Charges Inpatient E&M: 70770 Init Hosp L3 03/04/252001 <Electronically signed by Giovani Membreno DO> Cosigner Signature (if applicable): CC: Dr. Giovani Membreno, DO; Dr. Ranjit Azar, DO~ Signed [facility] Work Phone: Hospital Discharge instructions Additional Instructions You were given an antibiotic shot here and a prescription for doxycycline to take at home for the next week. I also prescribed naproxen for pain. Please follow-up with your primary care doctor.[facility] Work Phone: [facility] Work Phone: Hospital Discharge instructions Additional Instructions Continue to increase fluids at home. Increase water or Gatorade 0 Follow-up with PCP as well. [facility] restrictions [facility] Work Phone: Hospital Discharge instructionsAdditional Instructions Follow-up with your primary care provider. You had elevated sugars today and may need to be started on medication again if your glucose/sugars are not controlled with diet and exercise. Return to the emergency department with new or worsening symptoms. Follow-up with your neurologist as well.[facility] Work Phone: Reason for referral (narrative)* Outpatient Procedure (Routine) - Additional Clinical Info Needed Specialty Diagnoses / Procedures Referred By Rolf t Referred To Contact [facility] Diagnoses Syncope, unspecified syncope type Procedures ECHO ECHO TTHRC R-T 2D W/WOM-MODE COMPL SPEC&COLR D Nicole Roberts APRN.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 [address] [place] [address] [facility] [place] [address] [place] [address] Referral ID Status Reason Start Date Expiration Date Visits Requested Visits Authorized [id number] Additional Clinical Info Needed Auto-Genera paul Referral Clearance Not Met - Admin/Chair man/Directo r Advise to Postpone/Re schedule or Not Proceed 12/23/2021 12/23/2022 1 1 * Outpatient Procedure (Routine) - Closed Specialty Diagnoses / Procedures Referred By Rolf heard Referred To Contact [facility] Diagnoses Syncope, unspecified syncope type Procedures ECG COMPLETE ECG ROUTINE ECG W/LEAST 12 LDS W/I&R Nicole Roberts APRN.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 [address] [place] [address] [facility] [address] [place] [address] Referral ID Status Reason Start Date Expiration Date V isits Requested Visits Authorized [id number] Closed Auto-Generate d Referral 12/23/2021 12/23/2022 1 1 [facility] for referral (narrative)* Diagnostic Procedure Only (Routine) - Closed Specialty Diagnoses / Procedures Referred By Contac t Referred To Contact XR IMAGING Diagnoses Ankle arthritis Arthritis of subtalar joint Procedures XR ANKLE GENERAL 3V AP/LAT/OBL BILATERAL RADEX ANKLE COMPLETE MINIMUM 3 V[address]WS [address] [place] [address] Xr Imaging Referral ID Status Reason Start Date Expiration Date V isits Requested Visits Authorized [id number] Closed Auto-Generate d Referral 08/01/2022 08/31/2023 1 1 [facility] for referral (narrative)* Diagnostic Procedure Only (Routine) - Closed Specialty Diagnoses / Procedures Referred By Contac t Referred To Contact XR IMAGING Diagnoses Ankle arthritis Arthritis of subtalar joint Procedures XR ANKLE GENERAL 3V AP/LAT/OBL BILATERAL RADEX ANKLE COMPLETE MINIMUM 3 [address] [place] [place] [address] [place] [address] Referral ID Status Reason Start Date Expiration Date V isits Requested Visits Authorized [id number] Closed Auto-Generate d Referral 08/01/2022 08/31/2023 1 1 [facility] for referral (narrative)No reason for referral information availableWWVUMed[facility] Work Phone: [facility] for visit Narrative* Diagnostic Procedure Only (Routine) - Closed Specialty Diagnoses / Procedures Referred By Contac t Referred To Contact XR IMAGING Diagnoses Ankle arthritis Arthritis of subtalar joint Procedures XR ANKLE GENERAL 3V AP/LAT/OBL BILATERAL RADEX ANKLE COMPLETE MINIMUM 3 [address] [place] [address] [place] [address] Referral ID Status Reason Start Date Expiration Date V isits Requested Visits Authorized [id number] Closed Auto-Generate d Referral 08/01/2022 08/31/2023 1 1 [facility] Summary Purpose Family History No Family [...] FoundDocuments on File Type Date Recorded 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 anation Advance Directives and Living Will Power of Carbon Capture Power Plant Engineer Latest Code Status on File Code Status Date Activated Date Inactivated Comments Full Code 04/02/2018 5:12 AM 04/03/2018 4:13 PM Full Code 03/29/2018 7:21 PM 04/02/2018 1:26 AM Full Code 03/29/2018 12:46 PM 03/29/2018 7:16 PM Documents on File Type Date Recorded 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 Advance Directives and Living Will Power of Carbon Capture Power Plant Engineer Latest Code Status on File Code Status [...] Documents on File Type Date Recorded 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 anation Advance Directive(s) Advance Directive(s) 02/27/2018 12:14 PM Advance Directive(s) 02/24/2018 4:03 PM Advance Directive(s) 01/26/2018 4:26 AM Documents on File Type Date Recorded 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 anation Advance Directive(s) Advance Directive(s) 09/04/2021 11:43 AM Advance Directive(s) 02/27/2018 12:14 PM Advance Directive(s) 02/24/2018 4:03 PM Advance Directive(s) 01/26/2018 4:26 AM Documents on File Type Date Recorded 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 anation Advance Directive(s) Advance Directive(s) 09/20/2021 9:02 AM Advance Directive(s) 09/04/2021 11:43 AM Advance Directive(s) 02/27/2018 12:14 PM Advance Directive(s) 02/24/2018 4:03 PM Advance Directive(s) 01/26/2018 4:26 AM Documents on File Type Date Recorded 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 anation Advance Directive(s) Advance Directive(s) 09/20/2021 9:02 AM Advance Directive(s) 09/04/2021 11:43 AM Advance Directive(s) 02/27/2018 12:14 PM Advance Directive(s) 02/24/2018 4:03 PM Advance Directive(s) 01/26/2018 4:26 AM Advance Directive Response Recorded Date/ Time Advance Directives No April 3:19pm Living Will No December 18, 2021 12:03pm Power of Carbon Capture Power Plant Engineer No December 18 12:03pm Advance Directive Response Recorded Date/ Time Advance Directives No April 3:19pm Living Will No January 08, 2022 9:47pm Power of Carbon Capture Power Plant Engineer No January 08 9:47pm Documents on File Type Date Recorded 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 anation Advance Directive(s) 02/27/2018 12:14 PM Documents on File Type Date Recorded 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 anation Advance Directive(s) 02/27/2018 12:14 PM Advance Directive Response Recorded Date/ Time Advance Directives No April 3:19pm Living Will No August 16, 2022 9:55am Power of Carbon Capture Power Plant Engineer No August 16 9:55am Advance Directive Response Recorded Date/ Time Advance Directives No April 3:19pm Living Will No February 08, 2 023 12:22pm Power of Carbon Capture Power Plant Engineer No February 08, 2023 12:22pm Advance Directive Response Recorded Date/ Time Advance Directives No April 3:19pm Living Will No February 08, 2 023 3:31pm Power of Carbon Capture Power Plant Engineer No February 08, 2023 3:31pm Advance Directive Response Recorded Date/ Time Advance Directives No April 2:19pm Living Will No May 31 023 11:54am Power of Carbon Capture Power Plant Engineer No May 31, 2023 11:54am Advance Directive Response Recorded Date/ Time Do you have a Healthcare Power of Carbon Capture Power Plant Engineer? No January 21, 2025 12:03pm Advance Directives No April 3:19pm Advance Directive Response Recorded Date/ Time Do you have a Healthcare Power of Carbon Capture Power Plant Engineer? No January 21, 2025 12:03pm Do you have a Healthcare Power of Carbon Capture Power Plant Engineer? No March 04, 2025 5:17pm Advance Directives No April 3:19pm Discharge Instructions * Instructions* Theresa Bro, RN - 07/18/2019 Shower with an antibacterial soap before coming to the hospital You may use the free pierce and shave press operator parking at the main entrance on [address] [place] [address], or the free parking in the [facility] parking deck Please bring your [facility] Surgical Information folder on the day [...] the morning of surgery. Please bring your [facility] Information folder on the day of [...] encounter History of Present Illness * Lobo Jean-Baptiste - 07/18/2019 3:30 PM EST Labs obtained on first attempt with 22 gauge needle at R AC site, patient tolerated well, site benign. documented in this encounter* Rhona Hernández DTR - 01/01/2020 2:34 PM EDT Nutrition rescreen completed. Chart reviewed. Patient to be monitored and followed by the diet senior laboratory technician. Dietitian available upon request. * Wolfgang Cheng Ry, DO - 01/01/2020 8:38 AM EDT [facility] - Infectious Diseases Attending Progress Note [...] teeth extraction 3. S/P extensive mandibular surgery ([facility]) 4. H/O facial cellulitis 5. Multiple medical issues Plan: 1. Plan to DC on oral amoxicillin-clavulanate for 4 weeks 2. Follow-up with Plastics Discussed with patient and TCC Pager: [phone] * Angelica Medina MD - 12/31/2019 7:36 [...] PGY-8 Plastic & Reconstructive Surgery Fellow Pager #[phone] documented in this encounter Reason for Referral Status Reason Specialty Diagnoses / Procedures Re ferred By Contact Referred To Contact Closed Cardiology Diagnoses Chest pain, unspecified type PILAR (obstructive sleep apnea) Non-adherence to medical treatment Encounter for pre-operative cardiovascular clearance Procedures Echo 2D Doppler Color Preethi Brush MD [address] [place] [address] [address] [place] [address] Specialty Diagnoses / Procedures Referred By Contskylar t Referred To Contact Rheumatology Diagnoses Arthritis of foot Procedures CONSULT TO RHEUM/IMMUN DISEASE OFFICE/OUTPATIENT [facility] 60-74 MINUTES Ray Yanez [address] [place] [address] Referral ID Status Reason Start Date Expiration Date Visits Requested Visits Authorized [id number] Authorized PCP Requested Referral 09/30/2021 09/30/2022 1 1 Specialty Diagnoses / Procedures Referred By Rolf t Referred To Contact 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 [address] [place] [address] Referral ID Status Reason Start Date Expiration Date V isits Requested Visits Authorized [id number] Pending Review 1 1 Referral ID Status Reason Start Date Expiration Date V isits Requested Visits Authorized [id number] Pending Review 1 1 Specialty Diagnoses / Procedures Referred By Divineac t Referred To Contact Diagnoses Type 2 diabetes mellitus with diabetic neuropathy, with long-term current use of insulin ([facility]) 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 [address] [place] [address] Referral ID Status Reason Start Date Expiration Date Visits Re quested Visits Authorized [id number] Closed 1 1 Specialty Diagnoses / Procedures Referred By Contac t Referred To Contact Nicole Roberts APRN.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 [address] [place] [address] Referral ID Status Reason Start Date Expiration Date Visits Re quested Visits Authorized [id number] Closed 1 1 Specialty Diagnoses / Procedures Referred By Contac t Referred To Contact [facility] Diagnoses Arthritis of foot Polyarthralgia Chronic pain of both ankles Limited joint range of motion (ROM) Procedures CONSULT TO PHYSICAL THERAPY PHYSICAL THERAPY EVALUATION HIGH COMPLEX 45 MINS Lenora Caldwell PA-C [address] [place] [address] [facility] [place] [address] [place] [address] Referral ID Status Reason Start Date Expiration Date Visits Requested Visits Authorized [id number] Authorized Auto-Generat ed Referral 10/26/2021 01/26/2022 1 1 Specialty Diagnoses / Procedures Referred By Contac t Referred To Contact [facility] Diagnoses Arthritis of foot Polyarthralgia Chronic pain of both ankles Limited joint range of motion (ROM) Procedures PT REHAB FOLLOW UP ORDER THERAPEUTIC EXERCISES RE, EA 15 MIN. Pt [facility] [address] [place] [address] [facility] [place] [address] [place] [address] Referral ID Status Reason Start Date Expiration Date Visits Requested Visits Authorized [id number] Pending Review PCP Requested Referral Auto-Generate d Referral 11/08/2021 02/06/2022 1 1 Referral ID Status Reason Start Date Expiration Date Visits Re quested Visits Authorized [id number] Closed 1 1 Specialty Diagnoses / Procedures Referred By Divineskylar t Referred To Contact MR IMAGING Diagnoses Seizure disorder (HCC) Procedures MRI BRAIN WO IVCON MRI BRAIN BRAIN STEM W/O CONTRAST MATERIAL Leanna Owens MD [address] [facility] [place] [address] Mr Imaging Referral ID Status Reason Start Date Expiration Date Visits Requested Visits Authorized [id number] Pending Review Auto-Generat ed Referral 02/14/2022 03/16/2023 1 1 Specialty Diagnoses / Procedures Referred By Divineac t Referred To Contact Ranjit Azar DO [address] [place] [address] Referral ID Status Reason Start Date Expiration Date Visits Re quested Visits Authorized [id number] Closed 1 1 Referral ID Status Reason Start Date Expiration Date Visits Re quested Visits Authorized [id number] Closed 1 1 Specialty Diagnoses / Procedures Referred By Divineac t Referred To Contact MR IMAGING Diagnoses Nonintractable epilepsy without status epilepticus, unspecified epilepsy type (HCC) Procedures MRI BRAIN WO IVCON MRI BRAIN BRAIN STEM W/O CONTRAST MATERIAL Leanna Owens MD [address] [place] [address] Mr Imaging Referral ID Status Reason Start Date Expiration Date Visits Requested Visits Authorized [id number] Additional Clinical Info Needed Auto-Generat ed Referral 01/06/2023 02/05/2024 1 1 Specialty Diagnoses / Procedures Referred By Rolf heard Referred To Contact MR IMAGING Diagnoses Nonintractable epilepsy without status epilepticus, unspecified epilepsy type (HCC) Procedures MRI BRAIN WO IVCON MRI BRAIN BRAIN STEM W/O CONTRAST MATERIAL Leanna Owens MD [address] [place] [address] Mr Imaging [place] [address] Referral ID Status Reason Start Date Expiration Date V isits Requested Visits Authorized [id number] Closed Auto-Generate d Referral 01/09/2023 03/10/2023 1 1 Referral ID Status Reason Start Date Expiration Date Visits Re quested Visits Authorized [id number] Closed 1 1 Referral ID Status Reason Start Date Expiration Date Visits Re quested Visits Authorized [id number] Closed 1 1 Specialty Diagnoses / Procedures Referred By Rolf heard Referred To Contact Diagnoses Type 2 diabetes mellitus with diabetic neuropathy, with long-term current use of insulin (HCC) Ranjit Azar, DO [address] [place] [address] Referral ID Status Reason Start Date Expiration Date Visits Re quested Visits Authorized [id number] Closed 1 1 Referral ID Status Reason Start Date Expiration Date Visits Re quested Visits Authorized [id number] Closed 1 1 Specialty Diagnoses / Procedures [...] INDIV EACH [address] Ranjit Azar, DO [address] [place] [address] Referral ID Status Reason Start Date Expiration Date Visits Requested Visits Authorized [id number] Authorized PCP Requested Referral 3 04/02/2024 1 1 Specialty Diagnoses / Procedures Referred By Rolf t Referred To Contact Diagnoses Type 2 diabetes mellitus with diabetic neuropathy, with long-term current use of insulin (HCC) Type 2 diabetes mellitus without complication, with long-term current use of insulin (HCC) 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 [address] [place] [address] Referral ID Status Reason Start Date Expiration Date V isits Requested Visits Authorized [id number] Authorized 06/19/2024 06/19/2025 1 1 Specialty Diagnoses / Procedures Referred By Contac t Referred To Contact [facility] Diagnoses Seizure disorder ([facility]) Procedures CONSULT TO NEUROLOGY OFFICE/OUTPATIENT [facility] 60 MINUTES 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 [address] [place] [address] [facility] [place] [address] [place] [address] Referral ID Status Reason Start Date Expiration Date Visits Requested Visits Authorized [id number] Pending Review OON/Self Pay Override 06/19/2024 06/19/2025 1 1 Specialty Diagnoses / Procedures Referred By Contac t Referred To Contact Diagnoses Other migraine without status migrainosus, not intractable 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 [address] [place] [address] Referral ID Status Reason Start Date Expiration Date Visits Re quested Visits Authorized [id number] Closed 1 1 Referral ID Status Reason Start Date Expiration Date V isits Requested Visits Authorized [id number] Authorized 06/19/2024 06/19/2025 1 1 Assessments Diagnosis Chest pain, unspecified type PILAR (obstructive sleep apnea) Obstructive sleep apnea (adult) (pediatric) Non-adherence to medical treatment Encounter for pre-operative cardiovascular clearance Pre-operative cardiovascular examination Diagnosis Osteomyelitis of mandible Osteomyelitis (HCC) Unspecified osteomyelitis, site unspecified Acute osteomyelitis of mandible Acute osteomyelitis, other specified site Hospital Course Note Physician Discharge Summary Patient ID: Victor Hugo Asif [id number] y.o. 1985 Admit date: 12/30/2019 Discharge date and time: 01/01/2020 Admitting Physician: aGma Ludwig MD Discharge Physician: Oziel Admission Diagnoses: [...] seizure Elevated serum creatinine Generalized tonic-clonic seizure Lyons coma scale score 3-8, at arrival to emergency department Sinus tachycardia seen on monitoring manager HTN (hypertension) Seizure Chief Complaint ABSCESS Seizure Seizure Reason for Visit Breakthrough seizure Elevated serum creatinine Generalized tonic-clonic seizure Joya coma scale score 3-8, at arrival to emergency department Sinus tachycardia seen on monitoring manager HTN (hypertension) Chief Complaint Seizure Seizure lower extrem Reason for Visit Generalized tonic-cl onic seizure Lyons coma scale score 3-8, at arrival to emergency department HTN (hypertension) Breakthrough seizure Elevated serum creatinine Sinus tachycardia seen on monitoring manager Chief Complaint Admit Date NEURO January 21, [...] section and content) DATE CREATED AUTHOR 03/28/2018 [facility] DATE CREATED AUTHOR AUTHOR'S ORGANIZ ATION 03/28/2018 [facility] DATE CREATED AUTHOR AUTHOR'S ORGANIZ ATION 08/08/2019 [facility] DATE CREATED AUTHOR AUTHOR'S ORGANIZ ATION 02/19/2020 [facility] DATE CREATED AUTHOR AUTHOR'S ORGANIZ ATION 09/23/2021 [facility] DATE CREATED AUTHOR AUTHOR'S ORGANIZ ATION 03/14/2025 [facility] DATE CREATED AUTHOR AUTHOR'S ORGANIZ ATION 03/22/2025 [facility] Source Comments (unrecognize d section and content) In the event this informatio n is protected by the Federal Confidentiality of Alcohol and Drug Abuse Patient Records regulations: The Federal rules restrict any use of the information to criminally investigate or prosecute any alcohol or drug abuse patient.[facility] the event this information is protected by the Federal Confidentiality of Alcohol and Drug Abuse Patient Records regulations: The Federal rules restrict any use of the information to criminally investigate or prosecute any alcohol or drug abuse patient.[facility] the event this information is protected by the Federal Confidentiality of Alcohol and Drug Abuse Patient Records regulations: The Federal rules restrict any use of the information to criminally investigate or prosecute any alcohol or drug abuse patient.[facility] the event this information is protected by the Federal Confidentiality of Alcohol and Drug Abuse Patient Records regulations: The Federal rules restrict any use of the information to criminally investigate or prosecute any alcohol or drug abuse patient.[facility] the event this information is protected by the Federal Confidentiality of Alcohol and Drug Abuse Patient Records regulations: The Federal rules restrict any use of the information to criminally investigate or prosecute any alcohol or drug abuse patient.[facility] the event this information is protected by the Federal Confidentiality of Alcohol and Drug Abuse Patient Records regulations: The Federal rules restrict any use of the information to criminally investigate or prosecute any alcohol or drug abuse patient.[facility] HospitalIn the event this information is protected by the Federal Confidentiality of Alcohol and Drug Abuse Patient Records regulations: The Federal rules restrict any use of the information to criminally investigate or prosecute any alcohol or drug abuse patient.[facility] HospitalIn the event this information is protected by the Federal Confidentiality of Alcohol and Drug Abuse Patient Records regulations: The Federal rules restrict any use of the information to criminally investigate or prosecute any alcohol or drug abuse patient.[facility] HospitalIn the event this information is protected by the Federal Confidentiality of Alcohol and Drug Abuse Patient Records regulations: The Federal rules restrict any use of the information to criminally investigate or prosecute any alcohol or drug abuse patient.[facility] HospitalIn the event this information is protected by the Federal Confidentiality of Alcohol and Drug Abuse Patient Records regulations: The Federal rules restrict any use of the information to criminally investigate or prosecute any alcohol or drug abuse patient.[facility] HospitalIn the event this information is protected by the Federal Confidentiality of Alcohol and Drug Abuse Patient Records regulations: The Federal rules restrict any use of the information to criminally investigate or prosecute any alcohol or drug abuse patient.[facility] HospitalIn the event this information is protected by the Federal Confidentiality of Alcohol and Drug Abuse Patient Records regulations: The Federal rules restrict any use of the information to criminally investigate or prosecute any alcohol or drug abuse patient.[facility] HospitalIn the event this information is protected by the Federal Confidentiality of Alcohol and Drug Abuse Patient Records regulations: The Federal rules restrict any use of the information to criminally investigate or prosecute any alcohol or drug abuse patient.[facility] HospitalIn the event this information is protected by the Federal Confidentiality of Alcohol and Drug Abuse Patient Records regulations: The Federal rules restrict any use of the information to criminally investigate or prosecute any alcohol or drug abuse patient.[facility] HospitalIn the event this information is protected by the Federal Confidentiality of Alcohol and Drug Abuse Patient Records regulations: The Federal rules restrict any use of the information to criminally investigate or prosecute any alcohol or drug abuse patient.[facility] HospitalIn the event this information is protected by the Federal Confidentiality of Alcohol and Drug Abuse Patient Records regulations: The Federal rules restrict any use of the information to criminally investigate or prosecute any alcohol or drug abuse patient.[facility] HospitalIn the event this information is protected by the Federal Confidentiality of Alcohol and Drug Abuse Patient Records regulations: The Federal rules restrict any use of the information to criminally investigate or prosecute any alcohol or drug abuse patient.[facility] HospitalIn the event this information is protected by the Federal Confidentiality of Alcohol and Drug Abuse Patient Records regulations: The Federal rules restrict any use of the information to criminally investigate or prosecute any alcohol or drug abuse patient.[facility] HospitalIn the event this information is protected by the Federal Confidentiality of Alcohol and Drug Abuse Patient Records regulations: The Federal rules restrict any use of the information to criminally investigate or prosecute any alcohol or drug abuse patient.[facility] HospitalIn the event this information is protected by the Federal Confidentiality of Alcohol and Drug Abuse Patient Records regulations: The Federal rules restrict any use of the information to criminally investigate or prosecute any alcohol or drug abuse patient.[facility] HospitalIn the event this information is protected by the Federal Confidentiality of Alcohol and Drug Abuse Patient Records regulations: The Federal rules restrict any use of the information to criminally investigate or prosecute any alcohol or drug abuse patient.[facility] HospitalIn the event this information is protected by the Federal Confidentiality of Alcohol and Drug Abuse Patient Records regulations: The Federal rules restrict any use of the information to criminally investigate or prosecute any alcohol or drug abuse patient.[facility] HospitalIn the event this information is protected by the Federal Confidentiality of Alcohol and Drug Abuse Patient Records regulations: The Federal rules restrict any use of the information to criminally investigate or prosecute any alcohol or drug abuse patient.[facility] HospitalIn the event this information is protected by the Federal Confidentiality of Alcohol and Drug Abuse Patient Records regulations: The Federal rules restrict any use of the information to criminally investigate or prosecute any alcohol or drug abuse patient.[facility] HospitalIn the event this information is protected by the Federal Confidentiality of Alcohol and Drug Abuse Patient Records regulations: The Federal rules restrict any use of the information to criminally investigate or prosecute any alcohol or drug abuse patient.[facility] HospitalIn the event this information is protected by the Federal Confidentiality of Alcohol and Drug Abuse Patient Records regulations: The Federal rules restrict any use of the information to criminally investigate or prosecute any alcohol or drug abuse patient.[facility] HospitalIn the event this information is protected by the Federal Confidentiality of Alcohol and Drug Abuse Patient Records regulations: The Federal rules restrict any use of the information to criminally investigate or prosecute any alcohol or drug abuse patient.[facility] HospitalIn the event this information is protected by the Federal Confidentiality of Alcohol and Drug Abuse Patient Records regulations: The Federal rules restrict any use of the information to criminally investigate or prosecute any alcohol or drug abuse patient.[facility] HospitalIn the event this information is protected by the Federal Confidentiality of Alcohol and Drug Abuse Patient Records regulations: The Federal rules restrict any use of the information to criminally investigate or prosecute any alcohol or drug abuse patient.[facility] HospitalIn the event this information is protected by the Federal Confidentiality of Alcohol and Drug Abuse Patient Records regulations: The Federal rules restrict any use of the information to criminally investigate or prosecute any alcohol or drug abuse patient.[facility] HospitalIn the event this information is protected by the Federal Confidentiality of Alcohol and Drug Abuse Patient Records regulations: The Federal rules restrict any use of the information to criminally investigate or prosecute any alcohol or drug abuse patient.[facility] HospitalIn the event this information is protected by the Federal Confidentiality of Alcohol and Drug Abuse Patient Records regulations: The Federal rules restrict any use of the information to criminally investigate or prosecute any alcohol or drug abuse patient.[facility] HospitalIn the event this information is protected by the Federal Confidentiality of Alcohol and Drug Abuse Patient Records regulations: The Federal rules restrict any use of the information to criminally investigate or prosecute any alcohol or drug abuse patient.[facility] HospitalIn the event this information is protected by the Federal Confidentiality of Alcohol and Drug Abuse Patient Records regulations: The Federal rules restrict any use of the information to criminally investigate or prosecute any alcohol or drug abuse patient.[facility] HospitalIn the event this information is protected by the Federal Confidentiality of Alcohol and Drug Abuse Patient Records regulations: The Federal rules restrict any use of the information to criminally investigate or prosecute any alcohol or drug abuse patient.[facility] HospitalIn the event this information is protected by the Federal Confidentiality of Alcohol and Drug Abuse Patient Records regulations: The Federal rules restrict any use of the information to criminally investigate or prosecute any alcohol or drug abuse patient.[facility] HospitalIn the event this information is protected by the Federal Confidentiality of Alcohol and Drug Abuse Patient Records regulations: The Federal rules restrict any use of the information to criminally investigate or prosecute any alcohol or drug abuse patient.[facility] HospitalIn the event this information is protected by the Federal Confidentiality of Alcohol and Drug Abuse Patient Records regulations: The Federal rules restrict any use of the information to criminally investigate or prosecute any alcohol or drug abuse patient.[facility] HospitalIn the event this information is protected by the Federal Confidentiality of Alcohol and Drug Abuse Patient Records regulations: The Federal rules restrict any use of the information to criminally investigate or prosecute any alcohol or drug abuse patient.[facility] HospitalIn the event this information is protected by the Federal Confidentiality of Alcohol and Drug Abuse Patient Records regulations: The Federal rules restrict any use of the information to criminally investigate or prosecute any alcohol or drug abuse patient.[facility] HospitalIn the event this information is protected by the Federal Confidentiality of Alcohol and Drug Abuse Patient Records regulations: The Federal rules restrict any use of the information to criminally investigate or prosecute any alcohol or drug abuse patient.[facility] HospitalIn the event this information is protected by the Federal Confidentiality of Alcohol and Drug Abuse Patient Records regulations: The Federal rules restrict any use of the information to criminally investigate or prosecute any alcohol or drug abuse patient.[facility] HospitalIn the event this information is protected by the Federal Confidentiality of Alcohol and Drug Abuse Patient Records regulations: The Federal rules restrict any use of the information to criminally investigate or prosecute any alcohol or drug abuse patient.[facility] HospitalIn the event this information is protected by the Federal Confidentiality of Alcohol and Drug Abuse Patient Records regulations: The Federal rules restrict any use of the information to criminally investigate or prosecute any alcohol or drug abuse patient.[facility] HospitalIn the event this information is protected by the Federal Confidentiality of Alcohol and Drug Abuse Patient Records regulations: The Federal rules restrict any use of the information to criminally investigate or prosecute any alcohol or drug abuse patient.[facility] HospitalIn the event this information is protected by the Federal Confidentiality of Alcohol and Drug Abuse Patient Records regulations: The Federal rules restrict any use of the information to criminally investigate or prosecute any alcohol or drug abuse patient.[facility] HospitalIn the event this information is protected by the Federal Confidentiality of Alcohol and Drug Abuse Patient Records regulations: The Federal rules restrict any use of the information to criminally investigate or prosecute any alcohol or drug abuse patient.[facility] HospitalIn the event this information is protected by the Federal Confidentiality of Alcohol and Drug Abuse Patient Records regulations: The Federal rules restrict any use of the information to criminally investigate or prosecute any alcohol or drug abuse patient.[facility] HospitalIn the event this information is protected by the Federal Confidentiality of Alcohol and Drug Abuse Patient Records regulations: The Federal rules restrict any use of the information to criminally investigate or prosecute any alcohol or drug abuse patient.[facility] HospitalIn the event this information is protected by the Federal Confidentiality of Alcohol and Drug Abuse Patient Records regulations: The Federal rules restrict any use of the information to criminally investigate or prosecute any alcohol or drug abuse patient.[facility] HospitalIn the event this information is protected by the Federal Confidentiality of Alcohol and Drug Abuse Patient Records regulations: The Federal rules restrict any use of the information to criminally investigate or prosecute any alcohol or drug abuse patient.[facility] HospitalIn the event this information is protected by the Federal Confidentiality of Alcohol and Drug Abuse Patient Records regulations: The Federal rules restrict any use of the information to criminally investigate or prosecute any alcohol or drug abuse patient.[facility] HospitalIn the event this information is protected by the Federal Confidentiality of Alcohol and Drug Abuse Patient Records regulations: The Federal rules restrict any use of the information to criminally investigate or prosecute any alcohol or drug abuse patient.[facility] HospitalIn the event this information is protected by the Federal Confidentiality of Alcohol and Drug Abuse Patient Records regulations: The Federal rules restrict any use of the information to criminally investigate or prosecute any alcohol or drug abuse patient.[facility] HospitalIn the event this information is protected by the Federal Confidentiality of Alcohol and Drug Abuse Patient Records regulations: The Federal rules restrict any use of the information to criminally investigate or prosecute any alcohol or drug abuse patient.[facility] HospitalIn the event this information is protected by the Federal Confidentiality of Alcohol and Drug Abuse Patient Records regulations: The Federal rules restrict any use of the information to criminally investigate or prosecute any alcohol or drug abuse patient.[facility] HospitalIn the event this information is protected by the Federal Confidentiality of Alcohol and Drug Abuse Patient Records regulations: The Federal rules restrict any use of the information to criminally investigate or prosecute any alcohol or drug abuse patient.[facility] HospitalIn the event this information is protected by the Federal Confidentiality of Alcohol and Drug Abuse Patient Records regulations: The Federal rules restrict any use of the information to criminally investigate or prosecute any alcohol or drug abuse patient.[facility] HospitalIn the event this information is protected by the Federal Confidentiality of Alcohol and Drug Abuse Patient Records regulations: The Federal rules restrict any use of the information to criminally investigate or prosecute any alcohol or drug abuse patient.[facility] HospitalIn the event this information is protected by the Federal Confidentiality of Alcohol and Drug Abuse Patient Records regulations: The Federal rules restrict any use of the information to criminally investigate or prosecute any alcohol or drug abuse patient.[facility] HospitalIn the event this information is protected by the Federal Confidentiality of Alcohol and Drug Abuse Patient Records regulations: The Federal rules restrict any use of the information to criminally investigate or prosecute any alcohol or drug abuse patient.[facility] HospitalIn the event this information is protected by the Federal Confidentiality of Alcohol and Drug Abuse Patient Records regulations: The Federal rules restrict any use of the information to criminally investigate or prosecute any alcohol or drug abuse patient.[facility] HospitalIn the event this information is protected by the Federal Confidentiality of Alcohol and Drug Abuse Patient Records regulations: The Federal rules restrict any use of the information to criminally investigate or prosecute any alcohol or drug abuse patient.[facility] HospitalIn the event this information is protected by the Federal Confidentiality of Alcohol and Drug Abuse Patient Records regulations: The Federal rules restrict any use of the information to criminally investigate or prosecute any alcohol or drug abuse patient.[facility] HospitalIn the event this information is protected by the Federal Confidentiality of Alcohol and Drug Abuse Patient Records regulations: The Federal rules restrict any use of the information to criminally investigate or prosecute any alcohol or drug abuse patient.[facility] HospitalIn the event this information is protected by the Federal Confidentiality of Alcohol and Drug Abuse Patient Records regulations: The Federal rules restrict any use of the information to criminally investigate or prosecute any alcohol or drug abuse patient.[facility] HospitalIn the event this information is protected by the Federal Confidentiality of Alcohol and Drug Abuse Patient Records regulations: The Federal rules restrict any use of the information to criminally investigate or prosecute any alcohol or drug abuse patient.[facility] HospitalIn the event this information is protected by the Federal Confidentiality of Alcohol and Drug Abuse Patient Records regulations: The Federal rules restrict any use of the information to criminally investigate or prosecute any alcohol or drug abuse patient.[facility] HospitalIn the event this information is protected by the Federal Confidentiality of Alcohol and Drug Abuse Patient Records regulations: The Federal rules restrict any use of the information to criminally investigate or prosecute any alcohol or drug abuse patient.[facility] HospitalIn the event this information is protected by the Federal Confidentiality of Alcohol and Drug Abuse Patient Records regulations: The Federal rules restrict any use of the information to criminally investigate or prosecute any alcohol or drug abuse patient.[facility] HospitalIn the event this information is protected by the Federal Confidentiality of Alcohol and Drug Abuse Patient Records regulations: The Federal rules restrict any use of the information to criminally investigate or prosecute any alcohol or drug abuse patient.[facility] HospitalIn the event this information is protected by the Federal Confidentiality of Alcohol and Drug Abuse Patient Records regulations: The Federal rules restrict any use of the information to criminally investigate or prosecute any alcohol or drug abuse patient.[facility] HospitalIn the event this information is protected by the Federal Confidentiality of Alcohol and Drug Abuse Patient Records regulations: The Federal rules restrict any use of the information to criminally investigate or prosecute any alcohol or drug abuse patient.[facility] HospitalIn the event this information is protected by the Federal Confidentiality of Alcohol and Drug Abuse Patient Records regulations: The Federal rules restrict any use of the information to criminally investigate or prosecute any alcohol or drug abuse patient.[facility] HospitalIn the event this information is protected by the Federal Confidentiality of Alcohol and Drug Abuse Patient Records regulations: The Federal rules restrict any use of the information to criminally investigate or prosecute any alcohol or drug abuse patient.[facility] HospitalIn the event this information is protected by the Federal Confidentiality of Alcohol and Drug Abuse Patient Records regulations: The Federal rules restrict any use of the information to criminally investigate or prosecute any alcohol or drug abuse patient.[facility] HospitalIn the event this information is protected by the Federal Confidentiality of Alcohol and Drug Abuse Patient Records regulations: The Federal rules restrict any use of the information to criminally investigate or prosecute any alcohol or drug abuse patient.[facility] HospitalIn the event this information is protected by the Federal Confidentiality of Alcohol and Drug Abuse Patient Records regulations: The Federal rules restrict any use of the information to criminally investigate or prosecute any alcohol or drug abuse patient.[facility] HospitalIn the event this information is protected by the Federal Confidentiality of Alcohol and Drug Abuse Patient Records regulations: The Federal rules restrict any use of the information to criminally investigate or prosecute any alcohol or drug abuse patient.[facility] HospitalIn the event this information is protected by the Federal Confidentiality of Alcohol and Drug Abuse Patient Records regulations: The Federal rules restrict any use of the information to criminally investigate or prosecute any alcohol or drug abuse patient.[facility] HospitalIn the event this information is protected by the Federal Confidentiality of Alcohol and Drug Abuse Patient Records regulations: The Federal rules restrict any use of the information to criminally investigate or prosecute any alcohol or drug abuse patient.[facility] HospitalIn the event this information is protected by the Federal Confidentiality of Alcohol and Drug Abuse Patient Records regulations: The Federal rules restrict any use of the information to criminally investigate or prosecute any alcohol or drug abuse patient.[facility] HospitalIn the event this information is protected by the Federal Confidentiality of Alcohol and Drug Abuse Patient Records regulations: The Federal rules restrict any use of the information to criminally investigate or prosecute any alcohol or drug abuse patient.[facility] HospitalIn the event this information is protected by the Federal Confidentiality of Alcohol and Drug Abuse Patient Records regulations: The Federal rules restrict any use of the information to criminally investigate or prosecute any alcohol or drug abuse patient.[facility] HospitalIn the event this information is protected by the Federal Confidentiality of Alcohol and Drug Abuse Patient Records regulations: The Federal rules restrict any use of the information to criminally investigate or prosecute any alcohol or drug abuse patient.[facility] HospitalIn the event this information is protected by the Federal Confidentiality of Alcohol and Drug Abuse Patient Records regulations: The Federal rules restrict any use of the information to criminally investigate or prosecute any alcohol or drug abuse patient.[facility] HospitalIn the event this information is protected by the Federal Confidentiality of Alcohol and Drug Abuse Patient Records regulations: The Federal rules restrict any use of the information to criminally investigate or prosecute any alcohol or drug abuse patient.[facility] HospitalIn the event this information is protected by the Federal Confidentiality of Alcohol and Drug Abuse Patient Records regulations: The Federal rules restrict any use of the information to criminally investigate or prosecute any alcohol or drug abuse patient.[facility] Reason for Visit (unrecogniz ed section and content) Reason Comments Seizures Specialty Diagnoses / Procedures Referred By Rolf t Referred To Contact Neurology / EPILEPSY Diagnoses Well adult exam 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 go 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 license Procedures MYC SPECIALIST OFFICE VISIT Self Leanna Owens MD [address] [place] [address] Phone: tel: fax: Referral ID Status Reason Start Date Expiration Date Visits Re quested Visits Authorized [id number] Closed 12/20/2024 06/04/2025 1 1 Reason Comments [...] foot Procedures CONSULT TO RHEUM/IMMUN DISEASE OFFICE/OUTPATIENT [facility] 60-74 MINUTES Ray Yanez [address] [place] [address] Referral ID Status Reason Start Date Expiration Date V isits Requested Visits Authorized [id number] Closed PCP Requested Referral 09/30/2021 09/30/2022 1 [...] HIGH COMPLEX 45 MINS Lenora Caldwell PA-C [address] [id number] [facility] [place] [id number] Referral ID Status Reason Start Date Expiration Date V isits Requested Visits Authorized [id number] Closed Auto-Generate d Referral 10/26/2021 01/26/2022 1 1 Reason Comments Appointment Cancelled Reason Comments Dizziness and lightheaded star paul 3 weeks ago, states happens alot while working has to hussle and go up and down stairs and in and 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 of different 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 rooms Reason Comments Results Reason Comments Spirometry Specialty Diagnoses / Procedures Referred By Divineac t Referred To [facility] [place] Diagnoses Severe persistent asthma without complication Procedures NITRIC OXIDE, EXHALED NITRIC OXIDE GAS DETERMINATION Erika Gallagher MD [address] [address] Referral ID Status Reason Start Date Expiration Date V isits Requested Visits Authorized [id number] Closed Auto-Generate d Referral 02/03/2022 09/02/2022 1 1 Specialty Diagnoses / Procedures Referred By Rolf t Referred To [facility] [place] Diagnoses Severe persistent asthma without complication Procedures SPIROMETRY - BASELINE AND POST DILATOR BRNCDILAT RSPSE SPMTRY PRE&POST-BRNCDILAT ADMErika Canseco MD [address] [address] Referral ID Status Reason Start Date Expiration Date V isits Requested Visits Authorized [id number] Closed Auto-Generate d Referral 02/03/2022 09/02/2022 1 [...] Leanna Owens MD [address] [place] [id number] [facility] [place] [address] Referral ID Status Reason Start Date Expiration Date V isits Requested Visits Authorized [id number] Closed Auto-Generate d Referral 01/09/2023 03/10/2023 1 [...] Diagnoses physical Procedures physical Ranjit Azar DO [address] [place] [address] [facility] [address] [place] [address] Referral ID Status Reason Start Date Expiration Date Visits Requested Visits Authorized [id number] New Request OON/Self Pay Override 06/12/2024 09/20/2025 1 1 Reason Onset Date Comments Refill Request 01/21/2025 Reason Comments F/U 6 Month Specialty Diagnoses / Procedures Referred By Rolf t Referred To Contact [facility] Diagnoses physical Procedures physical Ranjit Azar DO [address] [place] [address] Phone: tel: fax: [facility] [place] [address] [place] [address] Phone: tel: Referral ID Status Reason Start Date Expiration Date Visits Requested Visits Authorized [id number] New Request OON/Self Pay Override 06/12/2024 09/20/2025 10 10 Reason Comments Insurance Authorization [place] [facility] Care Teams (unrecognized sec tion and content) [employer] Relationship Specialty Start Date End Date Ranjit Azar DO [address] [facility] [address] PCP - General Family Practice 07/12/12 [facility] [address] [facility] [address] Pharmacist Pharmacy 10/24/19 [facility] [address] [facility] [address] Pharmacist Pharmacy 12/29/20 [employer] Relationship Specialty Start Date End Date Ranjit Azar DO [address] [facility] [address] PCP - General Family Practice 07/12/12 [facility] [address] [facility] [address] Pharmacist Pharmacy 10/24/19 [facility] [address] [facility] [address] Pharmacist Pharmacy 12/29/20 [employer] Relationship Specialty Start Date End Date Ranjit Azar DO [address] [facility] [address] PCP - General Family Practice 07/12/12 [facility] [address] [place] [address] Pharmacist Pharmacy 10/24/19 Ani Carson, [facility] [address] [place] [address] Pharmacist Pharmacy 12/29/20 [employer] Relationship Specialty Start Date End Date Ranjit Azar, DO [address] [place] [address] PCP - General Family Practice 07/12/12 Patricia Tran, [facility] [address] [place] [address] Pharmacist Pharmacy 10/24/19 Ani Carson, [facility] [address] [place] [address] Pharmacist Pharmacy 12/29/20 Nancy Lopez, core rescuer Divorce Lawyer 09/08/21 10/08/21 [employer] Relationship Specialty Start Date End Date Ranjit Azar, DO [address] [place] [address] PCP - General Family Practice 07/12/12 Patricia Tran, [facility] [address] [place] [address] Pharmacist Pharmacy 10/24/19 Ani Carson, [facility] [address] [place] [address] Pharmacist Pharmacy 12/29/20 Nancy Lopez, core rescuer Divorce Lawyer 09/08/21 10/08/21 [employer] Relationship Specialty Start Date End Date Ranjit Azar, DO [address] [place] [address] PCP - General Family Practice 07/12/12 Patricia Tran, [facility] [address] [place] [address] Pharmacist Pharmacy 10/24/19 AlliAni, [facility] [address] [place] [address] Pharmacist Pharmacy 12/29/20 Nancy Lopez, core rescuer Divorce Lawyer 09/08/21 10/08/21 [employer] Relationship Specialty Start Date End Date Ranjit Azar, DO [address] [place] [address] PCP - General Family Practice 07/12/12 Jacobblake Patricia, [facility] [address] [place] [address] Pharmacist Pharmacy 10/24/19 Upland, Ani, [facility] [address] [place] [address] Pharmacist Pharmacy 12/29/20 Nancy Lopez, core rescuer Divorce Lawyer 09/08/21 09/20/21 [employer] Relationship Specialty Start Date End Date Ranjit Azar, DO [address] [place] [address] PCP - General Family Practice 07/12/12 JacobPatricia lozano, [facility] [address] [place] [address] Pharmacist Pharmacy 10/24/19 Alli, Ani, [facility] [address] [place] [address] Pharmacist Pharmacy 12/29/20 Nancy Lopez, core rescuer Divorce Lawyer 09/08/21 09/20/21 [employer] Relationship Specialty Start Date End Date Ranjit Azar, DO [address] [place] [address] PCP - General Family Practice 07/12/12 Robert Patricia, [facility] [address] [place] [address] Pharmacist Pharmacy 10/24/19 Ani Carson, [facility] [address] [place] [address] Pharmacist Pharmacy 12/29/20 [employer] Relationship Specialty Start Date End Date Ranjit Azar, DO [address] [place] [address] PCP - General Family Practice 07/12/12 Robert Reneemajor, [facility] [address] [place] [address] Pharmacist Pharmacy 10/24/19 Ani Carson, [facility] [address] [place] [address] Pharmacist Pharmacy 12/29/20 [employer] Relationship Specialty Start Date End Date Ranjit Azar, DO [address] [place] [address] PCP - General Family Practice 07/12/12 Patricia Tran, [facility] [address] [place] [address] Pharmacist Pharmacy 10/24/19 Ani Carson, [facility] [address] [place] [address] Pharmacist Pharmacy 12/29/20 [employer] Relationship Specialty Start Date End Date Ranjit Azar, DO [address] [place] [address] PCP - General Family Practice 07/12/12 Robert Reneemajor, [facility] [address] [place] [address] Pharmacist Pharmacy 10/24/19 Ani Carson, [facility] [address] [place] [address] Pharmacist Pharmacy 12/29/20 [employer] Relationship Specialty Start Date End Date Ranjit Azar, DO [address] [place] [address] PCP - General Family Practice 07/12/12 Patricia Tran, [facility] [address] [place] [address] Pharmacist Pharmacy 10/24/19 Kenya [facility] [address] [place] [address] Pharmacist Pharmacy 12/29/20 [employer] Relationship Specialty Start Date End Date Ranjit Azar, DO [address] [place] [address] PCP - General Family Practice 07/12/12 Jacobblake Patricia, [facility] [address] [place] [address] Pharmacist Pharmacy 10/24/19 Ani Carson, [facility] [address] [place] [address] Pharmacist Pharmacy 12/29/20 [employer] Relationship Specialty Start Date End Date Ranjit Azar, DO [address] [place] [address] PCP - General Family Practice 07/12/12 Patricia Tran, [facility] [address] [place] [address] Pharmacist Pharmacy 10/24/19 Ani Carson, [facility] [address] [place] [address] Pharmacist Pharmacy 12/29/20 [employer] Relationship Specialty Start Date End Date Ranjit Azar, DO [address] [place] [address] PCP - General Family Practice 07/12/12 JacobPatricia lozano, [facility] [address] [place] [address] Pharmacist Pharmacy 10/24/19 Alli, Ani, [facility] [address] [place] [address] Pharmacist Pharmacy 12/29/20 [employer] Relationship Specialty Start Date End Date Ranjit Azar, DO [address] [place] [address] PCP - General Family Practice 07/12/12 JacobPatricia lozano, [facility] [address] [place] [address] Pharmacist Pharmacy 10/24/19 Kenya Carsonily, [facility] [address] [place] [address] Pharmacist Pharmacy 12/29/20 [employer] Relationship Specialty Start Date End Date Ranjit Azar DO [address] [place] [address] PCP - General Family Practice 07/12/12 JacobPatricia lozano, [facility] [address] [place] [address] Pharmacist Pharmacy 10/24/19 Alli Ani, [facility] [address] [place] [address] Pharmacist Pharmacy 12/29/20 [employer] Relationship Specialty Start Date End Date Ranjit Azar DO [address] [place] [address] PCP - General Family Practice 07/12/12 RobertPatricia, [facility] [address] [place] [address] Pharmacist Pharmacy 10/24/19 Ani Carson, [facility] [address] [place] [address] Pharmacist Pharmacy 12/29/20 [employer] Relationship Specialty Start Date End Date Ranjit Azar, DO [address] [place] [address] PCP - General Family Practice 07/12/12 JacobPatricia lozano, [facility] [address] [place] [address] Pharmacist Pharmacy 10/24/19 Upland, Ani, [facility] [address] [place] [address] Pharmacist Pharmacy 12/29/20 [employer] Relationship Specialty Start Date End Date Ranjit Azar, DO [address] [place] [address] PCP - General Family Practice 07/12/12 JacobPatricia lozano, [facility] [address] [place] [address] Pharmacist Pharmacy 10/24/19 Alli, Ani, [facility] [address] [place] [address] Pharmacist Pharmacy 12/29/20 [employer] Relationship Specialty Start Date End Date Ranjit Azar, DO [address] [place] [address] PCP - General Family Practice 07/12/12 JacobPatricia lozano, [facility] [address] [place] [address] Pharmacist Pharmacy 10/24/19 Upland, Ani, [facility] [address] [place] [address] Pharmacist Pharmacy 12/29/20 [employer] Relationship Specialty Start Date End Date Ranjit Azar, DO [address] [place] [address] PCP - General Family Practice 07/12/12 Patricia Tran, [facility] [address] [place] [address] Pharmacist Pharmacy 10/24/19 Kenya Carsonily, [facility] [address] [place] [address] Pharmacist Pharmacy 12/29/20 [employer] Relationship Specialty Start Date End Date Ranjit Azar, DO [address] [place] [address] PCP - General Family Practice 07/12/12 Jacobblake Patricia, [facility] [address] [place] [address] Pharmacist Pharmacy 10/24/19 Kenya Carsonily, [facility] [address] [place] [address] Pharmacist Pharmacy 12/29/20 [employer] Relationship Specialty Start Date End Date Ranjit Azar, DO [address] [place] [address] PCP - General Family Practice 07/12/12 Patricia Tran, [facility] [address] [place] [address] Pharmacist Pharmacy 10/24/19 Ani Carson, [facility] [address] [place] [address] Pharmacist Pharmacy 12/29/20 [employer] Relationship Specialty Start Date End Date Ranjit Azar, DO [address] [place] [address] PCP - General Family Practice 07/12/12 Patricia Tran, [facility] [address] [place] [address] Pharmacist Pharmacy 10/24/19 Upland, Ani, [facility] [address] [place] [address] Pharmacist Pharmacy 12/29/20 [employer] Relationship Specialty Start Date End Date Ranjit Azar, DO [address] [place] [address] PCP - General Family Medicine 07/12/12 JacobPatricia lozano, [facility] [address] [place] [address] Pharmacist Pharmacy 10/24/19 Ani Carson, [facility] [address] [place] [address] Pharmacist Pharmacy 12/29/20 Nancy Lopez, core rescuer Divorce Lawyer 09/08/21 09/20/21 [employer] Relationship Specialty Start Date End Date Ranjit Azar, DO [address] [place] [address] PCP - General Family Medicine 07/12/12 RobertPatricia, [facility] [address] [place] [address] Pharmacist Pharmacy 10/24/19 Upland, Ani, [facility] [address] [place] [address] Pharmacist Pharmacy 12/29/20 [employer] Relationship Specialty Start Date End Date Ranjit Azar, DO [address] [place] [address] PCP - General Family Medicine 07/12/12 RobertReneemajor, [facility] [address] [place] [address] Pharmacist Pharmacy 10/24/19 Ani Carson, [facility] [address] [place] [address] Pharmacist Pharmacy 12/29/20 [employer] Relationship Specialty Start Date End Date Ranjit Azar, DO [address] [place] [address] PCP - General Family Medicine 07/12/12 Patricia Tran, [facility] [address] [place] [address] Pharmacist Pharmacy 10/24/19 Ani Carson, [facility] [address] [place] [address] Pharmacist Pharmacy 12/29/20 [employer] Relationship Specialty Start Date End Date Ranjit Azar, DO [address] [place] [address] PCP - General Family Medicine 07/12/12 Patricia Tran, [facility] [address] [place] [address] Pharmacist Pharmacy 10/24/19 Ani Carson, [facility] [address] [place] [address] Pharmacist Pharmacy 12/29/20 [employer] Relationship Specialty Start Date End Date Ranjit Azar, DO [address] [place] [address] PCP - General Family Medicine 07/12/12 Patricia Tran, [facility] [address] [place] [address] Pharmacist Pharmacy 10/24/19 Ani Carson, [facility] [address] [place] [address] Pharmacist Pharmacy 12/29/20 [employer] Relationship Specialty Start Date End Date Ranjit Azar DO [address] [place] [address] PCP - General Family Medicine 07/12/12 Patricia Tran, [facility] [address] [place] [address] Pharmacist Pharmacy 10/24/19 [facility] [address] [place] [address] Pharmacist Pharmacy 12/29/20 [employer] Relationship Specialty Start Date End Date Ranjit Azar DO [address] [place] [address] PCP - General Family Medicine 07/12/12 JacobPatricia lozano, [facility] [address] [place] [address] Pharmacist Pharmacy 10/24/19 Alli Ani, [facility] [address] [place] [address] Pharmacist Pharmacy 12/29/20 [employer] Relationship Specialty Start Date End Date Ranjit Azar DO [address] [place] [address] PCP - General Family Medicine 07/12/12 Patricia Tran, [facility] [address] [place] [address] Pharmacist Pharmacy 10/24/19 AlliAni, [facility] [address] [place] [address] Pharmacist Pharmacy 12/29/20 Team Status: Active Member Role Status Dates Dr. Ranjit Azar , DO Family Provider Active Dr. Ranjit Azar , DO Primary Care Provider Active Team Status: Inactive Member Role Status Dates Dr. Ranjit Azar DO Primary Care Provider Active Dr. Shakir Yates MD Emergency Provider Active [employer] Relationship Specialty Start Date End Date Ranjit Azar DO [address] [place] [address] PCP - General Family Medicine 07/12/12 Patricia Tran, [facility] [address] [place] [address] Pharmacist Pharmacy 10/24/19 Ani Carson, [facility] [address] [place] [address] Pharmacist Pharmacy 12/29/20 [employer] Relationship Specialty Start Date End Date Ranjit Azar DO [address] [place] [address] PCP - General Family Medicine 07/12/12 Patricia Tran, [facility] [address] [place] [address] Pharmacist Pharmacy 10/24/19 UplandAni, [facility] [address] [place] [address] Pharmacist Pharmacy 12/29/20 [employer] Relationship Specialty Start Date End Date Ranjit Azar DO [address] [place] [address] PCP - General Family Medicine 07/12/12 Patricia Tran, [facility] [address] [place] [address] Pharmacist Pharmacy 10/24/19 UplandAni, [facility] [address] [place] [address] Pharmacist Pharmacy 12/29/20 [employer] Relationship Specialty Start Date End Date Ranjit Azar DO [address] [place] [address] PCP - General Family Medicine 07/12/12 Patricia Tran, [facility] [address] [place] [address] Pharmacist Pharmacy 10/24/19 [place], [facility] [address] [place] [address] Pharmacist Pharmacy 12/29/20 [employer] Relationship Specialty Start Date End Date Ranjit Azar, [address] [place] [address] PCP - General Family Medicine 07/12/12 Patricia Tran, [facility] [address] [place] [address] Pharmacist Pharmacy 10/24/19 Alli Ani, [facility] [address] [place] [address] Pharmacist Pharmacy 12/29/20 [employer] Relationship Specialty Start Date End Date Ranjit Azar, [address] [place] [address] PCP - General Family Medicine 07/12/12 Patricia Tran, [facility] [address] [place] [address] Pharmacist Pharmacy 10/24/19 Alli, Ani, [facility] [address] [place] [address] Pharmacist Pharmacy 12/29/20 [employer] Relationship Specialty Start Date End Date Ranjit Azar, [address] [place] [address] PCP - General Family Medicine 07/12/12 Patricia Tran, [facility] [address] [place] [address] Pharmacist Pharmacy 10/24/19 Ani Carson, [facility] [address] [place] [address] Pharmacist Pharmacy 12/29/20 [employer] Relationship Specialty Start Date End Date Ranjit Azar DO [address] [place] [address] PCP - General Family Medicine 07/12/12 Patricia Tran, [facility] [address] [facility] [address] Pharmacist Pharmacy 10/24/19 Ani Carson, [facility] [address] [facility] [address] Pharmacist Pharmacy 12/29/20 [employer] Relationship Specialty Start Date End Date Ranjit Azar DO [address] [place] [address] PCP - General Family Medicine 07/12/12 Patricia Tran, [facility] [address] [place] [address] Pharmacist Pharmacy 10/24/19 Ani Carson, [facility] [address] [facility] [address] Pharmacist Pharmacy 12/29/20 Team Status: Inactive Member [...] Dr. Tyler Faulkner MD Attending Provider Active [employer] Relationship Specialty Start Date End Date Ranjit Azar DO [address] [place] [address] PCP - General Family Medicine 07/12/12 [facility] [address] [place] [address] Pharmacist Pharmacy 10/24/19 Ani Carson, [facility] [address] [place] [address] Pharmacist Pharmacy 12/29/20 [employer] Relationship Specialty Start Date End Date Ranjit Azar DO [address] [place] [address] PCP - General Family Medicine 07/12/12 [facility] [address] [place] [address] Pharmacist Pharmacy 10/24/19 Kenya Carsonily, [facility] [address] [place] [address] Pharmacist Pharmacy 12/29/20 [employer] Relationship Specialty Start Date End Date Ranjit Azar DO [address] [place] [address] PCP - General Family Medicine 07/12/12 Patricia Tran, [facility] [address] [place] [address] Pharmacist Pharmacy 10/24/19 Ani Carson, [facility] [address] [place] [address] Pharmacist Pharmacy 12/29/20 [employer] Relationship Specialty Start Date End Date Ranjit Azar DO [address] [place] [address] PCP - General Family Medicine 07/12/12 Patricia Tran, [facility] [address] [place] [address] Pharmacist Pharmacy 10/24/19 Ani Carson, [facility] [address] [place] [address] Pharmacist Pharmacy 12/29/20 [employer] Relationship Specialty Start Date End Date Ranjit Azar DO [address] [place] [address] PCP - General Family Medicine 07/12/12 Patricia Tran, [facility] [address] [place] [address] Pharmacist Pharmacy 10/24/19 Ani Carson, [facility] [address] [place] [address] Pharmacist Pharmacy 12/29/20 [employer] Relationship Specialty Start Date End Date Ranjit Azar DO [address] [place] [address] PCP - General Family Medicine 07/12/12 Patricia Tran, [facility] [address] [place] [address] Pharmacist Pharmacy 10/24/19 Ani Carson, [facility] [address] [place] [address] Pharmacist Pharmacy 12/29/20 [employer] Relationship Specialty Start Date End Date Ranjit Azar DO [address] [place] [address] PCP - General Family Medicine 07/12/12 Robert Patricia, [facility] [address] [place] [address] Pharmacist Pharmacy 10/24/19 Ani Carson, [facility] [address] [place] [address] Pharmacist Pharmacy 12/29/20 [employer] Relationship Specialty Start Date End Date Ranjit Azar DO [address] [place] [address] PCP - General Family Medicine 07/12/12 Ani Carson, [facility] [address] [place] [address] Pharmacist Pharmacy 12/29/20 [employer] Relationship Specialty Start Date End Date Ranjit Azar DO [address] [place] [address] PCP - General Family Medicine 07/12/12 Ani Carson, [facility] [address] [place] [address] Pharmacist Pharmacy 12/29/20 [employer] Relationship Specialty Start Date End Date Ranjit Azar DO [address] [place] [address] PCP - General Family Medicine 07/12/12 Patricia Tran, [facility] [address] [place] [address] Pharmacist Pharmacy 10/24/19 04/02/23 Ani Carson, [facility] [address] [place] [address] Pharmacist Pharmacy 12/29/20 [employer] Relationship Specialty Start Date End Date Ranjit Azar DO [address] [place] [address] PCP - General Family Medicine 07/12/12 Ani Carson, [facility] [address] [place] [address] Pharmacist Pharmacy 12/29/20 Team Status: Inactive Member Role Status Dates Dr. Ranjit Azar , Primary Care Provider Active Dr. Chavez Cameron , Emergency Provider Active [employer] Relationship Specialty Start Date End Date Ranjit Azar DO [address] [place] [address] PCP - General Family Medicine 07/12/12 Ani Carson, [facility] [address] [place] [address] Pharmacist Pharmacy 12/29/20 [employer] Relationship Specialty Start Date End Date Ranjit Azar DO [address] [place] [address] PCP - General Family Medicine 07/12/12 Ani Carson, [facility] [address] [place] [address] Pharmacist Pharmacy 12/29/20 [employer] Relationship Specialty Start Date End Date Ranjit Azar DO [address] [place] [address] PCP - General Family Medicine 07/12/12 Ani Carson, [facility] [address] [place] [address] Pharmacist Pharmacy 12/29/20 [employer] Relationship Specialty Start Date End Date Ranjit Azar DO [address] [place] [address] PCP - General Family Medicine 07/12/12 Ani Carson, [facility] [address] [place] [address] Pharmacist Pharmacy 12/29/20 [employer] Relationship Specialty Start Date End Date Ranjit Azar DO [address] [place] [address] PCP - General Family Medicine 07/12/12 Alli, Ani, [facility] [address] [place] [address] Pharmacist Pharmacy 12/29/20 [employer] Relationship Specialty Start Date End Date Ranjit Azar DO [address] [place] [address] PCP - General Family Medicine 07/12/12 [employer] Relationship Specialty Start Date End Date Ranjit Azar DO [address] [place] [address] PCP - General Family Medicine 07/12/12 [employer] Relationship Specialty Start Date End Date Ranjit Azar DO [address] [place] [address] PCP - General Family Medicine 07/12/12 Patricia Tran, [facility] [address] [place] [address] Pharmacist Pharmacy 10/24/19 04/02/23 Ani Carson, [facility] [address] [place], [place] [address] [phone] Pharmacist Pharmacy 12/29/20 08/13/23 [employer] Relationship Specialty Start Date End Date Ranjit Azar DO [address] [place] [address] PCP - General Family Medicine 07/12/12 Nicole Bass, CHARGE OUT CLERK.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 [address] [place] [address] [employer] Supervisor Family Medicine 05/12/24 Love Nguyen, CHARGE OUT CLERK.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 [address] [place] [address] [employer] Supervisor Family Medicine 05/12/24 [employer] Relationship Specialty Start Date End Date Ranjit Azar DO [address] [place] [address] PCP - General Family Medicine 07/12/12 Nicole Bass, CHARGE OUT CLERK.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 [address] [place] [address] [employer] Supervisor Family Medicine 05/12/24 Love Nguyen, CHARGE OUT CLERK.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 [address] [place] [address] [employer] Supervisor Family Medicine 05/12/24 [employer] Relationship Specialty Start Date End Date Ranjit Azar DO [address] [place] [address] PCP - General Family Medicine 07/12/12 Nicole Bass, CHARGE OUT CLERK.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 [address] [place] [address] [facility]24 [facility] CHARGE OUT CLERK.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 [address] [place] [address] [facility] 05/12/24 [employer] Relationship Specialty Start Date End Date Ranjit Azar DO [address] [place] [address] PCP - General Family Medicine 07/12/12 [facility] CHARGE OUT CLERK.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 [address] [place] [address] [facility] 05/12/24 Lance Pulido, CHARGE OUT CLERK.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 [address] [place] [address] [facility] 11/18/24 [employer] Relationship Specialty Start Date End Date Ranjit Azar DO [address] [place] [address] PCP - General Family Medicine 07/12/12 [facility] CHARGE OUT CLERK.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 [address] [place] [address] [facility] 05/12/24 Lance Pulido, CHARGE OUT CLERK.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 [address] [place] [address] [facility] 11/18/24 [employer] Relationship Specialty Start Date End Date Ranjit Azar DO [address] [facility], [place] [address] PCP - General Family Medicine 07/12/12 [facility], CHARGE OUT CLERK.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 [address] [place] [address] [employer] [facility] [facility] 05/12/24 Lance Pulido, CHARGE OUT CLERK.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 [address] [facility] [place] [address] [facility] 11/18/24 Team Status: Active Member Role/Relationship Status Dates Dr. Ranjit Azar DO Primary Care Provider Active Team Status: Inactive Member Role/Relationship Status Dates Javid Winter MD Emergency Provider Active Star t: January 21, 2025 End: January 21, 2025 Dr. Ranjit Azar DO Primary Care Provider Active Start: January 21, 2025 End: January 21, 2025 [employer] Relationship Specialty Start Date End Date Ranjit Azar DO [address] [place] [address] PCP - General Family Medicine 07/12/12 [facility], CHARGE OUT CLERK.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 [address] [place] [address] [facility] 05/12/24 Lance Pulido, CHARGE OUT CLERK.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 [address] [facility], [place] [address] [phone] [facility] 11/18/24 [employer] Relationship Specialty Start Date End Date Ranjit Azar DO [address] [place] [address] PCP - General Family Medicine 07/12/12 [facility], CHARGE OUT CLERK.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 [address] [place] [address] [facility] 05/12/24 MarcialLance, CHARGE OUT CLERK.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 [address] [place], [place] [address] [facility] 11/18/24 [employer] Relationship Specialty Start Date End Date Ranjit Azar DO [address] [place], [place] [address] PCP - [facility] 07/12/12 [facility] Love, CHARGE OUT CLERK.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 [address] [place], [place] [address] [facility] 05/12/24 [facility], CHARGE OUT CLERK.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 [address] [place], [place] [address] [facility] 11/18/24 Team Status: Active Member Role/Relationship Status [...] 2025 End: March 05, 2025 Dr. Timothy Choa DO Emergency Department Physician Active Start: March [...] BE BASED ON THE PRIMARY CLINICAL RECORDS. [facility]. provides no warranty or guarantee of the accuracy or completeness of information in this document.
[2025-05-23 19:44] LABS: Troponin T High Sens 2 HR 11 ng/L (<=22)
== END 2025-05-23 21:02 | disposition home or self-care (01) ==
PROVIDERS: Emergency Provider Emergency Medicine; PCP Student in an Organized Health Care Education/Training Program; Visit Provider Emergency Medicine
DX: R55 Syncope and collapse (principal); F25.9 Schizoaffective disorder, unspecified; G40.909 Epilepsy, unspecified, not intractable, without status epilepticus; E11.9 Type 2 diabetes mellitus without complications; I10 Essential (primary) hypertension; Z79.85 Long-term (current) use of injectable non-insulin antidiabetic drugs; Z79.899 Other long term (current) drug therapy; Z87.891 Personal history of nicotine dependence
CPT/HCPCS: 71046; 80048; 84484; 85025; 93005; 96374; 99285; A4216